=== PATIENT | female | born 1955 | race African-American/Black ===

== ENCOUNTER 2016-04-22 02:34 | Emergency (ER) | payer OTHER ==
[2016-04-22 02:51] VITALS: TEMP 97.4; BMI 34.3
--- NOTE | 2016-04-22 03:27 | PDOC ---
History of Present Illness - General Chief Complaint: Back Pain Stated Complaint: BACK PAIN Time Seen by Provider: 04/22/16 03:11 History Source: Patient Exam Limitations: No Limitations - History of Present Illness Initial Comments: 04/22/16 03:22 61yo Female patient presents to ED via EMS. Patient states she fell out of this this am, striking her back against a dresser. She denies head injury, neck injury/pain, or LOC. Patient states she take 2 types of pain medication due to history of back surgery in 2008. Patient reports she is on a Morphine pump and does not know the oral medication she currently takes for pain. Patient denies any other complaints at this time. Occurred: reports: just prior to arrival Severity: reports: mild Pain Location: reports: back Method of Injury: Yes: fall Modifying Factors: improves with: pain medication Loss of Consciousness: no loss of consciousness Associated Symptoms (Fall): denies symptoms Past History - Travel Traveled outside of the country in the last 30 days: No Close contact w/someone who was outside of country & ill: No - Past Medical History Allergies/Adverse Reactions: Allergies Allergy/AdvReac Type Severity Reaction Status Date / Time medroxyprogesterone acetate Allergy Severe stepehns Verified 04/22/16 02:42 [From Depo-Provera] josé syndrome amoxicillin trihydrate Allergy Verified 04/22/16 02:42 [From Augmentin] aspirin Allergy Verified 04/22/16 02:42 azithromycin [From Zithromax] Allergy Dewey Verified 04/22/16 02:42 José syndrome ciprofloxacin HCl Allergy Verified 04/22/16 02:42 [From Cipro] codeine [Codeine] Allergy Verified 04/22/16 02:42 Iodinated Contrast Media - Allergy Verified 04/22/16 02:42 Oral and [IV Dye, Iodine Containing Contrast ] ketorolac tromethamine Allergy Verified 04/22/16 02:42 [From Toradol] levofloxacin [From Levaquin] Allergy Verified 04/22/16 02:42 metronidazole [From Flagyl] Allergy Verified 04/22/16 02:42 nalbuphine HCl [From Nubain] Allergy CYANOSIS Verified 04/22/16 02:42 potassium clavulanate Allergy Verified 04/22/16 02:42 [From Augmentin] Shellfish Allergy Verified 04/22/16 02:42 sulfamethoxazole Allergy Verified 04/22/16 02:42 [From Bactrim] trimethoprim [From Bactrim] Allergy Verified 04/22/16 02:42 ivp dye Allergy Severe Swelling Uncoded 04/22/16 02:42 Home Medications: Ambulatory Orders Albuterol 0.083% Nebulizer Gisela [Ventolin 0.083% Nebulizer Soln -] 1 neb NEB Q4H PRN 07/04/14 Albuterol Sulfate Inhaler - [Ventolin HFA Inhaler -] 1 - 2 inh PO Q4H PRN Tiotropium [place] [Spiriva] 1.25 mcg IH DAILY 10/27/15 Metoclopramide HCl [Reglan] 10 mg PO AC #90 tablet 11/06/15 Docusate Sodium [Colace -] 200 mg PO DAILY capsule 02/21/16 Furosemide [Lasix -] 20 mg PO BIDLASIX tablet 02/21/16 Montelukast Na [Singulair -] 10 mg PO HS tablet 02/21/16 Pantoprazole Sodium [Protonix -] 40 mg PO DAILY tablet.ec 02/21/16 Polyethylene Glycol 3350 [Miralax 119 gm Btl -] 17 gm PO DAILY bottle 02/21/16 Pregabalin [Lyrica -] 75 mg PO BID capsule MDD 2 02/21/16 Anemia: Yes Asthma: Yes Cancer: No Cardiac Disorders: Yes CVA: No COPD: Yes CHF: Yes Dementia: No Diabetes: No GI Disorders: Yes (acid reflux, gastric pareisis) Disorders: Yes (Urinary retention) HTN: No Hypercholesterolemia: No Liver Disease: Yes (hep c) Suicide Attempt (Hx): No Seizures: No Thyroid Disease: No - Surgical History Abdominal Surgery: Yes Appendectomy: No Cardiac Surgery: Yes (PPM) Cholecystectomy: No Gastric Stapling: No Lung Surgery: No Neurologic Surgery: Yes (BACK SX WITH NERVE DAMAGE) Orthopedic Surgery: Yes (laminectomy x 2 in 2008 in [facility]) - Immunization History Immunization Up to Date: Yes - Psycho/Social/Smoking Cessation Hx Anxiety: No Suicidal Ideation: No Smoking Status: No Smoking History: Never smoked Have you smoked in the past 12 months: No Number of Cigarettes Smoked Daily: 0 Cigars Per Day: 0 Hx Alcohol Use: No Drug/Substance Use Hx: No Substance Use Type: None Hx Substance Use Treatment: No Trauma Specific PMHX - Complaint Specific PMHX Arthritis: No Back Injury: Yes Neck Injury: No Hx Sacro Iliac Joint Dysfunction: No Review of Systems - Review of Systems Able to Perform ROS?: Yes Is the patient limited Romanian proficient: No Constitutional: No: Chills, Fever Respiratory: No: Cough, Shortness of Breath Cardiac (ROS): No: Chest Pain ABD/GI: No: Abdominal Distended, Diarrhea, Nausea, Vomiting, Abdominal cramping : No: Dysuria, Flank Pain Musculoskeletal: Yes: Back Pain Integumentary: No: Bruising, Rash Neurological: No: Headache, Numbness, Tremors, Weakness, Dizziness Psychiatric: No: Stressors All Other Systems: Reviewed and Negative *Physical Exam - Vital Signs Last Vital Signs Temp Pulse Resp BP Pulse Ox 97.4 F L 85 18 128/87 100 04/22/16 02:45 04/22/16 02:45 04/22/16 02:45 04/22/16 02:45 04/22/16 02:45 - Physical Exam General Appearance: Yes: Appropriately Dressed, Other (Lethargic). No: Apparent Distress, Mild Distress, Moderate Distress, Severe Distress Neck: positive: Trachea midline, Supple Respiratory/Chest: positive: Lungs Clear, Normal Breath Sounds Cardiovascular: positive: Regular Rhythm, Regular Rate Gastrointestinal/Abdominal: positive: Normal Bowel Sounds, Soft. negative: Tender, Tenderness Lymphatic: negative: Adenopathy Musculoskeletal: positive: Normal Inspection, Other (L-S spinal tenderness on examination.). 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 PATIENT CURRENTLY HAS A MORPHINE PUMP ATTACHED AND IS REQUESTING DILAUDID FOR PAIN. PATIENT WAS TOLD SHE WILL NOT RECEIVE ANY DILAUDID, SHE WILL BE D/C'D TO HOME WITH F/U PCP. IF SYMPTOMS WORSEN OR SHE CHANGES HER MIND SHE MAY RETURN FOR X-RAYS. *DC/Admit/Observation/Transfer Diagnosis at time of Disposition: Back pain Qualifiers: Back pain location: low back pain Chronicity: acute Back pain laterality: bilateral Sciatica presence: without sciatica Qualified Code(s): M54.5 - Low back pain Fall Qualifiers: Encounter type: initial encounter Qualified Code(s): W19.XXXA - Unspecified fall, initial encounter - Discharge Dispostion Disposition: HOME Condition at time of disposition: Stable Admit: No - Patient Instructions Printed Discharge Instructions: How to Prevent Falls, DI for Low Back Pain Additional Instructions: FOLLOW UP WITH YOUR PRIMARY CARE PROVIDER OR PAIN MANAGEMENT TO MANAGE YOUR PAIN MEDICATIONS NEEDS. YOU MAY RETURN IF SYMPTOMS WORSEN OR YOU CHANGE YOUR MIND ABOUT X-RAY. TAKE YOUR MEDICATIONS PRESCRIBED. Print Language: MOROCCAN
[2016-04-22] MEDS ORDERED: KETOROLAC TROMETHAMINE 30 MG/1 ML VIAL IM ONE (04:34)
[2016-04-22] MEDS ORDERED: METHOCARBAMOL 500 MG TABLET PO ONE (04:34)
[2016-04-22] MEDS ORDERED: METHOCARBAMOL 500 MG TABLET ONE (04:46)
[2016-04-22] MEDS ORDERED: KETOROLAC TROMETHAMINE 30 MG/1 ML VIAL ONE (04:46)
[2016-04-22 09:04] VITALS: BP 139/79; PULSE 80
== END 2016-04-22 12:05 | disposition home or self-care (01) ==
LOC: JER 02:34
DX: M54.5 Low back pain (principal); W06.XXXA Fall from bed, initial encounter; Y93.89 Activity, other specified; Y92.032 Bedroom in apartment as the place of occurrence of the external cause; D64.9 Anemia, unspecified; J45.909 Unspecified asthma, uncomplicated; J44.9 Chronic obstructive pulmonary disease, unspecified; K21.9 Gastro-esophageal reflux disease without esophagitis; K31.84 Gastroparesis; B18.2 Chronic viral hepatitis C
CPT/HCPCS: 99281-25

== ENCOUNTER 2016-08-15 04:28 | Observation (INO) | payer OTHER ==
--- NOTE | 2016-08-15 04:51 | PDOC ---
History of Present Illness - General Stated Complaint: FALL Time Seen by Provider: 08/15/16 04:34 History Source: Patient Exam Limitations: No Limitations - History of Present Illness Initial Comments: 08/15/16 05:52 61-year-old female with a history of asthma, sarcoidosis, mitral valve prolapse , gastroparesis, IDDM, pacemaker/2013 presents to the emergency department with her son and complaining of a syncopal episode which caused pain to the top of her head and right side of her neck.. Patient states the last thing she remembers is sitting on a chair and watching television. Patient awoke on the bathroom floor and cannot recall how she got to the bathroom. Patient admits to positive LOC without dizziness, lightheadedness, chest pain, shortness of breath , abdominal pains, extremity numbness or tingling sensation. Patient states her head and neck pain is exacerbated on touch and alleviated at rest. Patient denies any other injuries. Timing/Duration: reports: 1 hour Past History - Past Medical History Allergies/Adverse Reactions: Allergies Allergy/AdvReac Type Severity Reaction Status Date / Time medroxyprogesterone acetate Allergy Severe stepehns Verified 08/15/16 05:07 [From Depo-Provera] josé syndrome amoxicillin trihydrate Allergy Verified 08/15/16 05:07 [From Augmentin] aspirin Allergy Verified 08/15/16 05:07 azithromycin [From Zithromax] Allergy Dewey Verified 08/15/16 05:07 José syndrome ciprofloxacin HCl Allergy Verified 08/15/16 05:07 [From Cipro] codeine [Codeine] Allergy Verified 08/15/16 05:07 Iodinated Contrast Media - Allergy Verified 08/15/16 05:07 Oral and [IV Dye, Iodine Containing Contrast ] ketorolac tromethamine Allergy Verified 08/15/16 05:07 [From Toradol] levofloxacin [From Levaquin] Allergy Verified 08/15/16 05:07 metronidazole [From Flagyl] Allergy Verified 08/15/16 05:07 nalbuphine HCl [From Nubain] Allergy CYANOSIS Verified 08/15/16 05:07 potassium clavulanate Allergy Verified 08/15/16 05:07 [From Augmentin] Shellfish Allergy Verified 08/15/16 05:07 sulfamethoxazole Allergy Verified 08/15/16 05:07 [From Bactrim] trimethoprim [From Bactrim] Allergy Verified 08/15/16 05:07 ivp dye Allergy Severe Swelling Uncoded 08/15/16 05:07 Home Medications: Ambulatory Orders Albuterol 0.083% Nebulizer Gisela [Ventolin 0.083% Nebulizer Soln -] 1 neb NEB Q4H PRN 07/04/14 Montelukast Na [Singulair -] 10 mg PO HS tablet 02/21/16 Pantoprazole Sodium [Protonix -] 40 mg PO DAILY tablet.ec 02/21/16 Pregabalin [Lyrica -] 75 mg PO BID capsule MDD 2 02/21/16 Furosemide [Lasix -] 40 mg PO BID 08/15/16 Insulin Glargine,Hum.rec.anlog [Basaglar Kwikpen U-100] 20 unit SQ HS 08/15/16 Insulin Lispro [Humalog] See Protocol SQ TID 08/15/16 Prednisone [Deltasone] 10 mg PO BID 08/15/16 Tiotropium [place] [Spiriva] 1 inh IH DAILY 08/15/16 Anemia: Yes Asthma: Yes Cancer: No Cardiac Disorders: Yes CVA: No COPD: Yes CHF: Yes Dementia: No Diabetes: No GI Disorders: Yes (acid reflux, gastric pareisis) Disorders: Yes (Urinary retention) HTN: No Hypercholesterolemia: No Liver Disease: Yes (hep c) Suicide Attempt (Hx): No Seizures: No Thyroid Disease: No - Surgical History Abdominal Surgery: Yes Appendectomy: No Cardiac Surgery: Yes (PPM) Cholecystectomy: No Gastric Stapling: No Lung Surgery: No Neurologic Surgery: Yes (BACK SX WITH NERVE DAMAGE) Orthopedic Surgery: Yes (laminectomy x 2 in 2008 in [facility]) - Immunization History Immunization Up to Date: Yes - Psycho/Social/Smoking Cessation Hx Anxiety: No Suicidal Ideation: No Smoking Status: No Smoking History: Never smoked Have you smoked in the past 12 months: No Number of Cigarettes Smoked Daily: 0 Cigars Per Day: 0 Hx Alcohol Use: No Drug/Substance Use Hx: No Substance Use Type: None Hx Substance Use Treatment: No Review of Systems - Review of Systems Able to Perform ROS?: Yes Comments:: 08/15/16 05:54 CONSTITUTIONAL: +LOC Absent: fever, chills, diaphoresis, generalized weakness, malaise, loss of appetite HEENT: Absent: rhinorrhea, nasal congestion, throat pain, throat swelling, difficulty swallowing, mouth swelling, ear pain, eye pain, visual Changes CARDIOVASCULAR: Absent: chest pain, loss of consciousness, palpitations, irregular heart rate, peripheral edema RESPIRATORY: Absent: cough, shortness of breath, dyspnea with exertion, orthopnea, wheezing, stridor, hemoptysis GASTROINTESTINAL: Absent: abdominal pain, abdominal distension, nausea, vomiting, diarrhea, constipation, melena, hematochezia GENITOURINARY: Absent: dysuria, frequency, urgency, hesitancy, hematuria, flank pain, genital pain MUSCULOSKELETAL: +right neck pain Absent: myalgia, arthralgia, joint swelling SKIN: Absent: rash, itching, pallor HEMATOLOGIC/IMMUNOLOGIC: Absent: easy bleeding, easy bruising, lymphadenopathy, frequent infections ENDOCRINE: Absent: unexplained weight gain, unexplained weight loss, heat intolerance, cold intolerance NEUROLOGIC: Pain to top of her head Absent: focal weakness or paresthesias, dizziness, unsteady gait, seizure, mental status changes, bladder or bowel incontinence PSYCHIATRIC: Absent: anxiety, depression, suicidal or homicidal ideation, hallucinations. 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 Awake and alert. No acute distress. HEENT: Normocephalic, atraumatic. PERRLA, EOMI. No conjunctival pallor. Sclera are non- icteric. Moist mucous membranes. Oropharynx is clear. NECK: Supple. Full ROM. No JVD. Carotid pulses 2+ and symmetric, without bruits. No thyromegaly. No lymphadenopathy. CARDIOVASCULAR: Regular rate and rhythm. No murmurs, rubs, or gallops. Distal pulses are 2+ and symmetric. PULMONARY: No evidence of respiratory distress. Lungs clear to auscultation bilaterally. No wheezing, rales or rhonchi. ABDOMINAL: Soft. Non-tender. Non-distended. No rebound or guarding. No organomegaly. Normoactive bowel sounds. MUSCULOSKELETAL Normal range of motion at all joints. No bony deformities or tenderness. No CVA tenderness. EXTREMITIES: No cyanosis. No clubbing. No edema. No calf tenderness. SKIN: Warm and dry. Normal capillary refill. No rashes. No jaundice. NEUROLOGICAL: Alert, awake, appropriate. Cranial nerves 2-12 intact. No deficits to light touch and temperature in face, upper extremities and lower extremities. No motor deficits in the in face, upper extremities and lower extremities. Normoreflexic in the upper and lower extremities. Normal speech. Toes are down- going bilaterally. Gait is normal without ataxia. PSYCHIATRIC: Cooperative. Good eye contact. Appropriate mood and affect. Heart Score/ECG Review - History History: Slightly suspicious - Electrocardiogram EKG: Normal - Age Age: >/= 65 - Risk Factors Risk Factors Heart Score: Yes Hx Diabetes, Yes Hx Obesity Based on the list above the patient has:: 1-2 risk factors - Troponin Troponin: </= normal limit - Score Heart Score - Total: 3 ED Treatment Course - LABORATORY CBC & Chemistry Diagram: 08/16/16 06:00 08/16/16 06:00 *DC/Admit/Observation/Transfer Diagnosis at time of Disposition: Syncope Qualifiers: Syncope type: unspecified Qualified Code(s): R55 - Syncope and collapse - Discharge Dispostion Disposition: HOME Condition at time of disposition: Improved
[2016-08-15 04:59] VITALS: BMI 35.7
[2016-08-15] MEDS ORDERED: SODIUM CHLORIDE 1,000 ML IV SCH (05:45)
[2016-08-15 06:25] LABS: BASOPHIL 0.4 % (0-2.0); EOSINOPHIL 0.1 % (0-4.5); MCH 24.1 pg (25.7-33.7); MCHC 31.3 g/dl (32.0-36.0); MEAN CELL VOLUME 77.1 fl (80-96); MEAN PLT VOLUME 7.6 fl (7.5-11.1); NEUTROPHILS 73.8 % (42.8-82.8); PLATELET COUNT 433 K/MM3 (134-434); RDW 18.9 % (11.6-15.6); WHITE BLOOD COUNT 8.1 K/mm3 (4.0-10.0)
[2016-08-15 06:40] LABS: ANION GAP 8 (8-16); BILIRUBIN,TOTAL 0.2 mg/dL (0.2-1.0); CALCIUM 8.4 mg/dL (8.5-10.1); CO2 33 mmol/L (21-32); CREATININE 0.8 mg/dL (0.55-1.02); GLUCOSE,RANDOM 232 mg/dL (74-106); SGOT/AST 14 U/L (15-37); SGPT/ALT 15 U/L (12-78); TOT PROT 7.8 g/dl (6.4-8.2)
[2016-08-15 06:42] LABS: ALK PHOS 74 U/L (45-117)
[2016-08-15 06:49] LABS: TROPONIN I < 0.02 ng/ml (0.00-0.05)
--- NOTE | 2016-08-15 07:26 | PDOC ---
*Physical Exam - Vital Signs Last Vital Signs Temp Pulse Resp BP Pulse Ox 98.2 F 86 20 126/76 100 08/15/16 07:01 08/15/16 07:01 08/15/16 07:01 08/15/16 07:01 08/15/16 07:01 ED Treatment Course - LABORATORY CBC & Chemistry Diagram: 08/15/16 06:00 08/15/16 06:00 - ADDITIONAL ORDERS Additional order review: Laboratory Results 08/15/16 08/15/16 06:00 06:00 Sodium 135 L Potassium 3.6 Chloride 94 L Carbon Dioxide 33 H Anion Gap 8 BUN 16 D Creatinine 0.8 Creat Clearance w eGFR > 60 Random Glucose 232 H D Calcium 8.4 L Total Bilirubin 0.2 D AST 14 L D ALT 15 D Alkaline Phosphatase 74 Creatine Kinase 58 Troponin I < 0.02 Total Protein 7.8 Albumin 3.0 L 08/15/16 06:00 RBC 4.08 MCV 77.1 L MCHC 31.3 L RDW 18.9 H MPV 7.6 Neutrophils % 73.8 D Lymphocytes % 21.1 D Monocytes % 4.6 Eosinophils % 0.1 Basophils % 0.4 Medical Decision Making - Medical Decision Making 08/15/16 07:25 Patient received in sign out from ALEXANDRU [email or web address] status post syncopal episode now complaining of headache. Patient pending imaging and will be admitted to hospitalist once labs and results are reviewed. 08/15/16 09:24 CT of the neck shows no acute findings including fracture or misalignment. Patient does have degenerative changes with loss of height superior endplate of T3. CT of the head shows no hemorrhage or acute intracranial findings. Will consult hospitalist to discuss admission. 08/15/16 09:34 Left EJ placed on first attempt without difficulty. #[address] and flushed without difficulty. Case discussed with hospitalist Dr. Iyer and will admit to telemetry observation status. *DC/Admit/Observation/Transfer Diagnosis at time of Disposition: Syncope Qualifiers: Syncope type: unspecified Qualified Code(s): R55 - Syncope and collapse - Discharge Dispostion Admit: Yes
--- NOTE | 2016-08-15 09:16 | EKG ---
Test Reason : Blood Pressure : / mmHG Vent. Rate : 073 BPM Atrial Rate : 073 BPM P-R Int : 138 ms QRS Dur : 066 ms QT Int : 374 ms P-R-T Axes : 036 000 040 degrees QTc Int : 412 ms NORMAL SINUS RHYTHM CANNOT RULE OUT ANTERIOR INFARCT , AGE UNDETERMINED ABNORMAL ECG WHEN COMPARED WITH ECG OF 21-MAR-2016 17:09, NO SIGNIFICANT CHANGE WAS FOUND Confirmed by EDUAR LINDER MD ([id number]) on 08/15/2016 9:16:02 AM Referred By: Confirmed By:EDUAR LINDER MD
--- NOTE | 2016-08-15 11:11 | HP ---
CHIEF COMPLAINT: Fall PCP: Ace Sorensen HISTORY OF PRESENT ILLNESS: 61 F with signficant PMHx of sarcoidosis with lung and cardiac involvement, previous syncope, VT s/p AICD(2012), chronic diastolic CHF and IDDM presents to ED s/p syncopal episode. She states that her daughter called EMS after she was found screaming in her bathroom last night. She states she remembers lying in bed watching TV then the next thing she remembers is waking up in bathroom.Does not know if she hit her head but did report headache and neck pain.Recently discharged from [facility] for treatment of UTI. She denies CP, SOB, urinary or bowel incontinence. abd. pain, palpitations, N/V. ER course was notable for: (1) EKG shows no change from previous. (2) CXR and chest CT ordered show atelectic changes of LLL. (3)Head CT (-) for IC bleed or acute pathology. Recent Travel: NO PAST MEDICAL HISTORY: cardiac and pulm sarcoidosis , VT s/p AICD in 2012, asthma , D CHf , Hep C, Dewey José, , chronic back pain, LLE weakness, IDDM , OSVALDO and GERD PAST SURGICAL HISTORY: L2-S1 fusion, tubal ligation, hysterectomy Social History: Smoking: Denies Alcohol: Denies Drugs: Denies Family History: Allergies medroxyprogesterone acetate [From Depo-Provera] Allergy (Severe, Verified 05:07) stepehns josé syndrome amoxicillin trihydrate [From Augmentin] Allergy (Verified 08/15/16 05:07) aspirin Allergy (Verified 08/15/16 05:07) azithromycin [From Zithromax] Allergy (Verified 08/15/16 05:07) Dewey José syndrome ciprofloxacin HCl [From Cipro] Allergy (Verified 08/15/16 05:07) codeine [Codeine] Allergy (Verified 08/15/16 05:07) Iodinated Contrast Media - Oral and [IV Dye, Iodine Containing Contrast ] Allergy (Verified 08/15/16 05:07) ketorolac tromethamine [From Toradol] Allergy (Verified 08/15/16 05:07) levofloxacin [From Levaquin] Allergy (Verified 08/15/16 05:07) metronidazole [From Flagyl] Allergy (Verified 08/15/16 05:07) nalbuphine HCl [From Nubain] Allergy (Verified 08/15/16 05:07) CYANOSIS potassium clavulanate [From Augmentin] Allergy (Verified 08/15/16 05:07) Shellfish Allergy (Verified 08/15/16 05:07) sulfamethoxazole [From Bactrim] Allergy (Verified 08/15/16 05:07) trimethoprim [From Bactrim] Allergy (Verified 08/15/16 05:07) ivp dye Allergy (Severe, Uncoded 08/15/16 05:07) Swelling HOME MEDICATIONS: Home Medications Medication Instructions Recorded Albuterol 0.083% Nebulizer Gisela 1 neb NEB Q4H PRN 07/04/14 [Ventolin 0.083% Nebulizer Soln -] Montelukast Na [Singulair -] 10 mg PO HS tablet 02/21/16 Pantoprazole Sodium [Protonix -] 40 mg PO DAILY tablet.ec 02/21/16 Pregabalin [Lyrica -] 75 mg PO BID capsule MDD 2 02/21/16 Furosemide [Lasix -] 40 mg PO BID 08/15/16 Insulin Glargine,Hum.rec.anlog 20 unit SQ HS 08/15/16 [Basaglar Kwikpen U-100] Insulin Lispro [Humalog] 2 unit SQ TID 08/15/16 Prednisone [Deltasone] 20 mg PO BID 08/15/16 Tiotropium [place] [Spiriva] 1 inh IH DAILY 08/15/16 REVIEW OF SYSTEMS CONSTITUTIONAL: Absent: fever, chills, diaphoresis, generalized weakness, malaise, loss of appetite, weight change HEENT: Absent: rhinorrhea, nasal congestion, throat pain, throat swelling, difficulty swallowing, mouth swelling, ear pain, eye pain, visual changes CARDIOVASCULAR: Absent: chest pain, syncope, palpitations, irregular heart rate, lightheadedness , peripheral edema RESPIRATORY: Absent: cough, shortness of breath, dyspnea with exertion, orthopnea, wheezing, stridor, hemoptysis GASTROINTESTINAL: Absent: abdominal pain, abdominal distension, nausea, vomiting, diarrhea, constipation, melena, hematochezia GENITOURINARY: Absent: dysuria, frequency, urgency, hesitancy, hematuria, flank pain, genital pain MUSCULOSKELETAL: back pain, neck pain Absent: myalgia, arthralgia, joint swelling, SKIN: Absent: rash, itching, pallor HEMATOLOGIC/IMMUNOLOGIC: Absent: easy bleeding, easy bruising, lymphadenopathy, frequent infections ENDOCRINE: Absent: unexplained weight gain, unexplained weight loss, heat intolerance, cold intolerance NEUROLOGIC: headache, focal weakness Absent: or paresthesias, dizziness, unsteady gait, seizure, mental status changes, bladder or bowel incontinence PSYCHIATRIC: Absent: anxiety, depression, suicidal or homicidal ideation, hallucinations. PHYSICAL EXAMINATION Vital Signs - 24 hr 08/15/16 08/15/16 08/15/16 04:35 04:53 07:01 Temperature 98 F 98.2 F Pulse Rate 86 Pulse Rate [ 86 Left] Respiratory 21 20 Rate Blood Pressure 148/95 Blood Pressure 126/76 [Left Arm] O2 Sat by Pulse 99 99 100 Oximetry (%) GENERAL:AAO x3 in no acute distress. HEAD: NC/AT EYES: Pupils equal, round and reactive to light, extraocular movements intact, sclera anicteric, conjunctiva clear. No lid lag. EARS, NOSE, THROAT: Dry mucous membranes. NECK: Normal range of motion, supple without lymphadenopathy, JVD, or masses. LUNGS: Breath sounds equal, clear to auscultation bilaterally. No wheezes, and no crackles. No accessory muscle use. HEART: Regular rate and rhythm, normal S1 and S2 without murmur, rub or gallop. ABDOMEN: Soft, nontender, not distended, normoactive bowel sounds, no guarding, no rebound, no masses. No hepatomegaly or splenomegaly. MUSCULOSKELETAL: Normal range of motion at all joints. No bony deformities or tenderness. No CVA tenderness. UPPER EXTREMITIES: 2+ pulses, warm, well-perfused. No cyanosis. No clubbing. No peripheral edema. LOWER EXTREMITIES: 2+ pulses, warm, well-perfused. No calf tenderness.Bilateral 2+ pitting edema NEUROLOGICAL: Cranial nerves II-XII intact. Normal speech.gait not observed. PSYCHIATRIC: depressed mood and affect. SKIN: Warm, dry, normal turgor, no rashes or lesions noted, normal capillary refill. Laboratory Results - last 24 hr 08/15/16 08/15/16 08/15/16 06:00 06:00 06:00 WBC 8.1 RBC 4.08 Hgb 9.8 L Hct 31.5 L MCV 77.1 L MCHC 31.3 L RDW 18.9 H Plt Count 433 MPV 7.6 Neutrophils % 73.8 D Lymphocytes % 21.1 D Monocytes % 4.6 Eosinophils % 0.1 Basophils % 0.4 Sodium 135 L Potassium 3.6 Chloride 94 L Carbon Dioxide 33 H Anion Gap 8 BUN 16 D Creatinine 0.8 Creat Clearance w eGFR > 60 Random Glucose 232 H D Calcium 8.4 L Total Bilirubin 0.2 D AST 14 L D ALT 15 D Alkaline Phosphatase 74 Creatine Kinase 58 Troponin I < 0.02 Total Protein 7.8 Albumin 3.0 L IMAGING: * CT/CERVICAL SPINE CT W/O CONTR History provided: Fall. Sequential axial images were obtained through the cervical spine from the base of the skull to the thoracic inlet. Coronal and sagittal reconstructed images were also performed. There is no evidence of fracture, subluxation or acute bony abnormalities. There are mild degenerative arthritic changes present, most marked at C4-5 and C5-6. The spinal canal is widely patent with no evidence of cord compromise. IMPRESSION: Mild degenerative arthritis with no fracture or acute pathology. Reported By: Trevor Jeffery MD 08/15/16 2575 * SPINE-THORACIC Thoracic spine: Unspecified cervical spine fracture AP view shows an overlying brace, pacemaker, large heart, weak inspiration with central increased markings but grossly intact thoracic spine. The lateral view shows a normal thoracic kyphosis with no sign of blastic or lytic changes and some minimal vertebral wedging of a midthoracic level. If symptoms persist, further imaging may be of help. Reported By: Mat Price MD 06/12/16 7628 * CT/HEAD CT WITHOUT CONTRAST HISTORY PROVIDED: Fall TECHNIQUE: Sequential axial images were obtained from the base of the skull to the vertex. There is no evidence of acute intracranial hemorrhage, mass lesions or infarctions. There is a mild degree of diffuse cerebral atrophy with sulcal widening and ventricular dilatation. Hypodense changes are noted throughout the periventricular white matter consistent with chronic, small vessel ischemia. There is no evidence of fracture or acute bony abnormalities. IMPRESSION: No evidence of acute intracranial pathology. Reported By: Trevor Jeffery MD 09/26 4768 ASSESSMENT/PLAN: 61 F with signficant PMHx of sarcoidosis with lung and cardiac involvement, previous syncope, VT s/p AICD(2012), chronic diastolic CHF and IDDM admitted to telemetry for w/u of syncopal episode. Problem List - Problem (1) Syncope Assessment/Plan: * Concern for cardiac cause of syncopal episode. vaso-vagal and less likely seizure. * Will admit to tele * Interrogate AICD by [employer]. * I have obtained recent ECHO done on recent Alexi admission. * Consulted cardiology Dr. Mederos. * Neuro checks Q4H- assess for facial droop, asymmetry, slurred speech, and decreased muscle tone. (2) Dysuria Assessment/Plan: * UA sent if positive will send for Cultures and treat. (3) Diastolic CHF Assessment/Plan: * No signs of acute exacerbation (no jvd and clear lungs.) * Will continue with home dose of Lasix * I/O's and daily weights. * Low sodium diet. (4) Asthma Assessment/Plan: * Well controlled at this time * standing and prn duonebs. * continue inh. * Aclidinium [place] (Tudorza -) 1 puff IH BID EYAL * Albuterol Sulfate (Ventolin 0.5% -) 1 amp NEB Q4H PRN * Montelukast Sodium (Singulair -) 10 mg PO HS EYAL (5) Sarcoidosis (6) IDDM (insulin dependent diabetes mellitus) Assessment/Plan: * Continue Levemir and ISS * BGM ACHS * ADA diet (7) DVT prophylaxis Assessment/Plan: * LE edema will order LE doppler. * Lovenox 40mg SQ daily. Visit type - Emergency Visit Emergency Visit: Yes ED Registration Date: 08/15/16 Care time: The patient presented to the Emergency Department on the above date and was hospitalized for further evaluation of their emergent condition. - New Patient This patient is new to me today: Yes Date on this admission: 08/15/16 - Critical Care Critical Care patient: No
[2016-08-15] MEDS ORDERED: ALBUTEROL SO4 0.083% IH SOL 2.5 MG/3 ML VIAL.NEB. NEB PRN (11:54)
[2016-08-15] MEDS ORDERED: ALBUTEROL SO4 2.5/IPRATROPIUM 0.5 INH SOL 3 ML VIAL.NEB. NEB PRN (11:55)
--- NOTE | 2016-08-15 12:08 | PN ---
Teaching Attending Note Name of Resident: Lorenzo Cutler ATTENDING PHYSICIAN STATEMENT I saw and evaluated the patient. I reviewed the resident's note and discussed the case with the resident. I agree with the resident's findings and plan as documented. SUBJECTIVE: CC: syncope HPI: 61 y/o lady with h/o cardiac and pulm sarcoidosis , VT s/p AICD in 2013, h /o Seizures, asthma , D CHf , Hep C, Dewey José, L2-S1 fusion, chronic back pain, LLE weakness, IDDM, OSVALDO and GERD who presented with a syncope. last night , she was watching TV, then she woke up in bathroom screaming, she denied any confusion after syncope, denied any CP, SOB, palpitations, urinary incontinence or tongue pain. was not able to get up and daughter had to help, she reported neck pain and head pain. She had a syncopal episode 2 months ago , which was also similar ( sudden onset , while sitting ) reports LLE edema > R , with no worsening, has been compliant withher lasix. reports dysuria x 2 days . was admitted to [facility] 1 month ago for UTI. OBJECTIVE: VS reviewed. NAD, NC< AT , no JVD, MMM. EOMI. CV: RRR, no MRG , no JVD Lungs : CTAB Abd : soft, TTP in epigastric area , with no rebound tenderness or guarding , ND , NL BS Ext: b/l LE edema L > R . L leg with erythema and increased warmth . per pt chronic . DP 2+ b/l MS: TTP over R lower ribs . TTP over R/L paraspinal muscles neuro : symmetric face , no facial droop, NL facial sensation , EOMI, round equal pupils , reactive to light , tongue and uvula at mid line . Strength 5/5 in upper extremities proximally and distally. LLE : she refused to move ( " I can't move it ") . RLE : 4/5 hip flexion and knee flexion and extension. 5/5 plantar flexion and dorsiflexion reflexes : 2+ biceps b/l. 1+ knee jerk and ankle jerk b/l decreased sensatio to light touch on R foot and leg. absent sensatio to light touch on L foot and leg ASSESSMENT AND PLAN: 61 y/o lady with h/o cardiac and pulm sarcoidosis , VT s/p AICD in 2013, h/o Seizures, asthma , D CHf , Hep C, Dewey Kumar, L2-S1 fusion, chronic back pain, LLE weakness, IDDM, OSVALDO and GERD who presented with a syncope 1- Syncope: DDx is broad but given pt h/o cardiac sarcoidosis , and h/o ventricular arrhythmias, as well as the sudden onset of event there is concern fro cardiac arrhythmias as a cause. of course , Vaso-vagal syncope ( since in bathroom) , and orthostatic hypotension ( confirmed on resident's exam) are in picture less likely seizure - tele - interrogation of her AICD - obtain echo report from [facility] ( 1 month ago) - will consult card - repeat trop - EKG reviewed, and last echo 10/25 reviewed ( Nl EF, pulm HTN) - neuro checks 2- dysuria : will check UA . if positive , will check urine cx, 3- Fall : trauma w/u did not show neck or head Fx or bleed - check R Rib xray , due to tenderness on exam. 4- H/O Chronic D CHF: patient does not seem to be in acute heart failure . Has clear lungs, no JVD, and chronic LE edema ( improved per her) . Cxray has poor inspiratory effect. - cont her lasix 40 BID po - monitor BP as it was slightly elevated in ER. will repeat . - obtain echo report . 5- h/o Sarcoidosis with lung and cardiac involvement: cont her home prednisone 6- h/o Ashtma: not active . cont inhalers 7- IDDM: cont levemir and SSI 8- check US of LLE to r/o DVT DVT px :lovenox
[2016-08-15] MEDS ORDERED: ALBUTEROL SO4 0.5 % INH SOLN 2.5 MG/0.5 ML VIAL.NEB. NEB PRN (12:15)
[2016-08-15 12:32] LABS: URINE APPEARANCE CLEAR; URINE BILIRUBIN NEGATIVE (NEGATIVE); URINE BLOOD NEGATIVE (NEGATIVE); URINE COLOR LTYELLOW; URINE GLUCOSE (UA) NEGATIVE (NEGATIVE); URINE KETONE NEGATIVE (NEGATIVE); URINE LEUK ESTERASE NEGATIVE (NEGATIVE); URINE NITRITE NEGATIVE (NEGATIVE); URINE PROTEIN NEGATIVE (NEGATIVE); URINE UROBILINOGEN NEGATIVE E.U./dl (0.2-1.0)
[2016-08-15 13:42] LABS: TROPONIN I < 0.02 ng/ml (0.00-0.05)
[2016-08-15] MEDS ORDERED: ACETAMINOPHEN 500 MG TABLET (FP) PO ONE (13:46)
[2016-08-15] MEDS ORDERED: morphine CARPU-JECT 4 MG/1 ML DISP.SYRIN IVPUSH ONE (14:15)
[2016-08-15] MEDS ORDERED: FUROSEMIDE 40 MG TABLET (FP) ONE (14:36)
[2016-08-15] MEDS ORDERED: morphine CARPU-JECT 4 MG/1 ML DISP.SYRIN ONE (14:36)
[2016-08-15] MEDS: FUROSEMIDE 20 MG TABLET (FP) PO SCH (14:37)
[2016-08-15] MEDS: PREGABALIN 75 MG CAPSULE PO SCH (21:17)
[2016-08-15] MEDS: predniSONE 10 MG TABLET (UD) PO SCH (21:18)
[2016-08-15] MEDS ORDERED: MONTELUKAST NA 10 MG TABLET PO SCH (22:00)
[2016-08-15] MEDS ORDERED: HEPARIN NA (PORCINE) 5,000 UNITS/ML 1ML VIAL SQ SCH (22:00)
[2016-08-15] MEDS: ACLIDINIUM BROMIDE 400 MCG/INH AERO.POWD IH SCH (22:36)
--- NOTE | 2016-08-16 00:05 | CON.CARD ---
Consult Consult Specialty:: cardiology Reason for Consultation:: syncope - History of Present Illness Chief Complaint: Presently feels tired (chronic) History of Present Illness: 61-year-old black female with a history of asthma, sarcoidosis, mitral valve prolapse, gastroparesis, IDDM, pacemaker/2013, s/p spinal fusion, ?wheelchair bound after accident years ago, chronic bilateral L>R LE swelling, presents to the emergency department with her son and complaining of a syncopal episode which caused pain to the top of her head and right side of her neck. Patient states the last thing she remembers is sitting on a chair and watching television. Patient awoke on the bathroom floor and cannot recall how she got to the bathroom. Patient admits to LOC without dizziness, lightheadedness, chest pain, shortness of breath, abdominal pains, extremity numbness or tingling sensation. Patient states her head and neck pain is exacerbated on touch and alleviated at rest. Patient denies any other injuries. - History Source History Provided By: Patient, Medical Record Limitations to Obtaining History: Poor Historian - Past Medical History Cardio/Vascular: Yes: CHF, Other (Sarcoidosis with cardiac involvement and history of VT s/p ICD) Pulmonary: Yes: Asthma, Sleep Apnea, Other (Sarcoidosis with cardiac involvement ) Gastrointestinal: Yes: GERD Hepatobiliary: Yes: Hepatitis C Reproductive: Yes: Postmenopausal ...: No Heme/Onc: Yes: Anemia Infectious Disease: Yes: Other (HEP C) Musculoskeletal: Yes: Chronic low back pain (spinal cord stimulator) Rheumatology: Yes: Sarcoidosis Additional Medical History: in wheelchair after accident many years ago. Spinal cord stimulator. Multiple drug allergies. History of Ferrer José syndrome - Past Surgical History Past Surgical History: Yes: Permanent Pacemaker (ICD. ) - Alcohol/Substance Use Hx Alcohol Use: No - Smoking History Smoking history: Never smoked Have you smoked in the past 12 months: No Aproximately how many cigarettes per day: 0 - Social History ADL: Family Assistance History of Recent Travel: No Home Medications - Allergies Allergies/Adverse Reactions: Allergies Allergy/AdvReac Type Severity Reaction Status Date / Time medroxyprogesterone acetate Allergy Severe stepehns Verified 08/15/16 05:07 [From Depo-Provera] josé syndrome amoxicillin trihydrate Allergy Verified 08/15/16 05:07 [From Augmentin] aspirin Allergy Verified 08/15/16 05:07 azithromycin [From Zithromax] Allergy Dewey Verified 08/15/16 05:07 José syndrome ciprofloxacin HCl Allergy Verified 08/15/16 05:07 [From Cipro] codeine [Codeine] Allergy Verified 08/15/16 05:07 Iodinated Contrast Media - Allergy Verified 08/15/16 05:07 Oral and [IV Dye, Iodine Containing Contrast ] ketorolac tromethamine Allergy Verified 08/15/16 05:07 [From Toradol] levofloxacin [From Levaquin] Allergy Verified 08/15/16 05:07 metronidazole [From Flagyl] Allergy Verified 08/15/16 05:07 nalbuphine HCl [From Nubain] Allergy CYANOSIS Verified 08/15/16 05:07 potassium clavulanate Allergy Verified 08/15/16 05:07 [From Augmentin] Shellfish Allergy Verified 08/15/16 05:07 sulfamethoxazole Allergy Verified 08/15/16 05:07 [From Bactrim] trimethoprim [From Bactrim] Allergy Verified 08/15/16 05:07 ivp dye Allergy Severe Swelling Uncoded 08/15/16 05:07 - Home Medications Home Medications: Ambulatory Orders Albuterol 0.083% Nebulizer Gisela [Ventolin 0.083% Nebulizer Soln -] 1 neb NEB Q4H PRN 07/04/14 Montelukast Na [Singulair -] 10 mg PO HS tablet 02/21/16 Pantoprazole Sodium [Protonix -] 40 mg PO DAILY tablet.ec 02/21/16 Pregabalin [Lyrica -] 75 mg PO BID capsule MDD 2 02/21/16 Furosemide [Lasix -] 40 mg PO BID 08/15/16 Insulin Glargine,Hum.rec.anlog [Basaglar Kwikpen U-100] 20 unit SQ HS 08/15/16 Insulin Lispro [Humalog] 2 unit SQ TID 08/15/16 Prednisone [Deltasone] 10 mg PO BID 08/15/16 Tiotropium [place] [Spiriva] 1 inh IH DAILY 08/15/16 Family Disease History - Family Disease History Family History: Denies Review of Systems - Review of Systems Constitutional: reports: Lethargy Eyes: reports: No Symptoms HENT: reports: No Symptoms Neck: reports: No Symptoms Cardiovascular: reports: No Symptoms Respiratory: reports: No Symptoms Gastrointestinal: reports: No Symptoms Genitourinary: reports: No Symptoms Breasts: reports: No Symptoms Reported Musculoskeletal: reports: Decreased ROM Integumentary: reports: No Symptoms Neurological: reports: Syncope Psychiatric: reports: Altered Sleep Pattern, Anxiety - Risk Factors Known Risk Factors: Yes: Age, Physical Inactivity Vital Signs: Vital Signs Temperature 98 F 08/15/16 15:18 Pulse Rate 71 08/15/16 15:18 Respiratory Rate 18 08/15/16 18:14 Blood Pressure 116/74 08/15/16 15:18 O2 Sat by Pulse Oximetry (%) 99 08/15/16 18:14 Constitutional: Yes: Calm Eyes: Yes: WNL HENT: Yes: WNL Neck: Yes: WNL Respiratory: Yes: Regular Gastrointestinal: Yes: Soft Renal/: No: Anuria Cardiovascular: Yes: Regular Rate and Rhythm JVD: No Carotid Bruit: No PMI: Non-Displaced Heart Sounds: Yes: S1, S2 Extremities: Yes: Cool Edema: Yes Edema: LLE: 2+, RLE: 1+ Peripheral Pulses WNL: Yes Integumentary: Yes: WNL Neurological: Yes: Alert, Oriented, Weakness Psychiatric: Yes: Alert, Oriented - Other Data Labs, Other Data: Troponin, BNP 08/15/16 13:00 Troponin I < 0.02 Troponin, BNP 08/15/16 13:00 Troponin I < 0.02 Ejection Fraction %: LVEF > or = 40 % Imaging - Results Chest X-ray: Image Reviewed (chronic congestive changes) EKG: Image Reviewed (NSR) Problem List - Problems (1) Dysuria Code(s): R30.0 - DYSURIA (2) IDDM (insulin dependent diabetes mellitus) Code(s): E11.9 - TYPE 2 DIABETES MELLITUS WITHOUT COMPLICATIONS Z79.4 - MCC (CURRENT) USE OF INSULIN (3) Syncope Assessment/Plan: orthostatic vital signs. carotid artery US. TNI <0.02 x 2. Hx VT-->ICD 2013. R/o cardiac arrhythmia as etiology of syncope. ICD interrogation. Maintain electrolytes WNL. On furosemide; avoid excessive dehydration. Code(s): R55 - SYNCOPE AND COLLAPSE Qualifiers: Syncope type: unspecified Qualified Code(s): R55 - Syncope and collapse (4) Acute on chronic diastolic (congestive) heart failure Assessment/Plan: ECHO: normal LVEF Code(s): I50.33 - ACUTE ON CHRONIC DIASTOLIC (CONGESTIVE) HEART FAILURE (5) COPD (chronic obstructive pulmonary disease) Code(s): J44.9 - CHRONIC OBSTRUCTIVE PULMONARY DISEASE, UNSPECIFIED Qualifiers : COPD type: COPD with acute exacerbation Qualified Code(s): J44.1 - Chronic obstructive pulmonary disease with (acute) exacerbation (6) Cellulitis Code(s): L03.90 - CELLULITIS, UNSPECIFIED (7) ICD (implantable cardioverter-defibrillator), dual, in situ Code(s): Z95.810 - PRESENCE OF AUTOMATIC (IMPLANTABLE) CARDIAC DEFIBRILLATOR (8) Obstructive sleep apnea Code(s): G47.33 - OBSTRUCTIVE SLEEP APNEA (ADULT) (PEDIATRIC) (9) SOB (shortness of breath) Code(s): R06.02 - SHORTNESS OF BREATH (10) Sarcoidosis of lung Code(s): D86.0 - SARCOIDOSIS OF LUNG
[2016-08-16] MEDS ORDERED: morphine CARPU-JECT 2 MG/1 ML DISP.SYRIN IVPUSH ONE (01:00)
[2016-08-16] MEDS: FUROSEMIDE 20 MG TABLET (FP) PO SCH ×2 (06:16→14:18)
[2016-08-16 08:20] LABS: CALCIUM 8.8 mg/dL (8.5-10.1); COCKROFT - GAULT 96.764; CREATININE 0.8 mg/dL (0.55-1.02); MAGNESIUM 1.7 mg/dL (1.8-2.4); PHOSPHOROUS 4.9 mg/dL (2.5-4.9)
[2016-08-16 08:21] LABS: BASOPHIL 0.9 % (0-2.0); EOSINOPHIL 0.5 % (0-4.5); MCH 24.7 pg (25.7-33.7); MCHC 31.6 g/dl (32.0-36.0); MEAN PLT VOLUME 7.7 fl (7.5-11.1); NEUTROPHILS 74.7 % (42.8-82.8); PLATELET COUNT 415 K/MM3 (134-434); RDW 18.9 % (11.6-15.6); WHITE BLOOD COUNT 8.2 K/mm3 (4.0-10.0)
[2016-08-16] MEDS ORDERED: PT OWN MED DRAWER 7, Y5N ONE ×2 (09:30→10:22)
[2016-08-16] MEDS: predniSONE 10 MG TABLET (UD) PO SCH (09:35)
[2016-08-16] MEDS: PREGABALIN 75 MG CAPSULE PO SCH (09:35)
[2016-08-16] MEDS ORDERED: ENOXAPARIN NA (PORCINE) 40 MG/0.4 ML DISP.SYRIN SQ SCH (10:00)
[2016-08-16] MEDS ORDERED: PANTOPRAZOLE 40 MG TABLET (FP) PO SCH (10:00)
--- NOTE | 2016-08-16 10:28 | PN ---
Progress Note, Physician Chief Complaint: Pt OOB in chair; no dizziness, chest pain, or dyspnea; had a mild headache overnight. History of Present Illness: 61-year-old black female with a history of "asthma" (did not start until late adulthood; ?related to sarcoid), "cardiac and pulmonary"sarcoidosis, mitral valve prolapse, gastroparesis, IDDM, pacemaker/2013, s/p spinal fusion, ? wheelchair bound after accident years ago, chronic bilateral L>R LE swelling, presents to the emergency department with her son and complaining of a syncopal episode which caused pain to the top of her head and right side of her neck. Patient states the last thing she remembers is sitting on a chair and watching television. Patient awoke on the bathroom floor and cannot recall how she got to the bathroom. Patient admits to LOC without dizziness, lightheadedness, chest pain, shortness of breath, abdominal pains, extremity numbness or tingling sensation. Patient states her head and neck pain is exacerbated on touch and alleviated at rest. Patient denies any other injuries. - Current Medication List Current Medications: Active Medications Aclidinium [place] (Tudorza -) 1 puff IH BID [facility] Last Admin: 08/15/16 22:36 Dose: Not Given Albuterol Sulfate (Ventolin 0.5% -) 1 amp NEB Q4H PRN PRN Reason: SHORT OF BREATH/WHEEZING Enoxaparin Sodium (Lovenox -) 40 mg SQ DAILY [facility] Last Admin: 08/16/16 09:36 Dose: 40 mg Furosemide (Lasix -) 40 mg PO BID@0600,1400 [facility] Last Admin: 08/16/16 06:16 Dose: 40 mg Montelukast Sodium (Singulair -) 10 mg PO HS [facility] Last Admin: 08/15/16 21:18 Dose: 10 mg Pantoprazole Sodium (Protonix -) 40 mg PO DAILY [facility] Last Admin: 08/16/16 09:36 Dose: 40 mg Prednisone (Deltasone -) 10 mg PO BID [facility] Last Admin: 08/16/16 09:35 Dose: 10 mg Pregabalin (Lyrica -) 75 mg PO BID [facility] Last Admin: 08/16/16 09:35 Dose: 75 mg - Objective Vital Signs: Vital Signs Temperature 98.4 F 08/16/16 06:00 Pulse Rate 84 08/16/16 06:00 Respiratory Rate 20 08/16/16 06:00 Blood Pressure 134/82 08/16/16 06:00 O2 Sat by Pulse Oximetry (%) 99 08/15/16 22:00 Constitutional: Yes: No Distress, Anxious Eyes: Yes: WNL Labs: CBC, BMP 08/16/16 06:00 08/16/16 06:00 Problem List - Problems (1) Dysuria Code(s): R30.0 - DYSURIA (2) IDDM (insulin dependent diabetes mellitus) Code(s): E11.9 - TYPE 2 DIABETES MELLITUS WITHOUT COMPLICATIONS Z79.4 - [employer] (CURRENT) USE OF INSULIN (3) Syncope Code(s): R55 - SYNCOPE AND COLLAPSE Qualifiers: Syncope type: unspecified Qualified Code(s): R55 - Syncope and collapse (4) Acute on chronic diastolic (congestive) heart failure Code(s): I50.33 - ACUTE ON CHRONIC DIASTOLIC (CONGESTIVE) HEART FAILURE (5) COPD (chronic obstructive pulmonary disease) Code(s): J44.9 - CHRONIC OBSTRUCTIVE PULMONARY DISEASE, UNSPECIFIED Qualifiers : COPD type: COPD with acute exacerbation Qualified Code(s): J44.1 - Chronic obstructive pulmonary disease with (acute) exacerbation (6) Cellulitis Code(s): L03.90 - CELLULITIS, UNSPECIFIED (7) ICD (implantable cardioverter-defibrillator), dual, in situ Code(s): Z95.810 - PRESENCE OF AUTOMATIC (IMPLANTABLE) CARDIAC DEFIBRILLATOR (8) Obstructive sleep apnea Code(s): G47.33 - OBSTRUCTIVE SLEEP APNEA (ADULT) (PEDIATRIC) (9) SOB (shortness of breath) Code(s): R06.02 - SHORTNESS OF BREATH (10) Sarcoidosis of lung Code(s): D86.0 - SARCOIDOSIS OF LUNG
[2016-08-16] MEDS: ACLIDINIUM BROMIDE 400 MCG/INH AERO.POWD IH SCH (14:18)
[2016-08-16 14:52] VITALS: BP 136/83; PULSE 88; TEMP 98.9
--- NOTE | 2016-08-16 15:08 | DS ---
Physical Examination Vital Signs: Vital Signs Temperature 98.9 F 08/16/16 14:00 Pulse Rate 88 08/16/16 14:00 Respiratory Rate 18 08/16/16 14:00 Blood Pressure 136/83 08/16/16 14:00 O2 Sat by Pulse Oximetry (%) 96 08/16/16 07:30 Findings/Remarks: denies any fever or chills, denies any SOB. has no complaints today NAD, NC, AT , no JVD, MMM. EOMI. CV: RRR, no MRG , no JVD Lungs : CTAB Ext: improved b/l LE edema L > R DP 2+ b/l Labs: CBC, BMP 08/16/16 06:00 08/16/16 06:00 Discharge Summary Reason For Visit: SYNCOPE Current Active Problems DVT prophylaxis (Acute) Dysuria (Acute) Syncope (Acute) Diastolic CHF (Chronic) IDDM (insulin dependent diabetes mellitus) (Chronic) Hospital Course: Dc Diagnoses : 1- Syncope 2- fall Hospital course 61 y/o lady with h/o cardiac and pulm sarcoidosis , [place] s/p AICD in 2012, h/o Seizures, asthma , D CHf , Hep C, Dewey José, L2-S1 fusion, chronic back pain, LLE weakness, IDDM, OSVALDO and GERD who presented with a syncope. at presentation the Pt had nl labs, and nl vitals ( but positive orthostatic VS ) . her EKG did not show any acute ischemic changes and her neuro exam was non focal . DDx of her syncope was broad but given pt h/o cardiac sarcoidosis , and h/o ventricular arrhythmias, as well as the sudden onset of event there is concern for cardiac arrhythmias as a cause. So she was monitored on tele which did not show any events ( PVCs ) Probably orthostatic hypotension is what caused her sx. her ICD was interrogated , and reviewed by Dr. Jean . She is to follow as outpt she complained of dysuria , but UA was clean She was continued on her home lasix, and her edema improved . 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 take your lasix as prescribed . call MD with any concerns or questions Referrals: Ace Sorensen [Primary Care Provider] - 1 Week Disposition: VNS/HOME HEALTH CARE - Home Medications Comprehensive Discharge Medication List: Ambulatory Orders Albuterol 0.083% Nebulizer Gisela [Ventolin 0.083% Nebulizer Soln -] 1 neb NEB Q4H PRN 07/04/14 Montelukast Na [Singulair -] 10 mg PO HS tablet 02/21/16 Pantoprazole Sodium [Protonix -] 40 mg PO DAILY tablet.ec 02/21/16 Pregabalin [Lyrica -] 75 mg PO BID capsule MDD 2 02/21/16 Furosemide [Lasix -] 40 mg PO BID 08/15/16 Insulin Glargine,Hum.rec.anlog [Colinaglzia Ortiz U-100] 20 unit SQ HS 08/15/16 Insulin Lispro [Humalog] See Protocol SQ TID 08/15/16 Prednisone [Deltasone] 10 mg PO BID 08/15/16 Tiotropium Thatcher [Spiriva] 1 inh IH DAILY 08/15/16 This patient is new to me today: Yes Date on this admission: 08/16/16 Emergency Visit: No Critical Care patient: No - Discharge Referral Referred to [facility] No
[2016-08-16] MEDS ORDERED: INSULIN (NOVOLOG) ASPART 100 UNITS/ML 10ML VIAL SQ SCH (16:30)
== END 2016-08-16 17:40 | disposition home health service (06) ==
LOC: JER 04:28 → JERBED 09:37 → J4S 14:50
PROVIDERS: ADMIT Internal Medicine; ATTEND Internal Medicine
PROC: 3E033NZ Introduction of Analgesics, Hypnotics, Sedatives into Peripheral Vein, Percutaneous Approach (ICD-10-PCS; principal; 2016-08-15)
PROC: 3E013VG Introduction of Insulin into Subcutaneous Tissue, Percutaneous Approach (ICD-10-PCS; 2016-08-15)
PROC: 3E013GC Introduction of Other Therapeutic Substance into Subcutaneous Tissue, Percutaneous Approach (ICD-10-PCS; 2016-08-15)
PROC: 3E0F7GC Introduction of Other Therapeutic Substance into Respiratory Tract, Via Natural or Artificial Opening (ICD-10-PCS; 2016-08-15)
DX: R55 Syncope and collapse (principal); D86.89 Sarcoidosis of other sites; I47.2 Ventricular tachycardia; Z95.810 Presence of automatic (implantable) cardiac defibrillator; I50.33 Acute on chronic diastolic (congestive) heart failure; E11.9 Type 2 diabetes mellitus without complications; Z79.4 Long term (current) use of insulin; J45.909 Unspecified asthma, uncomplicated; J44.9 Chronic obstructive pulmonary disease, unspecified; I34.1 Nonrheumatic mitral (valve) prolapse; B18.2 Chronic viral hepatitis C; K21.9 Gastro-esophageal reflux disease without esophagitis; E66.9 Obesity, unspecified; Z68.35 Body mass index [BMI] 35.0-35.9, adult; Z88.1 Allergy status to other antibiotic agents; Z91.041 Radiographic dye allergy status; Z88.2 Allergy status to sulfonamides; M54.5 Low back pain; G89.29 Other chronic pain; G47.33 Obstructive sleep apnea (adult) (pediatric); Z98.1 Arthrodesis status; Z90.710 Acquired absence of both cervix and uterus; Z88.6 Allergy status to analgesic agent; Z91.81 History of falling; R30.0 Dysuria; L03.90 Cellulitis, unspecified; R06.02 Shortness of breath
CPT/HCPCS: 36415; 70450-TC; 71010-TC; 71111-TC; 72125-TC; 80048; 80053; 81003; 82550; 83735; 84100; 84484; 85025; 93005; 93010; 93971-TC; 99284-25; G0378

== ENCOUNTER 2016-09-04 12:33 | Emergency (ER) | payer OTHER ==
[2016-09-04 12:40] VITALS: BP 140/57; PULSE 81; TEMP 98.6; BMI 35.5
--- NOTE | 2016-09-04 15:49 | PDOC ---
History of Present Illness - General Chief Complaint: Injury Stated Complaint: O2 DEPNDANT FALL/ BUMP ON HEAD Time Seen by Provider: 09/04/16 14:27 History Source: Patient - History of Present Illness Occurred: reports: this morning Pain Location: reports: face Method of Injury: Yes: fall Past History - Past Medical History Allergies/Adverse Reactions: Allergies Allergy/AdvReac Type Severity Reaction Status Date / Time medroxyprogesterone acetate Allergy Severe stepehns Verified 09/04/16 12:35 [From Depo-Provera] josé syndrome amoxicillin trihydrate Allergy Verified 09/04/16 12:35 [From Augmentin] aspirin Allergy Verified 09/04/16 12:35 azithromycin [From Zithromax] Allergy Dewey Verified 09/04/16 12:35 José syndrome ciprofloxacin HCl Allergy Verified 09/04/16 12:35 [From Cipro] codeine [Codeine] Allergy Verified 09/04/16 12:35 Iodinated Contrast Media - Allergy Verified 09/04/16 12:35 Oral and [IV Dye, Iodine Containing Contrast ] ketorolac tromethamine Allergy Verified 09/04/16 12:35 [From Toradol] levofloxacin [From Levaquin] Allergy Verified 09/04/16 12:35 metronidazole [From Flagyl] Allergy Verified 09/04/16 12:35 nalbuphine HCl [From Nubain] Allergy CYANOSIS Verified 09/04/16 12:35 potassium clavulanate Allergy Verified 09/04/16 12:35 [From Augmentin] Shellfish Allergy Verified 09/04/16 12:35 sulfamethoxazole Allergy Verified 09/04/16 12:35 [From Bactrim] trimethoprim [From Bactrim] Allergy Verified 09/04/16 12:35 ivp dye Allergy Severe Swelling Uncoded 09/04/16 12:35 Home Medications: Ambulatory Orders Albuterol 0.083% Nebulizer Gisela [Ventolin 0.083% Nebulizer Soln -] 1 neb NEB Q4H PRN 07/04/14 Montelukast Na [Singulair -] 10 mg PO HS tablet 02/21/16 Pantoprazole Sodium [Protonix -] 40 mg PO DAILY tablet.ec 02/21/16 Pregabalin [Lyrica -] 75 mg PO BID capsule MDD 2 02/21/16 Furosemide [Lasix -] 40 mg PO BID 08/15/16 Insulin Glargine,Hum.rec.anlog [Basaglar Kwikpen U-100] 20 unit SQ HS 08/15/16 Insulin Lispro [Humalog] See Protocol SQ TID 08/15/16 Prednisone [Deltasone] 10 mg PO BID 08/15/16 Tiotropium Baldwin [Spiriva] 1 inh IH DAILY 08/15/16 Anemia: Yes Asthma: Yes Cancer: No Cardiac Disorders: Yes CVA: No COPD: Yes CHF: Yes Dementia: No Diabetes: Yes GI Disorders: Yes (acid reflux, gastric pareisis) Disorders: Yes (Urinary retention) HTN: No Hypercholesterolemia: No Liver Disease: Yes (hep c) Suicide Attempt (Hx): No Seizures: No Thyroid Disease: No - Surgical History Abdominal Surgery: Yes Appendectomy: No Cardiac Surgery: Yes (PPM) Cholecystectomy: No Gastric Stapling: No Lung Surgery: No Neurologic Surgery: Yes (BACK SX WITH NERVE DAMAGE) Orthopedic Surgery: Yes (laminectomy x 2 in 2008 in [facility]) - Immunization History Immunization Up to Date: Yes - Psycho/Social/Smoking Cessation Hx Anxiety: No Suicidal Ideation: No Smoking Status: No Smoking History: Never smoked Have you smoked in the past 12 months: No Number of Cigarettes Smoked Daily: 0 Cigars Per Day: 0 Information on smoking cessation initiated: No Hx Alcohol Use: No Drug/Substance Use Hx: No Substance Use Type: None Hx Substance Use Treatment: No Trauma Specific PMHX - Complaint Specific PMHX Arthritis: No Back Injury: Yes Neck Injury: No Hx Sacro Iliac Joint Dysfunction: No Review of Systems - Review of Systems Respiratory: No: Shortness of Breath Cardiac (ROS): No: Chest Pain, Lightheadedness Musculoskeletal: No: Back Pain, Neck Pain Neurological: Yes: Headache, Dizziness *Physical Exam - Vital Signs Last Vital Signs Temp Pulse Resp BP Pulse Ox 98.6 F 81 88 H 140/57 98 09/04/16 12:36 09/04/16 12:36 09/04/16 12:36 09/04/16 12:36 09/04/16 12:36 - Physical Exam General Appearance: Yes: Appropriately Dressed. No: Apparent Distress HEENT: positive: Normal Voice Neck: positive: Supple. negative: Tender Respiratory/Chest: positive: Lungs Clear, Normal Breath Sounds. negative: Respiratory Distress Cardiovascular: positive: Regular Rate, S1, S2 Gastrointestinal/Abdominal: positive: Soft. negative: Tender Extremity: positive: Normal Inspection Integumentary: positive: Dry, Warm Neurologic: positive: Fully Oriented, Alert, Normal Mood/Affect, Motor Strength 5/5 ED Treatment Course - RADIOLOGY Radiology Studies Ordered: Category Date Time Status HEAD CT WITHOUT CONTRAST [CT] Stat CT Scan 09/04/16 15:20 Ordered Medical Decision Making - Medical Decision Making 09/04/16 15:44 61 yo F. h/o ?narcolepsy, cardiac and pulm sarcoids, VT s/p AICD in 2013, CHF, seizures, asthma/COPD on oxygen, HCV, chronic back pain, L2-S1 fusion, W/C bound , IDDM, GERD, present w/ LAURENT w/ dizziness and ? blurred vision after fall. Pt states this am while getting out of bed, "I tripped over my socks" and fell forward, hitting front of her head. Denies any LOC. Not on blood thinners per pt. No dizziness or CP prior to fall. Denies hip pain or acute back pain since fall. See exam Head injury s/p mec fall >12 hrs ago Stable and alert w/ no e/o serious injuries and non-focal in ED Not on blood thinners -CTH pending 09/04/16 15:49 09/04/16 18:07 CT head read as neg. pt remained stable and well jaclyn in ED. Will dc w/ reasons to return d/w pt *DC/Admit/Observation/Transfer Diagnosis at time of Disposition: Fall Qualifiers: Encounter type: initial encounter Qualified Code(s): W19.XXXA - Unspecified fall, initial encounter Head injury Qualifiers: Encounter type: initial encounter Qualified Code(s): S09.90XA - Unspecified injury of head, initial encounter - Discharge Dispostion Disposition: HOME Condition at time of disposition: Good - Patient Instructions Printed Discharge Instructions: DI for Closed Head Injury Additional Instructions: Your CT head was negative for any bleed or other acute abnormality. Please return for worsening of symptoms
== END 2016-09-04 22:54 | disposition home or self-care (01) ==
LOC: JER 12:33
DX: S09.8XXA Other specified injuries of head, initial encounter (principal); W06.XXXA Fall from bed, initial encounter; Y93.89 Activity, other specified; Y92.013 Bedroom of single-family (private) house as the place of occurrence of the external cause; D64.9 Anemia, unspecified; J45.909 Unspecified asthma, uncomplicated; J44.9 Chronic obstructive pulmonary disease, unspecified; E11.9 Type 2 diabetes mellitus without complications; Z79.4 Long term (current) use of insulin; K21.9 Gastro-esophageal reflux disease without esophagitis; G40.909 Epilepsy, unspecified, not intractable, without status epilepticus; B18.2 Chronic viral hepatitis C; M54.5 Low back pain; G89.29 Other chronic pain; Z95.0 Presence of cardiac pacemaker
CPT/HCPCS: 70450-TC; 99281-25

== ENCOUNTER 2017-02-06 12:49 | Inpatient (IN) | payer OTHER ==
[2017-02-06] MEDS ORDERED: SODIUM CHLORIDE 1,000 ML IV SCH (13:15)
[2017-02-06] MEDS ORDERED: ALTEPLASE 50 MG VIAL IVPB ONE (13:19)
[2017-02-06] MEDS ORDERED: ALTEPLASE 100MG 100 MG IVPB ONE (13:38)
[2017-02-06 14:06] LABS: MCH 25.8 pg (25.7-33.7); MCHC 32.1 g/dl (32.0-36.0); MEAN CELL VOLUME 80.6 fl (80-96); MEAN PLT VOLUME 8.2 fl (7.5-11.1); PLATELET COUNT 364 K/MM3 (134-434); RDW 22.3 % (11.6-15.6); WHITE BLOOD COUNT 14.6 K/mm3 (4.0-10.0)
[2017-02-06 14:19] LABS: INR 1.25 (0.82-1.09); PROTHROMBIN TIME (PATIENT) 14.1 SEC (9.98-11.88)
--- NOTE | 2017-02-06 14:24 | PDOC ---
History of Present Illness - General Chief Complaint: Pain Stated Complaint: CONFUSION Time Seen by Provider: 02/06/17 13:10 - History of Present Illness Initial Comments: 62 year old female B[place]ODY from [place] with PMH of HTN, CHF (pacemekar placement), Diabetes, COPD, (5L NC at home), GERD, Lupus, DVT (on Apixaban), Parkinson's, and chronic back pain (s/p revision for broken robert and s/p morphine pump placement 2012) presenting with abdominal pain, nausea, constipation, blurry vision, shortness of breath, decreased appetite, and general lethargy for the past two days. On arrival to our ED she was also very week in her right upper extremity with disarthria so a code garcia was called as she was completely fine prior to 10:30 AM this morning and she was still within the window for TPA. The Neurologist evaluated her and after a slightly more thorough neurological exam it was determined that her right arm weakness might be better attributed to effort and a more systemic disease. She states that all of her symptoms started a few days prior to presentation all at once along with a generalized weakness. She denies hemoptysis, hematochezia, melena, hematuria, urinary symptoms, chest pain, vomiting, fevers, chills, cough, or palpitations. 02/06/17 14:18 Past History - Past Medical History Allergies/Adverse Reactions: Allergies Allergy/AdvReac Type Severity Reaction Status Date / Time medroxyprogesterone acetate Allergy Severe stepehns Verified 02/06/17 13:11 [From Depo-Provera] josé syndrome amoxicillin trihydrate Allergy Verified 02/06/17 13:11 [From Augmentin] aspirin Allergy Verified 02/06/17 13:11 azithromycin [From Zithromax] Allergy Dewey Verified 02/06/17 13:11 José syndrome ciprofloxacin HCl Allergy Verified 02/06/17 13:11 [From Cipro] codeine [Codeine] Allergy Verified 02/06/17 13:11 Iodinated Contrast- Oral and Allergy Verified 02/06/17 13:11 IV Dye [IV Dye, Iodine Containing Contrast ] ketorolac tromethamine Allergy Verified 02/06/17 13:11 [From Toradol] levofloxacin [From Levaquin] Allergy Verified 02/06/17 13:11 metronidazole [From Flagyl] Allergy Verified 02/06/17 13:11 nalbuphine HCl [From Nubain] Allergy CYANOSIS Verified 02/06/17 13:11 potassium clavulanate Allergy Verified 02/06/17 13:11 [From Augmentin] Shellfish Allergy Verified 02/06/17 13:11 sulfamethoxazole Allergy Verified 02/06/17 13:11 [From Bactrim] trimethoprim [From Bactrim] Allergy Verified 02/06/17 13:11 ivp dye Allergy Severe Swelling Uncoded 02/06/17 13:11 Home Medications: Ambulatory Orders Montelukast Na [Singulair -] 10 mg PO HS tablet 02/21/16 Pregabalin [Lyrica -] 75 mg PO BID capsule MDD 2 02/21/16 Insulin Lispro [Humalog] 10 unit SQ TID 08/15/16 Apixaban [Eliquis -] 5 mg PO BID #60 tablet 01/09/17 Furosemide [Lasix] 80 mg PO DAILY #30 tablet 01/09/17 Morphine *Sr* [Ms Contin -] 15 mg PO BID #30 tab MDD 2 01/09/17 Albuterol 0.083% Nebulizer Gisela [Ventolin 0.083%] 1 neb NEB Q4H 02/06/17 Atorvastatin Ca [Lipitor] 10 mg PO HS 02/06/17 Ferrous Sulfate 325 mg PO BID 02/06/17 Insulin Glargine,Hum.rec.anlog [Basaglar Kwikpen U-100] 32 unit SQ HS 02/06/17 Lisinopril 10 mg PO DAILY 02/06/17 Metolazone 5 mg PO ASDIR 02/06/17 Polyethylene Glycol 3350 [Miralax (For Daily Use) -] 17 gm PO DAILY 02/06/17 Prednisone [Prednisone 50 MG TABLETS] 30 mg PO DAILY 02/06/17 Sennosides [Senna] 8.6 mg PO DAILY 02/06/17 Tiotropium Weston [Spiriva Respimat] 4 gm IH BID 02/06/17 Anemia: Yes Asthma: Yes Cancer: No Cardiac Disorders: Yes CVA: No COPD: Yes CHF: Yes Dementia: No Diabetes: Yes GI Disorders: Yes (acid reflux, gastric pareisis) Disorders: Yes (Urinary retention) HTN: No Hypercholesterolemia: No Liver Disease: Yes (hep c) Seizures: No Thyroid Disease: No - Surgical History Abdominal Surgery: Yes Appendectomy: No Cardiac Surgery: Yes (PPM) Cholecystectomy: No Gastric Stapling: No Lung Surgery: No Neurologic Surgery: Yes (BACK SX WITH NERVE DAMAGE) Orthopedic Surgery: Yes (laminectomy x 2 in 2009 in [facility]) - Immunization History Immunization Up to Date: Yes - Suicide/Smoking/Psychosocial Hx Smoking Status: No Smoking History: Never smoked Have you smoked in the past 12 months: No Number of Cigarettes Smoked Daily: 0 Cigars Per Day: 0 Hx Alcohol Use: No Drug/Substance Use Hx: No Substance Use Type: None Hx Substance Use Treatment: No Review of Systems - Review of Systems Constitutional: Yes: Chills, Loss of Appetite. No: Fever, Night Sweats HEENTM: Yes: Blurred Vision Respiratory: Yes: Shortness of Breath. No: Cough, SOB with Exertion, Productive cough Cardiac (ROS): Yes: Edema. No: Chest Pain, Irregular Heart Rate ABD/GI: Yes: Constipated, Nausea. No: Diarrhea, Rectal Bleeding, Vomiting, Tarry Stools : No: Dysuria, Discharge Musculoskeletal: Yes: Back Pain Integumentary: No: Bruising, Change in Color Neurological: Yes: Tremors. No: Headache, Paresthesia, Seizure, Tingling *Physical Exam - Vital Signs Last Vital Signs Temp Pulse Resp BP Pulse Ox 97.4 F L 71 26 H 123/66 95 02/06/17 13:13 02/06/17 13:13 02/06/17 13:13 02/06/17 13:13 02/06/17 13:13 - Physical Exam General Appearance: Yes: Nourished, Appropriately Dressed, Obese. No: Apparent Distress HEENT: positive: EOMI, ANGEL, Normal ENT Inspection. negative: Normal Voice ( Speech not quite clear with baseline tremulous voice) Neck: positive: Trachea midline, Normal Thyroid, Supple. negative: Tender, Rigid Respiratory/Chest: positive: Respiratory Distress. negative: Chest Tender, Lungs Clear, Normal Breath Sounds (Crackles bilaterally in lower lung wilhelm.), Accessory Muscle Use Cardiovascular: positive: Regular Rhythm, Tachycardia. negative: Regular Rate Female Pelvic Exam: positive: normal external exam Gastrointestinal/Abdominal: positive: Normal Bowel Sounds, Tender (LLQ and epigastric tenderness), Flat, Soft Musculoskeletal: negative: Normal Inspection (Weak bilaterally but slightly more so on the right side. MOre apprently weak at the right shoulder with abduction.), CVA Tenderness Extremity: positive: Normal Inspection, Normal Range of Motion. negative: Tender Integumentary: positive: Normal Color, Dry, Warm Neurologic: positive: deflash and wash operator II-XII NML intact, Fully Oriented, Alert. negative: Facial Droop, Numbness Procedures - Central Line Central Line Lumen: triple Central Line Position: internal jugular (R) Complications: none Post Central Line Insertion: sutured, good blood return, position confirmed w/ CXR Progress: Patient was paralyzed and sedated for an intubation prior to central line placement so no anesthetic was needed. Central line placed swiftly without complication. 02/06/17 20:39 ED Treatment Course - LABORATORY CBC & Chemistry Diagram: 02/06/17 13:21 02/06/17 16:59 - ADDITIONAL ORDERS Additional order review: 02/06/17 13:21 RBC 4.79 MCV 80.6 MCHC 32.1 RDW 22.3 H MPV 8.2 Neutrophils % No Result Required. Lymphocytes % No Result Required. Medical Decision Making - Medical Decision Making 62 year old female with multiple comorbidities presenting with SOB, general, CHF, DVT history, lethargy, abdominal pain, constipation and appetite loss over the last few days. Upon further evaluation, she is not likely having a cerebral ischemic event. Will hold thrombolytics currently as discussed with Dr. Merida at patient's bedside. Sepsis labs ordered although patient's temp and vital signs are roughly normal. Head CT was read as negative and chest X R was unchanged from previous. However, acute on chronic heart failure will be worked up. High suspicion for abdominal pathology so will get CT with IV contrast. 02/06/17 15:08 Patient's labs continued to hemolyze after multiple US guided sticks but her WBC was 14 and she was hypercarbic. We spoke to Dr. Lehman who agrees with BIPAP and an admission to the floor barring any extenuating circumstances or acute lab/ vital sign changes. We marysol another CMP off of her arterial puncture and will send that with an ABG to see her oxygenation prior to placing on BIPAP. Spoke to the lab to run the majority of the previously hemolyzed CMP. Cr elevation to 2.1 which is an SHERRI by rifle criteria (0.8 less than a year ago). We will change the CT of the abdomen to without contrast and add on a chest CT to determine if there is an underlying PNA given obscured CXR from her CHF. THe patient is receiving a liter of fluid and received a dose of Aztreonam for suspected infectious etiology. Troponin negative, lactate negative, and UA clear. 02/06/17 17:07 The patient began to acutely decline at approximately 18:55 with pressures in the 50s systolic with minor ventilatory difficulty. 500 CC of NS were bolused so it was decided to intubate the patient to combat potential worsening pulmonary edema. A central line and ETT tube were placed per the procedure note without difficulty or complication. 02/06/17 20:[address] Cutler and signed out patient to the medicine team. The ED attendign(Dr. Dubois) already spoke with the ICU and she was deemed appropriate for admission. 02/06/17 20:44 *DC/Admit/Observation/Transfer Diagnosis at time of Disposition: Hypoxia, Hypercarbia, SHERRI (acute kidney injury) Leukocytosis Qualifiers: Leukocytosis type: unspecified Qualified Code(s): D72.829 - Elevated white blood cell count, unspecified - Discharge Dispostion Condition at time of disposition: Stable Admit: Yes - Referrals
[2017-02-06 14:35] LABS: VENOUS BLOOD GAS HCO3 41.8 meq/L (19-25); VENOUS PH 7.32 (7.32-7.42)
[2017-02-06 14:35] LABS: METAMYELOCYTE 2 % (0-2); PLATELET ESTIMATE ADEQUATE (NORMAL); TOTAL CELLS COUNTED 100
[2017-02-06 14:42] LABS: URINE APPEARANCE SLCLOUDY; URINE BILIRUBIN NEGATIVE (NEGATIVE); URINE BLOOD NEGATIVE (NEGATIVE); URINE COLOR YELLOW; URINE GLUCOSE (UA) NEGATIVE (NEGATIVE); URINE KETONE NEGATIVE (NEGATIVE); URINE NITRITE NEGATIVE (NEGATIVE); URINE PROTEIN NEGATIVE (NEGATIVE); URINE UROBILINOGEN NEGATIVE mg/dL (0.2-1.0)
[2017-02-06] MEDS ORDERED: AZTREONAM 2 GM in DEXTROSE 5%-WATER - 100 ML IV ONE (15:50)
--- NOTE | 2017-02-06 15:52 | PDOC ---
Attending Attestation - Medical Decision Making 02/06/17 18:[address] to Dr. Rubio at 6:45. Call returned immediately and case discussed. Phone call placed to Dr. Rubio at 6:55. Awaiting call back. 02/06/17 19:00 Phone call returned by Dr. Rubio and case discussed. Call placed to patient's son and case was discussed. <Jessica Tee - Last Filed: 02/06/17 19:00> - Resident Resident Name: TonyPaulette - ED Attending Attestation I have performed the following: I have examined & evaluated the patient, The case was reviewed & discussed with the resident, I agree w/resident's findings & plan, Exceptions are as noted - HPI HPI: 02/06/17 15:48 Chief complaint lethargy, abdominal pain History of present illness: 62 years old brought in by [facility] past medical history significant for hypertension CHF diabetes COPD GERD lupus DVD on Apixaban Parkinson's chronic back pain presents to the emergency department today history of worsening lethargy nausea abdominal discomfort. This morning around 10:30 was noted by [facility] staff to be moving lasts family arrived and a 1:00 was brought to the emergency department initially on first evaluation patient with limited movement to right upper extremity code arauz activated however patient on reexam appears to be more diffusely weak was able to hold both hands above her head. - Physicial Exam PE: 02/06/17 15:48 Vitals: Triage Vital signs reviewed General Appearance: no acute distress, well nourished well developed, Head: Atraumatic, Eyes: Pupils equal reactive round, extraocular movement intact Chest Wall: Nontender Cardiac: Regular rate and rhythym, no murmurs, no rubs, no gallops, Lungs: course bs b/l, good air movement bilaterally, Abdomen: Soft, non distended, normal bowel sounds diffuse abdominal tenderness to palpation Extremities: Full range of motion to all extremities, no cyanosis, clubbing, or edema Skin: Warm and dry, no rashes or lesions, no rash, no petechiae Neuro: AOX3; Cranial Nerves 2-12 grossly intact, Strength intact to all extremities, Sensation intact to all extremities 02/07/17 17:55 - Critical Care Time Total Critical Care Time: 75 Critical Care Statement: The care of this patient involved high complexity decision making to prevent further life threatening deterioration of the patient 's condition and/or to evaluate & treat vital organ system(s) failure or risk of failure. - Medical Decision Making 02/06/17 15:51 Low suspicion for acute stroke given generalized weakness abdominal pain for 2 days more likely patient's generalized weakness is secondary to infectious/ metabolic etiology. Given history of CHF in past we'll not over fluid resuscitate. Patient is on home O2. We'll obtain labs CT abdomen and pelvis reassess Reevaluation CAT scan pending we'll initiate antibiotics in interim 02/06/17 18:31 Reevaluation: Chest CT with evidence of multilobar pneumonia. Given multiple drug ALLERGIES aztreonam ordered Given borderline low blood pressure 500 mL bolus initiated we'll carefully give fluid given history of CHF. Will consult ICU for placement 02/06/17 20:22 Reevaluation no significant response to IV fluid boluses. Patients respiratory status now deteriorating. Case discussed with health care proxy son. Patient is full code. Will place central line and intubate. Verbal consent obtained over the phone from son. Central line and intubation performed successfully with no complications see procedures note by resident. Confirmed by portable chest x-ray Levophed started for hypotension. Now at 10 mcg with improvement in MAP We'll transfer to ICU for further management. 02/07/17 17:55 <Erik Dubois - Last Filed: 02/07/17 17:55> Heart Score/ECG Review - ECG Intrepretation Comment:: 02/06/17 16:26 EKG performed at 15:03 demonstrates rate of 93 bpm, rhythm of sinus rhythm with occasional premature ventricular complexes and premature atrial complexes, axis equal to normal Documentation prepared by Jessica Tee, acting as biomedical engineering technologist for Erik Dubois MD. <Jessica Tee - Last Filed: 02/06/17 19:00>
[2017-02-06 16:50] LABS: ALBUMIN 3.1 g/dl (3.4-5.0); ANION GAP 8 (8-16); BILIRUBIN,TOTAL 0.6 mg/dL (0.2-1.0); CO2 37 mmol/L (21-32); CREATININE 2.1 mg/dL (0.55-1.02); GLUCOSE,RANDOM 51 mg/dL (74-106); SGPT/ALT 30 U/L (12-78)
[2017-02-06 16:53] LABS: ALK PHOS 117 U/L (45-117); TROPONIN I < 0.02 ng/ml (0.00-0.05)
[2017-02-06 17:06] LABS: ARTERIAL BLD GAS O2 SATURATION 96.7 % (90-98.9); ARTERIAL BLOOD GAS BASE EXCESS 12.5 meq/l (-2-2); ARTERIAL BLOOD GAS HCO3 39.7 meq/L (22-26); ARTERIAL BLOOD GAS PO2 88.1 mmHg (80-100); ARTERIAL BLOOD GAS pH 7.41 (7.35-7.45)
[2017-02-06 17:08] LABS: ALLENS TEST POSITIVE; ART PUNCT SITE RIGHT RADIAL; LPM/O2% 4L; PT. ON O2? YES; TYPE OF O2 NASAL
[2017-02-06 17:14] LABS: URINE LEUK ESTERASE Negative (NEGATIVE)
[2017-02-06 17:40] LABS: ALBUMIN 2.9 g/dl (3.4-5.0); ANION GAP 7 (8-16); BILIRUBIN,TOTAL 0.3 mg/dL (0.2-1.0); CALCIUM 8.3 mg/dL (8.5-10.1); CO2 38 mmol/L (21-32); CREATININE 1.6 mg/dL (0.55-1.02); GLUCOSE,RANDOM 58 mg/dL (74-106); SGOT/AST 16 U/L (15-37); SGPT/ALT 25 U/L (12-78); TOT PROT 6.9 g/dl (6.4-8.2)
[2017-02-06 17:41] LABS: ALK PHOS 102 U/L (45-117)
[2017-02-06 17:42] LABS: METHEMOGLOBIN 0.6 % (0.4-1.5)
[2017-02-06] MEDS ORDERED: SODIUM CHLORIDE 0.9% 1000 ML INFUS.BAG IV STA (18:52)
[2017-02-06] MEDS ORDERED: RAPID SEQUENCE INTUBATION KIT NR ONE (19:04)
[2017-02-06] MEDS ORDERED: MIDAZOLAM HCL 2 MG/2 ML SINGLE DOSE VIAL ONE (19:30)
[2017-02-06] MEDS ORDERED: NOREPINEPHRINE BITARTRATE 4 MG/4 ML ML IV ONE (19:43)
[2017-02-06] MEDS ORDERED: MIDAZOLAM HCL 2 MG/2 ML SINGLE DOSE VIAL IVPUSH ONE ×2 (20:53→21:25)
[2017-02-06] MEDS: NOREPINEPHRINE BITARTRATE 8,000 MCG in DEXTROSE 5%-WATER - 492 ML IV SCH (21:12)
--- NOTE | 2017-02-06 22:20 | CONSULT ---
Consult - text type - Consultation Consultation Note: PULM/CCM Consult Pt seen and examined in ICU CC: resp failure HPI: Briefly Ms Canchola is a 62 year old female with PMHX of HTN, pHTN and CHF ( rvsp 50, preserved EF, ? diastolic failure), Sarcoidosis, s/p PPM, Diabetes, COPD on chronic o2 at 5Lpm NC, GERD, Lupus, hx DVT (on Apixaban), Parkinson's, and chronic back pain (s/p revision for broken robert and s/p morphine pump placement 2012) who presents today from [place] with abdominal pain, nausea, constipation, blurry vision, shortness of breath, decreased appetite, and general lethargy for the past two days. She was recently dicharged in december from this institution after COPD exacerbation, d/c on steroid taper and abx. Family relates pt more lethargic, dyspneic, and with increased edema over last week. There was no reported LOC, chest pain, fever, cough, hematemesis, diarrhea , palpitations, falls. In ED pt was normothermic, normotensive, and without acute distress. THere was concern there was increased weakness on the RUE and stroke code was called. CT head was negative, Neuro saw and felt pt was more generally weak and exam was not focal. Abd exam was apparently concerning and CTAP was performed (no obvious obstruction or free air, read pending). She received 1.5-2L of NS. At some point pt became hypotensive and somulent. She appeared to be in resp distress--> abg with chronic hypercapnea 7.4/63 but pt appeared to be acutely deteriorating and was intubated. RIJ TLC placed for vasopressor support, levo as high as 10mcg. CT chest shows multifocal infiltrate and pulm edema, trace effusion. Labs notable for SHERRI (Cr 2.1 up from 0.9), wbc of 14, UA negative for LE, no micro. Aztreonam given for broad coverage as pt with significant allergies. Transferred to ICU for further care. Vital Signs Temp 97.4 F L 02/06/17 14:30 Pulse 83 02/06/17 21:12 Resp 12 02/06/17 21:14 BP 122/61 02/06/17 21:12 Pulse Ox 100 02/06/17 20:45 Intake & Output 02/05/17 02/06/1717 23:59 11:59 23:59 Intake Total 1350 Output Total 10 Balance 1340 Weight 74.843 kg Intake: IV 1300 Normal Saline - 1,000 ml 1300 @ 42 mls/hr IV ASDIR EYAL Rx#:[id number] IVPB 50 Output: Urine 10 Cronin 10 Other: Height 4 ft 10 in Body Mass Index (BMI) 34.4 Weight Measurement Method Estimated by Staff . Home Medications Medication Instructions Recorded Montelukast Na [Singulair -] 10 mg PO HS tablet 02/21/16 Pregabalin [Lyrica -] 75 mg PO BID capsule MDD 2 02/21/16 Insulin Lispro [Humalog] 10 unit SQ TID 08/15/16 Apixaban [Eliquis -] 5 mg PO BID #60 tablet 01/09/17 Furosemide [Lasix] 80 mg PO DAILY #30 tablet 01/09/17 Morphine *Sr* [Ms Contin -] 15 mg PO BID #30 tab MDD 2 01/09/17 Albuterol 0.083% Nebulizer Gisela 1 neb NEB Q4H 02/06/17 [Ventolin 0.083%] Atorvastatin Ca [Lipitor] 10 mg PO HS 02/06/17 Ferrous Sulfate 325 mg PO BID 02/06/17 Insulin Glargine,Hum.rec.anlog 32 unit SQ HS 02/06/17 [Basaglar Kwikpen U-100] Lisinopril 10 mg PO DAILY 02/06/17 Metolazone 5 mg PO ASDIR 02/06/17 Polyethylene Glycol 3350 [Miralax 17 gm PO DAILY 02/06/17 (For Daily Use) -] Prednisone [Prednisone 50 MG 30 mg PO DAILY 02/06/17 TABLETS] Sennosides [Senna] 8.6 mg PO DAILY 02/06/17 Tiotropium [place] [Spiriva 4 gm IH BID 02/06/17 Respimat] Past Medical History Cardio/Vascular CHF,Other Pulmonary Asthma,Sleep Apnea,Other Gastrointestinal GERD Hepatobiliary Hepatitis C Heme/Onc Anemia Infectious Disease Other Rheumatology Sarcoidosis Additional Medical History in wheelchair after accident many years ago. Spinal cord stimulator. Multiple drug allergies. History of Ferrer José syndrome Past Surgical History Past Surgical History Permanent Pacemaker Social History Smoking history Never smoked Have you smoked in the past 12 No months Hx Alcohol Use No ADL Family Assistance, [place] CBCD WBC 14.6 K/mm3 (4.0-10.0) H 02/06/17 13:21 RBC 4.79 M/mm3 (3.60-5.2) 02/06/17 13:21 Hgb 12.4 GM/dL (10.7-15.3) D 02/06/17 13:21 Hct 38.6 % (32.4-45.2) D 02/06/17 13:21 MCV 80.6 fl (80-96) 02/06/17 13:21 MCHC 32.1 g/dl (32.0-36.0) 02/06/17 13:21 RDW 22.3 % (11.6-15.6) H 02/06/17 13:21 Plt Count 364 K/MM3 (134-434) D 02/06/17 13:21 MPV 8.2 fl (7.5-11.1) 02/06/17 13:21 CMP Sodium 135 mmol/L (136-145) L 02/06/17 16:59 Potassium 3.2 mmol/L (3.5-5.1) L D 02/06/17 16:59 Chloride 90 mmol/L (98-107) L 02/06/17 16:59 Carbon Dioxide 38 mmol/L (21-32) H 02/06/17 16:59 Anion Gap 7 (8-16) L 02/06/17 16:59 BUN 52 mg/dL (7-18) H 02/06/17 16:59 Creatinine 1.6 mg/dL (0.55-1.02) H D 02/06/17 16:59 Creat Clearance w eGFR 32.66 (>60) 02/06/17 16:59 Calcium 8.3 mg/dL (8.5-10.1) L 02/06/17 16:59 Total Bilirubin 0.3 mg/dL (0.2-1.0) D 02/06/17 16:59 AST 16 U/L (15-37) D 02/06/17 16:59 ALT 25 U/L (12-78) 02/06/17 16:59 Alkaline Phosphatase 102 U/L (45-117) 02/06/17 16:59 Total Protein 6.9 g/dl (6.4-8.2) 02/06/17 16:59 Albumin 2.9 g/dl (3.4-5.0) L 02/06/17 16:59 Vital Signs Temp 97.4 F L 02/06/17 14:30 Pulse 83 02/06/17 21:12 Resp 12 02/06/17 21:14 BP 122/61 02/06/17 21:12 Pulse Ox 100 02/06/17 20:45 Intake & Output 02/05/17 02/06/17 02/06/17 23:59 11:59 23:59 Intake Total 1350 Output Total 10 Balance 1340 Weight 74.843 kg Intake: IV 1300 Normal Saline - 1,000 ml 1300 @ 42 mls/hr IV ASDIR EYAL Rx#:[id number] IVPB 50 Output: Urine 10 Cronin 10 Other: Height 4 ft 10 in Body Mass Index (BMI) 34.4 Weight Measurement Method Estimated by Staff General Appearance: intubated sedated Head: Atraumatic, normocephalic Eyes: Pupils equal reactive round, EOMI Cardiac: Regular rate and rhythym, no murmurs, no rubs, no gallops appreciated Lungs: scattered rales bilaterally, diminished bases, no wheezes Abdomen: Soft, non distended, normal bowel sounds diffuse abdominal tenderness to palpation Extremities: 3+ pitting dependant edema, strong pulses throughout Skin: Warm and dry, no rashes or lesions, no rash, no petechiae Neuro: sedated, KEYS x 4, withdrawals to painful stimuli bilaterally CT chest reviewed CXR reviewed CTAP reviewed....all final reads pending A/ 62 yo woman with multiple medical problems, presented to ED with abd pain, malaise and mild dyspnea now intubated and requiring vasopressor support in setting of volume overload, pulm edema, and possible multilobar pna. P/ Pulm: acute on chronic hypoxic/hypercapneic resp failure, not wheezing, not obstructing on vent. -full vent support -check abg -diuresis once BP improved -abx CV: shock requiring vasopressor support, hx of pHTN (RVSP 50) -TLC in place -check CVP and central venous -check trop and BNP -repeat TTE ID: ? multilobar pna -Aztreonam -will give dose of Vanco given [facility] resident/HCAP -check legionella,strep, viral Heme: hx of DVT on eliquis, INR < 2 -will start heparin gtt until stabilized and intermediate manager ac can be restarted RENAL: SHERRI -check urine lytes -trend Cr, further eval if does not improve Prophy: hep gtt, ppi Santiago Robbins ACNP [id number] Current Active Problems SHERRI (acute kidney injury) (Acute) Hypercarbia (Acute) Hypoxia (Acute) Leukocytosis (Acute) Critical Care Total Critical Care Time (in minutes): 35 Critical Care Statement: The care of this patient involved high complexity decision making to prevent further life threatening deterioration of the patient 's condition and/or to evaluate & treat vital organ system(s) failure or risk of failure.
[2017-02-06 22:23] LABS: ARTERIAL BLOOD GAS BASE EXCESS 11.6 meq/l (-2-2); ARTERIAL BLOOD GAS pH 7.42 (7.35-7.45)
[2017-02-06] MEDS ORDERED: DEXTROSE 50%-WATER - 25 GM/50 ML VIAL ONE (22:23)
[2017-02-06 22:25] LABS: ALLENS TEST POSITIVE; ART PUNCT SITE RIGHT RADIAL; LPM/O2% 100; MECH. VENT. YES; PT. ON O2? YES; TYPE OF O2 MECH VENT; VENT RATE 12; VT/PRESS 400
[2017-02-06] MEDS ORDERED: DEXTROSE 50%-WATER - 25 GM/50 ML VIAL IVPUSH ONE (22:45)
[2017-02-06] MEDS ORDERED: HEPARIN NA (PORCINE) 5,000 UNITS/ML 1ML VIAL IVPUSH PRN ×2 (22:58)
[2017-02-06] MEDS ORDERED: VANCOMYCIN 1,000 MG in DEXTROSE 5%-WATER - 250 ML IVPB ONE (23:01)
[2017-02-06 23:07] LABS: ANION GAP 8 (8-16); CALCIUM 8.4 mg/dL (8.5-10.1); CO2 36 mmol/L (21-32); CREATININE 1.4 mg/dL (0.55-1.02); GLUCOSE,RANDOM 56 mg/dL (74-106)
[2017-02-06] MEDS ORDERED: FUROSEMIDE 40 MG/4 ML INJECTABLE VIAL IVPUSH ONE (23:08)
[2017-02-06] MEDS: HEPARIN INFUSION - 500 ML IVPB SCH (23:08)
[2017-02-06 23:09] LABS: CPK 30 IU/L (26-192); TROPONIN I 0.11 ng/ml (0.00-0.05)
[2017-02-06 23:49] VITALS: BMI 36.4
[2017-02-06] MEDS: KCL 10 MEQ IVPB 100 ML IVPB SCH (23:56)
[2017-02-07] MEDS ORDERED: NOREPINEPHRINE BITARTRATE 4 MG/4 ML ML IV ONE (00:06)
[2017-02-07] MEDS: KCL 10 MEQ IVPB 100 ML IVPB SCH ×2 (00:50→01:42)
[2017-02-07 04:11] LABS: URINE APPEARANCE CLEAR; URINE BILIRUBIN NEGATIVE (NEGATIVE); URINE BLOOD NEGATIVE (NEGATIVE); URINE COLOR STRAW; URINE GLUCOSE (UA) 1+ (NEGATIVE); URINE KETONE NEGATIVE (NEGATIVE); URINE NITRITE NEGATIVE (NEGATIVE); URINE PROTEIN NEGATIVE (NEGATIVE); URINE UROBILINOGEN NEGATIVE mg/dL (0.2-1.0)
[2017-02-07 06:29] LABS: MCHC 32.4 g/dl (32.0-36.0); MEAN CELL VOLUME 80.3 fl (80-96); MEAN PLT VOLUME 8.5 fl (7.5-11.1); PLATELET COUNT 425 K/MM3 (134-434); RDW 21.7 % (11.6-15.6); WHITE BLOOD COUNT 14.2 K/mm3 (4.0-10.0)
[2017-02-07 07:22] LABS: ANION GAP 7 (8-16); CALCIUM 8.5 mg/dL (8.5-10.1); CO2 40 mmol/L (21-32); CREATININE 1.1 mg/dL (0.55-1.02); GLUCOSE,RANDOM 143 mg/dL (74-106); MAGNESIUM 1.7 mg/dL (1.8-2.4); PHOSPHOROUS 3.1 mg/dL (2.5-4.9)
--- NOTE | 2017-02-07 09:07 | EKG ---
Test Reason : Blood Pressure : / mmHG Vent. Rate : 093 BPM Atrial Rate : 093 BPM P-R Int : 132 ms QRS Dur : 072 ms QT Int : 352 ms P-R-T Axes : 030 -02 031 degrees QTc Int : 437 ms SINUS RHYTHM WITH OCCASIONAL PREMATURE VENTRICULAR COMPLEXES AND PREMATURE ATRIAL COMPLEXES OTHERWISE NORMAL ECG WHEN COMPARED WITH ECG OF 03-JAN-2017 09:01, PREMATURE VENTRICULAR COMPLEXES ARE NOW PRESENT Confirmed by EDILBERTO SAAB, ANILA ([id number]) on 02/07/2017 9:07:03 AM Referred By: Confirmed By:ANILA CASANOVA MD
[2017-02-07] MEDS: AZTREONAM 2 GM in DEXTROSE 5%-WATER - 100 ML IV SCH ×2 (09:19→17:47)
--- NOTE | 2017-02-07 09:24 | PN ---
Progress Note (short form) - Note Progress Note: Patient seen and examined in the ICU. Intubated and sedated. Remains on NE @8 mcq for hemodynamic support. AC Mode of vent, 40% FiO2. Intake & Output 02/04/17 02/05/17 02/06/17 02/07/17 23:59 23:59 23:59 23:59 Intake Total 1350 1125 Output Total 1110 2200 Balance 240 -1075 Weight 174 lb 4.8 oz 172 lb 8 oz Last Vital Signs Temp Pulse Resp BP Pulse Ox 98.6 F 108 H 23 123/73 100 02/07/17 08:00 02/07/17 08:15 02/07/17 08:00 02/07/17 08:15 02/06/17 21:30 Active Medications Chlorhexidine Gluconate (Hibiclens For Decolonization -) 1 applic TP HS EYAL Fentanyl (Sublimaze Injection -) 50 mcg IVPUSH Q1H PRN PRN Reason: PAIN LEVEL 1-5 Stop: 02/07/17 21:59 Last Admin: 02/07/17 07:32 Dose: 50 mcg Heparin Sodium (Porcine) (Heparin -) 1,000 unit IVPUSH PRN PRN PRN Reason: Heparin Heparin Sodium (Porcine) (Heparin -) 5,000 unit IVPUSH PRN PRN PRN Reason: Heparin Norepinephrine Bitartrate 8, (000 mcg/ Dextrose) 500 mls @ 18.75 mls/hr IV TITR EYAL; 5 MCG/MIN PRN Reason: Protocol Last Titration: 02/07/17 08:15 Dose: 6 mcg/min Heparin Sodium/Dextrose (Heparin Infusion -) 500 mls @ 20 mls/hr IVPB TITR EYAL ; 1,000 UNITS/HR PRN Reason: Protocol Last Admin: 02/06/17 23:08 Dose: 20 mls/hr Aztreonam 2 gm/ Dextrose 100 mls @ 100 mls/hr IV Q8H-IV EYAL PRN Reason: Protocol Mupirocin (Bactroban Ointment (For Decolonization) -) 1 applic NS BID EYAL Stop: 02/12/17 09:59 Pantoprazole Sodium (Protonix Iv) 40 mg IVPUSH DAILY EYAL General Appearance: intubated / sedated Head: Atraumatic, normocephalic Eyes: Pupils equal reactive round, EOMI Cardiac: Regular rate and rhythym, no murmurs, no rubs, no gallops appreciated Lungs: coarse bilateral rhonchi, no wheezes Abdomen: Soft, non distended, normal bowel sounds diffuse abdominal tenderness to palpation Extremities: 3+ pitting dependant edema, strong pulses throughout Skin: Warm and dry, no rashes or lesions, no rash, no petechiae Neuro: sedated Laboratory Results - last 24 hr 02/06/17 02/06/17 02/06/17 13:21 13:21 13:21 WBC 14.6 H RBC 4.79 Hgb 12.4 D Hct 38.6 D MCV 80.6 MCH 25.8 MCHC 32.1 RDW 22.3 H Plt Count 364 D MPV 8.2 Total Counted 100 Neutrophils % No Result Required. Neutrophils % (Manual) 75 Band Neuts % (Manual) 5 D Lymphocytes % No Result Required. Lymphocytes % (Manual) 16 D Monocytes % (Manual) 2 L D Platelet Estimate Adequate Platelet Comment Slt plt clumping PT with INR 14.10 H INR 1.25 H PTT (Actin FS) Puncture Site ABG pH ABG pCO2 at Pt Temp ABG pO2 at Pt Temp ABG HCO3 ABG O2 Sat (Measured) ABG O2 Content ABG Base Excess Tanner Test VBG pH POC VBG pCO2 POC VBG pO2 Mixed VBG HCO3 Carboxyhemoglobin Methemoglobin O2 Delivery Device Oxygen Flow Rate Vent Mode Vent Rate Mechanical Rate PEEP Pressure Support Vent Sodium Potassium Chloride Carbon Dioxide Anion Gap BUN Creatinine Creat Clearance w eGFR Random Glucose Lactic Acid Calcium Phosphorus Magnesium Total Bilirubin AST ALT Alkaline Phosphatase Creatine Kinase Troponin I B-Natriuretic Peptide Total Protein Albumin Triglycerides Cholesterol Total LDL Cholesterol HDL Cholesterol Lipase Urine Color Yellow Urine Appearance Slcloudy Urine pH 6.0 Ur Specific [place] 1.010 Urine Protein Negative Urine Glucose (UA) Negative Urine Ketones Negative Urine Blood Negative Urine Nitrite Negative Urine Bilirubin Negative Urine Urobilinogen Negative Ur Leukocyte Esterase Negative Blood Type Antibody Screen 02/06/17 02/06/17 02/06/17 13:21 13:21 13:55 WBC RBC Hgb Hct MCV MCH MCHC RDW Plt Count MPV Total Counted Neutrophils % Neutrophils % (Manual) Band Neuts % (Manual) Lymphocytes % Lymphocytes % (Manual) Monocytes % (Manual) Platelet Estimate Platelet Comment PT with INR INR PTT (Actin FS) Puncture Site ABG pH ABG pCO2 at Pt Temp ABG pO2 at Pt Temp ABG HCO3 ABG O2 Sat (Measured) ABG O2 Content ABG Base Excess Tanner Test VBG pH POC VBG pCO2 POC VBG pO2 Mixed VBG HCO3 Carboxyhemoglobin Methemoglobin O2 Delivery Device Oxygen Flow Rate Vent Mode Vent Rate Mechanical Rate PEEP Pressure Support Vent Sodium Cancelled Potassium Cancelled Chloride Cancelled Carbon Dioxide Cancelled Anion Gap Cancelled BUN Cancelled Creatinine Cancelled Creat Clearance w eGFR Cancelled Random Glucose Cancelled Lactic Acid Calcium Cancelled Phosphorus Magnesium Total Bilirubin Cancelled AST Cancelled ALT Cancelled Alkaline Phosphatase Cancelled Creatine Kinase Cancelled Troponin I Cancelled B-Natriuretic Peptide Total Protein Cancelled Albumin Cancelled Triglycerides Cancelled Cholesterol Cancelled Total LDL Cholesterol Cancelled HDL Cholesterol Cancelled Lipase Cancelled Cancelled Urine Color Urine Appearance Urine pH Ur Specific [place] Urine Protein Urine Glucose (UA) Urine Ketones Urine Blood Urine Nitrite Urine Bilirubin Urine Urobilinogen Ur Leukocyte Esterase Blood Type O POSITIVE Antibody Screen Negative 02/06/17 02/06/17 02/06/17 13:55 14:30 16:11 WBC RBC Hgb Hct MCV MCH MCHC RDW Plt Count MPV Total Counted Neutrophils % Neutrophils % (Manual) Band Neuts % (Manual) Lymphocytes % Lymphocytes % (Manual) Monocytes % (Manual) Platelet Estimate Platelet Comment PT with INR INR PTT (Actin FS) Puncture Site ABG pH ABG pCO2 at Pt Temp ABG pO2 at Pt Temp ABG HCO3 ABG O2 Sat (Measured) ABG O2 Content ABG Base Excess Tanner Test VBG pH 7.32 POC VBG pCO2 83.1 H* D POC VBG pO2 20.1 L D Mixed VBG HCO3 41.8 H* Carboxyhemoglobin Methemoglobin O2 Delivery Device Oxygen Flow Rate Vent Mode Vent Rate Mechanical Rate PEEP Pressure Support Vent Sodium 133 L Potassium Technical Consultant Chloride 88 L Carbon Dioxide 37 H Anion Gap 8 BUN 52 H D Creatinine 2.1 H D Creat Clearance w eGFR 23.86 Random Glucose 51 L D Lactic Acid 1.2 Calcium 9.0 Phosphorus Magnesium Total Bilirubin 0.6 D AST Y ALT 30 D Alkaline Phosphatase 117 D Creatine Kinase No Result Required. Troponin I < 0.02 B-Natriuretic Peptide Total Protein 8.0 Albumin 3.1 L Triglycerides Cholesterol Total LDL Cholesterol 127 H HDL Cholesterol Lipase 56 L Urine Color Urine Appearance Urine pH Ur Specific [place] Urine Protein Urine Glucose (UA) Urine Ketones Urine Blood Urine Nitrite Urine Bilirubin Urine Urobilinogen Ur Leukocyte Esterase Blood Type Antibody Screen 02/06/17 02/06/17 02/06/17 16:11 16:43 16:59 WBC RBC Hgb Hct MCV MCH MCHC RDW Plt Count MPV Total Counted Neutrophils % Neutrophils % (Manual) Band Neuts % (Manual) Lymphocytes % Lymphocytes % (Manual) Monocytes % (Manual) Platelet Estimate Platelet Comment PT with INR INR PTT (Actin FS) Puncture Site Right radial ABG pH 7.41 ABG pCO2 at Pt Temp 63.7 H* D ABG pO2 at Pt Temp 88.1 ABG HCO3 39.7 H ABG O2 Sat (Measured) 96.7 ABG O2 Content 18.0 ABG Base Excess 12.5 H Tanner Test Positive VBG pH POC VBG pCO2 POC VBG pO2 Mixed VBG HCO3 Carboxyhemoglobin 1.6 Methemoglobin 0.6 O2 Delivery Device Nasal Oxygen Flow Rate 4l Vent Mode Vent Rate Mechanical Rate PEEP 0.0 Pressure Support Vent Sodium Potassium Chloride Carbon Dioxide Anion Gap BUN Creatinine Creat Clearance w eGFR Random Glucose Lactic Acid Calcium Phosphorus Magnesium Total Bilirubin AST ALT Alkaline Phosphatase Creatine Kinase Troponin I B-Natriuretic Peptide 58.51 Total Protein Albumin Triglycerides Cholesterol Total LDL Cholesterol HDL Cholesterol Lipase Urine Color Urine Appearance Urine pH Ur Specific [place] Urine Protein Urine Glucose (UA) Urine Ketones Urine Blood Urine Nitrite Urine Bilirubin Urine Urobilinogen Ur Leukocyte Esterase Blood Type Antibody Screen 02/06/17 02/06/17 02/06/17 16:59 22:20 22:20 WBC RBC Hgb Hct MCV MCH MCHC RDW Plt Count MPV Total Counted Neutrophils % Neutrophils % (Manual) Band Neuts % (Manual) Lymphocytes % Lymphocytes % (Manual) Monocytes % (Manual) Platelet Estimate Platelet Comment PT with INR INR PTT (Actin FS) Puncture Site Right radial ABG pH 7.42 ABG pCO2 at Pt Temp 59.7 H ABG pO2 at Pt Temp 337.0 H* ABG HCO3 38.0 H ABG O2 Sat (Measured) 100.0 H* ABG O2 Content 17.5 ABG Base Excess 11.6 H Tanner Test Positive VBG pH POC VBG pCO2 POC VBG pO2 Mixed VBG HCO3 Carboxyhemoglobin Methemoglobin O2 Delivery Device Mech vent Oxygen Flow Rate 100 Vent Mode A/c Vent Rate 12 Mechanical Rate Yes PEEP 5.0 Pressure Support Vent 400 Sodium 135 L Potassium 3.2 L D Chloride 90 L Carbon Dioxide 38 H Anion Gap 7 L BUN 52 H Creatinine 1.6 H D Creat Clearance w eGFR 32.66 Random Glucose 58 L Lactic Acid 0.7 Calcium 8.3 L Phosphorus Magnesium Total Bilirubin 0.3 D AST 16 D ALT 25 Alkaline Phosphatase 102 Creatine Kinase Troponin I B-Natriuretic Peptide Total Protein 6.9 Albumin 2.9 L Triglycerides Cholesterol Total LDL Cholesterol HDL Cholesterol Lipase Urine Color Urine Appearance Urine pH Ur Specific [place] Urine Protein Urine Glucose (UA) Urine Ketones Urine Blood Urine Nitrite Urine Bilirubin Urine Urobilinogen Ur Leukocyte Esterase Blood Type Antibody Screen 02/06/17 02/06/17 02/07/17 22:20 23:00 05:05 WBC RBC Hgb Hct MCV MCH MCHC RDW Plt Count MPV Total Counted Neutrophils % Neutrophils % (Manual) Band Neuts % (Manual) Lymphocytes % Lymphocytes % (Manual) Monocytes % (Manual) Platelet Estimate Platelet Comment PT with INR INR PTT (Actin FS) Puncture Site ABG pH ABG pCO2 at Pt Temp ABG pO2 at Pt Temp ABG HCO3 ABG O2 Sat (Measured) ABG O2 Content ABG Base Excess Tanner Test VBG pH POC VBG pCO2 POC VBG pO2 Mixed VBG HCO3 Carboxyhemoglobin Methemoglobin O2 Delivery Device Oxygen Flow Rate Vent Mode Vent Rate Mechanical Rate PEEP Pressure Support Vent Sodium 136 134 L Potassium 2.9 L* 3.3 L Chloride 92 L 87 L Carbon Dioxide 36 H 40 H Anion Gap 8 7 L BUN 46 H 37 H Creatinine 1.4 H 1.1 H D Creat Clearance w eGFR Random Glucose 56 L 143 H D Lactic Acid Calcium 8.4 L 8.5 Phosphorus 3.1 D Magnesium 1.7 L D Total Bilirubin AST ALT Alkaline Phosphatase Creatine Kinase 30 Troponin I 0.11 H B-Natriuretic Peptide 41.28 Total Protein Albumin Triglycerides Cholesterol Total LDL Cholesterol HDL Cholesterol Lipase Urine Color Straw Urine Appearance Clear Urine pH 7.0 Ur Specific [place] Urine Protein Negative Urine Glucose (UA) 1+ H Urine Ketones Negative Urine Blood Negative Urine Nitrite Negative Urine Bilirubin Negative Urine Urobilinogen Negative Ur Leukocyte Esterase Blood Type Antibody Screen 02/07/17 02/07/17 02/07/17 05:05 06:00 06:00 WBC 14.2 H RBC 4.71 Hgb 12.2 Hct 37.8 MCV 80.3 MCH 26.0 MCHC 32.4 RDW 21.7 H Plt Count 425 MPV 8.5 Total Counted Neutrophils % No Result Required. Neutrophils % (Manual) Band Neuts % (Manual) Lymphocytes % No Result Required. Lymphocytes % (Manual) Monocytes % (Manual) Platelet Estimate Platelet Comment PT with INR INR PTT (Actin FS) 83.0 H Puncture Site ABG pH ABG pCO2 at Pt Temp ABG pO2 at Pt Temp ABG HCO3 ABG O2 Sat (Measured) ABG O2 Content ABG Base Excess Tanner Test VBG pH POC VBG pCO2 POC VBG pO2 Mixed VBG HCO3 Carboxyhemoglobin Methemoglobin O2 Delivery Device Oxygen Flow Rate Vent Mode Vent Rate Mechanical Rate PEEP Pressure Support Vent Sodium Potassium Chloride Carbon Dioxide Anion Gap BUN Creatinine Creat Clearance w eGFR Random Glucose Lactic Acid Calcium Phosphorus Magnesium Total Bilirubin AST ALT Alkaline Phosphatase Creatine Kinase Troponin I B-Natriuretic Peptide Total Protein Albumin 3.0 L Triglycerides Cholesterol Total LDL Cholesterol HDL Cholesterol Lipase Urine Color Urine Appearance Urine pH Ur Specific [place] Urine Protein Urine Glucose (UA) Urine Ketones Urine Blood Urine Nitrite Urine Bilirubin Urine Urobilinogen Ur Leukocyte Esterase Blood Type Antibody Screen IMP: Acute Respiratory Failure Multilobar HCAP Pulmonary HTN DVT by history Septic Shock Possible component of Pulm Vascular Congestion PLAN: IVF NE for hemodynamic support ABX per ID Follow cultures Follow CXR Insert OGT and will start feedings after nutrition evaluates TTE AC ICU monitoring Dr Rubio Critical care time spent in reviewing chart, evaluating patient and formulating plan - 36 minutes.
[2017-02-07] MEDS ORDERED: VANCOMYCIN 1,000 MG in DEXTROSE 5%-WATER - 250 ML IVPB SCH (10:00)
[2017-02-07] MEDS: POTASSIUM CHLORIDE 40 MEQ in SODIUM CHLORIDE 1,000 ML IVPB SCH ×2 (10:21→19:30)
--- NOTE | 2017-02-07 10:26 | PN ---
Progress Note (short form) - Note Progress Note: ID consult dictated imp/reccd 62 year old female with sarcoid (cardiac and pulmonary)- history of respiratory failure in December-12/28 to 01/09-not intubated- after discharge to [place] per sister she has not been ambulating and had been eating poorly- she was sent to ED yesterday for lethargy and weakness developed hypotension and somnulence in ED and was intubated and central line was placed wbc is 14k she is on prednisone taper at [place] no reports of vomiting, chest pain or abdominal pain UA is negative she has chronic pulmonary disease with fibrosis but current CXRAY with increased infiltrates/congestive changes she is currently on levophed- being tapered cvp is 0 to 2 fiO2 is 40% ct scans done but not yet read lactic acid is normal multiple antibiotic allergies including history of nitin reviewed respiratory failure hypotension requiring pressors- ?volume status probable pneumonia sarcoid- cardiac and pulmonary continue vancomycin and azactaim cultures/urinary antigen influenza screen LDH/fungitell await reading of ct scans (still pending) echo over 45 minutes spent in the care of this critically ill ICU patient Problem List - Problems (1) Respiratory failure Code(s): J96.90 - RESPIRATORY FAILURE, UNSP, UNSP W HYPOXIA OR HYPERCAPNIA (2) Hypotension Code(s): I95.9 - HYPOTENSION, UNSPECIFIED (3) Pneumonia Code(s): J18.9 - PNEUMONIA, UNSPECIFIED ORGANISM Qualifiers: Qualified Code(s): J18.9 - Pneumonia, unspecified organism; J18.9 - Pneumonia, unspecified organism (4) Sarcoidosis of lung Code(s): D86.0 - SARCOIDOSIS OF LUNG (5) Allergy to multiple antibiotics Code(s): Z88.1 - ALLERGY STATUS TO OTHER ANTIBIOTIC AGENTS STATUS
[2017-02-07] MEDS: PANTOPRAZOLE SODIUM 40 MG VIAL IVPUSH SCH (10:48)
[2017-02-07] MEDS: methylPREDNISolone NA SUCC 40 MG/1 ML VIAL IVPUSH SCH ×2 (10:48→21:16)
--- NOTE | 2017-02-07 10:56 | CON.NEURO ---
Consult - History of Present Illness History of Present Illness: 62 year old female with PMHX of HTN, pHTN and CHF (rvsp 50, preserved EF, ? diastolic failure), Sarcoidosis, s/p PPM, Diabetes, COPD on chronic o2 at 5Lpm NC, GERD, Lupus, hx DVT (on Apixaban), Parkinson's (?), and chronic back pain (s /p revision for broken robert and s/p morphine pump placement 2012) who presents today from [facility] with abdominal pain, nausea, constipation, blurry vision, shortness of breath, decreased appetite, and general lethargy for the past two days. She was recently dicharged in december from this institution after COPD exacerbation, d/c on steroid taper and abx. She came in with a stroke code -- for possible R sided weakness; when eval by me yesterday, she fluctuating weakness in the UE and dysarthria yesterday ; she was subsequently intubated. When I spoke to family yesterday they were unaware of Dx of parkinsons or tremor. CT HD - no acute events. - Past Medical History Cardio/Vascular: Yes: CHF (likely normal LVEF on ECHO this admission), Other ( Sarcoidosis with cardiac involvement and history of VT s/p ICD) Pulmonary: Yes: Asthma, Sleep Apnea, Other (Sarcoidosis with cardiac involvement ) Gastrointestinal: Yes: GERD Hepatobiliary: Yes: Hepatitis C Infectious Disease: Yes: Other (HEP C) Musculoskeletal: Yes: Chronic low back pain (spinal cord stimulator) Rheumatology: Yes: Sarcoidosis Additional Medical History: in wheelchair after accident many years ago. Spinal cord stimulator. Multiple drug allergies. History of Ferrer José syndrome - Past Surgical History Past Surgical History: Yes: Permanent Pacemaker (ICD. ) - Alcohol/Substance Use Hx Alcohol Use: No - Smoking History Smoking history: Never smoked Have you smoked in the past 12 months: No Aproximately how many cigarettes per day: 0 - Social History ADL: Family Assistance History of Recent Travel: No Home Medications - Allergies Allergies/Adverse Reactions: Allergies Allergy/AdvReac Type Severity Reaction Status Date / Time medroxyprogesterone acetate Allergy Severe stepehns Verified 02/06/17 13:11 [From Depo-Provera] josé syndrome amoxicillin trihydrate Allergy Verified 02/06/17 13:11 [From Augmentin] aspirin Allergy Verified 02/06/17 13:11 azithromycin [From Zithromax] Allergy Dewey Verified 02/06/17 13:11 José syndrome ciprofloxacin HCl Allergy Verified 02/06/17 13:11 [From Cipro] codeine [Codeine] Allergy Verified 02/06/17 13:11 Iodinated Contrast- Oral and Allergy Verified 02/06/17 13:11 IV Dye [IV Dye, Iodine Containing Contrast ] ketorolac tromethamine Allergy Verified 02/06/17 13:11 [From Toradol] levofloxacin [From Levaquin] Allergy Verified 02/06/17 13:11 metronidazole [From Flagyl] Allergy Verified 02/06/17 13:11 nalbuphine HCl [From Nubain] Allergy CYANOSIS Verified 02/06/17 13:11 potassium clavulanate Allergy Verified 02/06/17 13:11 [From Augmentin] Shellfish Allergy Verified 02/06/17 13:11 sulfamethoxazole Allergy Verified 02/06/17 13:11 [From Bactrim] trimethoprim [From Bactrim] Allergy Verified 02/06/17 13:11 ivp dye Allergy Severe Swelling Uncoded 02/06/17 13:11 - Home Medications Home Medications: Ambulatory Orders Montelukast Na [Singulair -] 10 mg PO HS tablet 02/21/16 Pregabalin [Lyrica -] 75 mg PO BID capsule MDD 2 02/21/16 Insulin Lispro [Humalog] 10 unit SQ TID 08/15/16 Apixaban [Eliquis -] 5 mg PO BID #60 tablet 01/09/17 Furosemide [Lasix] 80 mg PO DAILY #30 tablet 01/09/17 Morphine *Sr* [Ms Contin -] 15 mg PO BID #30 tab MDD 2 01/09/17 Albuterol 0.083% Nebulizer Gisela [Ventolin 0.083%] 1 neb NEB Q4H 02/06/17 Atorvastatin Ca [Lipitor] 10 mg PO HS 02/06/17 Ferrous Sulfate 325 mg PO BID 02/06/17 Insulin Glargine,Hum.rec.anlog [Basaglar Kwikpen U-100] 32 unit SQ HS 02/06/17 Lisinopril 10 mg PO DAILY 02/06/17 Metolazone 5 mg PO ASDIR 02/06/17 Polyethylene Glycol 3350 [Miralax (For Daily Use) -] 17 gm PO DAILY 02/06/17 Prednisone [Prednisone 50 MG TABLETS] 30 mg PO DAILY 02/06/17 Sennosides [Senna] 8.6 mg PO DAILY 02/06/17 Tiotropium [place] [Spiriva Respimat] 4 gm IH BID 02/06/17 Family Disease History - Family Disease History Family Disease History: Other: Mother (3 CVAs, the first in her 60s) Physical Exam-Neuro Vital Signs: Vital Signs Temperature 98.6 F 02/07/17 08:00 Pulse Rate 106 H 02/07/17 10:00 Respiratory Rate 23 02/07/17 10:00 Blood Pressure 97/74 02/07/17 10:00 O2 Sat by Pulse Oximetry (%) 100 02/06/17 21:30 Constitutional: Yes: Mild Distress, Obese Neck: Yes: WNL Labs: CBC, BMP 02/07/17 05:05 02/07/17 05:05 INR, PTT INR 1.25 (0.82-1.09) H 02/06/17 13:21 - Neuro Exam Level Of Consciousness: Yes: Alert (intubated; awake and can close eyes upon request; EOMI, blinks to threat; motor-- tremor, with component of asterixis , no cogwheeling, appaers to be moving distal exe x 4; plantars down ) Imaging - Results Cat Scan: Report Reviewed, Image Reviewed Problem List - Problems (1) Hypoxia Code(s): R09.02 - HYPOXEMIA (2) Leukocytosis Code(s): D72.829 - ELEVATED WHITE BLOOD CELL COUNT, UNSPECIFIED Qualifiers: Leukocytosis type: unspecified Qualified Code(s): D72.829 - Elevated white blood cell count, unspecified; D72.829 - Elevated white blood cell count, unspecified (3) Respiratory failure Code(s): J96.90 - RESPIRATORY FAILURE, UNSP, UNSP W HYPOXIA OR HYPERCAPNIA (4) CHF (congestive heart failure) Code(s): I50.9 - HEART FAILURE, UNSPECIFIED Qualifiers: Congestive heart failure type: unspecified congestive heart failure type Congestive heart failure chronicity: acute on chronic Qualified Code(s ): I50.9 - Heart failure, unspecified; I50.9 - Heart failure, unspecified; I50.9 - Heart failure, unspecified; I50.9 - Heart failure, unspecified (5) Sarcoidosis Code(s): D86.9 - SARCOIDOSIS, UNSPECIFIED (6) Transient ischemic attack Code(s): G45.9 - TRANSIENT CEREBRAL ISCHEMIC ATTACK, UNSPECIFIED Assessment/Plan 62 year old female with PMHX of HTN, pHTN and CHF (rvsp 50, preserved EF, ? diastolic failure), Sarcoidosis, s/p PPM, Diabetes, COPD on chronic o2 at 5Lpm NC, GERD, Lupus, hx DVT (on Apixaban), Parkinson's (?), and chronic back pain (s /p revision for broken robert and s/p morphine pump placement 2012) who presents on 02/06/17 from [facility] with abdominal pain, nausea, constipation, blurry vision, shortness of breath, decreased appetite, and general lethargy for the past two days. She was recently dicharged in december from this institution after COPD exacerbation, d/c on steroid taper and abx. She came in with a stroke code -- for possible R sided weakness; when eval by me yesterday, she fluctuating weakness in the UE and dysarthria yesterday ; she was subsequently intubated. When I spoke to family yesterday they were unaware of Dx of parkinsons or tremor. CT HD - no acute events. suspect metabolic/infectious encephalopathy--ARF , hypokalemia, hypoxemia less likely an acute stroke, though small embolic events would be difficult to rule out HX of PPM, and morphine pump so unable to get MRI BRAIN ideally to get CT HD with contrast as FU, to rule out neurosarcoid /any stroke evolution changes , THOUGH she is ALLERGIC to contrast as per chart , can get CT HD routine in 24-48 hours movements may be more metabolic in origin rather than a primary Dx of PArkinsons-- to better assess when she is extubated FU ID rec Dr Londono
[2017-02-07] MEDS: ARFORMOTEROL TARTRATE 15 MCG/2 ML VIAL NEB SCH ×2 (11:00→22:08)
--- NOTE | 2017-02-07 11:42 | CONS ---
DATE OF CONSULTATION: DATE OF DICTATION: 02/07/2017 REQUESTED BY: Whit Fuchs MD This is a 62-year-old woman who was recently in the hospital from December 28 to January 09. She has now been at the SNF for the last 1 month. She was originally in the hospital here with respiratory failure. She carries a diagnosis of sarcoidosis with cardiac and pulmonary involvement, diastolic heart failure. During that admission, she developed respiratory failure, she required bipap. She was discharged to the long-term on oxygen. The sister is present at the bedside, who reports, in the last month, the patient has essentially been bedbound. She has not been participating in rehabilitation because of shortness of breath in rehabilitation. She has also been eating poorly and the sister reports not eating much more than yogurt. She was sent to the emergency room yesterday with generalized lethargy and weakness. While being evaluated in the emergency room, she became less responsive, was found to be hypercapnic as well. She was noted to be hypotensive. She was sedated and intubated and central line was placed. She was started on pressors and I am asked to see her for antibiotic recommendations. At baseline, she has chronic changes on her x-ray due to her sarcoidosis, but the changes looked worse. She was sent for CT scan of her abdomen and pelvis and chest, which are pending. She was admitted to the ICU. PAST MEDICAL HISTORY: Pulmonary and cardiac sarcoidosis. She has a history of CHF, diabetes, hypertension. She was recently at [place], where she had lower extremity cellulitis. She has a history of multiple allergies to medications, including a PENICILLIN allergy, which, on questioning, was Ferrer-José syndrome. She was HIV tested on her last admission and is HIV-negative. She has a history of a positive duplex for DVT. Ventricular tachycardia, status post AICD placement in 2012, diastolic heart failure, asthma, Ferrer-José syndrome, hepatitis C, status post Harvoni, chronic back pain; she has a stimulator. Chronic lower extremity weakness, obstructive sleep apnea, and GERD. CURRENT [facility]ICATIONS [facility]: Morphine, MS-Contin. Apparently, she was on a prednisone taper. She was receiving Spiriva and Senna as well as albuterol nebulizer, atorvastatin, bacitracin cream, Eliquis, ferrous sulfate, furosemide, lisinopril, Lyrica, metolazone, MiraLAX, and Singulair. As well, she was on insulin, Tylenol, and Zofran p.r.n. She was apparently on BiPAP as well at the long-term. ALLERGIES: DEPO-PROVERA, AMOXICILLIN, ASPIRIN, AZITHROMYCIN, CIPROFLOXACIN, CODEINE, IODINE, KETOROLAC, LEVOFLOXACIN, METRONIDAZOLE, NUBAIN, SHELLFISH, and TRIMETHOPRIM SULFAMETHOXAZOLE. Unfortunately, as she is intubated, I cannot get any further allergy history, though, on the prior admission, she was noted to have Ferrer-José reaction to PENICILLIN. FAMILY HISTORY: Not available. SURGICAL HISTORY: L2 to S1 fusion, tubal ligation, and hysterectomy. SOCIAL HISTORY: She has been at the SNF since the discharge from [facility]. there is no history of cigarette, alcohol, or substance use. REVIEW OF SYSTEMS: Per the family, is notable just for lethargy and weakness and poor appetite. PHYSICAL EXAMINATION: Vital Signs: Her temperature is 98.6; she has had no fever since admission. Pulse is 106, blood pressure is 97.74, respiratory rate is 23. HEENT: She is normocephalic. Her eyes are anicteric. She is orally intubated. There is no thrush visible. Neck: Supple. Lungs: Crackles at both bases. Heart: Regular rate and rhythm. Abdomen: Soft, nontender. Extremities: Without edema. She has a small stage II ulcer. Her white count is 14.2, hemoglobin 12.2, platelets of 425. Her BUN is 37, creatinine 1.1; on admission, her BUN was 52 and creatinine 2.1. Urinalysis is negative and cultures are pending. SUMMARY: This is a 62-year-old woman with respiratory failure, hypotension requiring pressors. 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 I would agree she needs to be treated for pneumonia. Would continue vancomycin and Azactam, given the large list of drug allergies, including Ferrer-José to PENICILLIN. She has a history as well of underlying sarcoidosis, which is complicating her imaging studies. Would continue vancomycin and Azactam. Cultures have been sent as well as a urinary antigen. Would screen her for flu. Would check an LDH and fungitell, given the chronic steroid use. Would await readings of CT scans which have been done and are still pending and would obtain an echocardiogram. Further recommendations to follow. Piero CHAVES/[id number] MTDD
[2017-02-07 11:45] LABS: PLATELET ESTIMATE SLT INCREASED (NORMAL); TOTAL CELLS COUNTED 100
[2017-02-07 11:47] LABS: ANISOCYTOSIS 2+; MACROCYTOSIS 3+
--- NOTE | 2017-02-07 12:51 | HP ---
Admitting History and Physical - Admission Chief Complaint: [facility] History of Present Illness: 62 y[facility] female [facility] with PMH HTN, pHTN, Cardiac and Pulmonary Sarcoid, hfpef, hx VT s/p ICD, DM, Lupus, hx DVT ( apixaban),hep C, GERD, chronic back pain ( s/p revision and s/p morphine pump 2012), COPD, O2 dependent 5lpm, who was transferred to ER due to increased lethargy over last 2 days, per family patient less responsive yesterday am and transfer ordered. AT ER initial evaluation gave consideration to neurological event and "code Gregory" protocol initiated-- she was evaluated by neurology and testing done which revealed no acute event --therefore no TPA. She remained hypotensive and hypercapneic ( ABG CO2 =83) - was placed on Cpap, but unable to recover- she was intubated and central line placed for pressors. -hx reviewed recent hospitalization [facility] for respiratory failure but did not require Intubation, 12/28-01/09, at which [facility] -- per family she has not been eating well or participating in rehab. She was [facility]. -Records indicate multiple abx allergies - case discussed with Dr Talamantes, abx per her recommendations. -Patient was started on pressors in ER -- levophed at 10 mcg/kg/min with MAP 60-70 -she was transferred to ICU History Source: Medical Record (known to other consultants ID and pulmonary who provided more hx) Limitations to Obtaining History: Intubated - Past Medical History Cardiovascular: Yes: CHF (likely normal LVEF on ECHO this admission), Pulmonary Hypertension, Other (Sarcoidosis with cardiac involvement and history of VT s/p ICD) Pulmonary: Yes: Asthma, O2 Dependent, Sleep Apnea, Other (Sarcoidosis with cardiac involvement). No: Previously Intubated Gastrointestinal: Yes: GERD Hepatobiliary: Yes: Hepatitis C Heme/Onc: Yes: Anemia Infectious Disease: Yes: Other (HEP C) Musculoskeletal: Yes: Chronic low back pain (spinal cord stimulator) Rheumatology: Yes: Sarcoidosis - Past Surgical History Past Surgical History: Yes: Permanent Pacemaker (ICD. ) - Advance Directives Advance Directives: Yes: MOLST - Smoking History Smoking history: Never smoked Have you smoked in the past 12 months: No Aproximately how many cigarettes per day: 0 - Alcohol/Substance Use Hx Alcohol Use: No - Social History ADL: Family Assistance History of Recent Travel: No Home Medications - Allergies Allergies/Adverse Reactions: Allergies Allergy/AdvReac Type Severity Reaction Status Date / Time medroxyprogesterone acetate Allergy Severe stepehns Verified 02/06/17 13:11 [From Depo-Provera] josé syndrome amoxicillin trihydrate Allergy Verified 02/06/17 13:11 [From Augmentin] aspirin Allergy Verified 02/06/17 13:11 azithromycin [From Zithromax] Allergy Dewey Verified 02/06/17 13:11 José syndrome ciprofloxacin HCl Allergy Verified 02/06/17 13:11 [From Cipro] codeine [Codeine] Allergy Verified 02/06/17 13:11 Iodinated Contrast- Oral and Allergy Verified 02/06/17 13:11 IV Dye [IV Dye, Iodine Containing Contrast ] ketorolac tromethamine Allergy Verified 02/06/17 13:11 [From Toradol] levofloxacin [From Levaquin] Allergy Verified 02/06/17 13:11 metronidazole [From Flagyl] Allergy Verified 02/06/17 13:11 nalbuphine HCl [From Nubain] Allergy CYANOSIS Verified 02/06/17 13:11 potassium clavulanate Allergy Verified 02/06/17 13:11 [From Augmentin] Shellfish Allergy Verified 02/06/17 13:11 sulfamethoxazole Allergy Verified 02/06/17 13:11 [From Bactrim] trimethoprim [From Bactrim] Allergy Verified 02/06/17 13:11 ivp dye Allergy Severe Swelling Uncoded 02/06/17 13:11 - Home Medications Home Medications: Ambulatory Orders Montelukast Na [Singulair -] 10 mg PO HS tablet 02/21/16 Pregabalin [Lyrica -] 75 mg PO BID capsule MDD 2 02/21/16 Insulin Lispro [Humalog] 10 unit SQ TID 08/15/16 Apixaban [Eliquis -] 5 mg PO BID #60 tablet 01/09/17 Furosemide [Lasix] 80 mg PO DAILY #30 tablet 01/09/17 Morphine *Sr* [Ms Contin -] 15 mg PO BID #30 tab MDD 2 01/09/17 Albuterol 0.083% Nebulizer Gisela [Ventolin 0.083%] 1 neb NEB Q4H 02/06/17 Atorvastatin Ca [Lipitor] 10 mg PO HS 02/06/17 Ferrous Sulfate 325 mg PO BID 02/06/17 Insulin Glargine,Hum.rec.anlog [Basaglar [place]pen U-100] 32 unit SQ HS 02/06/17 Lisinopril 10 mg PO DAILY 02/06/17 Metolazone 5 mg PO ASDIR 02/06/17 Polyethylene Glycol 3350 [Miralax (For Daily Use) -] 17 gm PO DAILY 02/06/17 Prednisone [Prednisone 50 MG TABLETS] 30 mg PO DAILY 02/06/17 Sennosides [Senna] 8.6 mg PO DAILY 02/06/17 Tiotropium [place] [Spiriva Respimat] 4 gm IH BID 02/06/17 Family Disease History - Family Disease History Family Disease History: Other: Mother (3 CVAs, the first in her 60s) Review of Systems - Review of Systems Constitutional: reports: Lethargy, Loss of Appetite, Malaise, Weakness. denies : Chills, Fever Eyes: denies: Blurred Vision, Double Vision HENT: reports: No Symptoms Neck: reports: No Symptoms Cardiovascular: reports: Shortness of Breath. denies: Chest Pain, Edema Respiratory: reports: SOB, SOB on Exertion. denies: Cough, Exercise Intolerance , Snoring, Wheezing Gastrointestinal: reports: Abdominal Pain, Indigestion. denies: Bloating, Constipation, Diarrhea Genitourinary: reports: No Symptoms Breasts: reports: No Symptoms Reported Musculoskeletal: reports: Back Pain, Muscle Pain Integumentary: reports: No Symptoms Neurological: reports: Confusion, Incoordination, Tremors, Weakness, Other ( neuro exam not consistent at time of evaluation Neurology / ER / myself) Endocrine: reports: No Symptoms Hematology/Lymphatic: reports: No Symptoms Psychiatric: reports: Depression Physical Examination Vital Signs: Vital Signs Temperature 99.2 F 02/07/17 12:00 Pulse Rate 90 02/07/17 12:43 Respiratory Rate 28 H 02/07/17 12:46 Blood Pressure 115/69 02/07/17 12:00 O2 Sat by Pulse Oximetry (%) 97 02/07/17 12:43 Constitutional: Yes: Mild Distress, Obese Eyes: Yes: Conjunctiva Clear HENT: Yes: Atraumatic, Normocephalic Neck: Yes: Supple, Trachea Midline Cardiovascular: Yes: Pulse Irregular Respiratory: Yes: Accessory Muscle Use, Diminished, Rhonchi Gastrointestinal: Yes: Normal Bowel Sounds ...Rectal Exam: Yes: Deferred Renal/: Yes: [place] Present. No: Bladder Distention, Hematuria, Menses Present Breast(s): Yes: WNL Musculoskeletal: Yes: Back Pain, Muscle Weakness. No: Joint Swelling, Muscle Pain Extremities: No: Calf Tenderness, Deformity, External Rotation, Shortened Edema: No Peripheral Pulses WNL: Yes Peripheral Pulses: Left Radial: 1+ Integumentary: Yes: WNL Neurological: Yes: Other (currently intubated will follow commands and able to express herself with her hands) ...Motor Strength: WNL Labs: CBC, BMP 02/07/17 05:05 02/07/17 05:05 Problem List - Problems (1) Septic shock Assessment/Plan: hypotensive / WBC 14 / not responding to fluids central line on pressors levophed 10mcg/kg/min to keep MAP >65 follow lactic acid will required steroids - [facility] Code(s): A41.9 - SEPSIS, UNSPECIFIED ORGANISM R65.21 - SEVERE SEPSIS WITH SEPTIC SHOCK (2) Respiratory failure Assessment/Plan: Intubated CXR with increased marking / on chronic disease ventilatory support pulmonary consult ICU care Code(s): J96.90 - RESPIRATORY FAILURE, UNSP, UNSP W HYPOXIA OR HYPERCAPNIA (3) SHERRI (acute kidney injury) Assessment/Plan: base line Cr 0.8 kidney injury / dehydration ? / drug induced ? / mechanical IV fluids follow labs [place] I and Os U/A Code(s): N17.9 - ACUTE KIDNEY FAILURE, UNSPECIFIED (4) Hypotension Assessment/Plan: sepsis / dehydration / support with pressors / fluid resuscitation / ICU monitoring Code(s): I95.9 - HYPOTENSION, UNSPECIFIED (5) Hypercarbia Assessment/Plan: Cpap unsuccessful intubated Pulmonary follow up wean as tolerated Code(s): R06.89 - OTHER ABNORMALITIES OF BREATHING (6) Hypoxia Code(s): R09.02 - HYPOXEMIA (7) Pneumonia Assessment/Plan: CXr with increased marking from previous ? component of CHF + PNA hx of sarcoid abx per ID ( hx of multiple allergies ) Code(s): J18.9 - PNEUMONIA, UNSPECIFIED ORGANISM Qualifiers: Pneumonia type: due to unspecified organism Laterality: bilateral Lung location: unspecified part of lung Qualified Code(s): J18.9 - Pneumonia, unspecified organism; J18.9 - Pneumonia, unspecified organism (8) CHF (congestive heart failure) Assessment/Plan: HFpEF CVP in place will follow pressures doubt CHF in view of weight loss / inc Cr / no edema Code(s): I50.9 - HEART FAILURE, UNSPECIFIED Qualifiers: Congestive heart failure type: unspecified congestive heart failure type Congestive heart failure chronicity: acute on chronic Qualified Code(s ): I50.9 - Heart failure, unspecified; I50.9 - Heart failure, unspecified; I50.9 - Heart failure, unspecified; I50.9 - Heart failure, unspecified (9) COPD (chronic obstructive pulmonary disease) Code(s): J44.9 - CHRONIC OBSTRUCTIVE PULMONARY DISEASE, UNSPECIFIED Qualifiers : COPD type: COPD with acute exacerbation Qualified Code(s): J44.1 - Chronic obstructive pulmonary disease with (acute) exacerbation; J44.1 - Chronic obstructive pulmonary disease with (acute) exacerbation; J44.1 - Chronic obstructive pulmonary disease with (acute) exacerbation; J44.1 - Chronic obstructive pulmonary disease with (acute) exacerbation (10) Chronic low back pain Code(s): M54.5 - LOW BACK PAIN G89.29 - OTHER CHRONIC PAIN (11) ICD (implantable cardioverter-defibrillator), dual, in situ Code(s): Z95.810 - PRESENCE OF AUTOMATIC (IMPLANTABLE) CARDIAC DEFIBRILLATOR (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
[2017-02-07] MEDS: MUPIROCIN 2% TOPICAL OINTMENT FOR DECOLONIZATION NS SCH ×2 (12:54→21:16)
--- NOTE | 2017-02-07 13:48 | PN ---
Progress Note (short form) - Note Progress Note: patient seen in ICU this am Intubated / comfortable /alert/ able to respond appropriately on tapering pressors levophed 6mcg/kg/min [id number] Vital Signs Period Temp Pulse Resp BP Sys/Londono Pulse Ox Last 24 Hr 96.8 F-99.4 F 81-123 12-32 58-147/35-108 96-100 Intake & Output 02/04/17 02/05/17 02/06/17 02/07/17 23:59 23:59 23:59 23:59 Intake Total 1350 1125 Output Total 1110 2200 Balance 240 -1075 Weight 174 lb 4.8 oz 172 lb 8 oz Intubated / NGT in place neck supple no jvd heart irreg tachy lungs scattered rhochi / no wheezing abd soft BS + not distended ext trace edema CBC, BMP 02/07/17 05:05 02/07/17 05:05 alb =3.0 lactic acid nl X2 improved renal function CT of chest official reading pending CT of abd official reading pending Microbiology 02/07/17 12:10 Nasopharyngeal Swab Influenza Types A,B Antigen (SANGITA) - Final 02/07/17 12:10 Nasopharyngeal Swab - Final 02/07/17 05:45 Nasopharyngeal Swab Respiratory Virus (PCR) - Preliminary 02/06/17 10:20 Sputum - Endotrachea Suction/Ventilator Gram Stain - Final 02/06/17 14:30 Urine - Urine Clean Catch Urine Culture - Final NO GROWTH OBTAINED Active Medications Arformoterol Tartrate (Brovana (Restricted To Pulmonology/Resp) -) 1 amp NEB BID EYAL Last Admin: 02/07/17 11:00 Dose: 1 amp Chlorhexidine Gluconate (Hibiclens For Decolonization -) 1 applic TP HS EYAL Fentanyl (Sublimaze Injection -) 50 mcg IVPUSH Q1H PRN PRN Reason: PAIN LEVEL 1-5 Stop: 02/07/17 21:59 Last Admin: 02/07/17 12:50 Dose: 50 mcg Heparin Sodium (Porcine) (Heparin -) 1,000 unit IVPUSH PRN PRN PRN Reason: Heparin Heparin Sodium (Porcine) (Heparin -) 5,000 unit IVPUSH PRN PRN PRN Reason: Heparin Norepinephrine Bitartrate 8, (000 mcg/ Dextrose) 500 mls @ 18.75 mls/hr IV TITR EYAL; 5 MCG/MIN PRN Reason: Protocol Last Titration: 02/07/17 11:04 Dose: 4 mcg/min Heparin Sodium/Dextrose (Heparin Infusion -) 500 mls @ 20 mls/hr IVPB TITR EYAL ; 1,000 UNITS/HR PRN Reason: Protocol Last Admin: 02/06/17 23:08 Dose: 20 mls/hr Aztreonam 2 gm/ Dextrose 100 mls @ 100 mls/hr IV Q8H-IV EYAL PRN Reason: Protocol Last Admin: 02/07/17 09:19 Dose: 100 mls/hr Potassium Chloride 40 meq/ (Sodium Chloride) 1,020 mls @ 100 mls/hr IVPB Q10H EYAL Last Admin: 02/07/17 10:21 Dose: 100 mls/hr Methylprednisolone Sodium Succinate (Solu-Medrol -) 40 mg IVPUSH BID [facility] Last Admin: 02/07/17 10:48 Dose: 40 mg Mupirocin (Bactroban Ointment (For Decolonization) -) 1 applic NS BID [facility] Stop: 02/12/17 09:59 Last Admin: 02/07/17 12:54 Dose: 1 applic Pantoprazole Sodium (Protonix Iv) 40 mg IVPUSH DAILY [facility] Last Admin: 02/07/17 10:48 Dose: 40 mg Vancomycin HCl (Vancomycin (Pre-Docked)) 1,000 mg IVPB BID EYAL PRN Reason: Protocol [address] resident with PMH HTN, pHTN, Cardiac and Pulmonary Sarcoid, hfpef, hx VT s/p ICD, DM, Lupus, hx DVT ( apixaban),hep C, GERD, chronic back pain ( s/p revision and s/p morphine pump 2012), COPD, O2 dependent 5lpm, who was transferred to ER due to increased lethargy over last 2 days, per family patient less responsive yesterday am and transfer ordered. Septic shock requiring intubation and pressors started in ER Currently in ICU. -intubated / awake / alert -taper pressors as tolerated keep MAp >65 -wean from vent once hemodynamically stable current FiO2 40% with Sat>95 -Steroid stress doses / ( adjunct tx septic shock) -sedation as BP permits -management per ICU attending / appreciate and discuss Problem List - Problems (1) Septic shock Code(s): A41.9 - SEPSIS, UNSPECIFIED ORGANISM R65.21 - SEVERE SEPSIS WITH SEPTIC SHOCK (2) Respiratory failure Code(s): J96.90 - RESPIRATORY FAILURE, UNSP, UNSP W HYPOXIA OR HYPERCAPNIA (3) SHERRI (acute kidney injury) Code(s): N17.9 - ACUTE KIDNEY FAILURE, UNSPECIFIED (4) Hypotension Code(s): I95.9 - HYPOTENSION, UNSPECIFIED (5) Hypercarbia Code(s): R06.89 - OTHER ABNORMALITIES OF BREATHING (6) Hypoxia Code(s): R09.02 - HYPOXEMIA (7) Pneumonia Code(s): J18.9 - PNEUMONIA, UNSPECIFIED ORGANISM Qualifiers: Pneumonia type: due to unspecified organism Laterality: bilateral Lung location: unspecified part of lung Qualified Code(s): J18.9 - Pneumonia, unspecified organism; J18.9 - Pneumonia, unspecified organism (8) CHF (congestive heart failure) Code(s): I50.9 - HEART FAILURE, UNSPECIFIED Qualifiers: Congestive heart failure type: unspecified congestive heart failure type Congestive heart failure chronicity: acute on chronic Qualified Code(s ): I50.9 - Heart failure, unspecified; I50.9 - Heart failure, unspecified; I50.9 - Heart failure, unspecified; I50.9 - Heart failure, unspecified (9) COPD (chronic obstructive pulmonary disease) Code(s): J44.9 - CHRONIC OBSTRUCTIVE PULMONARY DISEASE, UNSPECIFIED Qualifiers : COPD type: COPD with acute exacerbation Qualified Code(s): J44.1 - Chronic obstructive pulmonary disease with (acute) exacerbation; J44.1 - Chronic obstructive pulmonary disease with (acute) exacerbation; J44.1 - Chronic obstructive pulmonary disease with (acute) exacerbation; J44.1 - Chronic obstructive pulmonary disease with (acute) exacerbation (10) Chronic low back pain Code(s): M54.5 - LOW BACK PAIN G89.29 - OTHER CHRONIC PAIN (11) ICD (implantable cardioverter-defibrillator), dual, in situ Code(s): Z95.810 - PRESENCE OF AUTOMATIC (IMPLANTABLE) CARDIAC DEFIBRILLATOR (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
[2017-02-07 15:07] LABS: URINE LEUK ESTERASE Negative (NEGATIVE)
[2017-02-07] MEDS ORDERED: GENTAMICIN INJECTION 300 MG in SODIUM CHLORIDE 100 ML IVPB ONE ×2 (15:26→15:36)
[2017-02-07] MEDS ORDERED: SODIUM CHLORIDE 1,000 ML with POTASSIUM CHLORIDE 20 MEQ IVPB SCH (15:30)
[2017-02-07] MEDS: VANCOMYCIN 1 GRAM (PRE-DOCKED) 1,000 MG/250 ML BAG IVPB SCH (21:15)
[2017-02-07] MEDS: CHLORHEXIDINE GLUCONATE 4% CLEANSER FOR DECOLONIZATION TP SCH (21:16)
[2017-02-07] MEDS: NOREPINEPHRINE BITARTRATE 8,000 MCG in DEXTROSE 5%-WATER - 492 ML IV SCH (21:17)
[2017-02-07] MEDS ORDERED: PT OWN MED DRAWER 7, Y5N ONE (21:41)
[2017-02-07] MEDS: HEPARIN INFUSION - 500 ML IVPB SCH (22:55)
[2017-02-08] MEDS: AZTREONAM 2 GM in DEXTROSE 5%-WATER - 100 ML IV SCH ×3 (01:12→17:41)
[2017-02-08] MEDS: FENTANYL INJECTION 500 MCG in DEXTROSE 5%-WATER - 90 ML IJ SCH (01:30)
[2017-02-08] MEDS: POTASSIUM CHLORIDE 40 MEQ in SODIUM CHLORIDE 1,000 ML IVPB SCH (05:30)
[2017-02-08 06:15] LABS: BASOPHIL 0.1 % (0-2.0); MCHC 32.1 g/dl (32.0-36.0); MEAN CELL VOLUME 80.9 fl (80-96); MEAN PLT VOLUME 8.3 fl (7.5-11.1); NEUTROPHILS 85.7 % (42.8-82.8); PLATELET COUNT 279 K/MM3 (134-434); RDW 21.3 % (11.6-15.6); WHITE BLOOD COUNT 12.5 K/mm3 (4.0-10.0)
--- NOTE | 2017-02-08 07:57 | PN ---
Progress Note, Physician Chief Complaint: ID Chart reviewed patient examined Currently intubated on pressors Empiric antibiotics in face of many allergies Vancomycin and Aztreonam day 1 Rx - Current Medication List Current Medications: Active Medications Arformoterol Tartrate (Brovana (Restricted To Pulmonology/Resp) -) 1 amp NEB BID [facility] Last Admin: 02/07/17 22:08 Dose: 1 amp Chlorhexidine Gluconate (Hibiclens For Decolonization -) 1 applic TP HS [facility] Last Admin: 02/07/17 21:16 Dose: 1 applic Fentanyl (Sublimaze Injection -) 100 mcg IVPUSH ONCE PRN PRN Reason: PAIN LEVEL 1-5 Stop: 02/08/17 22:37 Last Admin: 02/08/17 00:50 Dose: 100 mcg Heparin Sodium (Porcine) (Heparin -) 1,000 unit IVPUSH PRN PRN PRN Reason: Heparin Heparin Sodium (Porcine) (Heparin -) 5,000 unit IVPUSH PRN PRN PRN Reason: Heparin Norepinephrine Bitartrate 8, (000 mcg/ Dextrose) 500 mls @ 18.75 mls/hr IV TITR EYAL; 5 MCG/MIN PRN Reason: Protocol Last Titration: 02/08/17 05:00 Dose: 0 mcg/min Heparin Sodium/Dextrose (Heparin Infusion -) 500 mls @ 20 mls/hr IVPB TITR EYAL ; 1,000 UNITS/HR PRN Reason: Protocol Last Titration: 02/08/17 06:45 Dose: 0 units/hr Aztreonam 2 gm/ Dextrose 100 mls @ 100 mls/hr IV Q8H-IV EYAL PRN Reason: Protocol Last Admin: 02/08/17 01:12 Dose: 100 mls/hr Potassium Chloride 40 meq/ (Sodium Chloride) 1,020 mls @ 100 mls/hr IVPB Q10H [facility] Last Admin: 02/08/17 05:30 Dose: 100 mls/hr Fentanyl 500 mcg/ Dextrose 100 mls @ 10 mls/hr IJ TITR EYAL; 50 MCG/HR PRN Reason: Protocol Last Titration: 02/08/17 05:00 Dose: 100 mcg/hr Methylprednisolone Sodium Succinate (Solu-Medrol -) 40 mg IVPUSH BID [facility] Last Admin: 02/07/17 21:16 Dose: 40 mg Mupirocin (Bactroban Ointment (For Decolonization) -) 1 applic NS BID [facility] Stop: 02/12/17 09:59 Last Admin: 02/07/17 21:16 Dose: 1 applic Pantoprazole Sodium (Protonix Iv) 40 mg IVPUSH DAILY [facility] Last Admin: 02/07/17 10:48 Dose: 40 mg Vancomycin HCl (Vancomycin (Pre-Docked)) 1,000 mg IVPB BID [facility] PRN Reason: Protocol Last Admin: 02/07/17 21:15 Dose: 1,000 mg - Objective Vital Signs: Vital Signs Temperature 98.9 F 02/08/17 06:00 Pulse Rate 72 02/08/17 06:00 Respiratory Rate 19 02/08/17 06:00 Blood Pressure 124/77 02/08/17 06:00 O2 Sat by Pulse Oximetry (%) 99 02/07/17 20:15 Constitutional: Yes: Other (Intubated) Neck: Yes: WNL, Supple Cardiovascular: Yes: Regular Rate and Rhythm, S1, S2. No: Murmur Respiratory: Yes: WNL, Regular, CTA Bilaterally, Rhonchi Gastrointestinal: Yes: WNL, Normal Bowel Sounds, Soft. No: Tenderness Extremities: No: Cold, Cool, Cyanosis Labs: CBC, BMP 02/08/17 05:00 INR, PTT INR 1.25 (0.82-1.09) H 02/06/17 13:21 Problem List - Problems (1) Allergy to multiple antibiotics Code(s): Z88.1 - ALLERGY STATUS TO OTHER ANTIBIOTIC AGENTS STATUS (2) Respiratory failure Code(s): J96.90 - RESPIRATORY FAILURE, UNSP, UNSP W HYPOXIA OR HYPERCAPNIA (3) Septic shock Code(s): A41.9 - SEPSIS, UNSPECIFIED ORGANISM R65.21 - SEVERE SEPSIS WITH SEPTIC SHOCK (4) Gram-negative bacteremia Code(s): R78.81 - BACTEREMIA Assessment/Plan Microbiology 02/07/17 13:57 Urine For Antigen Detection Legionella Antigen - Final 02/07/17 13:57 Urine For Antigen Detection Streptococcus pneumoniae Antigen (M - Final 02/07/17 12:10 Nasopharyngeal Swab Influenza Types A,B Antigen (SANGITA) - Final 02/07/17 12:10 Nasopharyngeal Swab - Final 02/06/17 14:30 Urine - Urine Clean Catch Urine Culture - Final NO GROWTH OBTAINED 02/06/17 10:20 Sputum - Endotrachea Suction/Ventilator Gram Stain - Final 02/06/17 14:30 Blood - Peripheral Venous Blood Culture - Preliminary Pending Organism 02/06/17 14:30 Blood - Peripheral Venous Blood Culture - Preliminary NO GROWTH OBTAINED AFTER 24 HOURS, INCUBATION TO CONTINUE FOR 4 DAYS. Laboratory Tests 02/07/17 02/08/17 05:05 05:00 WBC 12.5 H Hgb 10.5 L D Hct 32.6 Plt Count 279 D BUN 37 H Creatinine 1.1 H D Assessment Sepsis syndrome Gram negative bacteremia Respiratory failure Bilateral pneumonia History of sarcoidosis Plan For now continue Aztreonam Patient has numerous allergie to drugs Awaiting c/s blood sputum CRITICAL CARE TIME SPENT 35 MINUTES
[2017-02-08] MEDS ORDERED: PT OWN MED DRAWER 7, Y5N ONE ×2 (09:12→17:39)
[2017-02-08] MEDS: MUPIROCIN 2% TOPICAL OINTMENT FOR DECOLONIZATION NS SCH (09:18)
[2017-02-08] MEDS: PANTOPRAZOLE SODIUM 40 MG VIAL IVPUSH SCH (09:18)
[2017-02-08] MEDS: methylPREDNISolone NA SUCC 40 MG/1 ML VIAL IVPUSH SCH ×2 (09:20→21:36)
[2017-02-08] MEDS: VANCOMYCIN 1 GRAM (PRE-DOCKED) 1,000 MG/250 ML BAG IVPB SCH ×2 (09:21→21:37)
[2017-02-08 09:24] LABS: ALBUMIN 2.2 g/dl (3.4-5.0); ALK PHOS 91 U/L (45-117); ANION GAP 8 (8-16); BILIRUBIN,TOTAL 0.5 mg/dL (0.2-1.0); CALCIUM 7.7 mg/dL (8.5-10.1); CO2 30 mmol/L (21-32); CREATININE 0.8 mg/dL (0.55-1.02); GLUCOSE,RANDOM 266 mg/dL (74-106); LDH 344 U/L (84-246); MAGNESIUM 1.3 mg/dL (1.8-2.4); PHOSPHOROUS 2.2 mg/dL (2.5-4.9); SGOT/AST 16 U/L (15-37); SGPT/ALT 19 U/L (12-78); TOT PROT 6.3 g/dl (6.4-8.2)
[2017-02-08] MEDS: ARFORMOTEROL TARTRATE 15 MCG/2 ML VIAL NEB SCH ×2 (10:16→22:52)
[2017-02-08] MEDS ORDERED: MAGNESIUM SULF 50% (8.12 MEQ/2 ML-1 GM VIAL) IVPB ONE (12:50)
--- NOTE | 2017-02-08 13:34 | PN ---
Teaching Attending Note Name of Resident: Ortiz Francis ATTENDING PHYSICIAN STATEMENT I saw and evaluated the patient. I reviewed the resident's note and discussed the case with the resident. I agree with the resident's findings and plan as documented. SUBJECTIVE: Patient seen and examined in the ICU. Intubated and sedated. Off NE. AC Mode of vent, 40% FiO2. Intake & Output 02/05/17 02/06/17 02/07/17 02/08/17 23:59 23:59 23:59 23:59 Intake Total 1350 2972 1785 Output Total 1110 3800 1400 Balance 240 -828 385 Weight 174 lb 4.8 oz 172 lb 8 oz 172 lb 3.2 oz Last Vital Signs Temp Pulse Resp BP Pulse Ox 98.5 F 86 18 130/73 99 02/08/17 10:00 02/08/17 12:00 02/08/17 12:00 02/08/17 12:00 02/07/17 20:15 Active Medications Arformoterol Tartrate (Brovana (Restricted To Pulmonology/Resp) -) 1 amp NEB BID [facility] Last Admin: 02/08/17 10:16 Dose: 1 amp Chlorhexidine Gluconate (Hibiclens For Decolonization -) 1 applic TP HS [facility] Last Admin: 02/07/17 21:16 Dose: 1 applic Fentanyl (Sublimaze Injection -) 100 mcg IVPUSH ONCE PRN PRN Reason: PAIN LEVEL 1-5 Stop: 02/08/17 22:37 Last Admin: 02/08/17 00:50 Dose: 100 mcg Heparin Sodium (Porcine) (Heparin -) 1,000 unit IVPUSH PRN PRN PRN Reason: Heparin Heparin Sodium (Porcine) (Heparin -) 5,000 unit IVPUSH PRN PRN PRN Reason: Heparin Norepinephrine Bitartrate 8, (000 mcg/ Dextrose) 500 mls @ 18.75 mls/hr IV TITR EYAL; 5 MCG/MIN PRN Reason: Protocol Last Titration: 02/08/17 05:00 Dose: 0 mcg/min Heparin Sodium/Dextrose (Heparin Infusion -) 500 mls @ 20 mls/hr IVPB TITR EYAL ; 1,000 UNITS/HR PRN Reason: Protocol Last Titration: 02/08/17 07:45 Dose: 850 units/hr Aztreonam 2 gm/ Dextrose 100 mls @ 100 mls/hr IV Q8H-IV EYAL PRN Reason: Protocol Last Admin: 02/08/17 09:23 Dose: 100 mls/hr Potassium Chloride 40 meq/ (Sodium Chloride) 1,020 mls @ 100 mls/hr IVPB Q10H [facility] Last Admin: 02/08/17 05:30 Dose: 100 mls/hr Fentanyl 500 mcg/ Dextrose 100 mls @ 10 mls/hr IJ TITR EYAL; 50 MCG/HR PRN Reason: Protocol Last Titration: 02/08/17 05:00 Dose: 100 mcg/hr Methylprednisolone Sodium Succinate (Solu-Medrol -) 40 mg IVPUSH BID [facility] Last Admin: 02/08/17 09:20 Dose: 40 mg Mupirocin (Bactroban Ointment (For Decolonization) -) 1 applic NS BID [facility] Stop: 02/12/17 09:59 Last Admin: 02/08/17 09:18 Dose: 1 applic Pantoprazole Sodium (Protonix Iv) 40 mg IVPUSH DAILY [facility] Last Admin: 02/08/17 09:18 Dose: 40 mg Vancomycin HCl (Vancomycin (Pre-Docked)) 1,000 mg IVPB BID [facility] PRN Reason: Protocol Last Admin: 02/08/17 09:21 Dose: 1,000 mg General Appearance: intubated / awake Head: Atraumatic, normocephalic Eyes: Pupils equal reactive round, EOMI Cardiac: Regular rate and rhythym, no murmurs, no rubs, no gallops appreciated Lungs: coarse bilateral rhonchi, no wheezes Abdomen: Soft, non distended, normal bowel sounds diffuse abdominal tenderness to palpation Extremities: 3+ pitting dependant edema, strong pulses throughout Skin: Warm and dry, no rashes or lesions, no rash, no petechiae Neuro: sedated Laboratory Results - last 24 hr 02/06/17 02/06/17 02/08/17 22:22 23:00 05:00 WBC RBC Hgb Hct MCV MCH MCHC RDW Plt Count MPV Neutrophils % Lymphocytes % Monocytes % Eosinophils % Basophils % PTT (Actin FS) 138.1 H D Sodium Potassium Chloride Carbon Dioxide Anion Gap BUN Creatinine Creat Clearance w eGFR POC Glucometer 62.56266 Random Glucose Calcium Phosphorus Magnesium Total Bilirubin AST ALT Alkaline Phosphatase LD Total Total Protein Albumin Urine Color Straw Urine Appearance Clear Urine pH 7.0 Ur Specific [place] 1.015 Urine Protein Negative Urine Glucose (UA) 1+ H Urine Ketones Negative Urine Blood Negative Urine Nitrite Negative Urine Bilirubin Negative Urine Urobilinogen Negative Ur Leukocyte Esterase Negative 02/08/17 02/08/17 05:00 05:00 WBC 12.5 H RBC 4.03 Hgb 10.5 L D Hct 32.6 MCV 80.9 MCH 26.0 MCHC 32.1 RDW 21.3 H Plt Count 279 D MPV 8.3 Neutrophils % 85.7 H Lymphocytes % 12.8 D Monocytes % 1.4 L Eosinophils % 0.0 Basophils % 0.1 PTT (Actin FS) Sodium 132 L Potassium 4.6 D Chloride 94 L Carbon Dioxide 30 D Anion Gap 8 BUN 21 H D Creatinine 0.8 D Creat Clearance w eGFR > 60 POC Glucometer Random Glucose 266 H D Calcium 7.7 L Phosphorus 2.2 L D Magnesium 1.3 L D Total Bilirubin 0.5 D AST 16 ALT 19 D Alkaline Phosphatase 91 LD Total 344 H D Total Protein 6.3 L Albumin 2.2 L D Urine Color Urine Appearance Urine pH Ur Specific [place] Urine Protein Urine Glucose (UA) Urine Ketones Urine Blood Urine Nitrite Urine Bilirubin Urine Urobilinogen Ur Leukocyte Esterase IMP: Acute Respiratory Failure Multilobar HCAP Pulmonary HTN DVT by history Septic Shock Possible component of Pulm Vascular Congestion PLAN: Monitor off pressors. Minimize IVF ABX per ID Follow cultures Follow CXR TTE AC Wean trials Dr Rubio Critical care time spent in reviewing chart, evaluating patient and formulating plan - 36 minutes.
--- NOTE | 2017-02-08 13:39 | PN ---
Physical Exam: SUBJECTIVE: Patient seen and examined. intubated on ventilator support. Off pressor support. afebrile overnight. OBJECTIVE: Vital Signs Period Temp Pulse Resp BP Sys/Londono Pulse Ox Last 24 Hr 98.4 F-98.9 F 72-111 12-26 94-130/63-86 99-99 General Appearance: intubated but awake. Head: Atraumatic, normocephalic Eyes: Pupils equal reactive round, EOMI Cardiac: Regular rate and rhythym, no murmurs, no rubs, no gallops appreciated Lungs: bilateral rhonchi, no wheezes, Abdomen: Soft, non distended, normal bowel sounds diffuse abdominal tenderness to palpation Extremities: pitting edema 2+ present. Skin: Warm and dry, no rashes or lesions, no rash, no petechiae Neuro: sedated Laboratory Results - last 24 hr 02/06/17 02/06/17 02/08/17 22:22 23:00 05:00 WBC RBC Hgb Hct MCV MCH MCHC RDW Plt Count MPV Neutrophils % Lymphocytes % Monocytes % Eosinophils % Basophils % PTT (Actin FS) 138.1 H D Sodium Potassium Chloride Carbon Dioxide Anion Gap BUN Creatinine Creat Clearance w eGFR POC Glucometer 62.50448 Random Glucose Calcium Phosphorus Magnesium Total Bilirubin AST ALT Alkaline Phosphatase LD Total Total Protein Albumin Urine Color Straw Urine Appearance Clear Urine pH 7.0 Ur Specific [place] 1.015 Urine Protein Negative Urine Glucose (UA) 1+ H Urine Ketones Negative Urine Blood Negative Urine Nitrite Negative Urine Bilirubin Negative Urine Urobilinogen Negative Ur Leukocyte Esterase Negative 02/08/17 02/08/17 05:00 05:00 WBC 12.5 H RBC 4.03 Hgb 10.5 L D Hct 32.6 MCV 80.9 MCH 26.0 MCHC 32.1 RDW 21.3 H Plt Count 279 D MPV 8.3 Neutrophils % 85.7 H Lymphocytes % 12.8 D Monocytes % 1.4 L Eosinophils % 0.0 Basophils % 0.1 PTT (Actin FS) Sodium 132 L Potassium 4.6 D Chloride 94 L Carbon Dioxide 30 D Anion Gap 8 BUN 21 H D Creatinine 0.8 D Creat Clearance w eGFR > 60 POC Glucometer Random Glucose 266 H D Calcium 7.7 L Phosphorus 2.2 L D Magnesium 1.3 L D Total Bilirubin 0.5 D AST 16 ALT 19 D Alkaline Phosphatase 91 LD Total 344 H D Total Protein 6.3 L Albumin 2.2 L D Urine Color Urine Appearance Urine pH Ur Specific [place] Urine Protein Urine Glucose (UA) Urine Ketones Urine Blood Urine Nitrite Urine Bilirubin Urine Urobilinogen Ur Leukocyte Esterase Active Medications Generic Name Dose Route Start Last Admin Trade Name Freq PRN Reason Stop Dose Admin Arformoterol Tartrate 1 amp 02/07/17 10:00 02/08/17 10:16 Brovana (Restricted To Pulmonology/Resp) - NEB 1 amp BID EYAL Administration Chlorhexidine Gluconate 1 applic 02/07/17 22:00 02/07/17 21:16 Hibiclens For Decolonization - TP 1 applic HS EYAL Administration Fentanyl 100 mcg 02/07/17 22:38 02/08/17 00:50 Sublimaze Injection - IVPUSH 02/08/17 22:37 100 mcg ONCE PRN Administration PAIN LEVEL 1-5 Heparin Sodium (Porcine) 1,000 unit 02/06/17 22:58 Heparin - IVPUSH PRN PRN Heparin Heparin Sodium (Porcine) 5,000 unit 02/06/17 22:58 Heparin - IVPUSH PRN PRN Heparin Norepinephrine Bitartrate 8, 500 mls @ 18.75 mls/hr 02/06/17 22:00 02/08/17 05: 00 000 mcg/ Dextrose IV 0 mcg/min TITR EYAL Titration Protocol 5 MCG/MIN Heparin Sodium/Dextrose 500 mls @ 20 mls/hr 02/06/17 23:00 02/08/17 07:45 Heparin Infusion - IVPB 850 units/hr TITR EYAL Titration Protocol 1,000 UNITS/HR Aztreonam 2 gm/ Dextrose 100 mls @ 100 mls/hr 02/07/17 10:00 02/08/17 09:23 IV 100 mls/hr Q8H-IV EYAL Administration Protocol Potassium Chloride 40 meq/ 1,020 mls @ 100 mls/hr 02/07/17 09:30 02/08/17 05:30 Sodium Chloride IVPB 100 mls/hr Q10H EYAL Administration Fentanyl 500 mcg/ Dextrose 100 mls @ 10 mls/hr 02/08/17 02:00 02/08/17 05:00 IJ 100 mcg/hr TITR EYAL Titration Protocol 50 MCG/HR Methylprednisolone Sodium Succinate 40 mg 02/07/17 09:30 02/08/17 09:20 Solu-Medrol - IVPUSH 40 mg BID EYAL Administration Mupirocin 1 applic 02/07/17 10:00 02/08/17 09:18 Bactroban Ointment (For Decolonization) - NS 02/12/17 09:59 1 applic BID EYAL Administration Pantoprazole Sodium 40 mg 02/07/17 10:00 02/08/17 09:18 Protonix Iv IVPUSH 40 mg DAILY [facility] Administration Vancomycin HCl 1,000 mg 02/07/17 22:00 02/08/17 09:21 Vancomycin (Pre-Docked) IVPB 1,000 mg BID EYAL Administration Protocol Microbiology 02/06/17 10:20 Gram Stain - Final Sputum - Endotrachea Suction/Ventilator Sputum Culture - Preliminary NORMAL RESPIRATORY MARTHA 02/06/17 14:30 Blood Culture - Preliminary Blood - Peripheral Venous Lactose Fermenting Neg Bacilli 02/07/17 13:57 Legionella Antigen - Final Urine For Antigen Detection Streptococcus pneumoniae Antigen (M - Final 02/06/17 14:30 Blood Culture - Preliminary Blood - Peripheral Venous NO GROWTH OBTAINED AFTER 24 HOURS, INCUBATION TO CONTINUE FOR 4 DAYS. 02/07/17 12:10 Influenza Types A,B Antigen (SANGITA) - Final Nasopharyngeal Swab - Final 02/07/17 05:45 Respiratory Virus (PCR) - Preliminary Nasopharyngeal Swab 02/06/17 14:30 Urine Culture - Final Urine - Urine Clean Catch NO GROWTH OBTAINED Blood: lactose fermenting negative bacilli. 1 Acute Respiratory Failure could be from HCAP or interstilal lung ds excerbration extubated 1round 11:30 maintain saturation of 96 on 50% ventuary mask off from sedation Antibiotics as per ID on vanco and aztreonam. spirometry. on solu 40bid CXR tomorrow 2 Septic shock off pressor monitor vitals. monitor intake and output. follow culture. ID on case. 3 H/o DVT on heparin infusion monitor aptt watch for bleeding. 4 H/o pulmonary HTN probably from sarcoidosis 5 H/o cardiac sarcoid ICD in situ. 6 h/o GERD on protonix Fluid: minimize fluid electrolyte: hypomagnesemia: 2gm Iv given nutrition; npo dvt pro: on heparin drip Gi pro; protonix Dispo: in icu Visit type - Emergency Visit Emergency Visit: Yes ED Registration Date: 02/06/17 Care time: The patient presented to the Emergency Department on the above date and was hospitalized for further evaluation of their emergent condition. - New Patient This patient is new to me today: Yes Date on this admission: 02/08/17 - Critical Care Critical Care patient: Yes Total Critical Care Time (in minutes): 45 Critical Care Statement: The care of this patient involved high complexity decision making to prevent further life threatening deterioration of the patient 's condition and/or to evaluate & treat vital organ system(s) failure or risk of failure.
--- NOTE | 2017-02-08 14:16 | PN ---
Progress Note (short form) - Note Progress Note: patient seen in ICU this am Off pressors extubated this am awake / responding to questions appropriately comfortable Vital Signs Period Temp Pulse Resp BP Sys/Londono Pulse Ox Last 24 Hr 96.8 F-99.4 F 81-123 12-32 58-147/35-108 96-100 Intake & Output 02/04/17 02/05/17 02/06/17 02/07/17 23:59 23:59 23:59 23:59 Intake Total 1350 1125 Output Total 1110 2200 Balance 240 -1075 Weight 174 lb 4.8 oz 172 lb 8 oz Intake & Output 02/05/17 02/06/17 02/07/17 02/08/17 23:59 23:59 23:59 23:59 Intake Total 1350 2972 1785 Output Total 1110 3800 1400 Balance 240 -828 385 Weight 174 lb 4.8 oz 172 lb 8 oz 172 lb 3.2 oz extubated / NGT out / Venti mask in place neck supple no jvd heart irreg tachy lungs grossly clear abd soft BS + not distended ext no edema CBC, BMP 02/07/17 05:05 02/07/17 05:05 CBC, BMP 02/08/17 05:00 02/08/17 05:00 lactic acid nl X2 improved renal function Microbiology 02/06/17 10:20 Sputum - Endotrachea Suction/Ventilator Gram Stain - Final 02/06/17 10:20 Sputum - Endotrachea Suction/Ventilator Sputum Culture - Preliminary NORMAL RESPIRATORY MARTHA 02/06/17 14:30 Blood - Peripheral Venous Blood Culture - Preliminary Lactose Fermenting Neg Bacilli 02/07/17 13:57 Urine For Antigen Detection Legionella Antigen - Final 02/07/17 13:57 Urine For Antigen Detection Streptococcus pneumoniae Antigen (M - Final 02/06/17 14:30 Blood - Peripheral Venous Blood Culture - Preliminary NO GROWTH OBTAINED AFTER 24 HOURS, INCUBATION TO CONTINUE FOR 4 DAYS. 02/07/17 12:10 Nasopharyngeal Swab Influenza Types A,B Antigen (SANGITA) - Final 02/07/17 12:10 Nasopharyngeal Swab - Final 02/07/17 05:45 Nasopharyngeal Swab Respiratory Virus (PCR) - Preliminary 02/06/17 14:30 Urine - Urine Clean Catch Urine Culture - Final NO GROWTH OBTAINED Active Medications Arformoterol Tartrate (Brovana (Restricted To Pulmonology/Resp) -) 1 amp NEB BID [facility] Last Admin: 02/08/17 10:16 Dose: 1 amp Chlorhexidine Gluconate (Hibiclens For Decolonization -) 1 applic TP HS [facility] Last Admin: 02/07/17 21:16 Dose: 1 applic Fentanyl (Sublimaze Injection -) 100 mcg IVPUSH ONCE PRN PRN Reason: PAIN LEVEL 1-5 Stop: 02/08/17 22:37 Last Admin: 02/08/17 00:50 Dose: 100 mcg Heparin Sodium (Porcine) (Heparin -) 1,000 unit IVPUSH PRN PRN PRN Reason: Heparin Heparin Sodium (Porcine) (Heparin -) 5,000 unit IVPUSH PRN PRN PRN Reason: Heparin Norepinephrine Bitartrate 8, (000 mcg/ Dextrose) 500 mls @ 18.75 mls/hr IV TITR EYAL; 5 MCG/MIN PRN Reason: Protocol Last Titration: 02/08/17 05:00 Dose: 0 mcg/min Heparin Sodium/Dextrose (Heparin Infusion -) 500 mls @ 20 mls/hr IVPB TITR EYAL ; 1,000 UNITS/HR PRN Reason: Protocol Last Titration: 02/08/17 07:45 Dose: 850 units/hr Aztreonam 2 gm/ Dextrose 100 mls @ 100 mls/hr IV Q8H-IV EYAL PRN Reason: Protocol Last Admin: 02/08/17 09:23 Dose: 100 mls/hr Potassium Chloride 40 meq/ (Sodium Chloride) 1,020 mls @ 100 mls/hr IVPB Q10H [facility] Last Admin: 02/08/17 05:30 Dose: 100 mls/hr Fentanyl 500 mcg/ Dextrose 100 mls @ 10 mls/hr IJ TITR EYAL; 50 MCG/HR PRN Reason: Protocol Last Titration: 02/08/17 05:00 Dose: 100 mcg/hr Methylprednisolone Sodium Succinate (Solu-Medrol -) 40 mg IVPUSH BID [facility] Last Admin: 02/08/17 09:20 Dose: 40 mg Mupirocin (Bactroban Ointment (For Decolonization) -) 1 applic NS BID [facility] Stop: 02/12/17 09:59 Last Admin: 02/08/17 09:18 Dose: 1 applic Pantoprazole Sodium (Protonix Iv) 40 mg IVPUSH DAILY [facility] Last Admin: 02/08/17 09:18 Dose: 40 mg Vancomycin HCl (Vancomycin (Pre-Docked)) 1,000 mg IVPB BID EYAL PRN Reason: Protocol Last Admin: 02/08/17 09:21 Dose: 1,000 mg 62 y/o female [place] resident with PMH HTN, pHTN, Cardiac and Pulmonary Sarcoid, hfpef, hx VT s/p ICD, DM, Lupus, hx DVT ( apixaban),hep C, GERD, chronic back pain ( s/p revision and s/p morphine pump 2012), COPD, O2 dependent 5lpm, who was transferred to ER due to increased lethargy over last 2 days, per family patient less responsive yesterday am and transfer ordered. Septic shock requiring intubation and pressors started in ER Currently in ICU. Pressors tapered off this am and patient extubated. Seen and examined after extubation. -extubated / awake / alert -off pressors -hemodynamically stable ventimask with Sat>95 - IV Steroid stress doses / ( adjunct tx septic shock) discussed with ICU will require termite technician steroids due to Cardiac Sarcoid will also need to discuss with family or patient as to where Dx and treatment was initiated - renal function back to baseline / follow lytes - replace as needed -management per ICU attending / appreciate and discuss Problem List - Problems (1) Septic shock Code(s): A41.9 - SEPSIS, UNSPECIFIED ORGANISM R65.21 - SEVERE SEPSIS WITH SEPTIC SHOCK (2) Respiratory failure Code(s): J96.90 - RESPIRATORY FAILURE, UNSP, UNSP W HYPOXIA OR HYPERCAPNIA (3) SHERRI (acute kidney injury) Code(s): N17.9 - ACUTE KIDNEY FAILURE, UNSPECIFIED (4) Hypotension Code(s): I95.9 - HYPOTENSION, UNSPECIFIED (5) Hypercarbia Code(s): R06.89 - OTHER ABNORMALITIES OF BREATHING (6) Hypoxia Code(s): R09.02 - HYPOXEMIA (7) Pneumonia Code(s): J18.9 - PNEUMONIA, UNSPECIFIED ORGANISM Qualifiers: Pneumonia type: due to unspecified organism Laterality: bilateral Lung location: unspecified part of lung Qualified Code(s): J18.9 - Pneumonia, unspecified organism; J18.9 - Pneumonia, unspecified organism (8) CHF (congestive heart failure) Code(s): I50.9 - HEART FAILURE, UNSPECIFIED Qualifiers: Congestive heart failure type: unspecified congestive heart failure type Congestive heart failure chronicity: acute on chronic Qualified Code(s ): I50.9 - Heart failure, unspecified; I50.9 - Heart failure, unspecified; I50.9 - Heart failure, unspecified; I50.9 - Heart failure, unspecified (9) COPD (chronic obstructive pulmonary disease) Code(s): J44.9 - CHRONIC OBSTRUCTIVE PULMONARY DISEASE, UNSPECIFIED Qualifiers : COPD type: COPD with acute exacerbation Qualified Code(s): J44.1 - Chronic obstructive pulmonary disease with (acute) exacerbation; J44.1 - Chronic obstructive pulmonary disease with (acute) exacerbation; J44.1 - Chronic obstructive pulmonary disease with (acute) exacerbation; J44.1 - Chronic obstructive pulmonary disease with (acute) exacerbation (10) Chronic low back pain Code(s): M54.5 - LOW BACK PAIN G89.29 - OTHER CHRONIC PAIN (11) ICD (implantable cardioverter-defibrillator), dual, in situ Code(s): Z95.810 - PRESENCE OF AUTOMATIC (IMPLANTABLE) CARDIAC DEFIBRILLATOR (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
[2017-02-08] MEDS ORDERED: SODIUM CHLORIDE 1,000 ML IV SCH (15:00)
[2017-02-08] MEDS ORDERED: MAGNESIUM SULF 50% (8.12 MEQ/2 ML-1 GM VIAL) ONE (15:09)
--- NOTE | 2017-02-08 17:37 | PN ---
Progress Note (short form) - Note Progress Note: HPI 02/07/17 62 year old female with PMHX of HTN, pHTN and CHF (rvsp 50, preserved EF, ? diastolic failure), Sarcoidosis, s/p PPM, Diabetes, COPD on chronic o2 at 5Lpm NC, GERD, Lupus, hx DVT (on Apixaban), Parkinson's (?), and chronic back pain (s/p revision for broken robert and s/p morphine pump placement 2012) who [place] today from [place] with abdominal pain, nausea, constipation, blurry vision, shortness of breath, decreased appetite, and general lethargy for the past two days. She was recently dicharged in december from this institution after COPD exacerbation, d/c on steroid taper and abx. She came in with a stroke code -- for possible R sided weakness; when eval by me yesterday, she fluctuating weakness in the UE and dysarthria yesterday ; she was subsequently intubated. When I spoke to family yesterday they were unaware of Dx of parkinsons or tremor. CT HD - no acute events. 02/08/17 FU : s/p extubation, conversive and responding well, minimal shaking noted now, no focal weakness - Past Medical History Cardio/Vascular: Yes: CHF (likely normal LVEF on ECHO this admission), Other ( Sarcoidosis with cardiac involvement and history of VT s/p ICD) Pulmonary: Yes: Asthma, Sleep Apnea, Other (Sarcoidosis with cardiac involvement ) Gastrointestinal: Yes: GERD Hepatobiliary: Yes: Hepatitis C Infectious Disease: Yes: Other (HEP C) Musculoskeletal: Yes: Chronic low back pain (spinal cord stimulator) Rheumatology: Yes: Sarcoidosis Additional Medical History: in wheelchair after accident many years ago. Spinal cord stimulator. Multiple drug allergies. History of Ferrer José syndrome - Past Surgical History Past Surgical History: Yes: Permanent Pacemaker (ICD. ) - Alcohol/Substance Use Hx Alcohol Use: No - Smoking History Smoking history: Never smoked Have you smoked in the past 12 months: No Aproximately how many cigarettes per day: 0 - Social History ADL: Family Assistance History of Recent Travel: No Home Medications - Allergies Allergies/Adverse Reactions: Allergies Allergy/AdvReac Type Severity Reaction Status Date / Time medroxyprogesterone acetate Allergy Severe stepehns Verified 02/06/17 13:11 [From Depo-Provera] josé syndrome amoxicillin trihydrate Allergy Verified 02/06/17 13:11 [From Augmentin] aspirin Allergy Verified 02/06/17 13:11 azithromycin [From Zithromax] Allergy Dewey Verified 02/06/17 13:11 José syndrome ciprofloxacin HCl Allergy Verified 02/06/17 13:11 [From Cipro] codeine [Codeine] Allergy Verified 02/06/17 13:11 Iodinated Contrast- Oral and Allergy Verified 02/06/17 13:11 IV Dye [IV Dye, Iodine Containing Contrast ] ketorolac tromethamine Allergy Verified 02/06/17 13:11 [From Toradol] levofloxacin [From Levaquin] Allergy Verified 02/06/17 13:11 metronidazole [From Flagyl] Allergy Verified 02/06/17 13:11 nalbuphine HCl [From Nubain] Allergy CYANOSIS Verified 02/06/17 13:11 potassium clavulanate Allergy Verified 02/06/17 13:11 [From Augmentin] Shellfish Allergy Verified 02/06/17 13:11 sulfamethoxazole Allergy Verified 02/06/17 13:11 [From Bactrim] trimethoprim [From Bactrim] Allergy Verified 02/06/17 13:11 ivp dye Allergy Severe Swelling Uncoded 02/06/17 13:11 - Home Medications Home Medications: Ambulatory Orders Montelukast Na [Singulair -] 10 mg PO HS tablet 02/21/16 Pregabalin [Lyrica -] 75 mg PO BID capsule MDD 2 02/21/16 Insulin Lispro [Humalog] 10 unit SQ TID 08/15/16 Apixaban [Eliquis -] 5 mg PO BID #60 tablet 01/09/17 Furosemide [Lasix] 80 mg PO DAILY #30 tablet 01/09/17 Morphine *Sr* [Ms Contin -] 15 mg PO BID #30 tab MDD 2 01/09/17 Albuterol 0.083% Nebulizer Gisela [Ventolin 0.083%] 1 neb NEB Q4H 02/06/17 Atorvastatin Ca [Lipitor] 10 mg PO HS 02/06/17 Ferrous Sulfate 325 mg PO BID 02/06/17 Insulin Glargine,Hum.rec.anlog [Basaglar Kwikpen U-100] 32 unit SQ HS 02/06/17 Lisinopril 10 mg PO DAILY 02/06/17 Metolazone 5 mg PO ASDIR 02/06/17 Polyethylene Glycol 3350 [Miralax (For Daily Use) -] 17 gm PO DAILY 02/06/17 Prednisone [Prednisone 50 MG TABLETS] 30 mg PO DAILY 02/06/17 Sennosides [Senna] 8.6 mg PO DAILY 02/06/17 Tiotropium [place] [Spiriva Respimat] 4 gm IH BID 02/06/17 Family Disease History - Family Disease History Family Disease History: Other: Mother (3 CVAs, the first in her 60s) Physical Exam-Neuro Vital Signs: Vital Signs Temperature 98.6 F 02/08/17 14:00 Pulse Rate 104 H 02/08/17 16:00 Respiratory Rate 19 02/08/17 16:00 Blood Pressure 133/58 02/08/17 16:00 O2 Sat by Pulse Oximetry (%) 100 02/08/17 14:24 Constitutional: Yes: Mild Distress, Obese Neck: Yes: WNL Labs: CBCD WBC 12.5 K/mm3 (4.0-10.0) H 02/08/17 05:00 RBC 4.03 M/mm3 (3.60-5.2) 02/08/17 05:00 Hgb 10.5 GM/dL (10.7-15.3) L D 02/08/17 05:00 Hct 32.6 % (32.4-45.2) 02/08/17 05:00 MCV 80.9 fl (80-96) 02/08/17 05:00 MCHC 32.1 g/dl (32.0-36.0) 02/08/17 05:00 RDW 21.3 % (11.6-15.6) H 02/08/17 05:00 Plt Count 279 K/MM3 (134-434) D 02/08/17 05:00 MPV 8.3 fl (7.5-11.1) 02/08/17 05:00 CMP Sodium 132 mmol/L (136-145) L 02/08/17 05:00 Potassium 4.6 mmol/L (3.5-5.1) D 02/08/17 05:00 Chloride 94 mmol/L (98-107) L 02/08/17 05:00 Carbon Dioxide 30 mmol/L (21-32) D 02/08/17 05:00 Anion Gap 8 (8-16) 02/08/17 05:00 BUN 21 mg/dL (7-18) H D 02/08/17 05:00 Creatinine 0.8 mg/dL (0.55-1.02) D 02/08/17 05:00 Creat Clearance w eGFR > 60 (>60) 02/08/17 05:00 Calcium 7.7 mg/dL (8.5-10.1) L 02/08/17 05:00 Total Bilirubin 0.5 mg/dL (0.2-1.0) D 02/08/17 05:00 AST 16 U/L (15-37) 02/08/17 05:00 ALT 19 U/L (12-78) D 02/08/17 05:00 Alkaline Phosphatase 91 U/L (45-117) 02/08/17 05:00 Total Protein 6.3 g/dl (6.4-8.2) L 02/08/17 05:00 Albumin 2.2 g/dl (3.4-5.0) L D 02/08/17 05:00 - Neuro Exam Level Of Consciousness: Yes: Alert (eyes open, EOMI, no facial, motor -no focal weakness Imaging - Results Cat Scan: Report Reviewed, Image Reviewed Problem List - Problems (1) Hypoxia Code(s): R09.02 - HYPOXEMIA (2) Leukocytosis Code(s): D72.829 - ELEVATED WHITE BLOOD CELL COUNT, UNSPECIFIED Qualifiers: Leukocytosis type: unspecified Qualified Code(s): D72.829 - Elevated white blood cell count, unspecified; D72.829 - Elevated white blood cell count, unspecified (3) Respiratory failure Code(s): J96.90 - RESPIRATORY FAILURE, UNSP, UNSP W HYPOXIA OR HYPERCAPNIA (4) CHF (congestive heart failure) Code(s): I50.9 - HEART FAILURE, UNSPECIFIED Qualifiers: Congestive heart failure type: unspecified congestive heart failure type Congestive heart failure chronicity: acute on chronic Qualified Code(s ): I50.9 - Heart failure, unspecified; I50.9 - Heart failure, unspecified; I50.9 - Heart failure, unspecified; I50.9 - Heart failure, unspecified (5) Sarcoidosis Code(s): D86.9 - SARCOIDOSIS, UNSPECIFIED (6) Transient ischemic attack Code(s): G45.9 - TRANSIENT CEREBRAL ISCHEMIC ATTACK, UNSPECIFIED Assessment/Plan 62 year old female with PMHX of HTN, pHTN and CHF (rvsp 50, preserved EF, ? diastolic failure), Sarcoidosis, s/p PPM, Diabetes, COPD on chronic o2 at 5Lpm NC, GERD, Lupus, hx DVT (on Apixaban), Parkinson's (?), and chronic back pain (s /p revision for broken robert and s/p morphine pump placement 2012) who [place] on 02/06/17 [place] with abdominal pain, nausea, constipation, blurry vision, shortness of breath, decreased appetite, and general lethargy for the past two days. She was recently dicharged in december from this institution after COPD exacerbation, d/c on steroid taper and abx. She came in with a stroke code -- for possible R sided weakness; when eval by me yesterday, she fluctuating weakness in the UE and dysarthria yesterday ; she was subsequently intubated. When I spoke to family yesterday they were unaware of Dx of parkinsons or tremor. CT HD - no acute events. suspect metabolic/infectious encephalopathy--ARF , hypokalemia, hypoxemia -- improving less likely an acute stroke, though small embolic events would be difficult to rule out HX of PPM, and morphine pump so unable to get MRI BRAIN can defer repeat HD CT movements may be more metabolic in origin rather than a primary Dx of PArkinsons-- will reasess as outpt FU ID rec neuro sign off Dr Londono Problem List - Problems (1) Hypoxia Code(s): R09.02 - HYPOXEMIA (2) Leukocytosis Code(s): D72.829 - ELEVATED WHITE BLOOD CELL COUNT, UNSPECIFIED Qualifiers: Leukocytosis type: unspecified Qualified Code(s): D72.829 - Elevated white blood cell count, unspecified; D72.829 - Elevated white blood cell count, unspecified (3) Respiratory failure Code(s): J96.90 - RESPIRATORY FAILURE, UNSP, UNSP W HYPOXIA OR HYPERCAPNIA (4) CHF (congestive heart failure) Code(s): I50.9 - HEART FAILURE, UNSPECIFIED Qualifiers: Congestive heart failure type: unspecified congestive heart failure type Congestive heart failure chronicity: acute on chronic Qualified Code(s ): I50.9 - Heart failure, unspecified; I50.9 - Heart failure, unspecified; I50.9 - Heart failure, unspecified; I50.9 - Heart failure, unspecified (5) Sarcoidosis Code(s): D86.9 - SARCOIDOSIS, UNSPECIFIED (6) Transient ischemic attack Code(s): G45.9 - TRANSIENT CEREBRAL ISCHEMIC ATTACK, UNSPECIFIED
[2017-02-08] MEDS: CHLORHEXIDINE GLUCONATE 4% CLEANSER FOR DECOLONIZATION TP SCH (21:37)
[2017-02-09] MEDS: HEPARIN INFUSION - 500 ML IVPB SCH (00:04)
[2017-02-09] MEDS: MUPIROCIN 2% TOPICAL OINTMENT FOR DECOLONIZATION NS SCH ×3 (01:04→22:09)
[2017-02-09] MEDS ORDERED: PT OWN MED DRAWER 7, Y5N ONE ×5 (01:53→22:08)
[2017-02-09] MEDS: AZTREONAM 2 GM in DEXTROSE 5%-WATER - 100 ML IV SCH ×3 (01:54→17:24)
[2017-02-09] MEDS: FENTANYL INJECTION 500 MCG in DEXTROSE 5%-WATER - 90 ML IJ SCH (06:12)
[2017-02-09] MEDS: NOREPINEPHRINE BITARTRATE 8,000 MCG in DEXTROSE 5%-WATER - 492 ML IV SCH (06:13)
[2017-02-09 06:16] LABS: BASOPHIL 0.1 % (0-2.0); MCH 26.5 pg (25.7-33.7); MEAN CELL VOLUME 80.5 fl (80-96); MEAN PLT VOLUME 8.2 fl (7.5-11.1); NEUTROPHILS 89.6 % (42.8-82.8); PLATELET COUNT 292 K/MM3 (134-434); RDW 20.9 % (11.6-15.6); WHITE BLOOD COUNT 10.7 K/mm3 (4.0-10.0)
[2017-02-09 07:19] LABS: ALK PHOS 84 U/L (45-117); ANION GAP 7 (8-16); BILIRUBIN,TOTAL 0.4 mg/dL (0.2-1.0); CALCIUM 8.1 mg/dL (8.5-10.1); CO2 29 mmol/L (21-32); CREATININE 0.7 mg/dL (0.55-1.02); GLUCOSE,RANDOM 260 mg/dL (74-106); MAGNESIUM 1.6 mg/dL (1.8-2.4); SGOT/AST 14 U/L (15-37); SGPT/ALT 19 U/L (12-78); TOT PROT 6.1 g/dl (6.4-8.2)
[2017-02-09] MEDS: methylPREDNISolone NA SUCC 40 MG/1 ML VIAL IVPUSH SCH ×2 (09:43→22:09)
[2017-02-09] MEDS: PANTOPRAZOLE SODIUM 40 MG VIAL IVPUSH SCH (09:43)
[2017-02-09] MEDS: VANCOMYCIN 1 GRAM (PRE-DOCKED) 1,000 MG/250 ML BAG IVPB SCH (10:06)
--- NOTE | 2017-02-09 10:41 | PN ---
Progress Note (short form) - Note Progress Note: alert and extubated yesterday Vital Signs Period Temp Pulse Resp BP Sys/Londono Pulse Ox Last 24 Hr 98.1 F-98.6 F 66-104 18-25 101-137/57-77 100-100 cor-rrr lungs decreased at bases abd soft,nt ext no edema CBC, BMP 02/09/17 05:00 02/09/17 05:00 Current Medications Arformoterol Tartrate (Brovana (Restricted To Pulmonology/Resp) -) 1 amp NEB BID [facility] Last Admin: 02/08/17 22:52 Dose: 1 amp Chlorhexidine Gluconate (Hibiclens For Decolonization -) 1 applic TP HS [facility] Last Admin: 02/08/17 21:37 Dose: 1 applic Heparin Sodium (Porcine) (Heparin -) 1,000 unit IVPUSH PRN PRN PRN Reason: Heparin Heparin Sodium (Porcine) (Heparin -) 5,000 unit IVPUSH PRN PRN PRN Reason: Heparin Norepinephrine Bitartrate 8, (000 mcg/ Dextrose) 500 mls @ 18.75 mls/hr IV TITR EYAL; 5 MCG/MIN PRN Reason: Protocol Last Admin: 02/09/17 06:13 Dose: Not Given Heparin Sodium/Dextrose (Heparin Infusion -) 500 mls @ 20 mls/hr IVPB TITR EYAL ; 1,000 UNITS/HR PRN Reason: Protocol Last Admin: 02/09/17 00:04 Dose: 17 mls/hr Aztreonam 2 gm/ Dextrose 100 mls @ 100 mls/hr IV Q8H-IV [facility] PRN Reason: Protocol Last Admin: 02/09/17 01:54 Dose: 100 mls/hr Fentanyl 500 mcg/ Dextrose 100 mls @ 10 mls/hr IJ TITR EYAL; 50 MCG/HR PRN Reason: Protocol Last Admin: 02/09/17 06:12 Dose: Not Given Sodium Chloride (Normal Saline -) 1,000 mls @ 75 mls/hr IV ASDIR [facility] Last Admin: 02/08/17 15:25 Dose: 75 mls/hr Vancomycin HCl 1,000 mg/ (Dextrose) 250 mls @ 166.667 mls/hr IVPB BID [facility] Last Admin: 02/09/17 10:14 Dose: Not Given Methylprednisolone Sodium Succinate (Solu-Medrol -) 40 mg IVPUSH BID [facility] Last Admin: 02/09/17 09:43 Dose: 40 mg Mupirocin (Bactroban Ointment (For Decolonization) -) 1 applic NS BID [facility] Stop: 02/12/17 09:59 Last Admin: 02/09/17 01:04 Dose: 1 applic Pantoprazole Sodium (Protonix Iv) 40 mg IVPUSH DAILY [facility] Last Admin: 02/09/17 09:43 Dose: [address] scan abd pelvis no acute pathology a/p gram negative bacteremia- klebsiella sensitive to azactam, will continue, d/c vancomycin, ?source ct scan abd/pelvis unremarkable respiratory failure-extubated, sarcoid- cardiac and pulmonary multiple antibiotic allergies noted Problem List - Problems (1) Respiratory failure Code(s): J96.90 - RESPIRATORY FAILURE, UNSP, UNSP W HYPOXIA OR HYPERCAPNIA (2) Hypotension Code(s): I95.9 - HYPOTENSION, UNSPECIFIED (3) Pneumonia Code(s): J18.9 - PNEUMONIA, UNSPECIFIED ORGANISM Qualifiers: Pneumonia type: due to unspecified organism Laterality: bilateral Lung location: unspecified part of lung Qualified Code(s): J18.9 - Pneumonia, unspecified organism; J18.9 - Pneumonia, unspecified organism (4) Sarcoidosis of lung Code(s): D86.0 - SARCOIDOSIS OF LUNG (5) Allergy to multiple antibiotics Code(s): Z88.1 - ALLERGY STATUS TO OTHER ANTIBIOTIC AGENTS STATUS
[2017-02-09] MEDS: ARFORMOTEROL TARTRATE 15 MCG/2 ML VIAL NEB SCH ×2 (12:28→22:00)
--- NOTE | 2017-02-09 12:32 | PN ---
Teaching Attending Note Name of Resident: Ortiz Francis ATTENDING PHYSICIAN STATEMENT I saw and evaluated the patient. I reviewed the resident's note and discussed the case with the resident. I agree with the resident's findings and plan as documented. SUBJECTIVE: Patient seen and examined in the ICU. Remains extubated. Off pressors. Some dry cough. Intake & Output 02/06/17 02/07/17 02/08/17 02/09/17 23:59 23:59 23:59 23:59 Intake Total 1350 2972 3672 1250 Output Total 1110 3800 3200 1000 Balance 240 -828 472 250 Weight 174 lb 4.8 oz 172 lb 8 oz 172 lb 3.2 oz 167 lb 5.294 oz Last Vital Signs Temp Pulse Resp BP Pulse Ox 97.5 F L 84 25 H 99/80 100 02/09/17 10:00 02/09/17 12:00 02/09/17 12:00 02/09/17 12:00 02/09/17 11:35 Active Medications Arformoterol Tartrate (Brovana (Restricted To Pulmonology/Resp) -) 1 amp NEB BID [facility] Last Admin: 02/09/17 12:28 Dose: 1 amp Chlorhexidine Gluconate (Hibiclens For Decolonization -) 1 applic TP HS [facility] Last Admin: 02/08/17 21:37 Dose: 1 applic Heparin Sodium (Porcine) (Heparin -) 1,000 unit IVPUSH PRN PRN PRN Reason: Heparin Heparin Sodium (Porcine) (Heparin -) 5,000 unit IVPUSH PRN PRN PRN Reason: Heparin Heparin Sodium/Dextrose (Heparin Infusion -) 500 mls @ 20 mls/hr IVPB TITR EYAL ; 1,000 UNITS/HR PRN Reason: Protocol Last Admin: 02/09/17 00:04 Dose: 17 mls/hr Aztreonam 2 gm/ Dextrose 100 mls @ 100 mls/hr IV Q8H-IV [facility] PRN Reason: Protocol Last Admin: 02/09/17 11:34 Dose: 100 mls/hr Methylprednisolone Sodium Succinate (Solu-Medrol -) 40 mg IVPUSH BID [facility] Last Admin: 02/09/17 09:43 Dose: 40 mg Mupirocin (Bactroban Ointment (For Decolonization) -) 1 applic NS BID [facility] Stop: 02/12/17 09:59 Last Admin: 02/09/17 01:04 Dose: 1 applic Pantoprazole Sodium (Protonix Iv) 40 mg IVPUSH DAILY [facility] Last Admin: 02/09/17 09:43 Dose: 40 mg General Appearance: Extubated, awake and alert Head: Atraumatic, normocephalic Eyes: Pupils equal reactive round, EOMI Cardiac: Regular rate and rhythym, no murmurs, no rubs, no gallops appreciated Lungs: coarse bilateral rhonchi, no wheezes Abdomen: Soft, non distended, normal bowel sounds diffuse abdominal tenderness to palpation Extremities: 3+ pitting dependant edema, strong pulses throughout Skin: Warm and dry, no rashes or lesions, no rash, no petechiae Neuro: non-focal Laboratory Results - last 24 hr 02/08/17 02/09/17 02/09/17 16:30 05:00 05:00 WBC 10.7 H RBC 3.88 Hgb 10.3 L Hct 31.3 L MCV 80.5 MCH 26.5 MCHC 33.0 RDW 20.9 H Plt Count 292 MPV 8.2 Neutrophils % 89.6 H Lymphocytes % 8.2 D Monocytes % 2.1 L Eosinophils % 0.0 Basophils % 0.1 PTT (Actin FS) 68.6 H D 70.4 H Sodium Potassium Chloride Carbon Dioxide Anion Gap BUN Creatinine Creat Clearance w eGFR Random Glucose Calcium Magnesium Total Bilirubin AST ALT Alkaline Phosphatase Total Protein Albumin 02/09/17 05:00 WBC RBC Hgb Hct MCV MCH MCHC RDW Plt Count MPV Neutrophils % Lymphocytes % Monocytes % Eosinophils % Basophils % PTT (Actin FS) Sodium 134 L Potassium 4.4 Chloride 98 Carbon Dioxide 29 Anion Gap 7 L BUN 14 D Creatinine 0.7 Creat Clearance w eGFR > 60 Random Glucose 260 H Calcium 8.1 L Magnesium 1.6 L D Total Bilirubin 0.4 AST 14 L ALT 19 Alkaline Phosphatase 84 Total Protein 6.1 L Albumin 2.0 L IMP: Acute Respiratory Failure Sarcoidosis Multilobar HCAP Pulmonary HTN DVT by history Septic Shock Possible component of Pulm Vascular Congestion PLAN: Monitor off pressors. D/C IVF ABX per ID AC: IV Heparin & Coumadin PO GI prophylaxis PO as tolerated Medrol 4W/4S monitoring Dr Rubio Critical care time spent in reviewing chart, evaluating patient and formulating plan - 40 minutes.
--- NOTE | 2017-02-09 14:22 | PN ---
Progress Note (short form) - Note Progress Note: patient seen and examined in ICU 8:30am patient is drowsy / arousable / comfortable O2 NC 4 lpm with sats 95% Vital Signs Period Temp Pulse Resp BP Sys/Londono Pulse Ox Last 24 Hr 97.5 F-98.6 F 66-104 19-25 99-137/57-82 91-100 Intake & Output 02/06/17 02/07/17 02/08/17 02/09/17 23:59 23:59 23:59 23:59 Intake Total 1350 2972 3672 1250 Output Total 1110 3800 3200 1000 Balance 240 -828 472 250 Weight 174 lb 4.8 oz 172 lb 8 oz 172 lb 3.2 oz 167 lb 5.294 oz neck supple heart irregular lungs grossly clear -poor inspiration abd soft non tender ext no edema / no calf tenderness CBC, BMP 02/09/17 05:00 02/09/17 05:00 Microbiology 02/06/17 10:20 Sputum - Endotrachea Suction/Ventilator Gram Stain - Final 02/06/17 10:20 Sputum - Endotrachea Suction/Ventilator Sputum Culture - Final NORMAL RESPIRATORY MARTHA 02/06/17 14:30 Blood - Peripheral Venous Blood Culture - Preliminary Klebsiella Oxytoca 02/06/17 14:30 Blood - Peripheral Venous Blood Culture - Preliminary NO GROWTH OBTAINED AFTER 48 HOURS, INCUBATION TO CONTINUE FOR 3 DAYS. 02/07/17 13:57 Urine For Antigen Detection Legionella Antigen - Final 02/07/17 13:57 Urine For Antigen Detection Streptococcus pneumoniae Antigen (M - Final 02/07/17 12:10 Nasopharyngeal Swab Influenza Types A,B Antigen (SANGITA) - Final 02/07/17 12:10 Nasopharyngeal Swab - Final 02/07/17 05:45 Nasopharyngeal Swab Respiratory Virus (PCR) - Preliminary 02/06/17 14:30 Urine - Urine Clean Catch Urine Culture - Final NO GROWTH OBTAINED Active Medications Apixaban (Eliquis -) 5 mg PO BID [facility] Arformoterol Tartrate (Brovana (Restricted To Pulmonology/Resp) -) 1 amp NEB BID [facility] Last Admin: 02/09/17 12:28 Dose: 1 amp Chlorhexidine Gluconate (Hibiclens For Decolonization -) 1 applic TP HS [facility] Last Admin: 02/08/17 21:37 Dose: 1 applic Aztreonam 2 gm/ Dextrose 100 mls @ 100 mls/hr IV Q8H-IV [facility] PRN Reason: Protocol Last Admin: 02/09/17 11:34 Dose: 100 mls/hr Methylprednisolone Sodium Succinate (Solu-Medrol -) 40 mg IVPUSH BID [facility] Last Admin: 02/09/17 09:43 Dose: 40 mg Montelukast Sodium (Singulair -) 10 mg PO HS [facility] Mupirocin (Bactroban Ointment (For Decolonization) -) 1 applic NS BID [facility] Stop: 02/12/17 09:59 Last Admin: 02/09/17 12:50 Dose: 1 applic Ranitidine HCl (Zantac -) 150 mg PO BID [facility] 62 y/o female [place] resident with PMH HTN, pHTN, Cardiac and Pulmonary Sarcoid, hfpef, hx VT s/p ICD, DM, Lupus, hx DVT ( apixaban),hep C, GERD, chronic back pain ( s/p revision and s/p morphine pump 2012), COPD, O2 dependent 5lpm, who was transferred to ER due to increased lethargy over last 2 days, per family patient less responsive yesterday am and transfer ordered. Septic shock requiring intubation and pressors started in ER Currently in ICU. Pressors tapered off this am and patient extubated. Seen and examined after extubation. - remains extubated / awake / alert -hemodynamically stable ventimask with Sat>95 - IV Steroid stress doses / ( adjunct tx septic shock) discussed with ICU will require retirement steroids due to Cardiac Sarcoid will also need to discuss with family or patient as to where Dx and treatment was initiated - renal function back to baseline / follow lytes - replace as needed -management per ICU attending / appreciate and discuss Problem List - Problems (1) Septic shock Code(s): A41.9 - SEPSIS, UNSPECIFIED ORGANISM R65.21 - SEVERE SEPSIS WITH SEPTIC SHOCK (2) Respiratory failure Code(s): J96.90 - RESPIRATORY FAILURE, UNSP, UNSP W HYPOXIA OR HYPERCAPNIA (3) SHERRI (acute kidney injury) Code(s): N17.9 - ACUTE KIDNEY FAILURE, UNSPECIFIED (4) Hypotension Code(s): I95.9 - HYPOTENSION, UNSPECIFIED (5) Hypercarbia Code(s): R06.89 - OTHER ABNORMALITIES OF BREATHING (6) Hypoxia Code(s): R09.02 - HYPOXEMIA (7) Pneumonia Code(s): J18.9 - PNEUMONIA, UNSPECIFIED ORGANISM Qualifiers: Pneumonia type: due to unspecified organism Laterality: bilateral Lung location: unspecified part of lung Qualified Code(s): J18.9 - Pneumonia, unspecified organism; J18.9 - Pneumonia, unspecified organism (8) CHF (congestive heart failure) Code(s): I50.9 - HEART FAILURE, UNSPECIFIED Qualifiers: Congestive heart failure type: unspecified congestive heart failure type Congestive heart failure chronicity: acute on chronic Qualified Code(s ): I50.9 - Heart failure, unspecified; I50.9 - Heart failure, unspecified; I50.9 - Heart failure, unspecified; I50.9 - Heart failure, unspecified (9) COPD (chronic obstructive pulmonary disease) Code(s): J44.9 - CHRONIC OBSTRUCTIVE PULMONARY DISEASE, UNSPECIFIED Qualifiers : COPD type: COPD with acute exacerbation Qualified Code(s): J44.1 - Chronic obstructive pulmonary disease with (acute) exacerbation; J44.1 - Chronic obstructive pulmonary disease with (acute) exacerbation; J44.1 - Chronic obstructive pulmonary disease with (acute) exacerbation; J44.1 - Chronic obstructive pulmonary disease with (acute) exacerbation (10) Chronic low back pain Code(s): M54.5 - LOW BACK PAIN G89.29 - OTHER CHRONIC PAIN (11) ICD (implantable cardioverter-defibrillator), dual, in situ Code(s): Z95.810 - PRESENCE OF AUTOMATIC (IMPLANTABLE) CARDIAC DEFIBRILLATOR (12) Sarcoid myocarditis Code(s): 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 (13) Sarcoidosis of lung Code(s): D86.0 - SARCOIDOSIS OF LUNG (14) Ventricular tachycardia Code(s): I47.2 - VENTRICULAR TACHYCARDIA (15) Diastolic CHF Code(s): I50.30 - UNSPECIFIED DIASTOLIC (CONGESTIVE) HEART FAILURE (16) IDDM (insulin dependent diabetes mellitus) Code(s): E11.9 - TYPE 2 DIABETES MELLITUS WITHOUT COMPLICATIONS Z79.4 - PRISON (CURRENT) USE OF INSULIN (17) Obstructive sleep apnea Code(s): G47.33 - OBSTRUCTIVE SLEEP APNEA (ADULT) (PEDIATRIC) (18) DVT prophylaxis Code(s): [id number] -
[2017-02-09] MEDS: APIXABAN 5 MG TABLET PO SCH ×2 (16:45→22:09)
[2017-02-09] MEDS ORDERED: APIXABAN 5 MG TABLET PO SCH (22:00)
[2017-02-09] MEDS: CHLORHEXIDINE GLUCONATE 4% CLEANSER FOR DECOLONIZATION TP SCH (22:09)
[2017-02-09] MEDS: MONTELUKAST NA 10 MG TABLET PO SCH (22:09)
[2017-02-09] MEDS: RANITIDINE HCL 150 MG TABLET (FP) PO SCH (22:09)
[2017-02-09] MEDS: PREGABALIN 75 MG CAPSULE PO SCH (22:50)
[2017-02-10] MEDS: AZTREONAM 2 GM in DEXTROSE 5%-WATER - 100 ML IV SCH ×3 (02:00→17:41)
[2017-02-10 06:08] LABS: MCH 26.6 pg (25.7-33.7); MEAN CELL VOLUME 80.7 fl (80-96); MEAN PLT VOLUME 8.2 fl (7.5-11.1); NEUTROPHILS 89.7 % (42.8-82.8); PLATELET COUNT 295 K/MM3 (134-434); RDW 20.6 % (11.6-15.6); WHITE BLOOD COUNT 8.4 K/mm3 (4.0-10.0)
[2017-02-10 06:34] LABS: ALBUMIN 2.4 g/dl (3.4-5.0); ANION GAP 9 (8-16); BILIRUBIN,TOTAL 0.3 mg/dL (0.2-1.0); CALCIUM 8.5 mg/dL (8.5-10.1); CO2 28 mmol/L (21-32); CREATININE 0.6 mg/dL (0.55-1.02); SGOT/AST 12 U/L (15-37); SGPT/ALT 24 U/L (12-78); TOT PROT 6.5 g/dl (6.4-8.2)
[2017-02-10 06:35] LABS: ALK PHOS 93 U/L (45-117)
[2017-02-10 07:01] LABS: GLUCOSE,RANDOM 329 mg/dL (74-106)
--- NOTE | 2017-02-10 08:10 | PN ---
Progress Note, Physician Chief Complaint: ID Patient in no distress Aztreonam for gram negative robert sepsis bacteremia ! - Current Medication List Current Medications: Active Medications Apixaban (Eliquis -) 5 mg PO BID [facility] Last Admin: 02/09/17 22:09 Dose: 5 mg Arformoterol Tartrate (Brovana (Restricted To Pulmonology/Resp) -) 1 amp NEB BID [facility] Last Admin: 02/09/17 22:00 Dose: 1 amp Atorvastatin Calcium (Lipitor -) 10 mg PO [facility] Chlorhexidine Gluconate (Hibiclens For Decolonization -) 1 applic TP HS [facility] Last Admin: 02/09/17 22:09 Dose: 1 applic Aztreonam 2 gm/ Dextrose 100 mls @ 100 mls/hr IV Q8H-IV [facility] PRN Reason: Protocol Last Admin: 02/10/17 02:00 Dose: 100 mls/hr Insulin Aspart (Novolog Vial Sliding Scale -) 1 vial SQ ACHS [facility] PRN Reason: Protocol Insulin Detemir (Levemir Vial) 10 units SQ BID [facility] Methylprednisolone Sodium Succinate (Solu-Medrol -) 40 mg IVPUSH BID [facility] Last Admin: 02/09/17 22:09 Dose: 40 mg Montelukast Sodium (Singulair -) 10 mg PO HS [facility] Last Admin: 02/09/17 22:09 Dose: 10 mg Mupirocin (Bactroban Ointment (For Decolonization) -) 1 applic NS BID [facility] Stop: 02/12/17 09:59 Last Admin: 02/09/17 22:09 Dose: 1 applic Polyethylene Glycol (Miralax (For Daily Use) -) 17 gm PO DAILY [facility] Pregabalin (Lyrica -) 75 mg PO BID [facility] Last Admin: 02/09/17 22:50 Dose: 75 mg Pregabalin (Lyrica -) 75 mg PO BID [facility] Ranitidine HCl (Zantac -) 150 mg PO BID [facility] Last Admin: 02/09/17 22:09 Dose: 150 mg Senna (Senna -) tab PO DAILY [facility] - Objective Vital Signs: Vital Signs Temperature 97.8 F 02/10/17 02:00 Pulse Rate 77 02/10/17 06:00 Respiratory Rate 23 02/10/17 06:00 Blood Pressure 115/76 02/10/17 06:00 O2 Sat by Pulse Oximetry (%) 100 02/09/17 11:35 Constitutional: Yes: Well Nourished, No Distress HENT: Yes: WNL, Atraumatic Neck: Yes: WNL, Supple Cardiovascular: Yes: Regular Rate and Rhythm, S1, S2. No: Murmur Respiratory: Yes: WNL, Regular, CTA Bilaterally, Rales Gastrointestinal: Yes: WNL, Normal Bowel Sounds, Soft. No: Tenderness, Tenderness, Rebound Extremities: No: Cold, Cool, Cyanosis Edema: No Labs: CBC, BMP 02/10/17 05:50 02/10/17 05:50 INR, PTT INR 1.25 (0.82-1.09) H 02/06/17 13:21 Problem List - Problems (1) Allergy to multiple antibiotics Code(s): Z88.1 - ALLERGY STATUS TO OTHER ANTIBIOTIC AGENTS STATUS (2) Respiratory failure Code(s): J96.90 - RESPIRATORY FAILURE, UNSP, UNSP W HYPOXIA OR HYPERCAPNIA (3) Septic shock Code(s): A41.9 - SEPSIS, UNSPECIFIED ORGANISM R65.21 - SEVERE SEPSIS WITH SEPTIC SHOCK (4) Gram-negative bacteremia Code(s): R78.81 - BACTEREMIA Assessment/Plan Microbiology 02/07/17 13:57 Urine For Antigen Detection Legionella Antigen - Final 02/07/17 13:57 Urine For Antigen Detection Streptococcus pneumoniae Antigen (M - Final 02/06/17 14:30 Blood - Peripheral Venous Blood Culture - Preliminary NO GROWTH OBTAINED AFTER 72 HOURS, INCUBATION TO CONTINUE FOR 2 DAYS. 02/06/17 14:30 Blood - Peripheral Venous Blood Culture - Preliminary Klebsiella Oxytoca Laboratory Tests 02/08/17 02/10/17 02/10/17 05:00 05:50 05:50 WBC 8.4 Hgb 10.7 Hct 32.5 Plt Count 295 Creatinine 0.6 Random Glucose 329 H* D Total Bilirubin 0.3 D AST 12 L ALT 24 D Alkaline Phosphatase 93 Beta-(1,3)-D-Glucan Pending Assessment Klebsiella Oxytoca sepsis Multilobar pneumonia History of sarcoidosis Respiratory failure Multiple drug allergies Plan Continue Aztreonam Critical care time spent 38 minutes Quinn SAAB
[2017-02-10 08:55] LABS: HIV 1 & 2 AB NEGATIVE; HIV 1 AGp24 NEGATIVE
[2017-02-10] MEDS ORDERED: PT OWN MED DRAWER 7, Y5N ONE ×3 (09:39→18:57)
[2017-02-10] MEDS: ARFORMOTEROL TARTRATE 15 MCG/2 ML VIAL NEB SCH (09:40)
[2017-02-10] MEDS: MUPIROCIN 2% TOPICAL OINTMENT FOR DECOLONIZATION NS SCH ×2 (09:57→22:15)
[2017-02-10] MEDS: APIXABAN 5 MG TABLET PO SCH ×2 (09:58→22:19)
[2017-02-10] MEDS: methylPREDNISolone NA SUCC 40 MG/1 ML VIAL IVPUSH SCH ×2 (10:00→22:19)
[2017-02-10] MEDS ORDERED: PREGABALIN 75 MG CAPSULE PO SCH (10:00)
[2017-02-10] MEDS: RANITIDINE HCL 150 MG TABLET (FP) PO SCH ×2 (10:00→22:19)
[2017-02-10] MEDS: PREGABALIN 75 MG CAPSULE PO SCH ×2 (10:00→22:20)
[2017-02-10] MEDS: SENNOSIDES 8.6MG TABLET (FP) PO SCH (10:00)
[2017-02-10] MEDS: POLYETHYLENE GLYCOL 3350 119 GM BTL PO SCH (10:21)
[2017-02-10] MEDS: INSULIN DETEMIR 100 UNITS/ML MDV SQ SCH ×2 (10:23→22:18)
[2017-02-10] MEDS ORDERED: INSULIN (NOVOLOG) ASPART 100 UNITS/ML 10ML VIAL ONE (12:49)
[2017-02-10] MEDS: INSULIN SLIDING SCALE (NOVOLOG) 1 VIAL SQ SCH ×3 (12:51→22:16)
[2017-02-10] MEDS ORDERED: ALBUTEROL SO4 0.083% IH SOL 2.5 MG/3 ML VIAL.NEB. NEB PRN (13:51)
[2017-02-10] MEDS ORDERED: ALBUTEROL SO4 2.5/IPRATROPIUM 0.5 INH SOL 3 ML VIAL.NEB. NEB SCH (14:00)
--- NOTE | 2017-02-10 14:57 | PN ---
Physical Exam: SUBJECTIVE: Patient seen and examined feels better. eating breakfast. didn't use bipap in night. afebrile. OBJECTIVE: Vital Signs Period Temp Pulse Resp BP Sys/Londono Pulse Ox Last 24 Hr 97.5 F-98 F 71-105 19-24 94-136/62-93 100 General Appearance: on nasal canula Head: Atraumatic, normocephalic Eyes: Pupils equal reactive round, EOMI Cardiac: Regular rate and rhythym, no murmurs, no rubs, no gallops appreciated Lungs: bilateral rhonchi, no wheezes, decrease breath sound at base. Abdomen: Soft, non distended, normal bowel sounds diffuse abdominal tenderness to palpation Extremities: pitting edema 2+ present. Skin: Warm and dry, no rashes or lesions, no rash, no petechiae Neuro: sedated Laboratory Results - last 24 hr 02/10/17 02/10/17 02/10/17 05:50 05:50 05:50 WBC 8.4 RBC 4.02 Hgb 10.7 Hct 32.5 MCV 80.7 MCH 26.6 MCHC 33.0 RDW 20.6 H Plt Count 295 MPV 8.2 Neutrophils % 89.7 H Lymphocytes % 8.4 Monocytes % 1.9 L Eosinophils % 0.0 Basophils % 0.0 PTT (Actin FS) 27.4 D Sodium 133 L Potassium 4.7 Chloride 96 L Carbon Dioxide 28 Anion Gap 9 BUN 19 H D Creatinine 0.6 Creat Clearance w eGFR > 60 POC Glucometer Random Glucose 329 H* D Calcium 8.5 Total Bilirubin 0.3 D AST 12 L ALT 24 D Alkaline Phosphatase 93 Total Protein 6.5 Albumin 2.4 L HIV 1&2 Antibody Screen HIV P24 Antigen 02/10/17 02/10/17 08:11 12:33 WBC RBC Hgb Hct MCV MCH MCHC RDW Plt Count MPV Neutrophils % Lymphocytes % Monocytes % Eosinophils % Basophils % PTT (Actin FS) Sodium Potassium Chloride Carbon Dioxide Anion Gap BUN Creatinine Creat Clearance w eGFR POC Glucometer [phone] Random Glucose Calcium Total Bilirubin AST ALT Alkaline Phosphatase Total Protein Albumin HIV 1&2 Antibody Screen Negative HIV P24 Antigen Negative Active Medications Generic Name Dose Route Start Last Admin Trade Name Freq PRN Reason Stop Dose Admin Albuterol Sulfate 1 amp 02/10/17 13:51 Ventolin 0.083% Nebulizer Soln - NEB Q4H PRN SHORT OF BREATH/WHEEZING Albuterol/Ipratropium 1 amp 02/10/17 14:38 Duoneb - NEB QIDR [facility] Apixaban 5 mg 02/09/17 12:45 02/10/17 09:58 Eliquis - PO 5 mg BID [facility] Administration Atorvastatin Calcium 10 mg 02/10/17 22:00 Lipitor - PO HS [facility] Chlorhexidine Gluconate 1 applic 02/07/17 22:00 02/09/17 22:09 Hibiclens For Decolonization - TP 1 applic HS [facility] Administration Aztreonam 2 gm/ Dextrose 100 mls @ 100 mls/hr 02/07/17 10:00 02/10/17 09:57 IV 100 mls/hr Q8H-IV [facility] Administration Protocol Insulin Aspart 1 vial 02/10/17 11:00 02/10/17 12:51 Novolog Vial Sliding Scale - SQ 8 units ACHS [facility] Administration Protocol Insulin Detemir 10 units 02/10/17 10:00 02/10/17 10:23 Levemir Vial SQ 10 units BID [facility] Administration Methylprednisolone Sodium Succinate 40 mg 02/07/17 09:30 02/10/17 10:00 Solu-Medrol - IVPUSH 40 mg BID [facility] Administration Montelukast Sodium 10 mg 02/09/17 22:00 02/09/17 22:09 Singulair - PO 10 mg HS [facility] Administration Mupirocin 1 applic 02/07/17 10:00 02/10/17 09:57 Bactroban Ointment (For Decolonization) - NS 02/12/17 09:59 1 applic BID [facility] Administration Polyethylene Glycol 17 gm 02/10/17 10:00 02/10/17 10:21 Miralax (For Daily Use) - PO 17 grams DAILY [facility] Administration Pregabalin 75 mg 02/09/17 22:15 02/10/17 10:00 Lyrica - PO 75 mg BID [facility] Administration Ranitidine HCl 150 mg 02/09/17 22:00 02/10/17 10:00 Zantac - PO 150 mg BID [facility] Administration Senna 1 tab 02/10/17 10:00 02/10/17 10:00 Senna - PO 1 tab DAILY [facility] Administration ASSESSMENT/PLAN: 1 Acute Respiratory Failure could be from HCAP or interstilal lung ds excerbration on nasal canula. spo2> 95 start spirometry. contunue with steroid. stop LABA as patient has tachy. start on duoneb q6h with prn albuterol 2 Septic shock off pressor monitor vitals. monitor intake and output. follow culture. ID on case. 3 H/o DVT on eliquis 4 H/o pulmonary HTN probably from sarcoidosis 5 H/o cardiac sarcoid ICD in situ. 6 h/o GERD on zantac Fluid: minimize fluid electrolyte: repeat in am nutrition; regular diet dvt pro: on heparin drip Gi pro; zantac Dispo: transfer tele Visit type - Emergency Visit Emergency Visit: Yes ED Registration Date: 02/06/17 Care time: The patient presented to the Emergency Department on the above date and was hospitalized for further evaluation of their emergent condition. - New Patient This patient is new to me today: No - Critical Care Critical Care patient: No Total Critical Care Time (in minutes): 45 Critical Care Statement: The care of this patient involved high complexity decision making to prevent further life threatening deterioration of the patient 's condition and/or to evaluate & treat vital organ system(s) failure or risk of failure.
--- NOTE | 2017-02-10 15:32 | PN ---
Teaching Attending Note Name of Resident: Ortiz Francis ATTENDING PHYSICIAN STATEMENT I saw and evaluated the patient. I reviewed the resident's note and discussed the case with the resident. I agree with the resident's findings and plan as documented. SUBJECTIVE: Pt seen and examined in the ICU. Feels better, less short of breath. + nonproductive cough. No fevers or chills. Episodes of sinus tachycardia overnight. OBJECTIVE: Last Vital Signs Temp Pulse Resp BP Pulse Ox 97.5 F L 105 H 20 126/83 100 02/10/17 10:00 02/10/17 12:00 02/10/17 12:00 02/10/17 12:00 02/10/17 09:40 Intake & Output 02/07/17 02/08/17 02/09/17 02/10/17 23:59 23:59 23:59 23:59 Intake Total 2972 3672 1802 100 Output Total 3800 3200 2400 Balance -828 472 -598 100 Weight 172 lb 8 oz 172 lb 3.2 oz 167 lb 5.294 oz 172 lb Gen: NAD in chair Heart: tachycardic, regular Lung: bibasilar rales Abd: soft, nontender Ext: less edema CBC, BMP 02/10/17 05:50 02/10/17 05:50 Active Medications Albuterol Sulfate (Ventolin 0.083% Nebulizer Soln -) 1 amp NEB Q4H PRN PRN Reason: SHORT OF BREATH/WHEEZING Albuterol/Ipratropium (Duoneb -) 1 amp NEB QIDR [facility] Apixaban (Eliquis -) 5 mg PO BID [facility] Last Admin: 02/10/17 09:58 Dose: 5 mg Atorvastatin Calcium (Lipitor -) 10 mg PO HS [facility] Chlorhexidine Gluconate (Hibiclens For Decolonization -) 1 applic TP HS [facility] Last Admin: 02/09/17 22:09 Dose: 1 applic Aztreonam 2 gm/ Dextrose 100 mls @ 100 mls/hr IV Q8H-IV [facility] PRN Reason: Protocol Last Admin: 02/10/17 09:57 Dose: 100 mls/hr Insulin Aspart (Novolog Vial Sliding Scale -) 1 vial SQ ACHS [facility] PRN Reason: Protocol Last Admin: 02/10/17 12:51 Dose: 8 units Insulin Detemir (Levemir Vial) 10 units SQ BID [facility] Last Admin: 02/10/17 10:23 Dose: 10 units Methylprednisolone Sodium Succinate (Solu-Medrol -) 40 mg IVPUSH BID [facility] Last Admin: 02/10/17 10:00 Dose: 40 mg Montelukast Sodium (Singulair -) 10 mg PO HS [facility] Last Admin: 02/09/17 22:09 Dose: 10 mg Mupirocin (Bactroban Ointment (For Decolonization) -) 1 applic NS BID [facility] Stop: 02/12/17 09:59 Last Admin: 02/10/17 09:57 Dose: 1 applic Polyethylene Glycol (Miralax (For Daily Use) -) 17 gm PO DAILY [facility] Last Admin: 02/10/17 10:21 Dose: 17 grams Pregabalin (Lyrica -) 75 mg PO BID [facility] Last Admin: 02/10/17 10:00 Dose: 75 mg Ranitidine HCl (Zantac -) 150 mg PO BID [facility] Last Admin: 02/10/17 10:00 Dose: 150 mg Senna (Senna -) 1 tab PO DAILY [facility] Last Admin: 02/10/17 10:00 Dose: 1 tab ASSESSMENT AND PLAN: Acute on Chronic Hypoxic Respiratory Failure improving Pneumonia Sarcoidosis COPD Septic Shock improving Pulmonary HTN h/o ICD h/o DVT - continue antibiotics - lasix as needed if short of breath - CXR in AM - medrol taper - inhaled bronchodilators - O2 to keep SpO2 >90% - PO as tolerated - continue anticoagulation - can monitor on telemetry
[2017-02-10] MEDS: ALBUTEROL SO4 2.5/IPRATROPIUM 0.5 INH SOL 3 ML VIAL.NEB. NEB SCH (17:45)
[2017-02-10] MEDS ORDERED: HEPARIN NA (PORCINE) 5,000 UNITS/ML 1ML VIAL IVPUSH PRN ×2 (18:53)
--- NOTE | 2017-02-10 20:48 | PN ---
Progress Note (short form) - Note Progress Note: patient seen and examined in ICU this am patient more alert / O2 NC 4 lpm with sats 95% Vital Signs Period Temp Pulse Resp BP Sys/Londono Pulse Ox Last 24 Hr 97.5 F-98.3 F 71-105 18-24 95-136/60-93 94-100 Intake & Output 02/07/17 02/08/17 02/09/17 02/10/17 23:59 23:59 23:59 23:59 Intake Total 2972 3672 1802 600 Output Total 3800 3200 2400 Balance -828 472 -598 600 Weight 172 lb 8 oz 172 lb 3.2 oz 167 lb 5.294 oz 172 lb neck supple heart irregular lungs grossly clear -poor inspiration abd soft non tender ext no edema / no calf tenderness CBC, BMP 02/09/17 05:00 02/09/17 05:00 Microbiology CBC, BMP 02/10/17 05:50 02/10/17 05:50 Microbiology 02/07/17 05:45 Nasopharyngeal Swab Respiratory Virus (PCR) - Final 02/06/17 14:30 Blood - Peripheral Venous Blood Culture - Preliminary NO GROWTH OBTAINED AFTER 96 HOURS, INCUBATION TO CONTINUE FOR 1 DAYS. 02/06/17 10:20 Sputum - Endotrachea Suction/Ventilator Gram Stain - Final 02/06/17 10:20 Sputum - Endotrachea Suction/Ventilator Sputum Culture - Final NORMAL RESPIRATORY MARTHA 02/06/17 14:30 Blood - Peripheral Venous Blood Culture - Preliminary Klebsiella Oxytoca 02/07/17 13:57 Urine For Antigen Detection Legionella Antigen - Final 02/07/17 13:57 Urine For Antigen Detection Streptococcus pneumoniae Antigen (M - Final 02/07/17 12:10 Nasopharyngeal Swab Influenza Types A,B Antigen (SANGITA) - Final 02/07/17 12:10 Nasopharyngeal Swab - Final 02/06/17 14:30 Urine - Urine Clean Catch Urine Culture - Final NO GROWTH OBTAINED Active Medications Albuterol Sulfate (Ventolin 0.083% Nebulizer Soln -) 1 amp NEB Q4H PRN PRN Reason: SHORT OF BREATH/WHEEZING Albuterol/Ipratropium (Duoneb -) 1 amp NEB QIDR [facility] Last Admin: 02/10/17 17:45 Dose: 1 amp Apixaban (Eliquis -) 5 mg PO BID [facility] Atorvastatin Calcium (Lipitor -) 10 mg PO HS [facility] Chlorhexidine Gluconate (Hibiclens For Decolonization -) 1 applic TP HS [facility] Aztreonam 2 gm/ Dextrose 100 mls @ 100 mls/hr IV Q8H-IV [facility] PRN Reason: Protocol Insulin Aspart (Novolog Vial Sliding Scale -) 1 vial SQ ACHS [facility] PRN Reason: Protocol Last Admin: 02/10/17 17:39 Dose: 8 units Insulin Detemir (Levemir Vial) 10 units SQ BID [facility] Last Admin: 02/10/17 10:23 Dose: 10 units Methylprednisolone Sodium Succinate (Solu-Medrol -) 40 mg IVPUSH BID [facility] Montelukast Sodium (Singulair -) 10 mg PO HS [facility] Last Admin: 02/09/17 22:09 Dose: 10 mg Mupirocin (Bactroban Ointment (For Decolonization) -) 1 applic NS BID [facility] Stop: 02/12/17 09:59 Polyethylene Glycol (Miralax (For Daily Use) -) 17 gm PO DAILY [facility] Last Admin: 02/10/17 10:21 Dose: 17 grams Pregabalin (Lyrica -) 75 mg PO BID [facility] Last Admin: 02/10/17 10:00 Dose: 75 mg Ranitidine HCl (Zantac -) 150 mg PO BID [facility] Senna (Senna -) 1 tab PO DAILY [facility] Last Admin: 02/10/17 10:00 Dose: 1 tab [address] resident with PMH HTN, pHTN, Cardiac and Pulmonary Sarcoid, hfpef, hx VT s/p ICD, DM, Lupus, hx DVT ( apixaban),hep C, GERD, chronic back pain ( s/p revision and s/p morphine pump 2012), COPD, O2 dependent 5lpm, who was transferred to ER due to increased lethargy over last 2 days, per family patient less responsive yesterday am and transfer ordered. Septic shock requiring intubation and pressors started in ER Currently in ICU. She has remained extubated and hemodynamically stable, more alert and comfortable today. - remains extubated / awake / alert NC 4 LPM with sats >94% - IV Steroid stress doses / ( adjunct tx septic shock) discussed with ICU will require fci steroids due to Cardiac Sarcoid will also need to discuss with family or patient as to where Dx and treatment was initiated - renal function back to baseline / follow lytes - replace as needed - remains hemodynamically stable discussed and agree transfer to telemetry -management per ICU attending / appreciate and discuss Problem List - Problems (1) Septic shock Code(s): A41.9 - SEPSIS, UNSPECIFIED ORGANISM R65.21 - SEVERE SEPSIS WITH SEPTIC SHOCK (2) Respiratory failure Code(s): J96.90 - RESPIRATORY FAILURE, UNSP, UNSP W HYPOXIA OR HYPERCAPNIA (3) SHERRI (acute kidney injury) Code(s): N17.9 - ACUTE KIDNEY FAILURE, UNSPECIFIED (4) Hypotension Code(s): I95.9 - HYPOTENSION, UNSPECIFIED (5) Hypercarbia Code(s): R06.89 - OTHER ABNORMALITIES OF BREATHING (6) Hypoxia Code(s): R09.02 - HYPOXEMIA (7) Pneumonia Code(s): J18.9 - PNEUMONIA, UNSPECIFIED ORGANISM Qualifiers: Pneumonia type: due to unspecified organism Laterality: bilateral Lung location: unspecified part of lung Qualified Code(s): J18.9 - Pneumonia, unspecified organism; J18.9 - Pneumonia, unspecified organism (8) CHF (congestive heart failure) Code(s): I50.9 - HEART FAILURE, UNSPECIFIED Qualifiers: Congestive heart failure type: unspecified congestive heart failure type Congestive heart failure chronicity: acute on chronic Qualified Code(s ): I50.9 - Heart failure, unspecified; I50.9 - Heart failure, unspecified; I50.9 - Heart failure, unspecified; I50.9 - Heart failure, unspecified (9) COPD (chronic obstructive pulmonary disease) Code(s): J44.9 - CHRONIC OBSTRUCTIVE PULMONARY DISEASE, UNSPECIFIED Qualifiers : COPD type: COPD with acute exacerbation Qualified Code(s): J44.1 - Chronic obstructive pulmonary disease with (acute) exacerbation; J44.1 - Chronic obstructive pulmonary disease with (acute) exacerbation; J44.1 - Chronic obstructive pulmonary disease with (acute) exacerbation; J44.1 - Chronic obstructive pulmonary disease with (acute) exacerbation (10) Chronic low back pain Code(s): M54.5 - LOW BACK PAIN G89.29 - OTHER CHRONIC PAIN (11) ICD (implantable cardioverter-defibrillator), dual, in situ Code(s): Z95.810 - PRESENCE OF AUTOMATIC (IMPLANTABLE) CARDIAC DEFIBRILLATOR (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
[2017-02-10] MEDS: CHLORHEXIDINE GLUCONATE 4% CLEANSER FOR DECOLONIZATION TP SCH (22:15)
[2017-02-10] MEDS: ATORVASTATIN CA 10 MG TABLET (FP) PO SCH (22:19)
[2017-02-10] MEDS: MONTELUKAST NA 10 MG TABLET PO SCH (22:19)
[2017-02-11] MEDS: ALBUTEROL SO4 2.5/IPRATROPIUM 0.5 INH SOL 3 ML VIAL.NEB. NEB SCH ×5 (00:10→23:10)
[2017-02-11] MEDS ORDERED: AZTREONAM 2 GM in DEXTROSE 5%-WATER - 100 ML IV SCH (02:00)
[2017-02-11] MEDS: AZTREONAM IVPUSH SCH ×3 (02:27→17:56)
[2017-02-11] MEDS ORDERED: PT OWN MED DRAWER 7, Y5N ONE ×2 (06:03→17:54)
[2017-02-11] MEDS: INSULIN SLIDING SCALE (NOVOLOG) 1 VIAL SQ SCH ×4 (06:29→21:05)
[2017-02-11 08:53] LABS: MCH 26.3 pg (25.7-33.7); MCHC 32.8 g/dl (32.0-36.0); MEAN PLT VOLUME 8.1 fl (7.5-11.1); PLATELET COUNT 295 K/MM3 (134-434); RDW 21.4 % (11.6-15.6); WHITE BLOOD COUNT 9.4 K/mm3 (4.0-10.0)
[2017-02-11 09:19] LABS: ANION GAP 10 (8-16); CALCIUM 8.7 mg/dL (8.5-10.1); CO2 28 mmol/L (21-32); CREATININE 0.8 mg/dL (0.55-1.02)
[2017-02-11] MEDS: SENNOSIDES 8.6MG TABLET (FP) PO SCH (09:57)
[2017-02-11] MEDS: methylPREDNISolone NA SUCC 40 MG/1 ML VIAL IVPUSH SCH ×2 (09:57→21:32)
[2017-02-11] MEDS: PREGABALIN 75 MG CAPSULE PO SCH ×2 (09:57→21:05)
[2017-02-11] MEDS: POLYETHYLENE GLYCOL 3350 119 GM BTL PO SCH (09:57)
[2017-02-11] MEDS: RANITIDINE HCL 150 MG TABLET (FP) PO SCH ×2 (09:57→21:04)
[2017-02-11] MEDS: APIXABAN 5 MG TABLET PO SCH ×2 (09:57→21:12)
[2017-02-11] MEDS: MUPIROCIN 2% TOPICAL OINTMENT FOR DECOLONIZATION NS SCH ×2 (09:59→21:12)
[2017-02-11 10:02] LABS: METAMYELOCYTE 1 % (0-2); PLATELET ESTIMATE ADEQUATE (NORMAL); TOTAL CELLS COUNTED 100
[2017-02-11 10:05] LABS: GLUCOSE,RANDOM 382 mg/dL (74-106)
[2017-02-11] MEDS: INSULIN DETEMIR 100 UNITS/ML MDV SQ SCH ×2 (10:10→21:05)
--- NOTE | 2017-02-11 10:35 | PN ---
Progress Note (short form) - Note Progress Note: ID Offers no omplaints Aztreonam contnues Selected Entries 02/11/17 02/11/17 01:42 06:00 Temperature 98.3 F Pulse Rate 96 H Respiratory 20 Rate Blood Pressure 120/78 Microbiology 02/06/17 14:30 Blood - Peripheral Venous Blood Culture - Preliminary Klebsiella Oxytoca Laboratory Tests 02/11/17 02/11/17 06:00 06:00 WBC 9.4 Plt Count 295 BUN 28 H D Creatinine 0.8 D Assessment Klebsiella bacteremia sepsis pneumonia Patient and xray improving Plan Would continue Aztreonam total of __14 days___. Quinn SAAB Problem List - Problems (1) Allergy to multiple antibiotics Code(s): Z88.1 - ALLERGY STATUS TO OTHER ANTIBIOTIC AGENTS STATUS (2) Respiratory failure Code(s): J96.90 - RESPIRATORY FAILURE, UNSP, UNSP W HYPOXIA OR HYPERCAPNIA (3) Septic shock Code(s): A41.9 - SEPSIS, UNSPECIFIED ORGANISM R65.21 - SEVERE SEPSIS WITH SEPTIC SHOCK (4) Gram-negative bacteremia Code(s): R78.81 - BACTEREMIA
--- NOTE | 2017-02-11 13:13 | PN ---
Progress Note (short form) - Note Progress Note: PULMONARY Breathing continues to improve. Less cough, no wheezing. No fevers or chills. Last Vital Signs Temp Pulse Resp BP Pulse Ox 98.2 F 104 H 20 118/72 96 02/11/17 10:00 02/11/17 10:00 02/11/17 10:00 02/11/17 10:00 02/11/17 10:00 Gen: NAD at rest Heart: tachycardic, regular Lung: bibasilar rales Abd: soft, nontender Ext: no edema CBC, BMP 02/11/17 06:00 02/11/17 06:00 Active Medications Albuterol Sulfate (Ventolin 0.083% Nebulizer Soln -) 1 amp NEB Q4H PRN PRN Reason: SHORT OF BREATH/WHEEZING Albuterol/Ipratropium (Duoneb -) 1 amp NEB QIDR [facility] Last Admin: 02/11/17 10:00 Dose: 1 amp Apixaban (Eliquis -) 5 mg PO BID [facility] Last Admin: 02/11/17 09:57 Dose: 5 mg Atorvastatin Calcium (Lipitor -) 10 mg PO [facility] Last Admin: 02/10/17 22:19 Dose: 10 mg Chlorhexidine Gluconate (Hibiclens For Decolonization -) 1 applic TP [facility] Last Admin: 02/10/17 22:15 Dose: Not Given Aztreonam (Azactam (Restricted To Id) -) 10 mls @ 120 mls/hr IVPUSH Q8H-IV [facility] Last Admin: 02/11/17 09:57 Dose: 120 mls/hr Insulin Aspart (Novolog Vial Sliding Scale -) 1 vial SQ ACHS [facility] PRN Reason: Protocol Last Admin: 02/11/17 11:42 Dose: 10 units Insulin Detemir (Levemir Vial) 10 units SQ BID [facility] Last Admin: 02/11/17 10:10 Dose: 10 units Methylprednisolone Sodium Succinate (Solu-Medrol -) 40 mg IVPUSH BID [facility] Last Admin: 02/11/17 09:57 Dose: 40 mg Montelukast Sodium (Singulair -) 10 mg PO [facility] Last Admin: 02/10/17 22:19 Dose: 10 mg Mupirocin (Bactroban Ointment (For Decolonization) -) 1 applic NS BID [facility] Stop: 02/12/17 09:59 Last Admin: 02/11/17 09:59 Dose: Not Given Polyethylene Glycol (Miralax (For Daily Use) -) 17 gm PO DAILY [facility] Last Admin: 02/11/17 09:57 Dose: 17 grams Pregabalin (Lyrica -) 75 mg PO BID [facility] Last Admin: 02/11/17 09:57 Dose: 75 mg Ranitidine HCl (Zantac -) 150 mg PO BID [facility] Last Admin: 02/11/17 09:57 Dose: 150 mg Senna (Senna -) 1 tab PO DAILY [facility] Last Admin: 02/11/17 09:57 Dose: 1 tab A/P Acute on Chronic Hypoxic Respiratory Failure improving Pneumonia Sarcoidosis COPD Septic Shock improving Pulmonary HTN h/o ICD h/o DVT - continue antibiotics - lasix as needed - medrol taper - inhaled bronchodilators - O2 to keep SpO2 >90% - PO as tolerated - continue anticoagulation
--- NOTE | 2017-02-11 14:23 | PN ---
Progress Note (short form) - Note Progress Note: patient seen and examined in telemetry patient more alert / awake - able to provide hx son at bedside -- additional Hx - DX of Sarcoid via bx 1980s O2 NC 3 lpm with sats 95% Vital Signs Period Temp Pulse Resp BP Sys/Londono Pulse Ox Last 24 Hr 97.7 F-98.3 F 78-104 18-20 95-128/60-83 94-100 neck supple heart irregular lungs grossly clear / no wheezing / rhomchi abd soft non tender ext no edema / no calf tenderness + decubiti satage II CBC, BMP 02/10/17 05:50 02/10/17 05:50 CBC, BMP 02/11/17 06:00 02/11/17 06:00 Microbiology 02/07/17 05:45 Nasopharyngeal Swab Respiratory Virus (PCR) - Final 02/06/17 14:30 Blood - Peripheral Venous Blood Culture - Preliminary NO GROWTH OBTAINED AFTER 96 HOURS, INCUBATION TO CONTINUE FOR 1 DAYS. 02/06/17 10:20 Sputum - Endotrachea Suction/Ventilator Gram Stain - Final 02/06/17 10:20 Sputum - Endotrachea Suction/Ventilator Sputum Culture - Final NORMAL RESPIRATORY MARTHA 02/06/17 14:30 Blood - Peripheral Venous Blood Culture - Preliminary Klebsiella Oxytoca 02/07/17 13:57 Urine For Antigen Detection Legionella Antigen - Final 02/07/17 13:57 Urine For Antigen Detection Streptococcus pneumoniae Antigen (M - Final 02/07/17 12:10 Nasopharyngeal Swab Influenza Types A,B Antigen (SANGITA) - Final 02/07/17 12:10 Nasopharyngeal Swab - Final 02/06/17 14:30 Urine - Urine Clean Catch Urine Culture - Final NO GROWTH OBTAINED Active Medications Albuterol Sulfate (Ventolin 0.083% Nebulizer Soln -) 1 amp NEB Q4H PRN PRN Reason: SHORT OF BREATH/WHEEZING Albuterol/Ipratropium (Duoneb -) [address] [facility] Last Admin: 02/11/17 10:00 Dose: 1 amp Apixaban (Eliquis -) [address] [facility] Last Admin: 02/11/17 09:57 Dose: 5 mg Atorvastatin Calcium (Lipitor -) [address] [facility] Last Admin: 02/10/17 22:19 Dose: 10 mg Chlorhexidine Gluconate (Hibiclens For Decolonization -) [address] [facility] Last Admin: 02/10/17 22:15 Dose: Not Given Aztreonam (Azactam (Restricted To Id) -) 10 mls @ 120 mls/hr IVPUSH Q8H-IV [facility] Last Admin: 02/11/17 09:57 Dose: 120 mls/hr Insulin Aspart (Novolog Vial Sliding Scale -) [address] [facility] PRN Reason: Protocol Last Admin: 02/11/17 11:42 Dose: 10 units Insulin Detemir (Levemir Vial) [address] [facility] Last Admin: 02/11/17 10:10 Dose: 10 units Methylprednisolone Sodium Succinate (Solu-Medrol -) [address] [facility] Last Admin: 02/11/17 09:57 Dose: 40 mg Montelukast Sodium (Singulair -) [address] [facility] Last Admin: 02/10/17 22:19 Dose: 10 mg Mupirocin (Bactroban Ointment (For Decolonization) -) [address] [facility] Stop: 02/12/17 09:59 Last Admin: 02/11/17 09:59 Dose: Not Given Polyethylene Glycol (Miralax (For Daily Use) -) [address] [facility] Last Admin: 02/11/17 09:57 Dose: 17 grams Pregabalin (Lyrica -) [address] [facility] Last Admin: 02/11/17 09:57 Dose: 75 mg Ranitidine HCl (Zantac -) [address] [facility] Last Admin: 02/11/17 09:57 Dose: 150 mg Senna (Senna -) [address] [facility] Last Admin: 02/11/17 09:57 Dose: 1 tab 62 y/o female [place] resident with PMH HTN, pHTN, Cardiac and Pulmonary Sarcoid, hfpef, hx VT s/p ICD, DM, Lupus, hx DVT ( apixaban),hep C, GERD, chronic back pain ( s/p revision and s/p morphine pump 2012), COPD, O2 dependent 5lpm, who was transferred to ER due to increased lethargy over last 2 days, per family patient less responsive yesterday am and transfer ordered. Septic shock requiring intubation and pressors started in ER Currently in ICU. She has remained extubated and hemodynamically stable, more alert and comfortable today. Patient transfered to telemetry last night more awake and alert feeling comfortable on 3 L n/c appreciate ID follow up / pulmonary follow up will continue abx/nebs/steroids/ meds Assmt # s/p septic shock ICU care / pressors / rspiratory support hemodynamically stable telemetry unit # s/p respiratory failure - Intubated / ICU # PNA -- abx per ID --14 days # Sarcoid Pulmonary .. pHTN O2 dependent keep O2 > 90% Cardiac >> ICD # COPD nebulizer / steroids/ O2 # DVT on A/C # DM Inc FS also made worse due to Medrol # HTN controlled # HpEF no evidence of CHF Problem List - Problems (1) Septic shock Code(s): A41.9 - SEPSIS, UNSPECIFIED ORGANISM R65.21 - SEVERE SEPSIS WITH SEPTIC SHOCK (2) Respiratory failure Code(s): J96.90 - RESPIRATORY FAILURE, UNSP, UNSP W HYPOXIA OR HYPERCAPNIA (3) SHERRI (acute kidney injury) Code(s): N17.9 - ACUTE KIDNEY FAILURE, UNSPECIFIED (4) Hypotension Code(s): I95.9 - HYPOTENSION, UNSPECIFIED (5) Hypercarbia Code(s): R06.89 - OTHER ABNORMALITIES OF BREATHING (6) Hypoxia Code(s): R09.02 - HYPOXEMIA (7) Pneumonia Code(s): J18.9 - PNEUMONIA, UNSPECIFIED ORGANISM Qualifiers: Pneumonia type: due to unspecified organism Laterality: bilateral Lung location: unspecified part of lung Qualified Code(s): J18.9 - Pneumonia, unspecified organism; J18.9 - Pneumonia, unspecified organism (8) CHF (congestive heart failure) Code(s): I50.9 - HEART FAILURE, UNSPECIFIED Qualifiers: Congestive heart failure type: unspecified congestive heart failure type Congestive heart failure chronicity: acute on chronic Qualified Code(s ): I50.9 - Heart failure, unspecified; I50.9 - Heart failure, unspecified; I50.9 - Heart failure, unspecified; I50.9 - Heart failure, unspecified (9) COPD (chronic obstructive pulmonary disease) Code(s): J44.9 - CHRONIC OBSTRUCTIVE PULMONARY DISEASE, UNSPECIFIED Qualifiers : COPD type: COPD with acute exacerbation Qualified Code(s): J44.1 - Chronic obstructive pulmonary disease with (acute) exacerbation; J44.1 - Chronic obstructive pulmonary disease with (acute) exacerbation; J44.1 - Chronic obstructive pulmonary disease with (acute) exacerbation; J44.1 - Chronic obstructive pulmonary disease with (acute) exacerbation (10) Chronic low back pain Code(s): M54.5 - LOW BACK PAIN G89.29 - OTHER CHRONIC PAIN (11) ICD (implantable cardioverter-defibrillator), dual, in situ Code(s): Z95.810 - PRESENCE OF AUTOMATIC (IMPLANTABLE) CARDIAC DEFIBRILLATOR (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
[2017-02-11] MEDS: MONTELUKAST NA 10 MG TABLET PO SCH (21:04)
[2017-02-11] MEDS: ATORVASTATIN CA 10 MG TABLET (FP) PO SCH (21:12)
[2017-02-11] MEDS: CHLORHEXIDINE GLUCONATE 4% CLEANSER FOR DECOLONIZATION TP SCH (21:13)
[2017-02-12] MEDS: AZTREONAM IVPUSH SCH ×3 (02:41→17:37)
[2017-02-12] MEDS: ALBUTEROL SO4 2.5/IPRATROPIUM 0.5 INH SOL 3 ML VIAL.NEB. NEB SCH ×3 (06:38→17:16)
[2017-02-12] MEDS: INSULIN SLIDING SCALE (NOVOLOG) 1 VIAL SQ SCH ×4 (07:08→21:30)
[2017-02-12 08:38] LABS: MCH 26.1 pg (25.7-33.7); MCHC 32.5 g/dl (32.0-36.0); MEAN CELL VOLUME 80.1 fl (80-96); MEAN PLT VOLUME 8.2 fl (7.5-11.1); PLATELET COUNT 296 K/MM3 (134-434); RDW 21.5 % (11.6-15.6); WHITE BLOOD COUNT 11.5 K/mm3 (4.0-10.0)
[2017-02-12] MEDS ORDERED: PT OWN MED DRAWER 7, Y5N ONE ×2 (08:53→17:06)
[2017-02-12 09:16] LABS: ANION GAP 7 (8-16); CALCIUM 8.9 mg/dL (8.5-10.1); CO2 30 mmol/L (21-32); CREATININE 0.7 mg/dL (0.55-1.02); GLUCOSE,RANDOM 293 mg/dL (74-106); MAGNESIUM 1.7 mg/dL (1.8-2.4)
[2017-02-12] MEDS: APIXABAN 5 MG TABLET PO SCH ×2 (10:17→21:24)
[2017-02-12] MEDS: PREGABALIN 75 MG CAPSULE PO SCH ×2 (10:17→21:25)
[2017-02-12] MEDS: SENNOSIDES 8.6MG TABLET (FP) PO SCH (10:18)
[2017-02-12] MEDS: INSULIN DETEMIR 100 UNITS/ML MDV SQ SCH ×2 (10:18→21:29)
[2017-02-12] MEDS: methylPREDNISolone NA SUCC 40 MG/1 ML VIAL IVPUSH SCH ×2 (10:18→21:26)
[2017-02-12] MEDS: RANITIDINE HCL 150 MG TABLET (FP) PO SCH ×2 (10:18→21:26)
[2017-02-12] MEDS: POLYETHYLENE GLYCOL 3350 119 GM BTL PO SCH (10:41)
--- NOTE | 2017-02-12 10:51 | PN ---
Progress Note (short form) - Note Progress Note: alert Vital Signs Period Temp Pulse Resp BP Sys/Londono Pulse Ox Last 24 Hr 97.8 F-98.7 F 95-111 18-20 109-137/60-98 97-98 cor-rrr lungs clear abd soft,nt ext no edema CBC, BMP 02/12/17 06:50 02/12/17 06:50 Microbiology 02/06/17 14:30 Blood - Peripheral Venous Blood Culture - Final NO GROWTH AFTER 5 DAYS INCUBATION 02/06/17 14:30 Blood - Peripheral Venous Blood Culture - Final Klebsiella Oxytoca 02/07/17 05:45 Nasopharyngeal Swab Respiratory Virus (PCR) - Final 02/06/17 10:20 Sputum - Endotrachea Suction/Ventilator Gram Stain - Final 02/06/17 10:20 Sputum - Endotrachea Suction/Ventilator Sputum Culture - Final NORMAL RESPIRATORY MARTHA 02/07/17 13:57 Urine For Antigen Detection Legionella Antigen - Final 02/07/17 13:57 Urine For Antigen Detection Streptococcus pneumoniae Antigen (M - Final 02/07/17 12:10 Nasopharyngeal Swab Influenza Types A,B Antigen (SANGITA) - Final 02/07/17 12:10 Nasopharyngeal Swab - Final 02/06/17 14:30 Urine - Urine Clean Catch Urine Culture - Final NO GROWTH OBTAINED ct scan abd pelvis no acute pathology a/p klebsiella bacteremia doing well continue azactam day #6, no other options available due to multiple allergies plan total [address] scan abd/pelvis unremarkable sarcoid- cardiac and pulmonary multiple antibiotic allergies noted plan total 14 days please call back if needed Problem List - Problems (1) Respiratory failure Code(s): J96.90 - RESPIRATORY FAILURE, UNSP, UNSP W HYPOXIA OR HYPERCAPNIA (2) Hypotension Code(s): I95.9 - HYPOTENSION, UNSPECIFIED (3) Pneumonia Code(s): J18.9 - PNEUMONIA, UNSPECIFIED ORGANISM Qualifiers: Pneumonia type: due to unspecified organism Laterality: bilateral Lung location: unspecified part of lung Qualified Code(s): J18.9 - Pneumonia, unspecified organism; J18.9 - Pneumonia, unspecified organism (4) Sarcoidosis of lung Code(s): D86.0 - SARCOIDOSIS OF LUNG (5) Allergy to multiple antibiotics Code(s): Z88.1 - ALLERGY STATUS TO OTHER ANTIBIOTIC AGENTS STATUS
--- NOTE | 2017-02-12 10:57 | PN ---
Progress Note, Physician History of Present Illness: PULMONARY AWAKE,LESS DYSPNEIC.LESS COUGH - Current Medication List Current Medications: Active Medications Albuterol Sulfate (Ventolin 0.083% Nebulizer Soln -) 1 amp NEB Q4H PRN PRN Reason: SHORT OF BREATH/WHEEZING Albuterol/Ipratropium (Duoneb -) 1 amp NEB QIDR [facility] Last Admin: 02/12/17 06:38 Dose: 1 amp Apixaban (Eliquis -) 5 mg PO BID [facility] Last Admin: 02/12/17 10:17 Dose: 5 mg Atorvastatin Calcium (Lipitor -) 10 mg PO HS [facility] Last Admin: 02/11/17 21:12 Dose: 10 mg Chlorhexidine Gluconate (Hibiclens For Decolonization -) 1 applic TP [facility] Last Admin: 02/11/17 21:13 Dose: Not Given Aztreonam (Azactam (Restricted To Id) -) 10 mls @ 120 mls/hr IVPUSH Q8H-IV [facility] Last Admin: 02/12/17 10:18 Dose: 120 mls/hr Insulin Aspart (Novolog Vial Sliding Scale -) 1 vial SQ ACHS [facility] PRN Reason: Protocol Last Admin: 02/12/17 07:08 Dose: 6 units Insulin Detemir (Levemir Vial) 10 units SQ BID [facility] Last Admin: 02/12/17 10:18 Dose: 10 units Methylprednisolone Sodium Succinate (Solu-Medrol -) 40 mg IVPUSH BID [facility] Last Admin: 02/12/17 10:18 Dose: 40 mg Montelukast Sodium (Singulair -) 10 mg PO [facility] Last Admin: 02/11/17 21:04 Dose: 10 mg Polyethylene Glycol (Miralax (For Daily Use) -) 17 gm PO DAILY [facility] Last Admin: 02/11/17 09:57 Dose: 17 grams Pregabalin (Lyrica -) 75 mg PO BID [facility] Last Admin: 02/12/17 10:17 Dose: 75 mg Ranitidine HCl (Zantac -) 150 mg PO BID [facility] Last Admin: 02/12/17 10:18 Dose: 150 mg Senna (Senna -) 1 tab PO DAILY [facility] Last Admin: 02/12/17 10:18 Dose: 1 tab - Objective Vital Signs: Vital Signs Temperature 97.8 F 02/12/17 09:00 Pulse Rate 110 H 02/12/17 09:00 Respiratory Rate 20 02/12/17 09:00 Blood Pressure 124/76 02/12/17 09:00 O2 Sat by Pulse Oximetry (%) 98 02/12/17 00:10 Constitutional: Yes: Well Nourished, Calm Eyes: Yes: WNL HENT: Yes: WNL Neck: Yes: WNL Cardiovascular: Yes: Regular Rate and Rhythm, S1, S2 Respiratory: Yes: Rales (BILATERAL CRACKLES) Gastrointestinal: Yes: Normal Bowel Sounds, Soft Extremities: Yes: WNL Edema: No Labs: CBC, BMP 02/12/17 06:50 02/12/17 06:50 INR, PTT INR 1.25 (0.82-1.09) H 02/06/17 13:21 Assessment/Plan A/P Acute on Chronic Hypoxic Respiratory Failure improving Pneumonia Sarcoidosis COPD Septic Shock improving Pulmonary HTN h/o ICD h/o DVT - continue antibiotics - lasix as needed - continue medrol - inhaled bronchodilators - O2 to keep SpO2 >90% - PO as tolerated - anticoagulation DR EUBANKS
--- NOTE | 2017-02-12 18:03 | PN ---
Progress Note (short form) - Note Progress Note: patient seen and examined in telemetry patient apperas depressed / declined participation with PT this am / does not want " to discuss it " -explained benefit ??? still declines O2 NC 3 lpm with sats 95% Vital Signs Period Temp Pulse Resp BP Sys/Londono Pulse Ox Last 24 Hr 97.7 F-98.3 F 78-104 18-20 95-128/60-83 94-100 neck supple heart irregular lungs grossly clear / no wheezing / rhomchi abd soft non tender ext no edema / no calf tenderness + decubiti satage II CBC, BMP 02/11/17 06:00 02/11/17 06:00 CBC, BMP 02/12/17 06:50 02/12/17 06:50 Microbiology 02/06/17 14:30 Blood - Peripheral Venous Blood Culture - Final NO GROWTH AFTER 5 DAYS INCUBATION 02/06/17 14:30 Blood - Peripheral Venous Blood Culture - Final Klebsiella Oxytoca 02/07/17 05:45 Nasopharyngeal Swab Respiratory Virus (PCR) - Final 02/06/17 10:20 Sputum - Endotrachea Suction/Ventilator Gram Stain - Final 02/06/17 10:20 Sputum - Endotrachea Suction/Ventilator Sputum Culture - Final NORMAL RESPIRATORY MARTHA 02/07/17 13:57 Urine For Antigen Detection Legionella Antigen - Final 02/07/17 13:57 Urine For Antigen Detection Streptococcus pneumoniae Antigen (M - Final 02/07/17 12:10 Nasopharyngeal Swab Influenza Types A,B Antigen (SANGITA) - Final 02/07/17 12:10 Nasopharyngeal Swab - Final 02/06/17 14:30 Urine - Urine Clean Catch Urine Culture - Final NO GROWTH OBTAINED Active Medications Albuterol Sulfate (Ventolin 0.083% Nebulizer Soln -) 1 amp NEB Q4H PRN PRN Reason: SHORT OF BREATH/WHEEZING Albuterol/Ipratropium (Duoneb -) 1 amp NEB QIDR [facility] Last Admin: 02/12/17 17:16 Dose: 1 amp Apixaban (Eliquis -) 5 mg PO BID [facility] Last Admin: 02/12/17 10:17 Dose: 5 mg Atorvastatin Calcium (Lipitor -) 10 mg PO HS [facility] Last Admin: 02/11/17 21:12 Dose: 10 mg Chlorhexidine Gluconate (Hibiclens For Decolonization -) 1 applic TP HS [facility] Last Admin: 02/11/17 21:13 Dose: Not Given Aztreonam (Azactam (Restricted To Id) -) 10 mls @ 120 mls/hr IVPUSH Q8H-IV [facility] Last Admin: 02/12/17 17:37 Dose: 120 mls/hr Insulin Aspart (Novolog Vial Sliding Scale -) 1 vial SQ ACHS [facility] PRN Reason: Protocol Last Admin: 02/12/17 17:37 Dose: 8 units Insulin Detemir (Levemir Vial) 10 units SQ BID [facility] Last Admin: 02/12/17 10:18 Dose: 10 units Methylprednisolone Sodium Succinate (Solu-Medrol -) 40 mg IVPUSH BID [facility] Last Admin: 02/12/17 10:18 Dose: 40 mg Montelukast Sodium (Singulair -) 10 mg PO HS [facility] Last Admin: 02/11/17 21:04 Dose: 10 mg Polyethylene Glycol (Miralax (For Daily Use) -) 17 gm PO DAILY [facility] Last Admin: 02/12/17 10:41 Dose: Not Given Pregabalin (Lyrica -) 75 mg PO BID [facility] Last Admin: 02/12/17 10:17 Dose: 75 mg Ranitidine HCl (Zantac -) 150 mg PO BID [facility] Last Admin: 02/12/17 10:18 Dose: 150 mg Senna (Senna -) 1 tab PO DAILY [facility] Last Admin: 02/12/17 10:18 Dose: 1 tab 62 y/o female [place] resident with PMH HTN, pHTN, Cardiac and Pulmonary Sarcoid, hfpef, hx VT s/p ICD, DM, Lupus, hx DVT ( apixaban),hep C, GERD, chronic back pain ( s/p revision and s/p morphine pump 2012), COPD, O2 dependent 5lpm, who was transferred to ER due to increased lethargy over last 2 days, per family patient less responsive yesterday am and transfer ordered. Septic shock requiring intubation and pressors started in ER Currently in ICU. She has remained extubated and hemodynamically stable, more alert and comfortable today. awake and alert comfortable on 3 L n/c appreciate ID follow up / pulmonary follow up will continue abx/nebs/steroids/ meds Assmt # s/p septic shock ICU care / pressors / rspiratory support hemodynamically stable telemetry unit # s/p respiratory failure - Intubated / ICU >extubated # PNA -- abx per ID --14 days # Sarcoid Pulmonary .. pHTN O2 dependent keep O2 > 90% Cardiac >> ICD # COPD nebulizer / steroids/ O2 # DVT on A/C # DM Inc FS also made worse due to Medrol # HTN controlled # HpEF no evidence of CHF Problem List - Problems (1) Septic shock Code(s): A41.9 - SEPSIS, UNSPECIFIED ORGANISM R65.21 - SEVERE SEPSIS WITH SEPTIC SHOCK (2) Respiratory failure Code(s): J96.90 - RESPIRATORY FAILURE, UNSP, UNSP W HYPOXIA OR HYPERCAPNIA (3) SHERRI (acute kidney injury) Code(s): N17.9 - ACUTE KIDNEY FAILURE, UNSPECIFIED (4) Hypotension Code(s): I95.9 - HYPOTENSION, UNSPECIFIED (5) Hypercarbia Code(s): R06.89 - OTHER ABNORMALITIES OF BREATHING (6) Hypoxia Code(s): R09.02 - HYPOXEMIA (7) Pneumonia Code(s): J18.9 - PNEUMONIA, UNSPECIFIED ORGANISM Qualifiers: Pneumonia type: due to unspecified organism Laterality: bilateral Lung location: unspecified part of lung Qualified Code(s): J18.9 - Pneumonia, unspecified organism; J18.9 - Pneumonia, unspecified organism (8) CHF (congestive heart failure) Code(s): I50.9 - HEART FAILURE, UNSPECIFIED Qualifiers: Congestive heart failure type: unspecified congestive heart failure type Congestive heart failure chronicity: acute on chronic Qualified Code(s ): I50.9 - Heart failure, unspecified; I50.9 - Heart failure, unspecified; I50.9 - Heart failure, unspecified; I50.9 - Heart failure, unspecified (9) COPD (chronic obstructive pulmonary disease) Code(s): J44.9 - CHRONIC OBSTRUCTIVE PULMONARY DISEASE, UNSPECIFIED Qualifiers : COPD type: COPD with acute exacerbation Qualified Code(s): J44.1 - Chronic obstructive pulmonary disease with (acute) exacerbation; J44.1 - Chronic obstructive pulmonary disease with (acute) exacerbation; J44.1 - Chronic obstructive pulmonary disease with (acute) exacerbation; J44.1 - Chronic obstructive pulmonary disease with (acute) exacerbation (10) Chronic low back pain Code(s): M54.5 - LOW BACK PAIN G89.29 - OTHER CHRONIC PAIN (11) ICD (implantable cardioverter-defibrillator), dual, in situ Code(s): Z95.810 - PRESENCE OF AUTOMATIC (IMPLANTABLE) CARDIAC DEFIBRILLATOR (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
[2017-02-12] MEDS ORDERED: INSULIN DETEMIR 100 UNITS/ML MDV SQ SCH (18:08)
[2017-02-12] MEDS: CHLORHEXIDINE GLUCONATE 4% CLEANSER FOR DECOLONIZATION TP SCH (21:22)
[2017-02-12] MEDS: ATORVASTATIN CA 10 MG TABLET (FP) PO SCH (21:25)
[2017-02-12] MEDS: MONTELUKAST NA 10 MG TABLET PO SCH (21:26)
[2017-02-13] MEDS: ALBUTEROL SO4 2.5/IPRATROPIUM 0.5 INH SOL 3 ML VIAL.NEB. NEB SCH ×5 (00:02→23:33)
[2017-02-13] MEDS: AZTREONAM IVPUSH SCH ×3 (01:28→17:33)
[2017-02-13] MEDS: INSULIN DETEMIR 100 UNITS/ML MDV SQ SCH ×2 (06:32→17:33)
[2017-02-13] MEDS: INSULIN SLIDING SCALE (NOVOLOG) 1 VIAL SQ SCH ×4 (06:33→21:36)
[2017-02-13 08:10] LABS: MCH 26.8 pg (25.7-33.7); MEAN CELL VOLUME 81.2 fl (80-96); MEAN PLT VOLUME 8.2 fl (7.5-11.1); PLATELET COUNT 318 K/MM3 (134-434); RDW 21.1 % (11.6-15.6); WHITE BLOOD COUNT 10.8 K/mm3 (4.0-10.0)
[2017-02-13 08:12] LABS: ANION GAP 7 (8-16); CO2 30 mmol/L (21-32); CREATININE 0.7 mg/dL (0.55-1.02); MAGNESIUM 1.5 mg/dL (1.8-2.4); PHOSPHOROUS 3.7 mg/dL (2.5-4.9)
[2017-02-13 08:26] LABS: GLUCOSE,RANDOM 330 mg/dL (74-106)
[2017-02-13] MEDS ORDERED: PT OWN MED DRAWER 7, Y5N ONE ×3 (09:25→21:18)
--- NOTE | 2017-02-13 10:32 | PN ---
Progress Note, Physician History of Present Illness: PULMONARY ALERT,LESS DYSPNEIC,-RESP DISTRESS - Current Medication List Current Medications: Active Medications Albuterol Sulfate (Ventolin 0.083% Nebulizer Soln -) 1 amp NEB Q4H PRN PRN Reason: SHORT OF BREATH/WHEEZING Albuterol/Ipratropium (Duoneb -) 1 amp NEB QIDR [facility] Last Admin: 02/13/17 07:05 Dose: 1 amp Apixaban (Eliquis -) 5 mg PO BID [facility] Last Admin: 02/12/17 21:24 Dose: 5 mg Atorvastatin Calcium (Lipitor -) 10 mg PO HS [facility] Last Admin: 02/12/17 21:25 Dose: 10 mg Chlorhexidine Gluconate (Hibiclens For Decolonization -) 1 applic TP [facility] Last Admin: 02/12/17 21:22 Dose: Not Given Aztreonam (Azactam (Restricted To Id) -) 10 mls @ 120 mls/hr IVPUSH Q8H-IV [facility] Last Admin: 02/13/17 01:28 Dose: 120 mls/hr Insulin Aspart (Novolog Vial Sliding Scale -) 1 vial SQ ACHS [facility] PRN Reason: Protocol Last Admin: 02/13/17 06:33 Dose: 6 units Insulin Detemir (Levemir Vial) 15 units SQ BID@0700,1630 [facility] Last Admin: 02/13/17 06:32 Dose: 15 units Methylprednisolone Sodium Succinate (Solu-Medrol -) 40 mg IVPUSH BID [facility] Last Admin: 02/12/17 21:26 Dose: 40 mg Montelukast Sodium (Singulair -) 10 mg PO [facility] Last Admin: 02/12/17 21:26 Dose: 10 mg Polyethylene Glycol (Miralax (For Daily Use) -) 17 gm PO DAILY [facility] Last Admin: 02/12/17 10:41 Dose: Not Given Pregabalin (Lyrica -) 75 mg PO BID [facility] Last Admin: 02/12/17 21:25 Dose: 75 mg Ranitidine HCl (Zantac -) 150 mg PO BID [facility] Last Admin: 02/12/17 21:26 Dose: 150 mg Senna (Senna -) 1 tab PO DAILY [facility] Last Admin: 02/12/17 10:18 Dose: 1 tab - Objective Vital Signs: Vital Signs Temperature 97.8 F 02/13/17 06:00 Pulse Rate 82 02/13/17 06:00 Respiratory Rate 20 02/13/17 06:00 Blood Pressure 130/78 02/13/17 06:00 O2 Sat by Pulse Oximetry (%) 97 02/13/17 00:15 Constitutional: Yes: Well Nourished, Calm Eyes: Yes: WNL HENT: Yes: WNL Neck: Yes: WNL Cardiovascular: Yes: Regular Rate and Rhythm, S1, S2 Respiratory: Yes: Rales (BILATERAL CRACKLES) Gastrointestinal: Yes: Normal Bowel Sounds, Soft Extremities: Yes: WNL Edema: No Labs: CBC, BMP 02/13/17 06:30 02/13/17 06:30 INR, PTT INR 1.25 (0.82-1.09) H 02/06/17 13:21 Problem List - Problems (1) SHERRI (acute kidney injury) Code(s): N17.9 - ACUTE KIDNEY FAILURE, UNSPECIFIED (2) Gram-negative bacteremia Code(s): R78.81 - BACTEREMIA (3) Hypercarbia Code(s): R06.89 - OTHER ABNORMALITIES OF BREATHING (4) Hypotension Code(s): I95.9 - HYPOTENSION, UNSPECIFIED (5) Hypoxia Code(s): R09.02 - HYPOXEMIA (6) Respiratory failure Code(s): J96.90 - RESPIRATORY FAILURE, UNSP, UNSP W HYPOXIA OR HYPERCAPNIA (7) Septic shock Code(s): A41.9 - SEPSIS, UNSPECIFIED ORGANISM R65.21 - SEVERE SEPSIS WITH SEPTIC SHOCK (8) CHF (congestive heart failure) Code(s): I50.9 - HEART FAILURE, UNSPECIFIED Qualifiers: Congestive heart failure type: unspecified congestive heart failure type Congestive heart failure chronicity: acute on chronic Qualified Code(s ): I50.9 - Heart failure, unspecified; I50.9 - Heart failure, unspecified; I50.9 - Heart failure, unspecified; I50.9 - Heart failure, unspecified (9) COPD exacerbation Code(s): J44.1 - CHRONIC OBSTRUCTIVE PULMONARY DISEASE W (ACUTE) EXACERBATION (10) ICD (implantable cardioverter-defibrillator), dual, in situ Code(s): Z95.810 - PRESENCE OF AUTOMATIC (IMPLANTABLE) CARDIAC DEFIBRILLATOR (11) Lung infiltrate Code(s): R91.8 - OTHER NONSPECIFIC ABNORMAL FINDING OF LUNG FIELD (12) Pneumonia Code(s): J18.9 - PNEUMONIA, UNSPECIFIED ORGANISM Qualifiers: Pneumonia type: due to unspecified organism Laterality: bilateral Lung location: unspecified part of lung Qualified Code(s): J18.9 - Pneumonia, unspecified organism; J18.9 - Pneumonia, unspecified organism (13) SOB (shortness of breath) Code(s): R06.02 - SHORTNESS OF BREATH (14) Sarcoidosis Code(s): D86.9 - SARCOIDOSIS, UNSPECIFIED Assessment/Plan A/P Acute on Chronic Hypoxic Respiratory Failure improving Pneumonia Sarcoidosis COPD Septic Shock improved Pulmonary HTN h/o ICD h/o DVT - continue antibiotics - lasix as needed - continue medrol - inhaled bronchodilators - O2 to keep SpO2 >90% - PO as tolerated - anticoagulation DR EUBANKS
[2017-02-13] MEDS: methylPREDNISolone NA SUCC 40 MG/1 ML VIAL IVPUSH SCH ×2 (11:05→21:37)
[2017-02-13] MEDS: APIXABAN 5 MG TABLET PO SCH ×2 (11:05→21:36)
[2017-02-13] MEDS: RANITIDINE HCL 150 MG TABLET (FP) PO SCH ×2 (11:05→21:35)
[2017-02-13] MEDS: SENNOSIDES 8.6MG TABLET (FP) PO SCH (11:05)
[2017-02-13] MEDS: PREGABALIN 75 MG CAPSULE PO SCH ×2 (11:05→21:36)
[2017-02-13] MEDS: POLYETHYLENE GLYCOL 3350 119 GM BTL PO SCH (11:12)
[2017-02-13] MEDS ORDERED: MAGNESIUM SULF 50% (8.12 MEQ/2 ML-1 GM VIAL) IVPB ONE (13:15)
--- NOTE | 2017-02-13 20:44 | PN ---
Progress Note (short form) - Note Progress Note: patient seen and examined in telemetry patient appears depressed still declines to participate in PT O2 NC 3 lpm with sats 95% Vital Signs Period Temp Pulse Resp BP Sys/Londono Pulse Ox Last 24 Hr 97.7 F-98.3 F 78-104 18-20 95-128/60-83 94-100 neck supple heart irregular lungs grossly clear / no wheezing / rhomchi abd soft non tender ext no edema / no calf tenderness + decubiti satage II 02/12/17 06:50 02/12/17 06:50 CBC, BMP 02/13/17 06:30 02/13/17 06:30 continues with elevated FS levemir inc to 15 units BID Microbiology 02/12/17 11:50 Blood - Peripheral Venous Blood Culture - Preliminary NO GROWTH OBTAINED AFTER 24 HOURS, INCUBATION TO CONTINUE FOR 4 DAYS. 02/12/17 11:45 Blood - Peripheral Venous Blood Culture - Preliminary NO GROWTH OBTAINED AFTER 24 HOURS, INCUBATION TO CONTINUE FOR 4 DAYS. 02/06/17 14:30 Blood - Peripheral Venous Blood Culture - Final NO GROWTH AFTER 5 DAYS INCUBATION 02/06/17 14:30 Blood - Peripheral Venous Blood Culture - Final Klebsiella Oxytoca 02/07/17 05:45 Nasopharyngeal Swab Respiratory Virus (PCR) - Final 02/06/17 10:20 Sputum - Endotrachea Suction/Ventilator Gram Stain - Final 02/06/17 10:20 Sputum - Endotrachea Suction/Ventilator Sputum Culture - Final NORMAL RESPIRATORY MARTHA 02/07/17 13:57 Urine For Antigen Detection Legionella Antigen - Final 02/07/17 13:57 Urine For Antigen Detection Streptococcus pneumoniae Antigen (M - Final 02/07/17 12:10 Nasopharyngeal Swab Influenza Types A,B Antigen (SANGITA) - Final 02/07/17 12:10 Nasopharyngeal Swab - Final 02/06/17 14:30 Urine - Urine Clean Catch Urine Culture - Final NO GROWTH OBTAINED Active Medications Albuterol Sulfate (Ventolin 0.083% Nebulizer Soln -) 1 amp NEB Q4H PRN PRN Reason: SHORT OF BREATH/WHEEZING Albuterol/Ipratropium (Duoneb -) 1 amp NEB QIDR [facility] Last Admin: 02/12/17 17:16 Dose: 1 amp Apixaban (Eliquis -) 5 mg PO BID [facility] Last Admin: 02/12/17 10:17 Dose: 5 mg Atorvastatin Calcium (Lipitor -) 10 mg PO HS [facility] Last Admin: 02/11/17 21:12 Dose: 10 mg Chlorhexidine Gluconate (Hibiclens For Decolonization -) 1 applic TP [facility] Last Admin: 02/11/17 21:13 Dose: Not Given Aztreonam (Azactam (Restricted To Id) -) 10 mls @ 120 mls/hr IVPUSH Q8H-IV [facility] Last Admin: 02/12/17 17:37 Dose: 120 mls/hr Insulin Aspart (Novolog Vial Sliding Scale -) 1 vial SQ ACHS [facility] PRN Reason: Protocol Last Admin: 02/12/17 17:37 Dose: 8 units Insulin Detemir (Levemir Vial) 10 units SQ BID [facility] Last Admin: 02/12/17 10:18 Dose: 10 units Methylprednisolone Sodium Succinate (Solu-Medrol -) 40 mg IVPUSH BID [facility] Last Admin: 02/12/17 10:18 Dose: 40 mg Montelukast Sodium (Singulair -) 10 mg PO [facility] Last Admin: 02/11/17 21:04 Dose: 10 mg Polyethylene Glycol (Miralax (For Daily Use) -) 17 gm PO DAILY [facility] Last Admin: 02/12/17 10:41 Dose: Not Given Pregabalin (Lyrica -) 75 mg PO BID [facility] Last Admin: 02/12/17 10:17 Dose: 75 mg Ranitidine HCl (Zantac -) 150 mg PO BID [facility] Last Admin: 02/12/17 10:18 Dose: 150 mg Senna (Senna -) 1 tab PO DAILY [facility] Last Admin: 02/12/17 10:18 Dose: 1 tab 62 y/o female [place] resident with PMH HTN, pHTN, Cardiac and Pulmonary Sarcoid, hfpef, hx VT s/p ICD, DM, Lupus, hx DVT ( apixaban),hep C, GERD, chronic back pain ( s/p revision and s/p morphine pump 2012), COPD, O2 dependent 5lpm, who was transferred to ER due to increased lethargy over last 2 days, per family patient less responsive yesterday am and transfer ordered. Septic shock requiring intubation and pressors started in ER Currently in ICU. She has remained extubated and hemodynamically stable, more alert and comfortable today. awake and alert comfortable on 3 L n/c appreciate ID follow up / pulmonary follow up will continue abx/nebs/steroids/ meds Assmt # s/p septic shock ICU care / pressors / rspiratory support hemodynamically stable now on telemetry unit # s/p respiratory failure - Intubated / ICU /extubated # PNA -- abx per ID --14 days # Sarcoid -- continue steroid Pulmonary .. pHTN O2 dependent keep O2 > 90% Cardiac >> ICD # COPD nebulizer / steroids/ O2 # DVT on A/C # DM Inc FS also made worse due to Medrol # HTN controlled # HpEF no evidence of CHF # depression will start remeron Problem List - Problems (1) Septic shock Code(s): A41.9 - SEPSIS, UNSPECIFIED ORGANISM R65.21 - SEVERE SEPSIS WITH SEPTIC SHOCK (2) Respiratory failure Code(s): J96.90 - RESPIRATORY FAILURE, UNSP, UNSP W HYPOXIA OR HYPERCAPNIA (3) SHERRI (acute kidney injury) Code(s): N17.9 - ACUTE KIDNEY FAILURE, UNSPECIFIED (4) Hypotension Code(s): I95.9 - HYPOTENSION, UNSPECIFIED (5) Hypercarbia Code(s): R06.89 - OTHER ABNORMALITIES OF BREATHING (6) Hypoxia Code(s): R09.02 - HYPOXEMIA (7) Pneumonia Code(s): J18.9 - PNEUMONIA, UNSPECIFIED ORGANISM Qualifiers: Pneumonia type: due to unspecified organism Laterality: bilateral Lung location: unspecified part of lung Qualified Code(s): J18.9 - Pneumonia, unspecified organism; J18.9 - Pneumonia, unspecified organism (8) CHF (congestive heart failure) Code(s): I50.9 - HEART FAILURE, UNSPECIFIED Qualifiers: Congestive heart failure type: unspecified congestive heart failure type Congestive heart failure chronicity: acute on chronic Qualified Code(s ): I50.9 - Heart failure, unspecified; I50.9 - Heart failure, unspecified; I50.9 - Heart failure, unspecified; I50.9 - Heart failure, unspecified (9) COPD (chronic obstructive pulmonary disease) Code(s): J44.9 - CHRONIC OBSTRUCTIVE PULMONARY DISEASE, UNSPECIFIED Qualifiers : COPD type: COPD with acute exacerbation Qualified Code(s): J44.1 - Chronic obstructive pulmonary disease with (acute) exacerbation; J44.1 - Chronic obstructive pulmonary disease with (acute) exacerbation; J44.1 - Chronic obstructive pulmonary disease with (acute) exacerbation; J44.1 - Chronic obstructive pulmonary disease with (acute) exacerbation (10) Chronic low back pain Code(s): M54.5 - LOW BACK PAIN G89.29 - OTHER CHRONIC PAIN (11) ICD (implantable cardioverter-defibrillator), dual, in situ Code(s): Z95.810 - PRESENCE OF AUTOMATIC (IMPLANTABLE) CARDIAC DEFIBRILLATOR (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
[2017-02-13] MEDS: ATORVASTATIN CA 10 MG TABLET (FP) PO SCH (21:35)
[2017-02-13] MEDS: MONTELUKAST NA 10 MG TABLET PO SCH (21:35)
[2017-02-13] MEDS: MIRTAZAPINE 15 MG TABLET (FP) PO SCH ×2 (21:36→21:44)
[2017-02-13] MEDS: CHLORHEXIDINE GLUCONATE 4% CLEANSER FOR DECOLONIZATION TP SCH (22:00)
[2017-02-14] MEDS: AZTREONAM IVPUSH SCH ×3 (01:06→17:07)
[2017-02-14] MEDS ORDERED: PT OWN MED DRAWER 7, Y5N ONE ×2 (01:56→16:48)
[2017-02-14] MEDS: ALBUTEROL SO4 2.5/IPRATROPIUM 0.5 INH SOL 3 ML VIAL.NEB. NEB SCH ×4 (06:40→23:15)
[2017-02-14] MEDS: INSULIN DETEMIR 100 UNITS/ML MDV SQ SCH ×2 (06:50→16:46)
[2017-02-14] MEDS: INSULIN SLIDING SCALE (NOVOLOG) 1 VIAL SQ SCH ×5 (06:50→21:39)
[2017-02-14 07:36] LABS: MCHC 31.7 g/dl (32.0-36.0); MEAN CELL VOLUME 82.1 fl (80-96); MEAN PLT VOLUME 8.2 fl (7.5-11.1); PLATELET COUNT 348 K/MM3 (134-434); RDW 21.8 % (11.6-15.6); WHITE BLOOD COUNT 12.2 K/mm3 (4.0-10.0)
[2017-02-14 08:34] LABS: ANION GAP 10 (8-16); CO2 28 mmol/L (21-32); CREATININE 0.8 mg/dL (0.55-1.02)
[2017-02-14 08:45] LABS: GLUCOSE,RANDOM 394 mg/dL (74-106)
[2017-02-14] MEDS: RANITIDINE HCL 150 MG TABLET (FP) PO SCH ×2 (09:41→21:34)
[2017-02-14] MEDS: SENNOSIDES 8.6MG TABLET (FP) PO SCH (09:41)
[2017-02-14] MEDS: methylPREDNISolone NA SUCC 40 MG/1 ML VIAL IVPUSH SCH ×2 (09:41→21:34)
[2017-02-14] MEDS: PREGABALIN 75 MG CAPSULE PO SCH ×2 (09:41→21:33)
[2017-02-14] MEDS: POLYETHYLENE GLYCOL 3350 119 GM BTL PO SCH (09:41)
[2017-02-14] MEDS: APIXABAN 5 MG TABLET PO SCH ×2 (09:41→21:33)
--- NOTE | 2017-02-14 10:53 | PN ---
Progress Note, Physician History of Present Illness: PULMONARY ALERT,LESS CONGESTED,NAD - Current Medication List Current Medications: Active Medications Albuterol Sulfate (Ventolin 0.083% Nebulizer Soln -) 1 amp NEB Q4H PRN PRN Reason: SHORT OF BREATH/WHEEZING Albuterol/Ipratropium (Duoneb -) 1 amp NEB QIDR [facility] Last Admin: 02/14/17 06:40 Dose: 1 amp Apixaban (Eliquis -) 5 mg PO BID [facility] Last Admin: 02/14/17 09:41 Dose: 5 mg Atorvastatin Calcium (Lipitor -) 10 mg PO HS [facility] Last Admin: 02/13/17 21:35 Dose: 10 mg Chlorhexidine Gluconate (Hibiclens For Decolonization -) 1 applic TP [facility] Last Admin: 02/13/17 22:00 Dose: Not Given Aztreonam (Azactam (Restricted To Id) -) 10 mls @ 120 mls/hr IVPUSH Q8H-IV [facility] Last Admin: 02/14/17 09:41 Dose: 120 mls/hr Insulin Aspart (Novolog Vial Sliding Scale -) 1 vial SQ ACHS [facility] PRN Reason: Protocol Last Admin: 02/14/17 06:50 Dose: 10 units Insulin Detemir (Levemir Vial) 15 units SQ BID@0700,1630 [facility] Last Admin: 02/14/17 06:50 Dose: 15 units Methylprednisolone Sodium Succinate (Solu-Medrol -) 40 mg IVPUSH BID [facility] Last Admin: 02/14/17 09:41 Dose: 40 mg Mirtazapine (Remeron -) 15 mg PO [facility] Last Admin: 02/13/17 21:44 Dose: Not Given Montelukast Sodium (Singulair -) 10 mg PO HS [facility] Last Admin: 02/13/17 21:35 Dose: 10 mg Polyethylene Glycol (Miralax (For Daily Use) -) 17 gm PO DAILY [facility] Last Admin: 02/14/17 09:41 Dose: Not Given Pregabalin (Lyrica -) 75 mg PO BID [facility] Last Admin: 02/14/17 09:41 Dose: 75 mg Ranitidine HCl (Zantac -) 150 mg PO BID [facility] Last Admin: 02/14/17 09:41 Dose: 150 mg Senna (Senna -) 1 tab PO DAILY [facility] Last Admin: 02/14/17 09:41 Dose: 1 tab - Objective Vital Signs: Vital Signs Temperature 98.3 F 02/14/17 06:00 Pulse Rate 93 H 02/14/17 10:50 Respiratory Rate 20 02/14/17 06:00 Blood Pressure 130/74 02/14/17 06:00 O2 Sat by Pulse Oximetry (%) 98 02/14/17 10:50 Constitutional: Yes: Well Nourished, Calm Eyes: Yes: WNL HENT: Yes: WNL Neck: Yes: WNL Cardiovascular: Yes: Regular Rate and Rhythm, S1, S2 Respiratory: Yes: Rales (BILATERAL CRACKLES) Gastrointestinal: Yes: Normal Bowel Sounds, Soft Extremities: Yes: WNL Edema: No Labs: CBC, BMP 02/14/17 06:00 02/14/17 06:00 INR, PTT INR 1.25 (0.82-1.09) H 02/06/17 13:21 Problem List - Problems (1) SHERRI (acute kidney injury) Code(s): N17.9 - ACUTE KIDNEY FAILURE, UNSPECIFIED (2) Gram-negative bacteremia Code(s): R78.81 - BACTEREMIA (3) Hypercarbia Code(s): R06.89 - OTHER ABNORMALITIES OF BREATHING (4) Hypotension Code(s): I95.9 - HYPOTENSION, UNSPECIFIED (5) Hypoxia Code(s): R09.02 - HYPOXEMIA (6) Respiratory failure Code(s): J96.90 - RESPIRATORY FAILURE, UNSP, UNSP W HYPOXIA OR HYPERCAPNIA (7) Septic shock Code(s): A41.9 - SEPSIS, UNSPECIFIED ORGANISM R65.21 - SEVERE SEPSIS WITH SEPTIC SHOCK (8) CHF (congestive heart failure) Code(s): I50.9 - HEART FAILURE, UNSPECIFIED Qualifiers: Congestive heart failure type: unspecified congestive heart failure type Congestive heart failure chronicity: acute on chronic Qualified Code(s ): I50.9 - Heart failure, unspecified; I50.9 - Heart failure, unspecified; I50.9 - Heart failure, unspecified; I50.9 - Heart failure, unspecified (9) COPD exacerbation Code(s): J44.1 - CHRONIC OBSTRUCTIVE PULMONARY DISEASE W (ACUTE) EXACERBATION (10) ICD (implantable cardioverter-defibrillator), dual, in situ Code(s): Z95.810 - PRESENCE OF AUTOMATIC (IMPLANTABLE) CARDIAC DEFIBRILLATOR (11) Lung infiltrate Code(s): R91.8 - OTHER NONSPECIFIC ABNORMAL FINDING OF LUNG FIELD (12) Pneumonia Code(s): J18.9 - PNEUMONIA, UNSPECIFIED ORGANISM Qualifiers: Pneumonia type: due to unspecified organism Laterality: bilateral Lung location: unspecified part of lung Qualified Code(s): J18.9 - Pneumonia, unspecified organism; J18.9 - Pneumonia, unspecified organism (13) SOB (shortness of breath) Code(s): R06.02 - SHORTNESS OF BREATH (14) Sarcoidosis Code(s): D86.9 - SARCOIDOSIS, UNSPECIFIED Assessment/Plan A/P Acute on Chronic Hypoxic Respiratory Failure improving Pneumonia Sarcoidosis COPD Septic Shock improved Pulmonary HTN h/o ICD h/o DVT - continue antibiotics - lasix as needed - medrol - inhaled bronchodilators - O2 to keep SpO2 >90% - PO as tolerated - anticoagulation DR EUBANKS
--- NOTE | 2017-02-14 19:21 | PN ---
Progress Note (short form) - Note Progress Note: patient seen and examined in telemetry patient appears less depressed states feeling "tight" will ask fr PRN treatment O2 NC 3 lpm with sats 95% will be using Bipap tonight Vital Signs Period Temp Pulse Resp BP Sys/Londono Pulse Ox Last 24 Hr 97.7 F-98.3 F 78-104 18-20 95-128/60-83 94-100 neck supple heart irregular lungs exp wheezing on right / mild scattered rhonchi abd soft non tender ext no edema / no calf tenderness + decubiti satage II 02/12/17 06:50 02/12/17 06:50 CBC, BMP 02/13/17 06:30 02/13/17 06:30 CBC, BMP 02/14/17 06:00 02/14/17 06:00 continues with elevated FS levemir inc to 15 units BID 02/12 Microbiology 02/12/17 11:50 Blood - Peripheral Venous Blood Culture - Preliminary NO GROWTH OBTAINED AFTER 48 HOURS, INCUBATION TO CONTINUE FOR 3 DAYS. 02/12/17 11:45 Blood - Peripheral Venous Blood Culture - Preliminary NO GROWTH OBTAINED AFTER 48 HOURS, INCUBATION TO CONTINUE FOR 3 DAYS. 02/06/17 14:30 Blood - Peripheral Venous Blood Culture - Final NO GROWTH AFTER 5 DAYS INCUBATION 02/06/17 14:30 Blood - Peripheral Venous Blood Culture - Final Klebsiella Oxytoca 02/07/17 05:45 Nasopharyngeal Swab Respiratory Virus (PCR) - Final 02/06/17 10:20 Sputum - Endotrachea Suction/Ventilator Gram Stain - Final 02/06/17 10:20 Sputum - Endotrachea Suction/Ventilator Sputum Culture - Final NORMAL RESPIRATORY MARTHA 02/07/17 13:57 Urine For Antigen Detection Legionella Antigen - Final 02/07/17 13:57 Urine For Antigen Detection Streptococcus pneumoniae Antigen (M - Final 02/07/17 12:10 Nasopharyngeal Swab Influenza Types A,B Antigen (SANGITA) - Final 02/07/17 12:10 Nasopharyngeal Swab - Final 02/06/17 14:30 Urine - Urine Clean Catch Urine Culture - Final NO GROWTH OBTAINED Active Medications Albuterol Sulfate (Ventolin 0.083% Nebulizer Soln -) 1 amp NEB Q4H PRN PRN Reason: SHORT OF BREATH/WHEEZING Albuterol/Ipratropium (Duoneb -) 1 amp NEB QIDR [facility] Last Admin: 02/12/17 17:16 Dose: 1 amp Apixaban (Eliquis -) 5 mg PO BID [facility] Last Admin: 02/12/17 10:17 Dose: 5 mg Atorvastatin Calcium (Lipitor -) 10 mg PO HS [facility] Last Admin: 02/11/17 21:12 Dose: 10 mg Chlorhexidine Gluconate (Hibiclens For Decolonization -) 1 applic TP HS [facility] Last Admin: 02/11/17 21:13 Dose: Not Given Aztreonam (Azactam (Restricted To Id) -) 10 mls @ 120 mls/hr IVPUSH Q8H-IV [facility] Last Admin: 02/12/17 17:37 Dose: 120 mls/hr Insulin Aspart (Novolog Vial Sliding Scale -) 1 vial SQ ACHS [facility] PRN Reason: Protocol Last Admin: 02/12/17 17:37 Dose: 8 units Insulin Detemir (Levemir Vial) 10 units SQ BID [facility] Last Admin: 02/12/17 10:18 Dose: 10 units Methylprednisolone Sodium Succinate (Solu-Medrol -) 40 mg IVPUSH BID [facility] Last Admin: 02/12/17 10:18 Dose: 40 mg Montelukast Sodium (Singulair -) 10 mg PO HS [facility] Last Admin: 02/11/17 21:04 Dose: 10 mg Polyethylene Glycol (Miralax (For Daily Use) -) 17 gm PO DAILY [facility] Last Admin: 02/12/17 10:41 Dose: Not Given Pregabalin (Lyrica -) 75 mg PO BID [facility] Last Admin: 02/12/17 10:17 Dose: 75 mg Ranitidine HCl (Zantac -) 150 mg PO BID [facility] Last Admin: 02/12/17 10:18 Dose: 150 mg Senna (Senna -) 1 tab PO DAILY [facility] Last Admin: 02/12/17 10:18 Dose: 1 tab 62 y/o female [place] resident with PMH HTN, pHTN, Cardiac and Pulmonary Sarcoid, hfpef, hx VT s/p ICD, DM, Lupus, hx DVT ( apixaban),hep C, GERD, chronic back pain ( s/p revision and s/p morphine pump 2012), COPD, O2 dependent 5lpm, who was transferred to ER due to increased lethargy over last 2 days, per family patient less responsive yesterday am and transfer ordered. Septic shock requiring intubation and pressors started in ER Currently in ICU. She has remained extubated and hemodynamically stable, more alert and comfortable today. awake and alert comfortable on 3 L n/c appreciate ID follow up / pulmonary follow up will continue abx/nebs/steroids/ meds Assmt # s/p septic shock ICU care / pressors / rspiratory support hemodynamically stable now on telemetry unit # s/p respiratory failure - Intubated / ICU /extubated # PNA -- abx per ID --14 days # Sarcoid -- continue steroid Pulmonary .. pHTN O2 dependent keep O2 > 90% Cardiac >> ICD # COPD nebulizer / steroids/ O2 # DVT on A/C # DM Inc FS also made worse due to Medrol increase Levemir # HTN controlled # HpEF no evidence of CHF # depression started remeron 02/13 Problem List - Problems (1) Septic shock Code(s): A41.9 - SEPSIS, UNSPECIFIED ORGANISM R65.21 - SEVERE SEPSIS WITH SEPTIC SHOCK (2) Respiratory failure Code(s): J96.90 - RESPIRATORY FAILURE, UNSP, UNSP W HYPOXIA OR HYPERCAPNIA (3) SHERRI (acute kidney injury) Code(s): N17.9 - ACUTE KIDNEY FAILURE, UNSPECIFIED (4) Hypotension Code(s): I95.9 - HYPOTENSION, UNSPECIFIED (5) Hypercarbia Code(s): R06.89 - OTHER ABNORMALITIES OF BREATHING (6) Hypoxia Code(s): R09.02 - HYPOXEMIA (7) Pneumonia Code(s): J18.9 - PNEUMONIA, UNSPECIFIED ORGANISM Qualifiers: Pneumonia type: due to unspecified organism Laterality: bilateral Lung location: unspecified part of lung Qualified Code(s): J18.9 - Pneumonia, unspecified organism; J18.9 - Pneumonia, unspecified organism (8) CHF (congestive heart failure) Code(s): I50.9 - HEART FAILURE, UNSPECIFIED Qualifiers: Congestive heart failure type: unspecified congestive heart failure type Congestive heart failure chronicity: acute on chronic Qualified Code(s ): I50.9 - Heart failure, unspecified; I50.9 - Heart failure, unspecified; I50.9 - Heart failure, unspecified; I50.9 - Heart failure, unspecified (9) COPD (chronic obstructive pulmonary disease) Code(s): J44.9 - CHRONIC OBSTRUCTIVE PULMONARY DISEASE, UNSPECIFIED Qualifiers : COPD type: COPD with acute exacerbation Qualified Code(s): J44.1 - Chronic obstructive pulmonary disease with (acute) exacerbation; J44.1 - Chronic obstructive pulmonary disease with (acute) exacerbation; J44.1 - Chronic obstructive pulmonary disease with (acute) exacerbation; J44.1 - Chronic obstructive pulmonary disease with (acute) exacerbation (10) Chronic low back pain Code(s): M54.5 - LOW BACK PAIN G89.29 - OTHER CHRONIC PAIN (11) ICD (implantable cardioverter-defibrillator), dual, in situ Code(s): Z95.810 - PRESENCE OF AUTOMATIC (IMPLANTABLE) CARDIAC DEFIBRILLATOR (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
[2017-02-14] MEDS: ATORVASTATIN CA 10 MG TABLET (FP) PO SCH (21:33)
[2017-02-14] MEDS: MONTELUKAST NA 10 MG TABLET PO SCH (21:33)
[2017-02-14] MEDS: MIRTAZAPINE 15 MG TABLET (FP) PO SCH (21:33)
[2017-02-14] MEDS: CHLORHEXIDINE GLUCONATE 4% CLEANSER FOR DECOLONIZATION TP SCH (21:40)
[2017-02-15] MEDS: AZTREONAM IVPUSH SCH ×3 (01:19→18:01)
[2017-02-15] MEDS: ALBUTEROL SO4 2.5/IPRATROPIUM 0.5 INH SOL 3 ML VIAL.NEB. NEB SCH ×2 (06:20→11:15)
[2017-02-15] MEDS: INSULIN SLIDING SCALE (NOVOLOG) 1 VIAL SQ SCH ×4 (06:30→21:14)
[2017-02-15] MEDS: INSULIN DETEMIR 100 UNITS/ML MDV SQ SCH ×2 (06:34→21:16)
[2017-02-15 07:39] LABS: MCH 25.7 pg (25.7-33.7); MCHC 31.3 g/dl (32.0-36.0); MEAN PLT VOLUME 7.8 fl (7.5-11.1); PLATELET COUNT 386 K/MM3 (134-434); RDW 21.4 % (11.6-15.6); WHITE BLOOD COUNT 11.1 K/mm3 (4.0-10.0)
[2017-02-15 07:54] LABS: ANION GAP 11 (8-16); CALCIUM 8.7 mg/dL (8.5-10.1); CO2 27 mmol/L (21-32); CREATININE 0.9 mg/dL (0.55-1.02); MAGNESIUM 1.6 mg/dL (1.8-2.4)
[2017-02-15 07:55] LABS: GLUCOSE,RANDOM 474 mg/dL (74-106)
[2017-02-15] MEDS ORDERED: PT OWN MED DRAWER 7, Y5N ONE ×2 (09:08→18:15)
[2017-02-15] MEDS: APIXABAN 5 MG TABLET PO SCH ×2 (09:52→21:18)
[2017-02-15] MEDS: PREGABALIN 75 MG CAPSULE PO SCH ×2 (09:52→21:12)
[2017-02-15] MEDS: methylPREDNISolone NA SUCC 40 MG/1 ML VIAL IVPUSH SCH ×2 (09:52→21:17)
[2017-02-15] MEDS: RANITIDINE HCL 150 MG TABLET (FP) PO SCH ×2 (09:52→21:12)
[2017-02-15] MEDS: POLYETHYLENE GLYCOL 3350 119 GM BTL PO SCH (09:53)
[2017-02-15] MEDS: SENNOSIDES 8.6MG TABLET (FP) PO SCH (09:53)
--- NOTE | 2017-02-15 11:25 | PN ---
Progress Note, Physician History of Present Illness: PULMONARY ALERT,FEELING BETTER,LESS DYSPNEIC,O2 SAT 95% ON NASAL O2 - Current Medication List Current Medications: Active Medications Albuterol Sulfate (Ventolin 0.083% Nebulizer Soln -) 1 amp NEB Q4H PRN PRN Reason: SHORT OF BREATH/WHEEZING Albuterol/Ipratropium (Duoneb -) 1 amp NEB QIDR [facility] Last Admin: 02/15/17 11:15 Dose: 1 amp Apixaban (Eliquis -) 5 mg PO BID [facility] Last Admin: 02/15/17 09:52 Dose: 5 mg Atorvastatin Calcium (Lipitor -) 10 mg PO HS [facility] Last Admin: 02/14/17 21:33 Dose: 10 mg Chlorhexidine Gluconate (Hibiclens For Decolonization -) 1 applic TP [facility] Last Admin: 02/14/17 21:40 Dose: Not Given Aztreonam (Azactam (Restricted To Id) -) 10 mls @ 120 mls/hr IVPUSH Q8H-IV [facility] Last Admin: 02/15/17 09:52 Dose: 120 mls/hr Insulin Aspart (Novolog Vial Sliding Scale -) 1 vial SQ ACHS [facility] PRN Reason: Protocol Last Admin: 02/15/17 06:30 Dose: 10 units Insulin Detemir (Levemir Vial) 20 units SQ BID@0700,2200 [facility] Methylprednisolone Sodium Succinate (Solu-Medrol -) 40 mg IVPUSH BID [facility] Last Admin: 02/15/17 09:52 Dose: 40 mg Mirtazapine (Remeron -) 15 mg PO [facility] Last Admin: 02/14/17 21:33 Dose: Not Given Montelukast Sodium (Singulair -) 10 mg PO [facility] Last Admin: 02/14/17 21:33 Dose: 10 mg Polyethylene Glycol (Miralax (For Daily Use) -) 17 gm PO DAILY [facility] Last Admin: 02/15/17 09:53 Dose: Not Given Pregabalin (Lyrica -) 75 mg PO BID [facility] Last Admin: 02/15/17 09:52 Dose: 75 mg Ranitidine HCl (Zantac -) 150 mg PO BID [facility] Last Admin: 02/15/17 09:52 Dose: 150 mg Senna (Senna -) 1 tab PO DAILY [facility] Last Admin: 02/15/17 09:53 Dose: 1 tab - Objective Vital Signs: Vital Signs Temperature 97.9 F 02/15/17 10:00 Pulse Rate 106 H 02/15/17 11:14 Respiratory Rate 20 02/15/17 10:00 Blood Pressure 156/99 02/15/17 10:00 O2 Sat by Pulse Oximetry (%) 98 02/15/17 11:14 Constitutional: Yes: Well Nourished, Calm Eyes: Yes: WNL HENT: Yes: WNL Neck: Yes: WNL Cardiovascular: Yes: Regular Rate and Rhythm, S1, S2 Respiratory: Yes: Rales (BILATERAL CRACKLES) Gastrointestinal: Yes: Normal Bowel Sounds, Soft Extremities: Yes: WNL Edema: No Labs: CBC, BMP 02/15/17 05:18 02/15/17 05:18 INR, PTT INR 1.25 (0.82-1.09) H 02/06/17 13:21 - ....Imaging Chest X-ray: Report Reviewed, Image Reviewed Problem List - Problems (1) SHERRI (acute kidney injury) Code(s): N17.9 - ACUTE KIDNEY FAILURE, UNSPECIFIED (2) Gram-negative bacteremia Code(s): R78.81 - BACTEREMIA (3) Hypercarbia Code(s): R06.89 - OTHER ABNORMALITIES OF BREATHING (4) Hypotension Code(s): I95.9 - HYPOTENSION, UNSPECIFIED (5) Hypoxia Code(s): R09.02 - HYPOXEMIA (6) Respiratory failure Code(s): J96.90 - RESPIRATORY FAILURE, UNSP, UNSP W HYPOXIA OR HYPERCAPNIA (7) Septic shock Code(s): A41.9 - SEPSIS, UNSPECIFIED ORGANISM R65.21 - SEVERE SEPSIS WITH SEPTIC SHOCK (8) CHF (congestive heart failure) Code(s): I50.9 - HEART FAILURE, UNSPECIFIED Qualifiers: Congestive heart failure type: unspecified congestive heart failure type Congestive heart failure chronicity: acute on chronic Qualified Code(s ): I50.9 - Heart failure, unspecified; I50.9 - Heart failure, unspecified; I50.9 - Heart failure, unspecified; I50.9 - Heart failure, unspecified (9) COPD exacerbation Code(s): J44.1 - CHRONIC OBSTRUCTIVE PULMONARY DISEASE W (ACUTE) EXACERBATION (10) ICD (implantable cardioverter-defibrillator), dual, in situ Code(s): Z95.810 - PRESENCE OF AUTOMATIC (IMPLANTABLE) CARDIAC DEFIBRILLATOR (11) Lung infiltrate Code(s): R91.8 - OTHER NONSPECIFIC ABNORMAL FINDING OF LUNG FIELD (12) Pneumonia Code(s): J18.9 - PNEUMONIA, UNSPECIFIED ORGANISM Qualifiers: Pneumonia type: due to unspecified organism Laterality: bilateral Lung location: unspecified part of lung Qualified Code(s): J18.9 - Pneumonia, unspecified organism; J18.9 - Pneumonia, unspecified organism (13) SOB (shortness of breath) Code(s): R06.02 - SHORTNESS OF BREATH (14) Sarcoidosis Code(s): D86.9 - SARCOIDOSIS, UNSPECIFIED Assessment/Plan A/P Acute on Chronic Hypoxic Respiratory Failure improving Pneumonia Sarcoidosis COPD Septic Shock improved Pulmonary HTN h/o ICD h/o DVT - antibiotics - lasix as needed - medrol - inhaled bronchodilators - O2 to keep SpO2 >90% - PO as tolerated - anticoagulation DR EUBANKS
[2017-02-15] MEDS ORDERED: INSULIN (NOVOLOG) ASPART 100 UNITS/ML 10ML VIAL ONE (20:40)
[2017-02-15] MEDS: MONTELUKAST NA 10 MG TABLET PO SCH (21:12)
[2017-02-15] MEDS: ATORVASTATIN CA 10 MG TABLET (FP) PO SCH (21:12)
[2017-02-15] MEDS: MIRTAZAPINE 15 MG TABLET (FP) PO SCH (21:14)
[2017-02-15] MEDS: CHLORHEXIDINE GLUCONATE 4% CLEANSER FOR DECOLONIZATION TP SCH (21:15)
--- NOTE | 2017-02-15 23:12 | PN ---
Progress Note (short form) - Note Progress Note: patient seen and examined in telemetry states feeling better today was able to sleep well last night O2 NC 3 lpm with sats 95% using Bipap nightly will d/c telemetry Vital Signs Period Temp Pulse Resp BP Sys/Londono Pulse Ox Last 24 Hr 97.7 F-98.3 F 78-104 18-20 95-128/60-83 94-100 neck supple heart irregular lungs exp wheezing on right / mild scattered rhonchi abd soft non tender ext no edema / no calf tenderness + decubiti satage II 02/12/17 06:50 02/12/17 06:50 CBC, BMP 02/13/17 06:30 02/13/17 06:30 CBC, BMP 02/14/17 06:00 02/14/17 06:00 CBC, BMP 02/15/17 05:18 02/15/17 05:18 continues with elevated FS levemir inc to 20 units BID 02/15 Microbiology 02/12/17 11:50 Blood - Peripheral Venous Blood Culture - Preliminary NO GROWTH OBTAINED AFTER 72 HOURS, INCUBATION TO CONTINUE FOR 2 DAYS. 02/12/17 11:45 Blood - Peripheral Venous Blood Culture - Preliminary NO GROWTH OBTAINED AFTER 72 HOURS, INCUBATION TO CONTINUE FOR 2 DAYS. 02/06/17 14:30 Blood - Peripheral Venous Blood Culture - Final NO GROWTH AFTER 5 DAYS INCUBATION 02/06/17 14:30 Blood - Peripheral Venous Blood Culture - Final Klebsiella Oxytoca 02/07/17 05:45 Nasopharyngeal Swab Respiratory Virus (PCR) - Final 02/06/17 10:20 Sputum - Endotrachea Suction/Ventilator Gram Stain - Final 02/06/17 10:20 Sputum - Endotrachea Suction/Ventilator Sputum Culture - Final NORMAL RESPIRATORY MARTHA 02/07/17 13:57 Urine For Antigen Detection Legionella Antigen - Final 02/07/17 13:57 Urine For Antigen Detection Streptococcus pneumoniae Antigen (M - Final 02/07/17 12:10 Nasopharyngeal Swab Influenza Types A,B Antigen (SANGITA) - Final 02/07/17 12:10 Nasopharyngeal Swab - Final 02/06/17 14:30 Urine - Urine Clean Catch Urine Culture - Final NO GROWTH OBTAINED Active Medications Apixaban (Eliquis -) 5 mg PO BID [facility] Last Admin: 02/15/17 21:18 Dose: 5 mg Atorvastatin Calcium (Lipitor -) 10 mg PO HS [facility] Last Admin: 02/15/17 21:12 Dose: 10 mg Chlorhexidine Gluconate (Hibiclens For Decolonization -) 1 applic TP [facility] Last Admin: 02/15/17 21:15 Dose: Not Given Aztreonam (Azactam (Restricted To Id) -) 10 mls @ 120 mls/hr IVPUSH Q8H-IV [facility] Last Admin: 02/15/17 18:01 Dose: 120 mls/hr Insulin Aspart (Novolog Vial Sliding Scale -) 1 vial SQ ACHS [facility] PRN Reason: Protocol Last Admin: 02/15/17 21:14 Dose: 6 units Insulin Detemir (Levemir Vial) 20 units SQ BID@0700,2200 [facility] Last Admin: 02/15/17 21:16 Dose: 20 units Methylprednisolone Sodium Succinate (Solu-Medrol -) 30 mg IVPUSH BID [facility] Last Admin: 02/15/17 21:17 Dose: 30 mg Mirtazapine (Remeron -) 15 mg PO [facility] Last Admin: 02/15/17 21:14 Dose: Not Given Montelukast Sodium (Singulair -) 10 mg PO [facility] Last Admin: 02/15/17 21:12 Dose: 10 mg Polyethylene Glycol (Miralax (For Daily Use) -) 17 gm PO DAILY [facility] Last Admin: 02/15/17 09:53 Dose: Not Given Pregabalin (Lyrica -) 75 mg PO BID [facility] Last Admin: 02/15/17 21:12 Dose: 75 mg Ranitidine HCl (Zantac -) 150 mg PO BID [facility] Last Admin: 02/15/17 21:12 Dose: 150 mg Senna (Senna -) 1 tab PO DAILY [facility] Last Admin: 02/15/17 09:53 Dose: 1 tab 62 y/o female [place] resident with PMH HTN, pHTN, Cardiac and Pulmonary Sarcoid, hfpef, hx VT s/p ICD, DM, Lupus, hx DVT ( apixaban),hep C, GERD, chronic back pain ( s/p revision and s/p morphine pump 2012), COPD, O2 dependent 5lpm, who was transferred to ER due to increased lethargy over last 2 days, per family patient less responsive yesterday am and transfer ordered. Septic shock requiring intubation and pressors started in ER Currently in ICU. She has remained extubated and hemodynamically stable, more alert and comfortable today. awake and alert comfortable on 3 L n/c Assmt # s/p septic shock ICU care / pressors / rspiratory support hemodynamically stable now on telemetry unit will d/c telemetry today # s/p respiratory failure - Intubated / ICU /extubated Bipap nightly # PNA -- abx per ID --14 days due to multiple allergies will need 14 days of IV # Sarcoid -- continue steroid Pulmonary .. pHTN O2 dependent keep O2 > 90% Cardiac s/p ICD # COPD nebulizer / steroids/ O2 # DVT on A/C # DM Inc FS also made worse due to Medrol increase Levemir # HTN controlled # HpEF no evidence of CHF # depression started remeron 02/13 Problem List - Problems (1) Septic shock Code(s): A41.9 - SEPSIS, UNSPECIFIED ORGANISM R65.21 - SEVERE SEPSIS WITH SEPTIC SHOCK (2) Respiratory failure Code(s): J96.90 - RESPIRATORY FAILURE, UNSP, UNSP W HYPOXIA OR HYPERCAPNIA (3) SHERRI (acute kidney injury) Code(s): N17.9 - ACUTE KIDNEY FAILURE, UNSPECIFIED (4) Hypotension Code(s): I95.9 - HYPOTENSION, UNSPECIFIED (5) Hypercarbia Code(s): R06.89 - OTHER ABNORMALITIES OF BREATHING (6) Hypoxia Code(s): R09.02 - HYPOXEMIA (7) Pneumonia Code(s): J18.9 - PNEUMONIA, UNSPECIFIED ORGANISM Qualifiers: Pneumonia type: due to unspecified organism Laterality: bilateral Lung location: unspecified part of lung Qualified Code(s): J18.9 - Pneumonia, unspecified organism; J18.9 - Pneumonia, unspecified organism (8) CHF (congestive heart failure) Code(s): I50.9 - HEART FAILURE, UNSPECIFIED Qualifiers: Congestive heart failure type: unspecified congestive heart failure type Congestive heart failure chronicity: acute on chronic Qualified Code(s ): I50.9 - Heart failure, unspecified; I50.9 - Heart failure, unspecified; I50.9 - Heart failure, unspecified; I50.9 - Heart failure, unspecified (9) COPD (chronic obstructive pulmonary disease) Code(s): J44.9 - CHRONIC OBSTRUCTIVE PULMONARY DISEASE, UNSPECIFIED Qualifiers : COPD type: COPD with acute exacerbation Qualified Code(s): J44.1 - Chronic obstructive pulmonary disease with (acute) exacerbation; J44.1 - Chronic obstructive pulmonary disease with (acute) exacerbation; J44.1 - Chronic obstructive pulmonary disease with (acute) exacerbation; J44.1 - Chronic obstructive pulmonary disease with (acute) exacerbation (10) Chronic low back pain Code(s): M54.5 - LOW BACK PAIN G89.29 - OTHER CHRONIC PAIN (11) ICD (implantable cardioverter-defibrillator), dual, in situ Code(s): Z95.810 - PRESENCE OF AUTOMATIC (IMPLANTABLE) CARDIAC DEFIBRILLATOR (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
[2017-02-16] MEDS: AZTREONAM IVPUSH SCH ×3 (01:08→18:38)
[2017-02-16] MEDS: INSULIN DETEMIR 100 UNITS/ML MDV SQ SCH ×2 (06:45→21:52)
[2017-02-16] MEDS: INSULIN SLIDING SCALE (NOVOLOG) 1 VIAL SQ SCH ×4 (06:47→21:46)
[2017-02-16] MEDS ORDERED: INSULIN (NOVOLOG) ASPART 100 UNITS/ML 10ML VIAL ONE ×2 (06:50→12:18)
[2017-02-16 07:38] LABS: MCH 26.3 pg (25.7-33.7); MCHC 32.1 g/dl (32.0-36.0); MEAN CELL VOLUME 81.7 fl (80-96); MEAN PLT VOLUME 7.8 fl (7.5-11.1); PLATELET COUNT 417 K/MM3 (134-434); WHITE BLOOD COUNT 11.5 K/mm3 (4.0-10.0)
[2017-02-16 07:43] LABS: ANION GAP 9 (8-16); CALCIUM 8.7 mg/dL (8.5-10.1); CO2 29 mmol/L (21-32); CREATININE 0.6 mg/dL (0.55-1.02); GLUCOSE,RANDOM 263 mg/dL (74-106)
[2017-02-16] MEDS: POLYETHYLENE GLYCOL 3350 119 GM BTL PO SCH (12:21)
[2017-02-16] MEDS: methylPREDNISolone NA SUCC 40 MG/1 ML VIAL IVPUSH SCH ×2 (12:22→21:40)
[2017-02-16] MEDS: APIXABAN 5 MG TABLET PO SCH ×2 (12:26→21:39)
[2017-02-16] MEDS: SENNOSIDES 8.6MG TABLET (FP) PO SCH (12:26)
[2017-02-16] MEDS: PREGABALIN 75 MG CAPSULE PO SCH ×2 (12:26→21:40)
[2017-02-16] MEDS: RANITIDINE HCL 150 MG TABLET (FP) PO SCH ×2 (12:26→21:40)
--- NOTE | 2017-02-16 12:27 | PN ---
Progress Note (short form) - Note Progress Note: Feels overall better. Less SOB. Used NIPPV overnight. Intake & Output 02/14/17 02/14/17 02/15/17 02/16/17 00:59 23:59 23:59 23:59 Intake Total 500 100 Balance 500 100 Weight 168 lb 3.2 oz 168 lb 3.2 oz Last Vital Signs Temp Pulse Resp BP Pulse Ox 97.7 F 104 H 20 131/83 97 02/16/17 10:28 02/16/17 11:00 02/16/17 10:28 02/16/17 10:28 02/16/17 11:00 Active Medications Apixaban (Eliquis -) 5 mg PO BID [facility] Last Admin: 02/16/17 12:26 Dose: 5 mg Atorvastatin Calcium (Lipitor -) 10 mg PO HS [facility] Last Admin: 02/15/17 21:12 Dose: 10 mg Chlorhexidine Gluconate (Hibiclens For Decolonization -) 1 applic TP [facility] Last Admin: 02/15/17 21:15 Dose: Not Given Aztreonam (Azactam (Restricted To Id) -) 10 mls @ 120 mls/hr IVPUSH Q8H-IV [facility] Last Admin: 02/16/17 12:26 Dose: 120 mls/hr Insulin Aspart (Novolog Vial Sliding Scale -) 1 vial SQ ACHS [facility] PRN Reason: Protocol Last Admin: 02/16/17 12:21 Dose: 6 units Insulin Detemir (Levemir Vial) 20 units SQ BID@0700,2200 [facility] Last Admin: 02/16/17 06:45 Dose: 20 units Methylprednisolone Sodium Succinate (Solu-Medrol -) 30 mg IVPUSH BID [facility] Last Admin: 02/16/17 12:22 Dose: 30 mg Mirtazapine (Remeron -) 15 mg PO [facility] Last Admin: 02/15/17 21:14 Dose: Not Given Montelukast Sodium (Singulair -) 10 mg PO [facility] Last Admin: 02/15/17 21:12 Dose: 10 mg Polyethylene Glycol (Miralax (For Daily Use) -) 17 gm PO DAILY [facility] Last Admin: 02/16/17 12:21 Dose: 17 grams Pregabalin (Lyrica -) 75 mg PO BID [facility] Last Admin: 02/16/17 12:26 Dose: 75 mg Ranitidine HCl (Zantac -) 150 mg PO BID [facility] Last Admin: 02/16/17 12:26 Dose: 150 mg Senna (Senna -) 1 tab PO DAILY [facility] Last Admin: 02/16/17 12:26 Dose: 1 tab Constitutional: Yes: NAD Eyes: Yes: WNL HENT: Yes: WNL Neck: Yes: WNL Cardiovascular: Yes: Regular Rate and Rhythm, S1, S2 Respiratory: Yes: BILATERAL CRACKLES, no wheeze Gastrointestinal: Yes: Normal Bowel Sounds, Soft Extremities: Yes: WNL Edema: No Labs: Laboratory Results - last 24 hr 02/15/17 02/15/17 02/15/17 12:11 16:26 21:08 WBC RBC Hgb Hct MCV MCH MCHC RDW Plt Count MPV Sodium Potassium Chloride Carbon Dioxide Anion Gap BUN Creatinine POC Glucometer 159 313 280 Random Glucose Calcium 02/16/17 02/16/17 02/16/17 05:46 06:00 06:00 WBC 11.5 H RBC 3.92 Hgb 10.3 L Hct 32.1 L MCV 81.7 MCH 26.3 MCHC 32.1 RDW 22.0 H Plt Count 417 MPV 7.8 Sodium 138 Potassium 4.6 Chloride 100 Carbon Dioxide 29 Anion Gap 9 BUN 31 H Creatinine 0.6 D POC Glucometer 245 Random Glucose 263 H D Calcium 8.7 Problem List - Problems (1) SHERRI (acute kidney injury) Code(s): N17.9 - ACUTE KIDNEY FAILURE, UNSPECIFIED (2) Gram-negative bacteremia Code(s): R78.81 - BACTEREMIA (3) Hypercarbia Code(s): R06.89 - OTHER ABNORMALITIES OF BREATHING (4) Hypotension Code(s): I95.9 - HYPOTENSION, UNSPECIFIED (5) Hypoxia Code(s): R09.02 - HYPOXEMIA (6) Respiratory failure Code(s): J96.90 - RESPIRATORY FAILURE, UNSP, UNSP W HYPOXIA OR HYPERCAPNIA (7) Septic shock Code(s): A41.9 - SEPSIS, UNSPECIFIED ORGANISM R65.21 - SEVERE SEPSIS WITH SEPTIC SHOCK (8) CHF (congestive heart failure) Code(s): I50.9 - HEART FAILURE, UNSPECIFIED Qualifiers: Congestive heart failure type: unspecified congestive heart failure type Congestive heart failure chronicity: acute on chronic Qualified Code(s ): I50.9 - Heart failure, unspecified; I50.9 - Heart failure, unspecified; I50.9 - Heart failure, unspecified; I50.9 - Heart failure, unspecified (9) COPD exacerbation Code(s): J44.1 - CHRONIC OBSTRUCTIVE PULMONARY DISEASE W (ACUTE) EXACERBATION (10) ICD (implantable cardioverter-defibrillator), dual, in situ Code(s): Z95.810 - PRESENCE OF AUTOMATIC (IMPLANTABLE) CARDIAC DEFIBRILLATOR (11) Lung infiltrate Code(s): R91.8 - OTHER NONSPECIFIC ABNORMAL FINDING OF LUNG FIELD (12) Pneumonia Code(s): J18.9 - PNEUMONIA, UNSPECIFIED ORGANISM Qualifiers: Pneumonia type: due to unspecified organism Laterality: bilateral Lung location: unspecified part of lung Qualified Code(s): J18.9 - Pneumonia, unspecified organism; J18.9 - Pneumonia, unspecified organism (13) SOB (shortness of breath) Code(s): R06.02 - SHORTNESS OF BREATH (14) Sarcoidosis Code(s): D86.9 - SARCOIDOSIS, UNSPECIFIED Assessment/Plan A/P Acute on Chronic Hypoxic Respiratory Failure improving Pneumonia Sarcoidosis COPD Septic Shock improved Pulmonary HTN h/o ICD h/o DVT - antibiotics - lasix as needed - medrol at current dose, can likely taper in AM - inhaled bronchodilators - O2 to keep SpO2 >90% - PO as tolerated - AC Dr Rubio
[2017-02-16] MEDS: ATORVASTATIN CA 10 MG TABLET (FP) PO SCH (21:39)
[2017-02-16] MEDS: MIRTAZAPINE 15 MG TABLET (FP) PO SCH (21:40)
[2017-02-16] MEDS: MONTELUKAST NA 10 MG TABLET PO SCH (21:41)
[2017-02-17] MEDS: CHLORHEXIDINE GLUCONATE 4% CLEANSER FOR DECOLONIZATION TP SCH ×2 (00:03→23:06)
--- NOTE | 2017-02-17 01:25 | PN ---
Progress Note (short form) - Note Progress Note: patient seen and examined in room states feeling better today "breathing better " seems less depressed O2 NC 3 lpm with sats 95% using Bipap nightly Vital Signs Period Temp Pulse Resp BP Sys/Londono Pulse Ox Last 24 Hr 97.7 F-98.3 F 78-104 18-20 95-128/60-83 94-100 neck supple heart irregular lungs exp wheezing on right / mild scattered rhonchi abd soft non tender ext no edema / no calf tenderness + decubiti satage II 02/15/17 05:18 02/15/17 05:18 CBC, BMP 02/16/17 06:00 02/16/17 06:00 continues with elevated FS levemir inc to 20 units BID 02/15 Microbiology 02/12/17 11:50 Blood - Peripheral Venous Blood Culture - Preliminary NO GROWTH OBTAINED AFTER 96 HOURS, INCUBATION TO CONTINUE FOR 1 DAYS. 02/12/17 11:45 Blood - Peripheral Venous Blood Culture - Preliminary NO GROWTH OBTAINED AFTER 96 HOURS, INCUBATION TO CONTINUE FOR 1 DAYS. 02/06/17 14:30 Blood - Peripheral Venous Blood Culture - Final NO GROWTH AFTER 5 DAYS INCUBATION 02/06/17 14:30 Blood - Peripheral Venous Blood Culture - Final Klebsiella Oxytoca 02/07/17 05:45 Nasopharyngeal Swab Respiratory Virus (PCR) - Final 02/06/17 10:20 Sputum - Endotrachea Suction/Ventilator Gram Stain - Final 02/06/17 10:20 Sputum - Endotrachea Suction/Ventilator Sputum Culture - Final NORMAL RESPIRATORY MARTHA 02/07/17 13:57 Urine For Antigen Detection Legionella Antigen - Final 02/07/17 13:57 Urine For Antigen Detection Streptococcus pneumoniae Antigen (M - Final 02/07/17 12:10 Nasopharyngeal Swab Influenza Types A,B Antigen (SANGITA) - Final 02/07/17 12:10 Nasopharyngeal Swab - Final 02/06/17 14:30 Urine - Urine Clean Catch Urine Culture - Final NO GROWTH OBTAINED Active Medications Apixaban (Eliquis -) 5 mg PO BID [facility] Last Admin: 02/15/17 21:18 Dose: 5 mg Atorvastatin Calcium (Lipitor -) 10 mg PO HS [facility] Last Admin: 02/15/17 21:12 Dose: 10 mg Chlorhexidine Gluconate (Hibiclens For Decolonization -) 1 applic TP HS [facility] Last Admin: 02/15/17 21:15 Dose: Not Given Aztreonam (Azactam (Restricted To Id) -) 10 mls @ 120 mls/hr IVPUSH Q8H-IV [facility] Last Admin: 02/15/17 18:01 Dose: 120 mls/hr Insulin Aspart (Novolog Vial Sliding Scale -) 1 vial SQ ACHS [facility] PRN Reason: Protocol Last Admin: 02/15/17 21:14 Dose: 6 units Insulin Detemir (Levemir Vial) 20 units SQ BID@0700,2200 [facility] Last Admin: 02/15/17 21:16 Dose: 20 units Methylprednisolone Sodium Succinate (Solu-Medrol -) 30 mg IVPUSH BID [facility] Last Admin: 02/15/17 21:17 Dose: 30 mg Mirtazapine (Remeron -) 15 mg PO HS [facility] Last Admin: 02/15/17 21:14 Dose: Not Given Montelukast Sodium (Singulair -) 10 mg PO HS [facility] Last Admin: 02/15/17 21:12 Dose: 10 mg Polyethylene Glycol (Miralax (For Daily Use) -) 17 gm PO DAILY [facility] Last Admin: 02/15/17 09:53 Dose: Not Given Pregabalin (Lyrica -) 75 mg PO BID [facility] Last Admin: 02/15/17 21:12 Dose: 75 mg Ranitidine HCl (Zantac -) 150 mg PO BID [facility] Last Admin: 02/15/17 21:12 Dose: 150 mg Senna (Senna -) 1 tab PO DAILY [facility] Last Admin: 02/15/17 09:53 Dose: 1 tab 62 y/o [place] resident with PMH HTN, pHTN, Cardiac and Pulmonary Sarcoid, hfpef, hx VT s/p ICD, DM, Lupus, hx DVT ( apixaban),hep C, GERD, chronic back pain ( s/p revision and s/p morphine pump 2012), COPD, O2 dependent 5lpm, who was transferred to ER due to increased lethargy over last 2 days, per family patient less responsive yesterday am and transfer ordered. Septic shock requiring intubation and pressors started in ER Currently in ICU. She has remained extubated and hemodynamically stable, more alert and comfortable today. awake and alert comfortable on 3 L n/c Assmt # s/p septic shock ICU care / pressors / rspiratory support hemodynamically stable # s/p respiratory failure - acute on chronic Intubated / ICU /extubated Bipap nightly # PNA -- abx per ID --14 days due to multiple allergies will need 14 days of IV # Sarcoid -- continue steroid taper per Pulmonary Pulmonary .. pHTN O2 dependent keep O2 > 90% Cardiac s/p ICD # COPD nebulizer / steroids/ O2 # DVT on A/C # DM Inc FS also made worse due to Medrol increase Levemir # HTN controlled # HpEF no evidence of CHF # depression started remeron 02/13 Problem List - Problems (1) Septic shock Code(s): A41.9 - SEPSIS, UNSPECIFIED ORGANISM R65.21 - SEVERE SEPSIS WITH SEPTIC SHOCK (2) Respiratory failure Code(s): J96.90 - RESPIRATORY FAILURE, UNSP, UNSP W HYPOXIA OR HYPERCAPNIA (3) SHERRI (acute kidney injury) Code(s): N17.9 - ACUTE KIDNEY FAILURE, UNSPECIFIED (4) Hypotension Code(s): I95.9 - HYPOTENSION, UNSPECIFIED (5) Hypercarbia Code(s): R06.89 - OTHER ABNORMALITIES OF BREATHING (6) Hypoxia Code(s): R09.02 - HYPOXEMIA (7) Pneumonia Code(s): J18.9 - PNEUMONIA, UNSPECIFIED ORGANISM Qualifiers: Pneumonia type: due to unspecified organism Laterality: bilateral Lung location: unspecified part of lung Qualified Code(s): J18.9 - Pneumonia, unspecified organism; J18.9 - Pneumonia, unspecified organism (8) CHF (congestive heart failure) Code(s): I50.9 - HEART FAILURE, UNSPECIFIED Qualifiers: Congestive heart failure type: unspecified congestive heart failure type Congestive heart failure chronicity: acute on chronic Qualified Code(s ): I50.9 - Heart failure, unspecified; I50.9 - Heart failure, unspecified; I50.9 - Heart failure, unspecified; I50.9 - Heart failure, unspecified (9) COPD (chronic obstructive pulmonary disease) Code(s): J44.9 - CHRONIC OBSTRUCTIVE PULMONARY DISEASE, UNSPECIFIED Qualifiers : COPD type: COPD with acute exacerbation Qualified Code(s): J44.1 - Chronic obstructive pulmonary disease with (acute) exacerbation; J44.1 - Chronic obstructive pulmonary disease with (acute) exacerbation; J44.1 - Chronic obstructive pulmonary disease with (acute) exacerbation; J44.1 - Chronic obstructive pulmonary disease with (acute) exacerbation (10) Chronic low back pain Code(s): M54.5 - LOW BACK PAIN G89.29 - OTHER CHRONIC PAIN (11) ICD (implantable cardioverter-defibrillator), dual, in situ Code(s): Z95.810 - PRESENCE OF AUTOMATIC (IMPLANTABLE) CARDIAC DEFIBRILLATOR (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
[2017-02-17] MEDS ORDERED: PT OWN MED DRAWER 7, Y5N ONE ×5 (01:30→22:58)
[2017-02-17] MEDS: AZTREONAM IVPUSH SCH ×3 (02:03→17:28)
[2017-02-17] MEDS ORDERED: INSULIN (NOVOLOG) ASPART 100 UNITS/ML 10ML VIAL ONE ×2 (06:53→07:44)
[2017-02-17] MEDS: INSULIN SLIDING SCALE (NOVOLOG) 1 VIAL SQ SCH ×4 (07:46→23:05)
[2017-02-17] MEDS: SENNOSIDES 8.6MG TABLET (FP) PO SCH (10:01)
[2017-02-17] MEDS: RANITIDINE HCL 150 MG TABLET (FP) PO SCH ×2 (10:01→23:04)
[2017-02-17] MEDS: APIXABAN 5 MG TABLET PO SCH ×2 (10:02→23:05)
[2017-02-17] MEDS: methylPREDNISolone NA SUCC 40 MG/1 ML VIAL IVPUSH SCH (10:02)
[2017-02-17] MEDS: POLYETHYLENE GLYCOL 3350 119 GM BTL PO SCH (10:02)
--- NOTE | 2017-02-17 14:53 | PN ---
Progress Note (short form) - Note Progress Note: PULMONARY KNOWN BY ME FROM PREVIOUS CONSULTATIONS OOB TO CHAIR FEELS TIGHT/WANTS "ASTHMA TREATMENT" VSS/AFEBRILE ANICTERIC/RIGHT IJ BILATERAL POSTERIOR CRACKLES S1S2 BS+ OBESE 1+ EDEMA B/L ANKLES LABS/MEDS/NOTES/IMAGES/MICRO REVIEWED Acute on Chronic Hypoxic Respiratory Failure improving Pneumonia/bilateral diffuse interstitial infiltrates Sarcoidosis COPD Septic Shock improved Pulmonary HTN h/o ICD h/o DVT - antibiotics - lasix as needed - medrol changed to prednisone - inhaled bronchodilators - O2 to keep SpO2 >90% - PO as tolerated - AC/glycemic control Yousif DENISE MD
[2017-02-17] MEDS: predniSONE 20 MG TABLET (UD) PO SCH (15:02)
--- NOTE | 2017-02-17 18:35 | CONSULT ---
Consult - text type - Consultation Consultation Note: Ophthalmology consult 62 year old woman c/o blurry vision for 2-3 days, s/p cataract extraction OU about [address] Devine vision, near, no correction OD 20/100-, OS 20/50- P 3/3--> 3+/3+, no APD EOM full OU PLE: LLL flat OU S/C no injection OU K clear A/C formed OU I postsurgical OU lens PC IOL OU FT soft OU direct ophthalmoscopy - sharp edges of optic nerve visualized OU, vessels appear WNL OU Impression Pseudophakia OU - no acute etiology of blurred vision. Pt advised to follow up with Dr Devine upon discharge (she states that she has not had a full exam in about 2 years)
[2017-02-17] MEDS: INSULIN DETEMIR 100 UNITS/ML MDV SQ SCH (23:03)
[2017-02-17] MEDS: ATORVASTATIN CA 10 MG TABLET (FP) PO SCH (23:04)
[2017-02-17] MEDS: MONTELUKAST NA 10 MG TABLET PO SCH (23:04)
[2017-02-17] MEDS: PREGABALIN 75 MG CAPSULE PO SCH (23:04)
[2017-02-17] MEDS: MIRTAZAPINE 15 MG TABLET (FP) PO SCH (23:05)
--- NOTE | 2017-02-18 00:57 | PN ---
Progress Note (short form) - Note Progress Note: patient seen and examined in room earlyam states feeling better seems less depressed O2 NC 3 lpm with sats 95% using Bipap nightly Vital Signs Period Temp Pulse Resp BP Sys/Londono Pulse Ox Last 24 Hr 97.7 F-98.3 F 78-104 18-20 95-128/60-83 94-100 neck supple heart irregular lungs + scattered exp wheezing bilat abd soft non tender ext no edema / no calf tenderness + decubiti satage II CBC, BMP 02/16/17 06:00 02/16/17 06:00 continues with elevated FS levemir inc to 20 units BID 02/15 Microbiology 02/12/17 11:50 Blood - Peripheral Venous Blood Culture - Preliminary NO GROWTH OBTAINED AFTER 96 HOURS, INCUBATION TO CONTINUE FOR 1 DAYS. 02/12/17 11:45 Blood - Peripheral Venous Blood Culture - Preliminary NO GROWTH OBTAINED AFTER 96 HOURS, INCUBATION TO CONTINUE FOR 1 DAYS. 02/06/17 14:30 Blood - Peripheral Venous Blood Culture - Final NO GROWTH AFTER 5 DAYS INCUBATION 02/06/17 14:30 Blood - Peripheral Venous Blood Culture - Final Klebsiella Oxytoca 02/07/17 05:45 Nasopharyngeal Swab Respiratory Virus (PCR) - Final 02/06/17 10:20 Sputum - Endotrachea Suction/Ventilator Gram Stain - Final 02/06/17 10:20 Sputum - Endotrachea Suction/Ventilator Sputum Culture - Final NORMAL RESPIRATORY MARTHA 02/07/17 13:57 Urine For Antigen Detection Legionella Antigen - Final 02/07/17 13:57 Urine For Antigen Detection Streptococcus pneumoniae Antigen (M - Final 02/07/17 12:10 Nasopharyngeal Swab Influenza Types A,B Antigen (SANGITA) - Final 02/07/17 12:10 Nasopharyngeal Swab - Final 02/06/17 14:30 Urine - Urine Clean Catch Urine Culture - Final NO GROWTH OBTAINED Active Medications Apixaban (Eliquis -) 5 mg PO BID [facility] Last Admin: 02/15/17 21:18 Dose: 5 mg Atorvastatin Calcium (Lipitor -) 10 mg PO HS [facility] Last Admin: 02/15/17 21:12 Dose: 10 mg Chlorhexidine Gluconate (Hibiclens For Decolonization -) 1 applic TP HS [facility] Last Admin: 02/15/17 21:15 Dose: Not Given Aztreonam (Azactam (Restricted To Id) -) 10 mls @ 120 mls/hr IVPUSH Q8H-IV [facility] Last Admin: 02/15/17 18:01 Dose: 120 mls/hr Insulin Aspart (Novolog Vial Sliding Scale -) 1 vial SQ ACHS [facility] PRN Reason: Protocol Last Admin: 02/15/17 21:14 Dose: 6 units Insulin Detemir (Levemir Vial) 20 units SQ BID@0700,2200 [facility] Last Admin: 02/15/17 21:16 Dose: 20 units Methylprednisolone Sodium Succinate (Solu-Medrol -) 30 mg IVPUSH BID [facility] Last Admin: 02/15/17 21:17 Dose: 30 mg Mirtazapine (Remeron -) 15 mg PO HS [facility] Last Admin: 02/15/17 21:14 Dose: Not Given Montelukast Sodium (Singulair -) 10 mg PO HS [facility] Last Admin: 02/15/17 21:12 Dose: 10 mg Polyethylene Glycol (Miralax (For Daily Use) -) 17 gm PO DAILY [facility] Last Admin: 02/15/17 09:53 Dose: Not Given Pregabalin (Lyrica -) 75 mg PO BID [facility] Last Admin: 02/15/17 21:12 Dose: 75 mg Ranitidine HCl (Zantac -) 150 mg PO BID [facility] Last Admin: 02/15/17 21:12 Dose: 150 mg Senna (Senna -) 1 tab PO DAILY [facility] Last Admin: 02/15/17 09:53 Dose: 1 tab 62 y/o female [place] resident with PMH HTN, pHTN, Cardiac and Pulmonary Sarcoid, hfpef, hx VT s/p ICD, DM, Lupus, hx DVT ( apixaban),hep C, GERD, chronic back pain ( s/p revision and s/p morphine pump 2012), COPD, O2 dependent 5lpm, who was transferred to ER due to increased lethargy over last 2 days, per family patient less responsive yesterday am and transfer ordered. Septic shock requiring intubation and pressors started in ER Currently in ICU. She has remained extubated and hemodynamically stable, more alert and comfortable today. awake and alert comfortable on 3 L n/c Assmt # s/p septic shock ICU care / pressors / rspiratory support hemodynamically stable # s/p respiratory failure - acute on chronic Intubated / ICU /extubated Bipap nightly # PNA -- abx per ID --14 days due to multiple allergies will need 14 days of IV # Sarcoid -- continue steroid taper per Pulmonary change to PO in am Pulmonary .. pHTN O2 dependent keep O2 > 90% Cardiac s/p ICD # COPD nebulizer / steroids inhaled and PO / O2 # DVT on A/C # DM Inc FS also made worse due to Medrol increased Levemir diet education # HTN controlled # HpEF no evidence of CHF # depression started remeron 02/13 Problem List - Problems (1) CHF (congestive heart failure) Code(s): I50.9 - HEART FAILURE, UNSPECIFIED Qualifiers: Congestive heart failure type: unspecified congestive heart failure type Congestive heart failure chronicity: acute on chronic Qualified Code(s): I50.9 - Heart failure, unspecified (2) Obstructive sleep apnea Code(s): G47.33 - OBSTRUCTIVE SLEEP APNEA (ADULT) (PEDIATRIC) (3) Chronic low back pain Code(s): M54.5 - LOW BACK PAIN; G89.29 - OTHER CHRONIC PAIN (4) ICD (implantable cardioverter-defibrillator), dual, in situ Code(s): Z95.810 - PRESENCE OF AUTOMATIC (IMPLANTABLE) CARDIAC DEFIBRILLATOR (5) Ventricular tachycardia Code(s): I47.2 - VENTRICULAR TACHYCARDIA (6) Sarcoidosis of lung Code(s): D86.0 - SARCOIDOSIS OF LUNG (7) COPD (chronic obstructive pulmonary disease) Code(s): J44.9 - CHRONIC OBSTRUCTIVE PULMONARY DISEASE, UNSPECIFIED Qualifiers: COPD type: COPD with acute exacerbation Qualified Code(s): J44.1 - Chronic obstructive pulmonary disease with (acute) exacerbation (8) Sarcoid myocarditis Code(s): 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 (9) Diastolic CHF Code(s): I50.30 - UNSPECIFIED DIASTOLIC (CONGESTIVE) HEART FAILURE (10) IDDM (insulin dependent diabetes mellitus) Code(s): E11.9 - TYPE 2 DIABETES MELLITUS WITHOUT COMPLICATIONS; Z79.4 - HALFWAY (CURRENT) USE OF INSULIN (11) DVT prophylaxis Code(s): [id number] - (12) Pneumonia Code(s): J18.9 - PNEUMONIA, UNSPECIFIED ORGANISM Qualifiers: Pneumonia type: due to unspecified organism Laterality: bilateral Lung location: unspecified part of lung Qualified Code(s): J18.9 - Pneumonia, unspecified organism (13) SHERRI (acute kidney injury) Code(s): N17.9 - ACUTE KIDNEY FAILURE, UNSPECIFIED (14) Hypercarbia Code(s): R06.89 - OTHER ABNORMALITIES OF BREATHING (15) Hypoxia Code(s): R09.02 - HYPOXEMIA (16) Respiratory failure Code(s): J96.90 - RESPIRATORY FAILURE, UNSP, UNSP W HYPOXIA OR HYPERCAPNIA (17) Hypotension Code(s): I95.9 - HYPOTENSION, UNSPECIFIED (18) Septic shock Code(s): A41.9 - SEPSIS, UNSPECIFIED ORGANISM; R65.21 - SEVERE SEPSIS WITH SEPTIC SHOCK
[2017-02-18] MEDS ORDERED: PT OWN MED DRAWER 7, Y5N ONE ×2 (03:05→10:18)
[2017-02-18] MEDS ORDERED: AZTREONAM 2 GM/10 ML SYRINGE (RESTRICTED TO ID) IVPUSH ONE (04:30)
[2017-02-18] MEDS: INSULIN DETEMIR 100 UNITS/ML MDV SQ SCH ×2 (06:38→21:23)
[2017-02-18] MEDS: INSULIN SLIDING SCALE (NOVOLOG) 1 VIAL SQ SCH ×4 (06:39→21:26)
[2017-02-18] MEDS ORDERED: INSULIN (NOVOLOG) ASPART 100 UNITS/ML 10ML VIAL ONE (08:01)
[2017-02-18 08:28] LABS: MCH 26.7 pg (25.7-33.7); MCHC 32.5 g/dl (32.0-36.0); MEAN CELL VOLUME 82.3 fl (80-96); MEAN PLT VOLUME 7.4 fl (7.5-11.1); PLATELET COUNT 378 K/MM3 (134-434); RDW 21.9 % (11.6-15.6); WHITE BLOOD COUNT 11.9 K/mm3 (4.0-10.0)
[2017-02-18 09:25] LABS: ANION GAP 11 (8-16); CALCIUM 8.5 mg/dL (8.5-10.1); CO2 26 mmol/L (21-32); CREATININE 0.6 mg/dL (0.55-1.02); GLUCOSE,RANDOM 232 mg/dL (74-106); MAGNESIUM 1.5 mg/dL (1.8-2.4)
[2017-02-18] MEDS: predniSONE 20 MG TABLET (UD) PO SCH (10:25)
[2017-02-18] MEDS: PREGABALIN 75 MG CAPSULE PO SCH ×2 (10:25→21:25)
[2017-02-18] MEDS: SENNOSIDES 8.6MG TABLET (FP) PO SCH (10:25)
[2017-02-18] MEDS: RANITIDINE HCL 150 MG TABLET (FP) PO SCH ×2 (10:25→21:25)
[2017-02-18] MEDS: APIXABAN 5 MG TABLET PO SCH ×2 (10:26→21:24)
[2017-02-18] MEDS: POLYETHYLENE GLYCOL 3350 119 GM BTL PO SCH (10:26)
[2017-02-18] MEDS: AZTREONAM 2 GRAM SYRINGE 2 GM/10 ML DISP.SYRIN IVPUSH SCH ×2 (10:27→17:00)
--- NOTE | 2017-02-18 11:14 | PN ---
Progress Note (short form) - Note Progress Note: Feels overall better. Less SOB. Used NIPPV overnight. Intake & Output 02/15/17 02/16/17 02/17/17 02/18/17 23:59 23:59 23:59 23:59 Intake Total 500 1180 700 Balance 500 1180 700 Weight 168 lb 3.2 oz 168 lb 3.2 oz 168 lb 8 oz Last Vital Signs Temp Pulse Resp BP Pulse Ox 98.5 F 78 19 127/91 98 02/18/17 09:00 02/18/17 09:56 02/18/17 09:00 02/18/17 09:00 02/18/17 09:56 Active Medications Apixaban (Eliquis -) 5 mg PO BID [facility] Last Admin: 02/18/17 10:26 Dose: 5 mg Atorvastatin Calcium (Lipitor -) 10 mg PO HS [facility] Last Admin: 02/17/17 23:04 Dose: 10 mg Chlorhexidine Gluconate (Hibiclens For Decolonization -) 1 applic TP [facility] Last Admin: 02/17/17 23:06 Dose: Not Given Aztreonam (Azactam (Restricted To Id) -) 2 gm in 10 mls @ 120 mls/hr IVPUSH Q8H -IV [facility] PRN Reason: Protocol Last Admin: 02/18/17 10:27 Dose: 120 mls/hr Insulin Aspart (Novolog Vial Sliding Scale -) 1 vial SQ ACHS [facility] PRN Reason: Protocol Last Admin: 02/18/17 06:39 Dose: 8 units Insulin Detemir (Levemir Vial) 20 units SQ BID@0700,2200 [facility] Last Admin: 02/18/17 06:38 Dose: 20 units Mirtazapine (Remeron -) 15 mg PO HS [facility] Last Admin: 02/17/17 23:05 Dose: Not Given Montelukast Sodium (Singulair -) 10 mg PO HS [facility] Last Admin: 02/17/17 23:04 Dose: 10 mg Polyethylene Glycol (Miralax (For Daily Use) -) 17 gm PO DAILY [facility] Last Admin: 02/18/17 10:26 Dose: Not Given Prednisone (Deltasone -) 40 mg PO DAILY [facility] Last Admin: 02/18/17 10:25 Dose: 40 mg Pregabalin (Lyrica -) 75 mg PO BID [facility] Last Admin: 02/18/17 10:25 Dose: 75 mg Ranitidine HCl (Zantac -) 150 mg PO BID [facility] Last Admin: 02/18/17 10:25 Dose: 150 mg Senna (Senna -) 1 tab PO DAILY [facility] Last Admin: 02/18/17 10:25 Dose: 1 tab Constitutional: Yes: NAD Eyes: Yes: WNL HENT: Yes: WNL Neck: Yes: WNL Cardiovascular: Yes: Regular Rate and Rhythm, S1, S2 Respiratory: Yes: bibasilar crackles, no wheeze Gastrointestinal: Yes: Normal Bowel Sounds, Soft Extremities: Yes: WNL Edema: No Labs: Laboratory Results - last 24 hr 02/17/17 02/17/17 02/17/17 11:32 16:36 23:01 WBC RBC Hgb Hct MCV MCH MCHC RDW Plt Count MPV Sodium Potassium Chloride Carbon Dioxide Anion Gap BUN Creatinine POC Glucometer 194 274 264 Random Glucose Calcium Magnesium 02/18/17 02/18/17 02/18/17 06:37 08:15 08:15 WBC 11.9 H RBC 3.96 Hgb 10.6 L Hct 32.6 MCV 82.3 MCH 26.7 MCHC 32.5 RDW 21.9 H Plt Count 378 MPV 7.4 L Sodium 141 Potassium 3.6 D Chloride 104 Carbon Dioxide 26 Anion Gap 11 BUN 28 H Creatinine 0.6 POC Glucometer 330 Random Glucose 232 H Calcium 8.5 Magnesium 1.5 L Problem List - Problems (1) SHERRI (acute kidney injury) Code(s): N17.9 - ACUTE KIDNEY FAILURE, UNSPECIFIED (2) Gram-negative bacteremia Code(s): R78.81 - BACTEREMIA (3) Hypercarbia Code(s): R06.89 - OTHER ABNORMALITIES OF BREATHING (4) Hypotension Code(s): I95.9 - HYPOTENSION, UNSPECIFIED (5) Hypoxia Code(s): R09.02 - HYPOXEMIA (6) Respiratory failure Code(s): J96.90 - RESPIRATORY FAILURE, UNSP, UNSP W HYPOXIA OR HYPERCAPNIA (7) Septic shock Code(s): A41.9 - SEPSIS, UNSPECIFIED ORGANISM R65.21 - SEVERE SEPSIS WITH SEPTIC SHOCK (8) CHF (congestive heart failure) Code(s): I50.9 - HEART FAILURE, UNSPECIFIED Qualifiers: Congestive heart failure type: unspecified congestive heart failure type Congestive heart failure chronicity: acute on chronic Qualified Code(s ): I50.9 - Heart failure, unspecified; I50.9 - Heart failure, unspecified; I50.9 - Heart failure, unspecified; I50.9 - Heart failure, unspecified (9) COPD exacerbation Code(s): J44.1 - CHRONIC OBSTRUCTIVE PULMONARY DISEASE W (ACUTE) EXACERBATION (10) ICD (implantable cardioverter-defibrillator), dual, in situ Code(s): Z95.810 - PRESENCE OF AUTOMATIC (IMPLANTABLE) CARDIAC DEFIBRILLATOR (11) Lung infiltrate Code(s): R91.8 - OTHER NONSPECIFIC ABNORMAL FINDING OF LUNG FIELD (12) Pneumonia Code(s): J18.9 - PNEUMONIA, UNSPECIFIED ORGANISM Qualifiers: Pneumonia type: due to unspecified organism Laterality: bilateral Lung location: unspecified part of lung Qualified Code(s): J18.9 - Pneumonia, unspecified organism; J18.9 - Pneumonia, unspecified organism (13) SOB (shortness of breath) Code(s): R06.02 - SHORTNESS OF BREATH (14) Sarcoidosis Code(s): D86.9 - SARCOIDOSIS, UNSPECIFIED Assessment/Plan A/P Acute on Chronic Hypoxic Respiratory Failure improving Pneumonia Sarcoidosis COPD Septic Shock improved Pulmonary HTN h/o ICD h/o DVT - antibiotics - lasix as needed - Prednisone at 40mg OD - inhaled bronchodilators - O2 to keep SpO2 >90% - PO as tolerated - AC Dr Rubio
[2017-02-18] MEDS: MONTELUKAST NA 10 MG TABLET PO SCH (21:25)
[2017-02-18] MEDS: CHLORHEXIDINE GLUCONATE 4% CLEANSER FOR DECOLONIZATION TP SCH (21:25)
[2017-02-18] MEDS: MIRTAZAPINE 15 MG TABLET (FP) PO SCH ×2 (21:25→21:30)
[2017-02-18] MEDS: ATORVASTATIN CA 10 MG TABLET (FP) PO SCH (21:25)
[2017-02-19] MEDS: AZTREONAM 2 GRAM SYRINGE 2 GM/10 ML DISP.SYRIN IVPUSH SCH ×3 (02:31→18:50)
[2017-02-19] MEDS: INSULIN DETEMIR 100 UNITS/ML MDV SQ SCH ×2 (06:40→21:04)
[2017-02-19] MEDS: INSULIN SLIDING SCALE (NOVOLOG) 1 VIAL SQ SCH ×4 (06:40→21:06)
[2017-02-19] MEDS ORDERED: INSULIN (NOVOLOG) ASPART 100 UNITS/ML 10ML VIAL ONE ×2 (06:49→20:41)
[2017-02-19] MEDS ORDERED: PT OWN MED DRAWER 7, Y5N ONE ×2 (09:22→17:14)
[2017-02-19] MEDS ORDERED: ALBUTEROL SO4 2.5/IPRATROPIUM 0.5 INH SOL 3 ML VIAL.NEB. NEB PRN (09:53)
[2017-02-19] MEDS: predniSONE 20 MG TABLET (UD) PO SCH (09:58)
[2017-02-19] MEDS: PREGABALIN 75 MG CAPSULE PO SCH ×2 (09:58→21:05)
[2017-02-19] MEDS: APIXABAN 5 MG TABLET PO SCH ×2 (09:58→21:05)
[2017-02-19] MEDS: SENNOSIDES 8.6MG TABLET (FP) PO SCH (09:58)
[2017-02-19] MEDS: RANITIDINE HCL 150 MG TABLET (FP) PO SCH ×2 (09:58→21:05)
--- NOTE | 2017-02-19 10:01 | PN ---
Progress Note (short form) - Note Progress Note: patient seen and examined in room early am yesterday c/o to RN about several days of blurred vision seen by opthalmology -- appreciate consult maybe related to persistently elevated glucose seems less depressed O2 NC 3 lpm with sats 95% using Bipap nightly Vital Signs Period Temp Pulse Resp BP Sys/Londono Pulse Ox Last 24 Hr 97.7 F-98.3 F 78-104 18-20 95-128/60-83 94-100 neck supple heart irregular lungs + scattered exp wheezing bilat abd soft non tender ext no edema / no calf tenderness + decubiti stage II CBC, BMP 02/16/17 06:00 02/16/17 06:00 continues with elevated FS levemir inc to 20 units BID 02/15 Microbiology 02/12/17 11:50 Blood - Peripheral Venous Blood Culture - Preliminary NO GROWTH OBTAINED AFTER 96 HOURS, INCUBATION TO CONTINUE FOR 1 DAYS. 02/12/17 11:45 Blood - Peripheral Venous Blood Culture - Preliminary NO GROWTH OBTAINED AFTER 96 HOURS, INCUBATION TO CONTINUE FOR 1 DAYS. 02/06/17 14:30 Blood - Peripheral Venous Blood Culture - Final NO GROWTH AFTER 5 DAYS INCUBATION 02/06/17 14:30 Blood - Peripheral Venous Blood Culture - Final Klebsiella Oxytoca 02/07/17 05:45 Nasopharyngeal Swab Respiratory Virus (PCR) - Final 02/06/17 10:20 Sputum - Endotrachea Suction/Ventilator Gram Stain - Final 02/06/17 10:20 Sputum - Endotrachea Suction/Ventilator Sputum Culture - Final NORMAL RESPIRATORY MARTHA 02/07/17 13:57 Urine For Antigen Detection Legionella Antigen - Final 02/07/17 13:57 Urine For Antigen Detection Streptococcus pneumoniae Antigen (M - Final 02/07/17 12:10 Nasopharyngeal Swab Influenza Types A,B Antigen (SANGITA) - Final 02/07/17 12:10 Nasopharyngeal Swab - Final 02/06/17 14:30 Urine - Urine Clean Catch Urine Culture - Final NO GROWTH OBTAINED Active Medications Apixaban (Eliquis -) 5 mg PO BID [facility] Last Admin: 02/15/17 21:18 Dose: 5 mg Atorvastatin Calcium (Lipitor -) 10 mg PO HS [facility] Last Admin: 02/15/17 21:12 Dose: 10 mg Chlorhexidine Gluconate (Hibiclens For Decolonization -) 1 applic TP HS [facility] Last Admin: 02/15/17 21:15 Dose: Not Given Aztreonam (Azactam (Restricted To Id) -) 10 mls @ 120 mls/hr IVPUSH Q8H-IV [facility] Last Admin: 02/15/17 18:01 Dose: 120 mls/hr Insulin Aspart (Novolog Vial Sliding Scale -) 1 vial SQ ACHS [facility] PRN Reason: Protocol Last Admin: 02/15/17 21:14 Dose: 6 units Insulin Detemir (Levemir Vial) 20 units SQ BID@0700,2200 [facility] Last Admin: 02/15/17 21:16 Dose: 20 units Methylprednisolone Sodium Succinate (Solu-Medrol -) 30 mg IVPUSH BID [facility] Last Admin: 02/15/17 21:17 Dose: 30 mg Mirtazapine (Remeron -) 15 mg PO [facility] Last Admin: 02/15/17 21:14 Dose: Not Given Montelukast Sodium (Singulair -) 10 mg PO [facility] Last Admin: 02/15/17 21:12 Dose: 10 mg Polyethylene Glycol (Miralax (For Daily Use) -) 17 gm PO DAILY [facility] Last Admin: 02/15/17 09:53 Dose: Not Given Pregabalin (Lyrica -) 75 mg PO BID [facility] Last Admin: 02/15/17 21:12 Dose: 75 mg Ranitidine HCl (Zantac -) 150 mg PO BID [facility] Last Admin: 02/15/17 21:12 Dose: 150 mg Senna (Senna -) 1 tab PO DAILY [facility] Last Admin: 02/15/17 09:53 Dose: 1 tab 62 y/o female [place] resident with PMH HTN, pHTN, Cardiac and Pulmonary Sarcoid, hfpef, hx VT s/p ICD, DM, Lupus, hx DVT ( apixaban),hep C, GERD, chronic back pain ( s/p revision and s/p morphine pump 2012), COPD, O2 dependent 5lpm, who was transferred to ER due to increased lethargy over last 2 days, per family patient less responsive yesterday am and transfer ordered. Septic shock requiring intubation and pressors started in ER Currently in ICU. She has remained extubated and hemodynamically stable, more alert and comfortable today. awake and alert comfortable on 3 L n/c Assmt # s/p septic shock ICU care / pressors / rspiratory support hemodynamically stable # s/p respiratory failure - acute on chronic Intubated / ICU /extubated Bipap nightly steroids now PO / inhaled steroids/ nebulizer/ O2 / # PNA -- abx per ID --14 days due to multiple allergies will need 14 days of IV Aztreonam discussed with ID # Sarcoid -- continue steroid taper per Pulmonary changed to PO Pulmonary .. pHTN O2 dependent keep O2 > 90% Cardiac s/p ICD # COPD nebulizer / steroids inhaled and PO / O2 # DVT on A/C # DM Inc FS also made worse due to Medrol increased Levemir diet education # HTN controlled # HpEF no evidence of CHF # depression started remeron 02/13 Problem List - Problems (1) CHF (congestive heart failure) Code(s): I50.9 - HEART FAILURE, UNSPECIFIED Qualifiers: Congestive heart failure type: unspecified congestive heart failure type Congestive heart failure chronicity: acute on chronic Qualified Code(s): I50.9 - Heart failure, unspecified (2) Obstructive sleep apnea Code(s): G47.33 - OBSTRUCTIVE SLEEP APNEA (ADULT) (PEDIATRIC) (3) Chronic low back pain Code(s): M54.5 - LOW BACK PAIN; G89.29 - OTHER CHRONIC PAIN (4) ICD (implantable cardioverter-defibrillator), dual, in situ Code(s): Z95.810 - PRESENCE OF AUTOMATIC (IMPLANTABLE) CARDIAC DEFIBRILLATOR (5) Ventricular tachycardia Code(s): I47.2 - VENTRICULAR TACHYCARDIA (6) Sarcoidosis of lung Code(s): D86.0 - SARCOIDOSIS OF LUNG (7) COPD (chronic obstructive pulmonary disease) Code(s): J44.9 - CHRONIC OBSTRUCTIVE PULMONARY DISEASE, UNSPECIFIED Qualifiers: COPD type: COPD with acute exacerbation Qualified Code(s): J44.1 - Chronic obstructive pulmonary disease with (acute) exacerbation (8) Sarcoid myocarditis Code(s): 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 (9) Diastolic CHF Code(s): I50.30 - UNSPECIFIED DIASTOLIC (CONGESTIVE) HEART FAILURE (10) IDDM (insulin dependent diabetes mellitus) Code(s): E11.9 - TYPE 2 DIABETES MELLITUS WITHOUT COMPLICATIONS; Z79.4 - RADIATION CONTROL HEALTH PHYSICIST (CURRENT) USE OF INSULIN (11) DVT prophylaxis Code(s): [id number] - (12) Pneumonia Code(s): J18.9 - PNEUMONIA, UNSPECIFIED ORGANISM Qualifiers: Pneumonia type: due to unspecified organism Laterality: bilateral Lung location: unspecified part of lung Qualified Code(s): J18.9 - Pneumonia, unspecified organism (13) SHERRI (acute kidney injury) Code(s): N17.9 - ACUTE KIDNEY FAILURE, UNSPECIFIED (14) Hypercarbia Code(s): R06.89 - OTHER ABNORMALITIES OF BREATHING (15) Hypoxia Code(s): R09.02 - HYPOXEMIA (16) Respiratory failure Code(s): J96.90 - RESPIRATORY FAILURE, UNSP, UNSP W HYPOXIA OR HYPERCAPNIA (17) Hypotension Code(s): I95.9 - HYPOTENSION, UNSPECIFIED (18) Septic shock Code(s): A41.9 - SEPSIS, UNSPECIFIED ORGANISM; R65.21 - SEVERE SEPSIS WITH SEPTIC SHOCK
[2017-02-19] MEDS: POLYETHYLENE GLYCOL 3350 119 GM BTL PO SCH (10:02)
[2017-02-19] MEDS ORDERED: MAGNESIUM SULF 50% (8.12 MEQ/2 ML-1 GM VIAL) IVPB ONE (10:30)
[2017-02-19] MEDS: ALBUTEROL SO4 2.5/IPRATROPIUM 0.5 INH SOL 3 ML VIAL.NEB. NEB SCH ×4 (10:36→23:06)
--- NOTE | 2017-02-19 13:21 | PN ---
Progress Note (short form) - Note Progress Note: PULMONARY VSS/AFEBRILE ANICTERIC/RIGHT IJ BILATERAL POSTERIOR CRACKLES S1S2 BS+ OBESE 1+ EDEMA B/L ANKLES RIGHT CALF EDEMA WITH TENDERNESS LABS/MEDS/NOTES/IMAGES/MICRO REVIEWED Acute on Chronic Hypoxic Respiratory Failure improving Pneumonia/bilateral diffuse interstitial infiltrates Sarcoidosis COPD Septic Shock improved Pulmonary HTN h/o ICD h/o DVT - check venous duplex left - anticoagulation/antibiotics - lasix as needed - medrol changed to prednisone - inhaled bronchodilators - O2 to keep SpO2 >90% - PO as tolerated - AC/glycemic control Yousif DENISE MD
[2017-02-19] MEDS: MONTELUKAST NA 10 MG TABLET PO SCH (21:05)
[2017-02-19] MEDS: CHLORHEXIDINE GLUCONATE 4% CLEANSER FOR DECOLONIZATION TP SCH (21:05)
[2017-02-19] MEDS: MIRTAZAPINE 15 MG TABLET (FP) PO SCH (21:05)
[2017-02-19] MEDS: ATORVASTATIN CA 10 MG TABLET (FP) PO SCH (21:05)
[2017-02-20] MEDS: AZTREONAM 2 GRAM SYRINGE 2 GM/10 ML DISP.SYRIN IVPUSH SCH ×3 (01:40→17:07)
[2017-02-20] MEDS: INSULIN DETEMIR 100 UNITS/ML MDV SQ SCH ×2 (06:22→21:50)
[2017-02-20] MEDS: INSULIN SLIDING SCALE (NOVOLOG) 1 VIAL SQ SCH ×5 (06:23→21:56)
[2017-02-20] MEDS: ALBUTEROL SO4 2.5/IPRATROPIUM 0.5 INH SOL 3 ML VIAL.NEB. NEB SCH ×3 (06:32→17:22)
[2017-02-20 07:47] LABS: MCHC 32.6 g/dl (32.0-36.0); MEAN CELL VOLUME 82.7 fl (80-96); MEAN PLT VOLUME 7.4 fl (7.5-11.1); PLATELET COUNT 332 K/MM3 (134-434); RDW 21.6 % (11.6-15.6); WHITE BLOOD COUNT 10.9 K/mm3 (4.0-10.0)
[2017-02-20 08:06] LABS: ANION GAP 11 (8-16); CALCIUM 8.2 mg/dL (8.5-10.1); CO2 27 mmol/L (21-32); CREATININE 0.4 mg/dL (0.55-1.02); GLUCOSE,RANDOM 53 mg/dL (74-106); MAGNESIUM 1.7 mg/dL (1.8-2.4)
[2017-02-20] MEDS: PREGABALIN 75 MG CAPSULE PO SCH ×2 (09:11→21:46)
[2017-02-20] MEDS: SENNOSIDES 8.6MG TABLET (FP) PO SCH (09:11)
[2017-02-20] MEDS: RANITIDINE HCL 150 MG TABLET (FP) PO SCH ×2 (09:11→21:45)
[2017-02-20] MEDS: APIXABAN 5 MG TABLET PO SCH ×2 (09:11→21:46)
[2017-02-20] MEDS: predniSONE 20 MG TABLET (UD) PO SCH (09:11)
[2017-02-20] MEDS: POLYETHYLENE GLYCOL 3350 119 GM BTL PO SCH (09:12)
[2017-02-20] MEDS ORDERED: INSULIN (NOVOLOG) ASPART 100 UNITS/ML 10ML VIAL ONE ×2 (11:09→19:41)
--- NOTE | 2017-02-20 12:07 | PN ---
Progress Note (short form) - Note Progress Note: PULMONARY Breathing continues to improve. Less cough, no wheezing. No fevers or chills. Last Vital Signs Temp Pulse Resp BP Pulse Ox 97.8 F 87 20 119/73 98 02/20/17 09:00 02/20/17 11:00 02/20/17 09:00 02/20/17 09:00 02/20/17 11:00 Gen: NAD at rest Heart: tachycardic, regular Lung: bibasilar rales Abd: soft, nontender Ext: no edema CBC, BMP 02/20/17 06:10 02/20/17 06:10 Active Medications Albuterol/Ipratropium (Duoneb -) 1 amp NEB QIDR [facility] Last Admin: 02/20/17 11:01 Dose: 1 amp Albuterol/Ipratropium (Duoneb -) 1 amp NEB Q4H PRN PRN Reason: SHORTNESS OF BREATH Apixaban (Eliquis -) 5 mg PO BID [facility] Last Admin: 02/20/17 09:11 Dose: 5 mg Atorvastatin Calcium (Lipitor -) 10 mg PO [facility] Last Admin: 02/19/17 21:05 Dose: 10 mg Chlorhexidine Gluconate (Hibiclens For Decolonization -) 1 applic TP [facility] Last Admin: 02/19/17 21:05 Dose: Not Given Aztreonam (Azactam (Restricted To Id) -) 2 gm in 10 mls @ 120 mls/hr IVPUSH Q8H -IV [facility] PRN Reason: Protocol Last Admin: 02/20/17 09:11 Dose: 120 mls/hr Insulin Aspart (Novolog Vial Sliding Scale -) 1 vial SQ ACHS [facility] PRN Reason: Protocol Last Admin: 02/20/17 11:12 Dose: Not Given Insulin Detemir (Levemir Vial) 20 units SQ BID@0700,2200 [facility] Last Admin: 02/20/17 06:22 Dose: Not Given Mirtazapine (Remeron -) 15 mg PO [facility] Last Admin: 02/19/17 21:05 Dose: Not Given Montelukast Sodium (Singulair -) 10 mg PO [facility] Last Admin: 02/19/17 21:05 Dose: 10 mg Polyethylene Glycol (Miralax (For Daily Use) -) 17 gm PO DAILY [facility] Last Admin: 02/20/17 09:12 Dose: Not Given Prednisone (Deltasone -) 40 mg PO DAILY [facility] Last Admin: 02/20/17 09:11 Dose: 40 mg Pregabalin (Lyrica -) 75 mg PO BID [facility] Last Admin: 02/20/17 09:11 Dose: 75 mg Ranitidine HCl (Zantac -) 150 mg PO BID [facility] Last Admin: 02/20/17 09:11 Dose: 150 mg Senna (Senna -) 1 tab PO DAILY [facility] Last Admin: 02/20/17 09:11 Dose: 1 tab A/P Acute on Chronic Hypoxic Respiratory Failure improving Pneumonia Sarcoidosis COPD Septic Shock improving Pulmonary HTN h/o ICD h/o DVT - complete antibiotics - lasix as needed - prednisone taper - inhaled bronchodilators - O2 to keep SpO2 >90% - PO as tolerated - continue anticoagulation - establish peripheral IV and d/c central line
--- NOTE | 2017-02-20 12:44 | PN ---
Progress Note (short form) - Note Progress Note: Patient seen and examined in room sitting up O2 in place reports inc swelling to LE in "last days" was SOB yesterday / better this am O2 NC 3 lpm with sats 95% using Bipap nightly Vital Signs Period Temp Pulse Resp BP Sys/Londono Pulse Ox Last 24 Hr 97.7 F-98.4 F 87-99 20-20 119-133/73-86 95-100 Intake & Output 02/17/17 02/18/17 02/19/17 02/20/17 23:59 23:59 23:59 23:59 Intake Total 700 670 500 Output Total 2 Balance 700 670 500 -2 Weight 168 lb 8 oz 170 lb 11.2 oz 170 lb 1.6 oz neck supple heart irregular lungs + scattered exp wheezing bilat abd soft non tender ext +1 edema Left> right / no calf tenderness + decubiti stage II CBC, BMP 02/20/17 06:10 02/20/17 06:10 continues with elevated FS levemir inc to 20 units BID 02/15 Microbiology 02/12/17 11:50 Blood - Peripheral Venous Blood Culture - Preliminary NO GROWTH OBTAINED AFTER 96 HOURS, INCUBATION TO CONTINUE FOR 1 DAYS. 02/12/17 11:45 Blood - Peripheral Venous Blood Culture - Preliminary NO GROWTH OBTAINED AFTER 96 HOURS, INCUBATION TO CONTINUE FOR 1 DAYS. 02/06/17 14:30 Blood - Peripheral Venous Blood Culture - Final NO GROWTH AFTER 5 DAYS INCUBATION 02/06/17 14:30 Blood - Peripheral Venous Blood Culture - Final Klebsiella Oxytoca 02/07/17 05:45 Nasopharyngeal Swab Respiratory Virus (PCR) - Final 02/06/17 10:20 Sputum - Endotrachea Suction/Ventilator Gram Stain - Final 02/06/17 10:20 Sputum - Endotrachea Suction/Ventilator Sputum Culture - Final NORMAL RESPIRATORY MARTHA 02/07/17 13:57 Urine For Antigen Detection Legionella Antigen - Final 02/07/17 13:57 Urine For Antigen Detection Streptococcus pneumoniae Antigen (M - Final 02/07/17 12:10 Nasopharyngeal Swab Influenza Types A,B Antigen (SANGITA) - Final 02/07/17 12:10 Nasopharyngeal Swab - Final 02/06/17 14:30 Urine - Urine Clean Catch Urine Culture - Final NO GROWTH OBTAINED Active Medications Albuterol/Ipratropium (Duoneb -) 1 amp NEB QIDR [facility] Last Admin: 11/11/17 11:01 Dose: 1 amp Albuterol/Ipratropium (Duoneb -) 1 amp NEB Q4H PRN PRN Reason: SHORTNESS OF BREATH Apixaban (Eliquis -) 5 mg PO BID [facility] Last Admin: 02/20/17 09:11 Dose: 5 mg Atorvastatin Calcium (Lipitor -) 10 mg PO HS [facility] Last Admin: 02/19/17 21:05 Dose: 10 mg Chlorhexidine Gluconate (Hibiclens For Decolonization -) 1 applic TP [facility] Last Admin: 02/19/17 21:05 Dose: Not Given Furosemide (Lasix Injection -) 40 mg IVPUSH ONCE ONE Stop: 02/20/17 13:01 Aztreonam (Azactam (Restricted To Id) -) 2 gm in 10 mls @ 120 mls/hr IVPUSH Q8H -IV [facility] PRN Reason: Protocol Last Admin: 02/20/17 09:11 Dose: 120 mls/hr Insulin Aspart (Novolog Vial Sliding Scale -) 1 vial SQ ACHS [facility] PRN Reason: Protocol Last Admin: 02/20/17 11:12 Dose: Not Given Insulin Detemir (Levemir Vial) 20 units SQ BID@0700,2200 [facility] Last Admin: 02/20/17 06:22 Dose: Not Given Magnesium Sulfate (Magnesium Sulfate) 2 gm IVPB ONCE ONE Stop: 02/20/17 13:16 Mirtazapine (Remeron -) 15 mg PO [facility] Last Admin: 02/19/17 21:05 Dose: Not Given Montelukast Sodium (Singulair -) 10 mg PO [facility] Last Admin: 02/19/17 21:05 Dose: 10 mg Polyethylene Glycol (Miralax (For Daily Use) -) 17 gm PO DAILY [facility] Last Admin: 02/20/17 09:12 Dose: Not Given Prednisone (Deltasone -) 40 mg PO DAILY [facility] Last Admin: 02/20/17 09:11 Dose: 40 mg Pregabalin (Lyrica -) 75 mg PO BID [facility] Last Admin: 02/20/17 09:11 Dose: 75 mg Ranitidine HCl (Zantac -) 150 mg PO BID [facility] Last Admin: 02/20/17 09:11 Dose: 150 mg Senna (Senna -) 1 tab PO DAILY [facility] Last Admin: 02/20/17 09:11 Dose: 1 tab 62 y/o female [place] resident with PMH HTN, pHTN, Cardiac and Pulmonary Sarcoid, hfpef, hx VT s/p ICD, DM, Lupus, hx DVT ( apixaban),hep C, GERD, chronic back pain ( s/p revision and s/p morphine pump 2012), COPD, O2 dependent 5lpm, who was transferred to ER due to increased lethargy over last 2 days, per family patient less responsive yesterday am and transfer ordered. Septic shock requiring intubation and pressors started in ER Currently in ICU. She has remained extubated and hemodynamically stable, more alert and comfortable today. awake and alert comfortable on 3 L n/c Assmt # s/p septic shock ICU care / pressors / rspiratory support hemodynamically stable # s/p respiratory failure - acute on chronic Intubated / ICU /extubated Bipap nightly steroids now PO / inhaled steroids/ nebulizer/ O2 / # PNA -- abx per ID --14 days due to multiple allergies will need 14 days of IV Aztreonam discussed with ID # Sarcoid -- continue steroid taper per Pulmonary changed to PO Pulmonary .. pHTN O2 dependent keep O2 > 90% Cardiac s/p ICD # COPD nebulizer / steroids inhaled and PO / O2 # DVT on A/C # DM Inc FS also made worse due to Medrol increased Levemir diet education # HTN controlled # HpEF inc edema mild inc in dyspnea trial of Lasix X1 CXR in am follow weights # depression started remeron 02/13 Problem List - Problems (1) CHF (congestive heart failure) Code(s): I50.9 - HEART FAILURE, UNSPECIFIED Qualifiers: Congestive heart failure type: unspecified congestive heart failure type Congestive heart failure chronicity: acute on chronic Qualified Code(s): I50.9 - Heart failure, unspecified (2) Obstructive sleep apnea Code(s): G47.33 - OBSTRUCTIVE SLEEP APNEA (ADULT) (PEDIATRIC) (3) Chronic low back pain Code(s): M54.5 - LOW BACK PAIN; G89.29 - OTHER CHRONIC PAIN (4) ICD (implantable cardioverter-defibrillator), dual, in situ Code(s): Z95.810 - PRESENCE OF AUTOMATIC (IMPLANTABLE) CARDIAC DEFIBRILLATOR (5) Ventricular tachycardia Code(s): I47.2 - VENTRICULAR TACHYCARDIA (6) Sarcoidosis of lung Code(s): D86.0 - SARCOIDOSIS OF LUNG (7) COPD (chronic obstructive pulmonary disease) Code(s): J44.9 - CHRONIC OBSTRUCTIVE PULMONARY DISEASE, UNSPECIFIED Qualifiers: COPD type: COPD with acute exacerbation Qualified Code(s): J44.1 - Chronic obstructive pulmonary disease with (acute) exacerbation (8) Sarcoid myocarditis Code(s): 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 (9) Diastolic CHF Code(s): I50.30 - UNSPECIFIED DIASTOLIC (CONGESTIVE) HEART FAILURE (10) IDDM (insulin dependent diabetes mellitus) Code(s): E11.9 - TYPE 2 DIABETES MELLITUS WITHOUT COMPLICATIONS; Z79.4 - SALES RECRUITER (CURRENT) USE OF INSULIN (11) DVT prophylaxis Code(s): [id number] - (12) Pneumonia Code(s): J18.9 - PNEUMONIA, UNSPECIFIED ORGANISM Qualifiers: Pneumonia type: due to unspecified organism Laterality: bilateral Lung location: unspecified part of lung Qualified Code(s): J18.9 - Pneumonia, unspecified organism (13) SHERRI (acute kidney injury) Code(s): N17.9 - ACUTE KIDNEY FAILURE, UNSPECIFIED (14) Hypercarbia Code(s): R06.89 - OTHER ABNORMALITIES OF BREATHING (15) Hypoxia Code(s): R09.02 - HYPOXEMIA (16) Respiratory failure Code(s): J96.90 - RESPIRATORY FAILURE, UNSP, UNSP W HYPOXIA OR HYPERCAPNIA (17) Hypotension Code(s): I95.9 - HYPOTENSION, UNSPECIFIED (18) Septic shock Code(s): A41.9 - SEPSIS, UNSPECIFIED ORGANISM; R65.21 - SEVERE SEPSIS WITH SEPTIC SHOCK
--- NOTE | 2017-02-20 12:48 | PN ---
Progress Note (short form) - Note Progress Note: Patient seen and examined in room sitting up O2 in place reporting more dyspnea at rest not desaturating O2 NC 3 lpm with sats 95% using Bipap nightly Vital Signs Period Temp Pulse Resp BP Sys/Londono Pulse Ox Last 24 Hr 97.7 F-98.4 F 87-99 20-20 119-133/73-86 95-100 neck supple no JVD heart irregular lungs + scattered exp wheezing bilat / no rales abd soft non tender ext +1 edema Left> right / no calf tenderness + decubiti stage II continues with elevated FS levemir inc to 20 units BID 02/15 Microbiology 02/12/17 11:50 Blood - Peripheral Venous Blood Culture - Preliminary NO GROWTH OBTAINED AFTER 96 HOURS, INCUBATION TO CONTINUE FOR 1 DAYS. 02/12/17 11:45 Blood - Peripheral Venous Blood Culture - Preliminary NO GROWTH OBTAINED AFTER 96 HOURS, INCUBATION TO CONTINUE FOR 1 DAYS. 02/06/17 14:30 Blood - Peripheral Venous Blood Culture - Final NO GROWTH AFTER 5 DAYS INCUBATION 02/06/17 14:30 Blood - Peripheral Venous Blood Culture - Final Klebsiella Oxytoca 02/07/17 05:45 Nasopharyngeal Swab Respiratory Virus (PCR) - Final 02/06/17 10:20 Sputum - Endotrachea Suction/Ventilator Gram Stain - Final 02/06/17 10:20 Sputum - Endotrachea Suction/Ventilator Sputum Culture - Final NORMAL RESPIRATORY MARTHA 02/07/17 13:57 Urine For Antigen Detection Legionella Antigen - Final 02/07/17 13:57 Urine For Antigen Detection Streptococcus pneumoniae Antigen (M - Final 02/07/17 12:10 Nasopharyngeal Swab Influenza Types A,B Antigen (SANGITA) - Final 02/07/17 12:10 Nasopharyngeal Swab - Final 02/06/17 14:30 Urine - Urine Clean Catch Urine Culture - Final NO GROWTH OBTAINED 62 y/o female [place] resident with PMH HTN, pHTN, Cardiac and Pulmonary Sarcoid, hfpef, hx VT s/p ICD, DM, Lupus, hx DVT ( apixaban),hep C, GERD, chronic back pain ( s/p revision and s/p morphine pump 2012), COPD, O2 dependent 5lpm, who was transferred to ER due to increased lethargy over last 2 days, per family patient less responsive yesterday am and transfer ordered. Septic shock requiring intubation and pressors started in ER Currently in ICU. She has remained extubated and hemodynamically stable, more alert and comfortable today. awake and alert comfortable on 3 L n/c Assmt # s/p septic shock ICU care / pressors / rspiratory support hemodynamically stable # s/p respiratory failure - acute on chronic Intubated / ICU /extubated Bipap nightly steroids now PO / inhaled steroids/ nebulizer/ O2 / # PNA -- abx per ID --14 days due to multiple allergies will need 14 days of IV Aztreonam discussed with ID # Sarcoid -- continue steroid taper per Pulmonary changed to PO Pulmonary .. pHTN O2 dependent keep O2 > 90% Cardiac s/p ICD # COPD nebulizer / steroids inhaled and PO / O2 # DVT on A/C # DM Inc FS recent increase Levemir follow FS diet education # HTN controlled # HFpEF trace edema dyspnea - related to Pulm status vs CHF # depression started remeron 02/13 Problem List - Problems (1) CHF (congestive heart failure) Code(s): I50.9 - HEART FAILURE, UNSPECIFIED Qualifiers: Congestive heart failure type: unspecified congestive heart failure type Congestive heart failure chronicity: acute on chronic Qualified Code(s): I50.9 - Heart failure, unspecified (2) Obstructive sleep apnea Code(s): G47.33 - OBSTRUCTIVE SLEEP APNEA (ADULT) (PEDIATRIC) (3) Chronic low back pain Code(s): M54.5 - LOW BACK PAIN; G89.29 - OTHER CHRONIC PAIN (4) ICD (implantable cardioverter-defibrillator), dual, in situ Code(s): Z95.810 - PRESENCE OF AUTOMATIC (IMPLANTABLE) CARDIAC DEFIBRILLATOR (5) Ventricular tachycardia Code(s): I47.2 - VENTRICULAR TACHYCARDIA (6) Sarcoidosis of lung Code(s): D86.0 - SARCOIDOSIS OF LUNG (7) COPD (chronic obstructive pulmonary disease) Code(s): J44.9 - CHRONIC OBSTRUCTIVE PULMONARY DISEASE, UNSPECIFIED Qualifiers: COPD type: COPD with acute exacerbation Qualified Code(s): J44.1 - Chronic obstructive pulmonary disease with (acute) exacerbation (8) Sarcoid myocarditis Code(s): 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 (9) Diastolic CHF Code(s): I50.30 - UNSPECIFIED DIASTOLIC (CONGESTIVE) HEART FAILURE (10) IDDM (insulin dependent diabetes mellitus) Code(s): E11.9 - TYPE 2 DIABETES MELLITUS WITHOUT COMPLICATIONS; Z79.4 - CUSTODIAL (CURRENT) USE OF INSULIN (11) DVT prophylaxis Code(s): [id number] - (12) Pneumonia Code(s): J18.9 - PNEUMONIA, UNSPECIFIED ORGANISM Qualifiers: Pneumonia type: due to unspecified organism Laterality: bilateral Lung location: unspecified part of lung Qualified Code(s): J18.9 - Pneumonia, unspecified organism (13) SHERRI (acute kidney injury) Code(s): N17.9 - ACUTE KIDNEY FAILURE, UNSPECIFIED (14) Hypercarbia Code(s): R06.89 - OTHER ABNORMALITIES OF BREATHING (15) Hypoxia Code(s): R09.02 - HYPOXEMIA (16) Respiratory failure Code(s): J96.90 - RESPIRATORY FAILURE, UNSP, UNSP W HYPOXIA OR HYPERCAPNIA (17) Hypotension Code(s): I95.9 - HYPOTENSION, UNSPECIFIED (18) Septic shock Code(s): A41.9 - SEPSIS, UNSPECIFIED ORGANISM; R65.21 - SEVERE SEPSIS WITH SEPTIC SHOCK
[2017-02-20] MEDS ORDERED: FUROSEMIDE 40 MG/4 ML INJECTABLE VIAL IVPUSH ONE (13:00)
[2017-02-20] MEDS ORDERED: MAGNESIUM SULF 50% (8.12 MEQ/2 ML-1 GM VIAL) IVPB ONE (13:15)
[2017-02-20] MEDS ORDERED: PT OWN MED DRAWER 7, Y5N ONE ×2 (17:06→19:43)
[2017-02-20] MEDS: ATORVASTATIN CA 10 MG TABLET (FP) PO SCH (21:45)
[2017-02-20] MEDS: MONTELUKAST NA 10 MG TABLET PO SCH (21:45)
[2017-02-20] MEDS: MIRTAZAPINE 15 MG TABLET (FP) PO SCH (21:46)
[2017-02-20] MEDS: CHLORHEXIDINE GLUCONATE 4% CLEANSER FOR DECOLONIZATION TP SCH (21:49)
[2017-02-21] MEDS: ALBUTEROL SO4 2.5/IPRATROPIUM 0.5 INH SOL 3 ML VIAL.NEB. NEB SCH ×5 (00:07→23:06)
[2017-02-21] MEDS: AZTREONAM 2 GRAM SYRINGE 2 GM/10 ML DISP.SYRIN IVPUSH SCH ×3 (01:17→17:11)
[2017-02-21] MEDS: INSULIN SLIDING SCALE (NOVOLOG) 1 VIAL SQ SCH ×4 (06:18→21:10)
[2017-02-21] MEDS: INSULIN DETEMIR 100 UNITS/ML MDV SQ SCH ×2 (06:36→21:11)
[2017-02-21 07:37] LABS: MCH 26.4 pg (25.7-33.7); MCHC 31.8 g/dl (32.0-36.0); MEAN CELL VOLUME 83.1 fl (80-96); MEAN PLT VOLUME 7.4 fl (7.5-11.1); PLATELET COUNT 323 K/MM3 (134-434); RDW 22.3 % (11.6-15.6)
[2017-02-21 08:20] LABS: ANION GAP 11 (8-16); CALCIUM 8.4 mg/dL (8.5-10.1); CO2 28 mmol/L (21-32); CREATININE 0.5 mg/dL (0.55-1.02); GLUCOSE,RANDOM 98 mg/dL (74-106); MAGNESIUM 1.8 mg/dL (1.8-2.4)
[2017-02-21] MEDS ORDERED: PT OWN MED DRAWER 7, Y5N ONE ×2 (09:35→20:28)
[2017-02-21] MEDS: RANITIDINE HCL 150 MG TABLET (FP) PO SCH ×2 (09:39→21:08)
[2017-02-21] MEDS: POLYETHYLENE GLYCOL 3350 119 GM BTL PO SCH (09:39)
[2017-02-21] MEDS: PREGABALIN 75 MG CAPSULE PO SCH ×2 (09:39→21:06)
[2017-02-21] MEDS: SENNOSIDES 8.6MG TABLET (FP) PO SCH (09:39)
[2017-02-21] MEDS: APIXABAN 5 MG TABLET PO SCH ×2 (09:39→21:09)
[2017-02-21] MEDS: predniSONE 20 MG TABLET (UD) PO SCH (09:39)
[2017-02-21] MEDS ORDERED: INSULIN (NOVOLOG) ASPART 100 UNITS/ML 10ML VIAL ONE ×2 (10:59→20:26)
--- NOTE | 2017-02-21 13:40 | PN ---
Progress Note (short form) - Note Progress Note: PULMONARY Slightly more short of breath today. + cough, wheezing. No fevers or chills. Last Vital Signs Temp Pulse Resp BP Pulse Ox 98.2 F 93 H 20 111/70 99 02/21/17 09:00 02/21/17 09:00 02/21/17 09:00 02/21/17 09:00 02/21/17 11:58 Gen: NAD at rest Heart: tachycardic, regular Lung: bibasilar rales Abd: soft, nontender Ext: + edema CBC, BMP 02/21/17 06:00 02/21/17 06:00 Active Medications Albuterol/Ipratropium (Duoneb -) 1 amp NEB QIDR [facility] Last Admin: 02/21/17 12:20 Dose: 1 amp Albuterol/Ipratropium (Duoneb -) 1 amp NEB Q4H PRN PRN Reason: SHORTNESS OF BREATH Apixaban (Eliquis -) 5 mg PO BID [facility] Last Admin: 02/21/17 09:39 Dose: 5 mg Atorvastatin Calcium (Lipitor -) 10 mg PO [facility] Last Admin: 02/20/17 21:45 Dose: 10 mg Chlorhexidine Gluconate (Hibiclens For Decolonization -) 1 applic TP [facility] Last Admin: 02/20/17 21:49 Dose: Not Given Aztreonam (Azactam (Restricted To Id) -) 2 gm in 10 mls @ 120 mls/hr IVPUSH Q8H -IV [facility] PRN Reason: Protocol Last Admin: 02/21/17 09:39 Dose: 120 mls/hr Insulin Aspart (Novolog Vial Sliding Scale -) 1 vial SQ ACHS [facility] PRN Reason: Protocol Last Admin: 02/21/17 11:14 Dose: 4 units Insulin Detemir (Levemir Vial) 20 units SQ BID@0700,2200 [facility] Last Admin: 02/21/17 06:36 Dose: 20 units Mirtazapine (Remeron -) 15 mg PO [facility] Last Admin: 02/20/17 21:46 Dose: Not Given Montelukast Sodium (Singulair -) 10 mg PO [facility] Last Admin: 02/20/17 21:45 Dose: 10 mg Polyethylene Glycol (Miralax (For Daily Use) -) 17 gm PO DAILY [facility] Last Admin: 02/21/17 09:39 Dose: Not Given Prednisone (Deltasone -) 40 mg PO DAILY [facility] Last Admin: 02/21/17 09:39 Dose: 40 mg Pregabalin (Lyrica -) 75 mg PO BID [facility] Last Admin: 02/21/17 09:39 Dose: 75 mg Ranitidine HCl (Zantac -) 150 mg PO BID [facility] Last Admin: 02/21/17 09:39 Dose: 150 mg Senna (Senna -) 1 tab PO DAILY [facility] Last Admin: 02/21/17 09:39 Dose: 1 tab A/P Acute on Chronic Hypoxic Respiratory Failure improving Pneumonia Sarcoidosis COPD Septic Shock improving Pulmonary HTN h/o ICD h/o DVT - complete antibiotics - will give lasix today - prednisone taper - inhaled bronchodilators - O2 to keep SpO2 >90% - PO as tolerated - continue anticoagulation - establish peripheral IV and d/c central line
[2017-02-21] MEDS ORDERED: FUROSEMIDE 40 MG/4 ML INJECTABLE VIAL IVPUSH ONE (15:00)
[2017-02-21] MEDS: ATORVASTATIN CA 10 MG TABLET (FP) PO SCH (21:06)
[2017-02-21] MEDS: CHLORHEXIDINE GLUCONATE 4% CLEANSER FOR DECOLONIZATION TP SCH (21:06)
[2017-02-21] MEDS: MONTELUKAST NA 10 MG TABLET PO SCH (21:08)
[2017-02-21] MEDS: MIRTAZAPINE 15 MG TABLET (FP) PO SCH (21:09)
--- NOTE | 2017-02-21 21:11 | PN ---
Progress Note (short form) - Note Progress Note: Patient seen and examined in room sitting up O2 in place reporting SOB maybe more than previously ?? O2 NC 3 lpm with sats 95% using Bipap nightly Vital Signs Period Temp Pulse Resp BP Sys/Londono Pulse Ox Last 24 Hr 97.7 F-98.4 F 87-99 20-20 119-133/73-86 95-100 neck supple no JVD heart irregular lungs + scattered exp wheezing bilat / crackles at bases abd soft non tender ext +1 edema Left> right / no calf tenderness + decubiti stage II CBC, BMP 02/21/17 06:00 02/21/17 06:00 continues with elevated FS levemir inc to 20 units BID 02/15 Active Medications Albuterol/Ipratropium (Duoneb -) 1 amp NEB QIDR [facility] Last Admin: 02/21/17 17:04 Dose: 1 amp Albuterol/Ipratropium (Duoneb -) 1 amp NEB Q4H PRN PRN Reason: SHORTNESS OF BREATH Apixaban (Eliquis -) 5 mg PO BID [facility] Last Admin: 02/21/17 09:39 Dose: 5 mg Atorvastatin Calcium (Lipitor -) 10 mg PO HS [facility] Last Admin: 02/20/17 21:45 Dose: 10 mg Chlorhexidine Gluconate (Hibiclens For Decolonization -) 1 applic TP HS [facility] Last Admin: 02/20/17 21:49 Dose: Not Given Aztreonam (Azactam (Restricted To Id) -) 2 gm in 10 mls @ 120 mls/hr IVPUSH Q8H -IV [facility] PRN Reason: Protocol Last Admin: 02/21/17 17:11 Dose: 120 mls/hr Insulin Aspart (Novolog Vial Sliding Scale -) 1 vial SQ ACHS [facility] PRN Reason: Protocol Last Admin: 02/21/17 16:28 Dose: 8 units Insulin Detemir (Levemir Vial) 20 units SQ BID@0700,2200 [facility] Last Admin: 02/21/17 06:36 Dose: 20 units Mirtazapine (Remeron -) 15 mg PO HS [facility] Last Admin: 02/20/17 21:46 Dose: Not Given Montelukast Sodium (Singulair -) 10 mg PO HS [facility] Last Admin: 02/20/17 21:45 Dose: 10 mg Polyethylene Glycol (Miralax (For Daily Use) -) 17 gm PO DAILY [facility] Last Admin: 02/21/17 09:39 Dose: Not Given Prednisone (Deltasone -) 40 mg PO DAILY [facility] Last Admin: 02/21/17 09:39 Dose: 40 mg Pregabalin (Lyrica -) 75 mg PO BID [facility] Last Admin: 02/21/17 09:39 Dose: 75 mg Ranitidine HCl (Zantac -) 150 mg PO BID [facility] Last Admin: 02/21/17 09:39 Dose: 150 mg Senna (Senna -) 1 tab PO DAILY [facility] Last Admin: 02/21/17 09:39 Dose: 1 tab given lasix 40 mg ARABELLA today ordered by pulmonary Microbiology 02/12/17 11:50 Blood - Peripheral Venous Blood Culture - Preliminary NO GROWTH OBTAINED AFTER 96 HOURS, INCUBATION TO CONTINUE FOR 1 DAYS. 02/12/17 11:45 Blood - Peripheral Venous Blood Culture - Preliminary NO GROWTH OBTAINED AFTER 96 HOURS, INCUBATION TO CONTINUE FOR 1 DAYS. 02/06/17 14:30 Blood - Peripheral Venous Blood Culture - Final NO GROWTH AFTER 5 DAYS INCUBATION 02/06/17 14:30 Blood - Peripheral Venous Blood Culture - Final Klebsiella Oxytoca 02/07/17 05:45 Nasopharyngeal Swab Respiratory Virus (PCR) - Final 02/06/17 10:20 Sputum - Endotrachea Suction/Ventilator Gram Stain - Final 02/06/17 10:20 Sputum - Endotrachea Suction/Ventilator Sputum Culture - Final NORMAL RESPIRATORY MARTHA 02/07/17 13:57 Urine For Antigen Detection Legionella Antigen - Final 02/07/17 13:57 Urine For Antigen Detection Streptococcus pneumoniae Antigen (M - Final 02/07/17 12:10 Nasopharyngeal Swab Influenza Types A,B Antigen (SANGITA) - Final 02/07/17 12:10 Nasopharyngeal Swab - Final 02/06/17 14:30 Urine - Urine Clean Catch Urine Culture - Final NO GROWTH OBTAINED 62 y/o female [place] resident with PMH HTN, pHTN, Cardiac and Pulmonary Sarcoid, hfpef, hx VT s/p ICD, DM, Lupus, hx DVT ( apixaban),hep C, GERD, chronic back pain ( s/p revision and s/p morphine pump 2012), COPD, O2 dependent 5lpm, who was transferred to ER due to increased lethargy over last 2 days, per family patient less responsive yesterday am and transfer ordered. Septic shock requiring intubation and pressors started in ER Currently in ICU. She has remained extubated and hemodynamically stable, more alert and comfortable today. awake and alert comfortable on 3 L n/c Assmt # s/p septic shock --resolved ICU care / pressors / rspiratory support now hemodynamically stable # s/p respiratory failure - acute on chronic Intubated / ICU /extubated Bipap nightly steroids now PO / inhaled steroids/ nebulizer/ O2 / # PNA -- abx per ID --14 days due to multiple allergies will need 14 days of IV Aztreonam discussed with ID # Sarcoid -- continue steroid taper per Pulmonary changed to PO Pulmonary .. pHTN O2 dependent keep O2 > 90% Cardiac s/p ICD # COPD nebulizer / steroids inhaled and PO / O2 # DVT on A/C # DM Inc FS recent increase Levemir follow FS diet education # HTN controlled # HFpEF trace edema dyspnea - related to Pulm status vs CHF given lasix 40 02/20 and 02/21 no clinical improvement # depression started remeron 02/13 Problem List - Problems (1) CHF (congestive heart failure) Code(s): I50.9 - HEART FAILURE, UNSPECIFIED Qualifiers: Congestive heart failure type: unspecified congestive heart failure type Congestive heart failure chronicity: acute on chronic Qualified Code(s): I50.9 - Heart failure, unspecified (2) Obstructive sleep apnea Code(s): G47.33 - OBSTRUCTIVE SLEEP APNEA (ADULT) (PEDIATRIC) (3) Chronic low back pain Code(s): M54.5 - LOW BACK PAIN; G89.29 - OTHER CHRONIC PAIN (4) ICD (implantable cardioverter-defibrillator), dual, in situ Code(s): Z95.810 - PRESENCE OF AUTOMATIC (IMPLANTABLE) CARDIAC DEFIBRILLATOR (5) Ventricular tachycardia Code(s): I47.2 - VENTRICULAR TACHYCARDIA (6) Sarcoidosis of lung Code(s): D86.0 - SARCOIDOSIS OF LUNG (7) COPD (chronic obstructive pulmonary disease) Code(s): J44.9 - CHRONIC OBSTRUCTIVE PULMONARY DISEASE, UNSPECIFIED Qualifiers: COPD type: COPD with acute exacerbation Qualified Code(s): J44.1 - Chronic obstructive pulmonary disease with (acute) exacerbation (8) Sarcoid myocarditis Code(s): 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 (9) Diastolic CHF Code(s): I50.30 - UNSPECIFIED DIASTOLIC (CONGESTIVE) HEART FAILURE (10) IDDM (insulin dependent diabetes mellitus) Code(s): E11.9 - TYPE 2 DIABETES MELLITUS WITHOUT COMPLICATIONS; Z79.4 - PRISON (CURRENT) USE OF INSULIN (11) DVT prophylaxis Code(s): [id number] - (12) Pneumonia Code(s): J18.9 - PNEUMONIA, UNSPECIFIED ORGANISM Qualifiers: Pneumonia type: due to unspecified organism Laterality: bilateral Lung location: unspecified part of lung Qualified Code(s): J18.9 - Pneumonia, unspecified organism (13) SHERRI (acute kidney injury) Code(s): N17.9 - ACUTE KIDNEY FAILURE, UNSPECIFIED (14) Hypercarbia Code(s): R06.89 - OTHER ABNORMALITIES OF BREATHING (15) Hypoxia Code(s): R09.02 - HYPOXEMIA (16) Respiratory failure Code(s): J96.90 - RESPIRATORY FAILURE, UNSP, UNSP W HYPOXIA OR HYPERCAPNIA (17) Hypotension Code(s): I95.9 - HYPOTENSION, UNSPECIFIED (18) Septic shock Code(s): A41.9 - SEPSIS, UNSPECIFIED ORGANISM; R65.21 - SEVERE SEPSIS WITH SEPTIC SHOCK
[2017-02-22] MEDS: AZTREONAM 2 GRAM SYRINGE 2 GM/10 ML DISP.SYRIN IVPUSH SCH ×3 (01:16→17:50)
[2017-02-22] MEDS: ALBUTEROL SO4 2.5/IPRATROPIUM 0.5 INH SOL 3 ML VIAL.NEB. NEB SCH ×4 (06:15→23:38)
[2017-02-22] MEDS: INSULIN SLIDING SCALE (NOVOLOG) 1 VIAL SQ SCH ×4 (06:26→21:58)
[2017-02-22] MEDS: INSULIN DETEMIR 100 UNITS/ML MDV SQ SCH ×2 (06:26→21:56)
[2017-02-22] MEDS ORDERED: INSULIN (NOVOLOG) ASPART 100 UNITS/ML 10ML VIAL ONE ×2 (06:42→11:20)
--- NOTE | 2017-02-22 09:21 | PN ---
Progress Note (short form) - Note Progress Note: Patient seen and examined in room c/o abdominal pain started early this am epigastric and RUQ + nausea (known to have gallstones ) O2 NC 3 lpm with sats 95% using Bipap nightly Vital Signs Period Temp Pulse Resp BP Sys/Londono Pulse Ox Last 24 Hr 97.7 F-98.4 F 87-99 20-20 119-133/73-86 95-100 neck supple no JVD heart irregular lungs + scattered exp wheezing bilat / crackles at bases abd tenderness epigastric /right upper soft ? + BS ext +1 edema Left> right / no calf tenderness + decubiti stage II CBC, BMP 02/21/17 06:00 02/21/17 06:00 continues with elevated FS levemir inc to 20 units BID 02/15 Active Medications Albuterol/Ipratropium (Duoneb -) 1 amp NEB QIDR [facility] Last Admin: 02/21/17 17:04 Dose: 1 amp Albuterol/Ipratropium (Duoneb -) 1 amp NEB Q4H PRN PRN Reason: SHORTNESS OF BREATH Apixaban (Eliquis -) 5 mg PO BID [facility] Last Admin: 02/21/17 09:39 Dose: 5 mg Atorvastatin Calcium (Lipitor -) 10 mg PO HS [facility] Last Admin: 02/20/17 21:45 Dose: 10 mg Chlorhexidine Gluconate (Hibiclens For Decolonization -) 1 applic TP HS [facility] Last Admin: 02/20/17 21:49 Dose: Not Given Aztreonam (Azactam (Restricted To Id) -) 2 gm in 10 mls @ 120 mls/hr IVPUSH Q8H -IV [facility] PRN Reason: Protocol Last Admin: 02/21/17 17:11 Dose: 120 mls/hr Insulin Aspart (Novolog Vial Sliding Scale -) 1 vial SQ ACHS [facility] PRN Reason: Protocol Last Admin: 02/21/17 16:28 Dose: 8 units Insulin Detemir (Levemir Vial) 20 units SQ BID@0700,2200 [facility] Last Admin: 02/21/17 06:36 Dose: 20 units Mirtazapine (Remeron -) 15 mg PO HS [facility] Last Admin: 02/20/17 21:46 Dose: Not Given Montelukast Sodium (Singulair -) 10 mg PO HS [facility] Last Admin: 02/20/17 21:45 Dose: 10 mg Polyethylene Glycol (Miralax (For Daily Use) -) 17 gm PO DAILY [facility] Last Admin: 02/21/17 09:39 Dose: Not Given Prednisone (Deltasone -) 40 mg PO DAILY [facility] Last Admin: 02/21/17 09:39 Dose: 40 mg Pregabalin (Lyrica -) 75 mg PO BID [facility] Last Admin: 02/21/17 09:39 Dose: 75 mg Ranitidine HCl (Zantac -) 150 mg PO BID [facility] Last Admin: 02/21/17 09:39 Dose: 150 mg Senna (Senna -) 1 tab PO DAILY [facility] Last Admin: 02/21/17 09:39 Dose: 1 tab given lasix 40 mg X 2 days ordered by pulmonary Microbiology 02/12/17 11:50 Blood - Peripheral Venous Blood Culture - Preliminary NO GROWTH OBTAINED AFTER 96 HOURS, INCUBATION TO CONTINUE FOR 1 DAYS. 02/12/17 11:45 Blood - Peripheral Venous Blood Culture - Preliminary NO GROWTH OBTAINED AFTER 96 HOURS, INCUBATION TO CONTINUE FOR 1 DAYS. 02/06/17 14:30 Blood - Peripheral Venous Blood Culture - Final NO GROWTH AFTER 5 DAYS INCUBATION 02/06/17 14:30 Blood - Peripheral Venous Blood Culture - Final Klebsiella Oxytoca 02/07/17 05:45 Nasopharyngeal Swab Respiratory Virus (PCR) - Final 02/06/17 10:20 Sputum - Endotrachea Suction/Ventilator Gram Stain - Final 02/06/17 10:20 Sputum - Endotrachea Suction/Ventilator Sputum Culture - Final NORMAL RESPIRATORY MARTHA 02/07/17 13:57 Urine For Antigen Detection Legionella Antigen - Final 02/07/17 13:57 Urine For Antigen Detection Streptococcus pneumoniae Antigen (M - Final 02/07/17 12:10 Nasopharyngeal Swab Influenza Types A,B Antigen (SANGITA) - Final 02/07/17 12:10 Nasopharyngeal Swab - Final 02/06/17 14:30 Urine - Urine Clean Catch Urine Culture - Final NO GROWTH OBTAINED 62 y/o female [place] resident with PMH HTN, pHTN, Cardiac and Pulmonary Sarcoid, hfpef, hx [place] s/p ICD, DM, Lupus, hx DVT ( apixaban),hep C, GERD, chronic back pain ( s/p revision and s/p morphine pump 2013), COPD, O2 dependent 5lpm, who was transferred to ER due to increased lethargy over last 2 days, per family patient less responsive day of admission am and transfer to ER ordered. Patient in Septic shock requiring intubation and pressors started in ER -- admitted to ICU Once hemodynamically stable transferred to telemetry --Currently on medical palacios, stable condition Today with c/o abdominal pain which began early this am --associated with nausea / no vomiting /no diaphoresis/ no chest tightness-- has been tolerating PO this am. symptoms not associated with meals ...? 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 pHTN O2 dependent keep O2 > 90% Cardiac s/p ICD # COPD nebulizer / steroids inhaled and PO / O2 # DVT on A/C # DM Inc FS recent increase Levemir follow FS diet education # HTN controlled # HFpEF trace edema dyspnea - related to Pulm status vs CHF given lasix 40 02/20 and 02/21 no clinical improvement # depression started remeron 02/13 # s/p septic shock --resolved ICU care / pressors / rspiratory support now hemodynamically stable Problem List - Problems (1) Abdominal pain Assessment/Plan: new onset pain -- earlier this am + nausea / epigastric / RUQ tenderness ordered u/s of abdomen and CMP also ordered protonix IV BID first dose now discussed with nurse at time of visit Code(s): R10.9 - UNSPECIFIED ABDOMINAL PAIN (2) CHF (congestive heart failure) Code(s): I50.9 - HEART FAILURE, UNSPECIFIED Qualifiers: Congestive heart failure type: unspecified congestive heart failure type Congestive heart failure chronicity: acute on chronic Qualified Code(s): I50.9 - Heart failure, unspecified (3) Obstructive sleep apnea Code(s): G47.33 - OBSTRUCTIVE SLEEP APNEA (ADULT) (PEDIATRIC) (4) Chronic low back pain Code(s): M54.5 - LOW BACK PAIN; G89.29 - OTHER CHRONIC PAIN (5) ICD (implantable cardioverter-defibrillator), dual, in situ Code(s): Z95.810 - PRESENCE OF AUTOMATIC (IMPLANTABLE) CARDIAC DEFIBRILLATOR (6) Ventricular tachycardia Code(s): I47.2 - VENTRICULAR TACHYCARDIA (7) Sarcoidosis of lung Code(s): D86.0 - SARCOIDOSIS OF LUNG (8) COPD (chronic obstructive pulmonary disease) Code(s): J44.9 - CHRONIC OBSTRUCTIVE PULMONARY DISEASE, UNSPECIFIED Qualifiers: COPD type: COPD with acute exacerbation Qualified Code(s): J44.1 - Chronic obstructive pulmonary disease with (acute) exacerbation (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 (10) Diastolic CHF Code(s): I50.30 - UNSPECIFIED DIASTOLIC (CONGESTIVE) HEART FAILURE (11) IDDM (insulin dependent diabetes mellitus) Code(s): E11.9 - TYPE 2 DIABETES MELLITUS WITHOUT COMPLICATIONS; Z79.4 - NURSING HOME (CURRENT) USE OF INSULIN (12) DVT prophylaxis Code(s): [id number] - (13) Pneumonia Code(s): J18.9 - PNEUMONIA, UNSPECIFIED ORGANISM Qualifiers: Pneumonia type: due to unspecified organism Laterality: bilateral Lung location: unspecified part of lung Qualified Code(s): J18.9 - Pneumonia, unspecified organism (14) SHERRI (acute kidney injury) Code(s): N17.9 - ACUTE KIDNEY FAILURE, UNSPECIFIED (15) Hypercarbia Code(s): R06.89 - OTHER ABNORMALITIES OF BREATHING (16) Hypoxia Code(s): R09.02 - HYPOXEMIA (17) Respiratory failure Code(s): J96.90 - RESPIRATORY FAILURE, UNSP, UNSP W HYPOXIA OR HYPERCAPNIA (18) Hypotension Code(s): I95.9 - HYPOTENSION, UNSPECIFIED (19) Septic shock Code(s): A41.9 - SEPSIS, UNSPECIFIED ORGANISM; R65.21 - SEVERE SEPSIS WITH SEPTIC SHOCK
[2017-02-22] MEDS ORDERED: PT OWN MED DRAWER 7, Y5N ONE ×2 (09:48→17:49)
[2017-02-22] MEDS: predniSONE 20 MG TABLET (UD) PO SCH (09:50)
[2017-02-22] MEDS: PREGABALIN 75 MG CAPSULE PO SCH ×2 (09:50→21:52)
[2017-02-22] MEDS: APIXABAN 5 MG TABLET PO SCH ×2 (09:50→21:53)
[2017-02-22] MEDS: RANITIDINE HCL 150 MG TABLET (FP) PO SCH ×2 (09:50→21:53)
[2017-02-22] MEDS: PANTOPRAZOLE SODIUM 40 MG VIAL IVPUSH SCH ×2 (09:50→21:59)
[2017-02-22] MEDS: SENNOSIDES 8.6MG TABLET (FP) PO SCH (09:50)
[2017-02-22] MEDS: POLYETHYLENE GLYCOL 3350 119 GM BTL PO SCH (09:51)
[2017-02-22 10:48] LABS: MCH 26.5 pg (25.7-33.7); MCHC 31.9 g/dl (32.0-36.0); MEAN PLT VOLUME 7.3 fl (7.5-11.1); PLATELET COUNT 300 K/MM3 (134-434); RDW 21.6 % (11.6-15.6); WHITE BLOOD COUNT 10.5 K/mm3 (4.0-10.0)
[2017-02-22 11:11] LABS: ALBUMIN 2.4 g/dl (3.4-5.0); ANION GAP 7 (8-16); CALCIUM 8.4 mg/dL (8.5-10.1); CO2 31 mmol/L (21-32); CREATININE 0.5 mg/dL (0.55-1.02); GLUCOSE,RANDOM 182 mg/dL (74-106); SGOT/AST 13 U/L (15-37); SGPT/ALT 32 U/L (12-78)
[2017-02-22 11:13] LABS: ALK PHOS 97 U/L (45-117); BILIRUBIN,TOTAL 0.4 mg/dL (0.2-1.0); TOT PROT 6.3 g/dl (6.4-8.2)
[2017-02-22 11:15] LABS: TOTAL CELLS COUNTED 100
[2017-02-22 11:16] LABS: MYELOCYTE 1 % (0-2)
--- NOTE | 2017-02-22 16:07 | PN ---
Progress Note, Physician History of Present Illness: pulmonary alert,less dyspneic today - Current Medication List Current Medications: Active Medications Albuterol/Ipratropium (Duoneb -) 1 amp NEB QIDR [facility] Last Admin: 02/22/17 13:00 Dose: 1 amp Albuterol/Ipratropium (Duoneb -) 1 amp NEB Q4H PRN PRN Reason: SHORTNESS OF BREATH Apixaban (Eliquis -) 5 mg PO BID [facility] Last Admin: 02/22/17 09:50 Dose: 5 mg Atorvastatin Calcium (Lipitor -) 10 mg PO HS [facility] Last Admin: 02/21/17 21:06 Dose: 10 mg Chlorhexidine Gluconate (Hibiclens For Decolonization -) 1 applic TP [facility] Last Admin: 02/21/17 21:06 Dose: Not Given Aztreonam (Azactam (Restricted To Id) -) 2 gm in 10 mls @ 120 mls/hr IVPUSH Q8H -IV EY[facility] PRN Reason: Protocol Last Admin: 02/22/17 09:50 Dose: 120 mls/hr Insulin Aspart (Novolog Vial Sliding Scale -) 1 vial SQ ACHS [facility] PRN Reason: Protocol Last Admin: 02/22/17 11:28 Dose: Not Given Insulin Detemir (Levemir Vial) 20 units SQ BID@0700,2200 [facility] Last Admin: 02/22/17 06:26 Dose: 20 units Mirtazapine (Remeron -) 15 mg PO [facility] Last Admin: 02/21/17 21:09 Dose: Not Given Montelukast Sodium (Singulair -) 10 mg PO HS [facility] Last Admin: 02/21/17 21:08 Dose: 10 mg Pantoprazole Sodium (Protonix Iv) 40 mg IVPUSH BID [facility] Last Admin: 02/22/17 09:50 Dose: 40 mg Polyethylene Glycol (Miralax (For Daily Use) -) 17 gm PO DAILY [facility] Last Admin: 02/22/17 09:51 Dose: Not Given Prednisone (Deltasone -) 40 mg PO DAILY [facility] Last Admin: 02/22/17 09:50 Dose: 40 mg Pregabalin (Lyrica -) 75 mg PO BID [facility] Last Admin: 02/22/17 09:50 Dose: 75 mg Ranitidine HCl (Zantac -) 150 mg PO BID [facility] Last Admin: 02/22/17 09:50 Dose: 150 mg Senna (Senna -) 1 tab PO DAILY [facility] Last Admin: 02/22/17 09:50 Dose: 1 tab - Objective Vital Signs: Vital Signs Temperature 98.2 F 02/22/17 14:55 Pulse Rate 101 H 02/22/17 14:55 Respiratory Rate 20 02/22/17 14:55 Blood Pressure 115/67 02/22/17 14:55 O2 Sat by Pulse Oximetry (%) 98 02/22/17 09:00 Constitutional: Yes: Calm, Obese Eyes: Yes: WNL HENT: Yes: WNL Neck: Yes: WNL Cardiovascular: Yes: Regular Rate and Rhythm, S1, S2 Respiratory: Yes: Rales (bilateral crackles) Gastrointestinal: Yes: Normal Bowel Sounds, Soft Extremities: Yes: WNL Edema: Yes Labs: CBC, BMP 02/22/17 10:25 02/22/17 10:25 INR, PTT INR 1.25 (0.82-1.09) H 02/06/17 13:21 Problem List - Problems (1) CHF (congestive heart failure) Code(s): I50.9 - HEART FAILURE, UNSPECIFIED Qualifiers: Congestive heart failure type: unspecified congestive heart failure type Congestive heart failure chronicity: acute on chronic Qualified Code(s): I50.9 - Heart failure, unspecified (2) Sarcoidosis Code(s): D86.9 - SARCOIDOSIS, UNSPECIFIED (3) SOB (shortness of breath) Code(s): R06.02 - SHORTNESS OF BREATH (4) ICD (implantable cardioverter-defibrillator), dual, in situ Code(s): Z95.810 - PRESENCE OF AUTOMATIC (IMPLANTABLE) CARDIAC DEFIBRILLATOR (5) COPD exacerbation Code(s): J44.1 - CHRONIC OBSTRUCTIVE PULMONARY DISEASE W (ACUTE) EXACERBATION (6) Lung infiltrate Code(s): R91.8 - OTHER NONSPECIFIC ABNORMAL FINDING OF LUNG FIELD (7) Pneumonia Code(s): J18.9 - PNEUMONIA, UNSPECIFIED ORGANISM Qualifiers: Pneumonia type: due to unspecified organism Laterality: bilateral Lung location: unspecified part of lung Qualified Code(s): J18.9 - Pneumonia, unspecified organism (8) SHERRI (acute kidney injury) Code(s): N17.9 - ACUTE KIDNEY FAILURE, UNSPECIFIED (9) Hypercarbia Code(s): R06.89 - OTHER ABNORMALITIES OF BREATHING (10) Hypoxia Code(s): R09.02 - HYPOXEMIA (11) Respiratory failure Code(s): J96.90 - RESPIRATORY FAILURE, UNSP, UNSP W HYPOXIA OR HYPERCAPNIA (12) Hypotension Code(s): I95.9 - HYPOTENSION, UNSPECIFIED (13) Septic shock Code(s): A41.9 - SEPSIS, UNSPECIFIED ORGANISM; R65.21 - SEVERE SEPSIS WITH SEPTIC SHOCK (14) Gram-negative bacteremia Code(s): R78.81 - BACTEREMIA Assessment/Plan A/P Acute on Chronic Hypoxic Respiratory Failure improving Pneumonia Sarcoidosis COPD Septic Shock improved Pulmonary HTN h/o ICD h/o DVT - antibiotics - lasix as needed - prednisone - inhaled bronchodilators - O2 to keep SpO2 >90% - PO as tolerated - anticoagulation - pulmonary rehab post discharge DR EUBANKS
[2017-02-22] MEDS: ATORVASTATIN CA 10 MG TABLET (FP) PO SCH (21:52)
[2017-02-22] MEDS: MONTELUKAST NA 10 MG TABLET PO SCH (21:52)
[2017-02-22] MEDS: CHLORHEXIDINE GLUCONATE 4% CLEANSER FOR DECOLONIZATION TP SCH (21:53)
[2017-02-22] MEDS: MIRTAZAPINE 15 MG TABLET (FP) PO SCH (21:59)
[2017-02-23] MEDS: AZTREONAM 2 GRAM SYRINGE 2 GM/10 ML DISP.SYRIN IVPUSH SCH ×2 (01:33→10:45)
[2017-02-23] MEDS: INSULIN DETEMIR 100 UNITS/ML MDV SQ SCH ×2 (06:12→21:45)
[2017-02-23] MEDS: INSULIN SLIDING SCALE (NOVOLOG) 1 VIAL SQ SCH ×4 (06:13→21:47)
[2017-02-23] MEDS: ALBUTEROL SO4 2.5/IPRATROPIUM 0.5 INH SOL 3 ML VIAL.NEB. NEB SCH ×4 (06:31→23:16)
[2017-02-23 08:39] LABS: ALBUMIN 2.5 g/dl (3.4-5.0); ALK PHOS 91 U/L (45-117); ANION GAP 12 (8-16); BILIRUBIN,TOTAL 0.3 mg/dL (0.2-1.0); CALCIUM 8.2 mg/dL (8.5-10.1); CO2 28 mmol/L (21-32); CREATININE 0.5 mg/dL (0.55-1.02); GLUCOSE,RANDOM 167 mg/dL (74-106); SGOT/AST 12 U/L (15-37); SGPT/ALT 31 U/L (12-78); TOT PROT 6.4 g/dl (6.4-8.2)
[2017-02-23] MEDS ORDERED: PT OWN MED DRAWER 7, Y5N ONE (10:21)
[2017-02-23] MEDS: APIXABAN 5 MG TABLET PO SCH ×2 (10:44→21:45)
[2017-02-23] MEDS: predniSONE 20 MG TABLET (UD) PO SCH (10:45)
[2017-02-23] MEDS: PREGABALIN 75 MG CAPSULE PO SCH ×2 (10:46→21:44)
[2017-02-23] MEDS: RANITIDINE HCL 150 MG TABLET (FP) PO SCH ×2 (10:47→21:44)
[2017-02-23] MEDS: PANTOPRAZOLE SODIUM 40 MG VIAL IVPUSH SCH ×2 (10:47→21:48)
[2017-02-23] MEDS: SENNOSIDES 8.6MG TABLET (FP) PO SCH (10:47)
[2017-02-23] MEDS: POLYETHYLENE GLYCOL 3350 119 GM BTL PO SCH (10:48)
--- NOTE | 2017-02-23 11:35 | PN ---
Progress Note (short form) - Note Progress Note: alert breathing unchanged still some midepigastric pain Vital Signs Period Temp Pulse Resp BP Sys/Londono Pulse Ox Last 24 Hr 97.5 F-98.2 F 89-101 20-20 115-137/67-81 95-96 no thrush cor rrrr lungs decreased bs at bases abd soft, +midepigastric tenderness to palpation ext +edema bilat CBC, BMP 02/22/17 10:25 02/23/17 06:00 sono- +gallstones, no ductal dilatation a/p klebsiella bacteremia doing well has completed over 2 weeks of azactam (day 17) , will d/c antibiotics and observe midepigastric abd pain- evaluation per PMD sarcoid- cardiac and pulmonary-per pulmonary multiple antibiotic allergies noted please call back if needed Problem List - Problems (1) Sarcoidosis of lung Code(s): D86.0 - SARCOIDOSIS OF LUNG (2) Pneumonia Code(s): J18.9 - PNEUMONIA, UNSPECIFIED ORGANISM Qualifiers: Pneumonia type: due to unspecified organism Laterality: bilateral Lung location: unspecified part of lung Qualified Code(s): J18.9 - Pneumonia, unspecified organism (3) Respiratory failure Code(s): J96.90 - RESPIRATORY FAILURE, UNSP, UNSP W HYPOXIA OR HYPERCAPNIA (4) Hypotension Code(s): I95.9 - HYPOTENSION, UNSPECIFIED (5) Allergy to multiple antibiotics Code(s): Z88.1 - ALLERGY STATUS TO OTHER ANTIBIOTIC AGENTS STATUS
[2017-02-23] MEDS ORDERED: INSULIN (NOVOLOG) ASPART 100 UNITS/ML 10ML VIAL ONE (11:46)
--- NOTE | 2017-02-23 12:59 | PN ---
Progress Note, Physician History of Present Illness: pulmonary alert,feeling better,less dyspneic - Current Medication List Current Medications: Active Medications Albuterol/Ipratropium (Duoneb -) 1 amp NEB QIDR [facility] Last Admin: 02/23/17 11:27 Dose: 1 amp Albuterol/Ipratropium (Duoneb -) 1 amp NEB Q4H PRN PRN Reason: SHORTNESS OF BREATH Apixaban (Eliquis -) 5 mg PO BID [facility] Last Admin: 02/23/17 10:44 Dose: 5 mg Atorvastatin Calcium (Lipitor -) 10 mg PO HS [facility] Last Admin: 02/22/17 21:52 Dose: 10 mg Chlorhexidine Gluconate (Hibiclens For Decolonization -) 1 applic TP HS [facility] Last Admin: 02/22/17 21:53 Dose: Not Given Insulin Aspart (Novolog Vial Sliding Scale -) 1 vial SQ ACHS [facility] PRN Reason: Protocol Last Admin: 02/23/17 11:54 Dose: 4 units Insulin Detemir (Levemir Vial) 20 units SQ BID@0700,2200 [facility] Last Admin: 02/23/17 06:12 Dose: Not Given Mirtazapine (Remeron -) 15 mg PO HS [facility] Last Admin: 02/22/17 21:59 Dose: Not Given Montelukast Sodium (Singulair -) 10 mg PO HS [facility] Last Admin: 02/22/17 21:52 Dose: 10 mg Pantoprazole Sodium (Protonix Iv) 40 mg IVPUSH BID [facility] Last Admin: 02/23/17 10:47 Dose: 40 mg Polyethylene Glycol (Miralax (For Daily Use) -) 17 gm PO DAILY [facility] Last Admin: 02/23/17 10:48 Dose: Not Given Prednisone (Deltasone -) 40 mg PO DAILY [facility] Last Admin: 02/23/17 10:45 Dose: 40 mg Pregabalin (Lyrica -) 75 mg PO BID [facility] Last Admin: 02/23/17 10:46 Dose: 75 mg Ranitidine HCl (Zantac -) 150 mg PO BID [facility] Last Admin: 02/23/17 10:47 Dose: 150 mg Senna (Senna -) 1 tab PO DAILY [facility] Last Admin: 02/23/17 10:47 Dose: 1 tab - Objective Vital Signs: Vital Signs Temperature 97.8 F 02/23/17 10:00 Pulse Rate 89 02/23/17 11:26 Respiratory Rate 20 02/23/17 10:00 Blood Pressure 116/69 02/23/17 10:00 O2 Sat by Pulse Oximetry (%) 95 02/23/17 11:26 Constitutional: Yes: Well Nourished, Calm Eyes: Yes: WNL HENT: Yes: WNL Neck: Yes: Supple Cardiovascular: Yes: Regular Rate and Rhythm, S1, S2 Respiratory: Yes: Rales (bilateral rales) Gastrointestinal: Yes: Normal Bowel Sounds, Soft Extremities: Yes: WNL Edema: Yes Labs: CBC, BMP 02/23/17 06:00 INR, PTT INR 1.25 (0.82-1.09) H 02/06/17 13:21 Problem List - Problems (1) CHF (congestive heart failure) Code(s): I50.9 - HEART FAILURE, UNSPECIFIED Qualifiers: Congestive heart failure type: unspecified congestive heart failure type Congestive heart failure chronicity: acute on chronic Qualified Code(s): I50.9 - Heart failure, unspecified (2) Sarcoidosis Code(s): D86.9 - SARCOIDOSIS, UNSPECIFIED (3) SOB (shortness of breath) Code(s): R06.02 - SHORTNESS OF BREATH (4) ICD (implantable cardioverter-defibrillator), dual, in situ Code(s): Z95.810 - PRESENCE OF AUTOMATIC (IMPLANTABLE) CARDIAC DEFIBRILLATOR (5) COPD exacerbation Code(s): J44.1 - CHRONIC OBSTRUCTIVE PULMONARY DISEASE W (ACUTE) EXACERBATION (6) Lung infiltrate Code(s): R91.8 - OTHER NONSPECIFIC ABNORMAL FINDING OF LUNG FIELD (7) Pneumonia Code(s): J18.9 - PNEUMONIA, UNSPECIFIED ORGANISM Qualifiers: Pneumonia type: due to unspecified organism Laterality: bilateral Lung location: unspecified part of lung Qualified Code(s): J18.9 - Pneumonia, unspecified organism (8) SHERRI (acute kidney injury) Code(s): N17.9 - ACUTE KIDNEY FAILURE, UNSPECIFIED (9) Hypercarbia Code(s): R06.89 - OTHER ABNORMALITIES OF BREATHING (10) Hypoxia Code(s): R09.02 - HYPOXEMIA (11) Respiratory failure Code(s): J96.90 - RESPIRATORY FAILURE, UNSP, UNSP W HYPOXIA OR HYPERCAPNIA (12) Hypotension Code(s): I95.9 - HYPOTENSION, UNSPECIFIED (13) Septic shock Code(s): A41.9 - SEPSIS, UNSPECIFIED ORGANISM; R65.21 - SEVERE SEPSIS WITH SEPTIC SHOCK (14) Gram-negative bacteremia Code(s): R78.81 - BACTEREMIA Assessment/Plan A/P Acute on Chronic Hypoxic Respiratory Failure improving Pneumonia Sarcoidosis COPD Septic Shock improved Pulmonary HTN h/o ICD h/o DVT - antibiotics - lasix as needed - prednisone taper - inhaled bronchodilators - O2 to keep SpO2 >90% - PO as tolerated - anticoagulation - pulmonary rehab post discharge DR EUBANKS
[2017-02-23] MEDS ORDERED: predniSONE 10 MG TABLET (UD) PO SCH (20:56)
[2017-02-23] MEDS ORDERED: MAG HYDROX/AL HYDROX/SIMETH 30 ML UNIT-DOSE CUP PO PRN ×2 (21:00→21:35)
[2017-02-23] MEDS: MONTELUKAST NA 10 MG TABLET PO SCH (21:44)
[2017-02-23] MEDS: ATORVASTATIN CA 10 MG TABLET (FP) PO SCH (21:44)
[2017-02-23] MEDS: CHLORHEXIDINE GLUCONATE 4% CLEANSER FOR DECOLONIZATION TP SCH (21:45)
[2017-02-23] MEDS: MIRTAZAPINE 15 MG TABLET (FP) PO SCH (21:48)
[2017-02-23] MEDS ORDERED: PREGABALIN 50 MG CAPSULE PO SCH (22:00)
[2017-02-24] MEDS: ALBUTEROL SO4 2.5/IPRATROPIUM 0.5 INH SOL 3 ML VIAL.NEB. NEB SCH ×3 (06:10→17:20)
[2017-02-24] MEDS: INSULIN SLIDING SCALE (NOVOLOG) 1 VIAL SQ SCH ×3 (06:27→16:45)
[2017-02-24] MEDS: INSULIN DETEMIR 100 UNITS/ML MDV SQ SCH (06:28)
[2017-02-24] MEDS ORDERED: INSULIN (NOVOLOG) ASPART 100 UNITS/ML 10ML VIAL ONE ×2 (06:40→12:01)
[2017-02-24] MEDS: RANITIDINE HCL 150 MG TABLET (FP) PO SCH (10:03)
[2017-02-24] MEDS: SENNOSIDES 8.6MG TABLET (FP) PO SCH (10:03)
[2017-02-24] MEDS: APIXABAN 5 MG TABLET PO SCH (10:04)
[2017-02-24] MEDS: POLYETHYLENE GLYCOL 3350 119 GM BTL PO SCH (10:04)
[2017-02-24] MEDS: PREGABALIN 75 MG CAPSULE PO SCH (10:04)
[2017-02-24] MEDS: PANTOPRAZOLE SODIUM 40 MG VIAL IVPUSH SCH (10:05)
--- NOTE | 2017-02-24 11:32 | PN ---
Progress Note (short form) - Note Progress Note: PULMONARY VSS/AFEBRILE ANICTERIC/RIGHT IJ BILATERAL POSTERIOR CRACKLES S1S2 BS+ OBESE 1+ EDEMA B/L ANKLES RIGHT CALF EDEMA WITH TENDERNESS LABS/MEDS/NOTES/IMAGES/MICRO/ULTRASOUND REVIEWED Acute on Chronic Hypoxic Respiratory Failure improving Pneumonia/bilateral diffuse interstitial infiltrates Sarcoidosis COPD Septic Shock improved Pulmonary HTN h/o ICD h/o DVT - anticoagulation - lasix as needed - prednisone taper - inhaled bronchodilators - O2 to keep SpO2 >90% - PO as tolerated - glycemic control Yousif DENISE MD
[2017-02-24] MEDS ORDERED: FUROSEMIDE 40 MG/4 ML INJECTABLE VIAL IVPUSH ONE (12:15)
[2017-02-24 14:05] VITALS: BP 134/89; PULSE 106; TEMP 98.1
--- NOTE | 2017-02-24 19:45 | PN ---
Progress Note (short form) - Note Progress Note: Patient seen and examined in room c/o abdominal pain which improves with mylanta no vomiting / nausea Vital Signs Period Temp Pulse Resp BP Sys/Londono Pulse Ox Last 24 Hr 98.1 F-98.2 F 82-106 20-20 110-141/70-89 96-98 neck supple no JVD heart irregular lungs + scattered exp wheezing bilat / crackles at bases abd tenderness epigastric /right upper soft ? + BS ext +1 edema Left> right / no calf tenderness + decubiti stage II CBC, BMP 02/22/17 10:25 02/23/17 06:00 continues with elevated FS levemir inc to 20 units BID 02/15 given lasix 40 mgtoday prior to d/c Microbiology 02/12/17 11:50 Blood - Peripheral Venous Blood Culture - Preliminary NO GROWTH OBTAINED AFTER 96 HOURS, INCUBATION TO CONTINUE FOR 1 DAYS. 02/12/17 11:45 Blood - Peripheral Venous Blood Culture - Preliminary NO GROWTH OBTAINED AFTER 96 HOURS, INCUBATION TO CONTINUE FOR 1 DAYS. 02/06/17 14:30 Blood - Peripheral Venous Blood Culture - Final NO GROWTH AFTER 5 DAYS INCUBATION 02/06/17 14:30 Blood - Peripheral Venous Blood Culture - Final Klebsiella Oxytoca 02/07/17 05:45 Nasopharyngeal Swab Respiratory Virus (PCR) - Final 02/06/17 10:20 Sputum - Endotrachea Suction/Ventilator Gram Stain - Final 02/06/17 10:20 Sputum - Endotrachea Suction/Ventilator Sputum Culture - Final NORMAL RESPIRATORY MARTHA 02/07/17 13:57 Urine For Antigen Detection Legionella Antigen - Final 02/07/17 13:57 Urine For Antigen Detection Streptococcus pneumoniae Antigen (M - Final 02/07/17 12:10 Nasopharyngeal Swab Influenza Types A,B Antigen (SANGITA) - Final 02/07/17 12:10 Nasopharyngeal Swab - Final 02/06/17 14:30 Urine - Urine Clean Catch Urine Culture - Final NO GROWTH OBTAINED 62 y/o female [place] resident with PMH HTN, pHTN, Cardiac and Pulmonary Sarcoid, hfpef, hx [place] s/p ICD, DM, Lupus, hx DVT ( apixaban),hep C, GERD, chronic back pain ( s/p revision and s/p morphine pump 2012), COPD, O2 dependent 5lpm, who was transferred to ER due to increased lethargy over last 2 days, per family patient less responsive day of admission am and transfer to ER ordered. 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 pHTN O2 dependent keep O2 > 90% Cardiac s/p ICD 2/2 to [place] # COPD nebulizer / steroids inhaled and PO / O2 # DVT on A/C # DM Inc FS recent increase Levemir follow FS diet education # HTN controlled # HFpEF trace edema dyspnea - related to Pulm status vs CHF given lasix 40 02/20 and 02/21 no clinical improvement doubt CHF # depression started remeron 02/13 # s/p septic shock --resolved ICU care / pressors / rspiratory support now hemodynamically stable arrangement for D/C today back to [facility] discharge orders given Problem List - Problems (1) Abdominal pain Code(s): R10.9 - UNSPECIFIED ABDOMINAL PAIN (2) CHF (congestive heart failure) Code(s): I50.9 - HEART FAILURE, UNSPECIFIED Qualifiers: Congestive heart failure type: unspecified congestive heart failure type Congestive heart failure chronicity: acute on chronic Qualified Code(s): I50.9 - Heart failure, unspecified (3) Obstructive sleep apnea Code(s): G47.33 - OBSTRUCTIVE SLEEP APNEA (ADULT) (PEDIATRIC) (4) Chronic low back pain Code(s): M54.5 - LOW BACK PAIN; G89.29 - OTHER CHRONIC PAIN (5) ICD (implantable cardioverter-defibrillator), dual, in situ Code(s): Z95.810 - PRESENCE OF AUTOMATIC (IMPLANTABLE) CARDIAC DEFIBRILLATOR (6) Ventricular tachycardia Code(s): I47.2 - VENTRICULAR TACHYCARDIA (7) Sarcoidosis of lung Code(s): D86.0 - SARCOIDOSIS OF LUNG (8) COPD (chronic obstructive pulmonary disease) Code(s): J44.9 - CHRONIC OBSTRUCTIVE PULMONARY DISEASE, UNSPECIFIED Qualifiers: COPD type: COPD with acute exacerbation Qualified Code(s): J44.1 - Chronic obstructive pulmonary disease with (acute) exacerbation (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 (10) Diastolic CHF Code(s): I50.30 - UNSPECIFIED DIASTOLIC (CONGESTIVE) HEART FAILURE (11) IDDM (insulin dependent diabetes mellitus) Code(s): E11.9 - TYPE 2 DIABETES MELLITUS WITHOUT COMPLICATIONS; Z79.4 - INDUSTRIAL MACHINE [employer]SEM[employer]ER (CURRENT) USE OF INSULIN (12) DVT prophylaxis Code(s): [id number] - (13) Pneumonia Code(s): J18.9 - PNEUMONIA, UNSPECIFIED ORGANISM Qualifiers: Pneumonia type: due to unspecified organism Laterality: bilateral Lung location: unspecified part of lung Qualified Code(s): J18.9 - Pneumonia, unspecified organism (14) SHERRI (acute kidney injury) Code(s): N17.9 - ACUTE KIDNEY FAILURE, UNSPECIFIED (15) Hypercarbia Code(s): R06.89 - OTHER ABNORMALITIES OF BREATHING (16) Hypoxia Code(s): R09.02 - HYPOXEMIA (17) Respiratory failure Code(s): J96.90 - RESPIRATORY FAILURE, UNSP, UNSP W HYPOXIA OR HYPERCAPNIA (18) Hypotension Code(s): I95.9 - HYPOTENSION, UNSPECIFIED (19) Septic shock Code(s): A41.9 - SEPSIS, UNSPECIFIED ORGANISM; R65.21 - SEVERE SEPSIS WITH SEPTIC SHOCK
== END 2017-02-24 18:44 | DRG 710 ==
LOC: JER 12:49 → JERBED 17:17 → JICU 21:39 → J4W 02-10 19:28 → J7W 02-15 13:17
PROVIDERS: ADMIT Family Medicine; ATTEND Family Medicine
PROC: 5A1945Z Respiratory Ventilation, 24-96 Consecutive Hours (ICD-10-PCS; principal; 2017-02-06)
PROC: 0BH17EZ Insertion of Endotracheal Airway into Trachea, Via Natural or Artificial Opening (ICD-10-PCS; 2017-02-06)
PROC: 02H633Z Insertion of Infusion Device into Right Atrium, Percutaneous Approach (ICD-10-PCS; 2017-02-06)
DX: A41.50 Gram-negative sepsis, unspecified (principal); J96.21 Acute and chronic respiratory failure with hypoxia; J96.22 Acute and chronic respiratory failure with hypercapnia; N17.9 Acute kidney failure, unspecified; R65.21 Severe sepsis with septic shock; G93.41 Metabolic encephalopathy; J18.9 Pneumonia, unspecified organism; I47.2 Ventricular tachycardia; L51.1 Stevens-Johnson syndrome; J44.9 Chronic obstructive pulmonary disease, unspecified; I27.20 Pulmonary hypertension, unspecified; Z99.81 Dependence on supplemental oxygen; I11.0 Hypertensive heart disease with heart failure; I50.9 Heart failure, unspecified; D86.0 Sarcoidosis of lung; G20 Parkinson's disease; G45.9 Transient cerebral ischemic attack, unspecified; E83.42 Hypomagnesemia; I50.32 Chronic diastolic (congestive) heart failure; Z95.0 Presence of cardiac pacemaker; E11.9 Type 2 diabetes mellitus without complications; K21.9 Gastro-esophageal reflux disease without esophagitis; Z86.718 Personal history of other venous thrombosis and embolism; M54.9 Dorsalgia, unspecified; B19.20 Unspecified viral hepatitis C without hepatic coma; Y95 Nosocomial condition; Z88.0 Allergy status to penicillin; G47.33 Obstructive sleep apnea (adult) (pediatric); E87.6 Hypokalemia; R09.02 Hypoxemia; E66.9 Obesity, unspecified; Z88.1 Allergy status to other antibiotic agents; F32.9 Major depressive disorder, single episode, unspecified
CPT/HCPCS: 36415; 36600; 70450-TC; 71010-TC; 71250-TC; 74176-TC; 76705-TC; 80048; 80053; 81003; 82040; 82272; 82375; 82550; 82803; 83050; 83605; 83615; 83690; 83721; 83735; 83880; 84100; 84484; 85025; 85027; 85610; 85730; 86850; 86900; 86901; 87040; 87070; 87086; 87186; 87205; 87389; 87449; 87633; 87804; 87899; 93005; 93010; 93306-TC; 93971-TC; 94002; 94640; 94660; 97116-GP; 97161-GP; 99285-25; J1644

== ENCOUNTER 2017-03-09 19:11 | Inpatient (IN) | payer OTHER ==
[2017-03-09] MEDS ORDERED: MAGNESIUM SULF 50% (8.12 MEQ/2 ML-1 GM VIAL) IVPB ONE (19:42)
--- NOTE | 2017-03-09 19:42 | PDOC ---
History of Present Illness - History of Present Illness Initial Comments: 03/09/17 21:26 The patient is a 62 year old female, with a significant past medical history of chronic hypoxic respiratory failure, sarcoidosis,COPD, pulmonary hypertension, chronic diastolic heart failure, type 2 DM, DVT, HTN, depression, GERD, chronic back pain, hyperlipidemia, who was BIBA to the emergency department from [facility] with shortness of breath for a week. She denies recent fevers, chills, headache or dizziness. She denies recent nausea, vomit, diarrhea or constipation. She denies recent dysuria, frequency, urgency or hematuria. She denies recent chest pain. Allergies: see nursing notes Past surgical history: pacemaker Social history: Nonsmoker. Denies EtOH use and recreational drug use. Primary Care Physician: Whit Fuchs 03/09/17 21:40 <Flaca Garcia - Last Filed: 03/09/17 21:40> <Indigo Lee - Last Filed: 03/10/17 01:06> - General Stated Complaint: DIFFICULTY BREATHING Time Seen by Provider: 03/09/17 19:42 Past History <Flaca Garcia - Last Filed: 03/09/17 21:40> - Past Medical History Anemia: Yes Asthma: Yes Cancer: No Cardiac Disorders: Yes CVA: No COPD: Yes CHF: Yes Dementia: No Diabetes: Yes GI Disorders: Yes (acid reflux, gastric paresis) Disorders: Yes (Urinary retention) HTN: No Hypercholesterolemia: No Liver Disease: Yes (hep c) Seizures: No Thyroid Disease: No - Surgical History Abdominal Surgery: Yes Appendectomy: No Cardiac Surgery: Yes (AICD) Cholecystectomy: No Gastric Stapling: No Lung Surgery: No Neurologic Surgery: Yes (BACK SX WITH NERVE DAMAGE) Orthopedic Surgery: Yes (laminectomy x 2 in 2009 in [facility]) - Immunization History Immunization Up to Date: Yes - Suicide/Smoking/Psychosocial Hx Smoking Status: No Smoking History: Never smoked Have you smoked in the past 12 months: No Number of Cigarettes Smoked Daily: 0 Cigars Per Day: 0 Hx Alcohol Use: No Drug/Substance Use Hx: No Substance Use Type: None Hx Substance Use Treatment: No <Indigo Lee - Last Filed: 03/10/17 01:06> - Past Medical History Allergies/Adverse Reactions: Allergies Allergy/AdvReac Type Severity Reaction Status Date / Time medroxyprogesterone acetate Allergy Severe stepehns Verified 02/25/17 04:10 [From Depo-Provera] josé syndrome amoxicillin trihydrate Allergy Verified 02/25/17 04:10 [From Augmentin] aspirin Allergy Verified 02/25/17 04:10 azithromycin [From Zithromax] Allergy Dewey Verified 02/25/17 04:10 José syndrome ciprofloxacin HCl Allergy Verified 02/25/17 04:10 [From Cipro] codeine [Codeine] Allergy Verified 02/25/17 04:10 Iodinated Contrast- Oral and Allergy Verified 02/25/17 04:10 IV Dye [IV Dye, Iodine Containing Contrast ] ketorolac tromethamine Allergy Verified 02/25/17 04:10 [From Toradol] levofloxacin [From Levaquin] Allergy Verified 02/25/17 04:10 metronidazole [From Flagyl] Allergy Verified 02/25/17 04:10 nalbuphine HCl [From Nubain] Allergy CYANOSIS Verified 02/25/17 04:10 potassium clavulanate Allergy Verified 02/25/17 04:10 [From Augmentin] Shellfish Allergy Verified 02/25/17 04:10 sulfamethoxazole Allergy Verified 02/25/17 04:10 [From Bactrim] trimethoprim [From Bactrim] Allergy Verified 02/25/17 04:10 ivp dye Allergy Severe Swelling Uncoded 02/25/17 04:10 Home Medications: Ambulatory Orders Pregabalin [Lyrica -] 75 mg PO BID capsule MDD 2 02/21/16 Insulin Lispro [Humalog] 10 unit SQ TID 08/15/16 Apixaban [Eliquis -] 5 mg PO BID #60 tablet 01/09/17 Albuterol 0.083% Nebulizer Gisela [Ventolin 0.083% Nebulizer Soln -] 1 neb NEB Q4H 02/06/17 Ferrous Sulfate 325 mg PO BID 02/06/17 Insulin Glargine,Hum.rec.anlog [Basaglar Kwikpen U-100] 32 unit SQ HS 02/06/17 Lisinopril 10 mg PO DAILY 02/06/17 Tiotropium [place] [Spiriva Respimat] 4 gm IH BID 02/06/17 Albuterol 2.5/Ipratropium 0.5 [Duoneb -] 1 amp NEB Q4H PRN amp 02/24/17 Atorvastatin Ca [Lipitor] 10 mg PO HS tablet 02/24/17 Montelukast Na [Singulair -] 10 mg PO HS 30 Days #30 tablet 02/24/17 Polyethylene Glycol 3350 [Miralax 119 gm Btl -] 17 gm PO DAILY bottle 02/24/17 Sennosides [Senna -] 1 tab PO DAILY tablet 02/24/17 Furosemide [Lasix -] 80 mg PO DAILY 02/25/17 Metolazone [Zaroxolyn -] 5 mg PO DAILY 02/25/17 Morphine *Sr* [Ms Contin -] 15 mg PO Q12H 02/25/17 Prednisone [Deltasone -] 30 mg PO DAILY 02/25/17 Respiratory Specific PMHX - Complaint Specific PMHX Pulmonary Embolus: No <Indigo Lee - Last Filed: 03/10/17 01:06> Review of Systems - Review of Systems Comments:: 03/09/17 21:27 CONSTITUTIONAL: Absent: fever, chills, diaphoresis, generalized weakness, malaise, loss of appetite HEENT: Absent: rhinorrhea, nasal congestion, throat pain, throat swelling, difficulty swallowing, mouth swelling, ear pain, eye pain, visual Changes CARDIOVASCULAR: Present: irregular heart rate Absent: chest pain, syncope, palpitations, lightheadedness, peripheral edema RESPIRATORY: Present: cough, shortness of breath, wheezing Absent: dyspnea with exertion, orthopnea,stridor, hemoptysis GASTROINTESTINAL: Absent: abdominal pain, abdominal distension, nausea, vomiting, diarrhea, constipation, melena, hematochezia GENITOURINARY: Absent: dysuria, frequency, urgency, hesitancy, hematuria, flank pain, genital pain MUSCULOSKELETAL: Absent: myalgia, arthralgia, joint swelling SKIN: Absent: rash, itching, pallor HEMATOLOGIC/IMMUNOLOGIC: Absent: easy bleeding, easy bruising, lymphadenopathy, frequent infections ENDOCRINE: Absent: unexplained weight gain, unexplained weight loss, heat intolerance, cold intolerance NEUROLOGIC: Absent: headache, focal weakness or paresthesias, dizziness, unsteady gait, seizure, mental status changes, bladder or bowel incontinence PSYCHIATRIC: Absent: anxiety, depression, suicidal or homicidal ideation, hallucinations. <Flaca Garcia - Last Filed: 03/09/17 21:40> *Physical Exam - Vital Signs Last Vital Signs Temp Pulse Resp BP Pulse Ox 98.0 F 103 H 18 140/89 95 03/09/17 20:27 03/09/17 20:27 03/09/17 20:27 03/09/17 20:27 03/09/17 20:27 - Physical Exam Comments: 03/09/17 21:29 GENERAL: Well developed, well nourished. Awake and alert. No acute distress. HEENT: Normocephalic, atraumatic. PERRLA, EOMI. No conjunctival pallor. Sclera are non- icteric. Moist mucous membranes. Oropharynx is clear. NECK: Supple. Full ROM. No JVD. Carotid pulses 2+ and symmetric, without bruits. No thyromegaly. No lymphadenopathy. CARDIOVASCULAR: Regular rate and rhythm. No murmurs, rubs, or gallops. Distal pulses are 2+ and symmetric. PULMONARY: In Respiratory distress. Scattered wheezing. h/o COPD ABDOMINAL: Soft, protuberant. Non-tender. Non-distended. No rebound or guarding. No organomegaly. Normoactive bowel sounds. MUSCULOSKELETAL Normal range of motion at all joints. No bony deformities or tenderness. No CVA tenderness. EXTREMITIES: 2+ pitting edema bilaterally in legs. No cyanosis. No clubbing. No calf tenderness. SKIN: Warm and dry. Normal capillary refill. No rashes. No jaundice. NEUROLOGICAL: Alert, awake, appropriate. Cranial nerves 2-12 intact. No deficits to light touch and temperature in face, upper extremities and lower extremities. No motor deficits in the in face, upper extremities and lower extremities. Normoreflexic in the upper and lower extremities. Normal speech. Toes are down-going bilaterally. Gait is normal without ataxia. PSYCHIATRIC: Cooperative. Good eye contact. Appropriate mood and affect. <Flaca Garcia - Last Filed: 03/09/17 21:40> ED Treatment Course - Medications Given in the ED: ED Medications Discontinued Medications Generic Name Dose Route Start Last Admin Trade Name Freq PRN Reason Stop Dose Admin Albuterol/Ipratropium 1 amp 03/09/17 19:45 03/09/17 19:46 Duoneb - NEB 03/09/17 20:31 1 amp Q15M EYAL Administration <Flaca Garcia - Last Filed: 03/09/17 21:40> - LABORATORY CBC & Chemistry Diagram: 03/09/17 21:38 03/09/17 21:38 <Indigo Lee - Last Filed: 03/10/17 01:06> Medical Decision Making - Medical Decision Making 03/10/17 01:04 63-year-old female brought in by ambulance from [facility]. She intermediate for respiratory distress. Past medical history significant for COPD, CHF, insulin-dependent diabetes, family cardiac sarcoidosis. Patient had scattered wheezing in all lung wilhelm 3. Steroids, bronchodilator treatments, 20 mg IV Lasix. Chest x-ray did not show any acute infiltrates. Case discussed with PMD, Dr. M[place] and the patient was admitted for exacerbation. She uses BiPAP at night time and respiratory placed her on BiPAP with settings of rate equal to 14, FiO2 40%, 14/8 <Indigo Lee - Last Filed: 03/10/17 01:06> *DC/Admit/Observation/Transfer - Attestations Scribe Attestion: 03/09/17 21:32 Documentation prepared by Flaca Garcia, acting as medical planner for Indigo Lee MD. <Flaca Garcia - Last Filed: 03/09/17 21:40> - Discharge Dispostion Admit: Yes <Indigo Lee - Last Filed: 03/10/17 01:06> Diagnosis at time of Disposition: COPD exacerbation, IDDM (insulin dependent diabetes mellitus) Diastolic CHF Qualifiers: Congestive heart failure chronicity: unspecified congestive heart failure chronicity Qualified Code(s): I50.30 - Unspecified diastolic (congestive) heart failure
[2017-03-09] MEDS ORDERED: methylPREDNISolone NA SUCC 125 MG/2 ML VIAL IVPB ONE (19:43)
[2017-03-09] MEDS ORDERED: ALBUTEROL SO4 2.5/IPRATROPIUM 0.5 INH SOL 3 ML VIAL.NEB. NEB ONE ×3 (19:43→21:21)
[2017-03-09] MEDS: ALBUTEROL SO4 2.5/IPRATROPIUM 0.5 INH SOL 3 ML VIAL.NEB. NEB SCH ×3 (19:45→20:30)
[2017-03-09] MEDS ORDERED: MAGNESIUM SULF 50% (8.12 MEQ/2 ML-1 GM VIAL) ONE (19:58)
[2017-03-09] MEDS ORDERED: methylPREDNISolone NA SUCC 125 MG/2 ML VIAL ONE (19:58)
[2017-03-09 21:55] LABS: MCH 27.4 pg (25.7-33.7); MCHC 31.8 g/dl (32.0-36.0); MEAN CELL VOLUME 86.2 fl (80-96); MEAN PLT VOLUME 7.7 fl (7.5-11.1); PLATELET COUNT 397 K/MM3 (134-434); WHITE BLOOD COUNT 13.1 K/mm3 (4.0-10.0)
[2017-03-09 22:08] LABS: INR 1.7 (0.82-1.09); PROTHROMBIN TIME (PATIENT) 19.2 SEC (9.98-11.88)
[2017-03-09 22:16] LABS: ALBUMIN 2.3 g/dl (3.4-5.0); ANION GAP 10 (8-16); CALCIUM 8.5 mg/dL (8.5-10.1); CO2 29 mmol/L (21-32); GLUCOSE,RANDOM 256 mg/dL (74-106)
[2017-03-09] MEDS ORDERED: FUROSEMIDE 40 MG/4 ML INJECTABLE VIAL IVPUSH ONE (22:20)
[2017-03-09 22:21] LABS: ALK PHOS 110 U/L (45-117); BILIRUBIN,TOTAL 0.3 mg/dL (0.2-1.0); CREATININE 0.8 mg/dL (0.55-1.02); SGOT/AST 19 U/L (15-37); SGPT/ALT 20 U/L (12-78); TOT PROT 7.1 g/dl (6.4-8.2)
[2017-03-09 22:22] LABS: CPK 16 IU/L (26-192); TROPONIN I < 0.02 ng/ml (0.00-0.05)
[2017-03-09] MEDS ORDERED: FUROSEMIDE 40 MG/4 ML INJECTABLE VIAL ONE (22:35)
[2017-03-09 23:46] LABS: ARTERIAL BLOOD GAS BASE EXCESS 4.7 meq/l (-2-2); ARTERIAL BLOOD GAS HCO3 30.5 meq/L (22-26); ARTERIAL BLOOD GAS PO2 83.1 mmHg (80-100); ARTERIAL BLOOD GAS pH 7.37 (7.35-7.45)
[2017-03-09 23:48] LABS: ALLENS TEST POSITIVE; ART PUNCT SITE RIGHT RADIAL; LPM/O2% 4LPM; PT. ON O2? YES; TYPE OF O2 N/C
[2017-03-10] MEDS ORDERED: methylPREDNISolone NA SUCC 125 MG/2 ML VIAL ONE (00:54)
[2017-03-10] MEDS ORDERED: ALBUTEROL SO4 2.5/IPRATROPIUM 0.5 INH SOL 3 ML VIAL.NEB. NEB ONE (00:55)
[2017-03-10 01:07] LABS: HYPOCHROMIA 1+
--- NOTE | 2017-03-10 01:09 | HP ---
Admitting History and Physical - Admission Chief Complaint: dyspnea History of Present Illness: 62 y/o f resides @ [facility] with PMH of HTN, pHTN, HFpEF, Cardiac and Pulmonary Sarcoid, hx of VT s/p ICD,DM II, Lupus, hx of DVT (apixaban), Hep C, Gerd, Chronic back pain (back surgery s/p revision and s/p Morphine pump 2012 - nonfunctioning currently), COPD, O2 dependant (3-4 Lpm), s/p recent hospitalization for septic shock and acute respiratory failure requiring intubation-- found to have PNA treated for total of 17 days with Aztreonam, and transfered to [facility] for continued rehab. She was transferred to ED today with hx of several days of increased dyspnea along with increased LE edema. She denies recent fevers, chills, headache or dizziness. She denies recent nausea, vomit, diarrhea or constipation. She denies recent dysuria, frequency, urgency or hematuria. She denies recent chest pain. History Source: Patient, Medical Record Limitations to Obtaining History: Poor Historian - Past Medical History Cardiovascular: Yes: CHF (likely normal LVEF on ECHO this admission), Pulmonary Hypertension, Other (Sarcoidosis with cardiac involvement and history of VT s/p ICD) Pulmonary: Yes: Asthma, O2 Dependent, Sleep Apnea, Other (Sarcoidosis with cardiac involvement). No: Previously Intubated Gastrointestinal: Yes: GERD, Other (hepatitis C) Hepatobiliary: Yes: Hepatitis C Reproductive: Yes: Postmenopausal Heme/Onc: Yes: Anemia Infectious Disease: Yes: Other (HEP C) Musculoskeletal: Yes: Chronic low back pain (spinal cord stimulator) Rheumatology: Yes: Sarcoidosis (cardiac and Pulmonary) Endocrine: Yes: Diabetes Mellitus - Past Surgical History Past Surgical History: Yes: AICD, Laminectomy, Permanent Pacemaker (ICD. ) Additional Past Surgical History: revision of Laminectomy / Morphine pump 2013 / - Smoking History Smoking history: Never smoked Have you smoked in the past 12 months: No Aproximately how many cigarettes per day: 0 - Alcohol/Substance Use Hx Alcohol Use: No - Social History Usual Living Arrangement: Yes: Skilled Nursing ADL: Support Services History of Recent Travel: No Home Medications - Allergies Allergies/Adverse Reactions: Allergies Allergy/AdvReac Type Severity Reaction Status Date / Time medroxyprogesterone acetate Allergy Severe stepehns Verified 02/25/17 04:10 [From Depo-Provera] josé syndrome amoxicillin trihydrate Allergy Verified 02/25/17 04:10 [From Augmentin] aspirin Allergy Verified 02/25/17 04:10 azithromycin [From Zithromax] Allergy Dewey Verified 02/25/17 04:10 José syndrome ciprofloxacin HCl Allergy Verified 02/25/17 04:10 [From Cipro] codeine [Codeine] Allergy Verified 02/25/17 04:10 Iodinated Contrast- Oral and Allergy Verified 02/25/17 04:10 IV Dye [IV Dye, Iodine Containing Contrast ] ketorolac tromethamine Allergy Verified 02/25/17 04:10 [From Toradol] levofloxacin [From Levaquin] Allergy Verified 02/25/17 04:10 metronidazole [From Flagyl] Allergy Verified 02/25/17 04:10 nalbuphine HCl [From Nubain] Allergy CYANOSIS Verified 02/25/17 04:10 potassium clavulanate Allergy Verified 02/25/17 04:10 [From Augmentin] Shellfish Allergy Verified 02/25/17 04:10 sulfamethoxazole Allergy Verified 02/25/17 04:10 [From Bactrim] trimethoprim [From Bactrim] Allergy Verified 02/25/17 04:10 ivp dye Allergy Severe Swelling Uncoded 02/25/17 04:10 - Home Medications Home Medications: Ambulatory Orders Albuterol 0.083% Nebulizer Gisela [Ventolin 0.083%] 1 neb NEB Q4H 03/10/17 Apixaban [Eliquis] 2.5 mg PO DAILY 03/10/17 Furosemide [Lasix] 20 mg PO DAILY 03/10/17 Montelukast Na [Singulair -] 10 mg PO HS 03/10/17 Pantoprazole Sodium [Protonix] 40 mg PO DAILY 03/10/17 Pregabalin [Lyrica] 100 mg PO BID 03/10/17 Rosuvastatin [Crestor -] 40 mg PO DAILY 03/10/17 Family Disease History - Family Disease History Family Disease History: Other: Mother (3 CVAs, the first in her 60s) Review of Systems - Review of Systems Constitutional: reports: Malaise, Weakness. denies: Chills, Diaphoresis, Fever , Lethargy, Night Sweats HENT: denies: Difficult Swallowing, Nasal Congestion, Throat Pain Neck: reports: No Symptoms Cardiovascular: reports: Edema, Shortness of Breath. denies: Chest Pain, Palpitations Respiratory: reports: Cough, Orthopnea, PND, SOB Gastrointestinal: reports: Abdominal Pain (epigastric), Bloating, Constipation Genitourinary: denies: Burning, Dysuria, Flank Pain Breasts: reports: No Symptoms Reported Musculoskeletal: reports: Back Pain, Muscle Weakness. denies: Joint Swelling, Muscle Pain Integumentary: reports: Other (decubiti) Endocrine: reports: No Symptoms Hematology/Lymphatic: reports: No Symptoms Psychiatric: reports: Depression Physical Examination Vital Signs: Vital Signs Temperature 98.0 F 03/09/17 20:27 Pulse Rate 103 H 03/09/17 20:27 Respiratory Rate 18 03/09/17 20:27 Blood Pressure 140/89 03/09/17 20:27 O2 Sat by Pulse Oximetry (%) 100 03/09/17 23:40 Constitutional: Yes: No Distress, Calm Eyes: Yes: WNL HENT: Yes: WNL Neck: Yes: Supple, Other (no JVD) Cardiovascular: Yes: Regular Rate and Rhythm Respiratory: Yes: Rhonchi (diffuse) Gastrointestinal: Yes: Normal Bowel Sounds, Soft, Abdomen, Obese ...Rectal Exam: Yes: Deferred, Other (stage 2 tello rectal) Renal/: Yes: WNL. No: Bladder Distention, CVA Tenderness - Left Musculoskeletal: Yes: Back Pain, Joint Swelling Extremities: No: Deformity, Erythema Edema: No Edema: LLE: 1+, RLE: 1+ Peripheral Pulses WNL: Yes Peripheral Pulses: Left Radial: 1+, Right Radial: 1+, Left Doralis Pedis: 1+, Right Dorsalis Pedis: 1+, Left Femoral: 1+, Right Femoral: 1+ Integumentary: Yes: Pressure Ulcer Neurological: Yes: Alert, Oriented Psychiatric: Yes: Alert, Oriented Labs: CBC, BMP 03/09/17 21:38 03/09/17 21:38 Problem List - Problems (1) COPD exacerbation Assessment/Plan: O2 dependant steroids IV and Inhaled nebulizer will need higher dose PO steroids at time of d/c Code(s): J44.1 - CHRONIC OBSTRUCTIVE PULMONARY DISEASE W (ACUTE) EXACERBATION (2) Sarcoidosis of lung Assessment/Plan: advanced Sarcoid O2 dependant / steroids / inhaler Code(s): D86.0 - SARCOIDOSIS OF LUNG (3) Diastolic CHF Code(s): I50.30 - UNSPECIFIED DIASTOLIC (CONGESTIVE) HEART FAILURE Qualifiers: Congestive heart failure chronicity: unspecified congestive heart failure chronicity Qualified Code(s): I50.30 - Unspecified diastolic (congestive) heart failure (4) IDDM (insulin dependent diabetes mellitus) Code(s): E11.9 - TYPE 2 DIABETES MELLITUS WITHOUT COMPLICATIONS; Z79.4 - CARE HOME (CURRENT) USE OF INSULIN (5) Allergy to multiple antibiotics Code(s): Z88.1 - ALLERGY STATUS TO OTHER ANTIBIOTIC AGENTS STATUS (6) COPD (chronic obstructive pulmonary disease) Code(s): J44.9 - CHRONIC OBSTRUCTIVE PULMONARY DISEASE, UNSPECIFIED Qualifiers: COPD type: COPD with acute exacerbation Qualified Code(s): J44.1 - Chronic obstructive pulmonary disease with (acute) exacerbation (7) Obstructive sleep apnea Code(s): G47.33 - OBSTRUCTIVE SLEEP APNEA (ADULT) (PEDIATRIC) (8) SOB (shortness of breath) Code(s): R06.02 - SHORTNESS OF BREATH (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
[2017-03-10] MEDS: methylPREDNISolone NA SUCC 125 MG/2 ML VIAL IVPUSH SCH ×3 (01:30→17:51)
[2017-03-10] MEDS: ALBUTEROL SO4 2.5/IPRATROPIUM 0.5 INH SOL 3 ML VIAL.NEB. NEB SCH ×4 (01:30→17:00)
[2017-03-10] MEDS: FUROSEMIDE 40 MG/4 ML INJECTABLE VIAL IVPUSH SCH ×2 (01:30→10:13)
[2017-03-10 03:12] VITALS: BMI 30.3
[2017-03-10] MEDS: INSULIN SLIDING SCALE (NOVOLOG) 1 VIAL SQ SCH ×4 (06:26→21:17)
[2017-03-10] MEDS ORDERED: PT OWN MED DRAWER 7, Y5N ONE ×2 (09:54→15:08)
[2017-03-10] MEDS ORDERED: INSULIN DETEMIR 100 UNITS/ML MDV SQ SCH ×2 (10:00→22:00)
[2017-03-10] MEDS: FERROUS SO4 325 MG TABLET (FP) PO SCH ×2 (10:10→21:13)
[2017-03-10] MEDS: APIXABAN 5 MG TABLET PO SCH ×2 (10:10→21:13)
[2017-03-10] MEDS: LISINOPRIL 10 MG TABLET (FP) PO SCH (10:10)
[2017-03-10] MEDS: DOCUSATE SODIUM 100 MG CAPSULE (FP) PO SCH ×2 (10:10→21:13)
[2017-03-10] MEDS: PANTOPRAZOLE 40 MG TABLET (FP) PO SCH ×2 (10:10→21:13)
[2017-03-10] MEDS: morphine SO4 SUSTAINED ACTING 15 MG TABLET.SA PO SCH ×2 (10:10→21:13)
[2017-03-10] MEDS: PREGABALIN 75 MG CAPSULE PO SCH ×2 (10:10→21:13)
[2017-03-10] MEDS: TIOTROPIUM BROMIDE 18 MCG/INH (DEVICE W/ 5 CAPSULES) IH SCH (10:14)
[2017-03-10] MEDS: POLYETHYLENE GLYCOL 3350 119 GM BTL PO SCH (10:18)
--- NOTE | 2017-03-10 12:53 | EKG ---
Test Reason : Blood Pressure : / mmHG Vent. Rate : 124 BPM Atrial Rate : 124 BPM P-R Int : 124 ms QRS Dur : 068 ms QT Int : 298 ms P-R-T Axes : 011 -10 047 degrees QTc Int : 428 ms SINUS TACHYCARDIA WITH PREMATURE ATRIAL COMPLEXES WITH ABERRANT CONDUCTION MINIMAL VOLTAGE CRITERIA FOR LVH, MAY BE NORMAL VARIANT BORDERLINE ECG WHEN COMPARED WITH ECG OF 25-FEB-2017 04:05, NO SIGNIFICANT CHANGE WAS FOUND Confirmed by ANILA CASANOVA MD ([id number]) on 03/10/2017 12:53:04 PM Referred By: Confirmed By:ANILA CASANOVA MD
--- NOTE | 2017-03-10 15:12 | PN ---
Progress Note (short form) - Note Progress Note: PULMONARY CONSULTATION DICTATED 03/10/17 IMP ACUTE ON CHRONIC HYPOXEMIC/HYPERCAPNEIC RESPIRATORY FAILURE ADVANCED SARCOIDOSIS PULMONARY/CARDIAC SARCOID COPD/ASTHMA CHF S/P AICD PULMONARY HTN DM HTN OSAS GERD H/O DVT PLAN IV STEROIDS INHALED BRONCHODILATORS O2 BIPAP AT NIGHT AND PRN LASIX DAILY WTS AC DR EUBANKS Problem List - Problems (1) Acute on chronic respiratory failure with hypoxia and hypercapnia Code(s): J96.21 - ACUTE AND CHRONIC RESPIRATORY FAILURE WITH HYPOXIA; J96.22 - ACUTE AND CHRONIC RESPIRATORY FAILURE WITH HYPERCAPNIA (2) COPD exacerbation Code(s): J44.1 - CHRONIC OBSTRUCTIVE PULMONARY DISEASE W (ACUTE) EXACERBATION (3) Diastolic CHF Code(s): I50.30 - UNSPECIFIED DIASTOLIC (CONGESTIVE) HEART FAILURE Qualifiers: Congestive heart failure chronicity: unspecified congestive heart failure chronicity Qualified Code(s): I50.30 - Unspecified diastolic (congestive) heart failure (4) IDDM (insulin dependent diabetes mellitus) Code(s): E11.9 - TYPE 2 DIABETES MELLITUS WITHOUT COMPLICATIONS; Z79.4 - GAS METER PROVER (CURRENT) USE OF INSULIN (5) CHF (congestive heart failure) Code(s): I50.9 - HEART FAILURE, UNSPECIFIED Qualifiers: Congestive heart failure type: unspecified congestive heart failure type Congestive heart failure chronicity: acute on chronic Qualified Code(s): I50.9 - Heart failure, unspecified (6) COPD (chronic obstructive pulmonary disease) Code(s): J44.9 - CHRONIC OBSTRUCTIVE PULMONARY DISEASE, UNSPECIFIED Qualifiers: COPD type: COPD with acute exacerbation Qualified Code(s): J44.1 - Chronic obstructive pulmonary disease with (acute) exacerbation (7) ICD (implantable cardioverter-defibrillator), dual, in situ Code(s): Z95.810 - PRESENCE OF AUTOMATIC (IMPLANTABLE) CARDIAC DEFIBRILLATOR (8) Obstructive sleep apnea Code(s): G47.33 - OBSTRUCTIVE SLEEP APNEA (ADULT) (PEDIATRIC) (9) Respiratory failure Code(s): J96.90 - RESPIRATORY FAILURE, UNSP, UNSP W HYPOXIA OR HYPERCAPNIA (10) SOB (shortness of breath) Code(s): R06.02 - SHORTNESS OF BREATH (11) Sarcoidosis of lung Code(s): D86.0 - SARCOIDOSIS OF LUNG (12) Asthma Code(s): J45.909 - UNSPECIFIED ASTHMA, UNCOMPLICATED (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
--- NOTE | 2017-03-10 18:44 | CONS ---
DATE OF CONSULTATION: 03/10/2017 PULMONARY CONSULTATION REFERRING PHYSICIAN: Whit Fuchs M.D. HISTORY OF PRESENT ILLNESS: The patient is a 62-year-old black female known to me from previous hospitalization with a past medical history of chronic hypoxemic respiratory failure, on O2, secondary to advanced sarcoidosis, COPD, asthma, pulmonary hypertension, chronic diastolic heart failure, type 2 diabetes, hypertension, DVT, GERD, depression, chronic back pain, hyperlipidemia, recently hospitalized at [facility] secondary to COPD, asthma, CHF exacerbation, was transferred to [facility] for short-term rehabilitation. Patient states that for the past few days, she started having some increasing shortness of breath and dyspnea on exertion. Denies any chest pains or palpitations. Denied any fevers but has had chills. She has a cough productive of clear sputum. Denies any hemoptysis. EMS was called, and the patient was brought to the emergency room. On admission, she was found to be in respiratory distress. She was treated with inhaled bronchodilators with some improvement and transferred up to floor for further management. Patient denies any history of tobacco use. There is no history of occupational exposure to chemicals or fumes. There is no history of recent travel. PAST MEDICAL HISTORY: Again includes advanced sarcoidosis with chronic hypoxemic respiratory failure on O2, COPD, asthma, pulmonary hypertension, chronic diastolic heart failure status post AICD, status post pacemaker, reflux, gastroparesis, back surgery with nerve damage, laminectomy [address] [place] [id number], type 2 diabetes, DVT, hypertension, GERD, and depression. REVIEW OF SYSTEMS: Positive dyspnea. Positive orthopnea. No chest pain. No palpitations. No nausea. No vomiting. Positive cough. No abdominal pain. Positive lower extremity edema. CURRENT MEDICATIONS: Include Solu-Medrol 60 q.8, Prinivil, Eliquis, Lyrica, Spiriva, DuoNeb, Colace, Miralax, Lipitor, Novolog, Levemir, Feosol, Singulair, Lasix, MS Contin, Protonix. PHYSICAL EXAMINATION: General: The patient is an obese black female, awake, alert, currently in no acute respiratory distress. Vital signs: She is currently afebrile. Blood pressure 109/70, respiratory rate 20, O2 saturation 94% on 3 L. HEENT: Head is normocephalic, atraumatic. Neck: Supple. Heart: Regular. S1, S2. Chest: Bilateral crackles throughout. Abdomen: Soft. Bowel sounds positive. Extremities: Bilateral lower extremity edema. LABORATORY: BUN 14, creatinine 0.8, BNP 223. Blood gas: pH 7.37, pCO2 of 54, pO2 of 83, bicarbonate of 30, and a saturation of 95, that is on 4 L of nasal cannula. INR is 1.7. WBC is 13.1, hemoglobin 10.2, hematocrit 32.1, platelet count 397,000. Chest x-ray no significant change from previous. IMPRESSION: 1. [id number] hypoxemic respiratory failure. 2. Advanced sarcoidosis. 3. Chronic obstructive pulmonary disease/asthma exacerbation. 4. Chronic diastolic heart failure status post , status post implantable cardioverter defibrillator. 5. History of deep vein thrombosis. 6. Gastroesophageal reflux disease. 7. Pulmonary hypertension. 8. Diabetes. PLAN: IV steroids. Inhaled bronchodilator. Supplemental O2. Diuretics. Obtain followup chest x-ray. Daily weights. Thank you. Will follow closely with you. STACY EUBANKS M.D. BLAYNE/[id number]
[2017-03-10] MEDS: MONTELUKAST NA 10 MG TABLET PO SCH (21:14)
[2017-03-10] MEDS: ATORVASTATIN CA 10 MG TABLET (FP) PO SCH (21:14)
[2017-03-10] MEDS ORDERED: INSULIN (NOVOLOG) ASPART 100 UNITS/ML 10ML VIAL ONE (21:17)
--- NOTE | 2017-03-10 22:19 | PN ---
Progress Note (short form) - Note Progress Note: patient seen this am / s/p physical therapy able to bear weight and transfer feeling "a little bit better" no fever or chills Vital Signs Period Temp Pulse Resp BP Sys/Londono Pulse Ox Last 24 Hr 97.3 F-98 F 92-119 18-20 109-126/56-100 94-100 neck supple no JVD heart S1/S2 Lungs bilat rhonchi / no rales / no wheezing abd soft non tender healed sacral decub / small stage II decubiti superior to rectum ext +1 edema left >right CBC, BMP 03/09/17 21:38 03/09/17 21:38 FS > 400 will increase Insulin continue insulin coverage Active Medications Albuterol/Ipratropium (Duoneb -) 1 amp NEB QIDR [facility] Last Admin: 03/10/17 17:00 Dose: 1 amp Albuterol/Ipratropium (Duoneb -) 1 amp NEB Q4H PRN PRN Reason: SHORTNESS OF BREATH Apixaban (Eliquis -) 5 mg PO BID [facility] Last Admin: 03/10/17 21:13 Dose: 5 mg Atorvastatin Calcium (Lipitor -) 10 mg PO HS [facility] Last Admin: 03/10/17 21:14 Dose: 10 mg Docusate Sodium (Colace -) 100 mg PO BID [facility] Last Admin: 03/10/17 21:13 Dose: 100 mg Ferrous Sulfate (Feosol -) 325 mg PO BID [facility] Last Admin: 03/10/17 21:13 Dose: 325 mg Furosemide (Lasix Injection -) 20 mg IVPUSH DAILY [facility] Last Admin: 03/10/17 10:13 Dose: 20 mg Insulin Aspart (Novolog Vial Sliding Scale -) 1 vial SQ ACHS [facility] PRN Reason: Protocol Last Admin: 03/10/17 21:17 Dose: 4 units Insulin Detemir (Levemir Vial) 20 units SQ 0700,2200 [facility] Last Admin: 03/10/17 21:14 Dose: 20 units Lisinopril (Prinivil) 10 mg PO DAILY [facility] Last Admin: 03/10/17 10:10 Dose: 10 mg Methylprednisolone Sodium Succinate (Solu-Medrol -) 60 mg IVPUSH Q8H-IV [facility] Last Admin: 03/10/17 17:51 Dose: 60 mg Montelukast Sodium (Singulair -) 10 mg PO HS [facility] Last Admin: 03/10/17 21:14 Dose: 10 mg Morphine Sulfate (Ms Contin -) 15 mg PO BID [facility] Last Admin: 03/10/17 21:13 Dose: 15 mg Pantoprazole Sodium (Protonix -) 40 mg PO BID [facility] Last Admin: 03/10/17 21:13 Dose: 40 mg Polyethylene Glycol (Miralax (For Daily Use) -) 17 gm PO DAILY [facility] Last Admin: 03/10/17 10:18 Dose: Not Given Pregabalin (Lyrica -) 75 mg PO BID [facility] Last Admin: 03/10/17 21:13 Dose: 75 mg Tiotropium [place] (Spiriva -) 1 puff IH DAILY [facility] Last Admin: 03/10/17 10:14 Dose: 1 puff # dyspnea multi-factorial exacerbation COPD? / advanced Sarcoid / diastolic HF? / pHTN / GERD O2 dependant Steroids IV & inhaled /nebulizer pulmonary consult follow repeat CXR follow daily weight and BUN /Cr on daily diuretic follow CBC C/S if febrile -- pte with hx of extensive ABX allergies avoid emperic tx unless febrile # Sarcoid Cardiac -- hx VT >>AICD Pulmonary -- O2 dependant will need lifelong PO steroids # COPD continue treatment as above # DM II Insulin with sliding scale increased FS due to IV steroids will adjust basal insulin # HTN / Lupus / Hep C / hx DVT on a/c / chronic back pain / depression continue current out patient medications Problem List - Problems (1) COPD exacerbation Code(s): J44.1 - CHRONIC OBSTRUCTIVE PULMONARY DISEASE W (ACUTE) EXACERBATION (2) Sarcoidosis of lung Code(s): D86.0 - SARCOIDOSIS OF LUNG (3) Diastolic CHF Code(s): I50.30 - UNSPECIFIED DIASTOLIC (CONGESTIVE) HEART FAILURE Qualifiers: Congestive heart failure chronicity: unspecified congestive heart failure chronicity Qualified Code(s): I50.30 - Unspecified diastolic (congestive) heart failure (4) IDDM (insulin dependent diabetes mellitus) Code(s): E11.9 - TYPE 2 DIABETES MELLITUS WITHOUT COMPLICATIONS; Z79.4 - SNF (CURRENT) USE OF INSULIN (5) Allergy to multiple antibiotics Code(s): Z88.1 - ALLERGY STATUS TO OTHER ANTIBIOTIC AGENTS STATUS (6) COPD (chronic obstructive pulmonary disease) Code(s): J44.9 - CHRONIC OBSTRUCTIVE PULMONARY DISEASE, UNSPECIFIED Qualifiers: COPD type: COPD with acute exacerbation Qualified Code(s): J44.1 - Chronic obstructive pulmonary disease with (acute) exacerbation (7) Obstructive sleep apnea Code(s): G47.33 - OBSTRUCTIVE SLEEP APNEA (ADULT) (PEDIATRIC) (8) SOB (shortness of breath) Code(s): R06.02 - SHORTNESS OF BREATH (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
[2017-03-10] MEDS ORDERED: MAG HYDROX/AL HYDROX/SIMETH 30 ML UNIT-DOSE CUP PO PRN (22:25)
[2017-03-10] MEDS: MIRTAZAPINE 15 MG TABLET (FP) PO SCH (23:08)
[2017-03-11] MEDS: ALBUTEROL SO4 2.5/IPRATROPIUM 0.5 INH SOL 3 ML VIAL.NEB. NEB SCH ×5 (00:12→23:05)
[2017-03-11] MEDS: methylPREDNISolone NA SUCC 125 MG/2 ML VIAL IVPUSH SCH (01:07)
[2017-03-11] MEDS: ALBUTEROL SO4 2.5/IPRATROPIUM 0.5 INH SOL 3 ML VIAL.NEB. NEB PRN (03:26)
[2017-03-11] MEDS: INSULIN DETEMIR 100 UNITS/ML MDV SQ SCH ×2 (06:26→21:35)
[2017-03-11] MEDS: INSULIN SLIDING SCALE (NOVOLOG) 1 VIAL SQ SCH ×4 (06:26→21:47)
[2017-03-11] MEDS ORDERED: INSULIN (NOVOLOG) ASPART 100 UNITS/ML 10ML VIAL ONE (06:51)
[2017-03-11 07:19] LABS: BASOPHIL 0.2 % (0-2.0); MCHC 31.4 g/dl (32.0-36.0); MEAN CELL VOLUME 85.9 fl (80-96); MEAN PLT VOLUME 7.7 fl (7.5-11.1); NEUTROPHILS 91.9 % (42.8-82.8); PLATELET COUNT 467 K/MM3 (134-434); RDW 19.2 % (11.6-15.6); WHITE BLOOD COUNT 15.1 K/mm3 (4.0-10.0)
[2017-03-11 08:00] LABS: ANION GAP 8 (8-16); CALCIUM 8.8 mg/dL (8.5-10.1); CO2 35 mmol/L (21-32); CREATININE 0.8 mg/dL (0.55-1.02); MAGNESIUM 1.7 mg/dL (1.8-2.4); PHOSPHOROUS 3.3 mg/dL (2.5-4.9)
[2017-03-11 08:38] LABS: GLUCOSE,RANDOM 344 mg/dL (74-106)
[2017-03-11] MEDS ORDERED: PT OWN MED DRAWER 7, Y5N ONE ×2 (09:26→21:19)
[2017-03-11] MEDS: APIXABAN 5 MG TABLET PO SCH ×2 (09:32→21:26)
[2017-03-11] MEDS: DOCUSATE SODIUM 100 MG CAPSULE (FP) PO SCH ×2 (09:32→21:25)
[2017-03-11] MEDS: morphine SO4 SUSTAINED ACTING 15 MG TABLET.SA PO SCH ×2 (09:32→21:25)
[2017-03-11] MEDS: PREGABALIN 75 MG CAPSULE PO SCH ×2 (09:32→21:25)
[2017-03-11] MEDS: FERROUS SO4 325 MG TABLET (FP) PO SCH ×2 (09:32→21:25)
[2017-03-11] MEDS: PANTOPRAZOLE 40 MG TABLET (FP) PO SCH ×2 (09:32→21:25)
[2017-03-11] MEDS: LISINOPRIL 10 MG TABLET (FP) PO SCH (09:32)
[2017-03-11] MEDS: predniSONE 20 MG TABLET (UD) PO SCH (09:32)
[2017-03-11] MEDS: FUROSEMIDE 20 MG TABLET (FP) PO SCH (09:32)
[2017-03-11] MEDS: POLYETHYLENE GLYCOL 3350 119 GM BTL PO SCH (09:33)
[2017-03-11] MEDS: TIOTROPIUM BROMIDE 18 MCG/INH (DEVICE W/ 5 CAPSULES) IH SCH (09:33)
--- NOTE | 2017-03-11 12:44 | PN ---
Progress Note (short form) - Note Progress Note: PULMONARY States breathing slightly improved. Still with cough and wheezing. No fevers or chills. Last Vital Signs Temp Pulse Resp BP Pulse Ox 97.4 F L 109 H 22 119/63 95 03/11/17 10:00 03/11/17 11:10 03/11/17 10:00 03/11/17 10:00 03/11/17 11:10 Gen: mildly tachypneic with speaking Heart: tachycardic, regular Lung: basilar rales, scattered wheezes Abd: soft, nontender Ext: no edema CBC, BMP 03/11/17 06:45 03/11/17 06:45 Active Medications Al Hydroxide/Mg Hydroxide (Mylanta Oral Suspension -) 30 ml PO QID PRN PRN Reason: INDIGESTION Albuterol/Ipratropium (Duoneb -) 1 amp NEB QIDR [facility] Last Admin: 03/11/17 11:10 Dose: 1 amp Albuterol/Ipratropium (Duoneb -) 1 amp NEB Q4H PRN PRN Reason: SHORTNESS OF BREATH Last Admin: 03/11/17 03:26 Dose: 1 amp Apixaban (Eliquis -) 5 mg PO BID [facility] Last Admin: 03/11/17 09:32 Dose: 5 mg Atorvastatin Calcium (Lipitor -) 10 mg PO HS [facility] Last Admin: 03/10/17 21:14 Dose: 10 mg Docusate Sodium (Colace -) 100 mg PO BID [facility] Last Admin: 03/11/17 09:32 Dose: 100 mg Ferrous Sulfate (Feosol -) 325 mg PO BID [facility] Last Admin: 03/11/17 09:32 Dose: 325 mg Furosemide (Lasix -) 20 mg PO DAILY [facility] Last Admin: 03/11/17 09:32 Dose: 20 mg Insulin Aspart (Novolog Vial Sliding Scale -) 1 vial SQ ACHS [facility] PRN Reason: Protocol Last Admin: 03/11/17 11:29 Dose: 6 units Insulin Detemir (Levemir Vial) 25 units SQ 0700,2200 [facility] Last Admin: 03/11/17 06:26 Dose: 25 units Lisinopril (Prinivil) 10 mg PO DAILY [facility] Last Admin: 03/11/17 09:32 Dose: 10 mg Mirtazapine (Remeron -) 15 mg PO HS [facility] Last Admin: 03/10/17 23:08 Dose: Not Given Montelukast Sodium (Singulair -) 10 mg PO HS [facility] Last Admin: 03/10/17 21:14 Dose: 10 mg Morphine Sulfate (Ms Contin -) 15 mg PO BID [facility] Last Admin: 03/11/17 09:32 Dose: 15 mg Pantoprazole Sodium (Protonix -) 40 mg PO BID [facility] Last Admin: 03/11/17 09:32 Dose: 40 mg Polyethylene Glycol (Miralax (For Daily Use) -) 17 gm PO DAILY [facility] Last Admin: 03/11/17 09:33 Dose: Not Given Prednisone (Deltasone -) 60 mg PO DAILY [facility] Last Admin: 03/11/17 09:32 Dose: 60 mg Pregabalin (Lyrica -) 75 mg PO BID [facility] Last Admin: 03/11/17 09:32 Dose: 75 mg Tiotropium [place] (Spiriva -) 1 puff IH DAILY [facility] Last Admin: 03/11/17 09:33 Dose: 1 puff A/P Acute on Chronic Hypoxic and Hypercapneic Respiratory Failure Sarcoidosis COPD Pulmonary HTN HTN DM h/o DVT - prednisone taper - inhaled bronchodilators - will d/c spiriva as pt on standing duonebs - O2 to keep SpO2 >90% - BiPAP at night and PRN during day - continue anticoagulation
--- NOTE | 2017-03-11 13:35 | PN ---
Progress Note (short form) - Note Progress Note: able to bear weight and transfer feeling "a little bit better" no fever or chills Vital Signs Period Temp Pulse Resp BP Sys/Londono Pulse Ox Last 24 Hr 97.3 F-98 F 92-119 18-20 109-126/56-100 94-100 neck supple no JVD heart S1/S2 Lungs bilat rhonchi / no rales / wheezing left mid base abd soft non tender healed sacral decub / small stage II decubiti superior to rectum ext +1 edema left >right CBC, BMP 03/11/17 06:45 03/11/17 06:45 continue insulin coverage Active Medications Al Hydroxide/Mg Hydroxide (Mylanta Oral Suspension -) 30 ml PO QID PRN PRN Reason: INDIGESTION Albuterol/Ipratropium (Duoneb -) 1 amp NEB QIDR [facility] Last Admin: 03/11/17 11:10 Dose: 1 amp Albuterol/Ipratropium (Duoneb -) 1 amp NEB Q4H PRN PRN Reason: SHORTNESS OF BREATH Last Admin: 03/11/17 03:26 Dose: 1 amp Apixaban (Eliquis -) 5 mg PO BID [facility] Last Admin: 03/11/17 09:32 Dose: 5 mg Atorvastatin Calcium (Lipitor -) 10 mg PO HS [facility] Last Admin: 03/10/17 21:14 Dose: 10 mg Docusate Sodium (Colace -) 100 mg PO BID [facility] Last Admin: 03/11/17 09:32 Dose: 100 mg Ferrous Sulfate (Feosol -) 325 mg PO BID [facility] Last Admin: 03/11/17 09:32 Dose: 325 mg Furosemide (Lasix -) 20 mg PO DAILY [facility] Last Admin: 03/11/17 09:32 Dose: 20 mg Insulin Aspart (Novolog Vial Sliding Scale -) 1 vial SQ ACHS [facility] PRN Reason: Protocol Last Admin: 03/11/17 11:29 Dose: 6 units Insulin Detemir (Levemir Vial) 25 units SQ 0700,2200 [facility] Last Admin: 03/11/17 06:26 Dose: 25 units Lisinopril (Prinivil) 10 mg PO DAILY [facility] Last Admin: 03/11/17 09:32 Dose: 10 mg Mirtazapine (Remeron -) 15 mg PO HS [facility] Last Admin: 03/10/17 23:08 Dose: Not Given Montelukast Sodium (Singulair -) 10 mg PO HS [facility] Last Admin: 03/10/17 21:14 Dose: 10 mg Morphine Sulfate (Ms Contin -) 15 mg PO BID [facility] Last Admin: 03/11/17 09:32 Dose: 15 mg Pantoprazole Sodium (Protonix -) 40 mg PO BID [facility] Last Admin: 03/11/17 09:32 Dose: 40 mg Polyethylene Glycol (Miralax (For Daily Use) -) 17 gm PO DAILY [facility] Last Admin: 03/11/17 09:33 Dose: Not Given Prednisone (Deltasone -) 60 mg PO DAILY [facility] Last Admin: 03/11/17 09:32 Dose: 60 mg Pregabalin (Lyrica -) 75 mg PO BID [facility] Last Admin: 03/11/17 09:32 Dose: 75 mg Tiotropium [place] (Spiriva -) 1 puff IH DAILY [facility] Last Admin: 03/11/17 09:33 Dose: 1 puff # dyspnea multi-factorial exacerbation COPD? / advanced Sarcoid / diastolic HF? / pHTN / GERD O2 dependant Steroids now PO & inhaled /nebulizer pulmonary consult appreciated follow repeat CXR follow daily weight and BUN /Cr on daily diuretic --now PO C/S if febrile -- pte with hx of extensive ABX allergies avoid emperic tx unless febrile # Sarcoid Cardiac -- hx VT >>AICD Pulmonary -- O2 dependant will need lifelong PO steroids # COPD continue treatment as above # DM II Insulin with sliding scale increased FS due to IV steroids will adjust basal insulin # HTN / Lupus / Hep C / hx DVT on a/c / chronic back pain / depression continue current out patient medications patient now on PO meds and remains stable discussed d/c with patient - to return to [facility] for safe d/c although she states would rather be home but understands will arrange for D/C back to [facility] today or in am Problem List - Problems (1) COPD exacerbation Code(s): J44.1 - CHRONIC OBSTRUCTIVE PULMONARY DISEASE W (ACUTE) EXACERBATION (2) Sarcoidosis of lung Code(s): D86.0 - SARCOIDOSIS OF LUNG (3) Diastolic CHF Code(s): I50.30 - UNSPECIFIED DIASTOLIC (CONGESTIVE) HEART FAILURE Qualifiers: Congestive heart failure chronicity: unspecified congestive heart failure chronicity Qualified Code(s): I50.30 - Unspecified diastolic (congestive) heart failure (4) IDDM (insulin dependent diabetes mellitus) Code(s): E11.9 - TYPE 2 DIABETES MELLITUS WITHOUT COMPLICATIONS; Z79.4 - RETIREMENT (CURRENT) USE OF INSULIN (5) Allergy to multiple antibiotics Code(s): Z88.1 - ALLERGY STATUS TO OTHER ANTIBIOTIC AGENTS STATUS (6) COPD (chronic obstructive pulmonary disease) Code(s): J44.9 - CHRONIC OBSTRUCTIVE PULMONARY DISEASE, UNSPECIFIED Qualifiers: COPD type: COPD with acute exacerbation Qualified Code(s): J44.1 - Chronic obstructive pulmonary disease with (acute) exacerbation (7) Obstructive sleep apnea Code(s): G47.33 - OBSTRUCTIVE SLEEP APNEA (ADULT) (PEDIATRIC) (8) SOB (shortness of breath) Code(s): R06.02 - SHORTNESS OF BREATH (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
--- NOTE | 2017-03-11 14:11 | DS ---
Physical Examination Vital Signs: Vital Signs Temperature 97.5 F L 03/11/17 13:51 Pulse Rate 118 H 03/11/17 13:51 Respiratory Rate 20 03/11/17 13:51 Blood Pressure 135/75 03/11/17 13:51 O2 Sat by Pulse Oximetry (%) 95 03/11/17 11:10 Findings/Remarks: 62 y/o f resides @ [facility] with PMH of HTN, pHTN, HFpEF, Cardiac and Pulmonary Sarcoid, hx of VT s/p ICD,DM II, Lupus, hx of DVT (apixaban), Hep C, Gerd, Chronic back pain (back surgery s/p revision and s/p Morphine pump 2012 - nonfunctioning currently), COPD, O2 dependant (3-4 Lpm), s/p recent hospitalization for septic shock and acute respiratory failure requiring intubation-- found to have PNA treated for total of 17 days with Aztreonam, and transfered to [facility] for continued rehab. She was transferred to ED with hx of several days of increased dyspnea, cough along with increased LE edema. She was treated with PO diuretics at [facility] with no significant improvement, she reports "gets worse" at night. She denied recent fevers, chills, headache or dizziness. She denies recent nausea, vomit, diarrhea or constipation. She denies recent dysuria, frequency, urgency or hematuria. She denies recent chest pain. During hospital stay pt was treated with 2days of IV steroids/ nebulizer txs / remains on O2-- she improved but still with c/o coughing which she associates with exacerbation of "lung problem". Pulmonary consult and follow up obtained, recommendations appreciated. She was treated for fluid overload with IV lasix but had no significant change in weight or renal function during her stay-- doubt she was in CHF: clinically more c/w exacerbation of COPD / Sarcoid -- Patient started on PO steroid this am --due to poor IV access--She has remained stable and continues to improve. I discussed d/c back to [facility] with her this afternoon, although she would rather go home, understands safer for her to return to [facility]. Discussed arrangements for d/c today or early am. Constitutional: Yes: Well Nourished, No Distress, Calm Eyes: Yes: Conjunctiva Clear HENT: Yes: WNL Neck: Yes: WNL Cardiovascular: Yes: WNL, Regular Rate and Rhythm Respiratory: Yes: On Nasal O2, Rhonchi (bilateral), Wheezes (occasional) Gastrointestinal: Yes: Normal Bowel Sounds, Soft, Abdomen, Obese Renal/: Yes: CVA Tenderness - Left, CVA Tenderness - Right Breast(s): Yes: WNL Musculoskeletal: Yes: Back Pain Extremities: No: Calf Tenderness, Cyanosis, Deformity Edema: LLE: Trace, RLE: Trace Peripheral Pulses: Left Radial: 1+, Right Radial: 1+, Left Doralis Pedis: 1+, Right Dorsalis Pedis: 1+, Left Femoral: 1+, Right Femoral: 1+ Integumentary: Yes: WNL, Pressure Ulcer Neurological: Yes: Alert, Oriented Psychiatric: Yes: Alert, Oriented Labs: CBC, BMP 03/11/17 06:45 03/11/17 06:45 Discharge Summary Reason For Visit: OBSTRUCTIVE SLEEP APNEA SYNDROME Current Active Problems Acute on chronic respiratory failure with hypoxia and hypercapnia (Acute) COPD exacerbation (Acute) Diastolic CHF (Chronic) IDDM (insulin dependent diabetes mellitus) (Chronic) Condition: Improved - Instructions Referrals: Whit Fuchs MD [Primary Care Provider] - Disposition: [facility] - Home Medications Comprehensive Discharge Medication List: Ambulatory Orders Albuterol 0.083% Nebulizer Gisela [Ventolin 0.083% Nebulizer Soln -] 1 neb NEB Q4H 03/10/17 Furosemide [Lasix] 20 mg PO DAILY 03/10/17 Montelukast Na [Singulair -] 10 mg PO HS 03/10/17 Albuterol 2.5/Ipratropium 0.5 [Duoneb -] 1 amp NEB Q4H PRN amp 03/11/17 Albuterol 2.5/Ipratropium 0.5 [Duoneb -] 1 amp NEB QIDR amp 03/11/17 Apixaban [Eliquis -] 5 mg PO BID 30 Days #60 tablet 03/11/17 Atorvastatin Ca [Lipitor] 10 mg PO HS tablet 03/11/17 Docusate Sodium [Colace -] 100 mg PO BID capsule 03/11/17 Ferrous Sulfate [Feosol] 325 mg PO BID ud 03/11/17 Furosemide [Lasix -] 20 mg PO DAILY tablet 03/11/17 Lisinopril [Prinivil] 10 mg PO DAILY tablet 03/11/17 Mag Hydrox/Al Hydrox/Simeth [Mylanta Oral Suspension -] 30 ml PO QID PRN cup Mirtazapine [Remeron -] 15 mg PO HS tablet 03/11/17 Montelukast Na [Singulair -] 10 mg PO HS tablet 03/11/17 Morphine *Sr* [Ms Contin -] 15 mg PO BID 7 Days #14 tablet.sa MDD 30 03/11/17 Polyethylene Glycol 3350 [Miralax 119 gm Btl -] 17 gm PO DAILY bottle 03/11/17 Prednisone [Deltasone -] 60 mg PO DAILY tablet 03/11/17 Pregabalin [Lyrica -] 75 mg PO BID 7 Days #14 capsule MDD 150mg 03/11/17
[2017-03-11] MEDS: ATORVASTATIN CA 10 MG TABLET (FP) PO SCH (21:25)
[2017-03-11] MEDS: MIRTAZAPINE 15 MG TABLET (FP) PO SCH (21:25)
[2017-03-11] MEDS: MONTELUKAST NA 10 MG TABLET PO SCH (21:26)
[2017-03-12] MEDS: guaiFENesin/D-METHORPHAN HB 10 ML UNIT-DOSE CUPS PO PRN (00:59)
[2017-03-12] MEDS: ALBUTEROL SO4 2.5/IPRATROPIUM 0.5 INH SOL 3 ML VIAL.NEB. NEB SCH ×5 (06:04→23:36)
[2017-03-12] MEDS: INSULIN SLIDING SCALE (NOVOLOG) 1 VIAL SQ SCH ×4 (06:10→21:32)
[2017-03-12] MEDS: INSULIN DETEMIR 100 UNITS/ML MDV SQ SCH ×2 (06:12→21:31)
[2017-03-12] MEDS: ALBUTEROL SO4 2.5/IPRATROPIUM 0.5 INH SOL 3 ML VIAL.NEB. NEB PRN (07:35)
[2017-03-12] MEDS ORDERED: PT OWN MED DRAWER 7, Y5N ONE ×2 (07:54→09:17)
[2017-03-12] MEDS: PANTOPRAZOLE 40 MG TABLET (FP) PO SCH ×3 (07:58→21:29)
[2017-03-12] MEDS ORDERED: MAG HYDROX/AL HYDROX/SIMETH 30 ML UNIT-DOSE CUP PO ONE (09:00)
[2017-03-12] MEDS: POLYETHYLENE GLYCOL 3350 119 GM BTL PO SCH (09:19)
[2017-03-12] MEDS: APIXABAN 5 MG TABLET PO SCH ×2 (09:19→21:32)
[2017-03-12] MEDS: DOCUSATE SODIUM 100 MG CAPSULE (FP) PO SCH ×2 (09:19→21:28)
[2017-03-12] MEDS: LISINOPRIL 10 MG TABLET (FP) PO SCH (09:19)
[2017-03-12] MEDS: morphine SO4 SUSTAINED ACTING 15 MG TABLET.SA PO SCH ×2 (09:19→21:28)
[2017-03-12] MEDS: predniSONE 20 MG TABLET (UD) PO SCH (09:19)
[2017-03-12] MEDS: FUROSEMIDE 20 MG TABLET (FP) PO SCH (09:19)
[2017-03-12] MEDS: FERROUS SO4 325 MG TABLET (FP) PO SCH ×2 (09:19→21:28)
[2017-03-12] MEDS: PREGABALIN 75 MG CAPSULE PO SCH ×2 (09:19→21:29)
[2017-03-12] MEDS ORDERED: ALBUTEROL SO4 2.5/IPRATROPIUM 0.5 INH SOL 3 ML VIAL.NEB. NEB PRN (10:22)
--- NOTE | 2017-03-12 14:12 | PN ---
Progress Note, Physician History of Present Illness: pulmonary c/o increased sob,-cp,+cough yellow sputum - Current Medication List Current Medications: Active Medications Al Hydroxide/Mg Hydroxide (Mylanta Oral Suspension -) 30 ml PO QID PRN PRN Reason: INDIGESTION Albuterol/Ipratropium (Duoneb -) 1 amp NEB Q4HPO [facility] Albuterol/Ipratropium (Duoneb -) 1 amp NEB Q2H PRN PRN Reason: SHORTNESS OF BREATH Apixaban (Eliquis -) 5 mg PO BID [facility] Last Admin: 03/12/17 09:19 Dose: 5 mg Atorvastatin Calcium (Lipitor -) 10 mg PO HS [facility] Last Admin: 03/11/17 21:25 Dose: 10 mg Docusate Sodium (Colace -) 100 mg PO BID [facility] Last Admin: 03/12/17 09:19 Dose: 100 mg Ferrous Sulfate (Feosol -) 325 mg PO BID [facility] Last Admin: 03/12/17 09:19 Dose: 325 mg Furosemide (Lasix -) 20 mg PO DAILY [facility] Last Admin: 03/12/17 09:19 Dose: 20 mg Guaifenesin (Robitussin Dm -) 15 ml PO Q4H PRN PRN Reason: COUGH Last Admin: 03/12/17 00:59 Dose: 15 ml Insulin Aspart (Novolog Vial Sliding Scale -) 1 vial SQ ACHS [facility] PRN Reason: Protocol Last Admin: 03/12/17 11:31 Dose: Not Given Insulin Detemir (Levemir Vial) 25 units SQ 0700,2200 [facility] Last Admin: 03/12/17 06:12 Dose: 25 units Lisinopril (Prinivil) 10 mg PO DAILY [facility] Last Admin: 03/12/17 09:19 Dose: 10 mg Mirtazapine (Remeron -) 15 mg PO HS [facility] Last Admin: 03/11/17 21:25 Dose: 15 mg Montelukast Sodium (Singulair -) 10 mg PO HS [facility] Last Admin: 03/11/17 21:26 Dose: 10 mg Morphine Sulfate (Ms Contin -) 15 mg PO BID [facility] Last Admin: 03/12/17 09:19 Dose: 15 mg Pantoprazole Sodium (Protonix -) 40 mg PO BID [facility] Last Admin: 03/12/17 09:19 Dose: Not Given Polyethylene Glycol (Miralax (For Daily Use) -) 17 gm PO DAILY [facility] Last Admin: 03/12/17 09:19 Dose: Not Given Prednisone (Deltasone -) 60 mg PO DAILY [facility] Last Admin: 03/12/17 09:19 Dose: 60 mg Pregabalin (Lyrica -) 75 mg PO BID [facility] Last Admin: 03/12/17 09:19 Dose: 75 mg - Objective Vital Signs: Vital Signs Temperature 97.4 F L 03/12/17 09:00 Pulse Rate 135 H 03/12/17 09:00 Respiratory Rate 22 03/12/17 09:00 Blood Pressure 146/91 03/12/17 09:00 O2 Sat by Pulse Oximetry (%) 92 L 03/12/17 09:00 Constitutional: Yes: Well Nourished, Calm Eyes: Yes: WNL HENT: Yes: WNL Neck: Yes: WNL Cardiovascular: Yes: Regular Rate and Rhythm, S1, S2 Respiratory: Yes: Rales (maribel crackles) Gastrointestinal: Yes: Normal Bowel Sounds, Soft Extremities: Yes: WNL Edema: Yes Labs: CBC, BMP Problem List - Problems (1) Acute on chronic respiratory failure with hypoxia and hypercapnia Code(s): J96.21 - ACUTE AND CHRONIC RESPIRATORY FAILURE WITH HYPOXIA; J96.22 - ACUTE AND CHRONIC RESPIRATORY FAILURE WITH HYPERCAPNIA (2) COPD exacerbation Code(s): J44.1 - CHRONIC OBSTRUCTIVE PULMONARY DISEASE W (ACUTE) EXACERBATION (3) Diastolic CHF Code(s): I50.30 - UNSPECIFIED DIASTOLIC (CONGESTIVE) HEART FAILURE Qualifiers: Congestive heart failure chronicity: unspecified congestive heart failure chronicity Qualified Code(s): I50.30 - Unspecified diastolic (congestive) heart failure (4) IDDM (insulin dependent diabetes mellitus) Code(s): E11.9 - TYPE 2 DIABETES MELLITUS WITHOUT COMPLICATIONS; Z79.4 - HALFWAY (CURRENT) USE OF INSULIN (5) CHF (congestive heart failure) Code(s): I50.9 - HEART FAILURE, UNSPECIFIED Qualifiers: Congestive heart failure type: unspecified congestive heart failure type Congestive heart failure chronicity: acute on chronic Qualified Code(s): I50.9 - Heart failure, unspecified (6) COPD (chronic obstructive pulmonary disease) Code(s): J44.9 - CHRONIC OBSTRUCTIVE PULMONARY DISEASE, UNSPECIFIED Qualifiers: COPD type: COPD with acute exacerbation Qualified Code(s): J44.1 - Chronic obstructive pulmonary disease with (acute) exacerbation (7) ICD (implantable cardioverter-defibrillator), dual, in situ Code(s): Z95.810 - PRESENCE OF AUTOMATIC (IMPLANTABLE) CARDIAC DEFIBRILLATOR (8) Obstructive sleep apnea Code(s): G47.33 - OBSTRUCTIVE SLEEP APNEA (ADULT) (PEDIATRIC) (9) Respiratory failure Code(s): J96.90 - RESPIRATORY FAILURE, UNSP, UNSP W HYPOXIA OR HYPERCAPNIA (10) SOB (shortness of breath) Code(s): R06.02 - SHORTNESS OF BREATH (11) Sarcoidosis of lung Code(s): D86.0 - SARCOIDOSIS OF LUNG (12) Asthma Code(s): J45.909 - UNSPECIFIED ASTHMA, UNCOMPLICATED (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 Assessment/Plan IMP ACUTE ON CHRONIC HYPOXEMIC/HYPERCAPNEIC RESPIRATORY FAILURE ADVANCED SARCOIDOSIS PULMONARY/CARDIAC SARCOID COPD/ASTHMA CHF S/P AICD PULMONARY HTN DM HTN OSAS GERD H/O DVT PLAN IV STEROIDS INHALED BRONCHODILATORS O2 BIPAP AT NIGHT AND PRN LASIX DAILY WTS AC ABG DR EUBANKS Problem List - Problems (1) Acute on chronic respiratory failure with hypoxia and hypercapnia Code(s): J96.21 - ACUTE AND CHRONIC RESPIRATORY FAILURE WITH HYPOXIA; J96.22 - ACUTE AND CHRONIC RESPIRATORY FAILURE WITH HYPERCAPNIA (2) COPD exacerbation Code(s): J44.1 - CHRONIC OBSTRUCTIVE PULMONARY DISEASE W (ACUTE) EXACERBATION (3) Diastolic CHF Code(s): I50.30 - UNSPECIFIED DIASTOLIC (CONGESTIVE) HEART FAILURE Qualifiers: Congestive heart failure chronicity: unspecified congestive heart failure chronicity Qualified Code(s): I50.30 - Unspecified diastolic (congestive) heart failure (4) IDDM (insulin dependent diabetes mellitus) Code(s): E11.9 - TYPE 2 DIABETES MELLITUS WITHOUT COMPLICATIONS; Z79.4 - LAPEL [employer]ER (CURRENT) USE OF INSULIN (5) CHF (congestive heart failure) Code(s): I50.9 - HEART FAILURE, UNSPECIFIED Qualifiers: Congestive heart failure type: unspecified congestive heart failure type Congestive heart failure chronicity: acute on chronic Qualified Code(s): I50.9 - Heart failure, unspecified (6) COPD (chronic obstructive pulmonary disease) Code(s): J44.9 - CHRONIC OBSTRUCTIVE PULMONARY DISEASE, UNSPECIFIED Qualifiers: COPD type: COPD with acute exacerbation Qualified Code(s): J44.1 - Chronic obstructive pulmonary disease with (acute) exacerbation (7) ICD (implantable cardioverter-defibrillator), dual, in situ Code(s): Z95.810 - PRESENCE OF AUTOMATIC (IMPLANTABLE) CARDIAC DEFIBRILLATOR (8) Obstructive sleep apnea Code(s): G47.33 - OBSTRUCTIVE SLEEP APNEA (ADULT) (PEDIATRIC) (9) Respiratory failure Code(s): J96.90 - RESPIRATORY FAILURE, UNSP, UNSP W HYPOXIA OR HYPERCAPNIA (10) SOB (shortness of breath) Code(s): R06.02 - SHORTNESS OF BREATH (11) Sarcoidosis of lung Code(s): D86.0 - SARCOIDOSIS OF LUNG (12) Asthma Code(s): J45.909 - UNSPECIFIED ASTHMA, UNCOMPLICATED (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
[2017-03-12 14:28] LABS: ARTERIAL BLD GAS O2 SATURATION 94.7 % (90-98.9); ARTERIAL BLOOD GAS BASE EXCESS 12.4 meq/l (-2-2); ARTERIAL BLOOD GAS HCO3 38.5 meq/L (22-26); ARTERIAL BLOOD GAS PO2 74.3 mmHg (80-100); ARTERIAL BLOOD GAS pH 7.43 (7.35-7.45)
[2017-03-12 14:30] LABS: ALLENS TEST POSITIVE; ART PUNCT SITE LEFT RADIAL; LPM/O2% 3; PT. ON O2? YES; TYPE OF O2 NASAL CANNULA
[2017-03-12] MEDS ORDERED: INSULIN (NOVOLOG) ASPART 100 UNITS/ML 10ML VIAL ONE ×2 (18:53→21:30)
[2017-03-12] MEDS: MONTELUKAST NA 10 MG TABLET PO SCH (21:28)
[2017-03-12] MEDS: ATORVASTATIN CA 10 MG TABLET (FP) PO SCH (21:28)
--- NOTE | 2017-03-12 21:31 | PN ---
Progress Note (short form) - Note Progress Note: sitting in bed better over the day today neb tx changed this am to Q4H and q2PRN Vital Signs Period Temp Pulse Resp BP Sys/Londono Pulse Ox Last 24 Hr 97.3 F-98 F 92-119 18-20 109-126/56-100 94-100 Vital Signs Period Temp Pulse Resp BP Sys/Londono Pulse Ox Last 24 Hr 97.4 F-99.5 F 119-135 20-30 125-146/77-91 92-94 neck supple no JVD heart S1/S2 Lungs bilat rhonchi / no rales / wheezing left mid base abd soft non tender healed sacral decub / small stage II decubiti superior to rectum ext trace edema CBC, BMP 03/11/17 06:45 03/11/17 06:45 continue insulin coverage Active Medications Al Hydroxide/Mg Hydroxide (Mylanta Oral Suspension -) 30 ml PO QID PRN PRN Reason: INDIGESTION Albuterol/Ipratropium (Duoneb -) 1 amp NEB Q4HPO [facility] Last Admin: 03/12/17 18:15 Dose: 1 amp Albuterol/Ipratropium (Duoneb -) 1 amp NEB Q2H PRN PRN Reason: SHORTNESS OF BREATH Apixaban (Eliquis -) 5 mg PO BID [facility] Last Admin: 03/12/17 09:19 Dose: 5 mg Atorvastatin Calcium (Lipitor -) 10 mg PO HS [facility] Last Admin: 03/11/17 21:25 Dose: 10 mg Docusate Sodium (Colace -) 100 mg PO BID [facility] Last Admin: 03/12/17 09:19 Dose: 100 mg Ferrous Sulfate (Feosol -) 325 mg PO BID [facility] Last Admin: 03/12/17 09:19 Dose: 325 mg Furosemide (Lasix -) 20 mg PO DAILY [facility] Last Admin: 03/12/17 09:19 Dose: 20 mg Guaifenesin (Robitussin Dm -) 15 ml PO Q4H PRN PRN Reason: COUGH Last Admin: 03/12/17 00:59 Dose: 15 ml Insulin Aspart (Novolog Vial Sliding Scale -) 1 vial SQ ACHS [facility] PRN Reason: Protocol Last Admin: 03/12/17 16:31 Dose: 4 units Insulin Detemir (Levemir Vial) 25 units SQ 0700,2200 [facility] Last Admin: 03/12/17 06:12 Dose: 25 units Lisinopril (Prinivil) 10 mg PO DAILY [facility] Last Admin: 03/12/17 09:19 Dose: 10 mg Mirtazapine (Remeron -) 15 mg PO HS [facility] Last Admin: 03/11/17 21:25 Dose: 15 mg Montelukast Sodium (Singulair -) 10 mg PO HS [facility] Last Admin: 03/11/17 21:26 Dose: 10 mg Morphine Sulfate (Ms Contin -) 15 mg PO BID [facility] Last Admin: 03/12/17 09:19 Dose: 15 mg Pantoprazole Sodium (Protonix -) 40 mg PO BID [facility] Last Admin: 03/12/17 09:19 Dose: Not Given Polyethylene Glycol (Miralax (For Daily Use) -) 17 gm PO DAILY [facility] Last Admin: 03/12/17 09:19 Dose: Not Given Prednisone (Deltasone -) 60 mg PO DAILY [facility] Last Admin: 03/12/17 09:19 Dose: 60 mg Pregabalin (Lyrica -) 75 mg PO BID [facility] Last Admin: 03/12/17 09:19 Dose: 75 mg # dyspnea multi-factorial exacerbation COPD? / advanced Sarcoid / diastolic HF? / pHTN / GERD O2 dependant / increased Neb tx Steroids now PO & inhaled /nebulizer bipap at night and PRN pulmonary consult appreciated follow repeat CXR follow daily weight and BUN /Cr on daily diuretic --now PO C/S if febrile -- pte with hx of extensive ABX allergies avoid emperic tx unless febrile # Sarcoid Cardiac -- hx VT >>AICD Pulmonary -- O2 dependant will need lifelong PO steroids # COPD continue treatment as above # DM II Insulin with sliding scale increased FS due to IV steroids will adjust basal insulin # HTN / Lupus / Hep C / hx DVT on a/c / chronic back pain / depression continue current out patient medications patient now on PO meds and remains stable discussed d/c with patient - to return to [facility] for safe d/c although she states would rather be home but understands arrangements for D/C back to [facility] in place awaiting INSURANCE approval Problem List - Problems (1) COPD exacerbation Code(s): J44.1 - CHRONIC OBSTRUCTIVE PULMONARY DISEASE W (ACUTE) EXACERBATION (2) Sarcoidosis of lung Code(s): D86.0 - SARCOIDOSIS OF LUNG (3) Diastolic CHF Code(s): I50.30 - UNSPECIFIED DIASTOLIC (CONGESTIVE) HEART FAILURE Qualifiers: Congestive heart failure chronicity: unspecified congestive heart failure chronicity Qualified Code(s): I50.30 - Unspecified diastolic (congestive) heart failure (4) IDDM (insulin dependent diabetes mellitus) Code(s): E11.9 - TYPE 2 DIABETES MELLITUS WITHOUT COMPLICATIONS; Z79.4 - GROUP HOME (CURRENT) USE OF INSULIN (5) Allergy to multiple antibiotics Code(s): Z88.1 - ALLERGY STATUS TO OTHER ANTIBIOTIC AGENTS STATUS (6) COPD (chronic obstructive pulmonary disease) Code(s): J44.9 - CHRONIC OBSTRUCTIVE PULMONARY DISEASE, UNSPECIFIED Qualifiers: COPD type: COPD with acute exacerbation Qualified Code(s): J44.1 - Chronic obstructive pulmonary disease with (acute) exacerbation (7) Obstructive sleep apnea Code(s): G47.33 - OBSTRUCTIVE SLEEP APNEA (ADULT) (PEDIATRIC) (8) SOB (shortness of breath) Code(s): R06.02 - SHORTNESS OF BREATH (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
[2017-03-12] MEDS: MIRTAZAPINE 15 MG TABLET (FP) PO SCH (21:42)
[2017-03-13] MEDS: ALBUTEROL SO4 2.5/IPRATROPIUM 0.5 INH SOL 3 ML VIAL.NEB. NEB SCH ×6 (02:20→22:46)
[2017-03-13] MEDS: INSULIN DETEMIR 100 UNITS/ML MDV SQ SCH ×2 (06:26→21:20)
[2017-03-13] MEDS: INSULIN SLIDING SCALE (NOVOLOG) 1 VIAL SQ SCH ×4 (06:27→21:20)
[2017-03-13] MEDS ORDERED: INSULIN (NOVOLOG) ASPART 100 UNITS/ML 10ML VIAL ONE (06:58)
[2017-03-13 09:12] LABS: MCH 26.6 pg (25.7-33.7); MCHC 31.2 g/dl (32.0-36.0); MEAN CELL VOLUME 85.4 fl (80-96); MEAN PLT VOLUME 7.6 fl (7.5-11.1); PLATELET COUNT 458 K/MM3 (134-434); WHITE BLOOD COUNT 15.1 K/mm3 (4.0-10.0)
[2017-03-13 09:22] LABS: ANION GAP 5 (8-16); CALCIUM 8.2 mg/dL (8.5-10.1); CO2 39 mmol/L (21-32); CREATININE 0.7 mg/dL (0.55-1.02); GLUCOSE,RANDOM 151 mg/dL (74-106); MAGNESIUM 1.6 mg/dL (1.8-2.4)
[2017-03-13] MEDS ORDERED: PT OWN MED DRAWER 7, Y5N ONE (10:08)
[2017-03-13] MEDS: morphine SO4 SUSTAINED ACTING 15 MG TABLET.SA PO SCH ×3 (10:11→21:17)
[2017-03-13] MEDS: PREGABALIN 75 MG CAPSULE PO SCH ×3 (10:11→21:17)
[2017-03-13] MEDS: PANTOPRAZOLE 40 MG TABLET (FP) PO SCH ×3 (10:11→21:17)
[2017-03-13] MEDS: predniSONE 20 MG TABLET (UD) PO SCH (10:12)
[2017-03-13] MEDS: APIXABAN 5 MG TABLET PO SCH ×2 (10:12→21:20)
[2017-03-13] MEDS: FERROUS SO4 325 MG TABLET (FP) PO SCH ×2 (10:12→21:18)
[2017-03-13] MEDS: DOCUSATE SODIUM 100 MG CAPSULE (FP) PO SCH ×2 (10:12→21:17)
[2017-03-13] MEDS: POLYETHYLENE GLYCOL 3350 119 GM BTL PO SCH (10:13)
[2017-03-13] MEDS: FUROSEMIDE 20 MG TABLET (FP) PO SCH (10:13)
[2017-03-13] MEDS: LISINOPRIL 10 MG TABLET (FP) PO SCH (10:13)
--- NOTE | 2017-03-13 13:40 | PN ---
Progress Note, Physician History of Present Illness: pulmonary alert,c/o sob although appears comfortable,-resp distress - Current Medication List Current Medications: Active Medications Al Hydroxide/Mg Hydroxide (Mylanta Oral Suspension -) 30 ml PO QID PRN PRN Reason: INDIGESTION Albuterol/Ipratropium (Duoneb -) 1 amp NEB Q4HPO [facility] Last Admin: 03/13/17 07:29 Dose: 1 amp Albuterol/Ipratropium (Duoneb -) 1 amp NEB Q2H PRN PRN Reason: SHORTNESS OF BREATH Apixaban (Eliquis -) 5 mg PO BID [facility] Last Admin: 03/13/17 10:12 Dose: 5 mg Atorvastatin Calcium (Lipitor -) 10 mg PO HS [facility] Last Admin: 03/12/17 21:28 Dose: 10 mg Docusate Sodium (Colace -) 100 mg PO BID [facility] Last Admin: 03/13/17 10:12 Dose: 100 mg Ferrous Sulfate (Feosol -) 325 mg PO BID [facility] Last Admin: 03/13/17 10:12 Dose: 325 mg Furosemide (Lasix -) 20 mg PO DAILY [facility] Last Admin: 03/13/17 10:13 Dose: 20 mg Guaifenesin (Robitussin Dm -) 15 ml PO Q4H PRN PRN Reason: COUGH Last Admin: 03/12/17 00:59 Dose: 15 ml Insulin Aspart (Novolog Vial Sliding Scale -) 1 vial SQ ACHS [facility] PRN Reason: Protocol Last Admin: 03/13/17 11:45 Dose: 2 units Insulin Detemir (Levemir Vial) 25 units SQ 0700,2200 [facility] Last Admin: 03/13/17 06:26 Dose: 25 units Lisinopril (Prinivil) 10 mg PO DAILY [facility] Last Admin: 03/13/17 10:13 Dose: 10 mg Mirtazapine (Remeron -) 15 mg PO HS [facility] Last Admin: 03/12/17 21:42 Dose: Not Given Montelukast Sodium (Singulair -) 10 mg PO HS [facility] Last Admin: 03/12/17 21:28 Dose: 10 mg Morphine Sulfate (Ms Contin -) 15 mg PO BID [facility] Last Admin: 03/13/17 10:11 Dose: 15 mg Pantoprazole Sodium (Protonix -) 40 mg PO BID [facility] Last Admin: 03/13/17 10:11 Dose: 40 mg Polyethylene Glycol (Miralax (For Daily Use) -) 17 gm PO DAILY [facility] Last Admin: 03/13/17 10:13 Dose: Not Given Prednisone (Deltasone -) 60 mg PO DAILY [facility] Last Admin: 03/13/17 10:12 Dose: 60 mg Pregabalin (Lyrica -) 75 mg PO BID [facility] Last Admin: 03/13/17 10:11 Dose: 75 mg - Objective Vital Signs: Vital Signs Temperature 98.4 F 03/13/17 05:00 Pulse Rate 98 H 03/13/17 05:00 Respiratory Rate 24 03/13/17 05:00 Blood Pressure 117/76 03/13/17 05:00 O2 Sat by Pulse Oximetry (%) 96 03/12/17 21:00 Constitutional: Yes: Well Nourished, Calm Eyes: Yes: WNL HENT: Yes: WNL Neck: Yes: WNL Cardiovascular: Yes: Regular Rate and Rhythm, S1, S2 Respiratory: Yes: Rales (maribel crackles) Gastrointestinal: Yes: Normal Bowel Sounds, Soft Extremities: Yes: WNL Edema: Yes Labs: CBC, BMP 03/13/17 08:20 03/13/17 08:20 INR, PTT INR 1.70 (0.82-1.09) H D 03/09/17 21:38 Laboratory Tests 03/12/17 14:20 ABG pH 7.43 ABG pCO2 at Pt Temp 58.8 H ABG pO2 at Pt Temp 74.3 L ABG HCO3 38.5 H ABG O2 Sat (Measured) 94.7 Oxygen Flow Rate 3 Problem List - Problems (1) Acute on chronic respiratory failure with hypoxia and hypercapnia Code(s): J96.21 - ACUTE AND CHRONIC RESPIRATORY FAILURE WITH HYPOXIA; J96.22 - ACUTE AND CHRONIC RESPIRATORY FAILURE WITH HYPERCAPNIA (2) COPD exacerbation Code(s): J44.1 - CHRONIC OBSTRUCTIVE PULMONARY DISEASE W (ACUTE) EXACERBATION (3) Diastolic CHF Code(s): I50.30 - UNSPECIFIED DIASTOLIC (CONGESTIVE) HEART FAILURE Qualifiers: Congestive heart failure chronicity: unspecified congestive heart failure chronicity Qualified Code(s): I50.30 - Unspecified diastolic (congestive) heart failure (4) IDDM (insulin dependent diabetes mellitus) Code(s): E11.9 - TYPE 2 DIABETES MELLITUS WITHOUT COMPLICATIONS; Z79.4 - [employer] (CURRENT) USE OF INSULIN (5) CHF (congestive heart failure) Code(s): I50.9 - HEART FAILURE, UNSPECIFIED Qualifiers: Congestive heart failure type: unspecified congestive heart failure type Congestive heart failure chronicity: acute on chronic Qualified Code(s): I50.9 - Heart failure, unspecified (6) COPD (chronic obstructive pulmonary disease) Code(s): J44.9 - CHRONIC OBSTRUCTIVE PULMONARY DISEASE, UNSPECIFIED Qualifiers: COPD type: COPD with acute exacerbation Qualified Code(s): J44.1 - Chronic obstructive pulmonary disease with (acute) exacerbation (7) ICD (implantable cardioverter-defibrillator), dual, in situ Code(s): Z95.810 - PRESENCE OF AUTOMATIC (IMPLANTABLE) CARDIAC DEFIBRILLATOR (8) Obstructive sleep apnea Code(s): G47.33 - OBSTRUCTIVE SLEEP APNEA (ADULT) (PEDIATRIC) (9) Respiratory failure Code(s): J96.90 - RESPIRATORY FAILURE, UNSP, UNSP W HYPOXIA OR HYPERCAPNIA (10) SOB (shortness of breath) Code(s): R06.02 - SHORTNESS OF BREATH (11) Sarcoidosis of lung Code(s): D86.0 - SARCOIDOSIS OF LUNG (12) Asthma Code(s): J45.909 - UNSPECIFIED ASTHMA, UNCOMPLICATED (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 Assessment/Plan IMP ACUTE ON CHRONIC HYPOXEMIC/HYPERCAPNEIC RESPIRATORY FAILURE ADVANCED SARCOIDOSIS PULMONARY/CARDIAC SARCOID COPD/ASTHMA CHF S/P AICD PULMONARY HTN DM HTN OSAS GERD H/O DVT PLAN PREDNISONE 60mg INHALED BRONCHODILATORS O2 BIPAP AT NIGHT AND PRN LASIX DAILY WTS AC DR EUBANKS Problem List - Problems (1) Acute on chronic respiratory failure with hypoxia and hypercapnia Code(s): J96.21 - ACUTE AND CHRONIC RESPIRATORY FAILURE WITH HYPOXIA; J96.22 - ACUTE AND CHRONIC RESPIRATORY FAILURE WITH HYPERCAPNIA (2) COPD exacerbation Code(s): J44.1 - CHRONIC OBSTRUCTIVE PULMONARY DISEASE W (ACUTE) EXACERBATION (3) Diastolic CHF Code(s): I50.30 - UNSPECIFIED DIASTOLIC (CONGESTIVE) HEART FAILURE Qualifiers: Congestive heart failure chronicity: unspecified congestive heart failure chronicity Qualified Code(s): I50.30 - Unspecified diastolic (congestive) heart failure (4) IDDM (insulin dependent diabetes mellitus) Code(s): E11.9 - TYPE 2 DIABETES MELLITUS WITHOUT COMPLICATIONS; Z79.4 - LONGTERM (CURRENT) USE OF INSULIN (5) CHF (congestive heart failure) Code(s): I50.9 - HEART FAILURE, UNSPECIFIED Qualifiers: Congestive heart failure type: unspecified congestive heart failure type Congestive heart failure chronicity: acute on chronic Qualified Code(s): I50.9 - Heart failure, unspecified (6) COPD (chronic obstructive pulmonary disease) Code(s): J44.9 - CHRONIC OBSTRUCTIVE PULMONARY DISEASE, UNSPECIFIED Qualifiers: COPD type: COPD with acute exacerbation Qualified Code(s): J44.1 - Chronic obstructive pulmonary disease with (acute) exacerbation (7) ICD (implantable cardioverter-defibrillator), dual, in situ Code(s): Z95.810 - PRESENCE OF AUTOMATIC (IMPLANTABLE) CARDIAC DEFIBRILLATOR (8) Obstructive sleep apnea Code(s): G47.33 - OBSTRUCTIVE SLEEP APNEA (ADULT) (PEDIATRIC) (9) Respiratory failure Code(s): J96.90 - RESPIRATORY FAILURE, UNSP, UNSP W HYPOXIA OR HYPERCAPNIA (10) SOB (shortness of breath) Code(s): R06.02 - SHORTNESS OF BREATH (11) Sarcoidosis of lung Code(s): D86.0 - SARCOIDOSIS OF LUNG (12) Asthma Code(s): J45.909 - UNSPECIFIED ASTHMA, UNCOMPLICATED (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
[2017-03-13 15:51] LABS: TOTAL CELLS COUNTED 100
[2017-03-13 15:52] LABS: METAMYELOCYTE 1 % (0-2); MYELOCYTE 1 % (0-2); PLATELET ESTIMATE ADEQUATE
[2017-03-13] MEDS: ATORVASTATIN CA 10 MG TABLET (FP) PO SCH ×2 (21:15→21:17)
[2017-03-13] MEDS: MONTELUKAST NA 10 MG TABLET PO SCH ×2 (21:15→21:18)
[2017-03-13] MEDS: MIRTAZAPINE 15 MG TABLET (FP) PO SCH (21:21)
[2017-03-13] MEDS ORDERED: MAGNESIUM SULF 50% (8.12 MEQ/2 ML-1 GM VIAL) IVPB ONE (23:07)
[2017-03-13] MEDS ORDERED: POTASSIUM CHLORIDE ORAL LIQUID 20 MEQ/15 ML PO ONE (23:08)
[2017-03-13] MEDS ORDERED: MAGNESIUM SULF 50% (8.12 MEQ/2 ML-1 GM VIAL) IM ONE (23:45)
--- NOTE | 2017-03-14 00:12 | PN ---
Progress Note (short form) - Note Progress Note: more comfortable O2 in place dyspneic at baseline awaiting INS approval for [facility] transfer Vital Signs Period Temp Pulse Resp BP Sys/Londono Pulse Ox Last 24 Hr 97.3 F-98 F 92-119 18-20 109-126/56-100 94-100 Vital Signs Period Temp Pulse Resp BP Sys/Londono Pulse Ox Last 24 Hr 97.4 F-99.5 F 119-135 20-30 125-146/77-91 92-94 neck supple no JVD heart S1/S2 Lungs bilat rhonchi / no rales / wheezing left mid base abd soft non tender healed sacral decub / small stage II decubiti superior to rectum ext trace edema CBC, BMP 03/13/17 08:20 03/13/17 08:20 hypomag continue insulin coverage Active Medications Al Hydroxide/Mg Hydroxide (Mylanta Oral Suspension -) 30 ml PO QID PRN PRN Reason: INDIGESTION Albuterol/Ipratropium (Duoneb -) 1 amp NEB Q4HPO [facility] Last Admin: 03/13/17 22:46 Dose: 1 amp Albuterol/Ipratropium (Duoneb -) 1 amp NEB Q2H PRN PRN Reason: SHORTNESS OF BREATH Apixaban (Eliquis -) 5 mg PO BID [facility] Last Admin: 03/13/17 21:20 Dose: 5 mg Atorvastatin Calcium (Lipitor -) 10 mg PO HS [facility] Last Admin: 03/13/17 21:17 Dose: 10 mg Docusate Sodium (Colace -) 100 mg PO BID [facility] Last Admin: 03/13/17 21:17 Dose: 100 mg Ferrous Sulfate (Feosol -) 325 mg PO BID [facility] Last Admin: 03/13/17 21:18 Dose: 325 mg Furosemide (Lasix -) 20 mg PO DAILY [facility] Last Admin: 03/13/17 10:13 Dose: 20 mg Guaifenesin (Robitussin Dm -) 15 ml PO Q4H PRN PRN Reason: COUGH Last Admin: 03/12/17 00:59 Dose: 15 ml Insulin Aspart (Novolog Vial Sliding Scale -) 1 vial SQ ACHS [facility] PRN Reason: Protocol Last Admin: 03/13/17 21:20 Dose: 6 units Insulin Detemir (Levemir Vial) 25 units SQ 0700,2200 [facility] Last Admin: 03/13/17 21:20 Dose: 25 units Lisinopril (Prinivil) 10 mg PO DAILY [facility] Last Admin: 03/13/17 10:13 Dose: 10 mg Mirtazapine (Remeron -) 15 mg PO HS [facility] Last Admin: 03/13/17 21:21 Dose: Not Given Montelukast Sodium (Singulair -) 10 mg PO HS [facility] Last Admin: 03/13/17 21:18 Dose: 10 mg Morphine Sulfate (Ms Contin -) 15 mg PO BID [facility] Last Admin: 03/13/17 21:17 Dose: 15 mg Pantoprazole Sodium (Protonix -) 40 mg PO BID [facility] Last Admin: 03/13/17 21:17 Dose: 40 mg Polyethylene Glycol (Miralax (For Daily Use) -) 17 gm PO DAILY [facility] Last Admin: 03/13/17 10:13 Dose: Not Given Prednisone (Deltasone -) 60 mg PO DAILY [facility] Last Admin: 03/13/17 10:12 Dose: 60 mg Pregabalin (Lyrica -) 75 mg PO BID [facility] Last Admin: 03/13/17 21:17 Dose: 75 mg # dyspnea multi-factorial COPD / advanced Sarcoid / diastolic HF / pHTN / GERD O2 dependant / increased Neb tx with improvement Steroids PO & inhaled /nebulizer Q4 bipap at night and PRN pulmonary consult appreciated follow repeat CXR follow daily weight and BUN /Cr on daily diuretic --now PO C/S if febrile -- pte with hx of extensive ABX allergies avoid emperic tx unless febrile # Sarcoid Cardiac -- hx VT >>AICD Pulmonary -- O2 dependant will need lifelong PO steroids # COPD continue treatment as above # DM II Insulin with sliding scale increased FS due to IV steroids will adjust basal insulin # HTN / Lupus / Hep C / hx DVT on a/c / chronic back pain / depression continue current out patient medications # electrolyte imbalance replace Mg / K follow labs patient now on PO meds and remains stable discussed d/c with patient - to return to [facility] for safe d/c although she states would rather be home but understands arrangements for D/C back to [facility] in place awaiting INSURANCE approval Problem List - Problems (1) COPD exacerbation Code(s): J44.1 - CHRONIC OBSTRUCTIVE PULMONARY DISEASE W (ACUTE) EXACERBATION (2) Sarcoidosis of lung Code(s): D86.0 - SARCOIDOSIS OF LUNG (3) Diastolic CHF Code(s): I50.30 - UNSPECIFIED DIASTOLIC (CONGESTIVE) HEART FAILURE Qualifiers: Congestive heart failure chronicity: unspecified congestive heart failure chronicity Qualified Code(s): I50.30 - Unspecified diastolic (congestive) heart failure (4) IDDM (insulin dependent diabetes mellitus) Code(s): E11.9 - TYPE 2 DIABETES MELLITUS WITHOUT COMPLICATIONS; Z79.4 - [facility] (CURRENT) USE OF INSULIN (5) Allergy to multiple antibiotics Code(s): Z88.1 - ALLERGY STATUS TO OTHER ANTIBIOTIC AGENTS STATUS (6) COPD (chronic obstructive pulmonary disease) Code(s): J44.9 - CHRONIC OBSTRUCTIVE PULMONARY DISEASE, UNSPECIFIED Qualifiers: COPD type: COPD with acute exacerbation Qualified Code(s): J44.1 - Chronic obstructive pulmonary disease with (acute) exacerbation (7) Obstructive sleep apnea Code(s): G47.33 - OBSTRUCTIVE SLEEP APNEA (ADULT) (PEDIATRIC) (8) SOB (shortness of breath) Code(s): R06.02 - SHORTNESS OF BREATH (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
[2017-03-14] MEDS: ALBUTEROL SO4 2.5/IPRATROPIUM 0.5 INH SOL 3 ML VIAL.NEB. NEB SCH ×6 (03:10→21:51)
[2017-03-14] MEDS: INSULIN SLIDING SCALE (NOVOLOG) 1 VIAL SQ SCH ×4 (06:20→21:09)
[2017-03-14] MEDS: INSULIN DETEMIR 100 UNITS/ML MDV SQ SCH ×3 (06:20→21:09)
[2017-03-14 09:16] LABS: ANION GAP 6 (8-16); CALCIUM 8.4 mg/dL (8.5-10.1); CO2 38 mmol/L (21-32); CREATININE 0.6 mg/dL (0.55-1.02); GLUCOSE,RANDOM 97 mg/dL (74-106); MAGNESIUM 2.4 mg/dL (1.8-2.4)
[2017-03-14] MEDS ORDERED: PT OWN MED DRAWER 7, Y5N ONE ×2 (10:18→21:01)
[2017-03-14] MEDS: predniSONE 20 MG TABLET (UD) PO SCH (10:19)
[2017-03-14] MEDS: DOCUSATE SODIUM 100 MG CAPSULE (FP) PO SCH ×2 (10:19→21:08)
[2017-03-14] MEDS: PREGABALIN 75 MG CAPSULE PO SCH ×2 (10:20→21:08)
[2017-03-14] MEDS: APIXABAN 5 MG TABLET PO SCH ×2 (10:20→21:08)
[2017-03-14] MEDS: FERROUS SO4 325 MG TABLET (FP) PO SCH ×2 (10:20→21:08)
[2017-03-14] MEDS: PANTOPRAZOLE 40 MG TABLET (FP) PO SCH ×2 (10:20→21:08)
[2017-03-14] MEDS: LISINOPRIL 10 MG TABLET (FP) PO SCH (10:20)
[2017-03-14] MEDS: morphine SO4 SUSTAINED ACTING 15 MG TABLET.SA PO SCH ×2 (10:20→21:08)
[2017-03-14] MEDS: FUROSEMIDE 20 MG TABLET (FP) PO SCH (10:20)
[2017-03-14] MEDS: POLYETHYLENE GLYCOL 3350 119 GM BTL PO SCH (10:21)
[2017-03-14] MEDS ORDERED: INSULIN (NOVOLOG) ASPART 100 UNITS/ML 10ML VIAL ONE ×2 (11:26→21:01)
--- NOTE | 2017-03-14 14:49 | PN ---
Progress Note (short form) - Note Progress Note: more comfortable O2 in place dyspneic at baseline awaiting INS approval for [facility] transfer Vital Signs Period Temp Pulse Resp BP Sys/Londono Pulse Ox Last 24 Hr 97.3 F-98 F 92-119 18-20 109-126/56-100 94-100 neck supple no JVD heart S1/S2 Lungs bilat rhonchi / no rales / wheezing left mid base abd soft non tender healed sacral decub / small stage II decubiti superior to rectum ext trace edema CBC, BMP 03/13/17 08:20 03/14/17 08:15 continue insulin coverage Active Medications Al Hydroxide/Mg Hydroxide (Mylanta Oral Suspension -) 30 ml PO QID PRN PRN Reason: INDIGESTION Albuterol/Ipratropium (Duoneb -) 1 amp NEB Q4HPO [facility] Last Admin: 03/14/17 13:50 Dose: 1 amp Albuterol/Ipratropium (Duoneb -) 1 amp NEB Q2H PRN PRN Reason: SHORTNESS OF BREATH Apixaban (Eliquis -) 5 mg PO BID [facility] Last Admin: 03/14/17 10:20 Dose: 5 mg Atorvastatin Calcium (Lipitor -) 10 mg PO HS [facility] Last Admin: 03/13/17 21:17 Dose: 10 mg Docusate Sodium (Colace -) 100 mg PO BID [facility] Last Admin: 03/14/17 10:19 Dose: 100 mg Ferrous Sulfate (Feosol -) 325 mg PO BID [facility] Last Admin: 03/14/17 10:20 Dose: 325 mg Furosemide (Lasix -) 20 mg PO DAILY [facility] Last Admin: 03/14/17 10:20 Dose: 20 mg Guaifenesin (Robitussin Dm -) 15 ml PO Q4H PRN PRN Reason: COUGH Last Admin: 03/12/17 00:59 Dose: 15 ml Insulin Aspart (Novolog Vial Sliding Scale -) 1 vial SQ ACHS [facility] PRN Reason: Protocol Last Admin: 03/14/17 11:31 Dose: Not Given Insulin Detemir (Levemir Vial) 25 units SQ 0700,2200 [facility] Last Admin: 03/14/17 08:48 Dose: 25 units Lisinopril (Prinivil) 10 mg PO DAILY [facility] Last Admin: 12/03/17 10:20 Dose: 10 mg Mirtazapine (Remeron -) 15 mg PO HS [facility] Last Admin: 03/13/17 21:21 Dose: Not Given Montelukast Sodium (Singulair -) 10 mg PO HS [facility] Last Admin: 03/13/17 21:18 Dose: 10 mg Morphine Sulfate (Ms Contin -) 15 mg PO BID [facility] Last Admin: 03/14/17 10:20 Dose: 15 mg Pantoprazole Sodium (Protonix -) 40 mg PO BID [facility] Last Admin: 03/14/17 10:20 Dose: 40 mg Polyethylene Glycol (Miralax (For Daily Use) -) 17 gm PO DAILY [facility] Last Admin: 03/14/17 10:21 Dose: Not Given Prednisone (Deltasone -) 60 mg PO DAILY [facility] Last Admin: 03/14/17 10:19 Dose: 60 mg Pregabalin (Lyrica -) 75 mg PO BID [facility] Last Admin: 03/14/17 10:20 Dose: 75 mg # dyspnea multi-factorial COPD / advanced Sarcoid / diastolic HF / pHTN / GERD O2 dependant / increased Neb tx with improvement Steroids PO & inhaled /nebulizer Q4 bipap at night and PRN pulmonary consult appreciated follow repeat CXR follow daily weight and BUN /Cr on daily diuretic --now PO C/S if febrile -- pte with hx of extensive ABX allergies avoid emperic tx unless febrile # Sarcoid Cardiac -- hx VT >>AICD Pulmonary -- O2 dependant will need lifelong PO steroids # COPD continue treatment as above # DM II Insulin with sliding scale increased FS due to IV steroids will adjust basal insulin # HTN / Lupus / Hep C / hx DVT on a/c / chronic back pain / depression continue current out patient medications # electrolyte imbalance replace Mg / K follow labs patient now on PO meds and remains stable discussed d/c with patient - to return to [facility] for safe d/c although she states would rather be home but understands arrangements for D/C back to [facility] in place awaiting INSURANCE approval Problem List - Problems (1) COPD exacerbation Code(s): J44.1 - CHRONIC OBSTRUCTIVE PULMONARY DISEASE W (ACUTE) EXACERBATION (2) Sarcoidosis of lung Code(s): D86.0 - SARCOIDOSIS OF LUNG (3) Diastolic CHF Code(s): I50.30 - UNSPECIFIED DIASTOLIC (CONGESTIVE) HEART FAILURE Qualifiers: Congestive heart failure chronicity: unspecified congestive heart failure chronicity Qualified Code(s): I50.30 - Unspecified diastolic (congestive) heart failure (4) IDDM (insulin dependent diabetes mellitus) Code(s): E11.9 - TYPE 2 DIABETES MELLITUS WITHOUT COMPLICATIONS; Z79.4 - SKILLED NURSING (CURRENT) USE OF INSULIN (5) Allergy to multiple antibiotics Code(s): Z88.1 - ALLERGY STATUS TO OTHER ANTIBIOTIC AGENTS STATUS (6) COPD (chronic obstructive pulmonary disease) Code(s): J44.9 - CHRONIC OBSTRUCTIVE PULMONARY DISEASE, UNSPECIFIED Qualifiers: COPD type: COPD with acute exacerbation Qualified Code(s): J44.1 - Chronic obstructive pulmonary disease with (acute) exacerbation (7) Obstructive sleep apnea Code(s): G47.33 - OBSTRUCTIVE SLEEP APNEA (ADULT) (PEDIATRIC) (8) SOB (shortness of breath) Code(s): R06.02 - SHORTNESS OF BREATH (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
[2017-03-14] MEDS: guaiFENesin/D-METHORPHAN HB 10 ML UNIT-DOSE CUPS PO PRN (15:02)
--- NOTE | 2017-03-14 15:34 | PN ---
Progress Note, Physician History of Present Illness: pulmonary alert,c/o cough,+dyspnea with min exertion - Current Medication List Current Medications: Active Medications Al Hydroxide/Mg Hydroxide (Mylanta Oral Suspension -) 30 ml PO QID PRN PRN Reason: INDIGESTION Albuterol/Ipratropium (Duoneb -) 1 amp NEB Q4HPO [facility] Last Admin: 03/14/17 13:50 Dose: 1 amp Albuterol/Ipratropium (Duoneb -) 1 amp NEB Q2H PRN PRN Reason: SHORTNESS OF BREATH Apixaban (Eliquis -) 5 mg PO BID [facility] Last Admin: 03/14/17 10:20 Dose: 5 mg Atorvastatin Calcium (Lipitor -) 10 mg PO HS [facility] Last Admin: 03/13/17 21:17 Dose: 10 mg Docusate Sodium (Colace -) 100 mg PO BID [facility] Last Admin: 03/14/17 10:19 Dose: 100 mg Ferrous Sulfate (Feosol -) 325 mg PO BID [facility] Last Admin: 03/14/17 10:20 Dose: 325 mg Furosemide (Lasix -) 20 mg PO DAILY [facility] Last Admin: 03/14/17 10:20 Dose: 20 mg Guaifenesin (Robitussin Dm -) 15 ml PO Q4H PRN PRN Reason: COUGH Last Admin: 03/14/17 15:02 Dose: 15 ml Insulin Aspart (Novolog Vial Sliding Scale -) 1 vial SQ ACHS [facility] PRN Reason: Protocol Last Admin: 03/14/17 11:31 Dose: Not Given Insulin Detemir (Levemir Vial) 25 units SQ 0700,2200 [facility] Last Admin: 03/14/17 08:48 Dose: 25 units Lisinopril (Prinivil) 10 mg PO DAILY [facility] Last Admin: 03/14/17 10:20 Dose: 10 mg Mirtazapine (Remeron -) 15 mg PO HS [facility] Last Admin: 03/13/17 21:21 Dose: Not Given Montelukast Sodium (Singulair -) 10 mg PO HS [facility] Last Admin: 03/13/17 21:18 Dose: 10 mg Morphine Sulfate (Ms Contin -) 15 mg PO BID [facility] Last Admin: 03/14/17 10:20 Dose: 15 mg Pantoprazole Sodium (Protonix -) 40 mg PO BID [facility] Last Admin: 03/14/17 10:20 Dose: 40 mg Polyethylene Glycol (Miralax (For Daily Use) -) 17 gm PO DAILY [facility] Last Admin: 03/14/17 10:21 Dose: Not Given Prednisone (Deltasone -) 60 mg PO DAILY [facility] Last Admin: 03/14/17 10:19 Dose: 60 mg Pregabalin (Lyrica -) 75 mg PO BID [facility] Last Admin: 03/14/17 10:20 Dose: 75 mg - Objective Vital Signs: Vital Signs Temperature 97.9 F 03/14/17 14:00 Pulse Rate 114 H 03/14/17 14:00 Respiratory Rate 22 03/14/17 14:00 Blood Pressure 126/77 03/14/17 14:00 O2 Sat by Pulse Oximetry (%) 92 L 03/14/17 11:02 Constitutional: Yes: Well Nourished, Calm Eyes: Yes: WNL HENT: Yes: WNL Neck: Yes: WNL Cardiovascular: Yes: Regular Rate and Rhythm, S1, S2 Respiratory: Yes: Rales (bilateral rales) Gastrointestinal: Yes: Normal Bowel Sounds, Soft Extremities: Yes: WNL Edema: Yes Labs: CBC, BMP 03/14/17 08:15 INR, PTT Problem List - Problems (1) Acute on chronic respiratory failure with hypoxia and hypercapnia Code(s): J96.21 - ACUTE AND CHRONIC RESPIRATORY FAILURE WITH HYPOXIA; J96.22 - ACUTE AND CHRONIC RESPIRATORY FAILURE WITH HYPERCAPNIA (2) COPD exacerbation Code(s): J44.1 - CHRONIC OBSTRUCTIVE PULMONARY DISEASE W (ACUTE) EXACERBATION (3) Diastolic CHF Code(s): I50.30 - UNSPECIFIED DIASTOLIC (CONGESTIVE) HEART FAILURE Qualifiers: Congestive heart failure chronicity: unspecified congestive heart failure chronicity Qualified Code(s): I50.30 - Unspecified diastolic (congestive) heart failure (4) IDDM (insulin dependent diabetes mellitus) Code(s): E11.9 - TYPE 2 DIABETES MELLITUS WITHOUT COMPLICATIONS; Z79.4 - FIELD CREW CHIEF (CURRENT) USE OF INSULIN (5) CHF (congestive heart failure) Code(s): I50.9 - HEART FAILURE, UNSPECIFIED Qualifiers: Congestive heart failure type: unspecified congestive heart failure type Congestive heart failure chronicity: acute on chronic Qualified Code(s): I50.9 - Heart failure, unspecified (6) COPD (chronic obstructive pulmonary disease) Code(s): J44.9 - CHRONIC OBSTRUCTIVE PULMONARY DISEASE, UNSPECIFIED Qualifiers: COPD type: COPD with acute exacerbation Qualified Code(s): J44.1 - Chronic obstructive pulmonary disease with (acute) exacerbation (7) ICD (implantable cardioverter-defibrillator), dual, in situ Code(s): Z95.810 - PRESENCE OF AUTOMATIC (IMPLANTABLE) CARDIAC DEFIBRILLATOR (8) Obstructive sleep apnea Code(s): G47.33 - OBSTRUCTIVE SLEEP APNEA (ADULT) (PEDIATRIC) (9) Respiratory failure Code(s): J96.90 - RESPIRATORY FAILURE, UNSP, UNSP W HYPOXIA OR HYPERCAPNIA (10) SOB (shortness of breath) Code(s): R06.02 - SHORTNESS OF BREATH (11) Sarcoidosis of lung Code(s): D86.0 - SARCOIDOSIS OF LUNG (12) Asthma Code(s): J45.909 - UNSPECIFIED ASTHMA, UNCOMPLICATED (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 Assessment/Plan IMP ACUTE ON CHRONIC HYPOXEMIC/HYPERCAPNEIC RESPIRATORY FAILURE ADVANCED SARCOIDOSIS PULMONARY/CARDIAC SARCOID COPD/ASTHMA CHF S/P AICD PULMONARY HTN DM HTN OSAS GERD H/O DVT PLAN PREDNISONE 60mg INHALED BRONCHODILATORS O2 BIPAP AT NIGHT AND PRN LASIX DAILY WTS AC ANTI-TUSSIVES DR EUBANKS Problem List - Problems (1) Acute on chronic respiratory failure with hypoxia and hypercapnia Code(s): J96.21 - ACUTE AND CHRONIC RESPIRATORY FAILURE WITH HYPOXIA; J96.22 - ACUTE AND CHRONIC RESPIRATORY FAILURE WITH HYPERCAPNIA (2) COPD exacerbation Code(s): J44.1 - CHRONIC OBSTRUCTIVE PULMONARY DISEASE W (ACUTE) EXACERBATION (3) Diastolic CHF Code(s): I50.30 - UNSPECIFIED DIASTOLIC (CONGESTIVE) HEART FAILURE Qualifiers: Congestive heart failure chronicity: unspecified congestive heart failure chronicity Qualified Code(s): I50.30 - Unspecified diastolic (congestive) heart failure (4) IDDM (insulin dependent diabetes mellitus) Code(s): E11.9 - TYPE 2 DIABETES MELLITUS WITHOUT COMPLICATIONS; Z79.4 - GROUP HOME (CURRENT) USE OF INSULIN (5) CHF (congestive heart failure) Code(s): I50.9 - HEART FAILURE, UNSPECIFIED Qualifiers: Congestive heart failure type: unspecified congestive heart failure type Congestive heart failure chronicity: acute on chronic Qualified Code(s): I50.9 - Heart failure, unspecified (6) COPD (chronic obstructive pulmonary disease) Code(s): J44.9 - CHRONIC OBSTRUCTIVE PULMONARY DISEASE, UNSPECIFIED Qualifiers: COPD type: COPD with acute exacerbation Qualified Code(s): J44.1 - Chronic obstructive pulmonary disease with (acute) exacerbation (7) ICD (implantable cardioverter-defibrillator), dual, in situ Code(s): Z95.810 - PRESENCE OF AUTOMATIC (IMPLANTABLE) CARDIAC DEFIBRILLATOR (8) Obstructive sleep apnea Code(s): G47.33 - OBSTRUCTIVE SLEEP APNEA (ADULT) (PEDIATRIC) (9) Respiratory failure Code(s): J96.90 - RESPIRATORY FAILURE, UNSP, UNSP W HYPOXIA OR HYPERCAPNIA (10) SOB (shortness of breath) Code(s): R06.02 - SHORTNESS OF BREATH (11) Sarcoidosis of lung Code(s): D86.0 - SARCOIDOSIS OF LUNG (12) Asthma Code(s): J45.909 - UNSPECIFIED ASTHMA, UNCOMPLICATED (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
[2017-03-14] MEDS: MONTELUKAST NA 10 MG TABLET PO SCH (21:08)
[2017-03-14] MEDS: ATORVASTATIN CA 10 MG TABLET (FP) PO SCH (21:08)
[2017-03-14] MEDS: MIRTAZAPINE 15 MG TABLET (FP) PO SCH (21:08)
[2017-03-15] MEDS: guaiFENesin/CODEINE 5 ML UNIT-DOSE CUPS PO PRN ×2 (02:15→08:53)
[2017-03-15] MEDS: ALBUTEROL SO4 2.5/IPRATROPIUM 0.5 INH SOL 3 ML VIAL.NEB. NEB SCH ×3 (02:20→10:35)
[2017-03-15 05:44] VITALS: TEMP 98.6
[2017-03-15] MEDS: INSULIN DETEMIR 100 UNITS/ML MDV SQ SCH (06:34)
[2017-03-15] MEDS: INSULIN SLIDING SCALE (NOVOLOG) 1 VIAL SQ SCH ×2 (06:35→12:19)
[2017-03-15] MEDS ORDERED: INSULIN (NOVOLOG) ASPART 100 UNITS/ML 10ML VIAL ONE (06:36)
[2017-03-15] MEDS: predniSONE 20 MG TABLET (UD) PO SCH (10:01)
[2017-03-15] MEDS: DOCUSATE SODIUM 100 MG CAPSULE (FP) PO SCH (10:01)
[2017-03-15] MEDS: PANTOPRAZOLE 40 MG TABLET (FP) PO SCH (10:01)
[2017-03-15] MEDS: FERROUS SO4 325 MG TABLET (FP) PO SCH (10:01)
[2017-03-15] MEDS: PREGABALIN 75 MG CAPSULE PO SCH (10:01)
[2017-03-15] MEDS: FUROSEMIDE 20 MG TABLET (FP) PO SCH (10:02)
[2017-03-15] MEDS: morphine SO4 SUSTAINED ACTING 15 MG TABLET.SA PO SCH (10:02)
[2017-03-15] MEDS: APIXABAN 5 MG TABLET PO SCH (10:03)
[2017-03-15] MEDS: POLYETHYLENE GLYCOL 3350 119 GM BTL PO SCH (10:05)
[2017-03-15] MEDS: LISINOPRIL 10 MG TABLET (FP) PO SCH (10:10)
[2017-03-15 12:35] VITALS: BP 146/78
--- NOTE | 2017-03-15 12:41 | PN ---
Progress Note (short form) - Note Progress Note: Still with some cough, but better. Some MORSE, but improved from admission. Intake & Output 03/12/17 03/13/17 03/14/17 03/15/17 23:59 23:59 23:59 23:59 Intake Total 400 800 900 0 Output Total 2 Balance 398 800 900 0 Weight 164 lb 4.8 oz 162 lb 9.6 oz 161 lb 14.4 oz 162 lb Last Vital Signs Temp Pulse Resp BP Pulse Ox 98.6 F 116 H 20 146/78 95 03/15/17 05:43 03/15/17 10:00 03/15/17 10:00 03/15/17 10:00 03/15/17 09:00 Active Medications Al Hydroxide/Mg Hydroxide (Mylanta Oral Suspension -) 30 ml PO QID PRN PRN Reason: INDIGESTION Albuterol/Ipratropium (Duoneb -) 1 amp NEB Q4HPO [facility] Last Admin: 03/15/17 06:29 Dose: 1 amp Albuterol/Ipratropium (Duoneb -) 1 amp NEB Q2H PRN PRN Reason: SHORTNESS OF BREATH Apixaban (Eliquis -) 5 mg PO BID [facility] Last Admin: 03/15/17 10:03 Dose: 5 mg Atorvastatin Calcium (Lipitor -) 10 mg PO HS [facility] Last Admin: 03/14/17 21:08 Dose: 10 mg Docusate Sodium (Colace -) 100 mg PO BID [facility] Last Admin: 03/15/17 10:01 Dose: 100 mg Ferrous Sulfate (Feosol -) 325 mg PO BID [facility] Last Admin: 03/15/17 10:01 Dose: 325 mg Furosemide (Lasix -) 20 mg PO DAILY [facility] Last Admin: 03/15/17 10:02 Dose: 20 mg Guaifenesin/Codeine Phosphate (Robitussin Ac -) 5 ml PO TID PRN PRN Reason: COUGH Last Admin: 03/15/17 08:53 Dose: 5 ml Insulin Aspart (Novolog Vial Sliding Scale -) 1 vial SQ ACHS [facility] PRN Reason: Protocol Last Admin: 03/15/17 12:19 Dose: 2 units Insulin Detemir (Levemir Vial) 25 units SQ 0700,2200 [facility] Last Admin: 03/15/17 06:34 Dose: Not Given Lisinopril (Prinivil) 10 mg PO DAILY [facility] Last Admin: 03/15/17 10:10 Dose: 10 mg Mirtazapine (Remeron -) 15 mg PO [facility] Last Admin: 03/14/17 21:08 Dose: 15 mg Montelukast Sodium (Singulair -) 10 mg PO HS [facility] Last Admin: 03/14/17 21:08 Dose: 10 mg Morphine Sulfate (Ms Contin -) 15 mg PO BID [facility] Last Admin: 03/15/17 10:02 Dose: 15 mg Pantoprazole Sodium (Protonix -) 40 mg PO BID [facility] Last Admin: 03/15/17 10:01 Dose: 40 mg Polyethylene Glycol (Miralax (For Daily Use) -) 17 gm PO DAILY [facility] Last Admin: 03/15/17 10:05 Dose: Not Given Prednisone (Deltasone -) 60 mg PO DAILY [facility] Last Admin: 03/15/17 10:01 Dose: 60 mg Pregabalin (Lyrica -) 75 mg PO BID [facility] Last Admin: 03/15/17 10:01 Dose: 75 mg Constitutional: Yes: Well Nourished, Calm Eyes: Yes: WNL HENT: Yes: WNL Neck: Yes: WNL Cardiovascular: Yes: Regular Rate and Rhythm, S1, S2 Respiratory: Yes: rhonchi at the bases Gastrointestinal: Yes: Normal Bowel Sounds, Soft Extremities: Yes: WNL Edema: Yes Labs: Laboratory Results - last 24 hr 03/14/17 03/14/17 03/15/17 16:54 21:07 06:33 POC Glucometer 292 323 75 03/15/17 09:41 POC Glucometer 195 Problem List - Problems (1) Acute on chronic respiratory failure with hypoxia and hypercapnia Code(s): J96.21 - ACUTE AND CHRONIC RESPIRATORY FAILURE WITH HYPOXIA; J96.22 - ACUTE AND CHRONIC RESPIRATORY FAILURE WITH HYPERCAPNIA (2) COPD exacerbation Code(s): J44.1 - CHRONIC OBSTRUCTIVE PULMONARY DISEASE W (ACUTE) EXACERBATION (3) Diastolic CHF Code(s): I50.30 - UNSPECIFIED DIASTOLIC (CONGESTIVE) HEART FAILURE Qualifiers: Congestive heart failure chronicity: unspecified congestive heart failure chronicity Qualified Code(s): I50.30 - Unspecified diastolic (congestive) heart failure (4) IDDM (insulin dependent diabetes mellitus) Code(s): E11.9 - TYPE 2 DIABETES MELLITUS WITHOUT COMPLICATIONS; Z79.4 - CABINET INSTALLER (CURRENT) USE OF INSULIN (5) CHF (congestive heart failure) Code(s): I50.9 - HEART FAILURE, UNSPECIFIED Qualifiers: Congestive heart failure type: unspecified congestive heart failure type Congestive heart failure chronicity: acute on chronic Qualified Code(s): I50.9 - Heart failure, unspecified (6) COPD (chronic obstructive pulmonary disease) Code(s): J44.9 - CHRONIC OBSTRUCTIVE PULMONARY DISEASE, UNSPECIFIED Qualifiers: COPD type: COPD with acute exacerbation Qualified Code(s): J44.1 - Chronic obstructive pulmonary disease with (acute) exacerbation (7) ICD (implantable cardioverter-defibrillator), dual, in situ Code(s): Z95.810 - PRESENCE OF AUTOMATIC (IMPLANTABLE) CARDIAC DEFIBRILLATOR (8) Obstructive sleep apnea Code(s): G47.33 - OBSTRUCTIVE SLEEP APNEA (ADULT) (PEDIATRIC) (9) Respiratory failure Code(s): J96.90 - RESPIRATORY FAILURE, UNSP, UNSP W HYPOXIA OR HYPERCAPNIA (10) SOB (shortness of breath) Code(s): R06.02 - SHORTNESS OF BREATH (11) Sarcoidosis of lung Code(s): D86.0 - SARCOIDOSIS OF LUNG (12) Asthma Code(s): J45.909 - UNSPECIFIED ASTHMA, UNCOMPLICATED (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
[2017-03-15 13:35] VITALS: PULSE 80
== END 2017-03-15 15:56 | DRG 133 ==
LOC: JER 19:11 → JERBED 22:45 → UNDOADMIN 23:53 → J6S 03-10 03:40
PROVIDERS: ADMIT Family Medicine; ATTEND Family Medicine
DX: J96.21 Acute and chronic respiratory failure with hypoxia (principal); J96.22 Acute and chronic respiratory failure with hypercapnia; J44.1 Chronic obstructive pulmonary disease with (acute) exacerbation; D86.0 Sarcoidosis of lung; M32.9 Systemic lupus erythematosus, unspecified; I27.20 Pulmonary hypertension, unspecified; I11.0 Hypertensive heart disease with heart failure; I50.32 Chronic diastolic (congestive) heart failure; Z99.81 Dependence on supplemental oxygen; E87.8 Other disorders of electrolyte and fluid balance, not elsewhere classified; Z86.718 Personal history of other venous thrombosis and embolism; K21.9 Gastro-esophageal reflux disease without esophagitis; F32.9 Major depressive disorder, single episode, unspecified; M54.9 Dorsalgia, unspecified; E78.5 Hyperlipidemia, unspecified; Z79.4 Long term (current) use of insulin; B19.20 Unspecified viral hepatitis C without hepatic coma; G47.33 Obstructive sleep apnea (adult) (pediatric); Z95.810 Presence of automatic (implantable) cardiac defibrillator; Z95.0 Presence of cardiac pacemaker; E11.9 Type 2 diabetes mellitus without complications
CPT/HCPCS: 36415; 36600; 71010-TC; 80048; 80053; 82550; 82803; 83735; 83880; 84100; 84484; 85025; 85610; 93005; 93010; 94640; 94660; 97116-GP; 97161-GP; 99284-25

== ENCOUNTER 2017-04-21 11:16 | Inpatient (IN) | payer OTHER ==
[2017-04-21 12:19] LABS: HEMATOCRIT 35.2 % (32.4-45.2); HEMOGLOBIN 10.8 GM/dL (10.7-15.3); MCH 26.9 pg (25.7-33.7); MCHC 30.7 g/dl (32.0-36.0); MEAN CELL VOLUME 87.5 fl (80-96); MEAN PLT VOLUME 8.6 fl (7.5-11.1); PLATELET COUNT 299 K/MM3 (134-434); RBC 4.02 M/mm3 (3.60-5.2); RDW 17.3 % (11.6-15.6); WHITE BLOOD COUNT 10.7 K/mm3 (4.0-10.0)
[2017-04-21 12:40] LABS: ALBUMIN 2.8 g/dl (3.4-5.0); ANION GAP 6 (8-16); BILIRUBIN,TOTAL 0.2 mg/dL (0.2-1.0); BLOOD UREA NITROGEN 22 mg/dL (7-18); CALCIUM 9.6 mg/dL (8.5-10.1); CHLORIDE 99 mmol/L (98-107); CO2 36 mmol/L (21-32); CREATININE 0.9 mg/dL (0.55-1.02); GLUCOSE,RANDOM 208 mg/dL (74-106); POTASSIUM 4.6 mmol/L (3.5-5.1); SGOT/AST 18 U/L (15-37); SGPT/ALT 19 U/L (12-78); SODIUM 141 mmol/L (136-145); TOT PROT 7.7 g/dl (6.4-8.2)
[2017-04-21 12:42] LABS: ALK PHOS 76 U/L (45-117)
[2017-04-21 12:47] LABS: INR 1.4 (0.82-1.09); PROTHROMBIN TIME (PATIENT) 15.8 SEC (9.98-11.88)
--- NOTE | 2017-04-21 13:05 | PDOC ---
History of Present Illness - General Chief Complaint: Chest Pain Stated Complaint: CHEST PAIN Time Seen by Provider: 04/21/17 13:04 - History of Present Illness Initial Comments: 04/21/17 13:06 Ms. Canchola is a 62 yo female w/ pmh of chronic hypoxic respiratory failure, sarcoidosis, COPD, pulmonary HTN, chronic diastolic heart failure, type 2 DM, DVT, HTN, depression, GERD, chronic back pain, hyperlipidemia, cardiac implanted defibrillator, muscle weakness, who presents from scheduled RF ENGINEER visit earlier today when she was noted to have chest pain coinciding with cough. She reports she has felt more sleepy than usual the past week or so and that her cough has lasted a few days. She says that she has also had symptoms of runny nose and congestion recently as well. The patient denies shortness of breath, headache and dizziness. Denies fever, chills, nausea, vomit, diarrhea and constipation. Denies dysuria, frequency, urgency and hematuria. Allergies: Extensive. Including: Amoxicillin, ASA, Azithromycin, Ciprofloxacin, Codeine, Ketorolac, Levofloxacin, Medroxyprogesterone, Metronidazole, Nalbuphine , Sulfamethoxazole, Tremethoprim, Augmentin, Bactrim, Nubain, Toradol, Iodinated dye agents 04/21/17 15:36 Past History - Past Medical History Allergies/Adverse Reactions: Allergies Allergy/AdvReac Type Severity Reaction Status Date / Time medroxyprogesterone acetate Allergy Severe stepehns Verified 04/21/17 11:36 [From Depo-Provera] josé syndrome amoxicillin trihydrate Allergy Verified 04/21/17 11:36 [From Augmentin] aspirin Allergy Verified 04/21/17 11:36 azithromycin [From Zithromax] Allergy Dewey Verified 04/21/17 11:36 José syndrome ciprofloxacin HCl Allergy Verified 04/21/17 11:36 [From Cipro] codeine [Codeine] Allergy Verified 04/21/17 11:36 Iodinated Contrast- Oral and Allergy Verified 04/21/17 11:36 IV Dye [IV Dye, Iodine Containing Contrast ] ketorolac tromethamine Allergy Verified 04/21/17 11:36 [From Toradol] levofloxacin [From Levaquin] Allergy Verified 04/21/17 11:36 metronidazole [From Flagyl] Allergy Verified 04/21/17 11:36 nalbuphine HCl [From Nubain] Allergy CYANOSIS Verified 04/21/17 11:36 potassium clavulanate Allergy Verified 04/21/17 11:36 [From Augmentin] Shellfish Allergy Verified 04/21/17 11:36 sulfamethoxazole Allergy Verified 04/21/17 11:36 [From Bactrim] trimethoprim [From Bactrim] Allergy Verified 04/21/17 11:36 ivp dye Allergy Severe Swelling Uncoded 04/21/17 11:36 Home Medications: Ambulatory Orders Albuterol 0.083% Nebulizer Gisela [Ventolin 0.083% Nebulizer Soln -] 1 neb NEB Q4H 03/10/17 Montelukast Na [Singulair -] 10 mg PO HS 03/10/17 Albuterol 2.5/Ipratropium 0.5 [Duoneb -] 1 amp NEB Q4H PRN amp 03/11/17 Albuterol 2.5/Ipratropium 0.5 [Duoneb -] 1 amp NEB QIDR amp 03/11/17 Apixaban [Eliquis -] 5 mg PO BID 30 Days #60 tablet 03/11/17 Atorvastatin Ca [Lipitor] 10 mg PO HS tablet 03/11/17 Docusate Sodium [Colace -] 100 mg PO BID capsule 03/11/17 Ferrous Sulfate [Feosol] 325 mg PO BID ud 03/11/17 Furosemide [Lasix -] 20 mg PO DAILY tablet 03/11/17 Lisinopril [Prinivil] 10 mg PO DAILY tablet 03/11/17 Mirtazapine [Remeron -] 15 mg PO HS tablet 03/11/17 Pregabalin [Lyrica -] 75 mg PO BID 7 Days #14 capsule MDD 150mg 03/11/17 Calcium Carbonate [Calcium] 600 mg PO DAILY 04/21/17 Collagenase Clostridium Hist. [Santyl] 1 applic TP DAILY 04/21/17 Hydromorphone [Dilaudid -] 2 mg PO Q6H 04/21/17 Prednisone [Deltasone -] 40 mg PO DAILY 04/21/17 Ranitidine HCl [Zantac] 150 mg PO DAILY 04/21/17 Sennosides [Senna] 2 tab PO HS 04/21/17 Anemia: Yes Asthma: Yes Cancer: No Cardiac Disorders: Yes CVA: No COPD: Yes CHF: Yes Dementia: No Diabetes: Yes GI Disorders: Yes (acid reflux, gastric paresis, GERD) Disorders: Yes (Urinary retention) HTN: Yes Hypercholesterolemia: No Liver Disease: Yes (hep c) Seizures: No Thyroid Disease: No - Surgical History Abdominal Surgery: Yes Appendectomy: No Cardiac Surgery: Yes (AICD) Cholecystectomy: No Gastric Stapling: No Lung Surgery: No Neurologic Surgery: Yes (BACK SX WITH NERVE DAMAGE) Orthopedic Surgery: Yes (laminectomy x 2 in 2009 in [facility]) - Immunization History Immunization Up to Date: Yes - Suicide/Smoking/Psychosocial Hx Smoking Status: No Smoking History: Unknown if ever smoked Have you smoked in the past 12 months: No Number of Cigarettes Smoked Daily: 0 Cigars Per Day: 0 Hx Alcohol Use: No Drug/Substance Use Hx: No Substance Use Type: None Hx Substance Use Treatment: No Review of Systems - Review of Systems Comments:: 04/21/17 13:24 GENERAL/CONSTITUTIONAL: +New onset sleepyness/weakness for one week. No fever or chills. HEAD, EYES, EARS, NOSE AND THROAT: No change in vision. No ear pain or discharge. No sore throat. CARDIOVASCULAR: +Pain with cough for the past 3 days RESPIRATORY: +Productive cough with wheezing, no hemoptysis. GASTROINTESTINAL: No nausea, vomiting, diarrhea or constipation. GENITOURINARY: No dysuria, frequency, or change in urination. MUSCULOSKELETAL: No joint or muscle swelling or pain. No neck or back pain. SKIN: No rash NEUROLOGIC: No headache, vertigo, loss of consciousness, or change in strength/ sensation. ENDOCRINE: No increased thirst. No abnormal weight change HEMATOLOGIC/LYMPHATIC: No anemia, easy bleeding, or history of blood clots. ALLERGIC/IMMUNOLOGIC: No hives or skin allergy. *Physical Exam - Vital Signs Last Vital Signs Temp Pulse Resp BP Pulse Ox 97.9 F 79 20 117/74 98 04/21/17 11:43 04/21/17 11:43 04/21/17 11:43 04/21/17 11:43 04/21/17 12:00 - Physical Exam Comments: 04/21/17 13:25 GENERAL: +Awake, and oriented to person and place. Patient somnolent. HEAD: No signs of trauma, normocephalic, atraumatic EYES: PERRLA, EOMI, sclera anicteric, conjunctiva clear ENT: Auricles normal inspection, hearing grossly normal, nares patent, oropharynx clear without exudates. Moist mucosa NECK: Normal ROM, supple, no lymphadenopathy, JVD, or masses LUNGS: +Diffusely wheezy and tight sounding HEART: Regular rate and rhythm, normal S1 and S2, no murmurs, rubs or gallops, peripheral pulses normal and equal bilaterally. ABDOMEN: Soft, nontender, normoactive bowel sounds. No guarding, no rebound. No masses EXTREMITIES: Normal inspection, Normal range of motion, no edema. No clubbing or cyanosis. NEUROLOGICAL: Cranial nerves II through XII grossly intact. Normal speech, no focal sensorimotor deficits SKIN: Warm, Dry, normal turgor, no rashes or lesions noted. ED Treatment Course - LABORATORY CBC & Chemistry Diagram: 04/21/17 12:10 04/21/17 12:07 - ADDITIONAL ORDERS Additional order review: Laboratory Results 04/21/17 04/21/17 12:07 12:07 PT with INR 15.80 H INR 1.40 H Sodium 141 Potassium 4.6 D Chloride 99 Carbon Dioxide 36 H Anion Gap 6 L BUN 22 H D Creatinine 0.9 D Creat Clearance w eGFR > 60 Random Glucose 208 H D Calcium 9.6 Total Bilirubin 0.2 D AST 18 ALT 19 Alkaline Phosphatase 76 D Creatine Kinase 25 L Troponin I < 0.02 Total Protein 7.7 Albumin 2.8 L D 04/21/17 12:10 RBC 4.02 MCV 87.5 MCHC 30.7 L RDW 17.3 H MPV 8.6 D Neutrophils % No Result Required. Lymphocytes % No Result Required. Medical Decision Making - Medical Decision Making 04/21/17 15:59 Ms. Canchola is a 62 yo female w/ complicated pmh as above who presents c/o chest pain with cough as described. Noted to be very somnolent on exam. VBG revealed hypercarbia as below, patient placed on bipap for treatment. Pulmonary consulted and will contact PCP. 04/21/17 16:07 Discussed patient w/ PCP (Dr. Fuchs) who agrees with admission and follow- up. Will proceed with admission. *DC/Admit/Observation/Transfer Diagnosis at time of Disposition: Hypercarbia, Somnolence CHF (congestive heart failure) Qualifiers: Congestive heart failure type: unspecified Congestive heart failure chronicity : unspecified Qualified Code(s): I50.9 - Heart failure, unspecified - Discharge Dispostion Admit: Yes - Referrals Referrals: Whit Fuchs MD [Primary Care Provider] - - Patient Instructions - Post Discharge Activity
--- NOTE | 2017-04-21 14:06 | PDOC ---
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 Allergies: Amoxicillin, ASA, Azithromycin, Ciprofloxacin, Codeine, Ketorolac, Levofloxacin, Medroxyprogesterone, Metronidazole, Nalbuphine, Sulfamethoxazole, Tremethoprim, Augmentin, Bactrim, Nubain, Toradol, Iodinated dye agents <Teo Cho - Last Filed: 04/21/17 15:59> - Resident Resident Name: Jan Kumar - ED Attending Attestation I have performed the following: I have examined & evaluated the patient, The case was reviewed & discussed with the resident, I agree w/resident's findings & plan, Exceptions are as noted - Physicial Exam PE: 04/21/17 17:47 Patient is lethargic but easily arousable, hypoxemic on room air, afebrile; nc, atr mmm no jvd cta rrr + 4 pitting edema bilaterally with bilateral erythema Patient is lethargic but arousable, moving all extremity symmetrically - Medical Decision Making 04/21/17 17:48 Patient 62-year-old female with multiple comorbidities who presents to the ER with lethargy and the atraumatic chest discomfort that is exacerbated postoperatively. EKG shows no evidence of acute ischemia. Chest x-ray reveals no evidence of infiltrate or effusion. ABG reveals elevated pCO2 of 68 consistent with hypercapnic respiratory failure. Patient requires BiPAP and will be admitted further management. <Ian Winters - Last Filed: 04/21/17 17:48>
[2017-04-21 15:01] LABS: ANISOCYTOSIS 2+; MACROCYTOSIS 0; PLATELET ESTIMATE NORMAL
[2017-04-21] MEDS ORDERED: FUROSEMIDE 40 MG/4 ML INJECTABLE VIAL IVPUSH ONE (15:04)
--- NOTE | 2017-04-21 15:07 | EKG ---
Test Reason : Blood Pressure : / mmHG Vent. Rate : 088 BPM Atrial Rate : 088 BPM P-R Int : 134 ms QRS Dur : 070 ms QT Int : 344 ms P-R-T Axes : 027 -09 014 degrees QTc Int : 416 ms SINUS RHYTHM WITH MARKED SINUS ARRHYTHMIA MINIMAL VOLTAGE CRITERIA FOR LVH, MAY BE NORMAL VARIANT BORDERLINE ECG WHEN COMPARED WITH ECG OF 09-MAR-2017 19:42, ABERRANT CONDUCTION IS NO LONGER PRESENT Confirmed by EDILBERTO SAAB, ANILA ([id number]) on 04/21/2017 3:07:17 PM Referred By: Confirmed By:ANILA CASANOVA MD
[2017-04-21 15:25] LABS: VENOUS PC02 68.1 mmHg (38-52); VENOUS PH 7.34 (7.32-7.42); VENOUS PO2 21.7 mmHg (28-48)
[2017-04-21] MEDS ORDERED: FUROSEMIDE 40 MG/4 ML INJECTABLE VIAL ONE (16:03)
--- NOTE | 2017-04-21 16:43 | PN ---
Progress Note (short form) - Note Progress Note: PULMONARY CONSULTATION DICTATED 04/21/17 IMP ACUTE ON CHRONIC HYPOXEMIC/HYPERCAPNEIC RESPIRATORY FAILURE ADVANCED PULMONARY SARCOID PULMONARY FIBROSIS SECONDARY TO SARCOID CARDIAC SARCOID S/P AICD DIASTOLIC HF OSVALDO COPD PULMONARY HTN HTN DM PLAN INHALED BRONCHODILATORS O2 NIPPV NEEDED + HS IV STEROIDS ANTIBIOTICS LASIX DAILY WTS ABD F/U CHEST X-RAY DR EUBANKS Problem List - Problems (1) Hypercarbia Code(s): R06.89 - OTHER ABNORMALITIES OF BREATHING (2) Acute on chronic respiratory failure with hypoxia and hypercapnia Code(s): J96.21 - ACUTE AND CHRONIC RESPIRATORY FAILURE WITH HYPOXIA; J96.22 - ACUTE AND CHRONIC RESPIRATORY FAILURE WITH HYPERCAPNIA (3) Allergy to multiple antibiotics Code(s): Z88.1 - ALLERGY STATUS TO OTHER ANTIBIOTIC AGENTS STATUS (4) COPD (chronic obstructive pulmonary disease) Code(s): J44.9 - CHRONIC OBSTRUCTIVE PULMONARY DISEASE, UNSPECIFIED (5) COPD exacerbation Code(s): J44.1 - CHRONIC OBSTRUCTIVE PULMONARY DISEASE W (ACUTE) EXACERBATION (6) ICD (implantable cardioverter-defibrillator), dual, in situ Code(s): Z95.810 - PRESENCE OF AUTOMATIC (IMPLANTABLE) CARDIAC DEFIBRILLATOR (7) Obstructive sleep apnea Code(s): G47.33 - OBSTRUCTIVE SLEEP APNEA (ADULT) (PEDIATRIC) (8) Respiratory failure Code(s): J96.90 - RESPIRATORY FAILURE, UNSP, UNSP W HYPOXIA OR HYPERCAPNIA (9) SOB (shortness of breath) Code(s): R06.02 - SHORTNESS OF BREATH (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 Code(s): 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 (11) Sarcoidosis of lung Code(s): D86.0 - SARCOIDOSIS OF LUNG (12) Diastolic CHF Code(s): I50.30 - UNSPECIFIED DIASTOLIC (CONGESTIVE) HEART FAILURE (13) IDDM (insulin dependent diabetes mellitus) Code(s): E11.9 - TYPE 2 DIABETES MELLITUS WITHOUT COMPLICATIONS; Z79.4 - SPECTACLE TRUER (CURRENT) USE OF INSULIN
[2017-04-21] MEDS ORDERED: methylPREDNISolone NA SUCC 40 MG/1 ML VIAL ONE ×2 (16:51→21:27)
[2017-04-21] MEDS: methylPREDNISolone NA SUCC 40 MG/1 ML VIAL IVPUSH SCH ×2 (16:54→21:33)
--- NOTE | 2017-04-21 18:59 | CONS ---
DATE OF CONSULTATION: 04/21/2017 PULMONARY CONSULTATION REFERRING PHYSICIAN: Whit Fuchs M.D. HISTORY OF PRESENT ILLNESS: The patient is a 62-year-old black female known to me from previous hospitalization and past end-stage sarcoid and fibrotic lung, cardiac sarcoid, status post permanent pacemaker, diastolic heart failure with preserved left ventricular ejection fraction, pulmonary hypertension, and hypertension, COPD, GERD, lupus, history of DVT maintained on Eliquis, Parkinson's, chronic back pain, status post revision broken robert status post morphine pump replacement, admitted to [facility] earlier today with increasing shortness of breath, chest pain and cough. The patient apparently is scheduled for CHILD WELFARE DIRECTOR visit earlier today when she went to emergency department started developing chest pain coinciding with cough, she also felt more sleepy as well as increasing chest congestion. Patient was at the emergency room above. In the ER, she had blood gas, venous blood gas performed, which revealed evidence of worsening hypercapnia. She was placed on BiPAP. She denies any fevers or chills. Denies hemoptysis. PAST MEDICAL HISTORY: Again includes advanced sarcoidosis, chronic fibrotic lung, cardiac sarcoid status post implanted defibrillator, diastolic heart failure, type 2 diabetes, DVT, depression, hypertension, pulmonary hypertension, chronic back pain, hyperlipidemia. SOCIAL HISTORY: Nonsmoker. No occupational exposures. REVIEW OF SYSTEMS: Unable to obtain at this time. Patient is very drowsy. MEDICATIONS: Medications prior to admission include albuterol, Singulair, DuoNeb, Eliquis, Lipitor, Colace, Feosol, Lasix, Prinivil, Remeron, calcium, Lyrica, Dilaudid, prednisone, Zantac, and senna. PHYSICAL EXAMINATION: General: The patient is a well-developed, nourished black female lethargic on BiPAP. VITAL SIGNS: She is currently afebrile. Blood pressure 117/74, respiratory rate 18, O2 saturation is 92% on 35% oxygen. HEENT: Head is normocephalic, atraumatic. Neck: Supple. Heart: Regular. S1, S2. Chest: Bilateral crackles. Scattered bilateral rhonchi. Abdomen: Soft. Bowel sounds positive. Extremities: Bilateral lower extremity edema. LABORATORY: WBC is 10.7, hemoglobin 10.8, hematocrit 35.2 with platelet count of 299,000. There are 86 polycytes, 9 lymphocytes, and 2 monocytes. INR is 1.4. Venous blood gas: pH 7.34, pCO2 of 68, bicarbonate of recent gas prior hospitalization March 12, pH 7.43, pCO2 of 58, and pO2 of 74, bicarbonate of 35, and saturation of 94 on nasal cannula 2 L. Chest x-ray, cardiomegaly changes bilaterally, no significant change from previous exam March 01, 2017. IMPRESSION: 1. [id number] hypoxemia with hypercapnic respiratory failure secondary to chronic obstructive pulmonary disease exacerbation. 2. Advanced pulmonary sarcoid with fibrotic lung. Advanced interstitial lung disease secondary to advanced sarcoid. 3. Cardiac sarcoid status post implantable cardioverter defibrillator. 4. Diastolic heart failure. 5. Pulmonary hypertension. 6. Gastroesophageal reflux disease. 7. Depression. 8. Hypertension. PLAN: Broad spectrum antibiotics. Supplemental O2. BiPAP. Check arterial blood gases. IV steroids. Diuretics. Followup chest x-ray. Followup blood gases. Obtain cultures. Inhaled bronchodilators. Daily weights. STACY EUBANKS M.D. BLAYNE/[id number]
[2017-04-21 19:22] LABS: ARTERIAL BLD GAS O2 SATURATION 94.8 % (90-98.9); ARTERIAL BLOOD GAS BASE EXCESS 7.7 meq/l (-2-2); ARTERIAL BLOOD GAS PO2 81.8 mmHg (80-100); ARTERIAL BLOOD GAS pH 7.35 (7.35-7.45); CARBOXYHEMOGLOBIN 1.6 gm% (0.5-2.0)
[2017-04-21 19:39] LABS: ARTERIAL BLOOD GAS PCO2 66.5 mmHg (35-45)
[2017-04-21 19:40] LABS: ALLENS TEST POSITIVE
[2017-04-21] MEDS: ALBUTEROL SO4 2.5/IPRATROPIUM 0.5 INH SOL 3 ML VIAL.NEB. NEB SCH (20:31)
[2017-04-21 21:06] LABS: VENOUS PH 7.32 (7.32-7.42)
--- NOTE | 2017-04-22 00:16 | HP ---
Admitting History and Physical - Admission Chief Complaint: dyspnea / History of Present Illness: Ms. Canchola is a 62 yo female w/ pmh of chronic hypoxic respiratory failure, pulmonary fibrosis and sarcoidosis, cardiac sarcoidosis, COPD, pulmonary HTN, chronic diastolic heart failure, type 2 DM, DVT, HTN, depression, GERD, chronic back pain, hyperlipidemia, cardiac implanted defibrillator, muscle weakness, who presents from scheduled CABLE REELER visit earlier today when she was noted to have chest pain coinciding with cough. She reports she has felt more sleepy than usual the past week or so and that her cough has lasted a few days. She says that she has also had symptoms of runny nose and congestion recently as well. Currently on 30 mg prednisone daily The patient denies shortness of breath, headache and dizziness. Denies fever, chills, nausea, vomit, diarrhea and constipation. Denies dysuria, frequency, urgency and hematuria. Allergies: Extensive. Including: Amoxicillin, ASA, Azithromycin, Ciprofloxacin, Codeine, Ketorolac, Levofloxacin, Medroxyprogesterone, Metronidazole, Nalbuphine , Sulfamethoxazole, Tremethoprim, Augmentin, Bactrim, Nubain, Toradol, Iodinated dye agents History Source: Patient, Medical Record - Past Medical History Cardiovascular: Yes: CHF (likely normal LVEF on ECHO this admission), Deep Vein Thrombosis, HTN, Pulmonary Hypertension, Other (Sarcoidosis with cardiac involvement and history of VT s/p ICD) Pulmonary: Yes: Asthma, COPD, O2 Dependent, Previously Intubated, Pulmonary Fibrosis, Sleep Apnea, Other (Sarcoidosis with cardiac involvement) Gastrointestinal: Yes: GERD, Other (hepatitis C) Hepatobiliary: Yes: Hepatitis C Heme/Onc: Yes: Anemia Infectious Disease: Yes: Other (HEP C) Musculoskeletal: Yes: Chronic low back pain (spinal cord stimulator) Rheumatology: Yes: Sarcoidosis (cardiac and pulmonary) Endocrine: Yes: Diabetes Mellitus - Past Surgical History Past Surgical History: Yes: AICD, Laminectomy, Permanent Pacemaker (ICD. ) - Smoking History Smoking history: Unknown if ever smoked Have you smoked in the past 12 months: No Aproximately how many cigarettes per day: 0 - Alcohol/Substance Use Hx Alcohol Use: No - Social History Usual Living Arrangement: Yes: Detention ADL: Support Services History of Recent Travel: No Home Medications - Allergies Allergies/Adverse Reactions: Allergies Allergy/AdvReac Type Severity Reaction Status Date / Time medroxyprogesterone acetate Allergy Severe stepehns Verified 04/21/17 11:36 [From Depo-Provera] josé syndrome amoxicillin trihydrate Allergy Verified 04/21/17 11:36 [From Augmentin] aspirin Allergy Verified 04/21/17 11:36 azithromycin [From Zithromax] Allergy Dewey Verified 04/21/17 11:36 José syndrome ciprofloxacin HCl Allergy Verified 04/21/17 11:36 [From Cipro] codeine [Codeine] Allergy Verified 04/21/17 11:36 Iodinated Contrast- Oral and Allergy Verified 04/21/17 11:36 IV Dye [IV Dye, Iodine Containing Contrast ] ketorolac tromethamine Allergy Verified 04/21/17 11:36 [From Toradol] levofloxacin [From Levaquin] Allergy Verified 04/21/17 11:36 metronidazole [From Flagyl] Allergy Verified 04/21/17 11:36 nalbuphine HCl [From Nubain] Allergy CYANOSIS Verified 04/21/17 11:36 potassium clavulanate Allergy Verified 04/21/17 11:36 [From Augmentin] Shellfish Allergy Verified 04/21/17 11:36 sulfamethoxazole Allergy Verified 04/21/17 11:36 [From Bactrim] trimethoprim [From Bactrim] Allergy Verified 04/21/17 11:36 ivp dye Allergy Severe Swelling Uncoded 04/21/17 11:36 - Home Medications Home Medications: Ambulatory Orders Albuterol 0.083% Nebulizer Gisela [Ventolin 0.083% Nebulizer Soln -] 1 neb NEB Q4H 03/10/17 Montelukast Na [Singulair -] 10 mg PO HS 03/10/17 Albuterol 2.5/Ipratropium 0.5 [Duoneb -] 1 amp NEB Q4H PRN amp 03/11/17 Albuterol 2.5/Ipratropium 0.5 [Duoneb -] 1 amp NEB QIDR amp 03/11/17 Apixaban [Eliquis -] 5 mg PO BID 30 Days #60 tablet 03/11/17 Atorvastatin Ca [Lipitor] 10 mg PO HS tablet 03/11/17 Ferrous Sulfate [Feosol] 325 mg PO BID ud 03/11/17 Furosemide [Lasix -] 20 mg PO DAILY tablet 03/11/17 Lisinopril [Prinivil] 10 mg PO DAILY tablet 03/11/17 Calcium Carbonate [Calcium] 600 mg PO BID 04/21/17 Collagenase Clostridium Hist. [Santyl] 1 applic TP DAILY 04/21/17 Hydromorphone [Dilaudid -] 1 mg PO Q6H 04/21/17 Prednisone [Deltasone -] 30 mg PO DAILY 04/21/17 Ranitidine HCl [Zantac] 150 mg PO DAILY 04/21/17 Sennosides [Senna] 2 tab PO HS 04/21/17 Albuterol 2.5/Ipratropium 0.5 [Duoneb -] 1 neb IH QID 04/22/17 Albuterol 2.5/Ipratropium 0.5 [Duoneb -] 1 neb NEB Q4H PRN 04/22/17 Docusate Sodium [Colace -] 300 mg PO HS 04/22/17 Insulin (Levemir) [Levemir Flexpen -] 25 units SQ HS 04/22/17 Insulin (Novolog) [Novolog] 0 units SQ ACHS 04/22/17 Mirtazapine [Remeron -] 30 mg PO HS 04/22/17 Pregabalin [Lyrica -] 75 mg PO Q12H 04/22/17 Sodium Chloride [Saline Nasal [place]] 1 spray BID 04/22/17 Family Disease History - Family Disease History Family Disease History: Other: Mother (3 CVAs, the first in her 60s) Review of Systems - Review of Systems Constitutional: reports: Lethargy, Weakness. denies: Night Sweats Eyes: reports: No Symptoms HENT: reports: No Symptoms Neck: reports: No Symptoms Cardiovascular: reports: Edema, Shortness of Breath. denies: Chest Pain Respiratory: reports: Exercise Intolerance, Orthopnea, SOB, Other (pulmonary Sarcoid) Gastrointestinal: reports: Bloating, Indigestion. denies: Nausea, Vomiting Genitourinary: reports: No Symptoms Breasts: reports: No Symptoms Reported Musculoskeletal: reports: Back Pain, Extremity Pain, Muscle Cramps, Muscle Weakness Neurological: reports: Confusion Physical Examination Vital Signs: Vital Signs Temperature 97.9 F 04/21/17 11:43 Pulse Rate 83 04/21/17 18:08 Respiratory Rate 20 04/21/17 18:08 Blood Pressure 100/76 04/21/17 18:08 O2 Sat by Pulse Oximetry (%) 100 04/21/17 19:15 Constitutional: Yes: Other (on bipap lethargic but arousable) Eyes: Yes: Conjunctiva Clear. No: Sclera Icterus HENT: Yes: Atraumatic, Normocephalic Neck: Yes: Trachea Midline Cardiovascular: Yes: Regular Rate and Rhythm Respiratory: Yes: Diminished, On BiPap, Poor Air Entry, Rhonchi, SOB Gastrointestinal: Yes: Normal Bowel Sounds, Abdomen, Obese. No: Tenderness, Epigastrium, Tenderness, Rebound, Vomiting ...Rectal Exam: Yes: Deferred Renal/: Yes: WNL Breast(s): Yes: WNL Musculoskeletal: Yes: Back Pain Extremities: Yes: Delayed Capillary Refill. No: Calf Tenderness, Cold, Cool Edema: LLE: 2+ Peripheral Pulses: Left Radial: 2+, Right Radial: 2+, Left Doralis Pedis: 2+, Right Dorsalis Pedis: 2+, Left Femoral: 2+, Right Femoral: 2+ Neurological: Yes: Lethargy Labs: CBC, BMP 04/21/17 12:10 04/21/17 12:07 Problem List - Problems (1) Acute on chronic respiratory failure with hypoxia and hypercapnia Code(s): J96.21 - ACUTE AND CHRONIC RESPIRATORY FAILURE WITH HYPOXIA; J96.22 - ACUTE AND CHRONIC RESPIRATORY FAILURE WITH HYPERCAPNIA (2) CHF (congestive heart failure) Code(s): I50.9 - HEART FAILURE, UNSPECIFIED Qualifiers: Congestive heart failure type: unspecified Congestive heart failure chronicity: unspecified Qualified Code(s): I50.9 - Heart failure, unspecified (3) Hypercarbia Code(s): R06.89 - OTHER ABNORMALITIES OF BREATHING (4) Somnolence Code(s): R40.0 - SOMNOLENCE (5) SHERRI (acute kidney injury) Code(s): N17.9 - ACUTE KIDNEY FAILURE, UNSPECIFIED (6) Abdominal pain Code(s): R10.9 - UNSPECIFIED ABDOMINAL PAIN (7) Allergy to multiple antibiotics Code(s): Z88.1 - ALLERGY STATUS TO OTHER ANTIBIOTIC AGENTS STATUS (8) COPD exacerbation Code(s): J44.1 - CHRONIC OBSTRUCTIVE PULMONARY DISEASE W (ACUTE) EXACERBATION (9) Chronic low back pain Code(s): M54.5 - LOW BACK PAIN; G89.29 - OTHER CHRONIC PAIN (10) ICD (implantable cardioverter-defibrillator), dual, in situ Code(s): Z95.810 - PRESENCE OF AUTOMATIC (IMPLANTABLE) CARDIAC DEFIBRILLATOR (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
[2017-04-22] MEDS: methylPREDNISolone NA SUCC 40 MG/1 ML VIAL IVPUSH SCH ×5 (04:02→21:20)
[2017-04-22] MEDS ORDERED: methylPREDNISolone NA SUCC 40 MG/1 ML VIAL ONE (04:05)
[2017-04-22] MEDS: ALBUTEROL SO4 2.5/IPRATROPIUM 0.5 INH SOL 3 ML VIAL.NEB. NEB SCH ×4 (09:42→20:56)
[2017-04-22] MEDS ORDERED: FUROSEMIDE 20 MG TABLET (FP) PO SCH (10:00)
[2017-04-22] MEDS: CALCIUM CARBONATE 650 MG TABLET PO SCH (10:30)
[2017-04-22] MEDS: APIXABAN 5 MG TABLET PO SCH ×2 (10:30→21:20)
[2017-04-22] MEDS: FERROUS SO4 325 MG TABLET (FP) PO SCH ×2 (10:30→21:20)
[2017-04-22] MEDS: LISINOPRIL 10 MG TABLET (FP) PO SCH (10:30)
[2017-04-22] MEDS: RANITIDINE HCL 150 MG TABLET (FP) PO SCH ×2 (10:30→21:20)
[2017-04-22] MEDS: DOCUSATE SODIUM 100 MG CAPSULE (FP) PO SCH ×2 (10:31→21:20)
[2017-04-22] MEDS ORDERED: PREGABALIN 25 MG CAPSULE ONE (10:36)
[2017-04-22] MEDS ORDERED: PREGABALIN 50 MG CAPSULE ONE (10:36)
[2017-04-22] MEDS: PREGABALIN 75 MG CAPSULE PO SCH ×2 (10:38→21:20)
[2017-04-22] MEDS: INSULIN SLIDING SCALE (NOVOLOG) 1 VIAL SQ SCH ×4 (11:45→21:20)
[2017-04-22 13:26] VITALS: BMI 32.7
--- NOTE | 2017-04-22 15:32 | PN ---
Progress Note (short form) - Note Progress Note: Awake, mildly tachypneic on 3 L NC O2, saturation 97%. Congested cough. No CP. Intake & Output 04/19/17 04/20/17 04/21/17 04/22/17 23:59 23:59 23:59 23:59 Intake Total 200 Balance 200 Weight 200 lb 167 lb 8 oz Last Vital Signs Temp Pulse Resp BP Pulse Ox 97.9 F 89 18 107/63 98 04/22/17 15:31 04/22/17 15:31 04/22/17 15:31 04/22/17 15:31 04/22/17 13:35 Active Medications Albuterol/Ipratropium (Duoneb -) 1 amp NEB RQID [facility] Last Admin: 04/21/17 20:31 Dose: 1 amp Apixaban (Eliquis -) 5 mg PO BID [facility] Last Admin: 04/22/17 10:30 Dose: 5 mg Atorvastatin Calcium (Lipitor -) 10 mg PO HS [facility] Calcium Carbonate (Calcium Carbonate -) 650 mg PO DAILY [facility] Last Admin: 04/22/17 10:30 Dose: 650 mg Docusate Sodium (Colace -) 100 mg PO BID [facility] Last Admin: 04/22/17 10:31 Dose: 100 mg Ferrous Sulfate (Feosol -) 325 mg PO BID [facility] Last Admin: 04/22/17 10:30 Dose: 325 mg Furosemide (Lasix -) 20 mg PO DAILY [facility] Last Admin: 04/22/17 10:30 Dose: 20 mg Insulin Aspart (Novolog Vial Sliding Scale -) 1 vial SQ ACHS [facility] PRN Reason: Protocol Last Admin: 04/22/17 14:35 Dose: Not Given Lisinopril (Prinivil) 10 mg PO DAILY [facility] Last Admin: 04/22/17 10:30 Dose: 10 mg Methylprednisolone Sodium Succinate (Solu-Medrol -) 40 mg IVPUSH Q6H-IV [facility] Last Admin: 04/22/17 14:40 Dose: 40 mg Mirtazapine (Remeron -) 15 mg PO HS [facility] Montelukast Sodium (Singulair -) 10 mg PO HS [facility] Pregabalin (Lyrica -) 75 mg PO BID [facility] Last Admin: 04/22/17 10:38 Dose: 75 mg Ranitidine HCl (Zantac -) 150 mg PO BID [facility] Last Admin: 04/22/17 10:30 Dose: 150 mg GENERAL: Somnolent but arousable on NC O2, mildly tachypneic at rest HEAD: No signs of trauma, normocephalic, atraumatic EYES: sclera anicteric, conjunctiva clear ENT: oropharynx clear without exudates. Moist mucosa NECK: Normal ROM, supple, no lymphadenopathy, JVD, or masses LUNGS: Diffuse bilateral wheeze and rhonchi HEART: S1 and S2, no murmurs, rubs or gallops ABDOMEN: Soft, nontender, normoactive bowel sounds. No guarding, no rebound. No masses EXTREMITIES: (-) edema. No clubbing or cyanosis. NEUROLOGICAL: Somnolent, Non-focal SKIN: Warm, Dry, normal turgor, no rashes or lesions noted. Laboratory Results - last 24 hr 04/21/17 04/21/17 04/21/17 15:10 19:05 20:46 Anticoagulation Therapy No Result Required. Puncture Site Right radial ABG pH 7.35 ABG pCO2 at Pt Temp 66.5 H* ABG pO2 at Pt Temp 81.8 ABG HCO3 36.0 H ABG O2 Sat (Measured) 94.8 ABG O2 Content 21.8 ABG Base Excess 7.7 H Tanner Test Positive VBG pH 7.32 POC VBG pCO2 77.0 H* POC VBG pO2 16.0 L* D Mixed VBG HCO3 38.6 H Carboxyhemoglobin 1.6 Methemoglobin 0.4 O2 Delivery Device Other Oxygen Flow Rate 35% Vent Mode 15/5 Vent Rate 10 Mechanical Rate Bepap PEEP 0.0 Pressure Support Vent 15/5 POC Glucometer Troponin I < 0.02 04/22/17 11:24 Anticoagulation Therapy Puncture Site ABG pH ABG pCO2 at Pt Temp ABG pO2 at Pt Temp ABG HCO3 ABG O2 Sat (Measured) ABG O2 Content ABG Base Excess Tanner Test VBG pH POC VBG pCO2 POC VBG pO2 Mixed VBG HCO3 Carboxyhemoglobin Methemoglobin O2 Delivery Device Oxygen Flow Rate Vent Mode Vent Rate Mechanical Rate PEEP Pressure Support Vent POC Glucometer 362 Troponin I Problem List - Problems (1) Hypercarbia Code(s): R06.89 - OTHER ABNORMALITIES OF BREATHING (2) Acute on chronic respiratory failure with hypoxia and hypercapnia Code(s): J96.21 - ACUTE AND CHRONIC RESPIRATORY FAILURE WITH HYPOXIA; J96.22 - ACUTE AND CHRONIC RESPIRATORY FAILURE WITH HYPERCAPNIA (3) Allergy to multiple antibiotics Code(s): Z88.1 - ALLERGY STATUS TO OTHER ANTIBIOTIC AGENTS STATUS (4) COPD (chronic obstructive pulmonary disease) Code(s): J44.9 - CHRONIC OBSTRUCTIVE PULMONARY DISEASE, UNSPECIFIED (5) COPD exacerbation Code(s): J44.1 - CHRONIC OBSTRUCTIVE PULMONARY DISEASE W (ACUTE) EXACERBATION (6) ICD (implantable cardioverter-defibrillator), dual, in situ Code(s): Z95.810 - PRESENCE OF AUTOMATIC (IMPLANTABLE) CARDIAC DEFIBRILLATOR (7) Obstructive sleep apnea Code(s): G47.33 - OBSTRUCTIVE SLEEP APNEA (ADULT) (PEDIATRIC) (8) Respiratory failure Code(s): J96.90 - RESPIRATORY FAILURE, UNSP, UNSP W HYPOXIA OR HYPERCAPNIA (9) SOB (shortness of breath) Code(s): R06.02 - SHORTNESS OF BREATH (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 Code(s): 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 (11) Sarcoidosis of lung Code(s): D86.0 - SARCOIDOSIS OF LUNG (12) Diastolic CHF Code(s): I50.30 - UNSPECIFIED DIASTOLIC (CONGESTIVE) HEART FAILURE (13) IDDM (insulin dependent diabetes mellitus) Code(s): E11.9 - TYPE 2 DIABETES MELLITUS WITHOUT COMPLICATIONS; Z79.4 - CURBING STONECUTTER (CURRENT) USE OF INSULIN IMP ACUTE ON CHRONIC HYPOXEMIC/HYPERCAPNEIC RESPIRATORY FAILURE ADVANCED PULMONARY SARCOID PULMONARY FIBROSIS SECONDARY TO SARCOID CARDIAC SARCOID S/P AICD DIASTOLIC HF OSVALDO COPD PULMONARY HTN HTN DM PLAN INHALED BRONCHODILATORS O2 TO MAINTAIN SATURATION IV STEROIDS MONITOR OFF ABX LASIX DAILY WTS [facility]
[2017-04-22] MEDS ORDERED: INSULIN (NOVOLOG) ASPART 100 UNITS/ML 10ML VIAL ONE (16:56)
[2017-04-22] MEDS: ATORVASTATIN CA 10 MG TABLET (FP) PO SCH (21:20)
[2017-04-22] MEDS: MONTELUKAST NA 10 MG TABLET PO SCH (21:20)
[2017-04-22] MEDS: MIRTAZAPINE 15 MG TABLET (FP) PO SCH (21:33)
--- NOTE | 2017-04-23 00:04 | PN ---
Progress Note (short form) - Note Progress Note: Patient seen and examined in the ER still awaiting bed wearing bipap somnolence / difficult to communicate Vital Signs Period Temp Pulse Resp BP Sys/Londono Pulse Ox Last 24 Hr 97.6 F-98.2 F 75-102 17-20 97-107/61-75 97-100 sitting up in bed bipap in place neck -JVD heart S1/S2 lungs decresed bs / scattered rhonchi abd soft non tender ext ++edema bilat right >left CBC, BMP 04/21/17 12:10 04/21/17 12:07 Active Medications Albuterol/Ipratropium (Duoneb -) 1 amp NEB RQID [facility] Last Admin: 04/22/17 20:56 Dose: 1 amp Apixaban (Eliquis -) 5 mg PO BID [facility] Last Admin: 04/22/17 21:20 Dose: 5 mg Atorvastatin Calcium (Lipitor -) 10 mg PO HS [facility] Last Admin: 04/22/17 21:20 Dose: 10 mg Calcium Carbonate (Calcium Carbonate -) 650 mg PO DAILY [facility] Last Admin: 04/22/17 10:30 Dose: 650 mg Docusate Sodium (Colace -) 100 mg PO BID [facility] Last Admin: 04/22/17 21:20 Dose: 100 mg Ferrous Sulfate (Feosol -) 325 mg PO BID [facility] Last Admin: 04/22/17 21:20 Dose: 325 mg Furosemide (Lasix -) 20 mg PO DAILY [facility] Last Admin: 04/22/17 10:30 Dose: 20 mg Insulin Aspart (Novolog Vial Sliding Scale -) 1 vial SQ ACHS [facility] PRN Reason: Protocol Last Admin: 04/22/17 21:20 Dose: 10 units Lisinopril (Prinivil) 10 mg PO DAILY [facility] Last Admin: 04/22/17 10:30 Dose: 10 mg Methylprednisolone Sodium Succinate (Solu-Medrol -) 40 mg IVPUSH Q6H-IV [facility] Last Admin: 04/22/17 21:20 Dose: 40 mg Mirtazapine (Remeron -) 15 mg PO HS [facility] Last Admin: 04/22/17 21:33 Dose: Not Given Montelukast Sodium (Singulair -) 10 mg PO HS [facility] Last Admin: 04/22/17 21:20 Dose: 10 mg Pregabalin (Lyrica -) 75 mg PO BID [facility] Last Admin: 04/22/17 21:20 Dose: 75 mg Ranitidine HCl (Zantac -) 150 mg PO BID [facility] Last Admin: 04/22/17 21:20 Dose: 150 mg # acute on chronic respiratory failure hypercapnia / hypoxemia Bipap / O2 / steroid dependant # 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 Chronic hypoxemia / hypercapnia Cardiac Sarcoid >>s/p AICD lifelong steroids # pHTN # HF diastolic +2 edema Lasix IV follow lytes / daily wieghts / # OSVALDO # HTN resume home meds monitor Bp # DM sliding scale Problem List - Problems (1) Acute on chronic respiratory failure with hypoxia and hypercapnia Code(s): J96.21 - ACUTE AND CHRONIC RESPIRATORY FAILURE WITH HYPOXIA; J96.22 - ACUTE AND CHRONIC RESPIRATORY FAILURE WITH HYPERCAPNIA (2) CHF (congestive heart failure) Code(s): I50.9 - HEART FAILURE, UNSPECIFIED Qualifiers: Congestive heart failure type: unspecified Congestive heart failure chronicity: unspecified Qualified Code(s): I50.9 - Heart failure, unspecified (3) Hypercarbia Code(s): R06.89 - OTHER ABNORMALITIES OF BREATHING (4) Somnolence Code(s): R40.0 - SOMNOLENCE (5) SHERRI (acute kidney injury) Code(s): N17.9 - ACUTE KIDNEY FAILURE, UNSPECIFIED (6) Abdominal pain Code(s): R10.9 - UNSPECIFIED ABDOMINAL PAIN (7) Allergy to multiple antibiotics Code(s): Z88.1 - ALLERGY STATUS TO OTHER ANTIBIOTIC AGENTS STATUS (8) COPD exacerbation Code(s): J44.1 - CHRONIC OBSTRUCTIVE PULMONARY DISEASE W (ACUTE) EXACERBATION (9) Chronic low back pain Code(s): M54.5 - LOW BACK PAIN; G89.29 - OTHER CHRONIC PAIN (10) ICD (implantable cardioverter-defibrillator), dual, in situ Code(s): Z95.810 - PRESENCE OF AUTOMATIC (IMPLANTABLE) CARDIAC DEFIBRILLATOR (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
[2017-04-23] MEDS: methylPREDNISolone NA SUCC 40 MG/1 ML VIAL IVPUSH SCH ×2 (02:26→09:27)
[2017-04-23] MEDS ORDERED: MAG HYDROX/AL HYDROX/SIMETH 30 ML UNIT-DOSE CUP PO PRN (03:21)
[2017-04-23] MEDS ORDERED: ACETAMINOPHEN 500 MG TABLET (FP) PO PRN (03:21)
[2017-04-23] MEDS: INSULIN SLIDING SCALE (NOVOLOG) 1 VIAL SQ SCH ×4 (06:41→22:09)
[2017-04-23] MEDS: ALBUTEROL SO4 2.5/IPRATROPIUM 0.5 INH SOL 3 ML VIAL.NEB. NEB SCH ×4 (07:35→22:32)
[2017-04-23 08:09] LABS: ALBUMIN 2.7 g/dl (3.4-5.0); ANION GAP 7 (8-16); CALCIUM 8.6 mg/dL (8.5-10.1); CHLORIDE 95 mmol/L (98-107); CO2 35 mmol/L (21-32); GLUCOSE,RANDOM 233 mg/dL (74-106); HEMATOCRIT 35.6 % (32.4-45.2); HEMOGLOBIN 10.7 GM/dL (10.7-15.3); MAGNESIUM 1.8 mg/dL (1.8-2.4); MCH 26.4 pg (25.7-33.7); MCHC 30.2 g/dl (32.0-36.0); MEAN CELL VOLUME 87.7 fl (80-96); MEAN PLT VOLUME 8.9 fl (7.5-11.1); PLATELET COUNT 322 K/MM3 (134-434); POTASSIUM 4.5 mmol/L (3.5-5.1); RBC 4.06 M/mm3 (3.60-5.2); SGOT/AST 20 U/L (15-37); SGPT/ALT 16 U/L (12-78); SODIUM 137 mmol/L (136-145); WHITE BLOOD COUNT 10.1 K/mm3 (4.0-10.0)
[2017-04-23 08:15] LABS: ALK PHOS 69 U/L (45-117); BILIRUBIN,TOTAL 0.3 mg/dL (0.2-1.0); BLOOD UREA NITROGEN 30 mg/dL (7-18); CREATININE 0.7 mg/dL (0.55-1.02); TOT PROT 7.2 g/dl (6.4-8.2)
[2017-04-23] MEDS ORDERED: PT OWN MED DRAWER 7, Y5N ONE ×2 (09:16→10:38)
[2017-04-23] MEDS: CALCIUM CARBONATE 650 MG TABLET PO SCH (09:27)
[2017-04-23] MEDS: DOCUSATE SODIUM 100 MG CAPSULE (FP) PO SCH ×2 (09:27→22:03)
[2017-04-23] MEDS: APIXABAN 5 MG TABLET PO SCH ×2 (09:27→22:03)
[2017-04-23] MEDS: FUROSEMIDE 40 MG/4 ML INJECTABLE VIAL IVPUSH SCH (09:27)
[2017-04-23] MEDS: LISINOPRIL 10 MG TABLET (FP) PO SCH (09:27)
[2017-04-23] MEDS: FERROUS SO4 325 MG TABLET (FP) PO SCH ×2 (09:27→22:03)
[2017-04-23] MEDS: RANITIDINE HCL 150 MG TABLET (FP) PO SCH ×2 (09:27→22:03)
[2017-04-23] MEDS: PREGABALIN 75 MG CAPSULE PO SCH ×2 (09:27→22:03)
--- NOTE | 2017-04-23 12:01 | PN ---
Progress Note (short form) - Note Progress Note: PULMONARY AFEBRILE OOB TO CHAIR "I'M [place] AND WANT TO GO TO [facility]" ANICTERIC SCATTERED RHONCHI S1S2 BS+ OBESE NO EDEMA LABS/MEDS/NOTES/IMAGES REVIEWED IMP ACUTE ON CHRONIC HYPOXEMIC/HYPERCAPNEIC RESPIRATORY FAILURE ADVANCED PULMONARY SARCOID PULMONARY FIBROSIS SECONDARY TO SARCOID CARDIAC SARCOID S/P AICD DIASTOLIC HF OSVALDO COPD PULMONARY HTN HTN DM PLAN INHALED BRONCHODILATORS O2 TO MAINTAIN SATURATION STEROIDS CHANGED TO ORAL MONITORING OFF ABX LASIX DAILY WTS BG [facility] NO OBJECTION TO TRANSFER TO SNF TO CONTINUE TREATMENT Yousif DENISE MD
[2017-04-23] MEDS ORDERED: INSULIN (NOVOLOG) ASPART 100 UNITS/ML 10ML VIAL ONE (12:13)
[2017-04-23] MEDS: predniSONE 20 MG TABLET (UD) PO SCH (12:18)
--- NOTE | 2017-04-23 13:11 | HP ---
Admitting History and Physical - Admission Chief Complaint: "I feel better and want to go back to [facility] [place] home.I can walk to bathroom wiothout SOB." History Source: Patient Limitations to Obtaining History: No Limitations - Past Medical History Cardiovascular: Yes: CHF (likely normal LVEF on ECHO this admission), Deep Vein Thrombosis, HTN, Pulmonary Hypertension, Other (Sarcoidosis with cardiac involvement and history of VT s/p ICD) Pulmonary: Yes: Asthma, COPD, O2 Dependent, Pulmonary Fibrosis, Sleep Apnea, Other (Sarcoidosis with cardiac involvement) Gastrointestinal: Yes: GERD, Other (hepatitis C) Hepatobiliary: Yes: Hepatitis C ...: No Heme/Onc: Yes: Anemia Infectious Disease: Yes: Other (HEP C) Musculoskeletal: Yes: Chronic low back pain (spinal cord stimulator) Rheumatology: Yes: Sarcoidosis (cardiac and pulmonary) Endocrine: Yes: Diabetes Mellitus - Past Surgical History Past Surgical History: Yes: AICD, Laminectomy, Permanent Pacemaker (ICD. ) - Advance Directives Advance Directives: Yes: MOLST - Smoking History Smoking history: Unknown if ever smoked Have you smoked in the past 12 months: No Aproximately how many cigarettes per day: 0 - Alcohol/Substance Use Hx Alcohol Use: No - Social History ADL: Support Services History of Recent Travel: No Home Medications - Allergies Allergies/Adverse Reactions: Allergies Allergy/AdvReac Type Severity Reaction Status Date / Time medroxyprogesterone acetate Allergy Severe stepehns Verified 04/21/17 11:36 [From Depo-Provera] josé syndrome amoxicillin trihydrate Allergy Verified 04/21/17 11:36 [From Augmentin] aspirin Allergy Verified 04/21/17 11:36 azithromycin [From Zithromax] Allergy Dewey Verified 04/21/17 11:36 José syndrome ciprofloxacin HCl Allergy Verified 04/21/17 11:36 [From Cipro] codeine [Codeine] Allergy Verified 04/21/17 11:36 Iodinated Contrast- Oral and Allergy Verified 04/21/17 11:36 IV Dye [IV Dye, Iodine Containing Contrast ] ketorolac tromethamine Allergy Verified 04/21/17 11:36 [From Toradol] levofloxacin [From Levaquin] Allergy Verified 04/21/17 11:36 metronidazole [From Flagyl] Allergy Verified 04/21/17 11:36 nalbuphine HCl [From Nubain] Allergy CYANOSIS Verified 04/21/17 11:36 potassium clavulanate Allergy Verified 04/21/17 11:36 [From Augmentin] Shellfish Allergy Verified 04/21/17 11:36 sulfamethoxazole Allergy Verified 04/21/17 11:36 [From Bactrim] trimethoprim [From Bactrim] Allergy Verified 04/21/17 11:36 ivp dye Allergy Severe Swelling Uncoded 04/21/17 11:36 - Home Medications Home Medications: Ambulatory Orders Albuterol 0.083% Nebulizer Gisela [Ventolin 0.083% Nebulizer Soln -] 1 neb NEB Q4H 03/10/17 Montelukast Na [Singulair -] 10 mg PO HS 03/10/17 Albuterol 2.5/Ipratropium 0.5 [Duoneb -] 1 amp NEB Q4H PRN amp 03/11/17 Albuterol 2.5/Ipratropium 0.5 [Duoneb -] 1 amp NEB QIDR amp 03/11/17 Apixaban [Eliquis -] 5 mg PO BID 30 Days #60 tablet 03/11/17 Atorvastatin Ca [Lipitor] 10 mg PO HS tablet 03/11/17 Ferrous Sulfate [Feosol] 325 mg PO BID ud 03/11/17 Furosemide [Lasix -] 20 mg PO DAILY tablet 03/11/17 Lisinopril [Prinivil] 10 mg PO DAILY tablet 03/11/17 Calcium Carbonate [Calcium] 600 mg PO BID 04/21/17 Collagenase Clostridium Hist. [Santyl] 1 applic TP DAILY 04/21/17 Hydromorphone [Dilaudid -] 1 mg PO Q6H 04/21/17 Prednisone [Deltasone -] 30 mg PO DAILY 04/21/17 Ranitidine HCl [Zantac] 150 mg PO DAILY 04/21/17 Sennosides [Senna] 2 tab PO HS 04/21/17 Albuterol 2.5/Ipratropium 0.5 [Duoneb -] 1 neb IH QID 04/22/17 Albuterol 2.5/Ipratropium 0.5 [Duoneb -] 1 neb NEB Q4H PRN 04/22/17 Docusate Sodium [Colace -] 300 mg PO HS 04/22/17 Insulin (Levemir) [Levemir Flexpen -] 25 units SQ HS 04/22/17 Insulin (Novolog) [Novolog] 0 units SQ ACHS 04/22/17 Mirtazapine [Remeron -] 30 mg PO HS 04/22/17 Pregabalin [Lyrica -] 75 mg PO Q12H 04/22/17 Sodium Chloride [[place] Nasal [place]] 1 spray BID 04/22/17 Family Disease History - Family Disease History Family Disease History: Other: Mother (3 CVAs, the first in her 60s) Physical Examination Vital Signs: Vital Signs Temperature 97.9 F 04/23/17 06:13 Pulse Rate 65 04/23/17 06:13 Respiratory Rate 20 04/23/17 09:00 Blood Pressure 147/97 04/23/17 06:13 O2 Sat by Pulse Oximetry (%) 93 L 04/23/17 09:00 Labs: CBC, BMP 04/23/17 06:30 04/23/17 06:30
--- NOTE | 2017-04-23 13:31 | PN ---
Progress Note (short form) - Note Progress Note: HPI: 62 y/o black female seen for evaluation of progress. Found sitting in bed with O2 in place via nasal cannula. States, " I can walk to bathroom without SOB. I want to go back to [facility] home." Vital Signs Period Temp Pulse Resp BP Sys/Londono Pulse Ox Last 24 Hr 97.9 F-98.2 F 65-102 18-20 107-147/61-97 93-98 Physical Exam HEENT- Normocephalic Neck-Supple Lungs- CTAB Heart-RRR Abd- Soft, NT, Pos BS x 4 Ext- B/L Trace edema CBC, BMP 04/23/17 06:30 04/23/17 CBC, BMP
--- NOTE | 2017-04-23 14:03 | PN ---
Progress Note (short form) - Note Progress Note: HPI: Pt seen for evaluation of progress. Pt found sitting in bed with O2 in place via nasal cannula. States, "I can walk to bathroom without SOB. I want to go back to [facility] [place] [facility] home." Vital Signs Period Temp Pulse Resp BP Sys/Londono Pulse Ox Last 24 Hr 97.9 F-98.2 F 65-102 18-20 107-147/61-97 93 Physical Exam HEENT- Normocephalic Neck- Supple Lungs- CTAB Heart- RRR Abd- Soft, NT, Pos BS x 4 Ext- Trace Edema B/L CBC, BMP 04/23/17 06:30 04/23/17 06:30 Active Medications Acetaminophen (Tylenol -) 1,000 mg PO Q6H PRN PRN Reason: FEVER Al Hydroxide/Mg Hydroxide (Mylanta Oral Suspension -) 30 ml PO Q6H PRN PRN Reason: INDIGESTION Albuterol/Ipratropium (Duoneb -) 1 amp NEB RQID [facility] Last Admin: 04/23/17 07:35 Dose: 1 amp Apixaban (Eliquis -) 5 mg PO BID [facility] Last Admin: 04/23/17 09:27 Dose: 5 mg Atorvastatin Calcium (Lipitor -) 10 mg PO HS [facility] Last Admin: 04/22/17 21:20 Dose: 10 mg Calcium Carbonate (Calcium Carbonate -) 650 mg PO DAILY [facility] Last Admin: 04/23/17 09:27 Dose: 650 mg Docusate Sodium (Colace -) 100 mg PO BID [facility] Last Admin: 04/23/17 09:27 Dose: 100 mg Ferrous Sulfate (Feosol -) 325 mg PO BID [facility] Last Admin: 04/23/17 09:27 Dose: 325 mg Furosemide (Lasix Injection -) 40 mg IVPUSH DAILY [facility] Last Admin: 04/23/17 09:27 Dose: Not Given Insulin Aspart (Novolog Vial Sliding Scale -) 1 vial SQ ACHS [facility] PRN Reason: Protocol Last Admin: 04/23/17 12:20 Dose: 6 units Lisinopril (Prinivil) 10 mg PO DAILY [facility] Last Admin: 04/23/17 09:27 Dose: Not Given Mirtazapine (Remeron -) 15 mg PO HS [facility] Last Admin: 04/22/17 21:33 Dose: Not Given Montelukast Sodium (Singulair -) 10 mg PO [facility] Last Admin: 04/22/17 21:20 Dose: 10 mg Prednisone (Deltasone -) 40 mg PO DAILY [facility] Last Admin: 04/23/17 12:18 Dose: 40 mg Pregabalin (Lyrica -) 75 mg PO BID [facility] Last Admin: 04/23/17 09:27 Dose: 75 mg Ranitidine HCl (Zantac -) 150 mg PO BID [facility] Last Admin: 04/23/17 09:27 Dose: 150 mg # acute on chronic respiratory failure hypercapnia / Less hypoxic Bipap / O2 / steroid dependent # 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
[2017-04-23] MEDS ORDERED: SODIUM CHLORIDE NASAL SPRAY 44 ML BOTTLE NS PRN (15:24)
[2017-04-23] MEDS: MIRTAZAPINE 15 MG TABLET (FP) PO SCH ×2 (22:03→22:16)
[2017-04-23] MEDS: ATORVASTATIN CA 10 MG TABLET (FP) PO SCH (22:03)
[2017-04-23] MEDS: MONTELUKAST NA 10 MG TABLET PO SCH (22:03)
[2017-04-24] MEDS: INSULIN SLIDING SCALE (NOVOLOG) 1 VIAL SQ SCH ×4 (06:34→21:37)
[2017-04-24] MEDS: ALBUTEROL SO4 2.5/IPRATROPIUM 0.5 INH SOL 3 ML VIAL.NEB. NEB SCH ×4 (08:33→20:42)
[2017-04-24] MEDS ORDERED: PT OWN MED DRAWER 7, Y5N ONE ×2 (09:45→12:26)
[2017-04-24] MEDS: DOCUSATE SODIUM 100 MG CAPSULE (FP) PO SCH ×2 (09:47→21:27)
[2017-04-24] MEDS: CALCIUM CARBONATE 650 MG TABLET PO SCH (09:47)
[2017-04-24] MEDS: FUROSEMIDE 40 MG/4 ML INJECTABLE VIAL IVPUSH SCH (09:47)
[2017-04-24] MEDS: PREGABALIN 75 MG CAPSULE PO SCH ×2 (09:47→21:27)
[2017-04-24] MEDS: FERROUS SO4 325 MG TABLET (FP) PO SCH ×2 (09:47→21:27)
[2017-04-24] MEDS: predniSONE 20 MG TABLET (UD) PO SCH (09:47)
[2017-04-24] MEDS: APIXABAN 5 MG TABLET PO SCH ×2 (09:47→21:27)
[2017-04-24] MEDS: LISINOPRIL 10 MG TABLET (FP) PO SCH (09:47)
[2017-04-24] MEDS: RANITIDINE HCL 150 MG TABLET (FP) PO SCH ×2 (09:47→21:27)
--- NOTE | 2017-04-24 13:29 | PN ---
Progress Note (short form) - Note Progress Note: PULMONARY States breathing is at baseline. Minimal cough and wheezing. Last Vital Signs Temp Pulse Resp BP Pulse Ox 97.8 F 103 H 20 126/83 94 L 04/24/17 10:00 04/24/17 10:00 04/24/17 10:00 04/24/17 10:00 04/24/17 09:00 Gen: NAD at rest Heart: RRR Lung: bibasilar rales Abd: soft, nontender Ext: no edema CBC, BMP 04/23/17 06:30 04/23/17 06:30 Active Medications Acetaminophen (Tylenol -) 1,000 mg PO Q6H PRN PRN Reason: FEVER Al Hydroxide/Mg Hydroxide (Mylanta Oral Suspension -) 30 ml PO Q6H PRN PRN Reason: INDIGESTION Albuterol/Ipratropium (Duoneb -) 1 amp NEB RQID [facility] Last Admin: 04/24/17 08:33 Dose: 1 amp Apixaban (Eliquis -) 5 mg PO BID [facility] Last Admin: 04/24/17 09:47 Dose: 5 mg Atorvastatin Calcium (Lipitor -) 10 mg PO HS [facility] Last Admin: 04/23/17 22:03 Dose: 10 mg Calcium Carbonate (Calcium Carbonate -) 650 mg PO DAILY [facility] Last Admin: 04/24/17 09:47 Dose: 650 mg Docusate Sodium (Colace -) 100 mg PO BID [facility] Last Admin: 04/24/17 09:47 Dose: 100 mg Ferrous Sulfate (Feosol -) 325 mg PO BID [facility] Last Admin: 04/24/17 09:47 Dose: 325 mg Furosemide (Lasix Injection -) 40 mg IVPUSH DAILY [facility] Last Admin: 04/24/17 09:47 Dose: 40 mg Insulin Aspart (Novolog Vial Sliding Scale -) 1 vial SQ ACHS [facility] PRN Reason: Protocol Last Admin: 04/24/17 11:51 Dose: 2 units Lisinopril (Prinivil) 10 mg PO DAILY [facility] Last Admin: 04/24/17 09:47 Dose: 10 mg Mirtazapine (Remeron -) 15 mg PO HS [facility] Last Admin: 04/23/17 22:16 Dose: Not Given Montelukast Sodium (Singulair -) 10 mg PO [facility] Last Admin: 04/23/17 22:03 Dose: 10 mg Prednisone (Deltasone -) 40 mg PO DAILY [facility] Last Admin: 04/24/17 09:47 Dose: 40 mg Pregabalin (Lyrica -) 75 mg PO BID [facility] Last Admin: 04/24/17 09:47 Dose: 75 mg Ranitidine HCl (Zantac -) 150 mg PO BID [facility] Last Admin: 04/24/17 09:47 Dose: 150 mg Sodium Chloride ([place] Nasal [place] -) 1 spray NS Q6H PRN PRN Reason: NASAL CONGESTION Last Admin: 04/23/17 17:05 Dose: 1 spray A/P Acute on Chronic Hypoxic and Hypercapneic Respiratory Failure COPD Sarcoid/Pulmonary Fibrosis LV Diastolic Dysfunction Pulmonary HTN OSVALDO HTN DM h/o DVT - prednisone taper - inhaled bronchodilators - O2 to keep SpO2 >90% - BiPAP at night and PRN during day - lasix - monitor urine output, creatinine - continue anticoagulation
--- NOTE | 2017-04-24 15:25 | PN ---
Progress Note (short form) - Note Progress Note: patient seen and examined in room reports expectorating "green phlem " awake / alert / interactive / [facility] to go back to [facility] - "she is getting better" Vital Signs Period Temp Pulse Resp BP Sys/Londono Pulse Ox Last 24 Hr 97.6 F-98.2 F 75-102 17-20 97-107/61-75 97-100 sitting in bed awake / alert O2 in place neck -JVD heart S1/S2 lungs decresed bs / scattered rhonchi / wheezing on left mid field abd soft non tender ext ++edema bilat left >right CBC, BMP 04/23/17 06:30 04/23/17 06:30 active meds Albuterol/Ipratropium (Duoneb -) 1 amp NEB RQID [facility] Last Admin: 04/22/17 20:56 Dose: 1 amp Apixaban (Eliquis -) 5 mg PO BID [facility] Last Admin: 04/22/17 21:20 Dose: 5 mg Atorvastatin Calcium (Lipitor -) 10 mg PO [facility] Last Admin: 04/22/17 21:20 Dose: 10 mg Calcium Carbonate (Calcium Carbonate -) 650 mg PO DAILY [facility] Last Admin: 04/22/17 10:30 Dose: 650 mg Docusate Sodium (Colace -) 100 mg PO BID [facility] Last Admin: 04/22/17 21:20 Dose: 100 mg Ferrous Sulfate (Feosol -) 325 mg PO BID [facility] Last Admin: 04/22/17 21:20 Dose: 325 mg Furosemide (Lasix -) 20 mg PO DAILY [facility] Last Admin: 04/22/17 10:30 Dose: 20 mg Insulin Aspart (Novolog Vial Sliding Scale -) [address] [facility] PRN Reason: Protocol Last Admin: 04/22/17 21:20 Dose: 10 units Lisinopril (Prinivil) 10 mg PO DAILY [facility] Last Admin: 04/22/17 10:30 Dose: 10 mg Methylprednisolone Sodium Succinate (Solu-Medrol -) 40 mg IVPUSH Q6H-IV [facility] Last Admin: 04/22/17 21:20 Dose: 40 mg Mirtazapine (Remeron -) 15 mg PO [facility] Last Admin: 04/22/17 21:33 Dose: Not Given Montelukast Sodium (Singulair -) 10 mg PO [facility] Last Admin: 04/22/17 21:20 Dose: 10 mg Pregabalin (Lyrica -) 75 mg PO BID [facility] Last Admin: 04/22/17 21:20 Dose: 75 mg Ranitidine HCl (Zantac -) 150 mg PO BID [facility] Last Admin: 04/22/17 21:20 Dose: 150 mg # acute on chronic respiratory failure hypercapnia / hypoxemia Bipap / O2 / steroid dependant # 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 Chronic hypoxemia / hypercapnia Cardiac Sarcoid >>s/p AICD lifelong steroids # pHTN # HF diastolic +2 edema Lasix IV --- change to PO follow lytes / daily wieghts / # OSVALDO # HTN resume home meds monitor Bp # DM sliding scale #### awaiting insurance authorization for transfer back to [facility] #### Problem List - Problems (1) Acute on chronic respiratory failure with hypoxia and hypercapnia Code(s): J96.21 - ACUTE AND CHRONIC RESPIRATORY FAILURE WITH HYPOXIA; J96.22 - ACUTE AND CHRONIC RESPIRATORY FAILURE WITH HYPERCAPNIA (2) CHF (congestive heart failure) Code(s): I50.9 - HEART FAILURE, UNSPECIFIED Qualifiers: Congestive heart failure type: unspecified Congestive heart failure chronicity: unspecified Qualified Code(s): I50.9 - Heart failure, unspecified (3) Hypercarbia Code(s): R06.89 - OTHER ABNORMALITIES OF BREATHING (4) Somnolence Code(s): R40.0 - SOMNOLENCE (5) SHERRI (acute kidney injury) Code(s): N17.9 - ACUTE KIDNEY FAILURE, UNSPECIFIED (6) Abdominal pain Code(s): R10.9 - UNSPECIFIED ABDOMINAL PAIN (7) Allergy to multiple antibiotics Code(s): Z88.1 - ALLERGY STATUS TO OTHER ANTIBIOTIC AGENTS STATUS (8) COPD exacerbation Code(s): J44.1 - CHRONIC OBSTRUCTIVE PULMONARY DISEASE W (ACUTE) EXACERBATION (9) Chronic low back pain Code(s): M54.5 - LOW BACK PAIN; G89.29 - OTHER CHRONIC PAIN (10) ICD (implantable cardioverter-defibrillator), dual, in situ Code(s): Z95.810 - PRESENCE OF AUTOMATIC (IMPLANTABLE) CARDIAC DEFIBRILLATOR (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
[2017-04-24] MEDS: AMINO ACIDS/PROTEIN HYDROLYS 30 ML LIQUID.PKT PO SCH (17:41)
[2017-04-24] MEDS ORDERED: INSULIN (NOVOLOG) ASPART 100 UNITS/ML 10ML VIAL SQ ONE (18:45)
[2017-04-24] MEDS: MIRTAZAPINE 15 MG TABLET (FP) PO SCH (21:27)
[2017-04-24] MEDS: ATORVASTATIN CA 10 MG TABLET (FP) PO SCH (21:27)
[2017-04-24] MEDS: MONTELUKAST NA 10 MG TABLET PO SCH (21:33)
[2017-04-25] MEDS: INSULIN SLIDING SCALE (NOVOLOG) 1 VIAL SQ SCH ×4 (06:43→22:37)
[2017-04-25] MEDS: ALBUTEROL SO4 2.5/IPRATROPIUM 0.5 INH SOL 3 ML VIAL.NEB. NEB SCH ×4 (08:31→20:45)
[2017-04-25] MEDS ORDERED: PT OWN MED DRAWER 7, Y5N ONE (09:42)
[2017-04-25] MEDS: LISINOPRIL 10 MG TABLET (FP) PO SCH (09:46)
[2017-04-25] MEDS: RANITIDINE HCL 150 MG TABLET (FP) PO SCH ×2 (09:46→22:36)
[2017-04-25] MEDS: APIXABAN 5 MG TABLET PO SCH ×2 (09:46→22:36)
[2017-04-25] MEDS: PREGABALIN 75 MG CAPSULE PO SCH ×2 (09:46→22:36)
[2017-04-25] MEDS: FERROUS SO4 325 MG TABLET (FP) PO SCH ×2 (09:46→22:36)
[2017-04-25] MEDS: DOCUSATE SODIUM 100 MG CAPSULE (FP) PO SCH ×2 (09:46→22:36)
[2017-04-25] MEDS: predniSONE 20 MG TABLET (UD) PO SCH (09:46)
[2017-04-25] MEDS: FUROSEMIDE 40 MG TABLET (FP) PO SCH (09:46)
[2017-04-25] MEDS: CALCIUM CARBONATE 650 MG TABLET PO SCH (09:47)
[2017-04-25] MEDS: AMINO ACIDS/PROTEIN HYDROLYS 30 ML LIQUID.PKT PO SCH ×2 (09:47→18:16)
--- NOTE | 2017-04-25 11:52 | PN ---
Progress Note (short form) - Note Progress Note: PULMONARY More somonlent today but easily arousable. States breathing is at baseline. Minimal cough and wheezing. Last Vital Signs Temp Pulse Resp BP Pulse Ox 98.0 F 85 20 120/72 97 04/25/17 10:00 04/25/17 10:00 04/25/17 10:00 04/25/17 10:00 04/24/17 21:00 Gen: NAD at rest Heart: RRR Lung: bibasilar rales Abd: soft, nontender Ext: no edema CBC, BMP 04/23/17 06:30 04/23/17 06:30 Active Medications Acetaminophen (Tylenol -) 1,000 mg PO Q6H PRN PRN Reason: FEVER Al Hydroxide/Mg Hydroxide (Mylanta Oral Suspension -) 30 ml PO Q6H PRN PRN Reason: INDIGESTION Last Admin: 04/25/17 10:57 Dose: 30 ml Albuterol/Ipratropium (Duoneb -) 1 amp NEB RQID [facility] Last Admin: 04/24/17 20:42 Dose: 1 amp Amino Acids (Prosource No Carb Liquid Pkt) 30 ml PO BID@0800,1730 [facility] Last Admin: 04/25/17 09:47 Dose: 30 ml Apixaban (Eliquis -) 5 mg PO BID [facility] Last Admin: 04/25/17 09:46 Dose: 5 mg Atorvastatin Calcium (Lipitor -) 10 mg PO HS [facility] Last Admin: 04/24/17 21:27 Dose: 10 mg Calcium Carbonate (Calcium Carbonate -) 650 mg PO DAILY [facility] Last Admin: 04/25/17 09:47 Dose: 650 mg Docusate Sodium (Colace -) 100 mg PO BID [facility] Last Admin: 04/25/17 09:46 Dose: 100 mg Ferrous Sulfate (Feosol -) 325 mg PO BID [facility] Last Admin: 04/25/17 09:46 Dose: 325 mg Furosemide (Lasix -) 40 mg PO DAILY [facility] Last Admin: 04/25/17 09:46 Dose: 40 mg Insulin Aspart (Novolog Vial Sliding Scale -) 1 vial SQ ACHS [facility] PRN Reason: Protocol Last Admin: 04/25/17 06:43 Dose: 4 units Lisinopril (Prinivil) 10 mg PO DAILY [facility] Last Admin: 04/25/17 09:46 Dose: 10 mg Mirtazapine (Remeron -) 15 mg PO HS [facility] Last Admin: 04/24/17 21:27 Dose: 15 mg Montelukast Sodium (Singulair -) 10 mg PO HS [facility] Last Admin: 04/24/17 21:33 Dose: 10 mg Prednisone (Deltasone -) 40 mg PO DAILY [facility] Last Admin: 04/25/17 09:46 Dose: 40 mg Pregabalin (Lyrica -) 75 mg PO BID [facility] Last Admin: 04/25/17 09:46 Dose: 75 mg Ranitidine HCl (Zantac -) 150 mg PO BID [facility] Last Admin: 04/25/17 09:46 Dose: 150 mg Sodium Chloride ([place] Nasal [place] -) 1 spray NS Q6H PRN PRN Reason: NASAL CONGESTION Last Admin: 04/23/17 17:05 Dose: 1 spray A/P Acute on Chronic Hypoxic and Hypercapneic Respiratory Failure COPD Sarcoid/Pulmonary Fibrosis LV Diastolic Dysfunction Pulmonary HTN OSVALDO HTN DM h/o DVT - place back on BiPAP - prednisone taper - inhaled bronchodilators - O2 to keep SpO2 >90% - lasix - monitor urine output, creatinine - continue anticoagulation
--- NOTE | 2017-04-25 12:47 | PN ---
Progress Note (short form) - Note Progress Note: more somnolent today Bipap adjusted per pulmonary placed back on Bipap awake and able to communicate requesting to get back to [place] Vital Signs Period Temp Pulse Resp BP Sys/Londono Pulse Ox Last 24 Hr 97.6 F-98.2 F 75-102 17-20 97-107/61-75 97-100 Bipap replaced neck -JVD heart S1/S2 lungs decresed bs / scattered rhonchi abd soft non tender ext ++edema bilat left >right CBC, BMP 04/23/17 06:30 04/23/17 06:30 active meds Albuterol/Ipratropium (Duoneb -) 1 amp NEB RQID [facility] Last Admin: 04/22/17 20:56 Dose: 1 amp Apixaban (Eliquis -) 5 mg PO BID [facility] Last Admin: 04/22/17 21:20 Dose: 5 mg Atorvastatin Calcium (Lipitor -) 10 mg PO HS [facility] Last Admin: 04/22/17 21:20 Dose: 10 mg Calcium Carbonate (Calcium Carbonate -) 650 mg PO DAILY [facility] Last Admin: 04/22/17 10:30 Dose: 650 mg Docusate Sodium (Colace -) 100 mg PO BID [facility] Last Admin: 04/22/17 21:20 Dose: 100 mg Ferrous Sulfate (Feosol -) 325 mg PO BID [facility] Last Admin: 04/22/17 21:20 Dose: 325 mg Furosemide (Lasix -) 20 mg PO DAILY [facility] Last Admin: 04/22/17 10:30 Dose: 20 mg Insulin Aspart (Novolog Vial Sliding Scale -) 1 vial SQ ACHS [facility] PRN Reason: Protocol Last Admin: 04/22/17 21:20 Dose: 10 units Lisinopril (Prinivil) 10 mg PO DAILY [facility] Last Admin: 04/22/17 10:30 Dose: 10 mg Methylprednisolone Sodium Succinate (Solu-Medrol -) 40 mg IVPUSH Q6H-IV [facility] Last Admin: 04/22/17 21:20 Dose: 40 mg Mirtazapine (Remeron -) 15 mg PO HS [facility] Last Admin: 04/22/17 21:33 Dose: Not Given Montelukast Sodium (Singulair -) 10 mg PO HS [facility] Last Admin: 04/22/17 21:20 Dose: 10 mg Pregabalin (Lyrica -) 75 mg PO BID [facility] Last Admin: 04/22/17 21:20 Dose: 75 mg Ranitidine HCl (Zantac -) 150 mg PO BID [facility] Last Admin: 04/22/17 21:20 Dose: 150 mg # acute on chronic respiratory failure hypercapnia / hypoxemia Bipap / O2 / steroid dependant # 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 Chronic hypoxemia / hypercapnia Cardiac Sarcoid >>s/p AICD lifelong steroids # pHTN # HF diastolic +2 edema Lasix IV --- change to PO follow lytes / daily wieghts / # OSVALDO # HTN resume home meds monitor Bp # DM sliding scale #### awaiting insurance authorization for transfer back to [facility] #### Problem List - Problems (1) Acute on chronic respiratory failure with hypoxia and hypercapnia Code(s): J96.21 - ACUTE AND CHRONIC RESPIRATORY FAILURE WITH HYPOXIA; J96.22 - ACUTE AND CHRONIC RESPIRATORY FAILURE WITH HYPERCAPNIA (2) CHF (congestive heart failure) Code(s): I50.9 - HEART FAILURE, UNSPECIFIED Qualifiers: Congestive heart failure type: unspecified Congestive heart failure chronicity: unspecified Qualified Code(s): I50.9 - Heart failure, unspecified (3) Hypercarbia Code(s): R06.89 - OTHER ABNORMALITIES OF BREATHING (4) Somnolence Code(s): R40.0 - SOMNOLENCE (5) SHERRI (acute kidney injury) Code(s): N17.9 - ACUTE KIDNEY FAILURE, UNSPECIFIED (6) Abdominal pain Code(s): R10.9 - UNSPECIFIED ABDOMINAL PAIN (7) Allergy to multiple antibiotics Code(s): Z88.1 - ALLERGY STATUS TO OTHER ANTIBIOTIC AGENTS STATUS (8) COPD exacerbation Code(s): J44.1 - CHRONIC OBSTRUCTIVE PULMONARY DISEASE W (ACUTE) EXACERBATION (9) Chronic low back pain Code(s): M54.5 - LOW BACK PAIN; G89.29 - OTHER CHRONIC PAIN (10) ICD (implantable cardioverter-defibrillator), dual, in situ Code(s): Z95.810 - PRESENCE OF AUTOMATIC (IMPLANTABLE) CARDIAC DEFIBRILLATOR (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
[2017-04-25] MEDS ORDERED: INSULIN (NOVOLOG) ASPART 100 UNITS/ML 10ML VIAL SQ ONE (19:15)
[2017-04-25] MEDS: MONTELUKAST NA 10 MG TABLET PO SCH (22:36)
[2017-04-25] MEDS: MIRTAZAPINE 15 MG TABLET (FP) PO SCH (22:36)
[2017-04-25] MEDS: ATORVASTATIN CA 10 MG TABLET (FP) PO SCH (22:36)
[2017-04-26] MEDS: INSULIN SLIDING SCALE (NOVOLOG) 1 VIAL SQ SCH ×4 (06:15→21:01)
[2017-04-26 06:23] LABS: BASO % 0.4 % (0-2.0); EOS % 0.7 % (0-4.5); HEMATOCRIT 36.9 % (32.4-45.2); HEMOGLOBIN 11.5 GM/dL (10.7-15.3); LYMPH % 16.1 % (8-40); MCH 27.7 pg (25.7-33.7); MCHC 31.3 g/dl (32.0-36.0); MEAN CELL VOLUME 88.5 fl (80-96); NEUT % 77.8 % (42.8-82.8); PLATELET COUNT 304 K/MM3 (134-434); RBC 4.17 M/mm3 (3.60-5.2); RDW 17.3 % (11.6-15.6); WHITE BLOOD COUNT 10.5 K/mm3 (4.0-10.0)
[2017-04-26 06:53] LABS: ANION GAP 7 (8-16); BLOOD UREA NITROGEN 29 mg/dL (7-18); CALCIUM 8.5 mg/dL (8.5-10.1); CHLORIDE 100 mmol/L (98-107); CO2 34 mmol/L (21-32); CREATININE 0.7 mg/dL (0.55-1.02); GLUCOSE,RANDOM 107 mg/dL (74-106); POTASSIUM 4.4 mmol/L (3.5-5.1); SODIUM 141 mmol/L (136-145)
[2017-04-26] MEDS: ALBUTEROL SO4 2.5/IPRATROPIUM 0.5 INH SOL 3 ML VIAL.NEB. NEB SCH ×3 (08:05→16:32)
[2017-04-26] MEDS ORDERED: PT OWN MED DRAWER 7, Y5N ONE ×2 (08:15→18:12)
[2017-04-26] MEDS: AMINO ACIDS/PROTEIN HYDROLYS 30 ML LIQUID.PKT PO SCH ×4 (08:51→18:09)
[2017-04-26] MEDS: LISINOPRIL 10 MG TABLET (FP) PO SCH (09:49)
[2017-04-26] MEDS: PREGABALIN 75 MG CAPSULE PO SCH ×2 (09:49→21:01)
[2017-04-26] MEDS: APIXABAN 5 MG TABLET PO SCH ×2 (09:49→21:01)
[2017-04-26] MEDS: FERROUS SO4 325 MG TABLET (FP) PO SCH ×2 (09:49→21:01)
[2017-04-26] MEDS: DOCUSATE SODIUM 100 MG CAPSULE (FP) PO SCH ×2 (09:49→21:01)
[2017-04-26] MEDS: RANITIDINE HCL 150 MG TABLET (FP) PO SCH ×2 (09:49→21:01)
[2017-04-26] MEDS: FUROSEMIDE 40 MG TABLET (FP) PO SCH (09:49)
[2017-04-26] MEDS: predniSONE 20 MG TABLET (UD) PO SCH (09:49)
[2017-04-26] MEDS: CALCIUM CARBONATE 650 MG TABLET PO SCH (09:52)
--- NOTE | 2017-04-26 11:30 | PN ---
Progress Note (short form) - Note Progress Note: more alert than yesterday / comfortable / O2 in place Bipap settings adjusted per pulmonary Bipap over night and most of the day yesterday awake and able to communicate requesting to get back to [place] Vital Signs Period Temp Pulse Resp BP Sys/Londono Pulse Ox Last 24 Hr 97.4 F-98.3 F 78-107 18-19 103-123/59-88 92 neck -JVD heart S1/S2 lungs decresed bs / scattered rhonchi abd soft non tender ext +edema bilat left >right CBC, BMP 04/26/17 05:25 04/26/17 05:25 Active Medications Acetaminophen (Tylenol -) 1,000 mg PO Q6H PRN PRN Reason: FEVER Al Hydroxide/Mg Hydroxide (Mylanta Oral Suspension -) 30 ml PO Q6H PRN PRN Reason: INDIGESTION Last Admin: 04/25/17 10:57 Dose: 30 ml Albuterol/Ipratropium (Duoneb -) 1 amp NEB RQID [facility] Last Admin: 04/26/17 08:05 Dose: 1 amp Amino Acids (Prosource No Carb Liquid Pkt) 30 ml PO BID@0800,1730 [facility] Last Admin: 04/26/17 08:52 Dose: Not Given Apixaban (Eliquis -) 5 mg PO BID [facility] Last Admin: 04/26/17 09:49 Dose: 5 mg Atorvastatin Calcium (Lipitor -) 10 mg PO HS [facility] Last Admin: 04/25/17 22:36 Dose: 10 mg Calcium Carbonate (Calcium Carbonate -) 650 mg PO DAILY [facility] Last Admin: 04/26/17 09:52 Dose: Not Given Docusate Sodium (Colace -) 100 mg PO BID [facility] Last Admin: 04/26/17 09:49 Dose: 100 mg Ferrous Sulfate (Feosol -) 325 mg PO BID [facility] Last Admin: 04/26/17 09:49 Dose: 325 mg Furosemide (Lasix -) 40 mg PO DAILY [facility] Last Admin: 04/26/17 09:49 Dose: 40 mg Insulin Aspart (Novolog Vial Sliding Scale -) 1 vial SQ ACHS [facility] PRN Reason: Protocol Last Admin: 04/26/17 06:15 Dose: Not Given Lisinopril (Prinivil) 10 mg PO DAILY [facility] Last Admin: 04/26/17 09:49 Dose: 10 mg Mirtazapine (Remeron -) 15 mg PO [facility] Last Admin: 04/25/17 22:36 Dose: 15 mg Montelukast Sodium (Singulair -) 10 mg PO [facility] Last Admin: 04/25/17 22:36 Dose: 10 mg Prednisone (Deltasone -) 40 mg PO DAILY [facility] Last Admin: 04/26/17 09:49 Dose: 40 mg Pregabalin (Lyrica -) 75 mg PO BID [facility] Last Admin: 04/26/17 09:49 Dose: 75 mg Ranitidine HCl (Zantac -) 150 mg PO BID [facility] Last Admin: 04/26/17 09:49 Dose: 150 mg Sodium Chloride ([place] Nasal [place] -) 1 spray NS Q6H PRN PRN Reason: NASAL CONGESTION Last Admin: 04/23/17 17:05 Dose: 1 spray # acute on chronic respiratory failure hypercapnia / hypoxemia Bipap / O2 / steroid dependant # 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 Chronic hypoxemia / hypercapnia Cardiac Sarcoid >>s/p AICD lifelong steroids # pHTN # HF diastolic +2 edema Lasix IV --- change to PO follow lytes / daily wieghts / # OSVALDO # HTN resume home meds monitor Bp # DM sliding scale #### awaiting insurance authorization for transfer back to [facility] #### Problem List - Problems (1) Acute on chronic respiratory failure with hypoxia and hypercapnia Code(s): J96.21 - ACUTE AND CHRONIC RESPIRATORY FAILURE WITH HYPOXIA; J96.22 - ACUTE AND CHRONIC RESPIRATORY FAILURE WITH HYPERCAPNIA (2) CHF (congestive heart failure) Code(s): I50.9 - HEART FAILURE, UNSPECIFIED Qualifiers: Congestive heart failure type: unspecified Congestive heart failure chronicity: unspecified Qualified Code(s): I50.9 - Heart failure, unspecified (3) Hypercarbia Code(s): R06.89 - OTHER ABNORMALITIES OF BREATHING (4) Somnolence Code(s): R40.0 - SOMNOLENCE (5) SHERRI (acute kidney injury) Code(s): N17.9 - ACUTE KIDNEY FAILURE, UNSPECIFIED (6) Abdominal pain Code(s): R10.9 - UNSPECIFIED ABDOMINAL PAIN (7) Allergy to multiple antibiotics Code(s): Z88.1 - ALLERGY STATUS TO OTHER ANTIBIOTIC AGENTS STATUS (8) COPD exacerbation Code(s): J44.1 - CHRONIC OBSTRUCTIVE PULMONARY DISEASE W (ACUTE) EXACERBATION (9) Chronic low back pain Code(s): M54.5 - LOW BACK PAIN; G89.29 - OTHER CHRONIC PAIN (10) ICD (implantable cardioverter-defibrillator), dual, in situ Code(s): Z95.810 - PRESENCE OF AUTOMATIC (IMPLANTABLE) CARDIAC DEFIBRILLATOR (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
--- NOTE | 2017-04-26 11:30 | PN ---
Progress Note (short form) - Note Progress Note: Awake, NAD on [place] O2. Reports that she used NIPPV overnight. Intake & Output 04/23/17 04/24/17 04/25/17 04/26/17 23:59 23:59 23:59 23:59 Intake Total 1100 0 120 Balance 1100 0 120 Weight 164 lb 5 oz 167 lb 175 lb 9 oz 168 lb 4 oz Last Vital Signs Temp Pulse Resp BP Pulse Ox 98.1 F 96 H 18 103/66 92 L 04/26/17 10:00 04/26/17 10:00 04/26/17 10:00 04/26/17 10:00 04/25/17 21:00 Active Medications Acetaminophen (Tylenol -) 1,000 mg PO Q6H PRN PRN Reason: FEVER Al Hydroxide/Mg Hydroxide (Mylanta Oral Suspension -) 30 ml PO Q6H PRN PRN Reason: INDIGESTION Last Admin: 04/25/17 10:57 Dose: 30 ml Albuterol/Ipratropium (Duoneb -) 1 amp NEB RQID [facility] Last Admin: 04/26/17 08:05 Dose: 1 amp Amino Acids (Prosource No Carb Liquid Pkt) 30 ml PO BID@0800,1730 [facility] Last Admin: 04/26/17 08:52 Dose: Not Given Apixaban (Eliquis -) 5 mg PO BID [facility] Last Admin: 04/26/17 09:49 Dose: 5 mg Atorvastatin Calcium (Lipitor -) 10 mg PO HS [facility] Last Admin: 04/25/17 22:36 Dose: 10 mg Calcium Carbonate (Calcium Carbonate -) 650 mg PO DAILY [facility] Last Admin: 04/26/17 09:52 Dose: Not Given Docusate Sodium (Colace -) 100 mg PO BID [facility] Last Admin: 04/26/17 09:49 Dose: 100 mg Ferrous Sulfate (Feosol -) 325 mg PO BID [facility] Last Admin: 04/26/17 09:49 Dose: 325 mg Furosemide (Lasix -) 40 mg PO DAILY [facility] Last Admin: 04/26/17 09:49 Dose: 40 mg Insulin Aspart (Novolog Vial Sliding Scale -) 1 vial SQ ACHS [facility] PRN Reason: Protocol Last Admin: 04/26/17 06:15 Dose: Not Given Lisinopril (Prinivil) 10 mg PO DAILY [facility] Last Admin: 04/26/17 09:49 Dose: 10 mg Mirtazapine (Remeron -) 15 mg PO HS [facility] Last Admin: 04/25/17 22:36 Dose: 15 mg Montelukast Sodium (Singulair -) 10 mg PO HS [facility] Last Admin: 04/25/17 22:36 Dose: 10 mg Prednisone (Deltasone -) 40 mg PO DAILY [facility] Last Admin: 04/26/17 09:49 Dose: 40 mg Pregabalin (Lyrica -) 75 mg PO BID [facility] Last Admin: 04/26/17 09:49 Dose: 75 mg Ranitidine HCl (Zantac -) 150 mg PO BID [facility] Last Admin: 04/26/17 09:49 Dose: 150 mg Sodium Chloride ([place] Nasal [place] -) 1 spray NS Q6H PRN PRN Reason: NASAL CONGESTION Last Admin: 04/23/17 17:05 Dose: 1 spray GENERAL: Sleepy, but easily arousable, NAD HEAD: No signs of trauma, normocephalic, atraumatic EYES: sclera anicteric, conjunctiva clear ENT: oropharynx clear without exudates. Moist mucosa NECK: Normal ROM, supple, no lymphadenopathy, JVD, or masses LUNGS: Scattered rhonchi HEART: S1 and S2, no murmurs, rubs or gallops ABDOMEN: Soft, nontender, normoactive bowel sounds. No guarding, no rebound. No masses EXTREMITIES: (-) edema. No clubbing or cyanosis. NEUROLOGICAL: Non-focal SKIN: Warm, Dry, normal turgor, no rashes or lesions noted. Laboratory Results - last 24 hr 04/24/17 04/25/17 04/25/17 17:42 12:42 18:18 WBC RBC Hgb Hct MCV MCH MCHC RDW Plt Count MPV Neutrophils % Lymphocytes % Monocytes % Eosinophils % Basophils % Sodium Potassium Chloride Carbon Dioxide Anion Gap BUN Creatinine POC Glucometer 471 260 437 Random Glucose Calcium 04/25/17 04/26/17 04/26/17 22:26 05:25 05:25 WBC 10.5 H RBC 4.17 Hgb 11.5 Hct 36.9 MCV 88.5 MCH 27.7 MCHC 31.3 L RDW 17.3 H Plt Count 304 MPV 9.0 Neutrophils % 77.8 Lymphocytes % 16.1 D Monocytes % 5.0 Eosinophils % 0.7 D Basophils % 0.4 Sodium 141 Potassium 4.4 Chloride 100 Carbon Dioxide 34 H Anion Gap 7 L BUN 29 H Creatinine 0.7 POC Glucometer 325 Random Glucose 107 H Calcium 8.5 04/26/17 05:46 WBC RBC Hgb Hct MCV MCH MCHC RDW Plt Count MPV Neutrophils % Lymphocytes % Monocytes % Eosinophils % Basophils % Sodium Potassium Chloride Carbon Dioxide Anion Gap BUN Creatinine POC Glucometer 120 Random Glucose Calcium Problem List - Problems (1) Hypercarbia Code(s): R06.89 - OTHER ABNORMALITIES OF BREATHING (2) Acute on chronic respiratory failure with hypoxia and hypercapnia Code(s): J96.21 - ACUTE AND CHRONIC RESPIRATORY FAILURE WITH HYPOXIA; J96.22 - ACUTE AND CHRONIC RESPIRATORY FAILURE WITH HYPERCAPNIA (3) Allergy to multiple antibiotics Code(s): Z88.1 - ALLERGY STATUS TO OTHER ANTIBIOTIC AGENTS STATUS (4) COPD (chronic obstructive pulmonary disease) Code(s): J44.9 - CHRONIC OBSTRUCTIVE PULMONARY DISEASE, UNSPECIFIED (5) COPD exacerbation Code(s): J44.1 - CHRONIC OBSTRUCTIVE PULMONARY DISEASE W (ACUTE) EXACERBATION (6) ICD (implantable cardioverter-defibrillator), dual, in situ Code(s): Z95.810 - PRESENCE OF AUTOMATIC (IMPLANTABLE) CARDIAC DEFIBRILLATOR (7) Obstructive sleep apnea Code(s): G47.33 - OBSTRUCTIVE SLEEP APNEA (ADULT) (PEDIATRIC) (8) Respiratory failure Code(s): J96.90 - RESPIRATORY FAILURE, UNSP, UNSP W HYPOXIA OR HYPERCAPNIA (9) SOB (shortness of breath) Code(s): R06.02 - SHORTNESS OF BREATH (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 Code(s): 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 (11) Sarcoidosis of lung Code(s): D86.0 - SARCOIDOSIS OF LUNG (12) Diastolic CHF Code(s): I50.30 - UNSPECIFIED DIASTOLIC (CONGESTIVE) HEART FAILURE (13) IDDM (insulin dependent diabetes mellitus) Code(s): E11.9 - TYPE 2 DIABETES MELLITUS WITHOUT COMPLICATIONS; Z79.4 - SHELTER (CURRENT) USE OF INSULIN IMP ACUTE ON CHRONIC HYPOXEMIC/HYPERCAPNEIC RESPIRATORY FAILURE 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
[2017-04-26] MEDS ORDERED: INSULIN (NOVOLOG MIX 70/30) 100 UNITS/ML MDV SQ ONE (18:11)
[2017-04-26] MEDS ORDERED: INSULIN DETEMIR 100 UNITS/ML MDV SQ ONE (18:11)
[2017-04-26] MEDS ORDERED: INSULIN (NOVOLOG) ASPART 100 UNITS/ML 10ML VIAL ONE (18:11)
[2017-04-26] MEDS: MONTELUKAST NA 10 MG TABLET PO SCH (21:01)
[2017-04-26] MEDS: ATORVASTATIN CA 10 MG TABLET (FP) PO SCH (21:01)
[2017-04-26] MEDS: MIRTAZAPINE 15 MG TABLET (FP) PO SCH (21:01)
[2017-04-27] MEDS ORDERED: ALBUTEROL SO4 2.5/IPRATROPIUM 0.5 INH SOL 3 ML VIAL.NEB. NEB PRN (05:48)
[2017-04-27] MEDS: INSULIN SLIDING SCALE (NOVOLOG) 1 VIAL SQ SCH ×2 (06:03→12:18)
[2017-04-27 06:14] VITALS: TEMP 98.1
[2017-04-27] MEDS: AMINO ACIDS/PROTEIN HYDROLYS 30 ML LIQUID.PKT PO SCH (08:32)
[2017-04-27] MEDS ORDERED: PT OWN MED DRAWER 7, Y5N ONE (09:35)
[2017-04-27] MEDS: predniSONE 20 MG TABLET (UD) PO SCH (09:36)
[2017-04-27] MEDS: FERROUS SO4 325 MG TABLET (FP) PO SCH (09:36)
[2017-04-27] MEDS: PREGABALIN 75 MG CAPSULE PO SCH (09:37)
[2017-04-27] MEDS: RANITIDINE HCL 150 MG TABLET (FP) PO SCH (09:37)
[2017-04-27] MEDS: LISINOPRIL 10 MG TABLET (FP) PO SCH (09:37)
[2017-04-27] MEDS: DOCUSATE SODIUM 100 MG CAPSULE (FP) PO SCH (09:37)
[2017-04-27] MEDS: CALCIUM CARBONATE 650 MG TABLET PO SCH (09:37)
[2017-04-27] MEDS: FUROSEMIDE 40 MG TABLET (FP) PO SCH (09:37)
[2017-04-27] MEDS: APIXABAN 5 MG TABLET PO SCH (09:37)
[2017-04-27] MEDS ORDERED: SENNOSIDES 8.6MG TABLET (FP) PO SCH (10:00)
--- NOTE | 2017-04-27 10:26 | PN ---
Progress Note (short form) - Note Progress Note: more alert than yesterday / comfortable / O2 in place Bipap settings adjusted per pulmonary Bipap over night and most of the day yesterday awake and able to communicate requesting to get back to [place] c/o constipation today requesting senna -- has been ordered case discussed with social work specialist awaiting Auth from Ins patient informed as she is anxious and wants to return to [facility] Vital Signs Period Temp Pulse Resp BP Sys/Londono Pulse Ox Last 24 Hr 97.4 F-98.3 F 78-107 18-19 103-123/59-88 92 neck -JVD heart S1/S2 lungs decresed bs / scattered rhonchi abd soft non tender ext no edema bilat left >right CBC, BMP 04/26/17 05:25 04/26/17 05:25 Active Medications Acetaminophen (Tylenol -) 1,000 mg PO Q6H PRN PRN Reason: FEVER Al Hydroxide/Mg Hydroxide (Mylanta Oral Suspension -) 30 ml PO Q6H PRN PRN Reason: INDIGESTION Last Admin: 04/25/17 10:57 Dose: 30 ml Albuterol/Ipratropium (Duoneb -) 1 amp NEB RQID [facility] Last Admin: 04/26/17 08:05 Dose: 1 amp Amino Acids (Prosource No Carb Liquid Pkt) 30 ml PO BID@0800,1730 [facility] Last Admin: 04/26/17 08:52 Dose: Not Given Apixaban (Eliquis -) 5 mg PO BID [facility] Last Admin: 04/26/17 09:49 Dose: 5 mg Atorvastatin Calcium (Lipitor -) 10 mg PO HS [facility] Last Admin: 04/25/17 22:36 Dose: 10 mg Calcium Carbonate (Calcium Carbonate -) 650 mg PO DAILY [facility] Last Admin: 04/26/17 09:52 Dose: Not Given Docusate Sodium (Colace -) 100 mg PO BID [facility] Last Admin: 04/26/17 09:49 Dose: 100 mg Ferrous Sulfate (Feosol -) 325 mg PO BID [facility] Last Admin: 04/26/17 09:49 Dose: 325 mg Furosemide (Lasix -) 40 mg PO DAILY [facility] Last Admin: 04/26/17 09:49 Dose: 40 mg Insulin Aspart (Novolog Vial Sliding Scale -) 1 vial SQ ACHS [facility] PRN Reason: Protocol Last Admin: 04/26/17 06:15 Dose: Not Given Lisinopril (Prinivil) 10 mg PO DAILY [facility] Last Admin: 04/26/17 09:49 Dose: 10 mg Mirtazapine (Remeron -) [address] [facility] Last Admin: 04/25/17 22:36 Dose: 15 mg Montelukast Sodium (Singulair -) 10 mg PO HS [facility] Last Admin: 04/25/17 22:36 Dose: 10 mg Prednisone (Deltasone -) 40 mg PO DAILY [facility] Last Admin: 04/26/17 09:49 Dose: 40 mg Pregabalin (Lyrica -) 75 mg PO BID [facility] Last Admin: 04/26/17 09:49 Dose: 75 mg Ranitidine HCl (Zantac -) 150 mg PO BID [facility] Last Admin: 04/26/17 09:49 Dose: 150 mg Sodium Chloride ([place] Nasal [place] -) 1 spray NS Q6H PRN PRN Reason: NASAL CONGESTION Last Admin: 04/23/17 17:05 Dose: 1 spray # acute on chronic respiratory failure hypercapnia / hypoxemia Bipap / O2 / steroid dependant # 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 Chronic hypoxemia / hypercapnia Cardiac Sarcoid >>s/p AICD lifelong steroids # pHTN # HF diastolic +2 edema Lasix IV --- change to PO follow lytes / daily wieghts / # OSVALDO # HTN resume home meds monitor Bp # DM sliding scale #### awaiting insurance authorization for transfer back to [facility] #### Problem List - Problems (1) Acute on chronic respiratory failure with hypoxia and hypercapnia Code(s): J96.21 - ACUTE AND CHRONIC RESPIRATORY FAILURE WITH HYPOXIA; J96.22 - ACUTE AND CHRONIC RESPIRATORY FAILURE WITH HYPERCAPNIA (2) CHF (congestive heart failure) Code(s): I50.9 - HEART FAILURE, UNSPECIFIED Qualifiers: Congestive heart failure type: unspecified Congestive heart failure chronicity: unspecified Qualified Code(s): I50.9 - Heart failure, unspecified (3) Hypercarbia Code(s): R06.89 - OTHER ABNORMALITIES OF BREATHING (4) Somnolence Code(s): R40.0 - SOMNOLENCE (5) SHERRI (acute kidney injury) Code(s): N17.9 - ACUTE KIDNEY FAILURE, UNSPECIFIED (6) Abdominal pain Code(s): R10.9 - UNSPECIFIED ABDOMINAL PAIN (7) Allergy to multiple antibiotics Code(s): Z88.1 - ALLERGY STATUS TO OTHER ANTIBIOTIC AGENTS STATUS (8) COPD exacerbation Code(s): J44.1 - CHRONIC OBSTRUCTIVE PULMONARY DISEASE W (ACUTE) EXACERBATION (9) Chronic low back pain Code(s): M54.5 - LOW BACK PAIN; G89.29 - OTHER CHRONIC PAIN (10) ICD (implantable cardioverter-defibrillator), dual, in situ Code(s): Z95.810 - PRESENCE OF AUTOMATIC (IMPLANTABLE) CARDIAC DEFIBRILLATOR (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
[2017-04-27 12:55] VITALS: BP 107/71; PULSE 87
== END 2017-04-27 14:14 | DRG 133 ==
LOC: JER 11:16 → JERBED 16:05 → J8W 04-22 13:06
PROVIDERS: ADMIT Family Medicine; ATTEND Family Medicine
PROC: 5A09557 Assistance with Respiratory Ventilation, Greater than 96 Consecutive Hours, Continuous Positive Airway Pressure (ICD-10-PCS; principal; 2017-04-21)
DX: J96.21 Acute and chronic respiratory failure with hypoxia (principal); J96.22 Acute and chronic respiratory failure with hypercapnia; I11.0 Hypertensive heart disease with heart failure; G47.33 Obstructive sleep apnea (adult) (pediatric); I27.20 Pulmonary hypertension, unspecified; E11.9 Type 2 diabetes mellitus without complications; D86.0 Sarcoidosis of lung; I50.32 Chronic diastolic (congestive) heart failure; R40.0 Somnolence; Z88.1 Allergy status to other antibiotic agents; M54.5 Low back pain; Z95.810 Presence of automatic (implantable) cardiac defibrillator; J84.10 Pulmonary fibrosis, unspecified; K21.9 Gastro-esophageal reflux disease without esophagitis; J44.1 Chronic obstructive pulmonary disease with (acute) exacerbation
CPT/HCPCS: 36415; 36600; 71045-TC; 80048; 80053; 82375; 82550; 82803; 82962; 83050; 83735; 84484; 85025; 85027; 85610; 93005; 93010; 94640; 94660; 97116-GP; 97161-GP; 99285-25

== ENCOUNTER 2017-05-02 15:37 | Inpatient (IN) | payer OTHER ==
--- NOTE | 2017-05-02 16:04 | PDOC ---
Attending Attestation - Resident Resident Name: Paulette Jimenez - ED Attending Attestation I have performed the following: I have examined & evaluated the patient, The case was reviewed & discussed with the resident, I agree w/resident's findings & plan, Exceptions are as noted - HPI HPI: 05/02/17 16:09 62y F hx of chronic hypoxic respiratory failure, sarcoidosis, copd, pulm htn, chronic diastolic heart failure, type 2 DM, DVT, HTN, chronic back pain, HL, s/ p AICD, hepatitis, presents from home for SOB. The pt states she has been ahving cough for the past 2 days associated with fever, congestion, mid sternal chets pain when she coughs. EMS arrived and noticed the pt to be hypoxic to 87s , was started on CPAP with improvement of her respiratory status to high 90s. On arrival the pt was in no distress (she has back problems and is normally in a hunched over position). labs noted for mild rales no appreciable wheezing +pitting edema bilaterally pt was recently dc from the hospital - ddx includes chf, copd, influenza, pna will ck labs cxr pt on bipap currently 05/02/17 19:09 flu positive will admit for further management due to requirement of bipap CRITICAL CARE DOCUMENTATION: I spent ~35 minutes of Critical Care time, excluding separately billable procedures, involving high complexity decision making to assess, manipulate and support vital system function(s) to treat single or multiple vital organ system failure and/or to prevent further life threatening deterioration of the patient' s condition. - Physicial Exam PE: 05/13/17 08:04 see above - Medical Decision Making 05/13/17 08:04 see above
[2017-05-02 17:00] LABS: BASO % 0.4 % (0-2.0); EOS % 0.2 % (0-4.5); HEMATOCRIT 35.3 % (32.4-45.2); HEMOGLOBIN 10.9 GM/dL (10.7-15.3); LYMPH % 5.6 % (8-40); MCH 26.8 pg (25.7-33.7); MCHC 30.9 g/dl (32.0-36.0); MEAN CELL VOLUME 86.8 fl (80-96); MEAN PLT VOLUME 8.7 fl (7.5-11.1); MONO % 1.4 % (3.8-10.2); NEUT % 92.4 % (42.8-82.8); PLATELET COUNT 276 K/MM3 (134-434); RBC 4.07 M/mm3 (3.60-5.2); RDW 16.7 % (11.6-15.6); WHITE BLOOD COUNT 11.5 K/mm3 (4.0-10.0)
[2017-05-02 17:11] LABS: INR 1.36 (0.82-1.09); PROTHROMBIN TIME (PATIENT) 15.4 SEC (9.98-11.88)
[2017-05-02 17:14] LABS: ACTIVATED PTT 21.8 SECONDS (26.9-34.4)
[2017-05-02 17:31] LABS: ANION GAP 6 (8-16); BILIRUBIN,TOTAL 0.3 mg/dL (0.2-1.0); BLOOD UREA NITROGEN 25 mg/dL (7-18); CALCIUM 8.3 mg/dL (8.5-10.1); CHLORIDE 99 mmol/L (98-107); CO2 31 mmol/L (21-32); CREATININE 0.9 mg/dL (0.55-1.02); GLUCOSE,RANDOM 201 mg/dL (74-106); POTASSIUM 4.4 mmol/L (3.5-5.1); SGOT/AST 20 U/L (15-37); SGPT/ALT 24 U/L (12-78); SODIUM 136 mmol/L (136-145); TOT PROT 7.5 g/dl (6.4-8.2)
[2017-05-02 17:33] LABS: ALK PHOS 95 U/L (45-117)
--- NOTE | 2017-05-02 17:44 | PDOC ---
History of Present Illness - General Chief Complaint: Respiratory Distress Stated Complaint: TROUBLE BREATHING Time Seen by Provider: 05/02/17 15:56 - History of Present Illness Initial Comments: 62 year old female BIBEMS from [place] ([facility]) with PMH of HTN, CHF (pacemaker placement), diabetes, COPD, (5L NC at home), GERD, Lupus, DVT (on Apixaban), Parkinson's, and chronic back pain (s/p revision for broken robert and s/p morphine pump placement 2012) presenting with SOB, cough, fever, congestion, nausea, vomiting, and associated chest pain. She states the cough started two days prior and co-presented with the fever (unable to measure at the [facility]). Her chest pain is only apparent during severe bouts of cough. No [facility] papers available that indicate the reason for her admission as the son was actually the one to call 911. EMS arrived and noticed the pt to be hypoxic to 87s, was started on CPAP with improvement of her respiratory status to high 90s. On arrival to our ED was in no distress with PE significant for bibasilar crackles, no appreciable wheezing, + pitting edema bilaterally. She was mentating well and aware of her current poor health condition. She denies Bleeding from any orifice, urinary symptoms, or palpitations. 05/02/17 17:59 Past History - Past Medical History Allergies/Adverse Reactions: Allergies Allergy/AdvReac Type Severity Reaction Status Date / Time medroxyprogesterone acetate Allergy Severe stepehns Verified 05/02/17 17:24 [From Depo-Provera] josé syndrome amoxicillin trihydrate Allergy Verified 05/02/17 17:24 [From Augmentin] aspirin Allergy Verified 05/02/17 17:24 azithromycin [From Zithromax] Allergy Dewey Verified 05/02/17 17:24 José syndrome ciprofloxacin HCl Allergy Verified 05/02/17 17:24 [From Cipro] codeine [Codeine] Allergy Verified 05/02/17 17:24 Iodinated Contrast- Oral and Allergy Verified 05/02/17 17:24 IV Dye [IV Dye, Iodine Containing Contrast ] ketorolac tromethamine Allergy Verified 05/02/17 17:24 [From Toradol] levofloxacin [From Levaquin] Allergy Verified 05/02/17 17:24 metronidazole [From Flagyl] Allergy Verified 05/02/17 17:24 nalbuphine HCl [From Nubain] Allergy CYANOSIS Verified 05/02/17 17:24 potassium clavulanate Allergy Verified 05/02/17 17:24 [From Augmentin] Shellfish Allergy Verified 05/02/17 17:24 sulfamethoxazole Allergy Verified 05/02/17 17:24 [From Bactrim] trimethoprim [From Bactrim] Allergy Verified 05/02/17 17:24 ivp dye Allergy Severe Swelling Uncoded 05/02/17 17:24 Home Medications: Ambulatory Orders Albuterol 2.5/Ipratropium 0.5 [Duoneb -] 1 neb NEB TID 05/02/17 Apixaban [Eliquis -] 5 mg PO HS 05/02/17 Atorvastatin Ca [Lipitor] 10 mg PO HS 05/02/17 Calcium Carbonate 600 mg PO DAILY 05/02/17 Collagenase Clostridium Hist. [Santyl -] 1 applic TP DAILY 05/02/17 Docusate Sodium [Colace -] 100 mg PO HS 05/02/17 Ferrous Sulfate 325 mg PO HS 05/02/17 Furosemide 20 mg PO DAILY 05/02/17 Insulin (LOG) Aspart [NovoLOG -] 0 unit SQ DAILY 05/02/17 Insulin (Levemir) [Levemir Vial] 0 units SQ BID 05/02/17 Ipratropium/Albuterol Sulfate [Iprat-Albut 0.5-3(2.5) mg/3 ml] 3 ml IH TID 05/02 Lisinopril 10 mg PO DAILY 05/02/17 Mag Hydrox/Al Hydrox/Simeth [Mylanta Oral Suspension -] 30 ml PO DAILY 05/02/17 Montelukast Na [Singulair -] 10 mg PO HS 05/02/17 Prednisone [Deltasone -] 20 mg PO DAILY 05/02/17 Pregabalin [Lyrica -] 75 mg PO DAILY 05/02/17 Ranitidine HCl 150 mg PO DAILY 05/02/17 Sennosides [Senna] 1 tab PO HS 05/02/17 Anemia: Yes Asthma: Yes Cancer: No Cardiac Disorders: Yes CVA: No COPD: (Yes; advanced sarcoid, Pulmonary Fibrosis, Pulmonary HTN) CHF: Yes Dementia: No Diabetes: Yes GI Disorders: Yes (acid reflux, gastric paresis, GERD) Disorders: Yes (Urinary retention) HTN: Yes Hypercholesterolemia: No Liver Disease: Yes (hep c) Seizures: No Thyroid Disease: No - Surgical History Abdominal Surgery: Yes Appendectomy: No Cardiac Surgery: Yes (AICD) Cholecystectomy: No Gastric Stapling: No Lung Surgery: No Neurologic Surgery: Yes (BACK SX WITH NERVE DAMAGE) Orthopedic Surgery: Yes (laminectomy x 2 in 2009 in [facility]) - Immunization History Immunization Up to Date: Yes - Suicide/Smoking/Psychosocial Hx Smoking Status: No Smoking History: Unknown if ever smoked Have you smoked in the past 12 months: No Number of Cigarettes Smoked Daily: 0 Cigars Per Day: 0 Hx Alcohol Use: No Drug/Substance Use Hx: No Substance Use Type: None Hx Substance Use Treatment: No Review of Systems - Review of Systems Constitutional: Yes: Chills, Fever, Weakness. No: Night Sweats HEENTM: No: Blurred Vision, Double Vision Respiratory: Yes: Cough, Shortness of Breath. No: Wheezing, Productive cough, Hemoptysis Cardiac (ROS): Yes: Chest Pain. No: Irregular Heart Rate, Palpitations ABD/GI: Yes: Nausea, Vomiting : No: Dysuria, Discharge, Flank Pain, Hematuria Musculoskeletal: Yes: Muscle Pain, Muscle Weakness. No: Joint Pain, Neck Pain Integumentary: No: Bruising, Change in Color, Erythema, Flushing Neurological: Yes: Headache. No: Seizure, Tremors *Physical Exam - Vital Signs Last Vital Signs Temp Pulse Resp BP Pulse Ox 95 05/02/17 17:15 - Physical Exam General Appearance: Yes: Nourished (Obese), Appropriately Dressed. No: Apparent Distress HEENT: positive: EOMI, ANGEL, Normal Voice. negative: Normal ENT Inspection ( [place] in front of face. ) Neck: positive: Trachea midline, Rigid (No nuchal rigidity but patient has severe MSK deformity of neck, hunched over. ). negative: Tender, Normal Thyroid Respiratory/Chest: positive: Respiratory Distress (On bipap). negative: Chest Tender, Lungs Clear, Normal Breath Sounds (Bi-basilar crackles), Accessory Muscle Use Cardiovascular: positive: Regular Rhythm, Regular Rate Gastrointestinal/Abdominal: positive: Normal Bowel Sounds, Flat, Soft. negative : Tender Musculoskeletal: negative: Normal Inspection (hunched over and not very active. ) Extremity: positive: Normal Capillary Refill, Normal Inspection. negative: Normal Range of Motion, Tender Integumentary: positive: Normal Color, Dry, Warm Neurologic: positive: Fully Oriented. negative: Alert (Somnoletn but alert and occasionally agitated when attempting access) ED Treatment Course - LABORATORY CBC & Chemistry Diagram: 05/02/17 16:50 05/02/17 16:50 - ADDITIONAL ORDERS Additional order review: Laboratory Results 05/02/17 05/02/17 16:50 16:50 PT with INR 15.40 H INR 1.36 H PTT (Actin FS) 21.8 L Sodium 136 Potassium 4.4 Chloride 99 Carbon Dioxide 31 Anion Gap 6 L BUN 25 H Creatinine 0.9 Creat Clearance w eGFR > 60 Random Glucose 201 H Calcium 8.3 L Total Bilirubin 0.3 AST 20 ALT 24 Alkaline Phosphatase 95 Creatine Kinase 19 L Troponin I < 0.02 Total Protein 7.5 Albumin 3.0 L 05/02/17 16:50 RBC 4.07 MCV 86.8 MCHC 30.9 L RDW 16.7 H MPV 8.7 Neutrophils % 92.4 H Lymphocytes % 5.6 L D Monocytes % 1.4 L Eosinophils % 0.2 Basophils % 0.4 Medical Decision Making - Medical Decision Making 62 year old female BIBEMS from [facility]) with PMH of HTN, CHF (pacemaker placement), diabetes, COPD, (5L NC at home), GERD, Lupus, DVT (on Apixaban), Parkinson's, and chronic back pain (s/p revision for broken robert and s/p morphine pump placement 2012) presenting with SOB, cough, fever, congestion, nausea, vomiting, and associated chest pain. Patient was severely hypoxic prior to EMS arrival which was relieved by CPAP. We placed on her on BiPap here. Her flu returned positive, WBC slightly elevated, 3+ leuk esterase on UA, UC pending , and possble left sided infiltrate with pulmonary vascular congestion. Of note , she was a very difficult stick and on ultrasound IV placement the artery was noted to be riding the vein. The flow was very good but non-pulsitile, however, given proximity to artery, this author sent an ABG at 19:16 to determine the likelihood of it being a VBG and it returned with a PO2 in the 30s making it almost certainly a VBG. Dr. Fuchs was called and patient was deemed appropriate for med surg admission with aztreonam administration. 05/02/17 19:50 *DC/Admit/Observation/Transfer Diagnosis at time of Disposition: Influenza A UTI (urinary tract infection) Qualifiers: Urinary tract infection type: site unspecified Hematuria presence: with hematuria Qualified Code(s): N39.0 - Urinary tract infection, site not specified ; R31.9 - Hematuria, unspecified; R31.9 - Hematuria, unspecified PNA (pneumonia) Qualifiers: Pneumonia type: due to unspecified organism Laterality: left Lung location: unspecified part of lung Qualified Code(s): J18.9 - Pneumonia, unspecified organism - Discharge Dispostion Condition at time of disposition: Stable Admit: Yes - Referrals - Patient Instructions - Post Discharge Activity
[2017-05-02 17:49] LABS: VENOUS PH 7.34 (7.32-7.42)
[2017-05-02 17:50] LABS: VENOUS PC02 54.9 mmHg (38-52)
[2017-05-02 18:11] LABS: URINE APPEARANCE SLCLOUDY; URINE BILIRUBIN NEGATIVE (NEGATIVE); URINE BLOOD NEGATIVE (NEGATIVE); URINE COLOR LTYELLOW; URINE GLUCOSE (UA) 1+ (NEGATIVE); URINE KETONE NEGATIVE (NEGATIVE); URINE NITRITE POSITIVE (NEGATIVE); URINE PROTEIN NEGATIVE (NEGATIVE); URINE UROBILINOGEN NEGATIVE mg/dL (0.2-1.0)
[2017-05-02] MEDS ORDERED: guaiFENesin 200 MG/10 ML 10 ML UNIT-DOSE CUPS PO ONE (18:22)
[2017-05-02 18:27] LABS: URINE LEUK ESTERASE 3+ (NEGATIVE)
[2017-05-02 18:28] LABS: EPI CELLS RARE /HPF (FEW); URINE BACTERIA MANY /hpf (NONE SEEN); URINE HYALINE CAST 5 /lpf; URINE MUCUS RARE
[2017-05-02] MEDS ORDERED: OSELTAMIVIR PHOSPHATE 75 MG CAPSULE PO ONE (19:04)
[2017-05-02] MEDS ORDERED: OSELTAMIVIR PHOSPHATE 75 MG CAPSULE ONE (19:14)
[2017-05-02] MEDS ORDERED: guaiFENesin/D-METHORPHAN HB 10 ML UNIT-DOSE CUPS ONE (19:14)
[2017-05-02 19:32] LABS: ARTERIAL BLOOD GAS BASE EXCESS 2.7 meq/l (-2-2); CARBOXYHEMOGLOBIN 1.1 gm% (0.5-2.0)
[2017-05-02 19:40] LABS: ARTERIAL BLD GAS O2 SATURATION 50.7 % (90-98.9); ARTERIAL BLOOD GAS PCO2 61.7 mmHg (35-45); ARTERIAL BLOOD GAS PO2 31.5 mmHg (80-100); ARTERIAL BLOOD GAS pH 7.31 (7.35-7.45)
[2017-05-02] MEDS ORDERED: AZTREONAM 2 GM in DEXTROSE 5%-WATER - 50 ML IVPB ONE (20:20)
[2017-05-02] MEDS ORDERED: AZTREONAM 2 GRAM SYRINGE 2 GM/10 ML DISP.SYRIN IVPUSH ONE (20:45)
--- NOTE | 2017-05-02 21:54 | HP ---
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 The pt states she has been ahving cough for the past 2 days associated with fever, congestion, mid sternal chets pain when she coughs. EMS arrived and noticed the pt to be hypoxic to 87s, was started on CPAP with improvement of her respiratory status to high 90s, transferred to ER -- On arrival the pt was in no distress (she has back problems and is normally in a hunched over position). labs noted for mild rales no appreciable wheezing +pitting edema bilaterally pt was recently dc from the hospital - History Source: Patient, Family Member, Medical Record Limitations to Obtaining History: Physical Impairment, Poor Historian - Past Medical History Cardiovascular: Yes: CHF (likely normal LVEF on ECHO this admission), Deep Vein Thrombosis, HTN, Pulmonary Hypertension, Other (Sarcoidosis with cardiac involvement and history of VT s/p ICD) Pulmonary: Yes: Asthma, COPD, O2 Dependent, Previously Intubated, Pulmonary Fibrosis, Sleep Apnea, Other (Sarcoidosis with cardiac involvement) Gastrointestinal: Yes: GERD, Other (hepatitis C) Hepatobiliary: Yes: Hepatitis C Reproductive: Yes: Postmenopausal ...: No Heme/Onc: Yes: Anemia Infectious Disease: Yes: Other (HEP C) Musculoskeletal: Yes: Chronic low back pain (spinal cord stimulator) Rheumatology: Yes: Sarcoidosis (cardiac and pulmonary) Endocrine: Yes: Diabetes Mellitus - Past Surgical History Past Surgical History: Yes: AICD, Laminectomy, Permanent Pacemaker (ICD. ) - Smoking History Smoking history: Unknown if ever smoked Have you smoked in the past 12 months: No Aproximately how many cigarettes per day: 0 - Alcohol/Substance Use Hx Alcohol Use: No - Social History Usual Living Arrangement: Yes: Longterm ADL: Support Services History of Recent Travel: No Home Medications - Allergies Allergies/Adverse Reactions: Allergies Allergy/AdvReac Type Severity Reaction Status Date / Time medroxyprogesterone acetate Allergy Severe stepehns Verified 05/02/17 17:24 [From Depo-Provera] josé syndrome amoxicillin trihydrate Allergy Verified 05/02/17 17:24 [From Augmentin] aspirin Allergy Verified 05/02/17 17:24 azithromycin [From Zithromax] Allergy Dewey Verified 05/02/17 17:24 José syndrome ciprofloxacin HCl Allergy Verified 05/02/17 17:24 [From Cipro] codeine [Codeine] Allergy Verified 05/02/17 17:24 Iodinated Contrast- Oral and Allergy Verified 05/02/17 17:24 IV Dye [IV Dye, Iodine Containing Contrast ] ketorolac tromethamine Allergy Verified 05/02/17 17:24 [From Toradol] levofloxacin [From Levaquin] Allergy Verified 05/02/17 17:24 metronidazole [From Flagyl] Allergy Verified 05/02/17 17:24 nalbuphine HCl [From Nubain] Allergy CYANOSIS Verified 05/02/17 17:24 potassium clavulanate Allergy Verified 05/02/17 17:24 [From Augmentin] Shellfish Allergy Verified 05/02/17 17:24 sulfamethoxazole Allergy Verified 05/02/17 17:24 [From Bactrim] trimethoprim [From Bactrim] Allergy Verified 05/02/17 17:24 ivp dye Allergy Severe Swelling Uncoded 05/02/17 17:24 - Home Medications Home Medications: Ambulatory Orders Albuterol 2.5/Ipratropium 0.5 [Duoneb -] 1 neb NEB TID 05/02/17 Apixaban [Eliquis -] 5 mg PO HS 05/02/17 Atorvastatin Ca [Lipitor] 10 mg PO HS 05/02/17 Calcium Carbonate 600 mg PO DAILY 05/02/17 Collagenase Clostridium Hist. [Santyl -] 1 applic TP DAILY 05/02/17 Docusate Sodium [Colace -] 100 mg PO HS 05/02/17 Ferrous Sulfate 325 mg PO HS 05/02/17 Furosemide 20 mg PO DAILY 05/02/17 Insulin (LOG) Aspart [NovoLOG -] 0 unit SQ DAILY 05/02/17 Insulin (Levemir) [Levemir Vial] 0 units SQ BID 05/02/17 Ipratropium/Albuterol Sulfate [Iprat-Albut 0.5-3(2.5) mg/3 ml] 3 ml IH TID 05/02 Lisinopril 10 mg PO DAILY 05/02/17 Mag Hydrox/Al Hydrox/Simeth [Mylanta Oral Suspension -] 30 ml PO DAILY 05/02/17 Montelukast Na [Singulair -] 10 mg PO HS 05/02/17 Prednisone [Deltasone -] 20 mg PO DAILY 05/02/17 Pregabalin [Lyrica -] 75 mg PO DAILY 05/02/17 Ranitidine HCl 150 mg PO DAILY 05/02/17 Sennosides [Senna] 1 tab PO HS 05/02/17 Family Disease History - Family Disease History Family Disease History: Other: Mother (3 CVAs, the first in her 60s) Review of Systems Findings/Remarks: wearing bipap / hypoxic - Review of Systems Constitutional: reports: Fever, Lethargy, Malaise HENT: reports: No Symptoms Neck: reports: No Symptoms Cardiovascular: reports: Edema, Shortness of Breath Respiratory: reports: Cough, SOB, Wheezing Gastrointestinal: reports: No Symptoms, Abdominal Pain, Indigestion Genitourinary: reports: No Symptoms Breasts: reports: No Symptoms Reported Musculoskeletal: reports: Back Pain, Extremity Pain, Joint Pain Integumentary: reports: No Symptoms Neurological: reports: Pre-Existing Deficit, Weakness Endocrine: reports: No Symptoms Hematology/Lymphatic: reports: No Symptoms Psychiatric: reports: Anxiety, Depression Physical Examination Vital Signs: Vital Signs Temperature 100.4 F H 05/02/17 15:37 Pulse Rate 92 H 05/02/17 19:29 Respiratory Rate 05/02/17 19:29 Blood Pressure 116/65 05/02/17 19:29 O2 Sat by Pulse Oximetry (%) 94 L 05/02/17 19:29 Constitutional: Yes: Moderate Distress, Obese Eyes: Yes: Conjunctiva Clear, EOM Intact HENT: Yes: Atraumatic, Normocephalic Neck: Yes: Supple, Trachea Midline Cardiovascular: Yes: Pulse Irregular Respiratory: Yes: Accessory Muscle Use, Cough, Diminished, On BiPap, Rhonchi, SOB Gastrointestinal: Yes: Normal Bowel Sounds, Abdomen, Obese Renal/: Yes: WNL Breast(s): Yes: WNL Musculoskeletal: Yes: Back Pain Extremities: No: Deformity Edema: LUE: 1+, RUE: 1+, LLE: 1+, RLE: 1+ Neurological: Yes: Pre-Existing Deficit Psychiatric: Yes: Alert, Oriented Labs: CBC, BMP 05/02/17 16:50 05/02/17 16:50 Problem List - Problems (1) Influenza A Code(s): J10.1 - FLU DUE TO OTH IDENT INFLUENZA VIRUS W OTH RESP MANIFEST (2) Pneumonia Code(s): J18.9 - PNEUMONIA, UNSPECIFIED ORGANISM Qualifiers: Pneumonia type: due to unspecified organism Laterality: left Lung location: unspecified part of lung Qualified Code(s): J18.9 - Pneumonia, unspecified organism (3) Abdominal pain Code(s): R10.9 - UNSPECIFIED ABDOMINAL PAIN (4) Acute on chronic respiratory failure with hypoxia and hypercapnia Code(s): J96.21 - ACUTE AND CHRONIC RESPIRATORY FAILURE WITH HYPOXIA; J96.22 - ACUTE AND CHRONIC RESPIRATORY FAILURE WITH HYPERCAPNIA (5) CHF (congestive heart failure) Code(s): I50.9 - HEART FAILURE, UNSPECIFIED Qualifiers: Congestive heart failure type: unspecified Congestive heart failure chronicity: unspecified Qualified Code(s): I50.9 - Heart failure, unspecified (6) COPD (chronic obstructive pulmonary disease) Code(s): J44.9 - CHRONIC OBSTRUCTIVE PULMONARY DISEASE, UNSPECIFIED (7) Chronic low back pain Code(s): M54.5 - LOW BACK PAIN; G89.29 - OTHER CHRONIC PAIN (8) Hypoxia Code(s): R09.02 - HYPOXEMIA (9) ICD (implantable cardioverter-defibrillator), dual, in situ Code(s): Z95.810 - PRESENCE OF AUTOMATIC (IMPLANTABLE) CARDIAC DEFIBRILLATOR (10) Lung infiltrate Code(s): R91.8 - OTHER NONSPECIFIC ABNORMAL FINDING OF LUNG FIELD (11) Obstructive sleep apnea Code(s): G47.33 - OBSTRUCTIVE SLEEP APNEA (ADULT) (PEDIATRIC) (12) Respiratory failure Code(s): J96.90 - RESPIRATORY FAILURE, UNSP, UNSP W HYPOXIA OR HYPERCAPNIA (13) SOB (shortness of breath) Code(s): R06.02 - SHORTNESS OF BREATH (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
[2017-05-03] MEDS: MAG HYDROX/AL HYDROX/SIMETH 355 ML ORAL.SUSP PO SCH ×4 (01:53→18:55)
[2017-05-03] MEDS: methylPREDNISolone NA SUCC 40 MG/1 ML VIAL IVPUSH SCH ×3 (02:15→21:35)
[2017-05-03] MEDS ORDERED: methylPREDNISolone NA SUCC 40 MG/1 ML VIAL ONE (02:29)
[2017-05-03] MEDS ORDERED: MAG HYDROX/AL HYDROX/SIMETH 30 ML UNIT-DOSE CUP ONE (04:12)
[2017-05-03] MEDS ORDERED: FUROSEMIDE 40 MG TABLET (FP) ONE (06:07)
[2017-05-03] MEDS ORDERED: FUROSEMIDE 40 MG/4 ML INJECTABLE VIAL ONE (06:33)
[2017-05-03] MEDS: FUROSEMIDE 40 MG/4 ML INJECTABLE VIAL IVPUSH SCH ×2 (06:36→14:26)
[2017-05-03] MEDS ORDERED: ONDANSETRON 4 MG/2 ML VIAL IVPUSH ONE (08:31)
--- NOTE | 2017-05-03 08:50 | EKG ---
Test Reason : Blood Pressure : / mmHG Vent. Rate : 089 BPM Atrial Rate : 089 BPM P-R Int : 128 ms QRS Dur : 072 ms QT Int : 334 ms P-R-T Axes : 038 021 037 degrees QTc Int : 406 ms NORMAL SINUS RHYTHM NORMAL ECG WHEN COMPARED WITH ECG OF 21-APR-2017 12:16, NONSPECIFIC T WAVE ABNORMALITY NO LONGER EVIDENT IN ANTERIOR LEADS Confirmed by Jignesh La ([id number]) on 05/03/2017 8:50:41 AM Referred By: Confirmed By:Jignesh La
--- NOTE | 2017-05-03 09:20 | PN ---
Progress Note, Physician Chief Complaint: ID Full note dictated - Current Medication List Current Medications: Active Medications Al Hydroxide/Mg Hydroxide (Mylanta Suspension -) 30 ml PO Q6HPO [facility] Last Admin: 05/03/17 06:35 Dose: 30 ml Albuterol/Ipratropium (Duoneb -) 1 amp NEB RTID [facility] Apixaban (Eliquis -) 5 mg PO BID [facility] Atorvastatin Calcium (Lipitor -) 10 mg PO HS [facility] Docusate Sodium (Colace -) 100 mg PO DAILY [facility] Ferrous Sulfate (Feosol -) 325 mg PO DAILY [facility] Furosemide (Lasix Injection -) 40 mg IVPUSH BID@0600,1400 [facility] Last Admin: 05/03/17 06:36 Dose: 40 mg Lisinopril (Prinivil) 10 mg PO DAILY [facility] Methylprednisolone Sodium Succinate (Solu-Medrol -) 40 mg IVPUSH Q8H-IV [facility] Last Admin: 05/03/17 02:15 Dose: 40 mg Montelukast Sodium (Singulair -) 10 mg PO HS [facility] Pregabalin (Lyrica -) 75 mg PO DAILY [facility] Ranitidine HCl (Zantac -) 150 mg PO BID [facility] - Objective Vital Signs: Vital Signs Temperature 97.8 F 05/03/17 06:55 Pulse Rate 100 H 05/03/17 06:55 Respiratory Rate 18 05/03/17 06:55 Blood Pressure 120/73 05/03/17 06:55 O2 Sat by Pulse Oximetry (%) 98 05/03/17 06:24 Labs: CBC, BMP 05/02/17 16:50 05/02/17 16:50 INR, PTT INR 1.36 (0.82-1.09) H 05/02/17 16:50 Problem List - Problems (1) Influenza A Code(s): J10.1 - FLU DUE TO OTH IDENT INFLUENZA VIRUS W OTH RESP MANIFEST (2) UTI (urinary tract infection) Code(s): N39.0 - URINARY TRACT INFECTION, SITE NOT SPECIFIED Qualifiers: Urinary tract infection type: site unspecified Hematuria presence: with hematuria Qualified Code(s): N39.0 - Urinary tract infection, site not specified; R31.9 - Hematuria, unspecified; R31.9 - Hematuria, unspecified (3) COPD (chronic obstructive pulmonary disease) Code(s): J44.9 - CHRONIC OBSTRUCTIVE PULMONARY DISEASE, UNSPECIFIED Assessment/Plan Microbiology 02/12/17 11:50 Blood - Peripheral Venous Blood Culture - Final NO GROWTH AFTER 5 DAYS INCUBATION 02/12/17 11:45 Blood - Peripheral Venous Blood Culture - Final NO GROWTH AFTER 5 DAYS INCUBATION 02/06/17 14:30 Blood - Peripheral Venous Blood Culture - Final Klebsiella Oxytoca Laboratory Tests 05/02/17 05/02/17 05/02/17 16:50 16:50 18:15 WBC 11.5 H RBC 4.07 Plt Count 276 BUN 25 H Creatinine 0.9 Urine RBC (Auto) 2 Urine Bacteria Many Assessment INfluenza A Urinary infection COPD Plan Isolate when room available Tamiflu Ceftriaxone pending cultures Quinn SAAB
[2017-05-03] MEDS ORDERED: PREGABALIN 75 MG CAPSULE PO SCH (10:00)
[2017-05-03] MEDS ORDERED: CEFTRIAXONE 1 GM in DEXTROSE 5%-WATER - 50 ML IVPB SCH (10:00)
[2017-05-03] MEDS ORDERED: VANCOMYCIN 1,250 MG in DEXTROSE 5%-WATER - 250 ML IVPB SCH (10:00)
--- NOTE | 2017-05-03 11:14 | CONS ---
DATE OF CONSULTATION: HISTORY: This is a 62-year-old female with a history of multiple comorbidities who I am asked to see after she was noted to become hypoxic with shortness of breath resulting in a transfer to the emergency room where she has been diagnosed with influenza A. PAST MEDICAL HISTORY: Includes respiratory failure, pulmonary sarcoid and sarcoidosis, cardiac arrhythmia with permanent pacemaker, pulmonary hypertension , chronic heart failure, type 2 diabetes, DVT, hypertension, status post AICD. MEDICATIONS: Include albuterol, Eliquis, iron, Lasix, insulin, lisinopril, Lyrica, ranitidine. ALLERGIES: BACTRIM, SHELLFISH, AMOXICILLIN, CIPRO. FAMILY HISTORY: Positive for multiple strokes in her mother. REVIEW OF SYSTEMS: Respiratory: Shortness of breath with hypoxemia. Cardiac: History of cardiac sarcoidosis. No chest pain or palpitations. Status post pacemaker and AICD device. Gastrointestinal: No abdominal pain, vomiting, diarrhea. Genitourinary: History of UTIs in the past. PHYSICAL EXAMINATION: General: She is an alert female, agitated, and in mild distress. Vital Signs: The temperature is 97.8, pulse 100, blood pressure 127/83, respirations 18, O2 saturation 98% on 40% oxygen supplement. Neck: Supple without adenopathy. Heart: S1, S2. Irregular without audible murmur. Lungs: Using accessory muscles, diminished breath sounds on a BiPAP. Positive shortness of breath. Gastrointestinal: Normoactive bowel sounds. Soft, nontender without organomegaly. Extremities: With bilateral lower extremity edema. LABORATORY DATA: White count 11.5, hemoglobin 10.9, platelets 276, BUN 25, creatinine 0.9. Liver enzymes within normal limits. UA with 3+ leukocyte esterase, 49 RBCs. Chest x-ray with no acute infiltrates seen. ASSESSMENT: A 62-year-old woman with multiple comorbidities and history of severe chronic obstructive pulmonary disease, drug allergies who presents with hypoxemia, exacerbation of chronic obstructive pulmonary disease, and acute influenza A. PLAN: She has been put on Solu-Medrol. She will continue on her anticoagulation with Eliquis. I have placed her ceftriaxone empirically for treatment of UTI but will try to investigate further regarding a history of drug allergy. She will be given Tamiflu 75 mg p.o. b.i.d. for 5 days and placed on respiratory droplet precaution. 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 JACK AMBRIZ M.D. [id number] MTDD
[2017-05-03] MEDS: FERROUS SO4 325 MG TABLET (FP) PO SCH (11:16)
[2017-05-03] MEDS ORDERED: PREGABALIN 25 MG CAPSULE ONE (11:17)
[2017-05-03] MEDS ORDERED: PREGABALIN 50 MG CAPSULE ONE (11:17)
[2017-05-03] MEDS: APIXABAN 5 MG TABLET PO SCH ×2 (11:18→21:36)
[2017-05-03] MEDS: DOCUSATE SODIUM 100 MG CAPSULE (FP) PO SCH (11:18)
[2017-05-03] MEDS: ALBUTEROL SO4 2.5/IPRATROPIUM 0.5 INH SOL 3 ML VIAL.NEB. NEB SCH ×3 (11:18→21:35)
[2017-05-03] MEDS: LISINOPRIL 10 MG TABLET (FP) PO SCH (11:18)
--- NOTE | 2017-05-03 11:48 | PN ---
Progress Note (short form) - Note Progress Note: in bed remains in ER on O2 mask c/o SOB Vital Signs Period Temp Pulse Resp BP Sys/Londono Pulse Ox Last 24 Hr 97.8 F-100.4 F 84-135 18-37 116-168/65-88 94-98 in position / feeling cold / ?chills neck supple heart S1/S2 lungs scattered rhonchi abd soft nontender ext no calf tenderenss CBC, BMP 05/02/17 16:50 05/02/17 16:50 Microbiology 05/02/17 18:15 Nasopharyngeal Swab Influenza Types A,B Antigen (SANGITA) - Final 05/02/17 18:15 Nasopharyngeal Swab - Final Active Medications Al Hydroxide/Mg Hydroxide (Mylanta Suspension -) 30 ml PO Q6HPO [facility] Last Admin: 05/03/17 06:35 Dose: 30 ml Albuterol/Ipratropium (Duoneb -) 1 amp NEB RTID [facility] Last Admin: 05/03/17 11:18 Dose: 1 amp Apixaban (Eliquis -) 5 mg PO BID [facility] Last Admin: 05/03/17 11:18 Dose: 5 mg Atorvastatin Calcium (Lipitor -) 10 mg PO HS [facility] Docusate Sodium (Colace -) 100 mg PO DAILY [facility] Last Admin: 05/03/17 11:18 Dose: 100 mg Ferrous Sulfate (Feosol -) 325 mg PO DAILY [facility] Last Admin: 05/03/17 11:16 Dose: 325 mg Furosemide (Lasix Injection -) 40 mg IVPUSH BID@0600,1400 [facility] Last Admin: 05/03/17 06:36 Dose: 40 mg Hydromorphone HCl (Dilaudid Injection -) 2 mg IVPB Q6H PRN PRN Reason: pain Vancomycin HCl 1,250 mg/ (Dextrose) 250 mls @ 166.667 mls/hr IVPB BID@1100, 2300 [facility] PRN Reason: Protocol Aztreonam 2 gm/ Dextrose 100 mls @ 100 mls/hr IV Q8H-IV [facility] PRN Reason: Protocol Lisinopril (Prinivil) 10 mg PO DAILY [facility] Last Admin: 05/03/17 11:18 Dose: 10 mg Methylprednisolone Sodium Succinate (Solu-Medrol -) 40 mg IVPUSH Q8H-IV [facility] Last Admin: 05/03/17 11:18 Dose: 40 mg Montelukast Sodium (Singulair -) 10 mg PO HS [facility] Morphine Sulfate (Ms Contin -) 15 mg PO BID [facility] Oseltamivir Phosphate (Tamiflu -) 75 mg PO BID [facility] Stop: 05/08/17 09:59 Pregabalin (Lyrica -) 75 mg PO BID [facility] Ranitidine HCl (Zantac -) 150 mg PO BID [facility] # + flu oseltamivir appreciate ID consult / follow up patient with multiple abx allergies # UTI emperic Aztreonam in ER pending C/S # Pulmonary Dz hypercapneic / hypoxemia -- bipapa/ O2 / steroid dependent Pulmonary Sarcoid COPD pHTN Flu + Plan IV steroids / neb/ O2 / bipap / abx per ID panculture # Cardiac Cardiac Sarcoid -- hx of VT - AICD chronic diastolic HF ( echo NL EF) steroid dependant # HTN continue meds # DM neuropathy resume meds sliding scale as Steroids will inc FS # hx of DVt continue with NOAC # chronic back pain resume MScontin 15 bid Dilaudid IV q4 prn patient states tolerates these meds Problem List - Problems (1) Influenza A Code(s): J10.1 - FLU DUE TO OTH IDENT INFLUENZA VIRUS W OTH RESP MANIFEST (2) Pneumonia Code(s): J18.9 - PNEUMONIA, UNSPECIFIED ORGANISM Qualifiers: Pneumonia type: due to unspecified organism Laterality: left Lung location: unspecified part of lung Qualified Code(s): J18.9 - Pneumonia, unspecified organism (3) Abdominal pain Code(s): R10.9 - UNSPECIFIED ABDOMINAL PAIN (4) Acute on chronic respiratory failure with hypoxia and hypercapnia Code(s): J96.21 - ACUTE AND CHRONIC RESPIRATORY FAILURE WITH HYPOXIA; J96.22 - ACUTE AND CHRONIC RESPIRATORY FAILURE WITH HYPERCAPNIA (5) CHF (congestive heart failure) Code(s): I50.9 - HEART FAILURE, UNSPECIFIED Qualifiers: Congestive heart failure type: unspecified Congestive heart failure chronicity: unspecified Qualified Code(s): I50.9 - Heart failure, unspecified (6) COPD (chronic obstructive pulmonary disease) Code(s): J44.9 - CHRONIC OBSTRUCTIVE PULMONARY DISEASE, UNSPECIFIED (7) Chronic low back pain Code(s): M54.5 - LOW BACK PAIN; G89.29 - OTHER CHRONIC PAIN (8) Hypoxia Code(s): R09.02 - HYPOXEMIA (9) ICD (implantable cardioverter-defibrillator), dual, in situ Code(s): Z95.810 - PRESENCE OF AUTOMATIC (IMPLANTABLE) CARDIAC DEFIBRILLATOR (10) Lung infiltrate Code(s): R91.8 - OTHER NONSPECIFIC ABNORMAL FINDING OF LUNG FIELD (11) Obstructive sleep apnea Code(s): G47.33 - OBSTRUCTIVE SLEEP APNEA (ADULT) (PEDIATRIC) (12) Respiratory failure Code(s): J96.90 - RESPIRATORY FAILURE, UNSP, UNSP W HYPOXIA OR HYPERCAPNIA (13) SOB (shortness of breath) Code(s): R06.02 - SHORTNESS OF BREATH (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
[2017-05-03] MEDS ORDERED: OSELTAMIVIR PHOSPHATE 75 MG CAPSULE ONE (11:54)
[2017-05-03] MEDS ORDERED: RANITIDINE HCL 150 MG TABLET (FP) ONE (11:54)
[2017-05-03] MEDS ORDERED: morphine SO4 SUSTAINED ACTING 15 MG TABLET.SA ONE (11:54)
[2017-05-03] MEDS: OSELTAMIVIR PHOSPHATE 75 MG CAPSULE PO SCH ×2 (12:16→23:51)
[2017-05-03] MEDS: RANITIDINE HCL 150 MG TABLET (FP) PO SCH ×2 (12:16→21:36)
[2017-05-03] MEDS: morphine SO4 SUSTAINED ACTING 15 MG TABLET.SA PO SCH ×2 (12:16→21:36)
[2017-05-03] MEDS: AZTREONAM 2 GM in DEXTROSE 5%-WATER - 100 ML IV SCH ×2 (12:53→23:43)
[2017-05-03] MEDS: VANCOMYCIN 1,250 MG in DEXTROSE 5%-WATER - 250 ML IVPB SCH ×2 (12:53→23:46)
[2017-05-03 14:04] LABS: ANION GAP 8 (8-16); BLOOD UREA NITROGEN 20 mg/dL (7-18); CALCIUM 8.7 mg/dL (8.5-10.1); CHLORIDE 99 mmol/L (98-107); CO2 30 mmol/L (21-32); CREATININE 0.7 mg/dL (0.55-1.02); GLUCOSE,RANDOM 203 mg/dL (74-106); SODIUM 137 mmol/L (136-145)
[2017-05-03] MEDS ORDERED: HYDROmorphone HCL CARPU-JECT 2 MG/1 ML DISP.SYRIN ONE ×2 (14:40→15:15)
[2017-05-03] MEDS: HYDROmorphone HCL CARPU-JECT 2 MG/1 ML DISP.SYRIN IVPB PRN (15:19)
--- NOTE | 2017-05-03 15:40 | CONSULT ---
Consult Consult Specialty:: PULM/CCM Referred by:: ANNE-MARIE Reason for Consultation:: SOB - History of Present Illness Chief Complaint: SOB History of Present Illness: 62 F, chronic hypoxic respiratory failure, pulmonary sarcoidosis, cardiac sarcoidosis with need for PPM, COPD, Pulmonary HTN, chronic diastolic heart failure, DM2, DVT, HTN, chronic back pain, HPL, S/P AICD, and hepatitis. Admitted via the ER due to SOB and cough. Noted to be hypoxic in the ER requiring NIPPV intervention. (+) Influenza screen. CXR: Some improvement in infiltrates from previous admission. - Past Medical History Cardio/Vascular: Yes: CHF (likely normal LVEF on ECHO this admission), Deep Vein Thrombosis, HTN, Pulmonary Hypertension, Other (Sarcoidosis with cardiac involvement and history of VT s/p ICD) Pulmonary: Yes: Asthma, COPD, O2 Dependent, Previously Intubated, Pulmonary Fibrosis, Sleep Apnea, Other (Sarcoidosis with cardiac involvement) Gastrointestinal: Yes: GERD, Other (hepatitis C) Hepatobiliary: Yes: Hepatitis C ...: No Infectious Disease: Yes: Other (HEP C) Musculoskeletal: Yes: Chronic low back pain (spinal cord stimulator) Rheumatology: Yes: Sarcoidosis (cardiac and pulmonary) Endocrine: Yes: Diabetes Mellitus Additional Medical History: in wheelchair after accident many years ago. Spinal cord stimulator. Multiple drug allergies. History of Ferrer José syndrome - Past Surgical History Past Surgical History: Yes: AICD, Laminectomy, Permanent Pacemaker (ICD. ) - Alcohol/Substance Use Hx Alcohol Use: No - Smoking History Smoking history: Unknown if ever smoked Have you smoked in the past 12 months: No Aproximately how many cigarettes per day: 0 - Social History ADL: Support Services History of Recent Travel: No Home Medications - Allergies Allergies/Adverse Reactions: Allergies Allergy/AdvReac Type Severity Reaction Status Date / Time medroxyprogesterone acetate Allergy Severe stepehns Verified 05/02/17 17:24 [From Depo-Provera] josé syndrome amoxicillin trihydrate Allergy Verified 05/02/17 17:24 [From Augmentin] aspirin Allergy Verified 05/02/17 17:24 azithromycin [From Zithromax] Allergy Dewey Verified 05/02/17 17:24 José syndrome ciprofloxacin HCl Allergy Verified 05/02/17 17:24 [From Cipro] codeine [Codeine] Allergy Verified 05/02/17 17:24 Iodinated Contrast- Oral and Allergy Verified 05/02/17 17:24 IV Dye [IV Dye, Iodine Containing Contrast ] ketorolac tromethamine Allergy Verified 05/02/17 17:24 [From Toradol] levofloxacin [From Levaquin] Allergy Verified 05/02/17 17:24 metronidazole [From Flagyl] Allergy Verified 05/02/17 17:24 nalbuphine HCl [From Nubain] Allergy CYANOSIS Verified 05/02/17 17:24 potassium clavulanate Allergy Verified 05/02/17 17:24 [From Augmentin] Shellfish Allergy Verified 05/02/17 17:24 sulfamethoxazole Allergy Verified 05/02/17 17:24 [From Bactrim] trimethoprim [From Bactrim] Allergy Verified 05/02/17 17:24 ivp dye Allergy Severe Swelling Uncoded 05/02/17 17:24 - Home Medications Home Medications: Ambulatory Orders Albuterol 2.5/Ipratropium 0.5 [Duoneb -] 1 neb NEB TID 05/02/17 Apixaban [Eliquis -] 5 mg PO HS 05/02/17 Atorvastatin Ca [Lipitor] 10 mg PO HS 05/02/17 Calcium Carbonate 600 mg PO DAILY 05/02/17 Collagenase Clostridium Hist. [Santyl -] 1 applic TP DAILY 05/02/17 Docusate Sodium [Colace -] 100 mg PO HS 05/02/17 Ferrous Sulfate 325 mg PO HS 05/02/17 Furosemide 20 mg PO DAILY 05/02/17 Insulin (LOG) Aspart [NovoLOG -] 0 unit SQ DAILY 05/02/17 Insulin (Levemir) [Levemir Vial] 0 units SQ BID 05/02/17 Ipratropium/Albuterol Sulfate [Iprat-Albut 0.5-3(2.5) mg/3 ml] 3 ml IH TID 05/02 Lisinopril 10 mg PO DAILY 05/02/17 Mag Hydrox/Al Hydrox/Simeth [Mylanta Oral Suspension -] 30 ml PO DAILY 05/02/17 Montelukast Na [Singulair -] 10 mg PO HS 05/02/17 Prednisone [Deltasone -] 20 mg PO DAILY 05/02/17 Pregabalin [Lyrica -] 75 mg PO DAILY 05/02/17 Ranitidine HCl 150 mg PO DAILY 05/02/17 Sennosides [Senna] 1 tab PO HS 05/02/17 Family Disease History - Family Disease History Family Disease History: Other: Mother (3 CVAs, the first in her 60s) Review of Systems - Review of Systems Constitutional: reports: Chills, Fever, Lethargy, Loss of Appetite, Malaise, Weakness. denies: Night Sweats, Unintentional Wgt. Loss Eyes: reports: No Symptoms HENT: reports: No Symptoms Neck: reports: No Symptoms Cardiovascular: reports: Shortness of Breath. denies: Chest Pain, Edema, Palpitations Respiratory: reports: Cough, PND, SOB, SOB on Exertion, Wheezing. denies: Hemoptysis Gastrointestinal: reports: No Symptoms Genitourinary: reports: No Symptoms Breasts: reports: No Symptoms Reported Musculoskeletal: reports: No Symptoms Integumentary: reports: No Symptoms Neurological: reports: No Symptoms Endocrine: reports: No Symptoms Hematology/Lymphatic: reports: No Symptoms Psychiatric: reports: No Symptoms Physical Exam Vital Signs: Vital Signs Temperature 98.1 F 05/03/17 10:00 Pulse Rate 92 H 05/03/17 14:43 Respiratory Rate 22 05/03/17 14:43 Blood Pressure 126/86 05/03/17 14:43 O2 Sat by Pulse Oximetry (%) 96 05/03/17 14:43 Constitutional: Yes: Mild Distress, Obese Eyes: Yes: Conjunctiva Clear, EOM Intact HENT: Yes: Atraumatic, Normocephalic Neck: Yes: Supple, Trachea Midline Cardiovascular: Yes: Tachycardia Respiratory: Yes: Cough, Diminished, On Nasal O2, Rales, Rhonchi, SOB, Tachypnea , Wheezes. No: Accessory Muscle Use, Stridor Gastrointestinal: Yes: Normal Bowel Sounds, Soft, Abdomen, Obese ...Rectal Exam: Yes: Deferred Renal/: Yes: WNL Musculoskeletal: Yes: WNL Extremities: Yes: WNL Edema: No Peripheral Pulses WNL: Yes Integumentary: Yes: WNL Neurological: Yes: WNL, Alert, Oriented ...Motor Strength: WNL Psychiatric: Yes: WNL, Alert, Oriented Labs: CBC, BMP 05/02/17 16:50 05/03/17 13:30 Imaging - Results Chest X-ray: Report Reviewed, Image Reviewed Problem List - Problems (1) Influenza A Code(s): J10.1 - FLU DUE TO OTH IDENT INFLUENZA VIRUS W OTH RESP MANIFEST (2) Pneumonia Code(s): J18.9 - PNEUMONIA, UNSPECIFIED ORGANISM Qualifiers: Pneumonia type: due to unspecified organism Laterality: left Lung location: unspecified part of lung Qualified Code(s): J18.9 - Pneumonia, unspecified organism (3) Acute on chronic respiratory failure with hypoxia and hypercapnia Code(s): J96.21 - ACUTE AND CHRONIC RESPIRATORY FAILURE WITH HYPOXIA; J96.22 - ACUTE AND CHRONIC RESPIRATORY FAILURE WITH HYPERCAPNIA (4) Allergy to multiple antibiotics Code(s): Z88.1 - ALLERGY STATUS TO OTHER ANTIBIOTIC AGENTS STATUS (5) CHF (congestive heart failure) Code(s): I50.9 - HEART FAILURE, UNSPECIFIED Qualifiers: Congestive heart failure type: unspecified Congestive heart failure chronicity: unspecified Qualified Code(s): I50.9 - Heart failure, unspecified (6) ICD (implantable cardioverter-defibrillator), dual, in situ Code(s): Z95.810 - PRESENCE OF AUTOMATIC (IMPLANTABLE) CARDIAC DEFIBRILLATOR (7) Obstructive sleep apnea Code(s): G47.33 - OBSTRUCTIVE SLEEP APNEA (ADULT) (PEDIATRIC) (8) SOB (shortness of breath) Code(s): R06.02 - SHORTNESS OF BREATH (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 (10) Sarcoidosis of lung Code(s): D86.0 - SARCOIDOSIS OF LUNG (11) Asthma Code(s): J45.909 - UNSPECIFIED ASTHMA, UNCOMPLICATED (12) Diastolic CHF Code(s): I50.30 - UNSPECIFIED DIASTOLIC (CONGESTIVE) HEART FAILURE (13) IDDM (insulin dependent diabetes mellitus) Code(s): E11.9 - TYPE 2 DIABETES MELLITUS WITHOUT COMPLICATIONS; Z79.4 - HAND FILER BALANCE WHEEL (CURRENT) USE OF INSULIN (14) UTI (urinary tract infection) Code(s): N39.0 - URINARY TRACT INFECTION, SITE NOT SPECIFIED Qualifiers: Urinary tract infection type: site unspecified Hematuria presence: with hematuria Qualified Code(s): N39.0 - Urinary tract infection, site not specified; R31.9 - Hematuria, unspecified; R31.9 - Hematuria, unspecified Assessment/Plan ABX per ID Tamiflu Brooks-culture BD TX Medrol O2 to maintain saturation NIPPV QHS and PRN Continue Eliquis Should have continuous Pulse Oximetry monitoring Will follow closely Thank you. Dr Rubio
[2017-05-03 18:18] VITALS: BMI 32.8
[2017-05-03] MEDS: PREGABALIN 75 MG CAPSULE PO SCH (21:36)
[2017-05-03] MEDS: MONTELUKAST NA 10 MG TABLET PO SCH (21:36)
[2017-05-03] MEDS: ATORVASTATIN CA 10 MG TABLET (FP) PO SCH (21:36)
[2017-05-04] MEDS: MAG HYDROX/AL HYDROX/SIMETH 355 ML ORAL.SUSP PO SCH ×4 (00:35→17:51)
[2017-05-04] MEDS: HYDROmorphone HCL CARPU-JECT 2 MG/1 ML DISP.SYRIN IVPB PRN ×3 (01:04→20:48)
[2017-05-04] MEDS: AZTREONAM 2 GM in DEXTROSE 5%-WATER - 100 ML IV SCH ×3 (01:09→17:51)
[2017-05-04] MEDS: methylPREDNISolone NA SUCC 40 MG/1 ML VIAL IVPUSH SCH ×3 (02:00→17:51)
[2017-05-04] MEDS: FUROSEMIDE 40 MG/4 ML INJECTABLE VIAL IVPUSH SCH ×2 (06:24→16:30)
[2017-05-04] MEDS ORDERED: PT OWN MED DRAWER 7, Y5N ONE ×4 (07:01→22:50)
[2017-05-04] MEDS: ALBUTEROL SO4 2.5/IPRATROPIUM 0.5 INH SOL 3 ML VIAL.NEB. NEB SCH ×3 (07:14→21:15)
[2017-05-04] MEDS: APIXABAN 5 MG TABLET PO SCH ×2 (09:35→22:55)
[2017-05-04] MEDS: morphine SO4 SUSTAINED ACTING 15 MG TABLET.SA PO SCH ×2 (09:35→22:55)
[2017-05-04] MEDS: RANITIDINE HCL 150 MG TABLET (FP) PO SCH ×2 (09:35→22:55)
[2017-05-04] MEDS: LISINOPRIL 10 MG TABLET (FP) PO SCH (09:36)
[2017-05-04] MEDS: PREGABALIN 75 MG CAPSULE PO SCH ×2 (09:36→22:55)
[2017-05-04] MEDS: OSELTAMIVIR PHOSPHATE 75 MG CAPSULE PO SCH (09:36)
[2017-05-04] MEDS: FERROUS SO4 325 MG TABLET (FP) PO SCH (09:36)
[2017-05-04] MEDS: DOCUSATE SODIUM 100 MG CAPSULE (FP) PO SCH (09:36)
--- NOTE | 2017-05-04 11:26 | PN ---
Progress Note, Physician History of Present Illness: PULMONARY ALERT,ON NASAL O2,NAD,FEELING BETTER - Current Medication List Current Medications: Active Medications Al Hydroxide/Mg Hydroxide (Mylanta Suspension -) 30 ml PO Q6HPO [facility] Last Admin: 05/04/17 06:22 Dose: Not Given Albuterol/Ipratropium (Duoneb -) 1 amp NEB RTID [facility] Last Admin: 05/04/17 07:14 Dose: 1 amp Apixaban (Eliquis -) 5 mg PO BID [facility] Last Admin: 05/04/17 09:35 Dose: 5 mg Atorvastatin Calcium (Lipitor -) 10 mg PO HS [facility] Last Admin: 05/03/17 21:36 Dose: 10 mg Docusate Sodium (Colace -) 100 mg PO DAILY [facility] Last Admin: 05/04/17 09:36 Dose: 100 mg Ferrous Sulfate (Feosol -) 325 mg PO DAILY [facility] Last Admin: 05/04/17 09:36 Dose: 325 mg Furosemide (Lasix Injection -) 40 mg IVPUSH BID@0600,1400 [facility] Last Admin: 05/04/17 06:24 Dose: 40 mg Hydromorphone HCl (Dilaudid Injection -) 2 mg IVPB Q6H PRN PRN Reason: pain Last Admin: 05/04/17 07:08 Dose: 2 mg Vancomycin HCl 1,250 mg/ (Dextrose) 250 mls @ 166.667 mls/hr IVPB BID@1100, 2300 [facility] PRN Reason: Protocol Last Admin: 05/03/17 23:46 Dose: 166.667 mls/hr Aztreonam 2 gm/ Dextrose 100 mls @ 100 mls/hr IV Q8H-IV [facility] PRN Reason: Protocol Last Admin: 05/04/17 09:36 Dose: 100 mls/hr Lisinopril (Prinivil) 10 mg PO DAILY [facility] Last Admin: 05/04/17 09:36 Dose: 10 mg Methylprednisolone Sodium Succinate (Solu-Medrol -) 40 mg IVPUSH Q8H-IV [facility] Last Admin: 05/04/17 09:36 Dose: 40 mg Montelukast Sodium (Singulair -) 10 mg PO HS [facility] Last Admin: 05/03/17 21:36 Dose: 10 mg Morphine Sulfate (Ms Contin -) 15 mg PO BID [facility] Last Admin: 05/04/17 09:35 Dose: 15 mg Oseltamivir Phosphate (Tamiflu -) 75 mg PO BID [facility] Stop: 05/08/17 09:59 Last Admin: 05/04/17 09:36 Dose: 75 mg Pregabalin (Lyrica -) 75 mg PO BID [facility] Last Admin: 05/04/17 09:36 Dose: 75 mg Ranitidine HCl (Zantac -) 150 mg PO BID [facility] Last Admin: 05/04/17 09:35 Dose: 150 mg - Objective Vital Signs: Vital Signs Temperature 97.1 F L 05/04/17 05:54 Pulse Rate 87 05/04/17 05:54 Respiratory Rate 20 05/04/17 05:54 Blood Pressure 112/70 05/04/17 05:54 O2 Sat by Pulse Oximetry (%) 96 05/03/17 21:00 Constitutional: Yes: Well Nourished, Calm Eyes: Yes: WNL HENT: Yes: WNL Neck: Yes: WNL Cardiovascular: Yes: Pulse Irregular, S1, S2 Respiratory: Yes: Rales (ANITA CRACKLES), Rhonchi (SCATTERED RHONCHI) Gastrointestinal: Yes: Normal Bowel Sounds, Soft Extremities: Yes: WNL Edema: Yes Labs: Assessment/Plan Problem List - Problems (1) Influenza A Code(s): J10.1 - FLU DUE TO OTH IDENT INFLUENZA VIRUS W OTH RESP MANIFEST (2) Pneumonia Code(s): J18.9 - PNEUMONIA, UNSPECIFIED ORGANISM Qualifiers: Pneumonia type: due to unspecified organism Laterality: left Lung location: unspecified part of lung Qualified Code(s): J18.9 - Pneumonia, unspecified organism (3) Acute on chronic respiratory failure with hypoxia and hypercapnia Code(s): J96.21 - ACUTE AND CHRONIC RESPIRATORY FAILURE WITH HYPOXIA; J96.22 - ACUTE AND CHRONIC RESPIRATORY FAILURE WITH HYPERCAPNIA (4) Allergy to multiple antibiotics Code(s): Z88.1 - ALLERGY STATUS TO OTHER ANTIBIOTIC AGENTS STATUS (5) CHF (congestive heart failure) Code(s): I50.9 - HEART FAILURE, UNSPECIFIED Qualifiers: Congestive heart failure type: unspecified Congestive heart failure chronicity: unspecified Qualified Code(s): I50.9 - Heart failure, unspecified (6) ICD (implantable cardioverter-defibrillator), dual, in situ Code(s): Z95.810 - PRESENCE OF AUTOMATIC (IMPLANTABLE) CARDIAC DEFIBRILLATOR (7) Obstructive sleep apnea Code(s): G47.33 - OBSTRUCTIVE SLEEP APNEA (ADULT) (PEDIATRIC) (8) SOB (shortness of breath) Code(s): R06.02 - SHORTNESS OF BREATH (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 (10) Sarcoidosis of lung Code(s): D86.0 - SARCOIDOSIS OF LUNG (11) Asthma Code(s): J45.909 - UNSPECIFIED ASTHMA, UNCOMPLICATED (12) Diastolic CHF Code(s): I50.30 - UNSPECIFIED DIASTOLIC (CONGESTIVE) HEART FAILURE (13) IDDM (insulin dependent diabetes mellitus) Code(s): E11.9 - TYPE 2 DIABETES MELLITUS WITHOUT COMPLICATIONS; Z79.4 - PUBLICATION DISTRIBUTOR (CURRENT) USE OF INSULIN (14) UTI (urinary tract infection) Code(s): N39.0 - URINARY TRACT INFECTION, SITE NOT SPECIFIED Qualifiers: Urinary tract infection type: site unspecified Hematuria presence: with hematuria Qualified Code(s): N39.0 - Urinary tract infection, site not specified; R31.9 - Hematuria, unspecified; R31.9 - Hematuria, unspecified Assessment/Plan ABX Tamiflu BD TX Medrol O2 to maintain saturation NIPPV QHS and PRN Continue Angel EUBANKS
[2017-05-04] MEDS: VANCOMYCIN 1,250 MG in DEXTROSE 5%-WATER - 250 ML IVPB SCH ×2 (12:11→22:55)
--- NOTE | 2017-05-04 12:12 | PN ---
Progress Note, Physician Chief Complaint: Tachypneic at rest C/O dry cough, generalized bodyaches Temps down, afebrile BC no growth Urine c/s mixed gram negatives Tolerating antibiotics - Current Medication List Current Medications: Active Medications Al Hydroxide/Mg Hydroxide (Mylanta Suspension -) 30 ml PO Q6HPO [facility] Last Admin: 05/04/17 06:22 Dose: Not Given Albuterol/Ipratropium (Duoneb -) 1 amp NEB RTID [facility] Last Admin: 05/04/17 07:14 Dose: 1 amp Apixaban (Eliquis -) 5 mg PO BID [facility] Last Admin: 05/04/17 09:35 Dose: 5 mg Atorvastatin Calcium (Lipitor -) 10 mg PO HS [facility] Last Admin: 05/03/17 21:36 Dose: 10 mg Docusate Sodium (Colace -) 100 mg PO DAILY [facility] Last Admin: 05/04/17 09:36 Dose: 100 mg Ferrous Sulfate (Feosol -) 325 mg PO DAILY [facility] Last Admin: 05/04/17 09:36 Dose: 325 mg Furosemide (Lasix Injection -) 40 mg IVPUSH BID@0600,1400 [facility] Last Admin: 05/04/17 06:24 Dose: 40 mg Hydromorphone HCl (Dilaudid Injection -) 2 mg IVPB Q6H PRN PRN Reason: pain Last Admin: 05/04/17 07:08 Dose: 2 mg Vancomycin HCl 1,250 mg/ (Dextrose) 250 mls @ 166.667 mls/hr IVPB BID@1100, 2300 [facility] PRN Reason: Protocol Last Admin: 05/03/17 23:46 Dose: 166.667 mls/hr Aztreonam 2 gm/ Dextrose 100 mls @ 100 mls/hr IV Q8H-IV [facility] PRN Reason: Protocol Last Admin: 05/04/17 09:36 Dose: 100 mls/hr Lisinopril (Prinivil) 10 mg PO DAILY [facility] Last Admin: 05/04/17 09:36 Dose: 10 mg Methylprednisolone Sodium Succinate (Solu-Medrol -) 40 mg IVPUSH Q8H-IV [facility] Last Admin: 05/04/17 09:36 Dose: 40 mg Montelukast Sodium (Singulair -) 10 mg PO HS [facility] Last Admin: 05/03/17 21:36 Dose: 10 mg Morphine Sulfate (Ms Contin -) 15 mg PO BID [facility] Last Admin: 05/04/17 09:35 Dose: 15 mg Oseltamivir Phosphate (Tamiflu -) 75 mg PO BID [facility] Stop: 05/08/17 09:59 Last Admin: 05/04/17 09:36 Dose: 75 mg Pregabalin (Lyrica -) 75 mg PO BID [facility] Last Admin: 05/04/17 09:36 Dose: 75 mg Ranitidine HCl (Zantac -) 150 mg PO BID [facility] Last Admin: 05/04/17 09:35 Dose: 150 mg - Objective Vital Signs: Vital Signs Temperature 97.1 F L 05/04/17 05:54 Pulse Rate 87 05/04/17 05:54 Respiratory Rate 20 05/04/17 05:54 Blood Pressure 112/70 05/04/17 05:54 O2 Sat by Pulse Oximetry (%) 96 05/03/17 21:00 Constitutional: Yes: No Distress, Obese Eyes: Yes: Conjunctiva Clear Cardiovascular: Yes: Regular Rate and Rhythm, S1, S2 Respiratory: Yes: Other (+ rales, bases bilaterally) Gastrointestinal: Yes: Normal Bowel Sounds, Soft. No: Tenderness Edema: Yes Labs: CBC, BMP 05/02/17 16:50 05/03/17 13:30 INR, PTT INR 1.36 (0.82-1.09) H 05/02/17 16:50 Assessment/Plan Acute influenza A Exacerbation COPD Possible pneumonia UTI Major PCN allergy Await c/s Continue empiric vancomycin / aztreonam Tamiflu
[2017-05-04] MEDS: ACETAMINOPHEN 325 MG TABLET (FP) PO SCH ×2 (12:33→19:00)
[2017-05-04 13:07] LABS: BASO % 0.7 % (0-2.0); HEMATOCRIT 35.8 % (32.4-45.2); HEMOGLOBIN 11.2 GM/dL (10.7-15.3); LYMPH % 15.3 % (8-40); MCHC 31.4 g/dl (32.0-36.0); MEAN CELL VOLUME 85.9 fl (80-96); MEAN PLT VOLUME 8.1 fl (7.5-11.1); MONO % 2.6 % (3.8-10.2); NEUT % 81.4 % (42.8-82.8); PLATELET COUNT 289 K/MM3 (134-434); RBC 4.16 M/mm3 (3.60-5.2); RDW 16.8 % (11.6-15.6); WHITE BLOOD COUNT 9.3 K/mm3 (4.0-10.0)
[2017-05-04 13:31] LABS: ANION GAP 10 (8-16); BLOOD UREA NITROGEN 21 mg/dL (7-18); CALCIUM 8.6 mg/dL (8.5-10.1); CHLORIDE 92 mmol/L (98-107); CO2 32 mmol/L (21-32); POTASSIUM 4.3 mmol/L (3.5-5.1); SODIUM 134 mmol/L (136-145)
[2017-05-04 13:39] LABS: GLUCOSE,RANDOM 357 mg/dL (74-106)
[2017-05-04] MEDS: ALBUTEROL SO4 2.5/IPRATROPIUM 0.5 INH SOL 3 ML VIAL.NEB. NEB PRN (18:52)
[2017-05-04] MEDS: ATORVASTATIN CA 10 MG TABLET (FP) PO SCH (22:55)
[2017-05-04] MEDS: MONTELUKAST NA 10 MG TABLET PO SCH (22:55)
[2017-05-05] MEDS: MAG HYDROX/AL HYDROX/SIMETH 355 ML ORAL.SUSP PO SCH ×4 (00:35→17:48)
[2017-05-05] MEDS: ACETAMINOPHEN 325 MG TABLET (FP) PO SCH ×4 (00:35→18:07)
[2017-05-05] MEDS: OSELTAMIVIR PHOSPHATE 75 MG CAPSULE PO SCH ×4 (00:36→21:19)
[2017-05-05] MEDS: AZTREONAM 2 GM in DEXTROSE 5%-WATER - 100 ML IV SCH ×4 (02:54→17:45)
[2017-05-05] MEDS: methylPREDNISolone NA SUCC 40 MG/1 ML VIAL IVPUSH SCH ×5 (02:54→21:17)
[2017-05-05] MEDS ORDERED: PT OWN MED DRAWER 7, Y5N ONE ×4 (05:47→16:56)
[2017-05-05] MEDS: FUROSEMIDE 40 MG/4 ML INJECTABLE VIAL IVPUSH SCH ×2 (05:59→16:43)
[2017-05-05] MEDS: ALBUTEROL SO4 2.5/IPRATROPIUM 0.5 INH SOL 3 ML VIAL.NEB. NEB SCH ×4 (08:32→20:43)
[2017-05-05] MEDS: morphine SO4 SUSTAINED ACTING 15 MG TABLET.SA PO SCH ×3 (08:52→21:18)
[2017-05-05] MEDS: DOCUSATE SODIUM 100 MG CAPSULE (FP) PO SCH ×2 (08:53→09:47)
[2017-05-05] MEDS: FERROUS SO4 325 MG TABLET (FP) PO SCH ×2 (08:53→09:47)
[2017-05-05] MEDS: APIXABAN 5 MG TABLET PO SCH ×3 (08:53→21:18)
[2017-05-05] MEDS: PREGABALIN 75 MG CAPSULE PO SCH ×3 (08:53→21:17)
[2017-05-05] MEDS: LISINOPRIL 10 MG TABLET (FP) PO SCH ×2 (08:54→09:47)
[2017-05-05] MEDS: RANITIDINE HCL 150 MG TABLET (FP) PO SCH ×3 (08:54→21:17)
[2017-05-05] MEDS: VANCOMYCIN 1,250 MG in DEXTROSE 5%-WATER - 250 ML IVPB SCH ×2 (10:33→22:51)
--- NOTE | 2017-05-05 11:53 | PN ---
Progress Note, Physician Chief Complaint: Less tachypneic at rest C/O dry cough, generalized bodyache Temps down, afebrile BC no growth Urine c/s mixed gram negatives. Final c/s pending Tolerating antibiotics - Current Medication List Current Medications: Active Medications Acetaminophen (Tylenol -) 650 mg PO Q6H [facility] Stop: 05/07/17 12:29 Last Admin: 05/05/17 11:31 Dose: 650 mg Al Hydroxide/Mg Hydroxide (Mylanta Suspension -) 30 ml PO Q6HPO [facility] Last Admin: 05/05/17 11:32 Dose: 30 ml Albuterol/Ipratropium (Duoneb -) 1 amp NEB Q2H PRN PRN Reason: SHORTNESS OF BREATH Last Admin: 05/04/17 18:52 Dose: 1 amp Albuterol/Ipratropium (Duoneb -) 1 amp NEB RQID [facility] Last Admin: 05/05/17 08:32 Dose: 1 amp Apixaban (Eliquis -) 5 mg PO BID [facility] Last Admin: 05/05/17 09:47 Dose: Not Given Atorvastatin Calcium (Lipitor -) 10 mg PO HS [facility] Last Admin: 05/04/17 22:55 Dose: 10 mg Docusate Sodium (Colace -) 100 mg PO DAILY [facility] Last Admin: 05/05/17 09:47 Dose: Not Given Ferrous Sulfate (Feosol -) 325 mg PO DAILY [facility] Last Admin: 05/05/17 09:47 Dose: Not Given Furosemide (Lasix Injection -) 40 mg IVPUSH BID@0600,1400 [facility] Last Admin: 05/05/17 05:59 Dose: 40 mg Hydromorphone HCl (Dilaudid Injection -) 2 mg IVPB Q6H PRN PRN Reason: pain Last Admin: 05/04/17 20:48 Dose: 2 mg Vancomycin HCl 1,250 mg/ (Dextrose) 250 mls @ 166.667 mls/hr IVPB BID@1100, 2300 [facility] PRN Reason: Protocol Last Admin: 05/05/17 10:33 Dose: 166.667 mls/hr Aztreonam 2 gm/ Dextrose 100 mls @ 100 mls/hr IV Q8H-IV [facility] PRN Reason: Protocol Last Admin: 05/05/17 09:47 Dose: Not Given Lisinopril (Prinivil) 10 mg PO DAILY [facility] Last Admin: 05/05/17 09:47 Dose: Not Given Methylprednisolone Sodium Succinate (Solu-Medrol -) 40 mg IVPUSH Q6H-IV [facility] Montelukast Sodium (Singulair -) 10 mg PO HS [facility] Last Admin: 05/04/17 22:55 Dose: 10 mg Morphine Sulfate (Ms Contin -) 15 mg PO BID [facility] Last Admin: 05/05/17 09:48 Dose: Not Given Oseltamivir Phosphate (Tamiflu -) 75 mg PO BID [facility] Stop: 05/08/17 09:59 Last Admin: 05/05/17 09:48 Dose: Not Given Pregabalin (Lyrica -) 75 mg PO BID [facility] Last Admin: 05/05/17 09:47 Dose: Not Given Ranitidine HCl (Zantac -) 150 mg PO BID [facility] Last Admin: 05/05/17 09:48 Dose: Not Given - Objective Vital Signs: Vital Signs Temperature 98.9 F 05/05/17 06:00 Pulse Rate 90 05/05/17 06:00 Respiratory Rate 20 05/05/17 06:00 Blood Pressure 122/72 05/05/17 06:00 O2 Sat by Pulse Oximetry (%) 97 05/05/17 06:00 Constitutional: Yes: No Distress Eyes: Yes: Conjunctiva Clear Cardiovascular: Yes: Regular Rate and Rhythm, S1, S2 Respiratory: Yes: Other (Crepitations L base) Gastrointestinal: Yes: Normal Bowel Sounds, Soft. No: Tenderness Edema: Yes Edema: LLE: 1+, RLE: 1+ Labs: CBC, BMP 05/04/17 12:40 05/04/17 12:40 INR, PTT INR 1.36 (0.82-1.09) H 05/02/17 16:50 Assessment/Plan Acute influenza A Exacerbation COPD Possible pneumonia UTI Major PCN allergy Await Final c/s Continue empiric vancomycin / aztreonam Tamiflu
--- NOTE | 2017-05-05 14:39 | PN ---
Progress Note, Physician Chief Complaint: DRY COUGH History of Present Illness: RETURNS BACK FROM [facility] INFLU A POSITIVE - Current Medication List Current Medications: Active Medications Acetaminophen (Tylenol -) 650 mg PO Q6H [facility] Stop: 05/07/17 12:29 Last Admin: 05/05/17 11:31 Dose: 650 mg Al Hydroxide/Mg Hydroxide (Mylanta Suspension -) 30 ml PO Q6HPO [facility] Last Admin: 05/05/17 11:32 Dose: 30 ml Albuterol/Ipratropium (Duoneb -) 1 amp NEB Q2H PRN PRN Reason: SHORTNESS OF BREATH Last Admin: 05/04/17 18:52 Dose: 1 amp Albuterol/Ipratropium (Duoneb -) 1 amp NEB RQID [facility] Last Admin: 05/05/17 11:05 Dose: 1 amp Apixaban (Eliquis -) 5 mg PO BID [facility] Last Admin: 05/05/17 09:47 Dose: Not Given Atorvastatin Calcium (Lipitor -) 10 mg PO HS [facility] Last Admin: 05/04/17 22:55 Dose: 10 mg Docusate Sodium (Colace -) 100 mg PO DAILY [facility] Last Admin: 05/05/17 09:47 Dose: Not Given Ferrous Sulfate (Feosol -) 325 mg PO DAILY [facility] Last Admin: 05/05/17 09:47 Dose: Not Given Furosemide (Lasix Injection -) 40 mg IVPUSH BID@0600,1400 [facility] Last Admin: 05/05/17 05:59 Dose: 40 mg Hydromorphone HCl (Dilaudid Injection -) 2 mg IVPB Q6H PRN PRN Reason: pain Last Admin: 05/04/17 20:48 Dose: 2 mg Vancomycin HCl 1,250 mg/ (Dextrose) 250 mls @ 166.667 mls/hr IVPB BID@1100, 2300 [facility] PRN Reason: Protocol Last Admin: 05/05/17 10:33 Dose: 166.667 mls/hr Aztreonam 2 gm/ Dextrose 100 mls @ 100 mls/hr IV Q8H-IV [facility] PRN Reason: Protocol Last Admin: 05/05/17 09:47 Dose: Not Given Lisinopril (Prinivil) 10 mg PO DAILY [facility] Last Admin: 05/05/17 09:47 Dose: Not Given Methylprednisolone Sodium Succinate (Solu-Medrol -) 40 mg IVPUSH Q6H-IV [facility] Montelukast Sodium (Singulair -) 10 mg PO HS [facility] Last Admin: 05/04/17 22:55 Dose: 10 mg Morphine Sulfate (Ms Contin -) 15 mg PO BID [facility] Last Admin: 05/05/17 09:48 Dose: Not Given Oseltamivir Phosphate (Tamiflu -) 75 mg PO BID [facility] Stop: 05/08/17 09:59 Last Admin: 05/05/17 09:48 Dose: Not Given Pregabalin (Lyrica -) 75 mg PO BID [facility] Last Admin: 05/05/17 09:47 Dose: Not Given Ranitidine HCl (Zantac -) 150 mg PO BID [facility] Last Admin: 05/05/17 09:48 Dose: Not Given - Objective Vital Signs: Vital Signs Temperature 98.9 F 05/05/17 06:00 Pulse Rate 90 05/05/17 06:00 Respiratory Rate 20 05/05/17 06:00 Blood Pressure 122/72 05/05/17 06:00 O2 Sat by Pulse Oximetry (%) 97 05/05/17 06:00 Constitutional: Yes: Anxious Eyes: Yes: EOM Intact HENT: Yes: Normocephalic Neck: Yes: Trachea Midline Cardiovascular: Yes: Regular Rate and Rhythm, S1, S2 Respiratory: Yes: Rales (BASES) Gastrointestinal: Yes: Abdomen, Obese Edema: LLE: 1+, RLE: 1+ Neurological: Yes: Alert Labs: CBC, BMP 05/04/17 12:40 05/04/17 12:40 INR, PTT INR 1.36 (0.82-1.09) H 05/02/17 16:50 - ....Imaging Chest X-ray: Report Reviewed, Image Reviewed EKG: Report Reviewed, Image Reviewed Problem List - Problems (1) Influenza A Code(s): J10.1 - FLU DUE TO OTH IDENT INFLUENZA VIRUS W OTH RESP MANIFEST (2) Pneumonia Code(s): J18.9 - PNEUMONIA, UNSPECIFIED ORGANISM Qualifiers: Pneumonia type: due to unspecified organism Laterality: left Lung location: unspecified part of lung Qualified Code(s): J18.9 - Pneumonia, unspecified organism (3) UTI (urinary tract infection) Code(s): N39.0 - URINARY TRACT INFECTION, SITE NOT SPECIFIED Qualifiers: Urinary tract infection type: site unspecified Hematuria presence: with hematuria Qualified Code(s): N39.0 - Urinary tract infection, site not specified; R31.9 - Hematuria, unspecified; R31.9 - Hematuria, unspecified (4) Abdominal pain Code(s): R10.9 - UNSPECIFIED ABDOMINAL PAIN (5) Acute on chronic respiratory failure with hypoxia and hypercapnia Code(s): J96.21 - ACUTE AND CHRONIC RESPIRATORY FAILURE WITH HYPOXIA; J96.22 - ACUTE AND CHRONIC RESPIRATORY FAILURE WITH HYPERCAPNIA Assessment/Plan ABX per ID Tamiflu Brooks-culture BD TX Medrol same dose O2 to maintain saturation NIPPV QHS and PRN Continue Eliquis Should have continuous Pulse Oximetry monitoring Will follow Yousif DENISE MD
[2017-05-05] MEDS: ATORVASTATIN CA 10 MG TABLET (FP) PO SCH (21:17)
[2017-05-05] MEDS: MONTELUKAST NA 10 MG TABLET PO SCH (21:17)
--- NOTE | 2017-05-05 23:50 | PN ---
Progress Note (short form) - Note Progress Note: in bed c/o of body aches on O2 mask c/o SOB Vital Signs Period Temp Pulse Resp BP Sys/Londono Pulse Ox Last 24 Hr 97.8 F-100.4 F 84-135 18-37 116-168/65-88 94-98 neck supple heart S1/S2 lungs scattered rhonchi / wheezing abd soft nontender ext no calf tenderenss CBC, BMP 05/02/17 16:50 05/02/17 16:50 Microbiology 05/02/17 18:15 Nasopharyngeal Swab Influenza Types A,B Antigen (SANGITA) - Final 05/02/17 18:15 Nasopharyngeal Swab - Final Active Medications Al Hydroxide/Mg Hydroxide (Mylanta Suspension -) 30 ml PO Q6HPO [facility] Last Admin: 05/03/17 06:35 Dose: 30 ml Albuterol/Ipratropium (Duoneb -) 1 amp NEB RTID [facility] Last Admin: 05/03/17 11:18 Dose: 1 amp Apixaban (Eliquis -) 5 mg PO BID [facility] Last Admin: 05/03/17 11:18 Dose: 5 mg Atorvastatin Calcium (Lipitor -) 10 mg PO HS [facility] Docusate Sodium (Colace -) 100 mg PO DAILY [facility] Last Admin: 05/03/17 11:18 Dose: 100 mg Ferrous Sulfate (Feosol -) 325 mg PO DAILY [facility] Last Admin: 05/03/17 11:16 Dose: 325 mg Furosemide (Lasix Injection -) 40 mg IVPUSH BID@0600,1400 [facility] Last Admin: 05/03/17 06:36 Dose: 40 mg Hydromorphone HCl (Dilaudid Injection -) 2 mg IVPB Q6H PRN PRN Reason: pain Vancomycin HCl 1,250 mg/ (Dextrose) 250 mls @ 166.667 mls/hr IVPB BID@1100, 2300 [facility] PRN Reason: Protocol Aztreonam 2 gm/ Dextrose 100 mls @ 100 mls/hr IV Q8H-IV [facility] PRN Reason: Protocol Lisinopril (Prinivil) 10 mg PO DAILY [facility] Last Admin: 05/03/17 11:18 Dose: 10 mg Methylprednisolone Sodium Succinate (Solu-Medrol -) 40 mg IVPUSH Q8H-IV [facility] Last Admin: 01/22/18 11:18 Dose: 40 mg Montelukast Sodium (Singulair -) 10 mg PO HS [facility] Morphine Sulfate (Ms Contin -) 15 mg PO BID [facility] Oseltamivir Phosphate (Tamiflu -) 75 mg PO BID [facility] Stop: 05/08/17 09:59 Pregabalin (Lyrica -) 75 mg PO BID [facility] Ranitidine HCl (Zantac -) 150 mg PO BID [facility] # + flu oseltamivir general body aches / increase wheezing tylenol q 6H and inc nebulizer frequency discuss changes with patient and with RN patient with multiple abx allergies # UTI consult emperic Aztreonam / pending C/S appreciate ID # 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 Flu + Plan IV steroids / neb/ O2 / bipap / abx per ID panculture awaiting results # Cardiac Cardiac Sarcoid -- hx of VT - AICD chronic diastolic HF ( echo NL EF) no signs of fluid overload steroid dependant # HTN continue meds # DM neuropathy resume meds sliding scale as Steroids will inc FS # hx of DVt continue with NOAC # chronic back pain resume MScontin 15 bid Dilaudid IV q4 prn patient states tolerates these meds Problem List - Problems (1) Influenza A Code(s): J10.1 - FLU DUE TO OTH IDENT INFLUENZA VIRUS W OTH RESP MANIFEST (2) Pneumonia Code(s): J18.9 - PNEUMONIA, UNSPECIFIED ORGANISM Qualifiers: Pneumonia type: due to unspecified organism Laterality: left Lung location: unspecified part of lung Qualified Code(s): J18.9 - Pneumonia, unspecified organism (3) Abdominal pain Code(s): R10.9 - UNSPECIFIED ABDOMINAL PAIN (4) Acute on chronic respiratory failure with hypoxia and hypercapnia Code(s): J96.21 - ACUTE AND CHRONIC RESPIRATORY FAILURE WITH HYPOXIA; J96.22 - ACUTE AND CHRONIC RESPIRATORY FAILURE WITH HYPERCAPNIA (5) CHF (congestive heart failure) Code(s): I50.9 - HEART FAILURE, UNSPECIFIED Qualifiers: Congestive heart failure type: unspecified Congestive heart failure chronicity: unspecified Qualified Code(s): I50.9 - Heart failure, unspecified (6) COPD (chronic obstructive pulmonary disease) Code(s): J44.9 - CHRONIC OBSTRUCTIVE PULMONARY DISEASE, UNSPECIFIED (7) Chronic low back pain Code(s): M54.5 - LOW BACK PAIN; G89.29 - OTHER CHRONIC PAIN (8) Hypoxia Code(s): R09.02 - HYPOXEMIA (9) ICD (implantable cardioverter-defibrillator), dual, in situ Code(s): Z95.810 - PRESENCE OF AUTOMATIC (IMPLANTABLE) CARDIAC DEFIBRILLATOR (10) Lung infiltrate Code(s): R91.8 - OTHER NONSPECIFIC ABNORMAL FINDING OF LUNG FIELD (11) Obstructive sleep apnea Code(s): G47.33 - OBSTRUCTIVE SLEEP APNEA (ADULT) (PEDIATRIC) (12) Respiratory failure Code(s): J96.90 - RESPIRATORY FAILURE, UNSP, UNSP W HYPOXIA OR HYPERCAPNIA (13) SOB (shortness of breath) Code(s): R06.02 - SHORTNESS OF BREATH (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
--- NOTE | 2017-05-05 23:55 | PN ---
Progress Note (short form) - Note Progress Note: in bed c/o of body aches on O2 mask c/o SOB receiving pain meds -- then falls asleep was difficult to arouse discussed care with RN will not increase pain meds further Vital Signs Period Temp Pulse Resp BP Sys/Londono Pulse Ox Last 24 Hr 97.8 F-100.4 F 84-135 18-37 116-168/65-88 94-98 Vital Signs Period Temp Pulse Resp BP Sys/Londono Pulse Ox Last 24 Hr 98.2 F-98.9 F 90-122 19-22 100-132/62-80 97-99 neck supple heart S1/S2 lungs scattered rhonchi / wheezing abd soft nontender ext no calf tenderenss CBC, BMP 05/04/17 12:40 05/04/17 12:40 Microbiology Microbiology 05/02/17 17:35 Blood - Peripheral Venous Blood Culture - Preliminary NO GROWTH OBTAINED AFTER 72 HOURS, INCUBATION TO CONTINUE FOR 2 DAYS. 05/02/17 17:30 Blood - Peripheral Venous Blood Culture - Preliminary NO GROWTH OBTAINED AFTER 72 HOURS, INCUBATION TO CONTINUE FOR 2 DAYS. 05/02/17 18:15 Urine - Urine Clean Catch Urine Culture - Final Enterobacter Aerogenes 05/02/17 18:15 Nasopharyngeal Swab Influenza Types A,B Antigen (SANGITA) - Final 05/02/17 18:15 Nasopharyngeal Swab - Final Active Medications Acetaminophen (Tylenol -) 650 mg PO Q6H [facility] Stop: 05/07/17 12:29 Last Admin: 05/05/17 18:07 Dose: 650 mg Al Hydroxide/Mg Hydroxide (Mylanta Suspension -) 30 ml PO Q6HPO [facility] Last Admin: 05/05/17 17:48 Dose: Not Given Albuterol/Ipratropium (Duoneb -) 1 amp NEB Q2H PRN PRN Reason: SHORTNESS OF BREATH Last Admin: 05/04/17 18:52 Dose: 1 amp Albuterol/Ipratropium (Duoneb -) 1 amp NEB RQID [facility] Last Admin: 05/05/17 20:43 Dose: 1 amp Apixaban (Eliquis -) 5 mg PO BID [facility] Last Admin: 05/05/17 21:18 Dose: 5 mg Atorvastatin Calcium (Lipitor -) 10 mg PO HS [facility] Last Admin: 05/05/17 21:17 Dose: 10 mg Docusate Sodium (Colace -) 100 mg PO DAILY [facility] Last Admin: 05/05/17 09:47 Dose: Not Given Ferrous Sulfate (Feosol -) 325 mg PO DAILY [facility] Last Admin: 05/05/17 09:47 Dose: Not Given Furosemide (Lasix Injection -) 40 mg IVPUSH BID@0600,1400 [facility] Last Admin: 05/05/17 16:43 Dose: 40 mg Hydromorphone HCl (Dilaudid Injection -) 2 mg IVPB Q6H PRN PRN Reason: pain Last Admin: 05/04/17 20:48 Dose: 2 mg Vancomycin HCl 1,250 mg/ (Dextrose) 250 mls @ 166.667 mls/hr IVPB BID@1100, 2300 [facility] PRN Reason: Protocol Last Admin: 05/05/17 22:51 Dose: 166.667 mls/hr Aztreonam 2 gm/ Dextrose 100 mls @ 100 mls/hr IV Q8H-IV [facility] PRN Reason: Protocol Last Admin: 05/05/17 17:45 Dose: 100 mls/hr Lisinopril (Prinivil) 10 mg PO DAILY [facility] Last Admin: 05/05/17 09:47 Dose: Not Given Methylprednisolone Sodium Succinate (Solu-Medrol -) 40 mg IVPUSH Q6H-IV [facility] Last Admin: 05/05/17 21:17 Dose: 40 mg Montelukast Sodium (Singulair -) 10 mg PO HS [facility] Last Admin: 05/05/17 21:17 Dose: 10 mg Morphine Sulfate (Ms Contin -) 15 mg PO BID [facility] Last Admin: 05/05/17 21:18 Dose: 15 mg Oseltamivir Phosphate (Tamiflu -) 75 mg PO BID [facility] Stop: 05/08/17 09:59 Last Admin: 05/05/17 21:19 Dose: 75 mg Pregabalin (Lyrica -) 75 mg PO BID [facility] Last Admin: 05/05/17 21:17 Dose: 75 mg Ranitidine HCl (Zantac -) 150 mg PO BID [facility] Last Admin: 05/05/17 21:17 Dose: 150 mg # + flu oseltamivir general body aches / increased wheezing tylenol q 6H and inc nebulizer frequency discuss changes with patient and with RN will increase Steriods to Q 6H patient with multiple abx allergies # UTI consult emperic Aztreonam appreciate ID # 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 Flu + Plan IV steroids / neb/ O2 / bipap / abx per ID panculture awaiting results # Cardiac Cardiac Sarcoid -- hx of VT - AICD chronic diastolic HF ( echo NL EF) no signs of fluid overload steroid dependant # HTN continue meds # DM neuropathy resume meds sliding scale as Steroids will inc FS # hx of DVt continue with NOAC # chronic back pain resume MScontin 15 bid Dilaudid IV q4 prn patient states tolerates these meds Problem List - Problems (1) Influenza A Code(s): J10.1 - FLU DUE TO OTH IDENT INFLUENZA VIRUS W OTH RESP MANIFEST (2) Pneumonia Code(s): J18.9 - PNEUMONIA, UNSPECIFIED ORGANISM Qualifiers: Pneumonia type: due to unspecified organism Laterality: left Lung location: unspecified part of lung Qualified Code(s): J18.9 - Pneumonia, unspecified organism (3) Abdominal pain Code(s): R10.9 - UNSPECIFIED ABDOMINAL PAIN (4) Acute on chronic respiratory failure with hypoxia and hypercapnia Code(s): J96.21 - ACUTE AND CHRONIC RESPIRATORY FAILURE WITH HYPOXIA; J96.22 - ACUTE AND CHRONIC RESPIRATORY FAILURE WITH HYPERCAPNIA (5) CHF (congestive heart failure) Code(s): I50.9 - HEART FAILURE, UNSPECIFIED Qualifiers: Congestive heart failure type: unspecified Congestive heart failure chronicity: unspecified Qualified Code(s): I50.9 - Heart failure, unspecified (6) COPD (chronic obstructive pulmonary disease) Code(s): J44.9 - CHRONIC OBSTRUCTIVE PULMONARY DISEASE, UNSPECIFIED (7) Chronic low back pain Code(s): M54.5 - LOW BACK PAIN; G89.29 - OTHER CHRONIC PAIN (8) Hypoxia Code(s): R09.02 - HYPOXEMIA (9) ICD (implantable cardioverter-defibrillator), dual, in situ Code(s): Z95.810 - PRESENCE OF AUTOMATIC (IMPLANTABLE) CARDIAC DEFIBRILLATOR (10) Lung infiltrate Code(s): R91.8 - OTHER NONSPECIFIC ABNORMAL FINDING OF LUNG FIELD (11) Obstructive sleep apnea Code(s): G47.33 - OBSTRUCTIVE SLEEP APNEA (ADULT) (PEDIATRIC) (12) Respiratory failure Code(s): J96.90 - RESPIRATORY FAILURE, UNSP, UNSP W HYPOXIA OR HYPERCAPNIA (13) SOB (shortness of breath) Code(s): R06.02 - SHORTNESS OF BREATH (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
[2017-05-06] MEDS: MAG HYDROX/AL HYDROX/SIMETH 355 ML ORAL.SUSP PO SCH ×3 (00:29→12:13)
[2017-05-06] MEDS: ACETAMINOPHEN 325 MG TABLET (FP) PO SCH ×4 (00:29→17:31)
[2017-05-06] MEDS: ALBUTEROL SO4 2.5/IPRATROPIUM 0.5 INH SOL 3 ML VIAL.NEB. NEB PRN (01:45)
[2017-05-06] MEDS: AZTREONAM 2 GM in DEXTROSE 5%-WATER - 100 ML IV SCH ×3 (02:06→17:31)
[2017-05-06] MEDS: methylPREDNISolone NA SUCC 40 MG/1 ML VIAL IVPUSH SCH ×4 (04:15→21:31)
[2017-05-06] MEDS: FUROSEMIDE 40 MG/4 ML INJECTABLE VIAL IVPUSH SCH ×2 (06:26→13:30)
[2017-05-06] MEDS: ALBUTEROL SO4 2.5/IPRATROPIUM 0.5 INH SOL 3 ML VIAL.NEB. NEB SCH ×4 (08:05→20:35)
[2017-05-06] MEDS ORDERED: PT OWN MED DRAWER 7, Y5N ONE ×2 (08:18→16:29)
[2017-05-06 08:57] LABS: BASO % 0.7 % (0-2.0); HEMATOCRIT 37.3 % (32.4-45.2); HEMOGLOBIN 11.7 GM/dL (10.7-15.3); LYMPH % 14.9 % (8-40); MCH 26.8 pg (25.7-33.7); MCHC 31.4 g/dl (32.0-36.0); MEAN CELL VOLUME 85.3 fl (80-96); MEAN PLT VOLUME 8.3 fl (7.5-11.1); MONO % 4.4 % (3.8-10.2); PLATELET COUNT 309 K/MM3 (134-434); RBC 4.37 M/mm3 (3.60-5.2); RDW 16.6 % (11.6-15.6); WHITE BLOOD COUNT 8.1 K/mm3 (4.0-10.0)
[2017-05-06] MEDS: morphine SO4 SUSTAINED ACTING 15 MG TABLET.SA PO SCH ×2 (09:03→21:47)
[2017-05-06] MEDS: RANITIDINE HCL 150 MG TABLET (FP) PO SCH ×2 (09:04→21:46)
[2017-05-06] MEDS: FERROUS SO4 325 MG TABLET (FP) PO SCH (09:04)
[2017-05-06] MEDS: APIXABAN 5 MG TABLET PO SCH ×2 (09:05→21:45)
[2017-05-06] MEDS: LISINOPRIL 10 MG TABLET (FP) PO SCH (09:05)
[2017-05-06] MEDS: PREGABALIN 75 MG CAPSULE PO SCH ×2 (09:05→21:46)
[2017-05-06] MEDS: DOCUSATE SODIUM 100 MG CAPSULE (FP) PO SCH (09:05)
[2017-05-06] MEDS: OSELTAMIVIR PHOSPHATE 75 MG CAPSULE PO SCH ×2 (09:06→21:48)
[2017-05-06 09:27] LABS: ANION GAP 11 (8-16); BLOOD UREA NITROGEN 22 mg/dL (7-18); CALCIUM 8.9 mg/dL (8.5-10.1); CHLORIDE 93 mmol/L (98-107); CO2 31 mmol/L (21-32); MAGNESIUM 2.1 mg/dL (1.8-2.4); PHOSPHOROUS 2.6 mg/dL (2.5-4.9); POTASSIUM 4.1 mmol/L (3.5-5.1); SODIUM 135 mmol/L (136-145)
[2017-05-06 09:41] LABS: GLUCOSE,RANDOM 409 mg/dL (74-106)
[2017-05-06] MEDS: VANCOMYCIN 1,250 MG in DEXTROSE 5%-WATER - 250 ML IVPB SCH ×2 (10:49→11:04)
[2017-05-06] MEDS ORDERED: INSULIN (NOVOLOG) ASPART 100 UNITS/ML 10ML VIAL SQ ONE (11:30)
--- NOTE | 2017-05-06 12:05 | PN ---
Progress Note, Physician History of Present Illness: pulmonary comfortable on nasal cannula,-resp distress - Current Medication List Current Medications: Active Medications Acetaminophen (Tylenol -) 650 mg PO Q6H [facility] Stop: 05/07/17 12:29 Last Admin: 05/06/17 06:26 Dose: 650 mg Al Hydroxide/Mg Hydroxide (Mylanta Suspension -) 30 ml PO Q6HPO [facility] Last Admin: 05/06/17 06:26 Dose: Not Given Albuterol/Ipratropium (Duoneb -) 1 amp NEB Q2H PRN PRN Reason: SHORTNESS OF BREATH Last Admin: 05/06/17 01:45 Dose: 1 amp Albuterol/Ipratropium (Duoneb -) 1 amp NEB RQID [facility] Last Admin: 05/06/17 11:04 Dose: 1 amp Apixaban (Eliquis -) 5 mg PO BID [facility] Last Admin: 05/06/17 09:05 Dose: 5 mg Atorvastatin Calcium (Lipitor -) 10 mg PO HS [facility] Last Admin: 05/05/17 21:17 Dose: 10 mg Docusate Sodium (Colace -) 100 mg PO DAILY [facility] Last Admin: 05/06/17 09:05 Dose: 100 mg Ferrous Sulfate (Feosol -) 325 mg PO DAILY [facility] Last Admin: 05/06/17 09:04 Dose: 325 mg Furosemide (Lasix Injection -) 40 mg IVPUSH BID@0600,1400 [facility] Last Admin: 05/06/17 06:26 Dose: 40 mg Hydromorphone HCl (Dilaudid Injection -) 2 mg IVPB Q6H PRN PRN Reason: pain Last Admin: 05/04/17 20:48 Dose: 2 mg Aztreonam 2 gm/ Dextrose 100 mls @ 100 mls/hr IV Q8H-IV [facility] PRN Reason: Protocol Last Admin: 05/06/17 09:03 Dose: 100 mls/hr Insulin Aspart (Novolog Vial Sliding Scale -) 1 vial SQ ACHS [facility] PRN Reason: Protocol Lisinopril (Prinivil) 10 mg PO DAILY [facility] Last Admin: 05/06/17 09:05 Dose: 10 mg Methylprednisolone Sodium Succinate (Solu-Medrol -) 40 mg IVPUSH Q6H-IV [facility] Last Admin: 05/06/17 08:48 Dose: 40 mg Montelukast Sodium (Singulair -) 10 mg PO HS [facility] Last Admin: 05/05/17 21:17 Dose: 10 mg Morphine Sulfate (Ms Contin -) 15 mg PO BID [facility] Last Admin: 05/06/17 09:03 Dose: 15 mg Oseltamivir Phosphate (Tamiflu -) 75 mg PO BID [facility] Stop: 05/08/17 09:59 Last Admin: 05/06/17 09:06 Dose: 75 mg Pregabalin (Lyrica -) 75 mg PO BID [facility] Last Admin: 05/06/17 09:05 Dose: 75 mg Ranitidine HCl (Zantac -) 150 mg PO BID [facility] Last Admin: 05/06/17 09:04 Dose: 150 mg - Objective Vital Signs: Vital Signs Temperature 98.0 F 05/06/17 10:00 Pulse Rate 101 H 05/06/17 10:00 Respiratory Rate 18 05/06/17 10:00 Blood Pressure 107/75 05/06/17 10:00 O2 Sat by Pulse Oximetry (%) 99 05/06/17 10:00 Constitutional: Yes: Well Nourished, Calm Eyes: Yes: WNL HENT: Yes: WNL Neck: Yes: WNL Cardiovascular: Yes: Regular Rate and Rhythm, S1, S2 Respiratory: Yes: Rales (maribel crackles) Gastrointestinal: Yes: Normal Bowel Sounds, Soft Extremities: Yes: WNL Edema: Yes Labs: CBC, BMP 05/06/17 08:18 05/06/17 08:18 INR, PTT INR 1.36 (0.82-1.09) H 05/02/17 16:50 Assessment/Plan Problem List - Problems (1) Influenza A Code(s): J10.1 - FLU DUE TO OTH IDENT INFLUENZA VIRUS W OTH RESP MANIFEST (2) Pneumonia Code(s): J18.9 - PNEUMONIA, UNSPECIFIED ORGANISM Qualifiers: Pneumonia type: due to unspecified organism Laterality: left Lung location: unspecified part of lung Qualified Code(s): J18.9 - Pneumonia, unspecified organism (3) Acute on chronic respiratory failure with hypoxia and hypercapnia Code(s): J96.21 - ACUTE AND CHRONIC RESPIRATORY FAILURE WITH HYPOXIA; J96.22 - ACUTE AND CHRONIC RESPIRATORY FAILURE WITH HYPERCAPNIA (4) Allergy to multiple antibiotics Code(s): Z88.1 - ALLERGY STATUS TO OTHER ANTIBIOTIC AGENTS STATUS (5) CHF (congestive heart failure) Code(s): I50.9 - HEART FAILURE, UNSPECIFIED Qualifiers: Congestive heart failure type: unspecified Congestive heart failure chronicity: unspecified Qualified Code(s): I50.9 - Heart failure, unspecified (6) ICD (implantable cardioverter-defibrillator), dual, in situ Code(s): Z95.810 - PRESENCE OF AUTOMATIC (IMPLANTABLE) CARDIAC DEFIBRILLATOR (7) Obstructive sleep apnea Code(s): G47.33 - OBSTRUCTIVE SLEEP APNEA (ADULT) (PEDIATRIC) (8) SOB (shortness of breath) Code(s): R06.02 - SHORTNESS OF BREATH (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 (10) Sarcoidosis of lung Code(s): D86.0 - SARCOIDOSIS OF LUNG (11) Asthma Code(s): J45.909 - UNSPECIFIED ASTHMA, UNCOMPLICATED (12) Diastolic CHF Code(s): I50.30 - UNSPECIFIED DIASTOLIC (CONGESTIVE) HEART FAILURE (13) IDDM (insulin dependent diabetes mellitus) Code(s): E11.9 - TYPE 2 DIABETES MELLITUS WITHOUT COMPLICATIONS; Z79.4 - CORRECTION (CURRENT) USE OF INSULIN (14) UTI (urinary tract infection) Code(s): N39.0 - URINARY TRACT INFECTION, SITE NOT SPECIFIED Qualifiers: Urinary tract infection type: site unspecified Hematuria presence: with hematuria Qualified Code(s): N39.0 - Urinary tract infection, site not specified; R31.9 - Hematuria, unspecified; R31.9 - Hematuria, unspecified Assessment/Plan ABX Tamiflu BD TX Medrol taper O2 to maintain saturation NIPPV QHS and PRN Angel EUBANKS
--- NOTE | 2017-05-06 12:51 | PN ---
Progress Note (short form) - Note Progress Note: Pt found asleep in bed. Nasal O2 in place with Holter monitor and PICC Line. Pt states that she feels terrible and has multiple aches. Reports last BM was 3 days ago.NAD. Vital Signs Period Temp Pulse Resp BP Sys/Londono Pulse Ox Last 24 Hr 97.5 F-98.7 F 96-122 18-22 107-138/62-84 98-99 CBC, BMP 05/06/17 08:18 05/06/17 08:18 HEENT- Normocephalic Neck-supple Lungs- Scattered Rhonchi Heart- S1/S2 Abd- soft, NT, Pos BS x4 Ext- Neg b/l LE edema Current Medications Generic Name Dose Route Start Last Admin Trade Name Freq PRN Reason Stop Dose Admin Acetaminophen 650 mg 05/04/17 12:30 05/06/17 06:26 Tylenol - PO 05/07/17 12:29 650 mg Q6H EYAL Administration Al Hydroxide/Mg Hydroxide 30 ml 05/03/17 00:00 05/06/17 12:13 Mylanta Suspension - PO Not Given Q6HPO EYAL Albuterol/Ipratropium 1 amp 05/04/17 12:24 05/06/17 01:45 Duoneb - NEB 1 amp Q2H PRN Administration SHORTNESS OF BREATH Albuterol/Ipratropium 1 amp 05/04/17 16:00 05/06/17 11:04 Duoneb - NEB 1 amp RQID EYAL Administration Apixaban 5 mg 05/03/17 10:00 05/06/17 09:05 Eliquis - PO 5 mg BID EYAL Administration Atorvastatin Calcium 10 mg 05/03/17 22:00 05/05/17 21:17 Lipitor - PO 10 mg HS EYAL Administration Docusate Sodium 100 mg 05/03/17 10:00 05/06/17 09:05 Colace - PO 100 mg DAILY EYAL Administration Ferrous Sulfate 325 mg 05/03/17 10:00 05/06/17 09:04 Feosol - PO 325 mg DAILY EYAL Administration Furosemide 40 mg 05/03/17 06:00 05/06/17 06:26 Lasix Injection - IVPUSH 40 mg BID@0600,1400 EYAL Administration Hydromorphone HCl 2 mg 05/03/17 11:25 05/04/17 20:48 Dilaudid Injection - IVPB 2 mg Q6H PRN Administration pain Aztreonam 2 gm/ Dextrose 100 mls @ 100 mls/hr 05/03/17 10:00 05/06/17 09:03 IV 100 mls/hr Q8H-IV EYAL Administration Protocol Insulin Aspart 1 vial 05/06/17 16:30 Novolog Vial Sliding Scale - SQ ACHS EYAL Protocol Lisinopril 10 mg 05/03/17 10:00 05/06/17 09:05 Prinivil PO 10 mg DAILY EYAL Administration Methylprednisolone Sodium Succinate 40 mg 05/05/17 15:00 05/06/17 08:48 Solu-Medrol - IVPUSH 40 mg Q6H-IV EYAL Administration Montelukast Sodium 10 mg 05/03/17 22:00 05/05/17 21:17 Singulair - PO 10 mg HS EYAL Administration Morphine Sulfate 15 mg 05/03/17 11:30 05/06/17 09:03 Ms Contin - PO 15 mg BID EYAL Administration Oseltamivir Phosphate 75 mg 05/03/17 10:00 05/06/17 09:06 Tamiflu - PO 05/08/17 09:59 75 mg BID EYAL Administration Pregabalin 75 mg 05/03/17 22:00 05/06/17 09:05 Lyrica - PO 75 mg BID EYAL Administration Ranitidine HCl 150 mg 05/03/17 10:00 05/06/17 09:04 Zantac - PO 150 mg BID EYAL Administration Plan: #Opioid Induced Constipation Start Miralax 17 GM PRN # Influenza Continue Tamiflu 75 mg BID general body aches tylenol q 6H continue Steriods to Q 6H patient with multiple abx allergies # UTI consult emperic Aztreonam appreciate ID # 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 Flu + Plan IV steroids / neb/ O2 / bipap / abx per ID panculture awaiting results # Cardiac Cardiac Sarcoid -- hx of VT - AICD chronic diastolic HF ( echo NL EF) no signs of fluid overload steroid dependent # HTN continue meds # DM neuropathy resume meds insulin sliding scale as Steroids will inc FS # hx of DVt continue with NOAC # chronic back pain resume MS Contin 15 bid Dilaudid IV q4 prn patient states tolerates these meds Problem List - Problems (1) Influenza A Code(s): J10.1 - FLU DUE TO OTH IDENT INFLUENZA VIRUS W OTH RESP MANIFEST (2) Pneumonia Code(s): J18.9 - PNEUMONIA, UNSPECIFIED ORGANISM Qualifiers: Pneumonia type: due to unspecified organism Laterality: left Lung location: unspecified part of lung Qualified Code(s): J18.9 - Pneumonia, unspecified organism (3) Abdominal pain Code(s): R10.9 - UNSPECIFIED ABDOMINAL PAIN (4) Acute on chronic respiratory failure with hypoxia and hypercapnia Code(s): J96.21 - ACUTE AND CHRONIC RESPIRATORY FAILURE WITH HYPOXIA; J96.22 - ACUTE AND CHRONIC RESPIRATORY FAILURE WITH HYPERCAPNIA (5) CHF (congestive heart failure) Code(s): I50.9 - HEART FAILURE, UNSPECIFIED Qualifiers: Congestive heart failure type: unspecified Congestive heart failure chronicity: unspecified Qualified Code(s): I50.9 - Heart failure, unspecified (6) COPD (chronic obstructive pulmonary disease) Code(s): J44.9 - CHRONIC OBSTRUCTIVE PULMONARY DISEASE, UNSPECIFIED (7) Chronic low back pain Code(s): M54.5 - LOW BACK PAIN; G89.29 - OTHER CHRONIC PAIN (8) Hypoxia Code(s): R09.02 - HYPOXEMIA (9) ICD (implantable cardioverter-defibrillator), dual, in situ Code(s): Z95.810 - PRESENCE OF AUTOMATIC (IMPLANTABLE) CARDIAC DEFIBRILLATOR (10) Lung infiltrate Code(s): R91.8 - OTHER NONSPECIFIC ABNORMAL FINDING OF LUNG FIELD (11) Obstructive sleep apnea Code(s): G47.33 - OBSTRUCTIVE SLEEP APNEA (ADULT) (PEDIATRIC) (12) Respiratory failure Code(s): J96.90 - RESPIRATORY FAILURE, UNSP, UNSP W HYPOXIA OR HYPERCAPNIA (13) SOB (shortness of breath) Code(s): R06.02 - SHORTNESS OF BREATH (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
--- NOTE | 2017-05-06 14:12 | PN ---
Progress Note, Physician Chief Complaint: Appears less tachypneic at rest Continues to C/O cough, generalized bodyache Temps down, afebrile BC no growth Urine c/s Enterobacter Vancomycin level noted - Current Medication List Current Medications: Active Medications Acetaminophen (Tylenol -) 650 mg PO Q6H [facility] Stop: 05/07/17 12:29 Last Admin: 05/06/17 13:27 Dose: 650 mg Al Hydroxide/Mg Hydroxide (Mylanta Suspension -) 30 ml PO Q6HPO [facility] Last Admin: 05/06/17 12:13 Dose: Not Given Albuterol/Ipratropium (Duoneb -) 1 amp NEB Q2H PRN PRN Reason: SHORTNESS OF BREATH Last Admin: 05/06/17 01:45 Dose: 1 amp Albuterol/Ipratropium (Duoneb -) 1 amp NEB RQID [facility] Last Admin: 05/06/17 11:04 Dose: 1 amp Apixaban (Eliquis -) 5 mg PO BID [facility] Last Admin: 05/06/17 09:05 Dose: 5 mg Atorvastatin Calcium (Lipitor -) 10 mg PO HS [facility] Last Admin: 05/05/17 21:17 Dose: 10 mg Docusate Sodium (Colace -) 100 mg PO DAILY [facility] Last Admin: 05/06/17 09:05 Dose: 100 mg Ferrous Sulfate (Feosol -) 325 mg PO DAILY [facility] Last Admin: 05/06/17 09:04 Dose: 325 mg Furosemide (Lasix Injection -) 40 mg IVPUSH BID@0600,1400 [facility] Last Admin: 05/06/17 13:30 Dose: 40 mg Hydromorphone HCl (Dilaudid Injection -) 2 mg IVPB Q6H PRN PRN Reason: pain Last Admin: 05/04/17 20:48 Dose: 2 mg Aztreonam 2 gm/ Dextrose 100 mls @ 100 mls/hr IV Q8H-IV EYAL PRN Reason: Protocol Last Admin: 05/06/17 09:03 Dose: 100 mls/hr Insulin Aspart (Novolog Vial Sliding Scale -) 1 vial SQ ACHS [facility] PRN Reason: Protocol Lisinopril (Prinivil) 10 mg PO DAILY [facility] Last Admin: 05/06/17 09:05 Dose: 10 mg Methylprednisolone Sodium Succinate (Solu-Medrol -) 40 mg IVPUSH Q6H-IV [facility] Last Admin: 05/06/17 14:00 Dose: 40 mg Montelukast Sodium (Singulair -) 10 mg PO HS [facility] Last Admin: 05/05/17 21:17 Dose: 10 mg Morphine Sulfate (Ms Contin -) 15 mg PO BID [facility] Last Admin: 05/06/17 09:03 Dose: 15 mg Oseltamivir Phosphate (Tamiflu -) 75 mg PO BID [facility] Stop: 05/08/17 09:59 Last Admin: 05/06/17 09:06 Dose: 75 mg Pregabalin (Lyrica -) 75 mg PO BID [facility] Last Admin: 05/06/17 09:05 Dose: 75 mg Ranitidine HCl (Zantac -) 150 mg PO BID [facility] Last Admin: 05/06/17 09:04 Dose: 150 mg - Objective Vital Signs: Vital Signs Temperature 98.0 F 05/06/17 10:00 Pulse Rate 101 H 05/06/17 10:00 Respiratory Rate 18 05/06/17 10:00 Blood Pressure 107/75 05/06/17 10:00 O2 Sat by Pulse Oximetry (%) 99 05/06/17 10:00 Constitutional: Yes: No Distress, Obese Cardiovascular: Yes: Regular Rate and Rhythm, S1, S2 Respiratory: Yes: Rhonchi, Other (crepitations at bases) Gastrointestinal: Yes: Normal Bowel Sounds, Soft, Abdomen, Obese. No: Tenderness Edema: No Labs: CBC, BMP 05/06/17 08:18 05/06/17 08:18 INR, PTT INR 1.36 (0.82-1.09) H 05/02/17 16:50 Assessment/Plan Acute influenza A Exacerbation COPD Possible pneumonia UTI- Enterobacter Major PCN allergy Continue aztreonam. Hold vancomycin (elevated trough) Tamiflu
[2017-05-06] MEDS: INSULIN SLIDING SCALE (NOVOLOG) 1 VIAL SQ SCH ×2 (17:30→21:55)
[2017-05-06] MEDS: MONTELUKAST NA 10 MG TABLET PO SCH (21:46)
[2017-05-06] MEDS: ATORVASTATIN CA 10 MG TABLET (FP) PO SCH (21:46)
[2017-05-07] MEDS: MAG HYDROX/AL HYDROX/SIMETH 355 ML ORAL.SUSP PO SCH ×5 (01:08→17:30)
[2017-05-07] MEDS: ACETAMINOPHEN 325 MG TABLET (FP) PO SCH ×3 (01:08→07:57)
[2017-05-07] MEDS: AZTREONAM 2 GM in DEXTROSE 5%-WATER - 100 ML IV SCH ×3 (01:26→17:31)
[2017-05-07] MEDS: ALBUTEROL SO4 2.5/IPRATROPIUM 0.5 INH SOL 3 ML VIAL.NEB. NEB PRN (03:13)
[2017-05-07] MEDS: methylPREDNISolone NA SUCC 40 MG/1 ML VIAL IVPUSH SCH ×3 (03:55→17:30)
[2017-05-07] MEDS: FUROSEMIDE 40 MG/4 ML INJECTABLE VIAL IVPUSH SCH ×2 (05:55→14:29)
[2017-05-07] MEDS: INSULIN SLIDING SCALE (NOVOLOG) 1 VIAL SQ SCH ×4 (06:08→22:41)
[2017-05-07 07:56] LABS: BASO % 0.4 % (0-2.0); HEMOGLOBIN 11.7 GM/dL (10.7-15.3); LYMPH % 11.7 % (8-40); MCHC 31.8 g/dl (32.0-36.0); MEAN CELL VOLUME 84.9 fl (80-96); MEAN PLT VOLUME 8.1 fl (7.5-11.1); MONO % 4.8 % (3.8-10.2); NEUT % 83.1 % (42.8-82.8); PLATELET COUNT 306 K/MM3 (134-434); RBC 4.36 M/mm3 (3.60-5.2); RDW 16.5 % (11.6-15.6); WHITE BLOOD COUNT 9.9 K/mm3 (4.0-10.0)
[2017-05-07 08:09] LABS: INR 1.2 (0.82-1.09); PROTHROMBIN TIME (PATIENT) 13.6 SEC (9.98-11.88)
[2017-05-07] MEDS: ALBUTEROL SO4 2.5/IPRATROPIUM 0.5 INH SOL 3 ML VIAL.NEB. NEB SCH ×4 (08:09→20:40)
--- NOTE | 2017-05-07 09:20 | EKG ---
Test Reason : Blood Pressure : / mmHG Vent. Rate : 117 BPM Atrial Rate : 117 BPM P-R Int : 126 ms QRS Dur : 070 ms QT Int : 314 ms P-R-T Axes : 035 -01 045 degrees QTc Int : 438 ms SINUS TACHYCARDIA WITH PREMATURE ATRIAL COMPLEXES WHEN COMPARED WITH ECG OF 02-MAY-2017 19:13, PREMATURE ATRIAL COMPLEXES ARE NOW PRESENT Confirmed by JOHNNY BRYANT MD ([id number]) on 05/07/2017 9:20:02 AM Referred By: Confirmed By:JOHNNY BRYANT MD
[2017-05-07] MEDS: PREGABALIN 75 MG CAPSULE PO SCH ×2 (10:45→21:56)
[2017-05-07] MEDS: DOCUSATE SODIUM 100 MG CAPSULE (FP) PO SCH (10:45)
[2017-05-07] MEDS: morphine SO4 SUSTAINED ACTING 15 MG TABLET.SA PO SCH ×2 (10:45→21:56)
[2017-05-07] MEDS: OSELTAMIVIR PHOSPHATE 75 MG CAPSULE PO SCH ×2 (10:46→22:41)
[2017-05-07] MEDS: FERROUS SO4 325 MG TABLET (FP) PO SCH (10:46)
[2017-05-07] MEDS: LISINOPRIL 10 MG TABLET (FP) PO SCH (10:46)
[2017-05-07] MEDS: APIXABAN 5 MG TABLET PO SCH ×2 (10:46→21:56)
[2017-05-07] MEDS: RANITIDINE HCL 150 MG TABLET (FP) PO SCH ×2 (10:46→21:56)
--- NOTE | 2017-05-07 11:39 | PN ---
Progress Note, Physician Chief Complaint: ASked for CV evaluation in this patient with frequent admissions, known to me from office. She is now re-admitted with SOB, cough and fever and has Acute Influenza A and possible PNA along with a UTI. Her pertinent PMH includes: Cardiac Sarcoidosis with ICD in place, h/o syncope, + EPS PHTN Sarcoidosis (Pulmonary) DVT Chronic diastolic CHF. Chronic back pain Hepatitis DM She has been in the hospital for several days, seen by ID and started on appropriate treatment. She currently denies chest pain, palps, edema, syncope. Telemetry shows NSR and sinus tachycardia (in the setting of steroids, nebs, infection and fever). - Current Medication List Current Medications: Active Medications Acetaminophen (Tylenol -) 650 mg PO Q6H [facility] Stop: 05/07/17 12:29 Last Admin: 05/07/17 07:57 Dose: 650 mg Al Hydroxide/Mg Hydroxide (Mylanta Suspension -) 30 ml PO Q6HPO [facility] Last Admin: 05/07/17 05:57 Dose: 30 ml Albuterol/Ipratropium (Duoneb -) 1 amp NEB Q2H PRN PRN Reason: SHORTNESS OF BREATH Last Admin: 05/07/17 03:13 Dose: 1 amp Albuterol/Ipratropium (Duoneb -) 1 amp NEB RQID [facility] Last Admin: 05/07/17 11:04 Dose: 1 amp Apixaban (Eliquis -) 5 mg PO BID [facility] Last Admin: 05/07/17 10:46 Dose: 5 mg Atorvastatin Calcium (Lipitor -) 10 mg PO HS [facility] Last Admin: 05/06/17 21:46 Dose: 10 mg Docusate Sodium (Colace -) 100 mg PO DAILY [facility] Last Admin: 05/07/17 10:45 Dose: 100 mg Ferrous Sulfate (Feosol -) 325 mg PO DAILY [facility] Last Admin: 05/07/17 10:46 Dose: 325 mg Furosemide (Lasix Injection -) 40 mg IVPUSH BID@0600,1400 [facility] Last Admin: 05/07/17 05:55 Dose: 40 mg Hydromorphone HCl (Dilaudid Injection -) 2 mg IVPB Q6H PRN PRN Reason: pain Last Admin: 05/04/17 20:48 Dose: 2 mg Aztreonam 2 gm/ Dextrose 100 mls @ 100 mls/hr IV Q8H-IV [facility] PRN Reason: Protocol Last Admin: 05/07/17 10:38 Dose: 100 mls/hr Insulin Aspart (Novolog Vial Sliding Scale -) 1 vial SQ ACHS [facility] PRN Reason: Protocol Last Admin: 05/07/17 06:08 Dose: 10 units Lisinopril (Prinivil) 10 mg PO DAILY [facility] Last Admin: 05/07/17 10:46 Dose: 10 mg Methylprednisolone Sodium Succinate (Solu-Medrol -) 40 mg IVPUSH Q6H-IV [facility] Last Admin: 05/07/17 10:45 Dose: 40 mg Montelukast Sodium (Singulair -) 10 mg PO HS [facility] Last Admin: 05/06/17 21:46 Dose: 10 mg Morphine Sulfate (Ms Contin -) 15 mg PO BID [facility] Last Admin: 05/07/17 10:45 Dose: 15 mg Oseltamivir Phosphate (Tamiflu -) 75 mg PO BID [facility] Stop: 05/08/17 09:59 Last Admin: 05/07/17 10:46 Dose: 75 mg Pregabalin (Lyrica -) 75 mg PO BID [facility] Last Admin: 05/07/17 10:45 Dose: 75 mg Ranitidine HCl (Zantac -) 150 mg PO BID [facility] Last Admin: 05/07/17 10:46 Dose: 150 mg - Objective Vital Signs: Vital Signs Temperature 97.7 F 05/07/17 05:29 Pulse Rate 97 H 05/07/17 08:09 Respiratory Rate 20 05/07/17 05:29 Blood Pressure 105/70 05/07/17 05:29 O2 Sat by Pulse Oximetry (%) 98 05/07/17 08:09 Constitutional: Yes: Calm Eyes: Yes: EOM Intact Cardiovascular: Yes: Regular Rate and Rhythm Respiratory: Yes: Rhonchi (slight decreased breath sounds at bases, no active wheezing) Gastrointestinal: Yes: Abdomen, Obese (soft and nontender) Edema: No Neurological: Yes: Alert, Oriented ...Motor Strength: WNL Labs: CBC, BMP 05/07/17 07:35 05/06/17 08:18 INR, PTT INR 1.20 (0.82-1.09) H 05/07/17 07:35 Microbiology 05/02/17 18:15 Urine - Urine Clean Catch Urine Culture - Final Enterobacter Aerogenes 05/02/17 18:15 Nasopharyngeal Swab Influenza Types A,B Antigen (SANGITA) - Final 05/02/17 18:15 Nasopharyngeal Swab - Final 05/02/17 17:35 Blood - Peripheral Venous Blood Culture - Preliminary NO GROWTH OBTAINED AFTER 96 HOURS, INCUBATION TO CONTINUE FOR 1 DAYS. 05/02/17 17:30 Blood - Peripheral Venous Blood Culture - Preliminary NO GROWTH OBTAINED AFTER 96 HOURS, INCUBATION TO CONTINUE FOR 1 DAYS. Laboratory Tests 05/06/17 05/07/17 05/07/17 08:18 07:35 07:35 WBC 9.9 Hgb 11.7 Plt Count 306 INR 1.20 H Sodium 135 L Potassium 4.1 Creatinine 1.0 Random Glucose 409 H* Magnesium 2.1 - ....Imaging X-ray: Image Reviewed EKG: Image Reviewed (Sinus tach at 117bpm with APCs) Problem List - Problems (1) Influenza A Assessment/Plan: -Continue Tamiflu as per PMD and ID Code(s): J10.1 - FLU DUE TO OTH IDENT INFLUENZA VIRUS W OTH RESP MANIFEST (2) Pneumonia Assessment/Plan: -suspected/probable: continue IV abx as per ID and Pulmonary -Also on IV steroids and nebs -Blood cultures are NGTD -Supplimental O2 Code(s): J18.9 - PNEUMONIA, UNSPECIFIED ORGANISM Qualifiers: Pneumonia type: due to unspecified organism Laterality: left Lung location: unspecified part of lung Qualified Code(s): J18.9 - Pneumonia, unspecified organism (3) UTI (urinary tract infection) Assessment/Plan: -Abx as per ID Code(s): N39.0 - URINARY TRACT INFECTION, SITE NOT SPECIFIED Qualifiers: Urinary tract infection type: site unspecified Hematuria presence: with hematuria Qualified Code(s): N39.0 - Urinary tract infection, site not specified; R31.9 - Hematuria, unspecified; R31.9 - Hematuria, unspecified (4) Sarcoid Assessment/Plan: -Pulmonary sarcoid, chronic -Steroid taper as per Pulmonary, supplimental O2 Code(s): D86.9 - SARCOIDOSIS, UNSPECIFIED (5) Cardiac sarcoidosis Assessment/Plan: -Cardiac MRI several years ago at [facility] showed findings c/w Sarcoid vs ARVD with + EPS after syncopal episode -ICD in place -Routine interrogations as outpatient Code(s): 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 (6) ICD (implantable cardioverter-defibrillator) in place Assessment/Plan: -As above -Routine interrogations as outpatient Code(s): Z95.810 - PRESENCE OF AUTOMATIC (IMPLANTABLE) CARDIAC DEFIBRILLATOR (7) PHT (pulmonary hypertension) Assessment/Plan: -Secondary to long standing lung dz, sarcoid -Supplimental O2 -Maintained on chronic PO Lasix for LE edema, Right sided CHF Code(s): I27.20 - PULMONARY HYPERTENSION, UNSPECIFIED (8) DVT (deep venous thrombosis) Assessment/Plan: -Continue Eliquis Code(s): I82.409 - ACUTE EMBOLISM AND THOMBOS UNSP DEEP VN UNSP LOWER EXTREMITY Qualifiers: Laterality: unspecified laterality (9) Chronic diastolic CHF (congestive heart failure) Assessment/Plan: -Chronic diastolic CHF with recent echo here confirming normal LV fxn -Non-obstx cors on cath prior to ICD -I am not sure she needs BID Lasix, seems relatively euvolemic now with no peripheral edema. She is however prone to volume overload especially when receiving IV steroids. -Can try to reduce to daily dosing, as BP is also on low side and follow her clinically for worsening volume status. Code(s): I50.32 - CHRONIC DIASTOLIC (CONGESTIVE) HEART FAILURE (10) Sinus tachycardia Assessment/Plan: -Physiologic and secondary to infection, nebs, chronic lung disease and chronic back pain; steroids also contributing -Will monitor Code(s): R00.0 - TACHYCARDIA, UNSPECIFIED
--- NOTE | 2017-05-07 12:19 | PN ---
Progress Note, Physician Chief Complaint: DRY COUGH History of Present Illness: RETURNS BACK FROM [facility] INFLU A POSITIVE - Current Medication List Current Medications: Active Medications Acetaminophen (Tylenol -) 650 mg PO Q6H [facility] Stop: 05/07/17 12:29 Last Admin: 05/07/17 07:57 Dose: 650 mg Al Hydroxide/Mg Hydroxide (Mylanta Suspension -) 30 ml PO Q6HPO [facility] Last Admin: 05/07/17 05:57 Dose: 30 ml Albuterol/Ipratropium (Duoneb -) 1 amp NEB Q2H PRN PRN Reason: SHORTNESS OF BREATH Last Admin: 05/07/17 03:13 Dose: 1 amp Albuterol/Ipratropium (Duoneb -) 1 amp NEB RQID [facility] Last Admin: 05/07/17 11:04 Dose: 1 amp Apixaban (Eliquis -) 5 mg PO BID [facility] Last Admin: 05/07/17 10:46 Dose: 5 mg Atorvastatin Calcium (Lipitor -) 10 mg PO HS [facility] Last Admin: 05/06/17 21:46 Dose: 10 mg Docusate Sodium (Colace -) 100 mg PO DAILY [facility] Last Admin: 05/07/17 10:45 Dose: 100 mg Ferrous Sulfate (Feosol -) 325 mg PO DAILY [facility] Last Admin: 05/07/17 10:46 Dose: 325 mg Furosemide (Lasix Injection -) 40 mg IVPUSH BID@0600,1400 [facility] Last Admin: 05/07/17 05:55 Dose: 40 mg Hydromorphone HCl (Dilaudid Injection -) 2 mg IVPB Q6H PRN PRN Reason: pain Last Admin: 05/04/17 20:48 Dose: 2 mg Aztreonam 2 gm/ Dextrose 100 mls @ 100 mls/hr IV Q8H-IV [facility] PRN Reason: Protocol Last Admin: 05/07/17 10:38 Dose: 100 mls/hr Insulin Aspart (Novolog Vial Sliding Scale -) 1 vial SQ ACHS [facility] PRN Reason: Protocol Last Admin: 05/07/17 06:08 Dose: 10 units Lisinopril (Prinivil) 10 mg PO DAILY [facility] Last Admin: 05/07/17 10:46 Dose: 10 mg Methylprednisolone Sodium Succinate (Solu-Medrol -) 40 mg IVPUSH Q6H-IV [facility] Last Admin: 05/07/17 10:45 Dose: 40 mg Montelukast Sodium (Singulair -) 10 mg PO HS [facility] Last Admin: 05/06/17 21:46 Dose: 10 mg Morphine Sulfate (Ms Contin -) 15 mg PO BID [facility] Last Admin: 05/07/17 10:45 Dose: 15 mg Oseltamivir Phosphate (Tamiflu -) 75 mg PO BID [facility] Stop: 05/08/17 09:59 Last Admin: 05/07/17 10:46 Dose: 75 mg Pregabalin (Lyrica -) 75 mg PO BID [facility] Last Admin: 05/07/17 10:45 Dose: 75 mg Ranitidine HCl (Zantac -) 150 mg PO BID [facility] Last Admin: 05/07/17 10:46 Dose: 150 mg - Objective Vital Signs: Vital Signs Temperature 97.7 F 05/07/17 05:29 Pulse Rate 97 H 05/07/17 08:09 Respiratory Rate 20 05/07/17 05:29 Blood Pressure 105/70 05/07/17 05:29 O2 Sat by Pulse Oximetry (%) 98 05/07/17 08:09 Constitutional: Yes: Calm Eyes: Yes: EOM Intact HENT: Yes: Normocephalic Neck: Yes: Trachea Midline Cardiovascular: Yes: Regular Rate and Rhythm, S1, S2 Respiratory: Yes: Rales (scattered bilateral) Gastrointestinal: Yes: Abdomen, Obese Edema: LLE: 1+, RLE: 1+ Neurological: Yes: Alert Labs: CBC, BMP 05/07/17 07:35 05/06/17 08:18 INR, PTT INR 1.20 (0.82-1.09) H 05/07/17 07:35 - ....Imaging Chest X-ray: Report Reviewed, Image Reviewed EKG: Report Reviewed, Image Reviewed Problem List - Problems (1) Influenza A Code(s): J10.1 - FLU DUE TO OTH IDENT INFLUENZA VIRUS W OTH RESP MANIFEST (2) Pneumonia Code(s): J18.9 - PNEUMONIA, UNSPECIFIED ORGANISM Qualifiers: Pneumonia type: due to unspecified organism Laterality: left Lung location: unspecified part of lung Qualified Code(s): J18.9 - Pneumonia, unspecified organism (3) UTI (urinary tract infection) Code(s): N39.0 - URINARY TRACT INFECTION, SITE NOT SPECIFIED Qualifiers: Urinary tract infection type: site unspecified Hematuria presence: with hematuria Qualified Code(s): N39.0 - Urinary tract infection, site not specified; R31.9 - Hematuria, unspecified; R31.9 - Hematuria, unspecified (4) Abdominal pain Code(s): R10.9 - UNSPECIFIED ABDOMINAL PAIN (5) Acute on chronic respiratory failure with hypoxia and hypercapnia Code(s): J96.21 - ACUTE AND CHRONIC RESPIRATORY FAILURE WITH HYPOXIA; J96.22 - ACUTE AND CHRONIC RESPIRATORY FAILURE WITH HYPERCAPNIA Assessment/Plan ABX per ID Tamiflu completed BD TX Medrol reduced O2 to maintain saturation NIPPV QHS and PRN Continue Eliquis Will follow Yousif DENISE MD
--- NOTE | 2017-05-07 14:09 | PN ---
Progress Note (short form) - Note Progress Note: having nose bleeds since last night no blood at this time tx with Ice / ENT called discussed with grandson and patient casuse of nose bleed and risk of D/C NOAC H/H has remained stable staff reports had episode of chest discomfort last nifgt -- no associatd Sx how ever will call Cardio for eval all care discussed with patient and RN also c/o constipation add miralax / colace - she is requesting Enema Vital Signs Period Temp Pulse Resp BP Sys/Londono Pulse Ox Last 24 Hr 97.8 F-100.4 F 84-135 18-37 116-168/65-88 94-98 Vital Signs Period Temp Pulse Resp BP Sys/Londono Pulse Ox Last 24 Hr 98.2 F-98.9 F 90-122 19-22 100-132/62-80 97-99 nares dry blood visible / no active bleeding neck supple heart S1/S2 lungs scattered rhonchi / wheezing abd soft nontender ext no calf tenderenss CBC, BMP 05/07/17 07:35 05/06/17 08:18 Microbiology 05/02/17 17:35 Blood - Peripheral Venous Blood Culture - Preliminary NO GROWTH OBTAINED AFTER 96 HOURS, INCUBATION TO CONTINUE FOR 1 DAYS. 05/02/17 17:30 Blood - Peripheral Venous Blood Culture - Preliminary NO GROWTH OBTAINED AFTER 96 HOURS, INCUBATION TO CONTINUE FOR 1 DAYS. 05/02/17 18:15 Urine - Urine Clean Catch Urine Culture - Final Enterobacter Aerogenes 05/02/17 18:15 Nasopharyngeal Swab Influenza Types A,B Antigen (SANGITA) - Final 05/02/17 18:15 Nasopharyngeal Swab - Final Active Medications Al Hydroxide/Mg Hydroxide (Mylanta Suspension -) 30 ml PO Q6HPO [facility] Last Admin: 05/07/17 12:58 Dose: Not Given Albuterol/Ipratropium (Duoneb -) 1 amp NEB Q2H PRN PRN Reason: SHORTNESS OF BREATH Last Admin: 05/07/17 03:13 Dose: 1 amp Albuterol/Ipratropium (Duoneb -) 1 amp NEB RQID [facility] Last Admin: 05/07/17 11:04 Dose: 1 amp Apixaban (Eliquis -) 5 mg PO BID [facility] Last Admin: 05/07/17 10:46 Dose: 5 mg Atorvastatin Calcium (Lipitor -) 10 mg PO HS [facility] Last Admin: 05/06/17 21:46 Dose: 10 mg Docusate Sodium (Colace -) 100 mg PO DAILY [facility] Last Admin: 05/07/17 10:45 Dose: 100 mg Ferrous Sulfate (Feosol -) 325 mg PO DAILY [facility] Last Admin: 05/07/17 10:46 Dose: 325 mg Furosemide (Lasix Injection -) 40 mg IVPUSH BID@0600,1400 [facility] Last Admin: 05/07/17 05:55 Dose: 40 mg Hydromorphone HCl (Dilaudid Injection -) 2 mg IVPB Q6H PRN PRN Reason: pain Last Admin: 05/04/17 20:48 Dose: 2 mg Aztreonam 2 gm/ Dextrose 100 mls @ 100 mls/hr IV Q8H-IV [facility] PRN Reason: Protocol Last Admin: 05/07/17 10:38 Dose: 100 mls/hr Insulin Aspart (Novolog Vial Sliding Scale -) 1 vial SQ ACHS [facility] PRN Reason: Protocol Last Admin: 05/07/17 12:58 Dose: 8 units Lisinopril (Prinivil) 10 mg PO DAILY [facility] Last Admin: 05/07/17 10:46 Dose: 10 mg Methylprednisolone Sodium Succinate (Solu-Medrol -) 20 mg IVPUSH Q8H-IV [facility] Montelukast Sodium (Singulair -) 10 mg PO [facility] Last Admin: 05/06/17 21:46 Dose: 10 mg Morphine Sulfate (Ms Contin -) 15 mg PO BID [facility] Last Admin: 05/07/17 10:45 Dose: 15 mg Oseltamivir Phosphate (Tamiflu -) 75 mg PO BID [facility] Stop: 05/08/17 09:59 Last Admin: 05/07/17 10:46 Dose: 75 mg Pregabalin (Lyrica -) 75 mg PO BID [facility] Last Admin: 05/07/17 10:45 Dose: 75 mg Ranitidine HCl (Zantac -) 150 mg PO BID [facility] Last Admin: 05/07/17 10:46 Dose: 150 mg # nose bleeds possibly due to dry mucus membrane/ self inflicted ? bloody sputum 2/2 to post nasal drip from nose bleed mucus is actually clear # chest pain / no associated sx extensive cardiac hx cardio consult # + flu oseltamivir general body aches / increased wheezing tylenol q 6H and inc nebulizer frequency discuss changes with patient and with RN will increase Steriods to Q 6H patient with multiple abx allergies # UTI consult emperic Aztreonam appreciate ID # 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 Flu + Plan IV steroids / neb/ O2 / bipap / abx per ID panculture awaiting results # Cardiac Cardiac Sarcoid -- hx of VT - AICD chronic diastolic HF ( echo NL EF) no signs of fluid overload steroid dependant # HTN continue meds # DM neuropathy resume meds sliding scale as Steroids will inc FS # hx of DVt continue with NOAC # chronic back pain resume MScontin 15 bid Dilaudid IV q4 prn patient states tolerates these meds Problem List - Problems (1) Influenza A Code(s): J10.1 - FLU DUE TO OTH IDENT INFLUENZA VIRUS W OTH RESP MANIFEST (2) Pneumonia Code(s): J18.9 - PNEUMONIA, UNSPECIFIED ORGANISM Qualifiers: Pneumonia type: due to unspecified organism Laterality: left Lung location: unspecified part of lung Qualified Code(s): J18.9 - Pneumonia, unspecified organism (3) Abdominal pain Code(s): R10.9 - UNSPECIFIED ABDOMINAL PAIN (4) Acute on chronic respiratory failure with hypoxia and hypercapnia Code(s): J96.21 - ACUTE AND CHRONIC RESPIRATORY FAILURE WITH HYPOXIA; J96.22 - ACUTE AND CHRONIC RESPIRATORY FAILURE WITH HYPERCAPNIA (5) CHF (congestive heart failure) Code(s): I50.9 - HEART FAILURE, UNSPECIFIED Qualifiers: Congestive heart failure type: unspecified Congestive heart failure chronicity: unspecified Qualified Code(s): I50.9 - Heart failure, unspecified (6) COPD (chronic obstructive pulmonary disease) Code(s): J44.9 - CHRONIC OBSTRUCTIVE PULMONARY DISEASE, UNSPECIFIED (7) Chronic low back pain Code(s): M54.5 - LOW BACK PAIN; G89.29 - OTHER CHRONIC PAIN (8) Hypoxia Code(s): R09.02 - HYPOXEMIA (9) ICD (implantable cardioverter-defibrillator), dual, in situ Code(s): Z95.810 - PRESENCE OF AUTOMATIC (IMPLANTABLE) CARDIAC DEFIBRILLATOR (10) Lung infiltrate Code(s): R91.8 - OTHER NONSPECIFIC ABNORMAL FINDING OF LUNG FIELD (11) Obstructive sleep apnea Code(s): G47.33 - OBSTRUCTIVE SLEEP APNEA (ADULT) (PEDIATRIC) (12) Respiratory failure Code(s): J96.90 - RESPIRATORY FAILURE, UNSP, UNSP W HYPOXIA OR HYPERCAPNIA (13) SOB (shortness of breath) Code(s): R06.02 - SHORTNESS OF BREATH (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
--- NOTE | 2017-05-07 15:25 | PN ---
Progress Note, Physician Chief Complaint: Anxious about constipation Appears slightly dyspneic at rest. No cough noted. Temps down, afebrile BC no growth Urine c/s Enterobacter - Current Medication List Current Medications: Active Medications Al Hydroxide/Mg Hydroxide (Mylanta Suspension -) 30 ml PO Q6HPO [facility] Last Admin: 05/07/17 12:58 Dose: Not Given Albuterol/Ipratropium (Duoneb -) 1 amp NEB Q2H PRN PRN Reason: SHORTNESS OF BREATH Last Admin: 05/07/17 03:13 Dose: 1 amp Albuterol/Ipratropium (Duoneb -) 1 amp NEB RQID [facility] Last Admin: 05/07/17 11:04 Dose: 1 amp Apixaban (Eliquis -) 5 mg PO BID [facility] Last Admin: 05/07/17 10:46 Dose: 5 mg Atorvastatin Calcium (Lipitor -) 10 mg PO HS [facility] Last Admin: 05/06/17 21:46 Dose: 10 mg Docusate Sodium (Colace -) 100 mg PO DAILY [facility] Last Admin: 05/07/17 10:45 Dose: 100 mg Ferrous Sulfate (Feosol -) 325 mg PO DAILY [facility] Last Admin: 05/07/17 10:46 Dose: 325 mg Furosemide (Lasix Injection -) 40 mg IVPUSH BID@0600,1400 [facility] Last Admin: 05/07/17 14:29 Dose: 40 mg Hydromorphone HCl (Dilaudid Injection -) 2 mg IVPB Q6H PRN PRN Reason: pain Last Admin: 05/04/17 20:48 Dose: 2 mg Aztreonam 2 gm/ Dextrose 100 mls @ 100 mls/hr IV Q8H-IV [facility] PRN Reason: Protocol Last Admin: 05/07/17 10:38 Dose: 100 mls/hr Insulin Aspart (Novolog Vial Sliding Scale -) 1 vial SQ ACHS [facility] PRN Reason: Protocol Last Admin: 05/07/17 12:58 Dose: 8 units Lisinopril (Prinivil) 10 mg PO DAILY [facility] Last Admin: 05/07/17 10:46 Dose: 10 mg Methylprednisolone Sodium Succinate (Solu-Medrol -) 20 mg IVPUSH Q8H-IV [facility] Montelukast Sodium (Singulair -) 10 mg PO [facility] Last Admin: 05/06/17 21:46 Dose: 10 mg Morphine Sulfate (Ms Contin -) 15 mg PO BID [facility] Last Admin: 05/07/17 10:45 Dose: 15 mg Oseltamivir Phosphate (Tamiflu -) 75 mg PO BID [facility] Stop: 05/08/17 09:59 Last Admin: 05/07/17 10:46 Dose: 75 mg Pregabalin (Lyrica -) 75 mg PO BID [facility] Last Admin: 05/07/17 10:45 Dose: 75 mg Ranitidine HCl (Zantac -) 150 mg PO BID [facility] Last Admin: 05/07/17 10:46 Dose: 150 mg - Objective Vital Signs: Vital Signs Temperature 98.3 F 05/07/17 14:00 Pulse Rate 100 H 05/07/17 14:00 Respiratory Rate 20 05/07/17 10:00 Blood Pressure 132/74 05/07/17 14:00 O2 Sat by Pulse Oximetry (%) 98 05/07/17 10:00 Constitutional: Yes: No Distress Eyes: Yes: Conjunctiva Clear Cardiovascular: Yes: Regular Rate and Rhythm, S1, S2 Respiratory: Yes: Diminished Gastrointestinal: Yes: Normal Bowel Sounds, Soft. No: Tenderness Labs: CBC, BMP 05/07/17 07:35 05/06/17 08:18 INR, PTT INR 1.20 (0.82-1.09) H 05/07/17 07:35 Assessment/Plan Acute influenza A Exacerbation COPD Possible pneumonia UTI- Enterobacter Major PCN allergy Continue aztreonam / vancomycin additional 24hr, then observe off Tamiflu- complete 5d course
[2017-05-07] MEDS ORDERED: VANCOMYCIN 1,000 MG in DEXTROSE 5%-WATER - 250 ML IVPB SCH (15:30)
[2017-05-07] MEDS: LACTULOSE 20 GM/30 ML UDC (FOR ORAL USE ONLY) PO PRN (17:34)
--- NOTE | 2017-05-07 18:51 | CON.ENT ---
Consult Consult Specialty:: ENT Referred by:: Dr. Fuchs Reason for Consultation:: nasal bleeding - History of Present Illness Chief Complaint: nasal bleeding History of Present Illness: 62 yo F with influenza nasal bleeding yesterday hx intermittent nasal bleeding outpatient care with Dr. Demarco known nasal septal perforation - History Source History Provided By: Patient, Medical Record Limitations to Obtaining History: No Limitations - Past Medical History Cardio/Vascular: Yes: CHF (likely normal LVEF on ECHO this admission), Deep Vein Thrombosis, HTN, Pulmonary Hypertension, Other (Sarcoidosis with cardiac involvement and history of VT s/p ICD) Pulmonary: Yes: Asthma, COPD, O2 Dependent, Previously Intubated, Pulmonary Fibrosis, Sleep Apnea, Other (Sarcoidosis with cardiac involvement) Gastrointestinal: Yes: GERD, Other (hepatitis C) Hepatobiliary: Yes: Hepatitis C ...: No Infectious Disease: Yes: Other (HEP C) Musculoskeletal: Yes: Chronic low back pain (spinal cord stimulator) Rheumatology: Yes: Sarcoidosis (cardiac and pulmonary) Endocrine: Yes: Diabetes Mellitus Additional Medical History: in wheelchair after accident many years ago. Spinal cord stimulator. Multiple drug allergies. History of Ferrer José syndrome - Past Surgical History Past Surgical History: Yes: AICD, Laminectomy, Permanent Pacemaker (ICD. ) - Alcohol/Substance Use Hx Alcohol Use: No - Smoking History Smoking history: Unknown if ever smoked Have you smoked in the past 12 months: No Aproximately how many cigarettes per day: 0 - Social History ADL: Support Services History of Recent Travel: No Home Medications - Allergies Allergies/Adverse Reactions: Allergies Allergy/AdvReac Type Severity Reaction Status Date / Time medroxyprogesterone acetate Allergy Severe stepehns Verified 05/02/17 17:24 [From Depo-Provera] josé syndrome amoxicillin trihydrate Allergy Verified 05/02/17 17:24 [From Augmentin] aspirin Allergy Verified 05/02/17 17:24 azithromycin [From Zithromax] Allergy Dewey Verified 05/02/17 17:24 José syndrome ciprofloxacin HCl Allergy Verified 05/02/17 17:24 [From Cipro] codeine [Codeine] Allergy Verified 05/02/17 17:24 Iodinated Contrast- Oral and Allergy Verified 05/02/17 17:24 IV Dye [IV Dye, Iodine Containing Contrast ] ketorolac tromethamine Allergy Verified 05/02/17 17:24 [From Toradol] levofloxacin [From Levaquin] Allergy Verified 05/02/17 17:24 metronidazole [From Flagyl] Allergy Verified 05/02/17 17:24 nalbuphine HCl [From Nubain] Allergy CYANOSIS Verified 05/02/17 17:24 potassium clavulanate Allergy Verified 05/02/17 17:24 [From Augmentin] Shellfish Allergy Verified 05/02/17 17:24 sulfamethoxazole Allergy Verified 05/02/17 17:24 [From Bactrim] trimethoprim [From Bactrim] Allergy Verified 05/02/17 17:24 ivp dye Allergy Severe Swelling Uncoded 05/02/17 17:24 - Home Medications Home Medications: Ambulatory Orders Albuterol 2.5/Ipratropium 0.5 [Duoneb -] 1 neb NEB TID 05/02/17 Apixaban [Eliquis -] 5 mg PO HS 05/02/17 Atorvastatin Ca [Lipitor] 10 mg PO HS 05/02/17 Calcium Carbonate 600 mg PO DAILY 05/02/17 Collagenase Clostridium Hist. [Santyl -] 1 applic TP DAILY 05/02/17 Docusate Sodium [Colace -] 100 mg PO HS 05/02/17 Ferrous Sulfate 325 mg PO HS 05/02/17 Furosemide 20 mg PO DAILY 05/02/17 Insulin (LOG) Aspart [NovoLOG -] 0 unit SQ DAILY 05/02/17 Insulin (Levemir) [Levemir Vial] 0 units SQ BID 05/02/17 Ipratropium/Albuterol Sulfate [Iprat-Albut 0.5-3(2.5) mg/3 ml] 3 ml IH TID 05/02 Lisinopril 10 mg PO DAILY 05/02/17 Mag Hydrox/Al Hydrox/Simeth [Mylanta Oral Suspension -] 0 ml PO DAILY 05/02/17 Montelukast Na [Singulair -] 10 mg PO HS 05/02/17 Prednisone [Deltasone -] 20 mg PO ASDIR 05/02/17 Pregabalin [Lyrica -] 75 mg PO DAILY 05/02/17 Ranitidine HCl 150 mg PO DAILY 05/02/17 Sennosides [Senna] 1 tab PO HS 05/02/17 Mirtazapine 15 mg PO DAILY 01/22/18 Family Disease History - Family Disease History Family Disease History: Other: Mother (3 CVAs, the first in her 60s) Physical Exam-ENT Vital Signs: Vital Signs Temperature 98.3 F 05/07/17 14:00 Pulse Rate 100 H 05/07/17 14:00 Respiratory Rate 20 05/07/17 10:00 Blood Pressure 132/74 05/07/17 14:00 O2 Sat by Pulse Oximetry (%) 98 05/07/17 10:00 Constitutional: Yes: No Distress Head: Yes: WNL Face: Yes: WNL Eyes: Yes: WNL Nose: Yes: Septum Perforated, Other (dry blood bilateral nasal cavities, Large nasal septal perforation, sl crusting, no active bleeding) Nasal Passage: Yes: Other (dry blood, no active bleeding) Oral/Pharynx: Yes: WNL (no blood) Outer Ear: Yes: WNL Problem List - Problems (1) Nasal bleeding Assessment/Plan: pt with longstanding nasal septal perforation (no prior hx nasal surgery) with acute epistaxis, now resolved dry blood present in nose, likelyl related to her perforation + dryness from indoor heat +acute illness/influenza Recommend nasal saline spray tid - ordered continue humidification of supplemental oxygen Thank you for consultation Mat Workman MD FACS Code(s): R04.0 - EPISTAXIS
[2017-05-07] MEDS: ATORVASTATIN CA 10 MG TABLET (FP) PO SCH (21:56)
[2017-05-07] MEDS: MONTELUKAST NA 10 MG TABLET PO SCH (21:56)
[2017-05-07] MEDS: SODIUM CHLORIDE NASAL SPRAY 44 ML BOTTLE NS SCH (21:59)
[2017-05-07] MEDS ORDERED: INSULIN (NOVOLOG) ASPART 100 UNITS/ML 10ML VIAL ONE (22:37)
[2017-05-08] MEDS: MAG HYDROX/AL HYDROX/SIMETH 355 ML ORAL.SUSP PO SCH ×4 (01:24→16:59)
[2017-05-08] MEDS ORDERED: PT OWN MED DRAWER 7, Y5N ONE ×3 (01:26→09:32)
[2017-05-08] MEDS: methylPREDNISolone NA SUCC 40 MG/1 ML VIAL IVPUSH SCH ×2 (01:36→09:42)
[2017-05-08] MEDS: AZTREONAM 2 GM in DEXTROSE 5%-WATER - 100 ML IV SCH ×2 (01:36→09:41)
[2017-05-08] MEDS: ALBUTEROL SO4 2.5/IPRATROPIUM 0.5 INH SOL 3 ML VIAL.NEB. NEB PRN (03:36)
[2017-05-08] MEDS: FUROSEMIDE 40 MG/4 ML INJECTABLE VIAL IVPUSH SCH ×2 (06:21→14:39)
[2017-05-08] MEDS: INSULIN SLIDING SCALE (NOVOLOG) 1 VIAL SQ SCH ×4 (06:22→23:36)
[2017-05-08] MEDS: SODIUM CHLORIDE NASAL SPRAY 44 ML BOTTLE NS SCH ×3 (06:26→22:50)
[2017-05-08] MEDS: ALBUTEROL SO4 2.5/IPRATROPIUM 0.5 INH SOL 3 ML VIAL.NEB. NEB SCH ×4 (08:48→20:50)
[2017-05-08] MEDS: APIXABAN 5 MG TABLET PO SCH ×2 (09:43→22:47)
[2017-05-08] MEDS: PREGABALIN 75 MG CAPSULE PO SCH ×2 (09:43→22:48)
[2017-05-08] MEDS: FERROUS SO4 325 MG TABLET (FP) PO SCH (09:43)
[2017-05-08] MEDS: RANITIDINE HCL 150 MG TABLET (FP) PO SCH ×2 (09:43→22:47)
[2017-05-08] MEDS: LISINOPRIL 10 MG TABLET (FP) PO SCH (09:43)
[2017-05-08] MEDS: DOCUSATE SODIUM 100 MG CAPSULE (FP) PO SCH (09:43)
--- NOTE | 2017-05-08 09:53 | PN ---
Progress Note, Physician History of Present Illness: seen and examined today in nad. states she is feeling overall better today. currently receiving nebulizer. - Current Medication List Current Medications: Active Medications Al Hydroxide/Mg Hydroxide (Mylanta Suspension -) 30 ml PO Q6HPO [facility] Last Admin: 05/08/17 06:26 Dose: 30 ml Albuterol/Ipratropium (Duoneb -) 1 amp NEB Q2H PRN PRN Reason: SHORTNESS OF BREATH Last Admin: 05/08/17 03:36 Dose: 1 amp Albuterol/Ipratropium (Duoneb -) 1 amp NEB RQID [facility] Last Admin: 05/08/17 08:48 Dose: 1 amp Apixaban (Eliquis -) 5 mg PO BID [facility] Last Admin: 05/07/17 21:56 Dose: 5 mg Atorvastatin Calcium (Lipitor -) 10 mg PO HS [facility] Last Admin: 05/07/17 21:56 Dose: 10 mg Docusate Sodium (Colace -) 100 mg PO DAILY [facility] Last Admin: 05/07/17 10:45 Dose: 100 mg Ferrous Sulfate (Feosol -) 325 mg PO DAILY [facility] Last Admin: 05/07/17 10:46 Dose: 325 mg Furosemide (Lasix Injection -) 40 mg IVPUSH BID@0600,1400 [facility] Last Admin: 05/08/17 06:21 Dose: 40 mg Hydromorphone HCl (Dilaudid Injection -) 2 mg IVPB Q6H PRN PRN Reason: pain Last Admin: 05/04/17 20:48 Dose: 2 mg Aztreonam 2 gm/ Dextrose 100 mls @ 100 mls/hr IV Q8H-IV [facility] PRN Reason: Protocol Last Admin: 05/08/17 01:36 Dose: 100 mls/hr Vancomycin HCl 1,000 mg/ (Dextrose) 250 mls @ 166.667 mls/hr IVPB Q24H [facility] Last Admin: 05/07/17 17:31 Dose: 166.667 mls/hr Insulin Aspart (Novolog Vial Sliding Scale -) 1 vial SQ ACHS [facility] PRN Reason: Protocol Last Admin: 05/08/17 06:22 Dose: 10 units Lactulose (Cephulac (Oral Use)) 20 gm PO BID PRN PRN Reason: CONSTIPATION Last Admin: 05/07/17 17:34 Dose: 20 gm Lisinopril (Prinivil) 10 mg PO DAILY [facility] Last Admin: 05/07/17 10:46 Dose: 10 mg Methylprednisolone Sodium Succinate (Solu-Medrol -) 20 mg IVPUSH Q8H-IV [facility] Last Admin: 05/08/17 01:36 Dose: 20 mg Montelukast Sodium (Singulair -) 10 mg PO HS [facility] Last Admin: 05/07/17 21:56 Dose: 10 mg Morphine Sulfate (Ms Contin -) 15 mg PO BID [facility] Last Admin: 05/07/17 21:56 Dose: 15 mg Oseltamivir Phosphate (Tamiflu -) 75 mg PO BID [facility] Stop: 05/08/17 09:59 Last Admin: 05/07/17 22:41 Dose: 75 mg Pregabalin (Lyrica -) 75 mg PO BID [facility] Last Admin: 05/07/17 21:56 Dose: 75 mg Ranitidine HCl (Zantac -) 150 mg PO BID [facility] Last Admin: 05/07/17 21:56 Dose: 150 mg Sodium Chloride ([place] Nasal [place] -) 2 spray NS TID [facility] Last Admin: 05/08/17 06:26 Dose: 2 sprays - Objective Vital Signs: Vital Signs Temperature 99.6 F 05/08/17 06:37 Pulse Rate 105 H 05/08/17 06:37 Respiratory Rate 20 05/08/17 06:37 Blood Pressure 118/71 05/08/17 06:37 O2 Sat by Pulse Oximetry (%) 97 05/08/17 00:51 Constitutional: Yes: No Distress, Calm Eyes: Yes: Conjunctiva Clear, EOM Intact, PERRL HENT: Yes: Atraumatic, Normocephalic Neck: Yes: Supple, Trachea Midline Cardiovascular: Yes: Tachycardia, S1, S2. No: Regular Rate and Rhythm, Bradycardia, Pulse Irregular, Bruit, JVD, Gallop, Murmur, Rub, S3, S4, Varicosities Respiratory: Yes: Regular, On Venti-Mask, Rhonchi. No: Rales, SOB, Wheezes Gastrointestinal: Yes: Normal Bowel Sounds, Soft. No: Distention, Tenderness Musculoskeletal: Yes: Muscle Weakness Edema: No Peripheral Pulses WNL: Yes Peripheral Pulses: Left Doralis Pedis: 2+, Right Dorsalis Pedis: 2+ Neurological: Yes: Alert, Oriented Psychiatric: Yes: Alert, Oriented Labs: CBC, BMP 05/07/17 07:35 05/06/17 08:18 INR, PTT INR 1.20 (0.82-1.09) H 05/07/17 07:35 - ....Imaging Chest X-ray: Report Reviewed, Image Reviewed EKG: Report Reviewed, Image Reviewed Other: Report Reviewed, Image Reviewed (tele-sinus tach, apcs, no sig arrhythmias, no longer on tele) Assessment/Plan SOB-flu and possible PNA superimposed on chronic lung disease-sarcoidosis, Pulm HTN, chronic diastolic CHF,chronic right sided CHF -receiving Tamiflu, Abx, steroids, supp O2 -euvolemic currently but in the past prone to volume overload when on steroids -will reduce Lasix to daily at this point and monitor for volume overload Cardiac sarcoidosis -ICD in place -Routine interrogations as outpatient H/o DVT -Continue Eliquis Sinus tachycardia -secondary to acute illness on chronic conditions -no arrhythmias on tele
[2017-05-08] MEDS: morphine SO4 SUSTAINED ACTING 15 MG TABLET.SA PO SCH ×2 (09:55→22:47)
--- NOTE | 2017-05-08 13:30 | PN ---
Progress Note, Physician Chief Complaint: DRY COUGH CONTINUES History of Present Illness: RETURNS BACK FROM [facility] INFLU A POSITIVE - Current Medication List Current Medications: Active Medications Al Hydroxide/Mg Hydroxide (Mylanta Suspension -) 30 ml PO Q6HPO [facility] Last Admin: 05/08/17 11:50 Dose: Not Given Albuterol/Ipratropium (Duoneb -) 1 amp NEB Q2H PRN PRN Reason: SHORTNESS OF BREATH Last Admin: 05/08/17 03:36 Dose: 1 amp Albuterol/Ipratropium (Duoneb -) 1 amp NEB RQID [facility] Last Admin: 05/08/17 12:22 Dose: 1 amp Apixaban (Eliquis -) 5 mg PO BID [facility] Last Admin: 05/08/17 09:43 Dose: 5 mg Atorvastatin Calcium (Lipitor -) 10 mg PO HS [facility] Last Admin: 05/07/17 21:56 Dose: 10 mg Docusate Sodium (Colace -) 100 mg PO DAILY [facility] Last Admin: 05/08/17 09:43 Dose: 100 mg Ferrous Sulfate (Feosol -) 325 mg PO DAILY [facility] Last Admin: 05/08/17 09:43 Dose: 325 mg Furosemide (Lasix Injection -) 40 mg IVPUSH BID@0600,1400 [facility] Last Admin: 05/08/17 06:21 Dose: 40 mg Hydromorphone HCl (Dilaudid Injection -) 2 mg IVPB Q6H PRN PRN Reason: pain Last Admin: 05/04/17 20:48 Dose: 2 mg Insulin Aspart (Novolog Vial Sliding Scale -) 1 vial SQ ACHS [facility] PRN Reason: Protocol Last Admin: 05/08/17 11:50 Dose: 8 units Lactulose (Cephulac (Oral Use)) 20 gm PO BID PRN PRN Reason: CONSTIPATION Last Admin: 05/07/17 17:34 Dose: 20 gm Lisinopril (Prinivil) 10 mg PO DAILY [facility] Last Admin: 05/08/17 09:43 Dose: 10 mg Methylprednisolone Sodium Succinate (Solu-Medrol -) 20 mg IVPUSH Q8H-IV [facility] Last Admin: 05/08/17 09:42 Dose: 20 mg Montelukast Sodium (Singulair -) 10 mg PO HS [facility] Last Admin: 05/07/17 21:56 Dose: 10 mg Morphine Sulfate (Ms Contin -) 15 mg PO BID [facility] Last Admin: 05/08/17 09:55 Dose: Not Given Pregabalin (Lyrica -) 75 mg PO BID [facility] Last Admin: 05/08/17 09:43 Dose: 75 mg Ranitidine HCl (Zantac -) 150 mg PO BID [facility] Last Admin: 05/08/17 09:43 Dose: 150 mg Sodium Chloride (Marin[place] Nasal [place] -) 2 spray NS TID [facility] Last Admin: 05/08/17 06:26 Dose: 2 sprays - Objective Vital Signs: Vital Signs Temperature 99.6 F 05/08/17 06:37 Pulse Rate 105 H 05/08/17 06:37 Respiratory Rate 20 05/08/17 06:37 Blood Pressure 118/71 05/08/17 06:37 O2 Sat by Pulse Oximetry (%) 97 05/08/17 00:51 Constitutional: Yes: Anxious Eyes: Yes: EOM Intact HENT: Yes: Normocephalic Neck: Yes: Trachea Midline Cardiovascular: Yes: S1, S2 Respiratory: Yes: Rhonchi Gastrointestinal: Yes: Abdomen, Obese Edema: LLE: 1+, RLE: 1+ Psychiatric: Yes: Alert Labs: CBC, BMP 05/07/17 07:35 05/06/17 08:18 INR, PTT INR 1.20 (0.82-1.09) H 05/07/17 07:35 - ....Imaging Chest X-ray: Report Reviewed, Image Reviewed EKG: Report Reviewed, Image Reviewed Problem List - Problems (1) Influenza A Code(s): J10.1 - FLU DUE TO OTH IDENT INFLUENZA VIRUS W OTH RESP MANIFEST (2) Pneumonia Code(s): J18.9 - PNEUMONIA, UNSPECIFIED ORGANISM Qualifiers: Pneumonia type: due to unspecified organism Laterality: left Lung location: unspecified part of lung Qualified Code(s): J18.9 - Pneumonia, unspecified organism (3) UTI (urinary tract infection) Code(s): N39.0 - URINARY TRACT INFECTION, SITE NOT SPECIFIED Qualifiers: Urinary tract infection type: site unspecified Hematuria presence: with hematuria Qualified Code(s): N39.0 - Urinary tract infection, site not specified; R31.9 - Hematuria, unspecified; R31.9 - Hematuria, unspecified (4) Abdominal pain Code(s): R10.9 - UNSPECIFIED ABDOMINAL PAIN (5) Acute on chronic respiratory failure with hypoxia and hypercapnia Code(s): J96.21 - ACUTE AND CHRONIC RESPIRATORY FAILURE WITH HYPOXIA; J96.22 - ACUTE AND CHRONIC RESPIRATORY FAILURE WITH HYPERCAPNIA Assessment/Plan ABX per ID Tamiflu completed BD TX Medrol changed to prednisone O2 to maintain saturation NIPPV QHS and PRN Continue Eliquis Will follow Yousif DENISE MD
[2017-05-08] MEDS: HYDROmorphone HCL CARPU-JECT 2 MG/1 ML DISP.SYRIN IVPB PRN (16:49)
--- NOTE | 2017-05-08 17:44 | PN ---
Progress Note (short form) - Note Progress Note: no further epistaxis / seen by ENT - known to them on NS spray today with large BM --feeling more comfortable C/O feeling "to dry" -- wants to stop lsix -- i will reduce current dose and follow she is agreeable Vital Signs Period Temp Pulse Resp BP Sys/Londono Pulse Ox Last 24 Hr 97.8 F-100.4 F 84-135 18-37 116-168/65-88 94-98 Vital Signs Period Temp Pulse Resp BP Sys/Londono Pulse Ox Last 24 Hr 98.2 F-98.9 F 90-122 19-22 100-132/62-80 97-99 nares no active bleeding neck supple heart S1/S2 lungs scattered rhonchi / wheezing abd soft nontender ext no calf tenderenss / no edema CBC, BMP 05/07/17 07:35 05/06/17 08:18 05/02/17 17:35 Blood - Peripheral Venous Blood Culture - Preliminary NO GROWTH OBTAINED AFTER 96 HOURS, INCUBATION TO CONTINUE FOR 1 DAYS. 05/02/17 17:30 Blood - Peripheral Venous Blood Culture - Preliminary NO GROWTH OBTAINED AFTER 96 HOURS, INCUBATION TO CONTINUE FOR 1 DAYS. 05/02/17 18:15 Urine - Urine Clean Catch Urine Culture - Final Enterobacter Aerogenes 05/02/17 18:15 Nasopharyngeal Swab Influenza Types A,B Antigen (SANGITA) - Final 05/02/17 18:15 Nasopharyngeal Swab - Final Active Medications Al Hydroxide/Mg Hydroxide (Mylanta Suspension -) 30 ml PO Q6HPO [facility] Last Admin: 05/08/17 16:59 Dose: Not Given Albuterol/Ipratropium (Duoneb -) 1 amp NEB Q2H PRN PRN Reason: SHORTNESS OF BREATH Last Admin: 05/08/17 03:36 Dose: 1 amp Albuterol/Ipratropium (Duoneb -) 1 amp NEB RQID [facility] Last Admin: 05/08/17 16:00 Dose: 1 amp Apixaban (Eliquis -) 5 mg PO BID [facility] Last Admin: 05/08/17 09:43 Dose: 5 mg Atorvastatin Calcium (Lipitor -) 10 mg PO HS [facility] Last Admin: 05/07/17 21:56 Dose: 10 mg Docusate Sodium (Colace -) 100 mg PO DAILY [facility] Last Admin: 05/08/17 09:43 Dose: 100 mg Ferrous Sulfate (Feosol -) 325 mg PO DAILY [facility] Last Admin: 05/08/17 09:43 Dose: 325 mg Furosemide (Lasix Injection -) 40 mg IVPUSH DAILY [facility] Hydromorphone HCl (Dilaudid Injection -) 2 mg IVPB Q6H PRN PRN Reason: pain Last Admin: 05/08/17 16:49 Dose: 2 mg Insulin Aspart (Novolog Vial Sliding Scale -) 1 vial SQ ACHS [facility] PRN Reason: Protocol Last Admin: 05/08/17 16:57 Dose: 12 units Lactulose (Cephulac (Oral Use)) 20 gm PO BID PRN PRN Reason: CONSTIPATION Last Admin: 05/07/17 17:34 Dose: 20 gm Lisinopril (Prinivil) 10 mg PO DAILY [facility] Last Admin: 05/08/17 09:43 Dose: 10 mg Montelukast Sodium (Singulair -) 10 mg PO HS [facility] Last Admin: 05/07/17 21:56 Dose: 10 mg Morphine Sulfate (Ms Contin -) 15 mg PO BID [facility] Last Admin: 05/08/17 09:55 Dose: Not Given Prednisone (Deltasone -) 30 mg PO DAILY [facility] Pregabalin (Lyrica -) 75 mg PO BID [facility] Last Admin: 05/08/17 09:43 Dose: 75 mg Ranitidine HCl (Zantac -) 150 mg PO BID [facility] Last Admin: 05/08/17 09:43 Dose: 150 mg Sodium Chloride ([place] Nasal [place] -) 2 spray NS TID [facility] Last Admin: 05/08/17 14:47 Dose: 2 sprays # nose bleeds possibly due to dry mucus membrane/ self inflicted ? bloody sputum 2/2 to post nasal drip from nose bleed mucus is actually clear # chest pain / no associated sx extensive cardiac hx cardio consult # constipation on miralax / colace will continue # + flu oseltamivir improved BS tylenol q 6H and inc nebulizer frequency will increase Steriods to Q 6H patient with multiple abx allergies # UTI consult emperic Aztreonam appreciate ID # 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 Flu + Plan IV steroids / neb/ O2 / bipap / abx per ID panculture awaiting results # Cardiac Cardiac Sarcoid -- hx of VT - AICD chronic diastolic HF ( echo NL EF) no signs of fluid overload steroid dependant # HTN continue meds # DM neuropathy resume meds sliding scale as Steroids will inc FS # hx of DVt continue with NOAC # chronic back pain resume MScontin 15 bid Dilaudid IV q4 prn patient states tolerates these meds Problem List - Problems (1) Influenza A Code(s): J10.1 - FLU DUE TO OTH IDENT INFLUENZA VIRUS W OTH RESP MANIFEST (2) Pneumonia Code(s): J18.9 - PNEUMONIA, UNSPECIFIED ORGANISM Qualifiers: Pneumonia type: due to unspecified organism Laterality: left Lung location: unspecified part of lung Qualified Code(s): J18.9 - Pneumonia, unspecified organism (3) Abdominal pain Code(s): R10.9 - UNSPECIFIED ABDOMINAL PAIN (4) Acute on chronic respiratory failure with hypoxia and hypercapnia Code(s): J96.21 - ACUTE AND CHRONIC RESPIRATORY FAILURE WITH HYPOXIA; J96.22 - ACUTE AND CHRONIC RESPIRATORY FAILURE WITH HYPERCAPNIA (5) CHF (congestive heart failure) Code(s): I50.9 - HEART FAILURE, UNSPECIFIED Qualifiers: Congestive heart failure type: unspecified Congestive heart failure chronicity: unspecified Qualified Code(s): I50.9 - Heart failure, unspecified (6) COPD (chronic obstructive pulmonary disease) Code(s): J44.9 - CHRONIC OBSTRUCTIVE PULMONARY DISEASE, UNSPECIFIED (7) Chronic low back pain Code(s): M54.5 - LOW BACK PAIN; G89.29 - OTHER CHRONIC PAIN (8) Hypoxia Code(s): R09.02 - HYPOXEMIA (9) ICD (implantable cardioverter-defibrillator), dual, in situ Code(s): Z95.810 - PRESENCE OF AUTOMATIC (IMPLANTABLE) CARDIAC DEFIBRILLATOR (10) Lung infiltrate Code(s): R91.8 - OTHER NONSPECIFIC ABNORMAL FINDING OF LUNG FIELD (11) Obstructive sleep apnea Code(s): G47.33 - OBSTRUCTIVE SLEEP APNEA (ADULT) (PEDIATRIC) (12) Respiratory failure Code(s): J96.90 - RESPIRATORY FAILURE, UNSP, UNSP W HYPOXIA OR HYPERCAPNIA (13) SOB (shortness of breath) Code(s): R06.02 - SHORTNESS OF BREATH (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
[2017-05-08] MEDS: ATORVASTATIN CA 10 MG TABLET (FP) PO SCH (22:47)
[2017-05-08] MEDS: MONTELUKAST NA 10 MG TABLET PO SCH (22:47)
[2017-05-08] MEDS: NYSTATIN 500,000 UNITS/5 ML SUSPENSION PO SCH (22:47)
[2017-05-09] MEDS: ALBUTEROL SO4 2.5/IPRATROPIUM 0.5 INH SOL 3 ML VIAL.NEB. NEB PRN (02:31)
[2017-05-09] MEDS: MAG HYDROX/AL HYDROX/SIMETH 355 ML ORAL.SUSP PO SCH ×4 (05:45→17:59)
[2017-05-09] MEDS: SODIUM CHLORIDE NASAL SPRAY 44 ML BOTTLE NS SCH ×3 (05:45→22:51)
[2017-05-09] MEDS: HYDROmorphone HCL CARPU-JECT 2 MG/1 ML DISP.SYRIN IVPB PRN (05:45)
[2017-05-09] MEDS: INSULIN SLIDING SCALE (NOVOLOG) 1 VIAL SQ SCH ×4 (06:19→22:51)
[2017-05-09 07:09] LABS: HEMATOCRIT 35.1 % (32.4-45.2); HEMOGLOBIN 11.1 GM/dL (10.7-15.3); MCH 26.8 pg (25.7-33.7); MCHC 31.7 g/dl (32.0-36.0); MEAN CELL VOLUME 84.6 fl (80-96); MEAN PLT VOLUME 8.3 fl (7.5-11.1); PLATELET COUNT 310 K/MM3 (134-434); RBC 4.15 M/mm3 (3.60-5.2); RDW 16.2 % (11.6-15.6); WHITE BLOOD COUNT 12.8 K/mm3 (4.0-10.0)
[2017-05-09 07:20] LABS: ANION GAP 7 (8-16); BLOOD UREA NITROGEN 48 mg/dL (7-18); CALCIUM 8.7 mg/dL (8.5-10.1); CHLORIDE 95 mmol/L (98-107); CO2 34 mmol/L (21-32); CREATININE 0.9 mg/dL (0.55-1.02); GLUCOSE,RANDOM 148 mg/dL (74-106); MAGNESIUM 2.3 mg/dL (1.8-2.4); PHOSPHOROUS 2.9 mg/dL (2.5-4.9); POTASSIUM 3.6 mmol/L (3.5-5.1); SODIUM 136 mmol/L (136-145)
[2017-05-09] MEDS: ALBUTEROL SO4 2.5/IPRATROPIUM 0.5 INH SOL 3 ML VIAL.NEB. NEB SCH ×4 (08:47→20:30)
--- NOTE | 2017-05-09 09:36 | PN ---
Progress Note, Physician History of Present Illness: seen and examined today. states she is feeling slightly better today. still has cough. no new complaints. - Current Medication List Current Medications: Active Medications Al Hydroxide/Mg Hydroxide (Mylanta Suspension -) 30 ml PO Q6HPO [facility] Last Admin: 05/09/17 05:45 Dose: 30 ml Albuterol/Ipratropium (Duoneb -) 1 amp NEB Q2H PRN PRN Reason: SHORTNESS OF BREATH Last Admin: 05/09/17 02:31 Dose: 1 amp Albuterol/Ipratropium (Duoneb -) 1 amp NEB RQID [facility] Last Admin: 05/09/17 08:47 Dose: 1 amp Apixaban (Eliquis -) 5 mg PO BID [facility] Last Admin: 05/08/17 22:47 Dose: 5 mg Atorvastatin Calcium (Lipitor -) 10 mg PO HS [facility] Last Admin: 05/08/17 22:47 Dose: 10 mg Docusate Sodium (Colace -) 100 mg PO DAILY [facility] Last Admin: 05/08/17 09:43 Dose: 100 mg Ferrous Sulfate (Feosol -) 325 mg PO DAILY [facility] Last Admin: 05/08/17 09:43 Dose: 325 mg Furosemide (Lasix Injection -) 40 mg IVPUSH DAILY [facility] Hydromorphone HCl (Dilaudid Injection -) 2 mg IVPB Q6H PRN PRN Reason: pain Last Admin: 05/09/17 05:45 Dose: 2 mg Insulin Aspart (Novolog Vial Sliding Scale -) 1 vial SQ ACHS [facility] PRN Reason: Protocol Last Admin: 05/09/17 06:19 Dose: Not Given Lactulose (Cephulac (Oral Use)) 20 gm PO BID PRN PRN Reason: CONSTIPATION Last Admin: 05/07/17 17:34 Dose: 20 gm Lisinopril (Prinivil) 10 mg PO DAILY [facility] Last Admin: 05/08/17 09:43 Dose: 10 mg Montelukast Sodium (Singulair -) 10 mg PO HS [facility] Last Admin: 05/08/17 22:47 Dose: 10 mg Morphine Sulfate (Ms Contin -) 15 mg PO BID [facility] Last Admin: 05/08/17 22:47 Dose: 15 mg Nystatin (Nystatin Oral Suspension -) 500,000 units PO QID [facility] Stop: 05/10/17 18:01 Last Admin: 05/08/17 22:47 Dose: 500,000 units Prednisone (Deltasone -) 30 mg PO DAILY [facility] Pregabalin (Lyrica -) 75 mg PO BID [facility] Last Admin: 05/08/17 22:48 Dose: 75 mg Ranitidine HCl (Zantac -) 150 mg PO BID [facility] Last Admin: 05/08/17 22:47 Dose: 150 mg Sodium Chloride ([place] Nasal [place] -) 2 spray NS TID [facility] Last Admin: 05/09/17 05:45 Dose: 2 sprays - Objective Vital Signs: Vital Signs Temperature 98.8 F 05/09/17 06:00 Pulse Rate 85 05/09/17 06:00 Respiratory Rate 19 05/09/17 06:00 Blood Pressure 98/64 05/09/17 06:00 O2 Sat by Pulse Oximetry (%) 98 05/09/17 06:00 Constitutional: Yes: No Distress, Calm Eyes: Yes: Conjunctiva Clear, EOM Intact HENT: Yes: Atraumatic, Normocephalic Neck: Yes: Supple, Trachea Midline Cardiovascular: Yes: Regular Rate and Rhythm, S1, S2. No: Bradycardia, Tachycardia, Pulse Irregular, Bruit, JVD, Gallop, Murmur, Rub, S3, S4, Varicosities Respiratory: Yes: Regular, Diminished, On Nasal O2, Rhonchi. No: Rales, SOB, Wheezes Gastrointestinal: Yes: Normal Bowel Sounds, Soft. No: Distention, Tenderness Edema: No Peripheral Pulses WNL: Yes Peripheral Pulses: Left Doralis Pedis: 2+, Right Dorsalis Pedis: 2+ Neurological: Yes: Alert, Oriented Psychiatric: Yes: Alert, Oriented Labs: CBC, BMP 05/09/17 05:05 05/09/17 05:05 INR, PTT INR 1.20 (0.82-1.09) H 05/07/17 07:35 - ....Imaging Chest X-ray: Report Reviewed, Image Reviewed EKG: Report Reviewed, Image Reviewed Other: Report Reviewed, Image Reviewed Assessment/Plan SOB-flu and possible PNA superimposed on chronic lung disease-sarcoidosis, Pulm HTN, chronic diastolic CHF,chronic right sided CHF -receiving Abx, steroids, supp O2 -euvolemic/trending towards intravascular depletion currently, prone to volume overload when on steroids in the past -Lasix reduced to daily dosing -cont to monitor volume status, bun trending up but likely in part due to steroids Cardiac sarcoidosis -ICD in place -Routine interrogations as outpatient H/o DVT -Continue Eliquis Sinus tachycardia -secondary to acute illness on chronic conditions -no arrhythmias recorded when on tele, no longer on tele
[2017-05-09 09:43] LABS: ANISOCYTOSIS 2+; PLATELET ESTIMATE NORMAL
[2017-05-09] MEDS ORDERED: FUROSEMIDE 40 MG/4 ML INJECTABLE VIAL IVPUSH SCH (10:00)
[2017-05-09] MEDS: LISINOPRIL 10 MG TABLET (FP) PO SCH (11:00)
[2017-05-09] MEDS: predniSONE 10 MG TABLET (UD) PO SCH (11:14)
[2017-05-09] MEDS: DOCUSATE SODIUM 100 MG CAPSULE (FP) PO SCH (11:14)
[2017-05-09] MEDS: APIXABAN 5 MG TABLET PO SCH ×2 (11:15→21:08)
[2017-05-09] MEDS: FERROUS SO4 325 MG TABLET (FP) PO SCH (11:15)
[2017-05-09] MEDS: RANITIDINE HCL 150 MG TABLET (FP) PO SCH ×2 (11:15→21:08)
[2017-05-09] MEDS: morphine SO4 SUSTAINED ACTING 15 MG TABLET.SA PO SCH ×2 (11:15→21:07)
[2017-05-09] MEDS: PREGABALIN 75 MG CAPSULE PO SCH ×2 (11:15→21:07)
[2017-05-09] MEDS: NYSTATIN 500,000 UNITS/5 ML SUSPENSION PO SCH ×4 (11:15→21:07)
[2017-05-09] MEDS: LACTULOSE 20 GM/30 ML UDC (FOR ORAL USE ONLY) PO PRN (11:15)
[2017-05-09] MEDS ORDERED: INSULIN (NOVOLOG) ASPART 100 UNITS/ML 10ML VIAL ONE (11:44)
[2017-05-09] MEDS ORDERED: ONDANSETRON 4 MG TABLET PO PRN (12:45)
--- NOTE | 2017-05-09 13:15 | PN ---
Progress Note, Physician Chief Complaint: DRY COUGH CONTINUES History of Present Illness: RETURNS BACK FROM [facility] INFLU A POSITIVE - Current Medication List Current Medications: Active Medications Al Hydroxide/Mg Hydroxide (Mylanta Suspension -) 30 ml PO Q6HPO [facility] Last Admin: 05/09/17 05:45 Dose: 30 ml Albuterol/Ipratropium (Duoneb -) 1 amp NEB Q2H PRN PRN Reason: SHORTNESS OF BREATH Last Admin: 05/09/17 02:31 Dose: 1 amp Albuterol/Ipratropium (Duoneb -) 1 amp NEB RQID [facility] Last Admin: 05/09/17 11:52 Dose: 1 amp Apixaban (Eliquis -) 5 mg PO BID [facility] Last Admin: 05/09/17 11:15 Dose: 5 mg Atorvastatin Calcium (Lipitor -) 10 mg PO HS [facility] Last Admin: 05/08/17 22:47 Dose: 10 mg Docusate Sodium (Colace -) 100 mg PO DAILY [facility] Last Admin: 05/09/17 11:14 Dose: 100 mg Ferrous Sulfate (Feosol -) 325 mg PO DAILY [facility] Last Admin: 05/09/17 11:15 Dose: 325 mg Furosemide (Lasix Injection -) 40 mg IVPUSH DAILY [facility] Hydromorphone HCl (Dilaudid Injection -) 2 mg IVPB Q6H PRN PRN Reason: pain Last Admin: 05/09/17 05:45 Dose: 2 mg Insulin Aspart (Novolog Vial Sliding Scale -) 1 vial SQ ACHS [facility] PRN Reason: Protocol Last Admin: 05/09/17 11:45 Dose: 8 units Lactulose (Cephulac (Oral Use)) 20 gm PO BID PRN PRN Reason: CONSTIPATION Last Admin: 05/07/17 17:34 Dose: 20 gm Lisinopril (Prinivil) 10 mg PO DAILY [facility] Last Admin: 05/08/17 09:43 Dose: 10 mg Montelukast Sodium (Singulair -) 10 mg PO HS [facility] Last Admin: 05/08/17 22:47 Dose: 10 mg Morphine Sulfate (Ms Contin -) 15 mg PO BID [facility] Last Admin: 05/09/17 11:15 Dose: 15 mg Nystatin (Nystatin Oral Suspension -) 500,000 units PO QID [facility] Stop: 05/10/17 18:01 Last Admin: 05/09/17 11:15 Dose: 500,000 units Ondansetron HCl (Zofran -) 4 mg PO Q6H PRN PRN Reason: NAUSEA Pantoprazole Sodium (Protonix -) 40 mg PO DAILY [facility] Prednisone (Deltasone -) 30 mg PO DAILY [facility] Last Admin: 05/09/17 11:14 Dose: 30 mg Pregabalin (Lyrica -) 75 mg PO BID [facility] Last Admin: 05/09/17 11:15 Dose: 75 mg Ranitidine HCl (Zantac -) 150 mg PO BID [facility] Last Admin: 05/09/17 11:15 Dose: 150 mg Sodium Chloride ([place] Nasal [place] -) 2 spray NS TID [facility] Last Admin: 05/09/17 05:45 Dose: 2 sprays - Objective Vital Signs: Vital Signs Temperature 98.8 F 05/09/17 06:00 Pulse Rate 85 05/09/17 06:00 Respiratory Rate 19 05/09/17 06:00 Blood Pressure 98/64 05/09/17 06:00 O2 Sat by Pulse Oximetry (%) 98 05/09/17 06:00 Constitutional: Yes: Calm Eyes: Yes: EOM Intact HENT: Yes: Normocephalic Neck: Yes: Trachea Midline Cardiovascular: Yes: S1, S2 Respiratory: Yes: Diminished Gastrointestinal: Yes: Soft, Abdomen, Obese Edema: LLE: Trace, RLE: Trace Neurological: Yes: Alert Labs: CBC, BMP 05/09/17 05:05 05/09/17 05:05 INR, PTT INR 1.20 (0.82-1.09) H 05/07/17 07:35 - ....Imaging Chest X-ray: Report Reviewed, Image Reviewed Problem List - Problems (1) Influenza A Code(s): J10.1 - FLU DUE TO OTH IDENT INFLUENZA VIRUS W OTH RESP MANIFEST (2) Pneumonia Code(s): J18.9 - PNEUMONIA, UNSPECIFIED ORGANISM Qualifiers: Pneumonia type: due to unspecified organism Laterality: left Lung location: unspecified part of lung Qualified Code(s): J18.9 - Pneumonia, unspecified organism (3) UTI (urinary tract infection) Code(s): N39.0 - URINARY TRACT INFECTION, SITE NOT SPECIFIED Qualifiers: Urinary tract infection type: site unspecified Hematuria presence: with hematuria Qualified Code(s): N39.0 - Urinary tract infection, site not specified; R31.9 - Hematuria, unspecified; R31.9 - Hematuria, unspecified (4) Abdominal pain Code(s): R10.9 - UNSPECIFIED ABDOMINAL PAIN (5) Acute on chronic respiratory failure with hypoxia and hypercapnia Code(s): J96.21 - ACUTE AND CHRONIC RESPIRATORY FAILURE WITH HYPOXIA; J96.22 - ACUTE AND CHRONIC RESPIRATORY FAILURE WITH HYPERCAPNIA Assessment/Plan ABX per ID /Tamiflu completed uti BD TX Medrol changed to prednisone O2 to maintain saturation NIPPV QHS and PRN Continue Eliquis Will follow Yousif DENISE MD
[2017-05-09] MEDS ORDERED: PT OWN MED DRAWER 7, Y5N ONE (14:24)
--- NOTE | 2017-05-09 14:39 | PN ---
Progress Note (short form) - Note Progress Note: feeling better completed tamiflu off IV meds resume PO steroids will request PT Vital Signs Period Temp Pulse Resp BP Sys/Londono Pulse Ox Last 24 Hr 97.9 F-98.9 F 85-103 19-20 95-115/52-69 96-98 nares no active bleeding neck supple heart S1/S2 lungs scattered rhonchi / wheezing abd soft nontender ext no calf tenderenss / no edema CBC, BMP 05/09/17 05:05 05/09/17 05:05 Microbiology 05/02/17 17:35 Blood - Peripheral Venous Blood Culture - Final NO GROWTH AFTER 5 DAYS INCUBATION 05/02/17 17:30 Blood - Peripheral Venous Blood Culture - Final NO GROWTH AFTER 5 DAYS INCUBATION 05/02/17 18:15 Urine - Urine Clean Catch Urine Culture - Final Enterobacter Aerogenes 05/02/17 18:15 Nasopharyngeal Swab Influenza Types A,B Antigen (SANGITA) - Final 05/02/17 18:15 Nasopharyngeal Swab - Final Active Medications Al Hydroxide/Mg Hydroxide (Mylanta Suspension -) 30 ml PO Q6HPO [facility] Last Admin: 05/08/17 16:59 Dose: Not Given Albuterol/Ipratropium (Duoneb -) 1 amp NEB Q2H PRN PRN Reason: SHORTNESS OF BREATH Last Admin: 05/08/17 03:36 Dose: 1 amp Albuterol/Ipratropium (Duoneb -) 1 amp NEB RQID [facility] Last Admin: 05/08/17 16:00 Dose: 1 amp Apixaban (Eliquis -) 5 mg PO BID [facility] Last Admin: 05/08/17 09:43 Dose: 5 mg Atorvastatin Calcium (Lipitor -) 10 mg PO HS [facility] Last Admin: 05/07/17 21:56 Dose: 10 mg Docusate Sodium (Colace -) 100 mg PO DAILY [facility] Last Admin: 05/08/17 09:43 Dose: 100 mg Ferrous Sulfate (Feosol -) 325 mg PO DAILY [facility] Last Admin: 05/08/17 09:43 Dose: 325 mg Furosemide (Lasix Injection -) 40 mg IVPUSH DAILY [facility] Hydromorphone HCl (Dilaudid Injection -) 2 mg IVPB Q6H PRN PRN Reason: pain Last Admin: 05/08/17 16:49 Dose: 2 mg Insulin Aspart (Novolog Vial Sliding Scale -) 1 vial SQ ACHS [facility] PRN Reason: Protocol Last Admin: 05/08/17 16:57 Dose: 12 units Lactulose (Cephulac (Oral Use)) 20 gm PO BID PRN PRN Reason: CONSTIPATION Last Admin: 05/07/17 17:34 Dose: 20 gm Lisinopril (Prinivil) 10 mg PO DAILY [facility] Last Admin: 05/08/17 09:43 Dose: 10 mg Montelukast Sodium (Singulair -) 10 mg PO HS [facility] Last Admin: 05/07/17 21:56 Dose: 10 mg Morphine Sulfate (Ms Contin -) 15 mg PO BID [facility] Last Admin: 05/08/17 09:55 Dose: Not Given Prednisone (Deltasone -) 30 mg PO DAILY [facility] Pregabalin (Lyrica -) 75 mg PO BID [facility] Last Admin: 05/08/17 09:43 Dose: 75 mg Ranitidine HCl (Zantac -) 150 mg PO BID [facility] Last Admin: 05/08/17 09:43 Dose: 150 mg Sodium Chloride ([place] Nasal [place] -) 2 spray NS TID [facility] Last Admin: 05/08/17 14:47 Dose: 2 sprays # + flu oseltamivir treatment completed afebrile d/c isolation OK to transfer back to [facility] # UTI - treated emperic Aztreonam # nose bleeds possibly due to dry mucus membrane/ self inflicted ? no further nose bleeds # constipation --resolved on miralax / colace will continue # 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 # Cardiac Cardiac Sarcoid -- hx of VT - AICD chronic diastolic HF ( echo NL EF) no signs of fluid overload steroid dependant # HTN continue meds # DM neuropathy resume meds sliding scale as Steroids will inc FS # hx of DVt continue with NOAC # chronic back pain resume MScontin 15 bid Dilaudid IV q4 prn patient states tolerates these meds Problem List - Problems (1) Influenza A Code(s): J10.1 - FLU DUE TO OTH IDENT INFLUENZA VIRUS W OTH RESP MANIFEST (2) Pneumonia Code(s): J18.9 - PNEUMONIA, UNSPECIFIED ORGANISM Qualifiers: Pneumonia type: due to unspecified organism Laterality: left Lung location: unspecified part of lung Qualified Code(s): J18.9 - Pneumonia, unspecified organism (3) Abdominal pain Code(s): R10.9 - UNSPECIFIED ABDOMINAL PAIN (4) Acute on chronic respiratory failure with hypoxia and hypercapnia Code(s): J96.21 - ACUTE AND CHRONIC RESPIRATORY FAILURE WITH HYPOXIA; J96.22 - ACUTE AND CHRONIC RESPIRATORY FAILURE WITH HYPERCAPNIA (5) CHF (congestive heart failure) Code(s): I50.9 - HEART FAILURE, UNSPECIFIED Qualifiers: Congestive heart failure type: unspecified Congestive heart failure chronicity: unspecified Qualified Code(s): I50.9 - Heart failure, unspecified (6) COPD (chronic obstructive pulmonary disease) Code(s): J44.9 - CHRONIC OBSTRUCTIVE PULMONARY DISEASE, UNSPECIFIED (7) Chronic low back pain Code(s): M54.5 - LOW BACK PAIN; G89.29 - OTHER CHRONIC PAIN (8) Hypoxia Code(s): R09.02 - HYPOXEMIA (9) ICD (implantable cardioverter-defibrillator), dual, in situ Code(s): Z95.810 - PRESENCE OF AUTOMATIC (IMPLANTABLE) CARDIAC DEFIBRILLATOR (10) Lung infiltrate Code(s): R91.8 - OTHER NONSPECIFIC ABNORMAL FINDING OF LUNG FIELD (11) Obstructive sleep apnea Code(s): G47.33 - OBSTRUCTIVE SLEEP APNEA (ADULT) (PEDIATRIC) (12) Respiratory failure Code(s): J96.90 - RESPIRATORY FAILURE, UNSP, UNSP W HYPOXIA OR HYPERCAPNIA (13) SOB (shortness of breath) Code(s): R06.02 - SHORTNESS OF BREATH (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
[2017-05-09] MEDS: FUROSEMIDE 40 MG TABLET (FP) PO SCH (15:05)
[2017-05-09] MEDS: MONTELUKAST NA 10 MG TABLET PO SCH (21:07)
[2017-05-09] MEDS: ATORVASTATIN CA 10 MG TABLET (FP) PO SCH (21:08)
[2017-05-10] MEDS: ALBUTEROL SO4 2.5/IPRATROPIUM 0.5 INH SOL 3 ML VIAL.NEB. NEB PRN (02:15)
[2017-05-10] MEDS: MAG HYDROX/AL HYDROX/SIMETH 355 ML ORAL.SUSP PO SCH ×2 (06:37)
[2017-05-10] MEDS: INSULIN SLIDING SCALE (NOVOLOG) 1 VIAL SQ SCH (06:41)
[2017-05-10] MEDS: SODIUM CHLORIDE NASAL SPRAY 44 ML BOTTLE NS SCH (06:41)
[2017-05-10] MEDS ORDERED: IPRATROPIUM BR 0.02% 0.5 MG/2.5 ML VIAL.NEB. NEB ONE (07:24)
[2017-05-10] MEDS: ALBUTEROL SO4 2.5/IPRATROPIUM 0.5 INH SOL 3 ML VIAL.NEB. NEB SCH ×2 (08:01→11:37)
[2017-05-10] MEDS ORDERED: PANTOPRAZOLE 40 MG TABLET (FP) PO SCH (10:00)
[2017-05-10] MEDS: RANITIDINE HCL 150 MG TABLET (FP) PO SCH (10:07)
[2017-05-10] MEDS: FUROSEMIDE 40 MG TABLET (FP) PO SCH (10:07)
[2017-05-10] MEDS: LISINOPRIL 10 MG TABLET (FP) PO SCH (10:07)
[2017-05-10] MEDS: NYSTATIN 500,000 UNITS/5 ML SUSPENSION PO SCH (10:07)
[2017-05-10] MEDS: FERROUS SO4 325 MG TABLET (FP) PO SCH (10:07)
[2017-05-10] MEDS: predniSONE 10 MG TABLET (UD) PO SCH (10:07)
[2017-05-10] MEDS: morphine SO4 SUSTAINED ACTING 15 MG TABLET.SA PO SCH (10:07)
[2017-05-10] MEDS: DOCUSATE SODIUM 100 MG CAPSULE (FP) PO SCH (10:07)
[2017-05-10] MEDS: APIXABAN 5 MG TABLET PO SCH (10:07)
[2017-05-10] MEDS: PREGABALIN 75 MG CAPSULE PO SCH (10:08)
--- NOTE | 2017-05-10 10:09 | DS ---
Physical Examination Vital Signs: Vital Signs Temperature 98.9 F 05/10/17 02:00 Pulse Rate 107 H 05/10/17 02:00 Respiratory Rate 20 05/10/17 02:00 Blood Pressure 94/51 05/10/17 02:00 O2 Sat by Pulse Oximetry (%) 97 05/10/17 08:47 Findings/Remarks: 62y F hx of chronic hypoxic respiratory failure, pulmonary sarcoidosis,cardiac sarcoid resulting in arrhythmia required PPM, copd, pulm htn, chronic diastolic heart failure, type 2 DM, DVT, HTN, chronic back pain, HL, s/p AICD, hepatitis, presents from long-term for SOB. The pt states she has been having cough for the past 2 days associated with fever, congestion, mid sternal chets pain when she coughs. EMS arrived and noticed the pt to be hypoxic to 87s , was started on CPAP with improvement of her respiratory status to high 90s, transferred to ER --At ER tested + influenza Patient was admitted and treated for influenza / Iv steroids / nebulizer treatment -- she responded well and was changed back to PO steroids and continued on maintenance medications. She will be transferred back to [facility] to complete [facility] Constitutional: Yes: Well Nourished, No Distress, Anxious, Mild Distress Eyes: Yes: Conjunctiva Clear, EOM Intact HENT: Yes: Atraumatic, Normocephalic Neck: Yes: Supple, Trachea Midline Cardiovascular: Yes: Regular Rate and Rhythm Respiratory: Yes: Cough, On BiPap, On Nasal O2, Rhonchi, SOB, Wheezes Gastrointestinal: Yes: Normal Bowel Sounds, Abdomen, Obese. No: Distention ...Rectal Exam: Yes: Deferred Renal/: Yes: WNL Breast(s): Yes: WNL Extremities: Yes: Other (atrophy Lower extremeties) Edema: No Peripheral Pulses: Left Radial: 1+, Right Radial: 1+, Left Doralis Pedis: 1+, Right Dorsalis Pedis: 1+, Left Femoral: 1+, Right Femoral: 1+ Neurological: Yes: Alert, Oriented, Pre-Existing Deficit Psychiatric: Yes: Alert, Oriented, Agitated Labs: CBC, BMP 05/09/17 05:05 05/09/17 05:05 Discharge Summary Reason For Visit: UTI/INFLUENZA/SOB Current Active Problems Cardiac sarcoidosis (Acute) Chronic diastolic CHF (congestive heart failure) (Acute) DVT (deep venous thrombosis) (Acute) ICD (implantable cardioverter-defibrillator) in place (Acute) Influenza A (Acute) Nasal bleeding (Acute) PHT (pulmonary hypertension) (Acute) Pneumonia (Acute) Sarcoid (Acute) Sinus tachycardia (Acute) UTI (urinary tract infection) (Acute) Hospital Course: 62y F hx of chronic hypoxic respiratory failure, pulmonary sarcoidosis,cardiac sarcoid resulting in arrhythmia required PPM, copd, pulm htn, chronic diastolic heart failure, type 2 DM, DVT, HTN, chronic back pain, HL, s/p AICD, hepatitis, presents from long-term for SOB. Tested + influenza. She has completed her treatment and back to baseline - Her sterids have been changed back to PO. She will require PO steroids for life time. She will continue STR / chronic care at [facility]. Condition: Improved - Instructions Disposition: [facility] - Home Medications Comprehensive Discharge Medication List: Ambulatory Orders Albuterol 2.5/Ipratropium 0.5 [Duoneb -] 1 neb NEB TID 05/02/17 Apixaban [Eliquis -] 5 mg PO HS 05/02/17 Atorvastatin Ca [Lipitor] 10 mg PO HS 05/02/17 Calcium Carbonate 600 mg PO DAILY 05/02/17 Collagenase Clostridium Hist. [Santyl -] 1 applic TP DAILY 05/02/17 Docusate Sodium [Colace -] 100 mg PO HS 05/02/17 Ferrous Sulfate 325 mg PO HS 05/02/17 Furosemide 20 mg PO DAILY 05/02/17 Insulin (LOG) Aspart [NovoLOG -] 0 unit SQ DAILY 05/02/17 Insulin (Levemir) [Levemir Vial] 0 units SQ BID 05/02/17 Ipratropium/Albuterol Sulfate [Iprat-Albut 0.5-3(2.5) mg/3 ml] 3 ml IH TID 05/02 Lisinopril 10 mg PO DAILY 05/02/17 Mag Hydrox/Al Hydrox/Simeth [Mylanta Oral Suspension -] 0 ml PO DAILY 05/02/17 Montelukast Na [Singulair -] 10 mg PO HS 05/02/17 Prednisone [Deltasone -] 40 mg PO ASDIR 05/02/17 Pregabalin [Lyrica -] 75 mg PO DAILY 05/02/17 Ranitidine HCl 150 mg PO DAILY 05/02/17 Sennosides [Senna] 1 tab PO HS 05/02/17 Mirtazapine 15 mg PO DAILY 05/03/17
[2017-05-10 10:36] VITALS: BP 120/54; PULSE 85; TEMP 97.5
--- NOTE | 2017-05-10 11:32 | PN ---
Progress Note, Physician History of Present Illness: seen and examined today. states she is still coughing and feels same sob as past few days. being discharged today. - Current Medication List Current Medications: Active Medications Al Hydroxide/Mg Hydroxide (Mylanta Suspension -) 30 ml PO Q6HPO [facility] Last Admin: 05/10/17 06:37 Dose: 30 ml Albuterol/Ipratropium (Duoneb -) 1 amp NEB Q2H PRN PRN Reason: SHORTNESS OF BREATH Last Admin: 05/10/17 02:15 Dose: 1 amp Albuterol/Ipratropium (Duoneb -) 1 amp NEB RQID [facility] Last Admin: 05/10/17 08:01 Dose: 1 amp Apixaban (Eliquis -) 5 mg PO BID [facility] Last Admin: 05/10/17 10:07 Dose: 5 mg Atorvastatin Calcium (Lipitor -) 10 mg PO HS [facility] Last Admin: 05/09/17 21:08 Dose: 10 mg Docusate Sodium (Colace -) 100 mg PO DAILY [facility] Last Admin: 05/10/17 10:07 Dose: 100 mg Ferrous Sulfate (Feosol -) 325 mg PO DAILY [facility] Last Admin: 05/10/17 10:07 Dose: 325 mg Furosemide (Lasix -) 40 mg PO DAILY [facility] Last Admin: 05/10/17 10:07 Dose: 40 mg Hydromorphone HCl (Dilaudid Injection -) 2 mg IVPB Q6H PRN PRN Reason: pain Last Admin: 05/09/17 05:45 Dose: 2 mg Insulin Aspart (Novolog Vial Sliding Scale -) 1 vial SQ ACHS [facility] PRN Reason: Protocol Last Admin: 05/10/17 06:41 Dose: 4 units Lactulose (Cephulac (Oral Use)) 20 gm PO BID PRN PRN Reason: CONSTIPATION Last Admin: 05/09/17 11:15 Dose: 20 gm Lisinopril (Prinivil) 10 mg PO DAILY [facility] Last Admin: 05/10/17 10:07 Dose: 10 mg Montelukast Sodium (Singulair -) 10 mg PO HS [facility] Last Admin: 05/09/17 21:07 Dose: 10 mg Morphine Sulfate (Ms Contin -) 15 mg PO BID [facility] Last Admin: 05/10/17 10:07 Dose: 15 mg Nystatin (Nystatin Oral Suspension -) 500,000 units PO QID [facility] Stop: 05/10/17 18:01 Last Admin: 05/10/17 10:07 Dose: 500,000 units Ondansetron HCl (Zofran -) 4 mg PO Q6H PRN PRN Reason: NAUSEA Pantoprazole Sodium (Protonix -) 40 mg PO DAILY [facility] Last Admin: 05/10/17 10:07 Dose: 40 mg Prednisone (Deltasone -) 30 mg PO DAILY [facility] Last Admin: 05/10/17 10:07 Dose: 30 mg Pregabalin (Lyrica -) 75 mg PO BID [facility] Last Admin: 05/10/17 10:08 Dose: 75 mg Ranitidine HCl (Zantac -) 150 mg PO BID [facility] Last Admin: 05/10/17 10:07 Dose: 150 mg Sodium Chloride ([place] Nasal [place] -) 2 spray NS TID [facility] Last Admin: 05/10/17 06:41 Dose: 2 sprays - Objective Vital Signs: Vital Signs Temperature 97.5 F L 05/10/17 10:00 Pulse Rate 85 05/10/17 10:00 Respiratory Rate 20 05/10/17 10:00 Blood Pressure 120/54 05/10/17 10:00 O2 Sat by Pulse Oximetry (%) 97 05/10/17 09:00 Constitutional: Yes: No Distress, Calm Eyes: Yes: Conjunctiva Clear, EOM Intact HENT: Yes: Atraumatic, Normocephalic Neck: Yes: Supple, Trachea Midline Cardiovascular: Yes: Regular Rate and Rhythm, S1, S2. No: Bradycardia, Tachycardia, Pulse Irregular, Bruit, JVD, Gallop, Murmur, Rub, S3, S4, Varicosities Respiratory: Yes: Regular, Diminished, On Nasal O2, Rhonchi. No: Rales, SOB, Wheezes Gastrointestinal: Yes: Normal Bowel Sounds, Soft. No: Distention, Tenderness Edema: No Neurological: Yes: Alert, Oriented Psychiatric: Yes: Alert, Oriented Labs: CBC, BMP 05/09/17 05:05 05/09/17 05:05 INR, PTT INR 1.20 (0.82-1.09) H 05/07/17 07:35 - ....Imaging Chest X-ray: Report Reviewed, Image Reviewed EKG: Report Reviewed, Image Reviewed Other: Report Reviewed, Image Reviewed Assessment/Plan SOB-flu and possible PNA superimposed on chronic lung disease-sarcoidosis, Pulm HTN, chronic diastolic CHF,chronic right sided CHF -as per PMD/Pulm, discharge planned for today -euvolemic -resume po lasix on discharge -close outpatient f/up Cardiac sarcoidosis -ICD in place -Routine interrogations as outpatient H/o DVT -Continue Eliquis Sinus tachycardia-physiologic due to acute illness on chronic illness -secondary to acute illness on chronic conditions -no arrhythmias recorded when on tele
== END 2017-05-10 13:24 | DRG 139 ==
LOC: JER 15:37 → JERBED 20:16 → J4W 05-03 20:29
PROVIDERS: ADMIT Family Medicine; ATTEND Family Medicine
PROC: 5A09557 Assistance with Respiratory Ventilation, Greater than 96 Consecutive Hours, Continuous Positive Airway Pressure (ICD-10-PCS; principal; 2017-05-03)
DX: J09.X1 Influenza due to identified novel influenza A virus with pneumonia (principal); J96.22 Acute and chronic respiratory failure with hypercapnia; J96.21 Acute and chronic respiratory failure with hypoxia; I11.0 Hypertensive heart disease with heart failure; I50.32 Chronic diastolic (congestive) heart failure; J84.10 Pulmonary fibrosis, unspecified; I27.20 Pulmonary hypertension, unspecified; Z99.81 Dependence on supplemental oxygen; G20 Parkinson's disease; M32.9 Systemic lupus erythematosus, unspecified; E11.40 Type 2 diabetes mellitus with diabetic neuropathy, unspecified; J44.1 Chronic obstructive pulmonary disease with (acute) exacerbation; N39.0 Urinary tract infection, site not specified; D86.0 Sarcoidosis of lung; G47.33 Obstructive sleep apnea (adult) (pediatric); E66.9 Obesity, unspecified; K21.9 Gastro-esophageal reflux disease without esophagitis; Z86.718 Personal history of other venous thrombosis and embolism; Z85.810 Personal history of malignant neoplasm of tongue; G89.29 Other chronic pain; M54.5 Low back pain; E78.5 Hyperlipidemia, unspecified; Z79.01 Long term (current) use of anticoagulants; Z79.4 Long term (current) use of insulin; D64.9 Anemia, unspecified; R33.9 Retention of urine, unspecified; Z68.29 Body mass index [BMI] 29.0-29.9, adult; B19.20 Unspecified viral hepatitis C without hepatic coma; Z95.810 Presence of automatic (implantable) cardiac defibrillator; K59.03 Drug induced constipation; T40.0X5A Adverse effect of opium, initial encounter; B96.89 Other specified bacterial agents as the cause of diseases classified elsewhere; R00.0 Tachycardia, unspecified
CPT/HCPCS: 36415; 36600; 71045-TC; 80048; 80053; 81003; 81015; 82375; 82550; 82803; 82962; 83050; 83605; 83735; 84100; 84484; 85025; 85610; 85730; 87040; 87086; 87186; 87804; 93005; 93010; 94640; 94660; 97116-GP; 97161-GP; 99285-25; G0480

== ENCOUNTER 2017-08-28 18:59 | Inpatient (IN) | payer OTHER ==
--- NOTE | 2017-08-28 19:17 | PDOC ---
History of Present Illness - General History Source: Patient Exam Limitations: No Limitations - History of Present Illness Initial Comments: 08/28/17 20:00 The patient is a 62 year old female with a significant past medical history of asthma, atrial fibrillation, COPD (on 4L of oxygen), sarcoidosis, diabetes, hypertension, and hyperlipidemia who presents to the emergency department for evaluation of shortness of breath. The patient reports episode of increasing shortness of breath since yesterday. She reports mild midsternal chest pain with no radiation. The patient reports associated symptoms of productive cough with green sputum, chills, and nausea (nausea began on ). She reports a lack of appetite. The patient reports taking 2 nebulizer treatments, albuterol, and prednisone (30mg) today prior to arrival in emergency department. The patient is unable to ambulate, currently using a wheelchair. Of note, the patient was recently discharged from longterm on under the care of Dr. Fuchs. The patient denies headache, dizziness, vomiting, diarrhea, and constipation. Denies dysuria, frequency, urgency, and hematuria. Allergies: Amoxicillin, aspirin, bacitracin, ciprofloxacin, clavulanic acid, codeine, ketorolac, levofloxacin, metronidazole, nalbuphine Past surgical history: cardiac PPMD Social history: Former smoker. No reported alcohol or drug use. PCP: Dr. Ace Sorensen <Randa Tidwell - Last Filed: 08/29/17 01:22> - General History Source: Patient Exam Limitations: No Limitations <Carmen Crawford - Last Filed: 09/01/17 17:43> - General Chief Complaint: Shortness of Breath Stated Complaint: SOB Time Seen by Provider: 08/28/17 19:17 Past History <Randa Tidwell - Last Filed: 08/29/17 01:22> - Past Medical History Asthma: Yes Cardiac Disorders: Yes (afib) COPD: Yes (scaradosis) Diabetes: Yes HTN: Yes Hypercholesterolemia: Yes - Surgical History Cardiac Surgery: Yes (ppmd) - Suicide/Smoking/Psychosocial Hx Smoking History: Former smoker Have you smoked in the past 12 months: No Information on smoking cessation initiated: No Hx Alcohol Use: No Drug/Substance Use Hx: No Substance Use Type: None <Carmen Crawford - Last Filed: 09/01/17 17:43> - Past Medical History Allergies/Adverse Reactions: Allergies Allergy/AdvReac Type Severity Reaction Status Date / Time medroxyprogesterone acetate Allergy Severe stepehns Verified 05/02/17 17:24 [From Depo-Provera] josé syndrome amoxicillin [From Augmentin] Allergy Verified 08/28/17 19:10 amoxicillin trihydrate Allergy Verified 05/02/17 17:24 [From Augmentin] aspirin Allergy Verified 05/02/17 17:24 azithromycin [From Zithromax] Allergy Dewey Verified 05/02/17 17:24 José syndrome bacitracin Allergy Verified 08/28/17 19:10 ciprofloxacin [From Cipro] Allergy Verified 08/28/17 19:10 ciprofloxacin HCl Allergy Verified 05/02/17 17:24 [From Cipro] clavulanic acid Allergy Verified 08/28/17 19:10 [From Augmentin] codeine [Codeine] Allergy Verified 05/02/17 17:24 Iodinated Contrast- Oral and Allergy Verified 05/02/17 17:24 IV Dye [IV Dye, Iodine Containing Contrast ] ketorolac [From Toradol] Allergy Verified 08/28/17 19:10 ketorolac tromethamine Allergy Verified 05/02/17 17:24 [From Toradol] levofloxacin [From Levaquin] Allergy Verified 05/02/17 17:24 metronidazole [From Flagyl] Allergy Verified 05/02/17 17:24 nalbuphine [From Nubain] Allergy Verified 08/28/17 19:10 nalbuphine HCl [From Nubain] Allergy CYANOSIS Verified 05/02/17 17:24 potassium clavulanate Allergy Verified 05/02/17 17:24 [From Augmentin] Shellfish Allergy Verified 05/02/17 17:24 sulfamethoxazole Allergy Verified 05/02/17 17:24 [From Bactrim] trimethoprim [From Bactrim] Allergy Verified 05/02/17 17:24 ivp dye Allergy Severe Swelling Uncoded 05/02/17 17:24 Home Medications: Ambulatory Orders Albuterol 2.5/Ipratropium 0.5 [Duoneb -] 1 neb NEB TID 05/02/17 Apixaban [Eliquis -] 5 mg PO HS 05/02/17 Atorvastatin Ca [Lipitor] 10 mg PO HS 05/02/17 Calcium Carbonate [Calcium] 600 mg PO DAILY 05/02/17 Collagenase Clostridium Hist. [Santyl -] 1 applic TP DAILY 05/02/17 Docusate Sodium [Colace -] 100 mg PO HS 05/02/17 Ferrous Sulfate 325 mg PO HS 05/02/17 Insulin (LOG) Aspart [NovoLOG -] 0 unit SQ DAILY 05/02/17 Insulin (Levemir) [Levemir Vial] 0 units SQ BID 05/02/17 Ipratropium/Albuterol Sulfate [Iprat-Albut 0.5-3(2.5) mg/3 ml] 3 ml IH TID 05/02 Lisinopril 10 mg PO DAILY 05/02/17 Mag Hydrox/Al Hydrox/Simeth [Mylanta Oral Suspension -] 0 ml PO DAILY 05/02/17 Montelukast Na [Singulair -] 10 mg PO HS 05/02/17 Pregabalin [Lyrica -] 75 mg PO DAILY 05/02/17 Ranitidine HCl 150 mg PO DAILY 05/02/17 Sennosides [Senna -] 1 tab PO HS 05/02/17 Mirtazapine 15 mg PO DAILY 05/03/17 Albuterol 2.5/Ipratropium 0.5 [Duoneb -] 1 amp NEB Q2H PRN amp 05/10/17 Albuterol 2.5/Ipratropium 0.5 [Duoneb -] 1 amp NEB RQID amp 05/10/17 Apixaban [Eliquis -] 5 mg PO BID tablet 05/10/17 Atorvastatin Ca [Lipitor] 10 mg PO HS tablet 05/10/17 Docusate Sodium [Colace -] 100 mg PO DAILY capsule 05/10/17 Ferrous Sulfate [Feosol] 325 mg PO DAILY ud 05/10/17 Furosemide [Lasix -] 40 mg PO DAILY tablet 05/10/17 Insulin Sliding Scale [Novolog Vial Sliding Scale -] 1 vial SQ ACHS units 05/10 Lactulose (Oral Use) [Cephulac -] 20 gm PO BID PRN udc 05/10/17 Lisinopril [Prinivil] 10 mg PO DAILY tablet 05/10/17 Mag Hydrox/Al Hydrox/Simeth [MAALOX *SUSPENSION* -] 30 ml PO Q6HPO ml 05/10/17 Montelukast Na [Singulair -] 10 mg PO HS tablet 05/10/17 Morphine *Sr* [Ms Contin -] 15 mg PO BID 7 Days #14 tablet.sa MDD 30 05/10/17 Nystatin Oral Suspension - [Nystatin Oral Susp 777211 Units/5 ML -] 500,000 units PO QID cup 05/10/17 Ondansetron [Zofran -] 4 mg PO Q6H PRN tablet 05/10/17 Pregabalin [Lyrica -] 75 mg PO BID 7 Days #14 capsule MDD 150 05/10/17 Sodium Chloride Nasal [place] [[place] Nasal [place] -] 2 spray NS TID spray Arformoterol Tartrate [Brovana] 1 puff PO DAILY 08/29/17 Diltiazem HCl [Cardizem LA] 120 mg PO DAILY 08/29/17 Insulin Aspart [Novolog] 100 unit SQ ACHS 08/29/17 Lisinopril 10 mg PO DAILY 08/29/17 Metoclopramide HCl [Reglan] 5 mg PO TID 08/29/17 Metoclopramide HCl [Reglan] 5 mg PO TID 08/29/17 Montelukast Sodium [Singulair] 10 mg PO DAILY 08/29/17 Morphine Sulfate [Morphine Sulfate ER] 15 mg PO BID 08/29/17 Nitroglycerin Sublingual [Nitrostat -] 0.4 mg .ROUTE PRN 08/29/17 Nystatin Oral Suspension - [Nystatin Oral Susp 066270 Units/5 ML -] 500,000 units PO Q6H 08/29/17 Omeprazole 40 mg PO DAILY 08/29/17 Prednisone 30 mg PO DAILY 08/29/17 Pregabalin [Lyrica] 75 mg PO BID 08/29/17 Tiotropium [place] [Spiriva Respimat] 2.5 mcg PO DAILY 08/29/17 Review of Systems - Review of Systems Able to Perform ROS?: Yes Comments:: GENERAL/CONSTITUTIONAL: (+)Chills. No fever. No weakness. HEAD, EYES, EARS, NOSE AND THROAT: No change in vision. No ear pain or discharge. No sore throat. CARDIOVASCULAR: (+)Midsternal chest pain. (+)Shortness of breath. RESPIRATORY: (+)Cough. No wheezing, or hemoptysis. GASTROINTESTINAL: (+)Nausea. No vomiting, diarrhea or constipation. GENITOURINARY: No dysuria, frequency, or change in urination. MUSCULOSKELETAL: No joint or muscle swelling or pain. No neck or back pain. SKIN: No rash NEUROLOGIC: No headache, vertigo, loss of consciousness, or change in strength/ sensation. ENDOCRINE: No increased thirst. No abnormal weight change. HEMATOLOGIC/LYMPHATIC: No anemia, easy bleeding, or history of blood clots. ALLERGIC/IMMUNOLOGIC: No hives or skin allergy. <Randa Tidwell - Last Filed: 08/29/17 01:22> *Physical Exam - Vital Signs Last Vital Signs Temp Pulse Resp BP Pulse Ox 104 H 20 129/80 100 08/28/17 19:11 08/28/17 19:11 08/28/17 19:11 08/28/17 19:11 - Physical Exam Comments: GENERAL: Awake, alert, and fully oriented, in no acute distress HEAD: No signs of trauma EYES: PERRLA, EOMI, sclera anicteric, conjunctiva clear ENT: Auricles normal inspection, hearing grossly normal, nares patent, oropharynx clear without exudates. Moist mucosa NECK: Normal ROM, supple, no lymphadenopathy, JVD, or masses LUNGS: (+)Rhonchi bilaterally all lung wilhelm. (+)Currently on oxygen. HEART: (+)Tachycardic, no murmurs, rubs or gallops. ABDOMEN: Soft, nontender, normoactive bowel sounds. No guarding, no rebound. No masses EXTREMITIES: Normal range of motion, no lower extremity edema. No clubbing or cyanosis. No cords, erythema, or tenderness NEUROLOGICAL: Cranial nerves II through XII grossly intact. Normal speech, normal gait SKIN: Warm, Dry, normal turgor, no rashes or lesions noted. <Randa Tidwell - Last Filed: 08/29/17 01:22> - Vital Signs Last Vital Signs Temp Pulse Resp BP Pulse Ox 104 H 20 129/80 100 08/28/17 19:11 08/28/17 19:11 08/28/17 19:11 08/28/17 19:11 <Carmen Crawford - Last Filed: 09/01/17 17:43> ED Treatment Course - LABORATORY CBC & Chemistry Diagram: 08/28/17 21:51 08/28/17 21:51 <Randa Tidwell - Last Filed: 08/29/17 01:22> - LABORATORY CBC & Chemistry Diagram: 08/31/17 06:00 08/31/17 06:00 <Carmen Crawford - Last Filed: 09/01/17 17:43> Medical Decision Making - Critical Care Time Total Critical Care Time (minutes): 60 Critical Care Statement: The care of this patient involved high complexity decision making to prevent further life threatening deterioration of the patient 's condition and/or to evaluate & treat vital organ system(s) failure or risk of failure. - Medical Decision Making 08/28/17 19:43 Ms Canchola is a 62 yo F with a history of HTN, HLD, COPD/Asthma (on 3-4 L home O2 ), Afib, GERD S/p recent discharge from snf (two days ago, she was there for respiratory rehab) Pt presents to the ER stating that she is increasingly short of breath She had hot and cold chills, no fever She has noted chest pain No vomiting or diarrhea She is tolerating po but has noted early satiety She has a cough which is productive of green sputum DD: COPD exacerbation, Asthma exacerbation, pneumonia, Sarcoidosis, Will do: Labs CXR Nebs Pt already took steroids EKG:Sinus tachycardia, rate of 112 bpm, axis nml, no st elevations or depressions, t waves upright 08/28/17 22:04 Laboratory Tests 08/28/17 21:51 WBC 11.7 H Hgb 11.3 Hct 34.9 Plt Count 287 Neutrophils % 86.8 H Lymphocytes % 9.5 IV fluids started Nebs and steroids 08/28/17 22:30 Laboratory Tests 08/28/17 08/28/17 21:51 21:51 Sodium 138 Potassium 5.0 Chloride 98 Carbon Dioxide 37 H BUN 27 H Creatinine 0.9 Random Glucose 335 H* Creatine Kinase 41 Troponin I < 0.02 Total Amylase 112 Lipase 43 L 08/29/17 01:30 CT demonstrates bilateral extensive bronchiectasis, honeycombing and fibrotic changes Small focal infiltrates left upper lobe and right upper lobe which could be superimposed pneumonia No effusion No pneumothroax Case reviewed with dr aggarwal unclear if pt increased shortness of breath is related to pneumonia vs. progression of her COPD AND Sarcoidosis Recommends Abx - vanc/aztreonam/Azithromycin (given pt allergies) Pt stable Will admit to [facility] Clinical impression: Shortness of breath, initial presentation COPD exacerbation, initial presentation Sarcoidosis, initial presentation <Carmen Crawford - Last Filed: 09/01/17 17:43> *DC/Admit/Observation/Transfer - Attestations Scribe Attestion: Documentation prepared by Randa Tidwell, acting as medical imaging tech for Carmen Crawford MD. <Randa Tidwell - Last Filed: 08/29/17 01:22> - Discharge Dispostion Decision to Admit order: Yes <Carmen Crawford - Last Filed: 09/01/17 17:43> Diagnosis at time of Disposition: Sarcoidosis, COPD exacerbation Pneumonia Qualifiers: Pneumonia type: due to unspecified organism Laterality: unspecified laterality Lung location: upper lobe of lung Qualified Code(s): J18.1 - Lobar pneumonia, unspecified organism - Discharge Dispostion Condition at time of disposition: Fair
[2017-08-28] MEDS ORDERED: SODIUM CHLORIDE 1,000 ML IV STA (19:40)
[2017-08-28 22:00] LABS: BASO % 0.6 % (0-2.0); EOS % 0.5 % (0-4.5); HEMATOCRIT 34.9 % (32.4-45.2); HEMOGLOBIN 11.3 GM/dL (10.7-15.3); LYMPH % 9.5 % (8-40); MCHC 32.4 g/dl (32.0-36.0); MEAN CELL VOLUME 86.5 fl (80-96); MEAN PLT VOLUME 8.2 fl (7.5-11.1); MONO % 2.6 % (3.8-10.2); NEUT % 86.8 % (42.8-82.8); PLATELET COUNT 287 K/MM3 (134-434); RBC 4.03 M/mm3 (3.60-5.2); RDW 15.8 % (11.6-15.6); WHITE BLOOD COUNT 11.7 K/mm3 (4.0-10.0)
[2017-08-28] MEDS ORDERED: methylPREDNISolone NA SUCC 125 MG/2 ML VIAL IVPB ONE (22:03)
[2017-08-28] MEDS ORDERED: ALBUTEROL SO4 2.5/IPRATROPIUM 0.5 INH SOL 3 ML VIAL.NEB. NEB ONE (22:03)
[2017-08-28 22:11] LABS: INR 1.14 (0.82-1.09); PROTHROMBIN TIME (PATIENT) 12.9 SEC (9.7-13.0)
[2017-08-28] MEDS ORDERED: methylPREDNISolone NA SUCC 125 MG/2 ML VIAL ONE (22:17)
[2017-08-28 22:19] LABS: AMYLASE 112 U/L (25-115); LIPASE 43 U/L (73-393)
[2017-08-28 22:22] LABS: ALBUMIN 3.1 g/dl (3.4-5.0); ANION GAP 3 (8-16); BILIRUBIN,TOTAL 0.2 mg/dL (0.2-1.0); BLOOD UREA NITROGEN 27 mg/dL (7-18); CALCIUM 8.8 mg/dL (8.5-10.1); CHLORIDE 98 mmol/L (98-107); CO2 37 mmol/L (21-32); CREATININE 0.9 mg/dL (0.55-1.02); MAGNESIUM 1.6 mg/dL (1.8-2.4); SGOT/AST 17 U/L (15-37); SGPT/ALT 22 U/L (12-78); SODIUM 138 mmol/L (136-145); TOT PROT 7.7 g/dl (6.4-8.2)
[2017-08-28 22:25] LABS: ALK PHOS 110 U/L (45-117); N-TERMINAL BNP 42.72 pg/ml (5-125)
[2017-08-28 22:27] LABS: GLUCOSE,RANDOM 335 mg/dL (74-106)
[2017-08-28 23:44] LABS: ARTERIAL BLD GAS O2 SATURATION 98.8 % (90-98.9); ARTERIAL BLOOD GAS BASE EXCESS 10.7 meq/l (-2-2); ARTERIAL BLOOD GAS PCO2 56.9 mmHg (35-45); ARTERIAL BLOOD GAS pH 7.42 (7.35-7.45)
[2017-08-28 23:45] LABS: ALLENS TEST POSITIVE
[2017-08-29] MEDS ORDERED: INSULIN REGULAR HUMAN 100 UNITS/ML *VIAL IVPUSH ONE (00:19)
[2017-08-29] MEDS ORDERED: VANCOMYCIN 1,000 MG in DEXTROSE 5%-WATER - 250 ML IVPB ONE ×3 (01:26→15:00)
[2017-08-29] MEDS ORDERED: AZITHROMYCIN IVPB 500 MG in DEXTROSE 5%-WATER - 250 ML IVPB ONE (01:26)
[2017-08-29] MEDS ORDERED: AZTREONAM 2 GM in DEXTROSE 5%-WATER 100 ML IVPB SCH (01:30)
[2017-08-29] MEDS ORDERED: INSULIN REGULAR HUMAN 100 UNITS/ML *VIAL ONE (02:29)
--- NOTE | 2017-08-29 02:31 | HP ---
CHIEF COMPLAINT:Shortness of breath PCP:PCP: Dr. Ace Sorensen [employer] Cutter: Dr. De La Cruz OF NOTE THE PATIENT ALSO HAS SOME VISITS LISTED UNDER A DIFFERENT MEDICAL NUMBER. LOOK PATIENT UP BY NAME TO SEE HER MEDICAL CHART ON [facility] FOR PREVIOUS VISITS HISTORY OF PRESENT ILLNESS: 62F with extensive PMH including COPD/Asthma on 4L O2, CHF, other medical problems listed below presents to the hospital with shortness of breath. patient was recently discharged from [facility] this past after being under the care of Dr. Fuchs. patient states she is always short of breath but her shortness of breath is getting worse from baseline and she has been constantly using her asthma and COPD medications without relief. When she started getting short of breath she took a few nebulizer treatments and took an extra dose of 30mg PO prednisone which she is on daily but did not get any relief. She also states that she has not been able to follow up with her PCP , wildlife officer, or eligibility services representative. She states she also has been having cough with yellow/green sputum production. She denies fevers but did have chills. She also endorses chest pain which she attributes to coughing. She has also been nauseous along with poor appetite but did not vomit. She states some medications she has not been able to bulk picker from the pharmacy yet one of them being the cardizem CD. She denies She denies urinary symptoms. 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 ER course was notable for: (1)CXR Chest CT (2)Labs EKG (3)IVF ABx Recent Travel:Denies PAST MEDICAL HISTORY: Cardiac sarcoidosis, Iron deficiency anemia, GERD, pulmonary fibrosis, Asthma/COPD on 4L Home O2-previously intubated, HTN, HLD, DM , diabetic gastroparesis, CHF s/p AICD/PPM for cardiac sarcoid, Diastolic dysfunction, depression, chronic pain syndrome, lumbago, wheelchair bound, chronic LLE weakness, chronic muscle pain, chronic weakness, sarcoidosis, A. fib on eliquis, history of DVT, pulmonary HTN, Documented history of hep C, OSVALDO PAST SURGICAL HISTORY:multiple back surgeries pacemaker/AICD insertion, tubal ligation, reversal of tubal ligation, pain pump insertion, Social History: Smoking:Former smoker Alcohol:Denies Drugs: Denies Family History: Allergies Patient states she has even has norma esparza from azithromycin multiple allergies that have caused HIVES amoxicillin [From Augmentin] Allergy (Verified 08/28/17 19:10) aspirin Allergy (Verified 08/28/17 19:10) bacitracin Allergy (Verified 08/28/17 19:10) ciprofloxacin [From Cipro] Allergy (Verified 08/28/17 19:10) clavulanic acid [From Augmentin] Allergy (Verified 08/28/17 19:10) codeine Allergy (Verified 08/28/17 19:10) ketorolac [From Toradol] Allergy (Verified 08/28/17 19:10) levofloxacin [From Levaquin] Allergy (Verified 08/28/17 19:10) metronidazole [From Flagyl] Allergy (Verified 08/28/17 19:10) nalbuphine [From Nubain] Allergy (Verified 08/28/17 19:10) HOME MEDICATIONS: REVIEW OF SYSTEMS CONSTITUTIONAL: Absent: fever, , diaphoresis, loss of appetite, weight change Present: chills, generalized weakness, malaise HEENT: Absent: rhinorrhea, nasal congestion, throat pain, throat swelling, difficulty swallowing, mouth swelling, ear pain, eye pain, visual changes CARDIOVASCULAR: Absent: syncope, palpitations, irregular heart rate, lightheadedness, peripheral edema Present: chest pain RESPIRATORY: Absent: orthopnea, wheezing, stridor, hemoptysis Present: cough, shortness of breath, dyspnea with exertion, wheezing GASTROINTESTINAL: Absent: abdominal pain, abdominal distension, nausea, vomiting, diarrhea, constipation, melena, hematochezia GENITOURINARY: Absent: dysuria, frequency, urgency, hesitancy, hematuria, flank pain, genital pain MUSCULOSKELETAL: Absent: myalgia, arthralgia, joint swelling, back pain, neck pain Present: Chronic pain of back and legs SKIN: Absent: rash, itching, pallor HEMATOLOGIC/IMMUNOLOGIC: Absent: easy bleeding, easy bruising, lymphadenopathy, frequent infections ENDOCRINE: Absent: unexplained weight gain, unexplained weight loss, heat intolerance, cold intolerance NEUROLOGIC: Absent: headache, focal weakness or paresthesias, dizziness, unsteady gait, seizure, mental status changes, bladder or bowel incontinence PSYCHIATRIC: Absent: anxiety, depression, suicidal or homicidal ideation, hallucinations. PHYSICAL EXAMINATION Vital Signs - 24 hr 05/19/18 05/19/18 19:11 22:30 Temperature 98.6 F Pulse Rate 104 H Pulse Rate [ 135 H Apical] Respiratory 20 32 H Rate Blood Pressure 129/80 O2 Sat by Pulse 100 Oximetry (%) GENERAL: Awake, alert, and fully oriented HEAD: Normal with no signs of trauma. EYES: Pupils equal, round and reactive to light, extraocular movements intact. EARS, NOSE, THROAT: Moist mucous membranes. NECK: Normal range of motion, supple without JVD LUNGS: Diffuse scattered rhonchi and crackles with scattered expiratory wheezes.coarse breath sounds bilaterally HEART: Regular rate and rhythm, normal S1 and S2 without murmur, rub or gallop. ABDOMEN: Soft, nontender, not distended MUSCULOSKELETAL: No CVA tenderness. 5/5 muscle strength except at LLE. UPPER EXTREMITIES: warm, well-perfused. No peripheral edema. LOWER EXTREMITIES: warm, well-perfused. No calf tenderness. No peripheral edema. NEUROLOGICAL: Cranial nerves II-XII grossly intact. Normal speech. Laboratory Results - last 24 hr 08/28/17 08/28/17 08/28/17 21:51 21:51 21:51 WBC 11.7 H RBC 4.03 Hgb 11.3 Hct 34.9 MCV 86.5 MCH 28.0 MCHC 32.4 RDW 15.8 H Plt Count 287 MPV 8.2 Neutrophils % 86.8 H Lymphocytes % 9.5 Monocytes % 2.6 L Eosinophils % 0.5 Basophils % 0.6 PT with INR 12.90 INR 1.14 Puncture Site ABG pH ABG pCO2 at Pt Temp ABG pO2 at Pt Temp ABG HCO3 ABG O2 Sat (Measured) ABG O2 Content ABG Base Excess Tanner Test Oxygen Flow Rate Sodium 138 Potassium 5.0 Chloride 98 Carbon Dioxide 37 H Anion Gap 3 L BUN 27 H Creatinine 0.9 Creat Clearance w eGFR > 60 Random Glucose 335 H* Calcium 8.8 Magnesium 1.6 L Total Bilirubin 0.2 AST 17 ALT 22 Alkaline Phosphatase 110 Creatine Kinase 41 Troponin I < 0.02 B-Natriuretic Peptide 42.72 Total Protein 7.7 Albumin 3.1 L Total Amylase Lipase Acetone, Qual Blood Type Antibody Screen 08/28/17 08/28/17 08/28/17 21:51 21:51 21:51 WBC RBC Hgb Hct MCV MCH MCHC RDW Plt Count MPV Neutrophils % Lymphocytes % Monocytes % Eosinophils % Basophils % PT with INR INR Puncture Site ABG pH ABG pCO2 at Pt Temp ABG pO2 at Pt Temp ABG HCO3 ABG O2 Sat (Measured) ABG O2 Content ABG Base Excess Tanner Test Oxygen Flow Rate Sodium Potassium Chloride Carbon Dioxide Anion Gap BUN Creatinine Creat Clearance w eGFR Random Glucose Calcium Magnesium Total Bilirubin AST ALT Alkaline Phosphatase Creatine Kinase Troponin I B-Natriuretic Peptide Total Protein Albumin Total Amylase 112 Lipase 43 L Acetone, Qual Negative L Blood Type O POSITIVE Antibody Screen Negative 08/28/17 23:40 WBC RBC Hgb Hct MCV MCH MCHC RDW Plt Count MPV Neutrophils % Lymphocytes % Monocytes % Eosinophils % Basophils % PT with INR INR Puncture Site Right radial ABG pH 7.42 ABG pCO2 at Pt Temp 56.9 H ABG pO2 at Pt Temp 126.0 H ABG HCO3 36.8 H ABG O2 Sat (Measured) 98.8 ABG O2 Content No Result Required. ABG Base Excess 10.7 H Tanner Test Positive Oxygen Flow Rate Yes Sodium Potassium Chloride Carbon Dioxide Anion Gap BUN Creatinine Creat Clearance w eGFR Random Glucose Calcium Magnesium Total Bilirubin AST ALT Alkaline Phosphatase Creatine Kinase Troponin I B-Natriuretic Peptide Total Protein Albumin Total Amylase Lipase Acetone, Qual Blood Type Antibody Screen Active Orders 24 hr Category Date Time Status Admission Certification Once Admission 08/29/17 02:33 Active Admit for Inpatient Services ONCE Admission 08/29/17 02:33 Active Decision to Admit to Hospital Routine Admission 08/29/17 01:[address] WITHOUT CONTRAST [CT] Stat CT Scan 08/28/17 22:51 Taken ELECTROCARDIOGRAM [CARD] Stat Cardiology 08/28/17 19:20 Ordered Activity, OOB w Assist As tolerated Care 08/29/17 02:33 Active BGM (Blood Glucose Monitoring) ACHS Care 08/29/17 02:33 Active BRP w/Assist As tolerated Care 08/29/17 02:33 Active Cardiac Monitoring Continuous Care 08/28/17 19:20 Active Early ambulation QS Care 08/29/17 02:33 Active IV Insert NOW Care 08/28/17 19:20 Active Insert Saline Lock NOW Care 08/29/17 02:34 Active SCDs, apply Both legs Care 08/29/17 02:37 Active Turn and Position Q2H Care 08/29/17 02:33 Active Turn, Cough, Deep Breathe Q2H Care 08/29/17 02:33 Active Vital Signs Q6H Care 08/29/17 02:34 Active Consult [Physician Consultation] Physician 1 Cons 08/29/17 02:47 Ordered Physician Consultation Physician 1 Cons 08/29/17 02:33 Ordered Diabetic/Sodium Diet [DT] Diet 08/29/17 Breakfast Active COMP METABOLIC PANEL Routine Lab 08/29/17 06:00 Ordered COMPLETE BLOOD COUNT Routine Lab 08/30/17 06:00 Ordered MAGNESIUM Routine Lab 08/29/17 06:00 Ordered PHOSPHOROUS Routine Lab 08/29/17 06:00 Ordered Albuterol 0.083% Nebulizer Gisela [Ventolin 0.083% Medication 08/29/17 02:37 Ordered Nebulizer Soln -] 1 amp NEB Q4H PRN Albuterol 2.5/Ipratropium 0.5 [Duoneb -] Medication 08/29/17 08:00 Ordered 1 amp NEB RTID Apixaban [Eliquis -] Medication 08/29/17 10:00 Ordered 5 mg PO BID Atorvastatin Ca [Lipitor -] Medication 08/29/17 22:00 Ordered 10 mg PO HS Aztreonam [Azactam (Restricted To Id) -] 2 gm Medication 08/29/17 02:45 Ordered Dextrose 5%-Water [Dextrose 5% Water Minibag 100ML] 100 ml IVPB Q8H Calcium Carbonate - Medication 08/29/17 10:00 Ordered 650 mg PO DAILY Diltiazem Cd [Cardizem Cd -] Medication 08/29/17 10:00 Ordered 120 mg PO DAILY Doxycycline Injection [Vibramycin Injection -] 100 mg Medication 08/29/17 10: 00 Active Dextrose 5%-Water [Dextrose 5% Water Minibag 100ML] 100 ml IVPB BID Ferrous Sulfate [Feosol -] Medication 08/29/17 10:00 Ordered 325 mg PO DAILY Insulin (Levemir) [Levemir Vial] Medication 08/29/17 07:00 Ordered 20 units SQ DAILY@0700 Insulin (Levemir) [Levemir Vial] Medication 08/29/17 22:00 Ordered 50 units SQ HS Insulin Sliding Scale [Novolog Vial Sliding Scale -] Medication 08/29/17 07: 00 Ordered 1 vial SQ TIDAC Lisinopril [Prinivil] Medication 08/29/17 10:00 Ordered 10 mg PO DAILY Metoclopramide HCl [Reglan -] Medication 08/29/17 07:00 Ordered 5 mg PO TIDAC Montelukast Na [Singulair -] Medication 08/29/17 22:00 Ordered 10 mg PO HS Morphine *Sr* [Ms Contin -] Medication 08/29/17 10:00 Ordered 15 mg PO BID Nystatin Ointment [Mycostatin Ointment -] Medication 08/29/17 10:00 Ordered 1 applic TP BID Nystatin Oral Suspension - Medication 08/29/17 06:00 Ordered 500,000 units PO Q6HPO Pregabalin [Lyrica -] Medication 08/29/17 10:00 Ordered 75 mg PO BID Salmeterol/Fluticasone [Advair 100Mcg/50Mcg -] Medication 08/29/17 10:00 Ordered 1 puff IH BID Sennosides [Senna -] Medication 08/29/17 22:00 Ordered 1 tab PO HS Sodium Chloride [Normal Saline -] 1,000 ml Medication 08/29/17 02:46 Ordered IV ASDIR Tiotropium Xenia [Spiriva -] Medication 08/29/17 10:00 Ordered 1 puff IH DAILY Vancomycin 1,000 mg Medication 08/29/17 02:45 Ordered Dextrose 5%-Water - [D5w -] 250 ml IVPB Q12H predniSONE [Deltasone -] Medication 08/29/17 10:00 Ordered 30 mg PO DAILY BLOOD CULTURE Stat Micro 08/29/17 01:26 Ordered SPUTUM CULTURE Routine Micro 08/29/17 02:36 Uncollected URINE ANTIGENS FOR PNEUMONIA Stat Micro 08/29/17 02:49 Uncollected Strict Intake/Output QSHIFT Phy Order 08/29/17 07:00 Ordered Strict Intake/Output QSHIFT Phy Order 08/29/17 15:00 Ordered Strict Intake/Output QSHIFT Phy Order 08/29/17 23:00 Ordered VTE Risk Level/Orders Routine Phy Order 08/29/17 02:33 Ordered CHEST X-RAY PORTABLE* [RAD] Stat Radiology 08/28/17 19:20 Taken Reminder: new phy cons See Order Reminders 08/29/17 02:34 Ordered Reminder: new phy cons See Order Reminders 08/29/17 02:48 Ordered Oxygen Therapy Nasal Cannula 4 lpm Medical Nurse 08/29/17 02:33 Ordered Respiratory Request Routine Medical Nurse 08/29/17 02:38 Active Physical Therapy Request Routine Ther 08/29/17 02:35 Ordered EKG sinus tachycardia no ST changes Chest CT: Bronchiectasis, honey combing ASSESSMENT/PLAN: 62F with multiple medical problems presents to the ED with shortness of breath. Shortness of breath: acute exacerbation of COPD/Asthma vs disease process of sarcoidosis with COPD vs HCAP vs pulmonary fibrosis admit to med/surg Start ABx vancomycin, aztreonam, doxyxyxline-major PCN allergy Will get ID consult-Dr. allan saw her on last admission Send urine antigens CXR and chest CT noted restart prednsione 30mg daily restart spiriva restart advair restart Duonebs Albuterol nebs PRN restart singulair pulmonology consult OSVALDO: BiPAP HS sarcoidosis: cardiac and pulmonary See above send TYRON level-needs pathology approval Atypical chest pain: likely pleuritic vs MSK due to cough CHF: diastolic not in exacerbation at this time restart lasix 40mg po daily stop IVF HTN: restart cardizem 120mg CD daily lisinopril 10mg po daily Dm: ISS BGM ACHS levemir 20 units QAM levemir 50 units HS HLD: Restart statin A. Fib on eliquis: currently sinus but tachycardic tachycardia could be due to patient not taking cardizem for past few days restart eliquis 5mg po BID Restart Cardizem 120mg CD po daily chronic pain syndrome/Lumbago: restart lyrica 75mg po BID restart morphine 15mg SR BID patient has pain pump no longer working History of DVT: restart eliquis 5mg po BID Iron deficiency anemia: restart home doseof iron 325mg po daily senna HS diabetic gastroparesis: restart reglan 5mg po TIDAC history of hepatitis C Pulmonary HTN Depression Chronic LLE weakness Chronic muscle pain chronic LLE weakness FEN: Stop IVF no electrolyte issues diabetic sodium controlled diet PPx: Eliquis stat Protonix while on chronic steroids PT consult Patient seen and examined and case discussed with attending Dr. King in detail Visit type - Emergency Visit Emergency Visit: Yes ED Registration Date: 08/29/17 Care time: The patient presented to the Emergency Department on the above date and was hospitalized for further evaluation of their emergent condition. - New Patient This patient is new to me today: Yes Date on this admission: 08/29/17 - Critical Care Critical Care patient: No Hospitalist Screening - Colonoscopy Questionnaire Colonoscopy Questionnaire: Colonoscopy Questionnaire - Patient: 50 - 75 years old and never had a screening colonoscopy: No History of colon or rectal polyps, or CA: No History of IBD, Crohn's disease or UC: No History of abdominal radiation therapy as a child: No - Relative: 1 with colon or rectal CA, or polyps at age 60 or younger: No Colon or rectal CA diagnosed at age 45 or younger: No Multiple relatives with colon or rectal CA: No - Outcome: Screening Result: Negative Screen
[2017-08-29] MEDS ORDERED: SODIUM CHLORIDE 1,000 ML IV STA (02:46)
--- NOTE | 2017-08-29 02:47 | PN ---
Teaching Attending Note Name of Resident: Luis A Fox ATTENDING PHYSICIAN STATEMENT I saw and evaluated the patient. Chart, data, imaging reviewed. I reviewed the resident's note and discussed the case with the resident. I agree with the resident's findings and plan as documented. SUBJECTIVE: 62 year old female with a pmhx of asthma, atrial fibrillation, COPD (on 4L of oxygen), sarcoidosis, diabetes, hypertension, and hyperlipidemia, steroid dependent, s/p pacemaker placement, wheelchair bound, c/o shortness of breath for the last 1-2 days and productive cough. Patient was recently d/c from [facility]term. She denied any recent travels or animal exposure. OBJECTIVE: Last Vital Signs Temp Pulse Resp BP Pulse Ox 98.6 F 135 H 32 H 129/80 100 08/28/17 22:30 08/28/17 22:30 08/28/17 22:30 08/28/17 19:11 08/28/17 19:11 general- nad, aaox3 heent- nt, normocephalic neck -supple cv-s1+s2+ chest- cta b/l abdomen- soft, nt ext- no pedal edema skin - no rashes seen Abnormal Lab Results 08/28/17 08/28/17 08/28/17 21:51 21:51 21:51 WBC 11.7 H RDW 15.8 H Neutrophils % 86.8 H Monocytes % 2.6 L ABG pCO2 at Pt Temp ABG pO2 at Pt Temp ABG HCO3 ABG Base Excess Carbon Dioxide 37 H Anion Gap 3 L BUN 27 H Random Glucose 335 H* Magnesium 1.6 L Albumin 3.1 L Lipase Acetone, Qual Negative L 08/28/17 08/28/17 21:51 23:40 WBC RDW Neutrophils % Monocytes % ABG pCO2 at Pt Temp 56.9 H ABG pO2 at Pt Temp 126.0 H ABG HCO3 36.8 H ABG Base Excess 10.7 H Carbon Dioxide Anion Gap BUN Random Glucose Magnesium Albumin Lipase 43 L Acetone, Qual Chest CT- reviewed by me, chronic lung disease, reticular changes, honeycombing , small bibasilar infiltrates appreciated ASSESSMENT AND PLAN: 62yo immunocompromised woman with multiple drug allergies with HCAP. #HCAP - productive cough, shortness of breath, + chest CT findings -vancomycin 1g IV q12hrs -aztreonam 2g IV q8hrs -doxycycline 100mg IV q12hrs -sputum culture -urine legionella antigen -blood cultures x2 sent #Sarcoidosis -resume home prednisone dose- 40mg daily -supplemental oxygen -pulmonary evaluation -medication reconciliation -please see resident note for details -heparin sc for dvt ppx
[2017-08-29] MEDS ORDERED: VANCOMYCIN 1 GRAM (PRE-DOCKED) 1,000 MG/250 ML BAG IVPB ONE (02:57)
[2017-08-29] MEDS ORDERED: ACETAMINOPHEN 325 MG TABLET (FP) ONE (02:57)
[2017-08-29] MEDS ORDERED: morphine SO4 SUSTAINED ACTING 15 MG TABLET.SA PO ONE (03:24)
[2017-08-29] MEDS ORDERED: PREGABALIN 75 MG CAPSULE PO ONE (03:24)
[2017-08-29] MEDS: AZTREONAM 2 GM in DEXTROSE 5%-WATER 100 ML IVPB SCH ×2 (04:57→09:59)
[2017-08-29] MEDS: INSULIN SLIDING SCALE (NOVOLOG) 1 VIAL SQ SCH ×3 (06:42→17:15)
[2017-08-29] MEDS: INSULIN (LEVEMIR) 100 UNITS/ML UNITS SQ SCH ×2 (06:43→21:36)
[2017-08-29] MEDS: NYSTATIN 500,000 UNITS/5 ML SUSPENSION PO SCH ×4 (06:43→17:21)
[2017-08-29] MEDS: METOCLOPRAMIDE HCL 10 MG TABLET (FP) PO SCH ×3 (06:43→17:16)
[2017-08-29] MEDS: ALBUTEROL SO4 0.083% IH SOL 2.5 MG/3 ML VIAL.NEB. NEB PRN (07:24)
[2017-08-29] MEDS: ALBUTEROL SO4 2.5/IPRATROPIUM 0.5 INH SOL 3 ML VIAL.NEB. NEB SCH ×3 (07:49→20:53)
[2017-08-29] MEDS ORDERED: ACETYLCYSTEINE 20% 200MG/ML 30 ML VIAL *FOR ORAL / INH USE ONLY NEB PRN (08:26)
[2017-08-29 08:31] LABS: CHLORIDE 98 mmol/L (98-107); POTASSIUM 4.8 mmol/L (3.5-5.1); SODIUM 141 mmol/L (136-145)
[2017-08-29 08:40] LABS: ALBUMIN 2.7 g/dl (3.4-5.0); ALK PHOS 97 U/L (45-117); ANION GAP 8 (8-16); BILIRUBIN,TOTAL 0.3 mg/dL (0.2-1.0); BLOOD UREA NITROGEN 29 mg/dL (7-18); CALCIUM 8.9 mg/dL (8.5-10.1); CO2 35 mmol/L (21-32); CREATININE 0.9 mg/dL (0.55-1.02); MAGNESIUM 1.8 mg/dL (1.8-2.4); PHOSPHOROUS 3.9 mg/dL (2.5-4.9); SGOT/AST 13 U/L (15-37); SGPT/ALT 17 U/L (12-78); TOT PROT 6.8 g/dl (6.4-8.2)
[2017-08-29 08:48] LABS: GLUCOSE,RANDOM 371 mg/dL (74-106)
--- NOTE | 2017-08-29 08:56 | PN ---
Progress Note (short form) - Note Progress Note: Subjective: complains of SOB , tightness of chest in retrosternal area with cough x 3 days . cough with green sputum production . chronic abd pain, in epigastric area. co constipation. reports chills at home. reports ongoing symptoms x 2 weeks cough with hypoxia to 80 this am , resolved quickly . Objective: Vital Signs: Last Vital Signs Temp Pulse Resp BP Pulse Ox 98.5 F 104 H 28 H 129/76 99 08/29/17 05:49 08/29/17 07:55 08/29/17 05:49 08/29/17 07:55 08/29/17 07:48 Laboratory Results - last 24 hr 08/28/17 08/28/17 08/28/17 21:51 21:51 21:51 WBC 11.7 H RBC 4.03 Hgb 11.3 Hct 34.9 MCV 86.5 MCH 28.0 MCHC 32.4 RDW 15.8 H Plt Count 287 MPV 8.2 Neutrophils % 86.8 H Lymphocytes % 9.5 Monocytes % 2.6 L Eosinophils % 0.5 Basophils % 0.6 PT with INR 12.90 INR 1.14 Puncture Site ABG pH ABG pCO2 at Pt Temp ABG pO2 at Pt Temp ABG HCO3 ABG O2 Sat (Measured) ABG O2 Content ABG Base Excess Tanner Test Oxygen Flow Rate Sodium 138 Potassium 5.0 Chloride 98 Carbon Dioxide 37 H Anion Gap 3 L BUN 27 H Creatinine 0.9 Creat Clearance w eGFR > 60 POC Glucometer Random Glucose 335 H* Calcium 8.8 Phosphorus Magnesium 1.6 L Total Bilirubin 0.2 AST 17 ALT 22 Alkaline Phosphatase 110 Creatine Kinase 41 Troponin I < 0.02 B-Natriuretic Peptide 42.72 Total Protein 7.7 Albumin 3.1 L Total Amylase Lipase Acetone, Qual Blood Type Antibody Screen 08/28/17 08/28/17 08/28/17 21:51 21:51 21:51 WBC RBC Hgb Hct MCV MCH MCHC RDW Plt Count MPV Neutrophils % Lymphocytes % Monocytes % Eosinophils % Basophils % PT with INR INR Puncture Site ABG pH ABG pCO2 at Pt Temp ABG pO2 at Pt Temp ABG HCO3 ABG O2 Sat (Measured) ABG O2 Content ABG Base Excess Tanner Test Oxygen Flow Rate Sodium Potassium Chloride Carbon Dioxide Anion Gap BUN Creatinine Creat Clearance w eGFR POC Glucometer Random Glucose Calcium Phosphorus Magnesium Total Bilirubin AST ALT Alkaline Phosphatase Creatine Kinase Troponin I B-Natriuretic Peptide Total Protein Albumin Total Amylase 112 Lipase 43 L Acetone, Qual Negative L Blood Type O POSITIVE Antibody Screen Negative 08/28/17 08/29/17 08/29/17 23:40 06:00 06:41 WBC RBC Hgb Hct MCV MCH MCHC RDW Plt Count MPV Neutrophils % Lymphocytes % Monocytes % Eosinophils % Basophils % PT with INR INR Puncture Site Right radial ABG pH 7.42 ABG pCO2 at Pt Temp 56.9 H ABG pO2 at Pt Temp 126.0 H ABG HCO3 36.8 H ABG O2 Sat (Measured) 98.8 ABG O2 Content No Result Required. ABG Base Excess 10.7 H Tanner Test Positive Oxygen Flow Rate Yes Sodium 141 Potassium 4.8 Chloride 98 Carbon Dioxide 35 H Anion Gap 8 BUN 29 H Creatinine 0.9 Creat Clearance w eGFR > 60 POC Glucometer 357 Random Glucose Calcium 8.9 Phosphorus 3.9 Magnesium 1.8 Total Bilirubin 0.3 D AST 13 L ALT 17 Alkaline Phosphatase 97 Creatine Kinase Troponin I B-Natriuretic Peptide Total Protein 6.8 Albumin 2.7 L Total Amylase Lipase Acetone, Qual Blood Type Antibody Screen 08/29/17 07:50 WBC RBC Hgb Hct MCV MCH MCHC RDW Plt Count MPV Neutrophils % Lymphocytes % Monocytes % Eosinophils % Basophils % PT with INR INR Puncture Site ABG pH ABG pCO2 at Pt Temp ABG pO2 at Pt Temp ABG HCO3 ABG O2 Sat (Measured) ABG O2 Content ABG Base Excess Tanner Test Oxygen Flow Rate Sodium Potassium Chloride Carbon Dioxide Anion Gap BUN Creatinine Creat Clearance w eGFR POC Glucometer Random Glucose Calcium Phosphorus Magnesium Total Bilirubin AST ALT Alkaline Phosphatase Creatine Kinase 23 L Troponin I < 0.02 B-Natriuretic Peptide Total Protein Albumin Total Amylase Lipase Acetone, Qual Blood Type Antibody Screen Physical Exam: AND , looks ill. AAOx3. pleasant MMM. slightly congested oropharynx. CV: RRR, slightly tachy Lungs : fine crackles at both lungs wilhelm , worse in lower wilhelm. Ext: no edema or erythema. L foot drop. Abd: soft, TTP i n epigastric area , no rebound tenderness or guarding . RUQ metalic object felt Neuro: EOMI, round equal pupils reactive to light , symmetric face, EOMI. uvula and tongue at mid line. nl facial sensation . strength : 5/5 in R shoulder shrug, abduction , biceps and triceps . nl hand data processing manager LUE : 4/5 shoulder shrug, 5/5 abduction , biceps and triceps . nl hand data processing manager RLE : 5/5 in hip flexion , knee flexion and extension , ankle dorsiflexion and planter flexion . LLE: 0/5 in hip flexion , knee flexion and extension . ankle dorsiflexion and planter flexion . Imaging: cxray image and report reviewed. CT chest image reviewed. Assessment/Plan: Unfortunate 62 y/o lady with h/o sarcoidosis, cardiac saccoidosis, , COPD , s/p PPM , HTN, HL, 4 l of O2, A fib, DM, h/o PNA , h/o DVT, recent Flu A 04/29and other medical problems who was d/c from [place] few days ago and presented with worsening SOB and cough with green sputum production , and was found to have b/ l PNA 1- B/L Pneumonia. with productive cough , mild leukocytosis. can't r/o worsening sarcoidosis zane her steroids dose is lower now. need to r/o viral. recently dc frm [facility] - cont aztreonam. PCN allergy - currently on doxy, might use vanco depending on ID Recs - follow cultures - add flu swab - add mucomyst Nebs - CP is related to cough. EKLG this am withno acute iscehmic changes compared to 04/29 . trop pending - cont Nebs 2- Pulmonary sacrcoidosis: - cont her prednisone at 30 mg daily - Pulm consult - Nebs 3- Cardiac sarcoidosis: - s/p PPM - cont lasix. watch volume status . elevated BUN might be related to steroids 4- h/o A fib: - cont cardizem. - cont eliquis 5- h/o DVT : cont elipuis 6- chronic pain. cont morphine DVT prophylaxis : eliquis Visit type - Emergency Visit Emergency Visit: Yes ED Registration Date: 08/29/17 Care time: The patient presented to the Emergency Department on the above date and was hospitalized for further evaluation of their emergent condition. - New Patient This patient is new to me today: Yes Date on this admission: 08/29/17 - Critical Care Critical Care patient: No
[2017-08-29 09:06] LABS: BASO % 0.1 % (0-2.0); HEMATOCRIT 33.1 % (32.4-45.2); HEMOGLOBIN 10.5 GM/dL (10.7-15.3); LYMPH % 8.9 % (8-40); MCH 27.7 pg (25.7-33.7); MCHC 31.7 g/dl (32.0-36.0); MEAN CELL VOLUME 87.3 fl (80-96); MEAN PLT VOLUME 8.4 fl (7.5-11.1); MONO % 0.6 % (3.8-10.2); NEUT % 90.4 % (42.8-82.8); PLATELET COUNT 282 K/MM3 (134-434); RBC 3.79 M/mm3 (3.60-5.2); RDW 15.6 % (11.6-15.6); WHITE BLOOD COUNT 9.1 K/mm3 (4.0-10.0)
[2017-08-29] MEDS ORDERED: PT OWN MED DRAWER 7, Y5N ONE ×2 (09:52→20:04)
[2017-08-29] MEDS: morphine SULFATE IMMEDIATE RELEASE 30 MG TAB PO SCH ×2 (09:56→21:25)
[2017-08-29] MEDS: PANTOPRAZOLE 40 MG TABLET (FP) PO SCH (09:56)
[2017-08-29] MEDS: PREGABALIN 75 MG CAPSULE PO SCH ×2 (09:58→21:23)
[2017-08-29] MEDS: SENNOSIDES/DOCUSATE COMBO (SENNA PLUS) TABLET (UD) PO SCH ×2 (09:58→21:22)
[2017-08-29] MEDS: FERROUS SO4 325 MG TABLET (FP) PO SCH (09:58)
[2017-08-29] MEDS: FLUTICASONE/SALMETEROL 100 MCG/50 MCG DISKUS IH SCH ×2 (09:59→21:24)
[2017-08-29] MEDS: APIXABAN 5 MG TABLET PO SCH ×2 (09:59→21:39)
[2017-08-29] MEDS ORDERED: morphine SO4 SUSTAINED ACTING 15 MG TABLET.SA PO SCH (10:00)
[2017-08-29] MEDS ORDERED: TIOTROPIUM BROMIDE 18 MCG CAPSULES IH SCH (10:00)
[2017-08-29] MEDS ORDERED: FUROSEMIDE 40 MG TABLET (FP) PO SCH (10:00)
[2017-08-29] MEDS: NYSTATIN 100000 UNIT/GM TOPICAL OINTMENT 15 GM TUBE TP SCH ×2 (10:00→21:23)
[2017-08-29] MEDS ORDERED: LISINOPRIL 10 MG TABLET (FP) PO SCH (10:00)
[2017-08-29] MEDS: predniSONE 10 MG TABLET (UD) PO SCH (10:14)
[2017-08-29] MEDS: DOXYCYCLINE INJECTION 100 MG in DEXTROSE 5%-WATER 100 ML IVPB SCH ×2 (11:16→21:40)
[2017-08-29] MEDS: POLYETHYLENE GLYCOL 3350 119 GM BTL PO SCH (11:16)
[2017-08-29] MEDS ORDERED: INSULIN (NOVOLOG) ASPART 100 UNITS/ML 10ML VIAL ONE (11:36)
--- NOTE | 2017-08-29 12:10 | CON.PULM ---
Consult Consult Specialty:: Pulmonary Referred by:: ANNE-MARIE Reason for Consultation:: SOB/COUGH - History of Present Illness Chief Complaint: SOB/COUGH History of Present Illness: The patient is a 62 year old female with a significant past medical history of asthma, atrial fibrillation, COPD (on 4L of oxygen), sarcoidosis, diabetes, hypertension, and hyperlipidemia who presents to the emergency department for evaluation of shortness of breath. The patient reports episode of increasing shortness of breath since yesterday. She reports mild midsternal chest pain with no radiation. The patient reports associated symptoms of productive cough with green sputum, chills, and nausea (nausea began on ). She reports a lack of appetite. The patient reports taking 2 nebulizer treatments, albuterol, and prednisone (30mg) today prior to arrival in emergency department. The patient is unable to ambulate, currently using a wheelchair. Of note, the patient was recently [facility] under the care of Dr. Fuchs. She was able to remain home for three days before she decompensated. She does not have portable o2 at home. She is well known by our service from visits in SNF. - History Source History Provided By: Patient, Medical Record Limitations to Obtaining History: Clinical Condition - Past Medical History AR MANAGER: Yes: Dementia Cardio/Vascular: Yes: CHF Pulmonary: Yes: COPD, O2 Dependent, Pulmonary Fibrosis, Other (SARCOID) Gastrointestinal: No: Ascites Hepatobiliary: No: Cirrhosis Renal/: No: Renal Failure Reproductive: Yes: Postmenopausal ...: No Heme/Onc: Yes: Anemia Infectious Disease: No: AIDS Psych: No: Addictions Musculoskeletal: Yes: Chronic low back pain - Alcohol/Substance Use Hx Alcohol Use: No - Smoking History Smoking history: Former smoker Have you smoked in the past 12 months: No Home Medications - Allergies Allergies/Adverse Reactions: Allergies Allergy/AdvReac Type Severity Reaction Status Date / Time amoxicillin [From Augmentin] Allergy Verified 08/28/17 19:10 aspirin Allergy Verified 08/28/17 19:10 bacitracin Allergy Verified 08/28/17 19:10 ciprofloxacin [From Cipro] Allergy Verified 08/28/17 19:10 clavulanic acid Allergy Verified 08/28/17 19:10 [From Augmentin] codeine Allergy Verified 08/28/17 19:10 ketorolac [From Toradol] Allergy Verified 08/28/17 19:10 levofloxacin [From Levaquin] Allergy Verified 08/28/17 19:10 metronidazole [From Flagyl] Allergy Verified 08/28/17 19:10 nalbuphine [From Nubain] Allergy Verified 08/28/17 19:10 Family Disease History - Family Disease History Family History: Unremarkable Review of Systems - Review of Systems Constitutional: reports: Lethargy, Night Sweats. denies: Fever Eyes: denies: Blind Spots HENT: denies: Difficult Swallowing Neck: reports: Decreased ROM Cardiovascular: reports: Shortness of Breath. denies: Chest Pain Respiratory: reports: Cough, Exercise Intolerance, Orthopnea, SOB, SOB on Exertion, Wheezing. denies: Hemoptysis Gastrointestinal: denies: Abdominal Pain Genitourinary: denies: Burning Physical Exam Vital Sings: Vital Signs Temperature 98.5 F 08/29/17 05:49 Pulse Rate 104 H 08/29/17 07:55 Respiratory Rate 28 H 08/29/17 05:49 Blood Pressure 129/76 08/29/17 07:55 O2 Sat by Pulse Oximetry (%) 99 08/29/17 07:48 Constitutional: Yes: Calm Eyes: Yes: Conjunctiva Clear HENT: Yes: Normocephalic Neck: Yes: Trachea Midline Cardiovascular: Yes: Regular Rate and Rhythm, S1, S2 Respiratory: Yes: Rales, Rhonchi Gastrointestinal: Yes: Normal Bowel Sounds, Soft, Abdomen, Obese Edema: LLE: 1+, RLE: 1+ Integumentary: Yes: WNL Neurological: Yes: Alert Labs: CBC, BMP 08/29/17 07:00 08/29/17 06:00 ABG Results ABG pH 7.42 (7.35-7.45) 08/28/17 23:40 ABG pCO2 at Pt Temp 56.9 mmHg (35-45) H 08/28/17 23:40 ABG pO2 at Pt Temp 126.0 mmHg (80-100) H 08/28/17 23:40 ABG HCO3 36.8 meq/L (22-26) H 08/28/17 23:40 ABG O2 Sat (Measured) 98.8 % (90-98.9) 08/28/17 23:40 ABG O2 Content No Result Required. 08/28/17 23:40 ABG Base Excess 10.7 meq/l (-2-2) H 08/28/17 23:40 REST REVIEWED Imaging - Results Chest X-ray: Report Reviewed, Image Reviewed Cat Scan: Report Reviewed, Image Reviewed Problem List - Problems (1) COPD exacerbation Code(s): J44.1 - CHRONIC OBSTRUCTIVE PULMONARY DISEASE W (ACUTE) EXACERBATION (2) Pneumonia Code(s): J18.9 - PNEUMONIA, UNSPECIFIED ORGANISM Qualifiers: Pneumonia type: due to unspecified organism Laterality: unspecified laterality Lung location: upper lobe of lung Qualified Code(s): J18.1 - Lobar pneumonia, unspecified organism (3) Sarcoidosis Code(s): D86.9 - SARCOIDOSIS, UNSPECIFIED (4) Interstitial pulmonary fibrosis Code(s): J84.10 - PULMONARY FIBROSIS, UNSPECIFIED (5) Oxygen dependent Code(s): Z99.81 - DEPENDENCE ON SUPPLEMENTAL OXYGEN Assessment/Plan 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
[2017-08-29] MEDS: CALCIUM CARBONATE 650 MG TABLET PO SCH (15:29)
--- NOTE | 2017-08-29 17:59 | HOSP ---
Physical Examination Vital Signs: Vital Signs Temperature 98.2 F 08/29/17 16:45 Pulse Rate 84 08/29/17 17:20 Respiratory Rate 20 08/29/17 16:45 Blood Pressure 107/73 08/29/17 17:20 O2 Sat by Pulse Oximetry (%) 94 L 08/29/17 09:00 Labs: CBC, BMP 08/29/17 07:00 08/29/17 06:00 Hospitalist Encounter Assessment: Was called to see pt because of episode of lightheadedness. Per nurse, pt complained of feeling lightheaded while lying in bed. Vitals were taken, BP was 100/48 sitting. Then 89/54 supine. Then 100/73 supine. Went to see the pt with attending. Pt felt a little better at that time. Jennifer. Chantelle consulted. Repeat BNP ordered. Visit type - Emergency Visit Emergency Visit: No - New Patient This patient is new to me today: Yes Date on this admission: 08/29/17 - Critical Care Critical Care patient: No
[2017-08-29] MEDS: ATORVASTATIN CA 10 MG TABLET (FP) PO SCH (21:24)
[2017-08-29] MEDS: MONTELUKAST NA 10 MG TABLET PO SCH (21:24)
[2017-08-29] MEDS: SENNOSIDES 8.6MG TABLET (FP) PO SCH (21:24)
[2017-08-29] MEDS: AZTREONAM 2 GM in DEXTROSE 5%-WATER - 100 ML IVPB SCH (22:59)
[2017-08-30] MEDS: VANCOMYCIN 1,000 MG in DEXTROSE 5%-WATER - 250 ML IVPB ONE ×2 (00:36)
[2017-08-30] MEDS: NYSTATIN 500,000 UNITS/5 ML SUSPENSION PO SCH ×4 (00:37→18:19)
[2017-08-30] MEDS: AZTREONAM 2 GM in DEXTROSE 5%-WATER - 100 ML IVPB SCH (06:21)
[2017-08-30] MEDS: INSULIN (LEVEMIR) 100 UNITS/ML UNITS SQ SCH ×2 (06:22→21:39)
[2017-08-30] MEDS: INSULIN SLIDING SCALE (NOVOLOG) 1 VIAL SQ SCH ×3 (06:23→18:15)
[2017-08-30] MEDS: METOCLOPRAMIDE HCL 10 MG TABLET (FP) PO SCH ×3 (06:24→18:20)
[2017-08-30] MEDS: ALBUTEROL SO4 2.5/IPRATROPIUM 0.5 INH SOL 3 ML VIAL.NEB. NEB SCH ×3 (07:32→21:30)
[2017-08-30] MEDS ORDERED: AZTREONAM 2 GM in DEXTROSE 5%-WATER 100 ML IVPB SCH ×2 (07:46→10:00)
[2017-08-30 08:12] LABS: HEMOGLOBIN 10.4 GM/dL (10.7-15.3); MCH 28.2 pg (25.7-33.7); MCHC 32.4 g/dl (32.0-36.0); MEAN CELL VOLUME 86.9 fl (80-96); PLATELET COUNT 285 K/MM3 (134-434); RBC 3.69 M/mm3 (3.60-5.2); RDW 15.4 % (11.6-15.6); WHITE BLOOD COUNT 10.5 K/mm3 (4.0-10.0)
[2017-08-30 08:33] LABS: CHLORIDE 98 mmol/L (98-107); POTASSIUM 3.7 mmol/L (3.5-5.1); SODIUM 139 mmol/L (136-145)
[2017-08-30 08:48] LABS: ANION GAP 5 (8-16); BLOOD UREA NITROGEN 28 mg/dL (7-18); CALCIUM 9.1 mg/dL (8.5-10.1); CO2 36 mmol/L (21-32); CREATININE 0.7 mg/dL (0.55-1.02); GLUCOSE,RANDOM 116 mg/dL (74-106)
--- NOTE | 2017-08-30 09:15 | PN ---
Progress Note, Physician Chief Complaint: Well known to me from office, multiple hospitalizations. History of Present Illness: 62 year old female with a significant past medical history of asthma, DVT, COPD (on 4L of oxygen), sarcoidosis,ICD for cardiac sarcoid/VT diabetes, hypertension, and hyperlipidemia who presents to the emergency department for evaluation of shortness of breath. The patient reports episode of increasing shortness of breath since yesterday. She reports mild midsternal chest pain with no radiation. The patient reports associated symptoms of productive cough with green sputum, chills, and nausea (nausea began on ). She reports a lack of appetite. The patient reports taking 2 nebulizer treatments, albuterol, and prednisone (30mg) today prior to arrival in emergency department. The patient is unable to ambulate, currently using a wheelchair. Of note, the patient was recently discharged from skilled nursing on under the care of Dr. Fuchs. She was able to remain home for three days before she decompensated. She does not have portable o2 at home. She is well known by our service from visits in SNF. She was seen by pulmonary, cultured. Started on therapy for possible PNA seen on CT. Also receiving steroids. Was initially diuresed, but lasix now held for low BP. - Current Medication List Current Medications: Active Medications Acetylcysteine (Mucomyst 20 Oral / Inh Use Only*) 600 mg NEB BID PRN PRN Reason: Dyspnea Albuterol Sulfate (Ventolin 0.083% Nebulizer Soln -) 1 amp NEB Q4H PRN PRN Reason: SHORT OF BREATH/WHEEZING Last Admin: 08/29/17 07:24 Dose: 1 amp Albuterol/Ipratropium (Duoneb -) 1 amp NEB RTID [facility] Last Admin: 08/30/17 07:32 Dose: 1 amp Apixaban (Eliquis -) 5 mg PO BID [facility] Last Admin: 08/29/17 21:39 Dose: 5 mg Atorvastatin Calcium (Lipitor -) 10 mg PO HS [facility] Last Admin: 08/29/17 21:24 Dose: 10 mg Calcium Carbonate (Calcium Carbonate -) 650 mg PO DAILY [facility] Last Admin: 08/29/17 15:29 Dose: 650 mg Ferrous Sulfate (Feosol -) 325 mg PO DAILY [facility] Last Admin: 08/29/17 09:58 Dose: 325 mg Doxycycline Hyclate 100 mg/ (Dextrose) 100 mls @ 50 mls/hr IVPB BID [facility] Last Admin: 08/29/17 21:40 Dose: 50 mls/hr Vancomycin HCl 1,000 mg/ (Dextrose) 250 mls @ 166.667 mls/hr IVPB Q12H [facility] PRN Reason: Protocol Aztreonam 2 gm/ Dextrose 100 mls @ 100 mls/hr IVPB Q8H [facility] PRN Reason: Protocol Aztreonam 2 gm/ Dextrose 100 mls @ 100 mls/hr IVPB Q8H-IV [facility] Stop: 08/31/17 09:59 Insulin Aspart (Novolog Vial Sliding Scale -) 1 vial SQ TIDAC [facility] PRN Reason: Protocol Last Admin: 08/30/17 06:23 Dose: 6 unit Insulin Detemir (Levemir Vial) 50 units SQ [facility] Last Admin: 08/29/17 21:36 Dose: 50 units Insulin Detemir (Levemir Vial) 20 units SQ DAILY@0700 [facility] Last Admin: 08/30/17 06:22 Dose: 20 unit Metoclopramide HCl (Reglan -) 5 mg PO TIDAC [facility] Last Admin: 08/30/17 06:24 Dose: 5 mg Montelukast Sodium (Singulair -) 10 mg PO [facility] Last Admin: 08/29/17 21:24 Dose: 10 mg Morphine Sulfate (Msir -) 15 mg PO BID [facility] Last Admin: 08/29/17 21:25 Dose: 15 mg Nystatin (Mycostatin Ointment -) 1 applic TP BID [facility] Last Admin: 08/29/17 21:23 Dose: 1 applic Nystatin (Nystatin Oral Suspension -) 500,000 units PO Q6HPO [facility] Last Admin: 08/30/17 05:36 Dose: Not Given Pantoprazole Sodium (Protonix -) 40 mg PO DAILY [facility] Last Admin: 08/29/17 09:56 Dose: 40 mg Polyethylene Glycol (Miralax (For Daily Use) -) 17 gm PO DAILY [facility] Last Admin: 08/29/17 11:16 Dose: 17 gm Prednisone (Deltasone -) 30 mg PO DAILY [facility] Last Admin: 08/29/17 10:14 Dose: 30 mg Pregabalin (Lyrica -) 75 mg PO BID [facility] Last Admin: 08/29/17 21:23 Dose: 75 mg Fluticasone/Salmeterol (Advair 100mcg/50mcg -) 1 puff IH BID [facility] Last Admin: 08/29/17 21:24 Dose: 1 puff Senna (Senna -) 1 tab PO HS [facility] Last Admin: 08/29/17 21:24 Dose: 1 tab Senna/Docusate Sodium (Pericolace -) 1 tablet PO BID [facility] Last Admin: 08/29/17 21:22 Dose: 1 tablet - Objective Vital Signs: Vital Signs Temperature 97.6 F 08/30/17 05:00 Pulse Rate 91 H 08/30/17 05:00 Respiratory Rate 20 08/30/17 05:00 Blood Pressure 90/63 08/30/17 05:00 O2 Sat by Pulse Oximetry (%) 95 08/30/17 04:30 Constitutional: Yes: No Distress Eyes: Yes: Conjunctiva Clear Cardiovascular: Yes: Regular Rate and Rhythm Respiratory: Yes: Rhonchi Gastrointestinal: Yes: Soft Edema: No Neurological: Yes: Alert, Oriented Labs: CBC, BMP 08/30/17 07:35 08/30/17 07:35 INR, PTT INR 1.14 (0.82-1.09) 08/28/17 21:51 Microbiology 08/29/17 07:45 Blood - Peripheral Venous Blood Culture - Preliminary NO GROWTH OBTAINED AFTER 24 HOURS, INCUBATION TO CONTINUE FOR 4 DAYS. 08/29/17 06:00 Blood - Peripheral Venous Blood Culture - Preliminary NO GROWTH OBTAINED AFTER 24 HOURS, INCUBATION TO CONTINUE FOR 4 DAYS. Laboratory Tests 08/30/17 08/30/17 07:35 07:35 WBC 10.5 H Hgb 10.4 L Plt Count 285 Sodium 139 Potassium 3.7 BUN 28 H Creatinine 0.7 - ....Imaging Cat Scan: Report Reviewed EKG: Image Reviewed Assessment/Plan IMP: Sarcoidosis w/ cardiac involvement (MRI) Chronic lung disease Suspected PNA H/o VT, syncope s/p ICD H/o DVT REC: 1. Rx of possible PNA as per pulmonary: abx, supplimental O2, steroid taper 2.Cont Eliquis (h/o DVT); will need to clarify h/o PAF? and why on Cardizem 3. Agree with holding diuretic and Cardizem as BP is running low. Will follow.
[2017-08-30] MEDS ORDERED: SODIUM CHLORIDE NASAL SPRAY 44 ML BOTTLE NS PRN (10:18)
--- NOTE | 2017-08-30 10:26 | PN ---
Progress Note (short form) - Note Progress Note: PULMONARY Breathing slightly better. +cough and wheezing. +chills. Last Vital Signs Temp Pulse Resp BP Pulse Ox 97.6 F 91 H 20 90/63 95 08/30/17 05:00 08/30/17 05:00 08/30/17 05:00 08/30/17 05:00 08/30/17 04:30 Gen: shaking Heart: RRR Lung: bilateral rales, rhonchi Abd: soft, nontender Ext: no edema CBC, BMP 08/30/17 07:35 08/30/17 07:35 Active Medications Acetylcysteine (Mucomyst 20 Oral / Inh Use Only*) 600 mg NEB BID PRN PRN Reason: Dyspnea Albuterol Sulfate (Ventolin 0.083% Nebulizer Soln -) 1 amp NEB Q4H PRN PRN Reason: SHORT OF BREATH/WHEEZING Last Admin: 08/29/17 07:24 Dose: 1 amp Albuterol/Ipratropium (Duoneb -) 1 amp NEB RTID [facility] Last Admin: 08/30/17 07:32 Dose: 1 amp Apixaban (Eliquis -) 5 mg PO BID [facility] Last Admin: 08/29/17 21:39 Dose: 5 mg Atorvastatin Calcium (Lipitor -) 10 mg PO HS [facility] Last Admin: 08/29/17 21:24 Dose: 10 mg Calcium Carbonate (Calcium Carbonate -) 650 mg PO DAILY [facility] Last Admin: 08/29/17 15:29 Dose: 650 mg Ferrous Sulfate (Feosol -) 325 mg PO DAILY [facility] Last Admin: 08/29/17 09:58 Dose: 325 mg Doxycycline Hyclate 100 mg/ (Dextrose) 100 mls @ 50 mls/hr IVPB BID [facility] Last Admin: 08/29/17 21:40 Dose: 50 mls/hr Vancomycin HCl 1,000 mg/ (Dextrose) 250 mls @ 166.667 mls/hr IVPB Q12H [facility] PRN Reason: Protocol Aztreonam 2 gm/ Dextrose 100 mls @ 100 mls/hr IVPB Q8H [facility] PRN Reason: Protocol Aztreonam 2 gm/ Dextrose 100 mls @ 100 mls/hr IVPB Q8H-IV [facility] Stop: 08/31/17 09:59 Insulin Aspart (Novolog Vial Sliding Scale -) 1 vial SQ TIDAC [facility] PRN Reason: Protocol Last Admin: 08/30/17 06:23 Dose: 6 unit Insulin Detemir (Levemir Vial) 50 units SQ [facility] Last Admin: 08/29/17 21:36 Dose: 50 units Insulin Detemir (Levemir Vial) 20 units SQ DAILY@0700 [facility] Last Admin: 08/30/17 06:22 Dose: 20 unit Metoclopramide HCl (Reglan -) 5 mg PO TIDAC [facility] Last Admin: 08/30/17 06:24 Dose: 5 mg Montelukast Sodium (Singulair -) 10 mg PO HS [facility] Last Admin: 08/29/17 21:24 Dose: 10 mg Morphine Sulfate (Msir -) 15 mg PO BID [facility] Last Admin: 08/29/17 21:25 Dose: 15 mg Nystatin (Mycostatin Ointment -) 1 applic TP BID [facility] Last Admin: 08/29/17 21:23 Dose: 1 applic Nystatin (Nystatin Oral Suspension -) 500,000 units PO Q6HPO [facility] Last Admin: 08/30/17 05:36 Dose: Not Given Pantoprazole Sodium (Protonix -) 40 mg PO DAILY [facility] Last Admin: 08/29/17 09:56 Dose: 40 mg Polyethylene Glycol (Miralax (For Daily Use) -) 17 gm PO DAILY [facility] Last Admin: 08/29/17 11:16 Dose: 17 gm Prednisone (Deltasone -) 30 mg PO DAILY [facility] Last Admin: 08/29/17 10:14 Dose: 30 mg Pregabalin (Lyrica -) 75 mg PO BID [facility] Last Admin: 08/29/17 21:23 Dose: 75 mg Fluticasone/Salmeterol (Advair 100mcg/50mcg -) 1 puff IH BID [facility] Last Admin: 08/29/17 21:24 Dose: 1 puff Senna (Senna -) 1 tab PO [facility] Last Admin: 08/29/17 21:24 Dose: 1 tab Senna/Docusate Sodium (Pericolace -) 1 tablet PO BID [facility] Last Admin: 08/29/17 21:22 Dose: 1 tablet Sodium Chloride ([place]al [place] -) 2 spray NS BID PRN PRN Reason: NASAL CONGESTION A/P Pneumonia Chronic Hypoxic and Hypercapneic Respiratory Failure Pulmonary and Cardiac Sarcoidosis COPD h/o DVT h/o VT s/p ICD - continue antibiotics - continue prednisone - inhaled bronchodilators - O2 to keep SpO2 >90% - continue anticoagulation
[2017-08-30] MEDS: predniSONE 10 MG TABLET (UD) PO SCH (10:44)
[2017-08-30] MEDS: PREGABALIN 75 MG CAPSULE PO SCH ×2 (10:45→21:38)
[2017-08-30] MEDS: PANTOPRAZOLE 40 MG TABLET (FP) PO SCH (10:45)
[2017-08-30] MEDS: FERROUS SO4 325 MG TABLET (FP) PO SCH (10:45)
[2017-08-30] MEDS: morphine SULFATE IMMEDIATE RELEASE 30 MG TAB PO SCH ×2 (10:45→21:38)
[2017-08-30] MEDS: SENNOSIDES/DOCUSATE COMBO (SENNA PLUS) TABLET (UD) PO SCH ×2 (10:45→21:38)
[2017-08-30] MEDS ORDERED: PT OWN MED DRAWER 7, Y5N ONE ×5 (11:38→23:52)
[2017-08-30] MEDS: FLUTICASONE/SALMETEROL 100 MCG/50 MCG DISKUS IH SCH ×2 (11:46→21:38)
[2017-08-30] MEDS: CALCIUM CARBONATE 650 MG TABLET PO SCH (11:47)
[2017-08-30] MEDS: APIXABAN 5 MG TABLET PO SCH ×2 (11:47→21:38)
[2017-08-30] MEDS: DOXYCYCLINE INJECTION 100 MG in DEXTROSE 5%-WATER 100 ML IVPB SCH (11:48)
[2017-08-30] MEDS: AZTREONAM 1 GM in DEXTROSE 5%-WATER - 50 ML IVPB SCH ×2 (13:29→21:37)
[2017-08-30] MEDS: NYSTATIN 100000 UNIT/GM TOPICAL OINTMENT 15 GM TUBE TP SCH ×2 (13:30→21:39)
--- NOTE | 2017-08-30 13:51 | PN ---
Progress Note (short form) - Note Progress Note: ID Consult dictated Bilateral pneumonia Exacerbation COPD/ sarcoidosis Multiple antibiotic allergies Pending c/s empiric vancomycin/ aztreonam/ doxycycline Steroids/ bronchodilators
--- NOTE | 2017-08-30 14:47 | PN ---
Teaching Attending Note Name of Resident: Mat Weston ATTENDING PHYSICIAN STATEMENT I saw and evaluated the patient. I reviewed the resident's note and discussed the case with the resident. I agree with the resident's findings and plan as documented. SUBJECTIVE: No fever or chills. cont to have same SOB. cough with green sputum production. OBJECTIVE: NAD. AAOx3. pleasant MMM. slightly congested oropharynx. CV: RRR Lungs : fine crackles at both lungs [place] , worse in lower [place]. Ext: no edema or erythema. L foot drop. Abd: soft, TTP in epigastric area, no rebound tenderness or guarding . RUQ metalic object felt Assessment/Plan: Unfortunate 62 y/o lady with h/o sarcoidosis, cardiac sarcoidosis, COPD , s/p PPM , HTN, HL, 4 l of O2, DM, h/o PNA , h/o DVT, recent Flu A 04/29 and other medical problems who was d/c from [place] few days prior and presented with worsening SOB and cough with green sputum production , and was found to have b/ l PNA 1- B/L Pneumonia. neg rapid flue test - aztreonam vanco and doxy - follow cultures - mucomyst and Duo-Nebs 2- Pulmonary sacrcoidosis: - cont her prednisone at 30 mg daily - Pulm consult - Nebs 3- Cardiac sarcoidosis: - s/p PPM - lasix on hold due to hypotensive, - records reviewed. was dc'd on lasix 20 in . now comes back with lasix 40 . will confirm with card 4- H/o tachycardia during last admission. no Afib was documented ( records reviewed) . was started on cardizem in [place] followed by card after dc. no change was made to her meds - cardizem on hold now as hypotensive 5- h/o DVT : cont elipuis 6- Chronic pain. cont morphine 7- h/o HTN: now hypotensive. dc DVT prophylaxis: eliquis
[2017-08-30] MEDS: POLYETHYLENE GLYCOL 3350 119 GM BTL PO SCH (15:24)
--- NOTE | 2017-08-30 16:13 | PN ---
Physical Exam: SUBJECTIVE: Briefly, 62yo F with history of COPD (baseline 4L O2), diastolic CHF, sarcoidosis and multiple of medical problems who presented to the hospital with worsening shortness of breath that was not alleviated by extra Prednisone and her inhalers. 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 Currently, pt reports being short of breath, however may be slightly improved compared to admission. She continues to have greenish sputum production and pleuritic chest pain with cough and deep inspiration. She states she's been using her BiPap at night which has been helping her. OBJECTIVE: Vital Signs Period Temp Pulse Resp BP Sys/Londono Pulse Ox Last 24 Hr 97.6 F-98.2 F 84-96 20-20 89-108/46-73 94-95 GENERAL: Mild distress, awake, alert, and fully oriented, sitting in bed HEENT: EOMI, JAMES, dry mucosa, lepe neck without JVD noted LUNGS: Diffuse crackles throughout with rhonchi at bases noted. No accessory muscle use. HEART: RRR, S1, S2 without murmur ABDOMEN: Soft, normoactive BS, nondistended, tenderness noted in upper quadrants close to diaphragm, no guarding. Mass in RUQ hard to touch EXTREMITIES: 2+ pulses, warm, no edema. SKIN: Warm, dry, no rashes or lesions noted Laboratory Results - last 24 hr 08/29/17 08/29/17 08/29/17 16:27 19:25 21:35 WBC RBC Hgb Hct MCV MCH MCHC RDW Plt Count MPV Total Counted Neutrophils % Neutrophils % (Manual) Band Neutrophils % Lymphocytes % Lymphocytes % (Manual) Monocytes % (Manual) Sodium Potassium Chloride Carbon Dioxide Anion Gap BUN Creatinine POC Glucometer 232 332 Random Glucose Calcium B-Natriuretic Peptide 96.22 08/30/17 08/30/17 08/30/17 05:46 07:35 07:35 WBC 10.5 H RBC 3.69 Hgb 10.4 L Hct 32.0 L MCV 86.9 MCH 28.2 MCHC 32.4 RDW 15.4 Plt Count 285 MPV 8.0 Total Counted 100 Neutrophils % No Result Required. Neutrophils % (Manual) 69.0 Band Neutrophils % 2.0 Lymphocytes % No Result Required. Lymphocytes % (Manual) 22.0 Monocytes % (Manual) 7 Sodium 139 Potassium 3.7 Chloride 98 Carbon Dioxide 36 H Anion Gap 5 L BUN 28 H Creatinine 0.7 POC Glucometer 202 Random Glucose 116 H Calcium 9.1 B-Natriuretic Peptide Active Medications Generic Name Dose Route Start Last Admin Trade Name Freq PRN Reason Stop Dose Admin Acetylcysteine 600 mg 08/29/17 08:26 Mucomyst 20 Oral / Inh Use Only* NEB BID PRN Dyspnea Albuterol Sulfate 1 amp 08/29/17 02:37 08/29/17 07:24 Ventolin 0.083% Nebulizer Soln - NEB 1 amp Q4H PRN Administration SHORT OF BREATH/WHEEZING Albuterol/Ipratropium 1 amp 08/29/17 08:00 08/30/17 14:10 Duoneb - NEB 1 amp RTID EYAL Administration Apixaban 5 mg 08/29/17 10:00 08/30/17 11:47 Eliquis - PO 5 mg BID EYAL Administration Atorvastatin Calcium 10 mg 08/29/17 22:00 08/29/17 21:24 Lipitor - PO 10 mg HS EYAL Administration Calcium Carbonate 650 mg 08/29/17 10:00 08/30/17 11:47 Calcium Carbonate - PO 650 mg DAILY EYAL Administration Ferrous Sulfate 325 mg 08/29/17 10:00 08/30/17 10:45 Feosol - PO 325 mg DAILY EYAL Administration Doxycycline Hyclate 100 mg/ 100 mls @ 50 mls/hr 08/29/17 10:00 08/30/17 11:48 Dextrose IVPB 50 mls/hr BID EYAL Administration Vancomycin HCl 1 gm in 200 mls @ 133.333 mls/hr 08/30/17 12:00 Vancomycin 1 Gm Premix - IVPB Q12H EYAL Protocol Aztreonam 1 gm/ Dextrose 50 mls @ 100 mls/hr 08/30/17 11:30 08/30/17 13:29 IVPB 100 mls/hr Q8H-IV EYAL Administration Protocol Insulin Aspart 1 vial 08/29/17 07:00 08/30/17 11:30 Novolog Vial Sliding Scale - SQ Not Given TIDAC [facility] Protocol Insulin Detemir 50 units 08/29/17 22:00 08/29/17 21:36 Levemir Vial SQ 50 units HS EYAL Administration Insulin Detemir 20 units 08/29/17 07:00 08/30/17 06:22 Levemir Vial SQ 20 unit DAILY@0700 [facility]AL Administration Methylprednisolone Sodium Succinate 40 mg 08/30/17 18:00 Solu-Medrol - IVPUSH Q8H-IV EYAL Metoclopramide HCl 5 mg 08/29/17 07:00 08/30/17 11:50 Reglan - PO 5 mg TIDAC [facility] Administration Montelukast Sodium 10 mg 08/29/17 22:00 08/29/17 21:24 Singulair - PO 10 mg HS EYAL Administration Morphine Sulfate 15 mg 08/29/17 10:00 08/30/17 10:45 Msir - PO 15 mg BID EYAL Administration Nystatin 1 applic 08/29/17 10:00 08/30/17 13:30 Mycostatin Ointment - TP 1 applic BID EYAL Administration Nystatin 500,000 units 08/29/17 06:00 08/30/17 13:29 Nystatin Oral Suspension - PO Not Given Q6HPO EYAL Pantoprazole Sodium 40 mg 08/29/17 10:00 08/30/17 10:45 Protonix - PO 40 mg DAILY EYAL Administration Polyethylene Glycol 17 gm 08/29/17 10:00 08/30/17 15:24 Miralax (For Daily Use) - PO 17 gm DAILY EYAL Administration Pregabalin 75 mg 08/29/17 10:00 08/30/17 10:45 Lyrica - PO 75 mg BID EYAL Administration Fluticasone/Salmeterol 1 puff 08/29/17 10:00 08/30/17 11:46 Advair 100mcg/50mcg - IH 1 puff BID EYAL Administration Senna 1 tab 08/29/17 22:00 08/29/17 21:24 Senna - PO 1 tab HS EYAL Administration Senna/Docusate Sodium 1 tablet 08/29/17 10:00 08/30/17 10:45 Pericolace - PO 1 tablet BID EYAL Administration Sodium Chloride 2 spray 08/30/17 10:18 [place] - NS BID PRN NASAL CONGESTION ASSESSMENT/PLAN: 1) Pneumonia, bilaterally --Flu negative --F/u blood cultures ID on board covering for HCAP: --Continue Aztreonam 1gm q8h --Continue Vancomycin 1gm qDaily --Continue Doxycycline 100mg IVPB BID --Continue Albuterol and Mucomyst combo TID 2) Sarcoidosis --Pulmonary --Home medication Prednisone 30mg PO; increase to Medrol 40mg q8h --Pulmonology on board; appreciate recommendations --Continue Duonebs TID --Continue Advair 100/50mcg --Continue Singulair 10mg HS -- --Cardiac --s/p AICD/PPM --Cardiology on board --Hypotension currently holding Lasix; currently clinically dry --Will need to medication reconciliation due to discrepancy of discharge and admission lasix dosages 3) Questionable Atrial fibrillation --Previous records state narrow complex tachycardia, but not truly documented in an EKG --Cardizem on hold due to hypotension; unsure of circumstances of starting cardizem in her long-term 4) History of hypertension --Holding anti-hypertensive medications currently due to hypotension now 5) Chronic pain --Continue MS Contin 15mg PO BID --Continue bowel regiment Pericolace 1 tab PO BID Senna 1 tab PO HS Lyrica 75mg PO BID 6) H/o DVT --Continue Eliquis 5mg PO BID 7) Hyperglycemia -- Levemir 20 U AM and 50 U PM? --ISS --BGM ACHS FEN: Fluids: Avoid for now Electrolyte abnormalities: None currently Nutrition: Diabetic and sodium-controlled diet PPX: DVT - Already on Eliquis GI - Protonix 40mg IVP Dispo: Continue monitoring on M/S Case discussed with Dr. Jaylon Weston, DO - IM PGY-1 Visit type - Emergency Visit Emergency Visit: No - New Patient This patient is new to me today: Yes Date on this admission: 08/30/17 - Critical Care Critical Care patient: No
--- NOTE | 2017-08-30 16:28 | CONS ---
DATE OF CONSULTATION: DATE OF DICTATION: 08/30/2017 HISTORY OF PRESENT ILLNESS: The patient is a 62-year-old female who is evaluated for pneumonia. She has a longstanding history of pulmonary sarcoidosis, COPD, and pulmonary fibrosis. She recently spent a year in a alf facility. She was discharged several weeks ago. Since discharge she has become increasingly short of breath with cough productive of greenish sputum. She also complained of anorexia, nausea, and chills. She had developed these symptoms on August. She used her nebulizers and took prednisone without improvement. She presented to the emergency room on August 28, 2017 and was admitted. A CAT scan of the chest shows bronchiectasis, honeycombing, evidence of pulmonary fibrosis, and superimposed right lower lobe and left lower lobe infiltrates. At the present time she is short of breath at rest on nasal cannula. She denies any hemoptysis. She has been afebrile on steroids. She denies any ill contacts. She has multiple antibiotic allergies. PAST MEDICAL HISTORY: Positive for pulmonary sarcoidosis, pulmonary fibrosis, COPD, asthma, diabetes mellitus, hypertension, hyperlipidemia, gastroesophageal reflux disease, and DVT. PAST SURGICAL HISTORY: Status post AICD, permanent pacemaker, back surgery, and tubal ligation. ALLERGIES: AMOXICILLIN, AUGMENTIN, ASPIRIN, CIPRO, LEVAQUIN, CODEINE, ZITHROMAX, TORADOL, and FLAGYL. 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 SOCIAL HISTORY: A recent resident of a alf facility. She is a former smoker. She is essentially wheelchair bound. REVIEW OF SYSTEMS: Neurologic: No loss of consciousness, seizure activity, or focal weakness. Cardiac: Negative chest pain or palpitations. Respiratory: As per HPI. Gastrointestinal: Positive for gastroesophageal reflux disease. Genitourinary: Negative for urinary tract infection. LABORATORY DATA: White count 10.5, hematocrit 32.0, and platelet count 285. BUN 28, creatinine 0.7. PHYSICAL EXAMINATION: General: She is awake and alert. She is short of breath at rest on nasal cannula in bed, somewhat cushingoid appearing. HEENT: Oropharynx negative. Neck: Supple. Heart: Sounds S1, S2. Lungs: Bilateral rhonchi and crepitations diffusely. Abdomen: Soft. No tenderness elicited. Extremities: Positive for edema. IMPRESSION: 1. Bilateral pneumonia. 2. Exacerbation of chronic obstructive pulmonary disease/sarcoidosis. 3. Multiple antibiotic allergies. Pending cultures, empiric antibiotic coverage in this patient with multiple antibiotic allergies with vancomycin, aztreonam, and doxycycline. Obtain sputum culture, urine Legionella, and pneumococcal antigens. Continue steroids and bronchodilators. Thank you for the kind referral. JOHNNY VELASCO M.D. [id number]
[2017-08-30] MEDS: VANCOMYCIN 1 GM PREMIX - 1 GM/200 ML BAG IVPB SCH (16:49)
[2017-08-30] MEDS: methylPREDNISolone NA SUCC 40 MG/1 ML VIAL IVPUSH SCH (18:20)
[2017-08-30] MEDS: MONTELUKAST NA 10 MG TABLET PO SCH (21:38)
[2017-08-30] MEDS: ATORVASTATIN CA 10 MG TABLET (FP) PO SCH (21:38)
[2017-08-30] MEDS: SENNOSIDES 8.6MG TABLET (FP) PO SCH (21:38)
[2017-08-31] MEDS: NYSTATIN 500,000 UNITS/5 ML SUSPENSION PO SCH ×5 (00:04→17:24)
[2017-08-31] MEDS: DOXYCYCLINE INJECTION 100 MG in DEXTROSE 5%-WATER 100 ML IVPB SCH ×5 (00:04→22:28)
--- NOTE | 2017-08-31 00:11 | EKG ---
Test Reason : Blood Pressure : / mmHG Vent. Rate : 104 BPM Atrial Rate : 104 BPM P-R Int : 128 ms QRS Dur : 068 ms QT Int : 322 ms P-R-T Axes : 029 -03 039 degrees QTc Int : 423 ms SINUS TACHYCARDIA WITH PREMATURE ATRIAL COMPLEXES OTHERWISE NORMAL ECG WHEN COMPARED WITH ECG OF 28-AUG-2017 19:08, NO SIGN FICAN' CHANGS WERE SEEN Confirmed by DANNA SAAB, JEFERSON ([id number]) on 08/31/2017 12:11:31 AM Referred By: Phillip BRUNNER Confirmed By:JEFERSON CLAY MD
--- NOTE | 2017-08-31 00:28 | EKG ---
Test Reason : Blood Pressure : / mmHG Vent. Rate : 112 BPM Atrial Rate : 112 BPM P-R Int : 122 ms QRS Dur : 070 ms QT Int : 314 ms P-R-T Axes : 035 013 040 degrees QTc Int : 428 ms SINUS TACHYCARDIA WITH PREMATURE ATRIAL COMPLEXES OTHERWISE NORMAL ECG NO PREVIOUS ECGS AVAILABLE Confirmed by JEFERSON CLAY MD ([id number]) on 08/31/2017 12:28:34 AM Referred By: Confirmed By:JEFERSON CLAY MD
[2017-08-31] MEDS: VANCOMYCIN 1 GM PREMIX - 1 GM/200 ML BAG IVPB SCH ×3 (00:51→16:46)
[2017-08-31] MEDS: AZTREONAM 1 GM in DEXTROSE 5%-WATER - 50 ML IVPB SCH ×4 (03:18→18:18)
[2017-08-31] MEDS ORDERED: PT OWN MED DRAWER 7, Y5N ONE ×5 (03:28→23:17)
[2017-08-31] MEDS: methylPREDNISolone NA SUCC 40 MG/1 ML VIAL IVPUSH SCH ×4 (03:58→17:25)
[2017-08-31] MEDS: METOCLOPRAMIDE HCL 10 MG TABLET (FP) PO SCH ×3 (06:19→17:25)
[2017-08-31] MEDS: INSULIN (LEVEMIR) 100 UNITS/ML UNITS SQ SCH ×2 (06:19→22:26)
[2017-08-31] MEDS: INSULIN SLIDING SCALE (NOVOLOG) 1 VIAL SQ SCH ×3 (06:20→17:25)
[2017-08-31] MEDS: ALBUTEROL SO4 2.5/IPRATROPIUM 0.5 INH SOL 3 ML VIAL.NEB. NEB SCH ×3 (07:40→19:55)
[2017-08-31 07:47] LABS: HEMATOCRIT 30.5 % (32.4-45.2); HEMOGLOBIN 10.1 GM/dL (10.7-15.3); MCH 28.3 pg (25.7-33.7); MCHC 33.1 g/dl (32.0-36.0); MEAN CELL VOLUME 85.3 fl (80-96); MEAN PLT VOLUME 7.9 fl (7.5-11.1); PLATELET COUNT 250 K/MM3 (134-434); RBC 3.57 M/mm3 (3.60-5.2); RDW 15.9 % (11.6-15.6); WHITE BLOOD COUNT 10.1 K/mm3 (4.0-10.0)
[2017-08-31 08:08] LABS: CHLORIDE 97 mmol/L (98-107); POTASSIUM 4.6 mmol/L (3.5-5.1); SODIUM 136 mmol/L (136-145)
[2017-08-31] MEDS: VANCOMYCIN 1,000 MG in DEXTROSE 5%-WATER - 250 ML IVPB SCH (08:21)
[2017-08-31] MEDS: AZTREONAM 2 GM in DEXTROSE 5%-WATER 100 ML IVPB SCH (08:22)
[2017-08-31 08:33] LABS: ANION GAP 6 (8-16); BLOOD UREA NITROGEN 21 mg/dL (7-18); CALCIUM 8.9 mg/dL (8.5-10.1); CO2 33 mmol/L (21-32); CREATININE 0.7 mg/dL (0.55-1.02); GLUCOSE,RANDOM 273 mg/dL (74-106)
--- NOTE | 2017-08-31 09:08 | PN ---
Progress Note, Physician Chief Complaint: no distress - Current Medication List Current Medications: Active Medications Acetylcysteine (Mucomyst 20 Oral / Inh Use Only*) 600 mg NEB BID PRN PRN Reason: Dyspnea Albuterol Sulfate (Ventolin 0.083% Nebulizer Soln -) 1 amp NEB Q4H PRN PRN Reason: SHORT OF BREATH/WHEEZING Last Admin: 08/29/17 07:24 Dose: 1 amp Albuterol/Ipratropium (Duoneb -) 1 amp NEB RTID [facility] Last Admin: 08/31/17 07:40 Dose: 1 amp Apixaban (Eliquis -) 5 mg PO BID [facility] Last Admin: 08/30/17 21:38 Dose: 5 mg Atorvastatin Calcium (Lipitor -) 10 mg PO HS [facility] Last Admin: 08/30/17 21:38 Dose: 10 mg Calcium Carbonate (Calcium Carbonate -) 650 mg PO DAILY [facility] Last Admin: 08/30/17 11:47 Dose: 650 mg Ferrous Sulfate (Feosol -) 325 mg PO DAILY [facility] Last Admin: 08/30/17 10:45 Dose: 325 mg Doxycycline Hyclate 100 mg/ (Dextrose) 100 mls @ 50 mls/hr IVPB BID [facility] Last Admin: 08/31/17 00:21 Dose: 50 mls/hr Vancomycin HCl (Vancomycin 1 Gm Premix -) 1 gm in 200 mls @ 133.333 mls/hr IVPB Q12H [facility] PRN Reason: Protocol Last Admin: 08/31/17 05:26 Dose: 133.333 mls/hr Aztreonam 1 gm/ Dextrose 50 mls @ 100 mls/hr IVPB Q8H-IV [facility] PRN Reason: Protocol Last Admin: 08/31/17 04:00 Dose: 100 mls/hr Insulin Aspart (Novolog Vial Sliding Scale -) 1 vial SQ TIDAC [facility] PRN Reason: Protocol Last Admin: 08/31/17 06:20 Dose: 10 unit Insulin Detemir (Levemir Vial) 50 units SQ HS [facility] Last Admin: 08/30/17 21:39 Dose: 50 units Insulin Detemir (Levemir Vial) 20 units SQ DAILY@0700 [facility] Last Admin: 08/31/17 06:19 Dose: 20 unit Methylprednisolone Sodium Succinate (Solu-Medrol -) 40 mg IVPUSH Q8H-IV [facility] Last Admin: 08/31/17 04:00 Dose: 40 mg Metoclopramide HCl (Reglan -) 5 mg PO TIDAC [facility] Last Admin: 08/31/17 06:19 Dose: 5 mg Montelukast Sodium (Singulair -) 10 mg PO HS [facility] Last Admin: 08/30/17 21:38 Dose: 10 mg Morphine Sulfate (Msir -) 15 mg PO BID [facility] Last Admin: 08/30/17 21:38 Dose: 15 mg Nystatin (Mycostatin Ointment -) 1 applic TP BID [facility] Last Admin: 08/30/17 21:39 Dose: 1 applic Nystatin (Nystatin Oral Suspension -) 500,000 units PO Q6HPO [facility] Last Admin: 08/31/17 06:23 Dose: Not Given Pantoprazole Sodium (Protonix -) 40 mg PO DAILY [facility] Last Admin: 08/30/17 10:45 Dose: 40 mg Polyethylene Glycol (Miralax (For Daily Use) -) 17 gm PO DAILY [facility] Last Admin: 08/30/17 15:24 Dose: 17 gm Pregabalin (Lyrica -) 75 mg PO BID [facility] Last Admin: 08/30/17 21:38 Dose: 75 mg Fluticasone/Salmeterol (Advair 100mcg/50mcg -) 1 puff IH BID [facility] Last Admin: 08/30/17 21:38 Dose: 1 puff Senna (Senna -) 1 tab PO HS [facility] Last Admin: 08/30/17 21:38 Dose: 1 tab Senna/Docusate Sodium (Pericolace -) 1 tablet PO BID [facility] Last Admin: 08/30/17 21:38 Dose: 1 tablet Sodium Chloride ([place] -) 2 spray NS BID PRN PRN Reason: NASAL CONGESTION - Objective Vital Signs: Vital Signs Temperature 97.6 F 08/31/17 05:50 Pulse Rate 79 08/31/17 05:50 Respiratory Rate 22 08/31/17 05:50 Blood Pressure 119/75 08/31/17 05:50 O2 Sat by Pulse Oximetry (%) 93 L 08/30/17 21:00 Constitutional: Yes: No Distress Cardiovascular: Yes: Regular Rate and Rhythm Respiratory: Yes: Rhonchi Gastrointestinal: Yes: Soft Edema: No Neurological: Yes: Alert Labs: CBC, BMP 08/31/17 06:00 08/31/17 06:00 INR, PTT INR 1.14 (0.82-1.09) 08/28/17 21:51 Microbiology 08/29/17 07:45 Blood - Peripheral Venous Blood Culture - Preliminary NO GROWTH OBTAINED AFTER 48 HOURS, INCUBATION TO CONTINUE FOR 3 DAYS. 08/29/17 06:00 Blood - Peripheral Venous Blood Culture - Preliminary NO GROWTH OBTAINED AFTER 48 HOURS, INCUBATION TO CONTINUE FOR 3 DAYS. Laboratory Tests 08/31/17 08/31/17 06:00 06:00 WBC 10.1 H Plt Count 250 Sodium 136 Potassium 4.6 Assessment/Plan IMP: Sarcoidosis w/ cardiac involvement (MRI) Chronic lung disease Suspected PNA H/o VT, syncope s/p ICD H/o DVT REC: 1. Rx of possible PNA as per pulmonary: abx, supplimental O2, steroid taper 2.Cont Eliquis (h/o DVT) 3. BP improved holding Lasix and Cardizem. She is on Eliquis for DVT, cannot confirm any h/o of PAF. Cardizem may have been started to control periods of sinus tach, in an effort to optimize her regimen for diastolic CHF and avoid tachycardia. Cannot tolerate beta blockers due to bronchospasm
[2017-08-31] MEDS: PREGABALIN 75 MG CAPSULE PO SCH ×2 (09:39→22:23)
[2017-08-31] MEDS: PANTOPRAZOLE 40 MG TABLET (FP) PO SCH (09:39)
[2017-08-31] MEDS: SENNOSIDES/DOCUSATE COMBO (SENNA PLUS) TABLET (UD) PO SCH ×2 (09:39→22:23)
[2017-08-31] MEDS: FERROUS SO4 325 MG TABLET (FP) PO SCH (09:39)
[2017-08-31] MEDS: morphine SULFATE IMMEDIATE RELEASE 30 MG TAB PO SCH ×2 (09:40→22:25)
[2017-08-31] MEDS: APIXABAN 5 MG TABLET PO SCH ×2 (09:40→22:23)
[2017-08-31] MEDS: POLYETHYLENE GLYCOL 3350 119 GM BTL PO SCH (09:41)
[2017-08-31] MEDS: CALCIUM CARBONATE 650 MG TABLET PO SCH (09:41)
[2017-08-31] MEDS: FLUTICASONE/SALMETEROL 100 MCG/50 MCG DISKUS IH SCH ×2 (09:49→22:31)
[2017-08-31] MEDS: NYSTATIN 100000 UNIT/GM TOPICAL OINTMENT 15 GM TUBE TP SCH ×2 (09:49→22:28)
--- NOTE | 2017-08-31 10:11 | PN ---
Progress Note (short form) - Note Progress Note: PULMONARY Breathing slightly better. +cough and wheezing but slightly less. +chills. Last Vital Signs Temp Pulse Resp BP Pulse Ox 98.2 F 96 H 20 113/76 93 L 08/31/17 09:36 08/31/17 09:36 08/31/17 09:36 08/31/17 09:36 08/30/17 21:00 Gen: less tachypneic Heart: RRR Lung: bilateral rales, rhonchi Abd: soft, nontender Ext: no edema CBC, BMP 08/31/17 06:00 08/31/17 06:00 Active Medications Acetylcysteine (Mucomyst 20 Oral / Inh Use Only*) 600 mg NEB BID PRN PRN Reason: Dyspnea Albuterol Sulfate (Ventolin 0.083% Nebulizer Soln -) 1 amp NEB Q4H PRN PRN Reason: SHORT OF BREATH/WHEEZING Last Admin: 08/29/17 07:24 Dose: 1 amp Albuterol/Ipratropium (Duoneb -) 1 amp NEB RTID [facility] Last Admin: 08/31/17 07:40 Dose: 1 amp Apixaban (Eliquis -) 5 mg PO BID [facility] Last Admin: 08/31/17 09:40 Dose: 5 mg Atorvastatin Calcium (Lipitor -) 10 mg PO HS [facility] Last Admin: 08/30/17 21:38 Dose: 10 mg Calcium Carbonate (Calcium Carbonate -) 650 mg PO DAILY [facility] Last Admin: 08/31/17 09:41 Dose: 650 mg Ferrous Sulfate (Feosol -) 325 mg PO DAILY [facility] Last Admin: 08/31/17 09:39 Dose: 325 mg Doxycycline Hyclate 100 mg/ (Dextrose) 100 mls @ 50 mls/hr IVPB BID [facility] Last Admin: 08/31/17 09:41 Dose: 50 mls/hr Vancomycin HCl (Vancomycin 1 Gm Premix -) 1 gm in 200 mls @ 133.333 mls/hr IVPB Q12H [facility] PRN Reason: Protocol Last Admin: 08/31/17 05:26 Dose: 133.333 mls/hr Aztreonam 1 gm/ Dextrose 50 mls @ 100 mls/hr IVPB Q8H-IV [facility] PRN Reason: Protocol Last Admin: 08/31/17 04:00 Dose: 100 mls/hr Insulin Aspart (Novolog Vial Sliding Scale -) 1 vial SQ TIDAC [facility] PRN Reason: Protocol Last Admin: 08/31/17 06:20 Dose: 10 unit Insulin Detemir (Levemir Vial) 50 units SQ [facility] Last Admin: 08/30/17 21:39 Dose: 50 units Insulin Detemir (Levemir Vial) 20 units SQ DAILY@0700 [facility] Last Admin: 08/31/17 06:19 Dose: 20 unit Methylprednisolone Sodium Succinate (Solu-Medrol -) 40 mg IVPUSH Q8H-IV [facility] Last Admin: 08/31/17 09:41 Dose: 40 mg Metoclopramide HCl (Reglan -) 5 mg PO TIDAC [facility] Last Admin: 08/31/17 06:19 Dose: 5 mg Montelukast Sodium (Singulair -) 10 mg PO [facility] Last Admin: 08/30/17 21:38 Dose: 10 mg Morphine Sulfate (Msir -) 15 mg PO BID [facility] Last Admin: 08/31/17 09:40 Dose: 15 mg Nystatin (Mycostatin Ointment -) 1 applic TP BID [facility] Last Admin: 08/31/17 09:49 Dose: 1 applic Nystatin (Nystatin Oral Suspension -) 500,000 units PO Q6HPO [facility] Last Admin: 08/31/17 06:23 Dose: Not Given Pantoprazole Sodium (Protonix -) 40 mg PO DAILY [facility] Last Admin: 08/31/17 09:39 Dose: 40 mg Polyethylene Glycol (Miralax (For Daily Use) -) 17 gm PO DAILY [facility] Last Admin: 08/31/17 09:41 Dose: 17 gm Pregabalin (Lyrica -) 75 mg PO BID [facility] Last Admin: 08/31/17 09:39 Dose: 75 mg Fluticasone/Salmeterol (Advair 100mcg/50mcg -) 1 puff IH BID [facility] Last Admin: 08/31/17 09:49 Dose: 1 puff Senna (Senna -) 1 tab PO [facility] Last Admin: 08/30/17 21:38 Dose: 1 tab Senna/Docusate Sodium (Pericolace -) 1 tablet PO BID [facility] Last Admin: 08/31/17 09:39 Dose: 1 tablet Sodium Chloride ([place] -) 2 spray NS BID PRN PRN Reason: NASAL CONGESTION A/P Pneumonia Chronic Hypoxic and Hypercapneic Respiratory Failure Pulmonary and Cardiac Sarcoidosis COPD h/o DVT h/o VT s/p ICD - continue antibiotics - continue medrol at current dose, will taper in AM if continues to improve - inhaled bronchodilators - O2 to keep SpO2 >90% - continue anticoagulation
[2017-08-31] MEDS ORDERED: INSULIN (NOVOLOG) ASPART 100 UNITS/ML 10ML VIAL ONE ×2 (11:30→17:16)
--- NOTE | 2017-08-31 13:51 | PN ---
Physical Exam: SUBJECTIVE: Patient seen and examined OBJECTIVE: Vital Signs Period Temp Pulse Resp BP Sys/Londono Pulse Ox Last 24 Hr 97.6 F-98.7 F 79-96 20-28 100-120/46-76 93 GENERAL: The patient is awake, alert, and fully oriented, in no acute distress. HEAD: Normal with no signs of trauma. EYES: PERRL, extraocular movements intact, sclera anicteric, conjunctiva clear. No ptosis. ENT: Ears normal, nares patent, oropharynx clear without exudates, moist mucous membranes. NECK: Trachea midline, full range of motion, supple. LUNGS: Breath sounds equal, clear to auscultation bilaterally, no wheezes, no crackles, no accessory muscle use. HEART: Regular rate and rhythm, S1, S2 without murmur, rub or gallop. ABDOMEN: Soft, nontender, nondistended, normoactive bowel sounds, no guarding, no rebound, no hepatosplenomegaly, no masses. EXTREMITIES: 2+ pulses, warm, well-perfused, no edema. NEUROLOGICAL: Cranial nerves II through XII grossly intact. Normal speech, gait not observed. PSYCH: Normal mood, normal affect. SKIN: Warm, dry, normal turgor, no rashes or lesions noted Laboratory Results - last 24 hr 08/31/17 08/31/17 06:00 06:00 WBC 10.1 H RBC 3.57 L Hgb 10.1 L Hct 30.5 L MCV 85.3 MCH 28.3 MCHC 33.1 RDW 15.9 H Plt Count 250 MPV 7.9 Sodium 136 Potassium 4.6 Chloride 97 L Carbon Dioxide 33 H Anion Gap 6 L BUN 21 H Creatinine 0.7 Random Glucose 273 H Calcium 8.9 Active Medications Generic Name Dose Route Start Last Admin Trade Name Freq PRN Reason Stop Dose Admin Acetylcysteine 600 mg 08/29/17 08:26 Mucomyst 20 Oral / Inh Use Only* NEB BID PRN Dyspnea Albuterol Sulfate 1 amp 08/29/17 02:37 08/29/17 07:24 Ventolin 0.083% Nebulizer Soln - NEB 1 amp Q4H PRN Administration SHORT OF BREATH/WHEEZING Albuterol/Ipratropium 1 amp 08/29/17 08:00 08/31/17 07:40 Duoneb - NEB 1 amp RTID EYAL Administration Apixaban 5 mg 08/29/17 10:00 08/31/17 09:40 Eliquis - PO 5 mg BID EYAL Administration Atorvastatin Calcium 10 mg 08/29/17 22:00 08/30/17 21:38 Lipitor - PO 10 mg HS EYAL Administration Calcium Carbonate 650 mg 08/29/17 10:00 08/31/17 09:41 Calcium Carbonate - PO 650 mg DAILY EYAL Administration Ferrous Sulfate 325 mg 08/29/17 10:00 08/31/17 09:39 Feosol - PO 325 mg DAILY EYAL Administration Doxycycline Hyclate 100 mg/ 100 mls @ 50 mls/hr 08/29/17 10:00 08/31/17 12:34 Dextrose IVPB Not Given BID EYAL Vancomycin HCl 1 gm in 200 mls @ 133.333 mls/hr 08/30/17 12:00 08/31/17 05:26 Vancomycin 1 Gm Premix - IVPB 133.333 mls/hr Q12H EYAL Administration Protocol Aztreonam 1 gm/ Dextrose 50 mls @ 100 mls/hr 08/30/17 11:30 08/31/17 12:34 IVPB Not Given Q8H-IV EYAL Protocol Insulin Aspart 1 vial 08/29/17 07:00 08/31/17 11:36 Novolog Vial Sliding Scale - SQ 12 unit TIDAC [facility] Administration Protocol Insulin Detemir 50 units 08/29/17 22:00 08/30/17 21:39 Levemir Vial SQ 50 units HS EYAL Administration Insulin Detemir 20 units 08/29/17 07:00 08/31/17 06:19 Levemir Vial SQ 20 unit DAILY@0700 EYAL Administration Methylprednisolone Sodium Succinate 40 mg 08/30/17 18:00 08/31/17 09:41 Solu-Medrol - IVPUSH 40 mg Q8H-IV EYAL Administration Metoclopramide HCl 5 mg 08/29/17 07:00 08/31/17 11:37 Reglan - PO 5 mg TIDAC EYAL Administration Montelukast Sodium 10 mg 08/29/17 22:00 08/30/17 21:38 Singulair - PO 10 mg HS EYAL Administration Morphine Sulfate 15 mg 08/29/17 10:00 08/31/17 09:40 Msir - PO 15 mg BID EYAL Administration Nystatin 1 applic 08/29/17 10:00 08/31/17 09:49 Mycostatin Ointment - TP 1 applic BID EYAL Administration Nystatin 500,000 units 08/29/17 06:00 08/31/17 11:39 Nystatin Oral Suspension - PO Not Given Q6HPO EYAL Pantoprazole Sodium 40 mg 08/29/17 10:00 08/31/17 09:39 Protonix - PO 40 mg DAILY EYAL Administration Polyethylene Glycol 17 gm 08/29/17 10:00 08/31/17 09:41 Miralax (For Daily Use) - PO 17 gm DAILY EYAL Administration Pregabalin 75 mg 08/29/17 10:00 08/31/17 09:39 Lyrica - PO 75 mg BID EYAL Administration Fluticasone/Salmeterol 1 puff 08/29/17 10:00 08/31/17 09:49 Advair 100mcg/50mcg - IH 1 puff BID EYAL Administration Senna 1 tab 08/29/17 22:00 08/30/17 21:38 Senna - PO 1 tab HS EYAL Administration Senna/Docusate Sodium 1 tablet 08/29/17 10:00 08/31/17 09:39 Pericolace - PO 1 tablet BID EYAL Administration Sodium Chloride 2 spray 08/30/17 10:18 [place] Nas[place] - NS BID PRN NASAL CONGESTION ASSESSMENT/PLAN: 1) Pneumonia, bilaterally --Flu negative --F/u blood cultures ID on board covering for HCAP: (central line L IJ placed; no issue for IV access anymore) --Continue Aztreonam 1gm q8h --Continue Vancomycin 1gm qDaily --Continue Doxycycline 100mg IVPB BID --Continue Albuterol and Mucomyst combo TID 2) Sarcoidosis --Pulmonary --Continue Medrol 40mg q8h; will begin tapering tomorrow --Pulmonology on board --Continue Duonebs TID --Continue Advair 100/50mcg --Continue Singulair 10mg HS -- --Cardiac --s/p AICD/PPM --Cardiology on board --normotensive with lasix held --med rec in progress 3) Questionable Atrial fibrillation --Previous records state narrow complex tachycardia, but not truly documented in an EKG --med rec in progress 4) History of hypertension --Holding anti-hypertensive medications currently due to hypotension now 5) Chronic pain --Continue MS Contin 15mg PO BID --Continue bowel regiment Pericolace 1 tab PO BID Senna 1 tab PO HS Lyrica 75mg PO BID 6) H/o DVT --Continue Eliquis 5mg PO BID 7) Hyperglycemia -- Levemir 20 U AM and 50 U PM --ISS --BGM ACHS FEN: Fluids: Avoid for now Electrolyte abnormalities: None currently Nutrition: Diabetic and sodium-controlled diet PPX: DVT - Already on Eliquis GI - Protonix 40mg IVP Dispo: Continue monitoring on M/S Case discussed with Dr. Jaylon Weston, DO - IM PGY-1
--- NOTE | 2017-08-31 15:04 | PN ---
Progress Note, Physician History of Present Illness: Awake, alert Appears more comfortable Breathing non-labored on nasal cannula O2 Tolerating antibiotics - Current Medication List Current Medications: Active Medications Acetylcysteine (Mucomyst 20 Oral / Inh Use Only*) 600 mg NEB BID PRN PRN Reason: Dyspnea Albuterol Sulfate (Ventolin 0.083% Nebulizer Soln -) 1 amp NEB Q4H PRN PRN Reason: SHORT OF BREATH/WHEEZING Last Admin: 08/29/17 07:24 Dose: 1 amp Albuterol/Ipratropium (Duoneb -) 1 amp NEB RTID [facility] Last Admin: 08/31/17 14:15 Dose: 1 amp Apixaban (Eliquis -) 5 mg PO BID [facility] Last Admin: 08/31/17 09:40 Dose: 5 mg Atorvastatin Calcium (Lipitor -) 10 mg PO HS [facility] Last Admin: 08/30/17 21:38 Dose: 10 mg Calcium Carbonate (Calcium Carbonate -) 650 mg PO DAILY [facility] Last Admin: 08/31/17 09:41 Dose: 650 mg Ferrous Sulfate (Feosol -) 325 mg PO DAILY [facility] Last Admin: 08/31/17 09:39 Dose: 325 mg Doxycycline Hyclate 100 mg/ (Dextrose) 100 mls @ 50 mls/hr IVPB BID [facility] Last Admin: 08/31/17 12:34 Dose: Not Given Vancomycin HCl (Vancomycin 1 Gm Premix -) 1 gm in 200 mls @ 133.333 mls/hr IVPB Q12H EYAL PRN Reason: Protocol Last Admin: 08/31/17 05:26 Dose: 133.333 mls/hr Aztreonam 1 gm/ Dextrose 50 mls @ 100 mls/hr IVPB Q8H-IV EYAL PRN Reason: Protocol Last Admin: 08/31/17 12:34 Dose: Not Given Insulin Aspart (Novolog Vial Sliding Scale -) 1 vial SQ TIDAC [facility] PRN Reason: Protocol Last Admin: 08/31/17 11:36 Dose: 12 unit Insulin Detemir (Levemir Vial) 50 units SQ HS [facility] Last Admin: 08/30/17 21:39 Dose: 50 units Insulin Detemir (Levemir Vial) 20 units SQ DAILY@0700 [facility] Last Admin: 08/31/17 06:19 Dose: 20 unit Methylprednisolone Sodium Succinate (Solu-Medrol -) 40 mg IVPUSH Q8H-IV [facility] Last Admin: 08/31/17 09:41 Dose: 40 mg Metoclopramide HCl (Reglan -) 5 mg PO TIDAC [facility] Last Admin: 08/31/17 11:37 Dose: 5 mg Montelukast Sodium (Singulair -) 10 mg PO HS [facility] Last Admin: 08/30/17 21:38 Dose: 10 mg Morphine Sulfate (Msir -) 15 mg PO BID [facility] Last Admin: 08/31/17 09:40 Dose: 15 mg Nystatin (Mycostatin Ointment -) 1 applic TP BID [facility] Last Admin: 08/31/17 09:49 Dose: 1 applic Nystatin (Nystatin Oral Suspension -) 500,000 units PO Q6HPO [facility] Last Admin: 08/31/17 11:39 Dose: Not Given Pantoprazole Sodium (Protonix -) 40 mg PO DAILY [facility] Last Admin: 08/31/17 09:39 Dose: 40 mg Polyethylene Glycol (Miralax (For Daily Use) -) 17 gm PO DAILY [facility] Last Admin: 08/31/17 09:41 Dose: 17 gm Pregabalin (Lyrica -) 75 mg PO BID [facility] Last Admin: 08/31/17 09:39 Dose: 75 mg Fluticasone/Salmeterol (Advair 100mcg/50mcg -) 1 puff IH BID [facility] Last Admin: 08/31/17 09:49 Dose: 1 puff Senna (Senna -) 1 tab PO [facility] Last Admin: 08/30/17 21:38 Dose: 1 tab Senna/Docusate Sodium (Pericolace -) 1 tablet PO BID [facility] Last Admin: 08/31/17 09:39 Dose: 1 tablet Sodium Chloride ([place] Nas[place] -) 2 spray NS BID PRN PRN Reason: NASAL CONGESTION - Objective Vital Signs: Vital Signs Temperature 97.5 F L 08/31/17 14:18 Pulse Rate 91 H 08/31/17 14:18 Respiratory Rate 20 08/31/17 14:18 Blood Pressure 110/63 08/31/17 14:18 O2 Sat by Pulse Oximetry (%) 96 08/31/17 10:15 Constitutional: Yes: No Distress, Obese Cardiovascular: Yes: Regular Rate and Rhythm, S1, S2 Respiratory: Yes: Other (+ bilateral rhonchi and crepitations) Gastrointestinal: Yes: Normal Bowel Sounds, Soft, Abdomen, Obese. No: Tenderness Edema: Yes Labs: CBC, BMP 08/31/17 06:00 08/31/17 06:00 INR, PTT INR 1.14 (0.82-1.09) 08/28/17 21:51 Assessment/Plan Bilateral pneumonia Exacerbation COPD Pulmonary sacrcoid Multiple antibiotic allergies Continue empiric vancomycin/ aztreonam/ doxycycline
--- NOTE | 2017-08-31 16:07 | PROC ---
Central Line Insertion Indication: Poor Venous Access Risks and Benefits Explained: Yes Consent on Chart: Yes Central Line: Triple Lumen Catheter Anesthesia: 1% Lidocaine Sterile Technique: Yes Ultrasound Guided Assistance: Yes Position: Left Internal Jugular Post Insertion: Yes: Bilateral Breath Sounds, Bilateral Chest Expansion, Chest X-Ray Ordered Sterile Dressing Applied: Yes
--- NOTE | 2017-08-31 16:16 | PN ---
Teaching Attending Note Name of Resident: Anaya Sharpe ATTENDING PHYSICIAN STATEMENT I saw and evaluated the patient. I reviewed the resident's note and discussed the case with the resident. I agree with the resident's findings and plan as documented. SUBJECTIVE: no fever or chills. feels better . OBJECTIVE: NAD. AAOx3. pleasant MMM. slightly congested oropharynx. CV: RRR Lungs: fine crackles at both lungs [place] , worse in lower [place]helm. Ext: no edema or erythema. L foot drop. Abd: soft, TTP in epigastric area, no rebound tenderness or guarding . RUQ metalic object felt Assessment/Plan: Unfortunate 62 y/o lady with h/o sarcoidosis, cardiac sarcoidosis, COPD , s/p PPM , HTN, HL, 4 l of O2, DM, h/o PNA , h/o DVT, recent Flu A 04/29 and other medical problems who was d/c from [place] few days prior and presented with worsening SOB and cough with green sputum production , and was found to have b/ l PNA 1- B/L Pneumonia. - aztreonam vanco and doxy - vanco trough before next dose - follow cultures - mucomyst and Duo-Nebs 2- Pulmonary sacrcoidosis: - cont IV steroids - Pulm consult appreciated - Nebs 3- Cardiac sarcoidosis: - s/p PPM - lasix on hold due to hypotension. has tendency for fluid overload. might need to resume soon as BP improved especially now on higher dose of steroids - will d/w Dr. Lockhart - At dc her lasix dose might need to be decreaed. will confirm with card then 4- H/o tachycardia during last admission. no Afib was documented .was started on cardizem [place] - cardizem on hold now as hypotensive - at dc, d/w card whether cardizem needs to be started on not 5- h/o DVT : cont elipuis 6- DM : cont insulin at curent dose 7- h/o HTN: lisinopril on hold due to hypo-tension yesterday DVT prophylaxis: Eliquis
[2017-08-31 16:26] VITALS: BMI 33.0
[2017-08-31] MEDS: SENNOSIDES 8.6MG TABLET (FP) PO SCH (22:23)
[2017-08-31] MEDS: MONTELUKAST NA 10 MG TABLET PO SCH (22:23)
[2017-08-31] MEDS: ATORVASTATIN CA 10 MG TABLET (FP) PO SCH (22:23)
[2017-09-01] MEDS ORDERED: PT OWN MED DRAWER 7, Y5N ONE ×4 (01:15→21:04)
[2017-09-01] MEDS: AZTREONAM 1 GM in DEXTROSE 5%-WATER - 50 ML IVPB SCH ×3 (01:25→18:02)
[2017-09-01] MEDS: NYSTATIN 500,000 UNITS/5 ML SUSPENSION PO SCH ×6 (01:25→23:50)
[2017-09-01] MEDS: methylPREDNISolone NA SUCC 40 MG/1 ML VIAL IVPUSH SCH ×3 (01:25→16:05)
[2017-09-01] MEDS: VANCOMYCIN 1 GM PREMIX - 1 GM/200 ML BAG IVPB SCH ×3 (02:41→17:51)
[2017-09-01] MEDS: ALBUTEROL SO4 2.5/IPRATROPIUM 0.5 INH SOL 3 ML VIAL.NEB. NEB SCH ×3 (07:41→21:15)
[2017-09-01] MEDS: INSULIN (LEVEMIR) 100 UNITS/ML UNITS SQ SCH ×2 (08:21→21:25)
[2017-09-01] MEDS: INSULIN SLIDING SCALE (NOVOLOG) 1 VIAL SQ SCH ×3 (08:22→17:45)
[2017-09-01] MEDS: METOCLOPRAMIDE HCL 10 MG TABLET (FP) PO SCH ×3 (08:22→17:55)
[2017-09-01] MEDS: morphine SULFATE IMMEDIATE RELEASE 30 MG TAB PO SCH ×2 (09:37→21:21)
[2017-09-01] MEDS: PREGABALIN 75 MG CAPSULE PO SCH ×2 (09:38→21:21)
[2017-09-01] MEDS: FERROUS SO4 325 MG TABLET (FP) PO SCH (09:39)
[2017-09-01] MEDS: PANTOPRAZOLE 40 MG TABLET (FP) PO SCH (09:39)
[2017-09-01] MEDS: DOXYCYCLINE INJECTION 100 MG in DEXTROSE 5%-WATER 100 ML IVPB SCH (09:40)
[2017-09-01] MEDS: NYSTATIN 100000 UNIT/GM TOPICAL OINTMENT 15 GM TUBE TP SCH ×2 (09:40→21:26)
[2017-09-01] MEDS ORDERED: TRIPLE LUMEN FLUSH 4 ML ML IVPUSH PRN (09:43)
[2017-09-01] MEDS: SENNOSIDES/DOCUSATE COMBO (SENNA PLUS) TABLET (UD) PO SCH ×2 (09:43→21:21)
[2017-09-01] MEDS: APIXABAN 5 MG TABLET PO SCH ×2 (09:44→21:21)
[2017-09-01] MEDS: CALCIUM CARBONATE 650 MG TABLET PO SCH (09:45)
[2017-09-01] MEDS: POLYETHYLENE GLYCOL 3350 119 GM BTL PO SCH (09:45)
--- NOTE | 2017-09-01 12:31 | PN ---
Physical Exam: UPDATE: chest pressure and lasix dose discontinued; reproducible with palpation. EKG (r/o any cardiac) and CXR (effusions vs. other process); most likely chostochondritis from increased work of breathing/multifactorial; albuterol tx now due to some wheezes on exam --EKG unchanged from previous on admission --CXR without any interval change --Costochondritis SUBJECTIVE: Pt reports better breathing today without fever or chills during the night. Expectorating less, however continued cough. Pt did not use her BiPap last night , but states she felt like she didn't need it. OBJECTIVE: Vital Signs Period Temp Pulse Resp BP Sys/Londono Pulse Ox Last 24 Hr 97.5 F-98.0 F 75-96 18-20 110-122/63-77 97-99 GENERAL: NAD awake, alert, and fully oriented, sitting in bed HEENT: EOMI, JAMES, dry-moist mucosa, L IJ site C/D/I with biopatch and sterile tegaderm in place LUNGS: Diffuse crackles throughout. No superimposed wheezing today! No accessory muscle use. On 4LNC with humidified oxygen HEART: RRR, S1, S2 without murmur ABDOMEN: Soft, normoactive BS, nondistended, nontender today, no guarding. Mass in RUQ hard to touch EXTREMITIES: 2+ pulses, warm, no edema. SKIN: Warm, dry, no rashes or lesions noted Laboratory Results - last 24 hr 08/31/17 08/31/17 08/31/17 16:32 20:00 20:42 POC Glucometer 304 347 Vancomycin Pre-Dose 29.507 H* 09/01/17 09/01/17 00:45 05:58 POC Glucometer 397 Vancomycin Pre-Dose 19.266 H* Active Medications Generic Name Dose Route Start Last Admin Trade Name Freq PRN Reason Stop Dose Admin Acetylcysteine 600 mg 08/29/17 08:26 Mucomyst 20 Oral / Inh Use Only* NEB BID PRN Dyspnea Albuterol Sulfate 1 amp 08/29/17 02:37 08/29/17 07:24 Ventolin 0.083% Nebulizer Soln - NEB 1 amp Q4H PRN Administration SHORT OF BREATH/WHEEZING Albuterol/Ipratropium 1 amp 08/29/17 08:00 09/01/17 07:41 Duoneb - NEB 1 amp RTID EYAL Administration Apixaban 5 mg 08/29/17 10:00 09/01/17 09:44 Eliquis - PO 5 mg BID EYAL Administration Atorvastatin Calcium 10 mg 08/29/17 22:00 08/31/17 22:23 Lipitor - PO 10 mg HS EYAL Administration Calcium Carbonate 650 mg 08/29/17 10:00 09/01/17 09:45 Calcium Carbonate - PO 650 mg DAILY EYAL Administration Ferrous Sulfate 325 mg 08/29/17 10:00 09/01/17 09:39 Feosol - PO 325 mg DAILY EYAL Administration IV Flush 4 ml 09/01/17 09:43 Triple Lumen Flush IVPUSH PRN PRN Protocol Doxycycline Hyclate 100 mg/ 100 mls @ 50 mls/hr 08/29/17 10:00 09/01/17 09:40 Dextrose IVPB 50 mls/hr BID EYAL Administration Vancomycin HCl 1 gm in 200 mls @ 133.333 mls/hr 08/30/17 12:00 09/01/17 02:41 Vancomycin 1 Gm Premix - IVPB Not Given Q12H [facility] Protocol Aztreonam 1 gm/ Dextrose 50 mls @ 100 mls/hr 08/30/17 11:30 09/01/17 09:39 IVPB 100 mls/hr Q8H-IV [facility] Administration Protocol Insulin Aspart 1 vial 08/29/17 07:00 09/01/17 08:22 Novolog Vial Sliding Scale - SQ Not Given TIDAC [facility] Protocol Insulin Detemir 50 units 08/29/17 22:00 08/31/17 22:26 Levemir Vial SQ 50 units HS [facility] Administration Insulin Detemir 20 units 08/29/17 07:00 09/01/17 08:21 Levemir Vial SQ Not Given DAILY@0700 [facility] Methylprednisolone Sodium Succinate 40 mg 08/30/17 18:00 09/01/17 09:39 Solu-Medrol - IVPUSH 40 mg Q8H-IV EYAL Administration Metoclopramide HCl 5 mg 08/29/17 07:00 09/01/17 08:22 Reglan - PO Not Given TIDAC [facility] Montelukast Sodium 10 mg 08/29/17 22:00 08/31/17 22:23 Singulair - PO 10 mg HS EYAL Administration Morphine Sulfate 15 mg 08/29/17 10:00 09/01/17 09:37 Msir - PO 15 mg BID EYAL Administration Nystatin 1 applic 08/29/17 10:00 09/01/17 09:40 Mycostatin Ointment - TP Not Given BID EYAL Nystatin 500,000 units 08/29/17 06:00 09/01/17 08:19 Nystatin Oral Suspension - PO Not Given Q6HPO EYAL Pantoprazole Sodium 40 mg 08/29/17 10:00 09/01/17 09:39 Protonix - PO 40 mg DAILY EYAL Administration Polyethylene Glycol 17 gm 08/29/17 10:00 09/01/17 09:45 Miralax (For Daily Use) - PO 17 gm DAILY EYAL Administration Pregabalin 75 mg 08/29/17 10:00 09/01/17 09:38 Lyrica - PO 75 mg BID EYAL Administration Fluticasone/Salmeterol 1 puff 08/29/17 10:00 08/31/17 22:31 Advair 100mcg/50mcg - IH 1 puff BID EYAL Administration Senna 1 tab 08/29/17 22:00 08/31/17 22:23 Senna - PO 1 tab HS EYAL Administration Senna/Docusate Sodium 1 tablet 08/29/17 10:00 09/01/17 09:43 Pericolace - PO 1 tablet BID EYAL Administration Sodium Chloride 2 spray 08/30/17 10:18 [place] Nasal [place] - NS BID PRN NASAL CONGESTION ASSESSMENT/PLAN: 1) Pneumonia, bilaterally --Flu negative --Blood cultures negative thus far. ID on board covering for HCAP: (L IJ TLC in place) --Can discontinue doxy --Continue Aztreonam 1gm q8h --Continue Vancomycin 1gm qDaily --Continue Albuterol and Mucomyst combo TID 2) Sarcoidosis --Pulmonary --Pulmonology on board --Decreased to Medrol 40mg q12h today --Continue Duonebs TID --Continue Advair 100/50mcg --Continue Singulair 10mg HS -- --Cardiac --s/p AICD/PPM --Cardiology on board --normotensive with lasix held --med rec in progress 3) Questionable Atrial fibrillation --Previous records state narrow complex tachycardia, but not truly documented in an EKG --med rec in progress 4) History of hypertension --Holding anti-hypertensive medications currently due to hypotension now; currently normotensive without 5) Chronic pain --Continue MS Contin 15mg PO BID --Continue bowel regiment Pericolace 1 tab PO BID Senna 1 tab PO HS Lyrica 75mg PO BID 6) H/o DVT --Continue Eliquis 5mg PO BID 7) Hyperglycemia -- Levemir 20 U AM and 50 U PM --ISS --BGM ACHS FEN: Fluids: Avoid for now Electrolyte abnormalities: None currently Nutrition: Diabetic and sodium-controlled diet PPX: DVT - Already on Eliquis GI - Protonix 40mg IVP Dispo: Continue monitoring on / Case discussed with Dr. Lauren Weston, DO - IM PGY-1 Visit type - Emergency Visit Emergency Visit: No - New Patient This patient is new to me today: No - Critical Care Critical Care patient: No
--- NOTE | 2017-09-01 12:33 | PN ---
Progress Note, Physician History of Present Illness: Awake, alert No c/o chest pain/ dyspnea Occasional cough No sputum production Appears more comfortable Breathing non-labored on nasal cannula O2 Tolerating antibiotics - Current Medication List Current Medications: Active Medications Acetylcysteine (Mucomyst 20 Oral / Inh Use Only*) 600 mg NEB BID PRN PRN Reason: Dyspnea Albuterol Sulfate (Ventolin 0.083% Nebulizer Soln -) 1 amp NEB Q4H PRN PRN Reason: SHORT OF BREATH/WHEEZING Last Admin: 08/29/17 07:24 Dose: 1 amp Albuterol/Ipratropium (Duoneb -) 1 amp NEB RTID [facility] Last Admin: 09/01/17 07:41 Dose: 1 amp Apixaban (Eliquis -) 5 mg PO BID [facility] Last Admin: 09/01/17 09:44 Dose: 5 mg Atorvastatin Calcium (Lipitor -) 10 mg PO HS [facility] Last Admin: 08/31/17 22:23 Dose: 10 mg Calcium Carbonate (Calcium Carbonate -) 650 mg PO DAILY [facility] Last Admin: 09/01/17 09:45 Dose: 650 mg Ferrous Sulfate (Feosol -) 325 mg PO DAILY [facility] Last Admin: 09/01/17 09:39 Dose: 325 mg IV Flush (Triple Lumen Flush) 4 ml IVPUSH PRN PRN PRN Reason: Protocol Doxycycline Hyclate 100 mg/ (Dextrose) 100 mls @ 50 mls/hr IVPB BID [facility] Last Admin: 09/01/17 09:40 Dose: 50 mls/hr Vancomycin HCl (Vancomycin 1 Gm Premix -) 1 gm in 200 mls @ 133.333 mls/hr IVPB Q12H [facility]; Protocol Last Admin: 09/01/17 02:41 Dose: Not Given Aztreonam 1 gm/ Dextrose 50 mls @ 100 mls/hr IVPB Q8H-IV [facility]; Protocol Last Admin: 09/01/17 09:39 Dose: 100 mls/hr Insulin Aspart (Novolog Vial Sliding Scale -) 1 vial SQ TIDAC [facility]; Protocol Last Admin: 09/01/17 08:22 Dose: Not Given Insulin Detemir (Levemir Vial) 50 units SQ [facility] Last Admin: 08/31/17 22:26 Dose: 50 units Insulin Detemir (Levemir Vial) 20 units SQ DAILY@0700 [facility] Last Admin: 09/01/17 08:21 Dose: Not Given Methylprednisolone Sodium Succinate (Solu-Medrol -) 40 mg IVPUSH Q8H-IV [facility] Last Admin: 09/01/17 09:39 Dose: 40 mg Metoclopramide HCl (Reglan -) 5 mg PO TIDAC [facility] Last Admin: 09/01/17 08:22 Dose: Not Given Montelukast Sodium (Singulair -) 10 mg PO [facility] Last Admin: 08/31/17 22:23 Dose: 10 mg Morphine Sulfate (Msir -) 15 mg PO BID [facility] Last Admin: 09/01/17 09:37 Dose: 15 mg Nystatin (Mycostatin Ointment -) 1 applic TP BID [facility] Last Admin: 09/01/17 09:40 Dose: Not Given Nystatin (Nystatin Oral Suspension -) 500,000 units PO Q6HPO [facility] Last Admin: 09/01/17 08:19 Dose: Not Given Pantoprazole Sodium (Protonix -) 40 mg PO DAILY [facility] Last Admin: 09/01/17 09:39 Dose: 40 mg Polyethylene Glycol (Miralax (For Daily Use) -) 17 gm PO DAILY [facility] Last Admin: 09/01/17 09:45 Dose: 17 gm Pregabalin (Lyrica -) 75 mg PO BID [facility] Last Admin: 09/01/17 09:38 Dose: 75 mg Fluticasone/Salmeterol (Advair 100mcg/50mcg -) 1 puff IH BID [facility] Last Admin: 08/31/17 22:31 Dose: 1 puff Senna (Senna -) 1 tab PO [facility] Last Admin: 08/31/17 22:23 Dose: 1 tab Senna/Docusate Sodium (Pericolace -) 1 tablet PO BID [facility] Last Admin: 09/01/17 09:43 Dose: 1 tablet Sodium Chloride ([place] Nasal [place] -) 2 spray NS BID PRN PRN Reason: NASAL CONGESTION - Objective Vital Signs: Vital Signs Temperature 98 F 09/01/17 08:00 Pulse Rate 75 09/01/17 08:00 Respiratory Rate 18 09/01/17 08:00 Blood Pressure 122/77 09/01/17 08:00 O2 Sat by Pulse Oximetry (%) 97 09/01/17 07:40 Constitutional: Yes: No Distress, Obese Eyes: Yes: Conjunctiva Clear Cardiovascular: Yes: Regular Rate and Rhythm, S1, S2 Respiratory: Yes: Other (+ bilateral rhonchi, crepitations) Gastrointestinal: Yes: Normal Bowel Sounds, Soft. No: Tenderness Edema: No Labs: CBC, BMP 08/31/17 06:00 08/31/17 06:00 INR, PTT INR 1.14 (0.82-1.09) 08/28/17 21:51 Assessment/Plan Bilateral pneumonia Exacerbation COPD Pulmonary sacrcoid Multiple antibiotic allergies Continue aztreonam Vancomycin held pending level Can D/C doxycycline
[2017-09-01] MEDS: FLUTICASONE/SALMETEROL 100 MCG/50 MCG DISKUS IH SCH ×2 (13:28→21:24)
--- NOTE | 2017-09-01 14:06 | PN ---
Progress Note, Physician History of Present Illness: pulmonary alert,feeling better,less dyspneic,less cough - Current Medication List Current Medications: Active Medications Acetylcysteine (Mucomyst 20 Oral / Inh Use Only*) 600 mg NEB BID PRN PRN Reason: Dyspnea Albuterol Sulfate (Ventolin 0.083% Nebulizer Soln -) 1 amp NEB Q4H PRN PRN Reason: SHORT OF BREATH/WHEEZING Last Admin: 08/29/17 07:24 Dose: 1 amp Albuterol/Ipratropium (Duoneb -) 1 amp NEB RTID [facility] Last Admin: 09/01/17 07:41 Dose: 1 amp Apixaban (Eliquis -) 5 mg PO BID [facility] Last Admin: 09/01/17 09:44 Dose: 5 mg Atorvastatin Calcium (Lipitor -) 10 mg PO HS [facility] Last Admin: 08/31/17 22:23 Dose: 10 mg Calcium Carbonate (Calcium Carbonate -) 650 mg PO DAILY [facility] Last Admin: 09/01/17 09:45 Dose: 650 mg Ferrous Sulfate (Feosol -) 325 mg PO DAILY [facility] Last Admin: 09/01/17 09:39 Dose: 325 mg IV Flush (Triple Lumen Flush) 4 ml IVPUSH PRN PRN PRN Reason: Protocol Doxycycline Hyclate 100 mg/ (Dextrose) 100 mls @ 50 mls/hr IVPB BID [facility] Last Admin: 09/01/17 09:40 Dose: 50 mls/hr Vancomycin HCl (Vancomycin 1 Gm Premix -) 1 gm in 200 mls @ 133.333 mls/hr IVPB Q12H [facility]; Protocol Last Admin: 09/01/17 13:40 Dose: Not Given Aztreonam 1 gm/ Dextrose 50 mls @ 100 mls/hr IVPB Q8H-IV [facility]; Protocol Last Admin: 09/01/17 09:39 Dose: 100 mls/hr Insulin Aspart (Novolog Vial Sliding Scale -) 1 vial SQ TIDAC [facility]; Protocol Last Admin: 09/01/17 12:44 Dose: 12 unit Insulin Detemir (Levemir Vial) 50 units SQ HS [facility] Last Admin: 08/31/17 22:26 Dose: 50 units Insulin Detemir (Levemir Vial) 20 units SQ DAILY@0700 [facility] Last Admin: 09/01/17 08:21 Dose: Not Given Methylprednisolone Sodium Succinate (Solu-Medrol -) 40 mg IVPUSH Q8H-IV [facility] Last Admin: 09/01/17 09:39 Dose: 40 mg Metoclopramide HCl (Reglan -) 5 mg PO TIDAC [facility] Last Admin: 09/01/17 12:49 Dose: 5 mg Montelukast Sodium (Singulair -) 10 mg PO HS [facility] Last Admin: 08/31/17 22:23 Dose: 10 mg Morphine Sulfate (Msir -) 15 mg PO BID [facility] Last Admin: 09/01/17 09:37 Dose: 15 mg Nystatin (Mycostatin Ointment -) 1 applic TP BID [facility] Last Admin: 09/01/17 09:40 Dose: Not Given Nystatin (Nystatin Oral Suspension -) 500,000 units PO Q6HPO [facility] Last Admin: 09/01/17 13:23 Dose: Not Given Pantoprazole Sodium (Protonix -) 40 mg PO DAILY [facility] Last Admin: 09/01/17 09:39 Dose: 40 mg Polyethylene Glycol (Miralax (For Daily Use) -) 17 gm PO DAILY [facility] Last Admin: 09/01/17 09:45 Dose: 17 gm Pregabalin (Lyrica -) 75 mg PO BID [facility] Last Admin: 09/01/17 09:38 Dose: 75 mg Fluticasone/Salmeterol (Advair 100mcg/50mcg -) 1 puff IH BID [facility] Last Admin: 09/01/17 13:28 Dose: 1 puff Senna (Senna -) 1 tab PO HS [facility] Last Admin: 08/31/17 22:23 Dose: 1 tab Senna/Docusate Sodium (Pericolace -) 1 tablet PO BID [facility] Last Admin: 09/01/17 09:43 Dose: 1 tablet Sodium Chloride ([place] Nasal [place] -) 2 spray NS BID PRN PRN Reason: NASAL CONGESTION - Objective Vital Signs: Vital Signs Temperature 98 F 09/01/17 08:00 Pulse Rate 75 09/01/17 08:00 Respiratory Rate 18 09/01/17 08:00 Blood Pressure 122/77 09/01/17 08:00 O2 Sat by Pulse Oximetry (%) 97 09/01/17 07:40 Constitutional: Yes: Well Nourished, Calm Eyes: Yes: WNL HENT: Yes: WNL Neck: Yes: WNL Cardiovascular: Yes: Regular Rate and Rhythm, S1, S2 Respiratory: Yes: Rales (bilateral crackles) Gastrointestinal: Yes: Normal Bowel Sounds, Soft Extremities: Yes: WNL Edema: No Labs: CBC, BMP INR 1.14 (0.82-1.09) 08/28/17 21:51 Problem List - Problems (1) Interstitial pulmonary fibrosis Code(s): J84.10 - PULMONARY FIBROSIS, UNSPECIFIED (2) Oxygen dependent Code(s): Z99.81 - DEPENDENCE ON SUPPLEMENTAL OXYGEN (3) Sarcoidosis Code(s): D86.9 - SARCOIDOSIS, UNSPECIFIED (4) Acute on chronic respiratory failure with hypoxia and hypercapnia Code(s): J96.21 - ACUTE AND CHRONIC RESPIRATORY FAILURE WITH HYPOXIA; J96.22 - ACUTE AND CHRONIC RESPIRATORY FAILURE WITH HYPERCAPNIA (5) CHF (congestive heart failure) Code(s): I50.9 - HEART FAILURE, UNSPECIFIED Qualifiers: Qualified Code(s): I50.9 - Heart failure, unspecified (6) Cardiac sarcoidosis Code(s): 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 (7) ICD (implantable cardioverter-defibrillator) in place Code(s): Z95.810 - PRESENCE OF AUTOMATIC (IMPLANTABLE) CARDIAC DEFIBRILLATOR (8) Pneumonia Code(s): J18.9 - PNEUMONIA, UNSPECIFIED ORGANISM Qualifiers: Pneumonia type: due to unspecified organism Laterality: left Lung location: unspecified part of lung Qualified Code(s): J18.9 - Pneumonia, unspecified organism (9) SOB (shortness of breath) Code(s): R06.02 - SHORTNESS OF BREATH (10) Sarcoid Code(s): D86.9 - SARCOIDOSIS, UNSPECIFIED (11) Sarcoidosis of lung Code(s): D86.0 - SARCOIDOSIS OF LUNG (12) Diastolic CHF Code(s): I50.30 - UNSPECIFIED DIASTOLIC (CONGESTIVE) HEART FAILURE Assessment/Plan A/P Pneumonia Chronic Hypoxic and Hypercapneic Respiratory Failure Pulmonary and Cardiac Sarcoidosis COPD h/o DVT h/o VT s/p ICD - antibiotics - continue medrol will reduce to q12h - inhaled bronchodilators - O2 to keep SpO2 >90% - continue anticoagulation DR EUBANKS
--- NOTE | 2017-09-01 16:32 | EKG ---
Test Reason : Blood Pressure : / mmHG Vent. Rate : 095 BPM Atrial Rate : 095 BPM P-R Int : 126 ms QRS Dur : 070 ms QT Int : 320 ms P-R-T Axes : 033 -13 057 degrees QTc Int : 402 ms SINUS RHYTHM WITH PREMATURE ATRIAL COMPLEXES OTHERWISE NORMAL ECG WHEN COMPARED WITH ECG OF 07-MAY-2017 08:30, NO SIGNIFICANT CHANGE WAS FOUND Confirmed by EDILBERTO SAAB, ANILA ([id number]) on 09/01/2017 4:31:34 PM Referred By: Iftikhar PLAZA Confirmed By:ANILA CASANOVA MD
--- NOTE | 2017-09-01 17:45 | PN ---
Teaching Attending Note Name of Resident: Mat Weston ATTENDING PHYSICIAN STATEMENT I saw and evaluated the patient. I reviewed the resident's note and discussed the case with the resident. I agree with the resident's findings and plan as documented. SUBJECTIVE: Patient feels slightly less SOB. OBJECTIVE: Vital Signs Period Temp Pulse Resp BP Sys/[place] Pulse Ox Last 24 Hr 97.9 F-98.1 F 75-96 18-20 105-122/64-77 97-99 HEART: S1S2, RRR LUNGS: Bilateral crackles ABDOMEN: Obese, soft, non-tender, non-distended, normal BS EXTREMITIES: No edema, bilateral calf tenderness Laboratory Results - last 24 hr 08/31/17 08/31/17 09/01/17 20:00 20:42 00:45 POC Glucometer 347 Vancomycin Pre-Dose 29.507 H* 19.266 H* 09/01/17 09/01/17 09/01/17 05:58 12:22 13:38 POC Glucometer 397 358 Vancomycin Pre-Dose 9.600 09/01/17 17:09 POC Glucometer 375 Vancomycin Pre-Dose Current Medications Generic Name Dose Route Start Last Admin Trade Name Freq PRN Reason Stop Dose Admin Acetylcysteine 600 mg 08/29/17 08:26 Mucomyst 20 Oral / Inh Use Only* NEB BID PRN Dyspnea Albuterol Sulfate 1 amp 08/29/17 02:37 08/29/17 07:24 Ventolin 0.083% Nebulizer Soln - NEB 1 amp Q4H PRN Administration SHORT OF BREATH/WHEEZING Albuterol/Ipratropium 1 amp 08/29/17 08:00 09/01/17 13:00 Duoneb - NEB 1 amp RTID [facility] Administration Apixaban 5 mg 08/29/17 10:00 09/01/17 09:44 Eliquis - PO 5 mg BID [facility] Administration Atorvastatin Calcium 10 mg 08/29/17 22:00 08/31/17 22:23 Lipitor - PO 10 mg HS [facility] Administration Calcium Carbonate 650 mg 08/29/17 10:00 09/01/17 09:45 Calcium Carbonate - PO 650 mg DAILY [facility] Administration Ferrous Sulfate 325 mg 08/29/17 10:00 09/01/17 09:39 Feosol - PO 325 mg DAILY [facility] Administration IV Flush 4 ml 05/23/18 09:43 Triple Lumen Flush IVPUSH PRN PRN Protocol Doxycycline Hyclate 100 mg/ 100 mls @ 50 mls/hr 08/29/17 10:00 09/01/17 09:40 Dextrose IVPB 50 mls/hr BID [facility] Administration Aztreonam 1 gm/ Dextrose 50 mls @ 100 mls/hr 08/30/17 11:30 09/01/17 09:39 IVPB 100 mls/hr Q8H-IV [facility] Administration Protocol Vancomycin HCl 1 gm in 200 mls @ 133.333 mls/hr 09/01/17 16:30 Vancomycin 1 Gm Premix - IVPB Q24H [facility] Protocol Insulin Aspart 1 vial 08/29/17 07:00 09/01/17 12:44 Novolog Vial Sliding Scale - SQ 12 unit TIDAC [facility] Administration Protocol Insulin Detemir 50 units 08/29/17 22:00 08/31/17 22:26 Levemir Vial SQ 50 units HS [facility] Administration Insulin Detemir 20 units 08/29/17 07:00 09/01/17 08:21 Levemir Vial SQ Not Given DAILY@0700 [facility] Methylprednisolone Sodium Succinate 40 mg 09/01/17 14:30 09/01/17 16:05 Solu-Medrol - IVPUSH 40 mg Q12H [facility] Administration Metoclopramide HCl 5 mg 08/29/17 07:00 09/01/17 12:49 Reglan - PO 5 mg TIDAC [facility] Administration Montelukast Sodium 10 mg 08/29/17 22:00 08/31/17 22:23 Singulair - PO 10 mg HS [facility] Administration Morphine Sulfate 15 mg 08/29/17 10:00 09/01/17 09:37 Msir - PO 15 mg BID [facility] Administration Nystatin 1 applic 08/29/17 10:00 09/01/17 09:40 Mycostatin Ointment - TP Not Given BID [facility] Nystatin 500,000 units 08/29/17 06:00 09/01/17 13:23 Nystatin Oral Suspension - PO Not Given Q6HPO [facility] Pantoprazole Sodium 40 mg 08/29/17 10:00 09/01/17 09:39 Protonix - PO 40 mg DAILY [facility] Administration Polyethylene Glycol 17 gm 08/29/17 10:00 09/01/17 09:45 Miralax (For Daily Use) - PO 17 gm DAILY [facility] Administration Pregabalin 75 mg 08/29/17 10:00 09/01/17 09:38 Lyrica - PO 75 mg BID [facility] Administration Fluticasone/Salmeterol 1 puff 08/29/17 10:00 09/01/17 13:28 Advair 100mcg/50mcg - IH 1 puff BID [facility] Administration Senna 1 tab 08/29/17 22:00 08/31/17 22:23 Senna - PO 1 tab HS [facility] Administration Senna/Docusate Sodium 1 tablet 08/29/17 10:00 09/01/17 09:43 Pericolace - PO 1 tablet BID [facility] Administration Sodium Chloride 2 spray 08/30/17 10:18 [place] Nasal [place] - NS BID PRN NASAL CONGESTION ASSESSMENT AND PLAN: This is a 62 year old woman with a history of sarcoidosis, COPD, HTN, hyperlipidemia, chronic hypoxic and hypercapnic respiratory failure, type 2 DM, DVT, v tach, AICD who presented to the ED with SOB and cough with green sputum several days after being discharged from a senior care. 1. Bilateral healthcare-associated pneumonia - Continue aztreonam, Vancomycin - Discontinue Doxycycline 2. Pulmonary and cardiac sacrcoidosis 3. Acute exacerbation of COPD - Continue SoluMedrol, Advair, Singulair, DuoNeb, albuterol nebs as needed, Mucomyst nebs as needed 4. Chronic hypoxic and hypercapnic respiratory failure - Continue oxygen to maintain saturation >90% 5. HTN - Meds held secondary to hypotension 6. Hyperlipidemia - Continue Lipitor 7. History of DVT - Continue Eliquis 8. Type 2 DM - Continue Levemir, Novolog sliding scale 9. History of v tach, AICD 10. Obesity with BMI 33.0
[2017-09-01] MEDS ORDERED: METOCLOPRAMIDE HCL 10 MG TABLET (FP) PO ONE (21:00)
[2017-09-01] MEDS: SENNOSIDES 8.6MG TABLET (FP) PO SCH (21:20)
[2017-09-01] MEDS: ATORVASTATIN CA 10 MG TABLET (FP) PO SCH (21:21)
[2017-09-01] MEDS: MONTELUKAST NA 10 MG TABLET PO SCH (21:21)
[2017-09-02] MEDS ORDERED: INSULIN (NOVOLOG) ASPART 100 UNITS/ML 10ML VIAL SQ ONE (00:21)
[2017-09-02] MEDS ORDERED: PT OWN MED DRAWER 7, Y5N ONE ×4 (01:07→17:28)
[2017-09-02] MEDS: AZTREONAM 1 GM in DEXTROSE 5%-WATER - 50 ML IVPB SCH ×3 (02:47→17:52)
[2017-09-02] MEDS: methylPREDNISolone NA SUCC 40 MG/1 ML VIAL IVPUSH SCH ×2 (02:49→14:56)
[2017-09-02] MEDS: NYSTATIN 500,000 UNITS/5 ML SUSPENSION PO SCH ×3 (05:20→17:56)
[2017-09-02] MEDS: INSULIN (LEVEMIR) 100 UNITS/ML UNITS SQ SCH ×2 (06:37→22:12)
[2017-09-02] MEDS: INSULIN SLIDING SCALE (NOVOLOG) 1 VIAL SQ SCH ×3 (06:41→17:53)
[2017-09-02] MEDS: METOCLOPRAMIDE HCL 10 MG TABLET (FP) PO SCH ×3 (06:42→17:53)
[2017-09-02 07:36] LABS: HEMATOCRIT 30.9 % (32.4-45.2); HEMOGLOBIN 10.1 GM/dL (10.7-15.3); MCHC 32.7 g/dl (32.0-36.0); MEAN CELL VOLUME 85.8 fl (80-96); MEAN PLT VOLUME 7.8 fl (7.5-11.1); PLATELET COUNT 273 K/MM3 (134-434); RDW 15.8 % (11.6-15.6); WHITE BLOOD COUNT 12.9 K/mm3 (4.0-10.0)
[2017-09-02] MEDS: ALBUTEROL SO4 2.5/IPRATROPIUM 0.5 INH SOL 3 ML VIAL.NEB. NEB SCH ×3 (07:42→21:10)
[2017-09-02 08:00] LABS: ANION GAP 5 (8-16); BLOOD UREA NITROGEN 26 mg/dL (7-18); CALCIUM 8.8 mg/dL (8.5-10.1); CHLORIDE 101 mmol/L (98-107); CO2 33 mmol/L (21-32); GLUCOSE,RANDOM 209 mg/dL (74-106); POTASSIUM 4.5 mmol/L (3.5-5.1); SODIUM 139 mmol/L (136-145)
[2017-09-02 08:06] LABS: CREATININE 0.6 mg/dL (0.55-1.02)
--- NOTE | 2017-09-02 09:06 | PN ---
Physical Exam: SUBJECTIVE: Patient seen and examined OBJECTIVE: Vital Signs Period Temp Pulse Resp BP Sys/[place] Pulse Ox Last 24 Hr 97.5 F-98.1 F 82-95 18-20 105-136/64-83 99 GENERAL: The patient is awake, alert, and fully oriented, in no acute distress. HEAD: Normal with no signs of trauma. EYES: PERRL, extraocular movements intact, sclera anicteric, conjunctiva clear. No ptosis. ENT: Ears normal, nares patent, oropharynx clear without exudates, moist mucous membranes. NECK: Trachea midline, full range of motion, supple. LUNGS: Breath sounds equal, clear to auscultation bilaterally, no wheezes, no crackles, no accessory muscle use. HEART: Regular rate and rhythm, S1, S2 without murmur, rub or gallop. ABDOMEN: Soft, nontender, nondistended, normoactive bowel sounds, no guarding, no rebound, no hepatosplenomegaly, no masses. EXTREMITIES: 2+ pulses, warm, well-perfused, no edema. NEUROLOGICAL: Cranial nerves II through XII grossly intact. Normal speech, gait not observed. PSYCH: Normal mood, normal affect. SKIN: Warm, dry, normal turgor, no rashes or lesions noted Laboratory Results - last 24 hr 09/01/17 09/01/17 09/01/17 05:58 12:22 13:38 WBC RBC Hgb Hct MCV MCH MCHC RDW Plt Count MPV Sodium Potassium Chloride Carbon Dioxide Anion Gap BUN Creatinine POC Glucometer 397 358 Random Glucose Calcium Ferritin Vancomycin Pre-Dose 9.600 09/01/17 09/01/17 09/01/17 17:09 20:42 23:46 WBC RBC Hgb Hct MCV MCH MCHC RDW Plt Count MPV Sodium Potassium Chloride Carbon Dioxide Anion Gap BUN Creatinine POC Glucometer 375 409 408 Random Glucose Calcium Ferritin Vancomycin Pre-Dose 09/02/17 09/02/17 09/02/17 06:00 06:00 06:35 WBC 12.9 H RBC 3.60 Hgb 10.1 L Hct 30.9 L MCV 85.8 MCH 28.0 MCHC 32.7 RDW 15.8 H Plt Count 273 MPV 7.8 Sodium 139 Potassium 4.5 Chloride 101 Carbon Dioxide 33 H Anion Gap 5 L BUN 26 H Creatinine 0.6 POC Glucometer 236 Random Glucose 209 H Calcium 8.8 Ferritin 117.896 Vancomycin Pre-Dose Active Medications Generic Name Dose Route Start Last Admin Trade Name Freq PRN Reason Stop Dose Admin Acetylcysteine 600 mg 08/29/17 08:26 Mucomyst 20 Oral / Inh Use Only* NEB BID PRN Dyspnea Albuterol Sulfate 1 amp 08/29/17 02:37 08/29/17 07:24 Ventolin 0.083% Nebulizer Soln - NEB 1 amp Q4H PRN Administration SHORT OF BREATH/WHEEZING Albuterol/Ipratropium 1 amp 08/29/17 08:00 09/02/17 07:42 Duoneb - NEB 1 amp RTID [facility] Administration Apixaban 5 mg 08/29/17 10:00 09/01/17 21:21 Eliquis - PO 5 mg BID [facility] Administration Atorvastatin Calcium 10 mg 08/29/17 22:00 09/01/17 21:21 Lipitor - PO 10 mg HS [facility] Administration Calcium Carbonate 650 mg 08/29/17 10:00 09/01/17 09:45 Calcium Carbonate - PO 650 mg DAILY [facility] Administration Ferrous Sulfate 325 mg 08/29/17 10:00 09/01/17 09:39 Feosol - PO 325 mg DAILY [facility] Administration IV Flush 4 ml 09/01/17 09:43 Triple Lumen Flush IVPUSH PRN PRN Protocol Aztreonam 1 gm/ Dextrose 50 mls @ 100 mls/hr 08/30/17 11:30 09/02/17 02:47 IVPB 100 mls/hr Q8H-IV [facility] Administration Protocol Vancomycin HCl 1 gm in 200 mls @ 133.333 mls/hr 09/01/17 16:30 09/01/17 17:51 Vancomycin 1 Gm Premix - IVPB 133.333 mls/hr Q24H [facility] Administration Protocol Insulin Aspart 1 vial 08/29/17 07:00 09/02/17 06:41 Novolog Vial Sliding Scale - SQ 6 unit TIDAC [facility] Administration Protocol Insulin Detemir 50 units 08/29/17 22:00 09/01/17 21:25 Levemir Vial SQ 50 units HS [facility] Administration Insulin Detemir 20 units 08/29/17 07:00 09/02/17 06:37 Levemir Vial SQ 20 unit DAILY@0700 [facility] Administration Methylprednisolone Sodium Succinate 40 mg 09/01/17 14:30 09/02/17 02:49 Solu-Medrol - IVPUSH 40 mg Q12H [facility] Administration Metoclopramide HCl 5 mg 08/29/17 07:00 09/02/17 06:42 Reglan - PO 5 mg TIDAC [facility] Administration Montelukast Sodium 10 mg 08/29/17 22:00 09/01/17 21:21 Singulair - PO 10 mg HS [facility] Administration Morphine Sulfate 15 mg 08/29/17 10:00 09/01/17 21:21 Msir - PO 15 mg BID [facility] Administration Nystatin 1 applic 08/29/17 10:00 09/01/17 21:26 Mycostatin Ointment - TP 1 applic BID [facility] Administration Nystatin 500,000 units 08/29/17 06:00 09/02/17 05:20 Nystatin Oral Suspension - PO Not Given Q6HPO [facility] Pantoprazole Sodium 40 mg 08/29/17 10:00 09/01/17 09:39 Protonix - PO 40 mg DAILY [facility] Administration Polyethylene Glycol 17 gm 08/29/17 10:00 09/01/17 09:45 Miralax (For Daily Use) - PO 17 gm DAILY [facility] Administration Pregabalin 75 mg 08/29/17 10:00 09/01/17 21:21 Lyrica - PO 75 mg BID [facility] Administration Fluticasone/Salmeterol 1 puff 08/29/17 10:00 09/01/17 21:24 Advair 100mcg/50mcg - IH 1 puff BID [facility] Administration Senna 1 tab 08/29/17 22:00 09/01/17 21:20 Senna - PO 1 tab HS [facility] Administration Senna/Docusate Sodium 1 tablet 08/29/17 10:00 09/01/17 21:21 Pericolace - PO 1 tablet BID [facility] Administration Sodium Chloride 2 spray 08/30/17 10:18 [place] Nasal [place] - NS BID PRN NASAL CONGESTION ASSESSMENT/PLAN:
[2017-09-02] MEDS: FLUTICASONE/SALMETEROL 100 MCG/50 MCG DISKUS IH SCH ×2 (10:27→22:14)
[2017-09-02] MEDS: morphine SULFATE IMMEDIATE RELEASE 30 MG TAB PO SCH ×2 (10:28→22:13)
[2017-09-02] MEDS: FERROUS SO4 325 MG TABLET (FP) PO SCH (10:28)
[2017-09-02] MEDS: SENNOSIDES/DOCUSATE COMBO (SENNA PLUS) TABLET (UD) PO SCH ×2 (10:29→22:11)
[2017-09-02] MEDS: PREGABALIN 75 MG CAPSULE PO SCH ×2 (10:31→22:11)
[2017-09-02] MEDS: PANTOPRAZOLE 40 MG TABLET (FP) PO SCH (10:31)
[2017-09-02] MEDS: POLYETHYLENE GLYCOL 3350 119 GM BTL PO SCH (10:33)
[2017-09-02] MEDS: NYSTATIN 100000 UNIT/GM TOPICAL OINTMENT 15 GM TUBE TP SCH ×2 (10:35→22:14)
[2017-09-02] MEDS: CALCIUM CARBONATE 650 MG TABLET PO SCH (10:35)
[2017-09-02] MEDS: APIXABAN 5 MG TABLET PO SCH ×2 (10:35→22:12)
--- NOTE | 2017-09-02 10:43 | PN ---
Progress Note (short form) - Note Progress Note: PULMONARY Breathing slowly improving. Less cough and wheezing. +chills. Last Vital Signs Temp Pulse Resp BP Pulse Ox 97.5 F L 82 20 136/78 99 09/02/17 05:56 09/02/17 05:56 09/02/17 05:56 09/02/17 05:56 09/01/17 20:44 Gen: less tachypneic Heart: RRR Lung: bilateral rales, rhonchi Abd: soft, nontender Ext: no edema CBC, BMP 09/02/17 06:00 09/02/17 06:00 Active Medications Acetylcysteine (Mucomyst 20 Oral / Inh Use Only*) 600 mg NEB BID PRN PRN Reason: Dyspnea Albuterol Sulfate (Ventolin 0.083% Nebulizer Soln -) 1 amp NEB Q4H PRN PRN Reason: SHORT OF BREATH/WHEEZING Last Admin: 08/29/17 07:24 Dose: 1 amp Albuterol/Ipratropium (Duoneb -) 1 amp NEB RTID [facility] Last Admin: 09/02/17 07:42 Dose: 1 amp Apixaban (Eliquis -) 5 mg PO BID [facility] Last Admin: 09/02/17 10:35 Dose: 5 mg Atorvastatin Calcium (Lipitor -) 10 mg PO HS [facility] Last Admin: 09/01/17 21:21 Dose: 10 mg Calcium Carbonate (Calcium Carbonate -) 650 mg PO DAILY [facility] Last Admin: 09/02/17 10:35 Dose: 650 mg Ferrous Sulfate (Feosol -) 325 mg PO DAILY [facility] Last Admin: 09/02/17 10:28 Dose: 325 mg IV Flush (Triple Lumen Flush) 4 ml IVPUSH PRN PRN PRN Reason: Protocol Aztreonam 1 gm/ Dextrose 50 mls @ 100 mls/hr IVPB Q8H-IV [facility]; Protocol Last Admin: 09/02/17 10:27 Dose: 100 mls/hr Vancomycin HCl (Vancomycin 1 Gm Premix -) 1 gm in 200 mls @ 133.333 mls/hr IVPB Q24H [facility]; Protocol Last Admin: 09/01/17 17:51 Dose: 133.333 mls/hr Insulin Aspart (Novolog Vial Sliding Scale -) 1 vial SQ TIDAC [facility]; Protocol Last Admin: 09/02/17 06:41 Dose: 6 unit Insulin Detemir (Levemir Vial) 50 units SQ HS [facility] Last Admin: 09/01/17 21:25 Dose: 50 units Insulin Detemir (Levemir Vial) 20 units SQ DAILY@0700 [facility] Last Admin: 09/02/17 06:37 Dose: 20 unit Methylprednisolone Sodium Succinate (Solu-Medrol -) 40 mg IVPUSH Q12H [facility] Last Admin: 09/02/17 02:49 Dose: 40 mg Metoclopramide HCl (Reglan -) 5 mg PO TIDAC [facility] Last Admin: 09/02/17 10:30 Dose: 5 mg Montelukast Sodium (Singulair -) 10 mg PO HS [facility] Last Admin: 09/01/17 21:21 Dose: 10 mg Morphine Sulfate (Msir -) 15 mg PO BID [facility] Last Admin: 09/02/17 10:28 Dose: 15 mg Nystatin (Mycostatin Ointment -) 1 applic TP BID [facility] Last Admin: 09/02/17 10:35 Dose: 1 applic Nystatin (Nystatin Oral Suspension -) 500,000 units PO Q6HPO [facility] Last Admin: 09/02/17 05:20 Dose: Not Given Pantoprazole Sodium (Protonix -) 40 mg PO DAILY [facility] Last Admin: 09/02/17 10:31 Dose: 40 mg Polyethylene Glycol (Miralax (For Daily Use) -) 17 gm PO DAILY [facility] Last Admin: 09/02/17 10:33 Dose: 17 gm Pregabalin (Lyrica -) 75 mg PO BID [facility] Last Admin: 09/02/17 10:31 Dose: 75 mg Fluticasone/Salmeterol (Advair 100mcg/50mcg -) 1 puff IH BID [facility] Last Admin: 09/02/17 10:27 Dose: 1 puff Senna (Senna -) 1 tab PO HS [facility] Last Admin: 09/01/17 21:20 Dose: 1 tab [place]na/Docusate Sodium (Pericolace -) 1 tablet PO BID [facility] Last Admin: 09/02/17 10:29 Dose: 1 tablet Sodium Chloride ([place] Nasal [place] -) 2 spray NS BID PRN PRN Reason: NASAL CONGESTION A/P Pneumonia Chronic Hypoxic and Hypercapneic Respiratory Failure Pulmonary and Cardiac Sarcoidosis COPD h/o DVT h/o VT s/p ICD - continue antibiotics - continue medrol at current dose, can decrease to daily dosing in AM if continues to improve - inhaled bronchodilators - O2 to keep SpO2 >90% - continue anticoagulation
--- NOTE | 2017-09-02 16:20 | PN ---
Teaching Attending Note Name of Resident: Mat Weston ATTENDING PHYSICIAN STATEMENT I saw and evaluated the patient. I reviewed the resident's note and discussed the case with the resident. I agree with the resident's findings and plan as documented. SUBJECTIVE: Patient feels her breathing is improving. OBJECTIVE: Vital Signs Period Temp Pulse Resp BP Sys/[place] Pulse Ox Last 24 Hr 97.5 F-98.3 F 82-127 18-20 118-136/76-89 99 HEART: S1S2, RRR LUNGS: Bilateral crackles ABDOMEN: Obese, soft, non-tender, non-distended, normal BS EXTREMITIES: No edema, bilateral calf tenderness Laboratory Results - last 24 hr 09/01/17 09/01/17 09/01/17 17:09 20:42 23:46 WBC RBC Hgb Hct MCV MCH MCHC RDW Plt Count MPV Sodium Potassium Chloride Carbon Dioxide Anion Gap BUN Creatinine POC Glucometer 375 409 408 Random Glucose Calcium Ferritin 09/02/17 09/02/17 09/02/17 06:00 06:00 06:35 WBC 12.9 H RBC 3.60 Hgb 10.1 L Hct 30.9 L MCV 85.8 MCH 28.0 MCHC 32.7 RDW 15.8 H Plt Count 273 MPV 7.8 Sodium 139 Potassium 4.5 Chloride 101 Carbon Dioxide 33 H Anion Gap 5 L BUN 26 H Creatinine 0.6 POC Glucometer 236 Random Glucose 209 H Calcium 8.8 Ferritin 117.896 09/02/17 09/02/17 12:05 14:27 WBC RBC Hgb Hct MCV MCH MCHC RDW Plt Count MPV Sodium Potassium Chloride Carbon Dioxide Anion Gap BUN Creatinine POC Glucometer 328 360 Random Glucose Calcium Ferritin Current Medications Generic Name Dose Route Start Last Admin Trade Name Freq PRN Reason Stop Dose Admin Acetylcysteine 600 mg 08/29/17 08:26 Mucomyst 20 Oral / Inh Use Only* NEB BID PRN Dyspnea Albuterol Sulfate 1 amp 08/29/17 02:37 08/29/17 07:24 Ventolin 0.083% Nebulizer Soln - NEB 1 amp Q4H PRN Administration SHORT OF BREATH/WHEEZING Albuterol/Ipratropium 1 amp 08/29/17 08:00 09/02/17 14:18 Duoneb - NEB 1 amp RTID EYAL Administration Apixaban 5 mg 08/29/17 10:00 09/02/17 10:35 Eliquis - PO 5 mg BID EYAL Administration Atorvastatin Calcium 10 mg 08/29/17 22:00 09/01/17 21:21 Lipitor - PO 10 mg HS EYAL Administration Calcium Carbonate 650 mg 08/29/17 10:00 09/02/17 10:35 Calcium Carbonate - PO 650 mg DAILY EYAL Administration Ferrous Sulfate 325 mg 08/29/17 10:00 09/02/17 10:28 Feosol - PO 325 mg DAILY EYAL Administration IV Flush 4 ml 09/01/17 09:43 Triple Lumen Flush IVPUSH PRN PRN Protocol Aztreonam 1 gm/ Dextrose 50 mls @ 100 mls/hr 08/30/17 11:30 09/02/17 10:27 IVPB 100 mls/hr Q8H-IV EYAL Administration Protocol Vancomycin HCl 1 gm in 200 mls @ 133.333 mls/hr 09/01/17 16:30 09/01/17 17:51 Vancomycin 1 Gm Premix - IVPB 133.333 mls/hr Q24H EYAL Administration Protocol Insulin Aspart 1 vial 08/29/17 07:00 09/02/17 12:08 Novolog Vial Sliding Scale - SQ 10 unit TIDAC EYAL Administration Protocol Insulin Detemir 50 units 08/29/17 22:00 09/01/17 21:25 Levemir Vial SQ 50 units HS EYAL Administration Insulin Detemir 20 units 08/29/17 07:00 09/02/17 06:37 Levemir Vial SQ 20 unit DAILY@0700 E[facility]AL Administration Methylprednisolone Sodium Succinate 40 mg 09/01/17 14:30 09/02/17 14:56 Solu-Medrol - IVPUSH 40 mg Q12H EYAL Administration Metoclopramide HCl 5 mg 08/29/17 07:00 09/02/17 10:30 Reglan - PO 5 mg TIDAC EYAL Administration Montelukast Sodium 10 mg 08/29/17 22:00 09/01/17 21:21 Singulair - PO 10 mg HS EYAL Administration Morphine Sulfate 15 mg 08/29/17 10:00 09/02/17 10:28 Msir - PO 15 mg BID EYAL Administration Nystatin 1 applic 08/29/17 10:00 09/02/17 10:35 Mycostatin Ointment - TP 1 applic BID EYAL Administration Nystatin 500,000 units 08/29/17 06:00 09/02/17 11:50 Nystatin Oral Suspension - PO Not Given Q6HPO EYAL Pantoprazole Sodium 40 mg 08/29/17 10:00 09/02/17 10:31 Protonix - PO 40 mg DAILY EYAL Administration Polyethylene Glycol 17 gm 08/29/17 10:00 09/02/17 10:33 Miralax (For Daily Use) - PO 17 gm DAILY EYAL Administration Pregabalin 75 mg 08/29/17 10:00 09/02/17 10:31 Lyrica - PO 75 mg BID EYAL Administration Fluticasone/Salmeterol 1 puff 08/29/17 10:00 09/02/17 10:27 Advair 100mcg/50mcg - IH 1 puff BID EYAL Administration Senna 1 tab 08/29/17 22:00 09/01/17 21:20 Senna - PO 1 tab HS EYAL Administration Senna/Docusate Sodium 1 tablet 08/29/17 10:00 09/02/17 10:29 Pericolace - PO 1 tablet BID EYAL Administration Sodium Chloride 2 spray 08/30/17 10:18 [place] Nasal [place] - NS BID PRN NASAL CONGESTION ASSESSMENT AND PLAN: This is a 62 year old woman with a history of sarcoidosis, COPD, HTN, hyperlipidemia, chronic hypoxic and hypercapnic respiratory failure, type 2 DM, DVT, v tach, AICD who presented to the ED with SOB and cough with green sputum several days after being discharged from a assisted. 1. Bilateral healthcare-associated pneumonia - Continue aztreonam, Vancomycin - Doxycycline discontinued 2. Pulmonary and cardiac sacrcoidosis 3. Acute exacerbation of COPD - Continue SoluMedrol, Advair, Singulair, DuoNeb, albuterol nebs as needed, Mucomyst nebs as needed 4. Chronic hypoxic and hypercapnic respiratory failure - Continue oxygen to maintain saturation >90% 5. HTN - Meds held secondary to hypotension 6. Hyperlipidemia - Continue Lipitor 7. History of DVT - Continue Eliquis 8. Type 2 DM - Continue Levemir, Novolog sliding scale 9. History of v tach, AICD 10. Obesity with BMI 33.0
[2017-09-02] MEDS: ALBUTEROL SO4 0.083% IH SOL 2.5 MG/3 ML VIAL.NEB. NEB PRN (17:33)
[2017-09-02] MEDS: VANCOMYCIN 1 GM PREMIX - 1 GM/200 ML BAG IVPB SCH (17:55)
[2017-09-02] MEDS ORDERED: dilTIAZem HCL 30 MG TABLET (FP) PO SCH (18:00)
--- NOTE | 2017-09-02 19:49 | PN ---
Progress Note, Physician History of Present Illness: Awake, alert No c/o chest pain/ dyspnea Less cough No sputum production Appears more comfortable Breathing non-labored on nasal cannula O2 Tolerating antibiotics - Current Medication List Current Medications: Active Medications Acetylcysteine (Mucomyst 20 Oral / Inh Use Only*) 600 mg NEB BID PRN PRN Reason: Dyspnea Albuterol Sulfate (Ventolin 0.083% Nebulizer Soln -) 1 amp NEB Q4H PRN PRN Reason: SHORT OF BREATH/WHEEZING Last Admin: 09/02/17 17:33 Dose: 1 amp Albuterol/Ipratropium (Duoneb -) 1 amp NEB RTID [facility] Last Admin: 09/02/17 14:18 Dose: 1 amp Apixaban (Eliquis -) 5 mg PO BID [facility] Last Admin: 09/02/17 10:35 Dose: 5 mg Atorvastatin Calcium (Lipitor -) 10 mg PO HS [facility] Last Admin: 09/01/17 21:21 Dose: 10 mg Calcium Carbonate (Calcium Carbonate -) 650 mg PO DAILY [facility] Last Admin: 09/02/17 10:35 Dose: 650 mg Diltiazem HCl (Cardizem -) 30 mg PO Q6HPO [facility] Ferrous Sulfate (Feosol -) 325 mg PO DAILY [facility] Last Admin: 09/02/17 10:28 Dose: 325 mg IV Flush (Triple Lumen Flush) 4 ml IVPUSH PRN PRN PRN Reason: Protocol Aztreonam 1 gm/ Dextrose 50 mls @ 100 mls/hr IVPB Q8H-IV EYAL; Protocol Last Admin: 09/02/17 17:52 Dose: 100 mls/hr Vancomycin HCl (Vancomycin 1 Gm Premix -) 1 gm in 200 mls @ 133.333 mls/hr IVPB Q24H [facility]; Protocol Last Admin: 09/02/17 17:55 Dose: 133.333 mls/hr Insulin Aspart (Novolog Vial Sliding Scale -) 1 vial SQ TIDAC [facility]; Protocol Last Admin: 09/02/17 17:53 Dose: 8 unit Insulin Detemir (Levemir Vial) 50 units SQ HS [facility] Last Admin: 09/01/17 21:25 Dose: 50 units Insulin Detemir (Levemir Vial) 20 units SQ DAILY@0700 [facility] Last Admin: 09/02/17 06:37 Dose: 20 unit Methylprednisolone Sodium Succinate (Solu-Medrol -) 40 mg IVPUSH Q12H [facility] Last Admin: 09/02/17 14:56 Dose: 40 mg Metoclopramide HCl (Reglan -) 5 mg PO TIDAC [facility] Last Admin: 09/02/17 17:53 Dose: 5 mg Montelukast Sodium (Singulair -) 10 mg PO HS [facility] Last Admin: 09/01/17 21:21 Dose: 10 mg Morphine Sulfate (Msir -) 15 mg PO BID [facility] Last Admin: 09/02/17 10:28 Dose: 15 mg Nystatin (Mycostatin Ointment -) 1 applic TP BID [facility] Last Admin: 09/02/17 10:35 Dose: 1 applic Nystatin (Nystatin Oral Suspension -) 500,000 units PO Q6HPO [facility] Last Admin: 09/02/17 17:56 Dose: Not Given Pantoprazole Sodium (Protonix -) 40 mg PO DAILY [facility] Last Admin: 09/02/17 10:31 Dose: 40 mg Polyethylene Glycol (Miralax (For Daily Use) -) 17 gm PO DAILY [facility] Last Admin: 09/02/17 10:33 Dose: 17 gm Pregabalin (Lyrica -) 75 mg PO BID [facility] Last Admin: 09/02/17 10:31 Dose: 75 mg Fluticasone/Salmeterol (Advair 100mcg/50mcg -) 1 puff IH BID [facility] Last Admin: 09/02/17 10:27 Dose: 1 puff Senna (Senna -) 1 tab PO [facility] Last Admin: 09/01/17 21:20 Dose: 1 tab Senna/Docusate Sodium (Pericolace -) 1 tablet PO BID [facility] Last Admin: 09/02/17 10:29 Dose: 1 tablet Sodium Chloride ([place] Nasal [place] -) 2 spray NS BID PRN PRN Reason: NASAL CONGESTION - Objective Vital Signs: Vital Signs Temperature 98.3 F 09/02/17 14:32 Pulse Rate 127 H 09/02/17 14:32 Respiratory Rate 18 09/02/17 14:32 Blood Pressure 133/89 09/02/17 14:32 O2 Sat by Pulse Oximetry (%) 99 09/02/17 17:33 Constitutional: Yes: No Distress Eyes: Yes: Conjunctiva Clear Cardiovascular: Yes: Regular Rate and Rhythm, S1, S2 Respiratory: Yes: Other (+ bilateral rhonchi/ crepitations) Gastrointestinal: Yes: Normal Bowel Sounds, Soft. No: Tenderness Labs: CBC, BMP 09/02/17 06:00 09/02/17 06:00 INR, PTT INR 1.14 (0.82-1.09) 08/28/17 21:51 Assessment/Plan Bilateral pneumonia Exacerbation COPD Pulmonary sacrcoid Multiple antibiotic allergies Continue vancomycin/aztreonam
[2017-09-02] MEDS: SENNOSIDES 8.6MG TABLET (FP) PO SCH (22:10)
[2017-09-02] MEDS: ATORVASTATIN CA 10 MG TABLET (FP) PO SCH (22:11)
[2017-09-02] MEDS: MONTELUKAST NA 10 MG TABLET PO SCH (22:11)
[2017-09-03] MEDS: AZTREONAM 1 GM in DEXTROSE 5%-WATER - 50 ML IVPB SCH ×3 (01:02→17:32)
[2017-09-03] MEDS: NYSTATIN 500,000 UNITS/5 ML SUSPENSION PO SCH ×4 (01:02→17:32)
[2017-09-03] MEDS: dilTIAZem HCL 60 MG TABLET (FP) PO SCH ×4 (01:15→17:32)
[2017-09-03] MEDS: methylPREDNISolone NA SUCC 40 MG/1 ML VIAL IVPUSH SCH ×2 (02:04→13:55)
[2017-09-03] MEDS: ALBUTEROL SO4 0.083% IH SOL 2.5 MG/3 ML VIAL.NEB. NEB PRN (02:14)
[2017-09-03] MEDS: INSULIN (LEVEMIR) 100 UNITS/ML UNITS SQ SCH ×2 (06:04→21:44)
[2017-09-03] MEDS: INSULIN SLIDING SCALE (NOVOLOG) 1 VIAL SQ SCH ×3 (06:05→17:31)
[2017-09-03 06:08] LABS: SERUM IRON SATURATION 28 % (15-55); TOTAL IRON BINDING CAPACITY 239 ug/dL (250-450); UIBC 172 ug/dL (118-369)
[2017-09-03] MEDS: METOCLOPRAMIDE HCL 10 MG TABLET (FP) PO SCH ×3 (06:11→16:30)
[2017-09-03] MEDS ORDERED: INSULIN (NOVOLOG) ASPART 100 UNITS/ML 10ML VIAL ONE ×2 (06:15→11:53)
[2017-09-03] MEDS ORDERED: INSULIN (LEVEMIR) 100 UNITS/ML UNITS SQ ONE (07:14)
[2017-09-03] MEDS: ALBUTEROL SO4 2.5/IPRATROPIUM 0.5 INH SOL 3 ML VIAL.NEB. NEB SCH ×3 (08:03→20:24)
--- NOTE | 2017-09-03 08:53 | PN ---
Progress Note, Physician Chief Complaint: much more comfortable and less dyspneic today - Current Medication List Current Medications: Active Medications Acetylcysteine (Mucomyst 20 Oral / Inh Use Only*) 600 mg NEB BID PRN PRN Reason: Dyspnea Albuterol Sulfate (Ventolin 0.083% Nebulizer Soln -) 1 amp NEB Q4H PRN PRN Reason: SHORT OF BREATH/WHEEZING Last Admin: 09/03/17 02:14 Dose: 1 amp Albuterol/Ipratropium (Duoneb -) 1 amp NEB RTID [facility] Last Admin: 09/03/17 08:03 Dose: 1 amp Apixaban (Eliquis -) 5 mg PO BID [facility] Last Admin: 09/02/17 22:12 Dose: 5 mg Atorvastatin Calcium (Lipitor -) 10 mg PO HS [facility] Last Admin: 09/02/17 22:11 Dose: 10 mg Calcium Carbonate (Calcium Carbonate -) 650 mg PO DAILY [facility] Last Admin: 09/02/17 10:35 Dose: 650 mg Diltiazem HCl (Cardizem -) 30 mg PO Q6HPO [facility] Last Admin: 09/03/17 06:12 Dose: 30 mg Ferrous Sulfate (Feosol -) 325 mg PO DAILY [facility] Last Admin: 09/02/17 10:28 Dose: 325 mg IV Flush (Triple Lumen Flush) 4 ml IVPUSH PRN PRN PRN Reason: Protocol Aztreonam 1 gm/ Dextrose 50 mls @ 100 mls/hr IVPB Q8H-IV EYAL; Protocol Last Admin: 09/03/17 01:02 Dose: 100 mls/hr Vancomycin HCl (Vancomycin 1 Gm Premix -) 1 gm in 200 mls @ 133.333 mls/hr IVPB Q24H [facility]; Protocol Last Admin: 09/02/17 17:55 Dose: 133.333 mls/hr Insulin Aspart (Novolog Vial Sliding Scale -) 1 vial SQ TIDAC [facility]; Protocol Last Admin: 09/03/17 06:05 Dose: 10 unit Insulin Detemir (Levemir Vial) 50 units SQ HS [facility] Last Admin: 09/02/17 22:12 Dose: 50 units Insulin Detemir (Levemir Vial) 20 units SQ DAILY@0700 [facility] Last Admin: 09/03/17 06:04 Dose: 20 unit Methylprednisolone Sodium Succinate (Solu-Medrol -) 40 mg IVPUSH Q12H [facility] Last Admin: 09/03/17 02:04 Dose: 40 mg Metoclopramide HCl (Reglan -) 5 mg PO TIDAC [facility] Last Admin: 09/03/17 06:11 Dose: 5 mg Montelukast Sodium (Singulair -) 10 mg PO HS [facility] Last Admin: 09/02/17 22:11 Dose: 10 mg Morphine Sulfate (Msir -) 15 mg PO BID [facility] Last Admin: 09/02/17 22:13 Dose: 15 mg Nystatin (Mycostatin Ointment -) 1 applic TP BID [facility] Last Admin: 09/02/17 22:14 Dose: 1 applic Nystatin (Nystatin Oral Suspension -) 500,000 units PO Q6HPO [facility] Last Admin: 09/03/17 06:04 Dose: 500,000 units Pantoprazole Sodium (Protonix -) 40 mg PO DAILY [facility] Last Admin: 09/02/17 10:31 Dose: 40 mg Polyethylene Glycol (Miralax (For Daily Use) -) 17 gm PO DAILY [facility] Last Admin: 09/02/17 10:33 Dose: 17 gm Pregabalin (Lyrica -) 75 mg PO BID [facility] Last Admin: 09/02/17 22:11 Dose: 75 mg Fluticasone/Salmeterol (Advair 100mcg/50mcg -) 1 puff IH BID [facility] Last Admin: 09/02/17 22:14 Dose: 1 puff Senna (Senna -) 1 tab PO [facility] Last Admin: 09/02/17 22:10 Dose: 1 tab Senna/Docusate Sodium (Pericolace -) 1 tablet PO BID [facility] Last Admin: 09/02/17 22:11 Dose: 1 tablet Sodium Chloride ([place] Nasal [place] -) 2 spray NS BID PRN PRN Reason: NASAL CONGESTION - Objective Vital Signs: Vital Signs Temperature 97.9 F 09/03/17 05:53 Pulse Rate 94 H 09/03/17 05:53 Respiratory Rate 18 09/03/17 05:53 Blood Pressure 126/87 09/03/17 05:53 O2 Sat by Pulse Oximetry (%) 98 09/03/17 08:03 Constitutional: Yes: No Distress Cardiovascular: Yes: Regular Rate and Rhythm Respiratory: Yes: Rhonchi Gastrointestinal: Yes: Soft Edema: Yes Edema: LLE: 1+, RLE: 1+ Neurological: Yes: Alert, Oriented Labs: CBC, BMP 09/02/17 06:00 09/02/17 06:00 INR, PTT INR 1.14 (0.82-1.09) 08/28/17 21:51 Assessment/Plan IMP: Sarcoidosis w/ cardiac involvement (MRI) Chronic lung disease Suspected PNA H/o VT, syncope s/p ICD H/o DVT REC: 1. Rx of possible PNA as per pulmonary: abx, supplimental O2, steroid taper 2.Cont Eliquis (h/o DVT) 3. BP improved holding Lasix and Cardizem. Cardizem now resumed, short acting. She is on Eliquis for DVT, cannot confirm any h/o of PAF. Would be helpful for patient to have VNS to help keep track of weight and help manage outpatient Lasix Difficult for her to come to office.
--- NOTE | 2017-09-03 10:48 | EKG ---
Test Reason : Blood Pressure : / mmHG Vent. Rate : 089 BPM Atrial Rate : 089 BPM P-R Int : 130 ms QRS Dur : 082 ms QT Int : 326 ms P-R-T Axes : 031 -06 043 degrees QTc Int : 396 ms SINUS RHYTHM WITH OCCASIONAL PREMATURE VENTRICULAR COMPLEXES Confirmed by JOHNNY BRYANT MD ([id number]) on 09/03/2017 10:48:21 AM Referred By: Confirmed By:JOHNNY BRYANT MD
[2017-09-03] MEDS: PREGABALIN 75 MG CAPSULE PO SCH ×2 (11:00→21:44)
[2017-09-03] MEDS: SENNOSIDES/DOCUSATE COMBO (SENNA PLUS) TABLET (UD) PO SCH ×2 (11:00→21:44)
[2017-09-03] MEDS: POLYETHYLENE GLYCOL 3350 119 GM BTL PO SCH (11:00)
[2017-09-03] MEDS: APIXABAN 5 MG TABLET PO SCH ×2 (11:00→21:42)
[2017-09-03] MEDS: PANTOPRAZOLE 40 MG TABLET (FP) PO SCH (11:00)
[2017-09-03] MEDS: FERROUS SO4 325 MG TABLET (FP) PO SCH (11:00)
[2017-09-03] MEDS: morphine SULFATE IMMEDIATE RELEASE 30 MG TAB PO SCH ×2 (11:00→21:47)
[2017-09-03] MEDS: CALCIUM CARBONATE 650 MG TABLET PO SCH (11:00)
[2017-09-03] MEDS: FLUTICASONE/SALMETEROL 100 MCG/50 MCG DISKUS IH SCH ×2 (11:34→21:41)
[2017-09-03] MEDS: NYSTATIN 100000 UNIT/GM TOPICAL OINTMENT 15 GM TUBE TP SCH ×2 (11:35→21:42)
--- NOTE | 2017-09-03 13:29 | PN ---
Progress Note, Physician History of Present Illness: PULMONARY ALERT,CLINICALLY IMPROVING ,LESS DYSPNEIC - Current Medication List Current Medications: Active Medications Acetylcysteine (Mucomyst 20 Oral / Inh Use Only*) 600 mg NEB BID PRN PRN Reason: Dyspnea Albuterol Sulfate (Ventolin 0.083% Nebulizer Soln -) 1 amp NEB Q4H PRN PRN Reason: SHORT OF BREATH/WHEEZING Last Admin: 09/03/17 02:14 Dose: 1 amp Albuterol/Ipratropium (Duoneb -) 1 amp NEB RTID [facility] Last Admin: 09/03/17 08:03 Dose: 1 amp Apixaban (Eliquis -) 5 mg PO BID [facility] Last Admin: 09/03/17 11:00 Dose: 5 mg Atorvastatin Calcium (Lipitor -) 10 mg PO HS [facility] Last Admin: 09/02/17 22:11 Dose: 10 mg Calcium Carbonate (Calcium Carbonate -) 650 mg PO DAILY [facility] Last Admin: 09/03/17 11:00 Dose: 650 mg Diltiazem HCl (Cardizem -) 30 mg PO Q6HPO [facility] Last Admin: 09/03/17 12:23 Dose: 30 mg Ferrous Sulfate (Feosol -) 325 mg PO DAILY [facility] Last Admin: 09/03/17 11:00 Dose: 325 mg IV Flush (Triple Lumen Flush) 4 ml IVPUSH PRN PRN PRN Reason: Protocol Aztreonam 1 gm/ Dextrose 50 mls @ 100 mls/hr IVPB Q8H-IV [facility]; Protocol Last Admin: 09/03/17 11:28 Dose: 100 mls/hr Vancomycin HCl (Vancomycin 1 Gm Premix -) 1 gm in 200 mls @ 133.333 mls/hr IVPB Q24H [facility]; Protocol Last Admin: 09/02/17 17:55 Dose: 133.333 mls/hr Insulin Aspart (Novolog Vial Sliding Scale -) 1 vial SQ TIDAC [facility]; Protocol Last Admin: 09/03/17 12:00 Dose: 10 unit Insulin Detemir (Levemir Vial) 50 units SQ HS [facility] Last Admin: 09/02/17 22:12 Dose: 50 units Insulin Detemir (Levemir Vial) 20 units SQ DAILY@0700 [facility] Last Admin: 09/03/17 06:04 Dose: 20 unit Methylprednisolone Sodium Succinate (Solu-Medrol -) 40 mg IVPUSH Q12H [facility] Last Admin: 09/03/17 02:04 Dose: 40 mg Metoclopramide HCl (Reglan -) 5 mg PO TIDAC [facility] Last Admin: 09/03/17 11:22 Dose: 5 mg Montelukast Sodium (Singulair -) 10 mg PO HS [facility] Last Admin: 09/02/17 22:11 Dose: 10 mg Morphine Sulfate (Msir -) 15 mg PO BID [facility] Last Admin: 09/03/17 11:00 Dose: 15 mg Nystatin (Mycostatin Ointment -) 1 applic TP BID [facility] Last Admin: 09/03/17 11:35 Dose: 1 applic Nystatin (Nystatin Oral Suspension -) 500,000 units PO Q6HPO [facility] Last Admin: 09/03/17 12:24 Dose: 500,000 units Pantoprazole Sodium (Protonix -) 40 mg PO DAILY [facility] Last Admin: 09/03/17 11:00 Dose: 40 mg Polyethylene Glycol (Miralax (For Daily Use) -) 17 gm PO DAILY [facility] Last Admin: 09/03/17 11:00 Dose: 17 gm Pregabalin (Lyrica -) 75 mg PO BID [facility] Last Admin: 09/03/17 11:00 Dose: 75 mg Fluticasone/Salmeterol (Advair 100mcg/50mcg -) 1 puff IH BID [facility] Last Admin: 09/03/17 11:34 Dose: 1 puff Senna (Senna -) 1 tab PO [facility] Last Admin: 09/02/17 22:10 Dose: 1 tab Senna/Docusate Sodium (Pericolace -) 1 tablet PO BID [facility] Last Admin: 09/03/17 11:00 Dose: 1 tablet Sodium Chloride ([place] Nasal [place] -) 2 spray NS BID PRN PRN Reason: NASAL CONGESTION - Objective Vital Signs: Vital Signs Temperature 97.9 F 09/03/17 05:53 Pulse Rate 94 H 09/03/17 05:53 Respiratory Rate 18 09/03/17 05:53 Blood Pressure 126/87 09/03/17 05:53 O2 Sat by Pulse Oximetry (%) 98 09/03/17 08:03 Constitutional: Yes: Well Nourished, Calm Eyes: Yes: WNL HENT: Yes: WNL Neck: Yes: WNL Cardiovascular: Yes: Regular Rate and Rhythm, S1, S2 Respiratory: Yes: Rhonchi (BILATERAL CRACKLES AND SCATTERED RHONCHI) Gastrointestinal: Yes: Normal Bowel Sounds, Soft Extremities: Yes: WNL Edema: No Labs: CBC, BMP Problem List - Problems (1) Interstitial pulmonary fibrosis Code(s): J84.10 - PULMONARY FIBROSIS, UNSPECIFIED (2) Oxygen dependent Code(s): Z99.81 - DEPENDENCE ON SUPPLEMENTAL OXYGEN (3) Sarcoidosis Code(s): D86.9 - SARCOIDOSIS, UNSPECIFIED (4) Acute on chronic respiratory failure with hypoxia and hypercapnia Code(s): J96.21 - ACUTE AND CHRONIC RESPIRATORY FAILURE WITH HYPOXIA; J96.22 - ACUTE AND CHRONIC RESPIRATORY FAILURE WITH HYPERCAPNIA (5) CHF (congestive heart failure) Code(s): I50.9 - HEART FAILURE, UNSPECIFIED Qualifiers: Qualified Code(s): I50.9 - Heart failure, unspecified (6) Cardiac sarcoidosis Code(s): 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 (7) ICD (implantable cardioverter-defibrillator) in place Code(s): Z95.810 - PRESENCE OF AUTOMATIC (IMPLANTABLE) CARDIAC DEFIBRILLATOR (8) Pneumonia Code(s): J18.9 - PNEUMONIA, UNSPECIFIED ORGANISM Qualifiers: Pneumonia type: due to unspecified organism Laterality: left Lung location: unspecified part of lung Qualified Code(s): J18.9 - Pneumonia, unspecified organism (9) SOB (shortness of breath) Code(s): R06.02 - SHORTNESS OF BREATH (10) Sarcoid Code(s): D86.9 - SARCOIDOSIS, UNSPECIFIED (11) Sarcoidosis of lung Code(s): D86.0 - SARCOIDOSIS OF LUNG (12) Diastolic CHF Code(s): I50.30 - UNSPECIFIED DIASTOLIC (CONGESTIVE) HEART FAILURE Assessment/Plan A/P Pneumonia Chronic Hypoxic and Hypercapneic Respiratory Failure Pulmonary and Cardiac Sarcoidosis COPD h/o DVT h/o VT s/p ICD - antibiotics - continue medrol - inhaled bronchodilators - O2 to keep SpO2 >90% - continue anticoagulation DR EUBANKS
--- NOTE | 2017-09-03 16:06 | PN ---
Progress Note, Physician History of Present Illness: Awake, alert No c/o chest pain/ dyspnea No sputum production Appears more comfortable Breathing non-labored on nasal cannula O2 Tolerating antibiotics - Current Medication List Current Medications: Active Medications Acetylcysteine (Mucomyst 20 Oral / Inh Use Only*) 600 mg NEB BID PRN PRN Reason: Dyspnea Albuterol Sulfate (Ventolin 0.083% Nebulizer Soln -) 1 amp NEB Q4H PRN PRN Reason: SHORT OF BREATH/WHEEZING Last Admin: 09/03/17 02:14 Dose: 1 amp Albuterol/Ipratropium (Duoneb -) 1 amp NEB RTID [facility] Last Admin: 09/03/17 13:49 Dose: 1 amp Apixaban (Eliquis -) 5 mg PO BID [facility] Last Admin: 09/03/17 11:00 Dose: 5 mg Atorvastatin Calcium (Lipitor -) 10 mg PO HS [facility] Last Admin: 09/02/17 22:11 Dose: 10 mg Calcium Carbonate (Calcium Carbonate -) 650 mg PO DAILY [facility] Last Admin: 09/03/17 11:00 Dose: 650 mg Diltiazem HCl (Cardizem -) 30 mg PO Q6HPO [facility] Last Admin: 09/03/17 12:23 Dose: 30 mg Ferrous Sulfate (Feosol -) 325 mg PO DAILY [facility] Last Admin: 09/03/17 11:00 Dose: 325 mg IV Flush (Triple Lumen Flush) 4 ml IVPUSH PRN PRN PRN Reason: Protocol Aztreonam 1 gm/ Dextrose 50 mls @ 100 mls/hr IVPB Q8H-IV [facility]; Protocol Last Admin: 09/03/17 11:28 Dose: 100 mls/hr Vancomycin HCl (Vancomycin 1 Gm Premix -) 1 gm in 200 mls @ 133.333 mls/hr IVPB Q24H [facility]; Protocol Last Admin: 09/02/17 17:55 Dose: 133.333 mls/hr Insulin Aspart (Novolog Vial Sliding Scale -) 1 vial SQ TIDAC [facility]; Protocol Last Admin: 09/03/17 12:00 Dose: 10 unit Insulin Detemir (Levemir Vial) 50 units SQ HS [facility] Last Admin: 09/02/17 22:12 Dose: 50 units Insulin Detemir (Levemir Vial) 20 units SQ DAILY@0700 [facility] Last Admin: 09/03/17 06:04 Dose: 20 unit Methylprednisolone Sodium Succinate (Solu-Medrol -) 40 mg IVPUSH Q12H [facility] Last Admin: 09/03/17 13:55 Dose: 40 mg Metoclopramide HCl (Reglan -) 5 mg PO TIDAC [facility] Last Admin: 09/03/17 11:22 Dose: 5 mg Montelukast Sodium (Singulair -) 10 mg PO HS [facility] Last Admin: 09/02/17 22:11 Dose: 10 mg Morphine Sulfate (Msir -) 15 mg PO BID [facility] Last Admin: 09/03/17 11:00 Dose: 15 mg Nystatin (Mycostatin Ointment -) 1 applic TP BID [facility] Last Admin: 09/03/17 11:35 Dose: 1 applic Nystatin (Nystatin Oral Suspension -) 500,000 units PO Q6HPO [facility] Last Admin: 09/03/17 12:24 Dose: 500,000 units Pantoprazole Sodium (Protonix -) 40 mg PO DAILY [facility] Last Admin: 09/03/17 11:00 Dose: 40 mg Polyethylene Glycol (Miralax (For Daily Use) -) 17 gm PO DAILY [facility] Last Admin: 09/03/17 11:00 Dose: 17 gm Pregabalin (Lyrica -) 75 mg PO BID [facility] Last Admin: 09/03/17 11:00 Dose: 75 mg Fluticasone/Salmeterol (Advair 100mcg/50mcg -) 1 puff IH BID [facility] Last Admin: 09/03/17 11:34 Dose: 1 puff Senna (Senna -) 1 tab PO [facility] Last Admin: 09/02/17 22:10 Dose: 1 tab Senna/Docusate Sodium (Pericolace -) 1 tablet PO BID [facility] Last Admin: 09/03/17 11:00 Dose: 1 tablet Sodium Chloride ([place] Nasal [place] -) 2 spray NS BID PRN PRN Reason: NASAL CONGESTION - Objective Vital Signs: Vital Signs Temperature 98.4 F 09/03/17 13:31 Pulse Rate 87 09/03/17 13:31 Respiratory Rate 18 09/03/17 13:31 Blood Pressure 123/82 09/03/17 13:31 O2 Sat by Pulse Oximetry (%) 96 09/03/17 09:00 Constitutional: Yes: No Distress, Obese Cardiovascular: Yes: Regular Rate and Rhythm, S1, S2 Respiratory: Yes: Other (+ bilateral rhonchi, crepitations) Labs: CBC, BMP 09/02/17 06:00 09/02/17 06:00 INR, PTT INR 1.14 (0.82-1.09) 08/28/17 21:51 Assessment/Plan Bilateral pneumonia Exacerbation COPD Pulmonary sacrcoid Multiple antibiotic allergies Continue vancomycin/aztreonam Day #6 Switch to po next 24h Oral options extremely limited- has tolerated doxycycline. Suggest 100mg bid x 7d
--- NOTE | 2017-09-03 17:40 | PN ---
Teaching Attending Note Name of Resident: Mat Weston ATTENDING PHYSICIAN STATEMENT I saw and evaluated the patient. I reviewed the resident's note and discussed the case with the resident. I agree with the resident's findings and plan as documented. SUBJECTIVE: Patient says she feels much better. Yesterday, she had episodes of tachycardia. OBJECTIVE: Vital Signs Period Temp Pulse Resp BP Sys/[place]o Pulse Ox Last 24 Hr 97.2 F-98.5 F 87-96 18-20 122-133/80-97 96-99 HEART: S1S2, RRR LUNGS: Bilateral crackles ABDOMEN: Obese, soft, non-tender, non-distended, normal BS EXTREMITIES: No edema, bilateral calf tenderness Laboratory Results - last 24 hr 09/02/17 09/02/17 09/03/17 06:00 22:10 06:02 POC Glucometer 287 350 Iron 67 TIBC 239 L Iron Saturation 28 09/03/17 11:38 POC Glucometer 308 Iron TIBC Iron Saturation Current Medications Generic Name Dose Route Start Last Admin Trade Name Freq PRN Reason Stop Dose Admin Acetylcysteine 600 mg 08/29/17 08:26 Mucomyst 20 Oral / Inh Use Only* NEB BID PRN Dyspnea Albuterol Sulfate 1 amp 08/29/17 02:37 09/03/17 02:14 Ventolin 0.083% Nebulizer Soln - NEB 1 amp Q4H PRN Administration SHORT OF BREATH/WHEEZING Albuterol/Ipratropium 1 amp 08/29/17 08:00 09/03/17 13:49 Duoneb - NEB 1 amp RTID [facility] Administration Apixaban 5 mg 08/29/17 10:00 09/03/17 11:00 Eliquis - PO 5 mg BID [facility] Administration Atorvastatin Calcium 10 mg 08/29/17 22:00 09/02/17 22:11 Lipitor - PO 10 mg HS [facility] Administration Calcium Carbonate 650 mg 08/29/17 10:00 09/03/17 11:00 Calcium Carbonate - PO 650 mg DAILY [facility] Administration Diltiazem HCl 30 mg 09/02/17 19:47 09/03/17 12:23 Cardizem - PO 30 mg Q6HPO [facility] Administration Ferrous Sulfate 325 mg 08/29/17 10:00 09/03/17 11:00 Feosol - PO 325 mg DAILY [facility] Administration IV Flush 4 ml 09/01/17 09:43 Triple Lumen Flush IVPUSH PRN PRN Protocol Aztreonam 1 gm/ Dextrose 50 mls @ 100 mls/hr 08/30/17 11:30 09/03/17 11:28 IVPB 100 mls/hr Q8H-IV [facility] Administration Protocol Vancomycin HCl 1 gm in 200 mls @ 133.333 mls/hr 09/01/17 16:30 09/02/17 17:55 Vancomycin 1 Gm Premix - IVPB 133.333 mls/hr Q24H [facility] Administration Protocol Insulin Aspart 1 vial 08/29/17 07:00 09/03/17 12:00 Novolog Vial Sliding Scale - SQ 10 unit TIDAC [facility] Administration Protocol Insulin Detemir 50 units 08/29/17 22:00 09/02/17 22:12 Levemir Vial SQ 50 units HS [facility] Administration Insulin Detemir 20 units 08/29/17 07:00 09/03/17 06:04 Levemir Vial SQ 20 unit DAILY@0700 [facility] Administration Methylprednisolone Sodium Succinate 40 mg 09/01/17 14:30 09/03/17 13:55 Solu-Medrol - IVPUSH 40 mg Q12H [facility] Administration Metoclopramide HCl 5 mg 08/29/17 07:00 09/03/17 11:22 Reglan - PO 5 mg TIDAC [facility] Administration Montelukast Sodium 10 mg 08/29/17 22:00 09/02/17 22:11 Singulair - PO 10 mg HS [facility] Administration Morphine Sulfate 15 mg 08/29/17 10:00 09/03/17 11:00 Msir - PO 15 mg BID [facility] Administration Nystatin 1 applic 08/29/17 10:00 09/03/17 11:35 Mycostatin Ointment - TP 1 applic BID [facility] Administration Nystatin 500,000 units 08/29/17 06:00 09/03/17 12:24 Nystatin Oral Suspension - PO 500,000 units Q6HPO [facility] Administration Pantoprazole Sodium 40 mg 08/29/17 10:00 09/03/17 11:00 Protonix - PO 40 mg DAILY [facility] Administration Polyethylene Glycol 17 gm 08/29/17 10:00 09/03/17 11:00 Miralax (For Daily Use) - PO 17 gm DAILY [facility] Administration Pregabalin 75 mg 08/29/17 10:00 09/03/17 11:00 Lyrica - PO 75 mg BID [facility] Administration Fluticasone/Salmeterol 1 puff 08/29/17 10:00 09/03/17 11:34 Advair 100mcg/50mcg - IH 1 puff BID [facility] Administration Senna 1 tab 08/29/17 22:00 09/02/17 22:10 Senna - PO 1 tab HS [facility] Administration Senna/Docusate Sodium 1 tablet 08/29/17 10:00 09/03/17 11:00 Pericolace - PO 1 tablet BID [facility] Administration Sodium Chloride 2 spray 08/30/17 10:18 [place] Nasal [place] - NS BID PRN NASAL CONGESTION ASSESSMENT AND PLAN: This is a 62 year old woman with a history of sarcoidosis, COPD, HTN, hyperlipidemia, chronic hypoxic and hypercapnic respiratory failure, type 2 DM, DVT, v tach, AICD who presented to the ED with SOB and cough with green sputum several days after being [place] a [place] [facility] [place]. 1. Bilateral healthcare-associated pneumonia - Continue aztreonam, Vancomycin (day 6) - plan to change to doxycycline 100 mg PO bid x 7 days tomorrow 2. Pulmonary and cardiac sarcoidosis 3. Acute exacerbation of COPD - Continue SoluMedrol, Advair, Singulair, DuoNeb, albuterol nebs as needed, Mucomyst nebs as needed 4. Chronic hypoxic and hypercapnic respiratory failure - Continue oxygen to maintain saturation >90% 5. HTN - Meds were held secondary to hypotension - Cardizem restarted yesterday for tachycardia - Lasix remains on hold 6. Hyperlipidemia - Continue Lipitor 7. History of DVT - Continue Eliquis 8. Type 2 DM - Continue Levemir, Novolog sliding scale 9. History of v tach, AICD 10. Obesity with BMI 33.0
[2017-09-03] MEDS: VANCOMYCIN 1 GM PREMIX - 1 GM/200 ML BAG IVPB SCH (17:58)
[2017-09-03] MEDS: ATORVASTATIN CA 10 MG TABLET (FP) PO SCH (21:43)
[2017-09-03] MEDS: SENNOSIDES 8.6MG TABLET (FP) PO SCH (21:43)
[2017-09-03] MEDS: MONTELUKAST NA 10 MG TABLET PO SCH (21:44)
[2017-09-04] MEDS: NYSTATIN 500,000 UNITS/5 ML SUSPENSION PO SCH ×3 (00:50→12:13)
[2017-09-04] MEDS: dilTIAZem HCL 60 MG TABLET (FP) PO SCH ×3 (00:52→12:11)
[2017-09-04] MEDS: AZTREONAM 1 GM in DEXTROSE 5%-WATER - 50 ML IVPB SCH (00:59)
[2017-09-04] MEDS: methylPREDNISolone NA SUCC 40 MG/1 ML VIAL IVPUSH SCH ×3 (02:27→13:35)
[2017-09-04] MEDS ORDERED: LACTULOSE 20 GM/30 ML UDC (FOR ORAL USE ONLY) PO ONE (04:08)
[2017-09-04] MEDS: INSULIN (LEVEMIR) 100 UNITS/ML UNITS SQ SCH (06:23)
[2017-09-04] MEDS: METOCLOPRAMIDE HCL 10 MG TABLET (FP) PO SCH ×2 (06:23→12:11)
[2017-09-04] MEDS: INSULIN SLIDING SCALE (NOVOLOG) 1 VIAL SQ SCH ×2 (06:24→12:07)
--- NOTE | 2017-09-04 07:24 | PN ---
Physical Exam: UPDATE 1: Pt is requesting her steroids to be increased back to q8h. Explained to pt the need to taper back to baseline dose and to avoid extended time for high dose steroids. SUBJECTIVE: Pt reports feeling better with decreased work of breathing. She did not use her BiLevel machine last night. She is eager to go home. OBJECTIVE: Vital Signs Period Temp Pulse Resp BP Sys/Londono Pulse Ox Last 24 Hr 97.2 F-98.4 F 81-102 18-20 118-140/72-93 96-98 GENERAL: NAD awake, alert, and fully oriented, sitting in bed HEENT: EOMI, JAMES, dry-moist mucosa, L IJ site C/D/I with biopatch and sterile tegaderm in place LUNGS: Diffuse crackles throughout. Bibasilar wheezing noted. No accessory muscle use. On 4LNC with humidified oxygen HEART: RRR, S1, S2 without murmur ABDOMEN: Soft, normoactive BS, nondistended, mildly tender diffusely today, no guarding. Mass in RUQ hard to touch EXTREMITIES: 2+ pulses, warm, no edema. SKIN: Warm, dry, no rashes or lesions noted Laboratory Results - last 24 hr 09/03/17 09/03/17 09/03/17 11:38 17:16 21:41 POC Glucometer 308 316 376 09/04/17 05:56 POC Glucometer 360 Active Medications Generic Name Dose Route Start Last Admin Trade Name Freq PRN Reason Stop Dose Admin Acetylcysteine 600 mg 08/29/17 08:26 Mucomyst 20 Oral / Inh Use Only* NEB BID PRN Dyspnea Albuterol Sulfate 1 amp 08/29/17 02:37 09/03/17 02:14 Ventolin 0.083% Nebulizer Soln - NEB 1 amp Q4H PRN Administration SHORT OF BREATH/WHEEZING Albuterol/Ipratropium 1 amp 08/29/17 08:00 09/03/17 20:24 Duoneb - NEB 1 amp RTID [facility] Administration Apixaban 5 mg 08/29/17 10:00 09/03/17 21:42 Eliquis - PO 5 mg BID [facility] Administration Atorvastatin Calcium 10 mg 08/29/17 22:00 09/03/17 21:43 Lipitor - PO 10 mg HS [facility] Administration Calcium Carbonate 650 mg 08/29/17 10:00 09/03/17 11:00 Calcium Carbonate - PO 650 mg DAILY [facility] Administration Diltiazem HCl 30 mg 09/02/17 19:47 09/04/17 06:24 Cardizem - PO 30 mg Q6HPO [facility] Administration Ferrous Sulfate 325 mg 08/29/17 10:00 09/03/17 11:00 Feosol - PO 325 mg DAILY [facility] Administration IV Flush 4 ml 09/01/17 09:43 Triple Lumen Flush IVPUSH PRN PRN Protocol Aztreonam 1 gm/ Dextrose 50 mls @ 100 mls/hr 08/30/17 11:30 09/04/17 00:59 IVPB 100 mls/hr Q8H-IV [facility] Administration Protocol Vancomycin HCl 1 gm in 200 mls @ 133.333 mls/hr 09/01/17 16:30 09/03/17 17:58 Vancomycin 1 Gm Premix - IVPB 133.333 mls/hr Q24H [facility] Administration Protocol Insulin Aspart 1 vial 08/29/17 07:00 09/04/17 06:24 Novolog Vial Sliding Scale - SQ 12 unit TIDAC [facility] Administration Protocol Insulin Detemir 50 units 08/29/17 22:00 09/03/17 21:44 Levemir Vial SQ 50 units HS [facility] Administration Insulin Detemir 20 units 08/29/17 07:00 09/04/17 06:23 Levemir Vial SQ 20 unit DAILY@0700 [facility] Administration Methylprednisolone Sodium Succinate 40 mg 09/01/17 14:30 09/04/17 02:27 Solu-Medrol - IVPUSH 40 mg Q12H [facility] Administration Metoclopramide HCl 5 mg 08/29/17 07:00 09/04/17 06:23 Reglan - PO 5 mg TIDAC [facility] Administration Montelukast Sodium 10 mg 08/29/17 22:00 09/03/17 21:44 Singulair - PO 10 mg HS [facility] Administration Morphine Sulfate 15 mg 08/29/17 10:00 09/03/17 21:47 Msir - PO 15 mg BID [facility] Administration Nystatin 1 applic 08/29/17 10:00 09/03/17 21:42 Mycostatin Ointment - TP 1 applic BID [facility] Administration Nystatin 500,000 units 08/29/17 06:00 09/04/17 06:23 Nystatin Oral Suspension - PO 500,000 units Q6HPO [facility] Administration Pantoprazole Sodium 40 mg 08/29/17 10:00 09/03/17 11:00 Protonix - PO 40 mg DAILY [facility] Administration Polyethylene Glycol 17 gm 08/29/17 10:00 09/03/17 11:00 Miralax (For Daily Use) - PO 17 gm DAILY [facility] Administration Pregabalin 75 mg 08/29/17 10:00 09/03/17 21:44 Lyrica - PO 75 mg BID [facility] Administration Fluticasone/Salmeterol 1 puff 08/29/17 10:00 09/03/17 21:41 Advair 100mcg/50mcg - IH 1 puff BID [facility] Administration Senna 1 tab 08/29/17 22:00 09/03/17 21:43 Senna - PO 1 tab HS [facility] Administration Senna/Docusate Sodium 1 tablet 08/29/17 10:00 09/03/17 21:44 Pericolace - PO 1 tablet BID [facility] Administration Sodium Chloride 2 spray 08/30/17 10:18 [place] Nasal [place] - NS BID PRN NASAL CONGESTION ASSESSMENT/PLAN: 1) Pneumonia, bilaterally --Flu negative --Blood cultures negative thus far. ID on board covering for HCAP: (L IJ TLC in place) --Continue Aztreonam 1gm q8h --Continue Vancomycin 1gm qDaily --Continue Albuterol and Mucomyst combo TID 2) Sarcoidosis --Pulmonary --Pulmonology on board --Continue same dose medrol with tapering tomorrow --Continue Duonebs TID --Continue Advair 100/50mcg --Continue Singulair 10mg HS -- --Cardiac --s/p AICD/PPM --Cardiology on board --normotensive with lasix held --med rec in progress 3) Narrow complex tachycardia --Prior EKg showd PAC's with possible multifocal atrial complexes --Episodes improved while on Cardizem 30mg PO TID --Previous records state narrow complex tachycardia, but not truly documented in an EKG --med rec in progress 4) History of hypertension --Holding anti-hypertensive medications currently due to hypotension now; currently normotensive without 5) Chronic pain --Continue MS Contin 15mg PO BID --Continue bowel regiment Pericolace 1 tab PO BID Senna 1 tab PO HS Lyrica 75mg PO BID 6) H/o DVT --Continue Eliquis 5mg PO BID 7) Hyperglycemia -- Levemir 20 U AM and 50 U PM --ISS --BGM ACHS FEN: Fluids: Avoid for now Electrolyte abnormalities: None currently Nutrition: Diabetic and sodium-controlled diet PPX: DVT - Already on Eliquis GI - Protonix 40mg IVP Dispo: Continue monitoring on /S Case discussed with Dr. Lauren Weston, DO - IM PGY-1 Visit type - Emergency Visit Emergency Visit: No - New Patient This patient is new to me today: No - Critical Care Critical Care patient: No
[2017-09-04 08:07] LABS: HEMATOCRIT 32.6 % (32.4-45.2); HEMOGLOBIN 10.6 GM/dL (10.7-15.3); MCH 28.1 pg (25.7-33.7); MCHC 32.6 g/dl (32.0-36.0); MEAN CELL VOLUME 86.2 fl (80-96); MEAN PLT VOLUME 8.1 fl (7.5-11.1); PLATELET COUNT 301 K/MM3 (134-434); RBC 3.78 M/mm3 (3.60-5.2); WHITE BLOOD COUNT 13.7 K/mm3 (4.0-10.0)
[2017-09-04 08:24] LABS: CHLORIDE 99 mmol/L (98-107); POTASSIUM 4.4 mmol/L (3.5-5.1); SODIUM 140 mmol/L (136-145)
--- NOTE | 2017-09-04 08:34 | PN ---
Progress Note, Physician - Current Medication List Current Medications: Active Medications Acetylcysteine (Mucomyst 20 Oral / Inh Use Only*) 600 mg NEB BID PRN PRN Reason: Dyspnea Albuterol Sulfate (Ventolin 0.083% Nebulizer Soln -) 1 amp NEB Q4H PRN PRN Reason: SHORT OF BREATH/WHEEZING Last Admin: 09/03/17 02:14 Dose: 1 amp Albuterol/Ipratropium (Duoneb -) 1 amp NEB RTID [facility] Last Admin: 09/03/17 20:24 Dose: 1 amp Apixaban (Eliquis -) 5 mg PO BID [facility] Last Admin: 09/03/17 21:42 Dose: 5 mg Atorvastatin Calcium (Lipitor -) 10 mg PO HS [facility] Last Admin: 09/03/17 21:43 Dose: 10 mg Calcium Carbonate (Calcium Carbonate -) 650 mg PO DAILY [facility] Last Admin: 09/03/17 11:00 Dose: 650 mg Diltiazem HCl (Cardizem -) 30 mg PO Q6HPO [facility] Last Admin: 09/04/17 06:24 Dose: 30 mg Ferrous Sulfate (Feosol -) 325 mg PO DAILY [facility] Last Admin: 09/03/17 11:00 Dose: 325 mg IV Flush (Triple Lumen Flush) 4 ml IVPUSH PRN PRN PRN Reason: Protocol Aztreonam 1 gm/ Dextrose 50 mls @ 100 mls/hr IVPB Q8H-IV [facility]; Protocol Last Admin: 09/04/17 00:59 Dose: 100 mls/hr Vancomycin HCl (Vancomycin 1 Gm Premix -) 1 gm in 200 mls @ 133.333 mls/hr IVPB Q24H [facility]; Protocol Last Admin: 09/03/17 17:58 Dose: 133.333 mls/hr Insulin Aspart (Novolog Vial Sliding Scale -) 1 vial SQ TIDAC [facility]; Protocol Last Admin: 09/04/17 06:24 Dose: 12 unit Insulin Detemir (Levemir Vial) 50 units SQ HS [facility] Last Admin: 09/03/17 21:44 Dose: 50 units Insulin Detemir (Levemir Vial) 20 units SQ DAILY@0700 [facility] Last Admin: 09/04/17 06:23 Dose: 20 unit Methylprednisolone Sodium Succinate (Solu-Medrol -) 40 mg IVPUSH Q12H [facility] Last Admin: 09/04/17 02:27 Dose: 40 mg Metoclopramide HCl (Reglan -) 5 mg PO TIDAC [facility] Last Admin: 09/04/17 06:23 Dose: 5 mg Montelukast Sodium (Singulair -) 10 mg PO HS [facility] Last Admin: 09/03/17 21:44 Dose: 10 mg Morphine Sulfate (Msir -) 15 mg PO BID [facility] Last Admin: 09/03/17 21:47 Dose: 15 mg Nystatin (Mycostatin Ointment -) 1 applic TP BID [facility] Last Admin: 09/03/17 21:42 Dose: 1 applic Nystatin (Nystatin Oral Suspension -) 500,000 units PO Q6HPO [facility] Last Admin: 09/04/17 06:23 Dose: 500,000 units Pantoprazole Sodium (Protonix -) 40 mg PO DAILY [facility] Last Admin: 09/03/17 11:00 Dose: 40 mg Polyethylene Glycol (Miralax (For Daily Use) -) 17 gm PO DAILY [facility] Last Admin: 09/03/17 11:00 Dose: 17 gm Pregabalin (Lyrica -) 75 mg PO BID [facility] Last Admin: 09/03/17 21:44 Dose: 75 mg Fluticasone/Salmeterol (Advair 100mcg/50mcg -) 1 puff IH BID [facility] Last Admin: 09/03/17 21:41 Dose: 1 puff Senna (Senna -) 1 tab PO HS [facility] Last Admin: 09/03/17 21:43 Dose: 1 tab Senna/Docusate Sodium (Pericolace -) 1 tablet PO BID [facility] Last Admin: 09/03/17 21:44 Dose: 1 tablet Sodium Chloride ([place] Nasal [place] -) 2 spray NS BID PRN PRN Reason: NASAL CONGESTION - Objective Vital Signs: Vital Signs Temperature 98.4 F 09/04/17 05:33 Pulse Rate 87 09/04/17 05:33 Respiratory Rate 20 09/04/17 05:33 Blood Pressure 127/80 09/04/17 05:33 O2 Sat by Pulse Oximetry (%) 97 09/03/17 20:50 Eyes: Yes: WNL, Conjunctiva Clear, EOM Intact HENT: Yes: WNL, Atraumatic, Normocephalic Neck: Yes: WNL, Supple, Trachea Midline Cardiovascular: Yes: WNL, Regular Rate and Rhythm Respiratory: Yes: WNL, Regular, CTA Bilaterally Gastrointestinal: Yes: WNL, Normal Bowel Sounds Genitourinary: Yes: WNL Musculoskeletal: Yes: WNL Extremities: Yes: WNL Edema: Yes Integumentary: Yes: WNL Neurological: Yes: WNL, Alert, Oriented ...Motor Strength: WNL Psychiatric: Yes: WNL Labs: CBC, BMP 09/04/17 06:00 INR, PTT INR 1.14 (0.82-1.09) 08/28/17 21:51 Assessment/Plan IMP: Sarcoidosis w/ cardiac involvement (MRI) Chronic lung disease Suspected PNA H/o VT, syncope s/p ICD H/o DVT REC: 1. Rx of possible PNA as per pulmonary: abx, supplimental O2, steroid taper 2.Cont Eliquis (h/o DVT) 3. BP improved holding Lasix and Cardizem. Cardizem now resumed, short acting. She is on Eliquis for DVT, cannot confirm any h/o of PAF. Would be helpful for patient to have VNS to help keep track of weight and help manage outpatient Lasix Difficult for her to come to office. coverage for Dr. Lockhart
[2017-09-04] MEDS: ALBUTEROL SO4 2.5/IPRATROPIUM 0.5 INH SOL 3 ML VIAL.NEB. NEB SCH ×2 (08:45→14:37)
[2017-09-04 08:53] LABS: ANION GAP 11 (8-16); BLOOD UREA NITROGEN 23 mg/dL (7-18); CALCIUM 9.1 mg/dL (8.5-10.1); CO2 30 mmol/L (21-32); CREATININE 0.8 mg/dL (0.55-1.02)
[2017-09-04 09:40] LABS: GLUCOSE,RANDOM 371 mg/dL (74-106)
--- NOTE | 2017-09-04 09:46 | PN ---
Progress Note (short form) - Note Progress Note: no complaints. requesting to go home. denies CP, SOB, fever, chills, cough. states she has no difficutly ambulating ith home O2 Current Medications Generic Name Dose Route Start Last Admin Trade Name Freq PRN Reason Stop Dose Admin Acetylcysteine 600 mg 08/29/17 08:26 Mucomyst 20 Oral / Inh Use Only* NEB BID PRN Dyspnea Albuterol Sulfate 1 amp 08/29/17 02:37 09/03/17 02:14 Ventolin 0.083% Nebulizer Soln - NEB 1 amp Q4H PRN Administration SHORT OF BREATH/WHEEZING Albuterol/Ipratropium 1 amp 08/29/17 08:00 09/04/17 08:45 Duoneb - NEB 1 amp RTID EYAL Administration Apixaban 5 mg 08/29/17 10:00 09/03/17 21:42 Eliquis - PO 5 mg BID EYAL Administration Atorvastatin Calcium 10 mg 08/29/17 22:00 09/03/17 21:43 Lipitor - PO 10 mg HS EYAL Administration Calcium Carbonate 650 mg 08/29/17 10:00 09/03/17 11:00 Calcium Carbonate - PO 650 mg DAILY EYAL Administration Diltiazem HCl 30 mg 09/02/17 19:47 09/04/17 06:24 Cardizem - PO 30 mg Q6HPO EYAL Administration Ferrous Sulfate 325 mg 08/29/17 10:00 09/03/17 11:00 Feosol - PO 325 mg DAILY EYAL Administration IV Flush 4 ml 09/01/17 09:43 Triple Lumen Flush IVPUSH PRN PRN Protocol Aztreonam 1 gm/ Dextrose 50 mls @ 100 mls/hr 08/30/17 11:30 09/04/17 00:59 IVPB 100 mls/hr Q8H-IV EYAL Administration Protocol Vancomycin HCl 1 gm in 200 mls @ 133.333 mls/hr 09/01/17 16:30 09/03/17 17:58 Vancomycin 1 Gm Premix - IVPB 133.333 mls/hr Q24H EYAL Administration Protocol Insulin Aspart 1 vial 08/29/17 07:00 09/04/17 06:24 Novolog Vial Sliding Scale - SQ 12 unit TIDAC EYAL Administration Protocol Insulin Detemir 50 units 08/29/17 22:00 09/03/17 21:44 Levemir Vial SQ 50 units HS EYAL Administration Insulin Detemir 20 units 08/29/17 07:00 09/04/17 06:23 Levemir Vial SQ 20 unit DAILY@0700 EYAL Administration Methylprednisolone Sodium Succinate 40 mg 09/01/17 14:30 09/04/17 02:27 Solu-Medrol - IVPUSH 40 mg Q12H EYAL Administration Metoclopramide HCl 5 mg 08/29/17 07:00 09/04/17 06:23 Reglan - PO 5 mg TIDAC EYAL Administration Montelukast Sodium 10 mg 08/29/17 22:00 09/03/17 21:44 Singulair - PO 10 mg HS EYAL Administration Morphine Sulfate 15 mg 08/29/17 10:00 09/03/17 21:47 Msir - PO 15 mg BID EYAL Administration Nystatin 1 applic 08/29/17 10:00 09/03/17 21:42 Mycostatin Ointment - TP 1 applic BID EYAL Administration Nystatin 500,000 units 08/29/17 06:00 09/04/17 06:23 Nystatin Oral Suspension - PO 500,000 units Q6HPO EYAL Administration Pantoprazole Sodium 40 mg 08/29/17 10:00 09/03/17 11:00 Protonix - PO 40 mg DAILY EYAL Administration Polyethylene Glycol 17 gm 08/29/17 10:00 09/03/17 11:00 Miralax (For Daily Use) - PO 17 gm DAILY EYAL Administration Pregabalin 75 mg 08/29/17 10:00 09/03/17 21:44 Lyrica - PO 75 mg BID EYAL Administration Fluticasone/Salmeterol 1 puff 08/29/17 10:00 09/03/17 21:41 Advair 100mcg/50mcg - IH 1 puff BID EYAL Administration Senna 1 tab 08/29/17 22:00 09/03/17 21:43 Senna - PO 1 tab HS EYAL Administration Senna/Docusate Sodium 1 tablet 08/29/17 10:00 09/03/17 21:44 Pericolace - PO 1 tablet BID EYAL Administration Sodium Chloride 2 spray 08/30/17 10:18 [place] Nasal [place] - NS BID PRN NASAL CONGESTION Last Vital Signs Temp Pulse Resp BP Pulse Ox 98.4 F 88 20 127/80 94 L 09/04/17 05:33 09/04/17 08:43 09/04/17 05:33 09/04/17 05:33 09/04/17 08:43 General NAD CV S1 S2 RRR no murmur/rub/gallop Lungs coarse breath sounds diffusely Abdomen soft NT/ND obese Extremities no pedal edema CBCD WBC 13.7 K/mm3 (4.0-10.0) H 09/04/17 06:00 RBC 3.78 M/mm3 (3.60-5.2) 09/04/17 06:00 Hgb 10.6 GM/dL (10.7-15.3) L 09/04/17 06:00 Hct 32.6 % (32.4-45.2) 09/04/17 06:00 MCV 86.2 fl (80-96) 09/04/17 06:00 MCHC 32.6 g/dl (32.0-36.0) 09/04/17 06:00 RDW 16.0 % (11.6-15.6) H 09/04/17 06:00 Plt Count 301 K/MM3 (134-434) 09/04/17 06:00 MPV 8.1 fl (7.5-11.1) 09/04/17 06:00 CMP Sodium 140 mmol/L (136-145) 09/04/17 06:00 Potassium 4.4 mmol/L (3.5-5.1) 09/04/17 06:00 Chloride 99 mmol/L (98-107) 09/04/17 06:00 Carbon Dioxide 30 mmol/L (21-32) 09/04/17 06:00 Anion Gap 11 (8-16) 09/04/17 06:00 BUN 23 mg/dL (7-18) H 09/04/17 06:00 Creatinine 0.8 mg/dL (0.55-1.02) 09/04/17 06:00 Creat Clearance w eGFR > 60 (>60) 08/29/17 06:00 Calcium 9.1 mg/dL (8.5-10.1) 09/04/17 06:00 Total Bilirubin 0.3 mg/dL (0.2-1.0) D 08/29/17 06:00 AST 13 U/L (15-37) L 08/29/17 06:00 ALT 17 U/L (12-78) 08/29/17 06:00 Alkaline Phosphatase 97 U/L (45-117) 08/29/17 06:00 Total Protein 6.8 g/dl (6.4-8.2) 08/29/17 06:00 Albumin 2.7 g/dl (3.4-5.0) L 08/29/17 06:00 A/P 62 year old woman with a history of sarcoidosis, COPD, HTN, hyperlipidemia, chronic hypoxic and hypercapnic respiratory failure, type 2 DM, DVT, v tach, AICD who presented to the ED with SOB and cough with green sputum several days after being discharged from a custodial. 1. Bilateral healthcare-associated pneumonia- clinically improved. afebrile. leukocytosis likely due to steroids use. on aztreonam and vanco x6 days will switch to doxy 100mg BID x7 days. will need repeat imaging in 4-6 weeks 2. Pulmonary and cardiac sarcoidosis 3. Acute exacerbation of COPD- clinically improved. spoke with pulmonary. will give medrol 40mg IV now. and then can switch over to pred 40mg po tomorrow will continue this until re-evaluated by Dr De La Cruz in the office. will discharge on advair 500mcg, duonebs prn, singulair. cont home O2 and pulmonary to renew script for oxygen at home. 4. Chronic hypoxic and hypercapnic respiratory failure- saturating 94% on 3L [place]. At home uses 4L. Continue oxygen to maintain saturation >90% 5. HTN- stable. re-start lisinopril. cont cardizem. would continue to hold lasix until re-evaluated by PMD. 6. Hyperlipidemia- Continue Lipitor 7. History of DVT- Continue Eliquis 8. Type 2 DM-above goal. would not adjust at this time as tapering steroids and wont be able to monitor. counseled on monitoring sugars closely while on reduced dose of steroids. Continue Levemir, Novolog sliding scale 9. History of v tach, AICD 10. Obesity with BMI 33.0 11. d/c home on home O2 12. L IJ removed without difficulty. tolerated procedure well. minimal blood loss. Visit type - Emergency Visit Emergency Visit: Yes ED Registration Date: 08/29/17 Care time: The patient presented to the Emergency Department on the above date and was hospitalized for further evaluation of their emergent condition. - New Patient This patient is new to me today: Yes Date on this admission: 09/04/17 - Critical Care Critical Care patient: No
[2017-09-04] MEDS ORDERED: DOXYCYCLINE HYCLATE 100 MG CAPSULE PO SCH (10:00)
[2017-09-04] MEDS ORDERED: PT OWN MED DRAWER 7, Y5N ONE (10:02)
[2017-09-04] MEDS: FERROUS SO4 325 MG TABLET (FP) PO SCH (10:04)
[2017-09-04] MEDS: PREGABALIN 75 MG CAPSULE PO SCH (10:04)
[2017-09-04] MEDS: PANTOPRAZOLE 40 MG TABLET (FP) PO SCH (10:04)
[2017-09-04] MEDS: SENNOSIDES/DOCUSATE COMBO (SENNA PLUS) TABLET (UD) PO SCH (10:04)
[2017-09-04] MEDS: APIXABAN 5 MG TABLET PO SCH (10:05)
[2017-09-04] MEDS: morphine SULFATE IMMEDIATE RELEASE 30 MG TAB PO SCH (10:06)
[2017-09-04] MEDS: CALCIUM CARBONATE 650 MG TABLET PO SCH (10:06)
[2017-09-04] MEDS: FLUTICASONE/SALMETEROL 100 MCG/50 MCG DISKUS IH SCH (10:06)
[2017-09-04] MEDS: POLYETHYLENE GLYCOL 3350 119 GM BTL PO SCH (10:06)
[2017-09-04] MEDS: NYSTATIN 100000 UNIT/GM TOPICAL OINTMENT 15 GM TUBE TP SCH (10:07)
--- NOTE | 2017-09-04 10:21 | PN ---
Progress Note (short form) - Note Progress Note: PULMONARY Breathing continues to improve. Less cough and wheezing. Last Vital Signs Temp Pulse Resp BP Pulse Ox 98.4 F 88 20 127/80 94 L 09/04/17 05:33 09/04/17 08:43 09/04/17 05:33 09/04/17 05:33 09/04/17 08:43 Gen: less tachypneic Heart: RRR Lung: bilateral rales, rhonchi Abd: soft, nontender Ext: no edema CBC, BMP 09/04/17 06:00 09/04/17 06:00 Active Medications Acetylcysteine (Mucomyst 20 Oral / Inh Use Only*) 600 mg NEB BID PRN PRN Reason: Dyspnea Albuterol Sulfate (Ventolin 0.083% Nebulizer Soln -) 1 amp NEB Q4H PRN PRN Reason: SHORT OF BREATH/WHEEZING Last Admin: 09/03/17 02:14 Dose: 1 amp Albuterol/Ipratropium (Duoneb -) 1 amp NEB RTID [facility] Last Admin: 09/04/17 08:45 Dose: 1 amp Apixaban (Eliquis -) 5 mg PO BID [facility] Last Admin: 09/04/17 10:05 Dose: 5 mg Atorvastatin Calcium (Lipitor -) 10 mg PO HS [facility] Last Admin: 09/03/17 21:43 Dose: 10 mg Calcium Carbonate (Calcium Carbonate -) 650 mg PO DAILY [facility] Last Admin: 09/04/17 10:06 Dose: 650 mg Diltiazem HCl (Cardizem -) 30 mg PO Q6HPO [facility] Last Admin: 09/04/17 06:24 Dose: 30 mg Doxycycline Hyclate (Vibramycin -) 100 mg PO BID@1000,1800 [facility] Last Admin: 09/04/17 10:04 Dose: 100 mg Ferrous Sulfate (Feosol -) 325 mg PO DAILY [facility] Last Admin: 09/04/17 10:04 Dose: 325 mg IV Flush (Triple Lumen Flush) 4 ml IVPUSH PRN PRN PRN Reason: Protocol Insulin Aspart (Novolog Vial Sliding Scale -) 1 vial SQ TIDAC [facility]; Protocol Last Admin: 09/04/17 06:24 Dose: 12 unit Insulin Detemir (Levemir Vial) 50 units SQ [facility] Last Admin: 09/03/17 21:44 Dose: 50 units Insulin Detemir (Levemir Vial) 20 units SQ DAILY@0700 [facility] Last Admin: 09/04/17 06:23 Dose: 20 unit Methylprednisolone Sodium Succinate (Solu-Medrol -) 40 mg IVPUSH Q12H [facility] Last Admin: 09/04/17 10:04 Dose: 40 mg Metoclopramide HCl (Reglan -) 5 mg PO TIDAC [facility] Last Admin: 09/04/17 06:23 Dose: 5 mg Montelukast Sodium (Singulair -) 10 mg PO HS [facility] Last Admin: 09/03/17 21:44 Dose: 10 mg Morphine Sulfate (Msir -) 15 mg PO BID [facility] Last Admin: 09/04/17 10:06 Dose: 15 mg Nystatin (Mycostatin Ointment -) 1 applic TP BID [facility] Last Admin: 09/04/17 10:07 Dose: Not Given Nystatin (Nystatin Oral Suspension -) 500,000 units PO Q6HPO [facility] Last Admin: 09/04/17 06:23 Dose: 500,000 units Pantoprazole Sodium (Protonix -) 40 mg PO DAILY [facility] Last Admin: 09/04/17 10:04 Dose: 40 mg Polyethylene Glycol (Miralax (For Daily Use) -) 17 gm PO DAILY [facility] Last Admin: 09/04/17 10:06 Dose: 17 gm Pregabalin (Lyrica -) 75 mg PO BID [facility] Last Admin: 09/04/17 10:04 Dose: 75 mg Fluticasone/Salmeterol (Advair 100mcg/50mcg -) 1 puff IH BID [facility] Last Admin: 09/04/17 10:06 Dose: 1 puff Senna (Senna -) 1 tab PO [facility] Last Admin: 09/03/17 21:43 Dose: 1 tab Senna/Docusate Sodium (Pericolace -) 1 tablet PO BID [facility] Last Admin: 09/04/17 10:04 Dose: 1 tablet Sodium Chloride ([place] Nasal [place] -) 2 spray NS BID PRN PRN Reason: NASAL CONGESTION A/P Pneumonia Chronic Hypoxic and Hypercapneic Respiratory Failure Pulmonary and Cardiac Sarcoidosis COPD h/o DVT h/o VT s/p ICD - continue antibiotics - can change steroids to PO prednisone 40mg daily, she will taper by 10mg q1week to 20mg daily and she will follow up with me in office - inhaled bronchodilators - O2 to keep SpO2 >90% - continue anticoagulation
[2017-09-04 13:57] VITALS: BP 124/74; PULSE 90; TEMP 97.9
--- NOTE | 2017-09-08 00:02 | DS ---
Physical Exam: SUBJECTIVE: Patient seen and examined OBJECTIVE: PHYSICAL EXAM GENERAL: The patient is awake, alert, and fully oriented, in no acute distress. HEAD: Normal with no signs of trauma. EYES: PERRL, extraocular movements intact, sclera anicteric, conjunctiva clear. ENT: Ears normal, nares patent, oropharynx clear without exudates, moist mucous membranes. NECK: Trachea midline, full range of motion, supple. LUNGS: Breath sounds equal, clear to auscultation bilaterally, no wheezes, no crackles, no accessory muscle use. HEART: Regular rate and rhythm, S1, S2 without murmur, rub or gallop. ABDOMEN: Soft, nontender, nondistended, normoactive bowel sounds, no guarding, no rebound, no hepatosplenomegaly, no masses. EXTREMITIES: 2+ pulses, warm, well-perfused, no edema. NEUROLOGICAL: Cranial nerves II through XII grossly intact. Normal speech, gait not observed. PSYCH: Normal mood, normal affect. SKIN: Warm, dry, normal turgor, no rashes or lesions noted. LABS HOSPITAL COURSE: Date of Admission:08/29/17 Date of Discharge: 09/08/17 Discharge Summary Reason For Visit: PNEUMONIA, COPD, SARCOIDOSIS Current Active Problems Chronic diastolic CHF (congestive heart failure) (Acute) DVT (deep venous thrombosis) (Acute) Diabetes mellitus (Acute) Epistaxis (Acute) ICD (implantable cardioverter-defibrillator) in place (Acute) Interstitial lung disease (Acute) Multifocal atrial tachycardia (Acute) Rapid atrial fibrillation (Acute) Sarcoidosis (Acute) Condition: Fair - Instructions Diet, Activity, Other Instructions: You were admitted to the hospital due to pneumonia and a flare of your COPD. You have slowly improved You are being discharged on doxycycline 100mg twice a day, You received your 1st dose in the hospital on day of discharge. Take this medication for 1 week. Take all medication until completed. Even if your symptoms improve. You are being discharged on prednisone 40mg daily. Continue to take this daily until you follow up with Dr De La Cruz who will advise how you should further taper the steroids. Continue to use oxygen daily. Your goal is to have your oxygen level above 88% Some of your medications have changed. refer to medication list for these changes Stop Brovana inhaler. You will now be taking Advair twice a day. Use this if you have symptoms or not. THIS IS NOT A RESCUE INHALER Your insulin dosing may have changed. Monitor your sugars closely in the morning and before each meal. Please document what readings you get and bring them with you to your doctors appointment. Your insulin may need to be adjusted as your steroids are tapered Follow up with your primary care doctor this week Follow up with Dr De La Cruz (radial drill operator) at your next appointment. You may require repeat imaging of your lungs in a few weeks. If your symptoms worsen, you develop fevers (temp >101) return to the ER. Referrals: Ace Sorensen [Primary Care Provider] - Lyle De La Cruz MD, MD [Staff Physician] - Disposition: HOME - Home Medications Comprehensive Discharge Medication List: Ambulatory Orders Montelukast Na [Singulair -] 10 mg PO HS 05/02/17 Pregabalin [Lyrica -] 75 mg PO BID 05/02/17 Sennosides [Senna -] 1 tab PO HS 05/02/17 Lisinopril [Prinivil] 10 mg PO DAILY tablet 05/10/17 Morphine *Sr* [Ms Contin -] 15 mg PO BID 7 Days #14 tablet.sa MDD 30 05/10/17 Metoclopramide HCl [Reglan] 5 mg PO TID 08/29/17 Nitroglycerin Sublingual [Nitrostat -] 0.4 mg .ROUTE ASDIR PRN 08/29/17 Nystatin Oral Suspension - [Nystatin Oral Susp 377891 Units/5 ML -] 100,000 units PO Q6H 08/29/17 Omeprazole 40 mg PO HS 08/29/17 Tiotropium [place] [Spiriva Respimat] 2.5 mcg IH DAILY 08/29/17 Insulin (Levemir) [Levemir Vial] 50 units SQ HS ml 09/04/17 Insulin Sliding Scale [Novolog Vial Sliding Scale -] 0 units SQ ACHS 09/06/17 Prednisone [Deltasone] 30 mg PO DAILY 09/06/17 Sodium Chloride Nasal [place] [[place] Nasal [place] -] 2 spray NS BID 09/06/17
== END 2017-09-04 16:18 | disposition home or self-care (01) | DRG 140 ==
LOC: JER 18:59 → JERBED 08-29 01:33 → MERGE 08-29 01:33 → JERBED 08-29 01:46 → UNDOADMIN 08-29 01:46 → J7W 08-29 03:18
PROVIDERS: ADMIT Internal Medicine; ATTEND Internal Medicine
PROC: 05H433Z Insertion of Infusion Device into Left Innominate Vein, Percutaneous Approach (ICD-10-PCS; principal; 2017-08-29)
PROC: B54NZZA Ultrasonography of Left Upper Extremity Veins, Guidance (ICD-10-PCS; 2017-08-29)
DX: J44.1 Chronic obstructive pulmonary disease with (acute) exacerbation (principal); J96.12 Chronic respiratory failure with hypercapnia; J44.0 Chronic obstructive pulmonary disease with (acute) lower respiratory infection; J18.9 Pneumonia, unspecified organism; J96.11 Chronic respiratory failure with hypoxia; I48.91 Unspecified atrial fibrillation; E11.65 Type 2 diabetes mellitus with hyperglycemia; J84.10 Pulmonary fibrosis, unspecified; I11.0 Hypertensive heart disease with heart failure; I50.32 Chronic diastolic (congestive) heart failure; D86.0 Sarcoidosis of lung; I27.20 Pulmonary hypertension, unspecified; Z99.81 Dependence on supplemental oxygen; E78.5 Hyperlipidemia, unspecified; Z87.891 Personal history of nicotine dependence; Z79.4 Long term (current) use of insulin; K21.9 Gastro-esophageal reflux disease without esophagitis; D50.9 Iron deficiency anemia, unspecified; Z95.0 Presence of cardiac pacemaker; F32.9 Major depressive disorder, single episode, unspecified; G89.4 Chronic pain syndrome; Z99.3 Dependence on wheelchair; Z79.01 Long term (current) use of anticoagulants; Z86.718 Personal history of other venous thrombosis and embolism; G47.33 Obstructive sleep apnea (adult) (pediatric); Y95 Nosocomial condition; E66.9 Obesity, unspecified; Z68.33 Body mass index [BMI] 33.0-33.9, adult
CPT/HCPCS: 36415; 36600; 71045-TC-FY; 71250-TC; 80048; 80053; 82009; 82150; 82550; 82728; 82803; 82962; 83540; 83550; 83605; 83690; 83735; 83880; 84100; 84484; 85025; 85027; 85610; 86850; 86900; 86901; 87040; 87804; 87899; 93005; 93010; 93970-TC; 94640; 94660; 97116-GP; 97161-GP; 99283-25; G0480; J7030; J7620

== ENCOUNTER 2017-09-06 10:03 | Inpatient (IN) | payer OTHER ==
--- NOTE | 2017-09-06 10:19 | PDOC ---
History of Present Illness - General Chief Complaint: Nasal Bleeding Stated Complaint: NOSEBLEED Time Seen by Provider: 09/06/17 10:05 - History of Present Illness Initial Comments: 09/06/17 10:18 62 yo F with h/o IDDM, HLD, HTN, COPD/Asthma on 4L O2, Afib ( on Eliquis), sarcoidosis who p/w with epistaxis. Patient reports stable, unremitting, nasal bleed beginning yesterday evening at 900 PM. Has attempted manual pressure with no relief. Patient reports bleeding from both nares, and blood down back of throat. + nausea without vomiting. Has h/o recurrent nasal bleeds, but reports it has never lasted as long as current nose bleed. EMS and family member at bedside reports that patient with night-time CPAP use for OSVALDO, and nightly humidifier use ( machine malfunctioned).Denies facial trauma. Denies F/C, CP, SOB, abdominal pain, diarrhea, constipation, urinary complaints, weakness, lightheadedness, sensory changes. PMHx: as noted above ROS: as noted above Past History - Past Medical History Allergies/Adverse Reactions: Allergies Allergy/AdvReac Type Severity Reaction Status Date / Time medroxyprogesterone acetate Allergy Severe stepehns Verified 09/06/17 10:10 [From Depo-Provera] josé syndrome amoxicillin [From Augmentin] Allergy Verified 09/06/17 10:10 amoxicillin trihydrate Allergy Verified 09/06/17 10:10 [From Augmentin] aspirin Allergy Verified 09/06/17 10:10 azithromycin [From Zithromax] Allergy [place]wey Verified 09/06/17 10:10 José syndrome bacitracin Allergy Verified 09/06/17 10:10 ciprofloxacin [From Cipro] Allergy Verified 09/06/17 10:10 ciprofloxacin HCl Allergy Verified 09/06/17 10:10 [From Cipro] clavulanic acid Allergy Verified 09/06/17 10:10 [From Augmentin] codeine [Codeine] Allergy Verified 09/06/17 10:10 Iodinated Contrast- Oral and Allergy Verified 09/06/17 10:10 IV Dye [IV Dye, Iodine Containing Contrast ] ketorolac [From Toradol] Allergy Verified 09/06/17 10:10 ketorolac tromethamine Allergy Verified 09/06/17 10:10 [From Toradol] levofloxacin [From Levaquin] Allergy Verified 09/06/17 10:10 metronidazole [From Flagyl] Allergy Verified 09/06/17 10:10 nalbuphine [From Nubain] Allergy Verified 09/06/17 10:10 nalbuphine HCl [From Nubain] Allergy CYANOSIS Verified 09/06/17 10:10 potassium clavulanate Allergy Verified 09/06/17 10:10 [From Augmentin] Shellfish Allergy Verified 09/06/17 10:10 sulfamethoxazole Allergy Verified 09/06/17 10:10 [From Bactrim] trimethoprim [From Bactrim] Allergy Verified 09/06/17 10:10 ivp dye Allergy Severe Swelling Uncoded 09/06/17 10:10 Home Medications: Ambulatory Orders Montelukast Na [Singulair -] 10 mg PO HS 05/02/17 Pregabalin [Lyrica -] 75 mg PO BID 05/02/17 Sennosides [Senna -] 1 tab PO HS 05/02/17 Lisinopril [Prinivil] 10 mg PO DAILY tablet 05/10/17 Morphine *Sr* [Ms Contin -] 15 mg PO BID 7 Days #14 tablet.sa MDD 30 05/10/17 Metoclopramide HCl [Reglan] 5 mg PO TID 08/29/17 Nitroglycerin Sublingual [Nitrostat -] 0.4 mg .ROUTE ASDIR PRN 08/29/17 Nystatin Oral Suspension - [Nystatin Oral Susp 130534 Units/5 ML -] 100,000 units PO Q6H 08/29/17 Omeprazole 40 mg PO HS 08/29/17 Tiotropium [place] [Spiriva Respimat] 2.5 mcg IH DAILY 08/29/17 Insulin (Levemir) [Levemir Vial] 50 units SQ HS ml 09/04/17 Insulin Sliding Scale [Novolog Vial Sliding Scale -] 0 units SQ ACHS 09/06/17 Prednisone [Deltasone] 30 mg PO DAILY 09/06/17 Sodium Chloride Nasal [place] [[place] Nasal [place] -] 2 spray NS BID 09/06/17 Anemia: Yes Asthma: Yes Cancer: No Cardiac Disorders: Yes (afib) CVA: No COPD: Yes (scaradosis) CHF: Yes Dementia: No Diabetes: Yes GI Disorders: Yes (acid reflux, gastric paresis, GERD) Disorders: Yes (Urinary retention) HTN: Yes Hypercholesterolemia: Yes Liver Disease: Yes (hep c) Seizures: No Thyroid Disease: No - Surgical History Abdominal Surgery: Yes Appendectomy: No Cardiac Surgery: Yes (ppmd) Cholecystectomy: No Gastric Stapling: No Lung Surgery: No Neurologic Surgery: Yes (BACK SX WITH LLE NERVE DAMAGE) Orthopedic Surgery: Yes (laminectomy x 2 in 2009 in [facility]) - Immunization History Immunization Up to Date: Yes - Suicide/Smoking/Psychosocial Hx Smoking Status: No Smoking History: Unknown if ever smoked Have you smoked in the past 12 months: No Number of Cigarettes Smoked Daily: 0 Cigars Per Day: 0 Information on smoking cessation initiated: No Hx Alcohol Use: No Drug/Substance Use Hx: No Substance Use Type: None Hx Substance Use Treatment: No Review of Systems - Review of Systems Comments:: 09/06/17 10:48 GENERAL/CONSTITUTIONAL: No fever or chills. No weakness. HEAD, EYES, EARS, NOSE AND THROAT: + Nasal bleed. No change in vision. No ear pain or discharge. No sore throat. CARDIOVASCULAR: No chest pain or shortness of breath RESPIRATORY: No cough, wheezing, or hemoptysis. GASTROINTESTINAL: No nausea, vomiting, diarrhea or constipation. GENITOURINARY: No dysuria, frequency, or change in urination. MUSCULOSKELETAL: No joint or muscle swelling or pain. No neck or back pain. SKIN: No rash NEUROLOGIC: No headache, vertigo, loss of consciousness, or change in strength/ sensation. ENDOCRINE: No increased thirst. No abnormal weight change HEMATOLOGIC/LYMPHATIC: No anemia, easy bleeding, or history of blood clots. ALLERGIC/IMMUNOLOGIC: No hives or skin allergy. *Physical Exam - Vital Signs Last Vital Signs Temp Pulse Resp BP Pulse Ox 99.0 F 123 H 18 136/80 100 09/06/17 10:05 09/06/17 10:05 09/06/17 10:05 09/06/17 10:05 09/06/17 10:05 - Physical Exam Comments: 09/06/17 10:48 GENERAL: Awake, alert, and fully oriented, in no acute distress HEAD: No signs of trauma, normocephalic, atraumatic EYES: PERRLA, EOMI, sclera anicteric, conjunctiva clear ENT: + Ant septal perforation. + active blood from BL nares with clotting in L nare.+ blood visualized draining in posterior oropharynx. Auricles normal inspection, hearing grossly normal, nares patent, oropharynx without exudates. Moist mucosa NECK: Normal ROM, supple, no lymphadenopathy, JVD, or masses LUNGS: No distress, speaks full sentences, clear to auscultation bilaterally HEART: Regular rate and rhythm, normal S1 and S2, no murmurs, rubs or gallops, peripheral pulses normal and equal bilaterally. EXTREMITIES : Normal inspection, Normal range of motion, no edema. No clubbing or cyanosis. SKIN: Warm, Dry, normal turgor, no rashes or lesions noted ED Treatment Course - LABORATORY CBC & Chemistry Diagram: 09/06/17 15:00 09/06/17 15:00 Medical Decision Making - Medical Decision Making 09/06/17 10:51 62 yo F with h/o IDDM, HLD, HTN, COPD/Asthma on 4L O2, Afib ( on Eliquis), sarcoidosis who p/w with epistaxis x 12 hours. Blood draining from R nare and post. oropharynx. HR 123. Most likely 2/2 ant. vs. post epistaxis. Patient with probable dried mucus membranes. No evidence of facial trauma on physical exam. ED Course: Oxymetazoline, direct pressure, and non rebreather. 09/06/17 17:12 Pt. R sided nare cauterized by Dr. Ji SERRANO for persitent nasal bleed. WBC: 19.3 09/06/17 17:13 CMP: Unremarkable Pt. received home dose Diazepam 120 mg PO for persistent tachcyardia 120's-150' s. Patient admitted to Dr. Jaffe for rapid A-fib. Dr. Segovia consulted *DC/Admit/Observation/Transfer Diagnosis at time of Disposition: Rapid atrial fibrillation - Discharge Dispostion Decision to Admit order: Yes - Referrals Referrals: Ace Sorensen [Primary Care Provider] - - Patient Instructions - Post Discharge Activity
--- NOTE | 2017-09-06 10:45 | PDOC ---
Attending Attestation - Resident Resident Name: Homero Pereason - ED Attending Attestation I have performed the following: I have examined & evaluated the patient, The case was reviewed & discussed with the resident, I agree w/resident's findings & plan, Exceptions are as noted - HPI HPI: 09/06/17 10:39 62 year old female with a significant past medical history of asthma, atrial fibrillation on eliquis, COPD (on 4L of oxygen), sarcoidosis, diabetes, hypertension, and hyperlipidemia who presents to the emergency department for evaluation of nosebleed since last night. Patient reports the bleeding is coming from both nostrils with clots. She states she has a hole in her septum and thus often bleeds from both nares when she has a nose bleed. She states she has had nosebleeds in the past but they usually stop on their own after a few hours. Patient uses a CPAP mask overnight as well as oxygen during the day due to her COPD. She denies any dizziness, chest pain, shortness of breath. She reports nausea, she states due to swallowing a lot of her own blood. Denies fevers, chills, abdominal pain, diarrhea, lower extremity edema. - Physicial Exam PE: 09/06/17 10:42 GENERAL: Awake, alert, and fully oriented, in no acute distress HEAD: No signs of trauma EYES: PERRLA, EOMI, sclera anicteric, conjunctiva clear ENT: bleeding from R nare, with some blood oozing down the posterior OP. No active bleeding from L nare NECK: Normal ROM, supple, no lymphadenopathy, JVD, or masses LUNGS: Breath sounds equal, clear to auscultation bilaterally. No wheezes, and no crackles HEART: tachy but regular to 105, normal S1 and S2, no murmurs, rubs or gallops ABDOMEN: Soft, nontender, normoactive bowel sounds. No guarding, no rebound. No masses EXTREMITIES: Normal range of motion, no edema. No clubbing or cyanosis. No cords, erythema, or tenderness NEUROLOGICAL: Normal speech, cranial nerves intact, negative pronator drift, 5/ 5 strength in all 4 extremities, normal sensation to light touch in all 4 extremities, normal cerebellar exam, normal gait, normal reflexes and tone SKIN: Warm, Dry, normal turgor, no rashes or lesions noted. - Medical Decision Making 09/06/17 10:47 62yo F with MMP including AF on eliquis presents to the ED with epistaxis. Pt appears to be bleeding from R nare at this time, will suction, and try affrin/ compression. Pt tachycardic, will check CBC for H&H. 09/06/17 12:26 Afrin/compression not successful in controlling the bleed. (ENT) was consulted, and using a nasal speculum and suction to remove multiple clots, a bleed was visualized on the R anterior aspect. Pt also has large perforated septum. Pt's bleed was successfully cauterized. No bleeding in posterior OP. Labs are pending. In the meantime, will observe the patient for rebleed.
[2017-09-06] MEDS: OXYMETAZOLINE 0.05% NASAL SOLUTION 15 ML BOTTLE NS PRN ×2 (10:55→22:20)
[2017-09-06] MEDS ORDERED: SODIUM CHLORIDE 500 ML IV STA (12:14)
--- NOTE | 2017-09-06 12:37 | CONSULT ---
Consult - text type - Consultation Consultation Note: ENT CONSULT NOTE Hx from chart: 62 year old female with a significant past medical history of asthma, atrial fibrillation on eliquis, COPD (on 4L of oxygen), sarcoidosis, diabetes, hypertension, and hyperlipidemia who presents to the emergency department for evaluation of nosebleed since last night. Patient reports the bleeding is coming from both nostrils with clots. She states she has a hole in her septum and thus often bleeds from both nares when she has a nose bleed. She states she has had nosebleeds in the past but they usually stop on their own after a few hours. Patient uses a CPAP mask overnight as well as oxygen during the day due to her COPD. She denies any dizziness, chest pain, shortness of breath. She reports nausea, she states due to swallowing a lot of her own blood. Denies fevers, chills, abdominal pain, diarrhea, lower extremity edema. Additional hx: Pt has had cautery in the past from Dr Demarco. This bleed is worse then her usual. She has a hx of nasal trauma, no surgery. PE: AAOx3. Active fresh blood from both nostrils. Large clots removed from both sides and the nose was suctioned and cleaned out. There is a 3cm perf. The only active oozing is from the right posterior perf edge, just to the right and next to the right middle turbinate. I anesthetized the area with lidocaine/afrin and cauterized with silver nitrate. Gelfoam wedged into the area to give nore support. No other bleeding seen and Oral and OP dry with no lesions at the end. IMP: Nasal septal perforation with multiple medical problems on Eliquis and has recurrent epistaxis. A site found today on the right and cauterized. REC: Nose too open to effectively place vaseline but she will used humidified O2 at home and nasal saline spray. OK for d/c. F/u with dr Demarco this week to check the nose. Pt watched after a half hour and no further bleeding seen.
[2017-09-06] MEDS ORDERED: dilTIAZem HCL 50 MG/10 ML - 10 ML VIAL IVPUSH ONE (13:04)
[2017-09-06] MEDS ORDERED: dilTIAZem HCL 125 MG/25 ML - 25 ML VIAL ONE (13:05)
[2017-09-06] MEDS ORDERED: dilTIAZem HCL 60 MG TABLET (FP) PO ONE (15:12)
[2017-09-06] MEDS ORDERED: dilTIAZem HCL 60 MG TABLET (FP) ONE (15:15)
[2017-09-06 15:17] LABS: MCHC 31.6 g/dl (32.0-36.0)
[2017-09-06 15:21] LABS: HEMATOCRIT 33.7 % (32.4-45.2); HEMOGLOBIN 10.7 GM/dL (10.7-15.3); MCH 27.5 pg (25.7-33.7); MEAN PLT VOLUME 7.9 fl (7.5-11.1); PLATELET COUNT 374 K/MM3 (134-434); RBC 3.88 M/mm3 (3.60-5.2); RDW 16.9 % (11.6-15.6); WHITE BLOOD COUNT 19.3 K/mm3 (4.0-10.0)
[2017-09-06 15:24] LABS: ADD RBC MORPHOLOGY YES
[2017-09-06] MEDS ORDERED: IPRATROPIUM BR 0.02% 0.5 MG/2.5 ML VIAL.NEB. NEB ONE ×2 (15:29→15:30)
[2017-09-06 15:36] LABS: INR 1.12 (0.82-1.09); PROTHROMBIN TIME (PATIENT) 12.7 SEC (9.7-13.0)
[2017-09-06 15:39] LABS: ACTIVATED PTT 26.2 SECONDS (26.9-34.4)
[2017-09-06 15:45] LABS: ALBUMIN 2.9 g/dl (3.4-5.0); ANION GAP 8 (8-16); BLOOD UREA NITROGEN 33 mg/dL (7-18); CALCIUM 8.9 mg/dL (8.5-10.1); CHLORIDE 104 mmol/L (98-107); CO2 33 mmol/L (21-32); CREATININE 0.6 mg/dL (0.55-1.02); GLUCOSE,RANDOM 111 mg/dL (74-106); SGPT/ALT 24 U/L (12-78); SODIUM 145 mmol/L (136-145)
[2017-09-06 15:47] LABS: ALK PHOS 83 U/L (45-117); BILIRUBIN,TOTAL 0.3 mg/dL (0.2-1.0); TOT PROT 6.7 g/dl (6.4-8.2)
[2017-09-06 15:48] LABS: POTASSIUM 3.8 mmol/L (3.5-5.1); SGOT/AST 20 U/L (15-37)
[2017-09-06 16:04] LABS: SMUDGE CELLS FEW
[2017-09-06 16:05] LABS: ANISOCYTOSIS 1+; PLATELET ESTIMATE ADEQUATE
[2017-09-06] MEDS ORDERED: SODIUM CHLORIDE NASAL SPRAY 44 ML BOTTLE NS ONE (17:24)
[2017-09-06] MEDS ORDERED: LISINOPRIL 10 MG TABLET (FP) PO ONE (19:23)
[2017-09-06] MEDS ORDERED: LISINOPRIL 5 MG TABLET (FP) ONE (19:25)
--- NOTE | 2017-09-06 20:43 | HP ---
Admitting History and Physical - Primary Care Physician PCP: Barber Jaffe - Admission History of Present Illness: 62 yo F with h/o IDDM, HLD, HTN, COPD/Asthma on 4L O2, Afib ( on Eliquis), sarcoidosis who p/w with epistaxis. Patient reports stable, unremitting, nasal bleed beginning yesterday evening at 900 PM. Has attempted manual pressure with no relief. Patient reports bleeding from both nares, and blood down back of throat. + nausea without vomiting. Has h/o recurrent nasal bleeds, but reports it has never lasted as long as current nose bleed. EMS and family member at bedside reports that patient with night-time CPAP use for OSVALDO, and nightly humidifier use ( machine malfunctioned).Denies facial trauma. Pt getting admitted for rapid afib - Past Medical History CONVEYANCER: Yes: Dementia Cardiovascular: Yes: Pulmonary Hypertension, Deep Vein Thrombosis, CHF, HTN, Other Pulmonary: Yes: Asthma, COPD, Previously Intubated, Sleep Apnea, Pulmonary Fibrosis, O2 Dependent, Other Gastrointestinal: Yes: GERD, Other Hepatobiliary: Yes: Hepatitis C Heme/Onc: Yes: Anemia Infectious Disease: Yes: Other Musculoskeletal: Yes: Chronic low back pain Rheumatology: Yes: Sarcoidosis (cardiac and pulmonary) Endocrine: Yes: Diabetes Mellitus - Past Surgical History Past Surgical History: Yes: Laminectomy, AICD, Permanent Pacemaker - Smoking History Smoking history: Unknown if ever smoked Have you smoked in the past 12 months: No Aproximately how many cigarettes per day: 0 - Alcohol/Substance Use Hx Alcohol Use: No - Social History ADL: Support Services History of Recent Travel: No Home Medications - Allergies Allergies/Adverse Reactions: Allergies Allergy/AdvReac Type Severity Reaction Status Date / Time medroxyprogesterone acetate Allergy Severe stepehns Verified 09/06/17 10:10 [From Depo-Provera] josé syndrome amoxicillin [From Augmentin] Allergy Verified 09/06/17 10:10 amoxicillin trihydrate Allergy Verified 09/06/17 10:10 [From Augmentin] aspirin Allergy Verified 09/06/17 10:10 azithromycin [From Zithromax] Allergy Dewey Verified 09/06/17 10:10 José syndrome bacitracin Allergy Verified 09/06/17 10:10 ciprofloxacin [From Cipro] Allergy Verified 09/06/17 10:10 ciprofloxacin HCl Allergy Verified 09/06/17 10:10 [From Cipro] clavulanic acid Allergy Verified 09/06/17 10:10 [From Augmentin] codeine [Codeine] Allergy Verified 09/06/17 10:10 Iodinated Contrast- Oral and Allergy Verified 09/06/17 10:10 IV Dye [IV Dye, Iodine Containing Contrast ] ketorolac [From Toradol] Allergy Verified 09/06/17 10:10 ketorolac tromethamine Allergy Verified 09/06/17 10:10 [From Toradol] levofloxacin [From Levaquin] Allergy Verified 09/06/17 10:10 metronidazole [From Flagyl] Allergy Verified 09/06/17 10:10 nalbuphine [From Nubain] Allergy Verified 09/06/17 10:10 nalbuphine HCl [From Nubain] Allergy CYANOSIS Verified 09/06/17 10:10 potassium clavulanate Allergy Verified 09/06/17 10:10 [From Augmentin] Shellfish Allergy Verified 09/06/17 10:10 sulfamethoxazole Allergy Verified 09/06/17 10:10 [From Bactrim] trimethoprim [From Bactrim] Allergy Verified 09/06/17 10:10 ivp dye Allergy Severe Swelling Uncoded 09/06/17 10:10 - Home Medications Home Medications: Ambulatory Orders Montelukast Na [Singulair -] 10 mg PO HS 05/02/17 Pregabalin [Lyrica -] 75 mg PO BID 05/02/17 Sennosides [Senna -] 1 tab PO HS 05/02/17 Lisinopril [Prinivil] 10 mg PO DAILY tablet 05/10/17 Morphine *Sr* [Ms Contin -] 15 mg PO BID 7 Days #14 tablet.sa MDD 30 05/10/17 Metoclopramide HCl [Reglan] 5 mg PO TID 08/29/17 Nitroglycerin Sublingual [Nitrostat -] 0.4 mg .ROUTE ASDIR PRN 08/29/17 Nystatin Oral Suspension - [Nystatin Oral Susp 393510 Units/5 ML -] 100,000 units PO Q6H 08/29/17 Omeprazole 40 mg PO HS 08/29/17 Tiotropium [place] [Spiriva Respimat] 2.5 mcg IH DAILY 08/29/17 Insulin (Levemir) [Levemir Vial] 50 units SQ HS ml 09/04/17 Insulin Sliding Scale [Novolog Vial Sliding Scale -] 0 units SQ ACHS 09/06/17 Prednisone [Deltasone] 30 mg PO DAILY 09/06/17 Sodium Chloride Nasal [place] [[place] Nasal [place] -] 2 spray NS BID 09/06/17 Family Disease History - Family Disease History Family Disease History: Other: Mother (3 CVAs, the first in her 60s) Physical Examination Vital Signs: Vital Signs Temperature 99.0 F 09/06/17 10:05 Pulse Rate 115 H 09/06/17 20:27 Respiratory Rate 26 H 09/06/17 20:27 Blood Pressure 128/85 09/06/17 19:30 O2 Sat by Pulse Oximetry (%) 97 09/06/17 20:27 HENT: Yes: Atraumatic Neck: Yes: Supple Cardiovascular: Yes: Regular Rate and Rhythm Respiratory: Yes: CTA Bilaterally Gastrointestinal: Yes: Normal Bowel Sounds Extremities: Yes: WNL Peripheral Pulses WNL: Yes Neurological: Yes: Alert, Oriented Labs: CBC, BMP 09/06/17 15:00 09/06/17 15:00 Problem List - Problems (1) Rapid atrial fibrillation Assessment/Plan: on meds hold eliquis will get cardiology coverage Code(s): I48.91 - UNSPECIFIED ATRIAL FIBRILLATION (2) Chronic diastolic CHF (congestive heart failure) Code(s): I50.32 - CHRONIC DIASTOLIC (CONGESTIVE) HEART FAILURE (3) DVT (deep venous thrombosis) Assessment/Plan: was on eliquis will get hematology involve to see if there is a need to continue Code(s): I82.409 - ACUTE EMBOLISM AND THOMBOS UNSP DEEP VN UNSP LOWER EXTREMITY Qualifiers: DVT location: lower extremity Laterality: left (4) Diabetes mellitus Assessment/Plan: on insulin bgms Code(s): E11.9 - TYPE 2 DIABETES MELLITUS WITHOUT COMPLICATIONS Qualifiers: Diabetes mellitus type: type 2 Diabetes mellitus complication status: without complication (5) Epistaxis Assessment/Plan: resolved hold eliquis Code(s): R04.0 - EPISTAXIS Assessment/Plan Laboratory Tests 09/06/17 09/06/17 09/06/17 15:00 15:00 15:00 WBC 19.3 H D RBC 3.88 Hgb 10.7 Hct 33.7 MCV 87.0 MCH 27.5 MCHC 31.6 L RDW 16.9 H Plt Count 374 D MPV 7.9 Neutrophils % No Result Required. Neutrophils % (Manual) 81.0 Band Neutrophils % 3.0 Lymphocytes % No Result Required. Lymphocytes % (Manual) 11.0 D Monocytes % (Manual) 5 Nucleated RBC % 1 H Smudge Cells Few Hypochromia 1+ Platelet Estimate Adequate Platelet Comment No clumping noted Polychromasia 1+ Anisocytosis 1+ PT with INR 12.70 INR 1.12 PTT (Actin FS) 26.2 L Sodium 145 Potassium 3.8 Chloride 104 Carbon Dioxide 33 H Anion Gap 8 BUN 33 H Creatinine 0.6 Creat Clearance w eGFR > 60 Random Glucose 111 H Calcium 8.9 Total Bilirubin 0.3 AST 20 ALT 24 Alkaline Phosphatase 83 Total Protein 6.7 Albumin 2.9 L Active Medications Generic Name Dose Route Start Last Admin Trade Name Freq PRN Reason Stop Dose Admin Oxymetazoline HCl 2 spray 09/06/17 10:16 09/06/17 10:55 Afrin - NS 2 sprays BID PRN Administration NASAL CONGESTION Active Medications Generic Name Dose Route Start Last Admin Trade Name Christiana PRN Reason Stop Dose Admin Insulin Aspart 1 vial 09/06/17 22:00 09/07/17 16:51 Novolog Vial Sliding Scale - SQ 12 units ACHS EYAL Administration Protocol Insulin Detemir 50 units 09/06/17 22:00 09/06/17 22:21 Levemir Vial SQ Not Given HS EYAL Lisinopril 10 mg 09/07/17 10:00 09/07/17 09:11 Prinivil PO 10 mg DAILY EYAL Administration Metoclopramide HCl 5 mg 09/06/17 22:00 09/07/17 14:20 Reglan - PO 5 mg TID EYAL Administration Montelukast Sodium 10 mg 09/06/17 22:00 09/06/17 22:22 Singulair - PO 10 mg HS EYAL Administration Morphine Sulfate 15 mg 09/06/17 23:00 09/07/17 09:11 Ms Contin - PO 15 mg BID EYAL Administration Oxymetazoline HCl 2 spray 09/06/17 10:16 09/06/17 22:20 Afrin - NS 2 sprays BID PRN Administration NASAL CONGESTION Pantoprazole Sodium 40 mg 09/07/17 10:00 09/07/17 09:12 Protonix - PO 40 mg DAILY EYAL Administration Prednisone 30 mg 09/07/17 10:00 09/07/17 09:10 Deltasone - PO 30 mg DAILY EYAL Administration Pregabalin 75 mg 09/06/17 22:00 09/07/17 09:11 Lyrica - PO 75 mg BID EYAL Administration Senna 1 tab 09/06/17 22:00 09/06/17 22:22 Senna - PO 1 tab HS EYAL Administration Tiotropium [place] 1 puff 09/07/17 10:00 09/07/17 09:36 Spiriva - IH 1 puff DAILY EYAL Administration
[2017-09-06] MEDS: METOCLOPRAMIDE HCL 10 MG TABLET (FP) PO SCH (22:21)
[2017-09-06] MEDS: PREGABALIN 75 MG CAPSULE PO SCH (22:21)
[2017-09-06] MEDS: INSULIN (LEVEMIR) 100 UNITS/ML UNITS SQ SCH (22:21)
[2017-09-06] MEDS: MONTELUKAST NA 10 MG TABLET PO SCH (22:22)
[2017-09-06] MEDS: SENNOSIDES 8.6MG TABLET (FP) PO SCH (22:22)
[2017-09-06] MEDS: INSULIN SLIDING SCALE (NOVOLOG) 1 VIAL SQ SCH (22:22)
[2017-09-06] MEDS: morphine SO4 SUSTAINED ACTING 15 MG TABLET.SA PO SCH (23:24)
[2017-09-07] MEDS: INSULIN SLIDING SCALE (NOVOLOG) 1 VIAL SQ SCH ×4 (06:27→22:12)
[2017-09-07] MEDS: METOCLOPRAMIDE HCL 10 MG TABLET (FP) PO SCH ×3 (06:27→22:11)
[2017-09-07 06:57] LABS: BASO % 0.5 % (0-2.0); EOS % 0.2 % (0-4.5); HEMATOCRIT 27.9 % (32.4-45.2); LYMPH % 14.2 % (8-40); MCH 28.2 pg (25.7-33.7); MCHC 32.2 g/dl (32.0-36.0); MEAN CELL VOLUME 87.4 fl (80-96); MEAN PLT VOLUME 7.7 fl (7.5-11.1); MONO % 4.4 % (3.8-10.2); NEUT % 80.7 % (42.8-82.8); PLATELET COUNT 288 K/MM3 (134-434); RBC 3.19 M/mm3 (3.60-5.2); RDW 15.9 % (11.6-15.6); WHITE BLOOD COUNT 19.8 K/mm3 (4.0-10.0)
[2017-09-07 07:23] LABS: CHLORIDE 103 mmol/L (98-107); POTASSIUM 3.5 mmol/L (3.5-5.1); SODIUM 143 mmol/L (136-145)
[2017-09-07 07:36] LABS: ALBUMIN 2.4 g/dl (3.4-5.0); ALK PHOS 66 U/L (45-117); ANION GAP 7 (8-16); BILIRUBIN,TOTAL 0.3 mg/dL (0.2-1.0); BLOOD UREA NITROGEN 34 mg/dL (7-18); CALCIUM 8.3 mg/dL (8.5-10.1); CO2 33 mmol/L (21-32); CREATININE 0.6 mg/dL (0.55-1.02); SGOT/AST 15 U/L (15-37); SGPT/ALT 19 U/L (12-78); TOT PROT 5.7 g/dl (6.4-8.2)
[2017-09-07 08:00] LABS: GLUCOSE,RANDOM 44 mg/dL (74-106)
--- NOTE | 2017-09-07 08:11 | PN ---
Progress Note, Physician Chief Complaint: My office patient, recently discharged: Now readmitted for epistaxs. PMH: Sarcoidosis w/ cardiac involvement (MRI); pulmonary involvement Multifocal atrial tachycardia, ??PAF Chronic lung disease Suspected PNA H/o VT, syncope s/p ICD H/o DVT LEft popliteal vein 12/2016 on ultrasound here HTN DM Patient was recently hospitalized for asthma/acute exacerbation and during that admission BP was low prompting the discontinuation of Cardizem and reduction in dose of Lasix. It was unclear why she had been on Cardizem; reportedly for PAF, but patient has never manifested clear atrial fibrillation. The presenting ECG now is Sinus tach with APCS and on tele overnight she has demonstrated periods of what appears to be multifocal atrial tachycardia (MAT). She has been on Eliquis for prior DVT. Now admitted for persistent epistaxis; seen by ENT and found to have: Nasal septal perforation s/p cauterization. History of Present Illness: She denies chest pain. + Chronic MORSE. + intermittent b/l LE edema. No syncope, no ICD discharges - Current Medication List Current Medications: Active Medications Insulin Aspart (Novolog Vial Sliding Scale -) 1 vial SQ [facility]; Protocol Last Admin: 09/07/17 06:27 Dose: Not Given Insulin Detemir (Levemir Vial) 50 units SQ [facility] Last Admin: 09/06/17 22:21 Dose: Not Given Lisinopril (Prinivil) 10 mg PO DAILY [facility] Metoclopramide HCl (Reglan -) 5 mg PO TID [facility] Last Admin: 09/07/17 06:27 Dose: 5 mg Montelukast Sodium (Singulair -) 10 mg PO [facility] Last Admin: 09/06/17 22:22 Dose: 10 mg Morphine Sulfate (Ms Contin -) 15 mg PO BID [facility] Last Admin: 09/06/17 23:24 Dose: 15 mg Oxymetazoline HCl (Afrin -) 2 spray NS BID PRN PRN Reason: NASAL CONGESTION Last Admin: 09/06/17 22:20 Dose: 2 sprays Pantoprazole Sodium (Protonix -) 40 mg PO DAILY [facility] Prednisone (Deltasone -) 30 mg PO DAILY [facility] Pregabalin (Lyrica -) 75 mg PO BID [facility] Last Admin: 09/06/17 22:21 Dose: 75 mg Senna (Senna -) 1 tab PO [facility] Last Admin: 09/06/17 22:22 Dose: 1 tab Tiotropium [place] (Spiriva -) 1 puff IH DAILY [facility] - Objective Vital Signs: Vital Signs Temperature 98.6 F 09/07/17 02:00 Pulse Rate 110 H 09/07/17 05:44 Respiratory Rate 22 09/07/17 05:44 Blood Pressure 102/60 09/07/17 05:44 O2 Sat by Pulse Oximetry (%) 98 09/06/17 23:13 Constitutional: Yes: No Distress Cardiovascular: Yes: Regular Rate and Rhythm, Tachycardia Respiratory: Yes: Rhonchi Gastrointestinal: Yes: Soft Edema: No Neurological: Yes: Alert, Oriented ...Motor Strength: WNL Labs: CBC, BMP 09/07/17 06:00 09/07/17 06:00 INR, PTT INR 1.12 (0.82-1.09) 09/06/17 15:00 - ....Imaging EKG: Image Reviewed (NSR, periods of tachycardia: likely MAT (Multifocal atrial tachycardia)) Problem List - Problems (1) Epistaxis Assessment/Plan: -recurrent, s/p cautery by ENT -Hold Eliquis for now -Monitor clinically Code(s): R04.0 - EPISTAXIS (2) DVT (deep venous thrombosis) Assessment/Plan: -Diagnosed 12/2016 Left politeal on US here at [facility]; has been on AC since then -Seems to have been "unprovoked", but patient is extremely sedentary mostly in wheelchair so has ongoing chronic risk -Will obtain Heme consult to advise on AC plan going forward -Of note, I have not seen clear documentation of AFIB: Sinus tach and MAT are evident, so at this point the indication for AC seems to be the DVT. -Will have ICD interrogated to further explore this question of AF -Will need to begin DVT prophylaxis while we wait on resumption of full AC Code(s): I82.409 - ACUTE EMBOLISM AND THOMBOS UNSP DEEP VN UNSP LOWER EXTREMITY Qualifiers: DVT location: lower extremity Laterality: left (3) Multifocal atrial tachycardia Assessment/Plan: -Likely secondary to chronic lung disease; will have ICD interrogated to exclude prior episodes of AF that I may not be aware of or been alerted to Code(s): I47.1 - SUPRAVENTRICULAR TACHYCARDIA (4) Sarcoidosis Assessment/Plan: -With lung and cardiac involvement (on cardiac MRI) with hx of VT and syncope s/ p ICD -Will have ICD interrogation -Pulmonary f/u as needed Code(s): D86.9 - SARCOIDOSIS, UNSPECIFIED (5) ICD (implantable cardioverter-defibrillator) in place Assessment/Plan: -ICD interrogation as above ([place] [facility]) to check for PAF, so far sinus tach and likely MAT/AT evident. Code(s): Z95.810 - PRESENCE OF AUTOMATIC (IMPLANTABLE) CARDIAC DEFIBRILLATOR (6) Chronic diastolic CHF (congestive heart failure) Assessment/Plan: -Recently taken of Lasix last admission for hypotension and intravascular volume depletion -Will follow clinically for signs volume overload, may need to resume at lower dose. Code(s): I50.32 - CHRONIC DIASTOLIC (CONGESTIVE) HEART FAILURE (7) Interstitial lung disease Assessment/Plan: -secondary to Sarcoidosis -Supplimental O2 -Pulmonary f/u as needed Code(s): J84.9 - INTERSTITIAL PULMONARY DISEASE, UNSPECIFIED (8) Diabetes mellitus Assessment/Plan: -As per PMD Code(s): E11.9 - TYPE 2 DIABETES MELLITUS WITHOUT COMPLICATIONS Qualifiers: Diabetes mellitus type: type 2 Diabetes mellitus complication status: without complication Assessment/Plan IMP: Complicated, chronically ill, sedentary patient with long standing Sarcoidosis with pulmonary and cardiac involvement s/p ICD for VT and syncope several years ago; on long standing NOAC therapy for LLE DVT diagnosed in 12/2016, which appears to have been "unprovoked"- although her sedentary status is essentially a chronic risk factor. There is also a question of PAF, although I have no documentation of it and thus far we have seen only sinus tach, atrial tach and periods of probable MAT secondary to her lung disease. She now presents with severe epistaxis requiring ENT electrocautery. REC: As outlined previously: 1. To obtain HEME input on need for long term acute care registered nurse full AC. I suspect it will be indicated for reasons outlined above. 2. To clarify this ? of PAF: an ICD interrogation will be obtained. 3. To monitor volume status, Lasix recently d/c'd due to low BP and intravascular volume depletion. 4. To determine need to resume Cardizem, likely started in [facility] for PAT/ MAT/Sinus tach, possible PAF which was also stopped last admission for low BP. 5. DVT prophylaxis while we clarify above issues Thank you. Will follow
[2017-09-07] MEDS: predniSONE 10 MG TABLET (UD) PO SCH (09:10)
[2017-09-07] MEDS: PREGABALIN 75 MG CAPSULE PO SCH ×2 (09:11→22:11)
[2017-09-07] MEDS: morphine SO4 SUSTAINED ACTING 15 MG TABLET.SA PO SCH ×2 (09:11→22:11)
[2017-09-07] MEDS: LISINOPRIL 10 MG TABLET (FP) PO SCH (09:11)
[2017-09-07] MEDS: PANTOPRAZOLE 40 MG TABLET (FP) PO SCH (09:12)
[2017-09-07] MEDS: TIOTROPIUM BROMIDE 18 MCG CAPSULES IH SCH (09:36)
--- NOTE | 2017-09-07 13:38 | EKG ---
Test Reason : Blood Pressure : / mmHG Vent. Rate : 124 BPM Atrial Rate : 124 BPM P-R Int : 124 ms QRS Dur : 066 ms QT Int : 296 ms P-R-T Axes : 008 -01 052 degrees QTc Int : 425 ms SINUS TACHYCARDIA WITH PREMATURE ATRIAL COMPLEXES OTHERWISE NORMAL ECG WHEN COMPARED WITH ECG OF 02-SEP-2017 17:05, PREMATURE VENTRICULAR COMPLEXES ARE NO LONGER PRESENT PREMATURE ATRIAL COMPLEXES ARE NOW PRESENT Confirmed by MD Atilio, Refugio ([id number]) on 09/07/2017 1:38:16 PM Referred By: Confirmed By:Refugio Trimble MD
--- NOTE | 2017-09-07 13:41 | CON.ID ---
Consult Consult Specialty:: infectious diseases Reason for Consultation:: r/o aspiration pna - History of Present Illness Chief Complaint: nose bleed History of Present Illness: 62 year old female with a significant past medical history of asthma, atrial fibrillation on eliquis, COPD , sarcoidosis, diabetes, hypertension, and hyperlipidemia admitted for evaluation of nosebleed since last night. Patient reports the bleeding is coming from both nostrils with clots. She states she has a hole in her septum and thus often bleeds from both nares when she has a nose bleed. She states she has had nosebleeds in the past but they usually stop on their own after a few hours. Patient uses a CPAP mask overnight as well as oxygen during the day due to her COPD. She denies any dizziness, chest pain, shortness of breath. She reports nausea, she states due to swallowing a lot of her own blood. Denies fevers, chills, abdominal pain, diarrhea, lower extremity edema. - History Source History Provided By: Patient Limitations to Obtaining History: No Limitations - Past Medical History SPECIAL PROJECTS COORDINATOR: Yes: Dementia Cardio/Vascular: Yes: Pulmonary Hypertension, Deep Vein Thrombosis, CHF, HTN, Other Pulmonary: Yes: Asthma, COPD, Previously Intubated, Sleep Apnea, Pulmonary Fibrosis, O2 Dependent, Other Gastrointestinal: Yes: GERD, Other Hepatobiliary: Yes: Hepatitis C ...: No Infectious Disease: Yes: Other Musculoskeletal: Yes: Chronic low back pain Rheumatology: Yes: Sarcoidosis (cardiac and pulmonary) Endocrine: Yes: Diabetes Mellitus Additional Medical History: in wheelchair after accident many years ago. Spinal cord stimulator. Multiple drug allergies. History of Ferrer José syndrome - Past Surgical History Past Surgical History: Yes: Laminectomy, AICD, Permanent Pacemaker - Alcohol/Substance Use Hx Alcohol Use: No - Smoking History Smoking history: Never smoked Have you smoked in the past 12 months: No Aproximately how many cigarettes per day: 0 - Social History ADL: Support Services History of Recent Travel: No Home Medications - Allergies Allergies/Adverse Reactions: Allergies Allergy/AdvReac Type Severity Reaction Status Date / Time medroxyprogesterone acetate Allergy Severe stepehns Verified 09/06/17 10:10 [From Depo-Provera] josé syndrome amoxicillin [From Augmentin] Allergy Verified 09/06/17 10:10 amoxicillin trihydrate Allergy Verified 09/06/17 10:10 [From Augmentin] aspirin Allergy Verified 09/06/17 10:10 azithromycin [From Zithromax] Allergy Dewey Verified 09/06/17 10:10 José syndrome bacitracin Allergy Verified 09/06/17 10:10 ciprofloxacin [From Cipro] Allergy Verified 09/06/17 10:10 ciprofloxacin HCl Allergy Verified 09/06/17 10:10 [From Cipro] clavulanic acid Allergy Verified 09/06/17 10:10 [From Augmentin] codeine [Codeine] Allergy Verified 09/06/17 10:10 Iodinated Contrast- Oral and Allergy Verified 09/06/17 10:10 IV Dye [IV Dye, Iodine Containing Contrast ] ketorolac [From Toradol] Allergy Verified 09/06/17 10:10 ketorolac tromethamine Allergy Verified 09/06/17 10:10 [From Toradol] levofloxacin [From Levaquin] Allergy Verified 09/06/17 10:10 metronidazole [From Flagyl] Allergy Verified 09/06/17 10:10 nalbuphine [From Nubain] Allergy Verified 09/06/17 10:10 nalbuphine HCl [From Nubain] Allergy CYANOSIS Verified 09/06/17 10:10 potassium clavulanate Allergy Verified 09/06/17 10:10 [From Augmentin] Shellfish Allergy Verified 09/06/17 10:10 sulfamethoxazole Allergy Verified 09/06/17 10:10 [From Bactrim] trimethoprim [From Bactrim] Allergy Verified 09/06/17 10:10 ivp dye Allergy Severe Swelling Uncoded 09/06/17 10:10 - Home Medications Home Medications: Ambulatory Orders Montelukast Na [Singulair -] 10 mg PO HS 05/02/17 Pregabalin [Lyrica -] 75 mg PO BID 05/02/17 Sennosides [Senna -] 1 tab PO HS 05/02/17 Lisinopril [Prinivil] 10 mg PO DAILY tablet 05/10/17 Morphine *Sr* [Ms Contin -] 15 mg PO BID 7 Days #14 tablet.sa MDD 30 05/10/17 Metoclopramide HCl [Reglan] 5 mg PO TID 08/29/17 Nitroglycerin Sublingual [Nitrostat -] 0.4 mg .ROUTE ASDIR PRN 08/29/17 Nystatin Oral Suspension - [Nystatin Oral Susp 030812 Units/5 ML -] 100,000 units PO Q6H 08/29/17 Omeprazole 40 mg PO HS 08/29/17 Tiotropium [place] [Spiriva Respimat] 2.5 mcg IH DAILY 08/29/17 Insulin (Levemir) [Levemir Vial] 50 units SQ HS ml 09/04/17 Insulin Sliding Scale [Novolog Vial Sliding Scale -] 0 units SQ ACHS 09/06/17 Prednisone [Deltasone] 30 mg PO DAILY 09/06/17 Sodium Chloride Nasal [place] [[place] Nasal [place] -] 2 spray NS BID 09/06/17 Family Disease History - Family Disease History Family Disease History: Other: Mother (3 CVAs, the first in her 60s) Review of Systems - Review of Systems Constitutional: reports: No Symptoms Eyes: reports: No Symptoms HENT: reports: Epistaxis Neck: reports: No Symptoms Cardiovascular: reports: No Symptoms Genitourinary: reports: No Symptoms Musculoskeletal: reports: No Symptoms Integumentary: reports: No Symptoms Neurological: reports: No Symptoms Endocrine: reports: No Symptoms Hematology/Lymphatic: reports: No Symptoms Psychiatric: reports: No Symptoms Physical Exam Vital Signs: Vital Signs Temperature 98 F 09/07/17 10:00 Pulse Rate 78 09/07/17 10:00 Respiratory Rate 20 09/07/17 10:00 Blood Pressure 115/70 09/07/17 10:00 O2 Sat by Pulse Oximetry (%) 97 09/07/17 09:00 Constitutional: Yes: No Distress, Calm Eyes: Yes: Conjunctiva Clear HENT: Yes: Atraumatic, Normocephalic Cardiovascular: Yes: Pulse Irregular Respiratory: Yes: Regular, On Nasal O2, Poor Air Entry Gastrointestinal: Yes: Normal Bowel Sounds, Soft Musculoskeletal: Yes: WNL Extremities: Yes: WNL Integumentary: Yes: WNL Neurological: Yes: Alert, Oriented Psychiatric: Yes: Alert, Oriented Labs: CBC, BMP 09/07/17 06:00 09/07/17 06:00 Assessment/Plan Problem List - Problems (1) Rapid atrial fibrillation Code(s): I48.91 - UNSPECIFIED ATRIAL FIBRILLATION (2) Chronic diastolic CHF (congestive heart failure) Code(s): I50.32 - CHRONIC DIASTOLIC (CONGESTIVE) HEART FAILURE (3) DVT (deep venous thrombosis) Code(s): I82.409 - ACUTE EMBOLISM AND THOMBOS UNSP DEEP VN UNSP LOWER EXTREMITY Qualifiers: DVT location: lower extremity Laterality: left (4) Diabetes mellitus Code(s): E11.9 - TYPE 2 DIABETES MELLITUS WITHOUT COMPLICATIONS Qualifiers: Diabetes mellitus type: type 2 Diabetes mellitus complication status: without complication (5) Epistaxis Code(s): R04.0 - EPISTAXIS patient stable lungs sound good doubt she has had aspiration plan will hold off on starting abx close watch rest continue as per the team and cardiology
--- NOTE | 2017-09-07 14:14 | CONSULT ---
Consult Consult Specialty:: Hematology - History of Present Illness History of Present Illness: Ms Canchola is here for epistaxis(recurrent). Seen by ENT. Pt has other co-morbids. h/o DVT in 12/2016- on eliquis. Cardiology note reviewed, no CV indication of Eliquis for now Sarcoidosis COPD on home O2 [place] Wheel chair bound. Hematology consulted for the need of continued AC in this pt with hx of DVT last year. Pt seen and examined. chart reviewed in detail. - History Source History Provided By: Patient, Medical Record - Past Medical History MEDICAL AIDE: Yes: Dementia Cardio/Vascular: Yes: Pulmonary Hypertension, Deep Vein Thrombosis, CHF, HTN, Other Pulmonary: Yes: Asthma, COPD, Previously Intubated, Sleep Apnea, Pulmonary Fibrosis, O2 Dependent, Other Gastrointestinal: Yes: GERD, Other Hepatobiliary: Yes: Hepatitis C ...: No Infectious Disease: Yes: Other Musculoskeletal: Yes: Chronic low back pain Rheumatology: Yes: Sarcoidosis (cardiac and pulmonary) Endocrine: Yes: Diabetes Mellitus Additional Medical History: in wheelchair after accident many years ago. Spinal cord stimulator. Multiple drug allergies. History of Ferrer José syndrome - Past Surgical History Past Surgical History: Yes: Laminectomy, AICD, Permanent Pacemaker - Alcohol/Substance Use Hx Alcohol Use: No - Smoking History Smoking history: Never smoked Have you smoked in the past 12 months: No Aproximately how many cigarettes per day: 0 - Social History ADL: Support Services History of Recent Travel: No Home Medications - Allergies Allergies/Adverse Reactions: Allergies Allergy/AdvReac Type Severity Reaction Status Date / Time medroxyprogesterone acetate Allergy Severe stepehns Verified 09/06/17 10:10 [From Depo-Provera] josé syndrome amoxicillin [From Augmentin] Allergy Verified 09/06/17 10:10 amoxicillin trihydrate Allergy Verified 09/06/17 10:10 [From Augmentin] aspirin Allergy Verified 09/06/17 10:10 azithromycin [From Zithromax] Allergy Dewey Verified 09/06/17 10:10 José syndrome bacitracin Allergy Verified 09/06/17 10:10 ciprofloxacin [From Cipro] Allergy Verified 09/06/17 10:10 ciprofloxacin HCl Allergy Verified 09/06/17 10:10 [From Cipro] clavulanic acid Allergy Verified 09/06/17 10:10 [From Augmentin] codeine [Codeine] Allergy Verified 09/06/17 10:10 Iodinated Contrast- Oral and Allergy Verified 09/06/17 10:10 IV Dye [IV Dye, Iodine Containing Contrast ] ketorolac [From Toradol] Allergy Verified 09/06/17 10:10 ketorolac tromethamine Allergy Verified 09/06/17 10:10 [From Toradol] levofloxacin [From Levaquin] Allergy Verified 09/06/17 10:10 metronidazole [From Flagyl] Allergy Verified 09/06/17 10:10 nalbuphine [From Nubain] Allergy Verified 09/06/17 10:10 nalbuphine HCl [From Nubain] Allergy CYANOSIS Verified 09/06/17 10:10 potassium clavulanate Allergy Verified 09/06/17 10:10 [From Augmentin] Shellfish Allergy Verified 09/06/17 10:10 sulfamethoxazole Allergy Verified 09/06/17 10:10 [From Bactrim] trimethoprim [From Bactrim] Allergy Verified 09/06/17 10:10 ivp dye Allergy Severe Swelling Uncoded 09/06/17 10:10 - Home Medications Home Medications: Ambulatory Orders Montelukast Na [Singulair -] 10 mg PO HS 05/02/17 Pregabalin [Lyrica -] 75 mg PO BID 05/02/17 Sennosides [Senna -] 1 tab PO HS 05/02/17 Lisinopril [Prinivil] 10 mg PO DAILY tablet 05/10/17 Morphine *Sr* [Ms Contin -] 15 mg PO BID 7 Days #14 tablet.sa MDD 30 05/10/17 Metoclopramide HCl [Reglan] 5 mg PO TID 08/29/17 Nitroglycerin Sublingual [Nitrostat -] 0.4 mg .ROUTE ASDIR PRN 08/29/17 Nystatin Oral Suspension - [Nystatin Oral Susp 744288 Units/5 ML -] 100,000 units PO Q6H 08/29/17 Omeprazole 40 mg PO HS 08/29/17 Tiotropium [place] [Spiriva Respimat] 2.5 mcg IH DAILY 08/29/17 Insulin (Levemir) [Levemir Vial] 50 units SQ HS ml 09/04/17 Insulin Sliding Scale [Novolog Vial Sliding Scale -] 0 units SQ ACHS 09/06/17 Prednisone [Deltasone] 30 mg PO DAILY 09/06/17 Sodium Chloride Nasal [place] [[place] Nasal [place] -] 2 spray NS BID 09/06/17 Family Disease History - Family Disease History Family Disease History: Other: Mother (3 CVAs, the first in her 60s) Review of Systems - Review of Systems Constitutional: reports: Weakness HENT: reports: Other (controlled epistaxis) Physical Exam Vital Signs: Vital Signs Temperature 98 F 09/07/17 10:00 Pulse Rate 78 09/07/17 10:00 Respiratory Rate 20 09/07/17 10:00 Blood Pressure 115/70 09/07/17 10:00 O2 Sat by Pulse Oximetry (%) 97 09/07/17 09:00 Constitutional: Yes: No Distress, Calm Eyes: Yes: Conjunctiva Clear HENT: Yes: Atraumatic Neck: Yes: Supple Cardiovascular: Yes: Regular Rate and Rhythm Respiratory: Yes: Regular Gastrointestinal: Yes: Abdomen, Obese Extremities: Yes: WNL Edema: No Labs: CBC, BMP 09/07/17 06:00 09/07/17 06:00 Problem List - Problems (1) DVT (deep venous thrombosis) Code(s): I82.409 - ACUTE EMBOLISM AND THOMBOS UNSP DEEP VN UNSP LOWER EXTREMITY Qualifiers: DVT location: lower extremity Laterality: left (2) Chronic diastolic CHF (congestive heart failure) Code(s): I50.32 - CHRONIC DIASTOLIC (CONGESTIVE) HEART FAILURE (3) Epistaxis Code(s): R04.0 - EPISTAXIS (4) Interstitial lung disease Code(s): J84.9 - INTERSTITIAL PULMONARY DISEASE, UNSPECIFIED (5) Sarcoidosis Code(s): D86.9 - SARCOIDOSIS, UNSPECIFIED Assessment/Plan chart reviewed in detail. Patient has h/o DVT in 12/2016, for which she remains on eliquis 5mg bid. She has multiple co-morbids and also she is immobile(remains in wheel chair) , put her at high risk for a second clot. It a challenging decision to stop AC (the epistaxis hx is reviewed). check d-dimer. Recent US vascular is negative for DVT. Would consider the Prophylactic dose of Eliquis(for prevention of DVT) --which is 2.5mg bid once hgb stable and adequate hemostasis achieved. d/w pt the above options. will d/w cardiology For regular screening labs for anemia
--- NOTE | 2017-09-07 18:04 | PN ---
Progress Note, Physician History of Present Illness: doing good - Current Medication List Current Medications: Active Medications Insulin Aspart (Novolog Vial Sliding Scale -) 1 vial SQ [facility]; Protocol Last Admin: 09/07/17 16:51 Dose: 12 units Insulin Detemir (Levemir Vial) 50 units SQ [facility] Last Admin: 09/06/17 22:21 Dose: Not Given Lisinopril (Prinivil) 10 mg PO DAILY [facility] Last Admin: 09/07/17 09:11 Dose: 10 mg Metoclopramide HCl (Reglan -) 5 mg PO TID [facility] Last Admin: 09/07/17 14:20 Dose: 5 mg Montelukast Sodium (Singulair -) 10 mg PO [facility] Last Admin: 09/06/17 22:22 Dose: 10 mg Morphine Sulfate (Ms Contin -) 15 mg PO BID [facility] Last Admin: 09/07/17 09:11 Dose: 15 mg Oxymetazoline HCl (Afrin -) 2 spray NS BID PRN PRN Reason: NASAL CONGESTION Last Admin: 09/06/17 22:20 Dose: 2 sprays Pantoprazole Sodium (Protonix -) 40 mg PO DAILY [facility] Last Admin: 09/07/17 09:12 Dose: 40 mg Prednisone (Deltasone -) 30 mg PO DAILY [facility] Last Admin: 09/07/17 09:10 Dose: 30 mg Pregabalin (Lyrica -) 75 mg PO BID [facility] Last Admin: 09/07/17 09:11 Dose: 75 mg Senna (Senna -) 1 tab PO [facility] Last Admin: 09/06/17 22:22 Dose: 1 tab Tiotropium [place] (Spiriva -) 1 puff IH DAILY [facility] Last Admin: 09/07/17 09:36 Dose: 1 puff - Objective Vital Signs: Vital Signs Temperature 982 F H 09/07/17 14:59 Pulse Rate 125 H 09/07/17 14:59 Respiratory Rate 20 09/07/17 14:59 Blood Pressure 99/66 09/07/17 14:59 O2 Sat by Pulse Oximetry (%) 97 09/07/17 09:00 Constitutional: Yes: No Distress HENT: Yes: Atraumatic Neck: Yes: Supple Cardiovascular: Yes: Regular Rate and Rhythm Respiratory: Yes: CTA Bilaterally Gastrointestinal: Yes: Normal Bowel Sounds Extremities: Yes: WNL Neurological: Yes: Alert, Oriented Labs: CBC, BMP 09/07/17 06:00 09/07/17 06:00 INR, PTT INR 1.12 (0.82-1.09) 09/06/17 15:00 Problem List - Problems (1) Rapid atrial fibrillation Assessment/Plan: on meds rate improving Code(s): I48.91 - UNSPECIFIED ATRIAL FIBRILLATION (2) Chronic diastolic CHF (congestive heart failure) Code(s): I50.32 - CHRONIC DIASTOLIC (CONGESTIVE) HEART FAILURE (3) DVT (deep venous thrombosis) Assessment/Plan: negative Code(s): I82.409 - ACUTE EMBOLISM AND THOMBOS UNSP DEEP VN UNSP LOWER EXTREMITY Qualifiers: DVT location: lower extremity Laterality: left (4) Diabetes mellitus Assessment/Plan: on insulin bgms Code(s): E11.9 - TYPE 2 DIABETES MELLITUS WITHOUT COMPLICATIONS Qualifiers: Diabetes mellitus type: type 2 Diabetes mellitus complication status: without complication (5) Epistaxis Assessment/Plan: resolved Code(s): R04.0 - EPISTAXIS
[2017-09-07] MEDS: SENNOSIDES 8.6MG TABLET (FP) PO SCH (22:10)
[2017-09-07] MEDS: MONTELUKAST NA 10 MG TABLET PO SCH (22:10)
[2017-09-07] MEDS: INSULIN (LEVEMIR) 100 UNITS/ML UNITS SQ SCH (22:12)
[2017-09-08] MEDS: ALBUTEROL SO4 2.5/IPRATROPIUM 0.5 INH SOL 3 ML VIAL.NEB. NEB PRN ×3 (01:48→20:15)
[2017-09-08] MEDS: INSULIN SLIDING SCALE (NOVOLOG) 1 VIAL SQ SCH ×4 (06:17→21:38)
[2017-09-08] MEDS: METOCLOPRAMIDE HCL 10 MG TABLET (FP) PO SCH ×3 (06:17→21:36)
[2017-09-08 07:15] LABS: HEMOGLOBIN 8.5 GM/dL (10.7-15.3); MCH 28.7 pg (25.7-33.7); MCHC 32.7 g/dl (32.0-36.0); MEAN CELL VOLUME 87.8 fl (80-96); MEAN PLT VOLUME 7.5 fl (7.5-11.1); PLATELET COUNT 252 K/MM3 (134-434); RBC 2.96 M/mm3 (3.60-5.2); RDW 16.4 % (11.6-15.6); WHITE BLOOD COUNT 11.4 K/mm3 (4.0-10.0)
--- NOTE | 2017-09-08 08:27 | PN ---
Progress Note, Physician Chief Complaint: TELE: Atrial tach, multifocal ICD interrogated yesterday- no AF. SVT noted. History of Present Illness: Appreciated Heme consult - Current Medication List Current Medications: Active Medications Albuterol/Ipratropium (Duoneb -) 1 amp NEB Q4H PRN PRN Reason: SHORTNESS OF BREATH Last Admin: 09/08/17 01:48 Dose: 1 amp Insulin Aspart (Novolog Vial Sliding Scale -) 1 vial SQ [facility]; Protocol Last Admin: 09/08/17 06:17 Dose: 4 units Insulin Detemir (Levemir Vial) 50 units SQ [facility] Last Admin: 09/07/17 22:12 Dose: 50 units Lisinopril (Prinivil) 10 mg PO DAILY [facility] Last Admin: 09/07/17 09:11 Dose: 10 mg Metoclopramide HCl (Reglan -) 5 mg PO TID [facility] Last Admin: 09/08/17 06:17 Dose: 5 mg Montelukast Sodium (Singulair -) 10 mg PO [facility] Last Admin: 09/07/17 22:10 Dose: 10 mg Morphine Sulfate (Ms Contin -) 15 mg PO BID [facility] Last Admin: 09/07/17 22:11 Dose: 15 mg Oxymetazoline HCl (Afrin -) 2 spray NS BID PRN PRN Reason: NASAL CONGESTION Last Admin: 09/06/17 22:20 Dose: 2 sprays Pantoprazole Sodium (Protonix -) 40 mg PO DAILY [facility] Last Admin: 09/07/17 09:12 Dose: 40 mg Prednisone (Deltasone -) 30 mg PO DAILY [facility] Last Admin: 09/07/17 09:10 Dose: 30 mg Pregabalin (Lyrica -) 75 mg PO BID [facility] Last Admin: 09/07/17 22:11 Dose: 75 mg Senna (Senna -) 1 tab PO [facility] Last Admin: 09/07/17 22:10 Dose: 1 tab Tiotropium [place] (Spiriva -) 1 puff IH DAILY [facility] Last Admin: 09/07/17 09:36 Dose: 1 puff - Objective Vital Signs: Vital Signs Temperature 98.6 F 09/08/17 05:29 Pulse Rate 115 H 09/08/17 05:29 Respiratory Rate 20 09/08/17 05:29 Blood Pressure 101/66 09/08/17 05:29 O2 Sat by Pulse Oximetry (%) 94 L 09/07/17 21:00 Constitutional: Yes: Calm Cardiovascular: Yes: Regular Rate and Rhythm Respiratory: Yes: Rhonchi Edema: Yes Edema: LLE: Trace, RLE: Trace Neurological: Yes: Alert, Oriented Labs: CBC, BMP 09/08/17 06:45 09/07/17 06:00 INR, PTT INR 1.12 (0.82-1.09) 09/06/17 15:00 - ....Imaging EKG: Image Reviewed Problem List - Problems (1) Epistaxis Code(s): R04.0 - EPISTAXIS (2) DVT (deep venous thrombosis) Code(s): I82.409 - ACUTE EMBOLISM AND THOMBOS UNSP DEEP VN UNSP LOWER EXTREMITY Qualifiers: DVT location: lower extremity Laterality: left (3) Multifocal atrial tachycardia Code(s): I47.1 - SUPRAVENTRICULAR TACHYCARDIA (4) Sarcoidosis Code(s): D86.9 - SARCOIDOSIS, UNSPECIFIED (5) ICD (implantable cardioverter-defibrillator) in place Code(s): Z95.810 - PRESENCE OF AUTOMATIC (IMPLANTABLE) CARDIAC DEFIBRILLATOR (6) Chronic diastolic CHF (congestive heart failure) Code(s): I50.32 - CHRONIC DIASTOLIC (CONGESTIVE) HEART FAILURE (7) Interstitial lung disease Code(s): J84.9 - INTERSTITIAL PULMONARY DISEASE, UNSPECIFIED (8) Diabetes mellitus Code(s): E11.9 - TYPE 2 DIABETES MELLITUS WITHOUT COMPLICATIONS Qualifiers: Diabetes mellitus type: type 2 Diabetes mellitus complication status: without complication Assessment/Plan IMP: Complicated, chronically ill, sedentary patient with long standing Sarcoidosis with pulmonary and cardiac involvement s/p ICD for VT and syncope several years ago; on long standing NOAC therapy for LLE DVT diagnosed in 12/2016, which appears to have been "unprovoked"- although her sedentary status is essentially a chronic risk factor. There is also a question of PAF, although I have no documentation of it and thus far we have seen only sinus tach, atrial tach and periods of probable MAT secondary to her lung disease. ICD interrogation yesterday with periods of SVT ( likely ATACH) no evidence of AF. She now presents with severe epistaxis requiring ENT electrocautery. REC: 1. Appreciate Heme input, D- dimer negative. Most recent US with no DVT. Can likely be maintained on the prophylactic dose of Eliquis 2.5 mg BID 2. Periods of SVT- likely MAT/AT continue. Will resume short acting Cardizem 30mg q8H with hold parameters.
[2017-09-08] MEDS: LISINOPRIL 10 MG TABLET (FP) PO SCH (09:47)
[2017-09-08] MEDS: predniSONE 10 MG TABLET (UD) PO SCH (09:47)
[2017-09-08] MEDS: morphine SO4 SUSTAINED ACTING 15 MG TABLET.SA PO SCH ×2 (09:47→21:37)
[2017-09-08] MEDS: TIOTROPIUM BROMIDE 18 MCG CAPSULES IH SCH (09:48)
[2017-09-08] MEDS: dilTIAZem HCL 30 MG TABLET (FP) PO SCH ×3 (09:48→21:38)
[2017-09-08] MEDS: PANTOPRAZOLE 40 MG TABLET (FP) PO SCH (09:48)
[2017-09-08] MEDS: PREGABALIN 75 MG CAPSULE PO SCH ×2 (09:48→21:36)
--- NOTE | 2017-09-08 13:40 | HOSP ---
Subjective - Review of Symptoms Subjective: Called at 6:00am to evaluate chest pain. on arrival, patient reports that evi is not having any acute chest pain and that she has had this cruddy feeling in her whole body all day. Denies shortness of breath, abdominal pain, n/v. she reports that her chest hurts when she presses on it. HR tachycardic chest wall tender to palpation and pts chest pain is reproducible on palpatio EKG was done, unchanged from prior. continue management as per primary team Physical Examination Vital Signs: Vital Signs Temperature 98.6 F 09/08/17 05:29 Pulse Rate 115 H 09/08/17 05:29 Respiratory Rate 20 09/08/17 05:29 Blood Pressure 101/66 09/08/17 05:29 O2 Sat by Pulse Oximetry (%) 94 L 09/07/17 21:00 Labs: CBC, BMP 09/08/17 06:45 09/07/17 06:00 Visit type - Emergency Visit Emergency Visit: No - New Patient This patient is new to me today: Yes Date on this admission: 09/08/17 - Critical Care Critical Care patient: No
--- NOTE | 2017-09-08 16:44 | PN ---
Progress Note (short form) - Note Progress Note: seen and examined. Constitutional: Yes: No Distress, Calm Eyes: Yes: Conjunctiva Clear HENT: Yes: Atraumatic Neck: Yes: Supple Cardiovascular: Yes: Regular Rate and Rhythm, tachy Respiratory: Yes: Regular Gastrointestinal: Yes: Abdomen, Obese Extremities: Yes: WNLLast Vital Signs Temp Pulse Resp BP Pulse Ox 98.3 F 112 H 18 108/65 98 09/08/17 13:57 09/08/17 13:57 09/08/17 13:57 09/08/17 10:00 09/08/17 10:00 CBC, BMP 09/08/17 06:45 09/07/17 06:00 Current Medications Generic Name Dose Route Start Last Admin Trade Name Freq PRN Reason Stop Dose Admin Albuterol/Ipratropium 1 amp 09/07/17 22:12 09/08/17 11:10 Duoneb - NEB 1 amp Q4H PRN Administration SHORTNESS OF BREATH Diltiazem HCl 30 mg 09/08/17 08:45 09/08/17 13:57 Cardizem - PO Not Given TID EYAL Insulin Aspart 1 vial 09/06/17 22:00 09/08/17 11:53 Novolog Vial Sliding Scale - SQ 4 units ACHS EYAL Administration Protocol Insulin Detemir 50 units 09/06/17 22:00 09/07/17 22:12 Levemir Vial SQ 50 units HS EYAL Administration Lisinopril 10 mg 09/07/17 10:00 09/08/17 09:47 Prinivil PO 10 mg DAILY EYAL Administration Metoclopramide HCl 5 mg 09/06/17 22:00 09/08/17 13:57 Reglan - PO 5 mg TID EYAL Administration Montelukast Sodium 10 mg 09/06/17 22:00 09/07/17 22:10 Singulair - PO 10 mg HS EYAL Administration Morphine Sulfate 15 mg 09/06/17 23:00 09/08/17 09:47 Ms Contin - PO 15 mg BID EYAL Administration Oxymetazoline HCl 2 spray 09/06/17 10:16 09/06/17 22:20 Afrin - NS 2 sprays BID PRN Administration NASAL CONGESTION Pantoprazole Sodium 40 mg 09/07/17 10:00 09/08/17 09:48 Protonix - PO 40 mg DAILY EYAL Administration Prednisone 30 mg 09/07/17 10:00 09/08/17 09:47 Deltasone - PO 30 mg DAILY EYAL Administration Pregabalin 75 mg 09/06/17 22:00 09/08/17 09:48 Lyrica - PO 75 mg BID EYAL Administration Senna 1 tab 09/06/17 22:00 09/07/17 22:10 Senna - PO 1 tab HS EYAL Administration Tiotropium [place] 1 puff 09/07/17 10:00 09/08/17 09:48 Spiriva - IH 1 puff DAILY EYAL Administration h/o DVT : s/p completion of AC 6m d-dimer negative will likely start eliquis 2.5mg bid in the am. CBC in the am f/u on screening anemia blood work rest per PMD Problem List - Problems (1) DVT (deep venous thrombosis) Code(s): I82.409 - ACUTE EMBOLISM AND THOMBOS UNSP DEEP VN UNSP LOWER EXTREMITY Qualifiers: DVT location: lower extremity Laterality: left (2) Chronic diastolic CHF (congestive heart failure) Code(s): I50.32 - CHRONIC DIASTOLIC (CONGESTIVE) HEART FAILURE (3) Epistaxis Code(s): R04.0 - EPISTAXIS (4) Interstitial lung disease Code(s): J84.9 - INTERSTITIAL PULMONARY DISEASE, UNSPECIFIED (5) Sarcoidosis Code(s): D86.9 - SARCOIDOSIS, UNSPECIFIED
--- NOTE | 2017-09-08 18:45 | PN ---
Progress Note, Physician History of Present Illness: doing good - Current Medication List Current Medications: Active Medications Albuterol/Ipratropium (Duoneb -) 1 amp NEB Q4H PRN PRN Reason: SHORTNESS OF BREATH Last Admin: 09/08/17 11:10 Dose: 1 amp Diltiazem HCl (Cardizem -) 30 mg PO TID [facility] Last Admin: 09/08/17 13:57 Dose: Not Given Insulin Aspart (Novolog Vial Sliding Scale -) 1 vial SQ [facility]; Protocol Last Admin: 09/08/17 17:34 Dose: 12 units Insulin Detemir (Levemir Vial) 50 units SQ [facility] Last Admin: 09/07/17 22:12 Dose: 50 units Lisinopril (Prinivil) 10 mg PO DAILY [facility] Last Admin: 09/08/17 09:47 Dose: 10 mg Metoclopramide HCl (Reglan -) 5 mg PO TID [facility] Last Admin: 09/08/17 13:57 Dose: 5 mg Montelukast Sodium (Singulair -) 10 mg PO [facility] Last Admin: 09/07/17 22:10 Dose: 10 mg Morphine Sulfate (Ms Contin -) 15 mg PO BID [facility] Last Admin: 09/08/17 09:47 Dose: 15 mg Oxymetazoline HCl (Afrin -) 2 spray NS BID PRN PRN Reason: NASAL CONGESTION Last Admin: 09/06/17 22:20 Dose: 2 sprays Pantoprazole Sodium (Protonix -) 40 mg PO DAILY [facility] Last Admin: 09/08/17 09:48 Dose: 40 mg Prednisone (Deltasone -) 30 mg PO DAILY [facility] Last Admin: 09/08/17 09:47 Dose: 30 mg Pregabalin (Lyrica -) 75 mg PO BID [facility] Last Admin: 09/08/17 09:48 Dose: 75 mg Senna (Senna -) 1 tab PO [facility] Last Admin: 09/07/17 22:10 Dose: 1 tab Tiotropium [place] (Spiriva -) 1 puff IH DAILY [facility] Last Admin: 09/08/17 09:48 Dose: 1 puff - Objective Vital Signs: Vital Signs Temperature 98.3 F 09/08/17 13:57 Pulse Rate 112 H 09/08/17 13:57 Respiratory Rate 18 09/08/17 13:57 Blood Pressure 108/65 09/08/17 10:00 O2 Sat by Pulse Oximetry (%) 98 09/08/17 10:00 Constitutional: Yes: No Distress HENT: Yes: Atraumatic Neck: Yes: Supple Cardiovascular: Yes: Regular Rate and Rhythm Respiratory: Yes: CTA Bilaterally Gastrointestinal: Yes: Normal Bowel Sounds Extremities: Yes: WNL Neurological: Yes: Alert, Oriented Labs: CBC, BMP 09/08/17 06:45 09/07/17 06:00 INR, PTT INR 1.12 (0.82-1.09) 09/06/17 15:00 Problem List - Problems (1) Rapid atrial fibrillation Assessment/Plan: on meds on eliquis rate improving Code(s): I48.91 - UNSPECIFIED ATRIAL FIBRILLATION (2) Chronic diastolic CHF (congestive heart failure) Code(s): I50.32 - CHRONIC DIASTOLIC (CONGESTIVE) HEART FAILURE (3) DVT (deep venous thrombosis) Assessment/Plan: on eliquis Code(s): I82.409 - ACUTE EMBOLISM AND THOMBOS UNSP DEEP VN UNSP LOWER EXTREMITY Qualifiers: DVT location: lower extremity Laterality: left (4) Diabetes mellitus Assessment/Plan: on insulin bgms Code(s): E11.9 - TYPE 2 DIABETES MELLITUS WITHOUT COMPLICATIONS Qualifiers: Diabetes mellitus type: type 2 Diabetes mellitus complication status: without complication (5) Epistaxis Assessment/Plan: resolved Code(s): R04.0 - EPISTAXIS
--- NOTE | 2017-09-08 21:18 | PN ---
Progress Note, Physician History of Present Illness: events noted from last night patient stable no complaints - Current Medication List Current Medications: Active Medications Albuterol/Ipratropium (Duoneb -) 1 amp NEB Q4H PRN PRN Reason: SHORTNESS OF BREATH Last Admin: 09/08/17 20:15 Dose: 1 amp Diltiazem HCl (Cardizem -) 30 mg PO TID [facility] Last Admin: 09/08/17 13:57 Dose: Not Given Insulin Aspart (Novolog Vial Sliding Scale -) 1 vial SQ [facility]; Protocol Last Admin: 09/08/17 17:34 Dose: 12 units Insulin Detemir (Levemir Vial) 50 units SQ [facility] Last Admin: 09/07/17 22:12 Dose: 50 units Lisinopril (Prinivil) 10 mg PO DAILY [facility] Last Admin: 09/08/17 09:47 Dose: 10 mg Metoclopramide HCl (Reglan -) 5 mg PO TID [facility] Last Admin: 09/08/17 13:57 Dose: 5 mg Montelukast Sodium (Singulair -) 10 mg PO [facility] Last Admin: 09/07/17 22:10 Dose: 10 mg Morphine Sulfate (Ms Contin -) 15 mg PO BID [facility] Last Admin: 09/08/17 09:47 Dose: 15 mg Oxymetazoline HCl (Afrin -) 2 spray NS BID PRN PRN Reason: NASAL CONGESTION Last Admin: 09/06/17 22:20 Dose: 2 sprays Pantoprazole Sodium (Protonix -) 40 mg PO DAILY [facility] Last Admin: 09/08/17 09:48 Dose: 40 mg Prednisone (Deltasone -) 30 mg PO DAILY [facility] Last Admin: 09/08/17 09:47 Dose: 30 mg Pregabalin (Lyrica -) 75 mg PO BID [facility] Last Admin: 09/08/17 09:48 Dose: 75 mg Senna (Senna -) 1 tab PO [facility] Last Admin: 09/07/17 22:10 Dose: 1 tab Tiotropium [place] (Spiriva -) 1 puff IH DAILY [facility] Last Admin: 09/08/17 09:48 Dose: 1 puff - Objective Vital Signs: Vital Signs Temperature 98.5 F 09/08/17 20:30 Pulse Rate 134 H 09/08/17 20:30 Respiratory Rate 18 09/08/17 20:30 Blood Pressure 95/64 09/08/17 20:30 O2 Sat by Pulse Oximetry (%) 98 09/08/17 20:30 Constitutional: Yes: No Distress, Calm Cardiovascular: Yes: Pulse Irregular Respiratory: Yes: Regular, CTA Bilaterally, On Nasal O2 Gastrointestinal: Yes: Normal Bowel Sounds, Soft Musculoskeletal: Yes: WNL Extremities: Yes: WNL Neurological: Yes: Alert, Oriented Psychiatric: Yes: Alert, Oriented Labs: CBC, BMP 09/08/17 06:45 09/07/17 06:00 INR, PTT INR 1.12 (0.82-1.09) 09/06/17 15:00 Assessment/Plan Problem List - Problems (1) Rapid atrial fibrillation Code(s): I48.91 - UNSPECIFIED ATRIAL FIBRILLATION (2) Chronic diastolic CHF (congestive heart failure) Code(s): I50.32 - CHRONIC DIASTOLIC (CONGESTIVE) HEART FAILURE (3) DVT (deep venous thrombosis) Code(s): I82.409 - ACUTE EMBOLISM AND THOMBOS UNSP DEEP VN UNSP LOWER EXTREMITY Qualifiers: DVT location: lower extremity Laterality: left (4) Diabetes mellitus Code(s): E11.9 - TYPE 2 DIABETES MELLITUS WITHOUT COMPLICATIONS Qualifiers: Diabetes mellitus type: type 2 Diabetes mellitus complication status: without complication (5) Epistaxis Code(s): R04.0 - EPISTAXIS plan stable off of abx close watch rest continue as per the team and cardiology
[2017-09-08] MEDS: INSULIN (LEVEMIR) 100 UNITS/ML UNITS SQ SCH (21:33)
[2017-09-08] MEDS: MONTELUKAST NA 10 MG TABLET PO SCH (21:37)
[2017-09-08] MEDS: SENNOSIDES 8.6MG TABLET (FP) PO SCH (21:37)
[2017-09-09] MEDS: ALBUTEROL SO4 2.5/IPRATROPIUM 0.5 INH SOL 3 ML VIAL.NEB. NEB PRN ×3 (03:45→20:54)
[2017-09-09] MEDS: METOCLOPRAMIDE HCL 10 MG TABLET (FP) PO SCH ×3 (06:05→22:07)
[2017-09-09] MEDS: INSULIN SLIDING SCALE (NOVOLOG) 1 VIAL SQ SCH ×4 (06:06→22:16)
[2017-09-09] MEDS: dilTIAZem HCL 30 MG TABLET (FP) PO SCH ×3 (06:06→22:06)
[2017-09-09 07:58] LABS: BASO % 0.2 % (0-2.0); EOS % 0.7 % (0-4.5); HEMATOCRIT 24.5 % (32.4-45.2); HEMOGLOBIN 8.1 GM/dL (10.7-15.3); LYMPH % 17.1 % (8-40); MCH 28.8 pg (25.7-33.7); MCHC 32.8 g/dl (32.0-36.0); MEAN CELL VOLUME 87.8 fl (80-96); MEAN PLT VOLUME 7.6 fl (7.5-11.1); MONO % 4.7 % (3.8-10.2); NEUT % 77.3 % (42.8-82.8); PLATELET COUNT 262 K/MM3 (134-434); RDW 16.3 % (11.6-15.6); WHITE BLOOD COUNT 11.7 K/mm3 (4.0-10.0)
[2017-09-09 08:11] LABS: SERUM IRON SATURATION 26 % (15-55); TOTAL IRON BINDING CAPACITY 187 ug/dL (250-450); UIBC 139 ug/dL (118-369)
--- NOTE | 2017-09-09 08:39 | PN ---
Progress Note, Physician Chief Complaint: no further bleeding Heme input appreciated - Current Medication List Current Medications: Active Medications Albuterol/Ipratropium (Duoneb -) 1 amp NEB Q4H PRN PRN Reason: SHORTNESS OF BREATH Last Admin: 09/09/17 07:54 Dose: 1 amp Diltiazem HCl (Cardizem -) 30 mg PO TID [facility] Last Admin: 09/09/17 06:06 Dose: Not Given Insulin Aspart (Novolog Vial Sliding Scale -) 1 vial SQ [facility]; Protocol Last Admin: 09/09/17 06:06 Dose: 4 units Insulin Detemir (Levemir Vial) [address] [facility] Last Admin: 09/08/17 21:33 Dose: 50 units Lisinopril (Prinivil) 10 mg PO DAILY [facility] Last Admin: 09/08/17 09:47 Dose: 10 mg Metoclopramide HCl (Reglan -) 5 mg PO TID [facility] Last Admin: 09/09/17 06:05 Dose: 5 mg Montelukast Sodium (Singulair -) 10 [address] [facility] Last Admin: 09/08/17 21:37 Dose: 10 mg Morphine Sulfate (Ms Contin -) 15 mg PO BID [facility] Last Admin: 09/08/17 21:37 Dose: 15 mg Oxymetazoline HCl (Afrin -) 2 spray NS BID PRN PRN Reason: NASAL CONGESTION Last Admin: 09/06/17 22:20 Dose: 2 sprays Pantoprazole Sodium (Protonix -) 40 mg PO DAILY [facility] Last Admin: 09/08/17 09:48 Dose: 40 mg Prednisone (Deltasone -) 30 mg PO DAILY [facility] Last Admin: 09/08/17 09:47 Dose: 30 mg Pregabalin (Lyrica -) 75 mg PO BID [facility] Last Admin: 09/08/17 21:36 Dose: 75 mg Senna (Senna -) 1 tab PO [facility] Last Admin: 09/08/17 21:37 Dose: 1 tab Tiotropium [place] (Spiriva -) 1 puff IH DAILY [facility] Last Admin: 09/08/17 09:48 Dose: 1 puff - Objective Vital Signs: Vital Signs Temperature 98 F 09/09/17 02:16 Pulse Rate 90 09/09/17 06:00 Respiratory Rate 20 09/09/17 06:00 Blood Pressure 97/42 09/09/17 06:00 O2 Sat by Pulse Oximetry (%) 98 09/08/17 20:30 Constitutional: Yes: Calm Cardiovascular: Yes: Regular Rate and Rhythm Respiratory: Yes: CTA Bilaterally Gastrointestinal: Yes: Soft Edema: No Neurological: Yes: Alert, Oriented ...Motor Strength: WNL Labs: CBC, BMP 09/09/17 06:58 09/07/17 06:00 INR, PTT INR 1.12 (0.82-1.09) 09/06/17 15:00 - ....Imaging EKG: Image Reviewed Problem List - Problems (1) Epistaxis Code(s): R04.0 - EPISTAXIS (2) DVT (deep venous thrombosis) Code(s): I82.409 - ACUTE EMBOLISM AND THOMBOS UNSP DEEP VN UNSP LOWER EXTREMITY Qualifiers: DVT location: lower extremity Laterality: left (3) Multifocal atrial tachycardia Code(s): I47.1 - SUPRAVENTRICULAR TACHYCARDIA (4) Sarcoidosis Code(s): D86.9 - SARCOIDOSIS, UNSPECIFIED (5) ICD (implantable cardioverter-defibrillator) in place Code(s): Z95.810 - PRESENCE OF AUTOMATIC (IMPLANTABLE) CARDIAC DEFIBRILLATOR (6) Chronic diastolic CHF (congestive heart failure) Code(s): I50.32 - CHRONIC DIASTOLIC (CONGESTIVE) HEART FAILURE (7) Interstitial lung disease Code(s): J84.9 - INTERSTITIAL PULMONARY DISEASE, UNSPECIFIED (8) Diabetes mellitus Code(s): E11.9 - TYPE 2 DIABETES MELLITUS WITHOUT COMPLICATIONS Qualifiers: Diabetes mellitus type: type 2 Diabetes mellitus complication status: without complication Assessment/Plan IMP: Complicated, chronically ill, sedentary patient with long standing Sarcoidosis with pulmonary and cardiac involvement s/p ICD for VT and syncope several years ago; on long standing NOAC therapy for LLE DVT diagnosed in 12/2016, which appears to have been "unprovoked"- although her sedentary status is essentially a chronic risk factor. There is also a question of PAF, although I have no documentation of it and thus far we have seen only sinus tach, atrial tach and periods of probable MAT secondary to her lung disease. ICD interrogation yesterday with periods of SVT ( likely ATACH) no evidence of AF. She now presents with severe epistaxis requiring ENT electrocautery. REC: 1. Appreciate Heme input, D- dimer negative. Most recent US with no DVT. No further bleeding, Hb stable. Will resume Eliquis at dose suggested by Heme. 2. Periods of SVT- likely MAT/AT continue. Will resume short acting Cardizem 30mg q8H with hold parameters.
[2017-09-09] MEDS: PANTOPRAZOLE 40 MG TABLET (FP) PO SCH (09:10)
[2017-09-09] MEDS: PREGABALIN 75 MG CAPSULE PO SCH ×2 (09:10→22:06)
[2017-09-09] MEDS: morphine SO4 SUSTAINED ACTING 15 MG TABLET.SA PO SCH ×2 (09:10→22:06)
[2017-09-09] MEDS: LISINOPRIL 10 MG TABLET (FP) PO SCH (09:10)
[2017-09-09] MEDS: predniSONE 10 MG TABLET (UD) PO SCH (09:10)
[2017-09-09] MEDS: TIOTROPIUM BROMIDE 18 MCG CAPSULES IH SCH (09:11)
[2017-09-09] MEDS: APIXABAN 2.5 MG TABLET PO SCH ×2 (11:48→22:06)
--- NOTE | 2017-09-09 13:25 | HOL ---
Hook-up date: 2017-09-07 09:30:00 Duration: 24:00:00 Test Indications: PAT/MAT VS AFIB Medications: [id number] QRS complexes 26 Ventricular ectopics which represent <1 % of total QRS comp. 151 Supraventricular ectopics which represent <1 % of total QRS comp. * Paced QRS complexs which represent % of total QRS comp. * % of Time Classified as Noise VENTRICULAR ECTOPY 6 Isolated 0 Bigeminal Cycles 0 Couplets 1 Runs 20 Beats in Runs 20 Beats LONGEST at 110 BPM at 16:08:41 2017-09-07 20 Beats FASTEST at 110 BPM at 16:08:41 2017-09-07 SUPRAVENTRICULAR ECTOPY 115 Isolated 18 Couplets 0 Runs 0 Beats in Runs * Beats LONGEST at * BPM at :: -- * Beats FASTEST at * BPM at :: -- HEART RATES 84 MIN at 06:52:31 2017-09-08 118 AVG 155 MAX at 09:40:01 2017-09-07 LONGEST RR 1.032 secs at 09:27:51 2017-09-08 SCANNED BY ANTONIETA SHORT ON 09/09/17 1. Baseline sinus rhythm with avg hr 118 and range 84-155. Frequent sinus tachycardia. 2. No significant bradycardia/pauses. 3. Rare pvcs and pacs. 4. One run of NSVT (20 beats). 5. No VF, afib, aflutter, svt. 6. No diary submitted. Confirmed by PAT SAAB, PAPO ([id number]) on 09/09/2017 1:25:04 PM Referred By: CHRIS ALBERT DR Overread By: PAPO STEWART MD
[2017-09-09 15:00] VITALS: BMI 34.2
[2017-09-09] MEDS ORDERED: BISACODYL 10 MG SUPP.RECT RC ONE (16:00)
--- NOTE | 2017-09-09 16:14 | PN ---
Progress Note, Physician History of Present Illness: patient stable no more bleeding noted still weak - Current Medication List Current Medications: Active Medications Albuterol/Ipratropium (Duoneb -) 1 amp NEB Q4H PRN PRN Reason: SHORTNESS OF BREATH Last Admin: 09/09/17 07:54 Dose: 1 amp Apixaban (Eliquis -) 2.5 mg PO BID [facility]EDS [facility] Last Admin: 09/09/17 11:48 Dose: 2.5 mg Diltiazem HCl (Cardizem -) 30 mg PO TID [facility] Last Admin: 09/09/17 14:04 Dose: 30 mg Insulin Aspart (Novolog Vial Sliding Scale -) 1 vial SQ [facility] COUNTS INCLUDE 234 BEDS AT [facility]; Protocol Last Admin: 09/09/17 11:48 Dose: 6 units Insulin Detemir (Levemir Vial) 50 units SQ [facility] Last Admin: 09/08/17 21:33 Dose: 50 units Lisinopril (Prinivil) 10 mg PO DAILY [facility] 234 [facility]S [facility] Last Admin: 09/09/17 09:10 Dose: 10 mg Metoclopramide HCl (Reglan -) 5 mg PO TID [facility] Last Admin: 09/09/17 14:04 Dose: 5 mg Montelukast Sodium (Singulair -) 10 mg PO [facility] Last Admin: 09/08/17 21:37 Dose: 10 mg Morphine Sulfate (Ms Contin -) 15 mg PO BID [facility] Last Admin: 09/09/17 09:10 Dose: 15 mg Oxymetazoline HCl (Afrin -) 2 spray NS BID PRN PRN Reason: NASAL CONGESTION Last Admin: 09/06/17 22:20 Dose: 2 sprays Pantoprazole Sodium (Protonix -) 40 mg PO DAILY [facility] Last Admin: 09/09/17 09:10 Dose: 40 mg Prednisone (Deltasone -) 30 mg PO DAILY [facility] 234 [facility] Last Admin: 09/09/17 09:10 Dose: 30 mg Pregabalin (Lyrica -) 75 mg PO BID [facility] 234 [facility] Last Admin: 09/09/17 09:10 Dose: 75 mg Senna (Senna -) 1 tab PO [facility] Last Admin: 09/08/17 21:37 Dose: 1 tab Tiotropium [place] (Spiriva -) 1 puff IH DAILY [facility] 234 [facility]S [facility] Last Admin: 09/09/17 09:11 Dose: 1 puff - Objective Vital Signs: Vital Signs Temperature 98.2 F 09/09/17 15:00 Pulse Rate 97 H 09/09/17 15:00 Respiratory Rate 20 09/09/17 15:00 Blood Pressure 105/68 09/09/17 15:00 O2 Sat by Pulse Oximetry (%) 98 09/08/17 20:30 Constitutional: Yes: No Distress, Calm Cardiovascular: Yes: Regular Rate and Rhythm Respiratory: Yes: Regular, CTA Bilaterally, On Nasal O2 Gastrointestinal: Yes: Normal Bowel Sounds, Soft Musculoskeletal: Yes: WNL Extremities: Yes: WNL Neurological: Yes: Alert, Oriented Psychiatric: Yes: Alert, Oriented Labs: CBC, BMP 09/09/17 06:58 09/07/17 06:00 INR, PTT INR 1.12 (0.82-1.09) 09/06/17 15:00 Assessment/Plan Problem List - Problems (1) Rapid atrial fibrillation Code(s): I48.91 - UNSPECIFIED ATRIAL FIBRILLATION (2) Chronic diastolic CHF (congestive heart failure) Code(s): I50.32 - CHRONIC DIASTOLIC (CONGESTIVE) HEART FAILURE (3) DVT (deep venous thrombosis) Code(s): I82.409 - ACUTE EMBOLISM AND THOMBOS UNSP DEEP VN UNSP LOWER EXTREMITY Qualifiers: DVT location: lower extremity Laterality: left (4) Diabetes mellitus Code(s): E11.9 - TYPE 2 DIABETES MELLITUS WITHOUT COMPLICATIONS Qualifiers: Diabetes mellitus type: type 2 Diabetes mellitus complication status: without complication (5) Epistaxis Code(s): R04.0 - EPISTAXIS plan stable off of abx close watch rest continue as per the team and cardiology
--- NOTE | 2017-09-09 18:13 | PN ---
Progress Note, Physician - Current Medication List Current Medications: Active Medications Albuterol/Ipratropium (Duoneb -) 1 amp NEB Q4H PRN PRN Reason: SHORTNESS OF BREATH Last Admin: 09/09/17 07:54 Dose: 1 amp Apixaban (Eliquis -) 2.5 mg PO BID [facility] Last Admin: 09/09/17 11:48 Dose: 2.5 mg Diltiazem HCl (Cardizem -) 30 mg PO TID [facility] Last Admin: 09/09/17 14:04 Dose: 30 mg Insulin Aspart (Novolog Vial Sliding Scale -) 1 vial SQ [facility]; Protocol Last Admin: 09/09/17 16:28 Dose: 8 units Insulin Detemir (Levemir Vial) 50 units SQ [facility] Last Admin: 09/08/17 21:33 Dose: 50 units Lisinopril (Prinivil) 10 mg PO DAILY [facility] Last Admin: 09/09/17 09:10 Dose: 10 mg Metoclopramide HCl (Reglan -) 5 mg PO TID [facility] Last Admin: 09/09/17 14:04 Dose: 5 mg Montelukast Sodium (Singulair -) 10 mg PO [facility] Last Admin: 09/08/17 21:37 Dose: 10 mg Morphine Sulfate (Ms Contin -) 15 mg PO BID [facility] Last Admin: 09/09/17 09:10 Dose: 15 mg Oxymetazoline HCl (Afrin -) 2 spray NS BID PRN PRN Reason: NASAL CONGESTION Last Admin: 09/06/17 22:20 Dose: 2 sprays Pantoprazole Sodium (Protonix -) 40 mg PO DAILY [facility] Last Admin: 09/09/17 09:10 Dose: 40 mg Prednisone (Deltasone -) 30 mg PO DAILY [facility] Last Admin: 09/09/17 09:10 Dose: 30 mg Pregabalin (Lyrica -) 75 mg PO BID [facility] Last Admin: 09/09/17 09:10 Dose: 75 mg Senna (Senna -) 1 tab PO [facility] Last Admin: 09/08/17 21:37 Dose: 1 tab Tiotropium [place] (Spiriva -) 1 puff IH DAILY [facility] Last Admin: 09/09/17 09:11 Dose: 1 puff - Objective Vital Signs: Vital Signs Temperature 98.2 F 09/09/17 15:00 Pulse Rate 97 H 05/31/18 15:00 Respiratory Rate 20 09/09/17 15:00 Blood Pressure 105/68 09/09/17 15:00 O2 Sat by Pulse Oximetry (%) 98 09/08/17 20:30 Constitutional: Yes: No Distress HENT: Yes: Atraumatic Neck: Yes: Supple Cardiovascular: Yes: Regular Rate and Rhythm Respiratory: Yes: CTA Bilaterally Gastrointestinal: Yes: Normal Bowel Sounds Extremities: Yes: WNL Peripheral Pulses WNL: No Neurological: Yes: Alert, Oriented Labs: CBC, BMP 09/09/17 06:58 09/07/17 06:00 INR, PTT INR 1.12 (0.82-1.09) 09/06/17 15:00 Problem List - Problems (1) Rapid atrial fibrillation Code(s): I48.91 - UNSPECIFIED ATRIAL FIBRILLATION (2) Chronic diastolic CHF (congestive heart failure) Code(s): I50.32 - CHRONIC DIASTOLIC (CONGESTIVE) HEART FAILURE (3) DVT (deep venous thrombosis) Code(s): I82.409 - ACUTE EMBOLISM AND THOMBOS UNSP DEEP VN UNSP LOWER EXTREMITY Qualifiers: DVT location: lower extremity Laterality: left (4) Diabetes mellitus Code(s): E11.9 - TYPE 2 DIABETES MELLITUS WITHOUT COMPLICATIONS Qualifiers: Diabetes mellitus type: type 2 Diabetes mellitus complication status: without complication (5) Epistaxis Code(s): R04.0 - EPISTAXIS
[2017-09-09] MEDS: DOCUSATE SODIUM 100 MG CAPSULE (FP) PO SCH (22:06)
[2017-09-09] MEDS: MONTELUKAST NA 10 MG TABLET PO SCH (22:08)
[2017-09-09] MEDS: SENNOSIDES 8.6MG TABLET (FP) PO SCH (22:08)
[2017-09-09] MEDS: INSULIN (LEVEMIR) 100 UNITS/ML UNITS SQ SCH (22:16)
[2017-09-10 05:45] VITALS: BP 116/82; PULSE 122; TEMP 97.8
[2017-09-10] MEDS: INSULIN SLIDING SCALE (NOVOLOG) 1 VIAL SQ SCH ×2 (06:36→12:16)
[2017-09-10] MEDS: dilTIAZem HCL 30 MG TABLET (FP) PO SCH (06:44)
[2017-09-10] MEDS: METOCLOPRAMIDE HCL 10 MG TABLET (FP) PO SCH (06:44)
[2017-09-10 07:23] LABS: BASO % 0.2 % (0-2.0); EOS % 0.8 % (0-4.5); HEMATOCRIT 24.3 % (32.4-45.2); LYMPH % 18.8 % (8-40); MCH 28.6 pg (25.7-33.7); MCHC 32.8 g/dl (32.0-36.0); MEAN CELL VOLUME 87.1 fl (80-96); MEAN PLT VOLUME 7.5 fl (7.5-11.1); MONO % 5.3 % (3.8-10.2); NEUT % 74.9 % (42.8-82.8); PLATELET COUNT 270 K/MM3 (134-434); RBC 2.79 M/mm3 (3.60-5.2); RDW 16.2 % (11.6-15.6); WHITE BLOOD COUNT 11.1 K/mm3 (4.0-10.0)
[2017-09-10] MEDS: ALBUTEROL SO4 2.5/IPRATROPIUM 0.5 INH SOL 3 ML VIAL.NEB. NEB PRN (08:20)
--- NOTE | 2017-09-10 08:21 | PN ---
Progress Note, Physician Chief Complaint: Alert, no new complaints TELE: NSR, frequent APCs, Atrial tach No further bleeding - Current Medication List Current Medications: Active Medications Albuterol/Ipratropium (Duoneb -) 1 amp NEB Q4H PRN PRN Reason: SHORTNESS OF BREATH Last Admin: 09/09/17 20:54 Dose: 1 amp Apixaban (Eliquis -) 2.5 mg PO BID [facility] Last Admin: 09/09/17 22:06 Dose: 2.5 mg Diltiazem HCl (Cardizem -) 30 mg PO TID [facility] Last Admin: 09/10/17 06:44 Dose: 30 mg Docusate Sodium (Colace -) 100 mg PO DAILY [facility] Last Admin: 09/09/17 22:06 Dose: 100 mg Insulin Aspart (Novolog Vial Sliding Scale -) 1 vial SQ [facility]; Protocol Last Admin: 09/10/17 06:36 Dose: Not Given Insulin Detemir (Levemir Vial) 50 units SQ [facility] Last Admin: 09/09/17 22:16 Dose: 50 units Lisinopril (Prinivil) 10 mg PO DAILY [facility] Last Admin: 09/09/17 09:10 Dose: 10 mg Metoclopramide HCl (Reglan -) 5 mg PO TID [facility] Last Admin: 09/10/17 06:44 Dose: 5 mg Montelukast Sodium (Singulair -) 10 mg PO [facility] Last Admin: 09/09/17 22:08 Dose: 10 mg Morphine Sulfate (Ms Contin -) 15 mg PO BID [facility] Last Admin: 09/09/17 22:06 Dose: 15 mg Oxymetazoline HCl (Afrin -) 2 spray NS BID PRN PRN Reason: NASAL CONGESTION Last Admin: 09/06/17 22:20 Dose: 2 sprays Pantoprazole Sodium (Protonix -) 40 mg PO DAILY [facility] Last Admin: 09/09/17 09:10 Dose: 40 mg Prednisone (Deltasone -) 30 mg PO DAILY [facility] Last Admin: 09/09/17 09:10 Dose: 30 mg Pregabalin (Lyrica -) 75 mg PO BID [facility] Last Admin: 09/09/17 22:06 Dose: 75 mg Senna (Senna -) 1 tab PO [facility] Last Admin: 09/09/17 22:08 Dose: 1 tab Tiotropium [place] (Spiriva -) 1 puff IH DAILY [facility] Last Admin: 09/09/17 09:11 Dose: 1 puff - Objective Vital Signs: Vital Signs Temperature 97.8 F 09/10/17 05:44 Pulse Rate 122 H 09/10/17 05:44 Respiratory Rate 20 09/10/17 05:44 Blood Pressure 116/82 09/10/17 05:44 O2 Sat by Pulse Oximetry (%) 95 09/10/17 04:07 Constitutional: Yes: Calm Eyes: Yes: Conjunctiva Clear Cardiovascular: Yes: Regular Rate and Rhythm Respiratory: Yes: Rhonchi Gastrointestinal: Yes: Soft, Abdomen, Obese Edema: No Neurological: Yes: Alert, Oriented ...Motor Strength: WNL Labs: CBC, BMP 09/10/17 06:28 09/07/17 06:00 INR, PTT INR 1.12 (0.82-1.09) 09/06/17 15:00 Laboratory Tests 09/02/17 09/08/17 09/08/17 06:00 06:45 06:45 WBC 11.4 H D Hgb 8.5 L Plt Count 252 D-Dimer 462 Sodium 139 Potassium 4.5 Creatinine 0.6 09/09/17 09/10/17 06:58 06:28 WBC 11.7 H 11.1 H Hgb 8.1 L 8.0 L Plt Count 262 270 D-Dimer Sodium Potassium Creatinine - ....Imaging EKG: Image Reviewed Problem List - Problems (1) Epistaxis Code(s): R04.0 - EPISTAXIS (2) DVT (deep venous thrombosis) Code(s): I82.409 - ACUTE EMBOLISM AND THOMBOS UNSP DEEP VN UNSP LOWER EXTREMITY Qualifiers: DVT location: lower extremity Laterality: left (3) Multifocal atrial tachycardia Code(s): I47.1 - SUPRAVENTRICULAR TACHYCARDIA (4) Sarcoidosis Code(s): D86.9 - SARCOIDOSIS, UNSPECIFIED (5) ICD (implantable cardioverter-defibrillator) in place Code(s): Z95.810 - PRESENCE OF AUTOMATIC (IMPLANTABLE) CARDIAC DEFIBRILLATOR (6) Chronic diastolic CHF (congestive heart failure) Code(s): I50.32 - CHRONIC DIASTOLIC (CONGESTIVE) HEART FAILURE (7) Interstitial lung disease Code(s): J84.9 - INTERSTITIAL PULMONARY DISEASE, UNSPECIFIED (8) Diabetes mellitus Code(s): E11.9 - TYPE 2 DIABETES MELLITUS WITHOUT COMPLICATIONS Qualifiers: Diabetes mellitus type: type 2 Diabetes mellitus complication status: without complication Assessment/Plan IMP: Complicated, chronically ill, sedentary patient with long standing Sarcoidosis with pulmonary and cardiac involvement s/p ICD for VT and syncope several years ago; on long standing NOAC therapy for LLE DVT diagnosed in 12/2016, which appears to have been "unprovoked"- although her sedentary status is essentially a chronic risk factor. Admitted with severe epistaxis requiring ENT electrocautery, now resolved. REC: 1. Appreciate Heme input, D- dimer negative. Most recent US with no DVT. No further bleeding, Hb stable. Eliquis resumed at dose suggested by Heme. 2. Periods of SVT- likely MAT/AT due to chronic lung disease and sarcoid cardiac involvement. Short acting Cardizem 30mg q8H No further cardiac work up planned at this time
[2017-09-10 09:47] LABS: PLATELET ESTIMATE NORMAL; TEAR DROP CELLS 1+
[2017-09-10] MEDS: TIOTROPIUM BROMIDE 18 MCG CAPSULES IH SCH (09:55)
[2017-09-10] MEDS: PREGABALIN 75 MG CAPSULE PO SCH (09:55)
[2017-09-10] MEDS: LISINOPRIL 10 MG TABLET (FP) PO SCH (09:56)
[2017-09-10] MEDS: morphine SO4 SUSTAINED ACTING 15 MG TABLET.SA PO SCH (09:56)
[2017-09-10] MEDS: predniSONE 10 MG TABLET (UD) PO SCH (09:56)
[2017-09-10] MEDS: DOCUSATE SODIUM 100 MG CAPSULE (FP) PO SCH (09:56)
[2017-09-10] MEDS: PANTOPRAZOLE 40 MG TABLET (FP) PO SCH (09:56)
[2017-09-10] MEDS: APIXABAN 2.5 MG TABLET PO SCH (09:57)
--- NOTE | 2017-09-10 19:06 | DS ---
Physical Examination Vital Signs: Vital Signs Temperature 97.8 F 09/10/17 05:44 Pulse Rate 122 H 09/10/17 05:44 Respiratory Rate 20 09/10/17 08:00 Blood Pressure 116/82 09/10/17 05:44 O2 Sat by Pulse Oximetry (%) 96 09/10/17 08:00 Labs: CBC, BMP 09/10/17 06:28 09/07/17 06:00 Discharge Summary Reason For Visit: RAPID ATRIAL FIBRILLATION Condition: Stable - Instructions Referrals: Ace Sorensen [Primary Care Provider] - Disposition: VNS/HOME HEALTH CARE - Home Medications Comprehensive Discharge Medication List: Ambulatory Orders Montelukast Na [Singulair -] 10 mg PO HS 05/02/17 Pregabalin [Lyrica -] 75 mg PO BID 05/02/17 Sennosides [Senna -] 1 tab PO HS 05/02/17 Lisinopril [Prinivil] 10 mg PO DAILY tablet 05/10/17 Morphine *Sr* [Ms Contin -] 15 mg PO BID 7 Days #14 tablet.sa MDD 30 05/10/17 Metoclopramide HCl [Reglan] 5 mg PO TID 08/29/17 Nitroglycerin Sublingual [Nitrostat -] 0.4 mg .ROUTE ASDIR PRN 08/29/17 Nystatin Oral Suspension - [Nystatin Oral Susp 355149 Units/5 ML -] 100,000 units PO Q6H 08/29/17 Omeprazole 40 mg PO HS 08/29/17 Tiotropium [place] [Spiriva Respimat] 2.5 mcg IH DAILY 08/29/17 Insulin (Levemir) [Levemir Vial] 50 units SQ HS ml 09/04/17 Insulin Sliding Scale [Novolog Vial Sliding Scale -] 0 units SQ [facility] 09/06/17 Prednisone [Deltasone] 30 mg PO DAILY 09/06/17 Sodium Chloride Nasal [place] [[place] Nasal [place] -] 2 spray NS BID 09/06/17 Apixaban [Eliquis -] 2.5 mg PO BID tablet 09/09/17 Diltiazem [Cardizem -] 30 mg PO TID #90 tablet 09/09/17 predniSONE [Deltasone -] 30 mg PO DAILY tablet 09/09/17 dc
--- NOTE | 2017-09-12 22:35 | EKG ---
Test Reason : Blood Pressure : / mmHG Vent. Rate : 112 BPM Atrial Rate : 112 BPM P-R Int : 126 ms QRS Dur : 068 ms QT Int : 318 ms P-R-T Axes : 032 006 036 degrees QTc Int : 434 ms SINUS TACHYCARDIA WITH PREMATURE SUPRAVENTRICULAR COMPLEXES OTHERWISE NORMAL ECG WHEN COMPARED WITH ECG OF 06-SEP-2017 19:18, NO SIGNIFICANT CHANGE WAS FOUND Confirmed by ADELA AHMADI MD ([id number]) on 09/12/2017 10:35:30 PM Referred By: Confirmed By:ADELA AHMADI MD
== END 2017-09-10 13:16 | disposition home health service (06) | DRG 180 ==
LOC: JER 10:03 → JERBED 17:11 → OBSVTOIN 20:56 → J4W 21:45
PROVIDERS: ADMIT Internal Medicine; ATTEND Internal Medicine
PROC: 0W3Q7ZZ Control Bleeding in Respiratory Tract, Via Natural or Artificial Opening (ICD-10-PCS; principal; 2017-09-06)
DX: I47.1 Supraventricular tachycardia (principal); Z99.81 Dependence on supplemental oxygen; J84.9 Interstitial pulmonary disease, unspecified; L51.1 Stevens-Johnson syndrome; I11.0 Hypertensive heart disease with heart failure; I50.32 Chronic diastolic (congestive) heart failure; D86.89 Sarcoidosis of other sites; R04.0 Epistaxis; Z79.01 Long term (current) use of anticoagulants; J44.9 Chronic obstructive pulmonary disease, unspecified; E78.5 Hyperlipidemia, unspecified; E11.9 Type 2 diabetes mellitus without complications; J34.89 Other specified disorders of nose and nasal sinuses; Z79.4 Long term (current) use of insulin; Z86.718 Personal history of other venous thrombosis and embolism; Z95.810 Presence of automatic (implantable) cardiac defibrillator; Z99.3 Dependence on wheelchair; G47.33 Obstructive sleep apnea (adult) (pediatric)
CPT/HCPCS: 36415; 80053; 82607; 82728; 82746; 82784; 82962; 83540; 83550; 84155; 84165; 85025; 85027; 85379; 85610; 85730; 86334; 93005; 93010; 93225; 93226; 94640; 99283-25; G0378; J7620

== ENCOUNTER 2017-09-16 15:42 | Inpatient (IN) | payer OTHER ==
[2017-09-16 15:51] VITALS: BMI 34.5
--- NOTE | 2017-09-16 16:05 | PDOC ---
History of Present Illness - General History Source: Patient, Family Exam Limitations: No Limitations - History of Present Illness Initial Comments: 09/16/17 19:18 The patient is a 62 year old female with a significant past medical history of afib, scaradosis, CHF, GERD, hypertension, hyperlipidemia, hepatitis C, anemia, diabetes, urinary retention, and asthma who presents to the emergency department for evaluation of chest pain. The patient reports moderate chest pain and increasing shortness of breath beginning last night. She also reports associated bilateral lower extremity swelling over the last few days. The patient reports associated symptoms of chills, non-productive cough, and orthopnea. She states she was told to discontinue Lasix after her nose bleed on 09/06/17. The patient states she was advised to take Eliquis, but has run out of her prescription. Of note, the patient is not able ambulate. The patient headache, dizziness, fevers, chills, nausea, vomiting, diarrhea, and constipation. Denies dysuria, frequency, urgency, and hematuria. Allergies: As per nursing notes. Past surgical history: PPMD, Back Social history: No reported cigarette, alcohol, or drug use. PCP: Dr. Whit Fuchs ([phone]) <Randa Tidwell - Last Filed: 09/16/17 19:18> <Ryann Hunter - Last Filed: 09/17/17 21:02> - General Chief Complaint: Chest Pain Stated Complaint: CHEST PAIN Time Seen by Provider: 09/16/17 16:05 Past History <Randa Tidwell - Last Filed: 09/16/17 19:18> - Past Medical History Anemia: Yes Asthma: Yes Cancer: No Cardiac Disorders: Yes (afib) CVA: No COPD: Yes (scaradosis) CHF: Yes Dementia: No Diabetes: Yes GI Disorders: Yes (acid reflux, gastric paresis, GERD) Disorders: Yes (Urinary retention) HTN: Yes Hypercholesterolemia: Yes Liver Disease: Yes (hep c) Seizures: No Thyroid Disease: No - Surgical History Abdominal Surgery: Yes Appendectomy: No Cardiac Surgery: Yes (ppmd) Cholecystectomy: No Gastric Stapling: No Lung Surgery: No Neurologic Surgery: Yes (BACK SX WITH LLE NERVE DAMAGE) Orthopedic Surgery: Yes (laminectomy x 2 in 2009 in [facility]) - Immunization History Immunization Up to Date: Yes - Suicide/Smoking/Psychosocial Hx Smoking Status: No Smoking History: Unknown if ever smoked Have you smoked in the past 12 months: No Number of Cigarettes Smoked Daily: 0 Cigars Per Day: 0 Hx Alcohol Use: No Drug/Substance Use Hx: No Substance Use Type: None Hx Substance Use Treatment: No <Ryann Hunter - Last Filed: 09/17/17 21:02> - Past Medical History Allergies/Adverse Reactions: Allergies Allergy/AdvReac Type Severity Reaction Status Date / Time medroxyprogesterone acetate Allergy Severe stepehns Verified 09/16/17 15:49 [From Depo-Provera] josé syndrome amoxicillin [From Augmentin] Allergy Verified 09/16/17 15:49 amoxicillin trihydrate Allergy Verified 09/16/17 15:49 [From Augmentin] aspirin Allergy Verified 09/16/17 15:49 azithromycin [From Zithromax] Allergy Dewey Verified 09/16/17 15:49 José syndrome bacitracin Allergy Verified 09/16/17 15:49 ciprofloxacin [From Cipro] Allergy Verified 09/16/17 15:49 ciprofloxacin HCl Allergy Verified 09/16/17 15:49 [From Cipro] clavulanic acid Allergy Verified 09/16/17 15:49 [From Augmentin] codeine [Codeine] Allergy Verified 09/16/17 15:49 Iodinated Contrast- Oral and Allergy Verified 09/16/17 15:49 IV Dye [IV Dye, Iodine Containing Contrast ] ketorolac [From Toradol] Allergy Verified 09/16/17 15:49 ketorolac tromethamine Allergy Verified 09/16/17 15:49 [From Toradol] levofloxacin [From Levaquin] Allergy Verified 09/16/17 15:49 metronidazole [From Flagyl] Allergy Verified 09/16/17 15:49 nalbuphine [From Nubain] Allergy Verified 09/16/17 15:49 nalbuphine HCl [From Nubain] Allergy CYANOSIS Verified 09/16/17 15:49 potassium clavulanate Allergy Verified 09/16/17 15:49 [From Augmentin] Shellfish Allergy Verified 09/16/17 15:49 sulfamethoxazole Allergy Verified 09/16/17 15:49 [From Bactrim] trimethoprim [From Bactrim] Allergy Verified 09/16/17 15:49 ivp dye Allergy Severe Swelling Uncoded 09/16/17 15:49 Home Medications: Ambulatory Orders Montelukast Na [Singulair -] 10 mg PO HS 05/02/17 Pregabalin [Lyrica -] 75 mg PO BID 05/02/17 Sennosides [Senna -] 1 tab PO HS 05/02/17 Lisinopril [Prinivil] 10 mg PO DAILY tablet 05/10/17 Morphine *Sr* [Ms Contin -] 15 mg PO BID 7 Days #14 tablet.sa MDD 30 05/10/17 Metoclopramide HCl [Reglan] 5 mg PO TID 08/29/17 Nitroglycerin Sublingual [Nitrostat -] 0.4 mg .ROUTE ASDIR PRN 08/29/17 Nystatin Oral Suspension - [Nystatin Oral Susp 965195 Units/5 ML -] 100,000 units PO Q6H 08/29/17 Omeprazole 40 mg PO HS 08/29/17 Tiotropium Leon [Spiriva Respimat] 2.5 mcg IH DAILY 08/29/17 Insulin (Levemir) [Levemir Vial] 50 units SQ HS ml 09/04/17 Insulin Sliding Scale [Novolog Vial Sliding Scale -] 0 units SQ ACHS 09/06/17 Prednisone [Deltasone] 30 mg PO DAILY 09/06/17 Sodium Chloride Nasal [place] [[place] Nasal [place] -] 2 spray NS BID 09/06/17 Apixaban [Eliquis -] 2.5 mg PO BID tablet 09/09/17 Diltiazem [Cardizem -] 30 mg PO TID #90 tablet 09/09/17 predniSONE [Deltasone -] 30 mg PO DAILY tablet 09/09/17 Review of Systems - Review of Systems Able to Perform ROS?: Yes Comments:: GENERAL/CONSTITUTIONAL: (+)Chills. No fever. No weakness. HEAD, EYES, EARS, NOSE AND THROAT: No change in vision. No ear pain or discharge. No sore throat. CARDIOVASCULAR: (+)chest pain. (+) shortness of breath. RESPIRATORY: (+)Orthopnea. (+)Non-productive cough. No wheezing, or hemoptysis. GASTROINTESTINAL: No nausea, vomiting, diarrhea or constipation. GENITOURINARY: No dysuria, frequency, or change in urination. MUSCULOSKELETAL: (+)Bilateral extremity swelling. No joint or muscle pain. No neck or back pain. SKIN: No rash NEUROLOGIC: No headache, vertigo, loss of consciousness, or change in strength/ sensation. ENDOCRINE: No increased thirst. No abnormal weight change. HEMATOLOGIC/LYMPHATIC: No anemia, easy bleeding, or history of blood clots. ALLERGIC/IMMUNOLOGIC: No hives or skin allergy. <Randa Tidwell - Last Filed: 09/16/17 19:18> *Physical Exam - Vital Signs Last Vital Signs Temp Pulse Resp BP Pulse Ox 98.1 F 83 18 105/64 98 09/16/17 15:50 09/16/17 19:02 09/16/17 19:02 09/16/17 19:02 09/16/17 19:02 - Physical Exam Comments: GENERAL: Awake, alert, and fully oriented, in no acute distress HEAD: No signs of trauma EYES: PERRLA, EOMI, sclera anicteric, conjunctiva clear ENT: Auricles normal inspection, hearing grossly normal, nares patent. NECK: Normal ROM, supple. LUNGS: (+)Mild conversational dyspnea (+)Crackles about [facility] up bilaterally. HEART: Regular rate and rhythm, normal S1 and S2, no murmurs, rubs or gallops ABDOMEN: (+)Mild diffuse abdominal tenderness. No guarding, no rebound. No masses. EXTREMITIES: (+)2+ pitting edema to knees bilaterally, normal range of motion. NEUROLOGICAL: Cranial nerves II through XII grossly intact. Normal speech. SKIN: Warm, Dry, normal turgor, no rashes or lesions noted. <Randa Tidwell - Last Filed: 09/16/17 19:18> - Vital Signs Last Vital Signs Temp Pulse Resp BP Pulse Ox 98.1 F 90 18 126/78 100 09/16/17 15:50 09/16/17 15:50 09/16/17 15:50 09/16/17 15:50 09/16/17 15:50 <Ryann Hunter - Last Filed: 09/17/17 21:02> ED Treatment Course - LABORATORY CBC & Chemistry Diagram: 09/16/17 18:20 09/16/17 16:43 - ADDITIONAL ORDERS Additional order review: Laboratory Results 09/16/17 16:43 Sodium Cancelled Potassium Cancelled Chloride Cancelled Carbon Dioxide Cancelled Anion Gap Cancelled BUN Cancelled Creatinine Cancelled Creat Clearance w eGFR Cancelled Random Glucose Cancelled Calcium Cancelled Total Bilirubin Cancelled AST Cancelled ALT Cancelled Alkaline Phosphatase Cancelled Creatine Kinase Cancelled Troponin I Cancelled B-Natriuretic Peptide Cancelled Total Protein Cancelled Albumin Cancelled 09/16/17 18:20 RBC 3.05 L MCV 86.6 MCHC 32.3 RDW 16.6 H MPV 7.0 L Neutrophils % 91.5 H D Lymphocytes % 7.0 L D Monocytes % 1.4 L Eosinophils % 0.0 D Basophils % 0.1 <Randa Tidwell - Last Filed: 09/16/17 19:18> - LABORATORY CBC & Chemistry Diagram: 09/17/17 07:00 09/17/17 07:05 <Ryann Hunter - Last Filed: 09/17/17 21:02> Medical Decision Making - Medical Decision Making 09/16/17 18:47 Pt presents to ED complainiong of worsening chest pain or shortness of breath that have been worsening over the last two days. + worsening edema. Reports that she was taken off her lasix for unknown reasons. Differential includes CHF exacerbation, ACS, COPD exacerbation, PNA. Will check labs and cardiac enzymes. CXR shows evidence of CHF. Will likely admit for CHF exacerbation. <Ryann Hunter - Last Filed: 09/17/17 21:02> *DC/Admit/Observation/Transfer - Attestations Scribe Attestion: Documentation prepared by Randa Tidwell, acting as medical insurance verifier for Ryann Hunter MD. <Randa Tidwell - Last Filed: 09/16/17 19:18> - Discharge Dispostion Decision to Admit order: No <Ryann Hunter - Last Filed: 09/17/17 21:02> Diagnosis at time of Disposition: Shortness of breath CHF (congestive heart failure) Qualifiers: Heart failure type: unspecified Heart failure chronicity: unspecified Qualified Code(s): I50.9 - Heart failure, unspecified - Discharge Dispostion Condition at time of disposition: Good
[2017-09-16 18:30] LABS: BASO % 0.1 % (0-2.0); HEMATOCRIT 26.4 % (32.4-45.2); HEMOGLOBIN 8.5 GM/dL (10.7-15.3); MCHC 32.3 g/dl (32.0-36.0); MEAN CELL VOLUME 86.6 fl (80-96); MONO % 1.4 % (3.8-10.2); NEUT % 91.5 % (42.8-82.8); PLATELET COUNT 280 K/MM3 (134-434); RBC 3.05 M/mm3 (3.60-5.2); RDW 16.6 % (11.6-15.6); WHITE BLOOD COUNT 11.3 K/mm3 (4.0-10.0)
[2017-09-16 19:20] LABS: ALBUMIN 2.7 g/dl (3.4-5.0); ANION GAP 5 (8-16); BILIRUBIN,TOTAL 0.2 mg/dL (0.2-1.0); BLOOD UREA NITROGEN 18 mg/dL (7-18); CALCIUM 8.4 mg/dL (8.5-10.1); CHLORIDE 101 mmol/L (98-107); CO2 33 mmol/L (21-32); CREATININE 0.5 mg/dL (0.55-1.02); GLUCOSE,RANDOM 170 mg/dL (74-106); POTASSIUM 4.6 mmol/L (3.5-5.1); SGOT/AST 20 U/L (15-37); SGPT/ALT 24 U/L (12-78); SODIUM 139 mmol/L (136-145); TOT PROT 6.5 g/dl (6.4-8.2)
[2017-09-16 19:23] LABS: ALK PHOS 95 U/L (45-117); N-TERMINAL BNP 69.62 pg/ml (5-125)
[2017-09-16] MEDS ORDERED: FUROSEMIDE 100 MG/10 ML INJECTABLE VIAL IVPB ONE (20:13)
[2017-09-16] MEDS ORDERED: FUROSEMIDE 40 MG/4 ML INJECTABLE VIAL ONE (20:18)
[2017-09-16] MEDS ORDERED: methylPREDNISolone NA SUCC 125 MG/2 ML VIAL IVPB ONE (20:31)
--- NOTE | 2017-09-16 20:35 | PDOC ---
*Physical Exam - Vital Signs Last Vital Signs Temp Pulse Resp BP Pulse Ox 98.1 F 87 24 101/63 100 09/16/17 15:50 09/16/17 19:33 09/16/17 19:33 09/16/17 19:33 09/16/17 19:33 Heart Score/ECG Review #1 ECG reviewed & interpreted by me at: 20:25 09/16/17 20:34 NSR 79, no std/quynh, normal axis, normal intervals, QTC 405 msec ED Treatment Course - LABORATORY CBC & Chemistry Diagram: 09/16/17 18:20 09/16/17 18:37 - ADDITIONAL ORDERS Additional order review: Laboratory Results 09/16/17 09/16/17 18:37 16:43 Sodium 139 Cancelled Potassium 4.6 Cancelled Chloride 101 Cancelled Carbon Dioxide 33 H Cancelled Anion Gap 5 L Cancelled BUN 18 Cancelled Creatinine 0.5 L Cancelled Creat Clearance w eGFR > 60 Cancelled Random Glucose 170 H Cancelled Calcium 8.4 L Cancelled Total Bilirubin 0.2 D Cancelled AST 20 Cancelled ALT 24 Cancelled Alkaline Phosphatase 95 Cancelled Creatine Kinase 24 L Cancelled Troponin I < 0.02 Cancelled B-Natriuretic Peptide 69.62 Cancelled Total Protein 6.5 Cancelled Albumin 2.7 L Cancelled 09/16/17 18:20 RBC 3.05 L MCV 86.6 MCHC 32.3 RDW 16.6 H MPV 7.0 L Neutrophils % 91.5 H D Lymphocytes % 7.0 L D Monocytes % 1.4 L Eosinophils % 0.0 D Basophils % 0.1 - Medications Given in the ED: ED Medications Discontinued Medications Generic Name Dose Route Start Last Admin Trade Name Freq PRN Reason Stop Dose Admin Furosemide 40 mg 09/16/17 20:13 09/16/17 20:17 Lasix Injection - IVPB 09/16/17 20:14 40 mg ONCE ONE Administration Medical Decision Making - Medical Decision Making 09/16/17 20:32 Sign-out received from outgoing Emergency Physician Dr. Hunter Pt interviewed and examined Ancillary studies reviewed Case discussed in detail with oncoming Emergency Physician including history, physical exam and ancillary studies. CBC, BMP 09/16/17 18:20 09/16/17 18:37 CMP Sodium 139 mmol/L (136-145) 09/16/17 18:37 Potassium 4.6 mmol/L (3.5-5.1) 09/16/17 18:37 Chloride 101 mmol/L (98-107) 09/16/17 18:37 Carbon Dioxide 33 mmol/L (21-32) H 09/16/17 18:37 Anion Gap 5 (8-16) L 09/16/17 18:37 BUN 18 mg/dL (7-18) 09/16/17 18:37 Creatinine 0.5 mg/dL (0.55-1.02) L 09/16/17 18:37 Creat Clearance w eGFR > 60 (>60) 09/16/17 18:37 Random Glucose 170 mg/dL (74-106) H 09/16/17 18:37 Calcium 8.4 mg/dL (8.5-10.1) L 09/16/17 18:37 Total Bilirubin 0.2 mg/dL (0.2-1.0) D 09/16/17 18:37 AST 20 U/L (15-37) 09/16/17 18:37 ALT 24 U/L (12-78) 09/16/17 18:37 Alkaline Phosphatase 95 U/L (45-117) 09/16/17 18:37 Creatine Kinase 24 IU/L (26-192) L 09/16/17 18:37 Troponin I < 0.02 ng/ml (0.00-0.05) 09/16/17 18:37 B-Natriuretic Peptide 69.62 pg/ml (5-125) 09/16/17 18:37 Total Protein 6.5 g/dl (6.4-8.2) 09/16/17 18:37 Albumin 2.7 g/dl (3.4-5.0) L 09/16/17 18:37 Chest xray: CHF Pt given 40 mg IV lasix Case discussed with Dr. Lehman. Pt is also supposed to be on chronic steroids. Dr. Lehman requests IV solu-medrol as well. [id number] [address] Lockhart and Dr. Rivera for consultation. Case accepted to Dr. Lehman. Case discussed in detail with admitting physician including history, physical exam and ancillary studies. Admitting physician has assumed care for the patient, will follow all pending diagnostics and will complete the evaluation and treatment. *DC/Admit/Observation/Transfer Diagnosis at time of Disposition: CHF (congestive heart failure) Qualifiers: Heart failure type: unspecified Heart failure chronicity: unspecified Qualified Code(s): I50.9 - Heart failure, unspecified - Discharge Dispostion Condition at time of disposition: Stable Decision to Admit order: Yes - Referrals Referrals: Whit Fuchs MD [Primary Care Provider] - - Patient Instructions - Post Discharge Activity
[2017-09-16] MEDS ORDERED: methylPREDNISolone NA SUCC 40 MG/1 ML VIAL ONE (20:45)
[2017-09-16 20:49] LABS: ANISOCYTOSIS 1+; MACROCYTOSIS 1+
[2017-09-16 20:50] LABS: PLATELET ESTIMATE ADEQUATE
--- NOTE | 2017-09-16 22:40 | HP ---
Admitting History and Physical - Admission Chief Complaint: dyspnea History of Present Illness: The patient is a 62 year old female with a significant past medical history of afib, scaradosis, CHF, GERD, hypertension, hyperlipidemia, hepatitis C, anemia, diabetes, urinary retention, and asthma who presents to the emergency department for evaluation of chest pain. The patient reports moderate chest pain and increasing shortness of breath beginning last night. She also reports associated bilateral lower extremity swelling over the last few days. The patient reports associated symptoms of chills, non-productive cough, and orthopnea. She states she was told to discontinue Lasix after her nose bleed on 09/06/17. The patient states she was advised to take Eliquis, but has run out of her prescription. Of note, the patient is not able ambulate. The patient headache, dizziness, fevers, chills, nausea, vomiting, diarrhea, and constipation. Denies dysuria, frequency, urgency, and hematuria. History Source: Patient, Medical Record Limitations to Obtaining History: Physical Impairment, Poor Historian - Past Medical History CLASS A [employer]: Yes: Dementia Cardiovascular: Yes: Pulmonary Hypertension, Deep Vein Thrombosis, CHF, HTN, Other Pulmonary: Yes: Asthma, COPD, Previously Intubated, Sleep Apnea, Pulmonary Fibrosis, O2 Dependent, Other Gastrointestinal: Yes: GERD, Other Hepatobiliary: Yes: Hepatitis C Reproductive: Yes: Postmenopausal Heme/Onc: Yes: Anemia Infectious Disease: Yes: Other Musculoskeletal: Yes: Chronic low back pain Rheumatology: Yes: Sarcoidosis (cardiac and pulmonary) Endocrine: Yes: Diabetes Mellitus - Past Surgical History Past Surgical History: Yes: Laminectomy, AICD, Permanent Pacemaker - Smoking History Smoking history: Unknown if ever smoked Have you smoked in the past 12 months: No Aproximately how many cigarettes per day: 0 - Alcohol/Substance Use Hx Alcohol Use: No - Social History ADL: Support Services History of Recent Travel: No Home Medications - Allergies Allergies/Adverse Reactions: Allergies Allergy/AdvReac Type Severity Reaction Status Date / Time medroxyprogesterone acetate Allergy Severe stepehns Verified 09/16/17 15:49 [From Depo-Provera] josé syndrome amoxicillin [From Augmentin] Allergy Verified 09/16/17 15:49 amoxicillin trihydrate Allergy Verified 09/16/17 15:49 [From Augmentin] aspirin Allergy Verified 09/16/17 15:49 azithromycin [From Zithromax] Allergy Dewey Verified 09/16/17 15:49 José syndrome bacitracin Allergy Verified 09/16/17 15:49 ciprofloxacin [From Cipro] Allergy Verified 09/16/17 15:49 ciprofloxacin HCl Allergy Verified 09/16/17 15:49 [From Cipro] clavulanic acid Allergy Verified 09/16/17 15:49 [From Augmentin] codeine [Codeine] Allergy Verified 09/16/17 15:49 Iodinated Contrast- Oral and Allergy Verified 09/16/17 15:49 IV Dye [IV Dye, Iodine Containing Contrast ] ketorolac [From Toradol] Allergy Verified 09/16/17 15:49 ketorolac tromethamine Allergy Verified 09/16/17 15:49 [From Toradol] levofloxacin [From Levaquin] Allergy Verified 09/16/17 15:49 metronidazole [From Flagyl] Allergy Verified 09/16/17 15:49 nalbuphine [From Nubain] Allergy Verified 09/16/17 15:49 nalbuphine HCl [From Nubain] Allergy CYANOSIS Verified 09/16/17 15:49 potassium clavulanate Allergy Verified 09/16/17 15:49 [From Augmentin] Shellfish Allergy Verified 09/16/17 15:49 sulfamethoxazole Allergy Verified 09/16/17 15:49 [From Bactrim] trimethoprim [From Bactrim] Allergy Verified 09/16/17 15:49 ivp dye Allergy Severe Swelling Uncoded 09/16/17 15:49 - Home Medications Home Medications: Ambulatory Orders Montelukast Na [Singulair -] 10 mg PO HS 05/02/17 Pregabalin [Lyrica -] 75 mg PO BID 05/02/17 Sennosides [Senna -] 1 tab PO HS 05/02/17 Lisinopril [Prinivil] 10 mg PO DAILY tablet 05/10/17 Morphine *Sr* [Ms Contin -] 15 mg PO BID 7 Days #14 tablet.sa MDD 30 05/10/17 Metoclopramide HCl [Reglan] 5 mg PO TID 08/29/17 Nitroglycerin Sublingual [Nitrostat -] 0.4 mg .ROUTE ASDIR PRN 08/29/17 Nystatin Oral Suspension - [Nystatin Oral Susp 295004 Units/5 ML -] 100,000 units PO Q6H 08/29/17 Omeprazole 40 mg PO HS 08/29/17 Tiotropium Tram [Spiriva Respimat] 2.5 mcg IH DAILY 08/29/17 Insulin (Levemir) [Levemir Vial] 50 units SQ HS ml 09/04/17 Insulin Sliding Scale [Novolog Vial Sliding Scale -] 0 units SQ ACHS 09/06/17 Prednisone [Deltasone] 30 mg PO DAILY 09/06/17 Sodium Chloride Nasal [place] [[place] Nasal [place] -] 2 spray NS BID 09/06/17 Apixaban [Eliquis -] 2.5 mg PO BID tablet 09/09/17 Diltiazem [Cardizem -] 30 mg PO TID #90 tablet 09/09/17 predniSONE [Deltasone -] 30 mg PO DAILY tablet 09/09/17 Family Disease History - Family Disease History Family Disease History: Other: Mother (3 CVAs, the first in her 60s) Review of Systems - Review of Systems Constitutional: reports: Chills, Malaise, Weakness. denies: Fever Eyes: reports: No Symptoms HENT: denies: Difficult Swallowing, Ear Discharge, Epistaxis Neck: reports: No Symptoms Cardiovascular: reports: Edema, Shortness of Breath Respiratory: reports: SOB, Other (sitting up in stretcher) Gastrointestinal: reports: No Symptoms Genitourinary: reports: No Symptoms Breasts: reports: No Symptoms Reported Musculoskeletal: reports: Back Pain, Decreased ROM (lower ext), Joint Pain, Muscle Weakness Integumentary: reports: Other (decibiti sacral) Neurological: reports: Parasthesia, Pre-Existing Deficit Endocrine: reports: No Symptoms Hematology/Lymphatic: reports: Other (hx of epistaxis required recent admission eliquis decreased to 2.5 mg bid) Psychiatric: reports: Depression Physical Examination Vital Signs: Vital Signs Temperature 98.1 F 09/16/17 15:50 Pulse Rate 87 09/16/17 19:33 Respiratory Rate 24 09/16/17 19:33 Blood Pressure 101/63 09/16/17 19:33 O2 Sat by Pulse Oximetry (%) 100 09/16/17 19:33 Findings/Remarks: sitting up in stretcher O2 in place / apprears comfortable + chills during exam Constitutional: Yes: Well Nourished, Calm, Mild Distress, Obese Eyes: Yes: Conjunctiva Clear, EOM Intact HENT: Yes: Atraumatic, Normocephalic Neck: Yes: Supple, Trachea Midline Cardiovascular: Yes: Pulse Irregular Respiratory: Yes: Rhonchi (fine rhonchi bilat -- at baseline), Wheezes ( occasional wheezing exp). No: Stridor Gastrointestinal: Yes: Normal Bowel Sounds, Soft Musculoskeletal: Yes: Back Pain Edema: Yes Edema: LLE: 1+, RLE: 1+ Peripheral Pulses WNL: Yes Integumentary: Yes: Other (decubiti) Neurological: Yes: Alert, Oriented, Pre-Existing Deficit, Other (unable to walk) Psychiatric: Yes: Alert, Oriented Labs: CBC, BMP 09/16/17 18:20 09/16/17 18:37 Problem List - Problems (1) Pulmonary sarcoidosis Code(s): D86.0 - SARCOIDOSIS OF LUNG (2) COPD (chronic obstructive pulmonary disease) Code(s): J44.9 - CHRONIC OBSTRUCTIVE PULMONARY DISEASE, UNSPECIFIED (3) CHF (congestive heart failure) Code(s): I50.9 - HEART FAILURE, UNSPECIFIED Qualifiers: Heart failure type: unspecified Heart failure chronicity: unspecified Qualified Code(s): I50.9 - Heart failure, unspecified (4) Cardiac sarcoidosis Code(s): 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 (5) Chronic diastolic CHF (congestive heart failure) Code(s): I50.32 - CHRONIC DIASTOLIC (CONGESTIVE) HEART FAILURE (6) Chronic low back pain Code(s): M54.5 - LOW BACK PAIN; G89.29 - OTHER CHRONIC PAIN (7) Diabetes mellitus Code(s): E11.9 - TYPE 2 DIABETES MELLITUS WITHOUT COMPLICATIONS Qualifiers: Diabetes mellitus type: type 2 Diabetes mellitus complication status: without complication (8) ICD (implantable cardioverter-defibrillator) in place Code(s): Z95.810 - PRESENCE OF AUTOMATIC (IMPLANTABLE) CARDIAC DEFIBRILLATOR (9) Multifocal atrial tachycardia Code(s): I47.1 - SUPRAVENTRICULAR TACHYCARDIA (10) Obstructive sleep apnea Code(s): G47.33 - OBSTRUCTIVE SLEEP APNEA (ADULT) (PEDIATRIC) (11) Allergy to multiple antibiotics Code(s): Z88.1 - ALLERGY STATUS TO OTHER ANTIBIOTIC AGENTS STATUS (12) Hypercarbia Code(s): R06.89 - OTHER ABNORMALITIES OF BREATHING (13) Oxygen dependent Code(s): Z99.81 - DEPENDENCE ON SUPPLEMENTAL OXYGEN (14) PHT (pulmonary hypertension) Code(s): I27.20 - PULMONARY HYPERTENSION, UNSPECIFIED (15) Rapid atrial fibrillation Code(s): I48.91 - UNSPECIFIED ATRIAL FIBRILLATION (16) Back pain Code(s): M54.9 - DORSALGIA, UNSPECIFIED Qualifiers: Back pain location: low back pain Chronicity: acute Back pain laterality : bilateral Sciatica presence: without sciatica Qualified Code(s): M54.5 - Low back pain
[2017-09-16] MEDS ORDERED: ALBUTEROL SO4 2.5/IPRATROPIUM 0.5 INH SOL 3 ML VIAL.NEB. NEB PRN (22:56)
[2017-09-16] MEDS: NYSTATIN 500,000 UNITS/5 ML SUSPENSION PO SCH (23:44)
[2017-09-16] MEDS: APIXABAN 2.5 MG TABLET PO SCH (23:45)
[2017-09-17] MEDS: morphine SO4 SUSTAINED ACTING 15 MG TABLET.SA PO SCH ×3 (03:02→21:34)
[2017-09-17] MEDS: METOCLOPRAMIDE HCL 10 MG TABLET (FP) PO SCH ×3 (06:04→21:33)
[2017-09-17] MEDS: dilTIAZem HCL 30 MG TABLET (FP) PO SCH ×3 (06:04→21:34)
[2017-09-17] MEDS: NYSTATIN 500,000 UNITS/5 ML SUSPENSION PO SCH ×4 (06:05→17:07)
[2017-09-17] MEDS: INSULIN SLIDING SCALE (NOVOLOG) 1 VIAL SQ SCH ×4 (06:41→21:35)
[2017-09-17 07:38] LABS: HEMATOCRIT 26.6 % (32.4-45.2); HEMOGLOBIN 8.7 GM/dL (10.7-15.3); MCH 28.3 pg (25.7-33.7); MCHC 32.6 g/dl (32.0-36.0); MEAN CELL VOLUME 86.6 fl (80-96); MEAN PLT VOLUME 7.2 fl (7.5-11.1); PLATELET COUNT 258 K/MM3 (134-434); RBC 3.07 M/mm3 (3.60-5.2); RDW 16.2 % (11.6-15.6); WHITE BLOOD COUNT 8.6 K/mm3 (4.0-10.0)
[2017-09-17] MEDS ORDERED: ALBUTEROL SO4 2.5/IPRATROPIUM 0.5 INH SOL 3 ML VIAL.NEB. NEB SCH (08:00)
[2017-09-17 08:12] LABS: ALBUMIN 2.6 g/dl (3.4-5.0); ANION GAP 6 (8-16); CALCIUM 8.8 mg/dL (8.5-10.1); CHLORIDE 98 mmol/L (98-107); CO2 36 mmol/L (21-32); CREATININE 0.6 mg/dL (0.55-1.02); POTASSIUM 4.4 mmol/L (3.5-5.1); SGOT/AST 14 U/L (15-37); SGPT/ALT 26 U/L (12-78); SODIUM 140 mmol/L (136-145); TRIGLYCERIDES 72 mg/dL (35-160)
[2017-09-17 08:21] LABS: ALK PHOS 99 U/L (45-117); BILIRUBIN,TOTAL 0.3 mg/dL (0.2-1.0); BLOOD UREA NITROGEN 21 mg/dL (7-18); CHOLESTEROL 171 mg/dL (50-200); GLUCOSE,RANDOM 286 mg/dL (74-106); HDL CHOLESTEROL 85 mg/dL (40-60); PHOSPHOROUS 4.2 mg/dL (2.5-4.9); TOT PROT 6.5 g/dl (6.4-8.2)
--- NOTE | 2017-09-17 09:03 | PN ---
Progress Note, Physician Chief Complaint: Frequent admissions, well known to me: Cardiac sarcoid, pulmonary sarcoid H/o ICD for syncope, VT, MRI + sarcoid DVT s/p course AC--On Eliquis Recent severe epistaxis, seen by daniel---> dose changed to 2.5 BID Chronic diastolic CHF Last admission for epistaxis she was seen by Daniel and evaluated for need and dose of Eliquis. After cauterization, Daniel recommended decreasing Eliquis to 2.5 BID Her Lasix was also held due to periods of hypotension and her Cardizem CD (used for MAT/PAT) was changed to short acting. She was discharged without Lasix with plan of re-evaluation as outpatient, but after only several days off developed worsening MORSE and b/l LE edema prompting her to return to ER yesterday. CXR c/ w CHF. This AM she feels much improved after dose IV Lasix with improved edema. History of Present Illness: PMH: As above. Also includes non-obstx CAD - Current Medication List Current Medications: Active Medications Albuterol/Ipratropium (Duoneb -) 1 amp NEB RQID [facility] Last Admin: 09/17/17 08:00 Dose: 1 amp Albuterol/Ipratropium (Duoneb -) 1 amp NEB Q4H PRN PRN Reason: SHORTNESS OF BREATH Apixaban (Eliquis -) 2.5 mg PO BID [facility] Last Admin: 09/16/17 23:45 Dose: 2.5 mg Diltiazem HCl (Cardizem -) 30 mg PO TID [facility] Last Admin: 09/17/17 06:04 Dose: 30 mg Insulin Aspart (Novolog Vial Sliding Scale -) 1 vial SQ [facility]; Protocol Last Admin: 09/17/17 06:41 Dose: 6 unit Insulin Detemir (Levemir Vial) 50 units SQ HS [facility] Lisinopril (Prinivil) 10 mg PO DAILY [facility] Metoclopramide HCl (Reglan -) 5 mg PO TID [facility] Last Admin: 09/17/17 06:04 Dose: 5 mg Montelukast Sodium (Singulair -) 10 mg PO HS [facility] Morphine Sulfate (Ms Contin -) 15 mg PO BID [facility] Last Admin: 09/17/17 03:02 Dose: 15 mg Nystatin (Nystatin Oral Suspension -) 100,000 units PO Q6HPO [facility] Last Admin: 09/17/17 06:05 Dose: 100,000 units Pantoprazole Sodium (Protonix -) 40 mg PO HS [facility] Pregabalin (Lyrica -) 75 mg PO BID [facility] Senna (Senna -) 1 tab PO HS [facility] Sodium Chloride ([place] Nasal [place] -) 2 spray NS BID [facility] Tiotropium [place] (Spiriva -) 1 puff IH DAILY [facility] - Objective Vital Signs: Vital Signs Temperature 98.2 F 09/17/17 06:10 Pulse Rate 104 H 09/17/17 06:10 Respiratory Rate 20 09/17/17 06:10 Blood Pressure 118/83 09/17/17 06:10 O2 Sat by Pulse Oximetry (%) 93 L 09/17/17 03:00 Constitutional: Yes: No Distress Eyes: Yes: Conjunctiva Clear Cardiovascular: Yes: Regular Rate and Rhythm Respiratory: Yes: Rhonchi (mild basilar rales b/l), Other Gastrointestinal: Yes: Soft Edema: Yes Edema: LLE: 1+, RLE: 1+ Neurological: Yes: Alert, Oriented ...Motor Strength: WNL Labs: CBC, BMP 09/17/17 07:00 09/17/17 07:05 - ....Imaging Chest X-ray: Image Reviewed EKG: Image Reviewed (TELE: NATALEE CIFUENTES, some MAT as well) Assessment/Plan IMP: Complicated, chronically ill, sedentary patient with long standing Sarcoidosis with pulmonary and cardiac involvement s/p ICD for VT and syncope several years ago; on long standing NOAC therapy for LLE DVT diagnosed in 12/2016. Now readmitted with acute on chronic diastolic CHF in setting of interruption of diuretic therapy. REC: 1. Resume Lasix: will need additional 1-2 days of IV therapy. 2. Continue tele for PAT/MAT; will use short acting Cardizem as she has had episodes of hypotension with standing diuretic and extended release Cardizem in past. 3. Daily BMP, follow K+ and renal fxn 4. To continue Eliquis at Heme suggested dose. Will follow.
[2017-09-17] MEDS: APIXABAN 2.5 MG TABLET PO SCH ×2 (09:09→21:33)
[2017-09-17] MEDS: PREGABALIN 75 MG CAPSULE PO SCH ×2 (09:09→21:34)
[2017-09-17] MEDS: SODIUM CHLORIDE NASAL SPRAY 44 ML BOTTLE NS SCH ×2 (09:10→21:33)
[2017-09-17] MEDS: LISINOPRIL 10 MG TABLET (FP) PO SCH (09:11)
[2017-09-17] MEDS: TIOTROPIUM BROMIDE 18 MCG CAPSULES IH SCH (09:11)
[2017-09-17] MEDS: FUROSEMIDE 40 MG/4 ML INJECTABLE VIAL IVPUSH SCH (09:18)
[2017-09-17] MEDS ORDERED: morphine SO4 SUSTAINED ACTING 15 MG TABLET.SA PO SCH (10:00)
--- NOTE | 2017-09-17 10:22 | EKG ---
Test Reason : Blood Pressure : / mmHG Vent. Rate : 079 BPM Atrial Rate : 079 BPM P-R Int : 134 ms QRS Dur : 066 ms QT Int : 354 ms P-R-T Axes : 041 -03 039 degrees QTc Int : 405 ms NORMAL SINUS RHYTHM WHEN COMPARED WITH ECG OF 16-SEP-2017 15:54, NO SIGNIFICANT CHANGE WAS FOUND Confirmed by JOHNNY BRYANT MD ([id number]) on 09/17/2017 10:22:24 AM Referred By: Confirmed By:JOHNNY BRYANT MD
--- NOTE | 2017-09-17 10:40 | PN ---
Progress Note (short form) - Note Progress Note: PULMONARY CONSULTATION DICTATED 09/17/17 IMP ACUTE ON CHRONIC HYPOXEMIC/HYPERCAPNEIC RESPIRATORY FAILURE ADVANCED SARCOIDOSIS WITH ADVANCE ILD/FIBROSIS CARDIAC SARCOID S/P AICD PULMONARY HTN DIASTOLIC HF CP OSAS HTN HLD H/O HEP C H/O DVT PLAN LASIX STEROIDS O2 BIPAP AT NIGHT AND PRN INHALED BRONCHODILATORS CE DAILY WTS F/U CHEST X-RAY STRICT I+OS BG EUBANKS Problem List - Problems (1) CHF (congestive heart failure) Code(s): I50.9 - HEART FAILURE, UNSPECIFIED Qualifiers: Heart failure type: unspecified Heart failure chronicity: unspecified Qualified Code(s): I50.9 - Heart failure, unspecified (2) Pulmonary sarcoidosis Code(s): D86.0 - SARCOIDOSIS OF LUNG (3) Acute on chronic respiratory failure with hypoxia and hypercapnia Code(s): J96.21 - ACUTE AND CHRONIC RESPIRATORY FAILURE WITH HYPOXIA; J96.22 - ACUTE AND CHRONIC RESPIRATORY FAILURE WITH HYPERCAPNIA (4) COPD exacerbation Code(s): J44.1 - CHRONIC OBSTRUCTIVE PULMONARY DISEASE W (ACUTE) EXACERBATION (5) Cardiac sarcoidosis Code(s): 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 (6) Chest pain Code(s): R07.9 - CHEST PAIN, UNSPECIFIED Qualifiers: Chest pain type: unspecified Qualified Code(s): R07.9 - Chest pain, unspecified (7) Chronic diastolic CHF (congestive heart failure) Code(s): I50.32 - CHRONIC DIASTOLIC (CONGESTIVE) HEART FAILURE (8) ICD (implantable cardioverter-defibrillator) in place Code(s): Z95.810 - PRESENCE OF AUTOMATIC (IMPLANTABLE) CARDIAC DEFIBRILLATOR (9) Interstitial lung disease Code(s): J84.9 - INTERSTITIAL PULMONARY DISEASE, UNSPECIFIED (10) Obstructive sleep apnea Code(s): G47.33 - OBSTRUCTIVE SLEEP APNEA (ADULT) (PEDIATRIC) (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
--- NOTE | 2017-09-17 11:11 | CONS ---
DATE OF CONSULTATION: 09/17/2017 REFERRING PHYSICIAN: Whit Fuchs MD HISTORY OF PRESENT ILLNESS: The patient is a 62-year-old black female known to me from previous hospitalizations. Extensive past medical history includes advanced sarcoidosis with interstitial lung disease, cardiac sarcoid, atrial fibrillation , congestive heart failure, GERD, hyperlipidemia, hepatitis C, hypertension, anemia, diabetes and urinary retention, currently maintained on home O2, admitted to [facility] with chest pain and shortness of breath. Patient states she was recently discharged from [facility] and was doing relatively well until the day prior to admission when she started developing increasing shortness of breath and chest discomfort. Denied any fever, chills. She did complain of some nausea but no vomiting. She also complained of increasing lower extremity edema, a nonproductive cough and orthopnea. Denies any hemoptysis. Apparently she was recently discontinued on Lasix on September 06. She also apparently denies taking Eliquis but has not run out of medication. Patient was admitted with the above. On admission she was felt to have CHF exacerbation. She was started on Lasix IV with some clinical improvement. PAST MEDICAL HISTORY: Again includes advanced sarcoidosis, interstitial lung disease, cardiac sarcoid, cardiomyopathy, congestive heart failure, hypertension , atrial fibrillation, chronic hypoxic respiratory failure, hepatitis C, anemia and diabetes. REVIEW OF SYSTEMS: Positive orthopnea. Positive dyspnea. Positive nonproductive cough. Positive chest pain. No fever. Positive chills. Positive nausea. Positive lower extremity edema. CURRENT MEDICATIONS: Include Prinivil; Eliquis; Lyrica; Spiriva; Duo-Neb; Cardizem; Senna; [place] nasal spray; NovoLog; Levemir; Singulair; Lasix; MS Contin; Protonix. PHYSICAL EXAMINATION: General: The patient is a well-developed, well-nourished female, awake, alert, appears mildly dyspneic but in no acute distress. Vital Signs: She is afebrile, blood pressure 118/83, respiratory rate is 20, O2 saturation is 93% on 2 L. HEENT: Normocephalic, atraumatic. Neck: Supple. Heart: Irregular with S1, S2. Chest: Bilateral crackles throughout. Abdomen: Soft. Bowel sounds are positive. Extremities: Bilateral extremity edema. LABORATORIES: WBC is 8, hemoglobin 8.7, hematocrit 26.6 with a platelet count of 258,000. BUN 26, creatinine 0.6. BNP is 69.2. Chest x-ray: Cardiomegaly with increased markings bilaterally. IMPRESSION: Acute on chronic hypoxemic respiratory failure, likely secondary to : 1. Advanced sarcoidosis with advanced interstitial lung disease. 2. Cardiac sarcoid with mild fluid overload. 3. Congestive heart failure, although brain natriuretic-peptide normal. 4. Hypertension. 5. Hyperlipidemia. 6. History of hepatitis C. 7. Moderate pulmonary hypertension. PLAN: Lasix. Supplemental O2. BiPAP at night as well as p.r.n. Inhaled bronchodilators. short course of Medrol. Followup chest x-ray. Also monitor daily weights. Monitor electrolytes. STACY EUBANKS M.D. [id number] MTDD
[2017-09-17] MEDS: methylPREDNISolone NA SUCC 40 MG/1 ML VIAL IVPUSH SCH ×2 (11:33→17:05)
[2017-09-17] MEDS: ALBUTEROL SO4 0.083% IH SOL 2.5 MG/3 ML VIAL.NEB. NEB PRN ×2 (12:02→16:18)
[2017-09-17] MEDS: ARFORMOTEROL TARTRATE 15 MCG/2 ML VIAL NEB SCH (20:50)
[2017-09-17] MEDS ORDERED: PT OWN MED DRAWER 7, Y5N ONE (21:18)
[2017-09-17] MEDS: PANTOPRAZOLE 40 MG TABLET (FP) PO SCH (21:33)
[2017-09-17] MEDS: MONTELUKAST NA 10 MG TABLET PO SCH (21:33)
[2017-09-17] MEDS: SENNOSIDES 8.6MG TABLET (FP) PO SCH (21:33)
[2017-09-17] MEDS: INSULIN (LEVEMIR) 100 UNITS/ML UNITS SQ SCH (21:35)
[2017-09-18] MEDS: NYSTATIN 500,000 UNITS/5 ML SUSPENSION PO SCH ×5 (00:56→17:22)
[2017-09-18] MEDS: methylPREDNISolone NA SUCC 40 MG/1 ML VIAL IVPUSH SCH ×3 (01:52→21:45)
[2017-09-18] MEDS: dilTIAZem HCL 30 MG TABLET (FP) PO SCH ×3 (06:20→21:46)
[2017-09-18] MEDS: INSULIN SLIDING SCALE (NOVOLOG) 1 VIAL SQ SCH ×4 (06:20→21:47)
[2017-09-18] MEDS: METOCLOPRAMIDE HCL 10 MG TABLET (FP) PO SCH ×3 (06:20→21:46)
[2017-09-18] MEDS ORDERED: INSULIN (NOVOLOG) ASPART 100 UNITS/ML 10ML VIAL ONE (06:44)
[2017-09-18] MEDS: ARFORMOTEROL TARTRATE 15 MCG/2 ML VIAL NEB SCH ×2 (08:05→20:50)
--- NOTE | 2017-09-18 08:57 | PN ---
Progress Note, Physician Chief Complaint: seen and examined TELE: NSR, frequent APCs, 3 beats NSVT History of Present Illness: She is feeling better - Current Medication List Current Medications: Active Medications Albuterol Sulfate (Ventolin 0.083% Nebulizer Soln -) 1 amp NEB Q4H PRN PRN Reason: SHORT OF BREATH/WHEEZING Last Admin: 09/17/17 16:18 Dose: 1 amp Apixaban (Eliquis -) 2.5 mg PO BID [facility] Last Admin: 09/17/17 21:33 Dose: 2.5 mg Arformoterol Tartrate (Brovana (Restricted To Pulmonology/Resp) -) 1 amp NEB RBID [facility] Last Admin: 09/17/17 20:50 Dose: 1 amp Diltiazem HCl (Cardizem -) 30 mg PO TID [facility] Last Admin: 09/18/17 06:20 Dose: 30 mg Furosemide (Lasix Injection -) 40 mg IVPUSH DAILY [facility] Last Admin: 09/17/17 09:18 Dose: 40 mg Insulin Aspart (Novolog Vial Sliding Scale -) 1 vial SQ [facility]; Protocol Last Admin: 09/18/17 06:20 Dose: 6 unit Insulin Detemir (Levemir Vial) 50 units SQ [facility] Last Admin: 09/17/17 21:35 Dose: 50 units Lisinopril (Prinivil) 10 mg PO DAILY [facility] Last Admin: 09/17/17 09:11 Dose: 10 mg Methylprednisolone Sodium Succinate (Solu-Medrol -) 40 mg IVPUSH Q8H-IV [facility] Last Admin: 09/18/17 01:52 Dose: 40 mg Metoclopramide HCl (Reglan -) 5 mg PO TID [facility] Last Admin: 09/18/17 06:20 Dose: 5 mg Montelukast Sodium (Singulair -) 10 mg PO [facility] Last Admin: 09/17/17 21:33 Dose: 10 mg Morphine Sulfate (Ms Contin -) 15 mg PO BID [facility] Last Admin: 09/17/17 21:34 Dose: 15 mg Nystatin (Nystatin Oral Suspension -) 100,000 units PO Q6HPO [facility] Last Admin: 09/18/17 06:23 Dose: Not Given Pantoprazole Sodium (Protonix -) 40 mg PO [facility] Last Admin: 09/17/17 21:33 Dose: 40 mg Pregabalin (Lyrica -) 75 mg PO BID [facility] Last Admin: 09/17/17 21:34 Dose: 75 mg Senna (Senna -) 1 tab PO HS [facility] Last Admin: 09/17/17 21:33 Dose: 1 tab Sodium Chloride ([place] Nasal [place] -) 2 spray NS BID [facility] Last Admin: 09/17/17 21:33 Dose: 2 spray Tiotropium [place] (Spiriva -) 1 puff IH DAILY [facility] Last Admin: 09/17/17 09:11 Dose: 1 puff - Objective Vital Signs: Vital Signs Temperature 98.1 F 09/18/17 08:26 Pulse Rate 74 09/18/17 08:26 Respiratory Rate 16 09/18/17 08:26 Blood Pressure 120/78 09/18/17 08:26 O2 Sat by Pulse Oximetry (%) 100 09/17/17 21:00 Constitutional: Yes: Calm Cardiovascular: Yes: Regular Rate and Rhythm Respiratory: Yes: Other (scattered rhonchi; no rales) Gastrointestinal: Yes: Soft, Abdomen, Obese Edema: Yes Edema: LLE: 1+, RLE: 1+ Neurological: Yes: Alert, Oriented ...Motor Strength: WNL Labs: CBC, BMP 09/17/17 07:00 09/17/17 07:05 Laboratory Tests 09/16/17 09/16/17 09/17/17 16:43 18:37 07:00 WBC 8.6 Hgb 8.7 L Plt Count 258 Sodium Potassium BUN Creatinine Troponin I Cancelled B-Natriuretic Peptide 69.62 09/17/17 07:05 WBC Hgb Plt Count Sodium 140 Potassium 4.4 BUN 21 H Creatinine 0.6 Troponin I B-Natriuretic Peptide - ....Imaging EKG: Image Reviewed Assessment/Plan IMP: Complicated, chronically ill, sedentary patient with long standing Sarcoidosis with pulmonary and cardiac involvement s/p ICD for VT and syncope several years ago; on long standing NOAC therapy for LLE DVT diagnosed in 12/2016. Now readmitted with acute on chronic diastolic CHF in setting of interruption of diuretic therapy. REC: 1. Plan to switch to PO Lasix tomorrow 2. Continue tele for PAT/MAT; will use short acting Cardizem as she has had episodes of hypotension with standing diuretic and extended release Cardizem in past. 3. Daily BMP, follow K+ and renal fxn 4. To continue Eliquis at Heme suggested dose.
[2017-09-18] MEDS: FUROSEMIDE 40 MG/4 ML INJECTABLE VIAL IVPUSH SCH (09:14)
[2017-09-18] MEDS: LISINOPRIL 10 MG TABLET (FP) PO SCH (09:14)
[2017-09-18] MEDS: TIOTROPIUM BROMIDE 18 MCG CAPSULES IH SCH (09:15)
[2017-09-18] MEDS: APIXABAN 2.5 MG TABLET PO SCH ×2 (09:15→21:47)
[2017-09-18] MEDS: PREGABALIN 75 MG CAPSULE PO SCH ×2 (09:15→21:45)
[2017-09-18] MEDS: morphine SO4 SUSTAINED ACTING 15 MG TABLET.SA PO SCH ×2 (09:15→21:45)
[2017-09-18] MEDS: SODIUM CHLORIDE NASAL SPRAY 44 ML BOTTLE NS SCH ×2 (09:17→21:48)
--- NOTE | 2017-09-18 11:20 | PN ---
Progress Note (short form) - Note Progress Note: seenand examined in room was sleeping O2 in place comfortable Vital Signs Period Temp Pulse Resp BP Sys/[place] Pulse Ox Last 24 Hr 97.6 F-98.2 F 74-99 16-19 92-120/53-78 100-100 supple heart S1/S2 lungs bilat fine crackles abd soft ext +1 edema CBC, BMP 09/17/17 07:00 09/17/17 07:05 Active Medications Albuterol Sulfate (Ventolin 0.083% Nebulizer Soln -) 1 amp NEB Q4H PRN PRN Reason: SHORT OF BREATH/WHEEZING Last Admin: 09/17/17 16:18 Dose: 1 amp Apixaban (Eliquis -) 2.5 mg PO BID [facility] Last Admin: 09/18/17 09:15 Dose: 2.5 mg Arformoterol Tartrate (Brovana (Restricted To Pulmonology/Resp) -) 1 amp NEB RBID [facility] Last Admin: 09/18/17 08:05 Dose: 1 amp Diltiazem HCl (Cardizem -) 30 mg PO TID [facility] Last Admin: 09/18/17 06:20 Dose: 30 mg Furosemide (Lasix Injection -) 40 mg IVPUSH DAILY [facility] Last Admin: 09/18/17 09:14 Dose: 40 mg Insulin Aspart (Novolog Vial Sliding Scale -) 1 vial SQ [facility]; Protocol Last Admin: 09/18/17 06:20 Dose: 6 unit Insulin Detemir (Levemir Vial) 50 units SQ HS [facility] Last Admin: 09/17/17 21:35 Dose: 50 units Lisinopril (Prinivil) 10 mg PO DAILY [facility] Last Admin: 09/18/17 09:14 Dose: 10 mg Methylprednisolone Sodium Succinate (Solu-Medrol -) 40 mg IVPUSH Q8H-IV [facility] Last Admin: 09/18/17 09:15 Dose: 40 mg Metoclopramide HCl (Reglan -) 5 mg PO TID [facility] Last Admin: 09/18/17 06:20 Dose: 5 mg Montelukast Sodium (Singulair -) 10 mg PO HS [facility] Last Admin: 09/17/17 21:33 Dose: 10 mg Morphine Sulfate (Ms Contin -) 15 mg PO BID [facility] Last Admin: 09/18/17 09:15 Dose: 15 mg Nystatin (Nystatin Oral Suspension -) 100,000 units PO Q6HPO [facility] Last Admin: 09/18/17 06:23 Dose: Not Given Pantoprazole Sodium (Protonix -) [address] [facility] Last Admin: 09/17/17 21:33 Dose: 40 mg Pregabalin (Lyrica -) 75 mg PO BID [facility] Last Admin: 09/18/17 09:15 Dose: 75 mg Senna (Senna -) [address] [facility] Last Admin: 09/17/17 21:33 Dose: 1 tab Sodium Chloride ([place] Nasal [place] -) 2 spray NS BID [facility] Last Admin: 09/18/17 09:17 Dose: 2 spray Tiotropium [place] (Spiriva -) 1 puff IH DAILY [facility] Last Admin: 09/18/17 09:15 Dose: 1 puff Problem List - Problems (1) Pulmonary sarcoidosis Code(s): D86.0 - SARCOIDOSIS OF LUNG (2) COPD (chronic obstructive pulmonary disease) Code(s): J44.9 - CHRONIC OBSTRUCTIVE PULMONARY DISEASE, UNSPECIFIED (3) CHF (congestive heart failure) Code(s): I50.9 - HEART FAILURE, UNSPECIFIED Qualifiers: Heart failure type: unspecified Heart failure chronicity: unspecified Qualified Code(s): I50.9 - Heart failure, unspecified (4) Cardiac sarcoidosis Code(s): 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 (5) Chronic diastolic CHF (congestive heart failure) Code(s): I50.32 - CHRONIC DIASTOLIC (CONGESTIVE) HEART FAILURE (6) Chronic low back pain Code(s): M54.5 - LOW BACK PAIN; G89.29 - OTHER CHRONIC PAIN (7) Diabetes mellitus Code(s): E11.9 - TYPE 2 DIABETES MELLITUS WITHOUT COMPLICATIONS Qualifiers: Diabetes mellitus type: type 2 Diabetes mellitus complication status: without complication (8) ICD (implantable cardioverter-defibrillator) in place Code(s): Z95.810 - PRESENCE OF AUTOMATIC (IMPLANTABLE) CARDIAC DEFIBRILLATOR (9) Multifocal atrial tachycardia Code(s): I47.1 - SUPRAVENTRICULAR TACHYCARDIA (10) Obstructive sleep apnea Code(s): G47.33 - OBSTRUCTIVE SLEEP APNEA (ADULT) (PEDIATRIC) (11) Allergy to multiple antibiotics Code(s): Z88.1 - ALLERGY STATUS TO OTHER ANTIBIOTIC AGENTS STATUS (12) Hypercarbia Code(s): R06.89 - OTHER ABNORMALITIES OF BREATHING (13) Oxygen dependent Code(s): Z99.81 - DEPENDENCE ON SUPPLEMENTAL OXYGEN (14) PHT (pulmonary hypertension) Code(s): I27.20 - PULMONARY HYPERTENSION, UNSPECIFIED (15) Rapid atrial fibrillation Code(s): I48.91 - UNSPECIFIED ATRIAL FIBRILLATION (16) Back pain Code(s): M54.9 - DORSALGIA, UNSPECIFIED Qualifiers: Back pain location: low back pain Chronicity: acute Back pain laterality : bilateral Sciatica presence: without sciatica Qualified Code(s): M54.5 - Low back pain
--- NOTE | 2017-09-18 13:04 | PN ---
Progress Note (short form) - Note Progress Note: Breathing feels a little better. Cough persists. No CP. Intake & Output 09/15/17 09/16/17 09/17/17 09/18/17 23:59 23:59 23:59 23:59 Intake Total 370 250 Balance 370 250 Weight 177 lb 176 lb 3.2 oz Last Vital Signs Temp Pulse Resp BP Pulse Ox 98.1 F 74 16 120/78 100 09/18/17 08:26 09/18/17 08:26 09/18/17 08:26 09/18/17 08:26 09/18/17 06:00 Active Medications Albuterol Sulfate (Ventolin 0.083% Nebulizer Soln -) 1 amp NEB Q4H PRN PRN Reason: SHORT OF BREATH/WHEEZING Last Admin: 09/17/17 16:18 Dose: 1 amp Apixaban (Eliquis -) 2.5 mg PO BID [facility] Last Admin: 09/18/17 09:15 Dose: 2.5 mg Arformoterol Tartrate (Brovana (Restricted To Pulmonology/Resp) -) 1 amp NEB RBID [facility] Last Admin: 09/18/17 08:05 Dose: 1 amp Diltiazem HCl (Cardizem -) 30 mg PO TID [facility] Last Admin: 09/18/17 06:20 Dose: 30 mg Furosemide (Lasix Injection -) 40 mg IVPUSH DAILY [facility] Last Admin: 09/18/17 09:14 Dose: 40 mg Insulin Aspart (Novolog Vial Sliding Scale -) 1 vial SQ [facility]; Protocol Last Admin: 09/18/17 11:48 Dose: 8 unit Insulin Detemir (Levemir Vial) 50 units SQ [facility] Last Admin: 09/17/17 21:35 Dose: 50 units Lisinopril (Prinivil) 10 mg PO DAILY [facility] Last Admin: 09/18/17 09:14 Dose: 10 mg Methylprednisolone Sodium Succinate (Solu-Medrol -) 40 mg IVPUSH Q8H-IV [facility] Last Admin: 09/18/17 09:15 Dose: 40 mg Metoclopramide HCl (Reglan -) 5 mg PO TID [facility] Last Admin: 09/18/17 06:20 Dose: 5 mg Montelukast Sodium (Singulair -) 10 mg PO [facility] Last Admin: 09/17/17 21:33 Dose: 10 mg Morphine Sulfate (Ms Contin -) 15 mg PO BID [facility] Last Admin: 09/18/17 09:15 Dose: 15 mg Nystatin (Nystatin Oral Suspension -) 100,000 units PO Q6HPO [facility] Last Admin: 09/18/17 11:47 Dose: 100,000 units Pantoprazole Sodium (Protonix -) 40 mg PO HS [facility] Last Admin: 09/17/17 21:33 Dose: 40 mg Pregabalin (Lyrica -) 75 mg PO BID [facility] Last Admin: 09/18/17 09:15 Dose: 75 mg Senna (Senna -) 1 tab PO HS [facility] Last Admin: 09/17/17 21:33 Dose: 1 tab Sodium Chloride ([place] Nasal [place] -) 2 spray NS BID [facility] Last Admin: 09/18/17 09:17 Dose: 2 spray Tiotropium [place] (Spiriva -) 1 puff IH DAILY [facility] Last Admin: 09/18/17 09:15 Dose: 1 puff Constitutional: Yes: NAD Cardiovascular: Yes: Regular Rate and Rhythm Respiratory: Yes: scattered rhonchi, no wheeze Gastrointestinal: Yes: Soft, Abdomen, Obese Edema: Yes Edema: LLE: 1+, RLE: 1+ Neurological: Yes: Alert, Oriented ...Motor Strength: WNL Labs: Laboratory Results - last 24 hr 09/17/17 09/17/17 09/18/17 16:56 21:29 06:19 POC Glucometer 378 393 348 09/18/17 11:46 POC Glucometer 394 Problem List - Problems (1) CHF (congestive heart failure) Code(s): I50.9 - HEART FAILURE, UNSPECIFIED Qualifiers: Heart failure type: unspecified Heart failure chronicity: unspecified Qualified Code(s): I50.9 - Heart failure, unspecified (2) Pulmonary sarcoidosis Code(s): D86.0 - SARCOIDOSIS OF LUNG (3) Acute on chronic respiratory failure with hypoxia and hypercapnia Code(s): J96.21 - ACUTE AND CHRONIC RESPIRATORY FAILURE WITH HYPOXIA; J96.22 - ACUTE AND CHRONIC RESPIRATORY FAILURE WITH HYPERCAPNIA (4) COPD exacerbation Code(s): J44.1 - CHRONIC OBSTRUCTIVE PULMONARY DISEASE W (ACUTE) EXACERBATION (5) Cardiac sarcoidosis Code(s): 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 (6) Chest pain Code(s): R07.9 - CHEST PAIN, UNSPECIFIED Qualifiers: Chest pain type: unspecified Qualified Code(s): R07.9 - Chest pain, unspecified (7) Chronic diastolic CHF (congestive heart failure) Code(s): I50.32 - CHRONIC DIASTOLIC (CONGESTIVE) HEART FAILURE (8) ICD (implantable cardioverter-defibrillator) in place Code(s): Z95.810 - PRESENCE OF AUTOMATIC (IMPLANTABLE) CARDIAC DEFIBRILLATOR (9) Interstitial lung disease Code(s): J84.9 - INTERSTITIAL PULMONARY DISEASE, UNSPECIFIED (10) Obstructive sleep apnea Code(s): G47.33 - OBSTRUCTIVE SLEEP APNEA (ADULT) (PEDIATRIC) (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
[2017-09-18] MEDS ORDERED: PT OWN MED DRAWER 7, Y5N ONE ×2 (21:40→22:37)
[2017-09-18] MEDS: INSULIN (LEVEMIR) 100 UNITS/ML UNITS SQ SCH (21:47)
[2017-09-18] MEDS: PANTOPRAZOLE 40 MG TABLET (FP) PO SCH (21:47)
[2017-09-18] MEDS: SENNOSIDES 8.6MG TABLET (FP) PO SCH (21:47)
[2017-09-18] MEDS: MONTELUKAST NA 10 MG TABLET PO SCH (21:47)
[2017-09-19] MEDS: NYSTATIN 500,000 UNITS/5 ML SUSPENSION PO SCH ×4 (00:32→18:24)
[2017-09-19] MEDS: METOCLOPRAMIDE HCL 10 MG TABLET (FP) PO SCH ×3 (06:17→22:02)
[2017-09-19] MEDS: ALBUTEROL SO4 0.083% IH SOL 2.5 MG/3 ML VIAL.NEB. NEB PRN ×2 (06:17→17:22)
[2017-09-19] MEDS: dilTIAZem HCL 30 MG TABLET (FP) PO SCH ×3 (06:17→22:02)
[2017-09-19] MEDS: INSULIN SLIDING SCALE (NOVOLOG) 1 VIAL SQ SCH ×4 (06:18→22:03)
[2017-09-19] MEDS: ARFORMOTEROL TARTRATE 15 MCG/2 ML VIAL NEB SCH ×2 (08:00→22:25)
--- NOTE | 2017-09-19 09:17 | PN ---
Progress Note, Physician - Current Medication List Current Medications: Active Medications Albuterol Sulfate (Ventolin 0.083% Nebulizer Soln -) 1 amp NEB Q4H PRN PRN Reason: SHORT OF BREATH/WHEEZING Last Admin: 09/19/17 06:17 Dose: 1 amp Apixaban (Eliquis -) 2.5 mg PO BID [facility] Last Admin: 09/18/17 21:47 Dose: 2.5 mg Arformoterol Tartrate (Brovana (Restricted To Pulmonology/Resp) -) 1 amp NEB RBID [facility] Last Admin: 09/18/17 20:50 Dose: 1 amp Diltiazem HCl (Cardizem -) 30 mg PO TID [facility] Last Admin: 09/19/17 06:17 Dose: 30 mg Furosemide (Lasix Injection -) 40 mg IVPUSH DAILY [facility] Last Admin: 09/18/17 09:14 Dose: 40 mg Insulin Aspart (Novolog Vial Sliding Scale -) 1 vial SQ [facility]; Protocol Last Admin: 09/19/17 06:18 Dose: 8 unit Insulin Detemir (Levemir Vial) 50 units SQ [facility] Last Admin: 09/18/17 21:47 Dose: 50 units Lisinopril (Prinivil) 10 mg PO DAILY [facility] Last Admin: 09/18/17 09:14 Dose: 10 mg Methylprednisolone Sodium Succinate (Solu-Medrol -) 40 mg IVPUSH BID [facility] Last Admin: 09/18/17 21:45 Dose: 40 mg Metoclopramide HCl (Reglan -) 5 mg PO TID [facility] Last Admin: 09/19/17 06:17 Dose: 5 mg Montelukast Sodium (Singulair -) 10 mg PO [facility] Last Admin: 09/18/17 21:47 Dose: 10 mg Morphine Sulfate (Ms Contin -) 15 mg PO BID [facility] Last Admin: 09/18/17 21:45 Dose: 15 mg Nystatin (Nystatin Oral Suspension -) 100,000 units PO Q6HPO [facility] Last Admin: 09/19/17 06:16 Dose: Not Given Pantoprazole Sodium (Protonix -) 40 mg PO [facility] Last Admin: 09/18/17 21:47 Dose: 40 mg Pregabalin (Lyrica -) 75 mg PO BID [facility] Last Admin: 09/18/17 21:45 Dose: 75 mg Senna (Senna -) 1 tab PO HS [facility] Last Admin: 09/18/17 21:47 Dose: 1 tab Sodium Chloride ([place] Nasal [place] -) 2 spray NS BID [facility] Last Admin: 09/18/17 21:48 Dose: 2 spray Tiotropium [place] (Spiriva -) 1 puff IH DAILY [facility] Last Admin: 09/18/17 09:15 Dose: 1 puff - Objective Vital Signs: Vital Signs Temperature 97.8 F 09/19/17 05:00 Pulse Rate 71 09/19/17 05:00 Respiratory Rate 20 09/19/17 05:00 Blood Pressure 107/71 09/19/17 05:00 O2 Sat by Pulse Oximetry (%) 100 09/18/17 21:00 Labs: CBC, BMP 09/17/17 07:00 09/17/17 07:05
[2017-09-19 10:36] LABS: ANION GAP 4 (8-16); BLOOD UREA NITROGEN 33 mg/dL (7-18); CHLORIDE 95 mmol/L (98-107); CO2 37 mmol/L (21-32); CREATININE 0.9 mg/dL (0.55-1.02); POTASSIUM 5.4 mmol/L (3.5-5.1); SODIUM 136 mmol/L (136-145)
[2017-09-19 10:44] LABS: GLUCOSE,RANDOM 457 mg/dL (74-106)
[2017-09-19] MEDS: morphine SO4 SUSTAINED ACTING 15 MG TABLET.SA PO SCH ×2 (11:05→22:02)
[2017-09-19] MEDS: APIXABAN 2.5 MG TABLET PO SCH ×2 (11:05→22:04)
[2017-09-19] MEDS: TIOTROPIUM BROMIDE 18 MCG CAPSULES IH SCH (11:06)
[2017-09-19] MEDS: LISINOPRIL 10 MG TABLET (FP) PO SCH (11:06)
[2017-09-19] MEDS: methylPREDNISolone NA SUCC 40 MG/1 ML VIAL IVPUSH SCH (11:06)
[2017-09-19] MEDS: SODIUM CHLORIDE NASAL SPRAY 44 ML BOTTLE NS SCH ×2 (11:07→22:03)
[2017-09-19] MEDS: PREGABALIN 75 MG CAPSULE PO SCH ×2 (11:07→22:02)
--- NOTE | 2017-09-19 12:46 | PN ---
Progress Note (short form) - Note Progress Note: Breathing feels a little better. Cough persists, but better. No CP. Intake & Output 09/16/17 09/17/17 09/18/17 09/19/17 23:59 23:59 23:59 23:59 Intake Total 370 830 300 Balance 370 830 300 Weight 177 lb 176 lb 3.2 oz 176 lb 4.8 oz Last Vital Signs Temp Pulse Resp BP Pulse Ox 97.8 F 71 20 107/71 100 09/19/17 05:00 09/19/17 05:00 09/19/17 05:00 09/19/17 05:00 09/18/17 21:00 Active Medications Albuterol Sulfate (Ventolin 0.083% Nebulizer Soln -) 1 amp NEB Q4H PRN PRN Reason: SHORT OF BREATH/WHEEZING Last Admin: 09/19/17 06:17 Dose: 1 amp Apixaban (Eliquis -) 2.5 mg PO BID [facility] Last Admin: 09/19/17 11:05 Dose: 2.5 mg Arformoterol Tartrate (Brovana (Restricted To Pulmonology/Resp) -) 1 amp NEB RBID [facility] Last Admin: 09/19/17 08:00 Dose: 1 amp Diltiazem HCl (Cardizem -) 30 mg PO TID [facility] Last Admin: 09/19/17 06:17 Dose: 30 mg Furosemide (Lasix -) 40 mg PO BID@0600,1400 [facility] Insulin Aspart (Novolog Vial Sliding Scale -) 1 vial SQ [facility]; Protocol Last Admin: 09/19/17 11:49 Dose: 8 unit Insulin Detemir (Levemir Vial) 50 units SQ [facility] Last Admin: 09/18/17 21:47 Dose: 50 units Lisinopril (Prinivil) 10 mg PO DAILY [facility] Last Admin: 09/19/17 11:06 Dose: 10 mg Methylprednisolone Sodium Succinate (Solu-Medrol -) 40 mg IVPUSH BID [facility] Last Admin: 09/19/17 11:06 Dose: 40 mg Metoclopramide HCl (Reglan -) 5 mg PO TID [facility] Last Admin: 09/19/17 06:17 Dose: 5 mg Montelukast Sodium (Singulair -) 10 mg PO [facility] Last Admin: 09/18/17 21:47 Dose: 10 mg Morphine Sulfate (Ms Contin -) 15 mg PO BID [facility] Last Admin: 09/19/17 11:05 Dose: 15 mg Nystatin (Nystatin Oral Suspension -) 100,000 units PO Q6HPO [facility] Last Admin: 09/19/17 11:06 Dose: 100,000 units Pantoprazole Sodium (Protonix -) 40 mg PO HS [facility] Last Admin: 09/18/17 21:47 Dose: 40 mg Pregabalin (Lyrica -) 75 mg PO BID [facility] Last Admin: 09/19/17 11:07 Dose: 75 mg Senna (Senna -) 1 tab PO HS [facility] Last Admin: 09/18/17 21:47 Dose: 1 tab Sodium Chloride ([place] Nasal [place] -) 2 spray NS BID [facility] Last Admin: 09/19/17 11:07 Dose: 2 spray Tiotropium [place] (Spiriva -) 1 puff IH DAILY [facility] Last Admin: 09/19/17 11:06 Dose: 1 puff Constitutional: Yes: NAD Cardiovascular: Yes: Regular Rate and Rhythm Respiratory: Yes: scattered rhonchi, no wheeze Gastrointestinal: Yes: Soft, Abdomen, Obese Edema: Yes Edema: LLE: 1+, RLE: 1+ Neurological: Yes: Alert, Oriented ...Motor Strength: WNL Labs: Laboratory Results - last 24 hr 09/18/17 09/18/17 09/19/17 19:57 21:44 06:10 Sodium Potassium Chloride Carbon Dioxide Anion Gap BUN Creatinine POC Glucometer 388 332 361 Random Glucose Calcium 09/19/17 09/19/17 09:45 11:46 Sodium 136 Potassium 5.4 H Chloride 95 L Carbon Dioxide 37 H Anion Gap 4 L BUN 33 H Creatinine 0.9 POC Glucometer 399 Random Glucose 457 H* Calcium 9.0 Problem List - Problems (1) CHF (congestive heart failure) Code(s): I50.9 - HEART FAILURE, UNSPECIFIED Qualifiers: Heart failure type: unspecified Heart failure chronicity: unspecified Qualified Code(s): I50.9 - Heart failure, unspecified (2) Pulmonary sarcoidosis Code(s): D86.0 - SARCOIDOSIS OF LUNG (3) Acute on chronic respiratory failure with hypoxia and hypercapnia Code(s): J96.21 - ACUTE AND CHRONIC RESPIRATORY FAILURE WITH HYPOXIA; J96.22 - ACUTE AND CHRONIC RESPIRATORY FAILURE WITH HYPERCAPNIA (4) COPD exacerbation Code(s): J44.1 - CHRONIC OBSTRUCTIVE PULMONARY DISEASE W (ACUTE) EXACERBATION (5) Cardiac sarcoidosis Code(s): 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 (6) Chest pain Code(s): R07.9 - CHEST PAIN, UNSPECIFIED Qualifiers: Chest pain type: unspecified Qualified Code(s): R07.9 - Chest pain, unspecified (7) Chronic diastolic CHF (congestive heart failure) Code(s): I50.32 - CHRONIC DIASTOLIC (CONGESTIVE) HEART FAILURE (8) ICD (implantable cardioverter-defibrillator) in place Code(s): Z95.810 - PRESENCE OF AUTOMATIC (IMPLANTABLE) CARDIAC DEFIBRILLATOR (9) Interstitial lung disease Code(s): J84.9 - INTERSTITIAL PULMONARY DISEASE, UNSPECIFIED (10) Obstructive sleep apnea Code(s): G47.33 - OBSTRUCTIVE SLEEP APNEA (ADULT) (PEDIATRIC) (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
--- NOTE | 2017-09-19 13:22 | PN ---
Progress Note (short form) - Note Progress Note: sitting up in bed drowsy / although mid day states she is drowsy all the time Vital Signs Period Temp Pulse Resp BP Sys/Londono Pulse Ox Last 24 Hr 97.4 F-98.2 F 71-91 16-20 104-119/64-75 100 supple heart S1/S2 lungs bilat fine crackles through out abd soft ext +1 edema less than prior day CBC, BMP 09/17/17 07:00 09/17/17 07:05 Active Medications Albuterol Sulfate (Ventolin 0.083% Nebulizer Soln -) 1 amp NEB Q4H PRN PRN Reason: SHORT OF BREATH/WHEEZING Last Admin: 09/17/17 16:18 Dose: 1 amp Apixaban (Eliquis -) 2.5 mg PO BID [facility] Last Admin: 09/18/17 09:15 Dose: 2.5 mg Arformoterol Tartrate (Brovana (Restricted To Pulmonology/Resp) -) 1 amp NEB RBID [facility] Last Admin: 09/18/17 08:05 Dose: 1 amp Diltiazem HCl (Cardizem -) 30 mg PO TID [facility] Last Admin: 09/18/17 06:20 Dose: 30 mg Furosemide (Lasix Injection -) 40 mg IVPUSH DAILY [facility] Last Admin: 09/18/17 09:14 Dose: 40 mg Insulin Aspart (Novolog Vial Sliding Scale -) 1 vial SQ [facility]; Protocol Last Admin: 09/18/17 06:20 Dose: 6 unit Insulin Detemir (Levemir Vial) 50 units SQ [facility] Last Admin: 09/17/17 21:35 Dose: 50 units Lisinopril (Prinivil) 10 mg PO DAILY [facility] Last Admin: 09/18/17 09:14 Dose: 10 mg Methylprednisolone Sodium Succinate (Solu-Medrol -) 40 mg IVPUSH Q8H-IV [facility] Last Admin: 09/18/17 09:15 Dose: 40 mg Metoclopramide HCl (Reglan -) 5 mg PO TID [facility] Last Admin: 09/18/17 06:20 Dose: 5 mg Montelukast Sodium (Singulair -) 10 mg PO HS [facility] Last Admin: 09/17/17 21:33 Dose: 10 mg Morphine Sulfate (Ms Contin -) 15 mg PO BID [facility] Last Admin: 09/18/17 09:15 Dose: 15 mg Nystatin (Nystatin Oral Suspension -) 100,000 units PO Q6HPO [facility] Last Admin: 09/18/17 06:23 Dose: Not Given Pantoprazole Sodium (Protonix -) 40 mg PO HS [facility] Last Admin: 09/17/17 21:33 Dose: 40 mg Pregabalin (Lyrica -) 75 mg PO BID [facility] Last Admin: 09/18/17 09:15 Dose: 75 mg Senna (Senna -) 1 tab PO [facility] Last Admin: 09/17/17 21:33 Dose: 1 tab Sodium Chloride ([place] Nasal [place] -) 2 spray NS BID [facility] Last Admin: 09/18/17 09:17 Dose: 2 spray Tiotropium [place] (Spiriva -) 1 puff IH DAILY [facility] Last Admin: 09/18/17 09:15 Dose: 1 puff # Dyspnea ILD sarcoid lung / COPD / component of CHF -- recent d/c of diuretic on last hospitalization appreciate Cardio / Pulmonary follow up improved with diuresis how ever may be experiencing symptomatic hypotension will need to trend BP continue steroids / nebulizer / O2 depended / BiPap over night and PRN steroid dependant 2/2 to Sarcoid -- Cardiac and Pulmonary Problem List - Problems (1) Pulmonary sarcoidosis Code(s): D86.0 - SARCOIDOSIS OF LUNG (2) COPD (chronic obstructive pulmonary disease) Code(s): J44.9 - CHRONIC OBSTRUCTIVE PULMONARY DISEASE, UNSPECIFIED (3) CHF (congestive heart failure) Code(s): I50.9 - HEART FAILURE, UNSPECIFIED Qualifiers: Heart failure type: unspecified Heart failure chronicity: unspecified Qualified Code(s): I50.9 - Heart failure, unspecified (4) Cardiac sarcoidosis Code(s): 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 (5) Chronic diastolic CHF (congestive heart failure) Code(s): I50.32 - CHRONIC DIASTOLIC (CONGESTIVE) HEART FAILURE (6) Chronic low back pain Code(s): M54.5 - LOW BACK PAIN; G89.29 - OTHER CHRONIC PAIN (7) Diabetes mellitus Code(s): E11.9 - TYPE 2 DIABETES MELLITUS WITHOUT COMPLICATIONS Qualifiers: Diabetes mellitus type: type 2 Diabetes mellitus complication status: without complication (8) ICD (implantable cardioverter-defibrillator) in place Code(s): Z95.810 - PRESENCE OF AUTOMATIC (IMPLANTABLE) CARDIAC DEFIBRILLATOR (9) Multifocal atrial tachycardia Code(s): I47.1 - SUPRAVENTRICULAR TACHYCARDIA (10) Obstructive sleep apnea Code(s): G47.33 - OBSTRUCTIVE SLEEP APNEA (ADULT) (PEDIATRIC) (11) Allergy to multiple antibiotics Code(s): Z88.1 - ALLERGY STATUS TO OTHER ANTIBIOTIC AGENTS STATUS (12) Hypercarbia Code(s): R06.89 - OTHER ABNORMALITIES OF BREATHING (13) Oxygen dependent Code(s): Z99.81 - DEPENDENCE ON SUPPLEMENTAL OXYGEN (14) PHT (pulmonary hypertension) Code(s): I27.20 - PULMONARY HYPERTENSION, UNSPECIFIED (15) Rapid atrial fibrillation Code(s): I48.91 - UNSPECIFIED ATRIAL FIBRILLATION (16) Back pain Code(s): M54.9 - DORSALGIA, UNSPECIFIED Qualifiers: Back pain location: low back pain Chronicity: acute Back pain laterality : bilateral Sciatica presence: without sciatica Qualified Code(s): M54.5 - Low back pain
--- NOTE | 2017-09-19 13:42 | PN ---
Progress Note (short form) - Note Progress Note: sitting up in bed drowsy states she is drowsy all the time no distress / no cp Vital Signs Period Temp Pulse Resp BP Sys/[place] Pulse Ox Last 24 Hr 97.4 F-98.2 F 71-91 16-20 104-119/64-75 100 supple heart S1/S2 lungs bilat fine crackles through out abd soft ext no edema CBC, BMP 09/17/17 07:00 09/19/17 09:45 Active Medications Albuterol Sulfate (Ventolin 0.083% Nebulizer Soln -) 1 amp NEB Q4H PRN PRN Reason: SHORT OF BREATH/WHEEZING Last Admin: 09/19/17 06:17 Dose: 1 amp Apixaban (Eliquis -) 2.5 mg PO BID [facility] Last Admin: 09/19/17 11:05 Dose: 2.5 mg Arformoterol Tartrate (Brovana (Restricted To Pulmonology/Resp) -) 1 amp NEB RBID [facility] Last Admin: 09/19/17 08:00 Dose: 1 amp Diltiazem HCl (Cardizem -) 30 mg PO TID [facility] Last Admin: 09/19/17 06:17 Dose: 30 mg Furosemide (Lasix -) 40 mg PO BID@0600,1400 [facility] Insulin Aspart (Novolog Vial Sliding Scale -) 1 vial SQ [facility]; Protocol Last Admin: 09/19/17 11:49 Dose: 8 unit Insulin Detemir (Levemir Vial) 50 units SQ [facility] Last Admin: 09/18/17 21:47 Dose: 50 units Lisinopril (Prinivil) 10 mg PO DAILY [facility] Last Admin: 09/19/17 11:06 Dose: 10 mg Methylprednisolone Sodium Succinate (Solu-Medrol -) 40 mg IVPUSH DAILY [facility] Metoclopramide HCl (Reglan -) 5 mg PO TID [facility] Last Admin: 09/19/17 06:17 Dose: 5 mg Montelukast Sodium (Singulair -) 10 mg PO HS [facility] Last Admin: 09/18/17 21:47 Dose: 10 mg Morphine Sulfate (Ms Contin -) 15 mg PO BID [facility] Last Admin: 09/19/17 11:05 Dose: 15 mg Nystatin (Nystatin Oral Suspension -) 100,000 units PO Q6HPO [facility] Last Admin: 09/19/17 11:06 Dose: 100,000 units Pantoprazole Sodium (Protonix -) 40 mg PO HS [facility] Last Admin: 09/18/17 21:47 Dose: 40 mg Pregabalin (Lyrica -) 75 mg PO BID [facility] Last Admin: 09/19/17 11:07 Dose: 75 mg Senna (Senna -) 1 tab PO HS [facility] Last Admin: 09/18/17 21:47 Dose: 1 tab Sodium Chloride ([place] Nasal [place] -) 2 spray NS BID [facility] Last Admin: 09/19/17 11:07 Dose: 2 spray Tiotropium [place] (Spiriva -) 1 puff IH DAILY [facility] Last Admin: 09/19/17 11:06 Dose: 1 puff # Dyspnea ILD/ Fibroid - sarcoid lung / COPD / component of CHF -- recent d/c of diuretic on last hospitalization now resumed appreciate Cardio / Pulmonary follow up improved with diuresis how ever may be experiencing symptomatic hypotension will need to trend BP / continue steroids / nebulizer / O2 depended / BiPap over night and PRN steroid dependant 2/2 to Sarcoid -- Cardiac and Pulmonary # 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 chronic diastolic HF # Pulmonay HTN # OSVALDO # HTN # HLD # Hep C # DVT -- 2017 -- on NOAC # DM II HgA1c 9.9 continue FS with sliding scale adjust insulin Problem List - Problems (1) Pulmonary sarcoidosis Code(s): D86.0 - SARCOIDOSIS OF LUNG (2) COPD (chronic obstructive pulmonary disease) Code(s): J44.9 - CHRONIC OBSTRUCTIVE PULMONARY DISEASE, UNSPECIFIED (3) CHF (congestive heart failure) Code(s): I50.9 - HEART FAILURE, UNSPECIFIED Qualifiers: Heart failure type: unspecified Heart failure chronicity: unspecified Qualified Code(s): I50.9 - Heart failure, unspecified (4) Cardiac sarcoidosis Code(s): 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 (5) Chronic diastolic CHF (congestive heart failure) Code(s): I50.32 - CHRONIC DIASTOLIC (CONGESTIVE) HEART FAILURE (6) Chronic low back pain Code(s): M54.5 - LOW BACK PAIN; G89.29 - OTHER CHRONIC PAIN (7) Diabetes mellitus Code(s): E11.9 - TYPE 2 DIABETES MELLITUS WITHOUT COMPLICATIONS Qualifiers: Diabetes mellitus type: type 2 Diabetes mellitus complication status: without complication (8) ICD (implantable cardioverter-defibrillator) in place Code(s): Z95.810 - PRESENCE OF AUTOMATIC (IMPLANTABLE) CARDIAC DEFIBRILLATOR (9) Multifocal atrial tachycardia Code(s): I47.1 - SUPRAVENTRICULAR TACHYCARDIA (10) Obstructive sleep apnea Code(s): G47.33 - OBSTRUCTIVE SLEEP APNEA (ADULT) (PEDIATRIC) (11) Allergy to multiple antibiotics Code(s): Z88.1 - ALLERGY STATUS TO OTHER ANTIBIOTIC AGENTS STATUS (12) Hypercarbia Code(s): R06.89 - OTHER ABNORMALITIES OF BREATHING (13) Oxygen dependent Code(s): Z99.81 - DEPENDENCE ON SUPPLEMENTAL OXYGEN (14) PHT (pulmonary hypertension) Code(s): I27.20 - PULMONARY HYPERTENSION, UNSPECIFIED (15) Rapid atrial fibrillation Code(s): I48.91 - UNSPECIFIED ATRIAL FIBRILLATION (16) Back pain Code(s): M54.9 - DORSALGIA, UNSPECIFIED Qualifiers: Back pain location: low back pain Chronicity: acute Back pain laterality : bilateral Sciatica presence: without sciatica Qualified Code(s): M54.5 - Low back pain
[2017-09-19] MEDS: FUROSEMIDE 40 MG TABLET (FP) PO SCH (16:04)
[2017-09-19] MEDS: PANTOPRAZOLE 40 MG TABLET (FP) PO SCH (22:02)
[2017-09-19] MEDS: MONTELUKAST NA 10 MG TABLET PO SCH (22:02)
[2017-09-19] MEDS: SENNOSIDES 8.6MG TABLET (FP) PO SCH (22:03)
[2017-09-19] MEDS: INSULIN (LEVEMIR) 100 UNITS/ML UNITS SQ SCH (22:04)
[2017-09-19] MEDS ORDERED: PT OWN MED DRAWER 7, Y5N ONE ×2 (22:07→22:13)
[2017-09-20] MEDS: NYSTATIN 500,000 UNITS/5 ML SUSPENSION PO SCH ×4 (00:24→18:03)
[2017-09-20] MEDS ORDERED: INSULIN (NOVOLOG) ASPART 100 UNITS/ML 10ML VIAL SQ ONE (00:45)
[2017-09-20] MEDS ORDERED: INSULIN (NOVOLOG) ASPART 100 UNITS/ML 10ML VIAL SQ PRN (01:36)
[2017-09-20] MEDS: FUROSEMIDE 40 MG TABLET (FP) PO SCH ×2 (06:13→14:01)
[2017-09-20] MEDS: dilTIAZem HCL 30 MG TABLET (FP) PO SCH ×3 (06:13→21:41)
[2017-09-20] MEDS: METOCLOPRAMIDE HCL 10 MG TABLET (FP) PO SCH ×3 (06:13→21:42)
[2017-09-20] MEDS: INSULIN SLIDING SCALE (NOVOLOG) 1 VIAL SQ SCH ×4 (06:14→21:43)
[2017-09-20 07:35] LABS: ALBUMIN 2.8 g/dl (3.4-5.0); ANION GAP 3 (8-16); BLOOD UREA NITROGEN 29 mg/dL (7-18); CHLORIDE 95 mmol/L (98-107); CO2 41 mmol/L (21-32); GLUCOSE,RANDOM 130 mg/dL (74-106); POTASSIUM 4.8 mmol/L (3.5-5.1); SODIUM 139 mmol/L (136-145)
[2017-09-20 07:49] LABS: ALK PHOS 84 U/L (45-117); BILIRUBIN,TOTAL 0.2 mg/dL (0.2-1.0); CALCIUM 9.2 mg/dL (8.5-10.1); CREATININE 0.7 mg/dL (0.55-1.02); SGOT/AST 10 U/L (15-37); SGPT/ALT 23 U/L (12-78); TOT PROT 6.7 g/dl (6.4-8.2)
[2017-09-20 08:04] LABS: BASO % 0.2 % (0-2.0); HEMOGLOBIN 9.3 GM/dL (10.7-15.3); MCH 28.3 pg (25.7-33.7); MEAN CELL VOLUME 85.8 fl (80-96); MEAN PLT VOLUME 7.4 fl (7.5-11.1); MONO % 5.4 % (3.8-10.2); NEUT % 84.4 % (42.8-82.8); PLATELET COUNT 317 K/MM3 (134-434); RBC 3.27 M/mm3 (3.60-5.2); RDW 16.2 % (11.6-15.6); WHITE BLOOD COUNT 10.2 K/mm3 (4.0-10.0)
[2017-09-20] MEDS: ARFORMOTEROL TARTRATE 15 MCG/2 ML VIAL NEB SCH ×2 (08:08→20:14)
--- NOTE | 2017-09-20 08:39 | PN ---
Progress Note, Physician Chief Complaint: alert, no acute distress Wants to go home - Current Medication List Current Medications: Active Medications Albuterol Sulfate (Ventolin 0.083% Nebulizer Soln -) 1 amp NEB Q4H PRN PRN Reason: SHORT OF BREATH/WHEEZING Last Admin: 09/19/17 17:22 Dose: 1 amp Apixaban (Eliquis -) 2.5 mg PO BID [facility] Last Admin: 09/19/17 22:04 Dose: 2.5 mg Arformoterol Tartrate (Brovana (Restricted To Pulmonology/Resp) -) 1 amp NEB RBID [facility] Last Admin: 09/20/17 08:08 Dose: 1 amp Diltiazem HCl (Cardizem -) 30 mg PO TID [facility] Last Admin: 09/20/17 06:13 Dose: 30 mg Furosemide (Lasix -) 40 mg PO BID@0600,1400 [facility] Last Admin: 09/20/17 06:13 Dose: 40 mg Insulin Aspart (Novolog Vial Sliding Scale -) 1 vial SQ [facility]; Protocol Last Admin: 09/20/17 06:14 Dose: Not Given Insulin Detemir (Levemir Vial) 50 units SQ [facility] Last Admin: 09/19/17 22:04 Dose: 50 units Lisinopril (Prinivil) 10 mg PO DAILY [facility] Last Admin: 09/19/17 11:06 Dose: 10 mg Methylprednisolone Sodium Succinate (Solu-Medrol -) 40 mg IVPUSH DAILY [facility] Metoclopramide HCl (Reglan -) 5 mg PO TID [facility] Last Admin: 09/20/17 06:13 Dose: 5 mg Montelukast Sodium (Singulair -) 10 mg PO [facility] Last Admin: 09/19/17 22:02 Dose: 10 mg Morphine Sulfate (Ms Contin -) 15 mg PO BID [facility] Last Admin: 09/19/17 22:02 Dose: 15 mg Nystatin (Nystatin Oral Suspension -) 100,000 units PO Q6HPO [facility] Last Admin: 09/20/17 05:53 Dose: Not Given Pantoprazole Sodium (Protonix -) 40 mg PO [facility] Last Admin: 09/19/17 22:02 Dose: 40 mg Pregabalin (Lyrica -) 75 mg PO BID [facility] Last Admin: 09/19/17 22:02 Dose: 75 mg Senna (Senna -) 1 tab PO HS [facility] Last Admin: 09/19/17 22:03 Dose: 1 tab Sodium Chloride ([place] Nasal [place] -) 2 spray NS BID [facility] Last Admin: 09/19/17 22:03 Dose: 2 spray Tiotropium [place] (Spiriva -) 1 puff IH DAILY [facility] Last Admin: 09/19/17 11:06 Dose: 1 puff - Objective Vital Signs: Vital Signs Temperature 98.2 F 09/20/17 08:33 Pulse Rate 86 09/20/17 08:33 Respiratory Rate 18 09/20/17 08:33 Blood Pressure 110/54 09/20/17 08:33 O2 Sat by Pulse Oximetry (%) 99 09/19/17 21:00 Constitutional: Yes: Calm Cardiovascular: Yes: Regular Rate and Rhythm Respiratory: Yes: Rhonchi Gastrointestinal: Yes: Soft (nontender) Edema: Yes Edema: LLE: Trace, RLE: Trace Neurological: Yes: Alert, Oriented ...Motor Strength: WNL Labs: CBC, BMP 09/20/17 06:15 09/20/17 06:15 Laboratory Tests 09/20/17 09/20/17 06:15 06:15 WBC 10.2 H MCV 85.8 Plt Count 317 D Sodium 139 Potassium 4.8 BUN 29 H Creatinine 0.7 - ....Imaging EKG: Image Reviewed (NSR, APCs. Self limited runs PAT.) Assessment/Plan IMP: Complicated, chronically ill, sedentary patient with long standing Sarcoidosis with pulmonary and cardiac involvement s/p ICD for VT and syncope several years ago; on NOAC therapy for LLE DVT diagnosed in 12/2016. Now readmitted with acute on chronic diastolic CHF in setting of interruption of diuretic therapy. Recent episode of severe epistaxis requiring ENT cauterization and Heme evaluation for Eliquis recommendations. REC: 1. On PO BID Lasix 2. Use short acting Cardizem as she has had episodes of hypotension with standing diuretic and extended release Cardizem in past. 3. Close outpt f/u of renal fxn and electrolytes. 4. To continue Eliquis at Heme suggested dose.
[2017-09-20] MEDS ORDERED: methylPREDNISolone NA SUCC 40 MG/1 ML VIAL IVPUSH SCH (10:00)
[2017-09-20] MEDS: PREGABALIN 75 MG CAPSULE PO SCH ×2 (10:22→21:41)
[2017-09-20] MEDS: APIXABAN 2.5 MG TABLET PO SCH ×2 (10:22→21:42)
[2017-09-20] MEDS: LISINOPRIL 10 MG TABLET (FP) PO SCH (10:22)
[2017-09-20] MEDS: morphine SO4 SUSTAINED ACTING 15 MG TABLET.SA PO SCH ×2 (10:22→21:42)
[2017-09-20] MEDS: TIOTROPIUM BROMIDE 18 MCG CAPSULES IH SCH (10:22)
[2017-09-20] MEDS ORDERED: PT OWN MED DRAWER 7, Y5N ONE (10:30)
[2017-09-20] MEDS: SODIUM CHLORIDE NASAL SPRAY 44 ML BOTTLE NS SCH ×2 (10:32→21:43)
--- NOTE | 2017-09-20 10:32 | PN ---
Progress Note, Physician History of Present Illness: pulmonary alert,feeling better,less dyspneic - Current Medication List Current Medications: Active Medications Albuterol Sulfate (Ventolin 0.083% Nebulizer Soln -) 1 amp NEB Q4H PRN PRN Reason: SHORT OF BREATH/WHEEZING Last Admin: 09/19/17 17:22 Dose: 1 amp Apixaban (Eliquis -) 2.5 mg PO BID [facility] Last Admin: 09/19/17 22:04 Dose: 2.5 mg Arformoterol Tartrate (Brovana (Restricted To Pulmonology/Resp) -) 1 amp NEB RBID [facility] Last Admin: 09/20/17 08:08 Dose: 1 amp Diltiazem HCl (Cardizem -) 30 mg PO TID [facility] Last Admin: 09/20/17 06:13 Dose: 30 mg Furosemide (Lasix -) 40 mg PO BID@0600,1400 [facility] Last Admin: 09/20/17 06:13 Dose: 40 mg Insulin Aspart (Novolog Vial Sliding Scale -) 1 vial SQ [facility]; Protocol Last Admin: 09/20/17 06:14 Dose: Not Given Insulin Detemir (Levemir Vial) 50 units SQ [facility] Last Admin: 09/19/17 22:04 Dose: 50 units Lisinopril (Prinivil) 10 mg PO DAILY [facility] Last Admin: 09/19/17 11:06 Dose: 10 mg Methylprednisolone Sodium Succinate (Solu-Medrol -) 40 mg IVPUSH DAILY [facility] Metoclopramide HCl (Reglan -) 5 mg PO TID [facility] Last Admin: 09/20/17 06:13 Dose: 5 mg Montelukast Sodium (Singulair -) 10 mg PO [facility] Last Admin: 09/19/17 22:02 Dose: 10 mg Morphine Sulfate (Ms Contin -) 15 mg PO BID [facility] Last Admin: 09/19/17 22:02 Dose: 15 mg Nystatin (Nystatin Oral Suspension -) 100,000 units PO Q6HPO [facility] Last Admin: 09/20/17 05:53 Dose: Not Given Pantoprazole Sodium (Protonix -) 40 mg PO [facility] Last Admin: 09/19/17 22:02 Dose: 40 mg Pregabalin (Lyrica -) 75 mg PO BID [facility] Last Admin: 09/19/17 22:02 Dose: 75 mg Senna (Senna -) 1 tab PO HS [facility] Last Admin: 09/19/17 22:03 Dose: 1 tab Sodium Chloride ([place] Nasal [place] -) 2 spray NS BID [facility] Last Admin: 09/19/17 22:03 Dose: 2 spray Tiotropium [place] (Spiriva -) 1 puff IH DAILY [facility] Last Admin: 09/19/17 11:06 Dose: 1 puff - Objective Vital Signs: Vital Signs Temperature 98.2 F 09/20/17 08:33 Pulse Rate 86 09/20/17 08:33 Respiratory Rate 18 09/20/17 08:33 Blood Pressure 110/54 09/20/17 08:33 O2 Sat by Pulse Oximetry (%) 99 09/19/17 21:00 Constitutional: Yes: Well Nourished, Calm Eyes: Yes: WNL HENT: Yes: WNL Neck: Yes: WNL Cardiovascular: Yes: Regular Rate and Rhythm, S1, S2 Respiratory: Yes: Rales ( bilateral rales) Gastrointestinal: Yes: Normal Bowel Sounds, Soft Extremities: Yes: WNL Edema: No Labs: CBC, BMP 09/20/17 06:15 09/20/17 06:15 Problem List - Problems (1) CHF (congestive heart failure) Code(s): I50.9 - HEART FAILURE, UNSPECIFIED Qualifiers: Heart failure type: unspecified Heart failure chronicity: unspecified Qualified Code(s): I50.9 - Heart failure, unspecified (2) Pulmonary sarcoidosis Code(s): D86.0 - SARCOIDOSIS OF LUNG (3) Acute on chronic respiratory failure with hypoxia and hypercapnia Code(s): J96.21 - ACUTE AND CHRONIC RESPIRATORY FAILURE WITH HYPOXIA; J96.22 - ACUTE AND CHRONIC RESPIRATORY FAILURE WITH HYPERCAPNIA (4) COPD exacerbation Code(s): J44.1 - CHRONIC OBSTRUCTIVE PULMONARY DISEASE W (ACUTE) EXACERBATION (5) Cardiac sarcoidosis Code(s): 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 (6) Chest pain Code(s): R07.9 - CHEST PAIN, UNSPECIFIED Qualifiers: Chest pain type: unspecified Qualified Code(s): R07.9 - Chest pain, unspecified (7) Chronic diastolic CHF (congestive heart failure) Code(s): I50.32 - CHRONIC DIASTOLIC (CONGESTIVE) HEART FAILURE (8) ICD (implantable cardioverter-defibrillator) in place Code(s): Z95.810 - PRESENCE OF AUTOMATIC (IMPLANTABLE) CARDIAC DEFIBRILLATOR (9) Interstitial lung disease Code(s): J84.9 - INTERSTITIAL PULMONARY DISEASE, UNSPECIFIED (10) Obstructive sleep apnea Code(s): G47.33 - OBSTRUCTIVE SLEEP APNEA (ADULT) (PEDIATRIC) (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 Assessment/Plan IMP ACUTE ON CHRONIC HYPOXEMIC/HYPERCAPNEIC RESPIRATORY FAILURE ADVANCED SARCOIDOSIS WITH ADVANCE ILD/FIBROSIS CARDIAC SARCOID S/P AICD PULMONARY HTN DIASTOLIC HF CP OSAS HTN HLD H/O HEP C H/O DVT PLAN LASIX PREDNISONE O2 BIPAP AT NIGHT AND PRN INHALED BRONCHODILATORS DAILY WTS F/U CHEST X-RAY STRICT I+OS CIARRAQUIS DR EUBANKS Problem List - Problems (1) CHF (congestive heart failure) Code(s): I50.9 - HEART FAILURE, UNSPECIFIED Qualifiers: Heart failure type: unspecified Heart failure chronicity: unspecified Qualified Code(s): I50.9 - Heart failure, unspecified (2) Pulmonary sarcoidosis Code(s): D86.0 - SARCOIDOSIS OF LUNG (3) Acute on chronic respiratory failure with hypoxia and hypercapnia Code(s): J96.21 - ACUTE AND CHRONIC RESPIRATORY FAILURE WITH HYPOXIA; J96.22 - ACUTE AND CHRONIC RESPIRATORY FAILURE WITH HYPERCAPNIA (4) COPD exacerbation Code(s): J44.1 - CHRONIC OBSTRUCTIVE PULMONARY DISEASE W (ACUTE) EXACERBATION (5) Cardiac sarcoidosis Code(s): 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 (6) Chest pain Code(s): R07.9 - CHEST PAIN, UNSPECIFIED Qualifiers: Chest pain type: unspecified Qualified Code(s): R07.9 - Chest pain, unspecified (7) Chronic diastolic CHF (congestive heart failure) Code(s): I50.32 - CHRONIC DIASTOLIC (CONGESTIVE) HEART FAILURE (8) ICD (implantable cardioverter-defibrillator) in place Code(s): Z95.810 - PRESENCE OF AUTOMATIC (IMPLANTABLE) CARDIAC DEFIBRILLATOR (9) Interstitial lung disease Code(s): J84.9 - INTERSTITIAL PULMONARY DISEASE, UNSPECIFIED (10) Obstructive sleep apnea Code(s): G47.33 - OBSTRUCTIVE SLEEP APNEA (ADULT) (PEDIATRIC) (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
[2017-09-20] MEDS: MONTELUKAST NA 10 MG TABLET PO SCH (21:41)
[2017-09-20] MEDS: PANTOPRAZOLE 40 MG TABLET (FP) PO SCH (21:41)
[2017-09-20] MEDS: INSULIN (LEVEMIR) 100 UNITS/ML UNITS SQ SCH (21:43)
--- NOTE | 2017-09-20 22:00 | PN ---
Progress Note (short form) - Note Progress Note: sitting up in bed drowsy no distress / no cp Vital Signs Period Temp Pulse Resp BP Sys/[place] Pulse Ox Last 24 Hr 97.6 F-98.6 F 72-101 18-20 98-111/54-67 97 supple heart S1/S2 lungs bilat fine crackles through out abd soft ext no edema CBC, BMP 09/20/17 06:15 09/20/17 06:15 Active Medications Albuterol Sulfate (Ventolin 0.083% Nebulizer Soln -) 1 amp NEB Q4H PRN PRN Reason: SHORT OF BREATH/WHEEZING Last Admin: 09/19/17 17:22 Dose: 1 amp Apixaban (Eliquis -) 2.5 mg PO BID [facility] Last Admin: 09/20/17 21:42 Dose: 2.5 mg Arformoterol Tartrate (Brovana (Restricted To Pulmonology/Resp) -) 1 amp NEB RBID [facility] Last Admin: 09/20/17 20:14 Dose: 1 amp Diltiazem HCl (Cardizem -) 30 mg PO TID [facility] Last Admin: 09/20/17 21:41 Dose: 30 mg Furosemide (Lasix -) 40 mg PO DAILY [facility] Insulin Aspart (Novolog Vial Sliding Scale -) 1 vial SQ [facility]; Protocol Last Admin: 09/20/17 21:43 Dose: 8 unit Insulin Detemir (Levemir Vial) 50 units SQ [facility] Last Admin: 09/20/17 21:43 Dose: 50 units Lisinopril (Prinivil) 10 mg PO DAILY [facility] Last Admin: 09/20/17 10:22 Dose: 10 mg Methylprednisolone Sodium Succinate (Solu-Medrol -) 40 mg IVPUSH DAILY [facility] Stop: 09/20/17 22:00 Last Admin: 09/20/17 10:22 Dose: 40 mg Metoclopramide HCl (Reglan -) 5 mg PO TID [facility] Last Admin: 09/20/17 21:42 Dose: 5 mg Montelukast Sodium (Singulair -) 10 mg PO HS [facility] Last Admin: 09/20/17 21:41 Dose: 10 mg Morphine Sulfate (Ms Contin -) 15 mg PO BID [facility] Last Admin: 09/20/17 21:42 Dose: 15 mg Nystatin (Nystatin Oral Suspension -) 100,000 units PO Q6HPO [facility] Last Admin: 09/20/17 18:03 Dose: Not Given Pantoprazole Sodium (Protonix -) 40 mg PO HS [facility] Last Admin: 09/20/17 21:41 Dose: 40 mg Prednisone (Deltasone -) 40 mg PO DAILY [facility] Pregabalin (Lyrica -) 75 mg PO BID [facility] Last Admin: 09/20/17 21:41 Dose: 75 mg Senna (Senna -) 1 tab PO HS [facility] Last Admin: 09/19/17 22:03 Dose: 1 tab Sodium Chloride ([place] Nasal [place] -) 2 spray NS BID [facility] Last Admin: 09/20/17 21:43 Dose: 2 spray Tiotropium [place] (Spiriva -) 1 puff IH DAILY [facility] Last Admin: 09/20/17 10:22 Dose: 1 puff # Dyspnea ILD/ Fibroid - sarcoid lung / COPD / component of CHF -- recent d/c of diuretic on last hospitalization now resumed appreciate Cardio / Pulmonary follow up improved with diuresis how ever may be experiencing symptomatic hypotension will need to trend BP / continue steroids / nebulizer / O2 depended / BiPap over night and PRN steroid dependant 2/2 to Sarcoid -- Cardiac and Pulmonary taper IV steroids -- aim to PO baseline 30mg /day # 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 chronic diastolic HF # Pulmonay HTN # OSVALDO # HTN # HLD # Hep C # DVT -- 2016 -- on NOAC # DM II HgA1c 9.9 continue FS with sliding scale adjust insulin Problem List - Problems (1) Pulmonary sarcoidosis Code(s): D86.0 - SARCOIDOSIS OF LUNG (2) COPD (chronic obstructive pulmonary disease) Code(s): J44.9 - CHRONIC OBSTRUCTIVE PULMONARY DISEASE, UNSPECIFIED (3) CHF (congestive heart failure) Code(s): I50.9 - HEART FAILURE, UNSPECIFIED Qualifiers: Heart failure type: unspecified Heart failure chronicity: unspecified Qualified Code(s): I50.9 - Heart failure, unspecified (4) Cardiac sarcoidosis Code(s): 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 (5) Chronic diastolic CHF (congestive heart failure) Code(s): I50.32 - CHRONIC DIASTOLIC (CONGESTIVE) HEART FAILURE (6) Chronic low back pain Code(s): M54.5 - LOW BACK PAIN; G89.29 - OTHER CHRONIC PAIN (7) Diabetes mellitus Code(s): E11.9 - TYPE 2 DIABETES MELLITUS WITHOUT COMPLICATIONS Qualifiers: Diabetes mellitus type: type 2 Diabetes mellitus complication status: without complication (8) ICD (implantable cardioverter-defibrillator) in place Code(s): Z95.810 - PRESENCE OF AUTOMATIC (IMPLANTABLE) CARDIAC DEFIBRILLATOR (9) Multifocal atrial tachycardia Code(s): I47.1 - SUPRAVENTRICULAR TACHYCARDIA (10) Obstructive sleep apnea Code(s): G47.33 - OBSTRUCTIVE SLEEP APNEA (ADULT) (PEDIATRIC) (11) Allergy to multiple antibiotics Code(s): Z88.1 - ALLERGY STATUS TO OTHER ANTIBIOTIC AGENTS STATUS (12) Hypercarbia Code(s): R06.89 - OTHER ABNORMALITIES OF BREATHING (13) Oxygen dependent Code(s): Z99.81 - DEPENDENCE ON SUPPLEMENTAL OXYGEN (14) PHT (pulmonary hypertension) Code(s): I27.20 - PULMONARY HYPERTENSION, UNSPECIFIED (15) Rapid atrial fibrillation Code(s): I48.91 - UNSPECIFIED ATRIAL FIBRILLATION (16) Back pain Code(s): M54.9 - DORSALGIA, UNSPECIFIED Qualifiers: Back pain location: low back pain Chronicity: acute Back pain laterality : bilateral Sciatica presence: without sciatica Qualified Code(s): M54.5 - Low back pain
[2017-09-20] MEDS: SENNOSIDES 8.6MG TABLET (FP) PO SCH (23:23)
[2017-09-21] MEDS: NYSTATIN 500,000 UNITS/5 ML SUSPENSION PO SCH ×4 (02:58→17:36)
[2017-09-21] MEDS: INSULIN SLIDING SCALE (NOVOLOG) 1 VIAL SQ SCH ×4 (06:13→22:45)
[2017-09-21] MEDS: dilTIAZem HCL 30 MG TABLET (FP) PO SCH ×3 (06:13→22:39)
[2017-09-21] MEDS: METOCLOPRAMIDE HCL 10 MG TABLET (FP) PO SCH ×3 (06:14→22:41)
[2017-09-21] MEDS: ARFORMOTEROL TARTRATE 15 MCG/2 ML VIAL NEB SCH ×2 (08:00→19:22)
[2017-09-21 08:09] LABS: CHLORIDE 92 mmol/L (98-107); SODIUM 135 mmol/L (136-145)
[2017-09-21 08:14] LABS: BASO % 0.4 % (0-2.0); EOS % 0.1 % (0-4.5); HEMATOCRIT 32.7 % (32.4-45.2); HEMOGLOBIN 10.8 GM/dL (10.7-15.3); LYMPH % 10.1 % (8-40); MCH 27.8 pg (25.7-33.7); MCHC 32.8 g/dl (32.0-36.0); MEAN CELL VOLUME 84.5 fl (80-96); MEAN PLT VOLUME 8.2 fl (7.5-11.1); MONO % 4.1 % (3.8-10.2); NEUT % 85.3 % (42.8-82.8); PLATELET COUNT 277 K/MM3 (134-434); RBC 3.87 M/mm3 (3.60-5.2); RDW 16.6 % (11.6-15.6); WHITE BLOOD COUNT 13.6 K/mm3 (4.0-10.0)
--- NOTE | 2017-09-21 08:46 | PN ---
Progress Note, Physician Chief Complaint: Seen and examined She continues to feel improved. Periods of lowish BP noted yesterday. TELE: no sig change. NSR, frequent PACS and periods of self limited AT - Current Medication List Current Medications: Active Medications Albuterol Sulfate (Ventolin 0.083% Nebulizer Soln -) 1 amp NEB Q4H PRN PRN Reason: SHORT OF BREATH/WHEEZING Last Admin: 09/19/17 17:22 Dose: 1 amp Apixaban (Eliquis -) 2.5 mg PO BID [facility] Last Admin: 09/20/17 21:42 Dose: 2.5 mg Arformoterol Tartrate (Brovana (Restricted To Pulmonology/Resp) -) 1 amp NEB RBID [facility] Last Admin: 09/21/17 08:00 Dose: 1 amp Diltiazem HCl (Cardizem -) 30 mg PO TID [facility] Last Admin: 09/21/17 06:13 Dose: 30 mg Furosemide (Lasix -) 40 mg PO DAILY [facility] Insulin Aspart (Novolog Vial Sliding Scale -) 1 vial SQ [facility]; Protocol Last Admin: 09/21/17 06:13 Dose: Not Given Insulin Detemir (Levemir Vial) 50 units SQ [facility] Last Admin: 09/20/17 21:43 Dose: 50 units Lisinopril (Prinivil) 10 mg PO DAILY [facility] Last Admin: 09/20/17 10:22 Dose: 10 mg Metoclopramide HCl (Reglan -) 5 mg PO TID [facility] Last Admin: 09/21/17 06:14 Dose: 5 mg Montelukast Sodium (Singulair -) 10 mg PO [facility] Last Admin: 09/20/17 21:41 Dose: 10 mg Morphine Sulfate (Ms Contin -) 15 mg PO BID [facility] Last Admin: 09/20/17 21:42 Dose: 15 mg Nystatin (Nystatin Oral Suspension -) 100,000 units PO Q6HPO [facility] Last Admin: 09/21/17 06:13 Dose: Not Given Pantoprazole Sodium (Protonix -) 40 mg PO [facility] Last Admin: 09/20/17 21:41 Dose: 40 mg Prednisone (Deltasone -) 40 mg PO DAILY [facility] Pregabalin (Lyrica -) 75 mg PO BID [facility] Last Admin: 09/20/17 21:41 Dose: 75 mg Senna (Senna -) 1 tab PO HS [facility] Last Admin: 09/20/17 23:23 Dose: Not Given Sodium Chloride ([place] Nasal [place] -) 2 spray NS BID [facility] Last Admin: 09/20/17 21:43 Dose: 2 spray Tiotropium [place] (Spiriva -) 1 puff IH DAILY [facility] Last Admin: 09/20/17 10:22 Dose: 1 puff - Objective Vital Signs: Vital Signs Temperature 97.6 F 09/21/17 05:57 Pulse Rate 88 09/21/17 05:57 Respiratory Rate 20 09/21/17 05:57 Blood Pressure 122/68 09/21/17 05:57 O2 Sat by Pulse Oximetry (%) 99 09/20/17 21:00 Constitutional: Yes: No Distress Eyes: Yes: Conjunctiva Clear Cardiovascular: Yes: Regular Rate and Rhythm Respiratory: Yes: Rhonchi ("dry" rales scattered b/l; no wheezing) Gastrointestinal: Yes: Soft (non-tender) Edema: No Neurological: Yes: Alert, Oriented ...Motor Strength: WNL Labs: CBC, BMP 09/21/17 07:00 09/21/17 07:00 Laboratory Tests 09/21/17 09/21/17 07:00 07:00 RBC 3.87 Hgb 10.8 D Hct 32.7 D Plt Count Pending Sodium 135 L Chloride 92 L Carbon Dioxide Pending Anion Gap Pending BUN Pending Creatinine Pending Random Glucose Pending Calcium Pending Magnesium Pending - ....Imaging EKG: Image Reviewed Assessment/Plan IMP: Chronically ill patient with long standing Sarcoidosis with pulmonary and cardiac involvement s/p ICD for VT and syncope several years ago; on NOAC therapy for LLE DVT diagnosed in 12/2016. Now readmitted with acute on chronic diastolic CHF in setting of interruption of diuretic therapy. Recent episode of severe epistaxis requiring ENT cauterization and Heme evaluation for Eliquis recommendations. REC: 1. Maintenance dose Lasix decreased to 40mg PO daily due to recurrent intermittent relative hypotension. 2. Use short acting Cardizem as she has had episodes of hypotension with standing diuretic and extended release Cardizem in past. Being used to control her MAT and PAT, likely due to chronic lung disease and cardiac sarcoid. 3. Close outpt f/u of renal fxn and electrolytes. 4. To continue Eliquis at Heme recommended dose. D/C planning.
[2017-09-21 08:51] LABS: ANION GAP 10 (8-16); BLOOD UREA NITROGEN 32 mg/dL (7-18); CALCIUM 8.9 mg/dL (8.5-10.1); CO2 33 mmol/L (21-32); CREATININE 0.6 mg/dL (0.55-1.02); GLUCOSE,RANDOM 147 mg/dL (74-106); POTASSIUM 4.6 mmol/L (3.5-5.1)
[2017-09-21 08:52] LABS: MAGNESIUM 1.9 mg/dL (1.8-2.4)
[2017-09-21] MEDS: FUROSEMIDE 40 MG TABLET (FP) PO SCH (09:07)
[2017-09-21] MEDS: LISINOPRIL 10 MG TABLET (FP) PO SCH (09:08)
[2017-09-21] MEDS: morphine SO4 SUSTAINED ACTING 15 MG TABLET.SA PO SCH ×2 (09:08→22:39)
[2017-09-21] MEDS: predniSONE 20 MG TABLET (UD) PO SCH (09:08)
[2017-09-21] MEDS: TIOTROPIUM BROMIDE 18 MCG CAPSULES IH SCH (09:09)
[2017-09-21] MEDS: PREGABALIN 75 MG CAPSULE PO SCH ×2 (09:09→22:39)
[2017-09-21] MEDS: APIXABAN 2.5 MG TABLET PO SCH ×2 (09:10→22:39)
--- NOTE | 2017-09-21 10:30 | PN ---
Progress Note, Physician History of Present Illness: pulmonary alert,feeling better ,no distresson nasal cannula - Current Medication List Current Medications: Active Medications Albuterol Sulfate (Ventolin 0.083% Nebulizer Soln -) 1 amp NEB Q4H PRN PRN Reason: SHORT OF BREATH/WHEEZING Last Admin: 09/19/17 17:22 Dose: 1 amp Apixaban (Eliquis -) 2.5 mg PO BID [facility] Last Admin: 09/21/17 09:10 Dose: 2.5 mg Arformoterol Tartrate (Brovana (Restricted To Pulmonology/Resp) -) 1 amp NEB RBID [facility] Last Admin: 09/21/17 08:00 Dose: 1 amp Diltiazem HCl (Cardizem -) 30 mg PO TID [facility] Last Admin: 09/21/17 06:13 Dose: 30 mg Furosemide (Lasix -) 40 mg PO DAILY [facility] Last Admin: 09/21/17 09:07 Dose: 40 mg Insulin Aspart (Novolog Vial Sliding Scale -) 1 vial SQ [facility]; Protocol Last Admin: 09/21/17 06:13 Dose: Not Given Insulin Detemir (Levemir Vial) [address] [facility] Last Admin: 09/20/17 21:43 Dose: 50 units Lisinopril (Prinivil) 10 mg PO DAILY [facility] Last Admin: 09/21/17 09:08 Dose: 10 mg Metoclopramide HCl (Reglan -) 5 mg PO TID [facility] Last Admin: 09/21/17 06:14 Dose: 5 mg Montelukast Sodium (Singulair -) [address] [facility] Last Admin: 09/20/17 21:41 Dose: 10 mg Morphine Sulfate (Ms Contin -) 15 mg PO BID [facility] Last Admin: 09/21/17 09:08 Dose: 15 mg Nystatin (Nystatin Oral Suspension -) 100,000 units PO Q6HPO [facility] Last Admin: 09/21/17 06:13 Dose: Not Given Pantoprazole Sodium (Protonix -) 40 mg PO HS [facility] Last Admin: 09/20/17 21:41 Dose: 40 mg Prednisone (Deltasone -) 40 mg PO DAILY [facility] Last Admin: 09/21/17 09:08 Dose: 40 mg Pregabalin (Lyrica -) 75 mg PO BID [facility] Last Admin: 09/21/17 09:09 Dose: 75 mg Senna (Senna -) 1 tab PO HS [facility] Last Admin: 09/20/17 23:23 Dose: Not Given Sodium Chloride ([place] Nasal [place] -) 2 spray NS BID [facility] Last Admin: 09/20/17 21:43 Dose: 2 spray Tiotropium [place] (Spiriva -) 1 puff IH DAILY [facility] Last Admin: 09/21/17 09:09 Dose: 1 puff - Objective Vital Signs: Vital Signs Temperature 97.7 F 09/21/17 08:52 Pulse Rate 88 09/21/17 08:52 Respiratory Rate 18 09/21/17 09:00 Blood Pressure 105/64 09/21/17 08:52 O2 Sat by Pulse Oximetry (%) 99 09/21/17 09:00 Constitutional: Yes: Well Nourished, Calm Eyes: Yes: WNL Neck: Yes: WNL Cardiovascular: Yes: Regular Rate and Rhythm, S1, S2 Respiratory: Yes: Rales (bilateral rales) Gastrointestinal: Yes: Normal Bowel Sounds, Soft Extremities: Yes: WNL Edema: No Labs: CBC, BMP 09/21/17 07:00 09/21/17 07:00 Problem List - Problems (1) CHF (congestive heart failure) Code(s): I50.9 - HEART FAILURE, UNSPECIFIED Qualifiers: Heart failure type: unspecified Heart failure chronicity: unspecified Qualified Code(s): I50.9 - Heart failure, unspecified (2) Pulmonary sarcoidosis Code(s): D86.0 - SARCOIDOSIS OF LUNG (3) Acute on chronic respiratory failure with hypoxia and hypercapnia Code(s): J96.21 - ACUTE AND CHRONIC RESPIRATORY FAILURE WITH HYPOXIA; J96.22 - ACUTE AND CHRONIC RESPIRATORY FAILURE WITH HYPERCAPNIA (4) COPD exacerbation Code(s): J44.1 - CHRONIC OBSTRUCTIVE PULMONARY DISEASE W (ACUTE) EXACERBATION (5) Cardiac sarcoidosis Code(s): 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 (6) Chest pain Code(s): R07.9 - CHEST PAIN, UNSPECIFIED Qualifiers: Chest pain type: unspecified Qualified Code(s): R07.9 - Chest pain, unspecified (7) Chronic diastolic CHF (congestive heart failure) Code(s): I50.32 - CHRONIC DIASTOLIC (CONGESTIVE) HEART FAILURE (8) ICD (implantable cardioverter-defibrillator) in place Code(s): Z95.810 - PRESENCE OF AUTOMATIC (IMPLANTABLE) CARDIAC DEFIBRILLATOR (9) Interstitial lung disease Code(s): J84.9 - INTERSTITIAL PULMONARY DISEASE, UNSPECIFIED (10) Obstructive sleep apnea Code(s): G47.33 - OBSTRUCTIVE SLEEP APNEA (ADULT) (PEDIATRIC) (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 Assessment/Plan IMP ACUTE ON CHRONIC HYPOXEMIC/HYPERCAPNEIC RESPIRATORY FAILURE clinically improved ADVANCED SARCOIDOSIS WITH ADVANCE ILD/FIBROSIS CARDIAC SARCOID S/P AICD PULMONARY HTN DIASTOLIC HF CP OSAS HTN HLD H/O HEP C H/O DVT PLAN LASIX PO PREDNISONE O2 BIPAP AT NIGHT AND PRN INHALED BRONCHODILATORS DAILY WTS F/U CHEST X-RAY STRICT I+OS CIARRAQUIS DR EUBANKS Problem List - Problems (1) CHF (congestive heart failure) Code(s): I50.9 - HEART FAILURE, UNSPECIFIED Qualifiers: Heart failure type: unspecified Heart failure chronicity: unspecified Qualified Code(s): I50.9 - Heart failure, unspecified (2) Pulmonary sarcoidosis Code(s): D86.0 - SARCOIDOSIS OF LUNG (3) Acute on chronic respiratory failure with hypoxia and hypercapnia Code(s): J96.21 - ACUTE AND CHRONIC RESPIRATORY FAILURE WITH HYPOXIA; J96.22 - ACUTE AND CHRONIC RESPIRATORY FAILURE WITH HYPERCAPNIA (4) COPD exacerbation Code(s): J44.1 - CHRONIC OBSTRUCTIVE PULMONARY DISEASE W (ACUTE) EXACERBATION (5) Cardiac sarcoidosis Code(s): 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 (6) Chest pain Code(s): R07.9 - CHEST PAIN, UNSPECIFIED Qualifiers: Chest pain type: unspecified Qualified Code(s): R07.9 - Chest pain, unspecified (7) Chronic diastolic CHF (congestive heart failure) Code(s): I50.32 - CHRONIC DIASTOLIC (CONGESTIVE) HEART FAILURE (8) ICD (implantable cardioverter-defibrillator) in place Code(s): Z95.810 - PRESENCE OF AUTOMATIC (IMPLANTABLE) CARDIAC DEFIBRILLATOR (9) Interstitial lung disease Code(s): J84.9 - INTERSTITIAL PULMONARY DISEASE, UNSPECIFIED (10) Obstructive sleep apnea Code(s): G47.33 - OBSTRUCTIVE SLEEP APNEA (ADULT) (PEDIATRIC) (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
[2017-09-21 10:36] LABS: ACANTHOCYTES 0; ANISOCYTOSIS 0; HELMET CELLS 0; HOWELL-JOLLY BODIES 0; MACROCYTOSIS 0; OVALOCYTE 0; PLATELET ESTIMATE NORMAL; ROULEAU 0; SICKELED CELLS 0; TARGET CELLS 0; TEAR DROP CELLS 0; TOXIC GRANULATION 0
[2017-09-21] MEDS: SODIUM CHLORIDE NASAL SPRAY 44 ML BOTTLE NS SCH ×2 (10:55→22:41)
[2017-09-21] MEDS ORDERED: INSULIN (NOVOLOG) ASPART 100 UNITS/ML 10ML VIAL ONE (11:26)
--- NOTE | 2017-09-21 17:35 | PN ---
Progress Note (short form) - Note Progress Note: Vascular Surgery Pt seen and examined. Wound on upper lip getting better. Can place bacitracin to area. Bl lower ext look good. Medicial management. Jason Duran DO
[2017-09-21] MEDS: ALBUTEROL SO4 0.083% IH SOL 2.5 MG/3 ML VIAL.NEB. NEB PRN (18:11)
[2017-09-21] MEDS: SENNOSIDES 8.6MG TABLET (FP) PO SCH (22:41)
[2017-09-21] MEDS: PANTOPRAZOLE 40 MG TABLET (FP) PO SCH (22:41)
[2017-09-21] MEDS: MONTELUKAST NA 10 MG TABLET PO SCH (22:41)
[2017-09-21] MEDS: INSULIN (LEVEMIR) 100 UNITS/ML UNITS SQ SCH (22:44)
--- NOTE | 2017-09-21 23:03 | PN ---
Progress Note (short form) - Note Progress Note: sitting up in bed drowsy no distress / no cp Vital Signs Period Temp Pulse Resp BP Sys/Londono Pulse Ox Last 24 Hr 97.6 F-98.6 F 72-101 18-20 98-111/54-67 97 supple heart S1/S2 lungs bilat fine crackles through out abd soft ext no edema CBC, BMP 09/21/17 07:00 09/21/17 07:00 Active Medications Albuterol Sulfate (Ventolin 0.083% Nebulizer Soln -) 1 amp NEB Q4H PRN PRN Reason: SHORT OF BREATH/WHEEZING Last Admin: 09/19/17 17:22 Dose: 1 amp Apixaban (Eliquis -) 2.5 mg PO BID [facility] Last Admin: 09/20/17 21:42 Dose: 2.5 mg Arformoterol Tartrate (Brovana (Restricted To Pulmonology/Resp) -) 1 amp NEB RBID [facility] Last Admin: 09/20/17 20:14 Dose: 1 amp Diltiazem HCl (Cardizem -) 30 mg PO TID [facility] Last Admin: 09/20/17 21:41 Dose: 30 mg Furosemide (Lasix -) 40 mg PO DAILY [facility] Insulin Aspart (Novolog Vial Sliding Scale -) 1 vial SQ [facility]; Protocol Last Admin: 09/20/17 21:43 Dose: 8 unit Insulin Detemir (Levemir Vial) 50 units SQ [facility] Last Admin: 09/20/17 21:43 Dose: 50 units Lisinopril (Prinivil) 10 mg PO DAILY [facility] Last Admin: 09/20/17 10:22 Dose: 10 mg Methylprednisolone Sodium Succinate (Solu-Medrol -) 40 mg IVPUSH DAILY [facility] Stop: 09/20/17 22:00 Last Admin: 09/20/17 10:22 Dose: 40 mg Metoclopramide HCl (Reglan -) 5 mg PO TID [facility] Last Admin: 09/20/17 21:42 Dose: 5 mg Montelukast Sodium (Singulair -) 10 mg PO HS [facility] Last Admin: 09/20/17 21:41 Dose: 10 mg Morphine Sulfate (Ms Contin -) 15 mg PO BID [facility] Last Admin: 09/20/17 21:42 Dose: 15 mg Nystatin (Nystatin Oral Suspension -) 100,000 units PO Q6HPO [facility] Last Admin: 09/20/17 18:03 Dose: Not Given Pantoprazole Sodium (Protonix -) 40 mg PO HS [facility] Last Admin: 09/20/17 21:41 Dose: 40 mg Prednisone (Deltasone -) 40 mg PO DAILY [facility] Pregabalin (Lyrica -) 75 mg PO BID [facility] Last Admin: 09/20/17 21:41 Dose: 75 mg Senna (Senna -) 1 tab PO HS [facility] Last Admin: 09/19/17 22:03 Dose: 1 tab Sodium Chloride ([place] Nasal [place] -) 2 spray NS BID [facility] Last Admin: 09/20/17 21:43 Dose: 2 spray Tiotropium [place] (Spiriva -) 1 puff IH DAILY [facility] Last Admin: 09/20/17 10:22 Dose: 1 puff # Dyspnea ILD/ Fibroid - sarcoid lung / COPD / component of CHF -- recent d/c of diuretic on last hospitalization now resumed appreciate Cardio / Pulmonary follow up improved with diuresis how ever may be experiencing symptomatic hypotension will need to trend BP / continue steroids / nebulizer / O2 depended / BiPap over night and PRN steroid dependant 2/2 to Sarcoid -- Cardiac and Pulmonary taper IV steroids to PO -- aim to PO baseline 30mg /day # 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 chronic diastolic HF # Pulmonay HTN # OSVALDO # HTN # HLD # Hep C # DVT -- 2016 -- on NOAC # DM II HgA1c 9.9 continue FS with sliding scale adjust insulin #decubiti request wound eval D Duran prior to d/c home Problem List - Problems (1) Pulmonary sarcoidosis Code(s): D86.0 - SARCOIDOSIS OF LUNG (2) COPD (chronic obstructive pulmonary disease) Code(s): J44.9 - CHRONIC OBSTRUCTIVE PULMONARY DISEASE, UNSPECIFIED (3) CHF (congestive heart failure) Code(s): I50.9 - HEART FAILURE, UNSPECIFIED Qualifiers: Heart failure type: unspecified Heart failure chronicity: unspecified Qualified Code(s): I50.9 - Heart failure, unspecified (4) Cardiac sarcoidosis Code(s): 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 (5) Chronic diastolic CHF (congestive heart failure) Code(s): I50.32 - CHRONIC DIASTOLIC (CONGESTIVE) HEART FAILURE (6) Chronic low back pain Code(s): M54.5 - LOW BACK PAIN; G89.29 - OTHER CHRONIC PAIN (7) Diabetes mellitus Code(s): E11.9 - TYPE 2 DIABETES MELLITUS WITHOUT COMPLICATIONS Qualifiers: Diabetes mellitus type: type 2 Diabetes mellitus complication status: without complication (8) ICD (implantable cardioverter-defibrillator) in place Code(s): Z95.810 - PRESENCE OF AUTOMATIC (IMPLANTABLE) CARDIAC DEFIBRILLATOR (9) Multifocal atrial tachycardia Code(s): I47.1 - SUPRAVENTRICULAR TACHYCARDIA (10) Obstructive sleep apnea Code(s): G47.33 - OBSTRUCTIVE SLEEP APNEA (ADULT) (PEDIATRIC) (11) Allergy to multiple antibiotics Code(s): Z88.1 - ALLERGY STATUS TO OTHER ANTIBIOTIC AGENTS STATUS (12) Hypercarbia Code(s): R06.89 - OTHER ABNORMALITIES OF BREATHING (13) Oxygen dependent Code(s): Z99.81 - DEPENDENCE ON SUPPLEMENTAL OXYGEN (14) PHT (pulmonary hypertension) Code(s): I27.20 - PULMONARY HYPERTENSION, UNSPECIFIED (15) Rapid atrial fibrillation Code(s): I48.91 - UNSPECIFIED ATRIAL FIBRILLATION (16) Back pain Code(s): M54.9 - DORSALGIA, UNSPECIFIED Qualifiers: Back pain location: low back pain Chronicity: acute Back pain laterality : bilateral Sciatica presence: without sciatica Qualified Code(s): M54.5 - Low back pain
[2017-09-22] MEDS: NYSTATIN 500,000 UNITS/5 ML SUSPENSION PO SCH ×2 (00:44→06:42)
[2017-09-22] MEDS ORDERED: INSULIN (NOVOLOG) ASPART 100 UNITS/ML 10ML VIAL SQ ONE (01:15)
[2017-09-22] MEDS: dilTIAZem HCL 30 MG TABLET (FP) PO SCH (06:41)
[2017-09-22] MEDS: METOCLOPRAMIDE HCL 10 MG TABLET (FP) PO SCH (06:42)
[2017-09-22] MEDS: INSULIN SLIDING SCALE (NOVOLOG) 1 VIAL SQ SCH ×2 (06:42→11:43)
--- NOTE | 2017-09-22 08:26 | PN ---
Progress Note, Physician Chief Complaint: awake, alert in no distress TELE: NSR. APCs - Current Medication List Current Medications: Active Medications Albuterol Sulfate (Ventolin 0.083% Nebulizer Soln -) 1 amp NEB Q4H PRN PRN Reason: SHORT OF BREATH/WHEEZING Last Admin: 09/21/17 18:11 Dose: 1 amp Apixaban (Eliquis -) 2.5 mg PO BID [facility] Last Admin: 09/21/17 22:39 Dose: 2.5 mg Arformoterol Tartrate (Brovana (Restricted To Pulmonology/Resp) -) 1 amp NEB RBID [facility] Last Admin: 09/21/17 19:22 Dose: 1 amp Diltiazem HCl (Cardizem -) 30 mg PO TID [facility] Last Admin: 09/22/17 06:41 Dose: 30 mg Furosemide (Lasix -) 40 mg PO DAILY [facility] Last Admin: 09/21/17 09:07 Dose: 40 mg Insulin Aspart (Novolog Vial Sliding Scale -) 1 vial SQ [facility]; Protocol Last Admin: 09/22/17 06:42 Dose: Not Given Insulin Detemir (Levemir Vial) 50 units SQ [facility] Last Admin: 09/21/17 22:44 Dose: 50 units Lisinopril (Prinivil) 10 mg PO DAILY [facility] Last Admin: 09/21/17 09:08 Dose: 10 mg Metoclopramide HCl (Reglan -) 5 mg PO TID [facility] Last Admin: 09/22/17 06:42 Dose: 5 mg Montelukast Sodium (Singulair -) 10 mg PO [facility] Last Admin: 09/21/17 22:41 Dose: 10 mg Morphine Sulfate (Ms Contin -) 15 mg PO BID [facility] Last Admin: 09/21/17 22:39 Dose: 15 mg Nystatin (Nystatin Oral Suspension -) 100,000 units PO Q6HPO [facility] Last Admin: 09/22/17 06:42 Dose: Not Given Pantoprazole Sodium (Protonix -) 40 mg PO [facility] Last Admin: 09/21/17 22:41 Dose: 40 mg Prednisone (Deltasone -) 40 mg PO DAILY [facility] Last Admin: 09/21/17 09:08 Dose: 40 mg Pregabalin (Lyrica -) 75 mg PO BID [facility] Last Admin: 09/21/17 22:39 Dose: 75 mg Senna (Senna -) 1 tab PO HS [facility] Last Admin: 09/21/17 22:41 Dose: 1 tab Sodium Chloride ([place] Nasal [place] -) 2 spray NS BID [facility] Last Admin: 09/21/17 22:41 Dose: 2 spray Tiotropium [place] (Spiriva -) 1 puff IH DAILY [facility] Last Admin: 09/21/17 09:09 Dose: 1 puff - Objective Vital Signs: Vital Signs Temperature 98.5 F 09/22/17 06:00 Pulse Rate 82 09/22/17 06:00 Respiratory Rate 20 09/22/17 06:00 Blood Pressure 112/77 09/22/17 06:00 O2 Sat by Pulse Oximetry (%) 99 09/21/17 20:20 Constitutional: Yes: No Distress Cardiovascular: Yes: Regular Rate and Rhythm Respiratory: Yes: Rhonchi Gastrointestinal: Yes: Soft Edema: No Neurological: Yes: Alert Labs: CBC, BMP 09/21/17 07:00 09/21/17 07:00 - ....Imaging EKG: Image Reviewed Assessment/Plan IMP: Chronically ill patient with long standing Sarcoidosis with pulmonary and cardiac involvement s/p ICD for VT and syncope several years ago; on NOAC therapy for LLE DVT diagnosed in 12/2016. Now readmitted with acute on chronic diastolic CHF in setting of interruption of diuretic therapy. Recent episode of severe epistaxis requiring ENT cauterization and Heme evaluation for Eliquis recommendations. REC: 1. Maintenance dose Lasix decreased to 40mg PO daily due to recurrent intermittent relative hypotension. Would decrease Lisinopril to 5mg. 2. Use short acting Cardizem as she has had episodes of hypotension with standing diuretic and extended release Cardizem in past. Being used to control her MAT and PAT, likely due to chronic lung disease and cardiac sarcoid. 3. Close outpt f/u of renal fxn and electrolytes. 4. To continue Eliquis at Heme recommended dose. D/C planning.
[2017-09-22] MEDS: ARFORMOTEROL TARTRATE 15 MCG/2 ML VIAL NEB SCH (08:38)
--- NOTE | 2017-09-22 08:49 | DS ---
Physical Examination Vital Signs: Vital Signs Temperature 98.5 F 09/22/17 06:00 Pulse Rate 82 09/22/17 06:00 Respiratory Rate 20 09/22/17 06:00 Blood Pressure 112/77 09/22/17 06:00 O2 Sat by Pulse Oximetry (%) 99 09/21/17 20:20 Findings/Remarks: Chronically ill patient with long standing Sarcoidosis with pulmonary and cardiac involvement s/p ICD for VT and syncope several years ago; on NOAC therapy for LLE DVT diagnosed in 12/2016. Now readmitted with acute on chronic diastolic CHF in setting of interruption of diuretic therapy. Recent episode of severe epistaxis requiring ENT cauterization and Heme evaluation for Eliquis recommendations. admitted with increase dyspnea -- found to be in mild CHf / decompensated respiratory status multifactorial--meds adjusted and lasix resumed -- # Dyspnea ILD/ Fibroid - sarcoid lung / COPD / pulm HTN / component of CHF -- recent d/c of diuretic on last hospitalization now resumed appreciate Cardio / Pulmonary follow up improved with diuresis how ever may be experiencing symptomatic hypotension will need to trend Bp recoomedation to decrease lisisnopril to 5 mg / day continue steroids / nebulizer / O2 depended / BiPap over night and PRN steroid dependant 2/2 to Sarcoid -- Cardiac and Pulmonary IV steroids to PO -- aim to taper to PO baseline 30mg /day # 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 On cardizem to control MAT and PAT likely due to chronic lung Dz and cardiac Sarcoid chronic diastolic HF # OSVALDO # HTN # HLD # Hep C # DVT -- 2016 -- on NOAC # DM II HgA1c 9.9 continue FS with sliding scale adjust insulin #decubiti wound eval D Duran prior to d/c home appreciated - Per Cardio: REC: 1. Maintenance dose Lasix decreased to 40mg PO daily due to recurrent intermittent relative hypotension. Would decrease Lisinopril to 5mg. 2. Use short acting Cardizem as she has had episodes of hypotension with standing diuretic and extended release Cardizem in past. Being used to control her MAT and PAT, likely due to chronic lung disease and cardiac sarcoid. 3. Close outpt f/u of renal fxn and electrolytes. 4. To continue Eliquis at Heme recommended dose. Constitutional: Yes: Well Nourished, Calm, Other (O2 dependednt) Eyes: Yes: WNL, Conjunctiva Clear HENT: Yes: WNL, Atraumatic, Normocephalic Neck: Yes: Supple, Trachea Midline Respiratory: Yes: Diminished, On Nasal O2, Other (fine crackles throughtout) Gastrointestinal: Yes: Normal Bowel Sounds, Soft ...Rectal Exam: Yes: Deferred Renal/: Yes: WNL Breast(s): Yes: WNL Musculoskeletal: Yes: WNL, Other (lower extremeties muscle atrophy) Extremities: Yes: Deformity (extremites) Edema: No Integumentary: Yes: WNL Neurological: Yes: Alert, Oriented Psychiatric: Yes: Alert, Oriented Labs: CBC, BMP 09/21/17 07:00 09/21/17 07:00 Discharge Summary Reason For Visit: CONGESTIVE HEART FAILURE Current Active Problems CHF (congestive heart failure) (Acute) Pulmonary sarcoidosis (Acute) SOB (shortness of breath) (Acute) Condition: Improved - Instructions Referrals: Whit Fuchs MD [Primary Care Provider] - Disposition: HOME - Home Medications Comprehensive Discharge Medication List: Ambulatory Orders Montelukast Na [Singulair -] 10 mg PO HS 05/02/17 Pregabalin [Lyrica -] 75 mg PO BID 05/02/17 Sennosides [Senna -] 1 tab PO HS 05/02/17 Morphine *Sr* [Ms Contin -] 15 mg PO BID 7 Days #14 tablet.sa MDD 30 05/10/17 Metoclopramide HCl [Reglan] 5 mg PO TID 08/29/17 Nitroglycerin Sublingual [Nitrostat -] 0.4 mg .ROUTE ASDIR PRN 08/29/17 Nystatin Oral Suspension - [Nystatin Oral Susp 995705 Units/5 ML -] 100,000 units PO Q6H 08/29/17 Tiotropium [place] [Spiriva Respimat] 2.5 mcg IH DAILY 08/29/17 Insulin (Levemir) [Levemir Vial] 50 units SQ HS ml 09/04/17 Insulin Sliding Scale [Novolog Vial Sliding Scale -] 0 units SQ ACHS 09/06/17 Apixaban [Eliquis -] 2.5 mg PO BID tablet 09/09/17 Albuterol 0.083% Nebulizer Gisela [Ventolin 0.083% Nebulizer Soln -] 1 amp NEB Q4H PRN amp 09/22/17 Arformoterol Tartrate [Brovana -] 1 amp NEB RBID 30 Days #60 amp 09/22/17 Diltiazem [Cardizem -] 30 mg PO TID 30 Days #90 tablet 09/22/17 Furosemide [Lasix -] 40 mg PO DAILY 30 Days #30 tablet 09/22/17 Insulin Sliding Scale [Novolog Vial Sliding Scale -] 1 vial SQ ACHS units 09/22 Lisinopril [Prinivil] 10 mg PO DAILY 30 Days #30 tablet 09/22/17 Montelukast Na [Singulair -] 10 mg PO HS 30 Days #30 tablet 09/22/17 Morphine *Sr* [Ms Contin -] 15 mg PO BID 7 Days #14 tablet.sa MDD 30 09/22/17 Omeprazole 40 mg PO HS 30 Days #30 capsule. 09/22/17 Sodium Chloride Nasal [place] [[place] Nasal [place] -] 2 spray NS BID 30 Days # 1 spray 09/22/17 predniSONE [Deltasone -] 40 mg PO DAILY 30 Days #60 tablet 09/22/17
[2017-09-22 08:50] VITALS: BP 100/58; PULSE 96; TEMP 98.2
[2017-09-22] MEDS: PREGABALIN 75 MG CAPSULE PO SCH (09:37)
[2017-09-22] MEDS: morphine SO4 SUSTAINED ACTING 15 MG TABLET.SA PO SCH (09:37)
[2017-09-22] MEDS: FUROSEMIDE 40 MG TABLET (FP) PO SCH (09:37)
[2017-09-22] MEDS: APIXABAN 2.5 MG TABLET PO SCH (09:37)
[2017-09-22] MEDS: predniSONE 20 MG TABLET (UD) PO SCH (09:37)
[2017-09-22] MEDS: TIOTROPIUM BROMIDE 18 MCG CAPSULES IH SCH (09:38)
[2017-09-22] MEDS: SODIUM CHLORIDE NASAL SPRAY 44 ML BOTTLE NS SCH (09:38)
[2017-09-22] MEDS ORDERED: LISINOPRIL 5 MG TABLET (FP) PO SCH (10:00)
--- NOTE | 2017-09-23 11:13 | EKG ---
Test Reason : Blood Pressure : / mmHG Vent. Rate : 086 BPM Atrial Rate : 086 BPM P-R Int : 136 ms QRS Dur : 066 ms QT Int : 330 ms P-R-T Axes : 025 000 023 degrees QTc Int : 394 ms NORMAL SINUS RHYTHM NORMAL ECG WHEN COMPARED WITH ECG OF 08-SEP-2017 05:58, PREMATURE SUPRAVENTRICULAR COMPLEXES ARE NO LONGER PRESENT Confirmed by PAPO STEWART MD ([id number]) on 09/23/2017 11:13:04 AM Referred By: Confirmed By:PAPO STEWART MD
== END 2017-09-22 12:04 | disposition home or self-care (01) | DRG 194 ==
LOC: JER 15:42 → JERBED 20:35 → J4W 09-17 02:47
PROVIDERS: ADMIT Family Medicine; ATTEND Family Medicine
DX: I11.0 Hypertensive heart disease with heart failure (principal); I50.33 Acute on chronic diastolic (congestive) heart failure; J96.21 Acute and chronic respiratory failure with hypoxia; J96.22 Acute and chronic respiratory failure with hypercapnia; I48.91 Unspecified atrial fibrillation; K21.9 Gastro-esophageal reflux disease without esophagitis; E78.5 Hyperlipidemia, unspecified; J84.9 Interstitial pulmonary disease, unspecified; D64.9 Anemia, unspecified; E11.9 Type 2 diabetes mellitus without complications; I27.20 Pulmonary hypertension, unspecified; F03.90 Unspecified dementia, unspecified severity, without behavioral disturbance, psychotic disturbance, mood disturbance, and anxiety; M54.5 Low back pain; D86.9 Sarcoidosis, unspecified; R33.9 Retention of urine, unspecified; D86.85 Sarcoid myocarditis; J84.10 Pulmonary fibrosis, unspecified; G47.33 Obstructive sleep apnea (adult) (pediatric); Z78.0 Asymptomatic menopausal state; Z86.718 Personal history of other venous thrombosis and embolism; Z99.81 Dependence on supplemental oxygen; Z95.810 Presence of automatic (implantable) cardiac defibrillator; Z79.52 Long term (current) use of systemic steroids
CPT/HCPCS: 36415; 71045-TC-FY; 80048; 80053; 80061; 82550; 82962; 83036; 83721; 83735; 83880; 84100; 84484; 85025; 85027; 93005; 93010; 94640; 99283-25; J7620

== ENCOUNTER 2017-09-30 09:12 | Inpatient (IN) | payer OTHER ==
[2017-09-30] MEDS: ALBUTEROL SO4 2.5/IPRATROPIUM 0.5 INH SOL 3 ML VIAL.NEB. NEB SCH ×2 (09:30→10:01)
--- NOTE | 2017-09-30 09:35 | PDOC ---
History of Present Illness - General Chief Complaint: Shortness of Breath Stated Complaint: DIFFICULTY BREATHING Time Seen by Provider: 09/30/17 09:19 History Source: Patient Exam Limitations: No Limitations - History of Present Illness Initial Comments: CHIEF COMPLAINT: 62 y/o afebrile female with PMH IDDM, HLD, HTN, COPD/asthma on 4L O2 via NC at home, Afib (on Eliquis), CHF, sarcoidosis c/o cough and difficulty breathing since last night. HISTORY OF PRESENT ILLNESS: Patient states she has a dry cough that is worse at night. She is on daily prednisone, albuterol, spiriva but none of those are helping. She denies fever, runny nose, nasal congestion, sore throat, n/v/d, CP , abd pain, back pain, hematuria, dysuria. She does admit her grandchild had a cough. PCP is Dr. Fuchs Past History - Past Medical History Allergies/Adverse Reactions: Allergies Allergy/AdvReac Type Severity Reaction Status Date / Time medroxyprogesterone acetate Allergy Severe stepehns Verified 09/30/17 09:18 [From Depo-Provera] josé syndrome amoxicillin [From Augmentin] Allergy Verified 09/30/17 09:18 amoxicillin trihydrate Allergy Verified 09/30/17 09:18 [From Augmentin] aspirin Allergy Verified 09/30/17 09:18 azithromycin [From Zithromax] Allergy [place] Verified 09/30/17 09:18 José syndrome bacitracin Allergy Verified 09/30/17 09:18 ciprofloxacin [From Cipro] Allergy Verified 09/30/17 09:18 ciprofloxacin HCl Allergy Verified 09/30/17 09:18 [From Cipro] clavulanic acid Allergy Verified 09/30/17 09:18 [From Augmentin] codeine [Codeine] Allergy Verified 09/30/17 09:18 Iodinated Contrast- Oral and Allergy Verified 09/30/17 09:18 IV Dye [IV Dye, Iodine Containing Contrast ] ketorolac [From Toradol] Allergy Verified 09/30/17 09:18 ketorolac tromethamine Allergy Verified 09/30/17 09:18 [From Toradol] levofloxacin [From Levaquin] Allergy Verified 09/30/17 09:18 metronidazole [From Flagyl] Allergy Verified 09/30/17 09:18 nalbuphine [From Nubain] Allergy Verified 09/30/17 09:18 nalbuphine HCl [From Nubain] Allergy CYANOSIS Verified 09/30/17 09:18 potassium clavulanate Allergy Verified 09/30/17 09:18 [From Augmentin] Shellfish Allergy Verified 09/30/17 09:18 sulfamethoxazole Allergy Verified 09/30/17 09:18 [From Bactrim] trimethoprim [From Bactrim] Allergy Verified 09/30/17 09:18 ivp dye Allergy Severe Swelling Uncoded 09/30/17 09:18 Home Medications: Ambulatory Orders Montelukast Na [Singulair -] 10 mg PO HS 05/02/17 Pregabalin [Lyrica -] 75 mg PO BID 05/02/17 Sennosides [Senna -] 1 tab PO HS 05/02/17 Morphine *Sr* [Ms Contin -] 15 mg PO BID 7 Days #14 tablet.sa MDD 30 05/10/17 Metoclopramide HCl [Reglan] 5 mg PO TID 08/29/17 Nitroglycerin Sublingual [Nitrostat -] 0.4 mg .ROUTE ASDIR PRN 08/29/17 Nystatin Oral Suspension - [Nystatin Oral Susp 747930 Units/5 ML -] 100,000 units PO Q6H 08/29/17 Tiotropium [place] [Spiriva Respimat] 2.5 mcg IH DAILY 08/29/17 Insulin (Levemir) [Levemir Vial] 50 units SQ HS ml 09/04/17 Insulin Sliding Scale [Novolog Vial Sliding Scale -] 0 units SQ ACHS 09/06/17 Apixaban [Eliquis -] 2.5 mg PO BID tablet 09/09/17 Albuterol 0.083% Nebulizer Gisela [Ventolin 0.083% Nebulizer Soln -] 1 amp NEB Q4H PRN amp 09/22/17 Apixaban [Eliquis -] 2.5 mg PO BID 30 Days #60 tablet 09/22/17 Arformoterol Tartrate [Brovana -] 1 amp NEB RBID 30 Days #60 amp 09/22/17 Diltiazem [Cardizem -] 30 mg PO TID 30 Days #90 tablet 09/22/17 Furosemide [Lasix -] 40 mg PO DAILY 30 Days #30 tablet 09/22/17 Insulin Sliding Scale [Novolog Vial Sliding Scale -] 1 vial SQ ACHS units 09/22 Lisinopril [Prinivil] 10 mg PO DAILY 30 Days #30 tablet 09/22/17 Montelukast Na [Singulair -] 10 mg PO HS 30 Days #30 tablet 09/22/17 Morphine *Sr* [Ms Contin -] 15 mg PO BID 7 Days #14 tablet.sa MDD 30 09/22/17 Omeprazole 40 mg PO HS 30 Days #30 capsule. 09/22/17 Sodium Chloride Nasal [place] [[place] Nasal [place] -] 2 spray NS BID 30 Days # 1 spray 09/22/17 predniSONE [Deltasone -] 40 mg PO DAILY 30 Days #60 tablet 09/22/17 Anemia: Yes Asthma: Yes Cancer: No Cardiac Disorders: Yes (afib) CVA: No COPD: Yes (scaradosis) CHF: Yes Dementia: No Diabetes: Yes GI Disorders: Yes (acid reflux, gastric paresis, GERD) Disorders: Yes (Urinary retention) HTN: Yes Hypercholesterolemia: Yes Liver Disease: Yes (hep c) Seizures: No Thyroid Disease: No - Surgical History Abdominal Surgery: Yes Appendectomy: No Cardiac Surgery: Yes (ppmd) Cholecystectomy: No Gastric Stapling: No Lung Surgery: No Neurologic Surgery: Yes (BACK SX WITH LLE NERVE DAMAGE) Orthopedic Surgery: Yes (laminectomy x 2 in 2008 in [facility]) - Immunization History Immunization Up to Date: Yes - Suicide/Smoking/Psychosocial Hx Smoking Status: No Smoking History: Never smoked Have you smoked in the past 12 months: No Number of Cigarettes Smoked Daily: 0 Cigars Per Day: 0 Information on smoking cessation initiated: No Hx Alcohol Use: No Drug/Substance Use Hx: No Substance Use Type: None Hx Substance Use Treatment: No Respiratory Specific PMHX - Complaint Specific PMHX Pulmonary Embolus: No Review of Systems - Review of Systems Able to Perform ROS?: Yes Is the patient limited Vietnamese proficient: Yes Constitutional: Yes: Chills. No: Fever HEENTM: No: Ear Pain, Nose Congestion, Throat Pain, Difficulty Swallowing Respiratory: Yes: Cough, Orthopnea (patient's baseline), Shortness of Breath. No: Stridor, Wheezing, Hemoptysis Cardiac (ROS): Yes: Chest Pain (patient admits this is her baseline; she has chest pain daily). No: Lightheadedness, Palpitations ABD/GI: Yes: Constipated. No: Diarrhea, Nausea, Vomiting, Tarry Stools : No: Dysuria, Flank Pain, Hematuria Neurological: No: Headache *Physical Exam - Vital Signs Last Vital Signs Temp Pulse Resp BP Pulse Ox 97.9 F 108 H 22 116/74 97 09/30/17 09:18 09/30/17 09:18 09/30/17 09:18 09/30/17 09:18 09/30/17 09:18 - Physical Exam Comments: The patient is sitting up in bed, in NAD or obvious discomfort. Patient sounds out of breath with conversation. General Appearance: Yes: Nourished, Appropriately Dressed. No: Apparent Distress HEENT: positive: EOMI, ANGEL. negative: Nasal Congestion, Sinus Tenderness Neck: negative: Stridor Respiratory/Chest: positive: Labored Respiration, Wheezing (across all posterior wilhelm) Cardiovascular: positive: Tachycardia Extremity: positive: Pedal Edema (1+ b/l LE. ). 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 Plan is as follows: 1. EKG 2. CXR 3. Labs 4. Duonebs CXR IMPRESSION: No significant change since 09/17/2017 WBC count of 17 with 90% Neutrophil count. Will admit for suspected pneumonia. Spoke with Dr. Fuchs's RN NURSERY and she accepts admission to [facility]. She suggests starting her on vanco. Informed patient of the plan. She states she feels better. Lungs still with wheezing but improved. Ordered IV Tylenol, vanco and aztreonam *DC/Admit/Observation/Transfer Diagnosis at time of Disposition: SOB (shortness of breath), Leukocytosis, Pneumonia - Discharge Dispostion Condition at time of disposition: Fair Decision to Admit order: Yes - Referrals - Patient Instructions - Post Discharge Activity
[2017-09-30 11:32] LABS: BASO % 0.9 % (0-2.0); EOS % 0.1 % (0-4.5); HEMATOCRIT 29.9 % (32.4-45.2); HEMOGLOBIN 9.4 GM/dL (10.7-15.3); LYMPH % 7.5 % (8-40); MCHC 31.6 g/dl (32.0-36.0); MEAN CELL VOLUME 85.4 fl (80-96); MEAN PLT VOLUME 7.2 fl (7.5-11.1); MONO % 1.2 % (3.8-10.2); NEUT % 90.3 % (42.8-82.8); PLATELET COUNT 371 K/MM3 (134-434); RDW 16.4 % (11.6-15.6); WHITE BLOOD COUNT 17.1 K/mm3 (4.0-10.0)
[2017-09-30] MEDS ORDERED: ALBUTEROL SO4 2.5/IPRATROPIUM 0.5 INH SOL 3 ML VIAL.NEB. NEB ONE (11:37)
--- NOTE | 2017-09-30 11:46 | EKG ---
Test Reason : Blood Pressure : / mmHG Vent. Rate : 127 BPM Atrial Rate : 127 BPM P-R Int : 128 ms QRS Dur : 068 ms QT Int : 286 ms P-R-T Axes : 015 007 042 degrees QTc Int : 415 ms SINUS TACHYCARDIA WITH PREMATURE VENTRICULAR COMPLEXES OR FUSION COMPLEXES OTHERWISE NORMAL ECG WHEN COMPARED WITH ECG OF 16-SEP-2017 20:22, FUSION COMPLEXES ARE NOW PRESENT PREMATURE VENTRICULAR COMPLEXES ARE NOW PRESENT VENT. RATE HAS INCREASED BY 48 BPM Confirmed by PAPO STEWART MD ([id number]) on 09/30/2017 11:46:19 AM Referred By: Confirmed By:PAPO STEWART MD
[2017-09-30 12:04] LABS: ALBUMIN 2.7 g/dl (3.4-5.0); ANION GAP -1 (8-16); BILIRUBIN,TOTAL 0.1 mg/dL (0.2-1.0); BLOOD UREA NITROGEN 24 mg/dL (7-18); CALCIUM 8.6 mg/dL (8.5-10.1); CHLORIDE 101 mmol/L (98-107); CO2 38 mmol/L (21-32); CREATININE 0.6 mg/dL (0.55-1.02); GLUCOSE,RANDOM 75 mg/dL (74-106); POTASSIUM 3.8 mmol/L (3.5-5.1); SGOT/AST 16 U/L (15-37); SGPT/ALT 31 U/L (12-78); SODIUM 138 mmol/L (136-145); TOT PROT 7.1 g/dl (6.4-8.2)
[2017-09-30 12:07] LABS: ALK PHOS 109 U/L (45-117); N-TERMINAL BNP 51.59 pg/ml (5-125)
[2017-09-30] MEDS ORDERED: VANCOMYCIN 1,000 MG in DEXTROSE 5%-WATER - 250 ML IVPB ONE (12:12)
[2017-09-30] MEDS ORDERED: VANCOMYCIN 1 GRAM (PRE-DOCKED) 1,000 MG/250 ML BAG IVPB ONE (12:48)
[2017-09-30] MEDS ORDERED: AZTREONAM 2 GM in DEXTROSE 5%-WATER 100 ML IVPB ONE (13:17)
[2017-09-30] MEDS ORDERED: ACETAMINOPHEN 1000 MG/100 ML VIAL (NON FORMULARY) IVPB ONE (13:17)
[2017-09-30] MEDS ORDERED: NITROGLYCERIN SUBLINGUAL 1/150 0.4 MG TAB SL PRN (23:09)
[2017-09-30] MEDS ORDERED: NYSTATIN 500,000 UNITS/5 ML SUSPENSION PO SCH (23:15)
[2017-09-30] MEDS: APIXABAN 2.5 MG TABLET PO SCH (23:37)
[2017-09-30] MEDS: dilTIAZem HCL 30 MG TABLET (FP) PO SCH (23:37)
[2017-09-30] MEDS: PREGABALIN 75 MG CAPSULE PO SCH (23:38)
[2017-09-30] MEDS: morphine SO4 SUSTAINED ACTING 15 MG TABLET.SA PO SCH (23:38)
[2017-09-30] MEDS: methylPREDNISolone NA SUCC 125 MG/2 ML VIAL IVPUSH SCH (23:40)
[2017-09-30] MEDS: ALBUTEROL SO4 0.083% IH SOL 2.5 MG/3 ML VIAL.NEB. NEB PRN (23:41)
--- NOTE | 2017-09-30 23:41 | HP ---
Admitting History and Physical - Admission Chief Complaint: can't breath History of Present Illness: 62 y/o female patient with long standing pulmonary Sarcoidosis, ILD/fibrosis, pulmonary HTN, COPD, and cardiac Sarcoid s/p ICD for VT and syncope several years ago -- steroid dependant ( 30mg/day); on NOAC therapy for LLE DVT diagnosed in 12/2016, Hep C, HTN, DM recent HgA1c 9.9, OSVALDO on bipap nightly and PRN, HLD, Decubiti mostly healed , Hx of MAT and PAT being controlled on cardizem ( avoid long acting 2/2 to hyportension ), chronic diastolic HF, resently admitted with acute on chronic diastolic CHF in setting of interruption of diuretic therapy. Medications resumed and arrangements made for home discharge, Kong was seen at office this week with c/o increased difficulty breathing -- Sat 72% at office -- on exam noted to be out of oxygen - - once supplemetal O2 resumed sats back up to 92%, patient was sent home. Today comes to ER with same complaint -- difficulty breathing / coughing over last 1-2 days --- report sick contact at home (grand child) History Source: Patient, Medical Record - Past Medical History JIG MAKER: Yes: Dementia Cardiovascular: Yes: Pulmonary Hypertension, Deep Vein Thrombosis, CHF, HTN, Other Pulmonary: Yes: Asthma, COPD, Previously Intubated, Sleep Apnea, Pulmonary Fibrosis, O2 Dependent, Other Gastrointestinal: Yes: GERD, Other Hepatobiliary: Yes: Hepatitis C Heme/Onc: Yes: Anemia Infectious Disease: Yes: Other Musculoskeletal: Yes: Chronic low back pain Rheumatology: Yes: Sarcoidosis (cardiac and pulmonary) Endocrine: Yes: Diabetes Mellitus - Past Surgical History Past Surgical History: Yes: Laminectomy, AICD, Permanent Pacemaker - Smoking History Smoking history: Never smoked Have you smoked in the past 12 months: No Aproximately how many cigarettes per day: 0 - Alcohol/Substance Use Hx Alcohol Use: No - Social History Usual Living Arrangement: Yes: Other (family) ADL: Support Services History of Recent Travel: No Home Medications - Allergies Allergies/Adverse Reactions: Allergies Allergy/AdvReac Type Severity Reaction Status Date / Time medroxyprogesterone acetate Allergy Severe stepehns Verified 09/30/17 09:18 [From Depo-Provera] josé syndrome amoxicillin [From Augmentin] Allergy Verified 09/30/17 09:18 amoxicillin trihydrate Allergy Verified 09/30/17 09:18 [From Augmentin] aspirin Allergy Verified 09/30/17 09:18 azithromycin [From Zithromax] Allergy Dewey Verified 09/30/17 09:18 José syndrome bacitracin Allergy Verified 09/30/17 09:18 ciprofloxacin [From Cipro] Allergy Verified 09/30/17 09:18 ciprofloxacin HCl Allergy Verified 09/30/17 09:18 [From Cipro] clavulanic acid Allergy Verified 09/30/17 09:18 [From Augmentin] codeine [Codeine] Allergy Verified 09/30/17 09:18 Iodinated Contrast- Oral and Allergy Verified 09/30/17 09:18 IV Dye [IV Dye, Iodine Containing Contrast ] ketorolac [From Toradol] Allergy Verified 09/30/17 09:18 ketorolac tromethamine Allergy Verified 09/30/17 09:18 [From Toradol] levofloxacin [From Levaquin] Allergy Verified 09/30/17 09:18 metronidazole [From Flagyl] Allergy Verified 09/30/17 09:18 nalbuphine [From Nubain] Allergy Verified 09/30/17 09:18 nalbuphine HCl [From Nubain] Allergy CYANOSIS Verified 09/30/17 09:18 potassium clavulanate Allergy Verified 09/30/17 09:18 [From Augmentin] Shellfish Allergy Verified 09/30/17 09:18 sulfamethoxazole Allergy Verified 09/30/17 09:18 [From Bactrim] trimethoprim [From Bactrim] Allergy Verified 09/30/17 09:18 ivp dye Allergy Severe Swelling Uncoded 09/30/17 09:18 - Home Medications Home Medications: Ambulatory Orders Montelukast Na [Singulair -] 10 mg PO HS 05/02/17 Pregabalin [Lyrica -] 75 mg PO BID 05/02/17 Sennosides [Senna -] 1 tab PO HS 05/02/17 Morphine *Sr* [Ms Contin -] 15 mg PO BID 7 Days #14 tablet.sa MDD 30 05/10/17 Metoclopramide HCl [Reglan] 5 mg PO TID 08/29/17 Nitroglycerin Sublingual [Nitrostat -] 0.4 mg .ROUTE ASDIR PRN 08/29/17 Nystatin Oral Suspension - [Nystatin Oral Susp 613902 Units/5 ML -] 100,000 units PO Q6H 08/29/17 Tiotropium [place] [Spiriva Respimat] 2.5 mcg IH DAILY 08/29/17 Insulin (Levemir) [Levemir Vial] 50 units SQ HS ml 09/04/17 Insulin Sliding Scale [Novolog Vial Sliding Scale -] 0 units SQ ACHS 09/06/17 Apixaban [Eliquis -] 2.5 mg PO BID tablet 09/09/17 Albuterol 0.083% Nebulizer Gisela [Ventolin 0.083% Nebulizer Soln -] 1 amp NEB Q4H PRN amp 09/22/17 Apixaban [Eliquis -] 2.5 mg PO BID 30 Days #60 tablet 09/22/17 Arformoterol Tartrate [Brovana -] 1 amp NEB RBID 30 Days #60 amp 09/22/17 Diltiazem [Cardizem -] 30 mg PO TID 30 Days #90 tablet 09/22/17 Furosemide [Lasix -] 40 mg PO DAILY 30 Days #30 tablet 09/22/17 Insulin Sliding Scale [Novolog Vial Sliding Scale -] 1 vial SQ ACHS units 09/22 Lisinopril [Prinivil] 10 mg PO DAILY 30 Days #30 tablet 09/22/17 Montelukast Na [Singulair -] 10 mg PO HS 30 Days #30 tablet 09/22/17 Morphine *Sr* [Ms Contin -] 15 mg PO BID 7 Days #14 tablet.sa MDD 30 09/22/17 Omeprazole 40 mg PO HS 30 Days #30 capsule. 09/22/17 Sodium Chloride Nasal [place] [[place] Nasal [place] -] 2 spray NS BID 30 Days # 1 spray 09/22/17 predniSONE [Deltasone -] 40 mg PO DAILY 30 Days #60 tablet 09/22/17 Family Disease History - Family Disease History Family Disease History: Other: Mother (3 CVAs, the first in her 60s) Review of Systems - Review of Systems Constitutional: reports: Malaise. denies: Chills Eyes: reports: No Symptoms Neck: reports: No Symptoms Cardiovascular: reports: Shortness of Breath. denies: Chest Pain, Palpitations Respiratory: reports: Cough, Exercise Intolerance, Snoring, SOB. denies: Hemoptysis Gastrointestinal: reports: No Symptoms, Bloating, Nausea. denies: Abdominal Pain Genitourinary: reports: No Symptoms Breasts: reports: No Symptoms Reported Musculoskeletal: reports: Back Pain, Decreased ROM, Joint Pain, Muscle Weakness Neurological: reports: Pre-Existing Deficit Endocrine: reports: No Symptoms Hematology/Lymphatic: reports: No Symptoms Psychiatric: reports: Anxiety, Depression Physical Examination Vital Signs: Vital Signs Temperature 98.2 F 09/30/17 23:15 Pulse Rate 102 H 09/30/17 23:15 Respiratory Rate 20 09/30/17 23:15 Blood Pressure 145/97 09/30/17 23:15 O2 Sat by Pulse Oximetry (%) 100 09/30/17 23:20 Constitutional: Yes: Well Nourished, Mild Distress (anxious) Eyes: Yes: Conjunctiva Clear, EOM Intact HENT: Yes: Atraumatic, Normocephalic Neck: Yes: Supple, Trachea Midline Cardiovascular: Yes: Pulse Irregular Respiratory: Yes: Cough, On Nasal O2, Other (diffuse fine crackles) Gastrointestinal: Yes: Normal Bowel Sounds, Soft, Abdomen, Obese ...Rectal Exam: Yes: Deferred Renal/: Yes: WNL Breast(s): Yes: WNL Musculoskeletal: Yes: Muscle Weakness (lower exteremities) Extremities: Yes: Deformity Edema: Yes Edema: LLE: Trace, RLE: Trace Peripheral Pulses WNL: Yes Integumentary: Yes: Pressure Ulcer (gluteal stage I /) Neurological: Yes: Alert, Oriented, Confusion, Pre-Existing Deficit Psychiatric: Yes: Alert, Oriented Labs: CBC, BMP 09/30/17 11:25 09/30/17 11:25 Assessment/Plan 62 y/o female patient with long standing pulmonary Sarcoidosis, ILD/fibrosis, pulmonary HTN, COPD, and cardiac Sarcoid s/p ICD for VT and syncope several years ago -- steroid dependant ( 30mg/day); on NOAC therapy for LLE DVT diagnosed in 12/2016, Hep C, HTN, DM recent HgA1c 9.9, OSVALDO on bipap nightly and PRN, HLD, Decubiti mostly healed , Hx of MAT and PAT being controlled on cardizem ( avoid long acting 2/2 to hypotension ), chronic diastolic HF, recently admitted with acute on chronic diastolic CHF in setting of interruption of diuretic therapy. Medications resumed and arrangements made for home discharge, Kong was seen at office this week with c/o increased difficulty breathing -- Sat 72% at office -- on exam noted to be out of oxygen - - once supplemental O2 resumed sats back up to 92%, patient was sent home. Today comes to ER with same complaint -- difficulty breathing / coughing over last 1-2 days --- report sick contact at home (grand child) # dyspnea -- CXR ? mild congestion in setting of chronic diastolic HF / COPD / pulmonary HTN / Pulmonary Sarcoid -- ILD / fibrosis steroid dependent / O2 dependent / bipap at night and PRN IV steroids / PPi / O2 4 liters / bipap nightly and PRN IV lasix -- follow renal function / follow clinically Pulmonary and Cardiac consult -- well known to service patient cultured in ER with multiple drug allergies -- will await c/s Id consult requested
[2017-09-30] MEDS: METOCLOPRAMIDE HCL 10 MG TABLET (FP) PO SCH (23:48)
[2017-09-30] MEDS: SENNOSIDES 8.6MG TABLET (FP) PO SCH (23:51)
[2017-09-30] MEDS: MONTELUKAST NA 10 MG TABLET PO SCH (23:51)
[2017-10-01] MEDS: SODIUM CHLORIDE NASAL SPRAY 44 ML BOTTLE NS SCH ×3 (01:25→22:38)
[2017-10-01] MEDS: methylPREDNISolone NA SUCC 125 MG/2 ML VIAL IVPUSH SCH ×4 (03:37→22:36)
[2017-10-01] MEDS: NYSTATIN 500,000 UNITS/5 ML SUSPENSION PO SCH ×4 (03:37→17:24)
[2017-10-01] MEDS: dilTIAZem HCL 30 MG TABLET (FP) PO SCH ×3 (06:55→22:35)
[2017-10-01] MEDS: METOCLOPRAMIDE HCL 10 MG TABLET (FP) PO SCH ×3 (06:55→22:36)
[2017-10-01] MEDS: INSULIN SLIDING SCALE (NOVOLOG) 1 VIAL SQ SCH ×4 (06:55→22:37)
[2017-10-01 07:02] LABS: BASO % 0.1 % (0-2.0); HEMATOCRIT 26.4 % (32.4-45.2); HEMOGLOBIN 8.6 GM/dL (10.7-15.3); LYMPH % 6.3 % (8-40); MCH 27.7 pg (25.7-33.7); MCHC 32.7 g/dl (32.0-36.0); MEAN CELL VOLUME 84.8 fl (80-96); MEAN PLT VOLUME 7.7 fl (7.5-11.1); MONO % 0.5 % (3.8-10.2); NEUT % 93.1 % (42.8-82.8); PLATELET COUNT 344 K/MM3 (134-434); RBC 3.11 M/mm3 (3.60-5.2); RDW 16.3 % (11.6-15.6); WHITE BLOOD COUNT 14.5 K/mm3 (4.0-10.0)
[2017-10-01 07:20] LABS: CHLORIDE 98 mmol/L (98-107); POTASSIUM 4.6 mmol/L (3.5-5.1); SODIUM 139 mmol/L (136-145)
[2017-10-01 07:34] LABS: ALBUMIN 2.4 g/dl (3.4-5.0); ALK PHOS 97 U/L (45-117); ANION GAP 6 (8-16); BILIRUBIN,TOTAL 0.2 mg/dL (0.2-1.0); BLOOD UREA NITROGEN 22 mg/dL (7-18); CALCIUM 8.4 mg/dL (8.5-10.1); CO2 35 mmol/L (21-32); CREATININE 0.5 mg/dL (0.55-1.02); GLUCOSE,RANDOM 178 mg/dL (74-106); MAGNESIUM 1.6 mg/dL (1.8-2.4); SGOT/AST 9 U/L (15-37); SGPT/ALT 25 U/L (12-78); TOT PROT 6.4 g/dl (6.4-8.2)
[2017-10-01] MEDS: ARFORMOTEROL TARTRATE 15 MCG/2 ML VIAL NEB SCH ×2 (07:38→20:32)
--- NOTE | 2017-10-01 08:10 | PN ---
Progress Note, Physician Chief Complaint: Frequent admissions, well known to me: Cardiac sarcoid, pulmonary sarcoid H/o ICD for syncope, VT, MRI + sarcoid DVT --On Eliquis Recent severe epistaxis, seen by laura---> dose changed to 2.5 BID Chronic diastolic CHF Multifocal atrial tachycardia and Paroxysmal A-Tach Frequent admissions for decompensated diastolic CHF or bronchospasm/Sarcoid exacerbations. Requires steroid tapers intermittently. She was recently discharged from here after a short admissions for decompensated diastolic CHF in the setting of Lasix discontinuation. Now readmitted for worsened SOB, cough for one day. In ER found to have elevated WBC, admitted for treatment of suspected PNA. She denies CP/ palps/edema/syncope. - Current Medication List Current Medications: Active Medications Albuterol Sulfate (Ventolin 0.083% Nebulizer Soln -) 1 amp NEB Q4H PRN PRN Reason: SHORT OF BREATH/WHEEZING Last Admin: 09/30/17 23:41 Dose: 1 amp Apixaban (Eliquis -) 2.5 mg PO BID [facility] Last Admin: 09/30/17 23:37 Dose: 2.5 mg Arformoterol Tartrate (Brovana (Restricted To Pulmonology/Resp) -) 1 amp NEB RBID [facility] Last Admin: 10/01/17 07:38 Dose: 1 amp Diltiazem HCl (Cardizem -) 30 mg PO TID [facility] Last Admin: 10/01/17 06:55 Dose: 30 mg Furosemide (Lasix Injection -) 40 mg IVPUSH DAILY [facility] Insulin Aspart (Novolog Vial Sliding Scale -) 1 vial SQ [facility]; Protocol Last Admin: 10/01/17 06:55 Dose: Not Given Insulin Detemir (Levemir Vial) 50 units SQ [facility] Lisinopril (Prinivil) 10 mg PO DAILY [facility] Methylprednisolone Sodium Succinate (Solu-Medrol -) 60 mg IVPUSH Q6H-IV [facility] Last Admin: 10/01/17 03:37 Dose: 60 mg Metoclopramide HCl (Reglan -) 5 mg PO TID [facility] Last Admin: 10/01/17 06:55 Dose: 5 mg Montelukast Sodium (Singulair -) 10 mg PO [facility] Last Admin: 09/30/17 23:51 Dose: 10 mg Morphine Sulfate (Ms Contin -) 15 mg PO BID [facility] Last Admin: 09/30/17 23:38 Dose: 15 mg Nitroglycerin (Nitrostat -) 0.4 mg SL PRN PRN PRN Reason: chest pain Nystatin (Nystatin Oral Suspension -) 100,000 units PO Q6HPO [facility] Last Admin: 10/01/17 07:05 Dose: 100,000 units Pantoprazole Sodium (Protonix -) 40 mg PO [facility] Pregabalin (Lyrica -) 75 mg PO BID [facility] Last Admin: 09/30/17 23:38 Dose: 75 mg Senna (Senna -) 1 tab PO HS [facility] Last Admin: 09/30/17 23:51 Dose: 1 tab Sodium Chloride ([place] Nasal [place] -) 2 spray NS BID [facility] Last Admin: 10/01/17 01:25 Dose: Not Given - Objective Vital Signs: Vital Signs Temperature 99.5 F 10/01/17 06:44 Pulse Rate 92 H 10/01/17 05:53 Respiratory Rate 20 10/01/17 05:53 Blood Pressure 121/77 10/01/17 05:53 O2 Sat by Pulse Oximetry (%) 100 09/30/17 23:20 Constitutional: Yes: Calm Eyes: Yes: Conjunctiva Clear Cardiovascular: Yes: Regular Rate and Rhythm Respiratory: Yes: Rhonchi (scattered rhonchi/dry rales. No active wheezing) Gastrointestinal: Yes: Soft, Abdomen, Obese Edema: No Peripheral Pulses WNL: Yes Neurological: Yes: Alert, Oriented ...Motor Strength: WNL Labs: CBC, BMP 10/01/17 05:30 10/01/17 05:30 Laboratory Tests 09/30/17 10/01/17 11:25 05:30 Creatine Kinase 17 L 15 L Troponin I < 0.02 < 0.02 B-Natriuretic Peptide 51.59 - ....Imaging Chest X-ray: Image Reviewed EKG: Image Reviewed (Sinus tachycardia 127bpm, fusion complexes. No acute ST changes.) Assessment/Plan IMP: Cardiac sarcoid, pulmonary sarcoid with ILD, PHTN H/o ICD for syncope, VT, MRI + sarcoid DVT --On Eliquis Recent severe epistaxis, seen by heme and ENT---> dose changed to 2.5 BID Chronic diastolic CHF Multifocal atrial tachycardia and Paroxysmal A-Tach Now admitted with worsened cough and SOB, elevated WBC, suspected PNA Overall, appears euvolemic. REC: 1. Supplimental O2, nebs, steroid taper, pulmonary evaluation. Recent Chest CT in August shows honeycombing, ILD changes. 2. Agree with IV Lasix while she is receiving IV abx and steroids which have caused her to retain volume in the past: she is quite prone to developing decompensated diastolic CHF with small changes in volume. Will repeat echo 3. Cont. TYRON as BP allows. 4. PAT/MAT likely due to underlying lung disease. Continue tele. Continue short acting Cardizem-- has had episodes of intermittent hypotension previously while on extended release Cardizem and Lasix 5. Continue Eliquis at the Heme recommended dose (see previous admissions) for DVT history.
[2017-10-01 08:57] LABS: PLATELET ESTIMATE NORMAL; TEAR DROP CELLS 1+
[2017-10-01] MEDS: LISINOPRIL 10 MG TABLET (FP) PO SCH (09:18)
[2017-10-01] MEDS: FUROSEMIDE 40 MG/4 ML INJECTABLE VIAL IVPUSH SCH (09:18)
[2017-10-01] MEDS: morphine SO4 SUSTAINED ACTING 15 MG TABLET.SA PO SCH ×2 (09:18→22:35)
[2017-10-01] MEDS: APIXABAN 2.5 MG TABLET PO SCH ×2 (09:18→22:36)
[2017-10-01] MEDS: PREGABALIN 75 MG CAPSULE PO SCH ×2 (09:29→22:36)
--- NOTE | 2017-10-01 09:55 | PN ---
Progress Note (short form) - Note Progress Note: 62 y/o female found taking meds. NAD. 4LO2 in place. Pt states that she feels a little better. Appears comfortable. A& O x 3. Temperature 99.5 F 10/01/17 06:44 Pulse Rate 92 H 10/01/17 05:53 Respiratory Rate 20 10/01/17 05:53 Blood Pressure 121/77 10/01/17 05:53 O2 Sat by Pulse Oximetry (%) 100 09/30/17 23:20 HEENT- NL, Nasal cannula in place Neck- Supple Lungs- Wheezing throughout Heart- S1/S2 Abd- Soft, NT Ext- No LE edema Montelukast Na [Singulair -] 10 mg PO HS 05/02/17 Pregabalin [Lyrica -] 75 mg PO BID 05/02/17 Sennosides [Senna -] 1 tab PO HS 05/02/17 Morphine *Sr* [Ms Contin -] 15 mg PO BID 7 Days #14 tablet.sa MDD 30 05/10/17 Metoclopramide HCl [Reglan] 5 mg PO TID 08/29/17 Nitroglycerin Sublingual [Nitrostat -] 0.4 mg .ROUTE ASDIR PRN 08/29/17 Nystatin Oral Suspension - [Nystatin Oral Susp 176644 Units/5 ML -] 100,000 units PO Q6H 08/29/17 Tiotropium [place] [Spiriva Respimat] 2.5 mcg IH DAILY 08/29/17 Insulin (Levemir) [Levemir Vial] 50 units SQ HS ml 09/04/17 Insulin Sliding Scale [Novolog Vial Sliding Scale -] 0 units SQ ACHS 09/06/17 Apixaban [Eliquis -] 2.5 mg PO BID tablet 09/09/17 Albuterol 0.083% Nebulizer Gisela [Ventolin 0.083% Nebulizer Soln -] 1 amp NEB Q4H PRN amp 09/22/17 Apixaban [Eliquis -] 2.5 mg PO BID 30 Days #60 tablet 09/22/17 Arformoterol Tartrate [Brovana -] 1 amp NEB RBID 30 Days #60 amp 09/22/17 Diltiazem [Cardizem -] 30 mg PO TID 30 Days #90 tablet 09/22/17 Furosemide [Lasix -] 40 mg PO DAILY 30 Days #30 tablet 09/22/17 Insulin Sliding Scale [Novolog Vial Sliding Scale -] 1 vial SQ ACHS units 09/22 Lisinopril [Prinivil] 10 mg PO DAILY 30 Days #30 tablet 09/22/17 Montelukast Na [Singulair -] 10 mg PO HS 30 Days #30 tablet 09/22/17 Morphine *Sr* [Ms Contin -] 15 mg PO BID 7 Days #14 tablet.sa MDD 30 09/22/17 Omeprazole 40 mg PO HS 30 Days #30 capsule. 09/22/17 Sodium Chloride Nasal [place] [[place] Nasal [place] -] 2 spray NS BID 30 Days # 1 spray 09/22/17 predniSONE [Deltasone -] 40 mg PO DAILY 30 Days #60 tablet 09/22/17 #Elevated WBC Cont to trend- Decreasing now 14.5 #IDDM Monitor BG. Continue Levemir/ Novolog #Pulmonary/ Cardiac Sarcoid Continue o2/ steroids Pulm consult pending Problem List - Problems (1) Leukocytosis Code(s): D72.829 - ELEVATED WHITE BLOOD CELL COUNT, UNSPECIFIED (2) Pneumonia Code(s): J18.9 - PNEUMONIA, UNSPECIFIED ORGANISM (3) SOB (shortness of breath) Code(s): R06.02 - SHORTNESS OF BREATH (4) Acute on chronic respiratory failure with hypoxia and hypercapnia Code(s): J96.21 - ACUTE AND CHRONIC RESPIRATORY FAILURE WITH HYPOXIA; J96.22 - ACUTE AND CHRONIC RESPIRATORY FAILURE WITH HYPERCAPNIA (5) CHF (congestive heart failure) Code(s): I50.9 - HEART FAILURE, UNSPECIFIED Qualifiers: Heart failure type: unspecified Heart failure chronicity: unspecified Qualified Code(s): I50.9 - Heart failure, unspecified (6) COPD (chronic obstructive pulmonary disease) Code(s): J44.9 - CHRONIC OBSTRUCTIVE PULMONARY DISEASE, UNSPECIFIED (7) Chronic diastolic CHF (congestive heart failure) Code(s): I50.32 - CHRONIC DIASTOLIC (CONGESTIVE) HEART FAILURE (8) DVT (deep venous thrombosis) Code(s): I82.409 - ACUTE EMBOLISM AND THOMBOS UNSP DEEP VN UNSP LOWER EXTREMITY Qualifiers: Laterality: unspecified laterality (9) Diabetes mellitus Code(s): E11.9 - TYPE 2 DIABETES MELLITUS WITHOUT COMPLICATIONS Qualifiers: Diabetes mellitus type: type 2 Diabetes mellitus complication status: without complication (10) ICD (implantable cardioverter-defibrillator) in place Code(s): Z95.810 - PRESENCE OF AUTOMATIC (IMPLANTABLE) CARDIAC DEFIBRILLATOR (11) Interstitial pulmonary fibrosis Code(s): J84.10 - PULMONARY FIBROSIS, UNSPECIFIED (12) Multifocal atrial tachycardia Code(s): I47.1 - SUPRAVENTRICULAR TACHYCARDIA (13) Obstructive sleep apnea Code(s): G47.33 - OBSTRUCTIVE SLEEP APNEA (ADULT) (PEDIATRIC) (14) Oxygen dependent Code(s): Z99.81 - DEPENDENCE ON SUPPLEMENTAL OXYGEN (15) PHT (pulmonary hypertension) Code(s): I27.20 - PULMONARY HYPERTENSION, UNSPECIFIED (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
--- NOTE | 2017-10-01 10:50 | PN ---
Progress Note (short form) - Note Progress Note: PULMONARY CONSULTATION DICTATED 09/27/17 IMP ACUTE ON CHRONIC HYPOXEMIC/HYPERCAPNEIC RESPIRATORY FAILURE ADVANCED PULMONARY SARCOID CARDIAC SARCOID ? PNEUMONIA DIASTOLIC HF PULMONARY HTN HTN H/O HEP C OSAS H/O DVT MAT PLAN IV STEROIDS INHALED BRONCHODILATORS ABX LASIX O2 BIPAP AT NIGHT AND PRN DAILY WTS AC F/U CHEST X-RAYS DR EUBANKS Problem List - Problems (1) Leukocytosis Code(s): D72.829 - ELEVATED WHITE BLOOD CELL COUNT, UNSPECIFIED (2) Pneumonia Code(s): J18.9 - PNEUMONIA, UNSPECIFIED ORGANISM (3) SOB (shortness of breath) Code(s): R06.02 - SHORTNESS OF BREATH (4) Acute on chronic respiratory failure with hypoxia and hypercapnia Code(s): J96.21 - ACUTE AND CHRONIC RESPIRATORY FAILURE WITH HYPOXIA; J96.22 - ACUTE AND CHRONIC RESPIRATORY FAILURE WITH HYPERCAPNIA (5) CHF (congestive heart failure) Code(s): I50.9 - HEART FAILURE, UNSPECIFIED Qualifiers: Heart failure type: unspecified Heart failure chronicity: unspecified Qualified Code(s): I50.9 - Heart failure, unspecified (6) COPD (chronic obstructive pulmonary disease) Code(s): J44.9 - CHRONIC OBSTRUCTIVE PULMONARY DISEASE, UNSPECIFIED (7) Chronic diastolic CHF (congestive heart failure) Code(s): I50.32 - CHRONIC DIASTOLIC (CONGESTIVE) HEART FAILURE (8) DVT (deep venous thrombosis) Code(s): I82.409 - ACUTE EMBOLISM AND THOMBOS UNSP DEEP VN UNSP LOWER EXTREMITY Qualifiers: Laterality: unspecified laterality (9) Diabetes mellitus Code(s): E11.9 - TYPE 2 DIABETES MELLITUS WITHOUT COMPLICATIONS Qualifiers: Diabetes mellitus type: type 2 Diabetes mellitus complication status: without complication (10) ICD (implantable cardioverter-defibrillator) in place Code(s): Z95.810 - PRESENCE OF AUTOMATIC (IMPLANTABLE) CARDIAC DEFIBRILLATOR (11) Interstitial pulmonary fibrosis Code(s): J84.10 - PULMONARY FIBROSIS, UNSPECIFIED (12) Multifocal atrial tachycardia Code(s): I47.1 - SUPRAVENTRICULAR TACHYCARDIA (13) Obstructive sleep apnea Code(s): G47.33 - OBSTRUCTIVE SLEEP APNEA (ADULT) (PEDIATRIC) (14) Oxygen dependent Code(s): Z99.81 - DEPENDENCE ON SUPPLEMENTAL OXYGEN (15) PHT (pulmonary hypertension) Code(s): I27.20 - PULMONARY HYPERTENSION, UNSPECIFIED (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
--- NOTE | 2017-10-01 11:39 | CONS ---
DATE OF CONSULTATION: 10/01/2017 REFERRING PHYSICIAN: Whit Fuchs MD HISTORY OF PRESENT ILLNESS: The patient is a 62-year-old black female known to me from previous hospitalization and past medical history includes advanced sarcoid with pulmonary fibrosis, interstitial lung disease, cardiac sarcoid, atrial fibrillation, congestive heart failure, GERD, hyperlipidemia, hepatitis C, hypertension, anemia, diabetes, urinary retention, currently maintained on home O2 as well as nocturnal BiPAP, admitted to [facility] with complaint of shortness of breath, cough, nonproductive, and chills of 2 days duration. Patient denied any fevers, nausea, vomiting, diaphoresis. She denied any hemoptysis. Patient was recently hospitalized secondary to acute on chronic hypoxemic respiratory failure. She was treated with Lasix and supplemental O2, bronchodilators, and Medrol with good clinical response. She was discharged in stable condition. She was readmitted yesterday with the above complaints. Patient denies any hemoptysis. She is a nonsmoker. There is no history of occupational exposures to chemicals or fumes. On current hospitalization, she was evaluated by Dr. Lockhart for cardiology consultation. She was placed on supplemental O2, steroids, as well as again IV Lasix. PAST MEDICAL HISTORY: Again includes advanced pulmonary sarcoid to cardiac sarcoid, atrial fibrillation, obstructive sleep apnea, chronic hypoxemia, history of DVT, multifocal and paroxysmal atrial tachycardia, history of ICD for syncope, ventricular tachycardia, MRI again sarcoid, diastolic heart failure, hypertension. REVIEW OF SYSTEMS: Positive for shortness of breath. Positive for cough. Positive for chills. No chest pain, no palpitations, no wheezing, no hemoptysis, no abdominal pain. CURRENT MEDICATIONS: Include Solu-Medrol 60 q.6, Prinivil, Eliquis, Lyrica, albuterol, Brovana, Cardizem, Senna, [place]borne Sullivan, NovoLog, Levemir, Singulair, Lasix, Nitrostat, [place]-Contin, nystatin oral, and Protonix. PHYSICAL EXAMINATION: General: The patient is a well-developed, well-nourished female, awake, alert, currently in no acute distress. Vital signs: She is currently afebrile, blood pressure is 121/77, respiratory rate is 20, O2 saturation is 95% on 4 L. HEENT: Head is normocephalic atraumatic. Neck: Supple. Heart: Regular, S1, S2. Chest: Bilateral crackles throughout. Abdomen: Soft. Bowel sounds are positive. Extremities: No cyanosis or edema. LABORATORIES: WBC is 14.5, hemoglobin 8.6, hematocrit 26.4, platelet count of 344,000. BUN 22, creatinine 0.5. INR is 1.2. Chest x-ray noted increased bilateral pulmonary vascular congestion changes bilaterally. IMPRESSION: 1. Acute on chronic hypoxemic hypercapnic respiratory failure secondary to 2. Advanced pulmonary sarcoid with pulmonary fibrosis, interstitial lung disease. 3. Cardiac sarcoid. 4. Diastolic heart failure. 5. History of paroxysmal atrial tachycardia. 6. History of deep venous thrombosis, on Eliquis. 7. History of ventricular tachycardia status post implantable cardioverter defibrillator. 8. Hypertension. 9. Obstructive sleep apnea. 10. History of hepatitis C. 11. Pulmonary hypertension PLAN: IV Lasix, supplemental O2, nocturnal BiPAP as well as p.r.n. during the day if patient develops increased respiratory distress, daily weights, IV steroids, inhaled bronchodilators, followup chest x-rays, antibiotic, sputum for C and S. STACY EUBANKS M.D. BLAYNE/[id number]
--- NOTE | 2017-10-01 13:22 | PN ---
Progress Note (short form) - Note Progress Note: ID Full note dictated Selected Entries 10/01/17 10/01/17 10/01/17 02:00 05:53 06:44 Temperature 98.5 F 98.2 F 99.5 F Lung Wheezing rales Cor S1 S2 Ext Edema Microbiology Laboratory Tests 09/30/17 10/01/17 10/01/17 21:20 05:30 05:30 WBC 14.5 H Hgb 8.6 L Plt Count 344 Neutrophils % 93.1 H Band Neutrophils % 1.0 Lymphocytes % 6.3 L Lymphocytes % (Manual) 7.2 L D BUN 22 H Creatinine 0.5 L Lactic Acid 2.4 H* Assessment Several admissions for exacerbation of interstitial lung disease Chest xray difficult to interpret Multiple drug allergies !! Plan Inclined to observe off antibiotics for now IF becomes febrile give Merrick and Bruno Ball MD Problem List - Problems (1) Pneumonia Code(s): J18.9 - PNEUMONIA, UNSPECIFIED ORGANISM (2) CHF (congestive heart failure) Code(s): I50.9 - HEART FAILURE, UNSPECIFIED Qualifiers: Heart failure type: unspecified Heart failure chronicity: unspecified Qualified Code(s): I50.9 - Heart failure, unspecified (3) COPD (chronic obstructive pulmonary disease) Code(s): J44.9 - CHRONIC OBSTRUCTIVE PULMONARY DISEASE, UNSPECIFIED (4) Interstitial pulmonary fibrosis Code(s): J84.10 - PULMONARY FIBROSIS, UNSPECIFIED
--- NOTE | 2017-10-01 13:51 | CONS ---
DATE OF CONSULTATION: DATE OF DICTATION: 10/01/2017 HISTORY: This is one of multiple admissions for this 62-year-old female with multiple comorbidities including chronic interstitial lung disease related to sarcoidosis. She has pulmonary fibrosis and has been admitted to the hospital numerous times for exacerbation of chronic lung disease. We have seen her in the past for antibiotic management including in August 2017 when she was seen by Dr. Spence and treated with a course of vancomycin and aztreonam due to multiple antibiotic allergies. She had no fever here on admission and was seen in consultation by the pulmonary service. Her x-ray is difficult to evaluate given her chronic lung disease, and she was, however, given a dose of vancomycin and aztreonam. She denies any fever or chills. She has cough, which is chronic. Denies any sputum production or hemoptysis. She has been on steroids awake and oriented and once again is on steroids now. PAST MEDICAL HISTORY: Includes advanced pulmonary sarcoidosis with fibrosis, atrial fibrillation, sleep apnea, COPD, history of DVT, paroxysmal atrial tachycardia, status post ICD for ventricular tachycardia, diastolic heart failure, and hypertension. CURRENT MEDICATIONS: Includes Solu-Medrol, Prinivil, Eliquis, Lyrica, , Brovana, Cardizem, insulin, Levemir, Singulair, Lasix, Nitrostat, MS Contin, Protonix. ALLERGIES: PENICILLINS and CEPHALOSPORINS. Multiple other drug allergies. FAMILY HISTORY: Noncontributory. REVIEW OF SYSTEMS: Respiratory: Chronic shortness of breath with current exacerbation of shortness of breath. Chronic cough. No hemoptysis, sputum production. Cardiac: No chest pain, palpitations. Gastrointestinal: No abdominal pain, vomiting, diarrhea. Genitourinary: No dysuria, hematuria. PHYSICAL EXAMINATION: General: Reveals a heavy-set woman alert in no acute distress. Alert and oriented. Vital Signs: Her temperature is 99.5, earlier today 98.2, pulse 92, blood pressure 127/70, respirations 20. Mild tachypnea. Neck: Supple. Lungs: With bilateral inspiratory and expiratory wheezing and right-sided crackles. Heart: S1, S2. Distant heart sounds. No audible murmur. Abdomen: Soft, nontender without hepatosplenomegaly. Extremities: Without clubbing, cyanosis. Minimal peripheral edema. LABORATORY DATA: White count 14.5, hemoglobin 8.6, platelets 344, BUN 22, creatinine 0.5, lactic acid 2.4. Liver enzymes within normal limits. Two sets of blood cultures thus far no growth. Chest x-ray was reviewed including the digital image with a left pacemaker in situ, pulmonary congestive changes seen. ASSESSMENT: A 62-year-old female with interstitial lung disease secondary to sarcoidosis, multiple admissions for exacerbation. PLAN: At this point, clinically I do not feel she has active infection. I discussed this with Dr. Rivera. Particularly in view of her multiple drug allergies, I am inclined to observe her off of antibiotics knowing that at the current time her admitting blood cultures are no growth. We will follow carefully, however, and should she have any temperature would empirically start her on antibiotic with a combination of vancomycin and aztreonam, which she has tolerated in the past. JACK AMBRIZ M.D. [id number]
[2017-10-01] MEDS: ALBUTEROL SO4 0.083% IH SOL 2.5 MG/3 ML VIAL.NEB. NEB PRN ×2 (16:06→23:35)
[2017-10-01] MEDS: INSULIN (LEVEMIR) 100 UNITS/ML UNITS SQ SCH (22:34)
[2017-10-01] MEDS: MONTELUKAST NA 10 MG TABLET PO SCH (22:35)
[2017-10-01] MEDS: SENNOSIDES 8.6MG TABLET (FP) PO SCH (22:35)
[2017-10-01] MEDS: PANTOPRAZOLE 40 MG TABLET (FP) PO SCH (22:36)
[2017-10-02] MEDS: NYSTATIN 500,000 UNITS/5 ML SUSPENSION PO SCH ×4 (01:32→17:39)
[2017-10-02] MEDS: methylPREDNISolone NA SUCC 125 MG/2 ML VIAL IVPUSH SCH ×4 (03:36→22:23)
[2017-10-02] MEDS: dilTIAZem HCL 30 MG TABLET (FP) PO SCH ×3 (06:43→22:23)
[2017-10-02] MEDS: METOCLOPRAMIDE HCL 10 MG TABLET (FP) PO SCH ×3 (06:43→22:25)
[2017-10-02] MEDS: INSULIN SLIDING SCALE (NOVOLOG) 1 VIAL SQ SCH ×4 (06:44→22:23)
[2017-10-02 07:46] LABS: BASO % 0.2 % (0-2.0); HEMATOCRIT 26.2 % (32.4-45.2); HEMOGLOBIN 8.5 GM/dL (10.7-15.3); LYMPH % 6.4 % (8-40); MCH 27.8 pg (25.7-33.7); MCHC 32.6 g/dl (32.0-36.0); MEAN CELL VOLUME 85.2 fl (80-96); MEAN PLT VOLUME 7.5 fl (7.5-11.1); MONO % 1.5 % (3.8-10.2); NEUT % 91.9 % (42.8-82.8); PLATELET COUNT 343 K/MM3 (134-434); RBC 3.07 M/mm3 (3.60-5.2); RDW 16.4 % (11.6-15.6); WHITE BLOOD COUNT 14.6 K/mm3 (4.0-10.0)
[2017-10-02] MEDS: ARFORMOTEROL TARTRATE 15 MCG/2 ML VIAL NEB SCH ×2 (08:57→20:27)
[2017-10-02 09:03] LABS: ANION GAP 7 (8-16); BLOOD UREA NITROGEN 31 mg/dL (7-18); CALCIUM 8.9 mg/dL (8.5-10.1); CHLORIDE 96 mmol/L (98-107); CO2 36 mmol/L (21-32); CREATININE 0.7 mg/dL (0.55-1.02); POTASSIUM 4.7 mmol/L (3.5-5.1); SODIUM 139 mmol/L (136-145)
[2017-10-02] MEDS ORDERED: PT OWN MED DRAWER 7, Y5N ONE (09:17)
[2017-10-02] MEDS: morphine SO4 SUSTAINED ACTING 15 MG TABLET.SA PO SCH ×2 (09:29→22:21)
[2017-10-02] MEDS: FUROSEMIDE 40 MG/4 ML INJECTABLE VIAL IVPUSH SCH (09:29)
[2017-10-02] MEDS: APIXABAN 2.5 MG TABLET PO SCH ×2 (09:30→22:23)
[2017-10-02] MEDS: LISINOPRIL 10 MG TABLET (FP) PO SCH (09:30)
[2017-10-02] MEDS: PREGABALIN 75 MG CAPSULE PO SCH ×2 (09:30→22:23)
[2017-10-02] MEDS: SODIUM CHLORIDE NASAL SPRAY 44 ML BOTTLE NS SCH ×2 (10:03→22:24)
[2017-10-02 10:11] LABS: ANISOCYTOSIS 1+; PLATELET ESTIMATE ADEQUATE
[2017-10-02 10:16] LABS: GLUCOSE,RANDOM 328 mg/dL (74-106)
--- NOTE | 2017-10-02 11:11 | PN ---
Progress Note, Physician Chief Complaint: Pt A&Ox3; denies chest pain or dyapnse. History of Present Illness: 62 y/o afebrile black female with PMH cardiac sarcoidosis-->ICD, IDDM, HLD, HTN , COPD/asthma on 4L O2 via NC at home, Afib (on Eliquis), diastolic CHF with moderate pulmonary HTN (ECHO 01/2017), obesity, s/p lower back surgery ?2009--> weakness in left leg, now c/o cough and difficulty breathing since last night. HISTORY OF PRESENT ILLNESS: Patient states she has a dry cough that is worse at night. She is on daily prednisone, albuterol, spiriva but none of those are helping. She denies fever, runny nose, nasal congestion, sore throat, n/v/d, CP , abd pain, back pain, hematuria, dysuria. She does admit her grandchild had a cough. PCP: Dr. Fuchs - Current Medication List Current Medications: Active Medications Albuterol Sulfate (Ventolin 0.083% Nebulizer Soln -) 1 amp NEB Q4H PRN PRN Reason: SHORT OF BREATH/WHEEZING Last Admin: 10/01/17 23:35 Dose: 1 amp Apixaban (Eliquis -) 2.5 mg PO BID [facility] Last Admin: 10/02/17 09:30 Dose: 2.5 mg Arformoterol Tartrate (Brovana (Restricted To Pulmonology/Resp) -) 1 amp NEB RBID [facility] Last Admin: 10/02/17 08:57 Dose: 1 amp Diltiazem HCl (Cardizem -) 30 mg PO TID [facility] Last Admin: 10/02/17 06:43 Dose: 30 mg Furosemide (Lasix Injection -) 40 mg IVPUSH DAILY [facility] Last Admin: 10/02/17 09:29 Dose: 40 mg Insulin Aspart (Novolog Vial Sliding Scale -) 1 vial SQ ACHS [facility]; Protocol Last Admin: 10/02/17 06:44 Dose: 6 units Insulin Detemir (Levemir Vial) 50 units SQ HS [facility] Last Admin: 10/01/17 22:34 Dose: 50 units Lisinopril (Prinivil) 10 mg PO DAILY [facility] Last Admin: 10/02/17 09:30 Dose: 10 mg Methylprednisolone Sodium Succinate (Solu-Medrol -) 60 mg IVPUSH Q6H-IV [facility] Last Admin: 10/02/17 09:29 Dose: 60 mg Metoclopramide HCl (Reglan -) 5 mg PO TID [facility] Last Admin: 10/02/17 06:43 Dose: 5 mg Montelukast Sodium (Singulair -) 10 mg PO HS [facility] Last Admin: 10/01/17 22:35 Dose: 10 mg Morphine Sulfate (Ms Contin -) 15 mg PO BID [facility] Last Admin: 10/02/17 09:29 Dose: 15 mg Nitroglycerin (Nitrostat -) 0.4 mg SL PRN PRN PRN Reason: chest pain Nystatin (Nystatin Oral Suspension -) 100,000 units PO Q6HPO [facility] Last Admin: 10/02/17 06:44 Dose: 100,000 units Pantoprazole Sodium (Protonix -) 40 mg PO HS [facility] Last Admin: 10/01/17 22:36 Dose: 40 mg Pregabalin (Lyrica -) 75 mg PO BID [facility] Last Admin: 10/02/17 09:30 Dose: 75 mg Senna (Senna -) 1 tab PO [facility] Last Admin: 10/01/17 22:35 Dose: 1 tab Sodium Chloride ([place] Nasal [place] -) 2 spray NS BID [facility] Last Admin: 10/01/17 22:38 Dose: 2 spray - Objective Vital Signs: Vital Signs Temperature 97.8 F 10/02/17 09:00 Pulse Rate 87 10/02/17 09:00 Respiratory Rate 18 10/02/17 09:00 Blood Pressure 104/75 10/02/17 09:00 O2 Sat by Pulse Oximetry (%) 98 10/02/17 09:00 Constitutional: Yes: Well Nourished, No Distress Eyes: Yes: WNL HENT: Yes: WNL Neck: Yes: WNL Cardiovascular: Yes: Regular Rate and Rhythm, S1, S2 Labs: CBC, BMP 10/02/17 05:15 10/02/17 05:15 Problem List - Problems (1) Leukocytosis Code(s): D72.829 - ELEVATED WHITE BLOOD CELL COUNT, UNSPECIFIED (2) Pneumonia Code(s): J18.9 - PNEUMONIA, UNSPECIFIED ORGANISM (3) SOB (shortness of breath) Code(s): R06.02 - SHORTNESS OF BREATH (4) COPD exacerbation Code(s): J44.1 - CHRONIC OBSTRUCTIVE PULMONARY DISEASE W (ACUTE) EXACERBATION (5) Cardiac sarcoidosis Assessment/Plan: ECHO: normal LVEF; mild TR; moderate pulmonary HTN. Code(s): 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 (6) Chronic diastolic CHF (congestive heart failure) Assessment/Plan: No JVD BNP wnl cxr: BILATERAL hilar congestive changes. On diltiazem, lisinopril, furosemide. F/u BUN/Cr, electrolytes, Daily wt, Is and Os. Code(s): I50.32 - CHRONIC DIASTOLIC (CONGESTIVE) HEART FAILURE (7) Chronic low back pain Code(s): M54.5 - LOW BACK PAIN; G89.29 - OTHER CHRONIC PAIN (8) Diabetes mellitus Code(s): E11.9 - TYPE 2 DIABETES MELLITUS WITHOUT COMPLICATIONS Qualifiers: Diabetes mellitus type: type 2 Diabetes mellitus complication status: without complication (9) ICD (implantable cardioverter-defibrillator) in place Code(s): Z95.810 - PRESENCE OF AUTOMATIC (IMPLANTABLE) CARDIAC DEFIBRILLATOR (10) Interstitial lung disease Code(s): J84.9 - INTERSTITIAL PULMONARY DISEASE, UNSPECIFIED (11) Obstructive sleep apnea Code(s): G47.33 - OBSTRUCTIVE SLEEP APNEA (ADULT) (PEDIATRIC) (12) PHT (pulmonary hypertension) Code(s): I27.20 - PULMONARY HYPERTENSION, UNSPECIFIED
--- NOTE | 2017-10-02 12:27 | PN ---
Progress Note, Physician History of Present Illness: No c/o dyspnea at rest No c/o chest pain, cough No fever/ chills Afebrile with elevated WBC on steroids - Current Medication List Current Medications: Active Medications Albuterol Sulfate (Ventolin 0.083% Nebulizer Soln -) 1 amp NEB Q4H PRN PRN Reason: SHORT OF BREATH/WHEEZING Last Admin: 10/01/17 23:35 Dose: 1 amp Apixaban (Eliquis -) 2.5 mg PO BID [facility] Last Admin: 10/02/17 09:30 Dose: 2.5 mg Arformoterol Tartrate (Brovana (Restricted To Pulmonology/Resp) -) 1 amp NEB RBID [facility] Last Admin: 10/02/17 08:57 Dose: 1 amp Diltiazem HCl (Cardizem -) 30 mg PO TID [facility] Last Admin: 10/02/17 06:43 Dose: 30 mg Furosemide (Lasix Injection -) 40 mg IVPUSH DAILY [facility] Last Admin: 10/02/17 09:29 Dose: 40 mg Insulin Aspart (Novolog Vial Sliding Scale -) 1 vial SQ ACHS [facility]; Protocol Last Admin: 10/02/17 11:49 Dose: 8 units Insulin Detemir (Levemir Vial) 50 units SQ HS [facility] Last Admin: 10/01/17 22:34 Dose: 50 units Lisinopril (Prinivil) 10 mg PO DAILY [facility] Last Admin: 10/02/17 09:30 Dose: 10 mg Methylprednisolone Sodium Succinate (Solu-Medrol -) 60 mg IVPUSH Q6H-IV [facility] Last Admin: 10/02/17 09:29 Dose: 60 mg Metoclopramide HCl (Reglan -) 5 mg PO TID [facility] Last Admin: 10/02/17 06:43 Dose: 5 mg Montelukast Sodium (Singulair -) 10 mg PO HS [facility] Last Admin: 10/01/17 22:35 Dose: 10 mg Morphine Sulfate (Ms Contin -) 15 mg PO BID [facility] Last Admin: 10/02/17 09:29 Dose: 15 mg Nitroglycerin (Nitrostat -) 0.4 mg SL PRN PRN PRN Reason: chest pain Nystatin (Nystatin Oral Suspension -) 100,000 units PO Q6HPO [facility] Last Admin: 10/02/17 06:44 Dose: 100,000 units Pantoprazole Sodium (Protonix -) 40 mg PO HS [facility] Last Admin: 10/01/17 22:36 Dose: 40 mg Pregabalin (Lyrica -) 75 mg PO BID [facility] Last Admin: 10/02/17 09:30 Dose: 75 mg Senna (Senna -) 1 tab PO HS [facility] Last Admin: 10/01/17 22:35 Dose: 1 tab Sodium Chloride ([place] Nasal [place] -) 2 spray NS BID [facility] Last Admin: 10/01/17 22:38 Dose: 2 spray - Objective Vital Signs: Vital Signs Temperature 97.8 F 10/02/17 09:00 Pulse Rate 87 10/02/17 09:00 Respiratory Rate 18 10/02/17 09:00 Blood Pressure 104/75 10/02/17 09:00 O2 Sat by Pulse Oximetry (%) 98 10/02/17 09:00 Constitutional: Yes: No Distress, Obese Eyes: Yes: Conjunctiva Clear Cardiovascular: Yes: Regular Rate and Rhythm, S1, S2 Respiratory: Yes: Other (crepitations bilaterally) Gastrointestinal: Yes: Normal Bowel Sounds, Soft. No: Tenderness Edema: LLE: 1+, RLE: 1+ Labs: CBC, BMP 10/02/17 05:15 10/02/17 05:15 Assessment/Plan COPD exacerbation Pulmonary fibrosis Antibiotic allergies Off antibiotics Observe
[2017-10-02 13:24] VITALS: BMI 31.8
--- NOTE | 2017-10-02 13:45 | PN ---
Progress Note (short form) - Note Progress Note: PULMONARY States breathing is about the same. Still with chest tightness, cough and wheezing. Vital Signs Period Temp Pulse Resp BP Sys/Londono Pulse Ox Last 24 Hr 97.6 F-98.4 F 73-103 18-18 104-125/61-75 98-98 Gen: NAD at rest Heart: RRR Lung: bilateral rhonchi, rales Abd: soft, nontender Ext: no edema CBC, BMP 10/02/17 05:15 10/02/17 05:15 Active Medications Albuterol Sulfate (Ventolin 0.083% Nebulizer Soln -) 1 amp NEB Q4H PRN PRN Reason: SHORT OF BREATH/WHEEZING Last Admin: 10/01/17 23:35 Dose: 1 amp Apixaban (Eliquis -) 2.5 mg PO BID [facility] Last Admin: 10/02/17 09:30 Dose: 2.5 mg Arformoterol Tartrate (Brovana (Restricted To Pulmonology/Resp) -) 1 amp NEB RBID [facility] Last Admin: 10/02/17 08:57 Dose: 1 amp Diltiazem HCl (Cardizem -) 30 mg PO TID [facility] Last Admin: 10/02/17 06:43 Dose: 30 mg Furosemide (Lasix Injection -) 40 mg IVPUSH DAILY [facility] Last Admin: 10/02/17 09:29 Dose: 40 mg Insulin Aspart (Novolog Vial Sliding Scale -) [address] [facility]; Protocol Last Admin: 10/02/17 11:49 Dose: 8 units Insulin Detemir (Levemir Vial) 50 units SQ [facility] Last Admin: 10/01/17 22:34 Dose: 50 units Lisinopril (Prinivil) 10 mg PO DAILY [facility] Last Admin: 10/02/17 09:30 Dose: 10 mg Methylprednisolone Sodium Succinate (Solu-Medrol -) 60 mg IVPUSH Q6H-IV [facility] Last Admin: 10/02/17 09:29 Dose: 60 mg Metoclopramide HCl (Reglan -) 5 mg PO TID [facility] Last Admin: 10/02/17 06:43 Dose: 5 mg Montelukast Sodium (Singulair -) 10 mg PO HS [facility] Last Admin: 10/01/17 22:35 Dose: 10 mg Morphine Sulfate (Ms Contin -) 15 mg PO BID [facility] Last Admin: 10/02/17 09:29 Dose: 15 mg Nitroglycerin (Nitrostat -) 0.4 mg SL PRN PRN PRN Reason: chest pain Nystatin (Nystatin Oral Suspension -) 100,000 units PO Q6HPO [facility] Last Admin: 10/02/17 06:44 Dose: 100,000 units Pantoprazole Sodium (Protonix -) 40 mg PO HS [facility] Last Admin: 10/01/17 22:36 Dose: 40 mg Pregabalin (Lyrica -) 75 mg PO BID [facility] Last Admin: 10/02/17 09:30 Dose: 75 mg Senna (Senna -) 1 tab PO [facility] Last Admin: 10/01/17 22:35 Dose: 1 tab Sodium Chloride ([place] Nasal [place] -) 2 spray NS BID [facility] Last Admin: 10/01/17 22:38 Dose: 2 spray A/P Acute on Chronic Hypoxic and Hypercapneic Respiratory Failure Pulmonary Sarcoidosis Asthma LV Diastolic Dysfunction Pulmonary HTN Obstructive Sleep Apnea MAT h/o DVT - continue medrol at current dose - inhaled bronchodilators standing and PRN - O2 to keep SpO2 >90% - glucose control - continue anticoagulation
[2017-10-02] MEDS: ALBUTEROL SO4 0.083% IH SOL 2.5 MG/3 ML VIAL.NEB. NEB PRN (16:40)
--- NOTE | 2017-10-02 22:12 | PN ---
Progress Note (short form) - Note Progress Note: patient seen and examined in room still feels chest tightness c/o constipation and abd discomfort Vital Signs Period Temp Pulse Resp BP Sys/Londono Pulse Ox Last 24 Hr 97.6 F-98.6 F 78-103 18-20 101-125/53-75 96-[address] neck supple heart S1/S2 irreg lungs wheezing diffusely exp >ins abd soft / no guarding / palpable mass lower right upper quadrant / non tender / defined borders ext no edema CBC, BMP 10/02/17 05:15 10/02/17 05:15 Microbiology 09/30/17 12:30 Blood - Peripheral Venous Blood Culture - Preliminary NO GROWTH OBTAINED AFTER 48 HOURS, INCUBATION TO CONTINUE FOR 3 DAYS. 09/30/17 12:30 Blood - Peripheral Venous Blood Culture - Preliminary NO GROWTH OBTAINED AFTER 48 HOURS, INCUBATION TO CONTINUE FOR 3 DAYS. Active Medications Albuterol Sulfate (Ventolin 0.083% Nebulizer Soln -) 1 amp NEB Q4H PRN PRN Reason: SHORT OF BREATH/WHEEZING Last Admin: 10/02/17 16:40 Dose: 1 amp Apixaban (Eliquis -) 2.5 mg PO BID [facility] Last Admin: 10/02/17 09:30 Dose: 2.5 mg Arformoterol Tartrate (Brovana (Restricted To Pulmonology/Resp) -) 1 amp NEB RBID [facility] Last Admin: 10/02/17 20:27 Dose: 1 amp Diltiazem HCl (Cardizem -) 30 mg PO TID [facility] Last Admin: 10/02/17 14:04 Dose: 30 mg Furosemide (Lasix Injection -) 40 mg IVPUSH DAILY [facility] Last Admin: 10/02/17 09:29 Dose: 40 mg Insulin Aspart (Novolog Vial Sliding Scale -) 1 vial SQ ACHS [facility]; Protocol Last Admin: 10/02/17 17:08 Dose: 8 units Insulin Detemir (Levemir Vial) 50 units SQ HS [facility] Last Admin: 10/01/17 22:34 Dose: 50 units Lisinopril (Prinivil) 10 mg PO DAILY [facility] Last Admin: 10/02/17 09:30 Dose: 10 mg Methylprednisolone Sodium Succinate (Solu-Medrol -) 60 mg IVPUSH Q6H-IV [facility] Last Admin: 10/02/17 14:40 Dose: 60 mg Metoclopramide HCl (Reglan -) 5 mg PO TID [facility] Last Admin: 10/02/17 14:04 Dose: 5 mg Mineral Oil (Fleet Mineral Oil Rectal Enema -) 133 ml HI NOW ONE Stop: 10/02/17 22:16 Montelukast Sodium (Singulair -) 10 mg PO HS [facility] Last Admin: 10/01/17 22:35 Dose: 10 mg Morphine Sulfate (Ms Contin -) 15 mg PO BID [facility] Last Admin: 10/02/17 09:29 Dose: 15 mg Nitroglycerin (Nitrostat -) 0.4 mg SL PRN PRN PRN Reason: chest pain Nystatin (Nystatin Oral Suspension -) 100,000 units PO Q6HPO [facility] Last Admin: 10/02/17 17:39 Dose: Not Given Pantoprazole Sodium (Protonix -) 40 mg PO HS [facility] Last Admin: 10/01/17 22:36 Dose: 40 mg Polyethylene Glycol (Miralax (For Daily Use) -) 17 gm PO BID [facility] Pregabalin (Lyrica -) 75 mg PO BID [facility] Last Admin: 10/02/17 09:30 Dose: 75 mg Senna (Senna -) 2 tab PO [facility] Sodium Chloride ([place] Nasal [place] -) 2 spray NS BID [facility] Last Admin: 10/02/17 10:03 Dose: 2 spray 62 y/o female patient with long standing pulmonary Sarcoidosis, ILD/fibrosis, pulmonary HTN, COPD, and cardiac Sarcoid s/p ICD for VT and syncope several years ago -- steroid dependant ( 30mg/day); on NOAC therapy for LLE DVT diagnosed in 12/2016, Hep C, HTN, DM recent HgA1c 9.9, OSVALDO on bipap nightly and PRN, HLD, Decubiti mostly healed , Hx of MAT and PAT being controlled on cardizem ( avoid long acting 2/2 to hypotension ), chronic diastolic HF, recently admitted with acute on chronic diastolic CHF in setting of interruption of diuretic therapy. Medications resumed and arrangements made for home discharge, Kong was seen at office this week with c/o increased difficulty breathing -- Sat 72% at office -- on exam noted to be out of oxygen - - once supplemental O2 resumed sats back up to 92%, patient was sent home. Today comes to ER with same complaint -- difficulty breathing / coughing over last 1-2 days --- report sick contact at home (grand child) # dyspnea -- continues with diffuse wheezing / chest tightness -- will not taper steroids chronic diastolic HF / COPD / pulmonary HTN / Pulmonary Sarcoid -- ILD / fibrosis steroid dependent / O2 dependent / bipap at night and PRN Continue IV steroids / PPi / O2 4 liters / bipap nightly and PRN IV lasix -- follow renal function / follow clinically Pulmonary and Cardiac consult -- well known to service patient cultured in ER with multiple drug allergies -- will await c/s Abx on hold pending C/S results # Constipation 2/2 to narcotics on senna / miralax / enema tonight would benefit from movantik if continued constipation mylanta PRN for indigestion # DM II poor control / now with inc BS 2/2 to inc steroids adjust insulin / resume AM dose of Levemir 30 units /day in addition to PM dose
[2017-10-02] MEDS ORDERED: MAG HYDROX/AL HYDROX/SIMETH -MYLANTA- ORAL SUSPENSION PO PRN (22:13)
[2017-10-02] MEDS ORDERED: MINERAL OIL ENEMA 133 ML ENEMA PR ONE (22:15)
[2017-10-02] MEDS: MONTELUKAST NA 10 MG TABLET PO SCH (22:21)
[2017-10-02] MEDS: PANTOPRAZOLE 40 MG TABLET (FP) PO SCH (22:21)
[2017-10-02] MEDS: INSULIN (LEVEMIR) 100 UNITS/ML UNITS SQ SCH (22:24)
[2017-10-02] MEDS: POLYETHYLENE GLYCOL 3350 119 GM BTL PO SCH (22:25)
[2017-10-02] MEDS: SENNOSIDES 8.6MG TABLET (FP) PO SCH (22:48)
[2017-10-03] MEDS: methylPREDNISolone NA SUCC 125 MG/2 ML VIAL IVPUSH SCH ×3 (04:10→17:06)
[2017-10-03] MEDS: dilTIAZem HCL 30 MG TABLET (FP) PO SCH ×3 (06:32→22:31)
[2017-10-03] MEDS: INSULIN (LEVEMIR) 100 UNITS/ML UNITS SQ SCH ×2 (06:33→22:27)
[2017-10-03] MEDS: METOCLOPRAMIDE HCL 10 MG TABLET (FP) PO SCH ×3 (06:33→22:37)
[2017-10-03] MEDS: NYSTATIN 500,000 UNITS/5 ML SUSPENSION PO SCH ×4 (06:33→17:09)
[2017-10-03] MEDS: INSULIN SLIDING SCALE (NOVOLOG) 1 VIAL SQ SCH ×4 (06:34→22:26)
[2017-10-03] MEDS: ARFORMOTEROL TARTRATE 15 MCG/2 ML VIAL NEB SCH ×2 (08:37→19:44)
[2017-10-03 09:33] LABS: BASO % 0.1 % (0-2.0); HEMATOCRIT 28.5 % (32.4-45.2); LYMPH % 3.8 % (8-40); MCHC 31.5 g/dl (32.0-36.0); MEAN CELL VOLUME 85.6 fl (80-96); MEAN PLT VOLUME 7.6 fl (7.5-11.1); MONO % 1.4 % (3.8-10.2); NEUT % 94.7 % (42.8-82.8); PLATELET COUNT 367 K/MM3 (134-434); RBC 3.33 M/mm3 (3.60-5.2); RDW 16.3 % (11.6-15.6); WHITE BLOOD COUNT 15.5 K/mm3 (4.0-10.0)
[2017-10-03] MEDS: LISINOPRIL 10 MG TABLET (FP) PO SCH (10:14)
[2017-10-03] MEDS: APIXABAN 2.5 MG TABLET PO SCH ×2 (10:14→22:32)
[2017-10-03] MEDS: PREGABALIN 75 MG CAPSULE PO SCH ×2 (10:14→22:32)
[2017-10-03] MEDS: morphine SO4 SUSTAINED ACTING 15 MG TABLET.SA PO SCH ×2 (10:14→22:28)
[2017-10-03] MEDS: FUROSEMIDE 40 MG/4 ML INJECTABLE VIAL IVPUSH SCH (10:15)
[2017-10-03] MEDS: POLYETHYLENE GLYCOL 3350 119 GM BTL PO SCH ×2 (10:15→22:35)
[2017-10-03] MEDS: SODIUM CHLORIDE NASAL SPRAY 44 ML BOTTLE NS SCH ×2 (10:15→22:36)
[2017-10-03 10:32] LABS: ANION GAP 5 (8-16); BLOOD UREA NITROGEN 36 mg/dL (7-18); CALCIUM 8.7 mg/dL (8.5-10.1); CHLORIDE 96 mmol/L (98-107); CO2 38 mmol/L (21-32); CREATININE 0.8 mg/dL (0.55-1.02); MAGNESIUM 1.7 mg/dL (1.8-2.4); POTASSIUM 4.3 mmol/L (3.5-5.1); SODIUM 139 mmol/L (136-145)
[2017-10-03 10:40] LABS: GLUCOSE,RANDOM 380 mg/dL (74-106)
--- NOTE | 2017-10-03 11:26 | PN ---
Progress Note (short form) - Note Progress Note: patient seen and examined in room still feels chest tightness c/o constipation and abd discomfort Vital Signs Period Temp Pulse Resp BP Sys/Londono Pulse Ox Last 24 Hr 97.7 F-98.7 F 75-89 18-20 101-127/53-74 96-99 neck supple heart S1/S2 irreg lungs wheezing diffusely exp >ins abd soft / no guarding / palpable mass lower right upper quadrant / non tender / defined borders ext no edema CBC, BMP 10/03/17 08:54 10/03/17 08:54 CBC, BMP 10/02/17 05:15 10/02/17 05:15 Microbiology 09/30/17 12:30 Blood - Peripheral Venous Blood Culture - Preliminary NO GROWTH OBTAINED AFTER 48 HOURS, INCUBATION TO CONTINUE FOR 3 DAYS. 09/30/17 12:30 Blood - Peripheral Venous Blood Culture - Preliminary NO GROWTH OBTAINED AFTER 48 HOURS, INCUBATION TO CONTINUE FOR 3 DAYS. Active Medications Al Hydroxide/Mg Hydroxide (Mylanta Suspension -) 30 ml PO Q6H PRN PRN Reason: INDIGESTION Albuterol Sulfate (Ventolin 0.083% Nebulizer Soln -) 1 amp NEB Q4H PRN PRN Reason: SHORT OF BREATH/WHEEZING Last Admin: 10/02/17 16:40 Dose: 1 amp Apixaban (Eliquis -) 2.5 mg PO BID [facility] Last Admin: 10/03/17 10:14 Dose: 2.5 mg Arformoterol Tartrate (Brovana (Restricted To Pulmonology/Resp) -) 1 amp NEB RBID [facility] Last Admin: 10/03/17 08:37 Dose: 1 amp Diltiazem HCl (Cardizem -) 30 mg PO TID [facility] Last Admin: 10/03/17 06:32 Dose: 30 mg Furosemide (Lasix Injection -) 40 mg IVPUSH DAILY [facility] Last Admin: 10/03/17 10:15 Dose: 40 mg Insulin Aspart (Novolog Vial Sliding Scale -) 1 vial SQ ACHS [facility]; Protocol Last Admin: 10/03/17 06:34 Dose: 4 units Insulin Detemir (Levemir Vial) 50 units SQ HS [facility] Last Admin: 10/02/17 22:24 Dose: 50 units Insulin Detemir (Levemir Vial) 30 units SQ AM [facility] Last Admin: 10/03/17 06:33 Dose: 30 units Lisinopril (Prinivil) 10 mg PO DAILY [facility] Last Admin: 10/03/17 10:14 Dose: 10 mg Methylprednisolone Sodium Succinate (Solu-Medrol -) 60 mg IVPUSH Q6H-IV [facility] Last Admin: 10/03/17 10:15 Dose: 60 mg Metoclopramide HCl (Reglan -) 5 mg PO TID [facility] Last Admin: 10/03/17 06:33 Dose: 5 mg Montelukast Sodium (Singulair -) 10 mg PO HS [facility] Last Admin: 10/02/17 22:21 Dose: 10 mg Morphine Sulfate (Ms Contin -) 15 mg PO BID [facility] Last Admin: 10/03/17 10:14 Dose: 15 mg Nitroglycerin (Nitrostat -) 0.4 mg SL PRN PRN PRN Reason: chest pain Nystatin (Nystatin Oral Suspension -) 100,000 units PO Q6HPO [facility] Last Admin: 10/03/17 06:33 Dose: Not Given Pantoprazole Sodium (Protonix -) 40 mg PO HS [facility] Last Admin: 10/02/17 22:21 Dose: 40 mg Polyethylene Glycol (Miralax (For Daily Use) -) 17 gm PO BID [facility] Last Admin: 10/03/17 10:15 Dose: 17 grams Pregabalin (Lyrica -) 75 mg PO BID [facility] Last Admin: 10/03/17 10:14 Dose: 75 mg Senna (Senna -) 2 tab PO [facility] Sodium Chloride ([place] Nasal [place] -) 2 spray NS BID [facility] Last Admin: 10/03/17 10:15 Dose: 2 spray 62 y/o female patient with long standing pulmonary Sarcoidosis, ILD/fibrosis, pulmonary HTN, COPD, and cardiac Sarcoid s/p ICD for VT and syncope several years ago -- steroid dependant ( 30mg/day); on NOAC therapy for LLE DVT diagnosed in 12/2016, Hep C, HTN, DM recent HgA1c 9.9, OSVALDO on bipap nightly and PRN, HLD, Decubiti mostly healed , Hx of MAT and PAT being controlled on cardizem ( avoid long acting 2/2 to hypotension ), chronic diastolic HF, recently admitted with acute on chronic diastolic CHF in setting of interruption of diuretic therapy. Medications resumed and arrangements made for home discharge, Patietn was seen at office this week with c/o increased difficulty breathing -- Sat 72% at office -- on exam noted to be out of oxygen - - once supplemental O2 resumed sats back up to 92%, patient was sent home. Today comes to ER with same complaint -- difficulty breathing / coughing over last 1-2 days --- report sick contact at home (grand child) # dyspnea -- continues with diffuse wheezing / chest tightness -- will not taper steroids chronic diastolic HF / COPD / pulmonary HTN / Pulmonary Sarcoid -- ILD / fibrosis steroid dependent / O2 dependent / bipap at night and PRN Continue IV steroids / PPi / O2 4 liters / bipap nightly and PRN IV lasix -- follow renal function / follow clinically Pulmonary and Cardiac consult -- well known to service patient cultured in ER with multiple drug allergies -- will await c/s Abx on hold pending C/S results # Constipation 2/2 to narcotics on senna / miralax / enema tonight would benefit from movantik if continued constipation mylanta PRN for indigestion # DM II poor control / now with inc BS 2/2 to inc steroids adjust insulin / resume AM dose of Levemir 30 units /day in addition to PM dose Problem List - Problems (1) Acute on chronic respiratory failure with hypoxia and hypercapnia Code(s): J96.21 - ACUTE AND CHRONIC RESPIRATORY FAILURE WITH HYPOXIA; J96.22 - ACUTE AND CHRONIC RESPIRATORY FAILURE WITH HYPERCAPNIA (2) Interstitial pulmonary fibrosis Code(s): J84.10 - PULMONARY FIBROSIS, UNSPECIFIED (3) SOB (shortness of breath) Code(s): R06.02 - SHORTNESS OF BREATH (4) SHERRI (acute kidney injury) Code(s): N17.9 - ACUTE KIDNEY FAILURE, UNSPECIFIED (5) Abdominal pain Code(s): R10.9 - UNSPECIFIED ABDOMINAL PAIN (6) Allergy to multiple antibiotics Code(s): Z88.1 - ALLERGY STATUS TO OTHER ANTIBIOTIC AGENTS STATUS (7) CHF (congestive heart failure) Code(s): I50.9 - HEART FAILURE, UNSPECIFIED Qualifiers: Heart failure type: unspecified Heart failure chronicity: unspecified Qualified Code(s): I50.9 - Heart failure, unspecified (8) COPD (chronic obstructive pulmonary disease) Code(s): J44.9 - CHRONIC OBSTRUCTIVE PULMONARY DISEASE, UNSPECIFIED (9) Cardiac sarcoidosis Code(s): 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 (10) COPD exacerbation Code(s): J44.1 - CHRONIC OBSTRUCTIVE PULMONARY DISEASE W (ACUTE) EXACERBATION (11) Chest pain Code(s): R07.9 - CHEST PAIN, UNSPECIFIED Qualifiers: Chest pain type: unspecified Qualified Code(s): R07.9 - Chest pain, unspecified (12) Chronic diastolic CHF (congestive heart failure) Code(s): I50.32 - CHRONIC DIASTOLIC (CONGESTIVE) HEART FAILURE (13) Chronic low back pain Code(s): M54.5 - LOW BACK PAIN; G89.29 - OTHER CHRONIC PAIN (14) DVT (deep venous thrombosis) Code(s): I82.409 - ACUTE EMBOLISM AND THOMBOS UNSP DEEP VN UNSP LOWER EXTREMITY Qualifiers: Laterality: unspecified laterality (15) DVT prophylaxis Code(s): MNQ2259 - (16) Diabetes mellitus Code(s): E11.9 - TYPE 2 DIABETES MELLITUS WITHOUT COMPLICATIONS Qualifiers: Diabetes mellitus type: type 2 Diabetes mellitus complication status: without complication (17) ICD (implantable cardioverter-defibrillator) in place Code(s): Z95.810 - PRESENCE OF AUTOMATIC (IMPLANTABLE) CARDIAC DEFIBRILLATOR (18) Multifocal atrial tachycardia Code(s): I47.1 - SUPRAVENTRICULAR TACHYCARDIA (19) Obstructive sleep apnea Code(s): G47.33 - OBSTRUCTIVE SLEEP APNEA (ADULT) (PEDIATRIC) (20) Oxygen dependent Code(s): Z99.81 - DEPENDENCE ON SUPPLEMENTAL OXYGEN (21) PHT (pulmonary hypertension) Code(s): I27.20 - PULMONARY HYPERTENSION, UNSPECIFIED (22) Pulmonary sarcoidosis Code(s): D86.0 - SARCOIDOSIS OF LUNG (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
--- NOTE | 2017-10-03 12:10 | PN ---
Progress Note (short form) - Note Progress Note: PULMONARY States breathing is better today. Less chest tightness, cough and wheezing. Vital Signs Period Temp Pulse Resp BP Sys/Londono Pulse Ox Last 24 Hr 97.7 F-98.7 F 75-89 18-20 101-127/53-74 96-99 Gen: NAD at rest Heart: RRR Lung: less bilateral rhonchi Abd: soft, nontender Ext: no edema CBC, BMP 10/03/17 08:54 10/03/17 08:54 Active Medications Al Hydroxide/Mg Hydroxide (Mylanta Suspension -) 30 ml PO Q6H PRN PRN Reason: INDIGESTION Albuterol Sulfate (Ventolin 0.083% Nebulizer Soln -) 1 amp NEB Q4H PRN PRN Reason: SHORT OF BREATH/WHEEZING Last Admin: 10/02/17 16:40 Dose: 1 amp Apixaban (Eliquis -) 2.5 mg PO BID [facility] Last Admin: 10/03/17 10:14 Dose: 2.5 mg Arformoterol Tartrate (Brovana (Restricted To Pulmonology/Resp) -) 1 amp NEB RBID [facility] Last Admin: 10/03/17 08:37 Dose: 1 amp Diltiazem HCl (Cardizem -) 30 mg PO TID [facility] Last Admin: 10/03/17 06:32 Dose: 30 mg Furosemide (Lasix Injection -) 40 mg IVPUSH DAILY [facility] Last Admin: 10/03/17 10:15 Dose: 40 mg Insulin Aspart (Novolog Vial Sliding Scale -) 1 vial SQ ACHS [facility]; Protocol Last Admin: 10/03/17 06:34 Dose: 4 units Insulin Detemir (Levemir Vial) 50 units SQ HS [facility] Last Admin: 10/02/17 22:24 Dose: 50 units Insulin Detemir (Levemir Vial) 30 units SQ AM [facility] Last Admin: 10/03/17 06:33 Dose: 30 units Lisinopril (Prinivil) 10 mg PO DAILY [facility] Last Admin: 10/03/17 10:14 Dose: 10 mg Methylprednisolone Sodium Succinate (Solu-Medrol -) 60 mg IVPUSH Q6H-IV [facility] Last Admin: 10/03/17 10:15 Dose: 60 mg Metoclopramide HCl (Reglan -) 5 mg PO TID [facility] Last Admin: 10/03/17 06:33 Dose: 5 mg Montelukast Sodium (Singulair -) 10 mg PO HS [facility] Last Admin: 10/02/17 22:21 Dose: 10 mg Morphine Sulfate (Ms Contin -) 15 mg PO BID [facility] Last Admin: 10/03/17 10:14 Dose: 15 mg Nitroglycerin (Nitrostat -) 0.4 mg SL PRN PRN PRN Reason: chest pain Nystatin (Nystatin Oral Suspension -) 100,000 units PO Q6HPO [facility] Last Admin: 10/03/17 06:33 Dose: Not Given Pantoprazole Sodium (Protonix -) 40 mg PO [facility] Last Admin: 10/02/17 22:21 Dose: 40 mg Polyethylene Glycol (Miralax (For Daily Use) -) 17 gm PO BID [facility] Last Admin: 10/03/17 10:15 Dose: 17 grams Pregabalin (Lyrica -) 75 mg PO BID [facility] Last Admin: 10/03/17 10:14 Dose: 75 mg Senna (Senna -) 2 tab PO [facility] Sodium Chloride ([place] Nasal [place] -) 2 spray NS BID [facility] Last Admin: 10/03/17 10:15 Dose: 2 spray A/P Acute on Chronic Hypoxic and Hypercapneic Respiratory Failure Pulmonary Sarcoidosis Asthma LV Diastolic Dysfunction Pulmonary HTN Obstructive Sleep Apnea MAT h/o DVT - will decrease medrol to 40mg q8h - inhaled bronchodilators standing and PRN - O2 to keep SpO2 >90% - glucose control - continue anticoagulation
[2017-10-03 12:40] LABS: ANISOCYTOSIS 2+; MACROCYTOSIS 1+; PLATELET ESTIMATE INCREASED
--- NOTE | 2017-10-03 13:07 | PN ---
Progress Note (short form) - Note Progress Note: patient seen and examined in room sitting in chair / reports more comfortable Vital Signs Period Temp Pulse Resp BP Sys/Londono Pulse Ox Last 24 Hr 97.7 F-98.7 F 75-89 18-20 101-127/53-74 96-99 neck supple heart S1/S2 irreg lungs fine crackles diffusely / some wheezing right >left abd soft / no guarding / palpable mass lower right upper quadrant / non tender / defined borders ext no edema CBC, BMP 10/03/17 08:54 10/03/17 08:54 CBC, BMP 10/02/17 05:15 10/02/17 05:15 Microbiology 09/30/17 12:30 Blood - Peripheral Venous Blood Culture - Preliminary NO GROWTH OBTAINED AFTER 48 HOURS, INCUBATION TO CONTINUE FOR 3 DAYS. 09/30/17 12:30 Blood - Peripheral Venous Blood Culture - Preliminary NO GROWTH OBTAINED AFTER 48 HOURS, INCUBATION TO CONTINUE FOR 3 DAYS. Active Medications Al Hydroxide/Mg Hydroxide (Mylanta Suspension -) 30 ml PO Q6H PRN PRN Reason: INDIGESTION Albuterol Sulfate (Ventolin 0.083% Nebulizer Soln -) 1 amp NEB Q4H PRN PRN Reason: SHORT OF BREATH/WHEEZING Last Admin: 10/02/17 16:40 Dose: 1 amp Apixaban (Eliquis -) 2.5 mg PO BID [facility] Last Admin: 10/03/17 10:14 Dose: 2.5 mg Arformoterol Tartrate (Brovana (Restricted To Pulmonology/Resp) -) 1 amp NEB RBID [facility] Last Admin: 10/03/17 08:37 Dose: 1 amp Diltiazem HCl (Cardizem -) 30 mg PO TID [facility] Last Admin: 10/03/17 06:32 Dose: 30 mg Furosemide (Lasix Injection -) 40 mg IVPUSH DAILY [facility] Last Admin: 10/03/17 10:15 Dose: 40 mg Insulin Aspart (Novolog Vial Sliding Scale -) 1 vial SQ ACHS [facility]; Protocol Last Admin: 10/03/17 06:34 Dose: 4 units Insulin Detemir (Levemir Vial) 50 units SQ HS [facility] Last Admin: 10/02/17 22:24 Dose: 50 units Insulin Detemir (Levemir Vial) 30 units SQ AM [facility] Last Admin: 10/03/17 06:33 Dose: 30 units Lisinopril (Prinivil) 10 mg PO DAILY [facility] Last Admin: 10/03/17 10:14 Dose: 10 mg Methylprednisolone Sodium Succinate (Solu-Medrol -) 60 mg IVPUSH Q6H-IV [facility] Last Admin: 10/03/17 10:15 Dose: 60 mg Metoclopramide HCl (Reglan -) 5 mg PO TID [facility] Last Admin: 10/03/17 06:33 Dose: 5 mg Montelukast Sodium (Singulair -) 10 mg PO HS [facility] Last Admin: 10/02/17 22:21 Dose: 10 mg Morphine Sulfate (Ms Contin -) 15 mg PO BID [facility] Last Admin: 10/03/17 10:14 Dose: 15 mg Nitroglycerin (Nitrostat -) 0.4 mg SL PRN PRN PRN Reason: chest pain Nystatin (Nystatin Oral Suspension -) 100,000 units PO Q6HPO [facility] Last Admin: 10/03/17 06:33 Dose: Not Given Pantoprazole Sodium (Protonix -) 40 mg PO HS [facility] Last Admin: 10/02/17 22:21 Dose: 40 mg Polyethylene Glycol (Miralax (For Daily Use) -) 17 gm PO BID [facility] Last Admin: 10/03/17 10:15 Dose: 17 grams Pregabalin (Lyrica -) 75 mg PO BID [facility] Last Admin: 10/03/17 10:14 Dose: 75 mg Senna (Senna -) 2 tab PO [facility] Sodium Chloride ([place] Nasal [place] -) 2 spray NS BID [facility] Last Admin: 10/03/17 10:15 Dose: 2 spray 62 y/o female patient with long standing pulmonary Sarcoidosis, ILD/fibrosis, pulmonary HTN, COPD, and cardiac Sarcoid s/p ICD for VT and syncope several years ago -- steroid dependant ( 30mg/day); on NOAC therapy for LLE DVT diagnosed in 12/2016, Hep C, HTN, DM recent HgA1c 9.9, OSVALDO on bipap nightly and PRN, HLD, Decubiti mostly healed , Hx of MAT and PAT being controlled on cardizem ( avoid long acting 2/2 to hypotension ), chronic diastolic HF, recently admitted with acute on chronic diastolic CHF in setting of interruption of diuretic therapy. Medications resumed and arrangements made for home discharge, Kong was seen at office this week with c/o increased difficulty breathing -- Sat 72% at office -- on exam noted to be out of oxygen - - once supplemental O2 resumed sats back up to 92%, patient was sent home. Came to ER with same complaint -- difficulty breathing / coughing over last 1- 2 days [employer]--- report sick contact at home (grand child) # dyspnea -- decreased wheezing / less chest tightness -- will taper steroids chronic diastolic HF / COPD / pulmonary HTN / Pulmonary Sarcoid -- ILD / fibrosis steroid dependent / O2 dependent / bipap at night and PRN Continue IV steroids --willtart to taper / PPi / O2 4 liters / bipap nightly and PRN IV lasix -- follow renal function / follow clinically Pulmonary and Cardiac consult -- well known to service patient cultured in ER with multiple drug allergies -- will await c/s Abx on hold pending C/S results --c/s to date negative - patient clinically improving # Constipation 2/2 to narcotics on senna / miralax / enema last night with good results would benefit from movantik if continued constipation mylanta PRN for indigestion # DM II poor control / now with inc BS 2/2 to inc steroids adjust insulin / back to BID dose of levemier continue sliding scale Problem List - Problems (1) Acute on chronic respiratory failure with hypoxia and hypercapnia Code(s): J96.21 - ACUTE AND CHRONIC RESPIRATORY FAILURE WITH HYPOXIA; J96.22 - ACUTE AND CHRONIC RESPIRATORY FAILURE WITH HYPERCAPNIA (2) Interstitial pulmonary fibrosis Code(s): J84.10 - PULMONARY FIBROSIS, UNSPECIFIED (3) SOB (shortness of breath) Code(s): R06.02 - SHORTNESS OF BREATH (4) SHERRI (acute kidney injury) Code(s): N17.9 - ACUTE KIDNEY FAILURE, UNSPECIFIED (5) Abdominal pain Code(s): R10.9 - UNSPECIFIED ABDOMINAL PAIN (6) Allergy to multiple antibiotics Code(s): Z88.1 - ALLERGY STATUS TO OTHER ANTIBIOTIC AGENTS STATUS (7) CHF (congestive heart failure) Code(s): I50.9 - HEART FAILURE, UNSPECIFIED Qualifiers: Heart failure type: unspecified Heart failure chronicity: unspecified Qualified Code(s): I50.9 - Heart failure, unspecified (8) COPD (chronic obstructive pulmonary disease) Code(s): J44.9 - CHRONIC OBSTRUCTIVE PULMONARY DISEASE, UNSPECIFIED (9) Cardiac sarcoidosis Code(s): 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 (10) COPD exacerbation Code(s): J44.1 - CHRONIC OBSTRUCTIVE PULMONARY DISEASE W (ACUTE) EXACERBATION (11) Chest pain Code(s): R07.9 - CHEST PAIN, UNSPECIFIED Qualifiers: Chest pain type: unspecified Qualified Code(s): R07.9 - Chest pain, unspecified (12) Chronic diastolic CHF (congestive heart failure) Code(s): I50.32 - CHRONIC DIASTOLIC (CONGESTIVE) HEART FAILURE (13) Chronic low back pain Code(s): M54.5 - LOW BACK PAIN; G89.29 - OTHER CHRONIC PAIN (14) DVT (deep venous thrombosis) Code(s): I82.409 - ACUTE EMBOLISM AND THOMBOS UNSP DEEP VN UNSP LOWER EXTREMITY Qualifiers: Laterality: unspecified laterality (15) DVT prophylaxis Code(s): [id number] - (16) Diabetes mellitus Code(s): E11.9 - TYPE 2 DIABETES MELLITUS WITHOUT COMPLICATIONS Qualifiers: Diabetes mellitus type: type 2 Diabetes mellitus complication status: without complication (17) ICD (implantable cardioverter-defibrillator) in place Code(s): Z95.810 - PRESENCE OF AUTOMATIC (IMPLANTABLE) CARDIAC DEFIBRILLATOR (18) Multifocal atrial tachycardia Code(s): I47.1 - SUPRAVENTRICULAR TACHYCARDIA (19) Obstructive sleep apnea Code(s): G47.33 - OBSTRUCTIVE SLEEP APNEA (ADULT) (PEDIATRIC) (20) Oxygen dependent Code(s): Z99.81 - DEPENDENCE ON SUPPLEMENTAL OXYGEN (21) PHT (pulmonary hypertension) Code(s): I27.20 - PULMONARY HYPERTENSION, UNSPECIFIED (22) Pulmonary sarcoidosis Code(s): D86.0 - SARCOIDOSIS OF LUNG (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
[2017-10-03] MEDS: PANTOPRAZOLE 40 MG TABLET (FP) PO SCH (22:37)
[2017-10-03] MEDS: SENNOSIDES 8.6MG TABLET (FP) PO SCH (22:40)
[2017-10-03] MEDS: MONTELUKAST NA 10 MG TABLET PO SCH (22:40)
[2017-10-04] MEDS: NYSTATIN 500,000 UNITS/5 ML SUSPENSION PO SCH ×4 (00:29→17:52)
[2017-10-04] MEDS: methylPREDNISolone NA SUCC 125 MG/2 ML VIAL IVPUSH SCH ×2 (01:42→10:59)
[2017-10-04] MEDS ORDERED: MAG HYDROX/AL HYDROX/SIMETH 30 ML UNIT-DOSE CUP PO PRN (05:25)
[2017-10-04 06:22] LABS: BASO % 0.3 % (0-2.0); HEMATOCRIT 30.4 % (32.4-45.2); LYMPH % 4.5 % (8-40); MCH 27.7 pg (25.7-33.7); MCHC 32.8 g/dl (32.0-36.0); MEAN CELL VOLUME 84.7 fl (80-96); MEAN PLT VOLUME 7.2 fl (7.5-11.1); MONO % 1.7 % (3.8-10.2); NEUT % 93.5 % (42.8-82.8); PLATELET COUNT 333 K/MM3 (134-434); RBC 3.59 M/mm3 (3.60-5.2); WHITE BLOOD COUNT 15.9 K/mm3 (4.0-10.0)
[2017-10-04] MEDS: INSULIN SLIDING SCALE (NOVOLOG) 1 VIAL SQ SCH ×4 (06:30→22:34)
[2017-10-04] MEDS: INSULIN (LEVEMIR) 100 UNITS/ML UNITS SQ SCH ×2 (06:30→22:34)
[2017-10-04] MEDS: dilTIAZem HCL 30 MG TABLET (FP) PO SCH ×4 (06:48→22:33)
[2017-10-04 06:49] LABS: ANION GAP 6 (8-16); BLOOD UREA NITROGEN 35 mg/dL (7-18); CHLORIDE 96 mmol/L (98-107); CO2 39 mmol/L (21-32); GLUCOSE,RANDOM 77 mg/dL (74-106); POTASSIUM 4.2 mmol/L (3.5-5.1); SODIUM 141 mmol/L (136-145)
[2017-10-04] MEDS: METOCLOPRAMIDE HCL 10 MG TABLET (FP) PO SCH ×4 (06:49→22:33)
[2017-10-04 06:51] LABS: CREATININE 0.5 mg/dL (0.55-1.02)
[2017-10-04] MEDS: ARFORMOTEROL TARTRATE 15 MCG/2 ML VIAL NEB SCH ×2 (07:20→20:35)
--- NOTE | 2017-10-04 08:06 | PN ---
Progress Note, Physician Chief Complaint: Seen and examined: relatively hypoglycemic this AM 91 and feeling symptoms Patient wants to have juice or some food No IV at the moment, one is in process being placed by RN Will cancel US and have patient drink juice/ saira daniela TELE: NSR, APCs. - Current Medication List Current Medications: Active Medications Al Hydroxide/Mg Hydroxide (Mylanta Oral Suspension -) 30 ml PO Q6H PRN PRN Reason: INDIGESTION Albuterol Sulfate (Ventolin 0.083% Nebulizer Soln -) 1 amp NEB Q4H PRN PRN Reason: SHORT OF BREATH/WHEEZING Last Admin: 10/02/17 16:40 Dose: 1 amp Apixaban (Eliquis -) 2.5 mg PO BID [facility] Last Admin: 10/03/17 22:32 Dose: 2.5 mg Arformoterol Tartrate (Brovana (Restricted To Pulmonology/Resp) -) 1 amp NEB RBID [facility] Last Admin: 10/03/17 19:44 Dose: 1 amp Diltiazem HCl (Cardizem -) 30 mg PO TID [facility] Last Admin: 10/04/17 06:48 Dose: Not Given Furosemide (Lasix Injection -) 40 mg IVPUSH DAILY [facility] Last Admin: 10/03/17 10:15 Dose: 40 mg Insulin Aspart (Novolog Vial Sliding Scale -) 1 vial SQ [facility]; Protocol Last Admin: 10/04/17 06:30 Dose: Not Given Insulin Detemir (Levemir Vial) 50 units SQ HS [facility] Last Admin: 10/03/17 22:27 Dose: 50 units Insulin Detemir (Levemir Vial) 30 units SQ AM [facility] Last Admin: 10/04/17 06:30 Dose: Not Given Lisinopril (Prinivil) 10 mg PO DAILY [facility] Last Admin: 10/03/17 10:14 Dose: 10 mg Methylprednisolone Sodium Succinate (Solu-Medrol -) 40 mg IVPUSH Q8H-IV [facility] Last Admin: 10/04/17 01:42 Dose: 40 mg Metoclopramide HCl (Reglan -) 5 mg PO TID [facility] Last Admin: 10/04/17 06:49 Dose: Not Given Montelukast Sodium (Singulair -) 10 mg PO [facility] Last Admin: 10/03/17 22:40 Dose: 10 mg Morphine Sulfate (Ms Contin -) 15 mg PO BID [facility] Last Admin: 10/03/17 22:28 Dose: 15 mg Nitroglycerin (Nitrostat -) 0.4 mg SL PRN PRN PRN Reason: chest pain Nystatin (Nystatin Oral Suspension -) 100,000 units PO Q6HPO [facility] Last Admin: 10/04/17 06:30 Dose: Not Given Pantoprazole Sodium (Protonix -) 40 mg PO HS [facility] Last Admin: 10/03/17 22:37 Dose: 40 mg Polyethylene Glycol (Miralax (For Daily Use) -) 17 gm PO BID [facility] Last Admin: 10/03/17 22:35 Dose: 17 grams Pregabalin (Lyrica -) 75 mg PO BID [facility] Last Admin: 10/03/17 22:32 Dose: 75 mg Senna (Senna -) 2 tab PO [facility] Last Admin: 10/03/17 22:40 Dose: 2 tab Sodium Chloride ([place] Nasal [place] -) 2 spray NS BID [facility] Last Admin: 10/03/17 22:36 Dose: 2 spray - Objective Vital Signs: Vital Signs Temperature 98 F 10/04/17 06:00 Pulse Rate 70 10/04/17 06:00 Respiratory Rate 20 10/03/17 20:25 Blood Pressure 130/72 10/04/17 06:00 O2 Sat by Pulse Oximetry (%) 95 10/04/17 02:35 Constitutional: Yes: No Distress Cardiovascular: Yes: Regular Rate and Rhythm Respiratory: Yes: Rhonchi, Other (scattered rhonchi and b/l "dry" rales.) Gastrointestinal: Yes: Soft (no rebound or guarding), Abdomen, Obese Edema: No Neurological: Yes: Alert, Oriented ...Motor Strength: WNL Labs: CBC, BMP 10/04/17 05:30 10/04/17 05:30 - ....Imaging EKG: Image Reviewed Assessment/Plan IMP: Cardiac sarcoid, pulmonary sarcoid with ILD, PHTN H/o ICD for syncope, VT, MRI + sarcoid DVT --On Eliquis Recent severe epistaxis, seen by heme and ENT---> dose changed to 2.5 BID Chronic diastolic CHF Multifocal atrial tachycardia and Paroxysmal A-Tach Now admitted with worsened cough and SOB, elevated WBC, suspected PNA Overall, appears euvolemic. REC: 1. Supplimental O2, nebs, steroid taper, pulmonary evaluation. Recent Chest CT in August shows honeycombing, ILD changes. 2. Can switch to Lasix 80mg PO daily if IV cannot be placed- on IV abx and steroids which have caused her to retain volume in the past: she is quite prone to developing decompensated diastolic CHF with small changes in volume. Will repeat echo today 3. Cont. TYRON as BP allows. 4. PAT/MAT likely due to underlying lung disease. Continue tele. Continue short acting Cardizem-- has had episodes of intermittent hypotension previously while on extended release Cardizem and Lasix 5. Continue Eliquis at the Heme recommended dose (see previous admissions) for DVT history. 6. Labile glucose: this morning 91 and she was sx. Will hold on abd US and have her drink juice/ saira daniela and eat. Follow glucose closely Regimen to be adjusted as per PMD. Abd US when glucose stable.
[2017-10-04] MEDS ORDERED: PT OWN MED DRAWER 7, Y5N ONE (09:24)
[2017-10-04] MEDS: LISINOPRIL 10 MG TABLET (FP) PO SCH (09:26)
[2017-10-04] MEDS: morphine SO4 SUSTAINED ACTING 15 MG TABLET.SA PO SCH ×2 (09:26→22:33)
[2017-10-04] MEDS: PREGABALIN 75 MG CAPSULE PO SCH ×2 (09:26→22:33)
[2017-10-04] MEDS: APIXABAN 2.5 MG TABLET PO SCH ×2 (09:27→22:33)
[2017-10-04] MEDS: SODIUM CHLORIDE NASAL SPRAY 44 ML BOTTLE NS SCH ×2 (09:27→22:40)
[2017-10-04] MEDS ORDERED: FUROSEMIDE 40 MG TABLET (FP) PO SCH (10:00)
[2017-10-04 10:50] LABS: PLATELET ESTIMATE ADEQUATE
[2017-10-04] MEDS: POLYETHYLENE GLYCOL 3350 119 GM BTL PO SCH ×2 (10:52→22:35)
--- NOTE | 2017-10-04 11:04 | PN ---
Progress Note (short form) - Note Progress Note: patient seen and examined in room in bed / still feels "tight" no IV access -- Lasix to PO will also change steroids to PO Vital Signs Period Temp Pulse Resp BP Sys/Londono Pulse Ox Last 24 Hr 97.7 F-98.7 F 75-89 18-20 101-127/53-74 96-99 neck supple heart S1/S2 irreg lungs fine crackles diffusely / some wheezing right >left abd soft / no guarding / palpable mass lower right upper quadrant / non tender / defined borders ext no edema CBC, BMP 10/04/17 05:30 10/04/17 05:30 CBC, BMP 10/03/17 08:54 10/03/17 08:54 CBC, BMP 10/02/17 05:15 10/02/17 05:15 Microbiology 09/30/17 12:30 Blood - Peripheral Venous Blood Culture - Preliminary NO GROWTH OBTAINED AFTER 72 HOURS, INCUBATION TO CONTINUE FOR 2 DAYS. 09/30/17 12:30 Blood - Peripheral Venous Blood Culture - Preliminary NO GROWTH OBTAINED AFTER 72 HOURS, INCUBATION TO CONTINUE FOR 2 DAYS. Active Medications Al Hydroxide/Mg Hydroxide (Mylanta Oral Suspension -) 30 ml PO Q6H PRN PRN Reason: INDIGESTION Albuterol Sulfate (Ventolin 0.083% Nebulizer Soln -) 1 amp NEB Q4H PRN PRN Reason: SHORT OF BREATH/WHEEZING Last Admin: 10/02/17 16:40 Dose: 1 amp Apixaban (Eliquis -) 2.[address] [facility] Last Admin: 10/04/17 09:27 Dose: 2.5 mg Arformoterol Tartrate (Brovana (Restricted To Pulmonology/Resp) -) [address] [facility] Last Admin: 10/04/17 07:20 Dose: 1 amp Diltiazem HCl (Cardizem -) [address] [facility] Last Admin: 10/04/17 08:40 Dose: 30 mg Furosemide (Lasix -) [address] [facility] Last Admin: 10/04/17 09:27 Dose: 80 mg Insulin Aspart (Novolog Vial Sliding Scale -) [address] [facility]; Protocol Last Admin: 10/04/17 06:30 Dose: Not Given Insulin Detemir (Levemir Vial) [address] [facility] Last Admin: 10/03/17 22:27 Dose: 50 units Insulin Detemir (Levemir Vial) [address] [facility] Last Admin: 10/04/17 06:30 Dose: Not Given Lisinopril (Prinivil) [address] [facility] Last Admin: 10/04/17 09:26 Dose: 10 mg Methylprednisolone Sodium Succinate (Solu-Medrol -) 40 [address] IVPUSH Q8H-IV [facility] Last Admin: 10/04/17 10:59 Dose: Not Given Metoclopramide HCl (Reglan -) [address] [facility] Last Admin: 10/04/17 08:40 Dose: 5 mg Montelukast Sodium (Singulair -) [address] [facility] Last Admin: 10/03/17 22:40 Dose: 10 mg Morphine Sulfate (Ms Contin -) [address] [facility] Last Admin: 10/04/17 09:26 Dose: 15 mg Nitroglycerin (Nitrostat -) 0.4 mg SL PRN PRN PRN Reason: chest pain Nystatin (Nystatin Oral Suspension -) 100,[address] [facility] Last Admin: 10/04/17 06:30 Dose: Not Given Pantoprazole Sodium (Protonix -) 40 mg PO [facility] Last Admin: 10/03/17 22:37 Dose: 40 mg Polyethylene Glycol (Miralax (For Daily Use) -) [address] [facility] Last Admin: 10/04/17 10:52 Dose: 17 grams Prednisone (Deltasone -) [address] [facility] Pregabalin (Lyrica -) [address] [facility] Last Admin: 10/04/17 09:26 Dose: 75 mg Senna (Senna -) 2 tab PO [facility] Last Admin: 10/03/17 22:40 Dose: 2 tab Sodium Chloride ([place] Nasal [place] -) [address] [facility] Last Admin: 10/04/17 09:27 Dose: 2 spray 62 y/o female patient with long standing pulmonary Sarcoidosis, ILD/fibrosis, pulmonary HTN, COPD, and cardiac Sarcoid s/p ICD for VT and syncope several years ago -- steroid dependant ( 30mg/day); on NOAC therapy for LLE DVT diagnosed in 12/2016, Hep C, HTN, DM recent HgA1c 9.9, OSVALDO on bipap nightly and PRN, HLD, Decubiti mostly healed , Hx of MAT and PAT being controlled on cardizem ( avoid long acting 2/2 to hypotension ), chronic diastolic HF, recently admitted with acute on chronic diastolic CHF in setting of interruption of diuretic therapy. Medications resumed and arrangements made for home discharge, Kong was seen at office this week with c/o increased difficulty breathing -- Sat 72% at office -- on exam noted to be out of oxygen - - once supplemental O2 resumed sats back up to 92%, patient was sent home. 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) # dyspnea -- decreased wheezing / less chest tightness -- will taper steroids chronic diastolic HF / COPD / pulmonary HTN / Pulmonary Sarcoid -- ILD / fibrosis steroid dependent / O2 dependent / bipap at night and PRN Continue IV steroids --willtart to taper / PPi / O2 4 liters / bipap nightly and PRN IV lasix -- follow renal function / follow clinically -- change to PO 60 mg / day Pulmonary and Cardiac consult -- well known to service patient cultured in ER with multiple drug allergies -- will await c/s c/s to date negative - patient clinically improving off ABX # Constipation -- resolved 2/2 to narcotics on senna / miralax / enema last night with good results would benefit from movantik if continued constipation mylanta PRN for indigestion # DM II poor control / now with inc BS 2/2 to inc steroids adjust insulin / back to BID dose of levemier -- will cut down on Insulin in view of decreased Steroid continue sliding scale Problem List - Problems (1) Acute on chronic respiratory failure with hypoxia and hypercapnia Code(s): J96.21 - ACUTE AND CHRONIC RESPIRATORY FAILURE WITH HYPOXIA; J96.22 - ACUTE AND CHRONIC RESPIRATORY FAILURE WITH HYPERCAPNIA (2) Interstitial pulmonary fibrosis Code(s): J84.10 - PULMONARY FIBROSIS, UNSPECIFIED (3) SOB (shortness of breath) Code(s): R06.02 - SHORTNESS OF BREATH (4) SHERRI (acute kidney injury) Code(s): N17.9 - ACUTE KIDNEY FAILURE, UNSPECIFIED (5) Abdominal pain Code(s): R10.9 - UNSPECIFIED ABDOMINAL PAIN (6) Allergy to multiple antibiotics Code(s): Z88.1 - ALLERGY STATUS TO OTHER ANTIBIOTIC AGENTS STATUS (7) CHF (congestive heart failure) Code(s): I50.9 - HEART FAILURE, UNSPECIFIED Qualifiers: Heart failure type: unspecified Heart failure chronicity: unspecified Qualified Code(s): I50.9 - Heart failure, unspecified (8) COPD (chronic obstructive pulmonary disease) Code(s): J44.9 - CHRONIC OBSTRUCTIVE PULMONARY DISEASE, UNSPECIFIED (9) Cardiac sarcoidosis Code(s): 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 (10) COPD exacerbation Code(s): J44.1 - CHRONIC OBSTRUCTIVE PULMONARY DISEASE W (ACUTE) EXACERBATION (11) Chest pain Code(s): R07.9 - CHEST PAIN, UNSPECIFIED Qualifiers: Chest pain type: unspecified Qualified Code(s): R07.9 - Chest pain, unspecified (12) Chronic diastolic CHF (congestive heart failure) Code(s): I50.32 - CHRONIC DIASTOLIC (CONGESTIVE) HEART FAILURE (13) Chronic low back pain Code(s): M54.5 - LOW BACK PAIN; G89.29 - OTHER CHRONIC PAIN (14) DVT (deep venous thrombosis) Code(s): I82.409 - ACUTE EMBOLISM AND THOMBOS UNSP DEEP VN UNSP LOWER EXTREMITY Qualifiers: Laterality: unspecified laterality (15) DVT prophylaxis Code(s): ZIB2883 - (16) Diabetes mellitus Code(s): E11.9 - TYPE 2 DIABETES MELLITUS WITHOUT COMPLICATIONS Qualifiers: Diabetes mellitus type: type 2 Diabetes mellitus complication status: without complication (17) ICD (implantable cardioverter-defibrillator) in place Code(s): Z95.810 - PRESENCE OF AUTOMATIC (IMPLANTABLE) CARDIAC DEFIBRILLATOR (18) Multifocal atrial tachycardia Code(s): I47.1 - SUPRAVENTRICULAR TACHYCARDIA (19) Obstructive sleep apnea Code(s): G47.33 - OBSTRUCTIVE SLEEP APNEA (ADULT) (PEDIATRIC) (20) Oxygen dependent Code(s): Z99.81 - DEPENDENCE ON SUPPLEMENTAL OXYGEN (21) PHT (pulmonary hypertension) Code(s): I27.20 - PULMONARY HYPERTENSION, UNSPECIFIED (22) Pulmonary sarcoidosis Code(s): D86.0 - SARCOIDOSIS OF LUNG (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
[2017-10-04] MEDS: predniSONE 20 MG TABLET (UD) PO SCH (11:43)
--- NOTE | 2017-10-04 12:43 | PN ---
Progress Note (short form) - Note Progress Note: Breathing feels a little better today. Less chest tightness, cough and wheezing. Noted changed to Prednisone due to a lack of IV access. Intake & Output 10/01/17 10/02/17 10/03/17 10/04/17 23:59 23:59 23:59 23:59 Intake Total 1100 470 770 120 Balance 1100 470 770 120 Weight 163 lb 4 oz 163 lb 162 lb 9.6 oz 162 lb Last Vital Signs Temp Pulse Resp BP Pulse Ox 98.1 F 105 H 22 137/87 98 10/04/17 08:59 10/04/17 08:59 10/04/17 08:59 10/04/17 08:59 10/04/17 09:00 Active Medications Al Hydroxide/Mg Hydroxide (Mylanta Oral Suspension -) 30 ml PO Q6H PRN PRN Reason: INDIGESTION Albuterol Sulfate (Ventolin 0.083% Nebulizer Soln -) 1 amp NEB Q4H PRN PRN Reason: SHORT OF BREATH/WHEEZING Last Admin: 10/02/17 16:40 Dose: 1 amp Apixaban (Eliquis -) 2.5 mg PO BID [facility] Last Admin: 10/04/17 09:27 Dose: 2.5 mg Arformoterol Tartrate (Brovana (Restricted To Pulmonology/Resp) -) 1 amp NEB RBID [facility] Last Admin: 10/04/17 07:20 Dose: 1 amp Diltiazem HCl (Cardizem -) 30 mg PO TID [facility] Last Admin: 10/04/17 08:40 Dose: 30 mg Furosemide (Lasix -) 80 mg PO DAILY [facility] Last Admin: 10/04/17 09:27 Dose: 80 mg Insulin Aspart (Novolog Vial Sliding Scale -) 1 vial SQ ACHS [facility]; Protocol Last Admin: 10/04/17 11:43 Dose: 4 units Insulin Detemir (Levemir Vial) 30 units SQ AM [facility] Last Admin: 10/04/17 06:30 Dose: Not Given Insulin Detemir (Levemir Vial) 40 units SQ HS [facility] Lisinopril (Prinivil) 10 mg PO DAILY [facility] Last Admin: 10/04/17 09:26 Dose: 10 mg Metoclopramide HCl (Reglan -) 5 mg PO TID [facility] Last Admin: 10/04/17 08:40 Dose: 5 mg Montelukast Sodium (Singulair -) 10 mg PO HS [facility] Last Admin: 10/03/17 22:40 Dose: 10 mg Morphine Sulfate (Ms Contin -) 15 mg PO BID [facility] Last Admin: 10/04/17 09:26 Dose: 15 mg Nitroglycerin (Nitrostat -) 0.4 mg SL PRN PRN PRN Reason: chest pain Nystatin (Nystatin Oral Suspension -) 100,000 units PO Q6HPO [facility] Last Admin: 10/04/17 11:43 Dose: Not Given Pantoprazole Sodium (Protonix -) 40 mg PO HS [facility] Last Admin: 10/03/17 22:37 Dose: 40 mg Polyethylene Glycol (Miralax (For Daily Use) -) 17 gm PO BID [facility] Last Admin: 10/04/17 10:52 Dose: 17 grams Prednisone (Deltasone -) 60 mg PO DAILY [facility] Last Admin: 10/04/17 11:43 Dose: 60 mg Pregabalin (Lyrica -) 75 mg PO BID [facility] Last Admin: 10/04/17 09:26 Dose: 75 mg Senna (Senna -) 2 tab PO HS [facility] Last Admin: 10/03/17 22:40 Dose: 2 tab Sodium Chloride ([place] Nasal [place] -) 2 spray NS BID [facility] Last Admin: 10/04/17 09:27 Dose: 2 spray Gen: NAD at rest Heart: RRR Lung: less bilateral rhonchi Abd: soft, nontender Ext: no edema Laboratory Results - last 24 hr 10/03/17 10/03/17 10/03/17 08:54 12:04 16:44 WBC RBC Hgb Hct MCV MCH MCHC RDW Plt Count MPV Absolute Neuts (auto) Total Counted Neutrophils % Neutrophils % (Manual) 93.1 H Band Neutrophils % 0.0 Lymphocytes % Lymphocytes % (Manual) 4.9 L Monocytes % Monocytes % (Manual) 2 L Eosinophils % Eosinophils % (Manual) 0.0 Basophils % Basophils % (Manual) 0.0 Myelocytes % (Man) 0 D Promyelocytes % (Man) 0 Blast Cells % (Manual) 0 Nucleated RBC % Metamyelocytes 0 Hypochromia 0 Platelet Estimate Increased Polychromasia 3+ Poikilocytosis 2+ Anisocytosis 2+ Microcytosis 2+ Macrocytosis 1+ Sodium Potassium Chloride Carbon Dioxide Anion Gap BUN Creatinine Creat Clearance w eGFR POC Glucometer 338 348 Random Glucose Calcium 10/03/17 10/04/17 10/04/17 21:14 05:30 05:30 WBC 15.9 H RBC 3.59 L Hgb 10.0 L Hct 30.4 L MCV 84.7 MCH 27.7 MCHC 32.8 RDW 16.0 H Plt Count 333 MPV 7.2 L Absolute Neuts (auto) 14.8 Total Counted 100 Neutrophils % 93.5 H Neutrophils % (Manual) 94.0 H Band Neutrophils % 2.0 Lymphocytes % 4.5 L Lymphocytes % (Manual) 3.0 L D Monocytes % 1.7 L Monocytes % (Manual) 1 L Eosinophils % 0.0 Eosinophils % (Manual) Basophils % 0.3 Basophils % (Manual) Myelocytes % (Man) Promyelocytes % (Man) Blast Cells % (Manual) Nucleated RBC % 0 Metamyelocytes Hypochromia Platelet Estimate Adequate Polychromasia Poikilocytosis Anisocytosis Microcytosis Macrocytosis Sodium 141 Potassium 4.2 Chloride 96 L Carbon Dioxide 39 H Anion Gap 6 L BUN 35 H Creatinine 0.5 L Creat Clearance w eGFR > 60 POC Glucometer 323 Random Glucose 77 Calcium 9.0 10/04/17 10/04/17 10/04/17 05:52 05:53 11:28 WBC RBC Hgb Hct MCV MCH MCHC RDW Plt Count MPV Absolute Neuts (auto) Total Counted Neutrophils % Neutrophils % (Manual) Band Neutrophils % Lymphocytes % Lymphocytes % (Manual) Monocytes % Monocytes % (Manual) Eosinophils % Eosinophils % (Manual) Basophils % Basophils % (Manual) Myelocytes % (Man) Promyelocytes % (Man) Blast Cells % (Manual) Nucleated RBC % Metamyelocytes Hypochromia Platelet Estimate Polychromasia Poikilocytosis Anisocytosis Microcytosis Macrocytosis Sodium Potassium Chloride Carbon Dioxide Anion Gap BUN Creatinine Creat Clearance w eGFR POC Glucometer 80 90 293 Random Glucose Calcium A/P Acute on Chronic Hypoxic and Hypercapneic Respiratory Failure Pulmonary Sarcoidosis Asthma LV Diastolic Dysfunction Pulmonary HTN Obstructive Sleep Apnea MAT h/o DVT - Prednisone - inhaled bronchodilators standing and PRN - O2 to keep SpO2 >90% - glucose control - continue anticoagulation - NIPPV support as needed Dr Rubio
[2017-10-04] MEDS: ALBUTEROL SO4 0.083% IH SOL 2.5 MG/3 ML VIAL.NEB. NEB PRN (16:17)
--- NOTE | 2017-10-04 17:35 | EKG ---
Test Reason : Blood Pressure : / mmHG Vent. Rate : 087 BPM Atrial Rate : 087 BPM P-R Int : 126 ms QRS Dur : 080 ms QT Int : 330 ms P-R-T Axes : 025 -06 045 degrees QTc Int : 397 ms SINUS RHYTHM WITH PREMATURE ATRIAL COMPLEXES WITH ABERRANT CONDUCTION OTHERWISE NORMAL ECG WHEN COMPARED WITH ECG OF 01-OCT-2017 09:25, ABERRANT CONDUCTION IS NOW PRESENT Confirmed by DANNA SAAB, JEFERSON ([id number]) on 10/04/2017 5:35:36 PM Referred By: Ryan RAMIRES Confirmed By:JEFERSON CLAY MD
--- NOTE | 2017-10-04 22:06 | EKG ---
Test Reason : Blood Pressure : / mmHG Vent. Rate : 087 BPM Atrial Rate : 087 BPM P-R Int : 138 ms QRS Dur : 066 ms QT Int : 340 ms P-R-T Axes : 024 -10 039 degrees QTc Int : 409 ms NORMAL SINUS RHYTHM NORMAL ECG WHEN COMPARED WITH ECG OF 30-SEP-2017 09:32, VENT. RATE HAS DECREASED PREMATURE VENTRICULAR COMPLEXES ARE NO LONGER PRESENT Confirmed by JEFERSON CLAY MD ([id number]) on 10/04/2017 10:06:11 PM Referred By: ARIELLA MONSON Confirmed By:JEFERSON CLAY MD
[2017-10-04] MEDS: SENNOSIDES 8.6MG TABLET (FP) PO SCH (22:32)
[2017-10-04] MEDS: PANTOPRAZOLE 40 MG TABLET (FP) PO SCH (22:32)
[2017-10-04] MEDS: MONTELUKAST NA 10 MG TABLET PO SCH (22:33)
[2017-10-05] MEDS: NYSTATIN 500,000 UNITS/5 ML SUSPENSION PO SCH ×4 (00:12→16:59)
[2017-10-05] MEDS: ALBUTEROL SO4 0.083% IH SOL 2.5 MG/3 ML VIAL.NEB. NEB PRN (02:32)
[2017-10-05] MEDS: METOCLOPRAMIDE HCL 10 MG TABLET (FP) PO SCH ×3 (06:12→22:06)
[2017-10-05] MEDS: dilTIAZem HCL 30 MG TABLET (FP) PO SCH ×3 (06:13→22:04)
[2017-10-05] MEDS: INSULIN SLIDING SCALE (NOVOLOG) 1 VIAL SQ SCH ×3 (06:15→22:04)
[2017-10-05] MEDS: INSULIN (LEVEMIR) 100 UNITS/ML UNITS SQ SCH ×2 (06:15→22:05)
[2017-10-05] MEDS: ARFORMOTEROL TARTRATE 15 MCG/2 ML VIAL NEB SCH ×2 (07:21→20:34)
--- NOTE | 2017-10-05 08:02 | PN ---
Progress Note, Physician Chief Complaint: seen and examined. No distress TELE: NSR, APCs, PVCs, rare couplets. Atrial tach- self limited and brief - Current Medication List Current Medications: Active Medications Al Hydroxide/Mg Hydroxide (Mylanta Oral Suspension -) 30 ml PO Q6H PRN PRN Reason: INDIGESTION Albuterol Sulfate (Ventolin 0.083% Nebulizer Soln -) 1 amp NEB Q4H PRN PRN Reason: SHORT OF BREATH/WHEEZING Last Admin: 10/05/17 02:32 Dose: 1 amp Apixaban (Eliquis -) 2.5 mg PO BID [facility] Last Admin: 10/04/17 22:33 Dose: 2.5 mg Arformoterol Tartrate (Brovana (Restricted To Pulmonology/Resp) -) 1 amp NEB RBID [facility] Last Admin: 10/05/17 07:21 Dose: 1 amp Diltiazem HCl (Cardizem -) 30 mg PO TID [facility] Last Admin: 10/05/17 06:13 Dose: 30 mg Furosemide (Lasix -) 80 mg PO DAILY [facility] Last Admin: 10/04/17 09:27 Dose: 80 mg Insulin Aspart (Novolog Vial Sliding Scale -) 1 vial SQ ACHS [facility]; Protocol Last Admin: 10/05/17 06:15 Dose: Not Given Insulin Detemir (Levemir Vial) 30 units SQ AM [facility] Last Admin: 10/05/17 06:15 Dose: Not Given Insulin Detemir (Levemir Vial) 40 units SQ HS [facility] Last Admin: 10/04/17 22:34 Dose: 40 units Lisinopril (Prinivil) 10 mg PO DAILY [facility] Last Admin: 10/04/17 09:26 Dose: 10 mg Metoclopramide HCl (Reglan -) 5 mg PO TID [facility] Last Admin: 10/05/17 06:12 Dose: 5 mg Montelukast Sodium (Singulair -) 10 mg PO HS [facility] Last Admin: 10/04/17 22:33 Dose: 10 mg Morphine Sulfate (Ms Contin -) 15 mg PO BID [facility] Last Admin: 10/04/17 22:33 Dose: 15 mg Nitroglycerin (Nitrostat -) 0.4 mg SL PRN PRN PRN Reason: chest pain Nystatin (Nystatin Oral Suspension -) 100,000 units PO Q6HPO [facility] Last Admin: 10/05/17 06:12 Dose: Not Given Pantoprazole Sodium (Protonix -) 40 mg PO HS [facility] Last Admin: 10/04/17 22:32 Dose: 40 mg Polyethylene Glycol (Miralax (For Daily Use) -) 17 gm PO BID [facility] Last Admin: 10/04/17 22:35 Dose: 17 grams Prednisone (Deltasone -) 60 mg PO DAILY [facility] Last Admin: 10/04/17 11:43 Dose: 60 mg Pregabalin (Lyrica -) 75 mg PO BID [facility] Last Admin: 10/04/17 22:33 Dose: 75 mg Senna (Senna -) 2 tab PO HS [facility] Last Admin: 10/04/17 22:32 Dose: 2 tab Sodium Chloride ([place] Nasal [place] -) 2 spray NS BID [facility] Last Admin: 10/04/17 22:40 Dose: 2 spray - Objective Vital Signs: Vital Signs Temperature 97.6 F 10/05/17 05:45 Pulse Rate 96 H 10/05/17 05:45 Respiratory Rate 20 10/05/17 05:45 Blood Pressure 99/63 10/05/17 05:45 O2 Sat by Pulse Oximetry (%) 99 10/04/17 21:00 Constitutional: Yes: Calm Cardiovascular: Yes: Regular Rate and Rhythm Respiratory: Yes: Rhonchi (dry rales b/l) Gastrointestinal: Yes: Soft, Abdomen, Obese Edema: No Labs: CBC, BMP 10/04/17 05:30 10/04/17 05:30 - ....Imaging EKG: Image Reviewed Assessment/Plan IMP: Cardiac sarcoid, pulmonary sarcoid with ILD, PHTN H/o ICD for syncope, VT, MRI + sarcoid DVT --On Eliquis Recent severe epistaxis, seen by heme and ENT---> dose changed to 2.5 BID Chronic diastolic CHF Multifocal atrial tachycardia and Paroxysmal A-Tach Now admitted with worsened cough and SOB, elevated WBC, suspected PNA Overall, appears euvolemic. REC: 1. Supplimental O2, nebs, steroid taper, pulmonary evaluation. Recent Chest CT in August shows honeycombing, ILD changes. 2. Lasix 80mg PO daily - on IV abx and steroids which have caused her to retain volume in the past: she is quite prone to developing decompensated diastolic CHF with small changes in volume. F/u echo 3. Cont. TYRON as BP allows. 4. PAT/MAT likely due to underlying lung disease. Continue tele. Continue short acting Cardizem-- has had episodes of intermittent hypotension previously while on extended release Cardizem and Lasix 5. Continue Eliquis at the Heme recommended dose (see previous admissions) for DVT history. 6. DM- as per PMD
[2017-10-05] MEDS ORDERED: FUROSEMIDE 20 MG TABLET (FP) PO SCH (10:00)
--- NOTE | 2017-10-05 10:35 | PN ---
Progress Note, Physician History of Present Illness: pulmonary alert,feeling better,less dyspneic,+cough,less congested - Current Medication List Current Medications: Active Medications Al Hydroxide/Mg Hydroxide (Mylanta Oral Suspension -) 30 ml PO Q6H PRN PRN Reason: INDIGESTION Albuterol Sulfate (Ventolin 0.083% Nebulizer Soln -) 1 amp NEB Q4H PRN PRN Reason: SHORT OF BREATH/WHEEZING Last Admin: 10/05/17 02:32 Dose: 1 amp Apixaban (Eliquis -) 2.5 mg PO BID [facility] Last Admin: 10/04/17 22:33 Dose: 2.5 mg Arformoterol Tartrate (Brovana (Restricted To Pulmonology/Resp) -) 1 amp NEB RBID [facility] Last Admin: 10/05/17 07:21 Dose: 1 amp Diltiazem HCl (Cardizem -) 30 mg PO TID [facility] Last Admin: 10/05/17 06:13 Dose: 30 mg Furosemide (Lasix -) 60 mg PO DAILY [facility] Insulin Aspart (Novolog Vial Sliding Scale -) 1 vial SQ ACHS [facility]; Protocol Last Admin: 10/05/17 06:15 Dose: Not Given Insulin Detemir (Levemir Vial) 30 units SQ AM [facility] Last Admin: 10/05/17 06:15 Dose: Not Given Insulin Detemir (Levemir Vial) 40 units SQ HS [facility] Last Admin: 10/04/17 22:34 Dose: 40 units Lisinopril (Prinivil) 10 mg PO DAILY [facility] Last Admin: 10/04/17 09:26 Dose: 10 mg Metoclopramide HCl (Reglan -) 5 mg PO TID [facility] Last Admin: 10/05/17 06:12 Dose: 5 mg Montelukast Sodium (Singulair -) 10 mg PO HS [facility] Last Admin: 10/04/17 22:33 Dose: 10 mg Morphine Sulfate (Ms Contin -) 15 mg PO BID [facility] Last Admin: 10/04/17 22:33 Dose: 15 mg Nitroglycerin (Nitrostat -) 0.4 mg SL PRN PRN PRN Reason: chest pain Nystatin (Nystatin Oral Suspension -) 100,000 units PO Q6HPO [facility] Last Admin: 10/05/17 06:12 Dose: Not Given Pantoprazole Sodium (Protonix -) 40 mg PO HS [facility] Last Admin: 10/04/17 22:32 Dose: 40 mg Polyethylene Glycol (Miralax (For Daily Use) -) 17 gm PO BID [facility] Last Admin: 10/04/17 22:35 Dose: 17 grams Prednisone (Deltasone -) 60 mg PO DAILY [facility] Last Admin: 10/04/17 11:43 Dose: 60 mg Pregabalin (Lyrica -) 75 mg PO BID [facility] Last Admin: 10/04/17 22:33 Dose: 75 mg Senna (Senna -) 2 tab PO HS [facility] Last Admin: 10/04/17 22:32 Dose: 2 tab Sodium Chloride ([place] Nasal [place] -) 2 spray NS BID [facility] Last Admin: 10/04/17 22:40 Dose: 2 spray - Objective Vital Signs: Vital Signs Temperature 97.6 F 10/05/17 05:45 Pulse Rate 96 H 10/05/17 05:45 Respiratory Rate 20 10/05/17 05:45 Blood Pressure 99/63 10/05/17 05:45 O2 Sat by Pulse Oximetry (%) 99 10/04/17 21:00 Constitutional: Yes: Well Nourished, Calm Eyes: Yes: WNL HENT: Yes: WNL Neck: Yes: WNL Cardiovascular: Yes: Regular Rate and Rhythm, S1, S2 Respiratory: Yes: Rhonchi (bilateral rales and rhonchi) Gastrointestinal: Yes: Normal Bowel Sounds, Soft, Abdomen, Obese Extremities: Yes: WNL Edema: No Labs: CBC, BMP Problem List - Problems (1) Leukocytosis Code(s): D72.829 - ELEVATED WHITE BLOOD CELL COUNT, UNSPECIFIED (2) Pneumonia Code(s): J18.9 - PNEUMONIA, UNSPECIFIED ORGANISM (3) SOB (shortness of breath) Code(s): R06.02 - SHORTNESS OF BREATH (4) Acute on chronic respiratory failure with hypoxia and hypercapnia Code(s): J96.21 - ACUTE AND CHRONIC RESPIRATORY FAILURE WITH HYPOXIA; J96.22 - ACUTE AND CHRONIC RESPIRATORY FAILURE WITH HYPERCAPNIA (5) CHF (congestive heart failure) Code(s): I50.9 - HEART FAILURE, UNSPECIFIED Qualifiers: Heart failure type: unspecified Heart failure chronicity: unspecified Qualified Code(s): I50.9 - Heart failure, unspecified (6) COPD (chronic obstructive pulmonary disease) Code(s): J44.9 - CHRONIC OBSTRUCTIVE PULMONARY DISEASE, UNSPECIFIED (7) Chronic diastolic CHF (congestive heart failure) Code(s): I50.32 - CHRONIC DIASTOLIC (CONGESTIVE) HEART FAILURE (8) DVT (deep venous thrombosis) Code(s): I82.409 - ACUTE EMBOLISM AND THOMBOS UNSP DEEP VN UNSP LOWER EXTREMITY Qualifiers: Laterality: unspecified laterality (9) Diabetes mellitus Code(s): E11.9 - TYPE 2 DIABETES MELLITUS WITHOUT COMPLICATIONS Qualifiers: Diabetes mellitus type: type 2 Diabetes mellitus complication status: without complication (10) ICD (implantable cardioverter-defibrillator) in place Code(s): Z95.810 - PRESENCE OF AUTOMATIC (IMPLANTABLE) CARDIAC DEFIBRILLATOR (11) Interstitial pulmonary fibrosis Code(s): J84.10 - PULMONARY FIBROSIS, UNSPECIFIED (12) Multifocal atrial tachycardia Code(s): I47.1 - SUPRAVENTRICULAR TACHYCARDIA (13) Obstructive sleep apnea Code(s): G47.33 - OBSTRUCTIVE SLEEP APNEA (ADULT) (PEDIATRIC) (14) Oxygen dependent Code(s): Z99.81 - DEPENDENCE ON SUPPLEMENTAL OXYGEN (15) PHT (pulmonary hypertension) Code(s): I27.20 - PULMONARY HYPERTENSION, UNSPECIFIED (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 Assessment/Plan IMP ACUTE ON CHRONIC HYPOXEMIC/HYPERCAPNEIC RESPIRATORY FAILURE ADVANCED PULMONARY SARCOID CARDIAC SARCOID DIASTOLIC HF PULMONARY HTN HTN H/O HEP C OSAS H/O DVT MAT PLAN PREDNISONE INHALED BRONCHODILATORS LASIX O2 BIPAP AT NIGHT AND PRN DAILY WTS AC F/U CHEST X-RAYS DR EUBANKS Problem List - Problems (1) Leukocytosis Code(s): D72.829 - ELEVATED WHITE BLOOD CELL COUNT, UNSPECIFIED (2) Pneumonia Code(s): J18.9 - PNEUMONIA, UNSPECIFIED ORGANISM (3) SOB (shortness of breath) Code(s): R06.02 - SHORTNESS OF BREATH (4) Acute on chronic respiratory failure with hypoxia and hypercapnia Code(s): J96.21 - ACUTE AND CHRONIC RESPIRATORY FAILURE WITH HYPOXIA; J96.22 - ACUTE AND CHRONIC RESPIRATORY FAILURE WITH HYPERCAPNIA (5) CHF (congestive heart failure) Code(s): I50.9 - HEART FAILURE, UNSPECIFIED Qualifiers: Heart failure type: unspecified Heart failure chronicity: unspecified Qualified Code(s): I50.9 - Heart failure, unspecified (6) COPD (chronic obstructive pulmonary disease) Code(s): J44.9 - CHRONIC OBSTRUCTIVE PULMONARY DISEASE, UNSPECIFIED (7) Chronic diastolic CHF (congestive heart failure) Code(s): I50.32 - CHRONIC DIASTOLIC (CONGESTIVE) HEART FAILURE (8) DVT (deep venous thrombosis) Code(s): I82.409 - ACUTE EMBOLISM AND THOMBOS UNSP DEEP VN UNSP LOWER EXTREMITY Qualifiers: Laterality: unspecified laterality (9) Diabetes mellitus Code(s): E11.9 - TYPE 2 DIABETES MELLITUS WITHOUT COMPLICATIONS Qualifiers: Diabetes mellitus type: type 2 Diabetes mellitus complication status: without complication (10) ICD (implantable cardioverter-defibrillator) in place Code(s): Z95.810 - PRESENCE OF AUTOMATIC (IMPLANTABLE) CARDIAC DEFIBRILLATOR (11) Interstitial pulmonary fibrosis Code(s): J84.10 - PULMONARY FIBROSIS, UNSPECIFIED (12) Multifocal atrial tachycardia Code(s): I47.1 - SUPRAVENTRICULAR TACHYCARDIA (13) Obstructive sleep apnea Code(s): G47.33 - OBSTRUCTIVE SLEEP APNEA (ADULT) (PEDIATRIC) (14) Oxygen dependent Code(s): Z99.81 - DEPENDENCE ON SUPPLEMENTAL OXYGEN (15) PHT (pulmonary hypertension) Code(s): I27.20 - PULMONARY HYPERTENSION, UNSPECIFIED (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
[2017-10-05] MEDS: PREGABALIN 75 MG CAPSULE PO SCH ×2 (11:22→22:06)
[2017-10-05] MEDS: morphine SO4 SUSTAINED ACTING 15 MG TABLET.SA PO SCH ×2 (11:22→22:02)
[2017-10-05] MEDS: predniSONE 20 MG TABLET (UD) PO SCH (11:23)
[2017-10-05] MEDS: APIXABAN 2.5 MG TABLET PO SCH ×2 (11:23→22:05)
[2017-10-05] MEDS: POLYETHYLENE GLYCOL 3350 119 GM BTL PO SCH ×2 (11:23→22:11)
[2017-10-05] MEDS: SODIUM CHLORIDE NASAL SPRAY 44 ML BOTTLE NS SCH ×2 (11:24→22:12)
[2017-10-05] MEDS: LISINOPRIL 10 MG TABLET (FP) PO SCH (11:24)
--- NOTE | 2017-10-05 12:10 | PN ---
Progress Note (short form) - Note Progress Note: patient seen and examined in room in bed / feeling better -- "less tight" no IV access -- Lasix to PO will also change steroids to PO tolerating PO management Vital Signs Period Temp Pulse Resp BP Sys/Londono Pulse Ox Last 24 Hr 97.6 F-98.1 F 76-96 20-20 99-122/48-75 99 neck supple heart S1/S2 irreg lungs fine crackles diffusely / some wheezing right base >left abd soft / no guarding / palpable mass lower right upper quadrant / non tender / defined borders ext no edema CBC, BMP 10/04/17 05:30 10/04/17 05:30 Microbiology 09/30/17 12:30 Blood - Peripheral Venous Blood Culture - Preliminary NO GROWTH OBTAINED AFTER 96 HOURS, INCUBATION TO CONTINUE FOR 1 DAYS. 09/30/17 12:30 Blood - Peripheral Venous Blood Culture - Preliminary NO GROWTH OBTAINED AFTER 96 HOURS, INCUBATION TO CONTINUE FOR 1 DAYS. Active Medications Al Hydroxide/Mg Hydroxide (Mylanta Oral Suspension -) 30 ml PO Q6H PRN PRN Reason: INDIGESTION Albuterol Sulfate (Ventolin 0.083% Nebulizer Soln -) 1 amp NEB Q4H PRN PRN Reason: SHORT OF BREATH/WHEEZING Last Admin: 10/05/17 02:32 Dose: 1 amp Apixaban (Eliquis -) 2.5 mg PO BID [facility] Last Admin: 10/05/17 11:23 Dose: 2.5 mg Arformoterol Tartrate (Brovana (Restricted To Pulmonology/Resp) -) 1 amp NEB RBID [facility] Last Admin: 10/05/17 07:21 Dose: 1 amp Diltiazem HCl (Cardizem -) 30 mg PO TID [facility] Last Admin: 10/05/17 06:13 Dose: 30 mg Furosemide (Lasix -) 60 mg PO DAILY [facility] Last Admin: 10/05/17 11:22 Dose: 60 mg Insulin Aspart (Novolog Vial Sliding Scale -) 1 vial SQ ACHS [facility]; Protocol Last Admin: 10/05/17 12:04 Dose: 2 units Insulin Detemir (Levemir Vial) 30 units SQ AM [facility] Last Admin: 10/05/17 06:15 Dose: Not Given Insulin Detemir (Levemir Vial) 40 units SQ HS [facility] Last Admin: 10/04/17 22:34 Dose: 40 units Lisinopril (Prinivil) 10 mg PO DAILY [facility] Last Admin: 10/05/17 11:24 Dose: 10 mg Metoclopramide HCl (Reglan -) 5 mg PO TID [facility] Last Admin: 10/05/17 06:12 Dose: 5 mg Montelukast Sodium (Singulair -) 10 mg PO [facility] Last Admin: 10/04/17 22:33 Dose: 10 mg Morphine Sulfate (Ms Contin -) 15 mg PO BID [facility] Last Admin: 10/05/17 11:22 Dose: 15 mg Nitroglycerin (Nitrostat -) 0.4 mg SL PRN PRN PRN Reason: chest pain Nystatin (Nystatin Oral Suspension -) 100,000 units PO Q6HPO [facility] Last Admin: 10/05/17 12:05 Dose: Not Given Pantoprazole Sodium (Protonix -) 40 mg PO [facility] Last Admin: 10/04/17 22:32 Dose: 40 mg Polyethylene Glycol (Miralax (For Daily Use) -) 17 gm PO BID [facility] Last Admin: 10/05/17 11:23 Dose: 17 grams Prednisone (Deltasone -) 60 mg PO DAILY [facility] Last Admin: 10/05/17 11:23 Dose: 60 mg Pregabalin (Lyrica -) 75 mg PO BID [facility] Last Admin: 10/05/17 11:22 Dose: 75 mg Senna (Senna -) 2 tab PO [facility] Last Admin: 10/04/17 22:32 Dose: 2 tab Sodium Chloride ([place] Nasal [place] -) 2 spray NS BID [facility] Last Admin: 10/05/17 11:24 Dose: Not Given 62 y/o female patient with long standing pulmonary Sarcoidosis, ILD/fibrosis, pulmonary HTN, COPD, and cardiac Sarcoid s/p ICD for VT and syncope several years ago -- steroid dependant ( 30mg/day); on NOAC therapy for LLE DVT diagnosed in 12/2016, Hep C, HTN, DM recent HgA1c 9.9, OSVALDO on bipap nightly and PRN, HLD, Decubiti mostly healed , Hx of MAT and PAT being controlled on cardizem ( avoid long acting 2/2 to hypotension ), chronic diastolic HF, recently admitted with acute on chronic diastolic CHF in setting of interruption of diuretic therapy. Medications resumed and arrangements made for home discharge, Kong was seen at office this week with c/o increased difficulty breathing -- Sat 72% at office -- on exam noted to be out of oxygen - - once supplemental O2 resumed sats back up to 92%, patient was sent home. 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 contact at home (grand child) # dyspnea -- decreased wheezing / less chest tightness -- will taper steroids chronic diastolic HF / COPD / pulmonary HTN / Pulmonary Sarcoid -- ILD / fibrosis steroid dependent / O2 dependent / bipap at night and PRN Continue IV steroids --willtart to taper / PPi / O2 4 liters / bipap nightly and PRN -- change to prednisone PO 60 mg / day IV lasix to PO Pulmonary and Cardiac consult -- well known to service patient cultured in ER with multiple drug allergies -- c/s to date negative - patient clinically improving off ABX # Constipation -- resolved 2/2 to narcotics on senna / miralax / enema last night with good results would benefit from movantik if continued constipation mylanta PRN for indigestion # DM II poor control / now with inc BS 2/2 to inc steroids adjust insulin / back to BID dose of levemier -- will cut down on Insulin in view of decreased Steroid continue sliding scale # arrangements for home discharge in process she currently has 24 hr care and all meds / O2 previously sent ( about 1 week ago ) discussed with SW / D/C team for home discharge today Problem List - Problems (1) Acute on chronic respiratory failure with hypoxia and hypercapnia Code(s): J96.21 - ACUTE AND CHRONIC RESPIRATORY FAILURE WITH HYPOXIA; J96.22 - ACUTE AND CHRONIC RESPIRATORY FAILURE WITH HYPERCAPNIA (2) Interstitial pulmonary fibrosis Code(s): J84.10 - PULMONARY FIBROSIS, UNSPECIFIED (3) SOB (shortness of breath) Code(s): R06.02 - SHORTNESS OF BREATH (4) SHERRI (acute kidney injury) Code(s): N17.9 - ACUTE KIDNEY FAILURE, UNSPECIFIED (5) Abdominal pain Code(s): R10.9 - UNSPECIFIED ABDOMINAL PAIN (6) Allergy to multiple antibiotics Code(s): Z88.1 - ALLERGY STATUS TO OTHER ANTIBIOTIC AGENTS STATUS (7) CHF (congestive heart failure) Code(s): I50.9 - HEART FAILURE, UNSPECIFIED Qualifiers: Heart failure type: unspecified Heart failure chronicity: unspecified Qualified Code(s): I50.9 - Heart failure, unspecified (8) COPD (chronic obstructive pulmonary disease) Code(s): J44.9 - CHRONIC OBSTRUCTIVE PULMONARY DISEASE, UNSPECIFIED (9) Cardiac sarcoidosis Code(s): 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 (10) COPD exacerbation Code(s): J44.1 - CHRONIC OBSTRUCTIVE PULMONARY DISEASE W (ACUTE) EXACERBATION (11) Chest pain Code(s): R07.9 - CHEST PAIN, UNSPECIFIED Qualifiers: Chest pain type: unspecified Qualified Code(s): R07.9 - Chest pain, unspecified (12) Chronic diastolic CHF (congestive heart failure) Code(s): I50.32 - CHRONIC DIASTOLIC (CONGESTIVE) HEART FAILURE (13) Chronic low back pain Code(s): M54.5 - LOW BACK PAIN; G89.29 - OTHER CHRONIC PAIN (14) DVT (deep venous thrombosis) Code(s): I82.409 - ACUTE EMBOLISM AND THOMBOS UNSP DEEP VN UNSP LOWER EXTREMITY Qualifiers: Laterality: unspecified laterality (15) DVT prophylaxis Code(s): NTV2309 - (16) Diabetes mellitus Code(s): E11.9 - TYPE 2 DIABETES MELLITUS WITHOUT COMPLICATIONS Qualifiers: Diabetes mellitus type: type 2 Diabetes mellitus complication status: without complication (17) ICD (implantable cardioverter-defibrillator) in place Code(s): Z95.810 - PRESENCE OF AUTOMATIC (IMPLANTABLE) CARDIAC DEFIBRILLATOR (18) Multifocal atrial tachycardia Code(s): I47.1 - SUPRAVENTRICULAR TACHYCARDIA (19) Obstructive sleep apnea Code(s): G47.33 - OBSTRUCTIVE SLEEP APNEA (ADULT) (PEDIATRIC) (20) Oxygen dependent Code(s): Z99.81 - DEPENDENCE ON SUPPLEMENTAL OXYGEN (21) PHT (pulmonary hypertension) Code(s): I27.20 - PULMONARY HYPERTENSION, UNSPECIFIED (22) Pulmonary sarcoidosis Code(s): D86.0 - SARCOIDOSIS OF LUNG (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
--- NOTE | 2017-10-05 15:50 | DS ---
Physical Examination Vital Signs: Vital Signs Temperature 98.3 F 10/05/17 14:00 Pulse Rate 139 H 10/05/17 14:00 Respiratory Rate 20 10/05/17 14:00 Blood Pressure 107/71 10/05/17 14:00 O2 Sat by Pulse Oximetry (%) 99 10/04/17 21:00 Findings/Remarks: 62 y/o female patient with long standing pulmonary Sarcoidosis, ILD/fibrosis, pulmonary HTN, COPD, and cardiac Sarcoid s/p ICD for VT and syncope several years ago -- steroid dependant ( 30mg/day); on NOAC therapy for LLE DVT diagnosed in 12/2016, Hep C, HTN, DM recent HgA1c 9.9, OSVALDO on bipap nightly and PRN, HLD, Decubiti mostly healed , Hx of MAT and PAT being controlled on cardizem ( avoid long acting 2/2 to hyportension ), chronic diastolic HF, resently admitted with acute on chronic diastolic CHF in setting of interruption of diuretic therapy. Medications resumed and arrangements made for home discharge, Kong was seen at office this week with c/o increased difficulty breathing -- Sat 72% at office -- on exam noted to be out of oxygen - - once supplemetal O2 resumed sats back up to 92%, patient was sent home. Today comes to ER with same complaint -- difficulty breathing / coughing over last 1-2 days --- report sick contact at home (grand child) Constitutional: Yes: Well Nourished, No Distress, Obese Eyes: Yes: Conjunctiva Clear, EOM Intact HENT: Yes: Atraumatic, Normocephalic Neck: Yes: Supple, Trachea Midline Cardiovascular: Yes: Pulse Irregular Respiratory: Yes: On Nasal O2, Rhonchi, Wheezes, Other (crackles bilat) Gastrointestinal: Yes: Soft, Abdomen, Obese, Hypoactive Bowel Sounds. No: Ascites, Distention, Tenderness, Tenderness, Epigastrium, Tenderness, Rebound ...Rectal Exam: Yes: Deferred Renal/: Yes: WNL Breast(s): Yes: WNL Musculoskeletal: Yes: Muscle Weakness (lower extremeties) Edema: No Peripheral Pulses WNL: Yes Integumentary: Yes: WNL Neurological: Yes: Alert, Oriented, Pre-Existing Deficit Psychiatric: Yes: Alert, Oriented Labs: CBC, BMP 10/04/17 05:30 10/04/17 05:30 Discharge Summary Reason For Visit: SOB,LEUKOCYTOSIS,PNEUMONIA Current Active Problems Leukocytosis (Acute) Pneumonia (Acute) SOB (shortness of breath) (Acute) Condition: Improved - Instructions Referrals: Whit Fuchs MD [Primary Care Provider] - Disposition: HOME - Home Medications Comprehensive Discharge Medication List: Ambulatory Orders Montelukast Na [Singulair -] 10 mg PO HS 05/02/17 Pregabalin [Lyrica -] 75 mg PO BID 05/02/17 Sennosides [Senna -] 1 tab PO HS 05/02/17 Morphine *Sr* [Ms Contin -] 15 mg PO BID 7 Days #14 tablet.sa MDD 30 05/10/17 Metoclopramide HCl [Reglan] 5 mg PO TID 08/29/17 Nitroglycerin Sublingual [Nitrostat -] 0.4 mg .ROUTE ASDIR PRN 08/29/17 Nystatin Oral Suspension - [Nystatin Oral Susp 026531 Units/5 ML -] 100,000 units PO Q6H 08/29/17 Tiotropium [place] [Spiriva Respimat] 2.5 mcg IH DAILY 08/29/17 Insulin Sliding Scale [Novolog Vial Sliding Scale -] 0 units SQ ACHS 09/06/17 Apixaban [Eliquis -] 2.5 mg PO BID tablet 09/09/17 Albuterol 0.083% Nebulizer [place] [Ventolin 0.083% Nebulizer Soln -] 1 amp NEB Q4H PRN amp 09/22/17 Apixaban [Eliquis -] 2.5 mg PO BID 30 Days #60 tablet 09/22/17 Arformoterol Tartrate [Brovana -] 1 amp NEB RBID 30 Days #60 amp 09/22/17 Diltiazem [Cardizem -] 30 mg PO TID 30 Days #90 tablet 09/22/17 Furosemide [Lasix -] 40 mg PO DAILY 30 Days #30 tablet 09/22/17 Insulin Sliding Scale [Novolog Vial Sliding Scale -] 1 vial SQ ACHS units 09/22 Lisinopril [Prinivil] 10 mg PO DAILY 30 Days #30 tablet 09/22/17 Montelukast Na [Singulair -] 10 mg PO HS 30 Days #30 tablet 09/22/17 Morphine *Sr* [Ms Contin -] 15 mg PO BID 7 Days #14 tablet.sa MDD 30 09/22/17 Omeprazole 40 mg PO HS 30 Days #30 capsule. 09/22/17 Sodium Chloride Nasal [place] [[place] Nasal [place] -] 2 spray NS BID 30 Days # 1 spray 09/22/17 Furosemide [Lasix -] 60 mg PO DAILY tablet 10/05/17 Insulin (Levemir) [Levemir Vial] 30 units SQ AM units 10/05/17 Insulin (Levemir) [Levemir Vial] 40 units SQ HS units 10/05/17 Insulin Sliding Scale [Novolog Vial Sliding Scale -] 1 vial SQ ACHS units 10/05 Mag Hydrox/Al Hydrox/Simeth [MAALOX *SUSPENSION* -] 30 ml PO Q6H PRN ml Mag Hydrox/Al Hydrox/Simeth [Mylanta Oral Suspension -] 30 ml PO Q6H PRN cup Polyethylene Glycol 3350 [Miralax 119 gm Btl -] 17 gm PO BID bottle 10/05/17 predniSONE [Deltasone -] 60 mg PO DAILY tablet 10/05/17 predniSONE [Deltasone -] 60 mg PO DAILY 30 Days #60 tablet 10/05/17
[2017-10-05] MEDS: SENNOSIDES 8.6MG TABLET (FP) PO SCH (22:06)
[2017-10-05] MEDS: MONTELUKAST NA 10 MG TABLET PO SCH (22:06)
[2017-10-05] MEDS: PANTOPRAZOLE 40 MG TABLET (FP) PO SCH (22:12)
[2017-10-05 22:18] VITALS: BP 106/68; PULSE 96; TEMP 98.2
== END 2017-10-05 23:32 | disposition home or self-care (01) | DRG 133 ==
LOC: JER 09:12 → JERBED 12:09 → J4W 22:02
PROVIDERS: ADMIT Family Medicine; ATTEND Family Medicine
DX: J96.21 Acute and chronic respiratory failure with hypoxia (principal); J18.9 Pneumonia, unspecified organism; J96.22 Acute and chronic respiratory failure with hypercapnia; D86.0 Sarcoidosis of lung; I11.0 Hypertensive heart disease with heart failure; I50.32 Chronic diastolic (congestive) heart failure; I27.20 Pulmonary hypertension, unspecified; G47.33 Obstructive sleep apnea (adult) (pediatric); J45.909 Unspecified asthma, uncomplicated; K59.00 Constipation, unspecified; E11.9 Type 2 diabetes mellitus without complications; J44.1 Chronic obstructive pulmonary disease with (acute) exacerbation; J84.10 Pulmonary fibrosis, unspecified; D72.829 Elevated white blood cell count, unspecified; D86.85 Sarcoid myocarditis; Z95.810 Presence of automatic (implantable) cardiac defibrillator; I47.1 Supraventricular tachycardia; E66.9 Obesity, unspecified; Z68.31 Body mass index [BMI] 31.0-31.9, adult
CPT/HCPCS: 36415; 71045-TC-FY; 76705-TC; 80048; 80053; 82550; 82962; 83605; 83735; 83880; 84484; 85025; 87040; 93005; 93010; 93306-TC; 94640; 94660; 97116-GP; 97161-GP; 99284-25; J0131; J7620

== ENCOUNTER 2017-10-13 04:51 | Inpatient (IN) | payer OTHER ==
--- NOTE | 2017-10-13 05:06 | PDOC ---
Attending Attestation - HPI HPI: 10/13/17 05:14 The patient is a 62 year old female, with a significant past medical history of COPD, CHF, DM, scaradosis, Afib, Hepatitis C, asthma, and HTN, who presents to the emergency department with, shortness of breath. As per patient, 10 hours prior to her arrival she developed sudden onset shortness of breath. She self- administered duonebs 4 hours prior to her arrival, without relief. She called EMS 3 hours prior to her arrival, however, began to feel better on the bus ride to the hospital. The patient is currently on 4 liters of at home oxygen. She is compliant with all her medications including her 80 mg of Lasix. She denies recent fevers, chills, headache or dizziness. She denies recent nausea, vomit, diarrhea or constipation. She denies recent dysuria, frequency, urgency or hematuria. She denies recent chest pain. Allergies: Amoxicillin, aspirin, bacitracin, ciprofloxacin, clavulanic acid, codeine, ketorolac, levofloxacin, metronidazole, nalbuphine Past surgical history: PPMD, Back. Social history: Former smoker. Denies EtOH use and recreational drug use. Primary Care Physician: Dr. Fuchs Forensic Identification Specialist: Dr. Lockhart - Medical Decision Making 10/13/17 06:[address] Fuchs, patient's PCP, for admission, case was discussed. <Chas Sorensen - Last Filed: 10/13/17 06:06> - Resident Resident Name: Miguelito Thomas - ED Attending Attestation I have performed the following: I have examined & evaluated the patient, The case was reviewed & discussed with the resident, I agree w/resident's findings & plan, Exceptions are as noted - Physicial Exam PE: 10/13/17 19:17 physical exam*Physical Exam General Appearance: Yes: Appropriately Dressed. No: Apparent Distress, Intoxicated HEENT: positive: EOMI, [place], Normal ENT Inspection, Normal Voice, TMs Normal, Pharynx Normal. negative: Pale Conjunctivae, Photophobia, Scleral Icterus (R), Scleral Icterus (L) Neck: positive: Trachea midline, Normal Thyroid, Supple. negative: Tender, Rigid, Carotid bruit, Stridor, Lymphadenopathy (R), Lymphadenopathy (L), Thyromegaly Respiratory/Chest: positive: bilateral rales to all lung wilhelm decreased BS negative: Chest Tender, ReAccessory Muscle Use, Labored Respiration, RES, , Rhonchi, Stridor, Wheezing, Dullness Cardiovascular: positive: Regular Rhythm, Regular Rate, S1, S2. negative: Edema , JVD, Murmur, Bradycardia, Tachycardia Vascular Pulses: Dorsalis-Pedis (R): 2+, Doralis-Pedis (L): 2+ Gastrointestinal/Abdominal: positive: Normal Bowel Sounds, Flat, Soft. negative : Tender, Organomegaly, Pulsatile Mass, Increased Bowel Sounds, Decreased BS, Distended, Guarding, Rebound, Hernia, Hepatomegaly, Spleenomegaly Lymphatic: negative: Adenopathy, Tenderness Musculoskeletal: positive: Normal Inspection. negative: CVA Tenderness, Decreased Range of Motion Extremity: positive: Normal Capillary Refill, Normal Inspection, Normal Range of Motion, Pelvis Stable. negative: Tender, Pedal Edema, Swelling, Erythema Integumentary: positive: Normal Color, Dry, Warm. negative: Cyanotic, Erythema , Jaundice, Rash Neurologic: positive: central office repairer II-XII NML intact, Fully Oriented, Alert, Normal Mood/ Affect, Motor Strength 5/5. negative: EOM Palsy, Facial Droop, Sensory Deficit - Medical Decision Making 10/13/17 19:20 Pt admitted to Telemetry <Taz Kline - Last Filed: 10/13/17 19:20> Attestations - Attestations 10/13/17 05:14 Documentation prepared by Chas Sorensen, acting as medical imaging technologist for Taz Kline DO. <Chas Sorensen - Last Filed: 10/13/17 06:06>
[2017-10-13] MEDS ORDERED: FUROSEMIDE 40 MG/4 ML INJECTABLE VIAL IVPUSH ONE (05:08)
[2017-10-13 05:11] VITALS: BMI 31.2
--- NOTE | 2017-10-13 05:14 | PDOC ---
History of Present Illness - General Chief Complaint: Shortness of Breath Stated Complaint: DIFFICULTY BREATHING Time Seen by Provider: 10/13/17 04:58 History Source: Patient Exam Limitations: No Limitations - History of Present Illness Initial Comments: 10/13/17 05:09 62 yo F w/ a hx of asthma, COPD, Afib, Hep C, CHF, Diabetes, HTN, Sarcoidosis is here with SOB. She started having difficulty breathing at 7 PM last night, took a duoneb at 1 am but felt no relief, then called EMS at 4 am. She is permanently on 4 liters of oxygen. Since EMS got her she has been satting at 100 %. She takes 80 of Lasix regularly and states she is compliant with her meds. She endorses regular edema in her wrists and ankles. She denies any recent fevers 10/13/17 05:15 Timing/Duration: 4-6 hours Severity: severe Associated Symptoms: reports: chest pain. denies: fever/chills Past History - Travel Traveled outside of the country in the last 30 days: No Close contact w/someone who was outside of country & ill: No - Past Medical History Allergies/Adverse Reactions: Allergies Allergy/AdvReac Type Severity Reaction Status Date / Time medroxyprogesterone acetate Allergy Severe stepehns Verified 10/13/17 05:06 [From Depo-Provera] josé syndrome amoxicillin [From Augmentin] Allergy Verified 10/13/17 05:06 amoxicillin trihydrate Allergy Verified 10/13/17 05:06 [From Augmentin] aspirin Allergy Verified 10/13/17 05:06 azithromycin [From Zithromax] Allergy Dewey Verified 10/13/17 05:06 José syndrome bacitracin Allergy Verified 10/13/17 05:06 ciprofloxacin [From Cipro] Allergy Verified 10/13/17 05:06 ciprofloxacin HCl Allergy Verified 10/13/17 05:06 [From Cipro] clavulanic acid Allergy Verified 10/13/17 05:06 [From Augmentin] codeine [Codeine] Allergy Verified 10/13/17 05:06 Iodinated Contrast- Oral and Allergy Verified 10/13/17 05:06 IV Dye [IV Dye, Iodine Containing Contrast ] ketorolac [From Toradol] Allergy Verified 10/13/17 05:06 ketorolac tromethamine Allergy Verified 10/13/17 05:06 [From Toradol] levofloxacin [From Levaquin] Allergy Verified 10/13/17 05:06 metronidazole [From Flagyl] Allergy Verified 10/13/17 05:06 nalbuphine [From Nubain] Allergy Verified 10/13/17 05:06 nalbuphine HCl [From Nubain] Allergy CYANOSIS Verified 10/13/17 05:06 potassium clavulanate Allergy Verified 10/13/17 05:06 [From Augmentin] Shellfish Allergy Verified 10/13/17 05:06 sulfamethoxazole Allergy Verified 10/13/17 05:06 [From Bactrim] trimethoprim [From Bactrim] Allergy Verified 10/13/17 05:06 ivp dye Allergy Severe Swelling Uncoded 09/30/17 09:18 Home Medications: Ambulatory Orders Montelukast Na [Singulair -] 10 mg PO HS 05/02/17 Pregabalin [Lyrica -] 75 mg PO BID 05/02/17 Sennosides [Senna -] 1 tab PO HS 05/02/17 Morphine *Sr* [Ms Contin -] 15 mg PO BID 7 Days #14 tablet.sa MDD 30 05/10/17 Metoclopramide HCl [Reglan] 5 mg PO TID 08/29/17 Nitroglycerin Sublingual [Nitrostat -] 0.4 mg .ROUTE ASDIR PRN 08/29/17 Nystatin Oral Suspension - [Nystatin Oral Susp 756035 Units/5 ML -] 100,000 units PO Q6H 08/29/17 Tiotropium [place] [Spiriva Respimat] 2.5 mcg IH DAILY 08/29/17 Insulin Sliding Scale [Novolog Vial Sliding Scale -] 0 units SQ ACHS 09/06/17 Apixaban [Eliquis -] 2.5 mg PO BID tablet 09/09/17 Albuterol 0.083% Nebulizer Gisela [Ventolin 0.083% Nebulizer Soln -] 1 amp NEB Q4H PRN amp 09/22/17 Apixaban [Eliquis -] 2.5 mg PO BID 30 Days #60 tablet 09/22/17 Arformoterol Tartrate [Brovana -] 1 amp NEB RBID 30 Days #60 amp 09/22/17 Diltiazem [Cardizem -] 30 mg PO TID 30 Days #90 tablet 09/22/17 Furosemide [Lasix -] 40 mg PO DAILY 30 Days #30 tablet 09/22/17 Insulin Sliding Scale [Novolog Vial Sliding Scale -] 1 vial SQ ACHS units 09/22 Lisinopril [Prinivil] 10 mg PO DAILY 30 Days #30 tablet 09/22/17 Montelukast Na [Singulair -] 10 mg PO HS 30 Days #30 tablet 09/22/17 Morphine *Sr* [Ms Contin -] 15 mg PO BID 7 Days #14 tablet.sa MDD 30 09/22/17 Omeprazole 40 mg PO HS 30 Days #30 capsule. 09/22/17 Sodium Chloride Nasal [place] [[place] Nasal [place] -] 2 spray NS BID 30 Days # 1 spray 09/22/17 Furosemide [Lasix -] 60 mg PO DAILY tablet 10/05/17 Insulin (Levemir) [Levemir Vial] 30 units SQ AM units 10/05/17 Insulin (Levemir) [Levemir Vial] 40 units SQ HS units 10/05/17 Insulin Sliding Scale [Novolog Vial Sliding Scale -] 1 vial SQ ACHS units 10/05 Mag Hydrox/Al Hydrox/Simeth [MAALOX *SUSPENSION* -] 30 ml PO Q6H PRN ml Mag Hydrox/Al Hydrox/Simeth [Mylanta Oral Suspension -] 30 ml PO Q6H PRN cup Polyethylene Glycol 3350 [Miralax 119 gm Btl -] 17 gm PO BID bottle 10/05/17 predniSONE [Deltasone -] 60 mg PO DAILY tablet 10/05/17 predniSONE [Deltasone -] 60 mg PO DAILY 30 Days #60 tablet 10/05/17 Anemia: Yes Asthma: Yes Cancer: No Cardiac Disorders: Yes (afib) CVA: No COPD: Yes (scaradosis) CHF: Yes Dementia: No Diabetes: Yes GI Disorders: Yes (acid reflux, gastric paresis, GERD) Disorders: Yes (Urinary retention) HTN: Yes Hypercholesterolemia: Yes Liver Disease: Yes (hep c) Seizures: No Thyroid Disease: No - Surgical History Abdominal Surgery: Yes Appendectomy: No Cardiac Surgery: Yes (ppmd) Cholecystectomy: No Gastric Stapling: No Lung Surgery: No Neurologic Surgery: Yes (BACK SX WITH LLE NERVE DAMAGE) Orthopedic Surgery: Yes (laminectomy x 2 in 2009 in [facility]) - Immunization History Immunization Up to Date: Yes - Suicide/Smoking/Psychosocial Hx Smoking Status: No Smoking History: Never smoked Have you smoked in the past 12 months: No Number of Cigarettes Smoked Daily: 0 Cigars Per Day: 0 Hx Alcohol Use: No Drug/Substance Use Hx: No Substance Use Type: None Hx Substance Use Treatment: No Review of Systems - Review of Systems Able to Perform ROS?: Yes Is the patient limited Turkish proficient: Yes Constitutional: Yes: Diaphoresis Respiratory: Yes: See HPI, Cough (non-productive), Orthopnea, Shortness of Breath, SOB with Exertion, SOB at Rest, Wheezing. No: Productive cough, Hemoptysis Cardiac (ROS): Yes: Chest Pain, Edema, Irregular Heart Rate, Chest Tightness ABD/GI: Yes: Nausea. No: Diarrhea, Abdominal cramping : No: Dysuria, Discharge, Frequency, Flank Pain, Urgency Musculoskeletal: No: Back Pain Neurological: No: Headache, Numbness, Paresthesia, Tingling Endocrine: No: Excessive Sweating, Flushing, Intolerance to Cold, Intolerance to Heat, Increased Hunger, Increased Thirst, Increased Urine, Unexplained Weight Gain, Unexplained Weight Loss Hematologic/Lymphatic: Yes: Anemia *Physical Exam - Physical Exam Comments: 10/13/17 05:25 Lung exam: Clear crackles and gurgles upon lung auscultation midway up the lung. Extremities: 2+ Pitting edema in both ankles Cardio: RRR, normal s1/s2, no M/R/G appreciated. 10/13/17 05:27 General Appearance: Yes: Nourished, Apparent Distress, Moderate Distress HEENT: positive: EOMI, ANGEL, Normal ENT Inspection Neck: positive: Trachea midline. negative: Carotid bruit, Lymphadenopathy (R) Respiratory/Chest: positive: Respiratory Distress, Labored Respiration, Crackles , Dullness. negative: Lungs Clear, Normal Breath Sounds Cardiovascular: positive: Regular Rhythm, Regular Rate, S1, S2, Edema Vascular Pulses: Femoral (R): 1+, Femoral (L): 1+, Dorsalis-Pedis (R): 1+, Doralis-Pedis (L): 1+ Gastrointestinal/Abdominal: positive: Normal Bowel Sounds, Soft. negative: Distended, Guarding, Rebound Musculoskeletal: positive: Normal Inspection. negative: CVA Tenderness Extremity: positive: Coldness, Delayed Capillary Refill, Pedal Edema, Swelling. 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 She has been satting at 100% in the ER. giving her Lasix in the ER. This is most likely a heart failure exacerbation given the vast amount of fluid heard on auscultation of the lungs. Planning to Admit patient for chf and copd exacerbations. 10/13/17 06:10 *DC/Admit/Observation/Transfer Diagnosis at time of Disposition: SOB (shortness of breath), CHF (congestive heart failure), COPD exacerbation - Discharge Dispostion Condition at time of disposition: Stable Decision to Admit order: Yes - Referrals Referrals: Whit Fuchs MD [Primary Care Provider] - - Patient Instructions - Post Discharge Activity
[2017-10-13 05:27] LABS: BASO % 0.5 % (0-2.0); EOS % 0.2 % (0-4.5); HEMATOCRIT 28.7 % (32.4-45.2); HEMOGLOBIN 9.2 GM/dL (10.7-15.3); LYMPH % 11.5 % (8-40); MCH 27.2 pg (25.7-33.7); MCHC 31.9 g/dl (32.0-36.0); MEAN CELL VOLUME 85.2 fl (80-96); MEAN PLT VOLUME 7.3 fl (7.5-11.1); MONO % 3.6 % (3.8-10.2); NEUT % 84.2 % (42.8-82.8); PLATELET COUNT 348 K/MM3 (134-434); RBC 3.37 M/mm3 (3.60-5.2); RDW 17.3 % (11.6-15.6); WHITE BLOOD COUNT 9.6 K/mm3 (4.0-10.0)
[2017-10-13 05:29] LABS: VENOUS PC02 51.8 mmHg (38-52); VENOUS PH 7.48 (7.32-7.42)
[2017-10-13 05:40] LABS: INR 1.32 (0.82-1.09); PROTHROMBIN TIME (PATIENT) 14.9 SEC (9.7-13.0)
[2017-10-13 05:48] LABS: ALBUMIN 2.4 g/dl (3.4-5.0); ANION GAP 7 (8-16); BILIRUBIN,TOTAL 0.2 mg/dL (0.2-1.0); BLOOD UREA NITROGEN 22 mg/dL (7-18); CALCIUM 8.1 mg/dL (8.5-10.1); CHLORIDE 102 mmol/L (98-107); CO2 37 mmol/L (21-32); CREATININE 0.5 mg/dL (0.55-1.02); GLUCOSE,RANDOM 82 mg/dL (74-106); MAGNESIUM 1.5 mg/dL (1.8-2.4); POTASSIUM 3.2 mmol/L (3.5-5.1); SGOT/AST 10 U/L (15-37); SGPT/ALT 24 U/L (12-78); SODIUM 146 mmol/L (136-145); TOT PROT 6.4 g/dl (6.4-8.2)
[2017-10-13 05:51] LABS: ALK PHOS 96 U/L (45-117); N-TERMINAL BNP 66.95 pg/ml (5-125)
[2017-10-13] MEDS ORDERED: FUROSEMIDE 40 MG/4 ML INJECTABLE VIAL ONE (05:52)
[2017-10-13] MEDS ORDERED: POTASSIUM CHLORIDE TABS 10 MEQ TABLET.ER (FP) PO ONE (06:02)
[2017-10-13] MEDS ORDERED: POTASSIUM CHLORIDE ORAL LIQUID 20 MEQ/15 ML ONE (06:23)
[2017-10-13 06:28] LABS: URINE APPEARANCE SLCLOUDY; URINE BILIRUBIN NEGATIVE (<2.0 mg/dL); URINE COLOR YELLOW; URINE GLUCOSE (UA) 3+ (NEGATIVE); URINE KETONE NEGATIVE (NEGATIVE); URINE NITRITE POSITIVE (NEGATIVE); URINE PROTEIN NEGATIVE (NEGATIVE); URINE UROBILINOGEN NEGATIVE mg/dL (0.2-1.0)
[2017-10-13 06:43] LABS: URINE LEUK ESTERASE 2+ (NEGATIVE)
[2017-10-13 06:45] LABS: EPI CELLS RARE /HPF (FEW); URINE BACTERIA FEW /hpf (NONE SEEN)
[2017-10-13] MEDS ORDERED: dilTIAZem HCL 30 MG TABLET (FP) ONE (07:37)
[2017-10-13] MEDS ORDERED: dilTIAZem HCL 125 MG/25 ML - 25 ML VIAL ONE (07:37)
[2017-10-13] MEDS ORDERED: dilTIAZem HCL 30 MG TABLET (FP) PO ONE (07:37)
[2017-10-13] MEDS ORDERED: dilTIAZem HCL 50 MG/10 ML - 10 ML VIAL IVPUSH ONE (07:37)
--- NOTE | 2017-10-13 07:49 | CON.CARD ---
Consult Reason for Consultation:: sob - History of Present Illness History of Present Illness: 62 yo F w/ a hx of asthma, COPD, Afib, Hep C, CHF, Diabetes, HTN, Sarcoidosis is here with SOB. She started having difficulty breathing at 7 PM last night, took a duoneb at 1 am but felt no relief, then called EMS at 4 am. She is permanently on 4 liters of oxygen. Since EMS got her she has been satting at 100 %. She takes 80 of Lasix regularly and states she is compliant with her meds. She endorses regular edema in her wrists and ankles. She denies any recent fevers 10/13/17 05:15 PMH Cardiac sarcoid, pulmonary sarcoid H/o ICD for syncope, VT, MRI + sarcoid DVT --On Eliquis Recent severe epistaxis, seen by laura---> dose changed to 2.5 BID Chronic diastolic CHF Multifocal atrial tachycardia and Paroxysmal A-Tach Frequent admissions for decompensated diastolic CHF or bronchospasm/Sarcoid exacerbations. Requires steroid tapers intermittently. She was recently discharged from here after a short admissions for decompensated diastolic CHF in the setting of Lasix discontinuation. Now readmitted for worsened SOB, cough for one day. In ER found to have elevated WBC, admitted for treatment of suspected PNA. She denies CP/ palps/edema/syncope. 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 Spinal cord stimulator. Multiple drug allergies. History of Ferrer José syndrome - Past Surgical History Past Surgical History: Yes: Laminectomy, AICD, Permanent Pacemaker - Alcohol/Substance Use Hx Alcohol Use: No - Smoking History Smoking history: Never smoked Have you smoked in the past 12 months: No Aproximately how many cigarettes per day: 0 - Social History ADL: Support Services History of Recent Travel: No Home Medications - Allergies Allergies/Adverse Reactions: Allergies Allergy/AdvReac Type Severity Reaction Status Date / Time medroxyprogesterone acetate Allergy Severe stepehns Verified 10/13/17 05:06 [From Depo-Provera] josé syndrome amoxicillin [From Augmentin] Allergy Verified 10/13/17 05:06 amoxicillin trihydrate Allergy Verified 10/13/17 05:06 [From Augmentin] aspirin Allergy Verified 10/13/17 05:06 azithromycin [From Zithromax] Allergy Dewey Verified 10/13/17 05:06 José syndrome bacitracin Allergy Verified 10/13/17 05:06 ciprofloxacin [From Cipro] Allergy Verified 10/13/17 05:06 ciprofloxacin HCl Allergy Verified 10/13/17 05:06 [From Cipro] clavulanic acid Allergy Verified 10/13/17 05:06 [From Augmentin] codeine [Codeine] Allergy Verified 10/13/17 05:06 Iodinated Contrast- Oral and Allergy Verified 10/13/17 05:06 IV Dye [IV Dye, Iodine Containing Contrast ] ketorolac [From Toradol] Allergy Verified 10/13/17 05:06 ketorolac tromethamine Allergy Verified 10/13/17 05:06 [From Toradol] levofloxacin [From Levaquin] Allergy Verified 10/13/17 05:06 metronidazole [From Flagyl] Allergy Verified 10/13/17 05:06 nalbuphine [From Nubain] Allergy Verified 10/13/17 05:06 nalbuphine HCl [From Nubain] Allergy CYANOSIS Verified 10/13/17 05:06 potassium clavulanate Allergy Verified 10/13/17 05:06 [From Augmentin] Shellfish Allergy Verified 10/13/17 05:06 sulfamethoxazole Allergy Verified 10/13/17 05:06 [From Bactrim] trimethoprim [From Bactrim] Allergy Verified 10/13/17 05:06 ivp dye Allergy Severe Swelling Uncoded 09/30/17 09:18 - Home Medications Home Medications: Ambulatory Orders Montelukast Na [Singulair -] 10 mg PO HS 05/02/17 Pregabalin [Lyrica -] 75 mg PO BID 05/02/17 Sennosides [Senna -] 1 tab PO HS 05/02/17 Morphine *Sr* [Ms Contin -] 15 mg PO BID 7 Days #14 tablet.sa MDD 30 05/10/17 Metoclopramide HCl [Reglan] 5 mg PO TID 08/29/17 Nitroglycerin Sublingual [Nitrostat -] 0.4 mg .ROUTE ASDIR PRN 08/29/17 Nystatin Oral Suspension - [Nystatin Oral Susp 534833 Units/5 ML -] 100,000 units PO Q6H 08/29/17 Tiotropium [place] [Spiriva Respimat] 2.5 mcg IH DAILY 08/29/17 Insulin Sliding Scale [Novolog Vial Sliding Scale -] 0 units SQ ACHS 09/06/17 Albuterol 0.083% Nebulizer Gisela [Ventolin 0.083% Nebulizer Soln -] 1 amp NEB Q4H PRN amp 09/22/17 Apixaban [Eliquis -] 2.5 mg PO BID 30 Days #60 tablet 09/22/17 Arformoterol Tartrate [Brovana -] 1 amp NEB RBID 30 Days #60 amp 09/22/17 Diltiazem [Cardizem -] 30 mg PO TID 30 Days #90 tablet 09/22/17 Furosemide [Lasix -] 40 mg PO DAILY 30 Days #30 tablet 09/22/17 Lisinopril [Prinivil] 10 mg PO DAILY 30 Days #30 tablet 09/22/17 Omeprazole 40 mg PO HS 30 Days #30 capsule. 09/22/17 Sodium Chloride Nasal [place] [[place] Nasal [place] -] 2 spray NS BID 30 Days # 1 spray 09/22/17 Insulin (Levemir) [Levemir Vial] 30 units SQ AM units 10/05/17 Insulin (Levemir) [Levemir Vial] 40 units SQ HS units 10/05/17 Insulin Sliding Scale [Novolog Vial Sliding Scale -] 1 vial SQ ACHS units 10/05 Mag Hydrox/Al Hydrox/Simeth [MAALOX *SUSPENSION* -] 30 ml PO Q6H PRN ml Polyethylene Glycol 3350 [Miralax 119 gm Btl -] 17 gm PO BID bottle 10/05/17 predniSONE [Deltasone -] 60 mg PO DAILY tablet 10/05/17 Family Disease History - Family Disease History Family Disease History: Other: Mother (3 CVAs, the first in her 60s) Review of Systems - Review of Systems Constitutional: reports: No Symptoms Eyes: reports: No Symptoms HENT: reports: No Symptoms Neck: reports: No Symptoms Cardiovascular: reports: Shortness of Breath Respiratory: reports: SOB, SOB on Exertion Gastrointestinal: reports: No Symptoms Genitourinary: reports: No Symptoms Breasts: reports: No Symptoms Reported Musculoskeletal: reports: No Symptoms Integumentary: reports: No Symptoms Neurological: reports: No Symptoms Endocrine: reports: No Symptoms Hematology/Lymphatic: reports: No Symptoms Psychiatric: reports: No Symptoms Vital Signs: Vital Signs Temperature 97.5 F L 10/13/17 05:08 Pulse Rate 132 H 10/13/17 07:35 Respiratory Rate 20 10/13/17 05:08 Blood Pressure 126/87 10/13/17 07:35 O2 Sat by Pulse Oximetry (%) 100 10/13/17 05:11 Constitutional: Yes: Well Nourished, No Distress, Calm Eyes: Yes: WNL, Conjunctiva Clear, EOM Intact HENT: Yes: WNL, Atraumatic, Normocephalic Neck: Yes: WNL, Supple, Trachea Midline Respiratory: Yes: Rales, Rhonchi Gastrointestinal: Yes: WNL, Normal Bowel Sounds Renal/: Yes: WNL Cardiovascular: Yes: WNL, Regular Rate and Rhythm Musculoskeletal: Yes: WNL Extremities: Yes: WNL Integumentary: Yes: WNL Neurological: Yes: WNL, Alert, Oriented ...Motor Strength: WNL Psychiatric: Yes: WNL, Alert, Oriented - Other Data Labs, Other Data: CBC, BMP 10/13/17 05:15 10/13/17 05:15 INR, PTT INR 1.32 (0.82-1.09) H 10/13/17 05:15 Troponin, BNP 10/13/17 05:15 Troponin I < 0.02 B-Natriuretic Peptide 66.95 Troponin, BNP 10/13/17 05:15 Troponin I < 0.02 B-Natriuretic Peptide 66.95 Laboratory Tests 10/13/17 10/13/17 10/13/17 05:15 05:15 05:15 WBC 9.6 RBC 3.37 L Hgb 9.2 L Hct 28.7 L MCV 85.2 MCH 27.2 MCHC 31.9 L RDW 17.3 H Plt Count 348 MPV 7.3 L Absolute Neuts (auto) 8.1 Neutrophils % 84.2 H Lymphocytes % 11.5 D Monocytes % 3.6 L D Eosinophils % 0.2 D Basophils % 0.5 Nucleated RBC % 0 PT with INR 14.90 H INR 1.32 H VBG pH POC VBG pCO2 POC VBG pO2 Mixed VBG HCO3 Sodium 146 H Potassium 3.2 L Chloride 102 Carbon Dioxide 37 H Anion Gap 7 L BUN 22 H Creatinine 0.5 L Creat Clearance w eGFR > 60 Random Glucose 82 Calcium 8.1 L Magnesium 1.5 L Total Bilirubin 0.2 AST 10 L ALT 24 Alkaline Phosphatase 96 Creatine Kinase 12 L Troponin I < 0.02 B-Natriuretic Peptide 66.95 Total Protein 6.4 Albumin 2.4 L Urine Color Urine Appearance Urine pH Ur Specific [place] Urine Protein Urine Glucose (UA) Urine Ketones Urine Blood Urine Nitrite Urine Bilirubin Urine Urobilinogen Ur Leukocyte Esterase Urine WBC (Auto) Urine RBC (Auto) Ur Epithelial Cells Urine Bacteria 10/13/17 10/13/17 05:20 06:08 WBC RBC Hgb Hct MCV MCH MCHC RDW Plt Count MPV Absolute Neuts (auto) Neutrophils % Lymphocytes % Monocytes % Eosinophils % Basophils % Nucleated RBC % PT with INR INR VBG pH 7.48 H POC VBG pCO2 51.8 POC VBG pO2 158.0 H* D Mixed VBG HCO3 37.8 H Sodium Potassium Chloride Carbon Dioxide Anion Gap BUN Creatinine Creat Clearance w eGFR Random Glucose Calcium Magnesium Total Bilirubin AST ALT Alkaline Phosphatase Creatine Kinase Troponin I B-Natriuretic Peptide Total Protein Albumin Urine Color Yellow Urine Appearance Slcloudy Urine pH 6.0 Ur Specific [place] 1.023 Urine Protein Negative Urine Glucose (UA) 3+ H D Urine Ketones Negative Urine Blood Negative Urine Nitrite Positive Urine Bilirubin Negative Urine Urobilinogen Negative Ur Leukocyte Esterase 2+ H Urine WBC (Auto) 123 Urine RBC (Auto) 3 Ur Epithelial Cells Rare Urine Bacteria Few Imaging - Results Chest X-ray: Image Reviewed (? increased markings AICD) EKG: Image Reviewed (s tachy/MAT) Problem List - Problems (1) CHF (congestive heart failure) Code(s): I50.9 - HEART FAILURE, UNSPECIFIED (2) COPD exacerbation Code(s): J44.1 - CHRONIC OBSTRUCTIVE PULMONARY DISEASE W (ACUTE) EXACERBATION (3) SOB (shortness of breath) Code(s): R06.02 - SHORTNESS OF BREATH (4) SHERRI (acute kidney injury) Code(s): N17.9 - ACUTE KIDNEY FAILURE, UNSPECIFIED (5) Abdominal pain Code(s): R10.9 - UNSPECIFIED ABDOMINAL PAIN (6) Acute on chronic respiratory failure with hypoxia and hypercapnia Code(s): J96.21 - ACUTE AND CHRONIC RESPIRATORY FAILURE WITH HYPOXIA; J96.22 - ACUTE AND CHRONIC RESPIRATORY FAILURE WITH HYPERCAPNIA (7) Allergy to multiple antibiotics Code(s): Z88.1 - ALLERGY STATUS TO OTHER ANTIBIOTIC AGENTS STATUS (8) COPD (chronic obstructive pulmonary disease) Code(s): J44.9 - CHRONIC OBSTRUCTIVE PULMONARY DISEASE, UNSPECIFIED (9) COPD exacerbation Code(s): J44.1 - CHRONIC OBSTRUCTIVE PULMONARY DISEASE W (ACUTE) EXACERBATION (10) Cardiac sarcoidosis Code(s): 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 (11) Chest pain Code(s): R07.9 - CHEST PAIN, UNSPECIFIED Qualifiers: Chest pain type: unspecified Qualified Code(s): R07.9 - Chest pain, unspecified (12) Chronic diastolic CHF (congestive heart failure) Code(s): I50.32 - CHRONIC DIASTOLIC (CONGESTIVE) HEART FAILURE (13) Chronic diastolic CHF (congestive heart failure) Code(s): I50.32 - CHRONIC DIASTOLIC (CONGESTIVE) HEART FAILURE (14) Chronic low back pain Code(s): M54.5 - LOW BACK PAIN; G89.29 - OTHER CHRONIC PAIN (15) DVT (deep venous thrombosis) Code(s): I82.409 - ACUTE EMBOLISM AND THOMBOS UNSP DEEP VN UNSP LOWER EXTREMITY Qualifiers: Laterality: unspecified laterality (16) DVT (deep venous thrombosis) Code(s): I82.409 - ACUTE EMBOLISM AND THOMBOS UNSP DEEP VN UNSP LOWER EXTREMITY Qualifiers: DVT location: lower extremity Laterality: left (17) DVT prophylaxis Code(s): NIA3447 - (18) Diabetes mellitus Code(s): E11.9 - TYPE 2 DIABETES MELLITUS WITHOUT COMPLICATIONS Qualifiers: Diabetes mellitus type: type 2 Diabetes mellitus complication status: without complication (19) Dysuria Code(s): R30.0 - DYSURIA (20) EKG abnormalities Code(s): R94.31 - ABNORMAL ELECTROCARDIOGRAM [ECG] [EKG] (21) Epistaxis Code(s): R04.0 - EPISTAXIS (22) Fall Code(s): W19.XXXA - UNSPECIFIED FALL, INITIAL ENCOUNTER Qualifiers: Encounter type: initial encounter Qualified Code(s): W19.XXXA - Unspecified fall, initial encounter (23) Fracture, metacarpal Code(s): S62.309A - UNSP FRACTURE OF UNSP METACARPAL BONE, INIT FOR CLOS FX (24) Gram-negative bacteremia Code(s): R78.81 - BACTEREMIA (25) Head injury Code(s): S09.90XA - UNSPECIFIED INJURY OF HEAD, INITIAL ENCOUNTER Qualifiers: Encounter type: initial encounter Qualified Code(s): S09.90XA - Unspecified injury of head, initial encounter (26) Hypercarbia Code(s): R06.89 - OTHER ABNORMALITIES OF BREATHING (27) Hypotension Code(s): I95.9 - HYPOTENSION, UNSPECIFIED (28) Hypoxia Code(s): R09.02 - HYPOXEMIA (29) ICD (implantable cardioverter-defibrillator) in place Code(s): Z95.810 - PRESENCE OF AUTOMATIC (IMPLANTABLE) CARDIAC DEFIBRILLATOR (30) ICD (implantable cardioverter-defibrillator) in place Code(s): Z95.810 - PRESENCE OF AUTOMATIC (IMPLANTABLE) CARDIAC DEFIBRILLATOR (31) ICD (implantable cardioverter-defibrillator), dual, in situ Code(s): Z95.810 - PRESENCE OF AUTOMATIC (IMPLANTABLE) CARDIAC DEFIBRILLATOR (32) Influenza A Code(s): J10.1 - FLU DUE TO OTH IDENT INFLUENZA VIRUS W OTH RESP MANIFEST (33) Interstitial lung disease Code(s): J84.9 - INTERSTITIAL PULMONARY DISEASE, UNSPECIFIED (34) Interstitial pulmonary fibrosis Code(s): J84.10 - PULMONARY FIBROSIS, UNSPECIFIED (35) Leukocytosis Code(s): D72.829 - ELEVATED WHITE BLOOD CELL COUNT, UNSPECIFIED (36) Lung infiltrate Code(s): R91.8 - OTHER NONSPECIFIC ABNORMAL FINDING OF LUNG FIELD (37) Multifocal atrial tachycardia Code(s): I47.1 - SUPRAVENTRICULAR TACHYCARDIA (38) Nasal bleeding Code(s): R04.0 - EPISTAXIS (39) Obstructive sleep apnea Code(s): G47.33 - OBSTRUCTIVE SLEEP APNEA (ADULT) (PEDIATRIC) (40) Oxygen dependent Code(s): Z99.81 - DEPENDENCE ON SUPPLEMENTAL OXYGEN (41) PHT (pulmonary hypertension) Code(s): I27.20 - PULMONARY HYPERTENSION, UNSPECIFIED (42) Pneumonia Code(s): J18.9 - PNEUMONIA, UNSPECIFIED ORGANISM Qualifiers: Pneumonia type: due to unspecified organism Laterality: left Lung location: unspecified part of lung Qualified Code(s): J18.9 - Pneumonia, unspecified organism (43) Pneumonia Code(s): J18.9 - PNEUMONIA, UNSPECIFIED ORGANISM (44) Pulmonary sarcoidosis Code(s): D86.0 - SARCOIDOSIS OF LUNG (45) Rapid atrial fibrillation Code(s): I48.91 - UNSPECIFIED ATRIAL FIBRILLATION (46) Respiratory failure Code(s): J96.90 - RESPIRATORY FAILURE, UNSP, UNSP W HYPOXIA OR HYPERCAPNIA (47) Sarcoid Code(s): D86.9 - SARCOIDOSIS, UNSPECIFIED (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 Code(s): 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 (49) Sarcoidosis Code(s): D86.9 - SARCOIDOSIS, UNSPECIFIED (50) Sarcoidosis Code(s): D86.9 - SARCOIDOSIS, UNSPECIFIED (51) Sarcoidosis Code(s): D86.9 - SARCOIDOSIS, UNSPECIFIED (52) Sarcoidosis of lung Code(s): D86.0 - SARCOIDOSIS OF LUNG (53) Septic shock Code(s): A41.9 - SEPSIS, UNSPECIFIED ORGANISM; R65.21 - SEVERE SEPSIS WITH SEPTIC SHOCK (54) Sinus tachycardia Code(s): R00.0 - TACHYCARDIA, UNSPECIFIED (55) Somnolence Code(s): R40.0 - SOMNOLENCE (56) Syncope Code(s): R55 - SYNCOPE AND COLLAPSE Qualifiers: Syncope type: unspecified Qualified Code(s): R55 - Syncope and collapse (57) Systemic inflammatory response syndrome (SIRS) Code(s): R65.10 - SIRS OF NON-INFECTIOUS ORIGIN W/O ACUTE ORGAN DYSFUNCTION (58) Transient ischemic attack Code(s): G45.9 - TRANSIENT CEREBRAL ISCHEMIC ATTACK, UNSPECIFIED (59) UTI (urinary tract infection) Code(s): N39.0 - URINARY TRACT INFECTION, SITE NOT SPECIFIED Qualifiers: Urinary tract infection type: site unspecified Hematuria presence: with hematuria Qualified Code(s): N39.0 - Urinary tract infection, site not specified; R31.9 - Hematuria, unspecified; R31.9 - Hematuria, unspecified (60) Ventricular tachycardia Code(s): I47.2 - VENTRICULAR TACHYCARDIA (61) Asthma Code(s): J45.909 - UNSPECIFIED ASTHMA, UNCOMPLICATED (62) Back pain Code(s): M54.9 - DORSALGIA, UNSPECIFIED Qualifiers: Back pain location: low back pain Chronicity: acute Back pain laterality : bilateral Sciatica presence: without sciatica Qualified Code(s): M54.5 - Low back pain (63) Diastolic CHF Code(s): I50.30 - UNSPECIFIED DIASTOLIC (CONGESTIVE) HEART FAILURE (64) IDDM (insulin dependent diabetes mellitus) Code(s): E11.9 - TYPE 2 DIABETES MELLITUS WITHOUT COMPLICATIONS; 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 Requires steroid tapers intermittently. admitted with sob plan steroids pulmonary consult bnp normal - doubt chf monitor on telemetry coverage for dr. Lockhart
--- NOTE | 2017-10-13 08:27 | EKG ---
Test Reason : Blood Pressure : / mmHG Vent. Rate : 115 BPM Atrial Rate : 115 BPM P-R Int : 138 ms QRS Dur : 074 ms QT Int : 296 ms P-R-T Axes : 028 000 035 degrees QTc Int : 409 ms SINUS TACHYCARDIA WITH PREMATURE ATRIAL COMPLEXES OTHERWISE NORMAL ECG WHEN COMPARED WITH ECG OF 03-OCT-2017 10:01, NO SIGNIFICANT CHANGE WAS FOUND Confirmed by ANILA CASANOVA MD ([id number]) on 10/13/2017 8:26:26 AM Referred By: Confirmed By:ANILA CASANOVA MD
--- NOTE | 2017-10-13 09:58 | PN ---
Progress Note (short form) - Note Progress Note: PULMONARY CONSULTAION DICTATED 10/13/17 IMP ACUTE ON CHRONIC HYPOXEMIC RESPIRATORY FAILURE ADVANCED PULMONARY SARCOID/ILD CARDIAC SARCOID PAROXYSMAL ATRIAL TACHYCARDIA OSVALDO OM BIPAP H/O V-TACH S/P ICD DIASTOLIC HF DM HTN H/O DVT ON ELIQUIS PULMONARY HTN COPD PLAN IV STEROIDS INHALED BRONCHODILATORS LASIX PER CARDIOLOGY O2 BIPAP AT NIGHT AND PRN SUPPLEMENTAL O2 DAILY WTS GLYCEMIC CONTROL DR EUBANKS Problem List - Problems (1) CHF (congestive heart failure) Code(s): I50.9 - HEART FAILURE, UNSPECIFIED (2) COPD exacerbation Code(s): J44.1 - CHRONIC OBSTRUCTIVE PULMONARY DISEASE W (ACUTE) EXACERBATION (3) SOB (shortness of breath) Code(s): R06.02 - SHORTNESS OF BREATH (4) Acute on chronic respiratory failure with hypoxia and hypercapnia Code(s): J96.21 - ACUTE AND CHRONIC RESPIRATORY FAILURE WITH HYPOXIA; J96.22 - ACUTE AND CHRONIC RESPIRATORY FAILURE WITH HYPERCAPNIA (5) Cardiac sarcoidosis Code(s): 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 (6) Chronic diastolic CHF (congestive heart failure) Code(s): I50.32 - CHRONIC DIASTOLIC (CONGESTIVE) HEART FAILURE (7) DVT (deep venous thrombosis) Code(s): I82.409 - ACUTE EMBOLISM AND THOMBOS UNSP DEEP VN UNSP LOWER EXTREMITY Qualifiers: Laterality: unspecified laterality (8) Diabetes mellitus Code(s): E11.9 - TYPE 2 DIABETES MELLITUS WITHOUT COMPLICATIONS Qualifiers: Diabetes mellitus type: type 2 Diabetes mellitus complication status: without complication (9) ICD (implantable cardioverter-defibrillator) in place Code(s): Z95.810 - PRESENCE OF AUTOMATIC (IMPLANTABLE) CARDIAC DEFIBRILLATOR (10) Interstitial lung disease Code(s): J84.9 - INTERSTITIAL PULMONARY DISEASE, UNSPECIFIED (11) Interstitial pulmonary fibrosis Code(s): J84.10 - PULMONARY FIBROSIS, UNSPECIFIED (12) PHT (pulmonary hypertension) Code(s): I27.20 - PULMONARY HYPERTENSION, UNSPECIFIED (13) Pulmonary sarcoidosis Code(s): D86.0 - SARCOIDOSIS OF LUNG (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 (15) Sarcoidosis Code(s): D86.9 - SARCOIDOSIS, UNSPECIFIED (16) Sarcoidosis of lung Code(s): D86.0 - SARCOIDOSIS OF LUNG (17) Diastolic CHF Code(s): I50.30 - UNSPECIFIED DIASTOLIC (CONGESTIVE) HEART FAILURE
[2017-10-13] MEDS ORDERED: NITROGLYCERIN SUBLINGUAL 1/150 0.4 MG TAB SL PRN (10:10)
[2017-10-13] MEDS ORDERED: MAG HYDROX/AL HYDROX/SIMETH -MYLANTA- ORAL SUSPENSION PO PRN (10:10)
[2017-10-13] MEDS ORDERED: ALBUTEROL SO4 0.083% IH SOL 2.5 MG/3 ML VIAL.NEB. NEB PRN (10:10)
[2017-10-13] MEDS ORDERED: methylPREDNISolone NA SUCC 40 MG/1 ML VIAL IVPUSH SCH (10:15)
[2017-10-13] MEDS ORDERED: TIOTROPIUM BROMIDE 18 MCG CAPSULES IH SCH (10:30)
[2017-10-13] MEDS ORDERED: ACETAMINOPHEN 325 MG TABLET (FP) PO PRN (10:45)
--- NOTE | 2017-10-13 10:46 | HP ---
Admitting History and Physical - Admission Chief Complaint: short of breath History of Present Illness: 62 y/o female patient with long standing pulmonary Sarcoidosis, ILD/fibrosis, pulmonary HTN, COPD, and cardiac Sarcoid s/p ICD for VT and syncope several years ago -- steroid dependant ( 30mg/day); on NOAC therapy for LLE DVT diagnosed in 12/2016, Hep C, HTN, DM recent HgA1c 9.9, OSVALDO on bipap nightly and PRN, HLD, Decubiti mostly healed , Hx of MAT and PAT being controlled on cardizem ( avoid long acting 2/2 to hyportension ), chronic diastolic HF, resently admitted with acute on chronic diastolic CHF in setting of interruption of diuretic therapy. Medications resumed and arrangements made for home discharge, Patient was recently d/c -resumed on diuretic tx, today comes to ER with exacerbation of COPD, dHF, ILS, pHTN History Source: Patient, Medical Record Limitations to Obtaining History: Poor Historian - Past Medical History [employer]IN[employer] IN[employer]: Yes: Dementia Cardiovascular: Yes: CHF, Deep Vein Thrombosis, HTN, Hyperlipdemia, Pulmonary Hypertension, Other (pulmonar Sarcoid / ILD / pulmoary fibrosis) Pulmonary: Yes: Asthma, COPD, Previously Intubated, Sleep Apnea, Pulmonary Fibrosis, O2 Dependent, Other Gastrointestinal: Yes: GERD, Other Hepatobiliary: Yes: Hepatitis C Heme/Onc: Yes: Anemia Infectious Disease: Yes: Other Musculoskeletal: Yes: Chronic low back pain Rheumatology: Yes: Sarcoidosis (cardiac and pulmonary) Endocrine: Yes: Diabetes Mellitus - Past Surgical History Past Surgical History: Yes: Laminectomy, AICD, Permanent Pacemaker - Smoking History Smoking history: Never smoked Have you smoked in the past 12 months: No Aproximately how many cigarettes per day: 0 - Alcohol/Substance Use Hx Alcohol Use: No - Social History Usual Living Arrangement: Yes: With Child ADL: Support Services History of Recent Travel: No Home Medications - Allergies Allergies/Adverse Reactions: Allergies Allergy/AdvReac Type Severity Reaction Status Date / Time medroxyprogesterone acetate Allergy Severe stepehns Verified 10/13/17 05:06 [From Depo-Provera] josé syndrome amoxicillin [From Augmentin] Allergy Verified 10/13/17 05:06 amoxicillin trihydrate Allergy Verified 10/13/17 05:06 [From Augmentin] aspirin Allergy Verified 10/13/17 05:06 azithromycin [From Zithromax] Allergy Dewey Verified 10/13/17 05:06 José syndrome bacitracin Allergy Verified 10/13/17 05:06 ciprofloxacin [From Cipro] Allergy Verified 10/13/17 05:06 ciprofloxacin HCl Allergy Verified 10/13/17 05:06 [From Cipro] clavulanic acid Allergy Verified 10/13/17 05:06 [From Augmentin] codeine [Codeine] Allergy Verified 10/13/17 05:06 Iodinated Contrast- Oral and Allergy Verified 10/13/17 05:06 IV Dye [IV Dye, Iodine Containing Contrast ] ketorolac [From Toradol] Allergy Verified 10/13/17 05:06 ketorolac tromethamine Allergy Verified 10/13/17 05:06 [From Toradol] levofloxacin [From Levaquin] Allergy Verified 10/13/17 05:06 metronidazole [From Flagyl] Allergy Verified 10/13/17 05:06 nalbuphine [From Nubain] Allergy Verified 10/13/17 05:06 nalbuphine HCl [From Nubain] Allergy CYANOSIS Verified 10/13/17 05:06 potassium clavulanate Allergy Verified 10/13/17 05:06 [From Augmentin] Shellfish Allergy Verified 10/13/17 05:06 sulfamethoxazole Allergy Verified 10/13/17 05:06 [From Bactrim] trimethoprim [From Bactrim] Allergy Verified 10/13/17 05:06 ivp dye Allergy Severe Swelling Uncoded 09/30/17 09:18 - Home Medications Home Medications: Ambulatory Orders Montelukast Na [Singulair -] 10 mg PO HS 05/02/17 Pregabalin [Lyrica -] 75 mg PO BID 05/02/17 Sennosides [Senna -] 1 tab PO HS 05/02/17 Morphine *Sr* [Ms Contin -] 15 mg PO BID 7 Days #14 tablet.sa MDD 30 05/10/17 Metoclopramide HCl [Reglan] 5 mg PO TID 08/29/17 Nitroglycerin Sublingual [Nitrostat -] 0.4 mg .ROUTE ASDIR PRN 08/29/17 Nystatin Oral Suspension - [Nystatin Oral Susp 809204 Units/5 ML -] 100,000 units PO Q6H 08/29/17 Tiotropium [place] [Spiriva Respimat] 2.5 mcg IH DAILY 08/29/17 Insulin Sliding Scale [Novolog Vial Sliding Scale -] 0 units SQ ACHS 09/06/17 Albuterol 0.083% Nebulizer Gisela [Ventolin 0.083% Nebulizer Soln -] 1 amp NEB Q4H PRN amp 09/22/17 Apixaban [Eliquis -] 2.5 mg PO BID 30 Days #60 tablet 09/22/17 Arformoterol Tartrate [Brovana -] 1 amp NEB RBID 30 Days #60 amp 09/22/17 Diltiazem [Cardizem -] 30 mg PO TID 30 Days #90 tablet 09/22/17 Furosemide [Lasix -] 40 mg PO DAILY 30 Days #30 tablet 09/22/17 Lisinopril [Prinivil] 10 mg PO DAILY 30 Days #30 tablet 09/22/17 Omeprazole 40 mg PO HS 30 Days #30 capsule. 09/22/17 Sodium Chloride Nasal [place] [[place] Nasal [place] -] 2 spray NS BID 30 Days # 1 spray 09/22/17 Insulin (Levemir) [Levemir Vial] 30 units SQ AM units 10/05/17 Insulin (Levemir) [Levemir Vial] 40 units SQ HS units 10/05/17 Insulin Sliding Scale [Novolog Vial Sliding Scale -] 1 vial SQ ACHS units 10/05 Mag Hydrox/Al Hydrox/Simeth [MAALOX *SUSPENSION* -] 30 ml PO Q6H PRN ml Polyethylene Glycol 3350 [Miralax 119 gm Btl -] 17 gm PO BID bottle 10/05/17 predniSONE [Deltasone -] 60 mg PO DAILY tablet 10/05/17 Family Disease History - Family Disease History Family Disease History: Other: Mother (3 CVAs, the first in her 60s) Review of Systems - Review of Systems Constitutional: denies: Chills, Diaphoresis, Fever, Night Sweats Eyes: reports: No Symptoms HENT: reports: No Symptoms Neck: reports: No Symptoms, Decreased ROM Cardiovascular: reports: Shortness of Breath, Other (chest tightness) Respiratory: reports: Cough, Orthopnea, Snoring, SOB, Other (OSVALDO) Gastrointestinal: reports: Abdominal Pain, Indigestion Genitourinary: reports: No Symptoms Breasts: reports: No Symptoms Reported Musculoskeletal: reports: Back Pain, Muscle Weakness Integumentary: reports: No Symptoms Neurological: reports: Pre-Existing Deficit, Unsteady Gait, Weakness (lower extremities) Endocrine: reports: No Symptoms Hematology/Lymphatic: reports: No Symptoms Psychiatric: reports: Depression Physical Examination Vital Signs: Vital Signs Temperature 97.5 F L 10/13/17 08:59 Pulse Rate 113 H 10/13/17 08:59 Respiratory Rate 20 10/13/17 08:59 Blood Pressure 124/89 10/13/17 08:59 O2 Sat by Pulse Oximetry (%) 100 10/13/17 08:58 Constitutional: Yes: Well Nourished, Anxious, Mild Distress, Obese Eyes: Yes: WNL, Conjunctiva Clear HENT: Yes: WNL, Atraumatic, Normocephalic Neck: Yes: WNL, Supple, Trachea Midline Cardiovascular: Yes: Pulse Irregular Respiratory: Yes: On Nasal O2, Poor Air Entry, Rhonchi, Wheezes Gastrointestinal: Yes: Normal Bowel Sounds, Soft ...Rectal Exam: Yes: Deferred Renal/: Yes: WNL Breast(s): Yes: WNL Musculoskeletal: Yes: Muscle Weakness Edema: Yes Edema: LLE: 1+, RLE: 1+ Peripheral Pulses WNL: Yes Integumentary: Yes: WNL Psychiatric: Yes: Alert, Oriented Labs: CBC, BMP 10/13/17 05:15 10/13/17 05:15 Problem List - Problems (1) CHF (congestive heart failure) Code(s): I50.9 - HEART FAILURE, UNSPECIFIED (2) COPD exacerbation Code(s): J44.1 - CHRONIC OBSTRUCTIVE PULMONARY DISEASE W (ACUTE) EXACERBATION (3) SOB (shortness of breath) Code(s): R06.02 - SHORTNESS OF BREATH (4) Abdominal pain Code(s): R10.9 - UNSPECIFIED ABDOMINAL PAIN (5) Acute on chronic respiratory failure with hypoxia and hypercapnia Code(s): J96.21 - ACUTE AND CHRONIC RESPIRATORY FAILURE WITH HYPOXIA; J96.22 - ACUTE AND CHRONIC RESPIRATORY FAILURE WITH HYPERCAPNIA (6) Allergy to multiple antibiotics Code(s): Z88.1 - ALLERGY STATUS TO OTHER ANTIBIOTIC AGENTS STATUS (7) COPD (chronic obstructive pulmonary disease) Code(s): J44.9 - CHRONIC OBSTRUCTIVE PULMONARY DISEASE, UNSPECIFIED (8) COPD exacerbation Code(s): J44.1 - CHRONIC OBSTRUCTIVE PULMONARY DISEASE W (ACUTE) EXACERBATION (9) Cardiac sarcoidosis Code(s): 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 (10) Chronic diastolic CHF (congestive heart failure) Code(s): I50.32 - CHRONIC DIASTOLIC (CONGESTIVE) HEART FAILURE (11) Chronic low back pain Code(s): M54.5 - LOW BACK PAIN; G89.29 - OTHER CHRONIC PAIN (12) DVT (deep venous thrombosis) Code(s): I82.409 - ACUTE EMBOLISM AND THOMBOS UNSP DEEP VN UNSP LOWER EXTREMITY Qualifiers: Laterality: unspecified laterality (13) Diabetes mellitus Code(s): E11.9 - TYPE 2 DIABETES MELLITUS WITHOUT COMPLICATIONS Qualifiers: Diabetes mellitus type: type 2 Diabetes mellitus complication status: without complication (14) Hypoxia Code(s): R09.02 - HYPOXEMIA (15) ICD (implantable cardioverter-defibrillator) in place Code(s): Z95.810 - PRESENCE OF AUTOMATIC (IMPLANTABLE) CARDIAC DEFIBRILLATOR (16) Interstitial lung disease Code(s): J84.9 - INTERSTITIAL PULMONARY DISEASE, UNSPECIFIED (17) Interstitial pulmonary fibrosis Code(s): J84.10 - PULMONARY FIBROSIS, UNSPECIFIED (18) Multifocal atrial tachycardia Code(s): I47.1 - SUPRAVENTRICULAR TACHYCARDIA (19) Obstructive sleep apnea Code(s): G47.33 - OBSTRUCTIVE SLEEP APNEA (ADULT) (PEDIATRIC) (20) Oxygen dependent Code(s): Z99.81 - DEPENDENCE ON SUPPLEMENTAL OXYGEN (21) PHT (pulmonary hypertension) Code(s): I27.20 - PULMONARY HYPERTENSION, UNSPECIFIED (22) Pulmonary sarcoidosis Code(s): D86.0 - SARCOIDOSIS OF LUNG (23) Sarcoid Code(s): D86.9 - SARCOIDOSIS, UNSPECIFIED (24) Ventricular tachycardia Code(s): I47.2 - VENTRICULAR TACHYCARDIA (25) Asthma Code(s): J45.909 - UNSPECIFIED ASTHMA, UNCOMPLICATED (26) Back pain Code(s): M54.9 - DORSALGIA, UNSPECIFIED Qualifiers: Back pain location: low back pain Chronicity: acute Back pain laterality : bilateral Sciatica presence: without sciatica Qualified Code(s): M54.5 - Low back pain (27) Diastolic CHF Code(s): I50.30 - UNSPECIFIED DIASTOLIC (CONGESTIVE) HEART FAILURE
[2017-10-13] MEDS: APIXABAN 2.5 MG TABLET PO SCH ×2 (11:22→21:43)
[2017-10-13] MEDS: LISINOPRIL 10 MG TABLET (FP) PO SCH (11:22)
[2017-10-13] MEDS: POLYETHYLENE GLYCOL 3350 119 GM BTL PO SCH ×2 (11:22→21:44)
[2017-10-13] MEDS: morphine SO4 SUSTAINED ACTING 15 MG TABLET.SA PO SCH ×2 (11:22→21:42)
[2017-10-13] MEDS: PREGABALIN 75 MG CAPSULE PO SCH ×2 (11:23→21:44)
[2017-10-13] MEDS: methylPREDNISolone NA SUCC 125 MG/2 ML VIAL IVPUSH SCH ×2 (11:25→16:59)
[2017-10-13] MEDS ORDERED: dilTIAZem HCL 30 MG TABLET (FP) PO SCH ×2 (11:30→14:00)
[2017-10-13] MEDS: INSULIN SLIDING SCALE (NOVOLOG) 1 VIAL SQ SCH ×3 (11:49→22:56)
[2017-10-13] MEDS: ALBUTEROL SO4 2.5/IPRATROPIUM 0.5 INH SOL 3 ML VIAL.NEB. NEB SCH ×3 (12:35→20:38)
[2017-10-13] MEDS: FUROSEMIDE 40 MG/4 ML INJECTABLE VIAL IVPUSH SCH (13:30)
[2017-10-13] MEDS: METOCLOPRAMIDE HCL 10 MG TABLET (FP) PO SCH ×2 (13:30→21:42)
[2017-10-13] MEDS: dilTIAZem HCL 30 MG TABLET (FP) PO SCH ×2 (13:31→21:43)
[2017-10-13 14:01] LABS: ACANTHOCYTES 1+; ANISOCYTOSIS 3+; MACROCYTOSIS 0; PLATELET ESTIMATE NORMAL
--- NOTE | 2017-10-13 15:49 | EKG ---
Test Reason : Blood Pressure : / mmHG Vent. Rate : 148 BPM Atrial Rate : 148 BPM P-R Int : 126 ms QRS Dur : 068 ms QT Int : 286 ms P-R-T Axes : 014 -03 046 degrees QTc Int : 449 ms SINUS TACHYCARDIA WITH OCCASIONAL PREMATURE VENTRICULAR COMPLEXES OTHERWISE NORMAL ECG WHEN COMPARED WITH ECG OF 13-OCT-2017 05:13, PREMATURE VENTRICULAR COMPLEXES ARE NOW PRESENT PREMATURE ATRIAL COMPLEXES ARE NO LONGER PRESENT Confirmed by EDILBERTO SAAB, ANILA ([id number]) on 10/13/2017 3:49:20 PM Referred By: Ryan RAMIRES Confirmed By:ANILA CASANOVA MD
[2017-10-13] MEDS: ARFORMOTEROL TARTRATE 15 MCG/2 ML VIAL NEB SCH (20:46)
[2017-10-13] MEDS: MONTELUKAST NA 10 MG TABLET PO SCH (21:42)
[2017-10-13] MEDS: SENNOSIDES 8.6MG TABLET (FP) PO SCH (21:42)
[2017-10-13] MEDS: SODIUM CHLORIDE NASAL SPRAY 44 ML BOTTLE NS SCH (21:44)
[2017-10-13] MEDS: INSULIN (LEVEMIR) 100 UNITS/ML UNITS SQ SCH (22:55)
[2017-10-14] MEDS ORDERED: FUROSEMIDE 40 MG/4 ML INJECTABLE VIAL IVPUSH ONE (00:19)
[2017-10-14 00:30] LABS: ARTERIAL BLD GAS O2 SATURATION 54.5 % (90-98.9); ARTERIAL BLOOD GAS BASE EXCESS 9.9 meq/l (-2-2); ARTERIAL BLOOD GAS PO2 32.6 mmHg (80-100); ARTERIAL BLOOD GAS pH 7.38 (7.35-7.45)
[2017-10-14 00:31] LABS: ALLENS TEST POSITIVE; ARTERIAL BLOOD GAS PCO2 62.3 mmHg (35-45)
[2017-10-14 00:43] LABS: BASO % 0.1 % (0-2.0); HEMOGLOBIN 9.4 GM/dL (10.7-15.3); LYMPH % 3.3 % (8-40); MCH 26.9 pg (25.7-33.7); MCHC 31.2 g/dl (32.0-36.0); MEAN CELL VOLUME 86.2 fl (80-96); MEAN PLT VOLUME 7.7 fl (7.5-11.1); MONO % 0.4 % (3.8-10.2); NEUT % 96.2 % (42.8-82.8); PLATELET COUNT 312 K/MM3 (134-434); RBC 3.48 M/mm3 (3.60-5.2); RDW 17.2 % (11.6-15.6); WHITE BLOOD COUNT 12.4 K/mm3 (4.0-10.0)
[2017-10-14 01:09] LABS: ANION GAP 11 (8-16); BLOOD UREA NITROGEN 25 mg/dL (7-18); CALCIUM 8.3 mg/dL (8.5-10.1); CHLORIDE 91 mmol/L (98-107); CO2 35 mmol/L (21-32); MAGNESIUM 1.5 mg/dL (1.8-2.4); PHOSPHOROUS 3.8 mg/dL (2.5-4.9); POTASSIUM 4.5 mmol/L (3.5-5.1); SODIUM 137 mmol/L (136-145)
[2017-10-14 01:11] LABS: GLUCOSE,RANDOM 425 mg/dL (74-106)
[2017-10-14] MEDS ORDERED: INSULIN (NOVOLOG) ASPART 100 UNITS/ML 10ML VIAL ONE (01:21)
[2017-10-14] MEDS: methylPREDNISolone NA SUCC 125 MG/2 ML VIAL IVPUSH SCH ×3 (01:23→17:12)
[2017-10-14] MEDS: INSULIN SLIDING SCALE (NOVOLOG) 1 VIAL SQ SCH ×5 (01:30→21:38)
--- NOTE | 2017-10-14 03:41 | RAPID ---
Physical Examination Vital Signs: Vital Signs Temperature 98.5 F 10/13/17 22:00 Pulse Rate 92 H 10/14/17 00:10 Respiratory Rate 25 H 10/14/17 00:10 Blood Pressure 132/82 10/14/17 00:10 O2 Sat by Pulse Oximetry (%) 97 10/14/17 02:10 Labs: CBC, BMP 10/14/17 00:30 10/14/17 00:30 Rapid Response - Rapid Response Assessment: Rapid response was called overhead at 12:03am because pt was unresponsive for a period of 3 min. and nurse thought pt was having a seizure. On arriving in the room pt was alert and oriented in respiratory distress, w/ slight tachycardia and normotensive. BGM was 445. PE was significant for diffuse wheezing in the lungs and crackles. Labs were ordered (CBC, CMP, Mag, phosph, ABG, lactate) EKG showed no ST changes. CXR ordered later reviewed showed worsening congestion, questionable L pleural effusion. pt was given lasix IVP 60mg. Cronin drained 400cc in the first hour. Pt was given duonebs, ventolin, solumedrol, and was placed back opn BIPAP. Duonebs were increased for the next 24hrs
[2017-10-14] MEDS ORDERED: MAG HYDROX/AL HYDROX/SIMETH 30 ML UNIT-DOSE CUP PO PRN (04:05)
[2017-10-14] MEDS: FUROSEMIDE 40 MG/4 ML INJECTABLE VIAL IVPUSH SCH (05:15)
[2017-10-14] MEDS: METOCLOPRAMIDE HCL 10 MG TABLET (FP) PO SCH ×3 (05:15→21:40)
[2017-10-14] MEDS: dilTIAZem HCL 30 MG TABLET (FP) PO SCH ×3 (05:15→21:40)
[2017-10-14 06:35] LABS: BASO % 0.3 % (0-2.0); HEMATOCRIT 29.8 % (32.4-45.2); HEMOGLOBIN 9.4 GM/dL (10.7-15.3); MCH 27.1 pg (25.7-33.7); MCHC 31.7 g/dl (32.0-36.0); MEAN CELL VOLUME 85.5 fl (80-96); MEAN PLT VOLUME 7.6 fl (7.5-11.1); MONO % 0.8 % (3.8-10.2); NEUT % 90.9 % (42.8-82.8); PLATELET COUNT 311 K/MM3 (134-434); RBC 3.49 M/mm3 (3.60-5.2); RDW 17.1 % (11.6-15.6); WHITE BLOOD COUNT 13.7 K/mm3 (4.0-10.0)
[2017-10-14] MEDS: INSULIN (LEVEMIR) 100 UNITS/ML UNITS SQ SCH ×2 (06:50→21:39)
[2017-10-14 06:52] LABS: CHLORIDE 91 mmol/L (98-107); SODIUM 138 mmol/L (136-145)
[2017-10-14 06:59] LABS: ALBUMIN 2.5 g/dl (3.4-5.0); ALK PHOS 108 U/L (45-117); ANION GAP 9 (8-16); BILIRUBIN,TOTAL 0.3 mg/dL (0.2-1.0); BLOOD UREA NITROGEN 25 mg/dL (7-18); CALCIUM 8.7 mg/dL (8.5-10.1); CO2 38 mmol/L (21-32); CREATININE 0.8 mg/dL (0.55-1.02); GLUCOSE,RANDOM 254 mg/dL (74-106); PHOSPHOROUS 3.7 mg/dL (2.5-4.9); SGPT/ALT 27 U/L (12-78)
[2017-10-14 07:23] LABS: MAGNESIUM 1.8 mg/dL (1.8-2.4); POTASSIUM 4.7 mmol/L (3.5-5.1); SGOT/AST 22 U/L (15-37)
[2017-10-14] MEDS: ARFORMOTEROL TARTRATE 15 MCG/2 ML VIAL NEB SCH ×2 (07:52→20:29)
[2017-10-14] MEDS: ALBUTEROL SO4 2.5/IPRATROPIUM 0.5 INH SOL 3 ML VIAL.NEB. NEB SCH ×4 (07:53→20:38)
--- NOTE | 2017-10-14 08:06 | PN ---
Progress Note, Physician Chief Complaint: Notes and events reviewed D/W RN Suspected seizure yesterday TELE: shows NSR, APCs- short self limited ATACH, chronic - Current Medication List Current Medications: Active Medications Acetaminophen (Tylenol -) 650 mg PO Q4H PRN PRN Reason: PAIN LEVEL 1-5 Al Hydroxide/Mg Hydroxide (Mylanta Oral Suspension -) 30 ml PO Q6H PRN PRN Reason: INDIGESTION Last Admin: 10/14/17 05:14 Dose: 30 ml Albuterol Sulfate (Ventolin 0.083% Nebulizer Soln -) 1 amp NEB Q4H PRN PRN Reason: SHORT OF BREATH/WHEEZING Albuterol/Ipratropium (Duoneb -) 1 amp NEB RQID [facility] Last Admin: 10/14/17 07:53 Dose: Not Given Apixaban (Eliquis -) 2.5 mg PO BID [facility] Last Admin: 10/13/17 21:43 Dose: 2.5 mg Arformoterol Tartrate (Brovana (Restricted To Pulmonology/Resp) -) 1 amp NEB RBID [facility] Last Admin: 10/14/17 07:52 Dose: 1 amp Diltiazem HCl (Cardizem -) 30 mg PO TID [facility] Last Admin: 10/14/17 05:15 Dose: 30 mg Furosemide (Lasix Injection -) 40 mg IVPUSH BID@0600,1400 [facility] Last Admin: 10/14/17 05:15 Dose: 40 mg Insulin Aspart (Novolog Vial Sliding Scale -) 1 vial SQ [facility]; Protocol Last Admin: 10/14/17 06:51 Dose: 6 units Insulin Detemir (Levemir Vial) 30 units SQ AM [facility] Last Admin: 10/14/17 06:50 Dose: 30 units Insulin Detemir (Levemir Vial) 40 units SQ HS [facility] Last Admin: 10/13/17 22:55 Dose: 40 units Lisinopril (Prinivil) 10 mg PO DAILY [facility] Last Admin: 10/13/17 11:22 Dose: 10 mg Methylprednisolone Sodium Succinate (Solu-Medrol -) 60 mg IVPUSH Q8H-IV [facility] Last Admin: 10/14/17 01:23 Dose: 60 mg Metoclopramide HCl (Reglan -) 5 mg PO TID [facility] Last Admin: 10/14/17 05:15 Dose: 5 mg Montelukast Sodium (Singulair -) 10 mg PO HS [facility] Last Admin: 10/13/17 21:42 Dose: 10 mg Morphine Sulfate (Ms Contin -) 15 mg PO BID [facility] Last Admin: 10/13/17 21:42 Dose: 15 mg Nitroglycerin (Nitrostat -) 0.4 mg SL ASDIR PRN PRN Reason: chest pain Polyethylene Glycol (Miralax (For Daily Use) -) 17 gm PO BID [facility] Last Admin: 10/13/17 21:44 Dose: Not Given Pregabalin (Lyrica -) 75 mg PO BID [facility] Last Admin: 10/13/17 21:44 Dose: 75 mg Senna (Senna -) 1 tab PO HS [facility] Last Admin: 10/13/17 21:42 Dose: 1 tab Sodium Chloride ([place] Nasal [place] -) 2 spray NS BID [facility] Last Admin: 10/13/17 21:44 Dose: 2 spray Tiotropium [place] (Spiriva -) 1 puff IH DAILY [facility] - Objective Vital Signs: Vital Signs Temperature 98.3 F 10/14/17 07:44 Pulse Rate 104 H 10/14/17 07:44 Respiratory Rate 17 10/14/17 07:49 Blood Pressure 114/62 10/14/17 07:44 O2 Sat by Pulse Oximetry (%) 98 10/14/17 07:52 Constitutional: Yes: Calm Cardiovascular: Yes: Regular Rate and Rhythm Respiratory: Yes: Other (b/l "dry" rales) Gastrointestinal: Yes: Soft, Abdomen, Obese Edema: No Neurological: Yes: Alert Labs: CBC, BMP 10/14/17 05:30 10/14/17 05:30 INR, PTT INR 1.32 (0.82-1.09) H 10/13/17 05:15 - ....Imaging EKG: Image Reviewed Assessment/Plan Assessment/Plan Cardiac sarcoid, pulmonary sarcoid H/o ICD for syncope, VT, MRI + sarcoid DVT --On Eliquis Chronic diastolic CHF Multifocal atrial tachycardia and Paroxysmal A-Tach anemia Frequent admissions for decompensated diastolic CHF or bronchospasm/Sarcoid exacerbations. Requires steroid tapers intermittently. Now with ?seizure REC: On exam appears relatively euvolemic and BNP is normal. Suspect this is due to ILD/Fibrosis secondary Sarcoid. Will decrease Lasix. Neuro eval as per PMD; should have head CT- will order. Cont. Angel @ [facility] recommended dose.
[2017-10-14] MEDS ORDERED: PT OWN MED DRAWER 7, Y5N ONE (08:15)
[2017-10-14] MEDS: LISINOPRIL 10 MG TABLET (FP) PO SCH (09:20)
[2017-10-14] MEDS: TIOTROPIUM BROMIDE 18 MCG CAPSULES IH SCH (09:20)
[2017-10-14] MEDS: morphine SO4 SUSTAINED ACTING 15 MG TABLET.SA PO SCH ×2 (09:20→21:40)
[2017-10-14] MEDS: SODIUM CHLORIDE NASAL SPRAY 44 ML BOTTLE NS SCH ×2 (09:20→21:40)
[2017-10-14] MEDS: POLYETHYLENE GLYCOL 3350 119 GM BTL PO SCH ×2 (09:21→21:48)
[2017-10-14] MEDS: PREGABALIN 75 MG CAPSULE PO SCH ×2 (09:21→21:40)
[2017-10-14] MEDS: APIXABAN 2.5 MG TABLET PO SCH ×2 (09:22→21:41)
--- NOTE | 2017-10-14 11:28 | EKG ---
Test Reason : Blood Pressure : / mmHG Vent. Rate : 120 BPM Atrial Rate : 120 BPM P-R Int : 136 ms QRS Dur : 068 ms QT Int : 320 ms P-R-T Axes : 027 -14 033 degrees QTc Int : 452 ms SINUS TACHYCARDIA WITH PREMATURE VENTRICULAR COMPLEXES OR FUSION COMPLEXES OTHERWISE NORMAL ECG WHEN COMPARED WITH ECG OF 13-OCT-2017 11:32, FUSION COMPLEXES ARE NOW PRESENT Confirmed by PAT SAAB, PAPO ([id number]) on 10/14/2017 11:27:49 AM Referred By: Confirmed By:PAPO STEWART MD
--- NOTE | 2017-10-14 12:34 | PN ---
Progress Note (short form) - Note Progress Note: PULMONARY Events overnight noted. States breathing better now. Blood glucose high. Vital Signs Period Temp Pulse Resp BP Sys/[place] Pulse Ox Last 24 Hr 97.5 F-99.4 F 89-115 17-25 102-132/57-83 94-100 Intake & Output 10/11/17 10/12/17 10/13/17 10/14/17 23:59 23:59 23:59 23:59 Intake Total 650 510 Output Total 3450 710 Balance -2800 -200 Weight 72.575 kg Gen: mildly tachypneic at rest Heart: RRR Lung: bilateral rales/rhonchi Abd: soft, nontender Ext: + edema CBC, BMP 10/14/17 05:30 Active Medications Acetaminophen (Tylenol -) 650 mg PO Q4H PRN PRN Reason: PAIN LEVEL 1-5 Al Hydroxide/Mg Hydroxide (Mylanta Oral Suspension -) 30 ml PO Q6H PRN PRN Reason: INDIGESTION Last Admin: 10/14/17 05:14 Dose: 30 ml Albuterol Sulfate (Ventolin 0.083% Nebulizer Soln -) 1 amp NEB Q4H PRN PRN Reason: SHORT OF BREATH/WHEEZING Albuterol/Ipratropium (Duoneb -) 1 amp NEB RQID [facility] Last Admin: 10/14/17 11:27 Dose: Not Given Apixaban (Eliquis -) 2.5 mg PO BID [facility] Last Admin: 10/14/17 09:22 Dose: 2.5 mg Arformoterol Tartrate (Brovana (Restricted To Pulmonology/Resp) -) 1 amp NEB RBID [facility] Last Admin: 10/14/17 07:52 Dose: 1 amp Diltiazem HCl (Cardizem -) 30 mg PO TID [facility] Last Admin: 10/14/17 05:15 Dose: 30 mg Furosemide (Lasix -) 60 mg PO DAILY [facility] Insulin Aspart (Novolog Vial Sliding Scale -) 1 vial SQ ACHS [facility]; Protocol Last Admin: 10/14/17 11:32 Dose: 14 units Insulin Detemir (Levemir Vial) 30 units SQ AM [facility] Last Admin: 10/14/17 06:50 Dose: 30 units Insulin Detemir (Levemir Vial) 40 units SQ HS [facility] Last Admin: 10/13/17 22:55 Dose: 40 units Lisinopril (Prinivil) 10 mg PO DAILY [facility] Last Admin: 10/14/17 09:20 Dose: 10 mg Methylprednisolone Sodium Succinate (Solu-Medrol -) 60 mg IVPUSH Q8H-IV [facility] Last Admin: 10/14/17 09:18 Dose: 60 mg Metoclopramide HCl (Reglan -) 5 mg PO TID [facility] Last Admin: 10/14/17 05:15 Dose: 5 mg Montelukast Sodium (Singulair -) 10 mg PO HS [facility] Last Admin: 10/13/17 21:42 Dose: 10 mg Morphine Sulfate (Ms Contin -) 15 mg PO BID [facility] Last Admin: 10/14/17 09:20 Dose: 15 mg Nitroglycerin (Nitrostat -) 0.4 mg SL ASDIR PRN PRN Reason: chest pain Polyethylene Glycol (Miralax (For Daily Use) -) 17 gm PO BID [facility] Last Admin: 10/14/17 09:21 Dose: 17 grams Pregabalin (Lyrica -) 75 mg PO BID [facility] Last Admin: 10/14/17 09:21 Dose: 75 mg Senna (Senna -) 1 tab PO [facility] Last Admin: 10/13/17 21:42 Dose: 1 tab Sodium Chloride ([place] Nasal [place] -) 2 spray NS BID [facility] Last Admin: 10/14/17 09:20 Dose: 2 spray Tiotropium [place] (Spiriva -) 1 puff IH DAILY [facility] Last Admin: 10/14/17 09:20 Dose: 1 puff A/P Acute on Chronic Hypoxic Respiratory Failure Advanced Pulmonary Sarcoidosis COPD OSVALDO Acute on Chronic Diastolic Heart Failure Pulmonary HTN h/o DVT - will decrease medrol to 40mg q8h - inhaled bronchodilators - O2 to keep Spo2 >90% - lasix - monitor urine output, creatinine - BiPAP at night and PRN during day - continue anticoagulation
--- NOTE | 2017-10-14 14:39 | PN ---
Progress Note (short form) - Note Progress Note: 62 y/o female found after doing CT scan. States that she feels alright. Alert and oriented x 3. O2 [address]. Denies pain. Vital Signs Period Temp Pulse Resp BP Sys/[place] Pulse Ox Last 24 Hr 97.5 F-99.4 F 89-112 17-25 102-132/57-83 94-100 CBC, BMP 10/14/17 05:30 10/14/17 12:00 HEENT- normocephalic Lungs- wheezing upper lobes Heart- S1/S2 Abd- Pos BS x 4, soft, NT Ext- No LE edema Active Medications Acetaminophen (Tylenol -) 650 mg PO Q4H PRN PRN Reason: PAIN LEVEL 1-5 Al Hydroxide/Mg Hydroxide (Mylanta Oral Suspension -) 30 ml PO Q6H PRN PRN Reason: INDIGESTION Last Admin: 10/14/17 05:14 Dose: 30 ml Albuterol Sulfate (Ventolin 0.083% Nebulizer Soln -) 1 amp NEB Q4H PRN PRN Reason: SHORT OF BREATH/WHEEZING Albuterol/Ipratropium (Duoneb -) 1 amp NEB RQID [facility] Last Admin: 10/14/17 11:27 Dose: Not Given Apixaban (Eliquis -) 2.5 mg PO BID [facility] Last Admin: 10/14/17 09:22 Dose: 2.5 mg Arformoterol Tartrate (Brovana (Restricted To Pulmonology/Resp) -) 1 amp NEB RBID [facility] Last Admin: 10/14/17 07:52 Dose: 1 amp Diltiazem HCl (Cardizem -) 30 mg PO TID [facility] Last Admin: 10/14/17 13:58 Dose: 30 mg Furosemide (Lasix -) 60 mg PO DAILY [facility] Insulin Aspart (Novolog Vial Sliding Scale -) 1 vial SQ ACHS [facility]; Protocol Last Admin: 10/14/17 11:32 Dose: 14 units Insulin Detemir (Levemir Vial) 30 units SQ AM [facility] Last Admin: 10/14/17 06:50 Dose: 30 units Insulin Detemir (Levemir Vial) 40 units SQ HS [facility] Last Admin: 10/13/17 22:55 Dose: 40 units Lisinopril (Prinivil) 10 mg PO DAILY [facility] Last Admin: 10/14/17 09:20 Dose: 10 mg Methylprednisolone Sodium Succinate (Solu-Medrol -) 40 mg IVPUSH Q8H-IV E[facility] Metoclopramide HCl (Reglan -) 5 mg PO TID [facility] Last Admin: 10/14/17 13:57 Dose: 5 mg Montelukast Sodium (Singulair -) 10 mg PO HS [facility] Last Admin: 10/13/17 21:42 Dose: 10 mg Morphine Sulfate (Ms Contin -) 15 mg PO BID [facility] Last Admin: 10/14/17 09:20 Dose: 15 mg Nitroglycerin (Nitrostat -) 0.4 mg SL ASDIR PRN PRN Reason: chest pain Polyethylene Glycol (Miralax (For Daily Use) -) 17 gm PO BID [facility] Last Admin: 10/14/17 09:21 Dose: 17 grams Pregabalin (Lyrica -) 75 mg PO BID [facility] Last Admin: 10/14/17 09:21 Dose: 75 mg Senna (Senna -) 1 tab PO HS [facility] Last Admin: 10/13/17 21:42 Dose: 1 tab Sodium Chloride ([place] Nasal [place] -) 2 spray NS BID [facility] Last Admin: 10/14/17 09:20 Dose: 2 spray Tiotropium [place] (Spiriva -) 1 puff IH DAILY [facility] Last Admin: 10/14/17 09:20 Dose: 1 puff Problem List - Problems (1) CHF (congestive heart failure) Code(s): I50.9 - HEART FAILURE, UNSPECIFIED (2) COPD exacerbation Code(s): J44.1 - CHRONIC OBSTRUCTIVE PULMONARY DISEASE W (ACUTE) EXACERBATION (3) SOB (shortness of breath) Code(s): R06.02 - SHORTNESS OF BREATH (4) Abdominal pain Code(s): R10.9 - UNSPECIFIED ABDOMINAL PAIN (5) Acute on chronic respiratory failure with hypoxia and hypercapnia Code(s): J96.21 - ACUTE AND CHRONIC RESPIRATORY FAILURE WITH HYPOXIA; J96.22 - ACUTE AND CHRONIC RESPIRATORY FAILURE WITH HYPERCAPNIA (6) Allergy to multiple antibiotics Code(s): Z88.1 - ALLERGY STATUS TO OTHER ANTIBIOTIC AGENTS STATUS (7) COPD (chronic obstructive pulmonary disease) Code(s): J44.9 - CHRONIC OBSTRUCTIVE PULMONARY DISEASE, UNSPECIFIED (8) COPD exacerbation Code(s): J44.1 - CHRONIC OBSTRUCTIVE PULMONARY DISEASE W (ACUTE) EXACERBATION (9) Cardiac sarcoidosis Code(s): 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 (10) Chronic diastolic CHF (congestive heart failure) Code(s): I50.32 - CHRONIC DIASTOLIC (CONGESTIVE) HEART FAILURE (11) Chronic low back pain Code(s): M54.5 - LOW BACK PAIN; G89.29 - OTHER CHRONIC PAIN (12) DVT (deep venous thrombosis) Code(s): I82.409 - ACUTE EMBOLISM AND THOMBOS UNSP DEEP VN UNSP LOWER EXTREMITY Qualifiers: Laterality: unspecified laterality (13) Diabetes mellitus Code(s): E11.9 - TYPE 2 DIABETES MELLITUS WITHOUT COMPLICATIONS Qualifiers: Diabetes mellitus type: type 2 Diabetes mellitus complication status: without complication (14) Hypoxia Code(s): R09.02 - HYPOXEMIA (15) ICD (implantable cardioverter-defibrillator) in place Code(s): Z95.810 - PRESENCE OF AUTOMATIC (IMPLANTABLE) CARDIAC DEFIBRILLATOR (16) Interstitial lung disease Code(s): J84.9 - INTERSTITIAL PULMONARY DISEASE, UNSPECIFIED (17) Interstitial pulmonary fibrosis Code(s): J84.10 - PULMONARY FIBROSIS, UNSPECIFIED (18) Multifocal atrial tachycardia Code(s): I47.1 - SUPRAVENTRICULAR TACHYCARDIA (19) Obstructive sleep apnea Code(s): G47.33 - OBSTRUCTIVE SLEEP APNEA (ADULT) (PEDIATRIC) (20) Oxygen dependent Code(s): Z99.81 - DEPENDENCE ON SUPPLEMENTAL OXYGEN (21) PHT (pulmonary hypertension) Code(s): I27.20 - PULMONARY HYPERTENSION, UNSPECIFIED (22) Pulmonary sarcoidosis Code(s): D86.0 - SARCOIDOSIS OF LUNG (23) Sarcoid Code(s): D86.9 - SARCOIDOSIS, UNSPECIFIED (24) Ventricular tachycardia Code(s): I47.2 - VENTRICULAR TACHYCARDIA (25) Asthma Code(s): J45.909 - UNSPECIFIED ASTHMA, UNCOMPLICATED (26) Back pain Code(s): M54.9 - DORSALGIA, UNSPECIFIED Qualifiers: Back pain location: low back pain Chronicity: acute Back pain laterality : bilateral Sciatica presence: without sciatica Qualified Code(s): M54.5 - Low back pain (27) Diastolic CHF Code(s): I50.30 - UNSPECIFIED DIASTOLIC (CONGESTIVE) HEART FAILURE Problem List - Problems (1) CHF (congestive heart failure) Code(s): I50.9 - HEART FAILURE, UNSPECIFIED (2) COPD exacerbation Code(s): J44.1 - CHRONIC OBSTRUCTIVE PULMONARY DISEASE W (ACUTE) EXACERBATION (3) SOB (shortness of breath) Code(s): R06.02 - SHORTNESS OF BREATH (4) Abdominal pain Code(s): R10.9 - UNSPECIFIED ABDOMINAL PAIN (5) Acute on chronic respiratory failure with hypoxia and hypercapnia Code(s): J96.21 - ACUTE AND CHRONIC RESPIRATORY FAILURE WITH HYPOXIA; J96.22 - ACUTE AND CHRONIC RESPIRATORY FAILURE WITH HYPERCAPNIA (6) Allergy to multiple antibiotics Code(s): Z88.1 - ALLERGY STATUS TO OTHER ANTIBIOTIC AGENTS STATUS (7) COPD (chronic obstructive pulmonary disease) Code(s): J44.9 - CHRONIC OBSTRUCTIVE PULMONARY DISEASE, UNSPECIFIED (8) COPD exacerbation Code(s): J44.1 - CHRONIC OBSTRUCTIVE PULMONARY DISEASE W (ACUTE) EXACERBATION (9) Cardiac sarcoidosis Code(s): 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 (10) Chronic diastolic CHF (congestive heart failure) Code(s): I50.32 - CHRONIC DIASTOLIC (CONGESTIVE) HEART FAILURE (11) Chronic low back pain Code(s): M54.5 - LOW BACK PAIN; G89.29 - OTHER CHRONIC PAIN (12) DVT (deep venous thrombosis) Code(s): I82.409 - ACUTE EMBOLISM AND THOMBOS UNSP DEEP VN UNSP LOWER EXTREMITY Qualifiers: Laterality: unspecified laterality (13) Diabetes mellitus Code(s): E11.9 - TYPE 2 DIABETES MELLITUS WITHOUT COMPLICATIONS Qualifiers: Diabetes mellitus type: type 2 Diabetes mellitus complication status: without complication (14) Hypoxia Code(s): R09.02 - HYPOXEMIA (15) ICD (implantable cardioverter-defibrillator) in place Code(s): Z95.810 - PRESENCE OF AUTOMATIC (IMPLANTABLE) CARDIAC DEFIBRILLATOR (16) Interstitial lung disease Code(s): J84.9 - INTERSTITIAL PULMONARY DISEASE, UNSPECIFIED (17) Interstitial pulmonary fibrosis Code(s): J84.10 - PULMONARY FIBROSIS, UNSPECIFIED (18) Multifocal atrial tachycardia Code(s): I47.1 - SUPRAVENTRICULAR TACHYCARDIA (19) Obstructive sleep apnea Code(s): G47.33 - OBSTRUCTIVE SLEEP APNEA (ADULT) (PEDIATRIC) (20) Oxygen dependent Code(s): Z99.81 - DEPENDENCE ON SUPPLEMENTAL OXYGEN (21) PHT (pulmonary hypertension) Code(s): I27.20 - PULMONARY HYPERTENSION, UNSPECIFIED (22) Pulmonary sarcoidosis Code(s): D86.0 - SARCOIDOSIS OF LUNG (23) Sarcoid Code(s): D86.9 - SARCOIDOSIS, UNSPECIFIED (24) Ventricular tachycardia Code(s): I47.2 - VENTRICULAR TACHYCARDIA (25) Asthma Code(s): J45.909 - UNSPECIFIED ASTHMA, UNCOMPLICATED (26) Back pain Code(s): M54.9 - DORSALGIA, UNSPECIFIED Qualifiers: Back pain location: low back pain Chronicity: acute Back pain laterality : bilateral Sciatica presence: without sciatica Qualified Code(s): M54.5 - Low back pain (27) Diastolic CHF Code(s): I50.30 - UNSPECIFIED DIASTOLIC (CONGESTIVE) HEART FAILURE
--- NOTE | 2017-10-14 15:39 | RAPID ---
Physical Examination Vital Signs: Vital Signs BP: 129/79; O2 :100% on NC 4L; HR: 95; RR: 16 Constitutional: Yes: Moderate Distress Eyes: No: EOM Intact (Unable to move her eyes to the left on command or spontaenneosly. Denied being la to view the lower field.) Cardiovascular: Yes: Tachycardia Respiratory: Yes: On Nasal O2, Other (crackles and coarse breath sounds on the left) Gastrointestinal: Yes: Soft. No: Tenderness Extremities: Yes: Other (positive for tremors b/l upper extremities) Edema: No Peripheral Pulses WNL: Yes Peripheral Pulses: Right Radial: 2+, Left Doralis Pedis: 1+, Right Dorsalis Pedis: 1+ Neurological: No: Facial Droop Labs: CBC, BMP 10/14/17 05:30 10/14/17 12:00 Rapid Response - Rapid Response Assessment: 62 y.o F w/ Hx. of Sarcoidosis was admitted for CHF. Rapid response called for Patient having b/l tremors. altered mental status. Pt was alert throughout the episode. Pt. responded to verbal and tactile stimuli appropriately after tremors ceased. BGM was 209. Pt. back to neuro baseline. Head CT and labs from prior episode at 03:30 AM w/o acute pathology. Recommendations/Interventions: Discussed with ELECTRON[employer]ARFARE LINGUIST covering for Dr. Lehman, recommended to place neurology consult as this is second episode of AMS/tremors in the last tremors. concern if for partial seizures vs anxiety. Pt would benefit from neurology consult for further evaluation. Time PMD Notified: 03:30
--- NOTE | 2017-10-14 17:20 | CON.NEURO ---
Consult - History of Present Illness History of Present Illness: 62 y/o female patient with long standing pulmonary Sarcoidosis, ILD/fibrosis, pulmonary HTN, COPD, and cardiac Sarcoid s/p ICD for VT and syncope several years ago -- steroid dependant ( 30mg/day); on NOAC therapy for LLE DVT diagnosed in 12/2016, Hep C, HTN, DM recent HgA1c 9.9, OSVALDO on bipap nightly and PRN, HLD, Decubiti mostly healed , Hx of MAT and PAT, chronic diastolic HF, resently admitted with acute on chronic diastolic CHF, now with progressive respiratory issues; today called Rapid response for altered mental state and respiratory distress, ? LOC/Sz event. ? remote hx of LOC event few years back , 2011; was started on AED at that time, and then subsequently Dc after one yr; hx of diplopia, Sarcoid being managed by PULM. no clear HX of neuro sarcoid documented as per her. 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 Spinal cord stimulator. Multiple drug allergies. History of Ferrer José syndrome - Past Surgical History Past Surgical History: Yes: Laminectomy, AICD, Permanent Pacemaker - Alcohol/Substance Use Hx Alcohol Use: No - Smoking History Smoking history: Never smoked Have you smoked in the past 12 months: No Aproximately how many cigarettes per day: 0 - Social History ADL: Support Services History of Recent Travel: No Home Medications - Allergies Allergies/Adverse Reactions: Allergies Allergy/AdvReac Type Severity Reaction Status Date / Time medroxyprogesterone acetate Allergy Severe stepehns Verified 10/13/17 05:06 [From Depo-Provera] josé syndrome amoxicillin [From Augmentin] Allergy Verified 10/13/17 05:06 amoxicillin trihydrate Allergy Verified 10/13/17 05:06 [From Augmentin] aspirin Allergy Verified 10/13/17 05:06 azithromycin [From Zithromax] Allergy Dewey Verified 10/13/17 05:06 José syndrome bacitracin Allergy Verified 10/13/17 05:06 ciprofloxacin [From Cipro] Allergy Verified 10/13/17 05:06 ciprofloxacin HCl Allergy Verified 10/13/17 05:06 [From Cipro] clavulanic acid Allergy Verified 10/13/17 05:06 [From Augmentin] codeine [Codeine] Allergy Verified 10/13/17 05:06 Iodinated Contrast- Oral and Allergy Verified 10/13/17 05:06 IV Dye [IV Dye, Iodine Containing Contrast ] ketorolac [From Toradol] Allergy Verified 10/13/17 05:06 ketorolac tromethamine Allergy Verified 10/13/17 05:06 [From Toradol] levofloxacin [From Levaquin] Allergy Verified 10/13/17 05:06 metronidazole [From Flagyl] Allergy Verified 10/13/17 05:06 nalbuphine [From Nubain] Allergy Verified 10/13/17 05:06 nalbuphine HCl [From Nubain] Allergy CYANOSIS Verified 10/13/17 05:06 potassium clavulanate Allergy Verified 10/13/17 05:06 [From Augmentin] Shellfish Allergy Verified 10/13/17 05:06 sulfamethoxazole Allergy Verified 10/13/17 05:06 [From Bactrim] trimethoprim [From Bactrim] Allergy Verified 10/13/17 05:06 ivp dye Allergy Severe Swelling Uncoded 09/30/17 09:18 - Home Medications Home Medications: Ambulatory Orders Montelukast Na [Singulair -] 10 mg PO HS 05/02/17 Pregabalin [Lyrica -] 75 mg PO BID 05/02/17 Sennosides [Senna -] 1 tab PO HS 05/02/17 Morphine *Sr* [Ms Contin -] 15 mg PO BID 7 Days #14 tablet.sa MDD 30 05/10/17 Metoclopramide HCl [Reglan] 5 mg PO TID 08/29/17 Nitroglycerin Sublingual [Nitrostat -] 0.4 mg .ROUTE ASDIR PRN 08/29/17 Nystatin Oral Suspension - [Nystatin Oral Susp 069446 Units/5 ML -] 100,000 units PO Q6H 08/29/17 Tiotropium [place] [Spiriva Respimat] 2.5 mcg IH DAILY 08/29/17 Insulin Sliding Scale [Novolog Vial Sliding Scale -] 0 units SQ ACHS 09/06/17 Albuterol 0.083% Nebulizer [place] [Ventolin 0.083% Nebulizer Soln -] 1 amp NEB Q4H PRN amp 09/22/17 Apixaban [Eliquis -] 2.5 mg PO BID 30 Days #60 tablet 09/22/17 Arformoterol Tartrate [Brovana -] 1 amp NEB RBID 30 Days #60 amp 09/22/17 Diltiazem [Cardizem -] 30 mg PO TID 30 Days #90 tablet 09/22/17 Furosemide [Lasix -] 40 mg PO DAILY 30 Days #30 tablet 09/22/17 Lisinopril [Prinivil] 10 mg PO DAILY 30 Days #30 tablet 09/22/17 Omeprazole 40 mg PO HS 30 Days #30 capsule. 09/22/17 Sodium Chloride Nasal [place] [[place] Nasal [place] -] 2 spray NS BID 30 Days # 1 spray 09/22/17 Insulin (Levemir) [Levemir Vial] 30 units SQ AM units 10/05/17 Insulin (Levemir) [Levemir Vial] 40 units SQ HS units 10/05/17 Insulin Sliding Scale [Novolog Vial Sliding Scale -] 1 vial SQ ACHS units 10/05 Mag Hydrox/Al Hydrox/Simeth [MAALOX *SUSPENSION* -] 30 ml PO Q6H PRN ml Polyethylene Glycol 3350 [Miralax 119 gm Btl -] 17 gm PO BID bottle 10/05/17 predniSONE [Deltasone -] 60 mg PO DAILY tablet 10/05/17 Family Disease History - Family Disease History Family Disease History: Other: Mother (3 CVAs, the first in her 60s) Physical Exam-Neuro Vital Signs: Vital Signs Temperature 98.3 F 10/14/17 07:44 Pulse Rate 104 H 10/14/17 07:44 Respiratory Rate 17 10/14/17 07:49 Blood Pressure 114/62 10/14/17 07:44 O2 Sat by Pulse Oximetry (%) 98 10/14/17 07:52 Labs: CBC, BMP 10/14/17 05:30 10/14/17 12:00 INR, PTT INR 1.32 (0.82-1.09) H 10/13/17 05:15 - Neuro Exam Level Of Consciousness: Yes: Alert (awake and alert, dysconjugate gaze, no facila, cushingoid fascies, no drift UE, residual left foot drop (prior surgery) ) Imaging - Results Cat Scan: Report Reviewed, Image Reviewed Problem List - Problems (1) Altered mental state Code(s): R41.82 - ALTERED MENTAL STATUS, UNSPECIFIED (2) Sarcoid Code(s): D86.9 - SARCOIDOSIS, UNSPECIFIED (3) Pulmonary sarcoidosis Code(s): D86.0 - SARCOIDOSIS OF LUNG (4) Diastolic CHF Code(s): I50.30 - UNSPECIFIED DIASTOLIC (CONGESTIVE) HEART FAILURE (5) IDDM (insulin dependent diabetes mellitus) Code(s): E11.9 - TYPE 2 DIABETES MELLITUS WITHOUT COMPLICATIONS; 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 (CURRENT) USE OF INSULIN Assessment/Plan 6 y/o female patient with long standing pulmonary Sarcoidosis, ILD/fibrosis, pulmonary HTN, COPD, and cardiac Sarcoid s/p ICD for VT and syncope several years ago -- steroid dependant ( 30mg/day); on NOAC therapy for LLE DVT diagnosed in 12/2016, Hep C, HTN, DM recent HgA1c 9.9, OSVALDO on bipap nightly and PRN, HLD, Decubiti mostly healed , Hx of MAT and PAT, chronic diastolic HF, resently admitted with acute on chronic diastolic CHF, now with progressive respiratory issues; today called Rapid response for altered mental state and respiratory distress, ? LOC/Sz event. ? remote hx of LOC event few years back , 2011; was started on AED at that time, and then subsequently Dc after one yr; hx of diplopia, Sarcoid being managed by PULM. no clear HX of neuro sarcoid documented as per her. CT HD -no acute changes AP : suspect syncopal event more related to respiratory distress, rather than Seizure. will get routine EEG unable to get MRI BRAIN given ICD no AED for now if recurrent events will reassess DR HUFFMAN
[2017-10-14] MEDS: MONTELUKAST NA 10 MG TABLET PO SCH (21:40)
[2017-10-14] MEDS: SENNOSIDES 8.6MG TABLET (FP) PO SCH (21:41)
[2017-10-15] MEDS: methylPREDNISolone NA SUCC 125 MG/2 ML VIAL IVPUSH SCH ×3 (03:00→17:20)
[2017-10-15] MEDS: dilTIAZem HCL 30 MG TABLET (FP) PO SCH ×3 (06:54→22:36)
[2017-10-15] MEDS: METOCLOPRAMIDE HCL 10 MG TABLET (FP) PO SCH ×3 (06:54→22:35)
[2017-10-15] MEDS: INSULIN SLIDING SCALE (NOVOLOG) 1 VIAL SQ SCH ×4 (06:56→22:34)
[2017-10-15] MEDS: INSULIN (LEVEMIR) 100 UNITS/ML UNITS SQ SCH ×2 (06:58→22:33)
[2017-10-15] MEDS: ARFORMOTEROL TARTRATE 15 MCG/2 ML VIAL NEB SCH ×2 (07:37→20:44)
[2017-10-15] MEDS ORDERED: ALBUTEROL SO4 2.5/IPRATROPIUM 0.5 INH SOL 3 ML VIAL.NEB. NEB SCH (08:00)
--- NOTE | 2017-10-15 08:24 | PN ---
Progress Note, Physician Chief Complaint: No distress Neuro input noted History of Present Illness: TELE: NSR with [facility]. - Current Medication List Current Medications: Active Medications Acetaminophen (Tylenol -) 650 mg PO Q4H PRN PRN Reason: PAIN LEVEL 1-5 Al Hydroxide/Mg Hydroxide (Mylanta Oral Suspension -) 30 ml PO Q6H PRN PRN Reason: INDIGESTION Last Admin: 10/14/17 05:14 Dose: 30 ml Albuterol Sulfate (Ventolin 0.083% Nebulizer Soln -) 1 amp NEB Q4H PRN PRN Reason: SHORT OF BREATH/WHEEZING Apixaban (Eliquis -) 2.5 mg PO BID [facility] Last Admin: 10/14/17 21:41 Dose: 2.5 mg Arformoterol Tartrate (Brovana (Restricted To Pulmonology/Resp) -) 1 amp NEB RBID [facility] Last Admin: 10/15/17 07:37 Dose: 1 amp Diltiazem HCl (Cardizem -) 30 mg PO TID [facility] Last Admin: 10/15/17 06:54 Dose: 30 mg Furosemide (Lasix -) 60 mg PO DAILY [facility] Insulin Aspart (Novolog Vial Sliding Scale -) 1 vial SQ [facility]; Protocol Last Admin: 10/15/17 06:56 Dose: 14 units Insulin Detemir (Levemir Vial) 30 units SQ AM [facility] Last Admin: 10/15/17 06:58 Dose: 30 units Insulin Detemir (Levemir Vial) 40 units SQ HS [facility] Last Admin: 10/14/17 21:39 Dose: 40 units Lisinopril (Prinivil) 10 mg PO DAILY [facility] Last Admin: 10/14/17 09:20 Dose: 10 mg Methylprednisolone Sodium Succinate (Solu-Medrol -) 40 mg IVPUSH Q8H-IV [facility] Last Admin: 10/15/17 03:00 Dose: 40 mg Metoclopramide HCl (Reglan -) 5 mg PO TID [facility] Last Admin: 10/15/17 06:54 Dose: 5 mg Montelukast Sodium (Singulair -) 10 mg PO HS [facility] Last Admin: 10/14/17 21:40 Dose: 10 mg Morphine Sulfate (Ms Contin -) 15 mg PO BID [facility] Last Admin: 10/14/17 21:40 Dose: 15 mg Nitroglycerin (Nitrostat -) 0.4 mg SL ASDIR PRN PRN Reason: chest pain Polyethylene Glycol (Miralax (For Daily Use) -) 17 gm PO BID [facility] Last Admin: 10/14/17 21:48 Dose: 17 grams Pregabalin (Lyrica -) 75 mg PO BID [facility] Last Admin: 10/14/17 21:40 Dose: 75 mg Senna (Senna -) 1 tab PO HS [facility] Last Admin: 10/14/17 21:41 Dose: 1 tab Sodium Chloride ([place] Nasal [place] -) 2 spray NS BID [facility] Last Admin: 10/14/17 21:40 Dose: 2 spray Tiotropium [place] (Spiriva -) 1 puff IH DAILY [facility] Last Admin: 10/14/17 09:20 Dose: 1 puff - Objective Vital Signs: Vital Signs Temperature 97.4 F L 10/15/17 02:00 Pulse Rate 89 10/15/17 08:21 Respiratory Rate 18 10/15/17 08:21 Blood Pressure 112/70 10/15/17 08:21 O2 Sat by Pulse Oximetry (%) 96 10/15/17 07:36 Constitutional: Yes: Calm Cardiovascular: Yes: Regular Rate and Rhythm Respiratory: Yes: Other (b/l "dry" rales) Gastrointestinal: Yes: Soft Edema: No Neurological: Yes: Alert, Oriented ...Motor Strength: WNL Psychiatric: Yes: WNL Labs: CBC, BMP 10/14/17 05:30 10/14/17 12:00 INR, PTT INR 1.32 (0.82-1.09) H 10/13/17 05:15 - ....Imaging EKG: Image Reviewed Assessment/Plan Assessment/Plan Cardiac sarcoid, pulmonary sarcoid H/o ICD for syncope, VT, MRI + sarcoid DVT --On Eliquis Chronic diastolic CHF Multifocal atrial tachycardia and Paroxysmal A-Tach anemia Frequent admissions for decompensated diastolic CHF or bronchospasm/Sarcoid exacerbations. Requires steroid tapers intermittently. Now with ?seizure REC: On exam appears relatively euvolemic and BNP is normal. Suspect this is due to ILD/Fibrosis secondary to Sarcoid. 1.Continue usual home dose of Lasix. 2.Cont. Eliquis @ Heme recommended dose. Cardizem for control of PAT/MAT. 3. Neuro w/u in progress
--- NOTE | 2017-10-15 09:02 | CONS ---
PULMONARY CONSULTATION DATE OF CONSULTATION: 10/13/2017 REFERRING PHYSICIAN: Whit Fuchs MD HISTORY OF PRESENT ILLNESS: The patient is a 62-year-old black female known to me in previous hospitalizations. Extensive past medical history includes advanced cardiac and sarcoidosis with pulmonary fibrosis, interstitial lung disease, cardiac sarcoid status post ICD, atrial fibrillation, congestive heart failure, GERD, hyperlipidemia, hepatitis C, hypertension, anemia, diabetes, urinary retention, currently maintained on home oxygen therapy as well as nocturnal BiPAP, with multiple hospitalizations secondary to decompensated CHF as well as sarcoid. Recently hospitalized at [facility] secondary to acute on chronic hypoxemic respiratory failure. Readmitted earlier today with complaint of cough and shortness of breath for approximately 10 hours prior to admission. The patient denied any chest pain, nausea, vomiting, diaphoreses. Denied any fever or chills. She used her DuoNeb at home without any improvement. EMS was called and they gave her Lasix as well as bronchodilators with some improvement. She DVT or PE. She denies any fevers, chills, nausea, vomiting or diaphoreses. On admission, she was evaluated by Dr. Khan for cardiology consultation. She was placed on steroids, as well as Cardizem and Lasix. PAST MEDICAL HISTORY: Again, includes chronic interstitial lung disease, O2 dependent, COPD, hypertension, atrial fibrillation status post ICD, congestive heart failure, GERD, hyperlipidemia, hepatitis C, anemia, urinary retention, pulmonary and cardiac sarcoid advanced, obstructive sleep apnea, chronic hypoxemia, history of DVT, history of multi-focal paroxysmal atrial tachycardia, history of ICD secondary to syncope, ventricular tachycardia, diastolic heart failure. REVIEW OF SYSTEMS: Positive dyspnea. Positive productive cough. No chest pain. No palpitations. No nausea. No vomiting. No hemoptysis. No abdominal pain. CURRENT MEDICATIONS: Not on any current medications. SOCIAL HISTORY: Smoking: Quit years ago. No occupational exposures. PHYSICAL EXAMINATION: General: The patient is a well-developed, well-nourished female. Awake. Alert. Currently in no acute distress. Vital signs: She is currently afebrile, blood pressure is 124/89, respiratory rate is 20, O2 saturation is 100% on 4 liters. HEENT: Exam is normocephalic, atraumatic. Neck: Supple. Heart: S1 and S2. Chest: Bilateral crackles. Abdomen: Soft. Bowel sounds are positive. Extremities: No cyanosis. There is some trace bilateral lower extremity edema. LABORATORIES: WBC is 9.6, hemoglobin 9.2, hematocrit 28.7, and a platelet count of 348,000. Chemistry: BUN 22, creatinine 0.5. BNP is 66. Venous blood gas: PH of 7.48, PCO2 of 51, PO2 of 158, bicarbonate of 37. Chest x-ray: A widened mediastinum, chronic interstitial changes bilaterally. IMPRESSION: 1. Acute on chronic hypoxemic, hypercapnic respiratory failure. Advanced pulmonary sarcoid with interstitial lung disease. 2. Questionable congestive heart failure. Cardiac sarcoid, status post implantable cardioverter-defibrillator status post syncope. 3. Atrial fibrillation. 4. Hypertension. 5. Obstructive sleep apnea. 6. Chronic obstructive pulmonary disease. On home oxygen therapy. 7. History of hepatitis C. 8. Pulmonary hypertension. 9. History of DVT; on Eliquis. PLAN: Steroids. Bronchodilators. Supplemental O2. BiPAP at night as well as p.r.n. Lasix as needed. Follow up chest x-rays. STACY EUBANKS M.D. [facility]/[id number]
[2017-10-15] MEDS: PREGABALIN 75 MG CAPSULE PO SCH ×2 (10:42→22:35)
[2017-10-15] MEDS: FUROSEMIDE 40 MG TABLET (FP) PO SCH (10:42)
[2017-10-15] MEDS: APIXABAN 2.5 MG TABLET PO SCH ×2 (10:42→22:35)
[2017-10-15] MEDS: TIOTROPIUM BROMIDE 18 MCG CAPSULES IH SCH (10:43)
[2017-10-15] MEDS: POLYETHYLENE GLYCOL 3350 119 GM BTL PO SCH ×2 (10:44→22:40)
[2017-10-15] MEDS: SODIUM CHLORIDE NASAL SPRAY 44 ML BOTTLE NS SCH ×2 (10:44→22:35)
[2017-10-15] MEDS: LISINOPRIL 10 MG TABLET (FP) PO SCH (10:44)
[2017-10-15] MEDS: morphine SO4 SUSTAINED ACTING 15 MG TABLET.SA PO SCH ×2 (10:44→22:36)
--- NOTE | 2017-10-15 12:18 | PN ---
Progress Note, Physician History of Present Illness: PULMONARY ALERT,OOB-CHAIR,LESS DYSPNEIC,-CP - Current Medication List Current Medications: Active Medications Acetaminophen (Tylenol -) 650 mg PO Q4H PRN PRN Reason: PAIN LEVEL 1-5 Last Admin: 10/15/17 10:42 Dose: 650 mg Al Hydroxide/Mg Hydroxide (Mylanta Oral Suspension -) 30 ml PO Q6H PRN PRN Reason: INDIGESTION Last Admin: 10/14/17 05:14 Dose: 30 ml Albuterol Sulfate (Ventolin 0.083% Nebulizer Soln -) 1 amp NEB Q4H PRN PRN Reason: SHORT OF BREATH/WHEEZING Apixaban (Eliquis -) 2.5 mg PO BID [facility] Last Admin: 10/15/17 10:42 Dose: 2.5 mg Arformoterol Tartrate (Brovana (Restricted To Pulmonology/Resp) -) 1 amp NEB RBID [facility] Last Admin: 10/15/17 07:37 Dose: 1 amp Diltiazem HCl (Cardizem -) 30 mg PO TID [facility] Last Admin: 10/15/17 06:54 Dose: 30 mg Furosemide (Lasix -) 60 mg PO DAILY [facility] Last Admin: 10/15/17 10:42 Dose: 60 mg Insulin Aspart (Novolog Vial Sliding Scale -) 1 vial SQ [facility]; Protocol Last Admin: 10/15/17 11:28 Dose: 6 units Insulin Detemir (Levemir Vial) 30 units SQ AM [facility] Last Admin: 10/15/17 06:58 Dose: 30 units Insulin Detemir (Levemir Vial) 40 units SQ HS [facility] Last Admin: 10/14/17 21:39 Dose: 40 units Lisinopril (Prinivil) 10 mg PO DAILY [facility] Last Admin: 10/15/17 10:44 Dose: 10 mg Methylprednisolone Sodium Succinate (Solu-Medrol -) 40 mg IVPUSH Q8H-IV [facility] Last Admin: 10/15/17 10:44 Dose: 40 mg Metoclopramide HCl (Reglan -) 5 mg PO TID [facility] Last Admin: 10/15/17 06:54 Dose: 5 mg Montelukast Sodium (Singulair -) 10 mg PO HS [facility] Last Admin: 10/14/17 21:40 Dose: 10 mg Morphine Sulfate (Ms Contin -) 15 mg PO BID [facility] Last Admin: 10/15/17 10:44 Dose: 15 mg Nitroglycerin (Nitrostat -) 0.4 mg SL ASDIR PRN PRN Reason: chest pain Polyethylene Glycol (Miralax (For Daily Use) -) 17 gm PO BID [facility] Last Admin: 10/15/17 10:44 Dose: 17 grams Pregabalin (Lyrica -) 75 mg PO BID [facility] Last Admin: 10/15/17 10:42 Dose: 75 mg Senna (Senna -) 1 tab PO HS [facility] Last Admin: 10/14/17 21:41 Dose: 1 tab Sodium Chloride ([place] Nasal [place] -) 2 spray NS BID [facility] Last Admin: 10/15/17 10:44 Dose: 2 spray Tiotropium [place] (Spiriva -) 1 puff IH DAILY [facility] Last Admin: 10/15/17 10:43 Dose: 1 puff - Objective Vital Signs: Vital Signs Temperature 97.4 F L 10/15/17 02:00 Pulse Rate 89 10/15/17 08:21 Respiratory Rate 18 10/15/17 08:21 Blood Pressure 112/70 10/15/17 08:21 O2 Sat by Pulse Oximetry (%) 94 L 10/15/17 08:21 Constitutional: Yes: Well Nourished, Calm Eyes: Yes: WNL HENT: Yes: WNL Neck: Yes: WNL Cardiovascular: Yes: Regular Rate and Rhythm, S1, S2 Respiratory: Yes: Rales (BILATERAL RALES AND RHONCHI), Rhonchi Gastrointestinal: Yes: Normal Bowel Sounds, Soft Extremities: Yes: WNL Edema: No Labs: CBC, BMP Problem List - Problems (1) CHF (congestive heart failure) Code(s): I50.9 - HEART FAILURE, UNSPECIFIED (2) COPD exacerbation Code(s): J44.1 - CHRONIC OBSTRUCTIVE PULMONARY DISEASE W (ACUTE) EXACERBATION (3) SOB (shortness of breath) Code(s): R06.02 - SHORTNESS OF BREATH (4) Acute on chronic respiratory failure with hypoxia and hypercapnia Code(s): J96.21 - ACUTE AND CHRONIC RESPIRATORY FAILURE WITH HYPOXIA; J96.22 - ACUTE AND CHRONIC RESPIRATORY FAILURE WITH HYPERCAPNIA (5) Cardiac sarcoidosis Code(s): 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 (6) Chronic diastolic CHF (congestive heart failure) Code(s): I50.32 - CHRONIC DIASTOLIC (CONGESTIVE) HEART FAILURE (7) DVT (deep venous thrombosis) Code(s): I82.409 - ACUTE EMBOLISM AND THOMBOS UNSP DEEP VN UNSP LOWER EXTREMITY Qualifiers: Laterality: unspecified laterality (8) Diabetes mellitus Code(s): E11.9 - TYPE 2 DIABETES MELLITUS WITHOUT COMPLICATIONS Qualifiers: Diabetes mellitus type: type 2 Diabetes mellitus complication status: without complication (9) ICD (implantable cardioverter-defibrillator) in place Code(s): Z95.810 - PRESENCE OF AUTOMATIC (IMPLANTABLE) CARDIAC DEFIBRILLATOR (10) Interstitial lung disease Code(s): J84.9 - INTERSTITIAL PULMONARY DISEASE, UNSPECIFIED (11) Interstitial pulmonary fibrosis Code(s): J84.10 - PULMONARY FIBROSIS, UNSPECIFIED (12) PHT (pulmonary hypertension) Code(s): I27.20 - PULMONARY HYPERTENSION, UNSPECIFIED (13) Pulmonary sarcoidosis Code(s): D86.0 - SARCOIDOSIS OF LUNG (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 (15) Sarcoidosis Code(s): D86.9 - SARCOIDOSIS, UNSPECIFIED (16) Sarcoidosis of lung Code(s): D86.0 - SARCOIDOSIS OF LUNG (17) Diastolic CHF Code(s): I50.30 - UNSPECIFIED DIASTOLIC (CONGESTIVE) HEART FAILURE Assessment/Plan IMP ACUTE ON CHRONIC HYPOXEMIC RESPIRATORY FAILURE IMPROVING ADVANCED PULMONARY SARCOID/ILD CARDIAC SARCOID PAROXYSMAL ATRIAL TACHYCARDIA OSVALDO OM BIPAP H/O V-TACH S/P ICD DIASTOLIC HF DM HTN H/O DVT ON ELIQUIS PULMONARY HTN COPD PLAN STEROID TAPER INHALED BRONCHODILATORS LASIX O2 BIPAP AT NIGHT AND PRN SUPPLEMENTAL O2 DAILY WTS GLYCEMIC CONTROL DR EUBANKS Problem List - Problems (1) CHF (congestive heart failure) Code(s): I50.9 - HEART FAILURE, UNSPECIFIED (2) COPD exacerbation Code(s): J44.1 - CHRONIC OBSTRUCTIVE PULMONARY DISEASE W (ACUTE) EXACERBATION (3) SOB (shortness of breath) Code(s): R06.02 - SHORTNESS OF BREATH (4) Acute on chronic respiratory failure with hypoxia and hypercapnia Code(s): J96.21 - ACUTE AND CHRONIC RESPIRATORY FAILURE WITH HYPOXIA; J96.22 - ACUTE AND CHRONIC RESPIRATORY FAILURE WITH HYPERCAPNIA (5) Cardiac sarcoidosis Code(s): 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 (6) Chronic diastolic CHF (congestive heart failure) Code(s): I50.32 - CHRONIC DIASTOLIC (CONGESTIVE) HEART FAILURE (7) DVT (deep venous thrombosis) Code(s): I82.409 - ACUTE EMBOLISM AND THOMBOS UNSP DEEP VN UNSP LOWER EXTREMITY Qualifiers: Laterality: unspecified laterality (8) Diabetes mellitus Code(s): E11.9 - TYPE 2 DIABETES MELLITUS WITHOUT COMPLICATIONS Qualifiers: Diabetes mellitus type: type 2 Diabetes mellitus complication status: without complication (9) ICD (implantable cardioverter-defibrillator) in place Code(s): Z95.810 - PRESENCE OF AUTOMATIC (IMPLANTABLE) CARDIAC DEFIBRILLATOR (10) Interstitial lung disease Code(s): J84.9 - INTERSTITIAL PULMONARY DISEASE, UNSPECIFIED (11) Interstitial pulmonary fibrosis Code(s): J84.10 - PULMONARY FIBROSIS, UNSPECIFIED (12) PHT (pulmonary hypertension) Code(s): I27.20 - PULMONARY HYPERTENSION, UNSPECIFIED (13) Pulmonary sarcoidosis Code(s): D86.0 - SARCOIDOSIS OF LUNG (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 (15) Sarcoidosis Code(s): D86.9 - SARCOIDOSIS, UNSPECIFIED (16) Sarcoidosis of lung Code(s): D86.0 - SARCOIDOSIS OF LUNG (17) Diastolic CHF Code(s): I50.30 - UNSPECIFIED DIASTOLIC (CONGESTIVE) HEART FAILURE
--- NOTE | 2017-10-15 15:24 | PN ---
Physical Exam: SUBJECTIVE: Patient seen and examined oob to chair with NC. Says breathing is better. Has not walked. Chronically sedentary in wheelchair. Has dysuria, urgency. OBJECTIVE: Vital Signs Period Temp Pulse Resp BP Sys/[place]o Pulse Ox Last 24 Hr 97.4 F-98.3 F 85-94 18-20 106-119/60-80 94-100 GENERAL: The patient is awake, alert, and fully oriented, in no acute distress. LUNGS: Diffuse rales, rhonchi and pleural rub; mildy dysnic with speaking HEART: Regular rate and rhythm, S1, S2 ABDOMEN: Soft, nontender, nondistended EXTREMITIES: 1+ b/l LE edema NEUROLOGICAL: Cranial nerves II through XII grossly intact. Normal speech, gait not observed. CBCD WBC 13.7 K/mm3 (4.0-10.0) H 10/14/17 05:30 RBC 3.49 M/mm3 (3.60-5.2) L 10/14/17 05:30 Hgb 9.4 GM/dL (10.7-15.3) L 10/14/17 05:30 Hct 29.8 % (32.4-45.2) L 10/14/17 05:30 MCV 85.5 fl (80-96) 10/14/17 05:30 MCHC 31.7 g/dl (32.0-36.0) L 10/14/17 05:30 RDW 17.1 % (11.6-15.6) H 10/14/17 05:30 Plt Count 311 K/MM3 (134-434) 10/14/17 05:30 MPV 7.6 fl (7.5-11.1) 10/14/17 05:30 CMP Sodium 138 mmol/L (136-145) 10/14/17 05:30 Potassium 4.7 mmol/L (3.5-5.1) 10/14/17 05:30 Chloride 91 mmol/L (98-107) L 10/14/17 05:30 Carbon Dioxide 38 mmol/L (21-32) H 10/14/17 05:30 Anion Gap 9 (8-16) 10/14/17 05:30 BUN 25 mg/dL (7-18) H 10/14/17 05:30 Creatinine 0.8 mg/dL (0.55-1.02) 10/14/17 05:30 Creat Clearance w eGFR > 60 (>60) 10/14/17 05:30 Calcium 8.7 mg/dL (8.5-10.1) 10/14/17 05:30 Total Bilirubin 0.3 mg/dL (0.2-1.0) 10/14/17 05:30 AST 22 U/L (15-37) 10/14/17 05:30 ALT 27 U/L (12-78) 10/14/17 05:30 Alkaline Phosphatase 108 U/L (45-117) D 10/14/17 05:30 Total Protein 7.0 g/dl (6.4-8.2) 10/14/17 05:30 Albumin 2.5 g/dl (3.4-5.0) L 10/14/17 05:30 Active Medications Generic Name Dose Route Start Last Admin Trade Name Freq PRN Reason Stop Dose Admin Acetaminophen 650 mg 10/13/17 10:45 10/15/17 10:42 Tylenol - PO 650 mg Q4H PRN Administration PAIN LEVEL 1-5 Al Hydroxide/Mg Hydroxide 30 ml 10/14/17 04:05 10/14/17 05:14 Mylanta Oral Suspension - PO 30 ml Q6H PRN Administration INDIGESTION Albuterol Sulfate 1 amp 10/13/17 10:10 Ventolin 0.083% Nebulizer Soln - NEB Q4H PRN SHORT OF BREATH/WHEEZING Apixaban 2.5 mg 10/13/17 10:15 10/15/17 10:42 Eliquis - PO 2.5 mg BID EYAL Administration Arformoterol Tartrate 1 amp 10/13/17 20:00 10/15/17 07:37 Brovana (Restricted To Pulmonology/Resp) - NEB 1 amp RBID [facility] Administration Diltiazem HCl 30 mg 10/13/17 14:00 10/15/17 06:54 Cardizem - PO 30 mg TID EYAL Administration Furosemide 60 mg 10/15/17 10:00 10/15/17 10:42 Lasix - PO 60 mg DAILY E[facility]AL Administration Insulin Aspart 1 vial 10/13/17 11:00 10/15/17 11:28 Novolog Vial Sliding Scale - SQ 6 units ACHS EYAL Administration Protocol Insulin Detemir 30 units 10/14/17 07:00 10/15/17 06:58 Levemir Vial SQ 30 units AM [facility] Administration Insulin Detemir 40 units 10/13/17 22:00 10/14/17 21:39 Levemir Vial SQ 40 units HS [facility] Administration Lisinopril 10 mg 10/13/17 10:30 10/15/17 10:44 Prinivil PO 10 mg DAILY [facility] Administration Methylprednisolone Sodium Succinate 40 mg 10/14/17 12:34 10/15/17 10:44 Solu-Medrol - IVPUSH 10/16/17 02:00 40 mg Q8H-IV [facility] Administration Methylprednisolone Sodium Succinate 40 mg 10/16/17 10:00 Solu-Medrol - IVPUSH BID E[facility] Metoclopramide HCl 5 mg 10/13/17 14:00 10/15/17 06:54 Reglan - PO 5 mg TID E[facility]AL Administration Montelukast Sodium 10 mg 10/13/17 22:00 10/14/17 21:40 Singulair - PO 10 mg HS E[facility]AL Administration Morphine Sulfate 15 mg 10/13/17 10:30 10/15/17 10:44 Ms Contin - PO 15 mg BID [facility] Administration Nitrofurantoin Macrocrystals 50 mg 10/15/17 18:00 Macrodantin - PO Q6HPO E[facility]AL Nitroglycerin 0.4 mg 10/13/17 10:10 Nitrostat - SL ASDIR PRN chest pain Polyethylene Glycol 17 gm 10/13/17 10:30 10/15/17 10:44 Miralax (For Daily Use) - PO 17 grams BID [facility] Administration Pregabalin 75 mg 10/13/17 10:30 10/15/17 10:42 Lyrica - PO 75 mg BID [facility] Administration Senna 1 tab 10/13/17 22:00 10/14/17 21:41 Senna - PO 1 tab HS [facility] Administration Sodium Chloride 2 spray 10/13/17 22:00 10/15/17 10:44 [place] Nasal [place] - NS 2 spray BID [facility] Administration Tiotropium [place] 1 puff 10/14/17 10:00 10/15/17 10:43 Spiriva - IH 1 puff DAILY [facility] Administration ASSESSMENT/PLAN: 62 year-old female with a PMH significant for HTN, HLD, pulmonary sarcoidosis/ ILD, COPD, OSVALDO, diastolic heart failure, cardiac sarcoidosis, h/o multifocal atrial tachycardia and paroxysmal atrial tachycardia s/p ICD/PPM, h/o DVT on Eliquis, IDDM, hepatitis C, GERD. Admitted for respiratory failure and CHF exacerbation. Also with UTI. Acute on chronic hypoxemic, hypercapnic respiratory failure Advanced pulmonary sarcoid with ILD COPD OSVALDO --continue IV steroids 40mg q8h --continue Spiriva, Brovana, albuterol nebs --is home O2 dependent 4L; get pre-post in am Diastolic heart failure --close to baseline volume status, chronic b/L LE edema, mild congestive changes on CXR --continue Lasix PO 60mg daily; consider uptitrating, renal function is stable Cardiac sarcoid h/o mumultifocal atrial tachycardia and paroxysmal atrial tachycardia s/p ICD/ PPM --10/05/17 Echo: normal LV, EF 60-65%; mild TR; pHTN --rate well-controlled --continue diltiazem 30mg TID, nitro SL PRN UTI --symptomatic: dysuria, urgency --UA with 123 WBCs --start Macrobid (multiple allergies) h/o DVT --continue Eliquis @ 2.5mg BID (reduced dose secondary to epistaxis/bleeding issues) IDDM --HgbA1C 10.6 --Levemir 30U in am, 40U qhs --Novolog sliding scale coverage --sugars running high possibly due to UTI; see what needs are in next 24 hours and recalculate Lactic acidosis --initial 3.1, repeat pending Near syncope x 2 --remote history of LOC event a few years ago, started on AED at the time, then dc'd after one year --per neuro, suspect syncopal events more related to respiratory distress rather than seizure; also documented history of hypotension with certain meds including long-acting diltiazem --EEG pending --no AED for now --get orthostatics --neuro will continue to follow Hepatitic C --no acute issues GERD FEN Fluids: PO intake adequate Electrolytes: replete as indicated Nutrition: diabetic low sodium DVT PROPHYLAXIS: on Eliquis DISPOSITION: Requires continued inpatient care. Full Code Visit type - Emergency Visit Emergency Visit: Yes ED Registration Date: 10/13/17 Care time: The patient presented to the Emergency Department on the above date and was hospitalized for further evaluation of their emergent condition. - New Patient This patient is new to me today: Yes Date on this admission: 10/15/17 - Critical Care Critical Care patient: No
[2017-10-15] MEDS: NITROFURANTOIN MACROCRYSTAL 50 MG CAPSULE (FP) PO SCH (17:20)
--- NOTE | 2017-10-15 18:10 | PN ---
Progress Note (short form) - Note Progress Note: 62 y/o female patient with long standing pulmonary Sarcoidosis, ILD/fibrosis, pulmonary HTN, COPD, and cardiac Sarcoid s/p ICD for VT and syncope several years ago -- steroid dependant ( 30mg/day); on NOAC therapy for LLE DVT diagnosed in 12/2016, Hep C, HTN, DM recent HgA1c 9.9, OSVALDO on bipap nightly and PRN, HLD, Decubiti mostly healed , Hx of MAT and PAT, chronic diastolic HF, resently admitted with acute on chronic diastolic CHF, now with progressive respiratory issues; today called Rapid response for altered mental state and respiratory distress, ? LOC/Sz event. ? remote hx of LOC event few years back , 2011; was started on AED at that time, and then subsequently Dc after one yr; hx of diplopia, Sarcoid being managed by PULM. no clear HX of neuro sarcoid documented as per her. -No further syncopal events, her resp.ability appears improved. Appears more alert and converses with better attention compared to yesterday. -EEG as outpt. as planned. Thank you, Garth Quevedo MD
[2017-10-15] MEDS: MONTELUKAST NA 10 MG TABLET PO SCH (22:35)
[2017-10-15] MEDS: SENNOSIDES 8.6MG TABLET (FP) PO SCH (22:36)
[2017-10-16 00:37] LABS: URINE APPEARANCE CLOUDY; URINE BILIRUBIN NEGATIVE (<2.0 mg/dL); URINE COLOR YELLOW; URINE GLUCOSE (UA) 3+ (NEGATIVE); URINE KETONE NEGATIVE (NEGATIVE); URINE NITRITE NEGATIVE (NEGATIVE); URINE PROTEIN NEGATIVE (NEGATIVE); URINE UROBILINOGEN NEGATIVE mg/dL (0.2-1.0)
--- NOTE | 2017-10-16 00:40 | CONSULT ---
Consult Consult Specialty:: endocrine Referred by:: dm sinclair md Reason for Consultation:: uncontrolled diabetes mellitus - History of Present Illness Chief Complaint: shortness of breath and high sugars History of Present Illness: 62 year old female, with a significant past medical history of DM,COPD, CHF, scaradosis, Afib, Hepatitis C, asthma, and HTN, who presents to the emergency department with, shortness of breath. As per patient, Recent sudden onset shortness of breath. unrelieved with self medication, She presented to ed for status asthmaticus since admission requiring iv steroids with subsequent higher blood sugars,she has had elevated sugar in past,tries to control with insulin but diet has not been very good,she denies low sugars,nausea or vomiting - Past Medical History CAR STARTER: Yes: Dementia Cardio/Vascular: Yes: CHF, Deep Vein Thrombosis, HTN, Hyperlipdemia, Pulmonary Hypertension, Other (pulmonar Sarcoid / ILD / pulmoary fibrosis) Pulmonary: Yes: Asthma, COPD, Previously Intubated, Sleep Apnea, Pulmonary Fibrosis, O2 Dependent, Other Gastrointestinal: Yes: GERD, Other Hepatobiliary: Yes: Hepatitis C Infectious Disease: Yes: Other Musculoskeletal: Yes: Chronic low back pain Rheumatology: Yes: Sarcoidosis (cardiac and pulmonary) Endocrine: Yes: Diabetes Mellitus Additional Medical History: in wheelchair after accident many years ago. Spinal cord stimulator. Multiple drug allergies. History of Ferrer José syndrome - Past Surgical History Past Surgical History: Yes: Laminectomy, AICD, Permanent Pacemaker - Alcohol/Substance Use Hx Alcohol Use: No - Smoking History Smoking history: Never smoked Have you smoked in the past 12 months: No Aproximately how many cigarettes per day: 0 - Social History ADL: Support Services History of Recent Travel: No Home Medications - Allergies Allergies/Adverse Reactions: Allergies Allergy/AdvReac Type Severity Reaction Status Date / Time medroxyprogesterone acetate Allergy Severe stepehns Verified 10/13/17 05:06 [From Depo-Provera] josé syndrome amoxicillin [From Augmentin] Allergy Verified 10/13/17 05:06 amoxicillin trihydrate Allergy Verified 10/13/17 05:06 [From Augmentin] aspirin Allergy Verified 10/13/17 05:06 azithromycin [From Zithromax] Allergy Dewey Verified 10/13/17 05:06 José syndrome bacitracin Allergy Verified 10/13/17 05:06 ciprofloxacin [From Cipro] Allergy Verified 10/13/17 05:06 ciprofloxacin HCl Allergy Verified 10/13/17 05:06 [From Cipro] clavulanic acid Allergy Verified 10/13/17 05:06 [From Augmentin] codeine [Codeine] Allergy Verified 10/13/17 05:06 Iodinated Contrast- Oral and Allergy Verified 10/13/17 05:06 IV Dye [IV Dye, Iodine Containing Contrast ] ketorolac [From Toradol] Allergy Verified 10/13/17 05:06 ketorolac tromethamine Allergy Verified 10/13/17 05:06 [From Toradol] levofloxacin [From Levaquin] Allergy Verified 10/13/17 05:06 metronidazole [From Flagyl] Allergy Verified 10/13/17 05:06 nalbuphine [From Nubain] Allergy Verified 10/13/17 05:06 nalbuphine HCl [From Nubain] Allergy CYANOSIS Verified 10/13/17 05:06 potassium clavulanate Allergy Verified 10/13/17 05:06 [From Augmentin] Shellfish Allergy Verified 10/13/17 05:06 sulfamethoxazole Allergy Verified 10/13/17 05:06 [From Bactrim] trimethoprim [From Bactrim] Allergy Verified 10/13/17 05:06 ivp dye Allergy Severe Swelling Uncoded 09/30/17 09:18 - Home Medications Home Medications: Ambulatory Orders Montelukast Na [Singulair -] 10 mg PO HS 05/02/17 Pregabalin [Lyrica -] 75 mg PO BID 05/02/17 Sennosides [Senna -] 1 tab PO HS 05/02/17 Morphine *Sr* [Ms Contin -] 15 mg PO BID 7 Days #14 tablet.sa MDD 30 05/10/17 Metoclopramide HCl [Reglan] 5 mg PO TID 08/29/17 Nitroglycerin Sublingual [Nitrostat -] 0.4 mg .ROUTE ASDIR PRN 08/29/17 Nystatin Oral Suspension - [Nystatin Oral Susp 659051 Units/5 ML -] 100,000 units PO Q6H 08/29/17 Tiotropium [place] [Spiriva Respimat] 2.5 mcg IH DAILY 08/29/17 Insulin Sliding Scale [Novolog Vial Sliding Scale -] 0 units SQ ACHS 09/06/17 Albuterol 0.083% Nebulizer Gisela [Ventolin 0.083% Nebulizer Soln -] 1 amp NEB Q4H PRN amp 09/22/17 Apixaban [Eliquis -] 2.5 mg PO BID 30 Days #60 tablet 09/22/17 Arformoterol Tartrate [Brovana -] 1 amp NEB RBID 30 Days #60 amp 09/22/17 Diltiazem [Cardizem -] 30 mg PO TID 30 Days #90 tablet 09/22/17 Furosemide [Lasix -] 40 mg PO DAILY 30 Days #30 tablet 09/22/17 Lisinopril [Prinivil] 10 mg PO DAILY 30 Days #30 tablet 09/22/17 Omeprazole 40 mg PO HS 30 Days #30 capsule. 09/22/17 Sodium Chloride Nasal [place] [[place] Nasal [place] -] 2 spray NS BID 30 Days # 1 spray 09/22/17 Insulin (Levemir) [Levemir Vial] 30 units SQ AM units 10/05/17 Insulin (Levemir) [Levemir Vial] 40 units SQ HS units 10/05/17 Insulin Sliding Scale [Novolog Vial Sliding Scale -] 1 vial SQ ACHS units 10/05 Mag Hydrox/Al Hydrox/Simeth [MAALOX *SUSPENSION* -] 30 ml PO Q6H PRN ml Polyethylene Glycol 3350 [Miralax 119 gm Btl -] 17 gm PO BID bottle 10/05/17 predniSONE [Deltasone -] 60 mg PO DAILY tablet 10/05/17 Family Disease History - Family Disease History Family Disease History: Other: Mother (3 CVAs, the first in her 60s) Review of Systems - Review of Systems Constitutional: reports: Weakness Eyes: reports: No Symptoms HENT: reports: No Symptoms Neck: reports: No Symptoms Cardiovascular: reports: Shortness of Breath Respiratory: reports: Cough, Exercise Intolerance, SOB on Exertion Gastrointestinal: reports: Constipation Genitourinary: reports: No Symptoms Musculoskeletal: reports: Muscle Pain, Muscle Weakness Neurological: reports: Weakness Endocrine: reports: Unexplained Weight Gain Physical Exam Vital Signs: Vital Signs Temperature 98.1 F 10/15/17 18:00 Pulse Rate 101 H 10/15/17 18:00 Respiratory Rate 18 10/15/17 18:00 Blood Pressure 109/67 07/06/18 18:00 O2 Sat by Pulse Oximetry (%) 94 L 10/15/17 08:21 Constitutional: Yes: Anxious Eyes: Yes: EOM Intact HENT: Yes: Normocephalic Neck: Yes: Trachea Midline Cardiovascular: Yes: Tachycardia Respiratory: Yes: On Nasal O2, Rhonchi, SOB, Tachypnea, Wheezes Gastrointestinal: Yes: Abdomen, Obese ...Rectal Exam: Yes: Deferred Renal/: Yes: WNL Musculoskeletal: Yes: Back Pain, Muscle Weakness Extremities: Yes: WNL Neurological: Yes: Alert, Oriented Labs: CBC, BMP 10/14/17 05:30 10/15/17 16:30 Problem List - Problems (1) Controlled diabetes mellitus with nephropathy Code(s): E11.21 - TYPE 2 DIABETES MELLITUS WITH DIABETIC NEPHROPATHY (2) Altered mental state Code(s): R41.82 - ALTERED MENTAL STATUS, UNSPECIFIED (3) CHF (congestive heart failure) Code(s): I50.9 - HEART FAILURE, UNSPECIFIED (4) COPD exacerbation Code(s): J44.1 - CHRONIC OBSTRUCTIVE PULMONARY DISEASE W (ACUTE) EXACERBATION (5) SOB (shortness of breath) Code(s): R06.02 - SHORTNESS OF BREATH (6) Sarcoid Code(s): D86.9 - SARCOIDOSIS, UNSPECIFIED (7) SHERRI (acute kidney injury) Code(s): N17.9 - ACUTE KIDNEY FAILURE, UNSPECIFIED (8) Abdominal pain Code(s): R10.9 - UNSPECIFIED ABDOMINAL PAIN (9) Acute on chronic respiratory failure with hypoxia and hypercapnia Code(s): J96.21 - ACUTE AND CHRONIC RESPIRATORY FAILURE WITH HYPOXIA; J96.22 - ACUTE AND CHRONIC RESPIRATORY FAILURE WITH HYPERCAPNIA Assessment/Plan Current Active Problems Altered mental state (Acute) CHF (congestive heart failure) (Acute) COPD exacerbation (Acute) SOB (shortness of breath) (Acute) Sarcoid (Acute) diabetes mellitus hyperglycemia diabetic neuropathy Abnormal Lab Results 10/15/17 10/15/17 10/15/17 16:30 16:30 21:00 Random Glucose 354 H* Lactic Acid 2.7 H* Urine Glucose (UA) 3+ H Urine Blood 1+ H Ur Leukocyte Esterase 2+ H Laboratory Results - last 24 hr 10/15/17 10/15/1718 06:20 11:14 16:30 POC Glucometer 407 257 Random Glucose Lactic Acid 2.7 H* Urine Color Urine Appearance Urine pH Ur Specific [place] Urine Protein Urine Glucose (UA) Urine Ketones Urine Blood Urine Nitrite Urine Bilirubin Urine Urobilinogen Ur Leukocyte Esterase 10/15/17 10/15/17 10/15/17 16:30 21:00 22:32 POC Glucometer 350 Random Glucose 354 H* Lactic Acid Urine Color Yellow Urine Appearance Cloudy Urine pH 5.0 Ur Specific [place] 1.018 Urine Protein Negative Urine Glucose (UA) 3+ H Urine Ketones Negative Urine Blood 1+ H Urine Nitrite Negative Urine Bilirubin Negative Urine Urobilinogen Negative Ur Leukocyte Esterase 2+ H Laboratory Tests 10/14/17 10/14/17 10/14/17 05:30 05:30 21:07 Sodium 138 Potassium 4.7 Chloride 91 L Carbon Dioxide 38 H Anion Gap 9 BUN 25 H Creatinine 0.8 Creat Clearance w eGFR > 60 POC Glucometer 301 Random Glucose 254 H Hemoglobin A1c % 10.6 H 10/15/17 10/15/17 10/15/17 06:20 11:14 16:30 Sodium Potassium Chloride Carbon Dioxide Anion Gap BUN Creatinine Creat Clearance w eGFR POC Glucometer 407 257 Random Glucose 354 H* Hemoglobin A1c % 10/15/17 22:32 Sodium Potassium Chloride Carbon Dioxide Anion Gap BUN Creatinine Creat Clearance w eGFR POC Glucometer 350 Random Glucose Hemoglobin A1c % plan: bgm qid novolog coverage titrate as needed given steroid needed the levemir am 45 units hs 40 units nutrition consult diet instruction
[2017-10-16 00:41] LABS: URINE LEUK ESTERASE 2+ (NEGATIVE)
[2017-10-16 00:43] LABS: EPI CELLS RARE /HPF (FEW); URIC ACID CRYSTALS RARE /hpf (NONE SEEN); URINE BACTERIA MODERATE /hpf (NONE SEEN); URINE HYALINE CAST 5 /lpf; URINE MUCUS RARE
[2017-10-16] MEDS: methylPREDNISolone NA SUCC 125 MG/2 ML VIAL IVPUSH SCH (01:56)
[2017-10-16] MEDS: dilTIAZem HCL 30 MG TABLET (FP) PO SCH ×3 (06:43→23:39)
[2017-10-16] MEDS: METOCLOPRAMIDE HCL 10 MG TABLET (FP) PO SCH ×3 (06:43→23:33)
[2017-10-16] MEDS: NITROFURANTOIN MACROCRYSTAL 50 MG CAPSULE (FP) PO SCH ×6 (06:43→23:39)
[2017-10-16] MEDS: INSULIN SLIDING SCALE (NOVOLOG) 1 VIAL SQ SCH ×4 (06:44→23:41)
[2017-10-16] MEDS ORDERED: INSULIN (LEVEMIR) 100 UNITS/ML UNITS SQ SCH (07:00)
[2017-10-16 08:03] LABS: BASO % 0.2 % (0-2.0); HEMATOCRIT 27.7 % (32.4-45.2); LYMPH % 4.2 % (8-40); MCH 27.2 pg (25.7-33.7); MCHC 32.4 g/dl (32.0-36.0); MEAN CELL VOLUME 83.8 fl (80-96); MEAN PLT VOLUME 7.4 fl (7.5-11.1); NEUT % 94.6 % (42.8-82.8); PLATELET COUNT 266 K/MM3 (134-434); RDW 16.7 % (11.6-15.6); WHITE BLOOD COUNT 13.5 K/mm3 (4.0-10.0)
[2017-10-16] MEDS: ARFORMOTEROL TARTRATE 15 MCG/2 ML VIAL NEB SCH ×2 (08:05→20:42)
[2017-10-16 08:24] LABS: ALBUMIN 2.7 g/dl (3.4-5.0); ANION GAP 7 (8-16); BLOOD UREA NITROGEN 41 mg/dL (7-18); CALCIUM 9.2 mg/dL (8.5-10.1); CHLORIDE 92 mmol/L (98-107); CO2 39 mmol/L (21-32); GLUCOSE,RANDOM 164 mg/dL (74-106); POTASSIUM 4.4 mmol/L (3.5-5.1); SGOT/AST 13 U/L (15-37); SODIUM 138 mmol/L (136-145)
[2017-10-16 08:26] LABS: ALK PHOS 93 U/L (45-117); BILIRUBIN,TOTAL 0.2 mg/dL (0.2-1.0); CREATININE 0.6 mg/dL (0.55-1.02); SGPT/ALT 24 U/L (12-78); TOT PROT 6.4 g/dl (6.4-8.2)
--- NOTE | 2017-10-16 08:33 | PN ---
Progress Note, Physician History of Present Illness: 62 yo F w/ a hx of asthma, COPD, Afib, Hep C, CHF, Diabetes, HTN, Sarcoidosis is here with SOB. She started having difficulty breathing at 7 PM last night, took a duoneb at 1 am but felt no relief, then called EMS at 4 am. She is permanently on 4 liters of oxygen. Since EMS got her she has been satting at 100 %. She takes 80 of Lasix regularly and states she is compliant with her meds. She endorses regular edema in her wrists and ankles. She denies any recent fevers 10/13/17 05:15 PMH Cardiac sarcoid, pulmonary sarcoid H/o ICD for syncope, VT, MRI + sarcoid DVT --On Eliquis Recent severe epistaxis, seen by laura---> dose changed to 2.5 BID Chronic diastolic CHF Multifocal atrial tachycardia and Paroxysmal A-Tach Frequent admissions for decompensated diastolic CHF or bronchospasm/Sarcoid exacerbations. Requires steroid tapers intermittently. She was recently discharged from here after a short admissions for decompensated diastolic CHF in the setting of Lasix discontinuation. Now readmitted for worsened SOB, cough for one day. In ER found to have elevated WBC, admitted for treatment of suspected PNA. She denies CP/ palps/edema/syncope. - Current Medication List Current Medications: Active Medications Acetaminophen (Tylenol -) 650 mg PO Q4H PRN PRN Reason: PAIN LEVEL 1-5 Last Admin: 10/15/17 10:42 Dose: 650 mg Al Hydroxide/Mg Hydroxide ([place] Oral Suspension -) 30 ml PO Q6H PRN PRN Reason: INDIGESTION Last Admin: 10/14/17 05:14 Dose: 30 ml Albuterol Sulfate (Ventolin 0.083% Nebulizer Soln -) 1 amp NEB Q4H PRN PRN Reason: SHORT OF BREATH/WHEEZING Last Admin: 10/15/17 16:05 Dose: 1 amp Apixaban (Eliquis -) 2.5 mg PO BID [facility] Last Admin: 10/15/17 22:35 Dose: 2.5 mg Arformoterol Tartrate (Brovana (Restricted To Pulmonology/Resp) -) 1 amp NEB RBID [facility] Last Admin: 10/15/17 20:44 Dose: 1 amp Diltiazem HCl (Cardizem -) 30 mg PO TID [facility] Last Admin: 10/16/17 06:43 Dose: 30 mg Furosemide (Lasix -) 60 mg PO DAILY [facility] Last Admin: 10/15/17 10:42 Dose: 60 mg Insulin Aspart (Novolog Vial Sliding Scale -) 1 vial SQ ACHS [facility]; Protocol Last Admin: 10/16/17 06:44 Dose: Not Given Insulin Detemir (Levemir Vial) 40 units SQ HS [facility] Last Admin: 10/15/17 22:33 Dose: 40 units Insulin Detemir (Levemir Vial) 45 units SQ AM [facility] Last Admin: 10/16/17 06:46 Dose: 45 units Lisinopril (Prinivil) 10 mg PO DAILY [facility] Last Admin: 10/15/17 10:44 Dose: 10 mg Methylprednisolone Sodium Succinate (Solu-Medrol -) 40 mg IVPUSH BID [facility] Metoclopramide HCl (Reglan -) 5 mg PO TID [facility] Last Admin: 10/16/17 06:43 Dose: 5 mg Montelukast Sodium (Singulair -) [address] [facility] Last Admin: 10/15/17 22:35 Dose: 10 mg Morphine Sulfate (Ms Contin -) 15 mg PO BID [facility] Last Admin: 10/15/17 22:36 Dose: 15 mg Nitrofurantoin Macrocrystals (Macrodantin -) 50 mg PO Q6HPO [facility] Last Admin: 10/16/17 06:43 Dose: 50 mg Nitroglycerin (Nitrostat -) 0.4 mg SL ASDIR PRN PRN Reason: chest pain Polyethylene Glycol (Miralax (For Daily Use) -) 17 gm PO BID [facility] Last Admin: 10/15/17 22:40 Dose: 17 grams Pregabalin (Lyrica -) 75 mg PO BID [facility] Last Admin: 10/15/17 22:35 Dose: 75 mg Senna (Senna -) [address] [facility] Last Admin: 10/15/17 22:36 Dose: 1 tab Sodium Chloride ([place] Nasal [place] -) 2 spray NS BID [facility] Last Admin: 10/15/17 22:35 Dose: 2 spray Tiotropium [place] (Spiriva -) 1 puff IH DAILY [facility] Last Admin: 10/15/17 10:43 Dose: 1 puff - Objective Vital Signs: Vital Signs Temperature 98.3 F 10/16/17 02:56 Pulse Rate 81 10/16/17 07:00 Respiratory Rate 20 10/16/17 07:00 Blood Pressure 124/73 10/16/17 07:00 O2 Sat by Pulse Oximetry (%) 99 10/15/17 21:00 Eyes: Yes: WNL, Conjunctiva Clear, EOM Intact HENT: Yes: WNL, Atraumatic, Normocephalic Neck: Yes: WNL, Supple, Trachea Midline Cardiovascular: Yes: WNL, Regular Rate and Rhythm Respiratory: Yes: Rhonchi Gastrointestinal: Yes: WNL, Normal Bowel Sounds Genitourinary: Yes: WNL Musculoskeletal: Yes: WNL Extremities: Yes: WNL Edema: No Integumentary: Yes: WNL Neurological: Yes: WNL, Alert, Oriented ...Motor Strength: WNL Psychiatric: Yes: WNL Labs: CBC, BMP 10/16/17 07:15 INR, PTT INR 1.32 (0.82-1.09) H 10/13/17 05:15 Problem List - Problems (1) CHF (congestive heart failure) Code(s): I50.9 - HEART FAILURE, UNSPECIFIED (2) COPD exacerbation Code(s): J44.1 - CHRONIC OBSTRUCTIVE PULMONARY DISEASE W (ACUTE) EXACERBATION (3) SOB (shortness of breath) Code(s): R06.02 - SHORTNESS OF BREATH (4) SHERRI (acute kidney injury) Code(s): N17.9 - ACUTE KIDNEY FAILURE, UNSPECIFIED (5) Abdominal pain Code(s): R10.9 - UNSPECIFIED ABDOMINAL PAIN (6) Acute on chronic respiratory failure with hypoxia and hypercapnia Code(s): J96.21 - ACUTE AND CHRONIC RESPIRATORY FAILURE WITH HYPOXIA; J96.22 - ACUTE AND CHRONIC RESPIRATORY FAILURE WITH HYPERCAPNIA (7) Allergy to multiple antibiotics Code(s): Z88.1 - ALLERGY STATUS TO OTHER ANTIBIOTIC AGENTS STATUS (8) COPD (chronic obstructive pulmonary disease) Code(s): J44.9 - CHRONIC OBSTRUCTIVE PULMONARY DISEASE, UNSPECIFIED (9) COPD exacerbation Code(s): J44.1 - CHRONIC OBSTRUCTIVE PULMONARY DISEASE W (ACUTE) EXACERBATION (10) Cardiac sarcoidosis Code(s): 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 (11) Chest pain Code(s): R07.9 - CHEST PAIN, UNSPECIFIED Qualifiers: Chest pain type: unspecified Qualified Code(s): R07.9 - Chest pain, unspecified (12) Chronic diastolic CHF (congestive heart failure) Code(s): I50.32 - CHRONIC DIASTOLIC (CONGESTIVE) HEART FAILURE (13) Chronic diastolic CHF (congestive heart failure) Code(s): I50.32 - CHRONIC DIASTOLIC (CONGESTIVE) HEART FAILURE (14) Chronic low back pain Code(s): M54.5 - LOW BACK PAIN; G89.29 - OTHER CHRONIC PAIN (15) DVT (deep venous thrombosis) Code(s): I82.409 - ACUTE EMBOLISM AND THOMBOS UNSP DEEP VN UNSP LOWER EXTREMITY Qualifiers: Laterality: unspecified laterality (16) DVT (deep venous thrombosis) Code(s): I82.409 - ACUTE EMBOLISM AND THOMBOS UNSP DEEP VN UNSP LOWER EXTREMITY Qualifiers: DVT location: lower extremity Laterality: left (17) DVT prophylaxis Code(s): [id number] - (18) Diabetes mellitus Code(s): E11.9 - TYPE 2 DIABETES MELLITUS WITHOUT COMPLICATIONS Qualifiers: Diabetes mellitus type: type 2 Diabetes mellitus complication status: without complication (19) Dysuria Code(s): R30.0 - DYSURIA (20) EKG abnormalities Code(s): R94.31 - ABNORMAL ELECTROCARDIOGRAM [ECG] [EKG] (21) Epistaxis Code(s): R04.0 - EPISTAXIS (22) Fall Code(s): W19.XXXA - UNSPECIFIED FALL, INITIAL ENCOUNTER Qualifiers: Encounter type: initial encounter Qualified Code(s): W19.XXXA - Unspecified fall, initial encounter (23) Fracture, metacarpal Code(s): S62.309A - UNSP FRACTURE OF UNSP METACARPAL BONE, INIT FOR CLOS FX (24) Gram-negative bacteremia Code(s): R78.81 - BACTEREMIA (25) Head injury Code(s): S09.90XA - UNSPECIFIED INJURY OF HEAD, INITIAL ENCOUNTER Qualifiers: Encounter type: initial encounter Qualified Code(s): S09.90XA - Unspecified injury of head, initial encounter (26) Hypercarbia Code(s): R06.89 - OTHER ABNORMALITIES OF BREATHING (27) Hypotension Code(s): I95.9 - HYPOTENSION, UNSPECIFIED (28) Hypoxia Code(s): R09.02 - HYPOXEMIA (29) ICD (implantable cardioverter-defibrillator) in place Code(s): Z95.810 - PRESENCE OF AUTOMATIC (IMPLANTABLE) CARDIAC DEFIBRILLATOR (30) ICD (implantable cardioverter-defibrillator) in place Code(s): Z95.810 - PRESENCE OF AUTOMATIC (IMPLANTABLE) CARDIAC DEFIBRILLATOR (31) ICD (implantable cardioverter-defibrillator), dual, in situ Code(s): Z95.810 - PRESENCE OF AUTOMATIC (IMPLANTABLE) CARDIAC DEFIBRILLATOR (32) Influenza A Code(s): J10.1 - FLU DUE TO OTH IDENT INFLUENZA VIRUS W OTH RESP MANIFEST (33) Interstitial lung disease Code(s): J84.9 - INTERSTITIAL PULMONARY DISEASE, UNSPECIFIED (34) Interstitial pulmonary fibrosis Code(s): J84.10 - PULMONARY FIBROSIS, UNSPECIFIED (35) Leukocytosis Code(s): D72.829 - ELEVATED WHITE BLOOD CELL COUNT, UNSPECIFIED (36) Lung infiltrate Code(s): R91.8 - OTHER NONSPECIFIC ABNORMAL FINDING OF LUNG FIELD (37) Multifocal atrial tachycardia Code(s): I47.1 - SUPRAVENTRICULAR TACHYCARDIA (38) Nasal bleeding Code(s): R04.0 - EPISTAXIS (39) Obstructive sleep apnea Code(s): G47.33 - OBSTRUCTIVE SLEEP APNEA (ADULT) (PEDIATRIC) (40) Oxygen dependent Code(s): Z99.81 - DEPENDENCE ON SUPPLEMENTAL OXYGEN (41) PHT (pulmonary hypertension) Code(s): I27.20 - PULMONARY HYPERTENSION, UNSPECIFIED (42) Pneumonia Code(s): J18.9 - PNEUMONIA, UNSPECIFIED ORGANISM Qualifiers: Pneumonia type: due to unspecified organism Laterality: left Lung location: unspecified part of lung Qualified Code(s): J18.9 - Pneumonia, unspecified organism (43) Pneumonia Code(s): J18.9 - PNEUMONIA, UNSPECIFIED ORGANISM (44) Pulmonary sarcoidosis Code(s): D86.0 - SARCOIDOSIS OF LUNG (45) Rapid atrial fibrillation Code(s): I48.91 - UNSPECIFIED ATRIAL FIBRILLATION (46) Respiratory failure Code(s): J96.90 - RESPIRATORY FAILURE, UNSP, UNSP W HYPOXIA OR HYPERCAPNIA (47) Sarcoid Code(s): D86.9 - SARCOIDOSIS, UNSPECIFIED (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 Code(s): 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 (49) Sarcoidosis Code(s): D86.9 - SARCOIDOSIS, UNSPECIFIED (50) Sarcoidosis Code(s): D86.9 - SARCOIDOSIS, UNSPECIFIED (51) Sarcoidosis Code(s): D86.9 - SARCOIDOSIS, UNSPECIFIED (52) Sarcoidosis of lung Code(s): D86.0 - SARCOIDOSIS OF LUNG (53) Septic shock Code(s): A41.9 - SEPSIS, UNSPECIFIED ORGANISM; R65.21 - SEVERE SEPSIS WITH SEPTIC SHOCK (54) Sinus tachycardia Code(s): R00.0 - TACHYCARDIA, UNSPECIFIED (55) Somnolence Code(s): R40.0 - SOMNOLENCE (56) Syncope Code(s): R55 - SYNCOPE AND COLLAPSE Qualifiers: Syncope type: unspecified Qualified Code(s): R55 - Syncope and collapse (57) Systemic inflammatory response syndrome (SIRS) Code(s): R65.10 - SIRS OF NON-INFECTIOUS ORIGIN W/O ACUTE ORGAN DYSFUNCTION (58) Transient ischemic attack Code(s): G45.9 - TRANSIENT CEREBRAL ISCHEMIC ATTACK, UNSPECIFIED (59) UTI (urinary tract infection) Code(s): N39.0 - URINARY TRACT INFECTION, SITE NOT SPECIFIED Qualifiers: Urinary tract infection type: site unspecified Hematuria presence: with hematuria Qualified Code(s): N39.0 - Urinary tract infection, site not specified; R31.9 - Hematuria, unspecified; R31.9 - Hematuria, unspecified (60) Ventricular tachycardia Code(s): I47.2 - VENTRICULAR TACHYCARDIA (61) Asthma Code(s): J45.909 - UNSPECIFIED ASTHMA, UNCOMPLICATED (62) Back pain Code(s): M54.9 - DORSALGIA, UNSPECIFIED Qualifiers: Back pain location: low back pain Chronicity: acute Back pain laterality : bilateral Sciatica presence: without sciatica Qualified Code(s): M54.5 - Low back pain (63) Diastolic CHF Code(s): I50.30 - UNSPECIFIED DIASTOLIC (CONGESTIVE) HEART FAILURE (64) IDDM (insulin dependent diabetes mellitus) Code(s): E11.9 - TYPE 2 DIABETES MELLITUS WITHOUT COMPLICATIONS; Z79.4 - CHECK WRITER (CURRENT) USE OF INSULIN Assessment/Plan Cardiac sarcoid, pulmonary sarcoid H/o ICD for syncope, VT, MRI + sarcoid DVT --On Eliquis Chronic diastolic CHF Multifocal atrial tachycardia and Paroxysmal A-Tach anemia Frequent admissions for decompensated diastolic CHF or bronchospasm/Sarcoid exacerbations. Requires steroid tapers intermittently. Now with ?seizure REC: On exam appears relatively euvolemic and BNP is normal. Suspect this is due to ILD/Fibrosis secondary to Sarcoid. 1.Continue usual home dose of Lasix. 2.Cont. Eliquis @ Heme recommended dose. Cardizem for control of PAT/MAT. 3. Neuro w/u in progress d/c telemetry coverage for dr. Lockhart
[2017-10-16] MEDS: morphine SO4 SUSTAINED ACTING 15 MG TABLET.SA PO SCH ×2 (09:08→23:38)
[2017-10-16] MEDS: FUROSEMIDE 40 MG TABLET (FP) PO SCH (09:09)
[2017-10-16] MEDS: LISINOPRIL 10 MG TABLET (FP) PO SCH (09:10)
[2017-10-16] MEDS: APIXABAN 2.5 MG TABLET PO SCH ×2 (09:10→23:39)
[2017-10-16] MEDS: PREGABALIN 75 MG CAPSULE PO SCH ×2 (09:10→23:39)
[2017-10-16] MEDS: TIOTROPIUM BROMIDE 18 MCG CAPSULES IH SCH (09:24)
[2017-10-16] MEDS: POLYETHYLENE GLYCOL 3350 119 GM BTL PO SCH ×2 (09:28→23:42)
[2017-10-16] MEDS ORDERED: PT OWN MED DRAWER 7, Y5N ONE ×4 (09:30→22:54)
[2017-10-16] MEDS ORDERED: methylPREDNISolone NA SUCC 125 MG/2 ML VIAL IVPUSH SCH (10:00)
[2017-10-16 10:27] LABS: ANISOCYTOSIS 1+; MACROCYTOSIS 0; PLATELET ESTIMATE NORMAL
--- NOTE | 2017-10-16 10:30 | PN ---
Physical Exam: SUBJECTIVE: Patient seen and examined. States she feels a lot better. OBJECTIVE: Vital Signs Period Temp Pulse Resp BP Sys/[place] Pulse Ox Last 24 Hr 98.0 F-98.3 F 81-106 18-20 86-135/46-85 85-100 GENERAL: The patient is awake, alert, and fully oriented, in no acute distress. LUNGS: Diffuse rales, rhonchi and pleural rub, improved from yesterday HEART: Regular rate and rhythm, S1, S2 ABDOMEN: Soft, nontender, nondistended EXTREMITIES: 1+ b/l LE edema NEUROLOGICAL: Cranial nerves II through XII grossly intact. Normal speech, gait not observed. Laboratory Results - last 24 hr 10/15/17 10/15/17 10/15/17 11:14 16:30 16:30 WBC RBC Hgb Hct MCV MCH MCHC RDW Plt Count MPV Absolute Neuts (auto) Neutrophils % Lymphocytes % Monocytes % Eosinophils % Basophils % Nucleated RBC % Sodium Potassium Chloride Carbon Dioxide Anion Gap BUN Creatinine Creat Clearance w eGFR POC Glucometer 257 Random Glucose 354 H* Lactic Acid 2.7 H* Calcium Magnesium Total Bilirubin AST ALT Alkaline Phosphatase Total Protein Albumin Urine Color Urine Appearance Urine pH Ur Specific [place] Urine Protein Urine Glucose (UA) Urine Ketones Urine Blood Urine Nitrite Urine Bilirubin Urine Urobilinogen Ur Leukocyte Esterase Urine WBC (Auto) Urine RBC (Auto) Ur Epithelial Cells Uric Acid Crystals Urine Bacteria Hyaline Casts Urine Mucus 10/15/17 10/15/17 10/16/17 21:00 22:32 06:41 WBC RBC Hgb Hct MCV MCH MCHC RDW Plt Count MPV Absolute Neuts (auto) Neutrophils % Lymphocytes % Monocytes % Eosinophils % Basophils % Nucleated RBC % Sodium Potassium Chloride Carbon Dioxide Anion Gap BUN Creatinine Creat Clearance w eGFR POC Glucometer 350 188 Random Glucose Lactic Acid Calcium Magnesium Total Bilirubin AST ALT Alkaline Phosphatase Total Protein Albumin Urine Color Yellow Urine Appearance Cloudy Urine pH 5.0 Ur Specific [place] 1.018 Urine Protein Negative Urine Glucose (UA) 3+ H Urine Ketones Negative Urine Blood 1+ H Urine Nitrite Negative Urine Bilirubin Negative Urine Urobilinogen Negative Ur Leukocyte Esterase 2+ H Urine WBC (Auto) 48 Urine RBC (Auto) 1 Ur Epithelial Cells Rare Uric Acid Crystals Rare Urine Bacteria Moderate Hyaline Casts 5 Urine Mucus Rare 10/16/17 10/16/17 07:15 07:15 WBC 13.5 H RBC 3.30 L Hgb 9.0 L Hct 27.7 L MCV 83.8 MCH 27.2 MCHC 32.4 RDW 16.7 H Plt Count 266 MPV 7.4 L Absolute Neuts (auto) 12.8 Neutrophils % 94.6 H Lymphocytes % 4.2 L D Monocytes % 1.0 L Eosinophils % 0.0 Basophils % 0.2 Nucleated RBC % 0 Sodium 138 Potassium 4.4 Chloride 92 L Carbon Dioxide 39 H Anion Gap 7 L BUN 41 H Creatinine 0.6 Creat Clearance w eGFR > 60 POC Glucometer Random Glucose 164 H Lactic Acid Calcium 9.2 Magnesium 2.0 Total Bilirubin 0.2 AST 13 L ALT 24 Alkaline Phosphatase 93 D Total Protein 6.4 Albumin 2.7 L Urine Color Urine Appearance Urine pH Ur Specific [place] Urine Protein Urine Glucose (UA) Urine Ketones Urine Blood Urine Nitrite Urine Bilirubin Urine Urobilinogen Ur Leukocyte Esterase Urine WBC (Auto) Urine RBC (Auto) Ur Epithelial Cells Uric Acid Crystals Urine Bacteria Hyaline Casts Urine Mucus Active Medications Generic Name Dose Route Start Last Admin Trade Name Freq PRN Reason Stop Dose Admin Acetaminophen 650 mg 10/13/17 10:45 10/15/17 10:42 Tylenol - PO 650 mg Q4H PRN Administration PAIN LEVEL 1-5 Al Hydroxide/Mg Hydroxide 30 ml 10/14/17 04:05 10/14/17 05:14 Mylanta Oral Suspension - PO 30 ml Q6H PRN Administration INDIGESTION Albuterol Sulfate 1 amp 10/13/17 10:10 10/15/17 16:05 Ventolin 0.083% Nebulizer Soln - NEB 1 amp Q4H PRN Administration SHORT OF BREATH/WHEEZING Apixaban 2.5 mg 10/13/17 10:15 10/16/17 09:10 Eliquis - PO 2.5 mg BID EYAL Administration Arformoterol Tartrate 1 amp 10/13/17 20:00 10/16/17 08:05 Brovana (Restricted To Pulmonology/Resp) - NEB 1 amp RBID EYAL Administration Diltiazem HCl 30 mg 10/13/17 14:00 10/16/17 06:43 Cardizem - PO 30 mg TID EYAL Administration Furosemide 60 mg 10/15/17 10:00 10/16/17 09:09 Lasix - PO 60 mg DAILY EYAL Administration Insulin Aspart 1 vial 07/07/18 07:00 10/16/17 06:44 Novolog Vial Sliding Scale - SQ Not Given ACHS [facility] Protocol Insulin Detemir 40 units 10/13/17 22:00 10/15/17 22:33 Levemir Vial SQ 40 units HS EYAL Administration Insulin Detemir 45 units 10/16/17 07:00 10/16/17 06:46 Levemir Vial SQ 45 units AM EYAL Administration Lisinopril 10 mg 10/13/17 10:30 10/16/17 09:10 Prinivil PO 10 mg DAILY EYAL Administration Methylprednisolone Sodium Succinate 40 mg 10/16/17 10:00 10/16/17 09:10 Solu-Medrol - IVPUSH 40 mg BID EYAL Administration Metoclopramide HCl 5 mg 10/13/17 14:00 10/16/17 06:43 Reglan - PO 5 mg TID EYAL Administration Montelukast Sodium 10 mg 10/13/17 22:00 10/15/17 22:35 Singulair - PO 10 mg HS EYAL Administration Morphine Sulfate 15 mg 10/13/17 10:30 10/16/17 09:08 Ms Contin - PO 15 mg BID EYAL Administration Nitrofurantoin Macrocrystals 50 mg 10/15/17 18:00 10/16/17 06:43 Macrodantin - PO 50 mg Q6HPO EYAL Administration Nitroglycerin 0.4 mg 10/13/17 10:10 Nitrostat - SL ASDIR PRN chest pain Polyethylene Glycol 17 gm 10/13/17 10:30 10/16/17 09:28 Miralax (For Daily Use) - PO 17 grams BID EYAL Administration Pregabalin 75 mg 10/13/17 10:30 10/16/17 09:10 Lyrica - PO 75 mg BID EYAL Administration Senna 1 tab 10/13/17 22:00 10/15/17 22:36 Senna - PO 1 tab HS EYAL Administration Sodium Chloride 2 spray 10/13/17 22:00 10/15/17 22:35 [place] Nasal [place] - NS 2 spray BID EYAL Administration Tiotropium [place] 1 puff 10/14/17 10:00 10/16/17 09:24 Spiriva - IH 1 puff DAILY EYAL Administration ASSESSMENT/PLAN: 62 year-old female with a PMH significant for HTN, HLD, pulmonary sarcoidosis/ ILD, COPD, OSVALDO, diastolic heart failure, cardiac sarcoidosis, h/o multifocal atrial tachycardia and paroxysmal atrial tachycardia s/p ICD/PPM, h/o DVT on Eliquis, IDDM, hepatitis C, GERD. Admitted for respiratory failure and CHF exacerbation. Also with UTI. Acute on chronic hypoxemic, hypercapnic respiratory failure Advanced pulmonary sarcoid with ILD COPD OSVALDO --tapering IV steroids 40mg BID; transition to PO for discharge planning --continue Spiriva, Brovana, albuterol nebs --sats 85% on room air at rest --will need continued O2 dependent 4L at home Diastolic heart failure --close to baseline volume status, chronic b/L LE edema, mild congestive changes on CXR --continue Lasix PO 60mg daily; renal function is stable Cardiac sarcoid h/o mumultifocal atrial tachycardia and paroxysmal atrial tachycardia s/p ICD/ PPM --10/05/17 Echo: normal LV, EF 60-65%; mild TR; pHTN --rate well-controlled --continue diltiazem 30mg TID, nitro SL PRN UTI --syptoms have resolved --continue Macrobid (day #2) (multiple allergies) h/o DVT --continue Eliquis @ 2.5mg BID (reduced dose secondary to epistaxis/bleeding issues) IDDM --HgbA1C 10.6 --sugars running high, seen by endocrine: Levemir increase morning dose 45Um , continue 40U qhs --Novolog sliding scale coverage Lactic acidosis --3.1-->2.7 --likely Type B from albuterol Near syncope x 2 --remote history of LOC event a few years ago, started on AED at the time, then dc'd after one year --per neuro, suspect syncopal events more related to respiratory distress rather than seizure; also documented history of hypotension with certain meds --EEG as outpatient Hepatitic C --no acute issues FEN Fluids: PO intake adequate Electrolytes: replete as indicated Nutrition: diabetic low sodium DVT PROPHYLAXIS: on Eliquis DISPOSITION: Transition to PO prednisone; likely discharge tomorrow on home dose PO lasix. Full Code Visit type - Emergency Visit Emergency Visit: Yes ED Registration Date: 10/13/17 Care time: The patient presented to the Emergency Department on the above date and was hospitalized for further evaluation of their emergent condition. - New Patient This patient is new to me today: No - Critical Care Critical Care patient: No
[2017-10-16] MEDS: SODIUM CHLORIDE NASAL SPRAY 44 ML BOTTLE NS SCH ×2 (10:46→23:42)
--- NOTE | 2017-10-16 13:20 | PN ---
Progress Note (short form) - Note Progress Note: Overall appears much better. In the process of being moved to the medical floor. Less SOB. No CP. Intake & Output 10/13/17 10/14/17 10/15/17 10/16/17 23:59 23:59 23:59 23:59 Intake Total 650 1140 Output Total 3450 2009 500 Balance -2800 -870 -500 Weight 160 lb 161 lb 6 oz 160 lb 8 oz Last Vital Signs Temp Pulse Resp BP Pulse Ox 98.3 F 83 20 124/73 85 L 10/16/17 02:56 10/16/17 09:15 10/16/17 07:00 10/16/17 07:00 10/16/17 09:15 Active Medications Acetaminophen (Tylenol -) 650 mg PO Q4H PRN PRN Reason: PAIN LEVEL 1-5 Last Admin: 10/15/17 10:42 Dose: 650 mg Al Hydroxide/Mg Hydroxide (Mylanta Oral Suspension -) 30 ml PO Q6H PRN PRN Reason: INDIGESTION Last Admin: 10/14/17 05:14 Dose: 30 ml Albuterol Sulfate (Ventolin 0.083% Nebulizer Soln -) 1 amp NEB Q4H PRN PRN Reason: SHORT OF BREATH/WHEEZING Last Admin: 10/15/17 16:05 Dose: 1 amp Apixaban (Eliquis -) 2.5 mg PO BID [facility] Last Admin: 10/16/17 09:10 Dose: 2.5 mg Arformoterol Tartrate (Brovana (Restricted To Pulmonology/Resp) -) 1 amp NEB RBID [facility] Last Admin: 10/16/17 08:05 Dose: 1 amp Diltiazem HCl (Cardizem -) 30 mg PO TID [facility] Last Admin: 10/16/17 06:43 Dose: 30 mg Furosemide (Lasix -) 60 mg PO DAILY [facility] Last Admin: 10/16/17 09:09 Dose: 60 mg Insulin Aspart (Novolog Vial Sliding Scale -) 1 vial SQ ACHS [facility]; Protocol Last Admin: 10/16/17 11:47 Dose: 10 units Insulin Detemir (Levemir Vial) 40 units SQ HS [facility] Last Admin: 10/15/17 22:33 Dose: 40 units Insulin Detemir (Levemir Vial) 45 units SQ AM [facility] Last Admin: 10/16/17 06:46 Dose: 45 units Lisinopril (Prinivil) 10 mg PO DAILY [facility] Last Admin: 10/16/17 09:10 Dose: 10 mg Methylprednisolone Sodium Succinate (Solu-Medrol -) 40 mg IVPUSH BID [facility] Last Admin: 10/16/17 09:10 Dose: 40 mg Metoclopramide HCl (Reglan -) 5 mg PO TID [facility] Last Admin: 10/16/17 06:43 Dose: 5 mg Montelukast Sodium (Singulair -) 10 mg PO HS [facility] Last Admin: 10/15/17 22:35 Dose: 10 mg Morphine Sulfate (Ms Contin -) 15 mg PO BID [facility] Last Admin: 10/16/17 09:08 Dose: 15 mg Nitrofurantoin Macrocrystals (Macrodantin -) 50 mg PO Q6HPO [facility] Last Admin: 10/16/17 12:15 Dose: 50 mg Nitroglycerin (Nitrostat -) 0.4 mg SL ASDIR PRN PRN Reason: chest pain Polyethylene Glycol (Miralax (For Daily Use) -) 17 gm PO BID [facility] Last Admin: 10/16/17 09:28 Dose: 17 grams Pregabalin (Lyrica -) 75 mg PO BID [facility] Last Admin: 10/16/17 09:10 Dose: 75 mg Senna (Senna -) 1 tab PO [facility] Last Admin: 10/15/17 22:36 Dose: 1 tab Sodium Chloride ([place] Nasal [place] -) 2 spray NS BID [facility] Last Admin: 10/16/17 10:46 Dose: 2 spray Tiotropium [place] (Spiriva -) 1 puff IH DAILY [facility] Last Admin: 10/16/17 09:24 Dose: 1 puff Constitutional: Yes: More comfortable, NAD Eyes: Yes: WNL HENT: Yes: WNL Neck: Yes: WNL Cardiovascular: Yes: Regular Rate and Rhythm, S1, S2 Respiratory: Yes: Bilateral scattered Rales / Rhonchi Gastrointestinal: Yes: Normal Bowel Sounds, Soft Extremities: Yes: WNL Edema: No Labs: Laboratory Results - last 24 hr 10/15/17 10/15/17 10/15/17 16:30 16:30 21:00 WBC RBC Hgb Hct MCV MCH MCHC RDW Plt Count MPV Absolute Neuts (auto) Neutrophils % Neutrophils % (Manual) Band Neutrophils % Lymphocytes % Lymphocytes % (Manual) Monocytes % Monocytes % (Manual) Eosinophils % Eosinophils % (Manual) Basophils % Basophils % (Manual) Myelocytes % (Man) Promyelocytes % (Man) Blast Cells % (Manual) Nucleated RBC % Metamyelocytes Hypochromia Platelet Estimate Polychromasia Poikilocytosis Anisocytosis Microcytosis Macrocytosis Sodium Potassium Chloride Carbon Dioxide Anion Gap BUN Creatinine Creat Clearance w eGFR POC Glucometer Random Glucose 354 H* Lactic Acid 2.7 H* Calcium Magnesium Total Bilirubin AST ALT Alkaline Phosphatase Total Protein Albumin Urine Color Yellow Urine Appearance Cloudy Urine pH 5.0 Ur Specific [place] 1.018 Urine Protein Negative Urine Glucose (UA) 3+ H Urine Ketones Negative Urine Blood 1+ H Urine Nitrite Negative Urine Bilirubin Negative Urine Urobilinogen Negative Ur Leukocyte Esterase 2+ H Urine WBC (Auto) 48 Urine RBC (Auto) 1 Ur Epithelial Cells Rare Uric Acid Crystals Rare Urine Bacteria Moderate Hyaline Casts 5 Urine Mucus Rare 10/15/17 10/16/17 10/16/17 22:32 06:41 07:15 WBC 13.5 H RBC 3.30 L Hgb 9.0 L Hct 27.7 L MCV 83.8 MCH 27.2 MCHC 32.4 RDW 16.7 H Plt Count 266 MPV 7.4 L Absolute Neuts (auto) 12.8 Neutrophils % 94.6 H Neutrophils % (Manual) 94.1 H Band Neutrophils % 1.0 Lymphocytes % 4.2 L D Lymphocytes % (Manual) 3.9 L D Monocytes % 1.0 L Monocytes % (Manual) 1 L Eosinophils % 0.0 Eosinophils % (Manual) 0.0 D Basophils % 0.2 Basophils % (Manual) 0.0 Myelocytes % (Man) 0 Promyelocytes % (Man) 0 Blast Cells % (Manual) 0 Nucleated RBC % 0 Metamyelocytes 0 Hypochromia 1+ Platelet Estimate Normal Polychromasia 1+ Poikilocytosis 1+ Anisocytosis 1+ Microcytosis 1+ Macrocytosis 0 Sodium Potassium Chloride Carbon Dioxide Anion Gap BUN Creatinine Creat Clearance w eGFR POC Glucometer 350 188 Random Glucose Lactic Acid Calcium Magnesium Total Bilirubin AST ALT Alkaline Phosphatase Total Protein Albumin Urine Color Urine Appearance Urine pH Ur Specific [place] Urine Protein Urine Glucose (UA) Urine Ketones Urine Blood Urine Nitrite Urine Bilirubin Urine Urobilinogen Ur Leukocyte Esterase Urine WBC (Auto) Urine RBC (Auto) Ur Epithelial Cells Uric Acid Crystals Urine Bacteria Hyaline Casts Urine Mucus 10/16/17 10/16/17 07:15 11:44 WBC RBC Hgb Hct MCV MCH MCHC RDW Plt Count MPV Absolute Neuts (auto) Neutrophils % Neutrophils % (Manual) Band Neutrophils % Lymphocytes % Lymphocytes % (Manual) Monocytes % Monocytes % (Manual) Eosinophils % Eosinophils % (Manual) Basophils % Basophils % (Manual) Myelocytes % (Man) Promyelocytes % (Man) Blast Cells % (Manual) Nucleated RBC % Metamyelocytes Hypochromia Platelet Estimate Polychromasia Poikilocytosis Anisocytosis Microcytosis Macrocytosis Sodium 138 Potassium 4.4 Chloride 92 L Carbon Dioxide 39 H Anion Gap 7 L BUN 41 H Creatinine 0.6 Creat Clearance w eGFR > 60 POC Glucometer 328 Random Glucose 164 H Lactic Acid Calcium 9.2 Magnesium 2.0 Total Bilirubin 0.2 AST 13 L ALT 24 Alkaline Phosphatase 93 D Total Protein 6.4 Albumin 2.7 L Urine Color Urine Appearance Urine pH Ur Specific [place] Urine Protein Urine Glucose (UA) Urine Ketones Urine Blood Urine Nitrite Urine Bilirubin Urine Urobilinogen Ur Leukocyte Esterase Urine WBC (Auto) Urine RBC (Auto) Ur Epithelial Cells Uric Acid Crystals Urine Bacteria Hyaline Casts Urine Mucus Problem List - Problems (1) CHF (congestive heart failure) Code(s): I50.9 - HEART FAILURE, UNSPECIFIED (2) COPD exacerbation Code(s): J44.1 - CHRONIC OBSTRUCTIVE PULMONARY DISEASE W (ACUTE) EXACERBATION (3) SOB (shortness of breath) Code(s): R06.02 - SHORTNESS OF BREATH (4) Acute on chronic respiratory failure with hypoxia and hypercapnia Code(s): J96.21 - ACUTE AND CHRONIC RESPIRATORY FAILURE WITH HYPOXIA; J96.22 - ACUTE AND CHRONIC RESPIRATORY FAILURE WITH HYPERCAPNIA (5) Cardiac sarcoidosis Code(s): 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 (6) Chronic diastolic CHF (congestive heart failure) Code(s): I50.32 - CHRONIC DIASTOLIC (CONGESTIVE) HEART FAILURE (7) DVT (deep venous thrombosis) Code(s): I82.409 - ACUTE EMBOLISM AND THOMBOS UNSP DEEP VN UNSP LOWER EXTREMITY Qualifiers: Laterality: unspecified laterality (8) Diabetes mellitus Code(s): E11.9 - TYPE 2 DIABETES MELLITUS WITHOUT COMPLICATIONS Qualifiers: Diabetes mellitus type: type 2 Diabetes mellitus complication status: without complication (9) ICD (implantable cardioverter-defibrillator) in place Code(s): Z95.810 - PRESENCE OF AUTOMATIC (IMPLANTABLE) CARDIAC DEFIBRILLATOR (10) Interstitial lung disease Code(s): J84.9 - INTERSTITIAL PULMONARY DISEASE, UNSPECIFIED (11) Interstitial pulmonary fibrosis Code(s): J84.10 - PULMONARY FIBROSIS, UNSPECIFIED (12) PHT (pulmonary hypertension) Code(s): I27.20 - PULMONARY HYPERTENSION, UNSPECIFIED (13) Pulmonary sarcoidosis Code(s): D86.0 - SARCOIDOSIS OF LUNG (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 (15) Sarcoidosis Code(s): D86.9 - SARCOIDOSIS, UNSPECIFIED (16) Sarcoidosis of lung Code(s): D86.0 - SARCOIDOSIS OF LUNG (17) Diastolic CHF Code(s): I50.30 - UNSPECIFIED DIASTOLIC (CONGESTIVE) HEART FAILURE Assessment/Plan IMP ACUTE ON CHRONIC HYPOXEMIC RESPIRATORY FAILURE IMPROVING ADVANCED PULMONARY SARCOID/ILD CARDIAC SARCOID PAROXYSMAL ATRIAL TACHYCARDIA OSVALDO OM BIPAP H/O V-TACH S/P ICD DIASTOLIC HF DM HTN H/O DVT ON ELIQUIS PULMONARY HTN COPD PLAN STEROID TAPER INHALED BRONCHODILATORS LASIX O2 NIPPV AT NIGHT AND PRN SUPPLEMENTAL O2 DAILY WTS GLYCEMIC CONTROL Dr Rubio
[2017-10-16] MEDS ORDERED: MAG HYDROX/AL HYDROX/SIMETH 30 ML UNIT-DOSE CUP PO PRN (19:57)
[2017-10-16] MEDS ORDERED: NITROGLYCERIN SUBLINGUAL 1/150 0.4 MG TAB SL PRN (19:57)
[2017-10-16] MEDS ORDERED: ALBUTEROL SO4 0.083% IH SOL 2.5 MG/3 ML VIAL.NEB. NEB PRN (19:57)
[2017-10-16] MEDS ORDERED: ACETAMINOPHEN 325 MG TABLET (FP) PO PRN (19:57)
[2017-10-16] MEDS ORDERED: methylPREDNISolone NA SUCC 40 MG/1 ML VIAL IVPUSH SCH (22:00)
[2017-10-16] MEDS: MONTELUKAST NA 10 MG TABLET PO SCH (23:37)
[2017-10-16] MEDS: SENNOSIDES 8.6MG TABLET (FP) PO SCH (23:37)
[2017-10-16] MEDS: INSULIN (LEVEMIR) 100 UNITS/ML UNITS SQ SCH (23:40)
[2017-10-17] MEDS: INSULIN SLIDING SCALE (NOVOLOG) 1 VIAL SQ SCH ×4 (06:59→23:04)
[2017-10-17] MEDS ORDERED: INSULIN (LEVEMIR) 100 UNITS/ML UNITS SQ SCH (07:00)
[2017-10-17] MEDS: dilTIAZem HCL 30 MG TABLET (FP) PO SCH ×3 (07:01→22:59)
[2017-10-17] MEDS: METOCLOPRAMIDE HCL 10 MG TABLET (FP) PO SCH ×3 (07:01→22:51)
[2017-10-17] MEDS: NITROFURANTOIN MACROCRYSTAL 50 MG CAPSULE (FP) PO SCH ×4 (07:02→23:45)
[2017-10-17] MEDS ORDERED: INSULIN (LEVEMIR) 100 UNITS/ML UNITS SQ ONE (07:22)
[2017-10-17] MEDS ORDERED: INSULIN (NOVOLOG) ASPART 100 UNITS/ML 10ML VIAL ONE ×2 (07:22→11:48)
[2017-10-17] MEDS: ARFORMOTEROL TARTRATE 15 MCG/2 ML VIAL NEB SCH ×2 (07:30→20:15)
--- NOTE | 2017-10-17 08:56 | PN ---
Progress Note, Physician History of Present Illness: 62 yo F w/ a hx of asthma, COPD, Afib, Hep C, CHF, Diabetes, HTN, Sarcoidosis is here with SOB. She started having difficulty breathing at 7 PM last night, took a duoneb at 1 am but felt no relief, then called EMS at 4 am. She is permanently on 4 liters of oxygen. Since EMS got her she has been satting at 100 %. She takes 80 of Lasix regularly and states she is compliant with her meds. She endorses regular edema in her wrists and ankles. She denies any recent fevers 10/13/17 05:15 PMH Cardiac sarcoid, pulmonary sarcoid H/o ICD for syncope, VT, MRI + sarcoid DVT --On Eliquis Recent severe epistaxis, seen by laura---> dose changed to 2.5 BID Chronic diastolic CHF Multifocal atrial tachycardia and Paroxysmal A-Tach Frequent admissions for decompensated diastolic CHF or bronchospasm/Sarcoid exacerbations. Requires steroid tapers intermittently. She was recently discharged from here after a short admissions for decompensated diastolic CHF in the setting of Lasix discontinuation. Now readmitted for worsened SOB, cough for one day. In ER found to have elevated WBC, admitted for treatment of suspected PNA. She denies CP/ palps/edema/syncope. - Current Medication List Current Medications: Active Medications Acetaminophen (Tylenol -) 650 mg PO Q4H PRN PRN Reason: PAIN LEVEL 1-5 Al Hydroxide/Mg Hydroxide (Mylanta Oral Suspension -) 30 ml PO Q6H PRN PRN Reason: INDIGESTION Albuterol Sulfate (Ventolin 0.083% Nebulizer Soln -) 1 amp NEB Q4H PRN PRN Reason: SHORT OF BREATH/WHEEZING Apixaban (Eliquis -) 2.5 mg PO BID [facility] Last Admin: 10/16/17 23:39 Dose: 2.5 mg Arformoterol Tartrate (Brovana (Restricted To Pulmonology/Resp) -) 1 amp NEB RBID [facility] Last Admin: 10/17/17 07:30 Dose: 1 amp Diltiazem HCl (Cardizem -) 30 mg PO TID [facility] Last Admin: 10/17/17 07:01 Dose: 30 mg Furosemide (Lasix -) 60 mg PO DAILY [facility] Insulin Aspart (Novolog Vial Sliding Scale -) 1 vial SQ ACHS [facility]; Protocol Last Admin: 10/17/17 06:59 Dose: 8 units Insulin Detemir (Levemir Vial) 40 units SQ HS [facility] Last Admin: 10/16/17 23:40 Dose: 40 units Insulin Detemir (Levemir Vial) 45 units SQ AM [facility] Last Admin: 10/17/17 07:00 Dose: 45 units Lisinopril (Prinivil) 10 mg PO DAILY [facility] Metoclopramide HCl (Reglan -) 5 mg PO TID [facility] Last Admin: 10/17/17 07:01 Dose: 5 mg Montelukast Sodium (Singulair -) 10 mg PO HS [facility] Last Admin: 10/16/17 23:37 Dose: 10 mg Morphine Sulfate (Ms Contin -) 15 mg PO BID [facility] Last Admin: 10/16/17 23:38 Dose: 15 mg Nitrofurantoin Macrocrystals (Macrodantin -) 50 mg PO Q6HPO [facility] Last Admin: 10/17/17 07:02 Dose: 50 mg Nitroglycerin (Nitrostat -) 0.4 mg SL ASDIR PRN PRN Reason: chest pain Polyethylene Glycol (Miralax (For Daily Use) -) 17 gm PO BID [facility] Last Admin: 10/16/17 23:42 Dose: Not Given Prednisone (Deltasone -) 60 mg PO ONCE ONE Stop: 10/17/17 08:48 Pregabalin (Lyrica -) 75 mg PO BID [facility] Last Admin: 10/16/17 23:39 Dose: 75 mg Senna (Senna -) 1 tab PO [facility] Last Admin: 10/16/17 23:37 Dose: 1 tab Sodium Chloride ([place] Nasal [place] -) 2 spray NS BID [facility] Last Admin: 10/16/17 23:42 Dose: 2 sprays Tiotropium [place] (Spiriva -) 1 puff IH DAILY [facility] - Objective Vital Signs: Vital Signs Temperature 97.5 F L 10/17/17 06:00 Pulse Rate 75 10/17/17 06:00 Respiratory Rate 20 10/17/17 06:00 Blood Pressure 128/76 10/17/17 06:00 O2 Sat by Pulse Oximetry (%) 99 10/17/17 07:30 Eyes: Yes: WNL, Conjunctiva Clear, EOM Intact HENT: Yes: WNL, Atraumatic, Normocephalic Neck: Yes: WNL, Supple, Trachea Midline Cardiovascular: Yes: WNL, Regular Rate and Rhythm Respiratory: Yes: Rhonchi Gastrointestinal: Yes: WNL, Normal Bowel Sounds Genitourinary: Yes: WNL Musculoskeletal: Yes: WNL Extremities: Yes: WNL Edema: No Integumentary: Yes: WNL Neurological: Yes: WNL, Alert, Oriented ...Motor Strength: WNL Psychiatric: Yes: WNL Labs: CBC, BMP 10/16/17 07:15 10/16/17 07:15 INR, PTT INR 1.32 (0.82-1.09) H 10/13/17 05:15 Problem List - Problems (1) CHF (congestive heart failure) Code(s): I50.9 - HEART FAILURE, UNSPECIFIED (2) COPD exacerbation Code(s): J44.1 - CHRONIC OBSTRUCTIVE PULMONARY DISEASE W (ACUTE) EXACERBATION (3) SOB (shortness of breath) Code(s): R06.02 - SHORTNESS OF BREATH (4) SHERRI (acute kidney injury) Code(s): N17.9 - ACUTE KIDNEY FAILURE, UNSPECIFIED (5) Abdominal pain Code(s): R10.9 - UNSPECIFIED ABDOMINAL PAIN (6) Acute on chronic respiratory failure with hypoxia and hypercapnia Code(s): J96.21 - ACUTE AND CHRONIC RESPIRATORY FAILURE WITH HYPOXIA; J96.22 - ACUTE AND CHRONIC RESPIRATORY FAILURE WITH HYPERCAPNIA (7) Allergy to multiple antibiotics Code(s): Z88.1 - ALLERGY STATUS TO OTHER ANTIBIOTIC AGENTS STATUS (8) COPD (chronic obstructive pulmonary disease) Code(s): J44.9 - CHRONIC OBSTRUCTIVE PULMONARY DISEASE, UNSPECIFIED (9) COPD exacerbation Code(s): J44.1 - CHRONIC OBSTRUCTIVE PULMONARY DISEASE W (ACUTE) EXACERBATION (10) Cardiac sarcoidosis Code(s): 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 (11) Chest pain Code(s): R07.9 - CHEST PAIN, UNSPECIFIED Qualifiers: Chest pain type: unspecified Qualified Code(s): R07.9 - Chest pain, unspecified (12) Chronic diastolic CHF (congestive heart failure) Code(s): I50.32 - CHRONIC DIASTOLIC (CONGESTIVE) HEART FAILURE (13) Chronic diastolic CHF (congestive heart failure) Code(s): I50.32 - CHRONIC DIASTOLIC (CONGESTIVE) HEART FAILURE (14) Chronic low back pain Code(s): M54.5 - LOW BACK PAIN; G89.29 - OTHER CHRONIC PAIN (15) DVT (deep venous thrombosis) Code(s): I82.409 - ACUTE EMBOLISM AND THOMBOS UNSP DEEP VN UNSP LOWER EXTREMITY Qualifiers: Laterality: unspecified laterality (16) DVT (deep venous thrombosis) Code(s): I82.409 - ACUTE EMBOLISM AND THOMBOS UNSP DEEP VN UNSP LOWER EXTREMITY Qualifiers: DVT location: lower extremity Laterality: left (17) DVT prophylaxis Code(s): IIA5312 - (18) Diabetes mellitus Code(s): E11.9 - TYPE 2 DIABETES MELLITUS WITHOUT COMPLICATIONS Qualifiers: Diabetes mellitus type: type 2 Diabetes mellitus complication status: without complication (19) Dysuria Code(s): R30.0 - DYSURIA (20) EKG abnormalities Code(s): R94.31 - ABNORMAL ELECTROCARDIOGRAM [ECG] [EKG] (21) Epistaxis Code(s): R04.0 - EPISTAXIS (22) Fall Code(s): W19.XXXA - UNSPECIFIED FALL, INITIAL ENCOUNTER Qualifiers: Encounter type: initial encounter Qualified Code(s): W19.XXXA - Unspecified fall, initial encounter (23) Fracture, metacarpal Code(s): S62.309A - UNSP FRACTURE OF UNSP METACARPAL BONE, INIT FOR CLOS FX (24) Gram-negative bacteremia Code(s): R78.81 - BACTEREMIA (25) Head injury Code(s): S09.90XA - UNSPECIFIED INJURY OF HEAD, INITIAL ENCOUNTER Qualifiers: Encounter type: initial encounter Qualified Code(s): S09.90XA - Unspecified injury of head, initial encounter (26) Hypercarbia Code(s): R06.89 - OTHER ABNORMALITIES OF BREATHING (27) Hypotension Code(s): I95.9 - HYPOTENSION, UNSPECIFIED (28) Hypoxia Code(s): R09.02 - HYPOXEMIA (29) ICD (implantable cardioverter-defibrillator) in place Code(s): Z95.810 - PRESENCE OF AUTOMATIC (IMPLANTABLE) CARDIAC DEFIBRILLATOR (30) ICD (implantable cardioverter-defibrillator) in place Code(s): Z95.810 - PRESENCE OF AUTOMATIC (IMPLANTABLE) CARDIAC DEFIBRILLATOR (31) ICD (implantable cardioverter-defibrillator), dual, in situ Code(s): Z95.810 - PRESENCE OF AUTOMATIC (IMPLANTABLE) CARDIAC DEFIBRILLATOR (32) Influenza A Code(s): J10.1 - FLU DUE TO OTH IDENT INFLUENZA VIRUS W OTH RESP MANIFEST (33) Interstitial lung disease Code(s): J84.9 - INTERSTITIAL PULMONARY DISEASE, UNSPECIFIED (34) Interstitial pulmonary fibrosis Code(s): J84.10 - PULMONARY FIBROSIS, UNSPECIFIED (35) Leukocytosis Code(s): D72.829 - ELEVATED WHITE BLOOD CELL COUNT, UNSPECIFIED (36) Lung infiltrate Code(s): R91.8 - OTHER NONSPECIFIC ABNORMAL FINDING OF LUNG FIELD (37) Multifocal atrial tachycardia Code(s): I47.1 - SUPRAVENTRICULAR TACHYCARDIA (38) Nasal bleeding Code(s): R04.0 - EPISTAXIS (39) Obstructive sleep apnea Code(s): G47.33 - OBSTRUCTIVE SLEEP APNEA (ADULT) (PEDIATRIC) (40) Oxygen dependent Code(s): Z99.81 - DEPENDENCE ON SUPPLEMENTAL OXYGEN (41) PHT (pulmonary hypertension) Code(s): I27.20 - PULMONARY HYPERTENSION, UNSPECIFIED (42) Pneumonia Code(s): J18.9 - PNEUMONIA, UNSPECIFIED ORGANISM Qualifiers: Pneumonia type: due to unspecified organism Laterality: left Lung location: unspecified part of lung Qualified Code(s): J18.9 - Pneumonia, unspecified organism (43) Pneumonia Code(s): J18.9 - PNEUMONIA, UNSPECIFIED ORGANISM (44) Pulmonary sarcoidosis Code(s): D86.0 - SARCOIDOSIS OF LUNG (45) Rapid atrial fibrillation Code(s): I48.91 - UNSPECIFIED ATRIAL FIBRILLATION (46) Respiratory failure Code(s): J96.90 - RESPIRATORY FAILURE, UNSP, UNSP W HYPOXIA OR HYPERCAPNIA (47) Sarcoid Code(s): D86.9 - SARCOIDOSIS, UNSPECIFIED (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 Code(s): 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 (49) Sarcoidosis Code(s): D86.9 - SARCOIDOSIS, UNSPECIFIED (50) Sarcoidosis Code(s): D86.9 - SARCOIDOSIS, UNSPECIFIED (51) Sarcoidosis Code(s): D86.9 - SARCOIDOSIS, UNSPECIFIED (52) Sarcoidosis of lung Code(s): D86.0 - SARCOIDOSIS OF LUNG (53) Septic shock Code(s): A41.9 - SEPSIS, UNSPECIFIED ORGANISM; R65.21 - SEVERE SEPSIS WITH SEPTIC SHOCK (54) Sinus tachycardia Code(s): R00.0 - TACHYCARDIA, UNSPECIFIED (55) Somnolence Code(s): R40.0 - SOMNOLENCE (56) Syncope Code(s): R55 - SYNCOPE AND COLLAPSE Qualifiers: Syncope type: unspecified Qualified Code(s): R55 - Syncope and collapse (57) Systemic inflammatory response syndrome (SIRS) Code(s): R65.10 - SIRS OF NON-INFECTIOUS ORIGIN W/O ACUTE ORGAN DYSFUNCTION (58) Transient ischemic attack Code(s): G45.9 - TRANSIENT CEREBRAL ISCHEMIC ATTACK, UNSPECIFIED (59) UTI (urinary tract infection) Code(s): N39.0 - URINARY TRACT INFECTION, SITE NOT SPECIFIED Qualifiers: Urinary tract infection type: site unspecified Hematuria presence: with hematuria Qualified Code(s): N39.0 - Urinary tract infection, site not specified; R31.9 - Hematuria, unspecified; R31.9 - Hematuria, unspecified (60) Ventricular tachycardia Code(s): I47.2 - VENTRICULAR TACHYCARDIA (61) Asthma Code(s): J45.909 - UNSPECIFIED ASTHMA, UNCOMPLICATED (62) Back pain Code(s): M54.9 - DORSALGIA, UNSPECIFIED Qualifiers: Back pain location: low back pain Chronicity: acute Back pain laterality : bilateral Sciatica presence: without sciatica Qualified Code(s): M54.5 - Low back pain (63) Diastolic CHF Code(s): I50.30 - UNSPECIFIED DIASTOLIC (CONGESTIVE) HEART FAILURE (64) IDDM (insulin dependent diabetes mellitus) Code(s): E11.9 - TYPE 2 DIABETES MELLITUS WITHOUT COMPLICATIONS; Z79.4 - SNF (CURRENT) USE OF INSULIN Assessment/Plan Cardiac sarcoid, pulmonary sarcoid H/o ICD for syncope, VT, MRI + sarcoid DVT --On Eliquis Chronic diastolic CHF Multifocal atrial tachycardia and Paroxysmal A-Tach anemia Frequent admissions for decompensated diastolic CHF or bronchospasm/Sarcoid exacerbations. Requires steroid tapers intermittently. Now with ?seizure REC: On exam appears relatively euvolemic and BNP is normal. Suspect this is due to ILD/Fibrosis secondary to Sarcoid. 1.Continue usual home dose of Lasix. 2.Cont. Eliquis @ Heme recommended dose. Amarilism for control of PAT/MAT. 3. Neuro w/u in progress d/c telemetry coverage for dr. Lockhart
[2017-10-17] MEDS ORDERED: predniSONE 20 MG TABLET (UD) PO ONE ×2 (09:00→11:15)
--- NOTE | 2017-10-17 09:08 | DS ---
Physical Exam: SUBJECTIVE: Patient seen and examined OBJECTIVE: Vital Signs Period Temp Pulse Resp BP Sys/[place] Pulse Ox Last 24 Hr 97.5 F-98.3 F 75-91 20-24 101-128/53-79 85-100 PHYSICAL EXAM GENERAL: The patient is awake, alert, and fully oriented, in no acute distress. HEAD: Normal with no signs of trauma. EYES: PERRL, extraocular movements intact, sclera anicteric, conjunctiva clear. ENT: Ears normal, nares patent, oropharynx clear without exudates, moist mucous membranes. NECK: Trachea midline, full range of motion, supple. LUNGS: Breath sounds equal, clear to auscultation bilaterally, no wheezes, no crackles, no accessory muscle use. HEART: Regular rate and rhythm, S1, S2 without murmur, rub or gallop. ABDOMEN: Soft, nontender, nondistended, normoactive bowel sounds, no guarding, no rebound, no hepatosplenomegaly, no masses. EXTREMITIES: 2+ pulses, warm, well-perfused, no edema. NEUROLOGICAL: Cranial nerves II through XII grossly intact. Normal speech, gait not observed. PSYCH: Normal mood, normal affect. SKIN: Warm, dry, normal turgor, no rashes or lesions noted. LABS Laboratory Results - last 24 hr 10/16/17 10/16/17 10/16/17 07:15 11:44 17:34 Neutrophils % (Manual) 94.1 H Band Neutrophils % 1.0 Lymphocytes % (Manual) 3.9 L D Monocytes % (Manual) 1 L Eosinophils % (Manual) 0.0 D Basophils % (Manual) 0.0 Myelocytes % (Man) 0 Promyelocytes % (Man) 0 Blast Cells % (Manual) 0 Metamyelocytes 0 Hypochromia 1+ Platelet Estimate Normal Polychromasia 1+ Poikilocytosis 1+ Anisocytosis 1+ Microcytosis 1+ Macrocytosis 0 POC Glucometer 328 277 10/16/17 10/17/17 22:44 06:58 Neutrophils % (Manual) Band Neutrophils % Lymphocytes % (Manual) Monocytes % (Manual) Eosinophils % (Manual) Basophils % (Manual) Myelocytes % (Man) Promyelocytes % (Man) Blast Cells % (Manual) Metamyelocytes Hypochromia Platelet Estimate Polychromasia Poikilocytosis Anisocytosis Microcytosis Macrocytosis POC Glucometer 347 369 HOSPITAL COURSE: Date of Admission:10/13/17 Date of Discharge: 10/17/17 Discharge Summary Reason For Visit: CONGESTIVE HEART FAILURE Current Active Problems Altered mental state (Acute) CHF (congestive heart failure) (Acute) COPD exacerbation (Acute) Controlled diabetes mellitus with nephropathy (Acute) SOB (shortness of breath) (Acute) Sarcoid (Acute) Condition: Improved - Instructions Diet, Activity, Other Instructions: Two prescriptions have been sent to your pharmacy. One is for a prednisone taper which you should start taking tomorrow, Wednesday 10/18. The second is for macrobid which is an antibiotic for your urinary tract infection. You were started on this medication in the hospital. Start with the evening dose tonight. Return to the emergency department for any new or worsening symptoms. Referrals: Whit Fuchs MD [Primary Care Provider] - Disposition: HOME - Home Medications Comprehensive Discharge Medication List: Ambulatory Orders Montelukast Na [Singulair -] 10 mg PO HS 05/02/17 Pregabalin [Lyrica -] 75 mg PO BID 05/02/17 Sennosides [Senna -] 1 tab PO HS 05/02/17 Morphine *Sr* [Ms Contin -] 15 mg PO BID 7 Days #14 tablet.sa MDD 30 05/10/17 Metoclopramide HCl [Reglan] 5 mg PO TID 08/29/17 Nitroglycerin Sublingual [Nitrostat -] 0.4 mg .ROUTE ASDIR PRN 08/29/17 Tiotropium [place] [Spiriva Respimat] 2.5 mcg IH DAILY 08/29/17 Insulin Sliding Scale [Novolog Vial Sliding Scale -] 0 units SQ ACHS 09/06/17 Albuterol 0.083% Nebulizer [place] [Ventolin 0.083% Nebulizer Soln -] 1 amp NEB Q4H PRN amp 09/22/17 Apixaban [Eliquis -] 2.5 mg PO BID 30 Days #60 tablet 09/22/17 Arformoterol Tartrate [Brovana -] 1 amp NEB RBID 30 Days #60 amp 09/22/17 Diltiazem [Cardizem -] 30 mg PO TID 30 Days #90 tablet 09/22/17 Furosemide [Lasix -] 40 mg PO DAILY 30 Days #30 tablet 09/22/17 Lisinopril [Prinivil] 10 mg PO DAILY 30 Days #30 tablet 09/22/17 Omeprazole 40 mg PO HS 30 Days #30 capsule. 09/22/17 Sodium Chloride Nasal [place] [[place] Nasal [place] -] 2 spray NS BID 30 Days # 1 spray 09/22/17 Insulin (Levemir) [Levemir Vial] 40 units SQ HS units 10/05/17 Mag Hydrox/Al Hydrox/Simeth [MAALOX *SUSPENSION* -] 30 ml PO Q6H PRN ml Polyethylene Glycol 3350 [Miralax 119 gm Btl -] 17 gm PO BID bottle 10/05/17 Insulin (Levemir) [Levemir Vial] 45 units SQ AM units 10/17/17 Nitrofurantoin Monohyd/M-Cryst [Macrobid -] 100 mg PO BID #11 capsule 10/17/17 Prednisone See Taper PO ASDIR #21 tablet 10/17/17
[2017-10-17] MEDS ORDERED: FUROSEMIDE 40 MG TABLET (FP) PO SCH (10:00)
[2017-10-17] MEDS ORDERED: LISINOPRIL 10 MG TABLET (FP) PO SCH (10:00)
[2017-10-17] MEDS ORDERED: TIOTROPIUM BROMIDE 18 MCG CAPSULES IH SCH (10:00)
[2017-10-17] MEDS ORDERED: PT OWN MED DRAWER 7, Y5N ONE ×5 (10:56→22:21)
[2017-10-17] MEDS: PREGABALIN 75 MG CAPSULE PO SCH ×2 (10:59→22:58)
[2017-10-17] MEDS: SODIUM CHLORIDE NASAL SPRAY 44 ML BOTTLE NS SCH ×2 (11:00→23:45)
[2017-10-17] MEDS: morphine SO4 SUSTAINED ACTING 15 MG TABLET.SA PO SCH ×2 (11:00→22:52)
[2017-10-17] MEDS: APIXABAN 2.5 MG TABLET PO SCH ×2 (11:06→23:46)
[2017-10-17] MEDS: POLYETHYLENE GLYCOL 3350 119 GM BTL PO SCH ×2 (11:08→22:40)
--- NOTE | 2017-10-17 12:52 | PN ---
Progress Note (short form) - Note Progress Note: Overall appears much better. Less SOB. No CP. Intake & Output 10/14/17 10/15/17 10/16/17 10/17/17 23:59 23:59 23:59 23:59 Intake Total 1140 600 50 Output Total 2009 500 Balance -870 -500 600 50 Weight 161 lb 6 oz 160 lb 168 lb 6.4 oz Last Vital Signs Temp Pulse Resp BP Pulse Ox 97.5 F L 75 20 128/76 99 10/17/17 06:00 10/17/17 06:00 10/17/17 06:00 10/17/17 06:00 10/17/17 07:30 Active Medications Acetaminophen (Tylenol -) 650 mg PO Q4H PRN PRN Reason: PAIN LEVEL 1-5 Al Hydroxide/Mg Hydroxide (Mylanta Oral Suspension -) 30 ml PO Q6H PRN PRN Reason: INDIGESTION Albuterol Sulfate (Ventolin 0.083% Nebulizer Soln -) 1 amp NEB Q4H PRN PRN Reason: SHORT OF BREATH/WHEEZING Apixaban (Eliquis -) 2.5 mg PO BID [facility] Last Admin: 10/17/17 11:06 Dose: 2.5 mg Arformoterol Tartrate (Brovana (Restricted To Pulmonology/Resp) -) 1 amp NEB RBID [facility] Last Admin: 10/17/17 07:30 Dose: 1 amp Diltiazem HCl (Cardizem -) 30 mg PO TID [facility] Last Admin: 10/17/17 07:01 Dose: 30 mg Furosemide (Lasix -) 60 mg PO DAILY [facility] Last Admin: 10/17/17 10:59 Dose: 60 mg Insulin Aspart (Novolog Vial Sliding Scale -) 1 vial SQ ACHS [facility]; Protocol Last Admin: 10/17/17 12:12 Dose: 8 units Insulin Detemir (Levemir Vial) 40 units SQ HS [facility] Last Admin: 10/16/17 23:40 Dose: 40 units Insulin Detemir (Levemir Vial) 45 units SQ AM [facility] Last Admin: 10/17/17 07:00 Dose: 45 units Lisinopril (Prinivil) 10 mg PO DAILY [facility] Last Admin: 10/17/17 10:59 Dose: 10 mg Metoclopramide HCl (Reglan -) 5 mg PO TID [facility] Last Admin: 10/17/17 07:01 Dose: 5 mg Montelukast Sodium (Singulair -) 10 mg PO [facility] Last Admin: 10/16/17 23:37 Dose: 10 mg Morphine Sulfate (Ms Contin -) 15 mg PO BID [facility] Last Admin: 10/17/17 11:00 Dose: 15 mg Nitrofurantoin Macrocrystals (Macrodantin -) 50 mg PO Q6HPO [facility] Last Admin: 10/17/17 12:31 Dose: 50 mg Nitroglycerin (Nitrostat -) 0.4 mg SL ASDIR PRN PRN Reason: chest pain Polyethylene Glycol (Miralax (For Daily Use) -) 17 gm PO BID [facility] Last Admin: 10/17/17 11:08 Dose: Not Given Pregabalin (Lyrica -) 75 mg PO BID [facility] Last Admin: 10/17/17 10:59 Dose: 75 mg Senna (Senna -) 1 tab PO [facility] Last Admin: 10/16/17 23:37 Dose: 1 tab Sodium Chloride ([place] Nasal [place] -) 2 spray NS BID [facility] Last Admin: 10/17/17 11:00 Dose: 2 sprays Tiotropium [place] (Spiriva -) 1 puff IH DAILY [facility] Last Admin: 10/17/17 10:59 Dose: 1 puff Constitutional: Yes: comfortable, NAD Eyes: Yes: WNL HENT: Yes: WNL Neck: Yes: WNL Cardiovascular: Yes: Regular Rate and Rhythm, S1, S2 Respiratory: Yes: few scattered Rhonchi Gastrointestinal: Yes: Normal Bowel Sounds, Soft Extremities: Yes: WNL Edema: No Labs: Laboratory Results - last 24 hr 10/16/17 10/16/17 10/17/17 17:34 22:44 06:58 POC Glucometer 277 347 275 10/17/17 12:10 POC Glucometer 278 Problem List - Problems (1) CHF (congestive heart failure) Code(s): I50.9 - HEART FAILURE, UNSPECIFIED (2) COPD exacerbation Code(s): J44.1 - CHRONIC OBSTRUCTIVE PULMONARY DISEASE W (ACUTE) EXACERBATION (3) SOB (shortness of breath) Code(s): R06.02 - SHORTNESS OF BREATH (4) Acute on chronic respiratory failure with hypoxia and hypercapnia Code(s): J96.21 - ACUTE AND CHRONIC RESPIRATORY FAILURE WITH HYPOXIA; J96.22 - ACUTE AND CHRONIC RESPIRATORY FAILURE WITH HYPERCAPNIA (5) Cardiac sarcoidosis Code(s): 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 (6) Chronic diastolic CHF (congestive heart failure) Code(s): I50.32 - CHRONIC DIASTOLIC (CONGESTIVE) HEART FAILURE (7) DVT (deep venous thrombosis) Code(s): I82.409 - ACUTE EMBOLISM AND THOMBOS UNSP DEEP VN UNSP LOWER EXTREMITY Qualifiers: Laterality: unspecified laterality (8) Diabetes mellitus Code(s): E11.9 - TYPE 2 DIABETES MELLITUS WITHOUT COMPLICATIONS Qualifiers: Diabetes mellitus type: type 2 Diabetes mellitus complication status: without complication (9) ICD (implantable cardioverter-defibrillator) in place Code(s): Z95.810 - PRESENCE OF AUTOMATIC (IMPLANTABLE) CARDIAC DEFIBRILLATOR (10) Interstitial lung disease Code(s): J84.9 - INTERSTITIAL PULMONARY DISEASE, UNSPECIFIED (11) Interstitial pulmonary fibrosis Code(s): J84.10 - PULMONARY FIBROSIS, UNSPECIFIED (12) PHT (pulmonary hypertension) Code(s): I27.20 - PULMONARY HYPERTENSION, UNSPECIFIED (13) Pulmonary sarcoidosis Code(s): D86.0 - SARCOIDOSIS OF LUNG (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 (15) Sarcoidosis Code(s): D86.9 - SARCOIDOSIS, UNSPECIFIED (16) Sarcoidosis of lung Code(s): D86.0 - SARCOIDOSIS OF LUNG (17) Diastolic CHF Code(s): I50.30 - UNSPECIFIED DIASTOLIC (CONGESTIVE) HEART FAILURE Assessment/Plan IMP ACUTE ON CHRONIC HYPOXEMIC RESPIRATORY FAILURE IMPROVING ADVANCED PULMONARY SARCOID/ILD CARDIAC SARCOID PAROXYSMAL ATRIAL TACHYCARDIA OSVALDO OM BIPAP H/O V-TACH S/P ICD DIASTOLIC HF DM HTN H/O DVT ON ELIQUIS PULMONARY HTN COPD PLAN PREDNISONE TAPER INHALED BRONCHODILATORS LASIX SUPPLEMENTAL O2 D/C PLANING Dr Rubio
[2017-10-17 14:30] VITALS: PULSE 83
[2017-10-17] MEDS ORDERED: ALBUTEROL SO4 2.5/IPRATROPIUM 0.5 INH SOL 3 ML VIAL.NEB. NEB ONE (21:00)
--- NOTE | 2017-10-17 21:57 | PN ---
Progress Note, Physician Chief Complaint: SITTING IN BED COMFORTABLE History of Present Illness: DM,COPD,HTN HYPERGLYCEMIA DESPITE HIGH DOSE INSULIN WITH QID NOVOLOG COVERAGE - Current Medication List Current Medications: Active Medications Acetaminophen (Tylenol -) 650 mg PO Q4H PRN PRN Reason: PAIN LEVEL 1-5 Al Hydroxide/Mg Hydroxide (Mylanta Oral Suspension -) 30 ml PO Q6H PRN PRN Reason: INDIGESTION Albuterol Sulfate (Ventolin 0.083% Nebulizer Soln -) 1 amp NEB Q4H PRN PRN Reason: SHORT OF BREATH/WHEEZING Apixaban (Eliquis -) 2.5 mg PO BID [facility] Last Admin: 10/17/17 11:06 Dose: 2.5 mg Arformoterol Tartrate (Brovana (Restricted To Pulmonology/Resp) -) 1 amp NEB RBID [facility] Last Admin: 10/17/17 20:15 Dose: 1 amp Diltiazem HCl (Cardizem -) 30 mg PO TID [facility] Last Admin: 10/17/17 14:31 Dose: 30 mg Furosemide (Lasix -) 60 mg PO DAILY [facility] Last Admin: 10/17/17 10:59 Dose: 60 mg Insulin Aspart (Novolog Vial Sliding Scale -) 1 vial SQ [facility]; Protocol Last Admin: 10/17/17 17:55 Dose: 12 units Insulin Detemir (Levemir Vial) 40 units SQ [facility] Last Admin: 10/16/17 23:40 Dose: 40 units Insulin Detemir (Levemir Vial) 50 units SQ AM [facility] Lisinopril (Prinivil) 10 mg PO DAILY [facility] Last Admin: 10/17/17 10:59 Dose: 10 mg Metoclopramide HCl (Reglan -) 5 mg PO TID [facility] Last Admin: 10/17/17 14:30 Dose: 5 mg Montelukast Sodium (Singulair -) 10 mg PO HS [facility] Last Admin: 10/16/17 23:37 Dose: 10 mg Morphine Sulfate (Ms Contin -) 15 mg PO BID [facility] Last Admin: 10/17/17 11:00 Dose: 15 mg Nitrofurantoin Macrocrystals (Macrodantin -) 50 mg PO Q6HPO [facility] Last Admin: 10/17/17 17:41 Dose: 50 mg Nitroglycerin (Nitrostat -) 0.4 mg SL ASDIR PRN PRN Reason: chest pain Polyethylene Glycol (Miralax (For Daily Use) -) 17 gm PO BID [facility] Last Admin: 10/17/17 11:08 Dose: Not Given Pregabalin (Lyrica -) 75 mg PO BID [facility] Last Admin: 10/17/17 10:59 Dose: 75 mg Senna (Senna -) 1 tab PO HS [facility] Last Admin: 10/16/17 23:37 Dose: 1 tab Sodium Chloride ([place] Nasal [place] -) 2 spray NS BID [facility] Last Admin: 10/17/17 11:00 Dose: 2 sprays Tiotropium [place] (Spiriva -) 1 puff IH DAILY [facility] Last Admin: 10/17/17 10:59 Dose: 1 puff - Objective Vital Signs: Vital Signs Temperature 97.8 F 10/17/17 14:29 Pulse Rate 83 10/17/17 14:29 Respiratory Rate 24 10/17/17 14:29 Blood Pressure 121/79 10/17/17 14:29 O2 Sat by Pulse Oximetry (%) 99 10/17/17 18:57 Constitutional: Yes: Well Nourished Eyes: Yes: EOM Intact HENT: Yes: Normocephalic Neck: Yes: Trachea Midline Cardiovascular: Yes: Regular Rate and Rhythm Respiratory: Yes: SOB, Tachypnea Gastrointestinal: Yes: Normal Bowel Sounds Genitourinary: Yes: WNL Musculoskeletal: Yes: WNL Extremities: Yes: WNL Neurological: Yes: Alert, Oriented Labs: CBC, BMP 10/16/17 07:15 10/16/17 07:15 INR, PTT INR 1.32 (0.82-1.09) H 10/13/17 05:15 Problem List - Problems (1) Controlled diabetes mellitus with nephropathy Code(s): E11.21 - TYPE 2 DIABETES MELLITUS WITH DIABETIC NEPHROPATHY (2) Altered mental state Code(s): R41.82 - ALTERED MENTAL STATUS, UNSPECIFIED (3) CHF (congestive heart failure) Code(s): I50.9 - HEART FAILURE, UNSPECIFIED (4) COPD exacerbation Code(s): J44.1 - CHRONIC OBSTRUCTIVE PULMONARY DISEASE W (ACUTE) EXACERBATION (5) SOB (shortness of breath) Code(s): R06.02 - SHORTNESS OF BREATH (6) Sarcoid Code(s): D86.9 - SARCOIDOSIS, UNSPECIFIED (7) SHERRI (acute kidney injury) Code(s): N17.9 - ACUTE KIDNEY FAILURE, UNSPECIFIED (8) Abdominal pain Code(s): R10.9 - UNSPECIFIED ABDOMINAL PAIN (9) Acute on chronic respiratory failure with hypoxia and hypercapnia Code(s): J96.21 - ACUTE AND CHRONIC RESPIRATORY FAILURE WITH HYPOXIA; J96.22 - ACUTE AND CHRONIC RESPIRATORY FAILURE WITH HYPERCAPNIA Assessment/Plan Current Active Problems Altered mental state (Acute) CHF (congestive heart failure) (Acute) COPD exacerbation (Acute) Controlled diabetes mellitus with nephropathy (Acute) SOB (shortness of breath) (Acute) Sarcoid (Acute) DIABETES MELLITUS HYPERGLYCEMIA INSULIN RESISTANT Laboratory Results - last 24 hr 10/16/17 10/17/17 10/17/17 22:44 06:58 12:10 POC Glucometer [phone] PLAN: BGM QID NOVOLOG INSULIN DOSES LEVEMIR 50 UNITS AM LEVEMIR 45 UNITS HS HOLD DOSE OF LEVEMIR IF SUGAR BELOW 100MG/DL
[2017-10-17] MEDS: SENNOSIDES 8.6MG TABLET (FP) PO SCH (22:58)
[2017-10-17] MEDS: INSULIN (LEVEMIR) 100 UNITS/ML UNITS SQ SCH (22:59)
[2017-10-17] MEDS: MONTELUKAST NA 10 MG TABLET PO SCH (22:59)
--- NOTE | 2017-10-17 23:57 | HOSP ---
Subjective - Review of Symptoms Events since last encounter: Hospitalist Encounter Notified by RN that while the patient was being discharged, she reported having CP and needing a neb treatment. Troponin ordered and drawn- neg <0.02 Patient refused EKG Patient reports CP resolved post neb treatment, she currently has no complaints VSS- T 98.0, P 83, R 18, BP 130/79, spo2 100% on humidifed O2 Patient requests to go home RN to arrange ambulance transport, condition improved. Cardiovascular: Yes: Chest Pain Physical Examination Vital Signs: Vital Signs Temperature 97.8 F 10/17/17 14:29 Pulse Rate 83 10/17/17 14:29 Respiratory Rate 24 10/17/17 14:29 Blood Pressure 121/79 10/17/17 14:29 O2 Sat by Pulse Oximetry (%) 99 10/17/17 18:57 Constitutional: Yes: Well Nourished, No Distress, Calm Eyes: Yes: WNL, Conjunctiva Clear, EOM Intact, PERRL HENT: Yes: WNL, Atraumatic, Normocephalic Neck: Yes: WNL, Supple, Trachea Midline Cardiovascular: Yes: Regular Rate and Rhythm, S1, S2 Respiratory: Yes: Diminished, On Nasal O2, Rhonchi Gastrointestinal: Yes: Soft, Abdomen, Obese Peripheral Pulses WNL: Yes Neurological: Yes: WNL, Alert, Oriented ...Motor Strength: WNL Psychiatric: Yes: WNL, Alert, Oriented Labs: CBC, BMP 10/16/17 07:15 10/16/17 07:15 Troponin, BNP 10/17/17 21:00 Troponin I < 0.02
[2017-10-18 01:34] VITALS: BP 130/79; TEMP 98
[2017-10-18] MEDS ORDERED: INSULIN (LEVEMIR) 100 UNITS/ML UNITS SQ SCH (07:00)
== END 2017-10-18 02:00 | disposition home health service (06) | DRG 133 ==
LOC: JER 04:51 → JERBED 06:04 → J4W 08:05 → J5S 10-16 13:21
PROVIDERS: ADMIT Family Medicine; ATTEND Nurse Practitioner Acute Care
DX: J96.21 Acute and chronic respiratory failure with hypoxia (principal); J96.22 Acute and chronic respiratory failure with hypercapnia; I50.33 Acute on chronic diastolic (congestive) heart failure; I48.91 Unspecified atrial fibrillation; I11.0 Hypertensive heart disease with heart failure; I27.20 Pulmonary hypertension, unspecified; D86.0 Sarcoidosis of lung; J84.10 Pulmonary fibrosis, unspecified; I47.1 Supraventricular tachycardia; J44.1 Chronic obstructive pulmonary disease with (acute) exacerbation; Z99.81 Dependence on supplemental oxygen; N39.0 Urinary tract infection, site not specified; R55 Syncope and collapse; E11.40 Type 2 diabetes mellitus with diabetic neuropathy, unspecified; E11.21 Type 2 diabetes mellitus with diabetic nephropathy; E87.2 Acidosis; Z87.891 Personal history of nicotine dependence; B19.20 Unspecified viral hepatitis C without hepatic coma; G47.33 Obstructive sleep apnea (adult) (pediatric); K21.9 Gastro-esophageal reflux disease without esophagitis; Z79.4 Long term (current) use of insulin; Z95.810 Presence of automatic (implantable) cardiac defibrillator; M54.5 Low back pain; Z86.718 Personal history of other venous thrombosis and embolism; Z79.01 Long term (current) use of anticoagulants; E66.9 Obesity, unspecified; R41.82 Altered mental status, unspecified; Z68.32 Body mass index [BMI] 32.0-32.9, adult
CPT/HCPCS: 36415; 36600; 70450-TC; 71045-TC-FY; 80048; 80053; 81003; 81015; 82550; 82803; 82947; 82962; 83036; 83605; 83735; 83880; 84100; 84484; 85025; 85610; 87086; 87186; 93005; 93010; 94640; 94660; 94761; 97116-GP; 97161-GP; 99283-25; J7620

== ENCOUNTER 2017-10-29 17:05 | Inpatient (IN) | payer OTHER ==
--- NOTE | 2017-10-29 17:54 | PDOC ---
History of Present Illness - General Chief Complaint: Lightheaded Stated Complaint: DIZZY Time Seen by Provider: 10/29/17 17:43 - History of Present Illness Initial Comments: 10/29/17 17:54 Patient is a 62 year old female with a significant past medical history of Dementia, CHF, Deep Vein Thrombosis, HTN, Hyperlipidemia, Pulmonary Hypertension , Asthma, COPD, Previously Intubated, Sleep Apnea, Pulmonary Fibrosis, O2 Dependent, GERD, Hepatitis C, Anemia, Chronic low back pain,Sarcoidosis ( cardiac and pulmonary), Diabetes Mellitus, who presents to the ED after waking up with severely decreased vision, and constant dizziness, sensation of movement. She was discharged yesterday from [facility] for diverticulitis. 10/29/17 20:43 Timing/Duration: unsure Past History - Past Medical History Allergies/Adverse Reactions: Allergies Allergy/AdvReac Type Severity Reaction Status Date / Time medroxyprogesterone acetate Allergy Severe stepehns Verified 10/18/17 22:58 [From Depo-Provera] josé syndrome amoxicillin trihydrate Allergy Verified 10/18/17 22:58 [From Augmentin] aspirin Allergy Verified 10/18/17 22:58 azithromycin [From Zithromax] Allergy Dewey Verified 10/18/17 22:58 José syndrome bacitracin Allergy Verified 10/18/17 22:58 ciprofloxacin HCl Allergy Verified 10/18/17 22:58 [From Cipro] clavulanic acid Allergy Verified 10/18/17 22:58 [From Augmentin] codeine [Codeine] Allergy Verified 10/18/17 22:58 Iodinated Contrast- Oral and Allergy Verified 10/18/17 22:58 IV Dye [IV Dye, Iodine Containing Contrast ] ketorolac tromethamine Allergy Verified 10/18/17 22:58 [From Toradol] levofloxacin [From Levaquin] Allergy Verified 10/18/17 22:58 metronidazole [From Flagyl] Allergy Verified 10/18/17 22:58 nalbuphine HCl [From Nubain] Allergy CYANOSIS Verified 10/18/17 22:58 potassium clavulanate Allergy Verified 10/18/17 22:58 [From Augmentin] Shellfish Allergy Verified 10/18/17 22:58 shellfish derived Allergy Verified 10/18/17 22:58 sulfamethoxazole Allergy Verified 10/18/17 22:58 [From Bactrim] trimethoprim [From Bactrim] Allergy Verified 10/18/17 22:58 Home Medications: Ambulatory Orders Albuterol 2.5/Ipratropium 0.5 [Duoneb -] 1 amp NEB RQID amp 10/20/17 Apixaban [Eliquis -] 2.5 mg PO BID tablet 10/20/17 Arformoterol Tartrate [Brovana -] 1 amp NEB RBID amp 10/20/17 Aztreonam [Azactam (Restricted To Id) -] 2 gm IVPB Q8H vial 10/20/17 Clindamycin [Cleocin -] 600 mg PO Q8H #42 capsule 10/20/17 Diltiazem [Cardizem -] 30 mg PO TID tablet 10/20/17 Diltiazem [Cardizem -] 30 mg PO TID tablet 10/20/17 Furosemide [Lasix -] 60 mg PO DAILY tablet 10/20/17 Heparin - 5,000 unit SQ TID vial 10/20/17 Insulin (Levemir) [Levemir Vial] 38 units SQ HS units 10/20/17 Insulin (Levemir) [Levemir Vial] 45 units SQ HS #45 units 10/20/17 Insulin (Novolog) [Novolog -] 0 units SQ ACHS units 10/20/17 Lisinopril [Prinivil] 10 mg PO DAILY tablet 10/20/17 Mag Hydrox/Al Hydrox/Simeth [MAALOX *SUSPENSION* -] 30 ml PO Q6H PRN ml Metoclopramide HCl [Reglan -] 5 mg PO TID tablet 10/20/17 Montelukast Na [Singulair -] 10 mg PO HS tablet 10/20/17 Morphine *Sr* [Ms Contin -] 15 mg PO BID #1 tablet.sa MDD 2 10/20/17 Nitroglycerin Sublingual [Nitrostat -] 0.4 mg SL ASDIR PRN tab 10/20/17 Pantoprazole Sodium [Protonix -] 40 mg PO HS tablet.ec 10/20/17 Polyethylene Glycol 3350 [Miralax 119 gm Btl -] 17 gm PO BID bottle 10/20/17 Pregabalin [Lyrica -] 75 mg PO BID #1 capsule MDD 2 10/20/17 Sennosides [Senna -] 1 tab PO HS tablet 10/20/17 Sodium Chloride Nasal [place] [[place] Nasal [place] -] 2 spray NS BID spray Sodium Chloride [Normal Saline -] 83 ml IV ASDIR #1000 infus.bag 10/20/17 predniSONE [Deltasone -] 10 mg PO DAILY tablet 10/20/17 predniSONE [Deltasone -] 20 mg PO DAILY tablet 10/20/17 predniSONE [Deltasone -] 40 mg PO DAILY tablet 10/20/17 Anemia: Yes Asthma: Yes Cancer: No Cardiac Disorders: Yes (A-Fib) CVA: No COPD: Yes (scaradosis) CHF: Yes Dementia: No Diabetes: Yes GI Disorders: Yes (Acid reflux, Gastroparesis, GERD) Disorders: Yes (Urinary retention) HTN: Yes Hypercholesterolemia: Yes Liver Disease: Yes (Hepatitis C) Seizures: No Thyroid Disease: No - Surgical History Abdominal Surgery: Yes Appendectomy: No Cardiac Surgery: Yes (PPM-D) Cholecystectomy: No Gastric Stapling: No Lung Surgery: No Neurologic Surgery: Yes (Spinal Sx w/LLE nerve damage) Orthopedic Surgery: Yes (Laminectomy x2 in 2008 in [place]) - Immunization History Immunization Up to Date: Yes - Suicide/Smoking/Psychosocial Hx Smoking Status: No Smoking History: Never smoked Have you smoked in the past 12 months: No Number of Cigarettes Smoked Daily: 0 Cigars Per Day: 0 Hx Alcohol Use: No Drug/Substance Use Hx: No Substance Use Type: None Hx Substance Use Treatment: No Review of Systems - Review of Systems Able to Perform ROS?: Yes Is the patient limited Albanian proficient: No Constitutional: No: Symptoms Reported HEENTM: Yes: Blurred Vision, Recent change in vision, Double Vision Respiratory: No: Symptoms reported Cardiac (ROS): No: Symptoms Reported ABD/GI: No: Symptoms Reported : No: Symptoms Reported Musculoskeletal: No: Symptoms Reported Integumentary: No: Symptoms Reported All Other Systems: Reviewed and Negative *Physical Exam - Vital Signs Last Vital Signs Temp Pulse Resp BP Pulse Ox 98.6 F 106 H 20 100/76 99 10/29/17 17:05 10/29/17 17:05 10/29/17 17:05 10/29/17 17:05 10/29/17 17:05 - Physical Exam General Appearance: Yes: Nourished, Mild Distress, Obese HEENT: positive: EOMI, Normal ENT Inspection. negative: ANGEL (non-reactive pupils) Respiratory/Chest: positive: Lungs Clear, Normal Breath Sounds. negative: Chest Tender, Respiratory Distress Cardiovascular: positive: Regular Rhythm, S1, S2, Tachycardia Gastrointestinal/Abdominal: positive: Normal Bowel Sounds, Tender (mild diffuse) , Flat, Soft Neurologic: positive: Fully Oriented, Alert, Normal Mood/Affect, Other (ataxia on finger to nose test ). negative: Finger to Nose ED Treatment Course - LABORATORY CBC & Chemistry Diagram: 10/29/17 18:17 10/29/17 18:17 Medical Decision Making - Medical Decision Making 10/29/17 20:54 PAtient cannot 10/29/17 20:55 Patient is not a TPA candidate as she presented with her symptoms when she woke up this morning. Patient cannot get MRI as she has an old pacemaker model Patient refuses CTA as she states to be allergic to IV contrast, gets short of breath. . Suspecting Posterior stroke/cerebellar stroke. Will investigate source of fever cxr and UA pending. Will admit to ICU Dr. Watts consulted for neurology. EKG: Sinus rhythm 10/29/17 21:57 imipenem and vanco *DC/Admit/Observation/Transfer Diagnosis at time of Disposition: Fever, Abdominal pain, Hypotension - Discharge Dispostion Condition at time of disposition: Stable Decision to Admit order: Yes - Referrals - Patient Instructions - Post Discharge Activity
--- NOTE | 2017-10-29 17:55 | PDOC ---
Attending Attestation - HPI HPI: 10/29/17 18:14 The patient is a year old female, with a significant past medical history of Dementia, CHF, Deep Vein Thrombosis, HTN, Hyperlipidemia, Pulmonary Hypertension , Asthma, COPD, Previously Intubated, Sleep Apnea, Pulmonary Fibrosis, O2 Dependent, GERD, Hepatitis C, Anemia, Chronic low back pain,Sarcoidosis ( cardiac and pulmonary), Diabetes Mellitus, who presents to the emergency department with, loss of vision and dizziness. She reports of associated shortness of breath and low blood pressure. Allergies: Amoxicillin, aspirin, bacitracin, ciprofloxacin, clavulanic acid, codeine, ketorolac, levofloxacin, metronidazole, nalbuphine Past surgical history: PPMD, Back. Social history: Former smoker. Denies EtOH use and recreational drug use. Primary Care Physician: Dr. Fuchs Contract Project Manager: Dr. Lockhart - Medical Decision Making 10/29/17 6:03pm Call placed to Dr. Watts's answering service, awaiting call back. 19:[address] Watts, case was discussed with resident. <Chas Sorensen - Last Filed: 10/29/17 19:08> - Resident Resident Name: Jose Preciado - ED Attending Attestation I have performed the following: I have examined & evaluated the patient, The case was reviewed & discussed with the resident, I agree w/resident's findings & plan, Exceptions are as noted - Physicial Exam PE: 10/30/17 01:23 Patient lethargic but easily arousable, obese, in mild distress; Normocephalic, atraumatic EOMI, no nystagmus, able to tell the number of fingers at 12 inches bilaterally No carotid bruits Distant breath sounds bilaterally with diffuse rhonchi RRR, 2/6 ernestine Abdomen is soft, nondistended, minimal lower abdominal tenderness to deep palpation without guarding or rebound Stage I to 2 sacral decubitus with excoriated and broken skin with dressing applied. Cranial nerves II through XII grossly intact; no pronation drift; abnormal finger to nose on the left; + dysmetria; unable to test for Babinski bilaterally ; - Medical Decision Making 10/30/17 01:26 Patient is an ill appearing 62-year-old female with multiple comorbidities who presents to the ER 1 day post discharge from [facility] where she was treated for diverticulitis with transient hypotension and signs and symptoms of posterior fossa insufficiency. Patient is also noted to be febrile and hyperglycemic. CT of head shows no evidence of acute intracranial pathology. MRI is contraindicated due to patient's altered model pacemaker. Patient refuses CTA of the neck and brain due to a long-standing contrast ALLERGY. Blood and urine cultures are been obtained. Urinalysis reveals 26 WBCs per high-power field. Chest x-ray reveals persistent cardiomegaly, dual chamber pacemaker, increased interstitial markings which are unchanged from previous. Patient is not a TPA candidate given the onset of symptoms of more than 9 hours prior to arrival. CBC reveals no significant leukocytosis. CMP reveals mildly elevated BUN to creatinine ratio with hypoerglycemia but no increased anion gap ; Dr. Watts of neurology was consulted, evaluated the patient at bedside and recommended repeat CT in the a.m. as the patient's persist, treatment of hyperglycemia, IV fluid resuscitation and broad-spectrum antibiotics. Given the complexity the presentation, numerous organ systems involved, patient will be admitted to the ICU further treatment. <Ian Winters - Last Filed: 10/30/17 01:36> Attestations - Attestations 10/29/17 18:14 Documentation prepared by Chas Sorensen, acting as medical field representative for Ian Winters MD. <Chas Sorensen - Last Filed: 10/29/17 19:08>
[2017-10-29 18:59] LABS: ALBUMIN 2.6 g/dl (3.4-5.0); ANION GAP 8 (8-16); BILIRUBIN,TOTAL 0.2 mg/dL (0.2-1.0); BLOOD UREA NITROGEN 24 mg/dL (7-18); CALCIUM 8.4 mg/dL (8.5-10.1); CHLORIDE 96 mmol/L (98-107); CO2 34 mmol/L (21-32); CREATININE 0.9 mg/dL (0.55-1.02); POTASSIUM 4.3 mmol/L (3.5-5.1); SGOT/AST 19 U/L (15-37); SGPT/ALT 21 U/L (12-78); SODIUM 138 mmol/L (136-145); TOT PROT 6.6 g/dl (6.4-8.2)
[2017-10-29 19:00] LABS: ALK PHOS 148 U/L (45-117)
[2017-10-29 19:01] LABS: GLUCOSE,RANDOM 381 mg/dL (74-106)
[2017-10-29 19:15] LABS: BASO % 0.6 % (0-2.0); HEMATOCRIT 30.1 % (32.4-45.2); HEMOGLOBIN 9.4 GM/dL (10.7-15.3); MCH 26.9 pg (25.7-33.7); MCHC 31.3 g/dl (32.0-36.0); MEAN PLT VOLUME 7.5 fl (7.5-11.1); MONO % 1.5 % (3.8-10.2); NEUT % 80.9 % (42.8-82.8); PLATELET COUNT 335 K/MM3 (134-434); RDW 18.3 % (11.6-15.6)
[2017-10-29] MEDS ORDERED: ACETAMINOPHEN 1000 MG/100 ML VIAL (NON FORMULARY) IVPB ONE (19:32)
[2017-10-29] MEDS ORDERED: SODIUM CHLORIDE 1,000 ML IV STA (19:43)
[2017-10-29] MEDS ORDERED: ACETAMINOPHEN INJECTION 100 ML IVPB ONE (19:46)
[2017-10-29 21:10] LABS: ANISOCYTOSIS 2+; MACROCYTOSIS 1+; OVALOCYTE 1+
[2017-10-29 21:11] LABS: PLATELET ESTIMATE ADEQUATE
[2017-10-29 21:12] LABS: URINE APPEARANCE CLEAR; URINE BILIRUBIN NEGATIVE (<2.0 mg/dL); URINE COLOR LTYELLOW; URINE GLUCOSE (UA) 3+ (NEGATIVE); URINE KETONE NEGATIVE (NEGATIVE); URINE LEUK ESTERASE TRACE (NEGATIVE); URINE NITRITE NEGATIVE (NEGATIVE); URINE PROTEIN NEGATIVE (NEGATIVE); URINE UROBILINOGEN NEGATIVE mg/dL (0.2-1.0)
--- NOTE | 2017-10-29 21:27 | CONSULT ---
Consult - text type - Consultation Consultation Note: NEUROLOGY CONSULTATION is greatly appreciated: Chart reviewed, patient examined with her daughter at the bedside. Discussed with Dr. Preciado. This 62 yo RH woman lives with her daughter. Complicated PMH of DM, HTN,, cardiopulmary sarcoidosis, COPD/Asthma (O2 dependent and steroid dependent), Hep C, anemia, dementia and seizure disorder. AFib- on eloquis. S/p LS laminectomes > 20 years ago with progressive LE weakness. Hasn't walked in > 6 years. Has electric W/C and requires 2 family members to transfer bed to W/C. Recently hospitalized here and transferred to [facility] for "seizures" and diverticular disease. D/Blu to home yesterday. Around 12 noon today (seated in W/C) she complained of blurred vision and dizziness. Family found BP of 70 systolic. BIBA. Now BP 100/60 ocjav=[id number]. Low grade temps. WBC= 10 K. Glu= 381 mg% NEVAEH: Neck supple. Neg Kernig's. No bruits. Cor rapid/reg? No edema NEURO: Lethargic but arousable. Follows command intermittently Sparse fluent speech. Full wilhelm and EOM's when fully cooperative. No facial weakness. + volitional tongue mov'ts. Gag present. Elevates both arms without drift. Symmetrical grasps. Normal [employer]. Areflexic in the legs. Plantars silent. Moves right leg > left but cannot elevate vs gravity. Feels pinch in the calves but not vibration. IMP: Cannot exclude posterior fossa ischemia but more likely, diffuse cerebral hypoperfusion due to hypotension. Uncertain etiology but would consider shock/sepsis first as its treatment would be most emergent at this time. SUGGEST: Admit ICU. IV hydration, blood cultures, empirical antibiotics. Rx hyperglycemia Tox screen Repeat CT in AM if symptoms persist. Thank you very much, Zev Watts MD
[2017-10-29] MEDS ORDERED: IMIPENEM/CILASTATIN SODIUM 500 MG in SODIUM CHLORIDE 100 ML IV ONE (21:31)
[2017-10-29] MEDS ORDERED: VANCOMYCIN 1,250 MG in DEXTROSE 5%-WATER - 250 ML IVPB ONE (21:31)
[2017-10-29 22:27] LABS: GRANULAR CASTS 1 /lpf; URINE BACTERIA RARE /hpf (NONE SEEN); URINE HYALINE CAST 4 /lpf; URINE MUCUS RARE
--- NOTE | 2017-10-29 22:46 | CONSULT ---
Consultation: REQUESTING PROVIDER: CONSULT REQUEST: We have been asked to medically evaluate this patient for ( specify). HISTORY OF PRESENT ILLNESS: This 62 yo F with PMH of recent admission to [facility] for medical treatment of diverticulitis (dcd yesterday on PO abx), DM, HTN, cardiopulmary sarcoidosis s/ p pacemaker, HFPEF, AFib- on eloquis, COPD/Asthma (O2 dependent and steroid dependent), Hep C, anemia, mild dementia, seizure d/o, LS laminectomes > 20 years ago with progressive LE weakness, wheelchair bound x 6 yrs, who presents today due to dizziness, blurry vision and mild confusion. According to daughter who takes care of patient, she woke up feeling dizzy and slightly nauseous. she tolerated several meals w/o vomiting but complained of mild abd discomfort. her dizziness progressed and she complained of double vision and lethargy, her BP at home was 70 systolic. She denies cp, cough, sob, palpitations, dysuria, diarrhea, melena. In ED her BP was 100/60, pulse 105 and rectal temp 106. She has no leukocytosis and mild hyperglycemia 381 w/o gap or ketones. CT head was unremarkable for acute pathology. Not MRI candidate due to pacemaker. Patient was evaluated by Dr Watts who did not detect any focal neuro deficits and suggested that her symptoms are likely due to a drop in BP rather than CVA. Patient was given 1L NS in ED and returned to baseline mental status, was aa0 x3 , mildly lethargic, hemodynamically stable, NAD. States she frequently gets dizzy when her blood pressure meds bring down her BP too much. Patient admitted to ICU due to plethora of comorbidities, suspicion of posterior circulation stroke, low grade Rectal fever 100.6, chronically unattractive cxr and 32 wbcs found on UA with trace leuk est. REVIEW OF SYSTEMS: CONSTITUTIONAL: Absent: fever, chills, diaphoresis HEENT: Absent: rhinorrhea, nasal congestion, throat pain CARDIOVASCULAR: Absent: chest pain, syncope, palpitations, peripheral edema RESPIRATORY: Absent: cough, shortness of breath, orthopnea GASTROINTESTINAL: Absent: nausea, vomiting, diarrhea, constipation, melena, hematochezia GENITOURINARY: Absent: dysuria, flank pain MUSCULOSKELETAL: Absent: myalgia, arthralgia SKIN: Absent: rash, itching, pallor HEMATOLOGIC/IMMUNOLOGIC: Absent: frequent infections ENDOCRINE: Absent: heat intolerance, cold intolerance NEUROLOGIC: Absent: headache, seizure, bladder or bowel incontinence PSYCHIATRIC: Absent: anxiety, depression PHYSICAL EXAMINATION Vital Signs - 24 hr 10/29/17 10/29/17 17:05 18:29 Temperature 98.6 F 100.6 F H Pulse Rate 106 H Respiratory 20 Rate Blood Pressure 100/76 O2 Sat by Pulse 99 Oximetry (%) GENERAL: Awake, alert, and fully oriented, in no acute distress, mildly lethargic . HEAD: Normal with no signs of trauma. EYES: Pupils equal, round and reactive to light, extraocular movements intact, sclera anicteric, conjunctiva clear. No lid lag. EARS, NOSE, THROAT: Moist mucous membranes. NECK: supple LUNGS: Breath sounds equal, clear to auscultation bilaterally HEART: tachy rate and regular rhythm, normal S1 and S2 grade 3 systolic ejection murmur best heard at L upper sternal boarder, occasional premature beats. ABDOMEN: Soft, diffusely moderately tender, slightly distended, normoactive bowel sounds, no guarding, no rebound, R subcutaneous mass describes as an analgesic pump MUSCULOSKELETAL: No CVA tenderness. UPPER EXTREMITIES: 2+ pulses, warm, well-perfused. No peripheral edema. LOWER EXTREMITIES: 2+ pulses, warm, well-perfused. diffuse b/l le tenderness. No peripheral edema. NEUROLOGICAL: Cranial nerves II-XII intact. Normal speech. muscle strenght 5/5 in upper extremities, 4/5 rle, 0/5 lle (chronic) sensation equal in face and UEs but diminished in LLE. diminished patellar reflexes b.l. slight b/l equal dysmetria with finget to nose. PSYCHIATRIC: Cooperative. Good eye contact. Appropriate mood and affect. SKIN: Warm, dry Laboratory Results - last 24 hr 10/29/17 10/29/17 10/29/17 18:17 18:17 19:54 WBC 10.0 RBC 3.50 L Hgb 9.4 L Hct 30.1 L D MCV 86.0 MCH 26.9 MCHC 31.3 L RDW 18.3 H Plt Count 335 D MPV 7.5 Absolute Neuts (auto) 8.1 Total Counted 100 Neutrophils % 80.9 Neutrophils % (Manual) 85.0 H Lymphocytes % 17.0 D Lymphocytes % (Manual) 12.0 Monocytes % 1.5 L Monocytes % (Manual) 2 L Eosinophils % 0.0 Eosinophils % (Manual) 1.0 D Basophils % 0.6 D Nucleated RBC % 0 Hypochromia 2+ Platelet Estimate Adequate Platelet Comment No clumping noted Anisocytosis 2+ Microcytosis 1+ Macrocytosis 1+ Ovalocytes 1+ Schistocytes 1+ Sodium 138 Potassium 4.3 Chloride 96 L Carbon Dioxide 34 H Anion Gap 8 BUN 24 H Creatinine 0.9 Creat Clearance w eGFR > 60 Random Glucose 381 H* Lactic Acid 1.2 Calcium 8.4 L Total Bilirubin 0.2 AST 19 ALT 21 Alkaline Phosphatase 148 H D Total Protein 6.6 Albumin 2.6 L Urine Color Urine Appearance Urine pH Ur Specific [place] Urine Protein Urine Glucose (UA) Urine Ketones Urine Blood Urine Nitrite Urine Bilirubin Urine Urobilinogen Ur Leukocyte Esterase Urine WBC (Auto) Urine RBC (Auto) Urine Bacteria Hyaline Casts Granular Casts Urine Mucus 10/29/17 20:47 WBC RBC Hgb Hct MCV MCH MCHC RDW Plt Count MPV Absolute Neuts (auto) Total Counted Neutrophils % Neutrophils % (Manual) Lymphocytes % Lymphocytes % (Manual) Monocytes % Monocytes % (Manual) Eosinophils % Eosinophils % (Manual) Basophils % Nucleated RBC % Hypochromia Platelet Estimate Platelet Comment Anisocytosis Microcytosis Macrocytosis Ovalocytes Schistocytes Sodium Potassium Chloride Carbon Dioxide Anion Gap BUN Creatinine Creat Clearance w eGFR Random Glucose Lactic Acid Calcium Total Bilirubin AST ALT Alkaline Phosphatase Total Protein Albumin Urine Color Ltyellow Urine Appearance Clear Urine pH 6.0 Ur Specific [place] 1.020 Urine Protein Negative Urine Glucose (UA) 3+ H Urine Ketones Negative Urine Blood Negative Urine Nitrite Negative Urine Bilirubin Negative Urine Urobilinogen Negative Ur Leukocyte Esterase Trace Urine WBC (Auto) 26 Urine RBC (Auto) 1 Urine Bacteria Rare Hyaline Casts 4 Granular Casts 1 Urine Mucus Rare Active Medications Generic Name Dose Route Start Last Admin Trade Name Freq PRN Reason Stop Dose Admin Vancomycin HCl 1,250 mg/ 250 mls @ 250 mls/2 hr 10/29/17 21:31 Dextrose IVPB 10/29/17 23:30 ONCE ONE Protocol ASSESSMENT/PLAN: This 62 yo F with PMH of recent admission to [facility] for medical treatment of diverticulitis (dcd yesterday on PO abx), DM, HTN, cardiopulmary sarcoidosis s/ p pacemaker, HFPEF, AFib- on eloquis, COPD/Asthma (O2 dependent and steroid dependent), Hep C, anemia, mild dementia, seizure d/o, LS laminectomes > 20 years ago with progressive LE weakness, wheelchair bound x 6 yrs, who presents today due to dizziness, blurry vision and mild confusion. Admitted to ICU due to possibility of rapid deterioration *Hypotension, possibly due to sepsis vs arrythmia *dizziness/diplopia -mild hypotension resolved, given 1 L ivf; would give home PO lasix tomorrow morning if BP systolic >+ 120. if still on the low side would hold; hold further IVF -possible diverticulitis flare up although cbc is unimpressive and rectal low grade fever 100.6 is nonspecific. has mild abd tenerness. could be residual symptoms from recent flareup -Imipenem, Vanco -abd/pelvis CT -Neuro findings nonfocal, likely due to transient hypotension, Neuro consult appreciated. 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 Thank you for this consultative opportunity. Likely downgrade to floor in the morning meds need to be reconciled with patients pharmacy in the AM Problem List - Problems (1) Abdominal pain Code(s): R10.9 - UNSPECIFIED ABDOMINAL PAIN (2) Fever Code(s): R50.9 - FEVER, UNSPECIFIED (3) Hypotension Code(s): I95.9 - HYPOTENSION, UNSPECIFIED (4) Altered mental state Code(s): R41.82 - ALTERED MENTAL STATUS, UNSPECIFIED Qualifiers: Altered mental status type: unspecified Qualified Code(s): R41.82 - Altered mental status, unspecified (5) COPD (chronic obstructive pulmonary disease) Code(s): J44.9 - CHRONIC OBSTRUCTIVE PULMONARY DISEASE, UNSPECIFIED (6) Cardiac sarcoidosis Code(s): 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 (7) Chronic diastolic CHF (congestive heart failure) Code(s): I50.32 - CHRONIC DIASTOLIC (CONGESTIVE) HEART FAILURE (8) Chronic low back pain Code(s): M54.5 - LOW BACK PAIN; G89.29 - OTHER CHRONIC PAIN (9) Controlled diabetes mellitus with nephropathy Code(s): E11.21 - TYPE 2 DIABETES MELLITUS WITH DIABETIC NEPHROPATHY (10) Diabetes mellitus Code(s): E11.9 - TYPE 2 DIABETES MELLITUS WITHOUT COMPLICATIONS Qualifiers: Diabetes mellitus type: type 2 Diabetes mellitus complication status: without complication (11) Diverticulitis Code(s): K57.92 - DVTRCLI OF INTEST, PART UNSP, W/O PERF OR ABSCESS W/O BLEED (12) ICD (implantable cardioverter-defibrillator), dual, in situ Code(s): Z95.810 - PRESENCE OF AUTOMATIC (IMPLANTABLE) CARDIAC DEFIBRILLATOR (13) Interstitial lung disease Code(s): J84.9 - INTERSTITIAL PULMONARY DISEASE, UNSPECIFIED (14) Interstitial pulmonary fibrosis Code(s): J84.10 - PULMONARY FIBROSIS, UNSPECIFIED (15) Multifocal atrial tachycardia Code(s): I47.1 - SUPRAVENTRICULAR TACHYCARDIA (16) Obstructive sleep apnea Code(s): G47.33 - OBSTRUCTIVE SLEEP APNEA (ADULT) (PEDIATRIC) (17) Oxygen dependent Code(s): Z99.81 - DEPENDENCE ON SUPPLEMENTAL OXYGEN (18) PHT (pulmonary hypertension) Code(s): I27.20 - PULMONARY HYPERTENSION, UNSPECIFIED (19) Pulmonary sarcoidosis Code(s): D86.0 - SARCOIDOSIS OF LUNG (20) Rapid atrial fibrillation Code(s): I48.91 - UNSPECIFIED ATRIAL FIBRILLATION (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 Code(s): 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 (22) Sarcoidosis Code(s): D86.9 - SARCOIDOSIS, UNSPECIFIED (23) Sarcoidosis of lung Code(s): D86.0 - SARCOIDOSIS OF LUNG (24) Seizure Code(s): R56.9 - UNSPECIFIED CONVULSIONS (25) Sinus tachycardia Code(s): R00.0 - TACHYCARDIA, UNSPECIFIED (26) Systemic inflammatory response syndrome (SIRS) Code(s): R65.10 - SIRS OF NON-INFECTIOUS ORIGIN W/O ACUTE ORGAN DYSFUNCTION (27) Asthma Code(s): J45.909 - UNSPECIFIED ASTHMA, UNCOMPLICATED (28) Back pain Code(s): M54.9 - DORSALGIA, UNSPECIFIED Qualifiers: Back pain location: low back pain Chronicity: acute Back pain laterality : bilateral Sciatica presence: without sciatica Qualified Code(s): M54.5 - Low back pain (29) IDDM (insulin dependent diabetes mellitus) Code(s): E11.9 - TYPE 2 DIABETES MELLITUS WITHOUT COMPLICATIONS; Z79.4 - SNF (CURRENT) USE OF INSULIN Visit type - Emergency Visit Emergency Visit: Yes ED Registration Date: 10/29/17 Care time: The patient presented to the Emergency Department on the above date and was hospitalized for further evaluation of their emergent condition. - New Patient This patient is new to me today: Yes Date on this admission: 10/30/17 - Critical Care Critical Care patient: Yes Total Critical Care Time (in minutes): 45 Critical Care Statement: The care of this patient involved high complexity decision making to prevent further life threatening deterioration of the patient 's condition and/or to evaluate & treat vital organ system(s) failure or risk of failure.
--- NOTE | 2017-10-29 22:59 | PN ---
Teaching Attending Note Name of Resident: Tyler Boggs ATTENDING PHYSICIAN STATEMENT I saw and evaluated the patient. I reviewed the resident's note and discussed the case with the resident. I agree with the resident's findings and plan as documented. SUBJECTIVE: Patient is a 62 year old woman because around 12 noon today (seated in Wheel chair) she complained of blurred vision and dizziness. Family found BP of 70 systolic. Recently hospitalized here for AMS?/?Seizures? and UTI?. She was transferred to [facility] for "seizures" and diverticular disease and was discharged yesterday. She has a history of Dementia, CHF, ?Ferrer-José syndrome, Deep Vein Thrombosis (On Eliquis), ICD, HTN, Hyperlipidemia, Pulmonary Hypertension, Asthma, COPD, (Previously Intubated), Sleep Apnea, Pulmonary Fibrosis, O2 & steroid Dependent, GERD, Hepatitis C, Anemia, Chronic low back pain, Pacemaker Sarcoidosis (cardiac and pulmonary), and NIDDM. She has not walked in > 6 years. Has electric W/C and requires 2 family members to transfer bed to W/C. In the ER her initial BP systolic BP was 100 mmHg which is close to her baseline BP and there was no intervention that caused the BP to come up from the lower values noted by the family at home. She also had a low grade fever on arrival. OBJECTIVE: Alert and in no acute distress Vital Signs Period Temp Pulse Resp BP Sys/Londono Pulse Ox Last 24 Hr 98.6 F-100.6 F 106-112 20-24 100-139/76-90 99-99 HEENT: No Jaundice, eye redness or discharge, PERRLA, EOMI. Normocephalic, atraumatic. External ears are normal and hearing is grossly intact. No nasal discharge. Neck: Supple, nontender. No palpable adenopathy or thyromegaly. No JVD Chest: Good effort. Clear to auscultation and percussion. Heart: Regular. No S3, rub or murmur Abdomen: Not distended, soft, nontender and no HSM. No rebound or guarding. Normoactive bowel sounds. Ext: Peripheral pulses intact. No leg edema. Skin: Warm and dry. No petechiae, rash or ecchymosis. Neuro: Alert. Oriented x3. CN 2-12 grossly intact. Sensation grossly intact in all four extremities and DTR are symmetric. Current Medications Generic Name Dose Route Start Last Admin Trade Name Freq PRN Reason Stop Dose Admin Albuterol/Ipratropium 1 amp 10/30/17 08:00 Duoneb - NEB RQID EYAL Apixaban 2.5 mg 10/30/17 10:00 Eliquis - PO BID EYAL Arformoterol Tartrate 1 amp 10/30/17 08:00 Brovana (Restricted To Pulmonology/Resp) - NEB RBID EYAL Chlorhexidine Gluconate 1 applic 10/30/17 22:00 Hibiclens For Decolonization - TP HS EYAL Diltiazem HCl 30 mg 10/30/17 06:00 Cardizem - PO TID EYAL Furosemide 60 mg 10/30/17 10:00 Lasix - PO DAILY EYAL Aztreonam 1 gm/ Dextrose 50 mls @ 100 mls/hr 10/29/17 23:45 10/30/17 00:50 IVPB 10/30/17 08:14 100 mls/hr Q8H EYAL Administration Aztreonam 1 gm/ Dextrose 50 mls @ 100 mls/hr 10/30/17 02:00 IVPB Q8H-IV EYAL Insulin Aspart 1 vial 10/30/17 07:00 Novolog Vial Sliding Scale - SQ ACHS EYAL Protocol Lisinopril 10 mg 10/30/17 10:00 Prinivil PO DAILY EYAL Montelukast Sodium 10 mg 10/30/17 22:00 Singulair - PO HS EYAL Morphine Sulfate 15 mg 10/29/17 23:45 10/30/17 00:05 Ms Contin - PO 15 mg BID EYAL Administration Mupirocin 1 applic 10/30/17 10:00 Bactroban Ointment (For Decolonization) - NS 11/04/17 09:59 BID EYAL Pantoprazole Sodium 40 mg 10/30/17 22:00 Protonix - PO HS EYAL Prednisone 20 mg 10/30/17 10:00 Deltasone - PO DAILY EYAL Pregabalin 75 mg 10/30/17 10:00 Lyrica - PO BID EYAL Sodium Chloride 2 spray 10/30/17 10:00 [place]al [place] - NS BID EYAL Abnormal Lab Results 10/29/17 10/29/17 10/29/17 18:17 18:17 20:47 RBC 3.50 L Hgb 9.4 L Hct 30.1 L D MCHC 31.3 L RDW 18.3 H Neutrophils % (Manual) 85.0 H Monocytes % 1.5 L Monocytes % (Manual) 2 L Chloride 96 L Carbon Dioxide 34 H BUN 24 H Random Glucose 381 H* Calcium 8.4 L Alkaline Phosphatase 148 H D Albumin 2.6 L Urine Glucose (UA) 3+ H ASSESSMENT AND PLAN: 1. Hypotension and Vision loss - Etiology is unclear. Head CT scan was negative and her vision steadily improved along with her BP in the ER. At home she is on 3 antihypertensive drugs (Lisinopril, Cardiazem, Lasix) and on 2 other medications with potential side effect of hypotension (morphine, lyrica). The temporal relationship of ingestion of these drugs and her hypotensive episode at home is unclear. However, because of recent diverticulitis and UTI, persistent tachycardia and now fever in the ER, sepsis is a concern. She has pyuria but only trace leukocyte esterase. Sepsis work up is done and will treat with Aztreonam and Vancomycin and consult ID. Gentle IV fluids and hold antihypertensive drugs. 2. Hypoalbuminemia - Possibly due to combined effects of malnutrition and inflammation associated with comorbid chronic conditions. Will ensure adequate dietary protein intake of at least 1.5 gm/Kg body weight/day and also consult line manager. 3. DM - For now, we will hold the home diabetes drugs and implement sliding scale insulin regimen. Provide comprehensive diabetes care with patient teaching and counseling about the importance of euglycemia, eye care and foot care. 4. Anemia - Likely multifactorial including inflammation and lots of blood drawing for lab tests in the past 1 month. Exclude GI loss. 5. DVT prophylaxis - On Eliquis for remote DVT 6. Advance directives - Full code
[2017-10-29] MEDS ORDERED: VANCOMYCIN 1 GRAM (PRE-DOCKED) 1,000 MG/250 ML BAG IVPB ONE ×2 (23:33→23:35)
[2017-10-29] MEDS ORDERED: morphine SO4 SUSTAINED ACTING 15 MG TABLET.SA ONE (23:50)
[2017-10-30] MEDS: morphine SO4 SUSTAINED ACTING 15 MG TABLET.SA PO SCH ×3 (00:05→23:03)
[2017-10-30 00:36] VITALS: BMI 30.9
--- NOTE | 2017-10-30 00:46 | HP ---
CHIEF COMPLAINT: decreased vision PCP: HISTORY OF PRESENT ILLNESS: The patient is a 62 yo f w/ PMH dementia, DM, DVT, HTN, pulmonary fibrosis (on home O2) who comes into the ED c/o a 1 day hx of decreased vision and dizziness. The patient describes waking up from sleep today and experiencing decreased vision b/l. The patient associated this with a feeling of dizziness and unbalanced which was present even at rest. The patient was recently admitted for diverticulitis at [facility], where she was treated for 7 days with an IV antibiotic for 7 days before discharge. The patient's family member also found her to be hypotensive, measuring a BP of 70/40 at home In the ED, she was found to be febrile to 100.6 [address] a negative CT head. Neurology was consulted from the ER. At the time of the interview, the patient stated that she had begun to get her vision back. Recent Travel: none PAST MEDICAL HISTORY: see HPI PAST SURGICAL HISTORY: none Social History: Smoking: denies Alcohol: denies Drugs: denies Family History: non-contributory Allergies medroxyprogesterone acetate [From Depo-Provera] Allergy (Severe, Verified 22:58) stepehns josé syndrome amoxicillin trihydrate [From Augmentin] Allergy (Verified 10/18/17 22:58) aspirin Allergy (Verified 10/18/17 22:58) azithromycin [From Zithromax] Allergy (Verified 10/18/17 22:58) Dewey José syndrome bacitracin Allergy (Verified 10/18/17 22:58) ciprofloxacin HCl [From Cipro] Allergy (Verified 10/18/17 22:58) clavulanic acid [From Augmentin] Allergy (Verified 10/18/17 22:58) codeine [Codeine] Allergy (Verified 10/18/17 22:58) Iodinated Contrast- Oral and IV Dye [IV Dye, Iodine Containing Contrast ] Allergy (Verified 10/18/17 22:58) ketorolac tromethamine [From Toradol] Allergy (Verified 10/18/17 22:58) levofloxacin [From Levaquin] Allergy (Verified 10/18/17 22:58) metronidazole [From Flagyl] Allergy (Verified 10/18/17 22:58) nalbuphine HCl [From Nubain] Allergy (Verified 10/18/17 22:58) CYANOSIS potassium clavulanate [From Augmentin] Allergy (Verified 10/18/17 22:58) Shellfish Allergy (Verified 10/18/17 22:58) shellfish derived Allergy (Verified 10/18/17 22:58) sulfamethoxazole [From Bactrim] Allergy (Verified 10/18/17 22:58) trimethoprim [From Bactrim] Allergy (Verified 10/18/17 22:58) HOME MEDICATIONS: Home Medications Medication Instructions Recorded Albuterol 2.5/Ipratropium 0.5 1 amp NEB RQID amp 10/20/17 [Duoneb -] Apixaban [Eliquis -] 2.5 mg PO BID tablet 10/20/17 Arformoterol Tartrate [Brovana -] 1 amp NEB RBID amp 10/20/17 Diltiazem [Cardizem -] 30 mg PO TID tablet 10/20/17 Diltiazem [Cardizem -] 30 mg PO TID tablet 10/20/17 Furosemide [Lasix -] 60 mg PO DAILY tablet 10/20/17 Insulin (Levemir) [Levemir Vial] 38 units SQ HS units 10/20/17 Insulin (Levemir) [Levemir Vial] 45 units SQ HS #45 units 10/20/17 Insulin (Novolog) [Novolog -] 0 units SQ ACHS units 10/20/17 Lisinopril [Prinivil] 10 mg PO DAILY tablet 10/20/17 Mag Hydrox/Al Hydrox/Simeth 30 ml PO Q6H PRN ml 10/20/17 [MAALOX *SUSPENSION* -] Metoclopramide HCl [Reglan -] 5 mg PO TID tablet 10/20/17 Montelukast Na [Singulair -] 10 mg PO HS tablet 10/20/17 Morphine *Sr* [Ms Contin -] 15 mg PO BID #1 tablet.sa MDD 2 10/20/17 Nitroglycerin Sublingual 0.4 mg SL ASDIR PRN tab 10/20/17 [Nitrostat -] Pantoprazole Sodium [Protonix -] 40 mg PO HS tablet.ec 10/20/17 Polyethylene Glycol 3350 [Miralax 17 gm PO BID bottle 10/20/17 119 gm Btl -] Pregabalin [Lyrica -] 75 mg PO BID #1 capsule MDD 2 10/20/17 Sennosides [Senna -] 1 tab PO HS tablet 10/20/17 predniSONE [Deltasone -] 20 mg PO DAILY tablet 10/20/17 predniSONE [Deltasone -] 40 mg PO DAILY tablet 10/20/17 REVIEW OF SYSTEMS CONSTITUTIONAL: Absent: fever, chills, diaphoresis, generalized weakness, malaise, loss of appetite, weight change HEENT: Absent: rhinorrhea, nasal congestion, throat pain, throat swelling, difficulty swallowing, mouth swelling, ear pain, eye pain, visual changes CARDIOVASCULAR: Absent: chest pain, syncope, palpitations, irregular heart rate, lightheadedness , peripheral edema RESPIRATORY: Absent: cough, shortness of breath, dyspnea with exertion, orthopnea, wheezing, stridor, hemoptysis GASTROINTESTINAL: Absent: abdominal pain, abdominal distension, nausea, vomiting, diarrhea, constipation, melena, hematochezia GENITOURINARY: Absent: dysuria, frequency, urgency, hesitancy, hematuria, flank pain, genital pain MUSCULOSKELETAL: Absent: myalgia, arthralgia, joint swelling, back pain, neck pain SKIN: Absent: rash, itching, pallor HEMATOLOGIC/IMMUNOLOGIC: Absent: easy bleeding, easy bruising, lymphadenopathy, frequent infections ENDOCRINE: Absent: unexplained weight gain, unexplained weight loss, heat intolerance, cold intolerance NEUROLOGIC: Absent: headache, focal weakness or paresthesias, seizure, mental status changes , bladder or bowel incontinence PSYCHIATRIC: Absent: anxiety, depression, suicidal or homicidal ideation, hallucinations. PHYSICAL EXAMINATION Vital Signs - 24 hr 10/29/17 10/29/17 10/30/17 17:05 18:29 00:19 Temperature 98.6 F 100.6 F H 99 F Pulse Rate 106 H 112 H Respiratory 20 20 Rate Blood Pressure 100/76 139/90 O2 Sat by Pulse 99 99 Oximetry (%) GENERAL: Awake, alert, and fully oriented, in no acute distress. EYES: Pupils equal, round and reactive to light, extraocular movements intact, sclera anicteric, conjunctiva clear. No lid lag. EARS, NOSE, THROAT: oropharynx clear without exudates. Moist mucous membranes. No wheezes, and no crackles. No accessory muscle use. HEART: Regular rate and rhythm, normal S1 and S2 without murmur, rub or gallop. ABDOMEN: Soft, nontender, not distended, normoactive bowel sounds, no guarding, no rebound, no masses. No hepatomegaly or splenomegaly. LOWER EXTREMITIES: 2+ pulses, warm, well-perfused. No calf tenderness. No peripheral edema. NEUROLOGICAL: Cranial nerves II-X intact. Normal speech. PSYCHIATRIC: Cooperative. Good eye contact. Appropriate mood and affect. SKIN: Warm, dry, normal turgor, no rashes or lesions noted, normal capillary refill. Laboratory Results - last 24 hr 10/29/17 10/29/17 10/29/17 18:17 18:17 19:54 WBC 10.0 RBC 3.50 L Hgb 9.4 L Hct 30.1 L D MCV 86.0 MCH 26.9 MCHC 31.3 L RDW 18.3 H Plt Count 335 D MPV 7.5 Absolute Neuts (auto) 8.1 Total Counted 100 Neutrophils % 80.9 Neutrophils % (Manual) 85.0 H Lymphocytes % 17.0 D Lymphocytes % (Manual) 12.0 Monocytes % 1.5 L Monocytes % (Manual) 2 L Eosinophils % 0.0 Eosinophils % (Manual) 1.0 D Basophils % 0.6 D Nucleated RBC % 0 Hypochromia 2+ Platelet Estimate Adequate Platelet Comment No clumping noted Anisocytosis 2+ Microcytosis 1+ Macrocytosis 1+ Ovalocytes 1+ Schistocytes 1+ Sodium 138 Potassium 4.3 Chloride 96 L Carbon Dioxide 34 H Anion Gap 8 BUN 24 H Creatinine 0.9 Creat Clearance w eGFR > 60 Random Glucose 381 H* Lactic Acid 1.2 Calcium 8.4 L Total Bilirubin 0.2 AST 19 ALT 21 Alkaline Phosphatase 148 H D Total Protein 6.6 Albumin 2.6 L Urine Color Urine Appearance Urine pH Ur Specific [place] Urine Protein Urine Glucose (UA) Urine Ketones Urine Blood Urine Nitrite Urine Bilirubin Urine Urobilinogen Ur Leukocyte Esterase Urine WBC (Auto) Urine RBC (Auto) Urine Bacteria Hyaline Casts Granular Casts Urine Mucus 10/29/17 20:47 WBC RBC Hgb Hct MCV MCH MCHC RDW Plt Count MPV Absolute Neuts (auto) Total Counted Neutrophils % Neutrophils % (Manual) Lymphocytes % Lymphocytes % (Manual) Monocytes % Monocytes % (Manual) Eosinophils % Eosinophils % (Manual) Basophils % Nucleated RBC % Hypochromia Platelet Estimate Platelet Comment Anisocytosis Microcytosis Macrocytosis Ovalocytes Schistocytes Sodium Potassium Chloride Carbon Dioxide Anion Gap BUN Creatinine Creat Clearance w eGFR Random Glucose Lactic Acid Calcium Total Bilirubin AST ALT Alkaline Phosphatase Total Protein Albumin Urine Color Ltyellow Urine Appearance Clear Urine pH 6.0 Ur Specific [place] 1.020 Urine Protein Negative Urine Glucose (UA) 3+ H Urine Ketones Negative Urine Blood Negative Urine Nitrite Negative Urine Bilirubin Negative Urine Urobilinogen Negative Ur Leukocyte Esterase Trace Urine WBC (Auto) 26 Urine RBC (Auto) 1 Urine Bacteria Rare Hyaline Casts 4 Granular Casts 1 Urine Mucus Rare ASSESSMENT/PLAN: The patient is a 62 yo f w/ PMH dementia, DM, DVT , pulmonary fbrosis (on home O2) admitted to ICU for sepsis r/o stroke #vision loss and vertigo possibly 2/2 hypoperfusion and hypotension 2/2 sepsis -Meropenem (changed to aztreonam due to allergies) -s/p vancomycin in ED -Neurology consult; neurological ssx likely 2/2 sepsis -ID consult -Admit ICU; further management as per intensive care team #Prophy -patient on eliquis 2.5 BID #dispo -Admit ICU Visit type - Emergency Visit Emergency Visit: Yes ED Registration Date: 10/29/17 Care time: The patient presented to the Emergency Department on the above date and was hospitalized for further evaluation of their emergent condition. - New Patient This patient is new to me today: Yes Date on this admission: 10/30/17 - Critical Care Critical Care patient: Yes Total Critical Care Time (in minutes): 35 Critical Care Statement: The care of this patient involved high complexity decision making to prevent further life threatening deterioration of the patient 's condition and/or to evaluate & treat vital organ system(s) failure or risk of failure. Hospitalist Screening - Colonoscopy Questionnaire Colonoscopy Questionnaire: Colonoscopy Questionnaire - Patient: 50 - 75 years old and never had a screening colonoscopy: Unknown History of colon or rectal polyps, or CA: Unknown History of IBD, Crohn's disease or UC: Unknown History of abdominal radiation therapy as a child: Unknown - Relative: 1 with colon or rectal CA, or polyps at age 60 or younger: Unknown Colon or rectal CA diagnosed at age 45 or younger: Unknown Multiple relatives with colon or rectal CA: Unknown - Outcome: Screening Result: Negative Screen
[2017-10-30] MEDS: AZTREONAM 1 GM in DEXTROSE 5%-WATER - 50 ML IVPB SCH ×3 (00:50→18:38)
[2017-10-30] MEDS ORDERED: AZTREONAM 1 GM in DEXTROSE 5%-WATER - 50 ML IVPB SCH ×2 (02:00→18:00)
[2017-10-30] MEDS ORDERED: IMIPENEM/CILASTATIN SODIUM 500 MG in SODIUM CHLORIDE 100 ML IV ONE (05:22)
[2017-10-30] MEDS ORDERED: dilTIAZem HCL 30 MG TABLET (FP) PO SCH (06:00)
[2017-10-30 06:06] LABS: BASO % 0.4 % (0-2.0); HEMATOCRIT 27.2 % (32.4-45.2); HEMOGLOBIN 8.9 GM/dL (10.7-15.3); LYMPH % 27.8 % (8-40); MCHC 32.9 g/dl (32.0-36.0); MEAN CELL VOLUME 85.3 fl (80-96); MONO % 3.4 % (3.8-10.2); NEUT % 68.4 % (42.8-82.8); PLATELET COUNT 256 K/MM3 (134-434); RBC 3.18 M/mm3 (3.60-5.2); RDW 18.7 % (11.6-15.6); WHITE BLOOD COUNT 6.5 K/mm3 (4.0-10.0)
[2017-10-30 06:21] LABS: INR 1.2 (0.82-1.09); PROTHROMBIN TIME (PATIENT) 13.6 SEC (9.7-13.0)
[2017-10-30 06:24] LABS: ACTIVATED PTT 24.3 SECONDS (25.2-36.5)
[2017-10-30 06:26] LABS: ALBUMIN 2.5 g/dl (3.4-5.0); ANION GAP 1 (8-16); BLOOD UREA NITROGEN 21 mg/dL (7-18); CALCIUM 8.2 mg/dL (8.5-10.1); CHLORIDE 100 mmol/L (98-107); CO2 38 mmol/L (21-32); CREATININE 0.5 mg/dL (0.55-1.02); GLUCOSE,RANDOM 228 mg/dL (74-106); MAGNESIUM 1.9 mg/dL (1.8-2.4); POTASSIUM 3.4 mmol/L (3.5-5.1); SGOT/AST 14 U/L (15-37); SGPT/ALT 21 U/L (12-78); SODIUM 139 mmol/L (136-145)
[2017-10-30 06:28] LABS: ALK PHOS 133 U/L (45-117); BILIRUBIN,TOTAL 0.2 mg/dL (0.2-1.0); TOT PROT 6.1 g/dl (6.4-8.2)
[2017-10-30] MEDS: INSULIN SLIDING SCALE (NOVOLOG) 1 VIAL SQ SCH ×4 (06:31→23:04)
--- NOTE | 2017-10-30 06:58 | PN ---
Repeat PE for Septic Shock - Vital Signs Vital Signs: Vital Signs Temperature 99.4 F 10/30/17 02:00 Pulse Rate 94 H 10/30/17 04:00 Respiratory Rate 26 H 10/30/17 04:00 Blood Pressure 115/79 10/30/17 04:00 O2 Sat by Pulse Oximetry (%) 99 10/30/17 00:19 I have reviewed the most recent vital signs: Yes - PE CV for Spetic Shock: Regular Rhythm, Regular Rate, S1, S2 Lungs: Lungs Clear, Normal Breath Sounds Vascular: Left Radial: 2+, Right Radial: 2+, Left Doralis Pedis: 2+, Right Dorsalis Pedis: 2+ Capillary Refill: <3 seconds Skin exam: Normal Color - Impression Impression: No fluid bolus indicated, pt not hypovolemic (patient feels well, says she is at her baseline. aaox3. states that when she has BP drop in the past , she experienced similar dizziness. no abd pain.)
[2017-10-30] MEDS ORDERED: KCL 10 MEQ IVPB 10 MEQ/100 ML INFUS.BAG IVPB SCH (07:00)
[2017-10-30] MEDS ORDERED: ARFORMOTEROL TARTRATE 15 MCG/2 ML VIAL NEB SCH (08:00)
[2017-10-30] MEDS: ALBUTEROL SO4 2.5/IPRATROPIUM 0.5 INH SOL 3 ML VIAL.NEB. NEB SCH ×4 (08:15→20:50)
[2017-10-30] MEDS ORDERED: PREGABALIN 75 MG CAPSULE PO SCH (10:00)
[2017-10-30] MEDS ORDERED: FUROSEMIDE 20 MG TABLET (FP) PO SCH (10:00)
[2017-10-30] MEDS ORDERED: SODIUM CHLORIDE NASAL SPRAY 44 ML BOTTLE NS SCH (10:00)
[2017-10-30] MEDS ORDERED: LISINOPRIL 10 MG TABLET (FP) PO SCH (10:00)
[2017-10-30] MEDS ORDERED: APIXABAN 2.5 MG TABLET PO SCH (10:00)
[2017-10-30] MEDS ORDERED: MUPIROCIN 2% TOPICAL OINTMENT FOR DECOLONIZATION NS SCH (10:00)
[2017-10-30] MEDS ORDERED: predniSONE 10 MG TABLET (UD) PO SCH (10:00)
[2017-10-30] MEDS ORDERED: POTASSIUM CHLORIDE TABS 20 MEQ TABLET.ER (FP) PO SCH (10:00)
[2017-10-30] MEDS ORDERED: predniSONE 20 MG TABLET (UD) PO SCH (10:00)
--- NOTE | 2017-10-30 10:15 | PN ---
Progress Note (short form) - Note Progress Note: ID consult dictated Sepsis syndrome ? source Cerebral hypoperfusion S/P acute diverticulitis Hx chronic lung disease Multiple antibiotic allergies Await c/s Empiric vancomycin/ aztreonam Hemodynamic support Critical care time 35min
--- NOTE | 2017-10-30 10:34 | PN ---
Teaching Attending Note Name of Resident: Wero Barbosa ATTENDING PHYSICIAN STATEMENT I saw and evaluated the patient. I reviewed the resident's note and discussed the case with the resident. I agree with the resident's findings and plan as documented. SUBJECTIVE: Pt seen and examined in the ICU. Feels at baseline. No shortness of breath or chest pain. No fevers or chills. OBJECTIVE: Vital Signs Period Temp Pulse Resp BP Sys/Londono Pulse Ox Last 24 Hr 97.9 F-100.6 F 94-116 20-26 95-139/14-90 99-99 Intake & Output 10/27/17 10/28/17 10/29/17 10/30/17 23:59 23:59 23:59 23:59 Intake Total 350 Balance 350 Weight 72.575 kg 71.758 kg Gen: NAD at rest Heart: tachycardic, regular Lung: bilateral rales Abd: soft, nontender Ext: + edema CBC, BMP 10/30/17 05:30 10/30/17 05:30 Active Medications Albuterol/Ipratropium (Duoneb -) 1 amp NEB RQID [facility] Last Admin: 10/30/17 08:15 Dose: 1 amp Apixaban (Eliquis -) 2.5 mg PO BID [facility] Last Admin: 10/30/17 09:55 Dose: 2.5 mg Arformoterol Tartrate (Brovana (Restricted To Pulmonology/Resp) -) 1 amp NEB RBID [facility] Last Admin: 10/30/17 07:08 Dose: 1 amp Chlorhexidine Gluconate (Hibiclens For Decolonization -) 1 applic TP [facility] Diltiazem HCl (Cardizem -) 30 mg PO TID [facility] Last Admin: 10/30/17 06:18 Dose: 30 mg Furosemide (Lasix -) 60 mg PO DAILY [facility] Vancomycin HCl (Vancomycin 1 Gm Premix -) 1 gm in 200 mls @ 166.667 mls/hr IVPB BID@1100,1300 [facility]; Protocol Aztreonam 1 gm/ Dextrose 50 mls @ 100 mls/hr IVPB Q8H-IV [facility]; Protocol Insulin Aspart (Novolog Vial Sliding Scale -) 1 vial SQ ACHS [facility]; Protocol Last Admin: 10/30/17 06:31 Dose: 4 units Montelukast Sodium (Singulair -) 10 mg PO [facility] Morphine Sulfate (Ms Contin -) 15 mg PO BID [facility] Last Admin: 10/30/17 09:55 Dose: 15 mg Mupirocin (Bactroban Ointment (For Decolonization) -) 1 applic NS BID [facility] Stop: 11/04/17 09:59 Last Admin: 10/30/17 09:58 Dose: 1 applic Pantoprazole Sodium (Protonix -) 40 mg PO [facility] Potassium Chloride (K-Dur -) 40 meq PO DAILY [facility] Last Admin: 10/30/17 09:57 Dose: 40 meq Prednisone (Deltasone -) 20 mg PO DAILY [facility] Last Admin: 10/30/17 09:55 Dose: 20 mg Pregabalin (Lyrica -) 75 mg PO BID [facility] Last Admin: 10/30/17 09:55 Dose: 75 mg Sodium Chloride ([place]al [place] -) 2 spray NS BID [facility] ASSESSMENT AND PLAN: Near Syncope/Hypotension Recent Diverticulitis r/o UTI Chronic Hypoxic Respiratory Failure COPD Atrial Fibrillation LV Diastolic Dysfunction HTN DM Seizure Disorder Hep C - antibiotics per ID - f/u cultures - change cardizem to metoprolol - O2 to keep SpO2 >90% - inhaled bronchodilators - continue home dose prednisone - lasix as needed - continue anticoagulation - can monitor on telemetry
--- NOTE | 2017-10-30 10:59 | CONS ---
DATE OF CONSULTATION: DATE OF DICTATION: 10/30/2017 HISTORY OF PRESENT ILLNESS: The patient is a 62-year-old female known to our service from multiple recent hospitalizations evaluated for sepsis. The patient has had several hospitalizations here over the past several months. She was most recently admitted with acute diverticulitis. She was transferred to [facility] for further treatment in light of her multiple comorbidities. The patient reports being at [facility] for approximately 7 days and being discharged home off antibiotic therapy after resolution of her acute diverticulitis. She did not require surgical intervention. She is now readmitted on October 29, 2017, with dizziness and change in visual acuity. According to the notes she had woken up from sleep and had complained of decreased visual acuity, dizziness, vague abdominal discomfort and nausea without vomiting. She was evaluated in the emergency room where she was noted to be febrile, hypotensive and hyperglycemic. She was admitted to the intensive care unit. She was seen in consultation by Neurology. Concern was expressed over possible acute neurological event versus sepsis. She was empirically treated with vancomycin and Azactam. The patient has a history of multiple antibiotic allergies. However, has tolerated Azactam, vancomycin and clindamycin in the past. Presently she is awake and alert. She reports feeling better. She has no focal complaint. She denies any abdominal pain, vomiting. She reports having a normal bowel movement yesterday. No complaints of chest pain, shortness of breath, cough or sputum production. PAST MEDICAL HISTORY: Positive for chronic lung disease, pulmonary fibrosis, COPD, asthma, pulmonary and cardiac sarcoidosis, congestive heart failure, hypertension, hyperlipidemia, DVT, pulmonary hypertension. obstructive sleep apnea, gastroesophageal reflux, hepatitis C, diabetes mellitus. ALLERGIES: MULTIPLE AGENTS, including AUGMENTIN, ZITHROMAX, CIPRO, LEVAQUIN, FLAGYL, ASPIRIN, DEPO-PROVERA, CODEINE, BACTRIM. PAST SURGICAL HISTORY: Status post permanent pacemaker. SOCIAL HISTORY: She lives at home in the community. She is a former smoker. No history of alcohol abuse. SYSTEMS REVIEW:Neurologic: As per HPI. Cardiac: Status post permanent pacemaker, congestive heart failure. Respiratory: As her HPI. Chronic lung disease secondary to pulmonary sarcoidosis, COPD, asthma, pulmonary hypertension. Gastrointestinal: As per HPI. Genitourinary: Negative for urinary tract infection. LABORATORY DATA: White count 6.5, 68 neutrophils, 27 lymphocytes, 3 monocytes, hematocrit 27.2, platelets 256. BUN 21, creatinine 0.5, glucose 228. Liver enzymes: Total bilirubin 0.2, alkaline phosphatase 133, AST 14, ALT 21. Urinalysis: White cells 26. Blood and urine cultures are pending. Chest x-ray shows bilateral chronic changes consistent with a known history of pulmonary fibrosis and pulmonary sarcoidosis. PHYSICAL EXAMINATION: General: She is awake and alert. She is seated in bed in no acute distress, slightly short of breath at rest on nasal cannula O2. Vital Signs: Temperature 97.9, T-max 100.6, blood pressure 100/85, pulse 96, regular, respirations 24 per minute. HEENT: Sclerae are anicteric. Cardiac: Heart sounds irregular S1, S2. Lungs: Bilateral rhonchi, wheezing and crepitations. Abdomen: Hypoactive bowel sounds. Abdomen is soft, slightly distended. No tenderness elicited. No mass or rebound. No rigidity. There is a palpable foreign body present in the right mid abdomen consistent with an old pump. Extremities: Edema 1+. IMPRESSION: 1. Sepsis syndrome, unclear source. 2. Rule out acute neurological event. 3. Status post acute diverticulitis. 4. Chronic lung disease. 5. MULTIPLE ANTIBIOTIC allergies. RECOMMENDATIONS: Pending sepsis workup empiric antibiotic coverage with vancomycin and Azactam. Hemodynamic support. ICU monitoring. Neurology followup. Will follow. Thank you for the kind referral. JOHNNY VELASCO M.D. [id number]
--- NOTE | 2017-10-30 11:24 | EKG ---
Test Reason : Blood Pressure : / mmHG Vent. Rate : 095 BPM Atrial Rate : 095 BPM P-R Int : 130 ms QRS Dur : 062 ms QT Int : 316 ms P-R-T Axes : 024 -22 062 degrees QTc Int : 397 ms NORMAL SINUS RHYTHM NORMAL ECG WHEN COMPARED WITH ECG OF 19-OCT-2017 00:50, ABERRANT CONDUCTION IS NO LONGER PRESENT Confirmed by ANILA CASANOVA MD ([id number]) on 10/30/2017 11:24:33 AM Referred By: Confirmed By:ANILA CASANOVA MD
[2017-10-30] MEDS: VANCOMYCIN 1 GM PREMIX - 1 GM/200 ML BAG IVPB SCH ×3 (11:49→23:08)
[2017-10-30 12:16] LABS: ANISOCYTOSIS 1+; MACROCYTOSIS 0; PLATELET ESTIMATE NORMAL
[2017-10-30] MEDS ORDERED: METOPROLOL TARTRATE 25 MG TABLET (FP) PO ONE (13:04)
--- NOTE | 2017-10-30 16:59 | PN ---
Progress Note (short form) - Note Progress Note: Subjective: The patient was seen and examined at the bedside, she has no complaints at this time. Current Medications Generic Name Dose Route Start Last Admin Trade Name Christiana PRN Reason Stop Dose Admin Albuterol/Ipratropium 1 amp 10/30/17 20:00 Duoneb - NEB RQID [facility] Apixaban 2.5 mg 10/30/17 22:00 Eliquis - PO BID [facility] Arformoterol Tartrate 1 amp 10/30/17 20:00 Brovana (Restricted To Pulmonology/Resp) - NEB RBID [facility] Furosemide 60 mg 10/31/17 10:00 Lasix - PO DAILY [facility] Aztreonam 1 gm/ Dextrose 50 mls @ 100 mls/hr 10/30/17 18:00 10/30/17 18:38 IVPB 100 mls/hr Q8H-IV [facility] Administration Protocol Vancomycin HCl 1 gm in 200 mls @ 133.333 mls/hr 10/30/17 23:00 Vancomycin 1 Gm Premix - IVPB BID@1100,2300 [facility] Protocol Insulin Aspart 1 vial 10/30/17 16:30 10/30/17 17:14 Novolog Vial Sliding Scale - SQ 12 units ACHS [facility] Administration Protocol Metoprolol Tartrate 25 mg 10/30/17 11:47 Lopressor - PO BID [facility] Montelukast Sodium 10 mg 10/30/17 22:00 Singulair - PO HS [facility] Morphine Sulfate 15 mg 10/30/17 22:00 Ms Contin - PO BID [facility] Pantoprazole Sodium 40 mg 10/30/17 22:00 Protonix - PO HS [facility] Potassium Chloride 40 meq 10/31/17 10:00 K-Dur - PO DAILY [facility] Prednisone 20 mg 10/31/17 10:00 Deltasone - PO DAILY [facility] Pregabalin 75 mg 10/30/17 22:00 Lyrica - PO BID [facility] Sodium Chloride 2 spray 10/30/17 22:00 [place] Nasal [place] - NS BID [facility] Objective: Vital Signs Period Temp Pulse Resp BP Sys/Londono Pulse Ox Last 24 Hr 97.9 F-99.4 F 94-120 20-26 80-139/14-90 99-99 Physical Exam: General: NAD, A&Ox3 Lungs: B/l rhonchi Heart: RRR, S1S2 Abd: Soft, non-tender, non-distended Ext: Warm, well-perfused CBCD WBC 6.5 K/mm3 (4.0-10.0) 10/30/17 05:30 RBC 3.18 M/mm3 (3.60-5.2) L 10/30/17 05:30 Hgb 8.9 GM/dL (10.7-15.3) L 10/30/17 05:30 Hct 27.2 % (32.4-45.2) L 10/30/17 05:30 MCV 85.3 fl (80-96) 10/30/17 05:30 MCHC 32.9 g/dl (32.0-36.0) 10/30/17 05:30 RDW 18.7 % (11.6-15.6) H 10/30/17 05:30 Plt Count 256 K/MM3 (134-434) D 10/30/17 05:30 MPV 7.0 fl (7.5-11.1) L 10/30/17 05:30 CMP Sodium 139 mmol/L (136-145) 10/30/17 05:30 Potassium 3.4 mmol/L (3.5-5.1) L 10/30/17 05:30 Chloride 100 mmol/L (98-107) 10/30/17 05:30 Carbon Dioxide 38 mmol/L (21-32) H 10/30/17 05:30 Anion Gap 1 (8-16) L 10/30/17 05:30 BUN 21 mg/dL (7-18) H 10/30/17 05:30 Creatinine 0.5 mg/dL (0.55-1.02) L 10/30/17 05:30 Creat Clearance w eGFR > 60 (>60) 10/30/17 05:30 Random Glucose 228 mg/dL (74-106) H 10/30/17 05:30 Calcium 8.2 mg/dL (8.5-10.1) L 10/30/17 05:30 Total Bilirubin 0.2 mg/dL (0.2-1.0) 10/30/17 05:30 AST 14 U/L (15-37) L 10/30/17 05:30 ALT 21 U/L (12-78) 10/30/17 05:30 Alkaline Phosphatase 133 U/L (45-117) H D 10/30/17 05:30 Total Protein 6.1 g/dl (6.4-8.2) L 10/30/17 05:30 Albumin 2.5 g/dl (3.4-5.0) L 10/30/17 05:30 Assessment: This is a 62 year old female with PMHx of HTN, HLD, pulmonary sarcoidosis/ILD, COPD, OSVALDO, diastolic heart failure, cardiac sarcoidosis, h/o multifocal atrial tachycardia and paroxysmal atrial tachycardia s/p ICD/PPM, h/ o DVT on Eliquis, IDDM, hepatitis C, GERD who presented to the ED with dizziness and near syncope Plan: 1) Sepsis syndrome - Continue Empiric vancomycin and aztreonam - BP improved with IV fluids - Recent admission for acute diverticulitis - Blood cultures with NGTD - Urine culture with group D strep or entero coccus - Appreciate ID consult 2) Changes in vision - Possibly 2/2 hypoperfusion - Symptoms resolved - Head CT with no evidence of acute intracranial pathology. Moderate periventricular and subcortical chronic microvascular ischemic changes seen - F/u neurology consult 3) Near Syncope - Likely 2/2 hypoperfusion - Recent ECHO from 10/04/17: normal LV size and function 4) Hx of DVT - Continue Eliquis (reduced dose 2/2 epistaxis and bleeding issues) 5) HTN - Switched from Cardizem to Lopressor 6) Chronic COPD - No evidence of active exacerbation - Continue Prednisone 20mg po daily 7) DM - BGM ACHS - ISS ACHS 8) Chronic diastolic heart failure - Continue Lasix 60mg po daily - No evidence of active exacerbation 9) F/E/N: - Soft diet - Monitor electrolytes 10) Prophylaxis: - On Eliquis 11) Dispo: - Requires continued inpatient care CODE STATUS: FULL CODE Visit type - Emergency Visit Emergency Visit: Yes ED Registration Date: 10/29/17 Care time: The patient presented to the Emergency Department on the above date and was hospitalized for further evaluation of their emergent condition. - New Patient This patient is new to me today: Yes Date on this admission: 10/31/17 - Critical Care Critical Care patient: No
[2017-10-30] MEDS: ARFORMOTEROL TARTRATE 15 MCG/2 ML VIAL NEB SCH (20:50)
[2017-10-30] MEDS ORDERED: PANTOPRAZOLE 40 MG TABLET (FP) PO SCH (22:00)
[2017-10-30] MEDS ORDERED: MONTELUKAST NA 10 MG TABLET PO SCH (22:00)
[2017-10-30] MEDS ORDERED: CHLORHEXIDINE GLUCONATE 4% CLEANSER FOR DECOLONIZATION TP SCH (22:00)
[2017-10-30] MEDS ORDERED: METOPROLOL TARTRATE 25 MG TABLET (FP) PO SCH (22:00)
[2017-10-30] MEDS ORDERED: PT OWN MED DRAWER 7, Y5N ONE (22:56)
[2017-10-30] MEDS: PREGABALIN 75 MG CAPSULE PO SCH (23:03)
[2017-10-30] MEDS: MONTELUKAST NA 10 MG TABLET PO SCH (23:03)
[2017-10-30] MEDS: PANTOPRAZOLE 40 MG TABLET (FP) PO SCH (23:03)
[2017-10-30] MEDS: APIXABAN 2.5 MG TABLET PO SCH (23:03)
[2017-10-30] MEDS: METOPROLOL TARTRATE 25 MG TABLET (FP) PO SCH (23:04)
[2017-10-30] MEDS: SODIUM CHLORIDE NASAL SPRAY 44 ML BOTTLE NS SCH (23:08)
[2017-10-31] MEDS: AZTREONAM 1 GM in DEXTROSE 5%-WATER - 50 ML IVPB SCH ×3 (03:23→17:45)
[2017-10-31] MEDS: INSULIN SLIDING SCALE (NOVOLOG) 1 VIAL SQ SCH ×5 (06:32→22:38)
[2017-10-31 07:50] LABS: BASO % 0.3 % (0-2.0); EOS % 0.1 % (0-4.5); HEMATOCRIT 26.8 % (32.4-45.2); HEMOGLOBIN 8.6 GM/dL (10.7-15.3); LYMPH % 29.8 % (8-40); MCH 27.4 pg (25.7-33.7); MCHC 32.1 g/dl (32.0-36.0); MEAN CELL VOLUME 85.5 fl (80-96); MONO % 3.7 % (3.8-10.2); NEUT % 66.1 % (42.8-82.8); PLATELET COUNT 283 K/MM3 (134-434); RBC 3.14 M/mm3 (3.60-5.2); RDW 18.5 % (11.6-15.6); WHITE BLOOD COUNT 8.7 K/mm3 (4.0-10.0)
[2017-10-31 08:37] LABS: CHLORIDE 98 mmol/L (98-107); POTASSIUM 4.5 mmol/L (3.5-5.1); SODIUM 139 mmol/L (136-145)
[2017-10-31 08:46] LABS: ALBUMIN 2.4 g/dl (3.4-5.0); ALK PHOS 135 U/L (45-117); ANION GAP 4 (8-16); BILIRUBIN,TOTAL 0.2 mg/dL (0.2-1.0); BLOOD UREA NITROGEN 19 mg/dL (7-18); CALCIUM 8.6 mg/dL (8.5-10.1); CO2 37 mmol/L (21-32); CREATININE 0.5 mg/dL (0.55-1.02); GLUCOSE,RANDOM 169 mg/dL (74-106); SGOT/AST 17 U/L (15-37); SGPT/ALT 22 U/L (12-78)
[2017-10-31] MEDS: ARFORMOTEROL TARTRATE 15 MCG/2 ML VIAL NEB SCH ×2 (08:55→20:13)
[2017-10-31] MEDS: ALBUTEROL SO4 2.5/IPRATROPIUM 0.5 INH SOL 3 ML VIAL.NEB. NEB SCH ×4 (08:55→20:13)
[2017-10-31] MEDS: SODIUM CHLORIDE NASAL SPRAY 44 ML BOTTLE NS SCH ×2 (10:00→22:38)
[2017-10-31] MEDS ORDERED: PT OWN MED DRAWER 7, Y5N ONE ×3 (10:11→22:29)
[2017-10-31] MEDS: POTASSIUM CHLORIDE TABS 20 MEQ TABLET.ER (FP) PO SCH (10:12)
[2017-10-31] MEDS: METOPROLOL TARTRATE 25 MG TABLET (FP) PO SCH ×2 (10:12→22:30)
[2017-10-31] MEDS: PREGABALIN 75 MG CAPSULE PO SCH ×2 (10:12→22:30)
[2017-10-31] MEDS: APIXABAN 2.5 MG TABLET PO SCH ×2 (10:13→22:30)
[2017-10-31] MEDS: morphine SO4 SUSTAINED ACTING 15 MG TABLET.SA PO SCH ×2 (10:13→22:31)
[2017-10-31] MEDS: FUROSEMIDE 40 MG TABLET (FP) PO SCH (10:13)
[2017-10-31] MEDS: predniSONE 20 MG TABLET (UD) PO SCH (10:14)
--- NOTE | 2017-10-31 11:59 | PN ---
Progress Note (short form) - Note Progress Note: PULMONARY Denies shortness of breath, significant cough or wheezing. Vital Signs Period Temp Pulse Resp BP Sys/Londono Pulse Ox Last 24 Hr 97.8 F-98.5 F 95-123 18-25 80-102/50-74 99-99 Gen: mildly tachypneic at rest Heart: RRR Lung: bilateral rales, rhonchi Abd: soft, nontender Ext: no edema CBC, BMP 10/31/17 05:50 10/31/17 05:50 Active Medications Albuterol/Ipratropium (Duoneb -) 1 amp NEB RQID [facility] Last Admin: 10/31/17 08:55 Dose: 1 amp Apixaban (Eliquis -) 2.5 mg PO BID [facility] Last Admin: 10/31/17 10:13 Dose: 2.5 mg Arformoterol Tartrate (Brovana (Restricted To Pulmonology/Resp) -) 1 amp NEB RBID [facility] Last Admin: 10/31/17 08:55 Dose: 1 amp Furosemide (Lasix -) 60 mg PO DAILY [facility] Last Admin: 10/31/17 10:13 Dose: 60 mg Aztreonam 1 gm/ Dextrose 50 mls @ 100 mls/hr IVPB Q8H-IV [facility]; Protocol Last Admin: 10/31/17 10:14 Dose: 100 mls/hr Vancomycin HCl (Vancomycin 1 Gm Premix -) 1 gm in 200 mls @ 133.333 mls/hr IVPB BID@1100,2300 [facility]; Protocol Last Admin: 10/30/17 23:08 Dose: 133.333 mls/hr Insulin Aspart (Novolog Vial Sliding Scale -) 1 vial SQ ACHS [facility]; Protocol Last Admin: 10/31/17 06:37 Dose: 2 units Metoprolol Tartrate (Lopressor -) 25 mg PO BID [facility] Last Admin: 10/31/17 10:12 Dose: 25 mg Montelukast Sodium (Singulair -) 10 mg PO [facility] Last Admin: 10/30/17 23:03 Dose: 10 mg Morphine Sulfate (Ms Contin -) 15 mg PO BID [facility] Last Admin: 10/31/17 10:13 Dose: 15 mg Pantoprazole Sodium (Protonix -) 40 mg PO [facility] Last Admin: 10/30/17 23:03 Dose: 40 mg Potassium Chloride (K-Dur -) 40 meq PO DAILY [facility] Last Admin: 10/31/17 10:12 Dose: 40 meq Prednisone (Deltasone -) 20 mg PO DAILY [facility] Last Admin: 10/31/17 10:14 Dose: 20 mg Pregabalin (Lyrica -) 75 mg PO BID [facility] Last Admin: 10/31/17 10:12 Dose: 75 mg Sodium Chloride ([place] Nasal [place] -) 2 spray NS BID [facility] Last Admin: 10/30/17 23:08 Dose: Not Given A/P Near Syncope/Hypotension Recent Diverticulitis r/o UTI Chronic Hypoxic Respiratory Failure COPD Atrial Fibrillation LV Diastolic Dysfunction HTN DM Seizure Disorder Hep C - antibiotics per ID - f/u cultures - O2 to keep SpO2 >90% - inhaled bronchodilators - continue home dose prednisone - lasix as needed - continue anticoagulation
[2017-10-31] MEDS: VANCOMYCIN 1 GM PREMIX - 1 GM/200 ML BAG IVPB SCH ×2 (12:10→22:47)
--- NOTE | 2017-10-31 14:56 | PN ---
Progress Note (short form) - Note Progress Note: Subjective: The patient was seen and examined at the bedside, she has no complaints at this time. Current Medications Generic Name Dose Route Start Last Admin Trade Name Christiana PRN Reason Stop Dose Admin Albuterol/Ipratropium 1 amp 10/30/17 20:00 10/31/17 12:50 Duoneb - NEB 1 amp RQID [facility] Administration Apixaban 2.5 mg 10/30/17 22:00 10/31/17 10:13 Eliquis - PO 2.5 mg BID [facility] Administration Arformoterol Tartrate 1 amp 10/30/17 20:00 10/31/17 08:55 Brovana (Restricted To Pulmonology/Resp) - NEB 1 amp RBID [facility] Administration Furosemide 60 mg 10/31/17 10:00 10/31/17 10:13 Lasix - PO 60 mg DAILY [facility] Administration Aztreonam 1 gm/ Dextrose 50 mls @ 100 mls/hr 10/30/17 18:00 10/31/17 10:14 IVPB 100 mls/hr Q8H-IV [facility] Administration Protocol Vancomycin HCl 1 gm in 200 mls @ 133.333 mls/hr 10/30/17 23:00 10/31/17 12:10 Vancomycin 1 Gm Premix - IVPB 133.333 mls/hr BID@1100,2300 [facility] Administration Protocol Insulin Aspart 1 vial 10/30/17 16:30 10/31/17 11:57 Novolog Vial Sliding Scale - SQ 8 units ACHS [facility] Administration Protocol Metoprolol Tartrate 25 mg 10/30/17 11:47 10/31/17 10:12 Lopressor - PO 25 mg BID [facility] Administration Montelukast Sodium 10 mg 10/30/17 22:00 10/30/17 23:03 Singulair - PO 10 mg HS [facility] Administration Morphine Sulfate 15 mg 10/30/17 22:00 10/31/17 10:13 Ms Contin - PO 15 mg BID [facility] Administration Pantoprazole Sodium 40 mg 10/30/17 22:00 10/30/17 23:03 Protonix - PO 40 mg HS [facility] Administration Potassium Chloride 40 meq 10/31/17 10:00 10/31/17 10:12 K-Dur - PO 40 meq DAILY [facility] Administration Prednisone 20 mg 10/31/17 10:00 10/31/17 10:14 Deltasone - PO 20 mg DAILY [facility] Administration Pregabalin 75 mg 10/30/17 22:00 10/31/17 10:12 Lyrica - PO 75 mg BID [facility] Administration Sodium Chloride 2 spray 10/30/17 22:00 10/31/17 10:00 [place] Nasal [place] - NS 2 sprays BID [facility] Administration Objective: Vital Signs Period Temp Pulse Resp BP Sys/Londono Pulse Ox Last 24 Hr 97.8 F-98.5 F 95-123 18-22 85-102/50-68 99-99 Physical Exam: Patient refused today, stating "come back tomorrow" CBCD WBC 8.7 K/mm3 (4.0-10.0) 10/31/17 05:50 RBC 3.14 M/mm3 (3.60-5.2) L 10/31/17 05:50 Hgb 8.6 GM/dL (10.7-15.3) L 10/31/17 05:50 Hct 26.8 % (32.4-45.2) L 10/31/17 05:50 MCV 85.5 fl (80-96) 10/31/17 05:50 MCHC 32.1 g/dl (32.0-36.0) 10/31/17 05:50 RDW 18.5 % (11.6-15.6) H 10/31/17 05:50 Plt Count 283 K/MM3 (134-434) 10/31/17 05:50 MPV 7.0 fl (7.5-11.1) L 10/31/17 05:50 CMP Sodium 139 mmol/L (136-145) 10/31/17 05:50 Potassium 4.5 mmol/L (3.5-5.1) 10/31/17 05:50 Chloride 98 mmol/L (98-107) 10/31/17 05:50 Carbon Dioxide 37 mmol/L (21-32) H 10/31/17 05:50 Anion Gap 4 (8-16) L 10/31/17 05:50 BUN 19 mg/dL (7-18) H 10/31/17 05:50 Creatinine 0.5 mg/dL (0.55-1.02) L 10/31/17 05:50 Creat Clearance w eGFR > 60 (>60) 10/31/17 05:50 Random Glucose 169 mg/dL (74-106) H 10/31/17 05:50 Calcium 8.6 mg/dL (8.5-10.1) 10/31/17 05:50 Total Bilirubin 0.2 mg/dL (0.2-1.0) 10/31/17 05:50 AST 17 U/L (15-37) 10/31/17 05:50 ALT 22 U/L (12-78) 10/31/17 05:50 Alkaline Phosphatase 135 U/L (45-117) H 10/31/17 05:50 Total Protein 6.0 g/dl (6.4-8.2) L 10/31/17 05:50 Albumin 2.4 g/dl (3.4-5.0) L 10/31/17 05:50 Assessment: This is a 62 year old female with PMHx of HTN, HLD, pulmonary sarcoidosis/ILD, COPD, OSVALDO, diastolic heart failure, cardiac sarcoidosis, h/o multifocal atrial tachycardia and paroxysmal atrial tachycardia s/p ICD/PPM, h/ o DVT on Eliquis, IDDM, hepatitis C, GERD who presented to the ED with dizziness and near syncope Plan: 1) Sepsis syndrome - Continue Empiric vancomycin and aztreonam - BP improved with IV fluids - Recent admission for acute diverticulitis - Blood cultures with NGTD - Urine culture with group D strep or entero coccus - Appreciate ID consult 2) Changes in vision - Possibly 2/2 hypoperfusion - Symptoms resolved - Head CT with no evidence of acute intracranial pathology. Moderate periventricular and subcortical chronic microvascular ischemic changes seen - F/u neurology consult 3) Near Syncope - Likely 2/2 hypoperfusion - Recent ECHO from 10/04/17: normal LV size and function - F/u carotid dopplers 4) Hx of DVT - Continue Eliquis (reduced dose 2/2 epistaxis and bleeding issues) 5) HTN - Continue Metoprolol 6) Chronic COPD - No evidence of active exacerbation - Continue Prednisone 20mg po daily 7) DM - BGM ACHS - ISS ACHS 8) Chronic diastolic heart failure - Continue Lasix 60mg po daily - No evidence of active exacerbation 9) F/E/N: - Soft diet - Monitor electrolytes 10) Prophylaxis: - On Eliquis 11) Dispo: - Requires continued inpatient care CODE STATUS: FULL CODE Visit type - Emergency Visit Emergency Visit: Yes ED Registration Date: 10/29/17 Care time: The patient presented to the Emergency Department on the above date and was hospitalized for further evaluation of their emergent condition. - New Patient This patient is new to me today: No - Critical Care Critical Care patient: No
--- NOTE | 2017-10-31 16:04 | PN ---
Progress Note, Physician History of Present Illness: OOB in chair No complaints Denies abdominal pain reports normal BM No fever/ chills Tolerating antibiotics - Current Medication List Current Medications: Active Medications Albuterol/Ipratropium (Duoneb -) 1 amp NEB RQID [facility] Last Admin: 10/31/17 12:50 Dose: 1 amp Apixaban (Eliquis -) 2.5 mg PO BID [facility] Last Admin: 10/31/17 10:13 Dose: 2.5 mg Arformoterol Tartrate (Brovana (Restricted To Pulmonology/Resp) -) 1 amp NEB RBID [facility] Last Admin: 10/31/17 08:55 Dose: 1 amp Furosemide (Lasix -) 60 mg PO DAILY [facility] Last Admin: 10/31/17 10:13 Dose: 60 mg Aztreonam 1 gm/ Dextrose 50 mls @ 100 mls/hr IVPB Q8H-IV [facility]; Protocol Last Admin: 10/31/17 10:14 Dose: 100 mls/hr Vancomycin HCl (Vancomycin 1 Gm Premix -) 1 gm in 200 mls @ 133.333 mls/hr IVPB BID@1100,2300 [facility]; Protocol Last Admin: 10/31/17 12:10 Dose: 133.333 mls/hr Insulin Aspart (Novolog Vial Sliding Scale -) 1 vial SQ ACHS [facility]; Protocol Last Admin: 10/31/17 11:57 Dose: 8 units Metoprolol Tartrate (Lopressor -) 25 mg PO BID [facility] Last Admin: 10/31/17 10:12 Dose: 25 mg Montelukast Sodium (Singulair -) 10 mg PO [facility] Last Admin: 10/30/17 23:03 Dose: 10 mg Morphine Sulfate (Ms Contin -) 15 mg PO BID [facility] Last Admin: 10/31/17 10:13 Dose: 15 mg Pantoprazole Sodium (Protonix -) 40 mg PO [facility] Last Admin: 10/30/17 23:03 Dose: 40 mg Potassium Chloride (K-Dur -) 40 meq PO DAILY [facility] Last Admin: 10/31/17 10:12 Dose: 40 meq Prednisone (Deltasone -) 20 mg PO DAILY [facility] Last Admin: 10/31/17 10:14 Dose: 20 mg Pregabalin (Lyrica -) 75 mg PO BID [facility] Last Admin: 10/31/17 10:12 Dose: 75 mg Sodium Chloride ([place] Nasal [place] -) 2 spray NS BID [facility] Last Admin: 10/31/17 10:00 Dose: 2 sprays - Objective Vital Signs: Vital Signs Temperature 98.2 F 10/31/17 14:00 Pulse Rate 96 H 10/31/17 14:00 Respiratory Rate 2 L 10/31/17 14:00 Blood Pressure 94/65 10/31/17 14:00 O2 Sat by Pulse Oximetry (%) 99 10/31/17 09:00 Constitutional: Yes: No Distress Eyes: Yes: Conjunctiva Clear Cardiovascular: Yes: Regular Rate and Rhythm, S1, S2 Respiratory: Yes: CTA Bilaterally Gastrointestinal: Yes: Normal Bowel Sounds, Soft. No: Tenderness Labs: CBC, BMP 10/31/17 05:50 10/31/17 05:50 INR, PTT INR 1.20 (0.82-1.09) H 10/30/17 05:30 Assessment/Plan Sepsis syndrome- improved S/P Acute diverticulitis Multiple antibiotic allergies Await c/s Continue empiric vancomycin/ aztreonam
[2017-10-31] MEDS: MONTELUKAST NA 10 MG TABLET PO SCH (22:30)
[2017-10-31] MEDS: PANTOPRAZOLE 40 MG TABLET (FP) PO SCH (22:30)
[2017-11-01] MEDS ORDERED: PT OWN MED DRAWER 7, Y5N ONE ×4 (01:13→22:42)
[2017-11-01] MEDS: AZTREONAM 1 GM in DEXTROSE 5%-WATER - 50 ML IVPB SCH ×2 (01:16→10:00)
[2017-11-01] MEDS: INSULIN SLIDING SCALE (NOVOLOG) 1 VIAL SQ SCH ×4 (06:24→22:27)
[2017-11-01 06:52] LABS: ANION GAP 6 (8-16); BLOOD UREA NITROGEN 16 mg/dL (7-18); CALCIUM 8.6 mg/dL (8.5-10.1); CHLORIDE 97 mmol/L (98-107); CO2 34 mmol/L (21-32); CREATININE 0.7 mg/dL (0.55-1.02); GLUCOSE,RANDOM 185 mg/dL (74-106); POTASSIUM 4.7 mmol/L (3.5-5.1); SODIUM 137 mmol/L (136-145)
[2017-11-01 06:53] LABS: HEMATOCRIT 25.6 % (32.4-45.2); HEMOGLOBIN 8.3 GM/dL (10.7-15.3); MCH 27.4 pg (25.7-33.7); MCHC 32.5 g/dl (32.0-36.0); MEAN CELL VOLUME 84.3 fl (80-96); MEAN PLT VOLUME 7.2 fl (7.5-11.1); PLATELET COUNT 308 K/MM3 (134-434); RBC 3.03 M/mm3 (3.60-5.2); RDW 18.3 % (11.6-15.6); WHITE BLOOD COUNT 8.7 K/mm3 (4.0-10.0)
[2017-11-01] MEDS: ALBUTEROL SO4 2.5/IPRATROPIUM 0.5 INH SOL 3 ML VIAL.NEB. NEB SCH ×4 (07:40→20:50)
[2017-11-01] MEDS: ARFORMOTEROL TARTRATE 15 MCG/2 ML VIAL NEB SCH ×2 (07:40→20:50)
[2017-11-01] MEDS: APIXABAN 2.5 MG TABLET PO SCH ×2 (09:47→22:27)
[2017-11-01] MEDS: FUROSEMIDE 40 MG TABLET (FP) PO SCH (09:47)
[2017-11-01] MEDS: POTASSIUM CHLORIDE TABS 20 MEQ TABLET.ER (FP) PO SCH (09:47)
[2017-11-01] MEDS: predniSONE 20 MG TABLET (UD) PO SCH (09:47)
[2017-11-01] MEDS: PREGABALIN 75 MG CAPSULE PO SCH ×2 (09:47→22:27)
[2017-11-01] MEDS: SODIUM CHLORIDE NASAL SPRAY 44 ML BOTTLE NS SCH ×2 (10:00→22:27)
[2017-11-01] MEDS: morphine SO4 SUSTAINED ACTING 15 MG TABLET.SA PO SCH ×2 (10:01→22:26)
[2017-11-01] MEDS: METOPROLOL TARTRATE 25 MG TABLET (FP) PO SCH ×2 (10:01→22:27)
--- NOTE | 2017-11-01 10:44 | PN ---
Progress Note, Physician History of Present Illness: PULMONARY ALERT,C/O MILD SOB ALTHOUGH LOOKS COMFORTABLE,-TACHYPNEA - Current Medication List Current Medications: Active Medications Albuterol/Ipratropium (Duoneb -) [address] [facility] Last Admin: 11/01/17 07:40 Dose: Not Given Apixaban (Eliquis -) 2.[address] [facility] Last Admin: 11/01/17 09:47 Dose: 2.5 mg Arformoterol Tartrate (Brovana (Restricted To Pulmonology/Resp) -) [address] [facility] Last Admin: 11/01/17 07:40 Dose: 1 amp Furosemide (Lasix -) [address] [facility] Last Admin: 11/01/17 09:47 Dose: 60 mg Aztreonam 1 gm/ Dextrose 50 mls @ 100 mls/hr IVPB Q8H-IV [facility]; Protocol Last Admin: 11/01/17 01:16 Dose: 100 mls/hr Vancomycin HCl (Vancomycin 1 Gm Premix -) 1 gm in 200 mls @ 133.333 mls/hr IVPB BID@1100,2300 [facility]; Protocol Last Admin: 10/31/17 22:47 Dose: 133.333 mls/hr Insulin Aspart (Novolog Vial Sliding Scale -) [address] [facility]; Protocol Last Admin: 11/01/17 06:24 Dose: Not Given Metoprolol Tartrate (Lopressor -) [address] [facility] Last Admin: 11/01/17 10:01 Dose: Not Given Montelukast Sodium (Singulair -) 10 mg PO [facility] Last Admin: 10/31/17 22:30 Dose: 10 mg Morphine Sulfate (Ms Contin -) [address] [facility] Last Admin: 11/01/17 10:01 Dose: Not Given Pantoprazole Sodium (Protonix -) [address] [facility] Last Admin: 10/31/17 22:30 Dose: 40 mg Potassium Chloride (K-Dur -) [address] [facility] Last Admin: 11/01/17 09:47 Dose: 40 meq Prednisone (Deltasone -) [address] [facility] Last Admin: 11/01/17 09:47 Dose: 20 mg Pregabalin (Lyrica -) [address] [facility] Last Admin: 11/01/17 09:47 Dose: 75 mg Sodium Chloride ([place] Nasal [place] -) 2 spray NS BID [facility] Last Admin: 11/01/17 10:00 Dose: 2 sprays - Objective Vital Signs: Vital Signs Temperature 97.8 F 11/01/17 08:00 Pulse Rate 97 H 11/01/17 08:00 Respiratory Rate 20 11/01/17 09:00 Blood Pressure 91/63 11/01/17 08:00 O2 Sat by Pulse Oximetry (%) 97 11/01/17 09:00 Constitutional: Yes: Well Nourished, Calm Eyes: Yes: WNL HENT: Yes: WNL Neck: Yes: WNL Cardiovascular: Yes: Pulse Irregular, S1, S2 Respiratory: Yes: Rales (BILATERAL CRACKLES) Gastrointestinal: Yes: Normal Bowel Sounds, Soft Extremities: Yes: WNL Edema: No Labs: CBC, BMP 11/01/17 05:30 11/01/17 05:30 INR, PTT INR 1.20 (0.82-1.09) H 10/30/17 05:30 Problem List - Problems (1) Fever Code(s): R50.9 - FEVER, UNSPECIFIED (2) SHERRI (acute kidney injury) Code(s): N17.9 - ACUTE KIDNEY FAILURE, UNSPECIFIED (3) Cardiac sarcoidosis Code(s): 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 (4) Chronic diastolic CHF (congestive heart failure) Code(s): I50.32 - CHRONIC DIASTOLIC (CONGESTIVE) HEART FAILURE (5) Chronic respiratory failure with hypoxia and hypercapnia Code(s): J96.11 - CHRONIC RESPIRATORY FAILURE WITH HYPOXIA; J96.12 - CHRONIC RESPIRATORY FAILURE WITH HYPERCAPNIA (6) Controlled diabetes mellitus with nephropathy Code(s): E11.21 - TYPE 2 DIABETES MELLITUS WITH DIABETIC NEPHROPATHY (7) ICD (implantable cardioverter-defibrillator) in place Code(s): Z95.810 - PRESENCE OF AUTOMATIC (IMPLANTABLE) CARDIAC DEFIBRILLATOR (8) Obstructive sleep apnea Code(s): G47.33 - OBSTRUCTIVE SLEEP APNEA (ADULT) (PEDIATRIC) (9) Oxygen dependent Code(s): Z99.81 - DEPENDENCE ON SUPPLEMENTAL OXYGEN (10) PHT (pulmonary hypertension) Code(s): I27.20 - PULMONARY HYPERTENSION, UNSPECIFIED (11) Sarcoidosis of lung Code(s): D86.0 - SARCOIDOSIS OF LUNG (12) Hypotension Code(s): I95.9 - HYPOTENSION, UNSPECIFIED (13) Diabetes mellitus Code(s): E11.9 - TYPE 2 DIABETES MELLITUS WITHOUT COMPLICATIONS Qualifiers: Diabetes mellitus type: type 2 Diabetes mellitus complication status: without complication (14) Sarcoid Code(s): D86.9 - SARCOIDOSIS, UNSPECIFIED (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
--- NOTE | 2017-11-01 11:15 | PN ---
Progress Note, Physician History of Present Illness: Seated in bed Reports mild dysuria Urine c/s + Enterococcus sp. Denies abdominal pain Mildly tachypneic on nasal cannula O2 No fever/ chills Tolerating antibiotics - Current Medication List Current Medications: Active Medications Albuterol/Ipratropium (Duoneb -) 1 amp NEB RQID [facility] Last Admin: 11/01/17 07:40 Dose: Not Given Apixaban (Eliquis -) 2.5 mg PO BID [facility] Last Admin: 11/01/17 09:47 Dose: 2.5 mg Arformoterol Tartrate (Brovana (Restricted To Pulmonology/Resp) -) 1 amp NEB RBID [facility] Last Admin: 11/01/17 07:40 Dose: 1 amp Furosemide (Lasix -) 60 mg PO DAILY [facility] Last Admin: 11/01/17 09:47 Dose: 60 mg Aztreonam 1 gm/ Dextrose 50 mls @ 100 mls/hr IVPB Q8H-IV [facility]; Protocol Last Admin: 11/01/17 01:16 Dose: 100 mls/hr Vancomycin HCl (Vancomycin 1 Gm Premix -) 1 gm in 200 mls @ 133.333 mls/hr IVPB BID@1100,2300 [facility]; Protocol Last Admin: 10/31/17 22:47 Dose: 133.333 mls/hr Insulin Aspart (Novolog Vial Sliding Scale -) 1 vial SQ ACHS [facility]; Protocol Last Admin: 11/01/17 06:24 Dose: Not Given Metoprolol Tartrate (Lopressor -) 25 mg PO BID [facility] Last Admin: 11/01/17 10:01 Dose: Not Given Montelukast Sodium (Singulair -) 10 mg PO [facility] Last Admin: 10/31/17 22:30 Dose: 10 mg Morphine Sulfate (Ms Contin -) 15 mg PO BID [facility] Last Admin: 11/01/17 10:01 Dose: Not Given Pantoprazole Sodium (Protonix -) 40 mg PO [facility] Last Admin: 10/31/17 22:30 Dose: 40 mg Potassium Chloride (K-Dur -) 40 meq PO DAILY [facility] Last Admin: 11/01/17 09:47 Dose: 40 meq Prednisone (Deltasone -) 20 mg PO DAILY [facility] Last Admin: 11/01/17 09:47 Dose: 20 mg Pregabalin (Lyrica -) 75 mg PO BID [facility] Last Admin: 11/01/17 09:47 Dose: 75 mg Sodium Chloride ([place] Nasal [place] -) 2 spray NS BID [facility] Last Admin: 11/01/17 10:00 Dose: 2 sprays - Objective Vital Signs: Vital Signs Temperature 97.8 F 11/01/17 08:00 Pulse Rate 97 H 11/01/17 08:00 Respiratory Rate 20 11/01/17 09:00 Blood Pressure 91/63 11/01/17 08:00 O2 Sat by Pulse Oximetry (%) 97 11/01/17 09:00 Constitutional: Yes: No Distress, Obese Cardiovascular: Yes: Regular Rate and Rhythm, S2, S3 Respiratory: Yes: Other (+ crepitations, bases bilaterally) Gastrointestinal: Yes: Normal Bowel Sounds, Soft, Abdomen, Obese. No: Tenderness Edema: Yes Labs: CBC, BMP 11/01/17 05:30 11/01/17 05:30 INR, PTT INR 1.20 (0.82-1.09) H 10/30/17 05:30 Assessment/Plan Sepsis syndrome- improved Enterococcal UTI S/P Acute diverticulitis Multiple antibiotic allergies Await final c/s Continue vancomycin . D/C aztreonam
[2017-11-01] MEDS: VANCOMYCIN 1 GM PREMIX - 1 GM/200 ML BAG IVPB SCH ×2 (12:45→22:43)
[2017-11-01] MEDS: MONTELUKAST NA 10 MG TABLET PO SCH (22:26)
[2017-11-01] MEDS: PANTOPRAZOLE 40 MG TABLET (FP) PO SCH (22:27)
[2017-11-01] MEDS: INSULIN (LEVEMIR) 100 UNITS/ML UNITS SQ SCH (22:28)
[2017-11-02 06:32] LABS: BASO % 0.5 % (0-2.0); EOS % 0.1 % (0-4.5); HEMATOCRIT 27.4 % (32.4-45.2); HEMOGLOBIN 8.9 GM/dL (10.7-15.3); LYMPH % 37.8 % (8-40); MCH 27.3 pg (25.7-33.7); MCHC 32.5 g/dl (32.0-36.0); MEAN CELL VOLUME 83.8 fl (80-96); MEAN PLT VOLUME 7.2 fl (7.5-11.1); MONO % 4.2 % (3.8-10.2); NEUT % 57.4 % (42.8-82.8); PLATELET COUNT 350 K/MM3 (134-434); RBC 3.27 M/mm3 (3.60-5.2); RDW 18.4 % (11.6-15.6); WHITE BLOOD COUNT 9.3 K/mm3 (4.0-10.0)
[2017-11-02] MEDS: INSULIN (LEVEMIR) 100 UNITS/ML UNITS SQ SCH ×2 (06:44→21:53)
[2017-11-02] MEDS: INSULIN SLIDING SCALE (NOVOLOG) 1 VIAL SQ SCH ×4 (06:44→21:52)
[2017-11-02 06:57] LABS: CHLORIDE 94 mmol/L (98-107); POTASSIUM 4.5 mmol/L (3.5-5.1); SODIUM 137 mmol/L (136-145)
[2017-11-02 07:15] LABS: ALBUMIN 2.5 g/dl (3.4-5.0); ALK PHOS 128 U/L (45-117); ANION GAP 8 (8-16); BILIRUBIN,TOTAL 0.3 mg/dL (0.2-1.0); BLOOD UREA NITROGEN 15 mg/dL (7-18); CALCIUM 9.1 mg/dL (8.5-10.1); CO2 35 mmol/L (21-32); CREATININE 0.6 mg/dL (0.55-1.02); GLUCOSE,RANDOM 102 mg/dL (74-106); SGOT/AST 14 U/L (15-37); SGPT/ALT 19 U/L (12-78); TOT PROT 6.3 g/dl (6.4-8.2)
[2017-11-02] MEDS: ARFORMOTEROL TARTRATE 15 MCG/2 ML VIAL NEB SCH ×2 (08:05→19:20)
[2017-11-02] MEDS: ALBUTEROL SO4 2.5/IPRATROPIUM 0.5 INH SOL 3 ML VIAL.NEB. NEB SCH ×4 (08:05→19:25)
[2017-11-02 09:15] LABS: ANISOCYTOSIS 1+; PLATELET ESTIMATE ADEQUATE
[2017-11-02] MEDS: FUROSEMIDE 40 MG TABLET (FP) PO SCH (09:40)
[2017-11-02] MEDS: morphine SO4 SUSTAINED ACTING 15 MG TABLET.SA PO SCH ×2 (09:40→21:51)
[2017-11-02] MEDS: POTASSIUM CHLORIDE TABS 20 MEQ TABLET.ER (FP) PO SCH (09:40)
[2017-11-02] MEDS: METOPROLOL TARTRATE 25 MG TABLET (FP) PO SCH ×2 (09:41→21:51)
[2017-11-02] MEDS: APIXABAN 2.5 MG TABLET PO SCH ×2 (09:41→21:52)
[2017-11-02] MEDS: predniSONE 20 MG TABLET (UD) PO SCH (09:41)
[2017-11-02] MEDS: SODIUM CHLORIDE NASAL SPRAY 44 ML BOTTLE NS SCH ×2 (09:52→21:52)
[2017-11-02] MEDS: PREGABALIN 75 MG CAPSULE PO SCH ×2 (10:00→21:51)
--- NOTE | 2017-11-02 10:20 | PN ---
Progress Note, Physician History of Present Illness: PULMONARY ALERT,C/O SOB,-CP - Current Medication List Current Medications: Active Medications Albuterol/Ipratropium (Duoneb -) 1 amp NEB RQID [facility] Last Admin: 11/02/17 08:05 Dose: 1 amp Apixaban (Eliquis -) 2.5 mg PO BID [facility] Last Admin: 11/02/17 09:41 Dose: 2.5 mg Arformoterol Tartrate (Brovana (Restricted To Pulmonology/Resp) -) 1 amp NEB RBID [facility] Last Admin: 11/02/17 08:05 Dose: 1 amp Furosemide (Lasix -) 60 mg PO DAILY [facility] Last Admin: 11/02/17 09:40 Dose: 60 mg Vancomycin HCl (Vancomycin 1 Gm Premix -) 1 gm in 200 mls @ 133.333 mls/hr IVPB BID@1100,2300 [facility]; Protocol Last Admin: 11/01/17 22:43 Dose: 133.333 mls/hr Insulin Aspart (Novolog Vial Sliding Scale -) 1 vial SQ ACHS [facility]; Protocol Last Admin: 11/02/17 06:44 Dose: Not Given Insulin Detemir (Levemir Vial) 30 units SQ HS [facility] Last Admin: 11/01/17 22:28 Dose: 30 units Insulin Detemir (Levemir Vial) 20 units SQ AM [facility] Last Admin: 11/02/17 06:44 Dose: 20 units Metoprolol Tartrate (Lopressor -) 25 mg PO BID [facility] Last Admin: 11/02/17 09:41 Dose: 25 mg Montelukast Sodium (Singulair -) 10 mg PO HS [facility] Last Admin: 11/01/17 22:26 Dose: 10 mg Morphine Sulfate (Ms Contin -) 15 mg PO BID [facility] Last Admin: 11/02/17 09:40 Dose: 15 mg Pantoprazole Sodium (Protonix -) 40 mg PO [facility] Last Admin: 11/01/17 22:27 Dose: 40 mg Potassium Chloride (K-Dur -) 40 meq PO DAILY [facility] Last Admin: 11/02/17 09:40 Dose: 40 meq Prednisone (Deltasone -) 20 mg PO DAILY [facility] Last Admin: 11/02/17 09:41 Dose: 20 mg Pregabalin (Lyrica -) 75 mg PO BID [facility] Last Admin: 11/01/17 22:27 Dose: 75 mg Sodium Chloride ([place] Nasal [place] -) 2 spray NS BID [facility] Last Admin: 11/02/17 09:52 Dose: 2 sprays - Objective Vital Signs: Vital Signs Temperature 98.1 F 11/02/17 05:00 Pulse Rate 82 11/02/17 05:00 Respiratory Rate 20 11/02/17 05:00 Blood Pressure 95/68 11/02/17 05:00 O2 Sat by Pulse Oximetry (%) 96 11/01/17 21:00 Constitutional: Yes: Well Nourished, Calm Eyes: Yes: WNL HENT: Yes: WNL Neck: Yes: WNL Cardiovascular: Yes: Regular Rate and Rhythm, S1, S2 Respiratory: Yes: Rales, Rhonchi (BILATERAL CRACKLES WITH SCATTERED RHONCHI) Gastrointestinal: Yes: Normal Bowel Sounds, Soft Extremities: Yes: WNL Edema: No Labs: CBC, BMP 11/02/17 05:30 11/02/17 05:30 INR, PTT INR 1.20 (0.82-1.09) H 10/30/17 05:30 Problem List - Problems (1) Fever Code(s): R50.9 - FEVER, UNSPECIFIED (2) SHERRI (acute kidney injury) Code(s): N17.9 - ACUTE KIDNEY FAILURE, UNSPECIFIED (3) Cardiac sarcoidosis Code(s): 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 (4) Chronic diastolic CHF (congestive heart failure) Code(s): I50.32 - CHRONIC DIASTOLIC (CONGESTIVE) HEART FAILURE (5) Chronic respiratory failure with hypoxia and hypercapnia Code(s): J96.11 - CHRONIC RESPIRATORY FAILURE WITH HYPOXIA; J96.12 - CHRONIC RESPIRATORY FAILURE WITH HYPERCAPNIA (6) Controlled diabetes mellitus with nephropathy Code(s): E11.21 - TYPE 2 DIABETES MELLITUS WITH DIABETIC NEPHROPATHY (7) ICD (implantable cardioverter-defibrillator) in place Code(s): Z95.810 - PRESENCE OF AUTOMATIC (IMPLANTABLE) CARDIAC DEFIBRILLATOR (8) Obstructive sleep apnea Code(s): G47.33 - OBSTRUCTIVE SLEEP APNEA (ADULT) (PEDIATRIC) (9) Oxygen dependent Code(s): Z99.81 - DEPENDENCE ON SUPPLEMENTAL OXYGEN (10) PHT (pulmonary hypertension) Code(s): I27.20 - PULMONARY HYPERTENSION, UNSPECIFIED (11) Sarcoidosis of lung Code(s): D86.0 - SARCOIDOSIS OF LUNG (12) Hypotension Code(s): I95.9 - HYPOTENSION, UNSPECIFIED (13) Diabetes mellitus Code(s): E11.9 - TYPE 2 DIABETES MELLITUS WITHOUT COMPLICATIONS Qualifiers: Diabetes mellitus type: type 2 Diabetes mellitus complication status: without complication (14) Sarcoid Code(s): D86.9 - SARCOIDOSIS, UNSPECIFIED (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
[2017-11-02] MEDS: VANCOMYCIN 1 GM PREMIX - 1 GM/200 ML BAG IVPB SCH (11:36)
[2017-11-02] MEDS ORDERED: MAG HYDROX/AL HYDROX/SIMETH 30 ML UNIT-DOSE CUP PO PRN (13:55)
--- NOTE | 2017-11-02 15:14 | PN ---
Progress Note (short form) - Note Progress Note: notes dysuria that is persistent Vital Signs Period Temp Pulse Resp BP Sys/[place] Pulse Ox Last 24 Hr 97.8 F-98.6 F 80-104 20-20 95-125/67-83 96-96 cor-rrr lungs crackles at the bases abd soft,nt CBC, BMP 11/02/17 05:30 11/02/17 05:30 Microbiology 10/29/17 20:47 Urine - Urine - Catheterized Urine Culture - Final Vr Ec Faecalis 10/29/17 19:50 Blood - Peripheral Venous Blood Culture - Preliminary NO GROWTH OBTAINED AFTER 72 HOURS, INCUBATION TO CONTINUE FOR 2 DAYS. 10/29/17 19:50 Blood - Peripheral Venous Blood Culture - Preliminary NO GROWTH OBTAINED AFTER 72 HOURS, INCUBATION TO CONTINUE FOR 2 DAYS. a/p d/w Dr Spence sepsis syndrome UTI- VRE noted will d/c vancomycin and start zyvox s/p acute diverticulitis multiple antibiotic allergies noted d/w hospitalist
[2017-11-02] MEDS ORDERED: LINEZOLID 600 MG PREMIX BAG 600 MG/300 ML BAG IVPB SCH ×2 (16:00→21:00)
--- NOTE | 2017-11-02 20:00 | PN ---
Progress Note (short form) - Note Progress Note: Subjective: The patient was seen and examined at the bedside, she has no complaints at this time.\ Discussed with CHERI Moreno UTI, will start Linezolid Current Medications Generic Name Dose Route Start Last Admin Trade Name Freq PRN Reason Stop Dose Admin Al Hydroxide/Mg Hydroxide 30 ml 11/02/17 13:55 Mylanta Oral Suspension - PO Q6H PRN DYSPEPSIA Albuterol/Ipratropium 1 amp 10/30/17 20:00 11/02/17 16:31 Duoneb - NEB 1 amp RQID EYAL Administration Apixaban 2.5 mg 10/30/17 22:00 11/02/17 09:41 Eliquis - PO 2.5 mg BID EYAL Administration Arformoterol Tartrate 1 amp 10/30/17 20:00 11/02/17 08:05 Brovana (Restricted To Pulmonology/Resp) - NEB 1 amp RBID EYAL Administration Furosemide 60 mg 10/31/17 10:00 11/02/17 09:40 Lasix - PO 60 mg DAILY EYAL Administration Linezolid 600 mg in 300 mls @ 300 mls/hr 11/02/17 16:00 11/02/17 16:19 Zyvox 600 Mg Premix Bag (Restricted To Id) - IVPB Not Given BID@0400,1600 EYAL Protocol Insulin Aspart 1 vial 10/30/17 16:30 11/02/17 17:00 Novolog Vial Sliding Scale - SQ 6 units ACHS EYAL Administration Protocol Insulin Detemir 30 units 11/01/17 22:00 11/01/17 22:28 Levemir Vial SQ 30 units HS EYAL Administration Insulin Detemir 20 units 11/02/17 07:00 11/02/17 06:44 Levemir Vial SQ 20 units AM EYAL Administration Metoprolol Tartrate 25 mg 10/30/17 11:47 11/02/17 09:41 Lopressor - PO 25 mg BID EYAL Administration Montelukast Sodium 10 mg 10/30/17 22:00 11/01/17 22:26 Singulair - PO 10 mg HS EYAL Administration Morphine Sulfate 15 mg 10/30/17 22:00 11/02/17 09:40 Ms Contin - PO 15 mg BID EYAL Administration Pantoprazole Sodium 40 mg 10/30/17 22:00 11/01/17 22:27 Protonix - PO 40 mg HS EYAL Administration Potassium Chloride 40 meq 10/31/17 10:00 11/02/17 09:40 K-Dur - PO 40 meq DAILY EYAL Administration Prednisone 20 mg 10/31/17 10:00 11/02/17 09:41 Deltasone - PO 20 mg DAILY EYAL Administration Pregabalin 75 mg 10/30/17 22:00 11/02/17 10:00 Lyrica - PO 75 mg BID EYAL Administration Sodium Chloride 2 spray 10/30/17 22:00 11/02/17 09:52 [place] Nasal [place] - NS 2 sprays BID EYAL Administration Objective: Vital Signs Period Temp Pulse Resp BP Sys/Londono Pulse Ox Last 24 Hr 97.8 F-98.6 F 80-85 20-20 95-125/67-83 96-96 Physical Exam: General: NAD, A&Ox3 Lungs: B/l rhonchi Heart: RRR, S1S2 Abd: Soft, non-tender, non-distended Ext: Warm, well-perfused CBCD WBC 9.3 K/mm3 (4.0-10.0) 11/02/17 05:30 RBC 3.27 M/mm3 (3.60-5.2) L 11/02/17 05:30 Hgb 8.9 GM/dL (10.7-15.3) L 11/02/17 05:30 Hct 27.4 % (32.4-45.2) L 11/02/17 05:30 MCV 83.8 fl (80-96) 11/02/17 05:30 MCHC 32.5 g/dl (32.0-36.0) 11/02/17 05:30 RDW 18.4 % (11.6-15.6) H 11/02/17 05:30 Plt Count 350 K/MM3 (134-434) 11/02/17 05:30 MPV 7.2 fl (7.5-11.1) L 11/02/17 05:30 CMP Sodium 137 mmol/L (136-145) 11/02/17 05:30 Potassium 4.5 mmol/L (3.5-5.1) 11/02/17 05:30 Chloride 94 mmol/L (98-107) L 11/02/17 05:30 Carbon Dioxide 35 mmol/L (21-32) H 11/02/17 05:30 Anion Gap 8 (8-16) 11/02/17 05:30 BUN 15 mg/dL (7-18) 11/02/17 05:30 Creatinine 0.6 mg/dL (0.55-1.02) 11/02/17 05:30 Creat Clearance w eGFR > 60 (>60) 11/02/17 05:30 Random Glucose 102 mg/dL (74-106) 11/02/17 05:30 Calcium 9.1 mg/dL (8.5-10.1) 11/02/17 05:30 Total Bilirubin 0.3 mg/dL (0.2-1.0) 11/02/17 05:30 AST 14 U/L (15-37) L 11/02/17 05:30 ALT 19 U/L (12-78) 11/02/17 05:30 Alkaline Phosphatase 128 U/L (45-117) H 11/02/17 05:30 Total Protein 6.3 g/dl (6.4-8.2) L 11/02/17 05:30 Albumin 2.5 g/dl (3.4-5.0) L 11/02/17 05:30 CARDIAC ENZYMES Creatine Kinase 20 IU/L (26-192) L 11/01/17 15:00 Troponin I < 0.02 ng/ml (0.00-0.05) 11/01/17 15:00 Microbiology 10/29/17 20:47 Urine - Urine - Catheterized Urine Culture - Final Vr Ec Faecalis 10/29/17 19:50 Blood - Peripheral Venous Blood Culture - Preliminary NO GROWTH OBTAINED AFTER 72 HOURS, INCUBATION TO CONTINUE FOR 2 DAYS. 10/29/17 19:50 Blood - Peripheral Venous Blood Culture - Preliminary NO GROWTH OBTAINED AFTER 72 HOURS, INCUBATION TO CONTINUE FOR 2 DAYS. Assessment: This is a 62 year old female with PMHx of HTN, HLD, pulmonary sarcoidosis/ILD, COPD, OSVALDO, diastolic heart failure, cardiac sarcoidosis, h/o multifocal atrial tachycardia and paroxysmal atrial tachycardia s/p ICD/PPM, h/ o DVT on Eliquis, IDDM, hepatitis C, GERD who presented to the ED with dizziness and near syncope Plan: 1) Sepsis syndrome, VRE UTI - Patient lost IV access this morning, notified by RN this afternoon. Called and spoke to anesthesia who will place IV line now (7pm) - Start Linezolid IVPB bid - Patient has multiple abx allergies, RN aware to monitor closely for reaction - Recent admission for acute diverticuliti - Blood cultures with NGTD - Appreciate ID consult 2) Changes in vision - Possibly 2/2 hypoperfusion - Symptoms resolved - Head CT with no evidence of acute intracranial pathology. Moderate periventricular and subcortical chronic microvascular ischemic changes seen - Appreciate neurology consult 3) Near Syncope - Likely 2/2 hypoperfusion - Recent ECHO from 10/04/17: normal LV size and function 4) Hx of DVT - Continue Eliquis (reduced dose 2/2 epistaxis and bleeding issues) 5) HTN - Switched from Cardizem to Lopressor 6) Chronic COPD - No evidence of active exacerbation - Continue Prednisone 20mg po daily 7) DM - BGM ACHS - ISS ACHS 8) Chronic diastolic heart failure - Continue Lasix 60mg po daily - No evidence of active exacerbation 9) F/E/N: - Soft diet - Monitor electrolytes 10) Prophylaxis: - On Eliquis 11) Dispo: - Requires continued inpatient care CODE STATUS: FULL CODE Visit type - Emergency Visit Emergency Visit: Yes ED Registration Date: 10/29/17 Care time: The patient presented to the Emergency Department on the above date and was hospitalized for further evaluation of their emergent condition. - New Patient This patient is new to me today: No - Critical Care Critical Care patient: No
[2017-11-02] MEDS ORDERED: LINEZOLID 600 MG PREMIX BAG 600 MG/300 ML BAG IVPB ONE (21:00)
[2017-11-02] MEDS: PANTOPRAZOLE 40 MG TABLET (FP) PO SCH (21:52)
[2017-11-02] MEDS: MONTELUKAST NA 10 MG TABLET PO SCH (21:52)
[2017-11-03] MEDS: INSULIN (LEVEMIR) 100 UNITS/ML UNITS SQ SCH (06:35)
[2017-11-03] MEDS: INSULIN SLIDING SCALE (NOVOLOG) 1 VIAL SQ SCH ×3 (06:36→18:01)
[2017-11-03 07:25] LABS: HEMATOCRIT 26.1 % (32.4-45.2); HEMOGLOBIN 8.6 GM/dL (10.7-15.3); MCH 27.7 pg (25.7-33.7); MCHC 32.9 g/dl (32.0-36.0); MEAN CELL VOLUME 84.2 fl (80-96); MEAN PLT VOLUME 7.2 fl (7.5-11.1); PLATELET COUNT 345 K/MM3 (134-434); WHITE BLOOD COUNT 8.4 K/mm3 (4.0-10.0)
[2017-11-03 07:54] LABS: ALBUMIN 2.5 g/dl (3.4-5.0); ANION GAP 4 (8-16); BLOOD UREA NITROGEN 24 mg/dL (7-18); CHLORIDE 93 mmol/L (98-107); CO2 37 mmol/L (21-32); GLUCOSE,RANDOM 163 mg/dL (74-106); POTASSIUM 4.4 mmol/L (3.5-5.1); SODIUM 134 mmol/L (136-145)
[2017-11-03 07:59] LABS: ALK PHOS 127 U/L (45-117); BILIRUBIN,TOTAL 0.1 mg/dL (0.2-1.0); CREATININE 0.6 mg/dL (0.55-1.02); SGOT/AST 14 U/L (15-37); SGPT/ALT 21 U/L (12-78); TOT PROT 6.5 g/dl (6.4-8.2)
[2017-11-03] MEDS: ARFORMOTEROL TARTRATE 15 MCG/2 ML VIAL NEB SCH (08:53)
[2017-11-03] MEDS: ALBUTEROL SO4 2.5/IPRATROPIUM 0.5 INH SOL 3 ML VIAL.NEB. NEB SCH ×3 (08:53→15:10)
[2017-11-03] MEDS: POTASSIUM CHLORIDE TABS 20 MEQ TABLET.ER (FP) PO SCH (10:26)
[2017-11-03] MEDS: METOPROLOL TARTRATE 25 MG TABLET (FP) PO SCH (10:26)
[2017-11-03] MEDS: APIXABAN 2.5 MG TABLET PO SCH (10:26)
[2017-11-03] MEDS: PREGABALIN 75 MG CAPSULE PO SCH (10:26)
[2017-11-03] MEDS: morphine SO4 SUSTAINED ACTING 15 MG TABLET.SA PO SCH (10:26)
[2017-11-03] MEDS: predniSONE 20 MG TABLET (UD) PO SCH (10:26)
[2017-11-03] MEDS: FUROSEMIDE 40 MG TABLET (FP) PO SCH (10:26)
--- NOTE | 2017-11-03 10:29 | PN ---
Progress Note, Physician History of Present Illness: PULMONARY ALERT,COMFORTABLE,LESS DYSPNEIC. - Current Medication List Current Medications: Active Medications Al Hydroxide/Mg Hydroxide (Mylanta Oral Suspension -) 30 ml PO Q6H PRN PRN Reason: DYSPEPSIA Albuterol/Ipratropium (Duoneb -) 1 amp NEB RQID [facility] Last Admin: 11/03/17 08:53 Dose: Not Given Apixaban (Eliquis -) 2.5 mg PO BID [facility] Last Admin: 11/02/17 21:52 Dose: 2.5 mg Arformoterol Tartrate (Brovana (Restricted To Pulmonology/Resp) -) 1 amp NEB RBID [facility] Last Admin: 11/03/17 08:53 Dose: 1 amp Furosemide (Lasix -) 60 mg PO DAILY [facility] Last Admin: 11/02/17 09:40 Dose: 60 mg Insulin Aspart (Novolog Vial Sliding Scale -) 1 vial SQ [facility]; Protocol Last Admin: 11/03/17 06:36 Dose: 2 units Insulin Detemir (Levemir Vial) 30 units SQ HS [facility] Last Admin: 11/02/17 21:53 Dose: 30 units Insulin Detemir (Levemir Vial) 20 units SQ AM [facility] Last Admin: 11/03/17 06:35 Dose: 20 units Metoprolol Tartrate (Lopressor -) 25 mg PO BID [facility] Last Admin: 11/02/17 21:51 Dose: 25 mg Montelukast Sodium (Singulair -) 10 mg PO HS [facility] Last Admin: 11/02/17 21:52 Dose: 10 mg Morphine Sulfate (Ms Contin -) 15 mg PO BID [facility] Last Admin: 11/02/17 21:51 Dose: 15 mg Nitrofurantoin Macrocrystals (Macrodantin -) 100 mg PO BID [facility] Pantoprazole Sodium (Protonix -) 40 mg PO HS [facility] Last Admin: 11/02/17 21:52 Dose: 40 mg Potassium Chloride (K-Dur -) 40 meq PO DAILY [facility] Last Admin: 11/02/17 09:40 Dose: 40 meq Prednisone (Deltasone -) 20 mg PO DAILY [facility] Last Admin: 11/02/17 09:41 Dose: 20 mg Pregabalin (Lyrica -) 75 mg PO BID [facility] Last Admin: 11/02/17 21:51 Dose: 75 mg Sodium Chloride ([place] Nasal [place] -) 2 spray NS BID EYAL Last Admin: 11/02/17 21:52 Dose: 2 sprays - Objective Vital Signs: Vital Signs Temperature 97.7 F 11/03/17 06:00 Pulse Rate 91 H 11/03/17 06:00 Respiratory Rate 18 11/03/17 06:00 Blood Pressure 104/75 11/03/17 06:00 O2 Sat by Pulse Oximetry (%) 100 11/02/17 21:00 Constitutional: Yes: Well Nourished, Calm Eyes: Yes: WNL HENT: Yes: WNL Neck: Yes: WNL Cardiovascular: Yes: Pulse Irregular, S1, S2 Respiratory: Yes: Rales (BILATERAL RHONCHI AND CRACKLES), Rhonchi Gastrointestinal: Yes: Normal Bowel Sounds, Soft Extremities: Yes: WNL Edema: No Labs: CBC, BMP 11/03/17 06:20 11/03/17 06:20 INR, PTT INR 1.20 (0.82-1.09) H 10/30/17 05:30 Problem List - Problems (1) Fever Code(s): R50.9 - FEVER, UNSPECIFIED (2) SHERRI (acute kidney injury) Code(s): N17.9 - ACUTE KIDNEY FAILURE, UNSPECIFIED (3) Cardiac sarcoidosis Code(s): 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 (4) Chronic diastolic CHF (congestive heart failure) Code(s): I50.32 - CHRONIC DIASTOLIC (CONGESTIVE) HEART FAILURE (5) Chronic respiratory failure with hypoxia and hypercapnia Code(s): J96.11 - CHRONIC RESPIRATORY FAILURE WITH HYPOXIA; J96.12 - CHRONIC RESPIRATORY FAILURE WITH HYPERCAPNIA (6) Controlled diabetes mellitus with nephropathy Code(s): E11.21 - TYPE 2 DIABETES MELLITUS WITH DIABETIC NEPHROPATHY (7) ICD (implantable cardioverter-defibrillator) in place Code(s): Z95.810 - PRESENCE OF AUTOMATIC (IMPLANTABLE) CARDIAC DEFIBRILLATOR (8) Obstructive sleep apnea Code(s): G47.33 - OBSTRUCTIVE SLEEP APNEA (ADULT) (PEDIATRIC) (9) Oxygen dependent Code(s): Z99.81 - DEPENDENCE ON SUPPLEMENTAL OXYGEN (10) PHT (pulmonary hypertension) Code(s): I27.20 - PULMONARY HYPERTENSION, UNSPECIFIED (11) Sarcoidosis of lung Code(s): D86.0 - SARCOIDOSIS OF LUNG (12) Hypotension Code(s): I95.9 - HYPOTENSION, UNSPECIFIED (13) Diabetes mellitus Code(s): E11.9 - TYPE 2 DIABETES MELLITUS WITHOUT COMPLICATIONS Qualifiers: Diabetes mellitus type: type 2 Diabetes mellitus complication status: without complication (14) Sarcoid Code(s): D86.9 - SARCOIDOSIS, UNSPECIFIED (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
[2017-11-03] MEDS ORDERED: NITROFURANTOIN MACROCRYSTAL 50 MG CAPSULE (FP) PO ONE (10:30)
[2017-11-03] MEDS: SODIUM CHLORIDE NASAL SPRAY 44 ML BOTTLE NS SCH (10:48)
[2017-11-03] MEDS ORDERED: INSULIN (NOVOLOG) ASPART 100 UNITS/ML 10ML VIAL ONE (11:48)
--- NOTE | 2017-11-03 13:40 | DS ---
Physical Exam: SUBJECTIVE: Patient seen and examined. She feels well, has some constipation would like bowel regime for home OBJECTIVE: Vital Signs Period Temp Pulse Resp BP Sys/Londono Pulse Ox Last 24 Hr 97.7 F-98.4 F 80-109 18-20 98-112/66-79 100 PE Neuro: alert, awake, cn 2-12intact Pulm: diffuse rhonchi, crackles + nc CV: s1 s2 rrr Abd: s nt nd +bs Ext: warm, no le edema Laboratory Results - last 24 hr 11/03/17 11/03/17 11/03/17 06:20 06:20 11:46 WBC 8.4 RBC 3.10 L Hgb 8.6 L Hct 26.1 L MCV 84.2 MCH 27.7 MCHC 32.9 RDW 18.0 H Plt Count 345 MPV 7.2 L Sodium 134 L Potassium 4.4 Chloride 93 L Carbon Dioxide 37 H Anion Gap 4 L BUN 24 H Creatinine 0.6 Creat Clearance w eGFR > 60 POC Glucometer 278 Random Glucose 163 H Calcium 9.0 Total Bilirubin 0.1 L AST 14 L ALT 21 Alkaline Phosphatase 127 H Total Protein 6.5 Albumin 2.5 L HOSPITAL COURSE: Date of Admission:10/29/17 Date of Discharge: 11/03/17 Minutes to complete discharge: 37 Discharge Summary Reason For Visit: FEVER,DUAL IMPLANTABLE CARDIOVERTER-DEFIBRILLATOR Current Active Problems Abdominal pain (Acute) Fever (Acute) Hypotension (Acute) Hospital Course: Initial Hospital Course: Briefly, this 62 year old female presented with blurry vision and dizziness. Family found BP of 70 systolic. Recently hospitalized here for AMS?/?Seizures? and UTI?She was transferred to [facility] for "seizures" and diverticular disease and was discharged. She has a history of Dementia, CHF, ?Ferrer- José syndrome, Deep Vein Thrombosis (On Eliquis), ICD, HTN, Hyperlipidemia, Pulmonary Hypertension, Asthma, COPD, (Previously Intubated), Sleep Apnea, Pulmonary Fibrosis, O2 & steroid Dependent, GERD, Hepatitis C, Anemia, Chronic low back pain, Pacemaker Sarcoidosis (cardiac and pulmonary), and NIDDM. She has not walked in > 6 years. Has electric W/C and requires 2 family members to transfer bed to W/C. In the ER her initial BP systolic BP was 100 mmHg which is close to her baseline BP and there was no intervention that caused the BP to come up from the lower values noted by the family at home. She also had a low grade fever on arrival. Subsequent Hospital Course/Progress Note/DC Summary: Assessment: 62 year old female with PMHx of HTN, HLD, pulmonary sarcoidosis/ILD , COPD, OSVALDO, diastolic heart failure, cardiac sarcoidosis, h/o multifocal atrial tachycardia and paroxysmal atrial tachycardia s/p ICD/PPM, h/o DVT on Eliquis, IDDM, hepatitis C, GERD who presented to the ED with dizziness and near syncope Plan: 1. Sepsis syndrome, VRE UTI - Home with macrobid 100mg BID x7days 2. Changes in vision - Possibly 2/2 hypoperfusion - Symptoms resolved - Head CT with no evidence of acute intracranial pathology. Moderate periventricular and subcortical chronic microvascular ischemic changes seen 3. Near Syncope - Likely 2/2 hypoperfusion - Recent ECHO from 10/04/17: normal LV size and function 4. Hx of DVT - Continue Eliquis (reduced dose 2/2 epistaxis and bleeding issues) 5. HTN - Switched from Cardizem to Lopressor 25mg BID 6. Chronic COPD - No evidence of active exacerbation - Continue Prednisone 20mg po daily - Continue oxygen 3L NC 7. DM - Cont home insulin 8. Chronic diastolic heart failure - Continue Lasix 60mg po daily - No evidence of active exacerbation Dispo: - Home with home care and aid - Medications as listed above Condition: Stable - Instructions Diet, Activity, Other Instructions: Please return to the ED for any new, persistent, or worsening symptoms. Follow up with your PCP in 1 week Continue medications as directed Note new medication: Lopressor BID and take antibiotics Macrobid until completed Referrals: Tu Rivera MD [Staff Physician] - Whit Fuchs MD [Staff Physician] - Disposition: HOME - Home Medications Comprehensive Discharge Medication List: Ambulatory Orders Albuterol 2.5/Ipratropium 0.5 [Duoneb -] 1 amp NEB RQID amp 10/20/17 Apixaban [Eliquis -] 2.5 mg PO BID tablet 10/20/17 Arformoterol Tartrate [Brovana -] 1 amp NEB RBID amp 10/20/17 Furosemide [Lasix -] 60 mg PO DAILY tablet 10/20/17 Insulin (Levemir) [Levemir Vial] 38 units SQ HS units 10/20/17 Insulin (Levemir) [Levemir Vial] 45 units SQ HS #45 units 10/20/17 Insulin (Novolog) [Novolog -] 0 units SQ ACHS units 10/20/17 Lisinopril [Prinivil] 10 mg PO DAILY tablet 10/20/17 Mag Hydrox/Al Hydrox/Simeth [MAALOX *SUSPENSION* -] 30 ml PO Q6H PRN ml Metoclopramide HCl [Reglan -] 5 mg PO TID tablet 10/20/17 Montelukast Na [Singulair -] 10 mg PO HS tablet 10/20/17 Morphine *Sr* [Ms Contin -] 15 mg PO BID #1 tablet.sa MDD 2 10/20/17 Nitroglycerin Sublingual [Nitrostat -] 0.4 mg SL ASDIR PRN tab 10/20/17 Pantoprazole Sodium [Protonix -] 40 mg PO HS tablet.ec 10/20/17 Polyethylene Glycol 3350 [Miralax 119 gm Btl -] 17 gm PO BID bottle 10/20/17 Pregabalin [Lyrica -] 75 mg PO BID #1 capsule MDD 2 10/20/17 Sennosides [Senna -] 1 tab PO HS tablet 10/20/17 predniSONE [Deltasone -] 20 mg PO DAILY tablet 10/20/17 predniSONE [Deltasone -] 40 mg PO DAILY tablet 10/20/17 Metoprolol Tartrate [Lopressor -] 25 mg PO BID #60 tablet 11/03/17 Nitrofurantoin Monohyd/M-Cryst [Macrobid -] 100 mg PO BID #13 capsule 11/03/17 This patient is new to me today: Yes Date on this admission: 11/03/17 Emergency Visit: Yes ED Registration Date: 10/29/17 Care time: The patient presented to the Emergency Department on the above date and was hospitalized for further evaluation of their emergent condition. Critical Care patient: No - Discharge Referral Referred to [facility] Med P.C.: No
[2017-11-03 14:37] VITALS: BP 104/70; PULSE 84; TEMP 99.2
[2017-11-03] MEDS ORDERED: DOCUSATE SODIUM 100 MG CAPSULE (FP) PO ONE (14:45)
[2017-11-03] MEDS ORDERED: POLYETHYLENE GLYCOL 3350 119 GM BTL PO ONE (14:45)
[2017-11-03] MEDS ORDERED: SENNOSIDES 8.6MG TABLET (FP) PO SCH (14:45)
[2017-11-03] MEDS ORDERED: BISACODYL 10 MG SUPP.RECT RC STA (18:16)
== END 2017-11-03 18:10 | disposition home or self-care (01) | DRG 720 ==
LOC: JER 17:05 → JERBED 22:46 → JICU 10-30 00:15 → J4W 10-30 17:57
PROVIDERS: ADMIT Internal Medicine; ATTEND Nurse Practitioner Acute Care
DX: A41.9 Sepsis, unspecified organism (principal); F03.90 Unspecified dementia, unspecified severity, without behavioral disturbance, psychotic disturbance, mood disturbance, and anxiety; E11.9 Type 2 diabetes mellitus without complications; R10.9 Unspecified abdominal pain; R50.9 Fever, unspecified; I95.9 Hypotension, unspecified; E78.5 Hyperlipidemia, unspecified; N39.0 Urinary tract infection, site not specified; R55 Syncope and collapse; I11.0 Hypertensive heart disease with heart failure; J44.9 Chronic obstructive pulmonary disease, unspecified; I50.32 Chronic diastolic (congestive) heart failure; K21.9 Gastro-esophageal reflux disease without esophagitis; Z95.810 Presence of automatic (implantable) cardiac defibrillator; J96.11 Chronic respiratory failure with hypoxia; B95.2 Enterococcus as the cause of diseases classified elsewhere; I48.91 Unspecified atrial fibrillation; E88.09 Other disorders of plasma-protein metabolism, not elsewhere classified; D86.0 Sarcoidosis of lung; J96.12 Chronic respiratory failure with hypercapnia; I27.20 Pulmonary hypertension, unspecified; G47.33 Obstructive sleep apnea (adult) (pediatric); M54.5 Low back pain; R41.82 Altered mental status, unspecified; E11.21 Type 2 diabetes mellitus with diabetic nephropathy; N17.9 Acute kidney failure, unspecified
CPT/HCPCS: 36415; 70450-TC; 71045-TC-FY; 80048; 80053; 81003; 81015; 82550; 82962; 83605; 83735; 84100; 84484; 85025; 85027; 85610; 85730; 87040; 87086; 87186; 93005; 93010; 93880-TC; 94640; 99283-25; G0480; J0131; J7620

== ENCOUNTER 2017-11-28 12:20 | Inpatient (IN) | payer OTHER ==
[2017-11-28 12:45] VITALS: BMI 33.7
--- NOTE | 2017-11-28 12:55 | PDOC ---
History of Present Illness - General Chief Complaint: Shortness of Breath Stated Complaint: SOB Time Seen by Provider: 11/28/17 12:44 History Source: Patient Exam Limitations: No Limitations - History of Present Illness Initial Comments: CHIEF COMPLAINT: 62 y/o afebrile female with PMH of dementia, CHF, DVT (on Eliquis), HTN, HLD, Pulmonary hypertension, asthma, COPD, Previously intubated, Sleep Apnea, pulmonary fibrosis (4L continuous O2 via NC at [facility]), GERD , Hep C, Anemia, chronic LBP, Sarcoidosis (pulmonary and cardiac) and DM c/o difficulty breathing for the past 2 days with green productive sputum. HISTORY OF PRESENT ILLNESS: The patient was BIB EMS from [facility]. She states they took an xray yesterday and told her she had pneumonia. She was started on Erythromycin (she has a green josé reaction to azithro). However, she feels no better today despite antibiotics so they sent her here for evaluation. She states she's been cold but denies feeling feverish. She denies LAURENT, n/v/d, CP, hemptysis, abd pain, back pain. leg swelling. She has orthopnea but that is chronic. Vital signs on arrival are notable for pulse of 99. Allergies: Amoxicillin, aspirin, azithromycin, bacitracin, ciprofloxacin, clavulanic acid, codeine, ketorolac, levofloxacin, metronidazole, nalbuphine Past surgical history: PPMD, Back. Social history: Former smoker. Denies EtOH use and recreational drug use. Primary Care Physician: Dr. Fuchs Piggery Worker: Dr. Lcokhart Silver Cleaner: Dr. De La Cruz REVIEW OF SYSTEMS: GENERAL/CONSTITUTIONAL: Subjective chills. No fever. No weakness. No weight change. HEAD, EYES, EARS, NOSE AND THROAT: No change in vision. No ear pain or discharge. No sore throat. CARDIOVASCULAR: +SOB. No chest pain. RESPIRATORY: +productive cough of green sputum. No hemoptysis. GASTROINTESTINAL: No abd pain, nausea, vomiting, diarrhea. GENITOURINARY: No dysuria, frequency, or change in urination. MUSCULOSKELETAL: No joint or muscle swelling or pain. No neck or back pain. SKIN: No rash or easy bruising. NEUROLOGIC: No headache, vertigo, loss of consciousness, or loss of sensation. PHYSICAL EXAM: GENERAL: The patient is awake, alert, and fully oriented, in no acute distress. She is speaking 3-4 words per breath and is on O2 via NC. HEAD: Normal with no signs of trauma. ENT: Pupils equal, round and reactive to light, extraocular movements intact, sclera anicteric, conjunctiva clear. Neck supple. LUNGS: Expiratory wheezing across all wilhelm. Rhochi appreciated in b/l lung bases, worse on right side. Retractions. CV: RRR, S1/S2, no MRG. Cap refill < 2 sec. ABDOMEN: Soft, non-distended, non-tender even to deep palpation, no hepatomegaly or splenomegaly, no masses. EXTREMITIES: Normal range of motion, no edema. NEUROLOGICAL: Normal speech, normal gait. CN II-XII grossly intact. SKIN: Warm, dry, normal turgor, no rashes or lesions noted. Past History - Past Medical History Allergies/Adverse Reactions: Allergies Allergy/AdvReac Type Severity Reaction Status Date / Time medroxyprogesterone acetate Allergy Severe stepehns Verified 11/28/17 14:30 [From Depo-Provera] josé syndrome amoxicillin trihydrate Allergy Verified 11/28/17 14:30 [From Augmentin] aspirin Allergy Verified 11/28/17 14:30 azithromycin [From Zithromax] Allergy Dewey Verified 11/28/17 14:30 José syndrome bacitracin Allergy Verified 11/28/17 14:30 ciprofloxacin HCl Allergy Verified 11/28/17 14:30 [From Cipro] clavulanic acid Allergy Verified 11/28/17 14:30 [From Augmentin] codeine [Codeine] Allergy Verified 11/28/17 14:30 Iodinated Contrast- Oral and Allergy Verified 11/28/17 14:30 IV Dye [IV Dye, Iodine Containing Contrast ] ketorolac tromethamine Allergy Verified 11/28/17 14:30 [From Toradol] levofloxacin [From Levaquin] Allergy Verified 11/28/17 14:30 metronidazole [From Flagyl] Allergy Verified 11/28/17 14:30 nalbuphine HCl [From Nubain] Allergy CYANOSIS Verified 11/28/17 14:30 potassium clavulanate Allergy Verified 11/28/17 14:30 [From Augmentin] Shellfish Allergy Verified 11/28/17 14:30 shellfish derived Allergy Verified 11/28/17 14:30 sulfamethoxazole Allergy Verified 11/28/17 14:30 [From Bactrim] trimethoprim [From Bactrim] Allergy Verified 11/28/17 14:30 Home Medications: Ambulatory Orders Apixaban [Eliquis] 2.5 mg PO BID 11/28/17 Arformoterol Tartrate [Brovana] 15 mcg IH BID 11/28/17 Docusate Sodium [Colace] 200 mg PO TID 11/28/17 Erythromycin [Bhavik-Tab -] 500 mg PO Q6HPO 11/28/17 Insulin Detemir [Levemir Flextouch] 20 unit SQ HS 11/28/17 Lisinopril 10 mg PO DAILY 11/28/17 Mag Hydrox/Al Hydrox/Simeth [Mylanta Suspension -] 30 ml PO Q6H PRN 11/28/17 Metoclopramide HCl 5 mg PO TID 11/28/17 Metoprolol Tartrate [Lopressor] 25 mg PO BID 11/28/17 Montelukast Sodium [Singulair] 10 mg PO HS 11/28/17 Morphine *Sr* [Ms Contin -] 15 mg PO Q12H 11/28/17 Morphine Sulfate [Morphine Sulfate ER] 10 mg PO Q6H 11/28/17 Multivitamin [Multiple Vitamins] 1 each PO DAILY 11/28/17 Nitroglycerin [Nitrostat] 0.4 mg SL PRN PRN 11/28/17 Pantoprazole Sodium 40 mg PO HS 11/28/17 Polyethylene Glycol 3350 [Miralax (For Daily Use) -] 17 gm PO DAILY 11/28/17 Prednisone [Deltasone] 40 mg PO DAILY 11/28/17 Pregabalin [Lyrica] 25 mg PO BID 11/28/17 Sennosides [Senna] 8.6 mg PO HS 11/28/17 Sucralfate Oral Suspension [Carafate Oral Suspension -] 1 gm PO ASDIR 11/28/17 Vitamin E Acid Succinate [Vitamin E] 500 unit PO DAILY 11/28/17 Anemia: Yes Asthma: Yes Cancer: No Cardiac Disorders: Yes (A-Fib) CVA: No COPD: Yes (scaradosis) CHF: Yes DVT: No Dementia: No Diabetes: Yes GI Disorders: Yes (Acid reflux, Gastroparesis, GERD) Disorders: Yes (Urinary retention) HTN: Yes Hypercholesterolemia: Yes Liver Disease: Yes (Hepatitis C) Seizures: No Thyroid Disease: No - Surgical History Abdominal Surgery: Yes Appendectomy: No Cardiac Surgery: Yes (PPM-D) Cholecystectomy: No Gastric Stapling: No Lung Surgery: No Neurologic Surgery: Yes (Spinal Sx w/LLE nerve damage) Orthopedic Surgery: Yes ([facility]amine[facility] x2 [facility]) - Immunization History Immunization Up to Date: Yes - Suicide/Smoking/Psychosocial Hx Smoking Status: No Smoking History: Unknown if ever smoked Have you smoked in the past 12 months: No Number of Cigarettes Smoked Daily: 0 Cigars Per Day: 0 Hx Alcohol Use: No Drug/Substance Use Hx: No Substance Use Type: None Hx Substance Use Treatment: No Respiratory Specific PMHX - Complaint Specific PMHX Pulmonary Embolus: No *Physical Exam - Vital Signs Last Vital Signs Temp Pulse Resp BP Pulse Ox 99.1 F 99 H 22 99/75 100 11/28/17 12:41 11/28/17 12:41 11/28/17 12:41 11/28/17 12:41 11/28/17 12:41 ED Treatment Course - LABORATORY CBC & Chemistry Diagram: 11/28/17 14:40 11/28/17 14:40 - RADIOLOGY Radiology Studies Ordered: Category Date Time Status CHEST X-RAY PORTABLE* [RAD] Stat Radiology 11/28/17 12:52 Ordered Medical Decision Making - Medical Decision Making A/P: 62 y/o female with a long list of chronic medical problems sent in by [facility] after no improvement for treatment of pneumonia. Plan is as follows: 1. EKG 2. CXR 3. Labs 4. O2 via NC 5. Duoneb CXR IMPRESSION: Congestive and infiltrative processes have improved slightly since 11/11/[address] Guerra, slab conditioner supervisor for Dr. Fuchs. He wants Dr. Talamantes for ID and Dr. De La Cruz for pulmonary to consult. Patient does admit to feeling a little better after duonebs. Have not started abx given her allergies. Will wait for ID recommendations. *DC/Admit/Observation/Transfer Diagnosis at time of Disposition: Pneumonia - Discharge Dispostion Condition at time of disposition: Fair Decision to Admit order: Yes - Referrals Referrals: Whit Fuchs MD [Primary Care Provider] - - Patient Instructions - Post Discharge Activity
[2017-11-28] MEDS: ALBUTEROL SO4 2.5/IPRATROPIUM 0.5 INH SOL 3 ML VIAL.NEB. NEB SCH ×4 (13:04→14:45)
[2017-11-28] MEDS ORDERED: ALBUTEROL SO4 2.5/IPRATROPIUM 0.5 INH SOL 3 ML VIAL.NEB. NEB ONE ×2 (13:09→20:21)
[2017-11-28 14:55] LABS: BASO % 0.6 % (0-2.0); EOS % 0.1 % (0-4.5); HEMOGLOBIN 11.3 GM/dL (10.7-15.3); LYMPH % 17.6 % (8-40); MCH 27.7 pg (25.7-33.7); MCHC 32.4 g/dl (32.0-36.0); MEAN CELL VOLUME 85.3 fl (80-96); MEAN PLT VOLUME 7.7 fl (7.5-11.1); NEUT % 80.7 % (42.8-82.8); PLATELET COUNT 349 K/MM3 (134-434); WHITE BLOOD COUNT 12.9 K/mm3 (4.0-10.0)
[2017-11-28 15:11] LABS: INR 1.33 (0.83-1.09)
[2017-11-28 15:13] LABS: ACTIVATED PTT 30.4 SECONDS (25.2-36.5)
[2017-11-28 15:22] LABS: ALBUMIN 2.9 g/dl (3.4-5.0); ALK PHOS 112 U/L (45-117); ANION GAP 7 (8-16); BILIRUBIN,TOTAL 0.2 mg/dL (0.2-1.0); BLOOD UREA NITROGEN 23 mg/dL (7-18); CALCIUM 7.9 mg/dL (8.5-10.1); CHLORIDE 96 mmol/L (98-107); CO2 39 mmol/L (21-32); CREATININE 0.7 mg/dL (0.55-1.02); GLUCOSE,RANDOM 212 mg/dL (74-106); N-TERMINAL BNP 265.33 pg/ml (5-125); POTASSIUM 3.8 mmol/L (3.5-5.1); SGOT/AST 12 U/L (15-37); SGPT/ALT 18 U/L (12-78); SODIUM 142 mmol/L (136-145); TOT PROT 7.2 g/dl (6.4-8.2)
[2017-11-28 17:30] LABS: PLATELET ESTIMATE ADEQUATE
--- NOTE | 2017-11-28 17:38 | HP ---
CHIEF COMPLAINT: Sent from MD with report of pneumonia PCP: Dr. Fuchs HISTORY OF PRESENT ILLNESS: 62 year-old female with a PMH significant for HTN, HLD, pulmonary sarcoidosis/ ILD, chronic hypoxic respiratory failure, COPD, OSVALDO, diastolic heart failure, cardiac sarcoidosis, h/o multifocal atrial tachycardia and paroxysmal atrial tachycardia s/p ICD/PPM, h/o DVT on Eliquis, IDDM, hepatitis C, GERD, and recurrent diverticulitis. Sent from MD today for a cough x 2 days, productive greenish sputum, and chills. Was started on erythromycin yesterday. Recent Travel: No PAST MEDICAL HISTORY: As above PAST SURGICAL HISTORY: As above Social History: Smoking: never Alcohol: no Drugs: no Family History: Allergies medroxyprogesterone acetate [From Depo-Provera] Allergy (Severe, Verified 14:30) stepehns josé syndrome amoxicillin trihydrate [From Augmentin] Allergy (Verified 11/28/17 14:30) aspirin Allergy (Verified 11/28/17 14:30) azithromycin [From Zithromax] Allergy (Verified 11/28/17 14:30) Dewey José syndrome bacitracin Allergy (Verified 11/28/17 14:30) ciprofloxacin HCl [From Cipro] Allergy (Verified 11/28/17 14:30) clavulanic acid [From Augmentin] Allergy (Verified 11/28/17 14:30) codeine [Codeine] Allergy (Verified 11/28/17 14:30) Iodinated Contrast- Oral and IV Dye [IV Dye, Iodine Containing Contrast ] Allergy (Verified 11/28/17 14:30) ketorolac tromethamine [From Toradol] Allergy (Verified 11/28/17 14:30) levofloxacin [From Levaquin] Allergy (Verified 11/28/17 14:30) metronidazole [From Flagyl] Allergy (Verified 11/28/17 14:30) nalbuphine HCl [From Nubain] Allergy (Verified 11/28/17 14:30) CYANOSIS potassium clavulanate [From Augmentin] Allergy (Verified 11/28/17 14:30) Shellfish Allergy (Verified 11/28/17 14:30) shellfish derived Allergy (Verified 11/28/17 14:30) sulfamethoxazole [From Bactrim] Allergy (Verified 11/28/17 14:30) trimethoprim [From Bactrim] Allergy (Verified 11/28/17 14:30) HOME MEDICATIONS: Home Medications Medication Instructions Recorded Apixaban [Eliquis] 2.5 mg PO BID 11/28/17 Arformoterol Tartrate [Brovana] 15 mcg IH BID 11/28/17 Docusate Sodium [Colace] 200 mg PO TID 11/28/17 Erythromycin [Bhavik-Tab -] 500 mg PO Q6HPO 11/28/17 Insulin Detemir [Levemir Flextouch] 20 unit SQ HS 11/28/17 Lisinopril 10 mg PO DAILY 11/28/17 Mag Hydrox/Al Hydrox/Simeth 30 ml PO Q6H PRN 11/28/17 [Mylanta Suspension -] Metoclopramide HCl 5 mg PO TID 11/28/17 Metoprolol Tartrate [Lopressor] 25 mg PO BID 11/28/17 Montelukast Sodium [Singulair] 10 mg PO HS 11/28/17 Morphine *Sr* [Ms Contin -] 15 mg PO Q12H 11/28/17 Morphine Sulfate [Morphine Sulfate 10 mg PO Q6H 11/28/17 ER] Multivitamin [Multiple Vitamins] 1 each PO DAILY 11/28/17 Nitroglycerin [Nitrostat] 0.4 mg SL PRN PRN 11/28/17 Pantoprazole Sodium 40 mg PO HS 11/28/17 Polyethylene Glycol 3350 [Miralax 17 gm PO DAILY 11/28/17 (For Daily Use) -] Prednisone [Deltasone] 40 mg PO DAILY 11/28/17 Pregabalin [Lyrica] 25 mg PO BID 11/28/17 Sennosides [Senna] 8.6 mg PO HS 11/28/17 Sucralfate Oral Suspension 1 gm PO ASDIR 11/28/17 [Carafate Oral Suspension -] Vitamin E Acid Succinate [Vitamin 500 unit PO DAILY 11/28/17 E] REVIEW OF SYSTEMS CONSTITUTIONAL: +chills Absent: fever, chills, diaphoresis, generalized weakness, malaise, loss of appetite, weight change HEENT: Absent: rhinorrhea, nasal congestion, throat pain, throat swelling, difficulty swallowing, mouth swelling, ear pain, eye pain, visual changes CARDIOVASCULAR: Absent: chest pain, syncope, palpitations, irregular heart rate, lightheadedness , peripheral edema RESPIRATORY: +cough, greenish sputum Absent: cough, shortness of breath, dyspnea with exertion, orthopnea, wheezing, stridor, hemoptysis GASTROINTESTINAL: Absent: abdominal pain, abdominal distension, nausea, vomiting, diarrhea, constipation, melena, hematochezia GENITOURINARY: Absent: dysuria, frequency, urgency, hesitancy, hematuria, flank pain, genital pain MUSCULOSKELETAL: Absent: myalgia, arthralgia, joint swelling, back pain, neck pain SKIN: Absent: rash, itching, pallor HEMATOLOGIC/IMMUNOLOGIC: Absent: easy bleeding, easy bruising, lymphadenopathy, frequent infections ENDOCRINE: Absent: unexplained weight gain, unexplained weight loss, heat intolerance, cold intolerance NEUROLOGIC: Absent: headache, focal weakness or paresthesias, dizziness, unsteady gait, seizure, mental status changes, bladder or bowel incontinence PSYCHIATRIC: Absent: anxiety, depression, suicidal or homicidal ideation, hallucinations. PHYSICAL EXAMINATION Vital Signs - 24 hr 11/28/17 11/28/17 11/28/17 12:41 13:00 16:41 Temperature 99.1 F Pulse Rate 99 H Pulse Rate [ 102 H Apical] Respiratory 22 Rate Blood Pressure 99/75 Blood Pressure 95/61 [Left Arm] O2 Sat by Pulse 100 98 100 Oximetry (%) GENERAL: Awake, alert, and fully oriented, in no acute distress. HEAD: Normal with no signs of trauma. EYES: Pupils equal, round and reactive to light, extraocular movements intact, sclera anicteric, conjunctiva clear. No lid lag. EARS, NOSE, THROAT: Ears normal, nares patent, oropharynx clear without exudates. Moist mucous membranes. NECK: Normal range of motion, supple without lymphadenopathy, JVD, or masses. LUNGS: Diffuse rhales and rhonchi HEART: Regular rate and rhythm, normal S1 and S2 without murmur, rub or gallop. ABDOMEN: Soft, nontender, not distended, normoactive bowel sounds, no guarding, no rebound MUSCULOSKELETAL: Normal range of motion at all joints. No bony deformities or tenderness. No CVA tenderness. UPPER EXTREMITIES: 2+ pulses, warm, well-perfused. No cyanosis. No clubbing. No peripheral edema. LOWER EXTREMITIES: 2+ pulses, warm, well-perfused. No calf tenderness. No peripheral edema. NEUROLOGICAL: Cranial nerves II-XII intact. Normal speech. Laboratory Results - last 24 hr 11/28/17 11/28/17 11/28/17 14:40 14:40 14:40 WBC 12.9 H RBC 4.10 Hgb 11.3 Hct 35.0 MCV 85.3 MCH 27.7 MCHC 32.4 RDW 18.0 H Plt Count 349 D MPV 7.7 Absolute Neuts (auto) 10.4 H Neutrophils % 80.7 Neutrophils % (Manual) 72.0 Band Neutrophils % 4.0 Lymphocytes % 17.6 Lymphocytes % (Manual) 19.0 Monocytes % 1.0 L Monocytes % (Manual) 4 Eosinophils % 0.1 Basophils % 0.6 Nucleated RBC % 0 Hypochromia 1+ Platelet Estimate Adequate PT with INR 15.00 H INR 1.33 H PTT (Actin FS) 30.4 Sodium 142 Potassium 3.8 Chloride 96 L Carbon Dioxide 39 H Anion Gap 7 L BUN 23 H Creatinine 0.7 Creat Clearance w eGFR > 60 Random Glucose 212 H Lactic Acid Calcium 7.9 L Total Bilirubin 0.2 AST 12 L ALT 18 Alkaline Phosphatase 112 D Troponin I B-Natriuretic Peptide Total Protein 7.2 Albumin 2.9 L Blood Type Antibody Screen 11/28/17 11/28/17 11/28/17 14:40 14:40 14:40 WBC RBC Hgb Hct MCV MCH MCHC RDW Plt Count MPV Absolute Neuts (auto) Neutrophils % Neutrophils % (Manual) Band Neutrophils % Lymphocytes % Lymphocytes % (Manual) Monocytes % Monocytes % (Manual) Eosinophils % Basophils % Nucleated RBC % Hypochromia Platelet Estimate PT with INR INR PTT (Actin FS) Sodium Potassium Chloride Carbon Dioxide Anion Gap BUN Creatinine Creat Clearance w eGFR Random Glucose Lactic Acid 1.3 Calcium Total Bilirubin AST ALT Alkaline Phosphatase Troponin I < 0.02 B-Natriuretic Peptide 265.33 H Cancelled Total Protein Albumin Blood Type Antibody Screen 11/28/17 14:40 WBC RBC Hgb Hct MCV MCH MCHC RDW Plt Count MPV Absolute Neuts (auto) Neutrophils % Neutrophils % (Manual) Band Neutrophils % Lymphocytes % Lymphocytes % (Manual) Monocytes % Monocytes % (Manual) Eosinophils % Basophils % Nucleated RBC % Hypochromia Platelet Estimate PT with INR INR PTT (Actin FS) Sodium Potassium Chloride Carbon Dioxide Anion Gap BUN Creatinine Creat Clearance w eGFR Random Glucose Lactic Acid Calcium Total Bilirubin AST ALT Alkaline Phosphatase Troponin I B-Natriuretic Peptide Total Protein Albumin Blood Type O POSITIVE Antibody Screen Negative ASSESSMENT/PLAN 62 year-old female with a PMH significant for HTN, HLD, pulmonary sarcoidosis/ ILD, chronic hypoxic respiratory failure, COPD, OSVALDO, diastolic heart failure, cardiac sarcoidosis, h/o multifocal atrial tachycardia and paroxysmal atrial tachycardia s/p ICD/PPM, h/o DVT on Eliquis, IDDM, hepatitis C, GERD, and recurrent diverticulitis. Sent from MD today for a cough x 2 days, productive greenish sputum, and chills. Possible pneumonia --afebrile --mild leukocytosis which is chronic, on steroids --CXR improved from two weeks ago --numerous drug allergies --will start broad empiric coverage clinda and aztreonam due to history --ID to follow Advanced pulmonary sarcoid Interstitial lung disease COPD --has been on prednisone PO 40mg daily (not tapered?), defer to pulmonary re : dosing --continue Brovana --duonebs --titrate O2 >90% Diastolic heart failure --10/04/17: LV normal; RV not well seen, PPM in RV; mild TR; --continue Lasix PO 60mg daily Cardiac sarcoid h/o multifocal atrial tachycardia and paroxysmal atrial tachycardia s/p ICD/PPM --10/05/17 Echo: normal LV, EF 60-65%; mild TR; pHTN --rate controlled, continue metoprolol BID Hypertension --continue lisinopril, metoprolol h/o DVT --continue Eliquis @ 2.5mg BID (reduced dose secondary to epistaxis/bleeding issues) IDDM --Levemir 38U qhs --Novolog sliding scale coverage Back pain --10/19/17 CTAP: anterior compression L1 superior endplate of indeterminate age likely "recent" --on standing morphine home regimen, continue oxycontin DVT prophylaxis: on Eliquis Visit type - Emergency Visit Emergency Visit: Yes ED Registration Date: 11/28/17 Care time: The patient presented to the Emergency Department on the above date and was hospitalized for further evaluation of their emergent condition. - New Patient This patient is new to me today: Yes Date on this admission: 11/28/17 - Critical Care Critical Care patient: No Hospitalist Screening - Colonoscopy Questionnaire Colonoscopy Questionnaire: Colonoscopy Questionnaire - Patient: 50 - 75 years old and never had a screening colonoscopy: Unknown History of colon or rectal polyps, or CA: No History of IBD, Crohn's disease or UC: No History of abdominal radiation therapy as a child: No - Relative: 1 with colon or rectal CA, or polyps at age 60 or younger: Unknown Colon or rectal CA diagnosed at age 45 or younger: Unknown Multiple relatives with colon or rectal CA: Unknown - Outcome: Screening Result: Negative Screen
[2017-11-28] MEDS ORDERED: NITROGLYCERIN SUBLINGUAL 1/150 0.4 MG TAB SL PRN (18:31)
[2017-11-28] MEDS ORDERED: morphine SO4 SUSTAINED ACTING 15 MG TABLET.SA ONE (18:53)
[2017-11-28] MEDS: morphine SO4 SUSTAINED ACTING 15 MG TABLET.SA PO SCH (18:54)
--- NOTE | 2017-11-28 19:12 | EKG ---
Test Reason : Blood Pressure : / mmHG Vent. Rate : 093 BPM Atrial Rate : 082 BPM P-R Int : 132 ms QRS Dur : 068 ms QT Int : 340 ms P-R-T Axes : 027 -12 026 degrees QTc Int : 422 ms SINUS RHYTHM WITH MARKED SINUS ARRHYTHMIA WITH OCCASIONAL PREMATURE VENTRICULAR COMPLEXES OTHERWISE NORMAL ECG Confirmed by MD VALERY, HARSH ([id number]) on 11/28/2017 7:12:35 PM Referred By: Confirmed By:HARSH RASMUSSEN MD
[2017-11-28] MEDS ORDERED: ALBUTEROL SO4 2.5/IPRATROPIUM 0.5 INH SOL 3 ML VIAL.NEB. NEB SCH (20:00)
[2017-11-28] MEDS ORDERED: CLINDAMYCIN 600MG PREMIX IVPB 600 MG/50 ML BAG IVPB ONE (20:21)
[2017-11-28] MEDS: CLINDAMYCIN 600MG PREMIX IVPB 600 MG/50 ML BAG IVPB SCH (20:29)
[2017-11-28] MEDS: AZTREONAM 1 GM in DEXTROSE 5%-WATER - 50 ML IVPB SCH (20:54)
[2017-11-28] MEDS: ARFORMOTEROL TARTRATE 15 MCG/2 ML VIAL NEB SCH (20:54)
[2017-11-28] MEDS ORDERED: PREGABALIN 50 MG CAPSULE ONE (21:59)
[2017-11-28] MEDS ORDERED: INSULIN (LEVEMIR) 100 UNITS/ML UNITS SQ SCH (22:00)
[2017-11-28] MEDS ORDERED: PANTOPRAZOLE 40 MG TABLET (FP) ONE (22:00)
[2017-11-28] MEDS ORDERED: PREGABALIN 25 MG CAPSULE ONE (22:00)
[2017-11-28] MEDS ORDERED: METOCLOPRAMIDE HCL 10 MG TABLET (FP) PO ONE (22:01)
[2017-11-28] MEDS ORDERED: DOCUSATE SODIUM 100 MG CAPSULE (FP) PO ONE (22:01)
[2017-11-28] MEDS ORDERED: MONTELUKAST NA 10 MG TABLET ONE (22:01)
[2017-11-28] MEDS ORDERED: METOPROLOL TARTRATE 25 MG TABLET (FP) ONE (22:01)
[2017-11-28] MEDS ORDERED: INSULIN (LEVEMIR) 100 UNITS/ML UNITS SQ ONE (22:02)
[2017-11-28] MEDS: DOCUSATE SODIUM 100 MG CAPSULE (FP) PO SCH (22:10)
[2017-11-28] MEDS: INSULIN (LEVEMIR) 100 UNITS/ML UNITS SQ SCH (22:10)
[2017-11-28] MEDS: METOPROLOL TARTRATE 50 MG TABLET (FP) PO SCH (22:11)
[2017-11-28] MEDS: METOCLOPRAMIDE HCL 10 MG TABLET (FP) PO SCH (22:11)
[2017-11-28] MEDS: MONTELUKAST NA 10 MG TABLET PO SCH (22:11)
[2017-11-28] MEDS: PANTOPRAZOLE 40 MG TABLET (FP) PO SCH (22:11)
[2017-11-28] MEDS: PREGABALIN 75 MG CAPSULE PO SCH (22:11)
[2017-11-28] MEDS: SENNOSIDES 8.6MG TABLET (FP) PO SCH (22:57)
[2017-11-28] MEDS: APIXABAN 2.5 MG TABLET PO SCH (22:57)
[2017-11-28] MEDS ORDERED: morphine SULFATE 10 MG/5 ML UNIT-DOSE CUP PO ONE (23:55)
[2017-11-29] MEDS ORDERED: CLINDAMYCIN 600MG PREMIX IVPB 600 MG/50 ML BAG IVPB ONE ×2 (02:13→09:34)
[2017-11-29] MEDS: CLINDAMYCIN 600MG PREMIX IVPB 600 MG/50 ML BAG IVPB SCH ×3 (02:21→17:42)
[2017-11-29] MEDS ORDERED: ALBUTEROL SO4 2.5/IPRATROPIUM 0.5 INH SOL 3 ML VIAL.NEB. NEB ONE ×2 (03:09→13:42)
[2017-11-29] MEDS: AZTREONAM 1 GM in DEXTROSE 5%-WATER - 50 ML IVPB SCH ×5 (03:13→19:00)
[2017-11-29] MEDS: ALBUTEROL SO4 2.5/IPRATROPIUM 0.5 INH SOL 3 ML VIAL.NEB. NEB PRN ×2 (04:00→13:49)
[2017-11-29] MEDS ORDERED: DOCUSATE SODIUM 100 MG CAPSULE (FP) PO ONE (06:05)
[2017-11-29] MEDS ORDERED: METOCLOPRAMIDE HCL 10 MG TABLET (FP) PO ONE (06:05)
[2017-11-29] MEDS: DOCUSATE SODIUM 100 MG CAPSULE (FP) PO SCH ×3 (06:10→21:12)
[2017-11-29] MEDS: METOCLOPRAMIDE HCL 10 MG TABLET (FP) PO SCH ×3 (06:10→21:14)
[2017-11-29] MEDS: ARFORMOTEROL TARTRATE 15 MCG/2 ML VIAL NEB SCH ×2 (08:18→19:15)
[2017-11-29] MEDS ORDERED: PREGABALIN 25 MG CAPSULE ONE (09:34)
[2017-11-29] MEDS ORDERED: morphine SO4 SUSTAINED ACTING 15 MG TABLET.SA ONE (09:34)
[2017-11-29] MEDS ORDERED: predniSONE 20 MG TABLET (UD) PO SCH (10:00)
[2017-11-29] MEDS: METOPROLOL TARTRATE 50 MG TABLET (FP) PO SCH ×2 (10:07→21:13)
[2017-11-29] MEDS: morphine SO4 SUSTAINED ACTING 15 MG TABLET.SA PO SCH ×2 (10:07→21:13)
[2017-11-29] MEDS: APIXABAN 2.5 MG TABLET PO SCH ×2 (10:07→21:13)
[2017-11-29] MEDS: PREGABALIN 75 MG CAPSULE PO SCH ×2 (10:07→21:13)
[2017-11-29] MEDS: LISINOPRIL 10 MG TABLET (FP) PO SCH (10:08)
[2017-11-29] MEDS: POLYETHYLENE GLYCOL 3350 119 GM BTL PO SCH (10:38)
--- NOTE | 2017-11-29 10:41 | PN ---
Progress Note (short form) - Note Progress Note: ID Consult dictated Acute exacerbation chronic lung disease ? Pneumonia Multiple antibiotic allergies Await c/s Continue empiric clindamycin/ aztreonam
--- NOTE | 2017-11-29 12:45 | CONS ---
DATE OF CONSULTATION: DATE OF DICTATION: 11/29/2017 The patient is a 62-year-old female with a long history of chronic lung disease, now admitted with acute exacerbation and possible pneumonia. She has had multiple recent hospitalizations for acute exacerbation of her chronic lung disease and pneumonia. She was most recently admitted from November 10 through November 16. She was discharged to a shelter, where she has been receiving rehabilitation for the past 2 weeks. She became increasingly short of breath 2 days prior to admission, with cough productive of greenish sputum. She reports that a chest x-ray done at that facility showed pneumonia. She was treated empirically with erythromycin, without significant improvement. She was transferred to [facility], where chest x-ray shows increased markings bilaterally. Cultures were obtained and she was empirically treated with clindamycin and Azactam. Patient reports cough productive of greenish sputum. She denies any chest pain. She is chronically short of breath. She denies any high-grade fever or shaking chills. Past medical history positive for chronic lung disease, pulmonary fibrosis, COPD, pulmonary and cardiac sarcoidosis, asthma, congestive heart failure, hypertension, hyperlipidemia, DVT, pulmonary hypertension, obstructive sleep apnea, gastroesophageal reflux, hepatitis C, diabetes mellitus, atrial fibrillation, diverticulitis. Allergies to multiple medications, including AMOXICILLIN, ZITHROMAX, CIPROFLOXACIN, LEVAQUIN, FLAGYL, ASPIRIN. SOCIAL HISTORY: Recent admission to rehabilitation center for pulmonary rehab. Former smoker. SYSTEMS REVIEW: Neurologic: No loss of consciousness, seizure activity, or focal weakness. Cardiac: Positive atrial fibrillation. Respiratory: As per HPI. Gastrointestinal: Positive for gastroesophageal reflux. No vomiting or diarrhea. Genitourinary: Negative for urinary tract infection. LABORATORY DATA: White count 12.9, hematocrit 35.0, platelet count 349, BUN 23, creatinine 0.7. Chest x-ray shows large heart, left-sided pacemaker which obscures part of the left hemithorax, congestive and infiltrative changes which appear chronic in nature. PHYSICAL EXAMINATION: General: The patient is supine in bed. She is in no acute respiratory distress. She is slightly short of breath at rest on nasal cannula. Vital Signs: Temperature 98.3, T-max 99.1. Blood pressure 95/61. Pulse 86, regular. Respirations 18 per minute. Eyes: Sclerae anicteric. Heart Sounds: Irregular, S1, S2. Lungs: Scattered rhonchi bilaterally. Crepitations at the bases. Abdomen: Obese, soft, nontender. Extremities: Negative for edema. IMPRESSION: 1. Acute exacerbation of chronic lung disease. 2. Possible superimposed pneumonia. 3. History of multiple antibiotic allergies. Await culture results. Empiric antibiotic coverage, in this patient with multiple antibiotic allergies, with clindamycin and Azactam. Pulmonary evaluation. Bronchodilators. Will follow. Thank you for the kind referral. JOHNNY VELASCO M.D. [id number]
--- NOTE | 2017-11-29 15:02 | CON.PULM ---
Consult Consult Specialty:: PULMONARY Referred by:: Dr. Fuchs Reason for Consultation:: shortness of breath - History of Present Illness Chief Complaint: shortness of breath History of Present Illness: 62yo female with h/o HTN, hyperlipidemia, pulmonary/cardiac sarcoidosis, COPD, chronic hypoxic respiratory failure, LV diastolic dysfunction, DM, h/o DVT, s/p ICD/PPM, Hep C, recent admission for diverticulitis who was sent from the retirement for worsening shortness of breath x 2 days. Denies chest pain or palpitations. No fevers but felt chills. +cough productive of green sputum. Denies nausea, vomiting or diarrhea. 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: Dementia, Seizure Cardio/Vascular: Yes: AFIB, CHF, Deep Vein Thrombosis, HTN, Hyperlipdemia, Pulmonary Hypertension, Other (pulmonar Sarcoid / ILD / pulmoary fibrosis) Pulmonary: Yes: Asthma, COPD, Previously Intubated, Sleep Apnea, Pulmonary Fibrosis, O2 Dependent, Other Gastrointestinal: Yes: Diverticulitis, Diverticulosis, Gastritis, GERD, Other Hepatobiliary: Yes: Hepatitis C Infectious Disease: Yes: Other Psych: Yes: Anxiety, Depression Musculoskeletal: Yes: Chronic low back pain Rheumatology: Yes: Sarcoidosis (cardiac and pulmonary) Endocrine: Yes: Diabetes Mellitus Additional Medical History: in wheelchair after accident many years ago. Spinal cord stimulator. Multiple drug allergies. History of Ferrer José syndrome - Past Surgical History Past Surgical History: Yes: Laminectomy, AICD, Permanent Pacemaker - Alcohol/Substance Use Hx Alcohol Use: No History of Substance Use: reports: None - Smoking History Smoking history: Unknown if ever smoked Have you smoked in the past 12 months: No Aproximately how many cigarettes per day: 0 - Social History ADL: Support Services History of Recent Travel: No Home Medications - Allergies Allergies/Adverse Reactions: Allergies Allergy/AdvReac Type Severity Reaction Status Date / Time medroxyprogesterone acetate Allergy Severe stepehns Verified 11/28/17 14:30 [From Depo-Provera] josé syndrome amoxicillin trihydrate Allergy Verified 11/28/17 14:30 [From Augmentin] aspirin Allergy Verified 11/28/17 14:30 azithromycin [From Zithromax] Allergy Dewey Verified 11/28/17 14:30 José syndrome bacitracin Allergy Verified 11/28/17 14:30 ciprofloxacin HCl Allergy Verified 11/28/17 14:30 [From Cipro] clavulanic acid Allergy Verified 11/28/17 14:30 [From Augmentin] codeine [Codeine] Allergy Verified 11/28/17 14:30 Iodinated Contrast- Oral and Allergy Verified 11/28/17 14:30 IV Dye [IV Dye, Iodine Containing Contrast ] ketorolac tromethamine Allergy Verified 11/28/17 14:30 [From Toradol] levofloxacin [From Levaquin] Allergy Verified 11/28/17 14:30 metronidazole [From Flagyl] Allergy Verified 11/28/17 14:30 nalbuphine HCl [From Nubain] Allergy CYANOSIS Verified 11/28/17 14:30 potassium clavulanate Allergy Verified 11/28/17 14:30 [From Augmentin] Shellfish Allergy Verified 11/28/17 14:30 shellfish derived Allergy Verified 11/28/17 14:30 sulfamethoxazole Allergy Verified 11/28/17 14:30 [From Bactrim] trimethoprim [From Bactrim] Allergy Verified 11/28/17 14:30 - Home Medications Home Medications: Ambulatory Orders Apixaban [Eliquis] 2.5 mg PO BID 11/28/17 Arformoterol Tartrate [Brovana] 15 mcg IH BID 11/28/17 Docusate Sodium [Colace] 200 mg PO TID 11/28/17 Erythromycin [Bhavik-Tab -] 500 mg PO Q6HPO 11/28/17 Insulin Detemir [Levemir Flextouch] 20 unit SQ HS 11/28/17 Lisinopril 10 mg PO DAILY 11/28/17 Mag Hydrox/Al Hydrox/Simeth [Mylanta Suspension -] 30 ml PO Q6H PRN 11/28/17 Metoclopramide HCl 5 mg PO TID 11/28/17 Metoprolol Tartrate [Lopressor] 25 mg PO BID 11/28/17 Montelukast Sodium [Singulair] 10 mg PO HS 11/28/17 Morphine *Sr* [Ms Contin -] 15 mg PO Q12H 11/28/17 Morphine Sulfate [Morphine Sulfate ER] 10 mg PO Q6H 11/28/17 Multivitamin [Multiple Vitamins] 1 each PO DAILY 11/28/17 Nitroglycerin [Nitrostat] 0.4 mg SL PRN PRN 11/28/17 Pantoprazole Sodium 40 mg PO HS 11/28/17 Polyethylene Glycol 3350 [Miralax (For Daily Use) -] 17 gm PO DAILY 11/28/17 Prednisone [Deltasone] 40 mg PO DAILY 11/28/17 Pregabalin [Lyrica] 25 mg PO BID 11/28/17 Sennosides [Senna] 8.6 mg PO HS 11/28/17 Sucralfate Oral Suspension [Carafate Oral Suspension -] 1 gm PO ASDIR 11/28/17 Vitamin E Acid Succinate [Vitamin E] 500 unit PO DAILY 11/28/17 Family Disease History - Family Disease History Family Disease History: Other: Father (: cancer: no colon), Mother (3 CVAs, the first in her 60s) Review of Systems - Review of Systems Constitutional: reports: Chills, Malaise, Weakness Eyes: denies: Recent Change in Vision HENT: denies: Nasal Congestion, Throat Pain Neck: denies: Stiffness, Tenderness Cardiovascular: reports: Shortness of Breath. denies: Chest Pain, Edema, Palpitations Respiratory: reports: Cough, Exercise Intolerance, SOB, Wheezing. denies: Hemoptysis Gastrointestinal: denies: Abdominal Pain, Nausea, Vomiting Genitourinary: denies: Dysuria, Hematuria Neurological: denies: Dizziness, Headache Physical Exam Vital Sings: Vital Signs Temperature 98.3 F 11/29/17 08:00 Pulse Rate 90 11/29/17 11:42 Respiratory Rate 18 11/29/17 11:42 Blood Pressure 116/82 11/29/17 11:42 O2 Sat by Pulse Oximetry (%) 98 11/29/17 11:42 Constitutional: Yes: Mild Distress (tachypneic with speaking) Eyes: Yes: Conjunctiva Clear, EOM Intact HENT: Yes: Atraumatic, Normocephalic Neck: Yes: Supple, Trachea Midline Cardiovascular: Yes: Regular Rate and Rhythm Respiratory: Yes: Rhonchi, Wheezes ...Clubbing: No Gastrointestinal: Yes: Normal Bowel Sounds, Soft. No: Tenderness Edema: No Neurological: Yes: Alert, Oriented Labs: CBC, BMP 11/28/17 14:40 11/28/17 14:40 Imaging - Results Chest X-ray: Report Reviewed, Image Reviewed (bilateral interstitial changes) Problem List - Problems (1) Acute on chronic respiratory failure with hypoxia and hypercapnia Code(s): J96.21 - ACUTE AND CHRONIC RESPIRATORY FAILURE WITH HYPOXIA; J96.22 - ACUTE AND CHRONIC RESPIRATORY FAILURE WITH HYPERCAPNIA (2) COPD exacerbation Code(s): J44.1 - CHRONIC OBSTRUCTIVE PULMONARY DISEASE W (ACUTE) EXACERBATION (3) Interstitial lung disease Code(s): J84.9 - INTERSTITIAL PULMONARY DISEASE, UNSPECIFIED (4) Pulmonary sarcoidosis Code(s): D86.0 - SARCOIDOSIS OF LUNG (5) Chronic diastolic CHF (congestive heart failure) Code(s): I50.32 - CHRONIC DIASTOLIC (CONGESTIVE) HEART FAILURE Assessment/Plan Acute on Chronic Hypoxic and Hypercapneic Respiratory Failure Acute COPD Exacerbation Advanced Pulmonary/Cardiac Sarcoidosis LV Diastolic Dysfunction h/o DVT s/p ICD DM - IV medrol - inhaled bronchodilators standing and PRN - O2 to keep SpO2 >90% - empiric antibiotics per ID - f/u cultures - BiPAP at night and PRN during day - glucose control while on systemic steroids - continue anticoagulation Thank you for this consult Lyle De La Cruz MD
[2017-11-29] MEDS: methylPREDNISolone NA SUCC 40 MG/1 ML VIAL IVPUSH SCH ×2 (17:42→21:12)
[2017-11-29] MEDS ORDERED: AZTREONAM 1 GM VIAL (RESTRICTED TO ID) IVPB SCH (18:00)
--- NOTE | 2017-11-29 20:54 | PN ---
Progress Note (short form) - Note Progress Note: Chart reviewed Patient well known to service 62 y/o female patient with long standing pulmonary Sarcoidosis, ILD/fibrosis, pulmonary HTN, COPD, and cardiac Sarcoid s/p ICD for VT and syncope several years ago -- steroid dependant ( 30mg/day); on NOAC therapy for LLE DVT diagnosed in 12/2016, Hep C, HTN, DM recent HgA1c 9.9, OSVALDO on bipap nightly and PRN, HLD, Decubiti mostly healed , Hx of MAT and PAT being controlled on cardizem ( avoid long acting 2/2 to hyportension ), chronic diastolic HF, recent admission for acute diverticulitis -- she was treated and d/c to STR @ [facility] She reports NH was unable to accommodate her bipap - which she states made breathing more difficult. She denies chills / fever / moist cough or expectoration -- patient sitting up in bed - sleeping comfortably with O2 in place Vital Signs Period Temp Pulse Resp BP Sys/Londono Pulse Ox Last 24 Hr 97 F-98.3 F 72-101 18-20 103-120/70-97 95-99 NAD neck supple heart S1/S2 Lungs clear bilat Abd soft non tender ext + edema LE CBC, BMP 11/28/17 14:40 11/28/17 14:40 Microbiology 11/28/17 14:40 Blood - Peripheral Venous Blood Culture - Preliminary NO GROWTH OBTAINED AFTER 24 HOURS, INCUBATION TO CONTINUE FOR 4 DAYS. 11/28/17 14:40 Blood - Peripheral Venous Blood Culture - Preliminary NO GROWTH OBTAINED AFTER 24 HOURS, INCUBATION TO CONTINUE FOR 4 DAYS. Active Medications Al Hydroxide/Mg Hydroxide (Mylanta Suspension -) 30 ml PO Q6H PRN PRN Reason: INDIGESTION Albuterol/Ipratropium (Duoneb -) 1 amp NEB Q6H PRN PRN Reason: SHORT OF BREATH/WHEEZING Last Admin: 11/29/17 13:49 Dose: 1 amp Apixaban (Eliquis -) 2.5 mg PO BID [facility] Last Admin: 11/29/17 10:07 Dose: 2.5 mg Arformoterol Tartrate (Brovana (Restricted To Pulmonology/Resp) -) 1 amp NEB RBID [facility] Last Admin: 11/29/17 19:15 Dose: 1 amp Docusate Sodium (Colace -) 200 mg PO TID [facility] Last Admin: 11/29/17 14:45 Dose: 200 mg Clindamycin Phosphate (Cleocin 600 Mg Premix Ivpb -) 600 mg in 50 mls @ 100 mls /hr IVPB Q8H-IV [facility]; Protocol Last Admin: 11/29/17 17:42 Dose: 100 mls/hr Aztreonam 1 gm/ Dextrose 50 mls @ 100 mls/hr IVPB Q8H-IV [facility] Insulin Detemir (Levemir Vial) 38 units SQ [facility] Last Admin: 11/28/17 22:10 Dose: 38 unit Lisinopril (Prinivil) 10 mg PO DAILY [facility] Last Admin: 11/29/17 10:08 Dose: 10 mg Methylprednisolone Sodium Succinate (Solu-Medrol -) 40 mg IVPUSH Q6H-IV [facility] Last Admin: 11/29/17 17:42 Dose: 40 mg Metoclopramide HCl (Reglan -) 5 mg PO TID [facility] Last Admin: 11/29/17 14:45 Dose: 5 mg Metoprolol Tartrate (Lopressor -) 25 mg PO BID [facility] Last Admin: 11/29/17 10:07 Dose: 25 mg Montelukast Sodium (Singulair -) 10 mg PO [facility] Last Admin: 11/28/17 22:11 Dose: 10 mg Morphine Sulfate (Ms Contin -) 15 mg PO BID [facility] Last Admin: 11/29/17 10:07 Dose: 15 mg Nitroglycerin (Nitrostat -) 0.4 mg SL PRN PRN PRN Reason: Chest Pain Pantoprazole Sodium (Protonix -) 40 mg PO [facility] Last Admin: 11/28/17 22:11 Dose: 40 mg Polyethylene Glycol (Miralax (For Daily Use) -) 17 gm PO DAILY [facility] Last Admin: 11/29/17 10:38 Dose: 17 gm Pregabalin (Lyrica -) 75 mg PO BID [facility] Last Admin: 11/29/17 10:07 Dose: 75 mg Senna (Senna -) 1 tab PO [facility] Last Admin: 11/28/17 22:57 Dose: Not Given 62 y/o female patient with long standing pulmonary Sarcoidosis, ILD/fibrosis, pulmonary HTN, COPD, and cardiac Sarcoid s/p ICD for VT and syncope several years ago -- steroid dependant ( 30mg/day); on NOAC therapy for LLE DVT diagnosed in 12/2016, Hep C, HTN, DM recent HgA1c 9.9, OSVALDO on bipap nightly and PRN, HLD, Decubiti mostly healed , Hx of MAT and PAT being controlled on cardizem ( avoid long acting 2/2 to hyportension ), chronic diastolic HF, admitted for increased SOB and possible PNA # Acute on Chronic Hypoxic and Hypercapneic Respiratory Failure continue nebulier / O2 /Bipap/ steroids unclear / unlikely new infiltrate will defer to ID - but will hold abx since IV access now lost c/s pending - negative up to date patient with extensive med allergies # Acute COPD Exacerbation steroids IV & inhaled / O2 / Bipap / Nebulizer keep O2 sats >90% # DM baseline poorly controlled follow with sliding scale / tighter control in setting of increased steroid # LV Diastolic Dysfunction continue lasix # Cardiac arrhythmia continue to monitor MAT / PAT controlled on Cardizem HX of VT and syncopal episodes resulting in need for ICD # DVT (2017) continue Eliquis # dyspnea -- chronic diastolic HF / COPD / pulmonary HTN / Pulmonary Sarcoid -- ILD / fibrosis /OSVALDO steroid dependent / O2 dependent / bipap at night and PRN Problem List - Problems (1) Pneumonia Code(s): J18.9 - PNEUMONIA, UNSPECIFIED ORGANISM (2) Acute on chronic respiratory failure with hypoxia and hypercapnia Code(s): J96.21 - ACUTE AND CHRONIC RESPIRATORY FAILURE WITH HYPOXIA; J96.22 - ACUTE AND CHRONIC RESPIRATORY FAILURE WITH HYPERCAPNIA (3) Allergy to multiple antibiotics Code(s): Z88.1 - ALLERGY STATUS TO OTHER ANTIBIOTIC AGENTS STATUS (4) Altered mental state Code(s): R41.82 - ALTERED MENTAL STATUS, UNSPECIFIED Qualifiers: Altered mental status type: unspecified Qualified Code(s): R41.82 - Altered mental status, unspecified (5) CHF (congestive heart failure) Code(s): I50.9 - HEART FAILURE, UNSPECIFIED Qualifiers: Heart failure type: unspecified Heart failure chronicity: chronic Qualified Code(s): I50.9 - Heart failure, unspecified (6) COPD (chronic obstructive pulmonary disease) Code(s): J44.9 - CHRONIC OBSTRUCTIVE PULMONARY DISEASE, UNSPECIFIED (7) COPD exacerbation Code(s): J44.1 - CHRONIC OBSTRUCTIVE PULMONARY DISEASE W (ACUTE) EXACERBATION (8) Cardiac sarcoidosis Code(s): 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 (9) Chronic diastolic CHF (congestive heart failure) Code(s): I50.32 - CHRONIC DIASTOLIC (CONGESTIVE) HEART FAILURE (10) Chronic low back pain Code(s): M54.5 - LOW BACK PAIN; G89.29 - OTHER CHRONIC PAIN (11) Chronic respiratory failure with hypoxia and hypercapnia Code(s): J96.11 - CHRONIC RESPIRATORY FAILURE WITH HYPOXIA; J96.12 - CHRONIC RESPIRATORY FAILURE WITH HYPERCAPNIA (12) Controlled diabetes mellitus with nephropathy Code(s): E11.21 - TYPE 2 DIABETES MELLITUS WITH DIABETIC NEPHROPATHY (13) DVT (deep venous thrombosis) Code(s): I82.409 - ACUTE EMBOLISM AND THOMBOS UNSP DEEP VN UNSP LOWER EXTREMITY Qualifiers: DVT location: lower extremity Laterality: left (14) Diabetes mellitus Code(s): E11.9 - TYPE 2 DIABETES MELLITUS WITHOUT COMPLICATIONS Qualifiers: Diabetes mellitus type: type 2 Diabetes mellitus complication status: without complication (15) Interstitial lung disease Code(s): J84.9 - INTERSTITIAL PULMONARY DISEASE, UNSPECIFIED (16) Interstitial pulmonary fibrosis Code(s): J84.10 - PULMONARY FIBROSIS, UNSPECIFIED (17) Leukocytosis Code(s): D72.829 - ELEVATED WHITE BLOOD CELL COUNT, UNSPECIFIED (18) Multifocal atrial tachycardia Code(s): I47.1 - SUPRAVENTRICULAR TACHYCARDIA (19) Obstructive sleep apnea Code(s): G47.33 - OBSTRUCTIVE SLEEP APNEA (ADULT) (PEDIATRIC) (20) Oxygen dependent Code(s): Z99.81 - DEPENDENCE ON SUPPLEMENTAL OXYGEN (21) PHT (pulmonary hypertension) Code(s): I27.20 - PULMONARY HYPERTENSION, UNSPECIFIED (22) Pulmonary sarcoidosis Code(s): D86.0 - SARCOIDOSIS OF LUNG (23) SOB (shortness of breath) Code(s): R06.02 - SHORTNESS OF BREATH (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
[2017-11-29] MEDS: SENNOSIDES 8.6MG TABLET (FP) PO SCH (21:13)
[2017-11-29] MEDS: PANTOPRAZOLE 40 MG TABLET (FP) PO SCH (21:13)
[2017-11-29] MEDS: MONTELUKAST NA 10 MG TABLET PO SCH (21:13)
[2017-11-29] MEDS: predniSONE 20 MG TABLET (UD) PO SCH (23:00)
[2017-11-29] MEDS: INSULIN (LEVEMIR) 100 UNITS/ML UNITS SQ SCH (23:00)
[2017-11-30] MEDS: ALBUTEROL SO4 2.5/IPRATROPIUM 0.5 INH SOL 3 ML VIAL.NEB. NEB PRN ×3 (02:15→16:32)
[2017-11-30] MEDS: methylPREDNISolone NA SUCC 40 MG/1 ML VIAL IVPUSH SCH ×4 (03:00→21:33)
[2017-11-30] MEDS: CLINDAMYCIN 600MG PREMIX IVPB 600 MG/50 ML BAG IVPB SCH ×2 (03:00→14:12)
[2017-11-30] MEDS: AZTREONAM 1 GM in DEXTROSE 5%-WATER - 50 ML IVPB SCH ×2 (03:00→14:12)
[2017-11-30] MEDS: DOCUSATE SODIUM 100 MG CAPSULE (FP) PO SCH ×3 (06:01→21:25)
[2017-11-30] MEDS: METOCLOPRAMIDE HCL 10 MG TABLET (FP) PO SCH ×3 (06:04→21:25)
[2017-11-30 07:17] LABS: BASO % 0.2 % (0-2.0); EOS % 0.1 % (0-4.5); HEMATOCRIT 32.1 % (32.4-45.2); HEMOGLOBIN 10.2 GM/dL (10.7-15.3); LYMPH % 22.7 % (8-40); MCH 26.8 pg (25.7-33.7); MCHC 31.9 g/dl (32.0-36.0); MEAN CELL VOLUME 83.9 fl (80-96); MEAN PLT VOLUME 7.7 fl (7.5-11.1); MONO % 2.7 % (3.8-10.2); NEUT % 74.3 % (42.8-82.8); PLATELET COUNT 331 K/MM3 (134-434); RBC 3.82 M/mm3 (3.60-5.2); RDW 17.9 % (11.6-15.6); WHITE BLOOD COUNT 11.5 K/mm3 (4.0-10.0)
[2017-11-30 07:48] LABS: ANION GAP 8 (8-16); BLOOD UREA NITROGEN 21 mg/dL (7-18); CALCIUM 7.3 mg/dL (8.5-10.1); CHLORIDE 97 mmol/L (98-107); CO2 34 mmol/L (21-32); GLUCOSE,RANDOM 180 mg/dL (74-106); MAGNESIUM 1.3 mg/dL (1.8-2.4); PHOSPHOROUS 3.7 mg/dL (2.5-4.9); POTASSIUM 3.8 mmol/L (3.5-5.1); SODIUM 139 mmol/L (136-145)
[2017-11-30 07:49] LABS: CREATININE 0.5 mg/dL (0.55-1.02)
[2017-11-30] MEDS: ARFORMOTEROL TARTRATE 15 MCG/2 ML VIAL NEB SCH ×2 (08:02→19:33)
[2017-11-30] MEDS ORDERED: PT OWN MED DRAWER 7, Y5N ONE (09:50)
[2017-11-30] MEDS: PREGABALIN 75 MG CAPSULE PO SCH ×2 (10:00→21:32)
[2017-11-30] MEDS: LISINOPRIL 10 MG TABLET (FP) PO SCH (10:00)
[2017-11-30] MEDS: morphine SO4 SUSTAINED ACTING 15 MG TABLET.SA PO SCH ×2 (10:00→21:29)
[2017-11-30] MEDS: predniSONE 20 MG TABLET (UD) PO SCH ×2 (10:00→21:24)
[2017-11-30] MEDS: APIXABAN 2.5 MG TABLET PO SCH ×2 (10:01→21:25)
[2017-11-30] MEDS: POLYETHYLENE GLYCOL 3350 119 GM BTL PO SCH (10:01)
[2017-11-30] MEDS: METOPROLOL TARTRATE 50 MG TABLET (FP) PO SCH ×2 (10:01→21:26)
--- NOTE | 2017-11-30 11:19 | PN ---
Progress Note (short form) - Note Progress Note: in bed comfortable getting nebulizer treatment did not have bipap last night -- order written Vital Signs Period Temp Pulse Resp BP Sys/Londono Pulse Ox Last 24 Hr 97 F-98.3 F 72-101 18-20 103-120/70-97 95-99 NAD neck supple heart S1/S2 Lungs clear bilat Abd soft non tender ext + edema LE CBC, BMP 11/30/17 06:30 11/30/17 06:30 Microbiology 11/28/17 14:40 Blood - Peripheral Venous Blood Culture - Preliminary NO GROWTH OBTAINED AFTER 24 HOURS, INCUBATION TO CONTINUE FOR 4 DAYS. 11/28/17 14:40 Blood - Peripheral Venous Blood Culture - Preliminary NO GROWTH OBTAINED AFTER 24 HOURS, INCUBATION TO CONTINUE FOR 4 DAYS. Active Medications Al Hydroxide/Mg Hydroxide (Mylanta Suspension -) 30 ml PO Q6H PRN PRN Reason: INDIGESTION Albuterol/Ipratropium (Duoneb -) 1 amp NEB Q6H PRN PRN Reason: SHORT OF BREATH/WHEEZING Last Admin: 11/30/17 11:09 Dose: 1 amp Apixaban (Eliquis -) 2.5 mg PO BID [facility] Last Admin: 11/30/17 10:01 Dose: 2.5 mg Arformoterol Tartrate (Brovana (Restricted To Pulmonology/Resp) -) 1 amp NEB RBID [facility] Last Admin: 11/30/17 08:02 Dose: 1 amp Docusate Sodium (Colace -) 200 mg PO TID [facility] Last Admin: 11/30/17 06:01 Dose: 200 mg Clindamycin Phosphate (Cleocin 600 Mg Premix Ivpb -) 600 mg in 50 mls @ 100 mls /hr IVPB Q8H-IV [facility]; Protocol Last Admin: 11/30/17 03:00 Dose: 100 mls/hr Aztreonam 1 gm/ Dextrose 50 mls @ 100 mls/hr IVPB Q8H-IV [facility] Last Admin: 11/30/17 03:00 Dose: 100 mls/hr Insulin Detemir (Levemir Vial) 38 units SQ [facility] Last Admin: 11/29/17 23:00 Dose: 38 unit Lisinopril (Prinivil) 10 mg PO DAILY [facility] Last Admin: 11/30/17 10:00 Dose: 10 mg Methylprednisolone Sodium Succinate (Solu-Medrol -) 40 mg IVPUSH Q6H-IV [facility] Last Admin: 11/30/17 10:27 Dose: Not Given Metoclopramide HCl (Reglan -) 5 mg PO TID [facility] Last Admin: 11/30/17 06:04 Dose: 5 mg Metoprolol Tartrate (Lopressor -) 25 mg PO BID [facility] Last Admin: 11/30/17 10:01 Dose: 25 mg Montelukast Sodium (Singulair -) 10 mg PO HS [facility] Last Admin: 11/29/17 21:13 Dose: 10 mg Morphine Sulfate (Ms Contin -) 15 mg PO BID [facility] Last Admin: 11/30/17 10:00 Dose: 15 mg Nitroglycerin (Nitrostat -) 0.4 mg SL PRN PRN PRN Reason: Chest Pain Pantoprazole Sodium (Protonix -) 40 mg PO HS [facility] Last Admin: 11/29/17 21:13 Dose: 40 mg Polyethylene Glycol (Miralax (For Daily Use) -) 17 gm PO DAILY [facility] Last Admin: 11/30/17 10:01 Dose: 17 gm Prednisone (Deltasone -) 40 mg PO BID [facility] Last Admin: 11/30/17 10:00 Dose: 40 mg Pregabalin (Lyrica -) 75 mg PO BID [facility] Last Admin: 11/30/17 10:00 Dose: 75 mg Senna (Senna -) 1 tab PO [facility] Last Admin: 11/29/17 21:13 Dose: 1 tab 62 y/o female patient with long standing pulmonary Sarcoidosis, ILD/fibrosis, pulmonary HTN, COPD, and cardiac Sarcoid s/p ICD for VT and syncope several years ago -- steroid dependant ( 30mg/day); on NOAC therapy for LLE DVT diagnosed in 12/2016, Hep C, HTN, DM recent HgA1c 9.9, OSVALDO on bipap nightly and PRN, HLD, Decubiti mostly healed , Hx of MAT and PAT being controlled on cardizem ( avoid long acting 2/2 to hyportension ), chronic diastolic HF, admitted for increased SOB and possible PNA # Acute on Chronic Hypoxic and Hypercapneic Respiratory Failure continue nebulier / O2 /Bipap/ steroids unclear / unlikely new infiltrate will defer to ID - but will hold abx since IV access now lost c/s pending - negative up to date patient with extensive med allergies # Acute COPD Exacerbation steroids IV & inhaled / O2 / Bipap / Nebulizer due to lack of IV -- prednisone changed to PO keep O2 sats >90% # DM baseline poorly controlled follow with sliding scale / tighter control in setting of increased steroid # LV Diastolic Dysfunction continue lasix # Cardiac arrhythmia continue to monitor MAT / PAT controlled on Cardizem HX of VT and syncopal episodes resulting in need for ICD # DVT (2017) continue Eliquis # dyspnea -- chronic diastolic HF / COPD / pulmonary HTN / Pulmonary Sarcoid -- ILD / fibrosis /OSVALDO steroid dependent / O2 dependent / bipap at night and PRN Problem List - Problems (1) Pneumonia Code(s): J18.9 - PNEUMONIA, UNSPECIFIED ORGANISM (2) Acute on chronic respiratory failure with hypoxia and hypercapnia Code(s): J96.21 - ACUTE AND CHRONIC RESPIRATORY FAILURE WITH HYPOXIA; J96.22 - ACUTE AND CHRONIC RESPIRATORY FAILURE WITH HYPERCAPNIA (3) Allergy to multiple antibiotics Code(s): Z88.1 - ALLERGY STATUS TO OTHER ANTIBIOTIC AGENTS STATUS (4) Altered mental state Code(s): R41.82 - ALTERED MENTAL STATUS, UNSPECIFIED Qualifiers: Altered mental status type: unspecified Qualified Code(s): R41.82 - Altered mental status, unspecified (5) CHF (congestive heart failure) Code(s): I50.9 - HEART FAILURE, UNSPECIFIED Qualifiers: Heart failure type: unspecified Heart failure chronicity: chronic Qualified Code(s): I50.9 - Heart failure, unspecified (6) COPD (chronic obstructive pulmonary disease) Code(s): J44.9 - CHRONIC OBSTRUCTIVE PULMONARY DISEASE, UNSPECIFIED (7) COPD exacerbation Code(s): J44.1 - CHRONIC OBSTRUCTIVE PULMONARY DISEASE W (ACUTE) EXACERBATION (8) Cardiac sarcoidosis Code(s): 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 (9) Chronic diastolic CHF (congestive heart failure) Code(s): I50.32 - CHRONIC DIASTOLIC (CONGESTIVE) HEART FAILURE (10) Chronic low back pain Code(s): M54.5 - LOW BACK PAIN; G89.29 - OTHER CHRONIC PAIN (11) Chronic respiratory failure with hypoxia and hypercapnia Code(s): J96.11 - CHRONIC RESPIRATORY FAILURE WITH HYPOXIA; J96.12 - CHRONIC RESPIRATORY FAILURE WITH HYPERCAPNIA (12) Controlled diabetes mellitus with nephropathy Code(s): E11.21 - TYPE 2 DIABETES MELLITUS WITH DIABETIC NEPHROPATHY (13) DVT (deep venous thrombosis) Code(s): I82.409 - ACUTE EMBOLISM AND THOMBOS UNSP DEEP VN UNSP LOWER EXTREMITY Qualifiers: DVT location: lower extremity Laterality: left (14) Diabetes mellitus Code(s): E11.9 - TYPE 2 DIABETES MELLITUS WITHOUT COMPLICATIONS Qualifiers: Diabetes mellitus type: type 2 Diabetes mellitus complication status: without complication (15) Interstitial lung disease Code(s): J84.9 - INTERSTITIAL PULMONARY DISEASE, UNSPECIFIED (16) Interstitial pulmonary fibrosis Code(s): J84.10 - PULMONARY FIBROSIS, UNSPECIFIED (17) Leukocytosis Code(s): D72.829 - ELEVATED WHITE BLOOD CELL COUNT, UNSPECIFIED (18) Multifocal atrial tachycardia Code(s): I47.1 - SUPRAVENTRICULAR TACHYCARDIA (19) Obstructive sleep apnea Code(s): G47.33 - OBSTRUCTIVE SLEEP APNEA (ADULT) (PEDIATRIC) (20) Oxygen dependent Code(s): Z99.81 - DEPENDENCE ON SUPPLEMENTAL OXYGEN (21) PHT (pulmonary hypertension) Code(s): I27.20 - PULMONARY HYPERTENSION, UNSPECIFIED (22) Pulmonary sarcoidosis Code(s): D86.0 - SARCOIDOSIS OF LUNG (23) SOB (shortness of breath) Code(s): R06.02 - SHORTNESS OF BREATH (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
[2017-11-30 11:24] LABS: PLATELET ESTIMATE ADEQUATE
--- NOTE | 2017-11-30 11:31 | PN ---
Progress Note, Physician History of Present Illness: PULMONARY ALERT,CONGESTED,DYSPNEIC. - Current Medication List Current Medications: Active Medications Al Hydroxide/Mg Hydroxide (Mylanta Suspension -) 30 ml PO Q6H PRN PRN Reason: INDIGESTION Albuterol/Ipratropium (Duoneb -) 1 amp NEB Q6H PRN PRN Reason: SHORT OF BREATH/WHEEZING Last Admin: 11/30/17 11:09 Dose: 1 amp Apixaban (Eliquis -) 2.5 mg PO BID [facility] Last Admin: 11/30/17 10:01 Dose: 2.5 mg Arformoterol Tartrate (Brovana (Restricted To Pulmonology/Resp) -) 1 amp NEB RBID [facility] Last Admin: 11/30/17 08:02 Dose: 1 amp Docusate Sodium (Colace -) 200 mg PO TID [facility] Last Admin: 11/30/17 06:01 Dose: 200 mg Clindamycin Phosphate (Cleocin 600 Mg Premix Ivpb -) 600 mg in 50 mls @ 100 mls /hr IVPB Q8H-IV [facility]; Protocol Last Admin: 11/30/17 03:00 Dose: 100 mls/hr Aztreonam 1 gm/ Dextrose 50 mls @ 100 mls/hr IVPB Q8H-IV [facility] Last Admin: 11/30/17 03:00 Dose: 100 mls/hr Insulin Detemir (Levemir Vial) 38 units SQ [facility] Last Admin: 11/29/17 23:00 Dose: 38 unit Lisinopril (Prinivil) 10 mg PO DAILY [facility] Last Admin: 11/30/17 10:00 Dose: 10 mg Methylprednisolone Sodium Succinate (Solu-Medrol -) 40 mg IVPUSH Q6H-IV [facility] Last Admin: 11/30/17 10:27 Dose: Not Given Metoclopramide HCl (Reglan -) 5 mg PO TID [facility] Last Admin: 11/30/17 06:04 Dose: 5 mg Metoprolol Tartrate (Lopressor -) 25 mg PO BID [facility] Last Admin: 11/30/17 10:01 Dose: 25 mg Montelukast Sodium (Singulair -) 10 mg PO [facility] Last Admin: 11/29/17 21:13 Dose: 10 mg Morphine Sulfate (Ms Contin -) 15 mg PO BID [facility] Last Admin: 11/30/17 10:00 Dose: 15 mg Nitroglycerin (Nitrostat -) 0.4 mg SL PRN PRN PRN Reason: Chest Pain Pantoprazole Sodium (Protonix -) 40 mg PO [facility] Last Admin: 11/29/17 21:13 Dose: 40 mg Polyethylene Glycol (Miralax (For Daily Use) -) 17 gm PO DAILY [facility] Last Admin: 11/30/17 10:01 Dose: 17 gm Prednisone (Deltasone -) 40 mg PO BID [facility] Last Admin: 11/30/17 10:00 Dose: 40 mg Pregabalin (Lyrica -) 75 mg PO BID [facility] Last Admin: 11/30/17 10:00 Dose: 75 mg Senna (Senna -) 1 tab PO [facility] Last Admin: 11/29/17 21:13 Dose: 1 tab - Objective Vital Signs: Vital Signs Temperature 97.9 F 11/30/17 09:59 Pulse Rate 105 H 11/30/17 09:59 Respiratory Rate 20 11/30/17 09:59 Blood Pressure 110/66 11/30/17 09:59 O2 Sat by Pulse Oximetry (%) 99 11/30/17 09:00 Constitutional: Yes: Well Nourished, Mild Distress Eyes: Yes: WNL HENT: Yes: WNL Neck: Yes: WNL Cardiovascular: Yes: Regular Rate and Rhythm, S1, S2 Respiratory: Yes: Rales, Rhonchi (BILATERAL RALES AND RHONCHI) Gastrointestinal: Yes: Normal Bowel Sounds, Soft Extremities: Yes: WNL Edema: No Labs: CBC, BMP 11/30/17 06:30 11/30/17 06:30 INR, PTT INR 1.33 (0.83-1.09) H 11/28/17 14:40 Assessment/Plan Problem List - Problems (1) Acute on chronic respiratory failure with hypoxia and hypercapnia Code(s): J96.21 - ACUTE AND CHRONIC RESPIRATORY FAILURE WITH HYPOXIA; J96.22 - ACUTE AND CHRONIC RESPIRATORY FAILURE WITH HYPERCAPNIA (2) COPD exacerbation Code(s): J44.1 - CHRONIC OBSTRUCTIVE PULMONARY DISEASE W (ACUTE) EXACERBATION (3) Interstitial lung disease Code(s): J84.9 - INTERSTITIAL PULMONARY DISEASE, UNSPECIFIED (4) Pulmonary sarcoidosis Code(s): D86.0 - SARCOIDOSIS OF LUNG (5) Chronic diastolic CHF (congestive heart failure) Code(s): I50.32 - CHRONIC DIASTOLIC (CONGESTIVE) HEART FAILURE Assessment/Plan Acute on Chronic Hypoxic and Hypercapneic Respiratory Failure Acute COPD Exacerbation Advanced Pulmonary/Cardiac Sarcoidosis LV Diastolic Dysfunction h/o DVT s/p ICD DM - IV medrol - inhaled bronchodilators standing and PRN - O2 to keep SpO2 >90% - empiric antibiotics per ID - BiPAP at night and PRN during day - glucose control while on systemic steroids - continue anticoagulation DR EUBANKS
--- NOTE | 2017-11-30 16:27 | PN ---
Progress Note (short form) - Note Progress Note: feels improved still some sob and wheezing- ?baseline Vital Signs Period Temp Pulse Resp BP Sys/Londono Pulse Ox Last 24 Hr 97.4 F-97.9 F 74-105 18-20 110-122/66-72 99-99 cor-rrr lungs scattered rhonchi abd soft,nt ext no edema CBC, BMP 11/30/17 06:30 11/30/17 06:30 cxray improved from prior visit a/p suggest d/c antibiotics management of copd exacerbation per pulmonary taper steroids per pulmonary advanced pulmonary/cardiac sarcoid please call back if needed
[2017-11-30] MEDS: FUROSEMIDE 40 MG TABLET (FP) PO SCH (18:36)
[2017-11-30] MEDS: SENNOSIDES 8.6MG TABLET (FP) PO SCH (21:25)
[2017-11-30] MEDS: PANTOPRAZOLE 40 MG TABLET (FP) PO SCH (21:26)
[2017-11-30] MEDS: INSULIN (LEVEMIR) 100 UNITS/ML UNITS SQ SCH (21:32)
[2017-11-30] MEDS: MONTELUKAST NA 10 MG TABLET PO SCH (21:32)
[2017-11-30] MEDS: NYSTATIN POWDER 100,000 UNITS/GM - 15 GM TOPICAL POWDER TP SCH (21:33)
[2017-12-01] MEDS: ALBUTEROL SO4 2.5/IPRATROPIUM 0.5 INH SOL 3 ML VIAL.NEB. NEB PRN ×3 (00:20→16:24)
[2017-12-01] MEDS: methylPREDNISolone NA SUCC 40 MG/1 ML VIAL IVPUSH SCH ×2 (02:19→09:28)
[2017-12-01] MEDS: METOCLOPRAMIDE HCL 10 MG TABLET (FP) PO SCH ×3 (05:02→21:53)
[2017-12-01] MEDS: DOCUSATE SODIUM 100 MG CAPSULE (FP) PO SCH ×3 (05:02→21:53)
[2017-12-01] MEDS ORDERED: PT OWN MED DRAWER 7, Y5N ONE (07:23)
[2017-12-01] MEDS: ARFORMOTEROL TARTRATE 15 MCG/2 ML VIAL NEB SCH ×2 (07:40→20:45)
[2017-12-01 07:59] LABS: BASO % 0.2 % (0-2.0); EOS % 0.4 % (0-4.5); HEMATOCRIT 32.2 % (32.4-45.2); HEMOGLOBIN 10.3 GM/dL (10.7-15.3); MEAN CELL VOLUME 84.5 fl (80-96); MEAN PLT VOLUME 7.7 fl (7.5-11.1); NEUT % 76.4 % (42.8-82.8); PLATELET COUNT 312 K/MM3 (134-434); RDW 17.8 % (11.6-15.6); WHITE BLOOD COUNT 10.6 K/mm3 (4.0-10.0)
[2017-12-01 08:48] LABS: CHLORIDE 99 mmol/L (98-107); POTASSIUM 3.6 mmol/L (3.5-5.1); SODIUM 142 mmol/L (136-145)
[2017-12-01 08:59] LABS: ANION GAP 6 MMOL/L (8-16); BLOOD UREA NITROGEN 20 mg/dL (7-18); CALCIUM 7.9 mg/dL (8.5-10.1); CO2 37 mmol/L (21-32); CREATININE 0.5 mg/dL (0.55-1.02); GLUCOSE,RANDOM 75 mg/dL (74-106)
[2017-12-01] MEDS: predniSONE 20 MG TABLET (UD) PO SCH ×2 (09:25→21:52)
[2017-12-01] MEDS: METOPROLOL TARTRATE 50 MG TABLET (FP) PO SCH ×2 (09:26→21:50)
[2017-12-01] MEDS: morphine SO4 SUSTAINED ACTING 15 MG TABLET.SA PO SCH ×2 (09:26→21:54)
[2017-12-01] MEDS: FUROSEMIDE 40 MG TABLET (FP) PO SCH (09:26)
[2017-12-01] MEDS: APIXABAN 2.5 MG TABLET PO SCH ×2 (09:26→21:53)
[2017-12-01] MEDS: NYSTATIN POWDER 100,000 UNITS/GM - 15 GM TOPICAL POWDER TP SCH ×2 (09:27→21:58)
[2017-12-01] MEDS: PREGABALIN 75 MG CAPSULE PO SCH ×2 (09:27→21:50)
[2017-12-01] MEDS: LISINOPRIL 10 MG TABLET (FP) PO SCH (09:27)
[2017-12-01] MEDS: POLYETHYLENE GLYCOL 3350 119 GM BTL PO SCH (09:27)
[2017-12-01] MEDS: SUCRALFATE 1 GM/10 ML UNIT DOSE CUPS PO SCH ×3 (11:30→21:49)
--- NOTE | 2017-12-01 12:49 | PN ---
Progress Note, Physician History of Present Illness: pulmonary alert,feeling better,less dyspneic,oob-chair - Current Medication List Current Medications: Active Medications Al Hydroxide/Mg Hydroxide (Mylanta Suspension -) 30 ml PO Q6H PRN PRN Reason: INDIGESTION Albuterol/Ipratropium (Duoneb -) 1 amp NEB Q6H PRN PRN Reason: SHORT OF BREATH/WHEEZING Last Admin: 12/01/17 11:19 Dose: 1 amp Apixaban (Eliquis -) 2.5 mg PO BID [facility] Last Admin: 12/01/17 09:26 Dose: 2.5 mg Arformoterol Tartrate (Brovana (Restricted To Pulmonology/Resp) -) 1 amp NEB RBID [facility] Last Admin: 12/01/17 07:40 Dose: 1 amp Docusate Sodium (Colace -) 200 mg PO TID [facility] Last Admin: 12/01/17 05:02 Dose: 200 mg Furosemide (Lasix -) 60 mg PO DAILY [facility] Last Admin: 12/01/17 09:26 Dose: 60 mg Insulin Detemir (Levemir Vial) 38 units SQ [facility] Last Admin: 11/30/17 21:32 Dose: 38 unit Lisinopril (Prinivil) 10 mg PO DAILY [facility] Last Admin: 12/01/17 09:27 Dose: 10 mg Metoclopramide HCl (Reglan -) 5 mg PO TID [facility] Last Admin: 12/01/17 05:02 Dose: 5 mg Metoprolol Tartrate (Lopressor -) 25 mg PO BID [facility] Last Admin: 12/01/17 09:26 Dose: 25 mg Montelukast Sodium (Singulair -) 10 mg PO [facility] Last Admin: 11/30/17 21:32 Dose: 10 mg Morphine Sulfate (Ms Contin -) 15 mg PO BID [facility] Last Admin: 12/01/17 09:26 Dose: 15 mg Nitroglycerin (Nitrostat -) 0.4 mg SL PRN PRN PRN Reason: Chest Pain Nystatin (Nystop Powder -) 1 applic TP BID [facility] Last Admin: 12/01/17 09:27 Dose: 1 applic Pantoprazole Sodium (Protonix -) 40 mg PO [facility] Last Admin: 11/30/17 21:26 Dose: 40 mg Polyethylene Glycol (Miralax (For Daily Use) -) 17 gm PO DAILY [facility] Last Admin: 12/01/17 09:27 Dose: 17 gm Prednisone (Deltasone -) 40 mg PO BID [facility] Last Admin: 12/01/17 09:25 Dose: 40 mg Pregabalin (Lyrica -) 75 mg PO BID [facility] Last Admin: 12/01/17 09:27 Dose: 75 mg Senna (Senna -) 1 tab PO HS [facility] Last Admin: 11/30/17 21:25 Dose: 1 tab Sucralfate (Carafate Oral Suspension -) 1 gm PO ACHS [facility] Last Admin: 12/01/17 11:30 Dose: 1 gm - Objective Vital Signs: Vital Signs Temperature 98.4 F 12/01/17 09:39 Pulse Rate 97 H 12/01/17 09:39 Respiratory Rate 19 12/01/17 09:39 Blood Pressure 109/64 12/01/17 09:39 O2 Sat by Pulse Oximetry (%) 98 12/01/17 04:35 Constitutional: Yes: Well Nourished, Calm Eyes: Yes: WNL HENT: Yes: WNL Neck: Yes: WNL Cardiovascular: Yes: Regular Rate and Rhythm, S1, S2 Respiratory: Yes: Rales (bilateral rales and rhonchi) Gastrointestinal: Yes: Normal Bowel Sounds, Soft Extremities: Yes: WNL Edema: No Labs: CBC, BMP 12/01/17 06:30 12/01/17 06:30 INR, PTT INR 1.33 (0.83-1.09) H 11/28/17 14:40 Assessment/Plan Problem List - Problems (1) Acute on chronic respiratory failure with hypoxia and hypercapnia Code(s): J96.21 - ACUTE AND CHRONIC RESPIRATORY FAILURE WITH HYPOXIA; J96.22 - ACUTE AND CHRONIC RESPIRATORY FAILURE WITH HYPERCAPNIA (2) COPD exacerbation Code(s): J44.1 - CHRONIC OBSTRUCTIVE PULMONARY DISEASE W (ACUTE) EXACERBATION (3) Interstitial lung disease Code(s): J84.9 - INTERSTITIAL PULMONARY DISEASE, UNSPECIFIED (4) Pulmonary sarcoidosis Code(s): D86.0 - SARCOIDOSIS OF LUNG (5) Chronic diastolic CHF (congestive heart failure) Code(s): I50.32 - CHRONIC DIASTOLIC (CONGESTIVE) HEART FAILURE Assessment/Plan Acute on Chronic Hypoxic and Hypercapneic Respiratory Failure Acute COPD Exacerbation Advanced Pulmonary/Cardiac Sarcoidosis LV Diastolic Dysfunction h/o DVT s/p ICD DM - IV medrol same dose - inhaled bronchodilators standing and PRN - O2 to keep SpO2 >90% - BiPAP at night and PRN during day - glucose control while on systemic steroids - continue anticoagulation DR EUBANKS
[2017-12-01] MEDS: MONTELUKAST NA 10 MG TABLET PO SCH (21:50)
[2017-12-01] MEDS: SENNOSIDES 8.6MG TABLET (FP) PO SCH (21:53)
[2017-12-01] MEDS: PANTOPRAZOLE 40 MG TABLET (FP) PO SCH (21:54)
[2017-12-01] MEDS: INSULIN (LEVEMIR) 100 UNITS/ML UNITS SQ SCH (21:55)
--- NOTE | 2017-12-01 23:21 | PN ---
Progress Note (short form) - Note Progress Note: in bed comfortable bipapat bedside c/o pain to right great toe Vital Signs Period Temp Pulse Resp BP Sys/Londono Pulse Ox Last 24 Hr 97.9 F-98.5 F 76-114 18-21 93-109/55-67 97-99 NAD neck supple heart S1/S2 Lungs clear bilat Abd soft non tender ext no edema / painful tip of right great toe CBC, BMP 12/01/17 06:30 12/01/17 06:30 Microbiology 11/30/17 19:30 Urine For Antigen Detection Legionella Antigen - Final 11/30/17 19:30 Urine For Antigen Detection Streptococcus pneumoniae Antigen (M - Final 11/28/17 14:40 Blood - Peripheral Venous Blood Culture - Preliminary NO GROWTH OBTAINED AFTER 72 HOURS, INCUBATION TO CONTINUE FOR 2 DAYS. 11/28/17 14:40 Blood - Peripheral Venous Blood Culture - Preliminary NO GROWTH OBTAINED AFTER 72 HOURS, INCUBATION TO CONTINUE FOR 2 DAYS. 11/29/17 18:00 Sputum - Expectorated Gram Stain - Final 11/29/17 18:00 Sputum - Expectorated Sputum Culture - Preliminary NORMAL RESPIRATORY MARTHA Active Medications Al Hydroxide/Mg Hydroxide (Mylanta Suspension -) 30 ml PO Q6H PRN PRN Reason: INDIGESTION Albuterol/Ipratropium (Duoneb -) 1 amp NEB Q6H PRN PRN Reason: SHORT OF BREATH/WHEEZING Last Admin: 12/01/17 16:24 Dose: 1 amp Apixaban (Eliquis -) 2.5 mg PO BID [facility] Last Admin: 12/01/17 21:53 Dose: 2.5 mg Arformoterol Tartrate (Brovana (Restricted To Pulmonology/Resp) -) 1 amp NEB RBID [facility] Last Admin: 12/01/17 20:45 Dose: 1 amp Docusate Sodium (Colace -) 200 mg PO TID [facility] Last Admin: 12/01/17 21:53 Dose: 200 mg Furosemide (Lasix -) 60 mg PO DAILY [facility] Last Admin: 12/01/17 09:26 Dose: 60 mg Insulin Aspart (Novolog Vial Sliding Scale -) 1 vial SQ ACHS [facility]; Protocol Insulin Detemir (Levemir Vial) 38 units SQ HS [facility] Last Admin: 12/01/17 21:55 Dose: 38 unit Lisinopril (Prinivil) 10 mg PO DAILY [facility] Last Admin: 12/01/17 09:27 Dose: 10 mg Metoclopramide HCl (Reglan -) 5 mg PO TID [facility] Last Admin: 12/01/17 21:53 Dose: 5 mg Metoprolol Tartrate (Lopressor -) 25 mg PO BID [facility] Last Admin: 12/01/17 21:50 Dose: 25 mg Montelukast Sodium (Singulair -) 10 mg PO HS [facility] Last Admin: 12/01/17 21:50 Dose: 10 mg Morphine Sulfate (Ms Contin -) 15 mg PO BID [facility] Last Admin: 12/01/17 21:54 Dose: 15 mg Nitroglycerin (Nitrostat -) 0.4 mg SL PRN PRN PRN Reason: Chest Pain Nystatin (Nystop Powder -) 1 applic TP BID [facility] Last Admin: 12/01/17 21:58 Dose: 1 applic Pantoprazole Sodium (Protonix -) 40 mg PO HS [facility] Last Admin: 12/01/17 21:54 Dose: 40 mg Polyethylene Glycol (Miralax (For Daily Use) -) 17 gm PO DAILY [facility] Last Admin: 12/01/17 09:27 Dose: 17 gm Prednisone (Deltasone -) 60 mg PO DAILY [facility] Pregabalin (Lyrica -) 75 mg PO BID [facility] Last Admin: 12/01/17 21:50 Dose: 75 mg Senna (Senna -) 1 tab PO HS [facility] Last Admin: 12/01/17 21:53 Dose: 1 tab Sucralfate (Carafate Oral Suspension -) 1 gm PO ACHS [facility] Last Admin: 12/01/17 21:49 Dose: 1 gm 62 y/o female patient with long standing pulmonary Sarcoidosis, ILD/fibrosis, pulmonary HTN, COPD, and cardiac Sarcoid s/p ICD for VT and syncope several years ago -- steroid dependant ( 30mg/day); on NOAC therapy for LLE DVT diagnosed in 12/2016, Hep C, HTN, DM recent HgA1c 9.9, OSVALDO on bipap nightly and PRN, HLD, Decubiti mostly healed , Hx of MAT and PAT being controlled on cardizem ( avoid long acting 2/2 to hyportension ), chronic diastolic HF, admitted for increased SOB and possible PNA # painful right tip of great toe podiatry consult ingrown nail ? # Acute on Chronic Hypoxic and Hypercapneic Respiratory Failure continue nebulier / O2 /Bipap/ steroids unclear / unlikely new infiltrate / CXR at baseline will defer to ID - but will hold abx since IV access now lost c/s pending - negative up to date patient with extensive med allergies # Acute COPD Exacerbation steroids IV & inhaled / O2 / Bipap / Nebulizer due to lack of IV -- prednisone changed to PO keep O2 sats >90% # DM baseline poorly controlled follow with sliding scale / tighter control in setting of increased steroid # LV Diastolic Dysfunction continue lasix # Cardiac arrhythmia continue to monitor MAT / PAT controlled on Cardizem HX of VT and syncopal episodes resulting in need for ICD # DVT (2017) continue Eliquis # dyspnea -- chronic diastolic HF / COPD / pulmonary HTN / Pulmonary Sarcoid -- ILD / fibrosis /OSVALDO steroid dependent / O2 dependent / bipap at night and PRN Problem List - Problems (1) Pneumonia Code(s): J18.9 - PNEUMONIA, UNSPECIFIED ORGANISM (2) Acute on chronic respiratory failure with hypoxia and hypercapnia Code(s): J96.21 - ACUTE AND CHRONIC RESPIRATORY FAILURE WITH HYPOXIA; J96.22 - ACUTE AND CHRONIC RESPIRATORY FAILURE WITH HYPERCAPNIA (3) Allergy to multiple antibiotics Code(s): Z88.1 - ALLERGY STATUS TO OTHER ANTIBIOTIC AGENTS STATUS (4) Altered mental state Code(s): R41.82 - ALTERED MENTAL STATUS, UNSPECIFIED Qualifiers: Altered mental status type: unspecified Qualified Code(s): R41.82 - Altered mental status, unspecified (5) CHF (congestive heart failure) Code(s): I50.9 - HEART FAILURE, UNSPECIFIED Qualifiers: Heart failure type: unspecified Heart failure chronicity: chronic Qualified Code(s): I50.9 - Heart failure, unspecified (6) COPD (chronic obstructive pulmonary disease) Code(s): J44.9 - CHRONIC OBSTRUCTIVE PULMONARY DISEASE, UNSPECIFIED (7) COPD exacerbation Code(s): J44.1 - CHRONIC OBSTRUCTIVE PULMONARY DISEASE W (ACUTE) EXACERBATION (8) Cardiac sarcoidosis Code(s): 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 (9) Chronic diastolic CHF (congestive heart failure) Code(s): I50.32 - CHRONIC DIASTOLIC (CONGESTIVE) HEART FAILURE (10) Chronic low back pain Code(s): M54.5 - LOW BACK PAIN; G89.29 - OTHER CHRONIC PAIN (11) Chronic respiratory failure with hypoxia and hypercapnia Code(s): J96.11 - CHRONIC RESPIRATORY FAILURE WITH HYPOXIA; J96.12 - CHRONIC RESPIRATORY FAILURE WITH HYPERCAPNIA (12) Controlled diabetes mellitus with nephropathy Code(s): E11.21 - TYPE 2 DIABETES MELLITUS WITH DIABETIC NEPHROPATHY (13) DVT (deep venous thrombosis) Code(s): I82.409 - ACUTE EMBOLISM AND THOMBOS UNSP DEEP VN UNSP LOWER EXTREMITY Qualifiers: DVT location: lower extremity Laterality: left (14) Diabetes mellitus Code(s): E11.9 - TYPE 2 DIABETES MELLITUS WITHOUT COMPLICATIONS Qualifiers: Diabetes mellitus type: type 2 Diabetes mellitus complication status: without complication (15) Interstitial lung disease Code(s): J84.9 - INTERSTITIAL PULMONARY DISEASE, UNSPECIFIED (16) Interstitial pulmonary fibrosis Code(s): J84.10 - PULMONARY FIBROSIS, UNSPECIFIED (17) Leukocytosis Code(s): D72.829 - ELEVATED WHITE BLOOD CELL COUNT, UNSPECIFIED (18) Multifocal atrial tachycardia Code(s): I47.1 - SUPRAVENTRICULAR TACHYCARDIA (19) Obstructive sleep apnea Code(s): G47.33 - OBSTRUCTIVE SLEEP APNEA (ADULT) (PEDIATRIC) (20) Oxygen dependent Code(s): Z99.81 - DEPENDENCE ON SUPPLEMENTAL OXYGEN (21) PHT (pulmonary hypertension) Code(s): I27.20 - PULMONARY HYPERTENSION, UNSPECIFIED (22) Pulmonary sarcoidosis Code(s): D86.0 - SARCOIDOSIS OF LUNG (23) SOB (shortness of breath) Code(s): R06.02 - SHORTNESS OF BREATH (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
[2017-12-01] MEDS ORDERED: INSULIN (NOVOLOG) ASPART 100 UNITS/ML 10ML VIAL SQ STA (23:34)
[2017-12-02] MEDS: ALBUTEROL SO4 2.5/IPRATROPIUM 0.5 INH SOL 3 ML VIAL.NEB. NEB PRN ×3 (02:43→22:34)
[2017-12-02] MEDS ORDERED: ACETAMINOPHEN 325 MG TABLET (FP) PO PRN (02:55)
[2017-12-02] MEDS: SODIUM CHLORIDE NASAL SPRAY 44 ML BOTTLE NS PRN ×3 (03:06→18:01)
[2017-12-02] MEDS ORDERED: PT OWN MED DRAWER 7, Y5N ONE (03:22)
[2017-12-02] MEDS: INSULIN SLIDING SCALE (NOVOLOG) 1 VIAL SQ SCH ×4 (06:28→21:52)
[2017-12-02] MEDS: METOCLOPRAMIDE HCL 10 MG TABLET (FP) PO SCH ×3 (06:29→21:48)
[2017-12-02] MEDS: SUCRALFATE 1 GM/10 ML UNIT DOSE CUPS PO SCH ×4 (06:29→21:47)
[2017-12-02] MEDS: DOCUSATE SODIUM 100 MG CAPSULE (FP) PO SCH ×3 (06:29→21:47)
[2017-12-02 08:00] LABS: BASO % 0.2 % (0-2.0); EOS % 0.8 % (0-4.5); HEMATOCRIT 32.7 % (32.4-45.2); HEMOGLOBIN 10.5 GM/dL (10.7-15.3); LYMPH % 16.6 % (8-40); MEAN CELL VOLUME 84.5 fl (80-96); MEAN PLT VOLUME 7.7 fl (7.5-11.1); MONO % 3.6 % (3.8-10.2); NEUT % 78.8 % (42.8-82.8); PLATELET COUNT 309 K/MM3 (134-434); RBC 3.88 M/mm3 (3.60-5.2); WHITE BLOOD COUNT 11.4 K/mm3 (4.0-10.0)
[2017-12-02] MEDS: ARFORMOTEROL TARTRATE 15 MCG/2 ML VIAL NEB SCH ×2 (08:01→20:23)
[2017-12-02 08:34] LABS: ANION GAP 5 MMOL/L (8-16); BLOOD UREA NITROGEN 22 mg/dL (7-18); CHLORIDE 99 mmol/L (98-107); CO2 39 mmol/L (21-32); GLUCOSE,RANDOM 63 mg/dL (74-106); POTASSIUM 3.4 mmol/L (3.5-5.1); SODIUM 143 mmol/L (136-145)
[2017-12-02 08:36] LABS: CREATININE 0.6 mg/dL (0.55-1.02)
[2017-12-02] MEDS: morphine SO4 SUSTAINED ACTING 15 MG TABLET.SA PO SCH ×2 (09:10→21:48)
[2017-12-02] MEDS: predniSONE 20 MG TABLET (UD) PO SCH (09:10)
[2017-12-02] MEDS: APIXABAN 2.5 MG TABLET PO SCH ×2 (09:10→21:48)
--- NOTE | 2017-12-02 09:10 | PN ---
Progress Note (short form) - Note Progress Note: 62 y/o female lying in bed. O2 in place via nasal canula, and states that breathing has improved. C/o nasal discomfort and back pain rated as 6 on pain scale. Vital Signs Period Temp Pulse Resp BP Sys/Londono Pulse Ox Last 24 Hr 97.7 F-98.4 F 89-114 18-21 93-109/56-67 99-99 CBC, BMP 12/02/17 07:03 12/02/17 07:03 HEENT- Normocephalic Neck- supple Lungs- CTAB Heart- S1/S2 Abd- soft, NT Ext- No LE edema Rt ingrown toenail Active Medications Acetaminophen (Tylenol -) 650 mg PO Q4H PRN PRN Reason: PAIN Last Admin: 12/02/17 03:01 Dose: 650 mg Al Hydroxide/Mg Hydroxide (Mylanta Suspension -) 30 ml PO Q6H PRN PRN Reason: INDIGESTION Albuterol/Ipratropium (Duoneb -) 1 amp NEB Q6H PRN PRN Reason: SHORT OF BREATH/WHEEZING Last Admin: 12/02/17 02:43 Dose: 1 amp Apixaban (Eliquis -) 2.5 mg PO BID [facility] Last Admin: 12/01/17 21:53 Dose: 2.5 mg Arformoterol Tartrate (Brovana (Restricted To Pulmonology/Resp) -) 1 amp NEB RBID [facility] Last Admin: 12/02/17 08:01 Dose: 1 amp Docusate Sodium (Colace -) 200 mg PO TID [facility] Last Admin: 12/02/17 06:29 Dose: 200 mg Furosemide (Lasix -) 60 mg PO DAILY [facility] Last Admin: 12/01/17 09:26 Dose: 60 mg Insulin Aspart (Novolog Vial Sliding Scale -) 1 vial SQ ACHS [facility]; Protocol Last Admin: 12/02/17 06:28 Dose: Not Given Insulin Detemir (Levemir Vial) 38 units SQ HS [facility] Last Admin: 12/01/17 21:55 Dose: 38 unit Lisinopril (Prinivil) 10 mg PO DAILY [facility] Last Admin: 12/01/17 09:27 Dose: 10 mg Metoclopramide HCl (Reglan -) 5 mg PO TID [facility] Last Admin: 12/02/17 06:29 Dose: 5 mg Metoprolol Tartrate (Lopressor -) 25 mg PO BID [facility] Last Admin: 12/01/17 21:50 Dose: 25 mg Montelukast Sodium (Singulair -) 10 mg PO HS [facility] Last Admin: 12/01/17 21:50 Dose: 10 mg Morphine Sulfate (Ms Contin -) 15 mg PO BID [facility] Last Admin: 12/01/17 21:54 Dose: 15 mg Nitroglycerin (Nitrostat -) 0.4 mg SL PRN PRN PRN Reason: Chest Pain Nystatin (Nystop Powder -) 1 applic TP BID [facility] Last Admin: 12/01/17 21:58 Dose: 1 applic Pantoprazole Sodium (Protonix -) 40 mg PO HS [facility] Last Admin: 12/01/17 21:54 Dose: 40 mg Polyethylene Glycol (Miralax (For Daily Use) -) 17 gm PO DAILY [facility] Last Admin: 12/01/17 09:27 Dose: 17 gm Prednisone (Deltasone -) 60 mg PO DAILY [facility] Pregabalin (Lyrica -) 75 mg PO BID [facility] Last Admin: 12/01/17 21:50 Dose: 75 mg Senna (Senna -) 1 tab PO HS [facility] Last Admin: 12/01/17 21:53 Dose: 1 tab Sodium Chloride ([place]al [place] -) 2 spray NS Q4H PRN PRN Reason: NASAL CONGESTION Last Admin: 12/02/17 03:17 Dose: 2 spray Sucralfate (Carafate Oral Suspension -) 1 gm PO ACHS [facility] Last Admin: 12/02/17 06:29 Dose: 1 gm #Nasal turbinate pain Refer to ENT # painful right tip of great toe podiatry consult pending ingrown nail # Acute on Chronic Hypoxic and Hypercapneic Respiratory Failure continue nebulizer / O2 /Bipap/ steroids CXR baseline ID consult appreciated- Antibiotics not indicated # Acute COPD Exacerbation Cont steroids PO & inhaled / O2 / Bipap / Nebulizer keep O2 sats >90% # DM baseline poorly controlled follow with sliding scale # LV Diastolic Dysfunction continue lasix # Cardiac arrhythmia continue to monitor MAT / PAT controlled on Cardizem HX of VT and syncopal episodes resulting in need for ICD # DVT (2017) continue Eliquis BID # dyspnea -- chronic diastolic HF / COPD / pulmonary HTN / Pulmonary Sarcoid -- ILD / fibrosis /OSVALDO steroid and O2 dependent / bipap at night and PRN Problem List - Problems (1) Pneumonia Code(s): J18.9 - PNEUMONIA, UNSPECIFIED ORGANISM (2) Acute on chronic respiratory failure with hypoxia and hypercapnia Code(s): J96.21 - ACUTE AND CHRONIC RESPIRATORY FAILURE WITH HYPOXIA; J96.22 - ACUTE AND CHRONIC RESPIRATORY FAILURE WITH HYPERCAPNIA (3) Allergy to multiple antibiotics Code(s): Z88.1 - ALLERGY STATUS TO OTHER ANTIBIOTIC AGENTS STATUS (4) Altered mental state Code(s): R41.82 - ALTERED MENTAL STATUS, UNSPECIFIED Qualifiers: Altered mental status type: unspecified Qualified Code(s): R41.82 - Altered mental status, unspecified (5) CHF (congestive heart failure) Code(s): I50.9 - HEART FAILURE, UNSPECIFIED Qualifiers: Heart failure type: unspecified Heart failure chronicity: chronic Qualified Code(s): I50.9 - Heart failure, unspecified (6) COPD (chronic obstructive pulmonary disease) Code(s): J44.9 - CHRONIC OBSTRUCTIVE PULMONARY DISEASE, UNSPECIFIED (7) COPD exacerbation Code(s): J44.1 - CHRONIC OBSTRUCTIVE PULMONARY DISEASE W (ACUTE) EXACERBATION (8) Cardiac sarcoidosis Code(s): 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 (9) Chronic diastolic CHF (congestive heart failure) Code(s): I50.32 - CHRONIC DIASTOLIC (CONGESTIVE) HEART FAILURE (10) Chronic low back pain Code(s): M54.5 - LOW BACK PAIN; G89.29 - OTHER CHRONIC PAIN (11) Chronic respiratory failure with hypoxia and hypercapnia Code(s): J96.11 - CHRONIC RESPIRATORY FAILURE WITH HYPOXIA; J96.12 - CHRONIC RESPIRATORY FAILURE WITH HYPERCAPNIA (12) Controlled diabetes mellitus with nephropathy Code(s): E11.21 - TYPE 2 DIABETES MELLITUS WITH DIABETIC NEPHROPATHY (13) DVT (deep venous thrombosis) Code(s): I82.409 - ACUTE EMBOLISM AND THOMBOS UNSP DEEP VN UNSP LOWER EXTREMITY Qualifiers: DVT location: lower extremity Laterality: left (14) Diabetes mellitus Code(s): E11.9 - TYPE 2 DIABETES MELLITUS WITHOUT COMPLICATIONS Qualifiers: Diabetes mellitus type: type 2 Diabetes mellitus complication status: without complication (15) Interstitial lung disease Code(s): J84.9 - INTERSTITIAL PULMONARY DISEASE, UNSPECIFIED (16) Interstitial pulmonary fibrosis Code(s): J84.10 - PULMONARY FIBROSIS, UNSPECIFIED (17) Leukocytosis Code(s): D72.829 - ELEVATED WHITE BLOOD CELL COUNT, UNSPECIFIED (18) Multifocal atrial tachycardia Code(s): I47.1 - SUPRAVENTRICULAR TACHYCARDIA (19) Obstructive sleep apnea Code(s): G47.33 - OBSTRUCTIVE SLEEP APNEA (ADULT) (PEDIATRIC) (20) Oxygen dependent Code(s): Z99.81 - DEPENDENCE ON SUPPLEMENTAL OXYGEN (21) PHT (pulmonary hypertension) Code(s): I27.20 - PULMONARY HYPERTENSION, UNSPECIFIED (22) Pulmonary sarcoidosis Code(s): D86.0 - SARCOIDOSIS OF LUNG (23) SOB (shortness of breath) Code(s): R06.02 - SHORTNESS OF BREATH (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
[2017-12-02] MEDS: LISINOPRIL 10 MG TABLET (FP) PO SCH (09:11)
[2017-12-02] MEDS: FUROSEMIDE 40 MG TABLET (FP) PO SCH (09:11)
[2017-12-02] MEDS: METOPROLOL TARTRATE 50 MG TABLET (FP) PO SCH ×2 (09:11→22:46)
[2017-12-02] MEDS: PREGABALIN 75 MG CAPSULE PO SCH ×2 (09:12→21:48)
[2017-12-02] MEDS: NYSTATIN POWDER 100,000 UNITS/GM - 15 GM TOPICAL POWDER TP SCH ×2 (09:12→21:52)
[2017-12-02] MEDS: POLYETHYLENE GLYCOL 3350 119 GM BTL PO SCH (09:12)
[2017-12-02 11:22] LABS: ANISOCYTOSIS 1+; MACROCYTOSIS 0; PLATELET ESTIMATE NORMAL
--- NOTE | 2017-12-02 12:31 | HP ---
Admitting History and Physical - Past Medical History [employer]: Yes: Dementia, Seizure Cardiovascular: Yes: AFIB, CHF, Deep Vein Thrombosis, HTN, Hyperlipdemia, Pulmonary Hypertension, Other (pulmonar Sarcoid / ILD / pulmoary fibrosis) Pulmonary: Yes: Asthma, COPD, Previously Intubated, Sleep Apnea, Pulmonary Fibrosis, O2 Dependent, Other Gastrointestinal: Yes: Diverticulitis, Diverticulosis, Gastritis, GERD, Other Hepatobiliary: Yes: Hepatitis C Heme/Onc: Yes: Anemia Infectious Disease: Yes: Other Psych: Yes: Anxiety, Depression Musculoskeletal: Yes: Chronic low back pain Rheumatology: Yes: Sarcoidosis (cardiac and pulmonary) Endocrine: Yes: Diabetes Mellitus - Past Surgical History Past Surgical History: Yes: Laminectomy, AICD, Permanent Pacemaker - Smoking History Smoking history: Unknown if ever smoked Have you smoked in the past 12 months: No Aproximately how many cigarettes per day: 0 - Alcohol/Substance Use Hx Alcohol Use: No History of Substance Use: reports: None - Social History ADL: Support Services History of Recent Travel: No Home Medications - Allergies Allergies/Adverse Reactions: Allergies Allergy/AdvReac Type Severity Reaction Status Date / Time medroxyprogesterone acetate Allergy Severe stepehns Verified 11/28/17 14:30 [From Depo-Provera] josé syndrome amoxicillin trihydrate Allergy Verified 11/28/17 14:30 [From Augmentin] aspirin Allergy Verified 11/28/17 14:30 azithromycin [From Zithromax] Allergy Dewey Verified 11/28/17 14:30 José syndrome bacitracin Allergy Verified 11/28/17 14:30 ciprofloxacin HCl Allergy Verified 11/28/17 14:30 [From Cipro] clavulanic acid Allergy Verified 11/28/17 14:30 [From Augmentin] codeine [Codeine] Allergy Verified 11/28/17 14:30 Iodinated Contrast- Oral and Allergy Verified 11/28/17 14:30 IV Dye [IV Dye, Iodine Containing Contrast ] ketorolac tromethamine Allergy Verified 11/28/17 14:30 [From Toradol] levofloxacin [From Levaquin] Allergy Verified 11/28/17 14:30 metronidazole [From Flagyl] Allergy Verified 11/28/17 14:30 nalbuphine HCl [From Nubain] Allergy CYANOSIS Verified 11/28/17 14:30 potassium clavulanate Allergy Verified 11/28/17 14:30 [From Augmentin] Shellfish Allergy Verified 11/28/17 14:30 shellfish derived Allergy Verified 11/28/17 14:30 sulfamethoxazole Allergy Verified 11/28/17 14:30 [From Bactrim] trimethoprim [From Bactrim] Allergy Verified 11/28/17 14:30 - Home Medications Home Medications: Ambulatory Orders Apixaban [Eliquis] 2.5 mg PO BID 11/28/17 Arformoterol Tartrate [Brovana] 15 mcg IH BID 11/28/17 Docusate Sodium [Colace] 200 mg PO TID 11/28/17 Erythromycin [Bhavik-Tab -] 500 mg PO Q6HPO 11/28/17 Insulin Detemir [Levemir Flextouch] 20 unit SQ HS 11/28/17 Lisinopril 10 mg PO DAILY 11/28/17 Mag Hydrox/Al Hydrox/Simeth [Mylanta Suspension -] 30 ml PO Q6H PRN 11/28/17 Metoclopramide HCl 5 mg PO TID 11/28/17 Metoprolol Tartrate [Lopressor] 25 mg PO BID 11/28/17 Montelukast Sodium [Singulair] 10 mg PO HS 11/28/17 Morphine *Sr* [Ms Contin -] 15 mg PO Q12H 11/28/17 Morphine Sulfate [Morphine Sulfate ER] 10 mg PO Q6H 11/28/17 Multivitamin [Multiple Vitamins] 1 each PO DAILY 11/28/17 Nitroglycerin [Nitrostat] 0.4 mg SL PRN PRN 11/28/17 Pantoprazole Sodium 40 mg PO HS 11/28/17 Polyethylene Glycol 3350 [Miralax (For Daily Use) -] 17 gm PO DAILY 11/28/17 Prednisone [Deltasone] 40 mg PO DAILY 11/28/17 Pregabalin [Lyrica] 25 mg PO BID 11/28/17 Sennosides [Senna] 8.6 mg PO HS 11/28/17 Sucralfate Oral Suspension [Carafate Oral Suspension -] 1 gm PO ASDIR 11/28/17 Vitamin E Acid Succinate [Vitamin E] 500 unit PO DAILY 11/28/17 Furosemide [Lasix -] 60 mg PO DAILY 11/30/17 Family Disease History - Family Disease History Family Disease History: Other: Father (: cancer: no colon), Mother (3 CVAs, the first in her 60s) Physical Examination Vital Signs: Vital Signs Temperature 97.7 F 12/02/17 05:32 Pulse Rate 89 12/02/17 05:32 Respiratory Rate 21 12/02/17 05:32 Blood Pressure 97/57 12/02/17 05:32 O2 Sat by Pulse Oximetry (%) 99 12/02/17 10:00 Labs: CBC, BMP 12/02/17 07:03 12/02/17 07:03
--- NOTE | 2017-12-02 12:57 | CONSULT ---
Consult - text type - Consultation Consultation Note: Patient seen for evaluation of pain right big toe. Patient is diabetic. Does not go to a [facility] outpatient. vss, nvsgi, +onychomycosis b/l hallux, +tender lateral border of right hallux + erythema, -drainage, -cellulitis ascending, onychomycosis pain dm Debride nails x 10, slant back right hallux lateral border, Discussed diabetic foot care at length. Patient advised to follow up w
--- NOTE | 2017-12-02 16:20 | PN ---
Progress Note (short form) - Note Progress Note: Still SOB. Doesn't feel like she is betting enough pressure on the NIPPV. EPAP only set at 5 cm H2O. Congested cough. Intake & Output 11/29/17 11/30/17 12/01/17 12/02/17 23:59 23:59 23:59 23:59 Intake Total 852 164 3887 120 Balance 839 936 9412 120 Last Vital Signs Temp Pulse Resp BP Pulse Ox 97.9 F 87 20 101/69 99 12/02/17 15:31 12/02/17 15:31 12/02/17 15:31 12/02/17 15:31 12/02/17 10:00 Active Medications Acetaminophen (Tylenol -) 650 mg PO Q4H PRN PRN Reason: PAIN Last Admin: 12/02/17 03:01 Dose: 650 mg Al Hydroxide/Mg Hydroxide (Mylanta Suspension -) 30 ml PO Q6H PRN PRN Reason: INDIGESTION Albuterol/Ipratropium (Duoneb -) 1 amp NEB Q6H PRN PRN Reason: SHORT OF BREATH/WHEEZING Last Admin: 12/02/17 14:49 Dose: 1 amp Apixaban (Eliquis -) 2.5 mg PO BID [facility] Last Admin: 12/02/17 09:10 Dose: 2.5 mg Arformoterol Tartrate (Brovana (Restricted To Pulmonology/Resp) -) 1 amp NEB RBID [facility] Last Admin: 12/02/17 08:01 Dose: 1 amp Docusate Sodium (Colace -) 200 mg PO TID [facility] Last Admin: 12/02/17 14:50 Dose: 200 mg Furosemide (Lasix -) 60 mg PO DAILY [facility] Last Admin: 12/02/17 09:11 Dose: 60 mg Insulin Aspart (Novolog Vial Sliding Scale -) 1 vial SQ ACHS [facility]; Protocol Last Admin: 12/02/17 12:07 Dose: Not Given Insulin Detemir (Levemir Vial) 38 units SQ HS [facility] Last Admin: 12/01/17 21:55 Dose: 38 unit Lisinopril (Prinivil) 10 mg PO DAILY [facility] Last Admin: 12/02/17 09:11 Dose: 10 mg Metoclopramide HCl (Reglan -) 5 mg PO TID [facility] Last Admin: 12/02/17 14:49 Dose: 5 mg Metoprolol Tartrate (Lopressor -) 25 mg PO BID [facility] Last Admin: 12/02/17 09:11 Dose: 25 mg Montelukast Sodium (Singulair -) 10 mg PO HS [facility] Last Admin: 12/01/17 21:50 Dose: 10 mg Morphine Sulfate (Ms Contin -) 15 mg PO BID [facility] Last Admin: 12/02/17 09:10 Dose: 15 mg Nitroglycerin (Nitrostat -) 0.4 mg SL PRN PRN PRN Reason: Chest Pain Nystatin (Nystop Powder -) 1 applic TP BID [facility] Last Admin: 12/02/17 09:12 Dose: 1 applic Pantoprazole Sodium (Protonix -) 40 mg PO HS [facility] Last Admin: 12/01/17 21:54 Dose: 40 mg Polyethylene Glycol (Miralax (For Daily Use) -) 17 gm PO DAILY [facility] Last Admin: 12/02/17 09:12 Dose: 17 gm Prednisone (Deltasone -) 60 mg PO DAILY [facility] Last Admin: 12/02/17 09:10 Dose: 60 mg Pregabalin (Lyrica -) 75 mg PO BID [facility] Last Admin: 12/02/17 09:12 Dose: 75 mg Senna (Senna -) 1 tab PO HS [facility] Last Admin: 12/01/17 21:53 Dose: 1 tab Sodium Chloride ([place] -) 2 spray NS Q4H PRN PRN Reason: NASAL CONGESTION Last Admin: 12/02/17 03:17 Dose: 2 spray Sucralfate (Carafate Oral Suspension -) 1 gm PO ACHS [facility] Last Admin: 12/02/17 12:07 Dose: 1 gm Constitutional: Yes: Mildly tachypneic at rest Eyes: Yes: WNL HENT: Yes: WNL Neck: Yes: WNL Cardiovascular: Yes: Regular Rate and Rhythm, S1, S2 Respiratory: Yes: bilateral rales and rhonchi, no wheezing Gastrointestinal: Yes: Normal Bowel Sounds, Soft Extremities: Yes: WNL Edema: No Labs: Laboratory Results - last 24 hr 12/01/17 12/02/17 12/02/17 20:26 06:28 07:03 WBC 11.4 H RBC 3.88 Hgb 10.5 L Hct 32.7 MCV 84.5 MCH 27.0 MCHC 32.0 RDW 18.0 H Plt Count 309 MPV 7.7 Absolute Neuts (auto) 9.0 H Neutrophils % 78.8 Neutrophils % (Manual) 67.4 Band Neutrophils % 0.0 Lymphocytes % 16.6 Lymphocytes % (Manual) 22.1 Monocytes % 3.6 L Monocytes % (Manual) 3 L D Eosinophils % 0.8 D Eosinophils % (Manual) 2.1 D Basophils % 0.2 Basophils % (Manual) 1.0 D Myelocytes % (Man) 2 D Promyelocytes % (Man) 0 Blast Cells % (Manual) 0 Nucleated RBC % 0 Metamyelocytes 1 Hypochromia 0 Platelet Estimate Normal Polychromasia 1+ Poikilocytosis 0 Anisocytosis 1+ Microcytosis 1+ Macrocytosis 0 Sodium Potassium Chloride Carbon Dioxide Anion Gap BUN Creatinine Creat Clearance w eGFR POC Glucometer 399 84 Random Glucose Calcium 12/02/17 12/02/17 07:03 12:00 WBC RBC Hgb Hct MCV MCH MCHC RDW Plt Count MPV Absolute Neuts (auto) Neutrophils % Neutrophils % (Manual) Band Neutrophils % Lymphocytes % Lymphocytes % (Manual) Monocytes % Monocytes % (Manual) Eosinophils % Eosinophils % (Manual) Basophils % Basophils % (Manual) Myelocytes % (Man) Promyelocytes % (Man) Blast Cells % (Manual) Nucleated RBC % Metamyelocytes Hypochromia Platelet Estimate Polychromasia Poikilocytosis Anisocytosis Microcytosis Macrocytosis Sodium 143 Potassium 3.4 L Chloride 99 Carbon Dioxide 39 H Anion Gap 5 L BUN 22 H Creatinine 0.6 Creat Clearance w eGFR > 60 POC Glucometer 163 Random Glucose 63 L Calcium 8.0 L Assessment/Plan Problem List - Problems (1) Acute on chronic respiratory failure with hypoxia and hypercapnia Code(s): J96.21 - ACUTE AND CHRONIC RESPIRATORY FAILURE WITH HYPOXIA; J96.22 - ACUTE AND CHRONIC RESPIRATORY FAILURE WITH HYPERCAPNIA (2) COPD exacerbation Code(s): J44.1 - CHRONIC OBSTRUCTIVE PULMONARY DISEASE W (ACUTE) EXACERBATION (3) Interstitial lung disease Code(s): J84.9 - INTERSTITIAL PULMONARY DISEASE, UNSPECIFIED (4) Pulmonary sarcoidosis Code(s): D86.0 - SARCOIDOSIS OF LUNG (5) Chronic diastolic CHF (congestive heart failure) Code(s): I50.32 - CHRONIC DIASTOLIC (CONGESTIVE) HEART FAILURE Assessment/Plan Acute on Chronic Hypoxic and Hypercapneic Respiratory Failure Acute COPD Exacerbation Advanced Pulmonary/Cardiac Sarcoidosis LV Diastolic Dysfunction DVT S/P ICD DM - IV medrol same dose - inhaled bronchodilators standing and PRN - O2 to keep SpO2 >90% - EPAP increased to 8 cm H2O - glucose control while on systemic steroids - continue anticoagulation DR WAHL
[2017-12-02] MEDS: SENNOSIDES 8.6MG TABLET (FP) PO SCH (21:47)
[2017-12-02] MEDS: PANTOPRAZOLE 40 MG TABLET (FP) PO SCH (21:47)
[2017-12-02] MEDS: MONTELUKAST NA 10 MG TABLET PO SCH (21:48)
[2017-12-02] MEDS: INSULIN (LEVEMIR) 100 UNITS/ML UNITS SQ SCH (21:53)
[2017-12-03] MEDS: DOCUSATE SODIUM 100 MG CAPSULE (FP) PO SCH ×2 (06:11→14:37)
[2017-12-03] MEDS: METOCLOPRAMIDE HCL 10 MG TABLET (FP) PO SCH ×2 (06:11→14:38)
[2017-12-03] MEDS: SUCRALFATE 1 GM/10 ML UNIT DOSE CUPS PO SCH ×3 (06:11→16:43)
[2017-12-03] MEDS: INSULIN SLIDING SCALE (NOVOLOG) 1 VIAL SQ SCH ×3 (06:12→16:43)
[2017-12-03] MEDS: ARFORMOTEROL TARTRATE 15 MCG/2 ML VIAL NEB SCH (07:01)
[2017-12-03 08:09] LABS: BASO % 0.1 % (0-2.0); EOS % 0.6 % (0-4.5); HEMATOCRIT 32.8 % (32.4-45.2); HEMOGLOBIN 10.4 GM/dL (10.7-15.3); LYMPH % 22.9 % (8-40); MCH 26.8 pg (25.7-33.7); MCHC 31.8 g/dl (32.0-36.0); MEAN CELL VOLUME 84.3 fl (80-96); MEAN PLT VOLUME 7.5 fl (7.5-11.1); MONO % 4.2 % (3.8-10.2); NEUT % 72.2 % (42.8-82.8); PLATELET COUNT 321 K/MM3 (134-434); RDW 17.7 % (11.6-15.6); WHITE BLOOD COUNT 12.6 K/mm3 (4.0-10.0)
[2017-12-03 08:38] LABS: ALBUMIN 2.5 g/dl (3.4-5.0); ANION GAP 7 MMOL/L (8-16); BLOOD UREA NITROGEN 23 mg/dL (7-18); CALCIUM 8.3 mg/dL (8.5-10.1); CHLORIDE 97 mmol/L (98-107); CO2 40 mmol/L (21-32); GLUCOSE,RANDOM 72 mg/dL (74-106); POTASSIUM 3.4 mmol/L (3.5-5.1); SODIUM 144 mmol/L (136-145)
[2017-12-03 08:41] LABS: ALK PHOS 96 U/L (45-117); BILIRUBIN,TOTAL 0.2 mg/dL (0.2-1.0); CREATININE 0.6 mg/dL (0.55-1.02); SGOT/AST 11 U/L (15-37); SGPT/ALT 14 U/L (12-78); TOT PROT 6.2 g/dl (6.4-8.2)
--- NOTE | 2017-12-03 08:52 | DS ---
Physical Examination Vital Signs: Vital Signs Temperature 97.7 F 12/03/17 06:46 Pulse Rate 97 H 12/03/17 06:46 Respiratory Rate 20 12/03/17 06:46 Blood Pressure 92/58 12/03/17 06:46 O2 Sat by Pulse Oximetry (%) 97 12/03/17 07:01 Findings/Remarks: 62 year-old female with a PMH significant for HTN, HLD, pulmonary sarcoidosis/ ILD, chronic hypoxic respiratory failure, COPD, OSVALDO, diastolic heart failure, cardiac sarcoidosis, h/o multifocal atrial tachycardia and paroxysmal atrial tachycardia s/p ICD/PPM, h/o DVT on Eliquis, IDDM, hepatitis C, GERD, and recurrent diverticulitis. Admitted for presumptive PNA -- empirically treated until return of c/s Case discussed with ID - abx discontinued , bipap adjusted, increased steroids given at time of admission -- will now taper as out patient back to baseline of 30mg /day Arrangements for patient to transfer back to [facility] prior to d/c home Constitutional: Yes: Well Nourished, No Distress, Calm Eyes: Yes: Conjunctiva Clear, EOM Intact HENT: Yes: Atraumatic, Normocephalic Neck: Yes: Supple, Trachea Midline Cardiovascular: Yes: Regular Rate and Rhythm Respiratory: Yes: Diminished, On BiPap, On Nasal O2, Rhonchi Gastrointestinal: Yes: Normal Bowel Sounds Breast(s): Yes: WNL Musculoskeletal: Yes: Muscle Weakness Extremities: Yes: Other (atrophy lower extremities) Edema: No Peripheral Pulses WNL: Yes Wound/Incision: Yes: Reddened (groin / gluteal area), Excoriated Neurological: Yes: Alert, Oriented Psychiatric: Yes: Alert, Oriented Discharge Summary Reason For Visit: PNEUMONIA Current Active Problems Pneumonia (Acute) Condition: Fair - Instructions Referrals: Whit Fuchs MD [Primary Care Provider] - Disposition: LONG-TERM FACILITY - Home Medications Comprehensive Discharge Medication List: Ambulatory Orders Apixaban [Eliquis] 2.5 mg PO BID 11/28/17 Arformoterol Tartrate [Brovana] 15 mcg IH BID 11/28/17 Docusate Sodium [Colace] 200 mg PO TID 11/28/17 Erythromycin [Bhavik-Tab -] 500 mg PO Q6HPO 11/28/17 Insulin Detemir [Levemir Flextouch] 20 unit SQ HS 11/28/17 Lisinopril 10 mg PO DAILY 11/28/17 Mag Hydrox/Al Hydrox/Simeth [Mylanta Suspension -] 30 ml PO Q6H PRN 11/28/17 Metoclopramide HCl 5 mg PO TID 11/28/17 Metoprolol Tartrate [Lopressor] 25 mg PO BID 11/28/17 Montelukast Sodium [Singulair] 10 mg PO HS 11/28/17 Morphine *Sr* [Ms Contin -] 15 mg PO Q12H 11/28/17 Morphine Sulfate [Morphine Sulfate ER] 10 mg PO Q6H 11/28/17 Multivitamin [Multiple Vitamins] 1 each PO DAILY 11/28/17 Nitroglycerin [Nitrostat] 0.4 mg SL PRN PRN 11/28/17 Pantoprazole Sodium 40 mg PO HS 11/28/17 Polyethylene Glycol 3350 [Miralax (For Daily Use) -] 17 gm PO DAILY 11/28/17 Prednisone [Deltasone] 40 mg PO DAILY 11/28/17 Pregabalin [Lyrica] 25 mg PO BID 11/28/17 Sennosides [Senna] 8.6 mg PO HS 11/28/17 Sucralfate Oral Suspension [Carafate Oral Suspension -] 1 gm PO ASDIR 11/28/17 Vitamin E Acid Succinate [Vitamin E] 500 unit PO DAILY 11/28/17 Furosemide [Lasix -] 60 mg PO DAILY 11/30/17
[2017-12-03] MEDS: predniSONE 20 MG TABLET (UD) PO SCH (09:05)
[2017-12-03] MEDS: FUROSEMIDE 40 MG TABLET (FP) PO SCH (09:05)
[2017-12-03] MEDS: APIXABAN 2.5 MG TABLET PO SCH (09:06)
[2017-12-03] MEDS: METOPROLOL TARTRATE 50 MG TABLET (FP) PO SCH (09:06)
[2017-12-03] MEDS: PREGABALIN 75 MG CAPSULE PO SCH (09:06)
[2017-12-03] MEDS: POLYETHYLENE GLYCOL 3350 119 GM BTL PO SCH (09:07)
[2017-12-03] MEDS: LISINOPRIL 10 MG TABLET (FP) PO SCH (09:07)
[2017-12-03] MEDS: NYSTATIN POWDER 100,000 UNITS/GM - 15 GM TOPICAL POWDER TP SCH (09:07)
[2017-12-03] MEDS: SODIUM CHLORIDE NASAL SPRAY 44 ML BOTTLE NS PRN (09:07)
[2017-12-03] MEDS: morphine SO4 SUSTAINED ACTING 15 MG TABLET.SA PO SCH (09:07)
[2017-12-03] MEDS: ALBUTEROL SO4 2.5/IPRATROPIUM 0.5 INH SOL 3 ML VIAL.NEB. NEB PRN (09:08)
--- NOTE | 2017-12-03 09:48 | CON.ENT ---
Consult Consult Specialty:: ENT Referred by:: dm Reason for Consultation:: Nasal pain - History of Present Illness Chief Complaint: Nasal pain History of Present Illness: couple days of nasal discomfort, zane behind ethmoid area. 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: Yes: Dementia, Seizure Cardio/Vascular: Yes: AFIB, CHF, Deep Vein Thrombosis, HTN, Hyperlipdemia, Pulmonary Hypertension, Other (pulmonar Sarcoid / ILD / pulmoary fibrosis) Pulmonary: Yes: Asthma, COPD, Previously Intubated, Sleep Apnea, Pulmonary Fibrosis, O2 Dependent, Other Gastrointestinal: Yes: Diverticulitis, Diverticulosis, Gastritis, GERD, Other Hepatobiliary: Yes: Hepatitis C Infectious Disease: Yes: Other Psych: Yes: Anxiety, Depression Musculoskeletal: Yes: Chronic low back pain Rheumatology: Yes: Sarcoidosis (cardiac and pulmonary) Endocrine: Yes: Diabetes Mellitus Additional Medical History: in wheelchair after accident many years ago. Spinal cord stimulator. Multiple drug allergies. History of Ferrer José syndrome - Past Surgical History Past Surgical History: Yes: Laminectomy, AICD, Permanent Pacemaker - Alcohol/Substance Use Hx Alcohol Use: No History of Substance Use: reports: None - Smoking History Smoking history: Unknown if ever smoked Have you smoked in the past 12 months: No Aproximately how many cigarettes per day: 0 - Social History ADL: Support Services History of Recent Travel: No Home Medications - Allergies Allergies/Adverse Reactions: Allergies Allergy/AdvReac Type Severity Reaction Status Date / Time medroxyprogesterone acetate Allergy Severe stepehns Verified 11/28/17 14:30 [From Depo-Provera] josé syndrome amoxicillin trihydrate Allergy Verified 11/28/17 14:30 [From Augmentin] aspirin Allergy Verified 11/28/17 14:30 azithromycin [From Zithromax] Allergy Dewey Verified 11/28/17 14:30 José syndrome bacitracin Allergy Verified 11/28/17 14:30 ciprofloxacin HCl Allergy Verified 11/28/17 14:30 [From Cipro] clavulanic acid Allergy Verified 11/28/17 14:30 [From Augmentin] codeine [Codeine] Allergy Verified 11/28/17 14:30 Iodinated Contrast- Oral and Allergy Verified 11/28/17 14:30 IV Dye [IV Dye, Iodine Containing Contrast ] ketorolac tromethamine Allergy Verified 11/28/17 14:30 [From Toradol] levofloxacin [From Levaquin] Allergy Verified 11/28/17 14:30 metronidazole [From Flagyl] Allergy Verified 11/28/17 14:30 nalbuphine HCl [From Nubain] Allergy CYANOSIS Verified 11/28/17 14:30 potassium clavulanate Allergy Verified 11/28/17 14:30 [From Augmentin] Shellfish Allergy Verified 11/28/17 14:30 shellfish derived Allergy Verified 11/28/17 14:30 sulfamethoxazole Allergy Verified 11/28/17 14:30 [From Bactrim] trimethoprim [From Bactrim] Allergy Verified 11/28/17 14:30 - Home Medications Home Medications: Ambulatory Orders Apixaban [Eliquis] 2.5 mg PO BID 11/28/17 Arformoterol Tartrate [Brovana] 15 mcg IH BID 11/28/17 Docusate Sodium [Colace] 200 mg PO TID 11/28/17 Insulin Detemir [Levemir Flextouch] 20 unit SQ HS 11/28/17 Lisinopril 10 mg PO DAILY 11/28/17 Mag Hydrox/Al Hydrox/Simeth [[place] *SUSPENSION* -] 30 ml PO Q6H PRN 11/28/17 Metoclopramide HCl 5 mg PO TID 11/28/17 Metoprolol Tartrate [Lopressor] 25 mg PO BID 11/28/17 Montelukast Sodium [Singulair] 10 mg PO HS 11/28/17 Morphine *Sr* [Ms Contin -] 15 mg PO Q12H 11/28/17 Morphine Sulfate [Morphine Sulfate ER] 10 mg PO Q6H 11/28/17 Multivitamin [Multiple Vitamins] 1 each PO DAILY 11/28/17 Nitroglycerin [Nitrostat] 0.4 mg SL PRN PRN 11/28/17 Pantoprazole Sodium 40 mg PO HS 11/28/17 Polyethylene Glycol 3350 [Miralax 119 gm Btl -] 17 gm PO DAILY 11/28/17 Pregabalin [Lyrica] 25 mg PO BID 11/28/17 Sennosides [Senna] 8.6 mg PO HS 11/28/17 Sucralfate Oral Suspension [Carafate Oral Suspension -] 1 gm PO ASDIR 11/28/17 Vitamin E Acid Succinate [Vitamin E] 500 unit PO DAILY 11/28/17 Furosemide [Lasix -] 60 mg PO DAILY 11/30/17 Acetaminophen [Tylenol .Regular Strength -] 650 mg PO Q4H PRN tablet 12/03/17 Albuterol 2.5/Ipratropium 0.5 [Duoneb -] 1 amp NEB Q6H PRN amp 12/03/17 Furosemide [Lasix -] 60 mg PO DAILY tablet 12/03/17 Insulin Sliding Scale [Novolog Vial Sliding Scale -] 1 vial SQ ACHS units 12/03 Nystatin Powder [Nystop Powder -] 1 applic TP BID applic 12/03/17 Sodium Chloride Nasal [place] [[place] Nasal [place] -] 2 spray NS Q4H PRN spray 12/03/17 Sucralfate Oral Suspension [Carafate Oral Suspension -] 1 gm PO ACHS #0 ml 12/03 predniSONE [Deltasone -] 60 mg PO DAILY tablet 12/03/17 Family Disease History - Family Disease History Family Disease History: Other: Father (: cancer: no colon), Mother (3 CVAs, the first in her 60s) Physical Exam-ENT Vital Signs: Vital Signs Temperature 97.7 F 12/03/17 06:46 Pulse Rate 97 H 12/03/17 06:46 Respiratory Rate 20 12/03/17 06:46 Blood Pressure 92/58 12/03/17 06:46 O2 Sat by Pulse Oximetry (%) 97 12/03/17 07:01 Constitutional: Yes: Well Nourished, No Distress Head: Yes: WNL, Atraumatic Face: Yes: WNL, Symmetrical Eyes: Yes: WNL, Conjunctiva Clear Nose: Yes: WNL Nasal Passage: Yes: Other (Septal perf, bloody crusts) Oral/Pharynx: Yes: WNL Outer Ear: Yes: WNL Ear Canal: Yes: WNL Neck: Yes: WNL Problem List - Problems (1) Acute noninfective rhinitis Assessment/Plan: Nasal ointment and saline spray, f/u after d/c Code(s): J00 - ACUTE NASOPHARYNGITIS [COMMON COLD] Procedure Note Procedure: Nasal Endoscopy with lido/afrin, shows a large septal perforation, diffuse nasal crusts, no mass, nor lesions. No polyps. Middle meatus, inf meatus are clear. No mass or lesion of nasopharynx.
[2017-12-03] MEDS: MAG HYDROX/AL HYDROX/SIMETH -MYLANTA- ORAL SUSPENSION PO PRN ×2 (10:32→16:44)
[2017-12-03] MEDS ORDERED: MUPIROCIN 2% TOPICAL OINTMENT 22 GM TUBE TP SCH (14:00)
[2017-12-03 18:12] VITALS: BP 100/65; PULSE 90; TEMP 97.9
== END 2017-12-03 19:44 | DRG 139 ==
LOC: JER 12:20 → JERBED 17:15 → J4S 11-29 16:02
PROVIDERS: ADMIT Internal Medicine; ATTEND Family Medicine
DX: J18.9 Pneumonia, unspecified organism (principal); J96.21 Acute and chronic respiratory failure with hypoxia; J96.22 Acute and chronic respiratory failure with hypercapnia; I27.0 Primary pulmonary hypertension; J84.9 Interstitial pulmonary disease, unspecified; I11.0 Hypertensive heart disease with heart failure; I50.32 Chronic diastolic (congestive) heart failure; Z99.81 Dependence on supplemental oxygen; E11.65 Type 2 diabetes mellitus with hyperglycemia; J44.1 Chronic obstructive pulmonary disease with (acute) exacerbation; D86.89 Sarcoidosis of other sites; I47.1 Supraventricular tachycardia; D86.0 Sarcoidosis of lung; F03.90 Unspecified dementia, unspecified severity, without behavioral disturbance, psychotic disturbance, mood disturbance, and anxiety; Z86.718 Personal history of other venous thrombosis and embolism; E78.5 Hyperlipidemia, unspecified; J45.909 Unspecified asthma, uncomplicated; G47.33 Obstructive sleep apnea (adult) (pediatric); D64.9 Anemia, unspecified; Z79.01 Long term (current) use of anticoagulants; K21.9 Gastro-esophageal reflux disease without esophagitis; B19.20 Unspecified viral hepatitis C without hepatic coma; M54.5 Low back pain; Z87.891 Personal history of nicotine dependence; Z79.4 Long term (current) use of insulin; Z95.810 Presence of automatic (implantable) cardiac defibrillator; L60.0 Ingrowing nail; B35.1 Tinea unguium; J34.89 Other specified disorders of nose and nasal sinuses
CPT/HCPCS: 36415; 71045-TC-FY; 80048; 80053; 82962; 83036; 83605; 83735; 83880; 84100; 84484; 85025; 85610; 85730; 86850; 86900; 86901; 87040; 87070; 87205; 87899; 93005; 93010; 94640; 94660; 97116-GP; 97162-GP; 99285-25; J7620